=== PATIENT | female | born 1945 | race Caucasian/White ===

== ENCOUNTER 2016-09-21 21:23 | Inpatient (IN) | payer OTHER ==
[~2016-09-21] VITALS: Ht 160 cm; Wt 88.2 kg
[2016-09-21] MEDS ORDERED: METHYLPREDNISOLONE 125 MG VIAL IV STA (21:33)
--- NOTE | 2016-09-21 21:41 | EMERGENCY ROOM VISIT NOTE ---
History Report prepared by Bianka: Jeanine Martinez Under the Supervision of: Dr. Larry Moore D.O. First contact with patient: 21:28 Chief Complaint: SHORTNESS OF BREATH Stated Complaint: RESPIRATORY DISTRESS W/CPAP Nursing Triage Summary: sob started today History of Present Illness The patient is a 71 year old female who presents to the Emergency Room via ALS with complaints of worsening SOB starting earlier today ASSISTANT TO THE DIRECTOR. HPI is limited due to dyspnea. The patient stated that she was released from [facility] 5 days ago for respiratory problems. The patient states that she has some rib pain but denies any abdominal pain or new leg swelling recently. She states she has a history of COPD and CHF. Source of History: patient History Limited By: dyspnea Onset: earlier today ASSISTANT TO THE DIRECTOR Position: other (global ) Timing: worsening Associated Symptoms: No abdominal pain Note: Associated symptoms: rib pain Review of Systems See HPI for pertinent positives & negatives. A total of 10 systems reviewed and were otherwise negative. Past Medical & Surgical Medical Problems: (1) Acid reflux (2) CHF (congestive heart failure) (3) COPD (chronic obstructive pulmonary disease) (4) Meningitis (5) Ovarian cancer Family History No pertient family history secondary to age Social History Smoking Status: Former Smoker (quit 4 years ago) Smokeless Tobacco Use: No Alcohol Use: none Drug Use: none Housing Status: lives with family Current/Historical Medications Scheduled Calcium Carbonate-Cholecalcife (Oyster Shell Calcium + D), 1 TAB PO QAM Clonazepam (Clonazepam), 0.5 MG PO NOON Fluticasone Propionate (Nasal) (Flonase Allergy Relief), 1 SPRAY NA DAILY Furosemide (Lasix), 20 MG PO QAM Gabapentin (Neurontin), 300 MG PO BID Ipratropium-Albuterol (Duoneb), 1 TREATMENT INH QID Levothyroxine Sodium (Synthroid), 25 MCG PO QAM Meloxicam (Meloxicam), 7.5 MG PO BID Metformin Hcl (Glucophage), 500 MG PO BID Mirtazapine (Remeron), 45 MG PO HS Mometasone Furoate-Formoterol (Dulera 200/5 Mcg), 1 PUFF INH BID Montelukast Sodium (Singulair), 10 MG PO HS Multiple Vitamins W/ Iron (Multi Vitamin with Iron), 1 TAB PO QAM Pantoprazole (Protonix), 40 MG PO QAM Potassium Chloride (Klor-Con M20), 20 MEQ PO BID Quetiapine Fumarate (Seroquel), 400 MG PO HS Ranitidine (Zantac), 150 MG PO QPM Tiotropium [place] (Spiriva Handihaler), 1 CAP INH DAILY Warfarin Sod (Coumadin), 2.5 MG PO DAILY@1800 Warfarin Sodium (Coumadin), 4 MG PO DAILY@1800 Allergies Coded Allergies: Rabies Vaccine (Unverified Allergy, Severe, HIVES, 09/21/16) Ragweed (Unverified Allergy, Unknown, UNKNOWN, 09/21/16) Tomato (Unverified Allergy, Unknown, HIVES, 09/21/16) Physical Exam Vital Signs Date Time Temp Pulse Resp B/P Pulse Ox O2 Delivery O2 Flow Rate FiO2 09/21/16 23:01 91 09/21/16 22:32 137/51 100 Nebulizer 09/21/16 22:28 90 17 100 09/21/16 22:23 98 24 09/21/16 21:58 96 Nasal Cannula 3.0 09/21/16 21:53 74 19 100 09/21/16 21:51 73 22 95 Room Air 09/21/16 21:32 78 09/21/16 21:28 36.9 78 18 146/91 95 Room Air 09/21/16 21:28 Room Air 09/21/16 21:28 96 Room Air 09/21/16 21:26 146/91 Physical Exam GENERAL: Patient is awake, alert, very anxious appearing. EYES: The conjunctivae are clear. The pupils are round and reactive. EARS, NOSE, MOUTH AND THROAT: The nose is without any evidence of any deformity. Mucous membranes are moist tongue is midline NECK: The neck is nontender and supple. RESPIRATORY: Lung sounds diminished throughout, expiratory wheezing throughout. Significant purse lip breathing with severe conversation dyspnea. CARDIOVASCULAR: Tachycardic but regular rhythm noted with no definite murmurs noted. GASTROINTESTINAL: The abdomen is soft. Bowel sounds are present in all quadrants. Abdomen is nontender MUSCULOSKELETAL/EXTREMITIES: There is no evidence of gross deformity full range of motion is noted in the hips and shoulders SKIN: There is no obvious evidence of any rash. There are no petechiae, pallor or cyanosis noted. Pedal edema bilaterally. NEUROLOGIC: Patient is awake alert and oriented x3 RECTAL: reveals brown stool that was heme negative. Medical Decision & Procedures ER Provider Diagnostic Interpretation: X-ray results as stated below per interpretation by me and the radiologist. CHEST ONE VIEW PORTABLE CLINICAL HISTORY: Respiratory distress. Dyspnea. COMPARISON STUDY: No previous studies for comparison. FINDINGS: Lung volumes are normal. There is no pneumothorax or pleural effusion. Apparent hazy bibasilar opacities are likely artifactual. Cardiac size is normal. Mediastinal contours are normal. There is no evidence of pulmonary edema. IMPRESSION: 1. No acute cardiopulmonary findings. 2. Apparent hazy bibasilar opacities which likely reflect artifact or atelectasis. Electronically signed by: Rick Canchola M.D. 09/21/2016 9:57 PM Dictated Date/Time: 09/21/2016 9:56 PM Laboratory Results 09/21/16 21:34 Red Blood Count 3.38, Mean Corpuscular Volume 82.2, Mean Corpuscular Hemoglobin 24.9, Mean Corpuscular Hemoglobin Concent 30.2, Mean Platelet Volume 8.6, Neutrophils (%) (Auto) 52.1, Lymphocytes (%) (Auto) 29.3, Monocytes (%) (Auto) 8.8, Eosinophils (%) (Auto) 9.1, Basophils (%) (Auto) 0.5, Neutrophils # (Auto) 4.56, Lymphocytes # (Auto) 2.57, Monocytes # (Auto) 0.77, Eosinophils # (Auto) 0.80, Basophils # (Auto) 0.04 09/21/16 21:34 Test 09/21/16 21:34 09/21/16 21:59 White Blood Count 8.76 K/uL (4.8-10.8) Red Blood Count 3.38 M/uL (4.2-5.4) Hemoglobin 8.4 g/dL (12.0-16.0) Hematocrit 27.8 % (37-47) Mean Corpuscular Volume 82.2 fL (80-100) Mean Corpuscular Hemoglobin 24.9 pg (25-34) Mean Corpuscular Hemoglobin Concent 30.2 g/dl (32-36) Platelet Count 327 K/uL (130-400) Mean Platelet Volume 8.6 fL (7.4-10.4) Neutrophils (%) (Auto) 52.1 % Lymphocytes (%) (Auto) 29.3 % Monocytes (%) (Auto) 8.8 % Eosinophils (%) (Auto) 9.1 % Basophils (%) (Auto) 0.5 % Neutrophils # (Auto) 4.56 K/uL (1.4-6.5) Lymphocytes # (Auto) 2.57 K/uL (1.2-3.4) Monocytes # (Auto) 0.77 K/uL (0.11-0.59) Eosinophils # (Auto) 0.80 K/uL (0-0.5) Basophils # (Auto) 0.04 K/uL (0-0.2) RDW Standard Deviation 50.7 fL (36.4-46.3) RDW Coefficient of Variation 16.9 % (11.5-14.5) Immature Granulocyte % (Auto) 0.2 % Immature Granulocyte # (Auto) 0.02 K/uL (0.00-0.02) Red Blood Cell Morphology Unremarkable Prothrombin Time 22.6 SECONDS (9.0-12.0) Prothromb Time International Ratio 2.0 (0.9-1.1) Activated Partial Thromboplast Time 31.9 SECONDS (21.0-31.0) Partial Thromboplastin Ratio 1.2 Anion Gap 9.0 mmol/L (3-11) Est Creatinine Clear Calc Drug Dose 56.1 ml/min Estimated GFR () 67.6 Estimated GFR (Non- 58.3 BUN/Creatinine Ratio 24.0 (10-20) Calcium Level 8.9 mg/dl (8.5-10.1) Total Bilirubin 0.2 mg/dl (0.2-1) Aspartate Amino Transf (AST/SGOT) 18 U/L (15-37) Alanine Aminotransferase (ALT/SGPT) 25 U/L (12-78) Alkaline Phosphatase 86 U/L (45-117) Troponin I < 0.015 ng/ml (0-0.045) Pro-B-Type Natriuretic Peptide 80 pg/ml (0-900) Total Protein 6.4 gm/dl (6.4-8.2) Albumin 3.2 gm/dl (3.4-5.0) Globulin 3.2 gm/dl (2.5-4.0) Albumin/Globulin Ratio 1.0 (0.9-2) Venous Blood pH 7.41 (7.36-7.41) Venous Blood Partial Pressure CO2 52 mmHg (38.0-50.0) Venous Blood Partial Pressure O2 91 mmHg Venous Blood HCO3 32 mmol/L Venous Blood Oxygen Saturation 96.0 % Venous Blood Base Excess 6.9 mmol/L Laboratory results per my review. Medications Administered Medications (Trade) Dose Ordered Sig/Lulú Route Start Time Stop Time Status Last Admin Dose Admin Albuterol/ Ipratropium (Duoneb) 12 ml ONE ONCE INH 09/21/16 21:45 09/21/16 21:46 DC 09/21/16 21:45 12 ML Methylprednisolone Sodium Succinate (Solu-Medrol IV) 125 mg NOW STAT IV 09/21/16 21:33 09/21/16 21:34 DC 09/21/16 21:49 125 MG ECG Indication: SOB/dyspnea Rate (beats per minute): 78 Rhythm: sinus rhythm Findings: no acute ischemic change, no ectopy Comparison ECG Date: no prior available ED Course 2123: The patient was evaluated in room B1. A complete history and physical examination were performed. 2132: Ordered Solu-Medrol IV 125 mg IV. 2144:Ordered Duoneb 12 ml INH. 2222: I discussed the case with Dr. Jaymie SPEAR Hospitalist. He agreed to evaluate the patient for further management and care. Medical Decision Differential diagnosis: Etiologies such as infections, reactive airway disease, pneumonia, pneumothorax , COPD, CHF, cardiac ischemia, pulmonary embolism, musculoskeletal, gastrointestinal, as well as others were entertained. Nursing notes reviewed. Additional history is obtained from the prehospital personnel. The patient is a 71-year-old female who presented to the emergency department for an evaluation of shortness of breath. The patient has a history of COPD and was having severe shortness of breath. She was found have hypoxia by the prehospital personnel prior to arrival. She was placed on BiPAP and given a nebulizer treatment. Upon arrival her oxygen saturation had improved but she still had significant respiratory distress. The patient was further treated with bronchodilator therapy as well as IV Solu-Medrol. On reevaluation she had significantly improved. I discussed the patient's laboratory and radiographic studies with her. She had no signs of pneumonia. She had no fever or elevated white blood cell count. She was found have anemia which could be adding to her shortness of breath but her rectal exam revealed heme negative stool. The patient was resting much more comfortably. I discussed her case with the on- call [facility] hospitalist group. They have agreed to evaluate the patient in the emergency apartment for further management and disposition. Consults Time Called: 2224 Consulting Physician: Dr. Jaymie SPEAR Hospitalist Returned Call: [phone] I discussed the case with Dr. Jaymie SPEAR Hospitalist. He agreed to evaluate the patient for further management and care. Impression Primary Impression: COPD exacerbation Additional Impressions: Hypoxia, Anemia Scribe Attestation The scribe's documentation has been prepared under my direction and personally reviewed by me in its entirety. I confirm that the note above accurately reflects all work, treatment, procedures, and medical decision making performed by me. Departure Information Dispostion Being Evaluated By Hospitalist Referrals No Doctor, Assigned (PCP)
[2016-09-21] MEDS ORDERED: ALBUT/IPRATROP 3MG/0.5MG NEB 3 ML VIAL INH ONE (21:45)
[2016-09-21 21:51] VITALS: PULSE 73; O2SAT 95
[2016-09-21 21:51] LABS: BASO % 0.5 %; BASO ABS # 0.04 K/uL (0-0.2); EOS % 9.1 %; HEMATOCRIT 27.8 % (37-47); IG% 0.2 %; LYMPH % 29.3 %; LYMPH ABS # 2.57 K/uL (1.2-3.4); MEAN CELL VOLUME 82.2 fL (80-100); MEAN CORPUSCULAR HEMOGLOBIN 24.9 pg (25-34); MEAN CORPUSCULAR HGB CONC 30.2 g/dl (32-36); MEAN PLATELET VOLUME 8.6 fL (7.4-10.4); MONO % 8.8 %; NEUT % 52.1 %; PLATELET COUNT 327 K/uL (130-400); RED BLOOD COUNT 3.38 M/uL (4.2-5.4); WHITE BLOOD COUNT 8.76 K/uL (4.8-10.8)
--- NOTE | 2016-09-21 21:59 | DIAGNOSTIC IMAGING REPORT ---
CHEST ONE VIEW PORTABLE CLINICAL HISTORY: Respiratory distress. Dyspnea. COMPARISON STUDY: No previous studies for comparison. FINDINGS: Lung volumes are normal. There is no pneumothorax or pleural effusion. Apparent hazy bibasilar opacities are likely artifactual. Cardiac size is normal. Mediastinal contours are normal. There is no evidence of pulmonary edema. IMPRESSION: 1. No acute cardiopulmonary findings. 2. Apparent hazy bibasilar opacities which likely reflect artifact or atelectasis. Electronically signed by: Rick Canchola M.D. 09/21/2016 9:57 PM Dictated Date/Time: 09/21/2016 9:56 PM
[2016-09-21 22:08] LABS: ALT/SGPT 25 U/L (12-78); BLOOD UREA NITROGEN 23 mg/dl (7-18); CALCIUM 8.9 mg/dl (8.5-10.1); CARBON DIOXIDE 32 mmol/L (21-32); CHLORIDE 104 mmol/L (98-107); CREATININE 0.97 mg/dl (0.60-1.20); GLUCOSE 159 mg/dl (70-99); POTASSIUM 3.7 mmol/L (3.5-5.1); SODIUM 145 mmol/L (136-145)
[2016-09-21 22:10] LABS: PARTIAL THROMBOPLASTIN RATIO 1.2; PROTHROMBIN TIME (PATIENT) 22.6 SECONDS (9.0-12.0)
[2016-09-21 22:11] LABS: VEN BLOOD GAS BASE EXCESS 6.9 mmol/L
[2016-09-21 22:13] LABS: ALKALINE PHOSPHATASE 86 U/L (45-117); AST/SGOT 18 U/L (15-37)
[2016-09-21 22:28] LABS: COMPLETE YES
[2016-09-21] MEDS ORDERED: MBC75 PO (23:05)
[2016-09-21] MEDS ORDERED: IPRASOL4 INH (23:05)
[2016-09-21] MEDS ORDERED: PANT40TA PO (23:05)
[2016-09-21] MEDS ORDERED: WARF4TAB PO (23:05)
[2016-09-21] MEDS ORDERED: GABA-113 PO (23:05)
[2016-09-21] MEDS ORDERED: QUET400T PO (23:05)
[2016-09-21] MEDS ORDERED: GLC/500 PO (23:05)
[2016-09-21] MEDS ORDERED: ZNTT/150 PO (23:05)
[2016-09-21] MEDS ORDERED: MCRK20 PO (23:05)
[2016-09-21] MEDS ORDERED: LEVO25TA PO (23:05)
[2016-09-21] MEDS ORDERED: MOME200A INH (23:05)
[2016-09-21] MEDS ORDERED: FLUT0.15 NAE (23:05)
[2016-09-21] MEDS ORDERED: MULT-1028 PO (23:05)
[2016-09-21] MEDS ORDERED: KLN5 PO (23:05)
[2016-09-21] MEDS ORDERED: MONT1TAB3 PO (23:05)
[2016-09-21] MEDS ORDERED: MIRT45TA PO (23:05)
[2016-09-21] MEDS ORDERED: CALC-211 PO (23:05)
[2016-09-21] MEDS ORDERED: FURO-85 PO (23:05)
[2016-09-21] MEDS ORDERED: CMD/25 PO (23:05)
[2016-09-21] MEDS ORDERED: SPRIN/30 INH (23:05)
[2016-09-21] MEDS ORDERED: QUET1TAB13 PO (23:06)
[2016-09-21] MEDS ORDERED: MoRPHine SULFATE 2 MG/ML CARP IV PRN (23:15)
[2016-09-21] MEDS ORDERED: POLYETHYLENE (MIRALAX) 17 GM PACK PO PRN (23:15)
[2016-09-21] MEDS ORDERED: NITROGLYCERIN 0.4 MG SL PER TAB CHARGE SL PRN (23:15)
[2016-09-21] MEDS ORDERED: ACETAMINOPHEN 325 MG TAB PO PRN (23:15)
[2016-09-21] MEDS ORDERED: ONDANSETRON INJ 2 MG/ML 2 ML VIAL IV PRN (23:15)
[2016-09-21] MEDS ORDERED: ALUMINUM/MAGNESIUM/SIMETH (MAALOX MAX) 30 ML UDC PO PRN (23:15)
[2016-09-21] MEDS ORDERED: MAGNESIUM HYDROXIDE SUSP 30 ML UDC PO PRN (23:15)
--- NOTE | 2016-09-21 23:49 | History and Physical ---
History & Physical Date & Time of Service: Sep 21, 2016 at 23:19 Chief Complaint: Respiratory Distress W/Cpap Primary Care Physician: No Doctor, Assigned History of Present Illness Source: patient 71 y/o F Hx, CHF, CAD, PEs, 02-dependent COPD. Pt states she has been to [facility] several times recently for COPD exacerbations. She has returned home only to worsen within a few days. Tonight she again became progressively SOB and called EMS. She appeared distressed with an 02 in the high 80s and was placed on Bipap and transported to [facility] - the family having requested not to return to [place]. She denies CP, denies a fever. She has a chronic productive cough. Following an hour-long neb, she is not requiring Bipap at the time of admission. Past Medical/Surgical History Medical Problems: (1) Acid reflux Status: Chronic (2) CHF (congestive heart failure) Status: Chronic - diagnosed 04/29 - no echo report available (3) COPD (chronic obstructive pulmonary disease) Status: Chronic Dependent on 2L 02 continuous (4) Meningitis Status: Resolved (5) Ovarian cancer Status: Resolved 6) PEs 06/29 - on coumadin 7) Hypothyroid 8) NIDDM Family History No pertient family history secondary to age Both parents owing to MIs Social History Pt quit smoking 2011 - 30+ pack year Hx - denies ETOH - maintains independence - daughters participate in care Smoking Status: Former Smoker (quit 4 years ago) Smokeless Tobacco Use: No Drug Use: none Allergies Coded Allergies: Rabies Vaccine (Unverified Allergy, Severe, HIVES, 09/21/16) Ragweed (Unverified Allergy, Unknown, UNKNOWN, 09/21/16) Tomato (Unverified Allergy, Unknown, HIVES, 09/21/16) Home Medications Scheduled Calcium Carbonate-Cholecalcife (Oyster Shell Calcium + D), 1 TAB PO QAM Clonazepam (Clonazepam), 0.5 MG PO NOON Fluticasone Propionate (Nasal) (Flonase Allergy Relief), 1 SPRAY NA DAILY Furosemide (Lasix), 20 MG PO QAM Gabapentin (Neurontin), 300 MG PO BID Ipratropium-Albuterol (Duoneb), 1 TREATMENT INH QID Levothyroxine Sodium (Synthroid), 25 MCG PO QAM Meloxicam (Meloxicam), 7.5 MG PO BID Metformin Hcl (Glucophage), 500 MG PO BID Mirtazapine (Remeron), 45 MG PO HS Mometasone Furoate-Formoterol (Dulera 200/5 Mcg), 1 PUFF INH BID Montelukast Sodium (Singulair), 10 MG PO HS Multiple Vitamins W/ Iron (Multi Vitamin with Iron), 1 TAB PO QAM Pantoprazole (Protonix), 40 MG PO QAM Potassium Chloride (Klor-Con M20), 20 MEQ PO BID Quetiapine Fumarate (Seroquel), 400 MG PO HS Ranitidine (Zantac), 150 MG PO QPM Tiotropium [place] (Spiriva Handihaler), 1 CAP INH DAILY Warfarin Sod (Coumadin), 2.5 MG PO DAILY@1800 Warfarin Sodium (Coumadin), 4 MG PO DAILY@1800 Review of Systems Constitutional: No chills, No fever Eyes: No worsening of vision ENT: No hearing loss, No nasal symptoms, No unusual epistaxis Respiratory: + cough, + dyspnea at rest, + dyspnea on exertion, + shortness of breath, + sputum, + wheezing Cardiovascular: No PND, No chest pain, No orthopnea Abdomen: No nausea, No pain, No vomiting Musculoskeletal: No joint pain Genitourinary - Female: No dysuria, No urinary frequency, No urinary urgency Neurologic: No memory loss Psychiatric: No depression symptoms Endocrine: No fatigue Hematologic / Lymphatic: No abnormal bleeding/bruising Integumentary: No rash Allergic / Immunologic: No environmental allergies Physical Exam Vital Signs Date Time Temp Pulse Resp B/P Pulse Ox O2 Delivery O2 Flow Rate FiO2 09/21/16 23:01 91 09/21/16 22:32 137/51 100 Nebulizer 09/21/16 22:28 90 17 100 09/21/16 22:23 98 24 09/21/16 21:58 96 Nasal Cannula 3.0 09/21/16 21:53 74 19 100 09/21/16 21:51 73 22 95 Room Air 09/21/16 21:32 78 09/21/16 21:28 36.9 78 18 146/91 95 Room Air 09/21/16 21:28 Room Air 09/21/16 21:28 96 Room Air 09/21/16 21:26 146/91 General Appearance: WD/WN, + pertinent finding (Overweight elderly female - comlpleteing sentences - no overt distress) Head: normocephalic, atraumatic Eyes: normal inspection ENT: normal ENT inspection, pharynx normal Neck: supple, no JVD Respiratory/Chest: chest non-tender, + decreased breath sounds, + wheezing Cardiovascular: regular rate, rhythm, no JVD, no murmur Abdomen/GI: normal bowel sounds, non tender, soft Back: normal inspection, no CVA tenderness, no muscle spasm, normal range of motion Extremities/Musculoskelatal: normal inspection, normal range of motion Neurologic/Psych: driver guard II-XII nml as tested, no motor/sensory deficits, alert, normal mood/affect, normal reflexes, oriented x 3 Skin: normal color, warm/dry, no rash Diagnostics Laboratory Results Results Past 24 Hours Test 09/21/16 21:34 09/21/16 21:59 Range/Units White Blood Count 8.76 4.8-10.8 K/uL Red Blood Count 3.38 4.2-5.4 M/uL Hemoglobin 8.4 12.0-16.0 g/dL Hematocrit 27.8 37-47 % Mean Corpuscular Volume 82.2 80-100 fL Mean Corpuscular Hemoglobin 24.9 25-34 pg Mean Corpuscular Hemoglobin Concent 30.2 32-36 g/dl Platelet Count 327 130-400 K/uL Mean Platelet Volume 8.6 7.4-10.4 fL Neutrophils (%) (Auto) 52.1 % Lymphocytes (%) (Auto) 29.3 % Monocytes (%) (Auto) 8.8 % Eosinophils (%) (Auto) 9.1 % Basophils (%) (Auto) 0.5 % Neutrophils # (Auto) 4.56 1.4-6.5 K/uL Lymphocytes # (Auto) 2.57 1.2-3.4 K/uL Monocytes # (Auto) 0.77 0.11-0.59 K/uL Eosinophils # (Auto) 0.80 0-0.5 K/uL Basophils # (Auto) 0.04 0-0.2 K/uL RDW Standard Deviation 50.7 36.4-46.3 fL RDW Coefficient of Variation 16.9 11.5-14.5 % Immature Granulocyte % (Auto) 0.2 % Immature Granulocyte # (Auto) 0.02 0.00-0.02 K/uL Red Blood Cell Morphology Unremarkable Prothrombin Time 22.6 9.0-12.0 SECONDS Prothromb Time International Ratio 2.0 0.9-1.1 Activated Partial Thromboplast Time 31.9 21.0-31.0 SECONDS Partial Thromboplastin Ratio 1.2 Sodium Level 145 136-145 mmol/L Potassium Level 3.7 3.5-5.1 mmol/L Chloride Level 104 98-107 mmol/L Carbon Dioxide Level 32 21-32 mmol/L Anion Gap 9.0 3-11 mmol/L Blood Urea Nitrogen 23 7-18 mg/dl Creatinine 0.97 0.60-1.20 mg/dl Est Creatinine Clear Calc Drug Dose 56.1 ml/min Estimated GFR () 67.6 Estimated GFR (Non- 58.3 BUN/Creatinine Ratio 24.0 10-20 Random Glucose 159 70-99 mg/dl Calcium Level 8.9 8.5-10.1 mg/dl Total Bilirubin 0.2 0.2-1 mg/dl Aspartate Amino Transf (AST/SGOT) 18 15-37 U/L Alanine Aminotransferase (ALT/SGPT) 25 12-78 U/L Alkaline Phosphatase 86 45-117 U/L Troponin I < 0.015 0-0.045 ng/ml Pro-B-Type Natriuretic Peptide 80 0-900 pg/ml Total Protein 6.4 6.4-8.2 gm/dl Albumin 3.2 3.4-5.0 gm/dl Globulin 3.2 2.5-4.0 gm/dl Albumin/Globulin Ratio 1.0 0.9-2 Venous Blood pH 7.41 7.36-7.41 Venous Blood Partial Pressure CO2 52 38.0-50.0 mmHg Venous Blood Partial Pressure O2 91 mmHg Venous Blood HCO3 32 mmol/L Venous Blood Oxygen Saturation 96.0 % Venous Blood Base Excess 6.9 mmol/L Microbiology Results 09/21/16 Blood Culture, Received Pending 09/21/16 Blood Culture, Received Pending Impression Assessment and Plan 71 y/o F Hx, CHF, CAD, PEs, 02-dependent COPD. Pt states she has been to [facility] several times recently for COPD exacerbations. She has returned home only to worsen within a few days. Tonight she again became progressively SOB and called EMS. She appeared distressed with an 02 in the high 80s and was placed on Bipap and transported to [facility] - the family having requested not to return to [place]. She denies CP, denies a fever. She has a chronic productive cough. Following an hour-long neb, she is not requiring Bipap at the time of admission. 1) COPD exacerbation - Maintaining sat after hour-long neb, steroids and Bipap - ABG shows C02 retention with normal PH so that this is likely chronic. Considering her habitus she may also suffer from occult VIJAY. We will admit the pt to telemetry - treat with Solumedrol, Duonebs/PRN Albuterol , Abx - would make an effort to contact her lidar scientist AM as she reports several recent hospital visit and further workup such as a CT chest might be avoided if recently obtained. 2) CHF - cont Lasix - no evidence of volume overload at present - does not know type or extent - can be obtained from PCP likely as [place] was apparently unhelpful with records this evening. 3) Recent PEs - pt on Coumadin - INR is therapeutic 4) NIDDM - placed on SS due to steroid use in hospital 5) Hypothyroid - cont synthroid 6) Gerd - takes protonix and Ranitidine - continued Full code -- Coumadin prophylaxis/PE treatment Total time for this admit including review of records, meds, labs, imaging - discussion with pt and family - pt exam - 43 min Level of Care Telemetry Resuscitation Status FULL RESUSCITATION VTE Prophylaxis VTE Risk Assessment Done? Y/N: Yes Risk Level: Moderate Given or contraindicated: Warfarin (Coumadin)
[2016-09-22] VITALS (16 sets, daily range): BP systolic 115–157; BP diastolic 53–82; PULSE 70–111; TEMP 36.6–37.1; O2SAT 91–99; BMI 35.5
[2016-09-22] MEDS: ALBUTEROL 0.083% NEBU SOLN 3 ML VIAL INH PRN ×3 (01:01→23:52)
[2016-09-22] MEDS ORDERED: GLUCOSE 10 TABS/TUBE PO PRN (02:15)
[2016-09-22] MEDS ORDERED: GLUCAGON FOR INJ 1 MG VIAL SQ PRN (02:15)
[2016-09-22] MEDS ORDERED: DEXTROSE 50% 50 ML SYR IV PRN (02:15)
[2016-09-22] MEDS ORDERED: GLUCOSE 40% GEL 15 GM TUBE PO PRN (02:15)
[2016-09-22] MEDS ORDERED: LEVOFLOXACIN / D5W 500 MG in PREMIXED IN D5W 100 ML IV SCH (03:00)
[2016-09-22] MEDS: METHYLPREDNISOLONE IV 60 MG in SYRINGE 0 ML IV SCH ×4 (03:12→21:32)
[2016-09-22] MEDS: LEVOTHYROXINE 25 MCG TAB PO SCH (06:19)
[2016-09-22 06:35] LABS: HEMATOCRIT 29.5 % (37-47); MEAN CELL VOLUME 81.7 fL (80-100); MEAN CORPUSCULAR HEMOGLOBIN 25.5 pg (25-34); MEAN CORPUSCULAR HGB CONC 31.2 g/dl (32-36); MEAN PLATELET VOLUME 8.9 fL (7.4-10.4); PLATELET COUNT 367 K/uL (130-400); RED BLOOD COUNT 3.61 M/uL (4.2-5.4); WHITE BLOOD COUNT 8.34 K/uL (4.8-10.8)
[2016-09-22 06:43] LABS: PROTHROMBIN TIME (PATIENT) 22.2 SECONDS (9.0-12.0)
[2016-09-22 07:05] LABS: BUN/CREATININE RATIO 19.5 (10-20); CALCIUM 8.9 mg/dl (8.5-10.1); CREATININE 0.99 mg/dl (0.60-1.20); MAGNESIUM 1.7 mg/dl (1.8-2.4)
[2016-09-22] MEDS: ALBUT/IPRATROP 3MG/0.5MG NEB 3 ML VIAL INH SCH ×4 (07:20→19:06)
[2016-09-22] MEDS: MELOXICAM 7.5 MG TAB PO SCH ×2 (08:54→21:36)
[2016-09-22] MEDS: PANTOprazole SOD 40 MG TAB PO SCH (08:54)
[2016-09-22] MEDS: POTASSIUM CHLORIDE 20 MEQ TABCR PO SCH ×2 (08:55→21:35)
[2016-09-22] MEDS: GABAPENTIN 300 MG CAP PO SCH ×2 (08:55→21:37)
[2016-09-22] MEDS: FLUTICASONE PROPIONATE NA SPR 16 GM BTL SCH (08:56)
[2016-09-22] MEDS ORDERED: FUROSEMIDE 20 MG TAB PO SCH (09:00)
[2016-09-22] MEDS: CLONAZEPAM 0.5 MG TAB PO SCH (09:05)
[2016-09-22] MEDS: INSULIN ASPART 100 UNITS/ML 3 ML PEN SC SCH ×4 (09:10→21:43)
[2016-09-22 09:41] LABS: URINE APPEARANCE CLOUDY (CLEAR); URINE BILIRUBIN NEG (NEG); URINE COLOR YELLOW; URINE EPITHELIAL CELL AUTO 20-30 /lpf (0-5); URINE NITRITE NEG (NEG); URINE SPECIFIC GRAVITY 1.026 (1.000-1.030); UROBILINOGEN NEG (NEG)
[2016-09-22 09:42] LABS: MANUAL MICROSCOPIC REQUIRED? NO; REVIEW REQ? NO
--- NOTE | 2016-09-22 10:54 | Clinical Documentation Query ---
CLINICAL DOCUMENTATION QUERY 71-y/o female who presents acute hypoxic respiratory failure from COPD exacerbation and CHF.. Medical record has documented hx of CHF w/o specificity. The medical record documentation is now expected to include definitive and explicit description of the patient's heart failure; vague terms such as "heart failure," ventricular dysfunction," and "CHF" may not fully capture the physician's intended level of severity. In your clinical opinion is this patient being managed for: ( x ) Early Acute on chronic diastolic heart failure treated with increase in PO Lasix dosing ( ) Early Acute on chronic systolic CHF treated with increase in PO Lasix dosing ( ) Other explanation of clinical findings (Please Explain) ( ) Unable to determine (Please Define) ( ) Need to Discuss ( ) Not Agree The medical record reflects the following clinical findings, treatment, and risk factors. Clinical Indicators: Per H&P CHF. 08/22 Progress note states, "seems to have sl pulmonary edema (CXR w fluid on fissure, having some orthopnea)." Then summarizes acute hypoxic respiratory failure from COPD and CHF. Treatment: PO Lasix with increase in dose and NOW order, telemetry, I/O's, daily weights, Echo Risk Factors: Age, Afib, CAD, Please clarify and document your clinical opinion in the progress notes and discharge summary. Terms such as "probable", "suspected", "likely", "questionable", "possible", or "still to be ruled out" are acceptable. IF IN AGREEMENT, YOU MUST DOCUMENT ABOVE DIAGNOSTIC STATEMENT IN DAILY PROGRESS NOTES AND DISCHARGE SUMMARY. This document is not part of the patient's record. Thank You, Dale Magana, KAM [phone]
--- NOTE | 2016-09-22 11:44 | Medical Student: [facility] ---
Med Student Progress Note Date of Service Sep 22, 2016. Subjective Pt evaluation today including: conversation w/ patient, physical exam, chart review, lab review, review of studies Pain: no pain reported Patient reports being in and out of [facility] since April of 2016. She rarely has been able to spend more than a week at home before returning to the hospital for shortness of breath. She was admitted her last night for shortness of breath. Since admission and receiving some treatments, she reports feeling less SOB today. She still has dyspnea on exertion, even just moving around in bed or going to the bathroom. Reports that her dyspnea is worse at night. Sleeps upright in a chair due to CHF. She is also complaining of some fullness of the sinuses and chest tightness. She thinks this might be some kind of illness. She also complains of intermittent spells of "getting sick" for the past few months, with her last episode on night. She reports she will feel nausea and may vomit, as well as experiencing some episodes of diarrhea. At [facility] they told her it was a 24 hour stomach bug, but she wonders why she keeps getting the same symptoms. Complains of some swelling in the legs. Patient tearfully expressed her wish to be at home and get this sorted out so she does not have to return to the hospital so much. Review of Systems Constitutional: No fever, No weight loss Respiratory: + dyspnea at rest, + dyspnea on exertion, + shortness of breath, + wheezing Cardiac: + edema, + orthopnea Abdomen: + diarrhea, + nausea, + vomiting, No pain Objective Vital Signs Date Time Temp Pulse Resp B/P Pulse Ox O2 Delivery O2 Flow Rate FiO2 09/22/16 09:43 Nasal Cannula 3.0 09/22/16 09:41 36.8 82 22 132/80 94 Nasal Cannula 3.0 09/22/16 07:20 92 24 96 Nasal Cannula 2.0 09/22/16 04:51 36.8 91 20 144/82 94 2.0 09/22/16 04:00 Nasal Cannula 3.0 09/22/16 02:45 90 24 96 Nasal Cannula 2.0 09/22/16 01:01 105 24 96 Nasal Cannula 2.0 09/22/16 01:00 Nasal Cannula 3.0 09/22/16 00:52 36.7 111 20 157/76 93 3.0 09/22/16 00:06 105 20 171/87 95 09/21/16 23:01 91 09/21/16 22:32 137/51 100 Nebulizer 09/21/16 22:28 90 17 100 09/21/16 22:23 98 24 09/21/16 21:58 96 Nasal Cannula 3.0 09/21/16 21:53 74 19 100 09/21/16 21:51 73 22 95 Room Air 09/21/16 21:32 78 09/21/16 21:28 36.9 78 18 146/91 95 Room Air 09/21/16 21:28 Room Air 09/21/16 21:28 96 Room Air 09/21/16 21:26 146/91 Physical Exam General Appearance: + mild distress, + obese Eyes: bilateral eyes normal inspection Respiratory/Chest: chest non-tender, + respiratory distress (shortness of breath noted), + decreased breath sounds, + accessory muscle use, + wheezing ( diffuse, particularly accentuated in right lower lobe), + pertinent finding Cardiovascular: regular rate, rhythm, no JVD, no murmur Abdomen: normal bowel sounds, non tender, soft Extremities: + swelling (trace pitting edema right lower extremity, 1+ on left lower extremity) Neurologic/Psychiatric: alert, oriented x 3 Skin: normal color, warm/dry, no rash Laboratory Results Last 24 Hours Test 09/21/16 21:34 09/21/16 21:59 09/22/16 05:57 09/22/16 09:01 White Blood Count 8.76 K/uL 8.34 K/uL Red Blood Count 3.38 M/uL 3.61 M/uL Hemoglobin 8.4 g/dL 9.2 g/dL Hematocrit 27.8 % 29.5 % Mean Corpuscular Volume 82.2 fL 81.7 fL Mean Corpuscular Hemoglobin 24.9 pg 25.5 pg Mean Corpuscular Hemoglobin Concent 30.2 g/dl 31.2 g/dl Platelet Count 327 K/uL 367 K/uL Mean Platelet Volume 8.6 fL 8.9 fL Neutrophils (%) (Auto) 52.1 % Lymphocytes (%) (Auto) 29.3 % Monocytes (%) (Auto) 8.8 % Eosinophils (%) (Auto) 9.1 % Basophils (%) (Auto) 0.5 % Neutrophils # (Auto) 4.56 K/uL Lymphocytes # (Auto) 2.57 K/uL Monocytes # (Auto) 0.77 K/uL Eosinophils # (Auto) 0.80 K/uL Basophils # (Auto) 0.04 K/uL RDW Standard Deviation 50.7 fL 50.4 fL RDW Coefficient of Variation 16.9 % 16.8 % Immature Granulocyte % (Auto) 0.2 % Immature Granulocyte # (Auto) 0.02 K/uL Red Blood Cell Morphology Unremarkable Prothrombin Time 22.6 SECONDS 22.2 SECONDS Prothromb Time International Ratio 2.0 2.0 Activated Partial Thromboplast Time 31.9 SECONDS Partial Thromboplastin Ratio 1.2 Sodium Level 145 mmol/L 143 mmol/L Potassium Level 3.7 mmol/L 4.0 mmol/L Chloride Level 104 mmol/L 106 mmol/L Carbon Dioxide Level 32 mmol/L 26 mmol/L Anion Gap 9.0 mmol/L 11.0 mmol/L Blood Urea Nitrogen 23 mg/dl 19 mg/dl Creatinine 0.97 mg/dl 0.99 mg/dl Est Creatinine Clear Calc Drug Dose 56.1 ml/min 55.0 ml/min Estimated GFR () 67.6 66.0 Estimated GFR (Non- 58.3 56.9 BUN/Creatinine Ratio 24.0 19.5 Random Glucose 159 mg/dl 285 mg/dl Calcium Level 8.9 mg/dl 8.9 mg/dl Total Bilirubin 0.2 mg/dl Aspartate Amino Transf (AST/SGOT) 18 U/L Alanine Aminotransferase (ALT/SGPT) 25 U/L Alkaline Phosphatase 86 U/L Troponin I < 0.015 ng/ml Pro-B-Type Natriuretic Peptide 80 pg/ml Total Protein 6.4 gm/dl Albumin 3.2 gm/dl Globulin 3.2 gm/dl Albumin/Globulin Ratio 1.0 Venous Blood pH 7.41 Venous Blood Partial Pressure CO2 52 mmHg Venous Blood Partial Pressure O2 91 mmHg Venous Blood HCO3 32 mmol/L Venous Blood Oxygen Saturation 96.0 % Venous Blood Base Excess 6.9 mmol/L Magnesium Level 1.7 mg/dl Bedside Glucose 315 mg/dl Test 09/22/16 09:15 Urine Color YELLOW Urine Appearance CLOUDY Urine pH 5.0 Urine Specific [place] 1.026 Urine Protein NEG Urine Glucose (UA) 3+ Urine Ketones NEG Urine Occult Blood NEG Urine Nitrite NEG Urine Bilirubin NEG Urine Urobilinogen NEG Urine Leukocyte Esterase NEG Urine WBC (Auto) 1-5 /hpf Urine RBC (Auto) 0-4 /hpf Urine Hyaline Casts (Auto) 0 /lpf Urine Epithelial Cells (Auto) 20-30 /lpf Urine Bacteria (Auto) NEG Medications Current Inpatient Medications Medications (Trade) Dose Ordered Sig/Lulú Route Start Time Stop Time Status Last Admin Dose Admin Clonazepam (Klonopin Tab) 0.5 mg DAILY PO 09/22/16 09:00 10/22/16 08:59 09/22/16 09:05 0.5 MG Fluticasone Propionate (Flonase Nasal [place]) 2 sprays DAILY NA 09/22/16 09:00 10/22/16 08:59 09/22/16 08:56 2 SPRAYS Furosemide (Lasix tab) 20 mg QAM PO 09/22/16 09:00 10/22/16 08:59 09/22/16 08:55 20 MG Gabapentin (Neurontin Cap) 300 mg BID PO 09/22/16 09:00 10/22/16 08:59 09/22/16 08:55 300 MG Albuterol/ Ipratropium (Duoneb) 3 ml QIDR INH 09/22/16 08:00 10/22/16 07:59 09/22/16 07:20 3 ML Levothyroxine Sodium (Synthroid Tab) 25 mcg DAILYBB PO 09/22/16 06:30 10/22/16 06:29 09/22/16 06:19 25 MCG Meloxicam (Mobic Tab) 7.5 mg BID PO 09/22/16 09:00 10/22/16 08:59 09/22/16 08:54 7.5 MG Montelukast Sodium (Singulair Tab) 10 mg HS PO 09/22/16 21:00 10/22/16 20:59 Pantoprazole Sodium (Protonix Tab) 40 mg QAM PO 09/22/16 09:00 10/22/16 08:59 09/22/16 08:54 40 MG Potassium Chloride (Klor-Con Tab) 20 meq BID PO 09/22/16 09:00 10/22/16 08:59 09/22/16 08:55 20 MEQ Quetiapine Fumarate (seroQUEL XR TAB) 400 mg HS PO 09/22/16 21:00 10/22/16 20:59 Ranitidine HCl (zANTac TAB) 150 mg QPM PO 09/22/16 21:00 10/22/16 20:59 Warfarin Sodium (Coumadin Tab) 4 mg DAILY@1800 PO 09/22/16 18:00 10/22/16 17:59 Mirtazapine (Remeron Tab) 45 mg HS PO 09/22/16 21:00 10/22/16 20:59 Miscellaneous Information (Order Awaiting Action) 1 ea QS N/A 09/22/16 08:00 10/22/16 07:59 Albuterol Sulfate (Ventolin 0.083% 2.5MG/3ML Neb) 2.5 mg Q4H PRN INH 09/21/16 23:15 10/21/16 23:14 09/22/16 02:45 2.5 MG Acetaminophen (Tylenol Tab) 650 mg Q4H PRN PO 09/21/16 23:15 10/21/16 23:14 Al Hydrox/Mg Hydrox/Simethicone (Maalox Max Susp) 15 ml Q4H PRN PO 09/21/16 23:15 10/21/16 23:14 Magnesium Hydroxide (Milk Of Magnesia Susp) 30 ml Q12H PRN PO 09/21/16 23:15 10/21/16 23:14 Ondansetron HCl (Zofran Inj) 4 mg Q6H PRN IV 09/21/16 23:15 10/21/16 23:14 Nitroglycerin (Nitrostat Tab) 0.4 mg UD PRN SL 09/21/16 23:15 10/21/16 23:14 Morphine Sulfate (MoRPHine SULFATE INJ) 2 mg Q30M PRN IV 09/21/16 23:15 10/05/16 23:14 09/22/16 02:27 2 MG Polyethylene (Miralax Powder Packet) 17 gm DAILY PRN PO 09/21/16 23:15 10/21/16 23:14 Insulin Aspart SLIDING SCALE G... ACHS SC 09/22/16 06:30 10/22/16 06:59 09/22/16 09:10 4 UNITS Methylprednisolone Sodium Succinate 60 mg/Syringe 0.96 ml @ 1.5 mls/min Q6H IV 09/22/16 04:00 10/22/16 03:59 09/22/16 09:11 1.5 MLS/MIN Levofloxacin/Prmx (Levaquin / D5W/ Premixed D5W) 100 ml @ 100 mls/hr Q24H IV 09/22/16 03:00 09/29/16 02:59 09/22/16 03:12 100 MLS/HR Glucose (Glucose 40% Gel) 15-30 GRAMS 15 GRAMS... UD PRN PO 09/22/16 02:15 10/22/16 02:14 Glucose (Glucose Chew Tab) 4-8 Tablets 4 Tabl... UD PRN PO 09/22/16 02:15 10/22/16 02:14 Dextrose (Dextrose 50% 50ML Syringe) 25-50ML OF 50% DW IV FOR... UD PRN IV 09/22/16 02:15 10/22/16 02:14 Glucagon (Glucagon Inj) 1 mg UD PRN SQ 09/22/16 02:15 10/22/16 02:14 Assessment and Plan Assessment and Plan: 71 yo female with a hx of CHF, CAD, pulmonary emboli, and O2-dependent COPD who is here for an acute exacerbation of her COPD. 1. COPD exacerbation - still significantly impaired breathing, but improving following nebulizer treatments and IV steroids - Continue qid duoneb and IV methylprednisolone at 60 mg q6hrs until significant improvement, then begin taper - Continue albuterol q4hrs prn for SOB - Continue montelukast po - Continue levofloxacin for possible bronchitis in setting of COPD. - Continue supplemental O2. As breathing improves, wean as tolerated. 2. CHF - some evidence of fluid overload in lower extremities - Continue Lasix at current dose - compression for relief of edema and DVT prophylaxis 3. Pulmonary emboli - Continue coumadin for anticoagulation given current therapeutic INR 4. DM type 2- glucose fluctuating, most likely due to IV steroids - Sliding scale insulin protocol 5. GERD- well-controlled on protonix and ranitidine - Continue home doses Continued [facility] stay due to: multiple IV medications needed Discharge planning: uncertain
[2016-09-22] MEDS ORDERED: FUROSEMIDE 40 MG TAB PO ONE (15:30)
--- NOTE | 2016-09-22 17:32 | Progress Note ---
Subjective Date of Service: Sep 22, 2016. Subjective Pt evaluation today including: conversation w/ patient, physical exam, chart review, lab review, review of studies, review of inpatient medication list feeling better than this morning, and definitely better than yesterday notes short of breath all fall and winter- since april - but has been multiple things - COPD exac, CHF exac, PE. but is getting sick of being sick breathing still labored, but notes is improving. cough and wheeze. no f/c/s. doesn't recall the last time she had an echo - thinks probably 2-3 years ago when she had a pneumonia. relates PFT's sometime this fall. Problem List Medical Problems: (1) Anemia Status: Acute (2) COPD exacerbation Status: Acute (3) Hypoxia Status: Acute Review of Systems Constitutional: No chills, No fever, No sweats Respiratory: + cough, + shortness of breath, + wheezing ros otherwise negative except for as above Objective Vital Signs Date Time Temp Pulse Resp B/P Pulse Ox O2 Delivery O2 Flow Rate FiO2 09/22/16 15:55 70 20 97 Nasal Cannula 2.0 09/22/16 15:21 37.1 89 20 120/53 99 Nasal Cannula 2.0 09/22/16 11:44 83 24 95 Nasal Cannula 2.0 09/22/16 11:37 36.6 92 20 137/76 91 Nasal Cannula 2.0 09/22/16 09:43 Nasal Cannula 3.0 09/22/16 09:41 36.8 82 22 132/80 94 Nasal Cannula 3.0 09/22/16 07:20 92 24 96 Nasal Cannula 2.0 09/22/16 04:51 36.8 91 20 144/82 94 2.0 09/22/16 04:00 Nasal Cannula 3.0 09/22/16 02:45 90 24 96 Nasal Cannula 2.0 09/22/16 01:01 105 24 96 Nasal Cannula 2.0 09/22/16 01:00 Nasal Cannula 3.0 09/22/16 00:52 36.7 111 20 157/76 93 3.0 09/22/16 00:06 105 20 171/87 95 09/21/16 23:01 91 09/21/16 22:32 137/51 100 Nebulizer 09/21/16 22:28 90 17 100 09/21/16 22:23 98 24 09/21/16 21:58 96 Nasal Cannula 3.0 09/21/16 21:53 74 19 100 09/21/16 21:51 73 22 95 Room Air 09/21/16 21:32 78 09/21/16 21:28 36.9 78 18 146/91 95 Room Air 09/21/16 21:28 Room Air 09/21/16 21:28 96 Room Air 09/21/16 21:26 146/91 Physical Exam General Appearance: no apparent distress Eyes: EOMI ENT: hearing grossly normal Neck: trachea midline Respiratory/Chest: + decreased breath sounds, + wheezing Cardiovascular: regular rate, rhythm Extremities: normal range of motion Neurologic/Psychiatric: clin application specialist II-XII nml as tested, alert, normal mood/affect Comments: ost/MSK - L>R Tspine paraspinals and intercostals high tone/tender/decreased ROM - balanced ligamentous tension - improved. pt tolerated well Laboratory Results Last 24 Hours Test 09/21/16 21:34 09/21/16 21:59 09/22/16 05:57 09/22/16 09:01 White Blood Count 8.76 K/uL 8.34 K/uL Red Blood Count 3.38 M/uL 3.61 M/uL Hemoglobin 8.4 g/dL 9.2 g/dL Hematocrit 27.8 % 29.5 % Mean Corpuscular Volume 82.2 fL 81.7 fL Mean Corpuscular Hemoglobin 24.9 pg 25.5 pg Mean Corpuscular Hemoglobin Concent 30.2 g/dl 31.2 g/dl Platelet Count 327 K/uL 367 K/uL Mean Platelet Volume 8.6 fL 8.9 fL Neutrophils (%) (Auto) 52.1 % Lymphocytes (%) (Auto) 29.3 % Monocytes (%) (Auto) 8.8 % Eosinophils (%) (Auto) 9.1 % Basophils (%) (Auto) 0.5 % Neutrophils # (Auto) 4.56 K/uL Lymphocytes # (Auto) 2.57 K/uL Monocytes # (Auto) 0.77 K/uL Eosinophils # (Auto) 0.80 K/uL Basophils # (Auto) 0.04 K/uL RDW Standard Deviation 50.7 fL 50.4 fL RDW Coefficient of Variation 16.9 % 16.8 % Immature Granulocyte % (Auto) 0.2 % Immature Granulocyte # (Auto) 0.02 K/uL Red Blood Cell Morphology Unremarkable Prothrombin Time 22.6 SECONDS 22.2 SECONDS Prothromb Time International Ratio 2.0 2.0 Activated Partial Thromboplast Time 31.9 SECONDS Partial Thromboplastin Ratio 1.2 Sodium Level 145 mmol/L 143 mmol/L Potassium Level 3.7 mmol/L 4.0 mmol/L Chloride Level 104 mmol/L 106 mmol/L Carbon Dioxide Level 32 mmol/L 26 mmol/L Anion Gap 9.0 mmol/L 11.0 mmol/L Blood Urea Nitrogen 23 mg/dl 19 mg/dl Creatinine 0.97 mg/dl 0.99 mg/dl Est Creatinine Clear Calc Drug Dose 56.1 ml/min 55.0 ml/min Estimated GFR () 67.6 66.0 Estimated GFR (Non- 58.3 56.9 BUN/Creatinine Ratio 24.0 19.5 Random Glucose 159 mg/dl 285 mg/dl Calcium Level 8.9 mg/dl 8.9 mg/dl Total Bilirubin 0.2 mg/dl Aspartate Amino Transf (AST/SGOT) 18 U/L Alanine Aminotransferase (ALT/SGPT) 25 U/L Alkaline Phosphatase 86 U/L Troponin I < 0.015 ng/ml Pro-B-Type Natriuretic Peptide 80 pg/ml Total Protein 6.4 gm/dl Albumin 3.2 gm/dl Globulin 3.2 gm/dl Albumin/Globulin Ratio 1.0 Venous Blood pH 7.41 Venous Blood Partial Pressure CO2 52 mmHg Venous Blood Partial Pressure O2 91 mmHg Venous Blood HCO3 32 mmol/L Venous Blood Oxygen Saturation 96.0 % Venous Blood Base Excess 6.9 mmol/L Magnesium Level 1.7 mg/dl Bedside Glucose 315 mg/dl Test 09/22/16 09:15 Urine Color YELLOW Urine Appearance CLOUDY Urine pH 5.0 Urine Specific [place] 1.026 Urine Protein NEG Urine Glucose (UA) 3+ Urine Ketones NEG Urine Occult Blood NEG Urine Nitrite NEG Urine Bilirubin NEG Urine Urobilinogen NEG Urine Leukocyte Esterase NEG Urine WBC (Auto) 1-5 /hpf Urine RBC (Auto) 0-4 /hpf Urine Hyaline Casts (Auto) 0 /lpf Urine Epithelial Cells (Auto) 20-30 /lpf Urine Bacteria (Auto) NEG Assessment and Plan acute hypoxic respiratory failure -from COPD and CHF -improving COPD exacerbation - -slowly improving -continue scheduled and prn nebs -too soon to wean steroids -no infiltrate or leukocytosis - change levaquin to doxy -get record of PFTs CHF - seems to have sl pulmonary edema (CXR w fluid on fissure, having some orthopnea) -lasix 40mg PO now, increase daily dose to 40mg, follow status, follow BMP -echo Recent PEs - pt on Coumadin - INR is therapeutic, follow daily NIDDM - check A1c, transition to basal bolus. follow sugars Hypothyroid - cont synthroid Gerd - takes protonix and Ranitidine - continued hypomagnesemia - replete PO Continued [facility] stay due to: multiple IV medications needed Discharge planning: uncertain
[2016-09-22] MEDS: WARFARIN SOD 4 MG TAB PO SCH (17:56)
[2016-09-22] MEDS ORDERED: INSULIN GLARGINE SOLOSTAR 100 UNITS/ML 3 ML PEN SC SCH (21:00)
[2016-09-22] MEDS: MAGNESIUM OXIDE 400 MG TAB PO SCH (21:35)
[2016-09-22] MEDS: MIRTAZAPINE TAB 15 MG TAB PO SCH (21:37)
[2016-09-22] MEDS: QUETIAPINE FUMARATE 200 MG TABCR PO SCH (21:38)
[2016-09-22] MEDS: MONTELUKAST SOD 10 MG TAB PO SCH (21:39)
[2016-09-22] MEDS: DOXYCYCLINE HYCLATE 100 MG CAP PO SCH (21:39)
[2016-09-22] MEDS: RANITIDINE HCL 150 MG TAB PO SCH (21:39)
[2016-09-23] VITALS (13 sets, daily range): BP systolic 99–152; BP diastolic 56–87; PULSE 75–101; TEMP 36.3–36.8; O2SAT 90–98; Ht 160 cm; Wt 88.2 kg
[2016-09-23] MEDS: METHYLPREDNISOLONE IV 60 MG in SYRINGE 0 ML IV SCH ×4 (03:06→21:31)
[2016-09-23] MEDS: ALBUTEROL 0.083% NEBU SOLN 3 ML VIAL INH PRN (03:36)
[2016-09-23 05:58] LABS: INR 1.9 (0.9-1.1); PROTHROMBIN TIME (PATIENT) 20.6 SECONDS (9.0-12.0)
[2016-09-23 06:17] LABS: ESTIMATED AVERAGE GLUCOSE 183 mg/dl; HA1C FLAG Normal (Normal)
[2016-09-23 06:18] LABS: BUN/CREATININE RATIO 27.4 (10-20); CALCIUM 8.6 mg/dl (8.5-10.1); CREATININE 0.81 mg/dl (0.60-1.20); POTASSIUM 3.8 mmol/L (3.5-5.1)
[2016-09-23] MEDS: LEVOTHYROXINE 25 MCG TAB PO SCH (06:32)
[2016-09-23] MEDS: ALBUT/IPRATROP 3MG/0.5MG NEB 3 ML VIAL INH SCH ×4 (07:57→20:10)
[2016-09-23] MEDS: MAGNESIUM OXIDE 400 MG TAB PO SCH ×2 (08:13→20:28)
[2016-09-23] MEDS: CLONAZEPAM 0.5 MG TAB PO SCH (08:13)
[2016-09-23] MEDS: GABAPENTIN 300 MG CAP PO SCH ×2 (08:13→20:29)
[2016-09-23] MEDS: PANTOprazole SOD 40 MG TAB PO SCH (08:13)
[2016-09-23] MEDS: FLUTICASONE PROPIONATE NA SPR 16 GM BTL SCH (08:13)
[2016-09-23] MEDS: DOXYCYCLINE HYCLATE 100 MG CAP PO SCH ×2 (08:13→20:30)
[2016-09-23] MEDS: FUROSEMIDE 20 MG TAB PO SCH (08:13)
[2016-09-23] MEDS: POTASSIUM CHLORIDE 20 MEQ TABCR PO SCH ×2 (08:13→21:31)
[2016-09-23] MEDS: MELOXICAM 7.5 MG TAB PO SCH ×2 (08:14→20:29)
[2016-09-23] MEDS: INSULIN ASPART 100 UNITS/ML 3 ML PEN SC SCH ×4 (08:21→20:38)
[2016-09-23] MEDS ORDERED: INSULIN GLARGINE SOLOSTAR 100 UNITS/ML 3 ML PEN SC SCH (09:00)
[2016-09-23] MEDS ORDERED: PERFLUTREN LIPID MICROSPHERE (DEFINITY) IV ONE (10:55)
--- NOTE | 2016-09-23 12:38 | Medical Student: [facility] ---
Med Student Progress Note Date of Service Sep 23, 2016. Subjective Pt evaluation today including: conversation w/ patient, physical exam, chart review, lab review, review of studies Pain: none reported PO Intake: tolerating po diet Voiding: no voiding problems patient reports feeling better today. she says her breathing has been better, but she had some shortness of breath last night around 10 o'clock and continues to have SOB with exertion (going to bathroom, moving around in bed) she says the treatments have helped and she notices she is breathing much better since receiving her diuretics. She denies any nausea, vomiting, or diarrhea since coming to the hospital. no fevers, or heart palpitations reported. no other symptoms to complain of today. Review of Systems Constitutional: No fever Respiratory: + cough, + dyspnea on exertion, + shortness of breath, + wheezing Cardiac: + edema, + orthopnea Abdomen: + diarrhea, + nausea, + vomiting Objective Vital Signs Date Time Temp Pulse Resp B/P Pulse Ox O2 Delivery O2 Flow Rate FiO2 09/23/16 12:00 Nasal Cannula 2.0 09/23/16 11:28 89 20 91 Nasal Cannula 2.0 09/23/16 11:08 36.6 90 22 139/74 90 Nasal Cannula 2.0 09/23/16 07:57 85 20 92 Nasal Cannula 2.0 09/23/16 07:45 Nasal Cannula 2.0 09/23/16 07:31 36.6 85 20 132/73 92 Nasal Cannula 2.0 09/23/16 04:22 36.4 86 18 119/65 92 Nasal Cannula 2.0 09/23/16 04:00 95 Nasal Cannula 2.0 09/23/16 03:37 76 20 95 Nasal Cannula 2.0 09/23/16 00:00 95 Nasal Cannula 2.0 09/22/16 23:53 75 22 95 Nasal Cannula 2.0 09/22/16 23:13 37.0 74 17 117/64 95 Nasal Cannula 2.0 09/22/16 20:00 97 Nasal Cannula 2.0 09/22/16 19:28 36.8 86 17 115/71 94 Nasal Cannula 2.0 09/22/16 19:09 72 20 94 Nasal Cannula 2.0 09/22/16 16:00 97 Nasal Cannula 2.0 09/22/16 15:55 70 20 97 Nasal Cannula 2.0 09/22/16 15:21 37.1 89 20 120/53 99 Nasal Cannula 2.0 Physical Exam General Appearance: no apparent distress, + obese Eyes: bilateral eyes normal inspection ENT: normal ENT inspection, pharynx normal Neck: supple, no JVD Respiratory/Chest: chest non-tender, + decreased breath sounds, + wheezing, + pertinent finding (coughing attacks following deep breathing for exam) Cardiovascular: regular rate, rhythm, no edema, no gallop, no JVD, no murmur Abdomen: normal bowel sounds, non tender, soft Extremities: non-tender Neurologic/Psychiatric: alert, normal mood/affect, oriented x 3 Skin: normal color, warm/dry, no rash Laboratory Results Last 24 Hours Test 09/22/16 16:34 09/22/16 20:14 09/23/16 05:23 09/23/16 07:29 Bedside Glucose 227 mg/dl 332 mg/dl 274 mg/dl Prothrombin Time 20.6 SECONDS Prothromb Time International Ratio 1.9 Sodium Level 144 mmol/L Potassium Level 3.8 mmol/L Chloride Level 106 mmol/L Carbon Dioxide Level 30 mmol/L Anion Gap 8.0 mmol/L Blood Urea Nitrogen 22 mg/dl Creatinine 0.81 mg/dl Est Creatinine Clear Calc Drug Dose 66.4 ml/min Estimated GFR () 84.1 Estimated GFR (Non- 72.6 BUN/Creatinine Ratio 27.4 Random Glucose 277 mg/dl Calcium Level 8.6 mg/dl Medications Current Inpatient Medications Medications (Trade) Dose Ordered Sig/Lulú Route Start Time Stop Time Status Last Admin Dose Admin Clonazepam (Klonopin Tab) 0.5 mg DAILY PO 09/22/16 09:00 10/22/16 08:59 09/23/16 08:13 0.5 MG Fluticasone Propionate (Flonase Nasal [place]) 2 sprays DAILY NA 09/22/16 09:00 10/22/16 08:59 09/23/16 08:13 2 SPRAYS Gabapentin (Neurontin Cap) 300 mg BID PO 09/22/16 09:00 10/22/16 08:59 09/23/16 08:13 300 MG Albuterol/ Ipratropium (Duoneb) 3 ml QIDR INH 09/22/16 08:00 10/22/16 07:59 09/23/16 11:28 3 ML Levothyroxine Sodium (Synthroid Tab) 25 mcg DAILYBB PO 09/22/16 06:30 10/22/16 06:29 09/23/16 06:32 25 MCG Meloxicam (Mobic Tab) 7.5 mg BID PO 09/22/16 09:00 10/22/16 08:59 09/23/16 08:14 7.5 MG Montelukast Sodium (Singulair Tab) 10 mg HS PO 09/22/16 21:00 10/22/16 20:59 09/22/16 21:39 10 MG Pantoprazole Sodium (Protonix Tab) 40 mg QAM PO 09/22/16 09:00 10/22/16 08:59 09/23/16 08:13 40 MG Potassium Chloride (Klor-Con Tab) 20 meq BID PO 09/22/16 09:00 10/22/16 08:59 09/23/16 08:13 20 MEQ Quetiapine Fumarate (seroQUEL XR TAB) 400 mg HS PO 09/22/16 21:00 10/22/16 20:59 09/22/16 21:38 400 MG Ranitidine HCl (zANTac TAB) 150 mg QPM PO 09/22/16 21:00 10/22/16 20:59 09/22/16 21:39 150 MG Warfarin Sodium (Coumadin Tab) 4 mg DAILY@1800 PO 09/22/16 18:00 10/22/16 17:59 09/22/16 17:56 4 MG Mirtazapine (Remeron Tab) 45 mg HS PO 09/22/16 21:00 10/22/16 20:59 09/22/16 21:37 45 MG Miscellaneous Information (Order Awaiting Action) 1 ea QS N/A 09/22/16 08:00 10/22/16 07:59 Albuterol Sulfate (Ventolin 0.083% 2.5MG/3ML Neb) 2.5 mg Q4H PRN INH 09/21/16 23:15 10/21/16 23:14 09/23/16 03:36 2.5 MG Acetaminophen (Tylenol Tab) 650 mg Q4H PRN PO 09/21/16 23:15 10/21/16 23:14 Al Hydrox/Mg Hydrox/Simethicone (Maalox Max Susp) 15 ml Q4H PRN PO 09/21/16 23:15 10/21/16 23:14 Magnesium Hydroxide (Milk Of Magnesia Susp) 30 ml Q12H PRN PO 09/21/16 23:15 10/21/16 23:14 Ondansetron HCl (Zofran Inj) 4 mg Q6H PRN IV 09/21/16 23:15 10/21/16 23:14 Nitroglycerin (Nitrostat Tab) 0.4 mg UD PRN SL 09/21/16 23:15 10/21/16 23:14 Morphine Sulfate (MoRPHine SULFATE INJ) 2 mg Q30M PRN IV 09/21/16 23:15 10/05/16 23:14 09/22/16 02:27 2 MG Polyethylene (Miralax Powder Packet) 17 gm DAILY PRN PO 09/21/16 23:15 10/21/16 23:14 Insulin Aspart SLIDING SCALE G... ACHS SC 09/22/16 06:30 10/22/16 06:29 09/23/16 08:21 4 UNITS Methylprednisolone Sodium Succinate/ Syringe (Solu-Medrol IV/ Syringe) 0.96 ml @ 1.5 mls/min Q6H IV 09/22/16 04:00 10/22/16 03:59 09/23/16 09:31 1.5 MLS/MIN Glucose (Glucose 40% Gel) 15-30 GRAMS 15 GRAMS... UD PRN PO 09/22/16 02:15 10/22/16 02:14 Glucose (Glucose Chew Tab) 4-8 Tablets 4 Tabl... UD PRN PO 09/22/16 02:15 10/22/16 02:14 Dextrose (Dextrose 50% 50ML Syringe) 25-50ML OF 50% DW IV FOR... UD PRN IV 09/22/16 02:15 10/22/16 02:14 Glucagon (Glucagon Inj) 1 mg UD PRN SQ 09/22/16 02:15 10/22/16 02:14 Furosemide (Lasix tab) 40 mg QAM PO 09/23/16 09:00 10/23/16 08:59 09/23/16 08:13 40 MG Doxycycline Hyclate (Vibramycin Cap) 100 mg BID PO 09/22/16 21:00 09/29/16 20:59 09/23/16 08:13 100 MG Magnesium Oxide (Mag-Ox Tab) 400 mg BID PO 09/22/16 21:00 10/22/16 20:59 09/23/16 08:13 400 MG Insulin Glargine (Lantus Solostar Pen) 8 unit BID SC 09/23/16 09:00 10/23/16 08:59 09/23/16 09:33 8 UNIT Assessment and Plan Assessment and Plan: 1. COPD exacerbation - breathing continues to improve following nebulizer treatments and IV steroids - Continue qid duoneb and IV methylprednisolone at 60 mg q6hrs until significant improvement, then begin taper - Continue albuterol q4hrs prn for SOB - Continue montelukast po - Levofloxacin d/c yesterday in favor of more narrow spectrum doxycycline. continue 100 mg po bid for possible bronchitis in setting of COPD. - Continue supplemental O2. As breathing improves, wean as tolerated. 2. CHF - seems less volume overloaded today - Continue lasix at 40 mg qam - monitor bmps for any changes in creatinine - compression for relief of edema and DVT prophylaxis 3. Pulmonary emboli - Continue coumadin for anticoagulation given current therapeutic INR 4. DM type 2- glucose fluctuating, most likely due to IV steroids - Sliding scale insulin protocol 5. GERD- well-controlled on protonix and ranitidine - Continue home doses Continued [facility] stay due to: multiple IV medications needed Discharge planning: uncertain
[2016-09-23] MEDS ORDERED: NURSING DECISION MEDICATION ORDER SCH (14:45)
[2016-09-23] MEDS ORDERED: MICONAZOLE NITRATE POWDER 43 GM EXT PRN (15:00)
--- NOTE | 2016-09-23 15:20 | ECHOCARDIOGRAM REPORT ---
*NOTICE TO RECEIVING [employer] This information is strictly Confidential and protected under [place] law. [place] law prohibits you from making any further disclosure of this information unless further disclosure is expressly permitted by the written consent of the person to whom it pertains or is authorized by law. A general authorization for the release of medical or other information is not sufficient for this purpose. Hospital accepts no responsibility if the information is made available to any other person, INCLUDING THE PATIENT. Interpretation Summary * Name: ROSA HASSAN Study Date: 09/23/2016 09:54 AM BP: 132/73 mmHg * Patient Location: .[facility]\S\N284\S\2 HR: 85 * : 1945 (M/d/yyyy) Gender: Female Height: 63 in * Age: 71 yrs Ethnicity: CA Weight: 196 lb * Ordering Physician: Jose Osorio * Referring Physician: Self, Referred * Performed By: Danielle Reyes RCS * * Reason For Study: CHF * BSA: 1.9 m2 * -- Conclusions -- * 1. Normal LV size and wall thickness. * 2. Normal LV function. LVEF 65-70%. No regional wall motion abnormalities. * 3. Normal RV size and function. * 4. No significant valvular pathology. * 5. Normal estimated RA and PA pressures. * 6. No prior studies for comparison. Procedure Details * A complete two-dimensional transthoracic echocardiogram was performed (2D, M-mode, Doppler and color flow Doppler). * A contrast injection of Definity was performed to improve assessment of LV function. * Contrast was injected into an intravenous site in the right arm. * One vial of Definity ultrasound contrast was diluted in normal saline to a total volume of 10 ml. A total of '2' ml of solution was administered during imaging. * Lot # [id number] of Definity utilized for procedure. * Expiration date . * The attending nurse who injected the contrast agent was Daniela Weiss RN. Left Ventricle * The left ventricle is grossly normal size. * There is normal left ventricular wall thickness. * Ejection Fraction = 65-70%. Right Ventricle * The right ventricle is grossly normal size. * The right ventricular systolic function is normal. Atria * The left atrial size is normal. * Right atrial size is normal. * No ASD detected; PFO is not assessed. Mitral Valve * The mitral valve is not well visualized. * There is no mitral valve stenosis. * There is trace mitral regurgitation. Tricuspid Valve * The tricuspid valve is not well visualized. * There is no tricuspid stenosis. * There is trace tricuspid regurgitation. Aortic Valve * The aortic valve is not well visualized. * No hemodynamically significant valvular aortic stenosis. * There is no significant aortic regurgitation. Pulmonic Valve * The pulmonary valve is inadequately visualized, but the Doppler data is adequate for interpretation. * Pulmonic stenosis is absent. * There is no significant pulmonary regurgitation. Great Vessels * The aortic root and proximal ascending aorta are normal sized. * Normal inferior vena cava size and collapsability with sniff indicates a normal right atrial pressure of 3 mmHg MMode 2D Measurements and Calculations IVSd 1.0 cm IVSs 1.2 cm LVIDd 4.8 cm LVIDs 2.8 cm LVPWd 1.0 cm LVPWs 1.2 cm IVS/LVPW 1.0 FS 42.2 % EDV(Teich) 109.5 ml ESV(Teich) 29.5 ml EF(Teich) 73.1 % EDV(cubed) 113.3 ml ESV(cubed) 21.9 ml EF(cubed) 80.7 % % IVS thick 15.9 % % LVPW thick 17.4 % LV mass(C)d 179.4 grams LV mass(C)dI 93.6 grams/m\S\2 LV mass(C)s 99.3 grams LV mass(C)sI 51.8 grams/m\S\2 CO(Teich) 6.5 l/min CI(Teich) 3.4 l/min/m\S\2 SV(Teich) 80.1 ml SI(Teich) 41.8 ml/m\S\2 CO(cubed) 7.4 l/min CI(cubed) 3.9 l/min/m\S\2 SV(cubed) 91.4 ml SI(cubed) 47.7 ml/m\S\2 Ao root diam 3.5 cm Ao root area 9.4 cm\S\2 ACS 1.8 cm LA dimension 3.6 cm LA/Ao 1.1 LVAd ap4 28.2 cm\S\2 LVLd ap4 8.6 cm EDV(MOD-sp4) 78.0 ml LVAs ap4 14.2 cm\S\2 LVLs ap4 6.9 cm ESV(MOD-sp4) 25.0 ml EF(MOD-sp4) 67.9 % LVAd ap2 38.8 cm\S\2 LVLd ap2 9.0 cm EDV(MOD-sp2) 136.0 ml LVAs ap2 19.4 cm\S\2 LVLs ap2 7.2 cm ESV(MOD-sp2) 44.0 ml EF(MOD-sp2) 67.6 % CO(MOD-sp4) 4.3 l/min CI(MOD-sp4) 2.2 l/min/m\S\2 SV(MOD-sp4) 53.0 ml SI(MOD-sp4) 27.6 ml/m\S\2 CO(MOD-sp2) 7.5 l/min CI(MOD-sp2) 3.9 l/min/m\S\2 SV(MOD-sp2) 92.0 ml SI(MOD-sp2) 48.0 ml/m\S\2 Doppler Measurements and Calculations MV E max melony 105.8 cm/sec MV A max melony 125.6 cm/sec MV E/A 0.84 MV P1/2t max melony 120.1 cm/sec MV P1/2t 66.9 msec MVA(P1/2t) 3.3 cm\S\2 MV dec slope 526.2 cm/sec\S\2 MV dec time 0.32 sec Ao V2 max 175.3 cm/sec Ao max PG 12.3 mmHg Ao max PG (full) 3.8 mmHg LV V1 max PG 8.5 mmHg LV V1 max 146.0 cm/sec PA V2 max 109.9 cm/sec PA max PG 4.8 mmHg TR max melony 271.1 cm/sec
[2016-09-23] MEDS ORDERED: WARFARIN SOD 4 MG TAB PO ONE (16:45)
--- NOTE | 2016-09-23 17:37 | Progress Note ---
Subjective Date of Service: Sep 23, 2016. Subjective Pt evaluation today including: conversation w/ patient, physical exam, chart review, lab review, review of inpatient medication list slowly feeling better - still with exertional dyspnea but less sob at rest. still wheezing. nebs help. was somewhat anxious earlier as well no f/c/s Problem List Medical Problems: (1) Anemia Status: Acute (2) COPD exacerbation Status: Acute (3) Hypoxia Status: Acute Review of Systems Constitutional: No chills, No fever, No sweats Respiratory: + dyspnea on exertion, + see HPI, + shortness of breath, + wheezing ros otherwise negative except for as above Objective Vital Signs Date Time Temp Pulse Resp B/P Pulse Ox O2 Delivery O2 Flow Rate FiO2 09/23/16 16:00 Nasal Cannula 2.0 09/23/16 12:00 Nasal Cannula 2.0 09/23/16 11:28 89 20 91 Nasal Cannula 2.0 09/23/16 11:08 36.6 90 22 139/74 90 Nasal Cannula 2.0 09/23/16 07:57 85 20 92 Nasal Cannula 2.0 09/23/16 07:45 Nasal Cannula 2.0 09/23/16 07:31 36.6 85 20 132/73 92 Nasal Cannula 2.0 09/23/16 04:22 36.4 86 18 119/65 92 Nasal Cannula 2.0 09/23/16 04:00 95 Nasal Cannula 2.0 09/23/16 03:37 76 20 95 Nasal Cannula 2.0 09/23/16 00:00 95 Nasal Cannula 2.0 09/22/16 23:53 75 22 95 Nasal Cannula 2.0 09/22/16 23:13 37.0 74 17 117/64 95 Nasal Cannula 2.0 09/22/16 20:00 97 Nasal Cannula 2.0 09/22/16 19:28 36.8 86 17 115/71 94 Nasal Cannula 2.0 09/22/16 19:09 72 20 94 Nasal Cannula 2.0 Physical Exam General Appearance: no apparent distress Eyes: EOMI ENT: hearing grossly normal Neck: trachea midline Respiratory/Chest: no respiratory distress, no accessory muscle use, + decreased breath sounds (improved air entry ---> louder wheezing than yesterday , diffuse/symmetric and with better air entry) Cardiovascular: regular rate, rhythm Neurologic/Psychiatric: pocket closer II-XII nml as tested, alert, normal mood/affect ( pleasantly anxious) Skin: normal color, warm/dry Laboratory Results Last 24 Hours Test 09/22/16 20:14 09/23/16 05:23 09/23/16 07:29 09/23/16 12:05 Bedside Glucose 332 mg/dl 274 mg/dl 365 mg/dl Prothrombin Time 20.6 SECONDS Prothromb Time International Ratio 1.9 Sodium Level 144 mmol/L Potassium Level 3.8 mmol/L Chloride Level 106 mmol/L Carbon Dioxide Level 30 mmol/L Anion Gap 8.0 mmol/L Blood Urea Nitrogen 22 mg/dl Creatinine 0.81 mg/dl Est Creatinine Clear Calc Drug Dose 66.4 ml/min Estimated GFR () 84.1 Estimated GFR (Non- 72.6 BUN/Creatinine Ratio 27.4 Random Glucose 277 mg/dl Calcium Level 8.6 mg/dl Test 09/23/16 16:52 Bedside Glucose 147 mg/dl Assessment and Plan acute hypoxic respiratory failure -from COPD and CHF -improving COPD exacerbation - -slowly improving -continue scheduled and prn nebs -slowly wean steroids -continue doxy -get record of PFTs (waiting) CHF - acute on chronic diastolic - -improved w increase of PO lasix, increase daily dose to 40mg, follow status, follow BMP -echo noted Recent PEs - pt on Coumadin - INR is therapeutic, follow daily (INR trending down, she notes she doesn't normally eat this many vegetables, additional coumadin today) NIDDM - A1c 8, continue to titrate basal/bolus. follow sugars Hypothyroid - cont synthroid Gerd - takes protonix and Ranitidine - continued hypomagnesemia - replete PO anxiety - on a lot of meds, does have a significant anxiety component, but concern on raising benzos causing more respiratory suppression; other meds would be too slow in acting to affect much benefit now Continued [facility] stay due to: multiple IV medications needed Discharge planning: uncertain
[2016-09-23] MEDS: WARFARIN SOD 4 MG TAB PO SCH (17:57)
[2016-09-23] MEDS: QUETIAPINE FUMARATE 200 MG TABCR PO SCH (20:28)
[2016-09-23] MEDS: MIRTAZAPINE TAB 15 MG TAB PO SCH (20:30)
[2016-09-23] MEDS: MONTELUKAST SOD 10 MG TAB PO SCH (20:30)
[2016-09-23] MEDS: RANITIDINE HCL 150 MG TAB PO SCH (20:30)
[2016-09-23] MEDS: INSULIN GLARGINE SOLOSTAR 100 UNITS/ML 3 ML PEN SC SCH (20:38)
[2016-09-24] VITALS (14 sets, daily range): BP systolic 114–158; BP diastolic 62–85; PULSE 65–103; TEMP 36.4–37.1; O2SAT 91–98
[2016-09-24] MEDS: ALBUTEROL 0.083% NEBU SOLN 3 ML VIAL INH PRN (02:21)
[2016-09-24] MEDS: METHYLPREDNISOLONE IV 60 MG in SYRINGE 0 ML IV SCH ×3 (06:07→21:35)
[2016-09-24] MEDS: LEVOTHYROXINE 25 MCG TAB PO SCH (06:10)
[2016-09-24] MEDS: ALBUT/IPRATROP 3MG/0.5MG NEB 3 ML VIAL INH SCH ×4 (07:33→20:26)
[2016-09-24 07:43] LABS: INR 1.9 (0.9-1.1); PROTHROMBIN TIME (PATIENT) 20.5 SECONDS (9.0-12.0)
[2016-09-24 08:12] LABS: BUN/CREATININE RATIO 33.9 (10-20); CALCIUM 8.6 mg/dl (8.5-10.1); CREATININE 0.71 mg/dl (0.60-1.20); POTASSIUM 4.2 mmol/L (3.5-5.1)
[2016-09-24] MEDS: MELOXICAM 7.5 MG TAB PO SCH ×2 (08:19→21:34)
[2016-09-24] MEDS: GABAPENTIN 300 MG CAP PO SCH ×2 (08:19→21:34)
[2016-09-24] MEDS: FLUTICASONE PROPIONATE NA SPR 16 GM BTL SCH (08:19)
[2016-09-24] MEDS: POTASSIUM CHLORIDE 20 MEQ TABCR PO SCH ×2 (08:19→21:33)
[2016-09-24] MEDS: FUROSEMIDE 20 MG TAB PO SCH (08:19)
[2016-09-24] MEDS: DOXYCYCLINE HYCLATE 100 MG CAP PO SCH ×2 (08:19→21:35)
[2016-09-24] MEDS: CLONAZEPAM 0.5 MG TAB PO SCH (08:19)
[2016-09-24] MEDS: PANTOprazole SOD 40 MG TAB PO SCH (08:19)
[2016-09-24] MEDS: MAGNESIUM OXIDE 400 MG TAB PO SCH ×2 (08:19→21:34)
[2016-09-24] MEDS: INSULIN ASPART 100 UNITS/ML 3 ML PEN SC SCH ×4 (08:21→21:38)
[2016-09-24] MEDS: INSULIN GLARGINE SOLOSTAR 100 UNITS/ML 3 ML PEN SC SCH ×2 (08:22→21:39)
--- NOTE | 2016-09-24 12:22 | Medical Student: [facility] ---
Med Student Progress Note Date of Service Sep 24, 2016. Subjective Pt evaluation today including: conversation w/ patient, physical exam, chart review, lab review, review of studies Pain: no pain PO Intake: tolerating po diet Voiding: no voiding problems patient was distressed when I saw her this morning, after having gotten up to go to the bathroom. she stated that she was having difficulty breathing and had requested a breathing treatment. However, she says that overall her breathing is better. she also says she feels very anxious right now. she denies any chest pain, nausea, vomiting, or diarrhea. She does not report any other symptoms. Review of Systems Constitutional: No fever Respiratory: + cough, + dyspnea on exertion, + shortness of breath, + wheezing Cardiac: + orthopnea, No chest pain Objective Vital Signs Date Time Temp Pulse Resp B/P Pulse Ox O2 Delivery O2 Flow Rate FiO2 09/24/16 11:45 92 20 95 Nasal Cannula 2.0 09/24/16 11:25 36.8 85 22 125/68 94 Nasal Cannula 2.0 09/24/16 07:33 65 20 92 Nasal Cannula 2.0 09/24/16 07:30 Nasal Cannula 2.0 09/24/16 06:58 36.5 72 18 158/82 98 Nasal Cannula 2.0 09/24/16 04:00 Nasal Cannula 2.0 09/24/16 03:57 36.4 76 20 116/62 95 Room Air 09/24/16 02:22 73 20 98 Nasal Cannula 2.0 09/24/16 00:00 Nasal Cannula 2.0 09/23/16 23:33 36.3 75 20 152/87 98 Room Air 09/23/16 20:10 84 18 94 Nasal Cannula 2.0 09/23/16 20:00 Nasal Cannula 2.0 09/23/16 19:37 36.8 78 20 126/73 97 Nasal Cannula 2.0 09/23/16 16:00 36.8 79 18 99/56 94 Nasal Cannula 2.0 09/23/16 16:00 Nasal Cannula 2.0 09/23/16 15:58 101 20 94 Nasal Cannula 2.0 09/23/16 12:00 Nasal Cannula 2.0 Physical Exam General Appearance: + mild distress (short of breath), + obese Eyes: bilateral eyes normal inspection ENT: hearing grossly normal Neck: supple, no JVD Respiratory/Chest: chest non-tender, + decreased breath sounds, + wheezing ( mild end-expiratory wheezing) Cardiovascular: regular rate, rhythm, no edema, no gallop, no murmur Abdomen: normal bowel sounds, non tender, soft Neurologic/Psychiatric: alert, oriented x 3, + pertinent finding (anxious- appearing) Skin: normal color, warm/dry, no rash Laboratory Results Last 24 Hours Test 09/23/16 12:05 09/23/16 16:52 09/23/16 20:20 09/24/16 07:25 Bedside Glucose 365 mg/dl 147 mg/dl 252 mg/dl 199 mg/dl Prothrombin Time 20.5 SECONDS Prothromb Time International Ratio 1.9 Sodium Level 145 mmol/L Potassium Level 4.2 mmol/L Chloride Level 108 mmol/L Carbon Dioxide Level 29 mmol/L Anion Gap 8.0 mmol/L Blood Urea Nitrogen 24 mg/dl Creatinine 0.71 mg/dl Est Creatinine Clear Calc Drug Dose 75.9 ml/min Estimated GFR () 98.6 Estimated GFR (Non- 85.1 BUN/Creatinine Ratio 33.9 Random Glucose 193 mg/dl Calcium Level 8.6 mg/dl Test 09/24/16 11:43 Bedside Glucose 325 mg/dl Medications Current Inpatient Medications Medications (Trade) Dose Ordered Sig/Lulú Route Start Time Stop Time Status Last Admin Dose Admin Clonazepam (Klonopin Tab) 0.5 mg DAILY PO 09/22/16 09:00 10/22/16 08:59 09/24/16 08:19 0.5 MG Fluticasone Propionate (Flonase Nasal [place]) 2 sprays DAILY NA 09/22/16 09:00 10/22/16 08:59 09/24/16 08:19 2 SPRAYS Gabapentin (Neurontin Cap) 300 mg BID PO 09/22/16 09:00 10/22/16 08:59 09/24/16 08:19 300 MG Albuterol/ Ipratropium (Duoneb) 3 ml QIDR INH 09/22/16 08:00 10/22/16 07:59 09/24/16 11:44 3 ML Levothyroxine Sodium (Synthroid Tab) 25 mcg DAILYBB PO 09/22/16 06:30 10/22/16 06:29 09/24/16 06:10 25 MCG Meloxicam (Mobic Tab) 7.5 mg BID PO 09/22/16 09:00 10/22/16 08:59 09/24/16 08:19 7.5 MG Montelukast Sodium (Singulair Tab) 10 mg HS PO 09/22/16 21:00 10/22/16 20:59 09/23/16 20:30 10 MG Pantoprazole Sodium (Protonix Tab) 40 mg QAM PO 09/22/16 09:00 10/22/16 08:59 09/24/16 08:19 40 MG Potassium Chloride (Klor-Con Tab) 20 meq BID PO 09/22/16 09:00 10/22/16 08:59 09/24/16 08:19 20 MEQ Quetiapine Fumarate (seroQUEL XR TAB) 400 mg HS PO 09/22/16 21:00 10/22/16 20:59 09/23/16 20:28 400 MG Ranitidine HCl (zANTac TAB) 150 mg QPM PO 09/22/16 21:00 10/22/16 20:59 09/23/16 20:30 150 MG Warfarin Sodium (Coumadin Tab) 4 mg DAILY@1800 PO 09/22/16 18:00 10/22/16 17:59 09/23/16 17:57 4 MG Mirtazapine (Remeron Tab) 45 mg HS PO 09/22/16 21:00 10/22/16 20:59 09/23/16 20:30 45 MG Miscellaneous Information (Order Awaiting Action) 1 ea QS N/A 09/22/16 08:00 10/22/16 07:59 Albuterol Sulfate (Ventolin 0.083% 2.5MG/3ML Neb) 2.5 mg Q4H PRN INH 09/21/16 23:15 10/21/16 23:14 09/24/16 02:21 2.5 MG Acetaminophen (Tylenol Tab) 650 mg Q4H PRN PO 09/21/16 23:15 10/21/16 23:14 Al Hydrox/Mg Hydrox/Simethicone (Maalox Max Susp) 15 ml Q4H PRN PO 09/21/16 23:15 10/21/16 23:14 Magnesium Hydroxide (Milk Of Magnesia Susp) 30 ml Q12H PRN PO 09/21/16 23:15 10/21/16 23:14 Ondansetron HCl (Zofran Inj) 4 mg Q6H PRN IV 09/21/16 23:15 10/21/16 23:14 Nitroglycerin (Nitrostat Tab) 0.4 mg UD PRN SL 09/21/16 23:15 10/21/16 23:14 Morphine Sulfate (MoRPHine SULFATE INJ) 2 mg Q30M PRN IV 09/21/16 23:15 10/05/16 23:14 09/22/16 02:27 2 MG Polyethylene (Miralax Powder Packet) 17 gm DAILY PRN PO 09/21/16 23:15 10/21/16 23:14 Insulin Aspart (novoLOG ASPART) SLIDING SCALE G... ACHS SC 09/22/16 06:30 10/22/16 06:29 09/24/16 08:21 9 UNITS Glucose (Glucose 40% Gel) 15-30 GRAMS 15 GRAMS... UD PRN PO 09/22/16 02:15 10/22/16 02:14 Glucose (Glucose Chew Tab) 4-8 Tablets 4 Tabl... UD PRN PO 09/22/16 02:15 10/22/16 02:14 Dextrose (Dextrose 50% 50ML Syringe) 25-50ML OF 50% DW IV FOR... UD PRN IV 09/22/16 02:15 10/22/16 02:14 Glucagon (Glucagon Inj) 1 mg UD PRN SQ 09/22/16 02:15 10/22/16 02:14 Furosemide (Lasix tab) 40 mg QAM PO 09/23/16 09:00 10/23/16 08:59 09/24/16 08:19 40 MG Doxycycline Hyclate (Vibramycin Cap) 100 mg BID PO 09/22/16 21:00 09/29/16 20:59 09/24/16 08:19 100 MG Magnesium Oxide (Mag-Ox Tab) 400 mg BID PO 09/22/16 21:00 10/22/16 20:59 09/24/16 08:19 400 MG Miconazole Nitrate 1 appln 1 appln PRN PRN EXT 09/23/16 15:00 10/23/16 14:59 Methylprednisolone Sodium Succinate/ Syringe (Solu-Medrol IV/ Syringe) 0.96 ml @ 1.5 mls/min Q8 IV 09/23/16 22:00 10/23/16 21:59 09/24/16 06:07 1.5 MLS/MIN Insulin Glargine (Lantus Solostar Pen) 12 unit BID SC 09/23/16 21:00 10/23/16 20:59 09/24/16 08:22 12 UNIT Assessment and Plan Assessment and Plan: This is a 71 yo woman here for a COPD exacerbation following recurrent hospitalizations throughout the fall and winter. 1. COPD exacerbation - breathing continues to improve following nebulizer treatments and IV steroids - Continue qid duoneb and IV methylprednisolone at 60 mg q8hrs today - Continue albuterol q4hrs prn for SOB - Continue montelukast po - Continue doxycycline (day 3) 100 mg po bid for possible bronchitis in setting of COPD. - Continue supplemental O2. As breathing improves, wean as tolerated. 2. CHF - seems less volume overloaded today - Continue lasix at 40 mg qam - monitor bmps for any changes in creatinine - compression for relief of edema and DVT prophylaxis 3. Pulmonary emboli - Continue coumadin for anticoagulation given current therapeutic INR 4. DM type 2- glucose control improved today following increase in basal insulin yesterday - blood sugars around 200 right now - Sliding scale insulin protocol 5. GERD- well-controlled on protonix and ranitidine - Continue home doses Continued [facility] stay due to: multiple IV medications needed Discharge planning: home
[2016-09-24] MEDS ORDERED: WARFARIN SOD 4 MG TAB PO ONE ×2 (16:30→17:00)
--- NOTE | 2016-09-24 17:40 | Progress Note ---
Subjective Date of Service: Sep 24, 2016. Subjective Pt evaluation today including: conversation w/ patient, physical exam, chart review, lab review, review of inpatient medication list had some ALVAREZ earlier when getting up to the bathroom, but then notes that she felt pretty good when walking wt PT (did 50ft x2, did desat to 85% on 2L but then quickly back up to 90%) no f/c/s feels like she's getting better lives [place], lives alone but feels she does OK taking care of herself. already has O2 Problem List Medical Problems: (1) Anemia Status: Acute (2) COPD exacerbation Status: Acute (3) Hypoxia Status: Acute Review of Systems Constitutional: No chills, No fever, No sweats Respiratory: + dyspnea on exertion, + see HPI, + shortness of breath, + wheezing (all improving) ros otherwise negative except for as above Objective Vital Signs Date Time Temp Pulse Resp B/P Pulse Ox O2 Delivery O2 Flow Rate FiO2 09/24/16 15:39 66 20 93 Nasal Cannula 2.0 09/24/16 15:29 37.1 93 18 114/68 95 Nasal Cannula 2.0 09/24/16 13:00 103 91 09/24/16 12:00 Nasal Cannula 2.0 09/24/16 11:45 92 20 95 Nasal Cannula 2.0 09/24/16 11:25 36.8 85 22 125/68 94 Nasal Cannula 2.0 09/24/16 07:33 65 20 92 Nasal Cannula 2.0 09/24/16 07:30 Nasal Cannula 2.0 09/24/16 06:58 36.5 72 18 158/82 98 Nasal Cannula 2.0 09/24/16 04:00 Nasal Cannula 2.0 09/24/16 03:57 36.4 76 20 116/62 95 Room Air 09/24/16 02:22 73 20 98 Nasal Cannula 2.0 09/24/16 00:00 Nasal Cannula 2.0 09/23/16 23:33 36.3 75 20 152/87 98 Room Air 09/23/16 20:10 84 18 94 Nasal Cannula 2.0 09/23/16 20:00 Nasal Cannula 2.0 09/23/16 19:37 36.8 78 20 126/73 97 Nasal Cannula 2.0 Physical Exam General Appearance: no apparent distress Eyes: EOMI ENT: hearing grossly normal Neck: trachea midline Respiratory/Chest: no respiratory distress, no accessory muscle use, + decreased breath sounds, + wheezing (improving air entry, less wheezing, but still persists, globally no asymetric findings) Extremities: normal range of motion 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, alert, normal mood/affect Skin: normal color, warm/dry Laboratory Results Last 24 Hours Test 09/23/16 20:20 09/24/16 07:25 09/24/16 11:43 09/24/16 16:15 Bedside Glucose 252 mg/dl 199 mg/dl 325 mg/dl 162 mg/dl Prothrombin Time 20.5 SECONDS Prothromb Time International Ratio 1.9 Sodium Level 145 mmol/L Potassium Level 4.2 mmol/L Chloride Level 108 mmol/L Carbon Dioxide Level 29 mmol/L Anion Gap 8.0 mmol/L Blood Urea Nitrogen 24 mg/dl Creatinine 0.71 mg/dl Est Creatinine Clear Calc Drug Dose 75.9 ml/min Estimated GFR () 98.6 Estimated GFR (Non- 85.1 BUN/Creatinine Ratio 33.9 Random Glucose 193 mg/dl Calcium Level 8.6 mg/dl Assessment and Plan acute hypoxic respiratory failure -from COPD and CHF -improving COPD exacerbation - -slowly improving -continue scheduled and prn nebs -continue current dosing of steroids for today -continue doxy -get record of PFTs (still waiting -?were they ever done. might need to be done as outpt) CHF - acute on chronic diastolic - -improved w increase of PO lasix, increase daily dose to 40mg, follow status, follow BMP -echo noted Recent PEs - pt on Coumadin - continue daily INR, additional coumadin again today since 1.9 (again she's eating more vegetables now than she normally does) NIDDM - A1c 8, continue to titrate basal/bolus. follow sugars Hypothyroid - cont synthroid Gerd - takes protonix and Ranitidine - continued hypomagnesemia - replete PO anxiety - on a lot of meds, does have a significant anxiety component, but concern on raising benzos causing more respiratory suppression; other meds would be too slow in acting to affect much benefit now dispo - definitely improving, home once feeling more confident and ALVAREZ improved a bit more Discharge planning: home
[2016-09-24] MEDS: WARFARIN SOD 4 MG TAB PO SCH (17:49)
[2016-09-24] MEDS: RANITIDINE HCL 150 MG TAB PO SCH (21:35)
[2016-09-24] MEDS: MIRTAZAPINE TAB 15 MG TAB PO SCH (21:35)
[2016-09-24] MEDS: QUETIAPINE FUMARATE 200 MG TABCR PO SCH (21:35)
[2016-09-24] MEDS: MONTELUKAST SOD 10 MG TAB PO SCH (21:35)
[2016-09-25] VITALS (9 sets, daily range): BP systolic 127–156; BP diastolic 73–85; PULSE 68–98; TEMP 36.4–36.6; O2SAT 92–97
[2016-09-25] MEDS: ALBUTEROL 0.083% NEBU SOLN 3 ML VIAL INH PRN (00:58)
[2016-09-25] MEDS: METHYLPREDNISOLONE IV 60 MG in SYRINGE 0 ML IV SCH (06:05)
[2016-09-25] MEDS: LEVOTHYROXINE 25 MCG TAB PO SCH (06:07)
[2016-09-25 06:26] LABS: INR 2.1 (0.9-1.1); PROTHROMBIN TIME (PATIENT) 23.2 SECONDS (9.0-12.0)
[2016-09-25] MEDS: ALBUT/IPRATROP 3MG/0.5MG NEB 3 ML VIAL INH SCH ×3 (07:35→15:27)
[2016-09-25] MEDS: DOXYCYCLINE HYCLATE 100 MG CAP PO SCH (08:11)
[2016-09-25] MEDS: FLUTICASONE PROPIONATE NA SPR 16 GM BTL SCH (08:11)
[2016-09-25] MEDS: POTASSIUM CHLORIDE 20 MEQ TABCR PO SCH (08:11)
[2016-09-25] MEDS: CLONAZEPAM 0.5 MG TAB PO SCH (08:11)
[2016-09-25] MEDS: MAGNESIUM OXIDE 400 MG TAB PO SCH (08:11)
[2016-09-25] MEDS: FUROSEMIDE 20 MG TAB PO SCH (08:11)
[2016-09-25] MEDS: GABAPENTIN 300 MG CAP PO SCH (08:11)
[2016-09-25] MEDS: PANTOprazole SOD 40 MG TAB PO SCH (08:11)
[2016-09-25] MEDS: MELOXICAM 7.5 MG TAB PO SCH (08:11)
[2016-09-25] MEDS: INSULIN GLARGINE SOLOSTAR 100 UNITS/ML 3 ML PEN SC SCH (08:14)
[2016-09-25] MEDS: INSULIN ASPART 100 UNITS/ML 3 ML PEN SC SCH ×3 (08:14→16:35)
[2016-09-25] MEDS ORDERED: INSULIN GLARGINE SOLOSTAR 100 UNITS/ML 3 ML PEN SC ONE (11:30)
[2016-09-25] MEDS ORDERED: DXY100 PO (11:36)
[2016-09-25] MEDS ORDERED: LSX20 PO (11:36)
[2016-09-25] MEDS ORDERED: PRED10TA PO (11:36)
[2016-09-25] MEDS ORDERED: METF1000 PO (11:36)
[2016-09-25] MEDS ORDERED: IPRASOL4 INH (11:36)
[2016-09-25] MEDS ORDERED: ALBINS INH (11:36)
--- NOTE | 2016-09-25 12:02 | Discharge Instructions ---
Discharge Instructions Admission Reason for Admission: Copd Exacerbation Discharge Discharge Diagnosis / Problem: COPD exacerbation Discharge Goals Goal(s): Diagnostic testing, Therapeutic intervention Activity Recommendations Activity Limitations: resume your previous activity (with oxygen as outlined above) . Instructions / Follow-Up Instructions / Follow-Up COPD exacerbation - COPD exacerbations can take several weeks to months to fully resolve. You have been steadily improving on the current treatments. - As far as keeping your breathing controlled at home, we recommend that you stay on 2-3 L of oxygen when resting and 4-5 L when you're moving or exerting yourself. This should help you feel less short of breath - We also recommend getting a pulse oximeter at the pharmacy (we'll write you a prescription) so you can check your oxygen levels and know when you should up your oxygen. Ideally, your O2 should be at 92% or higher. - You'll be following up with your primary doctor soon and they should be able to answer any questions we don't answer. If you feel that your breathing gets worse and it isn't improving with your treatments, call your doctor and they can see you or directly admit you to the hospital again. CHF (fluid in the lungs) - Your heart failure may have been causing some of your shortness of breath. Based on what you told us here in the hospital you may have been having a little bit too much fluid in your lungs for a long time. Since increasing your lasix dose you've been breathing much better. We're recommending that you keep taking this increased dose of lasix to help keep you from taking on too much fluid and having difficulty breathing. - Lasix can cause some changes in your levels of electrolyte levels so we'd like you to get some labs done in about a week to check that they are doing ok. - Follow up with your primary doctor about future strategies for controlling your heart failure. Diabetes - Based on your labs, we suspect that your sugars have been somewhat high even out of the hospital when you weren't on steroids. While you have been on insulin here in the hospital, we know that it can be difficult to manage insulin on your own and we would like to return you to oral medications for your diabetes. - We recommended increasing your metformin dose to help control your sugars better when you get out of the hospital. This medication shouldn't put you at risk for low blood sugars and is very safe. blood clots/follow up INR - Although you don't have any blood clots in your lungs right now, it's important to continue taking your coumadin to prevent future blood clots from forming. - It's important to follow this medication closely to make sure that your levels don't get too high or too low. You should get a lab called an INR done every week to check and make sure that your blood thinners are working probably. - Follow up with your primary care doctor for any other questions or concerns about your blood clots. Call your Primary Care doctor if any of the following symptoms or problems start or get worse: * Shortness of breath or difficulty breathing * Wake up at night short of breath * Chest pain * Cough * Swelling of your hands, feet, or legs * More fatigued or tired with your normal activity * Palpitations - sudden fast heart beats WEIGHT * Weigh yourself every morning after using the bathroom. * Use the same scale. * Wear the same amount of clothing. * Write your weight down on a chart. * Call your Primary Care doctor if you gain more than 2-3 pounds in 1-2 days. MEDICATIONS * Use this discharge instruction sheet for medication instructions. * Take your medications at the time your doctor ordered. * Do not skip a dose of your medicines. * If you miss a dose of medicine, take it as soon as possible, but DO NOT DOUBLE A DOSE. * Read your medicine information when you get home. * Know all of the side effects of your medicine. If in doubt, ask your pharmacist * Call your Primary Care doctor's office if you have any side effects. * Be sure all of your doctors know what medicine and herbs you take (including cold, flu, and herbal medicine). Take the following with you to your follow-up doctor appointments: * Weight Chart * Medication List * List of questions Do not drink excessive alcohol, beer or wine. Current Hospital Diet Patient's current hospital diet: AHA Diet (Heart Healthy), Diabetes Type 2 Diet Discharge Diet Recommended Diet: Low Sodium Diet (2gm Na), Diabetes Type 2 Diet Pending Studies Studies pending at discharge: no Laboratory Results Hemoglobin A1c Test 09/22/16 05:57 Range/Units Estimated Average Glucose 183 mg/dl Hemoglobin A1c 8.0 H 4.5-5.6 % Medical Emergencies . Who to Call and When: Call 911 or go to the Emergency Room if: * If at any time you feel your situation is an emergency * You have tightness or pain in your chest that does not go away with rest or Nitroglycerin * You are very short of breath even with rest . Non-Emergent Contact Non-Emergency issues call your: Primary Care Provider . . "Provider Documentation" section prepared by Jose Osorio. VTE Core Measure Inpt VTE Proph given/why not?: Warfarin (Coumadin)
--- NOTE | 2016-09-25 17:17 | Discharge Summary ---
Discharge Summary Admission Date: Sep 21, 2016 at 23:12 Discharge Date: Sep 25, 2016 Discharge Disposition: Home with services Principal Diagnosis: COPD exacerbation Problems/Secondary Diagnoses: acute on chronic diastolic CHF exacerbation Procedures: ECHO: Interpretation Summary Name: ROSA HASSAN Study Date: 09/23/2016 09:54 AM BP: 132/73 mmHg Patient Location: [facility]\S\N284\S\2 HR: 85 : 1945 (M/d/yyyy) Gender: Female Height: 63 in Age: 71 yrs Ethnicity: [place] Weight: 196 lb Ordering Physician: Jose Osorio Referring Physician: Self, Referred Performed By: Danielle Reyes [facility] Reason For Study: CHF BSA: 1.9 m2 -- Conclusions -- 1. Normal LV size and wall thickness. 2. Normal LV function. LVEF 65-70%. No regional wall motion abnormalities. 3. Normal RV size and function. 4. No significant valvular pathology. 5. Normal estimated RA and PA pressures. 6. No prior studies for comparison. Procedure Details A complete two-dimensional transthoracic echocardiogram was performed (2D, M- mode, Doppler and color flow Doppler). A contrast injection of Definity was performed to improve assessment of LV function. Contrast was injected into an intravenous site in the right arm. One vial of Definity ultrasound contrast was diluted in normal saline to a total volume of 10 ml. A total of '2' ml of solution was administered during imaging. Lot # [id number] of Definity utilized for procedure. Expiration date . The attending nurse who injected the contrast agent was Daniela Weiss RN. Left Ventricle The left ventricle is grossly normal size. There is normal left ventricular wall thickness. Ejection Fraction = 65-70%. Right Ventricle The right ventricle is grossly normal size. The right ventricular systolic function is normal. Atria The left atrial size is normal. Right atrial size is normal. No ASD detected; PFO is not assessed. Mitral Valve The mitral valve is not well visualized. There is no mitral valve stenosis. There is trace mitral regurgitation. Tricuspid Valve The tricuspid valve is not well visualized. There is no tricuspid stenosis. There is trace tricuspid regurgitation. Aortic Valve The aortic valve is not well visualized. No hemodynamically significant valvular aortic stenosis. There is no significant aortic regurgitation. Pulmonic Valve The pulmonary valve is inadequately visualized, but the Doppler data is adequate for interpretation. Pulmonic stenosis is absent. There is no significant pulmonary regurgitation. Great Vessels The aortic root and proximal ascending aorta are normal sized. Normal inferior vena cava size and collapsability with sniff indicates a normal right atrial pressure of 3 mmHg Hemoglobin A1c Test 09/22/16 05:57 Range/Units Estimated Average Glucose 183 mg/dl Hemoglobin A1c 8.0 H 4.5-5.6 % Last Resulted CBC 09/22/16 05:57 Last Resulted BMP 09/24/16 07:25 Medication Reconciliation New Medications: Metformin Hcl (Glucophage) 1,000 Mg Tab 1 TAB PO BID for 30 Days, #60 TAB 5 Refills Prednisone Tab (Prednisone) 10 Mg Tab 10 MG PO UD, #42 TAB [id number] then [id number] then [id number] then [id number] then [id number] then [id number] then stop Albuterol Sulf (Albuterol Sulfate) 2.5 Mg/3 Ml Nebu 2.5 MG INH Q4H PRN for sob/wheezing, #60 UNITS Doxycycline Hyclate (Doxycycline Hyclate) 100 Mg Cap 100 MG PO BID, #14 CAP Furosemide (Furosemide) 20 Mg Tab 40 MG PO QAM, #30 TAB Continued Medications: Calcium Carbonate-Cholecalcife (Oyster Shell Calcium + D) 1 Tab Tab 1 TAB PO QAM Clonazepam (Clonazepam) 0.5 Mg Tab 0.5 MG PO NOON Fluticasone Propionate (Nasal) (Flonase Allergy Relief) 50 Mcg/Act Spr 1 SPRAY NA DAILY Gabapentin (Neurontin) 300 Mg Cap 300 MG PO BID, CAP Ipratropium-Albuterol (Duoneb) 3 Ml Nebu 1 TREATMENT INH QID, #120 INHA (This prescription has been renewed) Levothyroxine Sodium (Synthroid) 25 Mcg Tab 25 MCG PO QAM, TAB Meloxicam (Meloxicam) 7.5 Mg Tab 7.5 MG PO BID Mirtazapine (Remeron) 45 Mg Tab 45 MG PO HS, #30 TAB Mometasone Furoate-Formoterol (Dulera 200/5 Mcg) 1 Aer Aer 1 PUFF INH BID, INHALER Montelukast Sodium (Singulair) 10 Mg Tab 10 MG PO HS, TAB Multiple Vitamins W/ Iron (Multi Vitamin with Iron) 1 Tab Tab 1 TAB PO QAM Pantoprazole (Protonix) 40 Mg Tab 40 MG PO QAM, #30 TAB Potassium Chloride (Klor-Con M20) 20 Meq Tabcr 20 MEQ PO BID Quetiapine Fumarate (Seroquel) 400 Mg Tab 400 MG PO HS, TAB Ranitidine (Zantac) 150 Mg Tab 150 MG PO QPM, TAB Tiotropium [place] (Spiriva Handihaler) 30 Puff/540 Mcg Aerp 1 CAP INH DAILY, INHALER Warfarin Sod (Coumadin) 2.5 Mg Tab 2.5 MG PO DAILY@1800, TAB TAKE WITH 4MG TOTAL 6.5 MG DAILY Warfarin Sodium (Coumadin) 4 Mg Tab 4 MG PO DAILY@1800, TAB Discontinued Medications: Furosemide (Lasix) 20 Mg Tab 20 MG PO QAM, TAB Metformin Hcl (Glucophage) 500 Mg Tab 500 MG PO BID, TAB Discharge Exam Physical Exam: General Appearance: no apparent distress Eyes: EOMI ENT: hearing grossly normal Respiratory/Chest: normal breath sounds, no respiratory distress, no accessory muscle use, + wheezing (faint wheezing globally, much improved from original exams) Extremities: normal inspection Neurologic/Psychiatric: tool adjuster II-XII nml as tested, alert, normal mood/affect (pleasantly anxious) Skin: normal color, warm/dry Hospital Course acute hypoxic respiratory failure -from COPD and CHF -improving COPD exacerbation - -slowly improving -appearing stable for discharge and now she also feels ready for discharge ( also discussed SNF/rehab options - but she feels she will do well at home) -continue duonebs QID, albuterol prn sob/wheeze -taper prednisone over next 8 days -finish 10 days total of doxy -asked for records of prior PFTs - not sent ??ever done - would have done in near future as outpt if not done recently CHF - acute on chronic diastolic - -improved w increase of PO lasix, increase daily dose to 40mg, follow status, follow BMP periodically as outpt (would check next week) -echo noted Recent PEs - pt on Coumadin - continue close f/u of INR - next check should be next week NIDDM - A1c 8, while acutely sugars will improve w reduction in steroids, did appear with A1c being up to benefit from additional metformin - increased to 1000mg bid, f/u PCP Hypothyroid - cont synthroid Gerd - takes protonix and Ranitidine - continued hypomagnesemia - repleted PO - would repeat mag level at outpt f/u labs next week anxiety - reasonable. continue home meds. dispo - definitely improving, safe/stable for home and feels up to going home Total Time Spent: Greater than 30 minutes This includes examination of the patient, discharge planning, medication reconciliation, and communication with other providers. Discharge Instructions Please refer to the electronic Patient Visit Report (Discharge Instructions) for additional information. Additional Copies To Owen Lucas MD
[2016-09-25] MEDS ORDERED: INSULIN GLARGINE SOLOSTAR 100 UNITS/ML 3 ML PEN SC SCH (21:00)
[2016-11-09] MEDS ORDERED: XRL20 PO (10:53)
[2016-11-09] MEDS ORDERED: MGNO400 PO (10:53)
[2016-11-09] MEDS ORDERED: ZNT150 PO (10:53)
[2016-11-09] MEDS ORDERED: PRED10TA PO (10:53)
[2016-11-09] MEDS ORDERED: DLR500 PO (10:53)
[2017-04-18] MEDS ORDERED: LVQ500 PO (12:33)
[2017-04-18] MEDS ORDERED: PRED20TA PO (12:33)
[2017-05-12] MEDS ORDERED: ARFO15NE INH ×2 (11:58→16:39)
[2017-05-12] MEDS ORDERED: PLMINS INH ×2 (11:58→16:39)
== END 2016-09-25 16:53 | disposition home health service (06) | DRG 190 ==
LOC: ENRESERVDT → ENRESERVTM → C.EDB 21:32 → C.MED 23:12
PROVIDERS: ADMIT Internal Medicine; ATTEND Family Medicine
DX: J44.1 Chronic obstructive pulmonary disease with (acute) exacerbation (principal); I50.33 Acute on chronic diastolic (congestive) heart failure; J96.01 Acute respiratory failure with hypoxia; I25.10 Atherosclerotic heart disease of native coronary artery without angina pectoris; Z99.81 Dependence on supplemental oxygen; Z86.711 Personal history of pulmonary embolism; K21.9 Gastro-esophageal reflux disease without esophagitis; Z86.61 Personal history of infections of the central nervous system; Z79.01 Long term (current) use of anticoagulants; E03.9 Hypothyroidism, unspecified; E11.9 Type 2 diabetes mellitus without complications; Z82.49 Family history of ischemic heart disease and other diseases of the circulatory system; Z87.891 Personal history of nicotine dependence; Z88.7 Allergy status to serum and vaccine; Z91.018 Allergy to other foods; Z91.048 Other nonmedicinal substance allergy status; Z79.899 Other long term (current) drug therapy; E83.42 Hypomagnesemia; F41.9 Anxiety disorder, unspecified; Z85.43 Personal history of malignant neoplasm of ovary

== ENCOUNTER 2016-11-03 23:00 | Inpatient (IN) | payer OTHER ==
[~2016-11-03] VITALS: Ht 160 cm; Wt 87.2 kg
[~2016-11-03 23:00] MED LIST: ALBINS INH; CALC-211 PO; CMD/25 PO; DXY100 PO; FLUT0.15 NAE; GABA-113 PO; IPRASOL4 INH; KLN5 PO; LEVO25TA PO; LSX20 PO; MBC75 PO; MCRK20 PO; METF1000 PO; MIRT45TA PO; MOME200A INH; MONT1TAB3 PO; MULT-1028 PO; PANT40TA PO; PRED10TA PO; QUET1TAB13 PO; SPRIN/30 INH; WARF4TAB PO; ZNTT/150 PO
[2016-11-03] MEDS ORDERED: ALBUT/IPRATROP 3MG/0.5MG NEB 3 ML VIAL INH STA (23:17)
[2016-11-03 23:46] LABS: BASO % 0.5 %; BASO ABS # 0.05 K/uL (0-0.2); COMPLETE YES; EOS % 4.7 %; HEMATOCRIT 31.1 % (37-47); IG% 0.2 %; LYMPH % 32.5 %; LYMPH ABS # 3.29 K/uL (1.2-3.4); MEAN CELL VOLUME 77.6 fL (80-100); MEAN CORPUSCULAR HEMOGLOBIN 23.9 pg (25-34); MEAN CORPUSCULAR HGB CONC 30.9 g/dl (32-36); MONO % 10.4 %; NEUT % 51.7 %; PLATELET COUNT 433 K/uL (130-400); RED BLOOD COUNT 4.01 M/uL (4.2-5.4); WHITE BLOOD COUNT 10.11 K/uL (4.8-10.8)
--- NOTE | 2016-11-03 23:50 | EMERGENCY ROOM VISIT NOTE ---
History Report prepared by Bianka: Amber Love Under the Supervision of: Dr. Juan aRo M.D. First contact with patient: 23:12 Chief Complaint: RESPIRATORY PROBLEMS Stated Complaint: BREATHING DIFFICULTY Nursing Triage Summary: Pt started having increased shortness of breath about 2 days ago, stated she wasn't kaity to talk. had been taking home duonebs with no relief. Increased today and patient said she wasn't getting better. Pt on chronic 2L Nasal cannula. History of Present Illness The patient is a 71 year old female who presents to the Emergency Room with complaints of worsening respiratory problems for the past couple of days. She states that she has been feeling increasingly short of breath. This is worse with exertion. She has difficulty talking due to her shortness of breath. She has a non-productive cough. The patient is experiencing right sided chest pain and rib pain, which she believes to be secondary to her coughing. She also notes swelling in her legs, dizziness, and lightheadedness. She has felt feverish but has not checked her temperature. The patient has a history of COPD and states that this feels similar to has she has felt with her previous COPD exacerbations. She is always on 2L of O2. She has been using increased DuoNebs at home without any relief. She denies any recent steroid use. The patient was brought to the ED by ambulance. She was given 2 DuoNebs and Solu-Medrol en route. Source of History: patient Onset: a couple of days ago Position: chest (respiratory) Quality: other (SOB) Timing: worsening Modifying Factors (Worsening): exertion, other (talking) Associated Symptoms: + chest pain, + cough Review of Systems See HPI for pertinent positives & negatives. A total of 10 systems reviewed and were otherwise negative. Past Medical & Surgical Medical Problems: (1) Acid reflux (2) CHF (congestive heart failure) (3) COPD (chronic obstructive pulmonary disease) (4) Hypoxia (5) Meningitis (6) Ovarian cancer Family History No pertient family history secondary to age Social History Smoking Status: Former Smoker Alcohol Use: none Drug Use: none Housing Status: lives with family Current/Historical Medications Scheduled Calcium Carbonate-Cholecalcife (Oyster Shell Calcium + D), 1 TAB PO QAM Clonazepam (Clonazepam), 0.5 MG PO NOON Fluticasone Propionate (Nasal) (Flonase Allergy Relief), 1 SPRAY NA DAILY Furosemide (Furosemide), 40 MG PO QAM Gabapentin (Neurontin), 300 MG PO BID Ipratropium-Albuterol (Duoneb), 1 TREATMENT INH QID Levothyroxine Sodium (Synthroid), 25 MCG PO QAM Meloxicam (Meloxicam), 7.5 MG PO BID Metformin Hcl (Glucophage), 1 TAB PO BID Mirtazapine (Remeron), 45 MG PO HS Mometasone Furoate-Formoterol (Dulera 200/5 Mcg), 1 PUFF INH BID Montelukast Sodium (Singulair), 10 MG PO HS Multiple Vitamins W/ Iron (Multi Vitamin with Iron), 1 TAB PO QAM Pantoprazole (Protonix), 40 MG PO QAM Potassium Chloride (Klor-Con M20), 20 MEQ PO BID Quetiapine Fumarate (Seroquel), 400 MG PO HS Ranitidine (Zantac), 150 MG PO QPM Tiotropium [place] (Spiriva Handihaler), 1 CAP INH DAILY Warfarin Sod (Coumadin), 2.5 MG PO DAILY@1800 Warfarin Sodium (Coumadin), 4 MG PO DAILY@1800 Scheduled PRN Albuterol Sulf (Albuterol Sulfate), 2.5 MG INH Q4H PRN for sob/wheezing Allergies Coded Allergies: Rabies Vaccine (Unverified Allergy, Severe, HIVES, 11/04/16) Ragweed (Unverified Allergy, Unknown, UNKNOWN, 11/04/16) Tomato (Unverified Allergy, Unknown, HIVES, 11/04/16) Physical Exam Vital Signs Date Time Temp Pulse Resp B/P Pulse Ox O2 Delivery O2 Flow Rate FiO2 11/03/16 23:09 104 11/03/16 23:02 97 Nasal Cannula 2.0 11/03/16 23:02 37.2 99 21 120/103 97 Nasal Cannula 2.0 Physical Exam GENERAL: Patient is in moderate distress and uncomfortable appearing. She is chronically unwell appearing. HEENT: No acute trauma, normocephalic atraumatic, mucous membranes moist, no nasal congestion, no scleral icterus. NECK: No stridor, no adenopathy, no meningismus, trachea is midline. LUNGS: Dyspneic and tachypneic with tight lung sounds and diffuse wheezing. HEART: Regular rate and rhythm. No murmurs, rubs, gallops appreciated. ABDOMEN: Soft, nontender, bowel sounds positive, no masses appreciated, no peritonitis. BACK: No midline tenderness, no CVA tenderness EXTREMITIES: Normal motion all extremities, no cyanosis, no edema. NEUROLOGIC: Alert and oriented, no acute motor or sensory deficits, no focal weakness, cranial nerves grossly intact. SKIN: No rash, no jaundice, no diaphoresis. Medical Decision & Procedures ER Provider Diagnostic Interpretation: X ray results are stated below per my interpretation: Chest: 1 view: No infiltrate, no effusion, normal cardiac border. Similar to previous. Laboratory Results 11/03/16 23:20 Red Blood Count 4.01, Mean Corpuscular Volume 77.6, Mean Corpuscular Hemoglobin 23.9, Mean Corpuscular Hemoglobin Concent 30.9, Mean Platelet Volume 9.0, Neutrophils (%) (Auto) 51.7, Lymphocytes (%) (Auto) 32.5, Monocytes (%) (Auto) 10.4, Eosinophils (%) (Auto) 4.7, Basophils (%) (Auto) 0.5, Neutrophils # (Auto ) 5.22, Lymphocytes # (Auto) 3.29, Monocytes # (Auto) 1.05, Eosinophils # (Auto ) 0.48, Basophils # (Auto) 0.05 11/03/16 23:20 Test 11/03/16 23:20 11/03/16 23:30 White Blood Count 10.11 K/uL (4.8-10.8) Red Blood Count 4.01 M/uL (4.2-5.4) Hemoglobin 9.6 g/dL (12.0-16.0) Hematocrit 31.1 % (37-47) Mean Corpuscular Volume 77.6 fL (80-100) Mean Corpuscular Hemoglobin 23.9 pg (25-34) Mean Corpuscular Hemoglobin Concent 30.9 g/dl (32-36) Platelet Count 433 K/uL (130-400) Mean Platelet Volume 9.0 fL (7.4-10.4) Neutrophils (%) (Auto) 51.7 % Lymphocytes (%) (Auto) 32.5 % Monocytes (%) (Auto) 10.4 % Eosinophils (%) (Auto) 4.7 % Basophils (%) (Auto) 0.5 % Neutrophils # (Auto) 5.22 K/uL (1.4-6.5) Lymphocytes # (Auto) 3.29 K/uL (1.2-3.4) Monocytes # (Auto) 1.05 K/uL (0.11-0.59) Eosinophils # (Auto) 0.48 K/uL (0-0.5) Basophils # (Auto) 0.05 K/uL (0-0.2) RDW Standard Deviation 50.0 fL (36.4-46.3) RDW Coefficient of Variation 17.5 % (11.5-14.5) Immature Granulocyte % (Auto) 0.2 % Immature Granulocyte # (Auto) 0.02 K/uL (0.00-0.02) Prothrombin Time 19.9 SECONDS (9.0-12.0) Prothromb Time International Ratio 1.8 (0.9-1.1) Activated Partial Thromboplast Time 34.3 SECONDS (21.0-31.0) Partial Thromboplastin Ratio 1.3 Anion Gap 14.0 mmol/L (3-11) Est Creatinine Clear Calc Drug Dose 49.6 ml/min Estimated GFR () 58.1 Estimated GFR (Non- 50.1 BUN/Creatinine Ratio 16.6 (10-20) Calcium Level 9.1 mg/dl (8.5-10.1) Magnesium Level 1.4 mg/dl (1.8-2.4) Total Creatine Kinase 96 U/L (26-192) Creatine Kinase MB 2.1 ng/ml (0.5-3.6) Creatine Kinase MB Ratio 2.2 (0-3.0) Troponin I < 0.015 ng/ml (0-0.045) Bedside Lactic Acid Venous 3.92 mmol/L (0.90-1.70) Laboratory results as reviewed by me. Medications Administered Medications (Trade) Dose Ordered Sig/Lulú Route Start Time Stop Time Status Last Admin Dose Admin Albuterol/ Ipratropium (Duoneb) 6 ml NOW STAT INH 11/03/16 23:17 11/03/16 23:19 DC 11/03/16 23:59 6 ML ECG Indication: SOB/dyspnea Rate (beats per minute): 103 Rhythm: sinus tachycardia Findings: no acute ischemic change, no ectopy ED Course 2312: The patient was evaluated in room B7. A complete history and physical exam was performed. 2317: DuoNeb 6 ml INH 0007: NSS 1000 ml @ 999 mls/hr IV 0011: I reassessed the patient at this time. She is feeling better and resting comfortably. I discussed the results and treatment plan with the patient. I answered all pertaining questions that she had. She expressed understanding and verbalized agreement. 0013: Vancomycin HCl/Sodium Chloride 500 ml @ 200 mls/hr IV, Zosyn 4.5 gm IV 0014: Magnesium Sulfate 2gm IV 0033: I spoke with Dr. Norris. We discussed the patients results and treatment plan. The patient will be evaluated by the [facility] for further management. Medical Decision Differential: Infectious, Reactive Airway Disease, Pneumonia, Pneumothorax, COPD , CHF, ACS, Pulmonary Embolism, MSK, GI, Dissection, amongst other etiologies entertained. 71 yr old female brought in by EMS for worsening SHOB. 2 Nebs and Solumedrol [employer] with quite poor lung exam on arrival. Given another 2 nebs with mild improvement though still poor lung sounds. CXR clear though with lactic acidosis and symptoms suspect lung source of sepsis though may have just been hypoxic throughout day leading to lactic acidosis. Mild tachy likely neb related and with INR 1.[address] PE studies as this much less likely. Trop OK and EKG without acute ischemia. No evidence dissection. Consults Time Called: 002 Consulting Physician: Dr. Norris Returned Call: [address] Norris. We discussed the patients results and treatment plan. The patient will be evaluated by the [facility] for further management. Impression Primary Impression: COPD exacerbation Additional Impressions: Sepsis Lactic acidosis Hypomagnesemia Scribe Attestation The scribe's documentation has been prepared under my direction and personally reviewed by me in its entirety. I confirm that the note above accurately reflects all work, treatment, procedures, and medical decision making performed by me. Departure Information Dispostion Being Evaluated By Hospitalist Referrals No Doctor, Assigned (PCP) Patient Instructions [facility] Problem Qualifiers Additional Impressions: Sepsis Sepsis type: sepsis due to unspecified organism Qualified Codes: A41.9 - Sepsis, unspecified organism
[2016-11-03 23:56] LABS: INR 1.8 (0.9-1.1); PARTIAL THROMBOPLASTIN RATIO 1.3; PROTHROMBIN TIME (PATIENT) 19.9 SECONDS (9.0-12.0)
[2016-11-04] VITALS (10 sets, daily range): BP systolic 112–131; BP diastolic 68–82; PULSE 81–92; TEMP 36.2–37.1; O2SAT 91–98; Ht 160 cm; Wt 87.2 kg
[2016-11-04 00:04] LABS: BLOOD UREA NITROGEN 18 mg/dl (7-18); BUN/CREATININE RATIO 16.6 (10-20); CALCIUM 9.1 mg/dl (8.5-10.1); CARBON DIOXIDE 28 mmol/L (21-32); CHLORIDE 98 mmol/L (98-107); GLUCOSE 144 mg/dl (70-99); MAGNESIUM 1.4 mg/dl (1.8-2.4); POTASSIUM 3.6 mmol/L (3.5-5.1); SODIUM 140 mmol/L (136-145)
[2016-11-04] MEDS ORDERED: SODIUM CHLORIDE 0.9% 1000ML 1,000 ML IV STA (00:07)
[2016-11-04 00:08] LABS: CKMB/CK RATIO 2.2 (0-3.0)
[2016-11-04] MEDS ORDERED: PIPERACILLIN/TAZOBACTAM 4.5 GM/100ML D5W IV STA (00:13)
[2016-11-04] MEDS ORDERED: MAGNESIUM SULFATE 1GM / D5W 1 GM BAG IV STA (00:14)
[2016-11-04] MEDS ORDERED: VANCOMYCIN INJ 1,000 MG in SODIUM CHLORIDE 0.9% 250ML 250 ML IV STA (00:38)
[2016-11-04] MEDS ORDERED: ZOLPIDEM TARTRATE 5 MG TAB PO PRN (00:45)
[2016-11-04] MEDS ORDERED: ONDANSETRON INJ 2 MG/ML 2 ML VIAL IV PRN (00:45)
[2016-11-04] MEDS ORDERED: ACETAMINOPHEN 325 MG TAB PO PRN (00:45)
[2016-11-04] MEDS ORDERED: NITROGLYCERIN 0.4 MG SL PER TAB CHARGE SL PRN (00:45)
[2016-11-04] MEDS ORDERED: GLUCAGON FOR INJ 1 MG VIAL SQ PRN (01:00)
[2016-11-04] MEDS ORDERED: GLUCOSE 40% GEL 15 GM TUBE PO PRN (01:00)
[2016-11-04] MEDS ORDERED: GLUCOSE 10 TABS/TUBE PO PRN (01:00)
[2016-11-04] MEDS ORDERED: DEXTROSE 50% 50 ML SYR IV PRN (01:00)
[2016-11-04] MEDS ORDERED: VANCOMYCIN INJ 2,200 MG in SODIUM CHLORIDE 0.9% 500ML 500 ML IV STA (01:13)
[2016-11-04] MEDS ORDERED: PIPERACILL/TAZOBAC CONSULT ACTIVE PRN (01:45)
[2016-11-04] MEDS ORDERED: VANCOMYCIN CONSULT ACTIVE PRN (01:45)
[2016-11-04] MEDS: MIRTAZAPINE TAB 15 MG TAB PO SCH ×2 (02:37→21:20)
[2016-11-04] MEDS: METHYLPREDNISOLONE IV 20 MG in SYRINGE 0 ML IV SCH ×3 (02:38→17:22)
[2016-11-04] MEDS: QUETIAPINE FUMARATE 200 MG TAB PO SCH ×2 (02:38→21:21)
--- NOTE | 2016-11-04 02:41 | History and Physical ---
History & Physical Date & Time of Service: Nov 04, 2016 at 02:30 Chief Complaint: Copd Exacerbation, Hypoxia Primary Care Physician: Owen Lucas M.D. History of Present Illness Source: patient The patient is a 71-year-old female who presents to the emergency department with complaint of worsening cough and shortness of breath over the past couple days. She had been in hospital from September 21 through the for respiratory issues at that time, and reports that when she was discharged to home then her breathing had completely normalized. It wasn't until the past few days, when a number of sick people came to visit her, that she became progressively more sick again. She reports that she has felt feverish, with swelling in her legs, dizziness and lightheadedness. She has continued on her usual 2 L of oxygen at home, and has increased the frequency of her duonebs without any significant relief. Past Medical/Surgical History Medical Problems: (1) Acid reflux Status: Chronic (2) CHF (congestive heart failure) Status: Chronic (3) COPD (chronic obstructive pulmonary disease) Status: Chronic (4) Meningitis Status: Resolved (5) Ovarian cancer Status: Resolved Family History No pertient family history secondary to age Social History Smoking Status: Former Smoker Smokeless Tobacco Use: No Alcohol Use: none Drug Use: none Housing status: lives with family Occupational Status: retired Multi-Drug Resistant Organisms History of MDRO: No Allergies Coded Allergies: Rabies Vaccine (Unverified Allergy, Severe, HIVES, 11/04/16) Ragweed (Unverified Allergy, Unknown, UNKNOWN, 11/04/16) Tomato (Unverified Allergy, Unknown, HIVES, 11/04/16) Home Medications Scheduled Calcium Carbonate-Cholecalcife (Oyster Shell Calcium + D), 1 TAB PO QAM Clonazepam (Clonazepam), 0.5 MG PO NOON Fluticasone Propionate (Nasal) (Flonase Allergy Relief), 1 SPRAY NA DAILY Furosemide (Furosemide), 40 MG PO QAM Gabapentin (Neurontin), 300 MG PO BID Ipratropium-Albuterol (Duoneb), 1 TREATMENT INH QID Levothyroxine Sodium (Synthroid), 25 MCG PO QAM Meloxicam (Meloxicam), 7.5 MG PO BID Metformin Hcl (Glucophage), 1 TAB PO BID Mirtazapine (Remeron), 45 MG PO HS Mometasone Furoate-Formoterol (Dulera 200/5 Mcg), 1 PUFF INH BID Montelukast Sodium (Singulair), 10 MG PO HS Multiple Vitamins W/ Iron (Multi Vitamin with Iron), 1 TAB PO QAM Pantoprazole (Protonix), 40 MG PO QAM Potassium Chloride (Klor-Con M20), 20 MEQ PO BID Quetiapine Fumarate (Seroquel), 400 MG PO HS Ranitidine (Zantac), 150 MG PO QPM Tiotropium [place] (Spiriva Handihaler), 1 CAP INH DAILY Warfarin Sod (Coumadin), 2.5 MG PO DAILY@1800 Warfarin Sodium (Coumadin), 4 MG PO DAILY@1800 Scheduled PRN Albuterol Sulf (Albuterol Sulfate), 2.5 MG INH Q4H PRN for sob/wheezing Review of Systems The patient denies vision change, hearing change, sore throat, fevers, chills, sweats, weight change, nausea, vomiting, abdominal pain, pelvic pain, blood in urine or stool, dysuria, urinary frequency or urgency, memory loss, rash, abnormal bruising or bleeding, imbalance, focal or generalized weakness, numbness or tingling in arms or legs, arthralgias or myalgias, back or neck pain , night sweats, or allergy symptoms. The review of systems is otherwise negative other than for that already noted above, and at least 10 systems have been reviewed. Physical Exam Vital Signs Date Time Temp Pulse Resp B/P Pulse Ox O2 Delivery O2 Flow Rate FiO2 11/04/16 01:55 97 20 152/105 95 Room Air 11/04/16 01:00 103 19 95 Nasal Cannula 2.0 11/04/16 00:30 103 17 97 Nasal Cannula 2.0 11/04/16 00:00 101 15 100 Nasal Cannula 2.0 11/03/16 23:58 133/75 11/03/16 23:09 104 11/03/16 23:06 120/103 11/03/16 23:02 97 Nasal Cannula 2.0 11/03/16 23:02 37.2 99 21 120/103 97 Nasal Cannula 2.0 The patient is awake, well-developed and adequately nourished, alert and oriented 3, normocephalic and atraumatic, lying in bed and in no acute distress. HEENT--PERRL, EOMI, mucous membranes and oropharynx dry. Neck--supple, no JVD or bruits, thyroid normal, trachea midline, no adenopathy. Heart--normal S1 and S2, no extra beats, no murmurs, rubs or gallops. Lungs--few scattered wheezes bilaterally, no respiratory distress, no accessory muscle use. Transmitted upper airway sounds are noted. Abdomen--normal bowel sounds and soft, nontender and nondistended, no hernias or masses, no organomegaly. Extremities--no cyanosis, clubbing. There is bilaterally trace pitting Edema. There are good distal pulses b/l. Dermatologic--normal skin turgor, normal color, warm and dry, no abnormal lymph nodes, no rash. Neurologic--cranial nerves II through XII grossly intact, motor and sensory examination normal. Rheumatologic--normal range of motion, nontender, muscles and joints. Psychiatric--normal affect. Diagnostics Laboratory Results Results Past 24 Hours Test 11/03/16 23:20 11/03/16 23:30 Range/Units White Blood Count 10.11 4.8-10.8 K/uL Red Blood Count 4.01 4.2-5.4 M/uL Hemoglobin 9.6 12.0-16.0 g/dL Hematocrit 31.1 37-47 % Mean Corpuscular Volume 77.6 80-100 fL Mean Corpuscular Hemoglobin 23.9 25-34 pg Mean Corpuscular Hemoglobin Concent 30.9 32-36 g/dl Platelet Count 433 130-400 K/uL Mean Platelet Volume 9.0 7.4-10.4 fL Neutrophils (%) (Auto) 51.7 % Lymphocytes (%) (Auto) 32.5 % Monocytes (%) (Auto) 10.4 % Eosinophils (%) (Auto) 4.7 % Basophils (%) (Auto) 0.5 % Neutrophils # (Auto) 5.22 1.4-6.5 K/uL Lymphocytes # (Auto) 3.29 1.2-3.4 K/uL Monocytes # (Auto) 1.05 0.11-0.59 K/uL Eosinophils # (Auto) 0.48 0-0.5 K/uL Basophils # (Auto) 0.05 0-0.2 K/uL RDW Standard Deviation 50.0 36.4-46.3 fL RDW Coefficient of Variation 17.5 11.5-14.5 % Immature Granulocyte % (Auto) 0.2 % Immature Granulocyte # (Auto) 0.02 0.00-0.02 K/uL Prothrombin Time 19.9 9.0-12.0 SECONDS Prothromb Time International Ratio 1.8 0.9-1.1 Activated Partial Thromboplast Time 34.3 21.0-31.0 SECONDS Partial Thromboplastin Ratio 1.3 Sodium Level 140 136-145 mmol/L Potassium Level 3.6 3.5-5.1 mmol/L Chloride Level 98 98-107 mmol/L Carbon Dioxide Level 28 21-32 mmol/L Anion Gap 14.0 3-11 mmol/L Blood Urea Nitrogen 18 7-18 mg/dl Creatinine 1.10 0.60-1.20 mg/dl Est Creatinine Clear Calc Drug Dose 49.6 ml/min Estimated GFR () 58.1 Estimated GFR (Non- 50.1 BUN/Creatinine Ratio 16.6 10-20 Random Glucose 144 70-99 mg/dl Calcium Level 9.1 8.5-10.1 mg/dl Magnesium Level 1.4 1.8-2.4 mg/dl Total Creatine Kinase 96 26-192 U/L Creatine Kinase MB 2.1 0.5-3.6 ng/ml Creatine Kinase MB Ratio 2.2 0-3.0 Troponin I < 0.015 0-0.045 ng/ml Bedside Lactic Acid Venous 3.92 0.90-1.70 mmol/L Microbiology Results 11/03/16 Blood Culture, Received Pending 11/03/16 Blood Culture, Received Pending EKG EKG shows sinus tachycardia at 104 bpm, with no acute ST-T changes. Impression Assessment and Plan COPD exacerbation with hypoxia--the patient be admitted to telemetry unit for close oxygen monitoring. She'll be placed on Vancomycin IV per renal dosing, Zosyn 3.375 mg IV every 8 hours, Solu-Medrol 20 mg IV every 8 hours, guaifenesin extended release 600 mg by mouth twice a day, nasal cannula 2 L of oxygen titrating to keep pulse ox greater than or equal to 92%. Continue Singulair 10 mg by mouth at bedtime. Pulmonary emboli--the patient continues on warfarin with INR mildly subtherapeutic at 1.8. We'll change her dosing from 6.5 mg to 7 mg daily and follow serial INR testing. CHF--continue furosemide 40 mg by mouth every morning, and potassium chloride 20 mEq by mouth twice a day. GERD--stop pantoprazole 40 mg by mouth every morning for now a vented is contributing to low magnesium, and increase ranitidine from 150 mg by mouth every afternoon to twice a day. Hypomagnesemia--1.4 on admission labs. And has received 2 g IV in the emergency department, with repeat pending for the a.m. Diabetes mellitus-- hold metformin, and place on Accu-Cheks before meals and at bedtime with NovoLog coverage. We'll need to be watched closely while on IV steroids. Hypothyroidism--continue levothyroxine sodium 25 g by mouth every morning. Anxiety/depression/insomnia--continue clonazepam 0.5 mg by mouth at noon, gabapentin 3 mg by mouth twice a day, mirtazapine 45 mg by mouth at bedtime, and Seroquel 40 mg by mouth at bedtime. Arthritis--continue meloxicam 7.5 mg by mouth twice a day. Allergic rhinitis--continue Flonase allergy relief 1 spray each nostril daily. Level of Care Telemetry Advanced Directives Existing Advance Directive: No Existing Living Will: No Existing Power of Client Professional: No Resuscitation Status FULL RESUSCITATION VTE Prophylaxis VTE Risk Assessment Done? Y/N: Yes Risk Level: Moderate Given or contraindicated: SCD's Social Service Consult None Apply
[2016-11-04] MEDS ORDERED: LEVALBUTEROL/IPRATROPIUM NEB INH SCH (03:00)
[2016-11-04] MEDS: LEVALBUTEROL 1.25MG/0.5ML NEB INH SCH ×4 (03:45→20:34)
[2016-11-04] MEDS: IPRATROPIUM BROMIDE NEB SOLN 0.02% 2.5 ML VIAL INH SCH ×4 (03:45→20:34)
[2016-11-04] MEDS ORDERED: PIPERACILL/TAZOBAC IV 3.375 GM in DEXTROSE 5% 100ML 100 ML IV SCH (06:00)
[2016-11-04] MEDS ORDERED: PIPERACILLIN/TAZOBACTAM 4.5 GM/100ML D5W ONE (06:12)
[2016-11-04] MEDS: PIPERACILL/TAZOBAC IV 4.5 GM in DEXTROSE 5% 100ML IV SCH ×3 (06:18→21:26)
--- NOTE | 2016-11-04 06:40 | DIAGNOSTIC IMAGING REPORT ---
CHEST ONE VIEW PORTABLE CLINICAL HISTORY: Shortness of breath. COMPARISON STUDY: Chest radiograph September 21, 2016. FINDINGS: Lung volumes are mildly diminished. There is no pneumothorax or pleural effusion. Bibasilar opacities, left greater than right, favor atelectasis. There is no evidence of pulmonary edema. Cardiac size is normal. Mediastinal contours are unremarkable. IMPRESSION: 1. Mild bibasilar opacities which favor atelectasis. 2. No evidence of pulmonary edema. Electronically signed by: Rick Canchola M.D. 11/04/2016 6:38 AM Dictated Date/Time: 11/04/2016 6:36 AM
[2016-11-04] MEDS: FLUTICASONE PROPIONATE NA SPR 16 GM BTL SCH (08:51)
[2016-11-04] MEDS: GUAIFENESIN 200 MG TAB PO SCH ×2 (08:53→21:19)
[2016-11-04] MEDS: CALCIUM 600MG + VIT D 400 IU TAB PO SCH (08:53)
[2016-11-04] MEDS: MELOXICAM 7.5 MG TAB PO SCH ×2 (08:53→21:19)
[2016-11-04] MEDS: CEROVITE ADV FORMULA TAB PO SCH (08:54)
[2016-11-04] MEDS: GABAPENTIN 300 MG CAP PO SCH ×2 (08:54→21:19)
[2016-11-04] MEDS: POTASSIUM CHLORIDE 20 MEQ TABCR PO SCH ×2 (08:54→21:18)
[2016-11-04] MEDS: FUROSEMIDE 20 MG TAB PO SCH (08:55)
[2016-11-04] MEDS: LEVOTHYROXINE 25 MCG TAB PO SCH (08:55)
[2016-11-04] MEDS: RANITIDINE HCL 150 MG TAB PO SCH ×2 (08:55→21:21)
[2016-11-04] MEDS ORDERED: PANTOprazole SOD 40 MG TAB PO SCH (09:00)
[2016-11-04] MEDS ORDERED: WARFARIN SOD 4 MG TAB PO SCH (09:00)
[2016-11-04] MEDS: INSULIN ASPART 100 UNITS/ML 3 ML PEN SC SCH ×4 (09:05→21:25)
[2016-11-04] MEDS: CLONAZEPAM 0.5 MG TAB PO SCH (13:16)
--- NOTE | 2016-11-04 15:07 | Progress Note ---
Subjective Date of Service: Nov 04, 2016. Subjective Pt evaluation today including: conversation w/ patient, conversation w/ family , physical exam, chart review, lab review, review of studies, review of inpatient medication list Feeling better in difficult breathing, still on NC O2 4-5 L/m. Some wheezing when up to the rest known and dyspnea on exertion, denied chest pain fever and chills, denied sputum Problem List Medical Problems: (1) Anemia Status: Acute (2) COPD exacerbation Status: Acute (3) COPD exacerbation Status: Acute (4) Hypomagnesemia Status: Acute (5) Hypoxia Status: Acute (6) Lactic acidosis Status: Acute (7) Sepsis Status: Acute Review of Systems Constitutional: + fatigue, No chills, No fever, No problem reported, No sweats , No weakness, No weight loss Eyes: No diplopia, No discharge, No eye pain, No redness, No worsening of vision ENT: No dental problems, No hearing loss, No nasal symptoms, No sore throat, No tinnitus, No trouble swallowing, No unusual epistaxis Respiratory: + cough, + shortness of breath, + wheezing, No dyspnea at rest, No dyspnea on exertion, No hemoptysis, No sputum Cardiac: No PND, No chest pain, No claudication, No edema, No orthopnea, No palpitations Abdomen: No constipation, No diarrhea, No nausea, No pain, No vomiting Musculoskeletal: No calf pain, No joint pain, No muscle pain, No swelling Female : No abnormal vaginal bleeding, No dysuria, No hematuria, No incontinence, No urinary frequency, No vaginal discharge Neurologic: No balance problems, No memory loss, No numbness/tingling, No paralysis, No vertigo, No weakness Psychiatric: No anhedonism, No anxiety, No depression symptoms, No insomnia, No substance abuse Heme: No abnormal bleeding/bruising, No clotting problems, No night sweats, No swollen lymph nodes Endo: No excessive thirst, No excessive urination, No fatigue Skin: No bleeding, No color change, No itch, No new/changing skin lesions, No rash Objective Vital Signs Date Time Temp Pulse Resp B/P Pulse Ox O2 Delivery O2 Flow Rate FiO2 11/04/16 12:00 36.8 81 18 128/78 96 Nasal Cannula 3.0 11/04/16 08:00 36.8 86 18 112/70 95 Nasal Cannula 3.0 11/04/16 07:28 95 11/04/16 07:27 91 16 95 Nasal Cannula 2.0 11/04/16 06:15 95 21 122/64 91 Nasal Cannula 11/04/16 05:59 11/04/16 05:45 97 21 92 11/04/16 05:28 114/62 11/04/16 05:15 102 21 92 11/04/16 05:10 103 21 115/61 92 Nasal Cannula 3.0 11/04/16 04:58 11/04/16 04:40 106 16 91 Nasal Cannula 2.0 11/04/16 04:28 115/59 11/04/16 04:10 105 18 92 11/04/16 03:58 135/60 11/04/16 03:45 81 16 96 Nasal Cannula 2.0 11/04/16 03:40 99 19 94 11/04/16 03:28 114/56 11/04/16 03:11 98 11/04/16 03:10 97 19 94 11/04/16 02:58 140/69 11/04/16 02:40 98 23 97 11/04/16 02:35 100 23 139/71 97 Nasal Cannula 2.0 11/04/16 02:33 11/04/16 02:05 96 20 95 11/04/16 01:58 11/04/16 01:55 97 20 152/105 95 Room Air 11/04/16 01:35 101 24 96 11/04/16 01:28 152/78 11/04/16 01:20 133/77 11/04/16 01:05 101 14 95 11/04/16 01:00 103 19 95 Nasal Cannula 2.0 11/04/16 00:30 103 17 97 Nasal Cannula 2.0 11/04/16 00:00 101 15 100 Nasal Cannula 2.0 11/03/16 23:58 133/75 11/03/16 23:09 104 11/03/16 23:06 120/103 11/03/16 23:02 97 Nasal Cannula 2.0 11/03/16 23:02 37.2 99 21 120/103 97 Nasal Cannula 2.0 Physical Exam General Appearance: WD/WN, no apparent distress, + obese Eyes: normal inspection, PERRL, EOMI, sclerae normal ENT: normal ENT inspection, hearing grossly normal, pharynx normal Neck: supple, no adenopathy, thyroid normal, no JVD, no carotid bruits, trachea midline Respiratory/Chest: chest non-tender, normal breath sounds, no respiratory distress, no accessory muscle use, + decreased breath sounds (significant), + wheezing (occasional) Cardiovascular: regular rate, rhythm, no edema, no gallop, no JVD, no murmur Abdomen: normal bowel sounds, non tender, soft, no organomegaly, no pulsatile mass Extremities: normal range of motion, non-tender, normal inspection, no pedal edema, no calf tenderness, normal capillary refill, pelvis stable 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, no motor/sensory deficits, alert, normal mood/affect, oriented x 3 Skin: normal color, warm/dry, no rash Lymphatic: no adenopathy Laboratory Results Last 24 Hours Test 11/03/16 23:20 11/03/16 23:30 11/04/16 04:01 11/04/16 08:18 White Blood Count 10.11 K/uL Red Blood Count 4.01 M/uL Hemoglobin 9.6 g/dL Hematocrit 31.1 % Mean Corpuscular Volume 77.6 fL Mean Corpuscular Hemoglobin 23.9 pg Mean Corpuscular Hemoglobin Concent 30.9 g/dl Platelet Count 433 K/uL Mean Platelet Volume 9.0 fL Neutrophils (%) (Auto) 51.7 % Lymphocytes (%) (Auto) 32.5 % Monocytes (%) (Auto) 10.4 % Eosinophils (%) (Auto) 4.7 % Basophils (%) (Auto) 0.5 % Neutrophils # (Auto) 5.22 K/uL Lymphocytes # (Auto) 3.29 K/uL Monocytes # (Auto) 1.05 K/uL Eosinophils # (Auto) 0.48 K/uL Basophils # (Auto) 0.05 K/uL RDW Standard Deviation 50.0 fL RDW Coefficient of Variation 17.5 % Immature Granulocyte % (Auto) 0.2 % Immature Granulocyte # (Auto) 0.02 K/uL Prothrombin Time 19.9 SECONDS Prothromb Time International Ratio 1.8 Activated Partial Thromboplast Time 34.3 SECONDS Partial Thromboplastin Ratio 1.3 Sodium Level 140 mmol/L Potassium Level 3.6 mmol/L Chloride Level 98 mmol/L Carbon Dioxide Level 28 mmol/L Anion Gap 14.0 mmol/L Blood Urea Nitrogen 18 mg/dl Creatinine 1.10 mg/dl Est Creatinine Clear Calc Drug Dose 49.6 ml/min Estimated GFR () 58.1 Estimated GFR (Non- 50.1 BUN/Creatinine Ratio 16.6 Random Glucose 144 mg/dl Calcium Level 9.1 mg/dl Magnesium Level 1.4 mg/dl Total Creatine Kinase 96 U/L Creatine Kinase MB 2.1 ng/ml Creatine Kinase MB Ratio 2.2 Troponin I < 0.015 ng/ml Bedside Lactic Acid Venous 3.92 mmol/L Lactic Acid Level 1.7 mmol/L Bedside Glucose 302 mg/dl Test 11/04/16 11:42 11/04/16 12:31 Bedside Glucose 277 mg/dl Assessment and Plan 71-year-old white female admitted on 11/03/2016 because of COPD exacerbation COPD exacerbation with hypoxia, possible pneumonia Chronic home O2 dependent resp failure History of Pulmonary emboli Possible pneumonia in the chest x-ray in the emergency room which was on portable view, associated with elevated lactase level will check two-view to clarify if has pneumonia or not Continue antibiotic, oxygen, nebulizer treatment is a chair Has been on Coumadin at home however INR mildly subtherapeutic at 1.8. Is changed change her dosing from 6.5 mg to 7 mg daily and follow serial INR testing. CHF--continue furosemide 40 mg by mouth every morning, stable Hypomagnesemia we'll replace potassium chloride 20 mEq by mouth twice a day. GERD--stop pantoprazole 40 mg by mouth every morning for now a vented is contributing to low magnesium, and increase ranitidine from 150 mg by mouth every afternoon to twice a day. Hypomagnesemia we'll follow-up Diabetes mellitus-- hold metformin, and place on Accu-Cheks before meals and at bedtime with NovoLog coverage. Check HbA1c Hypothyroidism--continue levothyroxine sodium 25 g by mouth every morning. Anxiety/depression/insomnia--continue clonazepam 0.5 mg by mouth at noon, gabapentin 3 mg by mouth twice a day, mirtazapine 45 mg by mouth at bedtime, and Seroquel 40 mg by mouth at bedtime. Arthritis--continue meloxicam 7.5 mg by mouth twice a day. Allergic rhinitis--continue Flonase allergy relief 1 spray each nostril daily. GI and DVT prophylaxis Continued [facility] stay due to: multiple IV medications needed Discharge planning: home
[2016-11-04 15:51] LABS: HEMATOCRIT 27.6 % (37-47); IG% 0.4 %; LYMPH % 8.2 %; MEAN CELL VOLUME 76.9 fL (80-100); MEAN CORPUSCULAR HEMOGLOBIN 23.7 pg (25-34); MEAN CORPUSCULAR HGB CONC 30.8 g/dl (32-36); MEAN PLATELET VOLUME 8.6 fL (7.4-10.4); MONO % 7.8 %; NEUT % 83.6 %; PLATELET COUNT 392 K/uL (130-400); RED BLOOD COUNT 3.59 M/uL (4.2-5.4); WHITE BLOOD COUNT 11.02 K/uL (4.8-10.8)
[2016-11-04 16:11] LABS: BUN/CREATININE RATIO 15.5 (10-20); CALCIUM 8.4 mg/dl (8.5-10.1); CREATININE 1.1 mg/dl (0.60-1.20); MAGNESIUM 2.2 mg/dl (1.8-2.4)
--- NOTE | 2016-11-04 16:26 | Pharmacy Progress Note ---
Pharmacy Antibiotic Consult Date of Service: Nov 04, 2016. Pharmacy Dosing Scope Pharmacy is consulted to initiate vancomycin and Zosyn IV dosing therapy, order appropriate labs and adjust drug dose/frequency. Subjective The patient is a 71 year old female admitted on Nov 04, 2016 at 00:50. Objective Height (Feet): 5 Height (Inches): 3.00 Weight (Kilograms): 91.500 Lab Results (24hrs): Laboratory Tests Test 11/03/16 23:20 11/04/16 15:35 BUN/Creatinine Ratio 16.6 15.5 Blood Urea Nitrogen 18 mg/dl 17 mg/dl Creatinine 1.10 mg/dl 1.10 mg/dl White Blood Count 10.11 K/uL 11.02 K/uL Red Blood Count 4.01 M/uL 3.59 M/uL Hemoglobin 9.6 g/dL 8.5 g/dL Hematocrit 31.1 % 27.6 % Mean Corpuscular Volume 77.6 fL 76.9 fL Mean Corpuscular Hemoglobin 23.9 pg 23.7 pg Mean Corpuscular Hemoglobin Concent 30.9 g/dl 30.8 g/dl Platelet Count 433 K/uL 392 K/uL Mean Platelet Volume 9.0 fL 8.6 fL Neutrophils (%) (Auto) 51.7 % 83.6 % Lymphocytes (%) (Auto) 32.5 % 8.2 % Monocytes (%) (Auto) 10.4 % 7.8 % Eosinophils (%) (Auto) 4.7 % 0.0 % Basophils (%) (Auto) 0.5 % 0.0 % Neutrophils # (Auto) 5.22 K/uL 9.22 K/uL Lymphocytes # (Auto) 3.29 K/uL 0.90 K/uL Monocytes # (Auto) 1.05 K/uL 0.86 K/uL Eosinophils # (Auto) 0.48 K/uL 0.00 K/uL Basophils # (Auto) 0.05 K/uL 0.00 K/uL Assessment & Plan Vancomycin: * Loading dose: 2200 mg IV X 1 dose * Maintenance dose: 1350mg IV every 18 hours * Trough level on 11/06 prior to 04:00 dose * Goal trough ~15-20mcg/mL * If MRSA swab negative, may consider de-escalating vancomycin Zosyn: * Loading dose: 4.5 grams IV x1 (infused over 30 minutes) * Maintenance dose: 4.5 grams IV every 8 hours (infused over 4hours) * no dose adjustment for CrCl above 20mL/min * higher dose chose for BMI >35kg/m2 and sepsis Pharmacy will continue to follow and will adjust dose/frequency as necessary. Thank you
[2016-11-04 16:28] LABS: COMPLETE YES; HYPOCHROMIA PRESENT; MICROCYTOSIS PRESENT; SCHISTOCYTES OCCASIONAL
[2016-11-04] MEDS: VANCOMYCIN INJ 1,350 MG in SODIUM CHLORIDE 0.9% 250ML 250 ML IV SCH (17:15)
[2016-11-04] MEDS: WARFARIN PO SCH ×2 (17:16)
[2016-11-04 19:45] LABS: INR 1.7 (0.9-1.1); PROTHROMBIN TIME (PATIENT) 19.1 SECONDS (9.0-12.0)
[2016-11-04] MEDS ORDERED: RANITIDINE HCL 150 MG TAB PO SCH (21:00)
--- NOTE | 2016-11-04 21:09 | DIAGNOSTIC IMAGING REPORT ---
CHEST 2 VIEWS ROUTINE CLINICAL HISTORY: Follow-up pneumonia. COMPARISON STUDY: Chest radiograph November 03, 2016. FINDINGS: There is no pneumothorax or pleural effusion. Mild cardiomegaly is noted. There is no evidence of pulmonary edema. There is mild left basilar opacity. IMPRESSION: Mild left basilar opacity. Atelectasis is favored although a small area of pneumonia could appear similar. Electronically signed by: Rick Canchola M.D. 11/04/2016 9:08 PM Dictated Date/Time: 11/04/2016 9:06 PM
[2016-11-04] MEDS: MAGNESIUM OXIDE 400 MG TAB PO SCH (21:18)
[2016-11-04] MEDS: MONTELUKAST SOD 10 MG TAB PO SCH (21:21)
[2016-11-05] VITALS (15 sets, daily range): BP systolic 117–132; BP diastolic 66–80; PULSE 78–107; TEMP 36.3–36.9; O2SAT 92–96
[2016-11-05] MEDS: LEVALBUTEROL 1.25MG/0.5ML NEB INH PRN (00:25)
[2016-11-05] MEDS: IPRATROPIUM BROMIDE NEB SOLN 0.02% 2.5 ML VIAL INH PRN (00:26)
[2016-11-05] MEDS: METHYLPREDNISOLONE IV 20 MG in SYRINGE 0 ML IV SCH ×2 (01:27→10:42)
[2016-11-05] MEDS: LEVALBUTEROL 1.25MG/0.5ML NEB INH SCH ×4 (03:00→19:10)
[2016-11-05] MEDS: IPRATROPIUM BROMIDE NEB SOLN 0.02% 2.5 ML VIAL INH SCH ×4 (03:00→19:10)
[2016-11-05] MEDS: PIPERACILL/TAZOBAC IV 4.5 GM in DEXTROSE 5% 100ML IV SCH (05:46)
[2016-11-05] MEDS: LEVOTHYROXINE 25 MCG TAB PO SCH (05:46)
--- NOTE | 2016-11-05 06:02 | Clinical Documentation Query ---
CLINICAL DOCUMENTATION QUERY 71 year old female with history of chronic respiratory failure who presents to the Emergency Room is moderate distress, dyspneic and tachypneic. Query #1/2 In your clinical opinion is this patient being managed for: ( x) Acute and chronic respiratory failure in setting of COPD exacerbation with pneumonia ( ) Other explanation of clinical findings (Please Explain) ( ) Unable to determine (Please Define) ( ) Need to Discuss ( ) Not Agree The medical record reflects the following clinical findings, treatment, and risk factors. Clinical Indicators: ED assessment stated patient is in moderate distress and uncomfortable appearing. Dyspneic and tachypneic with tight lung sounds and diffuse wheezing. CXR showed left basilar opacity and pneumonia is being hypothesized Treatment: telemetry monitoring, O2, Duonebs, IV Zosyn, IV Vancomycin, IV Solumedrol, Risk Factors: Age, COPD, chronic respiratory failure, and hypoxia per H&P. Query #2/2 H&P state chronic CHF w/o specificity. In your clinical opinion is this patient being managed for: ( x ) Chronic diastolic (Preserved EF) CHF ( ) Other explanation of clinical findings (Please Explain) ( ) Unable to determine (Please Define) ( ) Need to Discuss ( ) Not Agree The medical record reflects the following clinical findings, treatment, and risk factors. Clinical Indicators: On PO Lasix. An echo from 09/23/16 showed a normal EF (65-70%) Treatment: Telemetry, I/O's, daily weights, continued on PO Lasix Risk Factors: Age and CHF hx. Please clarify and document your clinical opinion in the progress notes and discharge summary. Terms such as "probable", "suspected", "likely", "questionable", "possible", or "still to be ruled out" are acceptable. IF IN AGREEMENT, YOU MUST DOCUMENT ABOVE DIAGNOSTIC STATEMENT IN DAILY PROGRESS NOTES AND DISCHARGE SUMMARY. This document is not part of the patient's record. Thank You, Dale Magana, RN [phone]
[2016-11-05 07:03] LABS: BASO % 0.1 %; BASO ABS # 0.01 K/uL (0-0.2); EOS % 0.2 %; HEMATOCRIT 28.8 % (37-47); IG% 0.4 %; LYMPH % 9.9 %; MEAN CELL VOLUME 76.4 fL (80-100); MEAN CORPUSCULAR HEMOGLOBIN 23.3 pg (25-34); MEAN CORPUSCULAR HGB CONC 30.6 g/dl (32-36); MEAN PLATELET VOLUME 8.7 fL (7.4-10.4); MONO % 5.4 %; PLATELET COUNT 400 K/uL (130-400); RED BLOOD COUNT 3.77 M/uL (4.2-5.4); WHITE BLOOD COUNT 13.13 K/uL (4.8-10.8)
[2016-11-05 07:12] LABS: INR 1.9 (0.9-1.1); PARTIAL THROMBOPLASTIN RATIO 1.2; PROTHROMBIN TIME (PATIENT) 20.5 SECONDS (9.0-12.0)
[2016-11-05 07:31] LABS: COMPLETE YES; MICROCYTOSIS PRESENT; OVALOCYTES 1+; TEAR DROP CELLS 1+
[2016-11-05 07:35] LABS: BUN/CREATININE RATIO 22.6 (10-20); CALCIUM 8.8 mg/dl (8.5-10.1); CREATININE 0.89 mg/dl (0.60-1.20); MAGNESIUM 2.5 mg/dl (1.8-2.4)
[2016-11-05] MEDS: CALCIUM 600MG + VIT D 400 IU TAB PO SCH (08:33)
[2016-11-05] MEDS: CEROVITE ADV FORMULA TAB PO SCH (08:33)
[2016-11-05] MEDS: MELOXICAM 7.5 MG TAB PO SCH ×2 (08:33→22:11)
[2016-11-05] MEDS: FLUTICASONE PROPIONATE NA SPR 16 GM BTL SCH (08:33)
[2016-11-05] MEDS: INSULIN ASPART 100 UNITS/ML 3 ML PEN SC SCH ×4 (08:33→21:00)
[2016-11-05] MEDS: FUROSEMIDE 20 MG TAB PO SCH (08:34)
[2016-11-05] MEDS: RANITIDINE HCL 150 MG TAB PO SCH ×2 (08:34→22:09)
[2016-11-05] MEDS: GABAPENTIN 300 MG CAP PO SCH ×2 (08:34→22:10)
[2016-11-05] MEDS: GUAIFENESIN 200 MG TAB PO SCH ×2 (08:34→22:10)
[2016-11-05] MEDS: POTASSIUM CHLORIDE 20 MEQ TABCR PO SCH ×2 (08:35→22:07)
[2016-11-05] MEDS: MAGNESIUM OXIDE 400 MG TAB PO SCH ×2 (08:36→22:10)
[2016-11-05] MEDS: VANCOMYCIN INJ 1,350 MG in SODIUM CHLORIDE 0.9% 250ML 250 ML IV SCH (09:59)
--- NOTE | 2016-11-05 11:40 | Progress Note ---
Subjective Date of Service: Nov 05, 2016. Subjective Pt evaluation today including: conversation w/ patient, physical exam, chart review, lab review, review of studies, conversation w/ wardrobe image consultant, review of inpatient medication list Sitting up in bed, feeling that it'll be better, still on oxygen , 93% in 3 L,, suppose at home is 2 L No other complaining, eating voiding okay Problem List Medical Problems: (1) Anemia Status: Acute (2) COPD exacerbation Status: Acute (3) COPD exacerbation Status: Acute (4) Hypomagnesemia Status: Acute (5) Hypoxia Status: Acute (6) Lactic acidosis Status: Acute (7) Sepsis Status: Acute Review of Systems Constitutional: + fatigue, + weakness, No chills, No fever, No problem reported , No sweats, No weight loss Eyes: No diplopia, No discharge, No eye pain, No redness, No worsening of vision ENT: No dental problems, No hearing loss, No nasal symptoms, No sore throat, No tinnitus, No trouble swallowing, No unusual epistaxis Respiratory: + cough, + shortness of breath, No dyspnea at rest, No dyspnea on exertion, No hemoptysis, No sputum, No wheezing Cardiac: No PND, No chest pain, No claudication, No edema, No orthopnea, No palpitations Abdomen: No constipation, No diarrhea, No nausea, No pain, No vomiting Musculoskeletal: No calf pain, No joint pain, No muscle pain, No swelling Female : No abnormal vaginal bleeding, No dysuria, No hematuria, No incontinence, No urinary frequency, No vaginal discharge Neurologic: No balance problems, No memory loss, No numbness/tingling, No paralysis, No vertigo, No weakness Psychiatric: No anhedonism, No anxiety, No depression symptoms, No insomnia, No substance abuse Heme: No abnormal bleeding/bruising, No clotting problems, No night sweats, No swollen lymph nodes Endo: No excessive thirst, No excessive urination, No fatigue Skin: No bleeding, No color change, No itch, No new/changing skin lesions, No rash Objective Vital Signs Date Time Temp Pulse Resp B/P Pulse Ox O2 Delivery O2 Flow Rate FiO2 11/05/16 08:09 93 Nasal Cannula 3.0 11/05/16 07:55 36.4 78 18 125/77 94 Nasal Cannula 2.0 11/05/16 07:25 87 16 95 Nasal Cannula 2.0 11/05/16 04:26 36.6 80 18 117/67 93 Nasal Cannula 2.0 11/05/16 04:00 93 Nasal Cannula 3.0 11/05/16 03:45 87 16 93 Nasal Cannula 2.0 11/05/16 00:26 84 16 94 Nasal Cannula 2.0 11/05/16 00:00 93 Nasal Cannula 3.0 11/04/16 23:49 37.1 92 18 122/68 91 2.0 11/04/16 20:33 88 16 93 Nasal Cannula 2.0 11/04/16 20:00 95 Nasal Cannula 3.0 11/04/16 19:59 95 Nasal Cannula 3.0 11/04/16 19:43 36.2 86 18 115/70 95 Nasal Cannula 2.0 11/04/16 16:00 96 Nasal Cannula 3.0 11/04/16 16:00 36.9 86 20 131/82 98 Nasal Cannula 3.0 11/04/16 12:00 36.8 81 18 128/78 96 Nasal Cannula 3.0 11/04/16 12:00 95 Nasal Cannula 3.0 Physical Exam General Appearance: WD/WN, no apparent distress, + obese, + pertinent finding ( tired, mild pale) Eyes: normal inspection, PERRL, EOMI, sclerae normal ENT: normal ENT inspection, hearing grossly normal, pharynx normal, + muffled/ hoarse voice Neck: supple, no adenopathy, thyroid normal, no JVD, no carotid bruits, trachea midline Respiratory/Chest: chest non-tender, no respiratory distress, no accessory muscle use, + decreased breath sounds Cardiovascular: regular rate, rhythm, no edema, no gallop, no JVD, no murmur Abdomen: normal bowel sounds, non tender, soft, no organomegaly, no pulsatile mass Extremities: normal range of motion, non-tender, normal inspection, no pedal edema, no calf tenderness, normal capillary refill, pelvis stable Neurologic/Psychiatric: generator switchboard operator II-XII nml as tested, no motor/sensory deficits, alert, normal mood/affect, oriented x 3 Skin: normal color, warm/dry, no rash Lymphatic: no adenopathy Laboratory Results Last 24 Hours Test 11/04/16 11:42 11/04/16 15:35 11/04/16 16:34 11/04/16 20:02 Bedside Glucose 277 mg/dl 172 mg/dl 208 mg/dl White Blood Count 11.02 K/uL Red Blood Count 3.59 M/uL Hemoglobin 8.5 g/dL Hematocrit 27.6 % Mean Corpuscular Volume 76.9 fL Mean Corpuscular Hemoglobin 23.7 pg Mean Corpuscular Hemoglobin Concent 30.8 g/dl Platelet Count 392 K/uL Mean Platelet Volume 8.6 fL Neutrophils (%) (Auto) 83.6 % Lymphocytes (%) (Auto) 8.2 % Monocytes (%) (Auto) 7.8 % Eosinophils (%) (Auto) 0.0 % Basophils (%) (Auto) 0.0 % Neutrophils # (Auto) 9.22 K/uL Lymphocytes # (Auto) 0.90 K/uL Monocytes # (Auto) 0.86 K/uL Eosinophils # (Auto) 0.00 K/uL Basophils # (Auto) 0.00 K/uL RDW Standard Deviation 49.8 fL RDW Coefficient of Variation 17.6 % Immature Granulocyte % (Auto) 0.4 % Immature Granulocyte # (Auto) 0.04 K/uL Hypochromasia PRESENT Microcytosis PRESENT Schistocytes OCCASIONAL Prothrombin Time 19.1 SECONDS Prothromb Time International Ratio 1.7 Sodium Level 142 mmol/L Potassium Level 4.0 mmol/L Chloride Level 103 mmol/L Carbon Dioxide Level 31 mmol/L Anion Gap 8.0 mmol/L Blood Urea Nitrogen 17 mg/dl Creatinine 1.10 mg/dl Est Creatinine Clear Calc Drug Dose 49.6 ml/min Estimated GFR () 58.1 Estimated GFR (Non- 50.1 BUN/Creatinine Ratio 15.5 Random Glucose 86 mg/dl Calcium Level 8.4 mg/dl Magnesium Level 2.2 mg/dl Test 11/05/16 06:08 11/05/16 07:32 White Blood Count 13.13 K/uL Red Blood Count 3.77 M/uL Hemoglobin 8.8 g/dL Hematocrit 28.8 % Mean Corpuscular Volume 76.4 fL Mean Corpuscular Hemoglobin 23.3 pg Mean Corpuscular Hemoglobin Concent 30.6 g/dl Platelet Count 400 K/uL Mean Platelet Volume 8.7 fL Neutrophils (%) (Auto) 84.0 % Lymphocytes (%) (Auto) 9.9 % Monocytes (%) (Auto) 5.4 % Eosinophils (%) (Auto) 0.2 % Basophils (%) (Auto) 0.1 % Neutrophils # (Auto) 11.04 K/uL Lymphocytes # (Auto) 1.30 K/uL Monocytes # (Auto) 0.71 K/uL Eosinophils # (Auto) 0.02 K/uL Basophils # (Auto) 0.01 K/uL RDW Standard Deviation 49.8 fL RDW Coefficient of Variation 17.7 % Immature Granulocyte % (Auto) 0.4 % Immature Granulocyte # (Auto) 0.05 K/uL Microcytosis PRESENT Tear Drop Cells 1+ Ovalocytes 1+ Prothrombin Time 20.5 SECONDS Prothromb Time International Ratio 1.9 Activated Partial Thromboplast Time 30.6 SECONDS Partial Thromboplastin Ratio 1.2 Sodium Level 141 mmol/L Potassium Level 4.0 mmol/L Chloride Level 104 mmol/L Carbon Dioxide Level 29 mmol/L Anion Gap 8.0 mmol/L Blood Urea Nitrogen 20 mg/dl Creatinine 0.89 mg/dl Est Creatinine Clear Calc Drug Dose 59.5 ml/min Estimated GFR () 75.0 Estimated GFR (Non- 64.7 BUN/Creatinine Ratio 22.6 Random Glucose 207 mg/dl Calcium Level 8.8 mg/dl Magnesium Level 2.5 mg/dl Bedside Glucose 234 mg/dl Assessment and Plan 71-year-old white female admitted on 11/03/2016 because of COPD exacerbation COPD exacerbation with hypoxia, possible pneumonia: very slowly improving Chronic home O2 dependent resp failure History of Pulmonary emboli Possible pneumonia in the chest x-ray in the emergency room which was on portable view, associated with elevated lactase level Chest x-ray two-view results reviewed, Continue antibiotic, oxygen, Solu-Medrol nebulizer treatment Switch Vanco and Zosyn to Levaquin, because chest x-ray no severe pneumonia, and blood culture has been negative Patient has severe lung disease combined COPD, PE, pneumonia, we'll request a pulmonology consult Has been on Coumadin at home however INR mildly subtherapeutic at 1.9 today after increasing the dose to 7 mg by mouth daily Continue current dose of 7 mg daily and follow serial INR testing. CHF--continue furosemide 40 mg by mouth every morning, stable potassium chloride 20 mEq by mouth twice a day. GERD--stop pantoprazole 40 mg by mouth every morning for now a vented is contributing to low magnesium, and increase ranitidine from 150 mg by mouth every afternoon to twice a day. Diabetes mellitus-- hold metformin, and place on Accu-Cheks before meals and at bedtime with NovoLog coverage. Check HbA1c Hypothyroidism--continue levothyroxine sodium 25 g by mouth every morning. Anxiety/depression/insomnia--continue clonazepam 0.5 mg by mouth at noon, gabapentin 3 mg by mouth twice a day, mirtazapine 45 mg by mouth at bedtime, and Seroquel 40 mg by mouth at bedtime. Arthritis--continue meloxicam 7.5 mg by mouth twice a day. Allergic rhinitis--continue Flonase allergy relief 1 spray each nostril daily. GI and DVT prophylaxis Continued [facility] stay due to: multiple IV medications needed Discharge planning: home
[2016-11-05] MEDS ORDERED: LANTUS PER UNIT CHARGE SQ ONE (12:30)
[2016-11-05] MEDS: CLONAZEPAM 0.5 MG TAB PO SCH (13:06)
[2016-11-05] MEDS: LEVOFLOXACIN 750 MG TAB PO SCH (13:06)
[2016-11-05] MEDS ORDERED: NURSING VERBAL MED ORDER ONE (15:15)
[2016-11-05] MEDS ORDERED: COUGH DROP (SUGAR FREE) LOZ 24 LOZ/1 BOX ONE (15:17)
[2016-11-05] MEDS ORDERED: COUGH DROP (SUGAR FREE) LOZ 24 LOZ/1 BOX PO PRN (15:30)
[2016-11-05] MEDS: WARFARIN PO SCH ×2 (16:27)
--- NOTE | 2016-11-05 16:27 | Pulmonary Consultation ---
History General Date of Service: Nov 05, 2016. Stated Complaint: Copd Exacerbation, Hypoxia HPI The patient is a 71 year old female who presents to [facility] with complaints of Copd Exacerbation, Hypoxia. The patient's primary care provider is Owen Lucas M.D.. Very pleasant 71-year-old female with up to 10 admissions between May 09 and her current admission starting November 04, 2016. She's been admitted to [facility] 8 of those times in the [facility] for the last 2. She's been admitted for diastolic heart failure, pulmonary embolisms and COPD exacerbations. On the she was admitted for acute on chronic respiratory insufficiency and has been treated for both diastolic heart failure as well as COPD exacerbation. She does not progressive dyspnea on exertion over the last 10 months but at this time denies: Fever, chills, hemoptysis, chest pain, pleurisy or progressive weight loss. Current workup EKG: Sinus tachycardia rate 103 no specific findings EKG: Sinus rhythm with PACs noted WBC: 13K (elevated absolute neutrophil count) H/H: 06/12 INR: 1.9 Microbiology: No growth to date blood cultures time 2 MRSA screen negative Chest x-ray 10/26/2016: Within normal limits Treatment #1 Solu-Medrol 40 mg IV every 8 hours #2 levofloxacin 750 mg IV daily #3 singular 10 mg orally daily #4 warfarin--INR: #5 Flonase one puff each nostril daily #6 guaifenesin 600 mg twice a day #7 Synthroid 25 g daily #8 Atrovent/Xopenex nebulizer every 6 hours--every 2 hours when necessary Historian: patient, EMS Review of Systems Constitutional: reports: weakness Eyes: reports: no symptoms ENT: reports: no symptoms Cardiovascular: reports: no symptoms Respiratory: reports: ALVAREZ, as stated in HPI Gastrointestinal: reports: no symptoms Genitourinary - Female: reports: no symptoms Musculoskeletal: reports: no symptoms Integumentary: reports: no symptoms Neurologic: reports: no symptoms Psychiatric: reports: no symptoms Endocrine: no symptoms Hematologic / Lymphatic: no symptoms Allergic / Immunologic: no symptoms Past Medical History Past Medical History: #1 GERD #2 CHF #3 COPD--oxygen dependent #4 meningitis #5 ovarian cancer #6 pulmonary embolism June 2016--- treated with Coumadin #7 hypothyroidism #8 [id number] diabetes mellitus Family History No pertient family history secondary to age Mother: Ovarian cancer Social History Tobacco: 30+ pack year quit 2011 EtOH: Denies history of abuse Status: Maintains independence-close to her daughter Hx Tobacco Use In Past Year?: No Smoking Status: Former Smoker Housing status: lives with family Occupational Status: retired History of MDRO History of MDRO: No Allergies Coded Allergies: Rabies Vaccine (Unverified Allergy, Severe, HIVES, 11/04/16) Ragweed (Unverified Allergy, Unknown, UNKNOWN, 11/04/16) Tomato (Unverified Allergy, Unknown, HIVES, 11/04/16) Current Medications Reported Home Medications Medications Dose Route/Sig Max Daily Dose Days Date Category Dose Instructions Glucophage (Metformin Hcl) 1,000 Mg Tab 1 Tab PO BID 30 09/25/16 Rx Furosemide 20 Mg Tab 40 Mg PO QAM 09/25/16 Rx Albuterol Sulfate (Albuterol Sulf) 2.5 Mg/3 Ml Nebu 2.5 Mg INH Q4H PRN 09/25/16 Rx Duoneb (Ipratropium-Albuterol) 3 Ml Nebu 1 Treatment INH QID 09/25/16 Rx Seroquel (Quetiapine Fumarate) 400 Mg Tab 400 Mg PO HS 09/21/16 Reported Synthroid (Levothyroxine Sodium) 25 Mcg Tab 25 Mcg PO QAM 09/21/16 Reported Spiriva [place]er (Tiotropium [place]) 30 Puff/540 Mcg Aerp 1 Cap INH DAILY 09/21/16 Reported Singulair (Montelukast Sodium) 10 Mg Tab 10 Mg PO HS 09/21/16 Reported Remeron (Mirtazapine) 45 Mg Tab 45 Mg PO HS 09/21/16 Reported Zantac (Ranitidine HCl) 150 Mg Tab 150 Mg PO QPM 09/21/16 Reported Protonix (Pantoprazole Sodium) 40 Mg Tab 40 Mg PO QAM 09/21/16 Reported Oyster Shell Calcium + D (Calcium Carbonate-Cholecalcife) 1 Tab Tab 1 Tab PO QAM 09/21/16 Reported Neurontin (Gabapentin) 300 Mg Cap 300 Mg PO BID 09/21/16 Reported Meloxicam 7.5 Mg Tab 7.5 Mg PO BID 09/21/16 Reported Klor-Con M20 (Potassium Chloride) 20 Meq Tabcr 20 Meq PO BID 09/21/16 Reported Flonase Allergy Relief (Fluticasone Propionate (Nasal)) 50 Mcg/Act Spr 1 Coldiron NA DAILY 09/21/16 Reported Dulera 200/5 Mcg (Mometasone Furoate-Formoterol) 1 Aer Aer 1 Puff INH BID 09/21/16 Reported Multi Vitamin with Iron (Multiple Vitamins W/ Iron) 1 Tab Tab 1 Tab PO QAM 09/21/16 Reported Coumadin (Warfarin Sodium) 4 Mg Tab 4 Mg PO DAILY@1800 09/21/16 Reported Coumadin (Warfarin Sod) 2.5 Mg Tab 2.5 Mg PO DAILY@1800 09/21/16 Reported TAKE WITH 4MG TOTAL 6.5 MG DAILY Clonazepam 0.5 Mg Tab 0.5 Mg PO NOON 09/21/16 Reported Physical Physical Exam Vital Signs: Date Time Temp Pulse Resp B/P Pulse Ox O2 Delivery O2 Flow Rate FiO2 11/05/16 15:08 36.5 107 20 126/68 92 Nasal Cannula 2.0 11/05/16 14:28 78 16 95 Nasal Cannula 2.0 11/05/16 12:00 93 Nasal Cannula 3.0 11/05/16 11:58 78 20 122/80 95 Nasal Cannula 2.0 11/05/16 08:09 93 Nasal Cannula 3.0 11/05/16 07:55 36.4 78 18 125/77 94 Nasal Cannula 2.0 11/05/16 07:25 87 16 95 Nasal Cannula 2.0 11/05/16 04:26 36.6 80 18 117/67 93 Nasal Cannula 2.0 11/05/16 04:00 93 Nasal Cannula 3.0 11/05/16 03:45 87 16 93 Nasal Cannula 2.0 11/05/16 00:26 84 16 94 Nasal Cannula 2.0 11/05/16 00:00 93 Nasal Cannula 3.0 11/04/16 23:49 37.1 92 18 122/68 91 2.0 11/04/16 20:33 88 16 93 Nasal Cannula 2.0 11/04/16 20:00 95 Nasal Cannula 3.0 11/04/16 19:59 95 Nasal Cannula 3.0 11/04/16 19:43 36.2 86 18 115/70 95 Nasal Cannula 2.0 General Appearance: NO APPARENT DISTRESS Head: NORMOCEPHALIC, ATRAUMATIC Eyes: PERRLA, NO DISCHARGE, EOMI, SCLERAE NORMAL ENT: NORMAL EAR EXAM, NORMAL NASAL EXAM, NORMAL MOUTH EXAM, NORMAL THROAT EXAM , NORMAL DENTAL EXAM, NORMAL SINUS EXAM Neck: NORMAL RANGE OF MOTION, NO TENDERNESS, TRACHEA MIDLINE, NO STRIDOR Respiratory: other (decreased breath sounds globally) Cardiovasular: REGULAR RATE/RHYTHM, NORMAL S1S2, NO M/G/R, NO MURMUR, NO GALLOP , NO RUB Abdomen: NON TENDER, NORMAL BOWEL SOUNDS, NO REBOUND, NO MASSES, NO GUARDING, NO ORGANOMEGALY, NORMAL RECTAL EXAM, NO HEMORRHOIDS Genitourinary - Female: EXTERNAL GENITALIA NORMAL Back: NORMAL INSPECTION, NO MIDLINE TENDERNESS, NO CVA TENDERNESS, NO PARAVERTEBRAL TTP Upper Extremities: NO EDEMA, NO DEFORMITY, NORMAL ROM Lower Extremities: NO EDEMA Pulses: carotid (R) (2+), carotid (L) (2+), posterior tibial (R), posterior tibial (L) (2+) Neuro: ALERT, ORIENTED x 3, NORMAL MOTOR EXAM, NORMAL SENSATION Reflexes: biceps (R) (2+), bicpes (L) (2+), achilles (R) (2+), achilles (L) (2+ ) Babinski Testing: right (downgoing), left (downgoing) Psychiatric: NORMAL AFFECT Diagnostics Labs Results Past 24 Hours Test 11/04/16 16:34 11/04/16 20:02 11/05/16 06:08 11/05/16 07:32 Range/Units Bedside Glucose 172 208 234 70-90 mg/dl White Blood Count 13.13 4.8-10.8 K/uL Red Blood Count 3.77 4.2-5.4 M/uL Hemoglobin 8.8 12.0-16.0 g/dL Hematocrit 28.8 37-47 % Mean Corpuscular Volume 76.4 80-100 fL Mean Corpuscular Hemoglobin 23.3 25-34 pg Mean Corpuscular Hemoglobin Concent 30.6 32-36 g/dl Platelet Count 400 130-400 K/uL Mean Platelet Volume 8.7 7.4-10.4 fL Neutrophils (%) (Auto) 84.0 % Lymphocytes (%) (Auto) 9.9 % Monocytes (%) (Auto) 5.4 % Eosinophils (%) (Auto) 0.2 % Basophils (%) (Auto) 0.1 % Neutrophils # (Auto) 11.04 1.4-6.5 K/uL Lymphocytes # (Auto) 1.30 1.2-3.4 K/uL Monocytes # (Auto) 0.71 0.11-0.59 K/uL Eosinophils # (Auto) 0.02 0-0.5 K/uL Basophils # (Auto) 0.01 0-0.2 K/uL RDW Standard Deviation 49.8 36.4-46.3 fL RDW Coefficient of Variation 17.7 11.5-14.5 % Immature Granulocyte % (Auto) 0.4 % Immature Granulocyte # (Auto) 0.05 0.00-0.02 K/uL Microcytosis PRESENT Tear Drop Cells 1+ Ovalocytes 1+ Prothrombin Time 20.5 9.0-12.0 SECONDS Prothromb Time International Ratio 1.9 0.9-1.1 Activated Partial Thromboplast Time 30.6 21.0-31.0 SECONDS Partial Thromboplastin Ratio 1.2 Sodium Level 141 136-145 mmol/L Potassium Level 4.0 3.5-5.1 mmol/L Chloride Level 104 98-107 mmol/L Carbon Dioxide Level 29 21-32 mmol/L Anion Gap 8.0 3-11 mmol/L Blood Urea Nitrogen 20 7-18 mg/dl Creatinine 0.89 0.60-1.20 mg/dl Est Creatinine Clear Calc Drug Dose 59.5 ml/min Estimated GFR () 75.0 Estimated GFR (Non- 64.7 BUN/Creatinine Ratio 22.6 10-20 Random Glucose 207 70-99 mg/dl Calcium Level 8.8 8.5-10.1 mg/dl Magnesium Level 2.5 1.8-2.4 mg/dl Test 11/05/16 11:36 Range/Units Bedside Glucose 145 70-90 mg/dl Diagnostic Radiology Chest x-ray 10/26/2016: Within normal limits EKG EKG: Sinus tachycardia rate 103 no specific findings EKG: Sinus rhythm with PACs noted Impression Assessment and Plan 71-year-old female admitted for acute on chronic respiratory insufficiency: #1 Respiratory Insufficiency: This time patient is saturating well on 2-3 L nasal cannula. She does have a past medical history significant for diastolic heart failure, pulmonary embolism and unknown severity COPD. During our interview she was only to able to achieve a peak flow of 170. COPD: The exact extent of patient's COPD is unknown, patient has never undergone primary function evaluation. At this time I suggest we treat her as if she has very severe COPD continuing current Solu-Medrol dosing, Singulair, Flonase, Symbicort 160/4.5 (has a hospital does not have Dulera) and initiate Spiriva. She has had multiple exacerbations we'll also initiate Roflumilast at this time but will have to be followed up by outpatient comfort station supervisor as this can cause weight loss and other GI effects. We'll hold off on initiating azithromycin therapy for evaluating for possible BiPAP as patient is cautioned phobic and refuses BiPAP mask. #2 Cancer Screening: He would be appropriate to place this patient in the cancer screening program but she refuses thoracic CTs as once again she is claustrophobic. Performing yearly chest x-ray examinations has never shown to be beneficial she would not initiate this as secondary monitoring.
[2016-11-05] MEDS: METHYLPREDNISOLONE IV 40 MG in SYRINGE 0 ML IV SCH (18:16)
[2016-11-05] MEDS: MIRTAZAPINE TAB 15 MG TAB PO SCH (22:08)
[2016-11-05] MEDS: QUETIAPINE FUMARATE 200 MG TAB PO SCH (22:11)
[2016-11-05] MEDS: MONTELUKAST SOD 10 MG TAB PO SCH (22:12)
[2016-11-05] MEDS: DOCUSATE SODIUM 100 MG CAP PO SCH (22:13)
--- NOTE | 2016-11-05 22:15 | DIAGNOSTIC IMAGING REPORT ---
BILATERAL LOWER EXTREMITY VENOUS DOPPLER HISTORY: Hypoxia. rule out DVT COMPARISON STUDY: None. FINDINGS: There is normal compressibility, flow, and augmentation within the bilateral lower extremity deep venous systems. Small bilateral popliteal cysts. IMPRESSION: No DVT within the right or left lower extremity. Electronically signed by: Charly Cabrera M.D. 11/05/2016 10:14 PM Dictated Date/Time: 11/05/2016 10:13 PM
[2016-11-06] VITALS (11 sets, daily range): BP systolic 110–138; BP diastolic 66–86; PULSE 72–90; TEMP 36.4–37; O2SAT 86–98
[2016-11-06] MEDS: METHYLPREDNISOLONE IV 40 MG in SYRINGE 0 ML IV SCH ×3 (02:37→18:22)
[2016-11-06] MEDS: IPRATROPIUM BROMIDE NEB SOLN 0.02% 2.5 ML VIAL INH SCH ×4 (02:39→19:24)
[2016-11-06] MEDS: LEVALBUTEROL 1.25MG/0.5ML NEB INH SCH ×4 (02:39→19:24)
[2016-11-06] MEDS ORDERED: VANCOMYCIN TROUGH SCH (03:30)
[2016-11-06] MEDS: LEVOTHYROXINE 25 MCG TAB PO SCH (06:22)
[2016-11-06 07:41] LABS: BASO % 0.1 %; BASO ABS # 0.01 K/uL (0-0.2); COMPLETE YES; EOS % 0.1 %; HEMATOCRIT 29.7 % (37-47); IG% 0.6 %; LYMPH % 12.2 %; LYMPH ABS # 1.13 K/uL (1.2-3.4); MEAN CELL VOLUME 77.1 fL (80-100); MEAN CORPUSCULAR HEMOGLOBIN 23.4 pg (25-34); MEAN CORPUSCULAR HGB CONC 30.3 g/dl (32-36); MEAN PLATELET VOLUME 8.5 fL (7.4-10.4); PLATELET COUNT 374 K/uL (130-400); RED BLOOD COUNT 3.85 M/uL (4.2-5.4); WHITE BLOOD COUNT 9.25 K/uL (4.8-10.8)
[2016-11-06 07:49] LABS: PARTIAL THROMBOPLASTIN RATIO 1.2; PROTHROMBIN TIME (PATIENT) 22.1 SECONDS (9.0-12.0)
[2016-11-06 08:15] LABS: BUN/CREATININE RATIO 19.6 (10-20); CALCIUM 8.9 mg/dl (8.5-10.1); CREATININE 0.9 mg/dl (0.60-1.20); MAGNESIUM 2.4 mg/dl (1.8-2.4); POTASSIUM 4.7 mmol/L (3.5-5.1)
[2016-11-06] MEDS: GABAPENTIN 300 MG CAP PO SCH ×2 (08:27→22:19)
[2016-11-06] MEDS: DOCUSATE SODIUM 100 MG CAP PO SCH ×2 (08:27→21:00)
[2016-11-06] MEDS: FLUTICASONE PROPIONATE NA SPR 16 GM BTL SCH (08:27)
[2016-11-06] MEDS: CEROVITE ADV FORMULA TAB PO SCH (08:27)
[2016-11-06] MEDS: RANITIDINE HCL 150 MG TAB PO SCH ×2 (08:27→22:20)
[2016-11-06] MEDS: FUROSEMIDE 20 MG TAB PO SCH (08:28)
[2016-11-06] MEDS: GUAIFENESIN 200 MG TAB PO SCH ×2 (08:28→22:20)
[2016-11-06] MEDS: MAGNESIUM OXIDE 400 MG TAB PO SCH ×2 (08:28→22:19)
[2016-11-06 08:29] LABS: ESTIMATED AVERAGE GLUCOSE 192 mg/dl; HA1C FLAG Normal (Normal)
[2016-11-06] MEDS: MELOXICAM 7.5 MG TAB PO SCH ×2 (08:29→22:19)
[2016-11-06] MEDS: CALCIUM 600MG + VIT D 400 IU TAB PO SCH (08:29)
[2016-11-06] MEDS ORDERED: AZIT250T PO (08:32)
[2016-11-06] MEDS: INSULIN ASPART 100 UNITS/ML 3 ML PEN SC SCH ×4 (08:42→22:22)
--- NOTE | 2016-11-06 08:44 | Pulmonology Progress Note ---
Pulmonary Progress Note Date of Service Nov 06, 2016. Attending Clem Meyers Subjective Patient is dramatic improvement in her baseline dyspnea and dyspnea at rest. Objective Patient is sleeping comfortably showing no signs of excessive work of breathing and easily arousable. On a conversation she did not use accessory muscles, or show other signs of increased work of breathing. Vital signs: Reviewed stable on 2 L Respiratory: Decreased breath sounds minimal wheezing but has improved over the previous 24 hours Cardiac: S1-S2 regular rate and rhythm Abdomen: Positive bowel sounds soft nontender Extremities: No clubbing cyanosis or edema EK11/06/2016 at 0739 the morning: Within normal limits Assessment & Plan 71-year-old female with unknown severity of COPD and multiple admissions over the last 6 months to multiple hospitals for COPD, pulmonary emboli, diastolic heart failure: #1 COPD: This time I suggest we keep her Solu-Medrol its current dosing, continue Singulair, Flonase, Symbicort 160/4.5 and Spiriva. Initiation: We'll initiate Roflumilast and azithromycin 3 times per week. New GOLD recommendation suggest we treat exacerbations aggressively and not based off FEV1 standards. This is why increasing or initiating Roflumilast azithromycin and Spiriva would be most appropriate help possibly decrease her readmission rate. #2 lung cancer screening: As discussed before this patient is unwilling to perform thoracic CAT scan imaging. Due to this lung cancer screening cannot be performed. Data Medications: Current Inpatient Medications Medications (Trade) Dose Ordered Sig/Lulú Route Start Time Stop Time Status Last Admin Dose Admin Acetaminophen (Tylenol Tab) 650 mg Q4H PRN PO 11/04/16 00:45 12/04/16 00:44 Zolpidem Tartrate (Ambien Tab) 5 mg HSZ PRN PO 11/04/16 00:45 12/04/16 00:44 Nitroglycerin (Nitrostat Tab) 0.4 mg UD PRN SL 11/04/16 00:45 12/04/16 00:44 Clonazepam (Klonopin Tab) 0.5 mg DAILY@1200 PO 11/04/16 12:00 12/04/16 11:59 11/05/16 13:06 0.5 MG Fluticasone Propionate (Flonase Nasal [place]) 1 sprays DAILY NA 11/04/16 09:00 3/23/17 08:59 11/05/16 08:33 1 SPRAYS Furosemide (Lasix Tab) 40 mg QAM PO 11/04/16 09:00 12/04/16 08:59 11/05/16 08:34 40 MG Gabapentin (Neurontin Cap) 300 mg BID PO 11/04/16 09:00 12/04/16 08:59 11/05/16 22:10 300 MG Levothyroxine Sodium (Synthroid Tab) 25 mcg DAILYBB PO 11/04/16 07:00 12/04/16 06:59 11/06/16 06:22 25 MCG Meloxicam (Mobic Tab) 7.5 mg BID PO 11/04/16 09:00 12/04/16 08:59 11/05/16 22:11 7.5 MG Montelukast Sodium (Singulair Tab) 10 mg HS PO 11/04/16 21:00 12/04/16 20:59 11/05/16 22:12 10 MG Potassium Chloride (Klor-Con Tab) 20 meq BID PO 11/04/16 09:00 12/04/16 08:59 11/05/16 22:07 20 MEQ Quetiapine Fumarate (seroQUEL TAB) 400 mg HS PO 11/04/16 21:00 12/04/16 20:59 11/05/16 22:11 400 MG Calcium/Vitamin D (Caltrate Plus Tab) 1 tab QAM PO 11/04/16 09:00 12/04/16 08:59 11/05/16 08:33 1 TAB Mirtazapine (Remeron Tab) 45 mg HS PO 11/04/16 21:00 12/04/16 20:59 11/05/16 22:08 45 MG Multivitamins/ Minerals (Multivitamin W/ Minerals Tab) 1 tab QAM PO 11/04/16 09:00 12/04/16 08:59 11/05/16 08:33 1 TAB Ondansetron HCl (Zofran Inj) 4 mg Q6H PRN IV 11/04/16 00:45 12/04/16 00:44 Guaifenesin (Organidin Nr Tab) 600 mg BID PO 11/04/16 09:00 12/04/16 08:59 11/05/16 22:10 600 MG Insulin Aspart (novoLOG ASPART) SLIDING SCALE If C... ACHS SC 11/04/16 07:00 12/04/16 06:59 11/05/16 17:25 8 UNITS Glucose (Glucose 40% Gel) UD PRN PO 11/04/16 01:00 12/04/16 00:59 Glucose (Glucose Chew Tab) 1 tabs UD PRN PO 11/04/16 01:00 12/04/16 00:59 Dextrose (Dextrose 50% 50ML Syringe) 50 ml UD PRN IV 11/04/16 01:00 12/04/16 00:59 Glucagon (Glucagon Inj) 1 mg UD PRN SQ 11/04/16 01:00 12/04/16 00:59 Ranitidine HCl (zANTac TAB) 150 mg BID PO 11/04/16 09:00 12/04/16 08:59 11/05/16 22:09 150 MG Ipratropium [place] (Atrovent 0.02% 0.5MG/2.5ML Neb) 0.5 mg Q6R INH 11/04/16 03:00 12/04/16 02:59 11/06/16 07:04 0.5 MG Levalbuterol (Xopenex 1.25MG/ 0.5ML Neb) 1.25 mg Q6R INH 11/04/16 03:00 12/04/16 02:59 11/06/16 07:04 1.25 MG Ipratropium [place] (Atrovent 0.02% 0.5MG/2.5ML Neb) 0.5 mg Q2H PRN INH 11/04/16 01:45 12/04/16 01:44 11/05/16 00:26 0.5 MG Levalbuterol (Xopenex 1.25MG/ 0.5ML Neb) 1.25 mg Q2H PRN INH 11/04/16 01:45 12/04/16 01:44 11/05/16 00:25 1.25 MG Warfarin Sodium/ Warfarin Sodium (Coumadin Tab/ Coumadin Tab) 7 mg DAILY@16 PO 11/04/16 16:00 12/04/16 15:59 11/05/16 16:27 7 MG Magnesium Oxide (Mag-Ox Tab) 400 mg BID PO 11/04/16 21:00 12/04/16 20:59 11/05/16 22:10 400 MG Docusate Sodium 100 mg 100 mg BID PO 11/05/16 21:00 12/05/16 20:59 11/05/16 22:13 100 MG Methylprednisolone Sodium Succinate/ Syringe (Solu-Medrol IV/ Syringe) 0.64 ml @ 1.5 mls/min Q8H IV 11/05/16 18:00 12/05/16 17:59 11/06/16 02:37 1.5 MLS/MIN Levofloxacin (Levaquin Tab) 750 mg DAILY@11 PO 11/05/16 12:00 11/12/16 11:59 11/05/16 13:06 750 MG Menthol (Nice Kena) 1 kena PRN PRN PO 11/05/16 15:30 12/05/16 15:29 Roflumilast (Daliresp Tab) 500 mcg DAILY PO 11/06/16 09:00 12/06/16 08:59 Roflumilast (Daliresp Tab) 500 mcg DAILY PO 11/06/16 09:00 12/06/16 08:59 Azithromycin (Zithromax Tab) 250 mg QAM PO 11/06/16 09:00 11/13/16 08:59 I & O: 24-Hour Column 11/06/16 08:00 Intake Total 1425 ml Balance 1425 ml Vital Signs: Date Time Temp Pulse Resp B/P Pulse Ox O2 Delivery O2 Flow Rate FiO2 11/06/16 08:04 36.5 76 18 135/74 94 Nasal Cannula 2.0 11/06/16 07:05 88 16 97 Nasal Cannula 2.0 11/06/16 04:00 Nasal Cannula 2.0 11/06/16 04:00 36.4 89 20 110/66 96 2.0 11/06/16 02:39 78 16 98 Nasal Cannula 2.0 11/06/16 00:00 Nasal Cannula 2.0 11/05/16 23:05 36.3 87 18 132/66 94 Nasal Cannula 2.0 11/05/16 20:00 Nasal Cannula 2.0 11/05/16 19:24 36.9 81 20 120/75 96 Nasal Cannula 2.0 11/05/16 19:11 94 16 96 Nasal Cannula 2.0 11/05/16 16:00 Nasal Cannula 2.0 11/05/16 15:08 36.5 107 20 126/68 92 Nasal Cannula 2.0 11/05/16 14:28 78 16 95 Nasal Cannula 2.0 11/05/16 12:00 93 Nasal Cannula 3.0 11/05/16 11:58 78 20 122/80 95 Nasal Cannula 2.0 Laboratory Results: Last 24 Hours Test 11/05/16 11:36 11/05/16 16:10 11/05/16 20:01 11/06/16 07:29 Bedside Glucose 145 mg/dl 171 mg/dl 135 mg/dl White Blood Count 9.25 K/uL Red Blood Count 3.85 M/uL Hemoglobin 9.0 g/dL Hematocrit 29.7 % Mean Corpuscular Volume 77.1 fL Mean Corpuscular Hemoglobin 23.4 pg Mean Corpuscular Hemoglobin Concent 30.3 g/dl Platelet Count 374 K/uL Mean Platelet Volume 8.5 fL Neutrophils (%) (Auto) 84.0 % Lymphocytes (%) (Auto) 12.2 % Monocytes (%) (Auto) 3.0 % Eosinophils (%) (Auto) 0.1 % Basophils (%) (Auto) 0.1 % Neutrophils # (Auto) 7.76 K/uL Lymphocytes # (Auto) 1.13 K/uL Monocytes # (Auto) 0.28 K/uL Eosinophils # (Auto) 0.01 K/uL Basophils # (Auto) 0.01 K/uL RDW Standard Deviation 50.5 fL RDW Coefficient of Variation 17.7 % Immature Granulocyte % (Auto) 0.6 % Immature Granulocyte # (Auto) 0.06 K/uL Prothrombin Time 22.1 SECONDS Prothromb Time International Ratio 2.0 Activated Partial Thromboplast Time 30.6 SECONDS Partial Thromboplastin Ratio 1.2 Sodium Level 142 mmol/L Potassium Level 4.7 mmol/L Chloride Level 107 mmol/L Carbon Dioxide Level 29 mmol/L Anion Gap 6.0 mmol/L Blood Urea Nitrogen 18 mg/dl Creatinine 0.90 mg/dl Est Creatinine Clear Calc Drug Dose 58.8 ml/min Estimated GFR () 74.0 Estimated GFR (Non- 63.9 BUN/Creatinine Ratio 19.6 Random Glucose 273 mg/dl Estimated Average Glucose 192 mg/dl Hemoglobin A1c 8.3 % Calcium Level 8.9 mg/dl Magnesium Level 2.4 mg/dl Test 11/06/16 07:49 Bedside Glucose 294 mg/dl
[2016-11-06] MEDS ORDERED: ROFLUMILAST 500 MCG TAB PO SCH (09:00)
[2016-11-06] MEDS: POTASSIUM CHLORIDE 20 MEQ TABCR PO SCH ×2 (09:19→22:19)
[2016-11-06] MEDS: AZITHROMYCIN 250 MG TAB PO SCH (09:19)
[2016-11-06] MEDS: ROFLUMILAST 500 MCG TAB PO SCH (09:20)
--- NOTE | 2016-11-06 11:45 | Progress Note ---
Subjective Date of Service: Nov 06, 2016. Subjective Pt evaluation today including: conversation w/ patient, conversation w/ family , physical exam, chart review, lab review, review of studies, conversation w/ national sales consultant, review of inpatient medication list Sitting up in bedside, wearing nasal cannula oxygen, mild difficulty breathing when speaking, Problem List Medical Problems: (1) Anemia Status: Acute (2) COPD exacerbation Status: Acute (3) COPD exacerbation Status: Acute (4) Hypomagnesemia Status: Acute (5) Hypoxia Status: Acute (6) Lactic acidosis Status: Acute (7) Sepsis Status: Acute Review of Systems Constitutional: No chills, No fatigue, No fever, No problem reported, No sweats , No weakness, No weight loss Eyes: No diplopia, No discharge, No eye pain, No redness, No worsening of vision ENT: No dental problems, No hearing loss, No nasal symptoms, No sore throat, No tinnitus, No trouble swallowing, No unusual epistaxis Respiratory: + shortness of breath (possible little better), No cough, No dyspnea at rest, No dyspnea on exertion, No hemoptysis, No sputum Cardiac: No PND, No chest pain, No claudication, No edema, No orthopnea, No palpitations Abdomen: No constipation, No diarrhea, No nausea, No pain, No vomiting Musculoskeletal: No calf pain, No joint pain, No muscle pain, No swelling Female : No abnormal vaginal bleeding, No dysuria, No hematuria, No incontinence, No urinary frequency, No vaginal discharge Neurologic: No balance problems, No memory loss, No numbness/tingling, No paralysis, No vertigo, No weakness Psychiatric: No anhedonism, No anxiety, No depression symptoms, No insomnia, No substance abuse Heme: No abnormal bleeding/bruising, No clotting problems, No night sweats, No swollen lymph nodes Endo: No excessive thirst, No excessive urination, No fatigue Skin: No bleeding, No color change, No itch, No new/changing skin lesions, No rash Objective Vital Signs Date Time Temp Pulse Resp B/P Pulse Ox O2 Delivery O2 Flow Rate FiO2 11/06/16 11:33 36.4 82 18 137/86 94 Nasal Cannula 2.0 11/06/16 08:04 36.5 76 18 135/74 94 Nasal Cannula 2.0 11/06/16 08:00 Nasal Cannula 2.0 11/06/16 07:05 88 16 97 Nasal Cannula 2.0 11/06/16 04:00 Nasal Cannula 2.0 11/06/16 04:00 36.4 89 20 110/66 96 2.0 11/06/16 02:39 78 16 98 Nasal Cannula 2.0 11/06/16 00:00 Nasal Cannula 2.0 11/05/16 23:05 36.3 87 18 132/66 94 Nasal Cannula 2.0 11/05/16 20:00 Nasal Cannula 2.0 11/05/16 19:24 36.9 81 20 120/75 96 Nasal Cannula 2.0 11/05/16 19:11 94 16 96 Nasal Cannula 2.0 11/05/16 16:00 Nasal Cannula 2.0 11/05/16 15:08 36.5 107 20 126/68 92 Nasal Cannula 2.0 11/05/16 14:28 78 16 95 Nasal Cannula 2.0 11/05/16 12:00 93 Nasal Cannula 3.0 11/05/16 11:58 78 20 122/80 95 Nasal Cannula 2.0 Physical Exam General Appearance: WD/WN, no apparent distress Eyes: normal inspection, PERRL, EOMI, sclerae normal ENT: normal ENT inspection, hearing grossly normal, pharynx normal Neck: supple, no adenopathy, thyroid normal, no JVD, no carotid bruits, trachea midline Respiratory/Chest: chest non-tender, lungs clear, normal breath sounds, no respiratory distress, no accessory muscle use, + decreased breath sounds ( significantly, however possible thata little better than yesterday) Cardiovascular: regular rate, rhythm, no edema, no gallop, no JVD, no murmur Abdomen: normal bowel sounds, non tender, soft, no organomegaly, no pulsatile mass Extremities: normal range of motion, non-tender, normal inspection, no pedal edema, no calf tenderness, normal capillary refill, pelvis stable Neurologic/Psychiatric: 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-XII nml as tested, no motor/sensory deficits, alert, normal mood/affect, oriented x 3 Skin: normal color, warm/dry, no rash Lymphatic: no adenopathy Laboratory Results Last 24 Hours Test 11/05/16 16:10 11/05/16 20:01 11/06/16 07:29 11/06/16 07:49 Bedside Glucose 171 mg/dl 135 mg/dl 294 mg/dl White Blood Count 9.25 K/uL Red Blood Count 3.85 M/uL Hemoglobin 9.0 g/dL Hematocrit 29.7 % Mean Corpuscular Volume 77.1 fL Mean Corpuscular Hemoglobin 23.4 pg Mean Corpuscular Hemoglobin Concent 30.3 g/dl Platelet Count 374 K/uL Mean Platelet Volume 8.5 fL Neutrophils (%) (Auto) 84.0 % Lymphocytes (%) (Auto) 12.2 % Monocytes (%) (Auto) 3.0 % Eosinophils (%) (Auto) 0.1 % Basophils (%) (Auto) 0.1 % Neutrophils # (Auto) 7.76 K/uL Lymphocytes # (Auto) 1.13 K/uL Monocytes # (Auto) 0.28 K/uL Eosinophils # (Auto) 0.01 K/uL Basophils # (Auto) 0.01 K/uL RDW Standard Deviation 50.5 fL RDW Coefficient of Variation 17.7 % Immature Granulocyte % (Auto) 0.6 % Immature Granulocyte # (Auto) 0.06 K/uL Prothrombin Time 22.1 SECONDS Prothromb Time International Ratio 2.0 Activated Partial Thromboplast Time 30.6 SECONDS Partial Thromboplastin Ratio 1.2 Sodium Level 142 mmol/L Potassium Level 4.7 mmol/L Chloride Level 107 mmol/L Carbon Dioxide Level 29 mmol/L Anion Gap 6.0 mmol/L Blood Urea Nitrogen 18 mg/dl Creatinine 0.90 mg/dl Est Creatinine Clear Calc Drug Dose 58.8 ml/min Estimated GFR () 74.0 Estimated GFR (Non- 63.9 BUN/Creatinine Ratio 19.6 Random Glucose 273 mg/dl Estimated Average Glucose 192 mg/dl Hemoglobin A1c 8.3 % Calcium Level 8.9 mg/dl Magnesium Level 2.4 mg/dl Assessment and Plan 71-year-old white female admitted on 11/03/2016 because of COPD exacerbation COPD exacerbation with hypoxia, possible pneumonia: very slowly improving Chronic home O2 dependent resp failure History of Pulmonary emboli Possible pneumonia in the chest x-ray in the emergency room which was on portable view, associated with elevated lactase level Chest x-ray two-view results reviewed, Continue antibiotic, oxygen, Solu-Medrol nebulizer treatment Switch Vanco and Zosyn to Levaquin, because chest x-ray no severe pneumonia, and blood culture has been negative signal manager input appreciated: keep her Solu-Medrol its current dosing, continue Singulair, Flonase, Symbicort 160/4.5 and Spiriva. 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 Initiating Roflumilast azithromycin and Spiriva would be most appropriate help possibly decrease her readmission rate. Has been on Coumadin at home however INR mildly subtherapeutic today 2 after increasing the dose to 7 mg by mouth daily We'll continue current dose, signal manager recommend to switch to Xarelto oral anticoagulant, acute prescription to watch caser to check for the co-pay to see if able to offer it CHF--continue furosemide 40 mg by mouth every morning, stable potassium chloride 20 mEq by mouth twice a day. GERD--stop pantoprazole 40 mg by mouth every morning for now a vented is contributing to low magnesium, and increase ranitidine from 150 mg by mouth every afternoon to twice a day. Diabetes mellitus-- hold metformin, and place on Accu-Cheks before meals and at bedtime with NovoLog coverage. Check HbA1c Hypothyroidism--continue levothyroxine sodium 25 g by mouth every morning. Anxiety/depression/insomnia--continue clonazepam 0.5 mg by mouth at noon, gabapentin 3 mg by mouth twice a day, mirtazapine 45 mg by mouth at bedtime, and Seroquel 40 mg by mouth at bedtime. Arthritis--continue meloxicam 7.5 mg by mouth twice a day. Allergic rhinitis--continue Flonase allergy relief 1 spray each nostril daily. Because patient history of significant readmission, probable significant medicine noncompliance, I recommend that ECF or rehabilitation, patient totally declined, she wanted to go home GI and DVT prophylaxis Continued [facility] stay due to: multiple IV medications needed Discharge planning: home
[2016-11-06] MEDS: CLONAZEPAM 0.5 MG TAB PO SCH (12:58)
[2016-11-06] MEDS: LEVOFLOXACIN 750 MG TAB PO SCH (12:59)
[2016-11-06] MEDS: WARFARIN PO SCH ×2 (16:22)
[2016-11-06] MEDS: MONTELUKAST SOD 10 MG TAB PO SCH (22:20)
[2016-11-06] MEDS: MIRTAZAPINE TAB 15 MG TAB PO SCH (22:20)
[2016-11-06] MEDS: QUETIAPINE FUMARATE 200 MG TAB PO SCH (22:20)
[2016-11-07] VITALS (13 sets, daily range): BP systolic 99–133; BP diastolic 57–84; PULSE 52–99; TEMP 36.3–37.3; O2SAT 94–97
[2016-11-07] MEDS: METHYLPREDNISOLONE IV 40 MG in SYRINGE 0 ML IV SCH ×3 (01:56→21:44)
[2016-11-07] MEDS: LEVALBUTEROL 1.25MG/0.5ML NEB INH SCH ×4 (01:59→20:04)
[2016-11-07] MEDS: IPRATROPIUM BROMIDE NEB SOLN 0.02% 2.5 ML VIAL INH SCH ×4 (01:59→20:04)
[2016-11-07] MEDS: LEVOTHYROXINE 25 MCG TAB PO SCH (06:25)
[2016-11-07] MEDS: RIVAROXABAN 20 MG TAB PO SCH (07:52)
[2016-11-07] MEDS: MAGNESIUM OXIDE 400 MG TAB PO SCH ×2 (07:52→21:38)
[2016-11-07] MEDS: GABAPENTIN 300 MG CAP PO SCH ×2 (07:53→21:40)
[2016-11-07] MEDS: GUAIFENESIN 200 MG TAB PO SCH ×2 (07:53→21:42)
[2016-11-07] MEDS: MELOXICAM 7.5 MG TAB PO SCH ×2 (07:53→21:38)
[2016-11-07] MEDS: FLUTICASONE PROPIONATE NA SPR 16 GM BTL SCH (07:53)
[2016-11-07] MEDS: RANITIDINE HCL 150 MG TAB PO SCH ×2 (07:53→21:41)
[2016-11-07] MEDS: CEROVITE ADV FORMULA TAB PO SCH (07:53)
[2016-11-07] MEDS: POTASSIUM CHLORIDE 20 MEQ TABCR PO SCH ×2 (07:54→21:43)
[2016-11-07] MEDS: ROFLUMILAST 500 MCG TAB PO SCH (07:54)
[2016-11-07] MEDS: CALCIUM 600MG + VIT D 400 IU TAB PO SCH (07:54)
[2016-11-07] MEDS: DOCUSATE SODIUM 100 MG CAP PO SCH ×2 (07:54→21:40)
[2016-11-07] MEDS: FUROSEMIDE 20 MG TAB PO SCH (07:54)
[2016-11-07] MEDS: AZITHROMYCIN 250 MG TAB PO SCH (07:55)
[2016-11-07] MEDS: INSULIN ASPART 100 UNITS/ML 3 ML PEN SC SCH ×4 (08:26→21:49)
[2016-11-07] MEDS: LEVOFLOXACIN 750 MG TAB PO SCH (10:47)
[2016-11-07] MEDS: CLONAZEPAM 0.5 MG TAB PO SCH (11:22)
--- NOTE | 2016-11-07 12:55 | PROGRESS NOTE ---
DATE: 11/07/2016 PROBLEM LIST: Includes: 1. Chronic obstructive pulmonary disease exacerbation. 2. History of pulmonary emboli. 3. Diastolic heart failure. SUBJECTIVE: The patient reports that she is noticing improvement of her breathing. She states that her breathing is better. She states that she is almost back to her baseline. She states she still does have a little bit of cough that was nonproductive and is much better than previous. She states that she has not noticed any wheezing. No chest heaviness or tightness. No chest pain or painful respirations. She denies any other concerns or problems. No abdominal pain. No nausea or vomiting. No indigestion, heartburn or difficulty with her bowels. No difficulty voiding. OBJECTIVE: GENERAL: The patient is a 71-year-old female, lying in bed, was asleep when I entered, but awakened easily. She is alert and oriented x3. Mood is good. Affect is good. VITAL SIGNS: Temp 36.3, pulse 80, respirations 16, blood pressure is 122/76 and pulse ox 96% on 2 liters. HEENT: Normocephalic and atraumatic. Pupils equal, round and reactive to light and accommodation. Extraocular movements are intact. [place] moist gingival and buccal mucosa. NECK: Supple. There is no mass, no adenopathy, and no bruit. CHEST: She has some decreased breath sounds bilaterally. I did not appreciate any wheeze at this time. No rale or rhonchi noted. CARDIOVASCULAR: Regular rate and rhythm. No murmurs, gallops or rubs. ABDOMEN: Bowel sounds present. Abdomen is soft and nontender. No guarding, rigidity or organomegaly. EXTREMITIES: No erythema or edema. LABORATORY DATA: No new lab data. No new imaging data. IMPRESSION: This is a 71-year-old female with chronic obstructive pulmonary disease exacerbation, who is on oxygen at 2 liters per minute via nasal cannula at home. At this time, she is showing improvement. I would recommend that she continue her Singulair, Flonase, Symbicort and Spiriva. Also continue the roflumilast and azithromycin. At this point, I think we can definitely cut down her steroids. We will change it to 30 mg q. 12 hours. Would recommend to continue treatment including pulmonary toilet. I did discuss with the patient about outpatient pulmonary followup. She states that she is going to see outpatient windows system admin in the [place] area. At this time, we will continue to follow the hospitalization, but anticipate at least from pulmonary standing she be discharged within the next 24-48 hours. JULISSA
[2016-11-07] MEDS ORDERED: METOPROLOL TARTRATE 1 MG/ML VIAL IV PRN (14:30)
--- NOTE | 2016-11-07 16:08 | Hospitalist Progress Note ---
Hospitalist Progress Note Date of Service Nov 07, 2016. Subjective Pt evaluation today including: conversation w/ patient, physical exam, chart review, lab review, review of studies, review of inpatient medication list The patient reports feeling better each day. She tells me that she lives alone , but has good support from neighbors and friends. She uses supplemental oxygen at home at 2 L. She is currently using 2 L . She declines having CP, N/V/D, Fever/chills. Her cough has lessened and she feels less short of breath than yesterday. Additional Comments: A 10 system review was performed and all were negative. Positives were placed in the subjective section. Objective Vital Signs Date Time Temp Pulse Resp B/P Pulse Ox O2 Delivery O2 Flow Rate FiO2 11/07/16 15:14 37.3 52 16 122/68 97 Nasal Cannula 2.0 11/07/16 14:21 92 16 95 Nasal Cannula 2.0 11/07/16 11:36 36.3 80 16 122/76 96 11/07/16 11:26 Nasal Cannula 2.0 11/07/16 08:00 Nasal Cannula 2.0 11/07/16 07:37 36.7 75 18 118/64 95 Nasal Cannula 2.0 11/07/16 07:33 92 16 96 Nasal Cannula 2.0 11/07/16 04:00 36.6 86 20 133/77 97 2.0 11/07/16 04:00 94 Nasal Cannula 3.0 11/07/16 01:59 99 16 96 Nasal Cannula 2.0 11/07/16 00:00 36.4 84 20 133/76 94 11/07/16 00:00 94 Nasal Cannula 3.0 11/06/16 20:00 94 Nasal Cannula 3.0 11/06/16 19:24 86 16 98 Nasal Cannula 3.0 11/06/16 19:22 37.0 72 18 132/75 98 11/06/16 16:00 94 Nasal Cannula 3.0 Physical Exam Notes: GEN: Awake, alert, and oriented x 3. Not in acute distress HEENT: Tm's intact, no inflammation, EOMI, PERRLA, MMM Neck: Soft, supple Lungs: + Exp wheezes b/l. trace rhonchi in the mid lung max. Heart: REG, nrl S1S2 without murmurs, rubs or gallops Abdomen: Soft, NT, ND, + BS EXT: No C/C/E NEURO: CN's II-XII grossly intact, non-focal Skin: warm, dry, no rashes PSYCH: pleasant, cooperative, no signs of significant anxiety or depression. Laboratory Results Last 24 Hours Test 11/06/16 16:44 11/06/16 20:25 11/07/16 07:29 11/07/16 11:18 Bedside Glucose 152 mg/dl 235 mg/dl 275 mg/dl 206 mg/dl Assessment and Plan 1) COPD exacerbation - Continues on oral Levaquin and Azithromycin. Solu- medrol decreased to 40mg Q 12hr. Oxygen at baseline. NEBs. Roflumilast per pulm. 2) CHF - compensated as she is using chronic daily Lasix at 40mg and Potassium 20meq BID. 3) GERD - ranitidine has been increased to 150mg BID as pantoprazole was stopped for concerns of lowering magnesium. 4) History of PE - had been taking warfarin and has now been switched to Xarelto. She is tolerating this well. 5) Type II DM - Novolog coverage. 6) Hypothyroidism - continue levothyroxine. 7) DVT prophylaxis covered as she is taking Xarelto. 8) Insomnia/anxiety - patient uses clonazepam, gabapentin, Seroquel, and mirtazapine chronically. 9) Osteoarthritis (diffuse) - Meloxicam 7.5mg BID 10) allergic rhinitis - Flonase allergy Anticipate discharge to home in 24-48 hours. Discharge planning: home
[2016-11-07] MEDS: MONTELUKAST SOD 10 MG TAB PO SCH (21:41)
[2016-11-07] MEDS: QUETIAPINE FUMARATE 200 MG TAB PO SCH (21:43)
[2016-11-07] MEDS: MIRTAZAPINE TAB 15 MG TAB PO SCH (21:43)
[2016-11-07] MEDS: LEVALBUTEROL 1.25MG/0.5ML NEB INH PRN (22:45)
[2016-11-07] MEDS: IPRATROPIUM BROMIDE NEB SOLN 0.02% 2.5 ML VIAL INH PRN (22:45)
[2016-11-08] VITALS (12 sets, daily range): BP systolic 103–145; BP diastolic 58–85; PULSE 74–102; TEMP 36.6–37.3; O2SAT 93–99
[2016-11-08] MEDS: IPRATROPIUM BROMIDE NEB SOLN 0.02% 2.5 ML VIAL INH SCH ×5 (03:00→19:53)
[2016-11-08] MEDS: LEVALBUTEROL 1.25MG/0.5ML NEB INH SCH ×5 (03:00→19:53)
[2016-11-08] MEDS: LEVOTHYROXINE 25 MCG TAB PO SCH (05:51)
[2016-11-08] MEDS: MAGNESIUM OXIDE 400 MG TAB PO SCH ×2 (08:18→20:44)
[2016-11-08] MEDS: FLUTICASONE PROPIONATE NA SPR 16 GM BTL SCH (08:18)
[2016-11-08] MEDS: FUROSEMIDE 20 MG TAB PO SCH (08:18)
[2016-11-08] MEDS: CALCIUM 600MG + VIT D 400 IU TAB PO SCH (08:18)
[2016-11-08] MEDS: ROFLUMILAST 500 MCG TAB PO SCH (08:18)
[2016-11-08] MEDS: POTASSIUM CHLORIDE 20 MEQ TABCR PO SCH ×2 (08:18→20:40)
[2016-11-08] MEDS: GABAPENTIN 300 MG CAP PO SCH ×2 (08:18→20:45)
[2016-11-08] MEDS: RANITIDINE HCL 150 MG TAB PO SCH ×2 (08:18→20:46)
[2016-11-08] MEDS: MELOXICAM 7.5 MG TAB PO SCH ×2 (08:18→20:45)
[2016-11-08] MEDS: CEROVITE ADV FORMULA TAB PO SCH (08:18)
[2016-11-08] MEDS: DOCUSATE SODIUM 100 MG CAP PO SCH ×2 (08:18→20:39)
[2016-11-08] MEDS: GUAIFENESIN 200 MG TAB PO SCH ×2 (08:18→20:42)
[2016-11-08] MEDS: RIVAROXABAN 20 MG TAB PO SCH (08:18)
[2016-11-08] MEDS: AZITHROMYCIN 250 MG TAB PO SCH (08:19)
[2016-11-08] MEDS: METHYLPREDNISOLONE IV 40 MG in SYRINGE 0 ML IV SCH (08:19)
[2016-11-08] MEDS: INSULIN ASPART 100 UNITS/ML 3 ML PEN SC SCH ×5 (08:21→20:58)
[2016-11-08 08:49] LABS: BASO % 0.1 %; BASO ABS # 0.01 K/uL (0-0.2); COMPLETE YES; EOS % 0.1 %; HEMATOCRIT 29.6 % (37-47); IG% 0.6 %; LYMPH ABS # 2.35 K/uL (1.2-3.4); MEAN CELL VOLUME 77.3 fL (80-100); MEAN CORPUSCULAR HEMOGLOBIN 23.8 pg (25-34); MEAN CORPUSCULAR HGB CONC 30.7 g/dl (32-36); MEAN PLATELET VOLUME 8.9 fL (7.4-10.4); MONO % 7.2 %; PLATELET COUNT 376 K/uL (130-400); RED BLOOD COUNT 3.83 M/uL (4.2-5.4); WHITE BLOOD COUNT 11.21 K/uL (4.8-10.8)
[2016-11-08 09:12] LABS: BUN/CREATININE RATIO 29.4 (10-20); CALCIUM 8.8 mg/dl (8.5-10.1); CREATININE 0.78 mg/dl (0.60-1.20); POTASSIUM 4.2 mmol/L (3.5-5.1)
[2016-11-08] MEDS: IPRATROPIUM BROMIDE NEB SOLN 0.02% 2.5 ML VIAL INH PRN (10:43)
[2016-11-08] MEDS: LEVALBUTEROL 1.25MG/0.5ML NEB INH PRN (10:43)
--- NOTE | 2016-11-08 11:01 | PULMONARY PROGRESS NOTE ---
DATE: 11/08/2016 DATE: 11/08/2016. TIME: 10:30 a.m. SUBJECTIVE: The patient is generally feeling better. She is breathing much better than when she first came in. She feels that her breathing is almost back to normal. Her cough is much improved. She denies chest pains. The patient tells me that she has had 10 hospital admissions in the past year. She acknowledges that she gets scared at night and has shortness of breath at nighttime. She lives alone in an apartment. The patient states she does snore. She has caregivers who come in with her at times. One of them told her once that they thought she was stopping breathing when she was sleeping. This occurred when she was taking a nap during the day. She states she has never had a sleep study. The patient does have difficulty initiating sleep and part of this is because she is nervous. She does not go to bed until between 11:00 p.m. and 1:00 a.m. She then has an average of 2 nocturnal awakenings. During the day she is somewhat tired. She indicates that she naps 3-4 times per week. PHYSICAL EXAMINATION: GENERAL: The patient appeared comfortable. She was cooperative, alert and oriented. VITAL SIGNS: Temperature is 36.6. HEAD, EYES, EARS, NOSE, AND THROAT: Eye exam showed pupils were reactive. It appeared she previously had cataract surgeries. Nares were clear. Mouth exam showed a Mallampati grade 3 pharynx. NECK: Palpation of the neck reveals no lymph nodes. CHEST: Showed a dorsal kyphosis. HEART: Heart rate was 78 per minute. The rhythm was regular. LUNGS: Lama revealed faint wheezes and very faint rales. Respiratory rate was 18 breaths per minute. Saturation was 95% on 2 liters. ABDOMEN: Somewhat obese. Bowel sounds were present. The abdomen was nontender. EXTREMITIES: Showed no cyanosis, clubbing or edema. LABORATORY DATA: White count today was 11.21. Hemoglobin is 9.1. Platelets are 376,000. Electrolytes today show sodium 138, potassium 4.2, chloride 102, bicarbonate 31. BUN was 23 with a creatinine of 0.78. Blood sugar 224. The patient did have a Doppler done on the that was negative. Chest x-ray from 11/04/2016 was read as mild atelectasis at the left base with an inability to exclude pneumonia. I reviewed the x-ray and would tend to agree with probable small amount of atelectasis. IMPRESSIONS: 1. Chronic obstructive pulmonary disease with exacerbation. 2. History of pulmonary emboli. 3. Anxiety. 4. Rule out obstructive sleep apnea. RECOMMENDATIONS: The patient is feeling much better. I would change the steroids to oral. This should be done to allow to see how she does once she is off the IV steroids in preparation for discharge. She is still on Levaquin. She is on levalbuterol and ipratropium every 6 hours. She is on rivaroxaban, which apparently was just started this hospital stay. I spoke with the patient about sleep apnea. Apparently once in the Emergency Room they did try CPAP or BiPAP and she absolutely hated it. I explained to her that it still might be useful to have a sleep study done. Many times as an outpatient they could get masks that are much less claustrophobic producing. I believe that is her major issue and fear. Apparently she does go to a outside cutter hand in [place]. If she wanted a sleep study it could be done here or through her outside cutter hand she usually sees. I would expect she may be ready for discontinue in a day or so.
[2016-11-08] MEDS: LEVOFLOXACIN 750 MG TAB PO SCH (12:15)
[2016-11-08] MEDS: CLONAZEPAM 0.5 MG TAB PO SCH (12:15)
[2016-11-08] MEDS ORDERED: NURSING VERBAL MED ORDER ONE (13:45)
--- NOTE | 2016-11-08 18:36 | Hospitalist Progress Note ---
Hospitalist Progress Note Date of Service Nov 08, 2016. Subjective Pt evaluation today including: conversation w/ patient, physical exam, chart review, lab review, review of studies, review of inpatient medication list Patient feels not quite to baseline yet. She is concerned too that we are to have a significant change in the outside temperature from today into tomorrow. Additional Comments: A 10 system review was performed and all were negative. Positives were placed in the subjective section. Objective Vital Signs Date Time Temp Pulse Resp B/P Pulse Ox O2 Delivery O2 Flow Rate FiO2 11/08/16 16:00 96 Nasal Cannula 2.0 11/08/16 15:48 37.2 89 18 122/77 96 Nasal Cannula 2.0 11/08/16 14:50 102 20 97 Nasal Cannula 2.0 11/08/16 12:19 37.3 84 20 129/82 93 2.0 11/08/16 12:00 Nasal Cannula 2.0 11/08/16 10:42 86 20 95 Nasal Cannula 2.0 11/08/16 07:59 36.6 78 18 103/58 95 2.0 11/08/16 07:45 Nasal Cannula 2.0 11/08/16 06:09 74 20 97 Nasal Cannula 2.0 11/08/16 04:20 36.7 75 18 128/80 99 2.0 11/08/16 04:00 Nasal Cannula 2.0 11/08/16 00:00 Nasal Cannula 2.0 11/08/16 00:00 Nasal Cannula 2.0 11/07/16 23:48 36.8 89 18 132/82 95 Nasal Cannula 3.0 11/07/16 22:45 57 26 97 Nasal Cannula 2.0 11/07/16 20:22 36.9 91 12 99/57 97 3.0 102/84 11/07/16 20:04 90 26 97 Nasal Cannula 2.0 Physical Exam Notes: GEN: Awake, alert, and oriented x 3. Not in acute distress HEENT: Tm's intact, no inflammation, EOMI, PERRLA, MMM Neck: Soft, supple Lungs: CTA b/l, no r/r + exp wheezes. Heart: REG, nrl S1S2 without murmurs, rubs or gallops Abdomen: Soft, NT, ND, + BS EXT: No C/C/E NEURO: CN's II-XII grossly intact, non-focal Skin: warm, dry, no rashes PSYCH: pleasant, cooperative, no signs of significant anxiety or depression. Laboratory Results Last 24 Hours Test 11/07/16 20:16 11/08/16 07:44 11/08/16 07:49 11/08/16 11:45 Bedside Glucose 227 mg/dl 231 mg/dl 232 mg/dl White Blood Count 11.21 K/uL Red Blood Count 3.83 M/uL Hemoglobin 9.1 g/dL Hematocrit 29.6 % Mean Corpuscular Volume 77.3 fL Mean Corpuscular Hemoglobin 23.8 pg Mean Corpuscular Hemoglobin Concent 30.7 g/dl Platelet Count 376 K/uL Mean Platelet Volume 8.9 fL Neutrophils (%) (Auto) 71.0 % Lymphocytes (%) (Auto) 21.0 % Monocytes (%) (Auto) 7.2 % Eosinophils (%) (Auto) 0.1 % Basophils (%) (Auto) 0.1 % Neutrophils # (Auto) 7.96 K/uL Lymphocytes # (Auto) 2.35 K/uL Monocytes # (Auto) 0.81 K/uL Eosinophils # (Auto) 0.01 K/uL Basophils # (Auto) 0.01 K/uL RDW Standard Deviation 50.2 fL RDW Coefficient of Variation 17.5 % Immature Granulocyte % (Auto) 0.6 % Immature Granulocyte # (Auto) 0.07 K/uL Sodium Level 138 mmol/L Potassium Level 4.2 mmol/L Chloride Level 102 mmol/L Carbon Dioxide Level 31 mmol/L Anion Gap 5.0 mmol/L Blood Urea Nitrogen 23 mg/dl Creatinine 0.78 mg/dl Est Creatinine Clear Calc Drug Dose 67.5 ml/min Estimated GFR () 88.0 Estimated GFR (Non- 76.0 BUN/Creatinine Ratio 29.4 Random Glucose 224 mg/dl Calcium Level 8.8 mg/dl Test 11/08/16 16:04 Bedside Glucose 214 mg/dl Assessment and Plan 1) COPD exacerbation - Continues on oral Levaquin and Azithromycin. cont Solu- medrol 40mg Q 12hr. Oxygen at baseline. NEBs. Roflumilast per pulm. 2) CHF - compensated 3) GERD - stable (ranitidine had been increased to 150mg BID as pantoprazole was stopped for concerns of lowering magnesium) 4) History of PE - had been taking warfarin and has now been switched to Xarelto. She is tolerating this well. 5) Type II DM - Novolog coverage. 6) Hypothyroidism - continue levothyroxine. 7) DVT prophylaxis covered as she is taking Xarelto. 8) Insomnia/anxiety - patient uses clonazepam, gabapentin, Seroquel, and mirtazapine chronically. 9) Osteoarthritis (diffuse) - Meloxicam 7.5mg BID 10) allergic rhinitis - Flonase allergy Anticipate discharge to home tomorrow.
[2016-11-08] MEDS: MIRTAZAPINE TAB 15 MG TAB PO SCH (20:43)
[2016-11-08] MEDS: QUETIAPINE FUMARATE 200 MG TAB PO SCH (20:44)
[2016-11-08] MEDS: MONTELUKAST SOD 10 MG TAB PO SCH (20:46)
[2016-11-09] VITALS (9 sets, daily range): BP systolic 137–172; BP diastolic 82–91; PULSE 67–109; TEMP 36.5–36.6; O2SAT 95–97
[2016-11-09] MEDS: IPRATROPIUM BROMIDE NEB SOLN 0.02% 2.5 ML VIAL INH SCH ×2 (02:20→07:27)
[2016-11-09] MEDS: LEVALBUTEROL 1.25MG/0.5ML NEB INH SCH ×2 (02:20→07:27)
[2016-11-09] MEDS: LEVOTHYROXINE 25 MCG TAB PO SCH (05:28)
[2016-11-09] MEDS: CALCIUM 600MG + VIT D 400 IU TAB PO SCH (08:30)
[2016-11-09] MEDS: ROFLUMILAST 500 MCG TAB PO SCH (08:30)
[2016-11-09] MEDS: DOCUSATE SODIUM 100 MG CAP PO SCH (08:30)
[2016-11-09] MEDS: FLUTICASONE PROPIONATE NA SPR 16 GM BTL SCH (08:30)
[2016-11-09] MEDS: AZITHROMYCIN 250 MG TAB PO SCH (08:31)
[2016-11-09] MEDS: MELOXICAM 7.5 MG TAB PO SCH (08:31)
[2016-11-09] MEDS: FUROSEMIDE 20 MG TAB PO SCH (08:31)
[2016-11-09] MEDS: POTASSIUM CHLORIDE 20 MEQ TABCR PO SCH (08:31)
[2016-11-09] MEDS: GABAPENTIN 300 MG CAP PO SCH (08:31)
[2016-11-09] MEDS: CEROVITE ADV FORMULA TAB PO SCH (08:31)
[2016-11-09] MEDS: RANITIDINE HCL 150 MG TAB PO SCH (08:31)
[2016-11-09] MEDS: RIVAROXABAN 20 MG TAB PO SCH (08:31)
[2016-11-09] MEDS: GUAIFENESIN 200 MG TAB PO SCH (08:31)
[2016-11-09] MEDS: MAGNESIUM OXIDE 400 MG TAB PO SCH (08:31)
[2016-11-09] MEDS: INSULIN ASPART 100 UNITS/ML 3 ML PEN SC SCH ×2 (08:35→11:58)
--- NOTE | 2016-11-09 08:48 | PULMONARY PROGRESS NOTE ---
DATE: 11/09/2016 TIME: 08:20 a.m. SUBJECTIVE: The patient is feeling good. She had a good day yesterday. She denies any significant shortness of breath. She has been walking to the bathroom without difficulty. Her cough is minimal. OBJECTIVE: GENERAL: The patient is cooperative, alert and oriented. She was in no distress. Temperature was 36.5. EARS, NOSE, AND THROAT: Exam is unremarkable. HEART: Heart rate was 67 per minute. The rhythm was regular. Blood pressure 154/88. LUNGS: Lung max were clear. Breath sounds were mildly diminished. Respiratory rate 16 breaths per minute. Saturations 96% on 2 liters. EXTREMITIES: Showed no cyanosis, clubbing or edema. Blood sugar this morning was 242. IMPRESSIONS: 1. Chronic obstructive pulmonary disease with exacerbation. 2. History of pulmonary emboli. 3. Anxiety. 4. Rule out obstructive sleep apnea. COMMENTS AND RECOMMENDATIONS: The patient seems to be stable. I have no objection to discharge whenever desired. She indicated that the person who was to take her home today could not pick her up, so there may be a transportation issue. I spoke with her again about a sleep study. I suggested that she speak with Dr. Lucas, her family doctor about this. She apparently had seen a insurance law specialist once in [place]. I told her she could either get the sleep study through him or we would be happy to do it up here. I told her to have Dr. Lucas refill her to us if that was desired. She is currently on prednisone 40 mg. Would gradually taper that. She likewise can go back on her usual medications at home. We will see again only if requested.
[2016-11-09] MEDS ORDERED: PRED10TA PO (10:53)
[2016-11-09] MEDS ORDERED: ZNT150 PO (10:53)
[2016-11-09] MEDS ORDERED: MGNO400 PO (10:53)
[2016-11-09] MEDS ORDERED: XRL20 PO (10:53)
[2016-11-09] MEDS ORDERED: DLR500 PO (10:53)
[2016-11-09] MEDS: IPRATROPIUM BROMIDE NEB SOLN 0.02% 2.5 ML VIAL INH PRN (11:13)
[2016-11-09] MEDS: LEVALBUTEROL 1.25MG/0.5ML NEB INH PRN (11:13)
--- NOTE | 2016-11-09 11:13 | Discharge Instructions ---
Discharge Instructions Admission Reason for Admission: Copd Exacerbation, Hypoxia Discharge Discharge Diagnosis / Problem: COPD exacerbation/low magensium level Discharge Goals Goal(s): Improve function, Improve disease control Activity Recommendations Activity Limitations: resume your previous activity . Instructions / Follow-Up Instructions / Follow-Up You were treated for an exacerbation of COPD in the hospital. Your meals on wheels driver, Dr. Meyers, added a new medication called Daliresp ( roflumilast). You have a prescription for this. He also recommended that you take azithromycin (which is an antibiotic) 3 times per week (on Thursday, Thursday, and Thursday). Take prednisone (tapering down) as follows: Prednisone 10mg tablets take 3 pills a day (all at one time and with food) on days 1,2,& 3. take 2 pills a day on days 4,5,6, & 7. take 1 pill a day on days 8,9, & 10. We found that your magnesium level was low at 1.4 when you were admitted. This returned to normal before you were discharged. Because of the low magnesium, we are giving you magnesium supplement twice a day. You have a prescription for that. Also because medications like Protonix (pantoprazole) have been associated with low magnesium, we stopped this medication. In place of the pantoprazole, (which you use for acid reflux/GERD) we are giving you Zantac twice a day instead of your previous dose of once a day. You have a history of pulmonary embolus or a blood clot in your lung. You were taking Coumadin (warfarin) to keep your blood thin to prevent further blood clots. We felt that changing this medication to Xarelto (rivaroxaban) would be easier for you to manage. This new medication does not require you to have blood tests to monitor. Please make sure that you STOP taking Coumadin (warfarin). Follow up with your PCP in 5-7 days. Follow up with Pulmonology, Dr. Meyers in roughly 2 weeks - call his office for an appointment. I will ask home health to visit you to assist with these new changes. Current Hospital Diet Patient's current hospital diet: AHA Diet (Heart Healthy), Diabetes Type 2 Diet Discharge Diet Recommended Diet: AHA Diet (Heart Healthy), Diabetes Type 2 Diet Procedures Procedures Performed: NONE. Pending Studies Studies pending at discharge: no Laboratory Results Hemoglobin A1c Test 11/06/16 07:29 Range/Units Estimated Average Glucose 192 mg/dl Hemoglobin A1c 8.3 H 4.5-5.6 % Medical Emergencies . Who to Call and When: Medical Emergencies: If at any time you feel your situation is an emergency, please call 911 immediately. . Non-Emergent Contact Non-Emergency issues call your: Primary Care Provider . . "Provider Documentation" section prepared by Arturo Patel. VTE Core Measure Inpt VTE Proph given/why not?: Other Anticoagulation (Xarelto), SCD's
[2016-11-09] MEDS: CLONAZEPAM 0.5 MG TAB PO SCH (11:55)
[2016-11-09] MEDS: LEVOFLOXACIN 750 MG TAB PO SCH (11:55)
--- NOTE | 2016-11-09 12:08 | Discharge Summary ---
Discharge Summary Date of Service Nov 09, 2016. Discharge Summary Admission Date: Nov 04, 2016 at 00:50 Discharge Date: Nov 09, 2016 Discharge Disposition: Home with services Principal Diagnosis: COPD exacerbation Problems/Secondary Diagnoses: History of PE, hypomagnesemia, GERD. Procedures: NONE. Consultations: Pulmonology, Dr. Clem Meyers M.D. Medication Reconciliation New Medications: Prednisone Tab (Prednisone) 10 Mg Tab 10 MG PO DIRECTED for 10 Days, #20 TAB NS Magnesium Oxide (Magnesium-Oxide) 400 Mg Tab 400 MG PO BID for 30 Days, #60 TAB 0 Refills Ranitidine HCl (Ranitidine HCl) 150 Mg Tab 150 MG PO BID for 30 Days, #60 TAB 0 Refills Rivaroxaban (Xarelto) 20 Mg Tab 20 MG PO DAILY for 30 Days, #30 TAB 0 Refills Roflumilast (Daliresp) 500 Mcg Tab 500 MCG PO DAILY for 30 Days, #30 TAB 0 Refills Continued Medications: Albuterol Sulf (Albuterol Sulfate) 2.5 Mg/3 Ml Nebu 2.5 MG INH Q4H PRN for sob/wheezing, #60 UNITS Azithromycin (Zithromax) 250 Mg Tab 250 MG PO 3XWK, #4 TAB 3 X WEEKLY ON THURSDAY, THURSDAY, THURSDAY UPON DISCHARGE Calcium Carbonate-Cholecalcife (Oyster Shell Calcium + D) 1 Tab Tab 1 TAB PO QAM Clonazepam (Clonazepam) 0.5 Mg Tab 0.5 MG PO NOON Fluticasone Propionate (Nasal) (Flonase Allergy Relief) 50 Mcg/Act Spr 1 SPRAY NA DAILY Furosemide (Furosemide) 20 Mg Tab 40 MG PO QAM, #30 TAB Gabapentin (Neurontin) 300 Mg Cap 300 MG PO BID, CAP Ipratropium-Albuterol (Duoneb) 3 Ml Nebu 1 TREATMENT INH QID, #120 INHA Levothyroxine Sodium (Synthroid) 25 Mcg Tab 25 MCG PO QAM, TAB Meloxicam (Meloxicam) 7.5 Mg Tab 7.5 MG PO BID Metformin Hcl (Glucophage) 1,000 Mg Tab 1 TAB PO BID for 30 Days, #60 TAB 5 Refills Mirtazapine (Remeron) 45 Mg Tab 45 MG PO HS, #30 TAB Mometasone Furoate-Formoterol (Dulera 200/5 Mcg) 1 Aer Aer 1 PUFF INH BID, INHALER Montelukast Sodium (Singulair) 10 Mg Tab 10 MG PO HS, TAB Multiple Vitamins W/ Iron (Multi Vitamin with Iron) 1 Tab Tab 1 TAB PO QAM Potassium Chloride (Klor-Con M20) 20 Meq Tabcr 20 MEQ PO BID Quetiapine Fumarate (Seroquel) 400 Mg Tab 400 MG PO HS, TAB Tiotropium [place] (Spiriva Handihaler) 30 Puff/540 Mcg Aerp 1 CAP INH DAILY, INHALER Discontinued Medications: Pantoprazole (Protonix) 40 Mg Tab 40 MG PO QAM, #30 TAB Ranitidine (Zantac) 150 Mg Tab 150 MG PO QPM, TAB Warfarin Sod (Coumadin) 2.5 Mg Tab 2.5 MG PO DAILY@1800, TAB TAKE WITH 4MG TOTAL 6.5 MG DAILY Warfarin Sodium (Coumadin) 4 Mg Tab 4 MG PO DAILY@1800, TAB Discharge Exam A 10 system review was performed and all were negative. GEN: Awake, alert, and oriented x 3. Not in acute distress HEENT: Tm's intact, no inflammation, EOMI, PERRLA, MMM Neck: Soft, supple Lungs: CTA b/l, no r/r Mild exp wheezes b/l. Heart: REG, nrl S1S2 without murmurs, rubs or gallops Abdomen: Soft, NT, ND, + BS EXT: No C/C/E NEURO: CN's II-XII grossly intact, non-focal Skin: warm, dry, no rashes PSYCH: pleasant, cooperative, has flat affect. Hospital Course Patient was admitted with a COPD exacerbation and given Levaquin and Azithromycin, Solu-medrol, supplemental oxygen (she normally uses 2L nc at home) , and NEBs. Dr. Meyers evaluated the patient and added Roflumilast to her regiment. Also it was recommended to have the patient take azithromycin 3 times weekly on mon-wed-fri. As she improved clinically, her steroid was tapered which will continue as a prednisone taper at discharge. The patient exhibited a low magnesium level on admission which was 1.4. She was given supplemental Mag and pantoprazole was stopped. To cover her GERD then Zantac was increased to BID dosing. As patient was a bit subtherapeutic on warfarin on admission, it was felt that she would be better able to manage with Xarelto for anticoagulation. She tolerated this product in the hospital and was discharged on the same. At discharge, she was at her baseline oxygen requirements. She was able to ambulate in her room without SOB. She wanted to go home. Because she has multiple new medications and with the importance for her to stop warfarin and replace with Xarelto, I asked home health to make visits to assist the patient. Total Time Spent: Greater than 30 minutes This includes examination of the patient, discharge planning, medication reconciliation, and communication with other providers. Discharge Instructions Please refer to the electronic Patient Visit Report (Discharge Instructions) for additional information. Follow-Up PCP in 5-[address] Meyers, in 2 weeks.
[2017-04-18] MEDS ORDERED: LVQ500 PO (12:33)
[2017-04-18] MEDS ORDERED: PRED20TA PO (12:33)
[2017-05-12] MEDS ORDERED: PLMINS INH ×2 (11:58→16:39)
[2017-05-12] MEDS ORDERED: ARFO15NE INH ×2 (11:58→16:39)
== END 2016-11-09 12:54 | disposition home health service (06) | DRG 190 ==
LOC: ENRESERVTM → ENRESERVDT → EDBD 23:00 → C.EDB 23:02 → C.EDINP 11-04 00:50 → C.MED 11-04 16:56
PROVIDERS: ADMIT Hospitalist; ATTEND Hospitalist
DX: J44.1 Chronic obstructive pulmonary disease with (acute) exacerbation (principal); J96.21 Acute and chronic respiratory failure with hypoxia; J18.9 Pneumonia, unspecified organism; I50.32 Chronic diastolic (congestive) heart failure; J44.0 Chronic obstructive pulmonary disease with (acute) lower respiratory infection; E83.42 Hypomagnesemia; K21.9 Gastro-esophageal reflux disease without esophagitis; F32.9 Major depressive disorder, single episode, unspecified; G47.00 Insomnia, unspecified; R79.1 Abnormal coagulation profile; G47.33 Obstructive sleep apnea (adult) (pediatric); M19.90 Unspecified osteoarthritis, unspecified site; E03.9 Hypothyroidism, unspecified; J30.9 Allergic rhinitis, unspecified; F41.9 Anxiety disorder, unspecified; E11.9 Type 2 diabetes mellitus without complications; Z85.43 Personal history of malignant neoplasm of ovary; Z86.711 Personal history of pulmonary embolism; Z87.891 Personal history of nicotine dependence; Z99.81 Dependence on supplemental oxygen; Z80.41 Family history of malignant neoplasm of ovary; Z79.01 Long term (current) use of anticoagulants; Z79.84 Long term (current) use of oral hypoglycemic drugs; Z79.899 Other long term (current) drug therapy

== ENCOUNTER 2017-01-08 12:18 | Emergency (ER) | payer OTHER ==
[~2017-01-08] VITALS: Ht 157.5 cm; Wt 84.6 kg
[~2017-01-08 12:18] MED LIST changes: +AZIT250T PO; -CMD/25 PO; +DLR500 PO; -DXY100 PO; +MGNO400 PO; -PANT40TA PO; -PRED10TA PO; -WARF4TAB PO; +XRL20 PO; +ZNT150 PO; -ZNTT/150 PO
[2017-01-08 12:24] VITALS: TEMP 36.8; Ht 157.5 cm; Wt 84.6 kg
[2017-01-08] MEDS ORDERED: ALBUT/IPRATROP 3MG/0.5MG NEB 3 ML VIAL INH STA (13:01)
[2017-01-08 13:12] VITALS: O2SAT 100
[2017-01-08] MEDS ORDERED: WARF4TAB44 PO (13:27)
[2017-01-08 13:38] LABS: BASO % 0.5 %; BASO ABS # 0.04 K/uL (0-0.2); COMPLETE YES; EOS % 8.4 %; HEMATOCRIT 34.8 % (37-47); IG% 0.1 %; LYMPH % 22.8 %; LYMPH ABS # 1.71 K/uL (1.2-3.4); MEAN CELL VOLUME 81.1 fL (80-100); MEAN CORPUSCULAR HEMOGLOBIN 24.7 pg (25-34); MEAN CORPUSCULAR HGB CONC 30.5 g/dl (32-36); MEAN PLATELET VOLUME 9.1 fL (7.4-10.4); MONO % 8.9 %; NEUT % 59.3 %; PLATELET COUNT 371 K/uL (130-400); RED BLOOD COUNT 4.29 M/uL (4.2-5.4)
[2017-01-08] MEDS ORDERED: PHEL PO (13:41)
[2017-01-08 13:45] LABS: ALT/SGPT 27 U/L (12-78); AST/SGOT 18 U/L (15-37); BLOOD UREA NITROGEN 14 mg/dl (7-18); BUN/CREATININE RATIO 15.4 (10-20); CALCIUM 9.3 mg/dl (8.5-10.1); CARBON DIOXIDE 32 mmol/L (21-32); CHLORIDE 105 mmol/L (98-107); CREATININE 0.91 mg/dl (0.60-1.20); GLUCOSE 180 mg/dl (70-99); POTASSIUM 3.8 mmol/L (3.5-5.1); SODIUM 141 mmol/L (136-145)
--- NOTE | 2017-01-08 13:45 | DIAGNOSTIC IMAGING REPORT ---
SINGLE VIEW CHEST CLINICAL HISTORY: Dyspnea. FINDINGS: An AP, portable, upright chest radiograph is compared to study dated 11/04/2016. The examination is degraded by portable technique and apical lordotic positioning. The heart is enlarged and there is atherosclerotic calcification of the thoracic aorta. The pulmonary vasculature is noncongested. Chronic interstitial thickening is unchanged. No airspace consolidation, large pleural effusion, or pneumothorax is seen. The skeletal structures are osteopenic. Degenerative change is noted in the shoulders and thoracic spine. IMPRESSION: Cardiomegaly with no acute cardiopulmonary abnormality. Electronically signed by: Tee Terry M.D. 01/08/2017 1:44 PM Dictated Date/Time: 01/08/2017 1:43 PM
[2017-01-08 13:49] LABS: ALB/GLOB RATIO 1.1 (0.9-2); ALKALINE PHOSPHATASE 106 U/L (45-117); CKMB/CK RATIO 1.7 (0-3.0)
--- NOTE | 2017-01-08 15:28 | EMERGENCY ROOM VISIT NOTE ---
History Report prepared by Bianka: Jennifer Koenig Under the Supervision of: Dr. Lane Carvajal D.O. First contact with patient: 12:55 Chief Complaint: SHORTNESS OF BREATH Stated Complaint: DIFFICULTY BREATHING Nursing Triage Summary: PT PRESENTS FROM HOME VIA ALS C/O DIFFICULTY BREATHING AND PAIN WHEN COUGHING INTO THE LEFT SIDE OF HER CHEST RADIATING TO HER BACK. PT HAS A HX OF COPD, WEARS 2L 02 NC CHRONIC. History of Present Illness The patient is a 71 year old female who presents to the Emergency Room with complaints of a persistent, dry, nonproductive cough that began two weeks ago. The patient states that she has had this persistent cough, and states that she notices chest pain when coughing. She states that the pain radiates into her back. The patient states that her home health nurses listened to her lungs and couldn't hear air movement in her lower lobes. She states that she quit smoking five years ago. The patient states that she chronically wears 2 liters of supplemental nasal cannula oxygen. Source of History: patient Onset: two weeks ago Position: other (global) Quality: other (cough, dry nonproductive) Timing: other (persistent) Associated Symptoms: + back pain, + chest pain Review of Systems See HPI for pertinent positives & negatives. A total of 10 systems reviewed and were otherwise negative. Past Medical & Surgical Medical Problems: (1) Acid reflux (2) CHF (congestive heart failure) (3) COPD (chronic obstructive pulmonary disease) (4) Hypoxia (5) Meningitis (6) Ovarian cancer Family History No pertient family history secondary to age Social History Smoking Status: Former Smoker Alcohol Use: none Drug Use: none Housing Status: lives with family Occupation Status: retired Current/Historical Medications Scheduled Calcium Carbonate-Cholecalcife (Oyster Shell Calcium + D), 1 TAB PO QAM Clonazepam (Clonazepam), 0.5 MG PO NOON Fluticasone Propionate (Nasal) (Flonase Allergy Relief), 1 SPRAY NANCY DAILY Furosemide (Furosemide), 40 MG PO QAM Gabapentin (Neurontin), 300 MG PO BID Levothyroxine Sodium (Synthroid), 25 MCG PO QAM Magnesium Oxide (Magnesium-Oxide), 400 MG PO BID Meloxicam (Meloxicam), 7.5 MG PO BID Metformin Hcl (Glucophage), 1 TAB PO BID Mirtazapine (Remeron), 45 MG PO HS Mometasone Furoate-Formoterol (Dulera 200/5 Mcg), 1 PUFF INH BID Montelukast Sodium (Singulair), 10 MG PO HS Multiple Vitamins W/ Iron (Multi Vitamin with Iron), 1 TAB PO QAM Potassium Chloride (Klor-Con M20), 20 MEQ PO BID Quetiapine Fumarate (Seroquel), 400 MG PO HS Ranitidine HCl (Ranitidine HCl), 150 MG PO BID Rivaroxaban (Xarelto), 20 MG PO DAILY Roflumilast (Daliresp), 500 MCG PO DAILY Tiotropium [place] (Spiriva Handihaler), 1 CAP INH DAILY Warfarin Sodium (Warfarin Sodium), 1.5 TAB PO QAM [Phel 24 Er], 400 MG PO QAM Scheduled PRN Albuterol Sulf (Albuterol Sulfate), 2.5 MG INH Q4H PRN for sob/wheezing Allergies Coded Allergies: Rabies Vaccine (Unverified Allergy, Severe, HIVES, 01/08/17) Ragweed (Unverified Allergy, Unknown, UNKNOWN, 01/08/17) Tomato (Unverified Allergy, Unknown, HIVES, 01/08/17) Physical Exam Vital Signs Date Time Temp Pulse Resp B/P Pulse Ox O2 Delivery O2 Flow Rate FiO2 01/08/17 14:43 86 20 133/100 97 Nasal Cannula 2.0 01/08/17 13:12 100 Nasal Cannula 2.0 01/08/17 12:24 90 Room Air 01/08/17 12:24 90 Room Air 01/08/17 12:24 36.8 84 18 132/74 90 Room Air 01/08/17 12:23 83 Physical Exam CONSTITUTIONAL/VITAL SIGNS: Reviewed / noted above. GENERAL: Non-toxic in appearance. INTEGUMENTARY: Warm, dry, and [place]. HEAD: Normocephalic. EYES: without scleral icterus or trauma. ENT/OROPHARYNX: clear and moist. LYMPHADENOPATHY/NECK: Is supple without lymphadenopathy or meningismus. RESPIRATORY: Scattered expiratory wheezes, diminished breath sounds. CARDIOVASCULAR: Regular rate and rhythm. GI/ABDOMEN: Soft and nontender. No organomegaly or pulsatile mass. No rebound or guarding. Normal bowel sounds. EXTREMITIES: Warm and well perfused. BACK: No CVA tenderness. NEUROLOGICAL: Intact without focal deficits. PSYCHIATRIC: normal affect. MUSCULOSKELETAL: Normally developed with good muscle tone. Medical Decision & Procedures ER Provider Diagnostic Interpretation: X ray results and stated below per my interpretation and radiology interpretation. SINGLE VIEW CHEST CLINICAL HISTORY: Dyspnea. FINDINGS: An AP, portable, upright chest radiograph is compared to study dated 11/04/2016. The examination is degraded by portable technique and apical lordotic positioning. The heart is enlarged and there is atherosclerotic calcification of the thoracic aorta. The pulmonary vasculature is noncongested. Chronic interstitial thickening is unchanged. No airspace consolidation, large pleural effusion, or pneumothorax is seen. The skeletal structures are osteopenic. Degenerative change is noted in the shoulders and thoracic spine. IMPRESSION: Cardiomegaly with no acute cardiopulmonary abnormality. Electronically signed by: Tee Terry M.D. 01/08/2017 1:44 PM Dictated Date/Time: 01/08/2017 1:43 PM Laboratory Results 01/08/17 12:10 Red Blood Count 4.29, Mean Corpuscular Volume 81.1, Mean Corpuscular Hemoglobin 24.7, Mean Corpuscular Hemoglobin Concent 30.5, Mean Platelet Volume 9.1, Neutrophils (%) (Auto) 59.3, Lymphocytes (%) (Auto) 22.8, Monocytes (%) (Auto) 8.9, Eosinophils (%) (Auto) 8.4, Basophils (%) (Auto) 0.5, Neutrophils # (Auto) 4.44, Lymphocytes # (Auto) 1.71, Monocytes # (Auto) 0.67, Eosinophils # (Auto) 0.63, Basophils # (Auto) 0.04 01/08/17 12:10 Test 01/08/17 12:10 White Blood Count 7.50 K/uL (4.8-10.8) Red Blood Count 4.29 M/uL (4.2-5.4) Hemoglobin 10.6 g/dL (12.0-16.0) Hematocrit 34.8 % (37-47) Mean Corpuscular Volume 81.1 fL (80-100) Mean Corpuscular Hemoglobin 24.7 pg (25-34) Mean Corpuscular Hemoglobin Concent 30.5 g/dl (32-36) Platelet Count 371 K/uL (130-400) Mean Platelet Volume 9.1 fL (7.4-10.4) Neutrophils (%) (Auto) 59.3 % Lymphocytes (%) (Auto) 22.8 % Monocytes (%) (Auto) 8.9 % Eosinophils (%) (Auto) 8.4 % Basophils (%) (Auto) 0.5 % Neutrophils # (Auto) 4.44 K/uL (1.4-6.5) Lymphocytes # (Auto) 1.71 K/uL (1.2-3.4) Monocytes # (Auto) 0.67 K/uL (0.11-0.59) Eosinophils # (Auto) 0.63 K/uL (0-0.5) Basophils # (Auto) 0.04 K/uL (0-0.2) RDW Standard Deviation 58.7 fL (36.4-46.3) RDW Coefficient of Variation 19.6 % (11.5-14.5) Immature Granulocyte % (Auto) 0.1 % Immature Granulocyte # (Auto) 0.01 K/uL (0.00-0.02) Anion Gap 4.0 mmol/L (3-11) Est Creatinine Clear Calc Drug Dose 56.4 ml/min Estimated GFR () 73.1 Estimated GFR (Non- 63.0 BUN/Creatinine Ratio 15.4 (10-20) Calcium Level 9.3 mg/dl (8.5-10.1) Total Bilirubin 0.2 mg/dl (0.2-1) Aspartate Amino Transf (AST/SGOT) 18 U/L (15-37) Alanine Aminotransferase (ALT/SGPT) 27 U/L (12-78) Alkaline Phosphatase 106 U/L (45-117) Total Creatine Kinase 145 U/L (26-192) Creatine Kinase MB 2.4 ng/ml (0.5-3.6) Creatine Kinase MB Ratio 1.7 (0-3.0) Troponin I < 0.015 ng/ml (0-0.045) Total Protein 7.0 gm/dl (6.4-8.2) Albumin 3.6 gm/dl (3.4-5.0) Globulin 3.4 gm/dl (2.5-4.0) Albumin/Globulin Ratio 1.1 (0.9-2) Laboratory results as stated above per my review. Medications Administered Medications (Trade) Dose Ordered Sig/Lulú Route Start Time Stop Time Status Last Admin Dose Admin Albuterol/ Ipratropium (Duoneb) 3 ml NOW STAT INH 01/08/17 13:01 01/08/17 13:06 DC 01/08/17 13:01 3 ML ECG Indication: chest pain Rate (beats per minute): 83 Rhythm: normal sinus Findings: no acute ischemic change, no ectopy ED Course 1256: Previous medical records were reviewed. The patient was evaluated in room B12B. A complete history and physical examination was performed. 1301: Ordered DuoNeb 3 ml INH. 1528: I reevaluated the patient and she is resting comfortably. I discussed the exam findings with her and I discussed the treatment plan. She verbalized complete understanding and agreement. She is ready to go home. Medical Decision The differential was considered includes acute myocardial infarction, acute coronary syndrome, myocarditis, pericarditis, pericardial effusions /tamponad, esophageal perforation, pulmonary embolism, pneumonia, pneumothorax, cardiomyopathy, congestive heart, anemia , COPD/asthma exacerbation. This is a 71-year-old female who presents to the ED with a chief complaint of shortness of breath. The patient has had a cough for the past couple of weeks. Her cough is dry. She denies any other significant symptoms. Her physical exam was noted above. Lungs revealed some scattered wheezes. EKG shows a normal sinus rhythm. CBC and complete metabolic panel are unremarkable. Troponin is negative. Chest x-ray was negative for acute disease. The patient was treated with DuoNeb treatment. Her symptoms are likely related to bronchitis and her chronic COPD. She is felt to be stable for discharge. Recommended continue with inhalers. She was not started on steroids as her symptoms appear to be relatively minor and she is diabetic. Impression Primary Impression: COPD exacerbation Scribe Attestation The scribe's documentation has been prepared under my direction and personally reviewed by me in its entirety. I confirm that the note above accurately reflects all work, treatment, procedures, and medical decision making performed by me. Departure Information Dispostion Home / Self-Care Forms HOME CARE DOCUMENTATION FORM, IMPORTANT VISIT INFORMATION Patient Instructions My [facility] Additional Instructions Follow-up with your doctor for further care and evaluation in 1-2 days. Return to the emergency department for worsening or new symptoms or any concerns. You have been examined and treated today on an emergency basis only. This is not a substitute for, or an effort to provide, complete comprehensive medical care. It is impossible to recognize and treat all injuries or illnesses in a single emergency department visit. It is therefore important that you follow up closely with your doctor. Call as soon as possible for an appointment.
[2017-01-08 15:43] VITALS: BP 133/100; PULSE 102; O2SAT 93
[2017-04-18] MEDS ORDERED: PRED20TA PO (12:33)
[2017-04-18] MEDS ORDERED: LVQ500 PO (12:33)
[2017-05-12] MEDS ORDERED: PLMINS INH ×2 (11:58→16:39)
[2017-05-12] MEDS ORDERED: ARFO15NE INH ×2 (11:58→16:39)
[2017-06-20] MEDS ORDERED: PRD20 PO (13:07)
[2017-07-29] MEDS ORDERED: PRED10TA PO (16:10)
[2017-07-29] MEDS ORDERED: DXY100 PO (16:10)
== END 2017-01-08 16:01 | disposition home or self-care (01) ==
LOC: EDBD 12:18 → C.EDB 12:20
DX: J44.1 Chronic obstructive pulmonary disease with (acute) exacerbation (principal); Z87.891 Personal history of nicotine dependence; Z99.81 Dependence on supplemental oxygen; K21.9 Gastro-esophageal reflux disease without esophagitis; I50.9 Heart failure, unspecified; Z79.01 Long term (current) use of anticoagulants; Z79.899 Other long term (current) drug therapy

== ENCOUNTER 2017-04-15 12:47 | Inpatient (IN) | payer OTHER ==
[~2017-04-15] VITALS: Ht 160 cm; Wt 84.6 kg
[~2017-04-15 12:47] MED LIST changes: -AZIT250T PO; -IPRASOL4 INH; +PHEL PO; +WARF4TAB44 PO
--- NOTE | 2017-04-15 12:49 | EMERGENCY ROOM VISIT NOTE ---
History Report prepared by Bianka: Dawood White Under the Supervision of: Dr. Haja Vilchis M.D. First contact with patient: 12:48 Chief Complaint: SHORTNESS OF BREATH Stated Complaint: SHORTNESS OF BREATH History of Present Illness The patient is a 71 year old female with a history of CHF, COPD, and PE who presents to the Emergency Room via EMS with complaints of worsening shortness of breath that started a week ago. She says that she was trying to hold off coming to the ED, but the shortness of breath has persisted, no matter what she is doing. The patient notes that she "cannot breathe". She says that she normally uses 2 liters of oxygen at home, and occasionally increases it to 3 liters. The patient is currently on 5 liters. She adds that her legs and ankles are more swollen, and she has been having a productive cough with brown sputum. The patient has been having fevers, chills, and sweating as well. She denies any chest pain or abdominal pain. She notes that she normally does not get short of breath with walking at her baseline. 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 The patient says that she has been taking her inhalers more frequently over the past week. She has not had any recent long car trips or plane travel. She has not had any recent surgeries. The patient is an ex-smoker. Source of History: patient Onset: A week ago Position: other (global - sob) Symptom Intensity: "cannot breathe" Timing: worsening Associated Symptoms: + fevers, + chills, + diaphoresis, + cough, No chest pain, No abdominal pain Note: Associated symptoms: Legs and ankles more swollen than usual. Review of Systems See HPI for pertinent positives and negatives. A total of ten systems were reviewed and were otherwise negative. Past Medical & Surgical Medical Problems: (1) Acid reflux (2) Acute respiratory failure with hypoxia (3) CHF (congestive heart failure) (4) COPD (chronic obstructive pulmonary disease) (5) Hypoxia (6) Meningitis (7) Ovarian cancer Family History No pertient family history secondary to age Social History Smoking Status: Former Smoker Alcohol Use: none Drug Use: none Housing Status: lives with family Occupation Status: retired Current/Historical Medications Scheduled Calcium Carbonate-Cholecalcife (Oyster Shell Calcium + D), 1 TAB PO QAM Cholecalciferol (Vitamin D 400 Iu), 400 INTER.UNIT PO QAM Fluticasone Propionate (Nasal) (Flonase Allergy Relief), 1 SPRAY NANCY DAILY Furosemide (Lasix), 40 MG PO QAM Levothyroxine Sodium (Synthroid), 25 MCG PO QAM Meloxicam (Meloxicam), 7.5 MG PO BID Metformin Hcl (Glucophage), 1,000 MG PO BID Mirtazapine (Remeron), 45 MG PO HS Mometasone Furoate-Formoterol (Dulera 200/5 Mcg), 1 PUFF INH BID Montelukast Sodium (Singulair), 10 MG PO HS Multiple Vitamins W/ Iron (Multi Vitamin with Iron), 1 TAB PO QAM Nortriptyline (Pamelor), 10 MG PO HS Potassium Chloride (Klor-Con M20), 20 MEQ PO BID Quetiapine Fumarate (Seroquel), 400 MG PO HS Ranitidine Hcl (Zantac), 150 MG PO BID Rivaroxaban (Xarelto), 20 MG PO QAM Theophylline (Rohit-24), 1 CAP PO QAM Tiotropium [place] (Spiriva Handihaler), 1 CAP INH DAILY Scheduled PRN Albuterol Sulf (Albuterol Sulfate), 2.5 MG INH Q4H PRN for sob/wheezing Clonazepam (Clonazepam), 0.5 MG PO Q12H PRN for Anxiety/Agitation Allergies Coded Allergies: Rabies Vaccine (Unverified Allergy, Severe, HIVES, 04/15/17) Ragweed (Unverified Allergy, Unknown, UNKNOWN, 04/15/17) Tomato (Unverified Allergy, Unknown, HIVES, 04/15/17) Physical Exam Vital Signs Date Time Temp Pulse Resp B/P (MAP) Pulse Ox O2 Delivery O2 Flow Rate FiO2 04/15/17 13:47 80 20 100 04/15/17 13:31 75 16 99 Nasal Cannula 3.0 04/15/17 13:17 74 19 98 04/15/17 13:16 99 Nasal Cannula 3.0 04/15/17 13:16 73 04/15/17 13:03 99 Nasal Cannula 3.0 04/15/17 13:02 36.8 90 24 95/74 99 Nasal Cannula 3.0 04/15/17 12:51 95/74 Physical Exam GENERAL: Awake, alert, mildly anxious. HENT: Edentulous. Normocephalic, atraumatic. Oropharynx unremarkable. EYES: Normal conjunctiva. Sclera non-icteric. NECK: Supple. No nuchal rigidity. FROM. No JVD. RESPIRATORY: Diffuse wheezing throughout, mild crackles, no rhonchi. CARDIAC: Regular rate, normal rhythm. Extremities warm and well perfused. Pulses equal. ABDOMEN: Soft, non-distended. No tenderness to palpation. No rebound or guarding. No masses. RECTAL: Deferred. MUSCULOSKELETAL: Chest examination reveals no tenderness. The back is symmetrical on inspection without obvious abnormality. There is no CVA tenderness to palpation. No joint edema. LOWER EXTREMITIES: Trace lower extremity edema. Calves are equal size bilaterally and non-tender. No discoloration. NEURO: Normal sensorium. No sensory or motor deficits noted. SKIN: No rash or jaundice noted. Medical Decision & Procedures ER Provider Diagnostic Interpretation: X-ray: Per my interpretation, radiologist review. CHEST ONE VIEW PORTABLE CLINICAL HISTORY: COPD EXACERBATION SHORTNESS OF BREATH COMPARISON STUDY: 01/08/2017 FINDINGS: The cardiac and mediastinal contours are normal. There is no evidence of focal pulmonary consolidation. There is no evidence of failure. No pleural effusions are visualized.[ The patient is mildly hyperinflated. IMPRESSION: No active disease in the chest. Electronically signed by: Hang Moses M.D. 04/15/2017 1:54 PM Dictated Date/Time: 04/15/2017 1:50 PM Laboratory Results 04/15/17 13:29 Red Blood Count 4.06, Mean Corpuscular Volume 83.3, Mean Corpuscular Hemoglobin 24.9, Mean Corpuscular Hemoglobin Concent 29.9, Mean Platelet Volume 8.6, Neutrophils (%) (Auto) 56.0, Lymphocytes (%) (Auto) 27.4, Monocytes (%) (Auto) 9.2, Eosinophils (%) (Auto) 6.6, Basophils (%) (Auto) 0.6, Neutrophils # (Auto) 3.63, Lymphocytes # (Auto) 1.78, Monocytes # (Auto) 0.60, Eosinophils # (Auto) 0.43, Basophils # (Auto) 0.04 04/15/17 13:29 Test 04/15/17 13:29 8/2/17 14:32 White Blood Count 6.49 K/uL (4.8-10.8) Red Blood Count 4.06 M/uL (4.2-5.4) Hemoglobin 10.1 g/dL (12.0-16.0) Hematocrit 33.8 % (37-47) Mean Corpuscular Volume 83.3 fL (80-100) Mean Corpuscular Hemoglobin 24.9 pg (25-34) Mean Corpuscular Hemoglobin Concent 29.9 g/dl (32-36) Platelet Count 368 K/uL (130-400) Mean Platelet Volume 8.6 fL (7.4-10.4) Neutrophils (%) (Auto) 56.0 % Lymphocytes (%) (Auto) 27.4 % Monocytes (%) (Auto) 9.2 % Eosinophils (%) (Auto) 6.6 % Basophils (%) (Auto) 0.6 % Neutrophils # (Auto) 3.63 K/uL (1.4-6.5) Lymphocytes # (Auto) 1.78 K/uL (1.2-3.4) Monocytes # (Auto) 0.60 K/uL (0.11-0.59) Eosinophils # (Auto) 0.43 K/uL (0-0.5) Basophils # (Auto) 0.04 K/uL (0-0.2) RDW Standard Deviation 49.2 fL (36.4-46.3) RDW Coefficient of Variation 16.2 % (11.5-14.5) Immature Granulocyte % (Auto) 0.2 % Immature Granulocyte # (Auto) 0.01 K/uL (0.00-0.02) Venous Blood pH 7.40 (7.36-7.41) Anion Gap 6.0 mmol/L (3-11) Est Creatinine Clear Calc Drug Dose 56.8 ml/min Estimated GFR () 71.2 Estimated GFR (Non- 61.4 BUN/Creatinine Ratio 14.5 (10-20) Lactic Acid Level 2.5 mmol/L (0.4-2.0) Calcium Level 9.2 mg/dl (8.5-10.1) Magnesium Level 1.9 mg/dl (1.8-2.4) Arterial Blood pH 7.39 (7.35-7.45) Arterial Blood Partial Pressure CO2 45 mmHg (35-46) Arterial Blood Partial Pressure O2 97 mm/Hg (80-95) Arterial Blood HCO3 27 mmol/L (19-24) Arterial Blood Oxygen Saturation 97.2 % (90-95) Arterial Blood Base Excess 1.5 mEq/L (-9-1.8) Arterial Blood Gas Delivery 3 L Rickie Test POS (POS) Laboratory results reviewed by me Medications Administered Medications (Trade) Dose Ordered Sig/Lulú Route Start Time Stop Time Status Last Admin Dose Admin Albuterol/ Ipratropium (Duoneb) 12 ml ONE ONCE INH 04/15/17 13:15 04/15/17 13:16 DC 04/15/17 13:31 12 ML Methylprednisolone Sodium Succinate (Solu-Medrol IV) 125 mg NOW STAT IV 04/15/17 13:04 04/15/17 13:10 DC 04/15/17 13:24 125 MG Azithromycin 500 mg/Dextrose 255 ml @ 125 mls/hr ONE ONCE IV 04/15/17 13:15 04/15/17 15:17 DC 04/15/17 13:30 125 MLS/HR Magnesium Sulfate (Magnesium Sulfate) 1 gm NOW STAT IV 04/15/17 13:04 04/15/17 13:10 DC 04/15/17 13:24 1 GM Sodium Chloride 500 ml @ 500 mls/hr Q1H IV 04/15/17 14:15 05/15/17 14:14 04/15/17 14:15 500 MLS/HR ECG Indication: SOB/dyspnea Rate (beats per minute): 74 Rhythm: normal sinus Findings: other (normal [place] and QRS intervals, normal axis, difficult interpretation of lead 3, potential Q wave, no other ST or T wave abnormalities) ED Course 1254: The patient was evaluated in room B12B. A complete history and physical exam was performed. 1304: Ordered Magnesium Sulfate 1 gm IV, Solu-Medrol IV 125 mg IV. 1314: I reviewed the patient's echo from September 2016. She had a normal LVEF of 65. 1315: Ordered Azithromycin 500 mg/Dextrose 255 ml @ 125 mls/hr IV, Duoneb 12 ml INH. 1415: Ordered NSS 500 ml @ 500 mls/hr IV. 1425: I reevaluated the patient and she walked to the bathroom without any problems. 1457: I reevaluated the patient and she is resting. The patient verbally expressed understanding and agreement of the treatment plan. The patient will be evaluated for further treatment. 1500: [facility] He will evaluate the patient for further treatment. Medical Decision Differential diagnosis includes but is not limited to: COPD exacerbation, ACS, CHF, pneumonia, anemia, allergic reaction, PE. 71-year-old white female with past medical history of COPD and question of CHF presents with a chief complaint of shortness of breath. Shortness of breath ongoing 1 week with a mild productive cough. Short of breath is indiscriminate as it is present even at rest. It is worsened when she lays flat or if she exerts herself. Patient denies any chest pain. Patient's exam is consistent with a COPD exacerbation. Upon further review of the EMR patient had a normal echocardiogram in September of this past year. Patient does not appear volume overloaded on exam. Patient was given duo nebs, mag, steroids, and azithromycin. After her treatments patient was further reassessed but still had significant wheezing and was unable to participate in basic ADLs becoming tachypneic and mildly tachycardic. EKG NSR when obtained. CXR clear per rads. Given the aforementioned and in addition to her living on her own, I spoke with the hospitalist service who agreed that it was in the patient's best interest to remain in-house for at least an observation period for COPD exacerbation. Medication Reconcilliation Current Medication List: was personally reviewed by me Blood Pressure Screening Patient's blood pressure: Normal blood pressure Consults Time Called: 1499 Consulting Physician[facility] Returned Call: -- [facility] was [facility]. He will evaluate the patient for further treatment. Impression Primary Impression: Acute exacerbation of chronic obstructive pulmonary disease Additional Impression: Hypoxia Scribe Attestation The scribe's documentation has been prepared under my direction and personally reviewed by me in its entirety. I confirm that the note above accurately reflects all work, treatment, procedures, and medical decision making performed by me. Departure Information Dispostion Being Evaluated By Hospitalist Referrals Owen Lucas MD (PCP) Patient Instructions My [facility] Problem Qualifiers
[2017-04-15] MEDS ORDERED: MAGNESIUM SULFATE 1GM / D5W 1 GM BAG IV STA (13:04)
[2017-04-15] MEDS ORDERED: METHYLPREDNISOLONE 125 MG VIAL IV STA (13:04)
[2017-04-15] MEDS ORDERED: THEO1CAP4 PO (13:12)
[2017-04-15] MEDS ORDERED: AZITHROMYCIN IV 500 MG in DEXTROSE 5% 250ML 250 ML IV ONE (13:15)
[2017-04-15] MEDS ORDERED: ALBUT/IPRATROP 3MG/0.5MG NEB 3 ML VIAL INH ONE (13:15)
[2017-04-15] MEDS ORDERED: NORT10CA2 PO (13:20)
[2017-04-15] MEDS ORDERED: CHOL400C7 PO (13:21)
[2017-04-15 13:31] VITALS: PULSE 75; O2SAT 99
[2017-04-15 13:53] LABS: BASO % 0.6 %; BASO ABS # 0.04 K/uL (0-0.2); COMPLETE YES; EOS % 6.6 %; HEMATOCRIT 33.8 % (37-47); IG% 0.2 %; LYMPH % 27.4 %; LYMPH ABS # 1.78 K/uL (1.2-3.4); MEAN CELL VOLUME 83.3 fL (80-100); MEAN CORPUSCULAR HEMOGLOBIN 24.9 pg (25-34); MEAN CORPUSCULAR HGB CONC 29.9 g/dl (32-36); MEAN PLATELET VOLUME 8.6 fL (7.4-10.4); MONO % 9.2 %; PLATELET COUNT 368 K/uL (130-400); RED BLOOD COUNT 4.06 M/uL (4.2-5.4); WHITE BLOOD COUNT 6.49 K/uL (4.8-10.8)
--- NOTE | 2017-04-15 13:55 | DIAGNOSTIC IMAGING REPORT ---
CHEST ONE VIEW PORTABLE CLINICAL HISTORY: COPD EXACERBATION SHORTNESS OF BREATH COMPARISON STUDY: 01/08/2017 FINDINGS: The cardiac and mediastinal contours are normal. There is no evidence of focal pulmonary consolidation. There is no evidence of failure. No pleural effusions are visualized.[ The patient is mildly hyperinflated. IMPRESSION: No active disease in the chest. Electronically signed by: Hang Moses M.D. 04/15/2017 1:54 PM Dictated Date/Time: 04/15/2017 1:50 PM
[2017-04-15 14:13] LABS: BUN/CREATININE RATIO 14.5 (10-20); CALCIUM 9.2 mg/dl (8.5-10.1); CREATININE 0.93 mg/dl (0.60-1.20)
[2017-04-15] MEDS: SODIUM CHLORIDE 0.9% 500ML 500 ML IV SCH ×2 (14:15→18:02)
[2017-04-15] MEDS ORDERED: FURO40TA3 PO (14:25)
[2017-04-15] MEDS ORDERED: RANI150T3 PO (14:25)
[2017-04-15] MEDS ORDERED: RIVA1TAB4 PO (14:25)
[2017-04-15] MEDS ORDERED: METF-384 PO (14:25)
[2017-04-15 14:55] LABS: ARTERIAL BLD GAS O2 SATURATION 97.2 % (90-95); ARTERIAL BLOOD GAS BASE EXCESS 1.5 mEq/L (-9-1.8); ARTERIAL BLOOD GAS HCO3 27 mmol/L (19-24); ARTERIAL BLOOD GAS PO2 97 mm/Hg (80-95); ARTERIAL BLOOD GAS pH 7.39 (7.35-7.45)
[2017-04-15 14:59] LABS: ALLEN TEST POS (POS); O2 ADMINISTRATION 3 L
[2017-04-15 15:42] LABS: ALKALINE PHOSPHATASE 84 U/L (45-117); ALT/SGPT 26 U/L (12-78); AST/SGOT 17 U/L (15-37)
[2017-04-15] MEDS ORDERED: CLONAZEPAM 0.5 MG TAB PO PRN (15:45)
[2017-04-15] MEDS ORDERED: ACETAMINOPHEN 325 MG TAB PO PRN (15:45)
[2017-04-15] MEDS ORDERED: DEXTROSE 50% 50 ML SYR IV PRN (15:45)
[2017-04-15] MEDS ORDERED: GLUCAGON FOR INJ 1 MG VIAL SQ PRN (15:45)
[2017-04-15] MEDS ORDERED: ONDANSETRON INJ 2 MG/ML 2 ML VIAL IV PRN (15:45)
[2017-04-15] MEDS ORDERED: GLUCOSE 40% GEL 15 GM TUBE PO PRN (15:45)
[2017-04-15] MEDS ORDERED: NITROGLYCERIN 0.4 MG SL PER TAB CHARGE SL PRN (15:45)
[2017-04-15] MEDS ORDERED: GLUCOSE 10 TABS/TUBE PO PRN (15:45)
--- NOTE | 2017-04-15 15:59 | History and Physical ---
History & Physical Date & Time of Service: Apr 15, 2017 at 15:47 Chief Complaint: Shortness Of Breath Primary Care Physician: Owen Lucas MD History of Present Illness Source: patient, hospital records The patient is a 71-year-old female with a past history of CHF, pulmonary embolism, 2 L oxygen dependent COPD, who presents emergency department with worsening shortness of breath over the past week. She has been using her inhalers more frequently interval time, and feels that there is congestion in her lungs as cough anything up. She continues to have a cough but remains dry. She also reports fevers, chills, sweats, and has increased her oxygen at home from 2 L at baseline to 5 years now. 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 She has not had any recent travels. She does have a history of sick exposures to people in the [facility] where she lives. Past Medical/Surgical History Medical Problems: (1) Acid reflux Status: Chronic (2) CHF (congestive heart failure) Status: Chronic (3) COPD (chronic obstructive pulmonary disease) Status: Chronic (4) Meningitis Status: Resolved (5) Ovarian cancer Status: Resolved Family History No pertient family history secondary to age Social History Smoking Status: Former Smoker Smokeless Tobacco Use: No Alcohol Use: none Drug Use: none Housing status: lives with family Occupational Status: retired Immunizations History of Influenza Vaccine: Yes History of Tetanus Vaccine?: Yes History of Pneumococcal: Yes History of Hepatitis B Vaccine: Unknown Multi-Drug Resistant Organisms History of MDRO: No Allergies Coded Allergies: Rabies Vaccine (Unverified Allergy, Severe, HIVES, 04/15/17) Ragweed (Unverified Allergy, Unknown, UNKNOWN, 04/15/17) Tomato (Unverified Allergy, Unknown, HIVES, 04/15/17) Home Medications Scheduled Calcium Carbonate-Cholecalcife (Oyster Shell Calcium + D), 1 TAB PO QAM Cholecalciferol (Vitamin D 400 Iu), 400 INTER.UNIT PO QAM Fluticasone Propionate (Nasal) (Flonase Allergy Relief), 1 SPRAY NANCY DAILY Furosemide (Lasix), 40 MG PO QAM Levothyroxine Sodium (Synthroid), 25 MCG PO QAM Meloxicam (Meloxicam), 7.5 MG PO BID Metformin Hcl (Glucophage), 1,000 MG PO BID Mirtazapine (Remeron), 45 MG PO HS Mometasone Furoate-Formoterol (Dulera 200/5 Mcg), 1 PUFF INH BID Montelukast Sodium (Singulair), 10 MG PO HS Multiple Vitamins W/ Iron (Multi Vitamin with Iron), 1 TAB PO QAM Nortriptyline (Pamelor), 10 MG PO HS Potassium Chloride (Klor-Con M20), 20 MEQ PO BID Quetiapine Fumarate (Seroquel), 400 MG PO HS Ranitidine Hcl (Zantac), 150 MG PO BID Rivaroxaban (Xarelto), 20 MG PO QAM Theophylline (Rohit-24), 1 CAP PO QAM Tiotropium [place] (Spiriva Handihaler), 1 CAP INH DAILY Scheduled PRN Albuterol Sulf (Albuterol Sulfate), 2.5 MG INH Q4H PRN for sob/wheezing Clonazepam (Clonazepam), 0.5 MG PO Q12H PRN for Anxiety/Agitation Review of Systems The patient denies sore throat, fatigue, nausea, vomiting, abdominal pain, pelvic pain, blood in urine or stool, dysuria, urinary frequency or urgency, lightheadedness, dizziness, headache, memory loss, rash, abnormal bruising or bleeding, imbalance, focal or generalized weakness, numbness or tingling in arms or legs, arthralgias or myalgias, back or neck pain. The review of systems is otherwise negative other than for that already noted above, and at least 10 systems have been reviewed. Physical Exam Vital Signs Date Time Temp Pulse Resp B/P (MAP) Pulse Ox O2 Delivery O2 Flow Rate FiO2 04/15/17 15:37 94 23 119/59 100 04/15/17 15:22 93 15 99 04/15/17 15:07 95 18 99 04/15/17 14:37 92 19 04/15/17 14:29 125/62 04/15/17 14:22 91 18 100 04/15/17 14:07 81 17 99 04/15/17 13:52 81 17 100 04/15/17 13:47 80 20 100 04/15/17 13:31 75 16 99 Nasal Cannula 3.0 04/15/17 13:17 74 19 98 8/2/17 13:16 99 Nasal Cannula 3.0 04/15/17 13:16 73 04/15/17 13:03 99 Nasal Cannula 3.0 04/15/17 13:02 36.8 90 24 99 Nasal Cannula 3.0 04/15/17 12:51 The patient is awake, well-developed and adequately nourished, alert and oriented 3, normocephalic and atraumatic, lying in bed and in no acute distress. HEENT--PERRL, EOMI, mucous membranes and oropharynx dry. Neck--supple, no JVD or bruits, thyroid normal, trachea midline, no adenopathy. Heart--normal S1 and S2, no extra beats, no murmurs, rubs or gallops. Lungs--decreased breath sounds throughout, no respiratory distress, no accessory muscle use. Abdomen--normal bowel sounds and soft, nontender and nondistended, no hernias or masses, no organomegaly. Extremities--no cyanosis, clubbing or edema. There are good distal pulses b/l. Dermatologic--normal skin turgor, normal color, warm and dry, no abnormal lymph nodes, no rash. Neurologic--cranial nerves II through XII grossly intact. Rheumatologic--normal range of motion. Psychiatric--normal affect. Diagnostics Laboratory Results Results Past 24 Hours Test 04/15/17 13:29 04/15/17 14:32 Range/Units White Blood Count 6.49 4.8-10.8 K/uL Red Blood Count 4.06 4.2-5.4 M/uL Hemoglobin 10.1 12.0-16.0 g/dL Hematocrit 33.8 37-47 % Mean Corpuscular Volume 83.3 80-100 fL Mean Corpuscular Hemoglobin 24.9 25-34 pg Mean Corpuscular Hemoglobin Concent 29.9 32-36 g/dl Platelet Count 368 130-400 K/uL Mean Platelet Volume 8.6 7.4-10.4 fL Neutrophils (%) (Auto) 56.0 % Lymphocytes (%) (Auto) 27.4 % Monocytes (%) (Auto) 9.2 % Eosinophils (%) (Auto) 6.6 % Basophils (%) (Auto) 0.6 % Neutrophils # (Auto) 3.63 1.4-6.5 K/uL Lymphocytes # (Auto) 1.78 1.2-3.4 K/uL Monocytes # (Auto) 0.60 0.11-0.59 K/uL Eosinophils # (Auto) 0.43 0-0.5 K/uL Basophils # (Auto) 0.04 0-0.2 K/uL RDW Standard Deviation 49.2 36.4-46.3 fL RDW Coefficient of Variation 16.2 11.5-14.5 % Immature Granulocyte % (Auto) 0.2 % Immature Granulocyte # (Auto) 0.01 0.00-0.02 K/uL Venous Blood pH 7.40 7.36-7.41 Sodium Level 140 136-145 mmol/L Potassium Level 4.0 3.5-5.1 mmol/L Chloride Level 105 98-107 mmol/L Carbon Dioxide Level 29 21-32 mmol/L Anion Gap 6.0 3-11 mmol/L Blood Urea Nitrogen 14 7-18 mg/dl Creatinine 0.93 0.60-1.20 mg/dl Est Creatinine Clear Calc Drug Dose 56.8 ml/min Estimated GFR () 71.2 Estimated GFR (Non- 61.4 BUN/Creatinine Ratio 14.5 10-20 Random Glucose 166 70-99 mg/dl Lactic Acid Level 2.5 0.4-2.0 mmol/L Calcium Level 9.2 8.5-10.1 mg/dl Magnesium Level 1.9 1.8-2.4 mg/dl Total Bilirubin 0.3 0.2-1 mg/dl Direct Bilirubin < 0.1 0-0.2 mg/dl Aspartate Amino Transf (AST/SGOT) 17 15-37 U/L Alanine Aminotransferase (ALT/SGPT) 26 12-78 U/L Alkaline Phosphatase 84 45-117 U/L Total Protein 6.8 6.4-8.2 gm/dl Albumin 3.4 3.4-5.0 gm/dl Arterial Blood pH 7.39 7.35-7.45 Arterial Blood Partial Pressure CO2 45 35-46 mmHg Arterial Blood Partial Pressure O2 97 80-95 mm/Hg Arterial Blood HCO3 27 19-24 mmol/L Arterial Blood Oxygen Saturation 97.2 90-95 % Arterial Blood Base Excess 1.5 -9-1.8 mEq/L Arterial Blood Gas Delivery 3 L Rickie Test POS POS Diagnostic Radiology Patient Name: ROSA HASSAN Unit Number: [id number] Dictated: 04/15/[id number] Transcribed: 04/15/171349 ARG Printed Date/Time: [~ rep prt dt]/[~ rep prt tm] [~ rep ct labl] - [~ rep ct ivnm] [facility] Radiology Department [place] [id number] Dictated: 04/15/[id number] Transcribed: 04/15/17 135 ARG Printed Date/Time: [~ rep prt dt]/[~ rep prt tm] [~ rep ct labl] - [~ rep ct ivnm] CHEST ONE VIEW PORTABLE CLINICAL HISTORY: COPD EXACERBATION SHORTNESS OF BREATH COMPARISON STUDY: 01/08/2017 FINDINGS: The cardiac and mediastinal contours are normal. There is no evidence of focal pulmonary consolidation. There is no evidence of failure. No pleural effusions are visualized.[ The patient is mildly hyperinflated. IMPRESSION: No active disease in the chest. Electronically signed by: Hang Moses M.D. 04/15/2017 1:54 PM Dictated Date/Time: 04/15/2017 1:50 PM The status of this report is Signed. Draft = Not yet reviewed or approved by Radiologist. Signed = Reviewed and approved by Radiologist. <AttendingPhy></AttendingPhy> <FamilyPhy>Owen Lucas MD</FamilyPhy> < PrimaryPhy>Owen Lucas MD</PrimaryPhy> <UnitNumber>[id number]</UnitNumber> <VisitNumber>[id number]</VisitNumber> <PatientName>ROSA HASSAN</ PatientName> <DateOfBirth>1945</DateOfBirth> <Location>C.EDB</Location> < ServiceDate>04/15/17</ServiceDate> <MNE>ESINDI</MNE> <OrderingPhy>Haja Vilchis M.D.</OrderingPhy> <OrderingPhyMNE>f rep ord dr stern</OrderingPhyMNE> < DictatingPhyMNE>f rep dict dr stern</DictatingPhyMNE> <CCListMNE>f rep ct mne</ CCListMNE> <AdmittingPhyMNE>f pt admit dr stern</AdmittingPhyMNE> <AttendingPhyMNE >f pt attend dr stern</AttendingPhyMNE> <ConsultingPhyMNE>f pt consult dr stern</ConsultingPhyMNE> <FamilyPhyMNE>f pt fam dr stern</FamilyPhyMNE> <OtherPhyMNE>f pt other dr stern</OtherPhyMNE> < PrimaryPhyMNE>f pt prim care dr stern</PrimaryPhyMNE> <ReferringPhyMNE>f pt referring dr stern</ReferringPhyMNE> EKG EKG shows normal sinus rhythm at 74 bpm, no acute ST-T changes, and no change compared to 01/08/2017. Impression Assessment and Plan Acute respiratory failure with hypoxia secondary to acute on chronic exacerbation of COPD-- The patient will be admitted to telemetry for serial cardiac enzymes, cardiac rhythm monitoring and a 2-D echocardiogram with Dopplers. Place on Pulmicort Respules 0.5 mg inhaled twice a day. Xopenex/Atrovent nebulizer every 6 hours while awake and every 2 hours when necessary. Ceftriaxone 1 g IV daily and azithromycin 500 mg IV every 24 hours. Nasal cannula presently at 5 L of oxygen. Continue theophylline extended release 40 mg by mouth every morning, Singulair 10 mg by mouth at bedtime and Flonase nasal spray 1 spray each nostril daily. Hold Spiriva and Dulera. CHF--continue furosemide 40 mg by mouth every morning and Klor-Con 20 mEq by mouth twice a day. Pulmonary embolism history--continue Xarelto 20 mg by mouth every morning. Diabetes mellitus--hold metformin 1000 mg by mouth twice a day. Place on Accu- Cheks before meals and at bedtime with NovoLog coverage per scale. GERD--continue ranitidine 150 mg by mouth twice a day. Hypothyroidism--continue levothyroxine sodium at 25 g by mouth every morning. Anxiety/insomnia--continue mirtazapine 45 mg by mouth at bedtime, nortriptyline 10 mg by mouth at bedtime, and Seroquel 40 mg by mouth at bedtime. Level of Care Telemetry Advanced Directives Existing Advance Directive: No Existing Living Will: No Existing Power of Vending Machine Collector: No Resuscitation Status FULL RESUSCITATION VTE Prophylaxis VTE Risk Assessment Done? Y/N: Yes Risk Level: Moderate Given or contraindicated: Other Anticoagulation (Xarelto)
[2017-04-15] MEDS: POTASSIUM CHLORIDE 20 MEQ TABCR PO SCH (16:58)
[2017-04-15 17:02] VITALS: BP 124/73; PULSE 94; TEMP 36.6; Ht 160 cm; Wt 84.6 kg
[2017-04-15] MEDS ORDERED: CEFTRIAXONE SOD INJ 1 GM in DEXTROSE 5% ADD-VANTAGE 50ML 50 ML IV SCH (18:00)
[2017-04-15] MEDS: INSULIN ASPART 100 UNITS/ML 3 ML PEN SC SCH ×2 (18:06→20:44)
[2017-04-15] MEDS ORDERED: COUGH DROP (SUGAR FREE) LOZ 24 LOZ/1 BOX ONE (18:14)
[2017-04-15 19:18] VITALS: BP 143/82; PULSE 92; TEMP 36.6; O2SAT 96
[2017-04-15] MEDS: BUDESONIDE 0.5 MG/2 ML VIAL (PULMICORT) INH SCH (20:00)
[2017-04-15] MEDS: CALCIUM 600MG + VIT D 400 IU TAB PO SCH (20:36)
[2017-04-15] MEDS: NORTRIPTYLINE HCL 10 MG CAP PO SCH (20:37)
[2017-04-15] MEDS: MIRTAZAPINE TAB 15 MG TAB PO SCH (20:38)
[2017-04-15] MEDS: MONTELUKAST SOD 10 MG TAB PO SCH (20:38)
[2017-04-15] MEDS: QUETIAPINE FUMARATE 200 MG TAB PO SCH (20:38)
[2017-04-15] MEDS: RANITIDINE HCL 150 MG TAB PO SCH (20:39)
[2017-04-15 20:42] VITALS: PULSE 78; O2SAT 95
[2017-04-15] MEDS: IPRATROPIUM BROMIDE NEB SOLN 0.02% 2.5 ML VIAL INH SCH (20:42)
[2017-04-15] MEDS: LEVALBUTEROL 1.25MG/0.5ML NEB INH SCH (20:42)
[2017-04-15] MEDS ORDERED: LEVALBUTEROL/IPRATROPIUM NEB INH SCH (21:00)
[2017-04-15 23:10] VITALS: BP 120/74; PULSE 89; TEMP 37.1; O2SAT 95
[2017-04-16] VITALS (13 sets, daily range): BP systolic 104–122; BP diastolic 63–83; PULSE 73–102; TEMP 36.1–37.5; O2SAT 93–100
[2017-04-16] MEDS: LEVALBUTEROL 1.25MG/0.5ML NEB INH PRN ×2 (00:03→12:31)
[2017-04-16] MEDS: IPRATROPIUM BROMIDE NEB SOLN 0.02% 2.5 ML VIAL INH PRN ×2 (00:03→12:31)
[2017-04-16] MEDS: IPRATROPIUM BROMIDE NEB SOLN 0.02% 2.5 ML VIAL INH SCH ×5 (02:08→19:50)
[2017-04-16] MEDS: LEVALBUTEROL 1.25MG/0.5ML NEB INH SCH ×5 (02:08→19:50)
[2017-04-16] MEDS: LEVOTHYROXINE 25 MCG TAB PO SCH (06:00)
[2017-04-16 06:32] LABS: MEAN CELL VOLUME 83.3 fL (80-100); MEAN CORPUSCULAR HEMOGLOBIN 25.8 pg (25-34); MEAN PLATELET VOLUME 8.8 fL (7.4-10.4); PLATELET COUNT 358 K/uL (130-400); RED BLOOD COUNT 3.72 M/uL (4.2-5.4); WHITE BLOOD COUNT 9.64 K/uL (4.8-10.8)
[2017-04-16] MEDS: INSULIN ASPART 100 UNITS/ML 3 ML PEN SC SCH ×4 (07:00→20:23)
[2017-04-16 07:09] LABS: BASO % 0.2 %; BASO ABS # 0.02 K/uL (0-0.2); COMPLETE YES; EOS % 0.4 %; IG% 0.2 %; LYMPH % 19.4 %; LYMPH ABS # 1.87 K/uL (1.2-3.4); MONO % 11.4 %; NEUT % 68.4 %
[2017-04-16 07:13] LABS: BUN/CREATININE RATIO 17.6 (10-20); CREATININE 0.81 mg/dl (0.60-1.20); MAGNESIUM 2.3 mg/dl (1.8-2.4); POTASSIUM 4.1 mmol/L (3.5-5.1)
[2017-04-16] MEDS: RIVAROXABAN 20 MG TAB PO SCH (07:37)
[2017-04-16] MEDS: RANITIDINE HCL 150 MG TAB PO SCH ×2 (07:37→20:37)
[2017-04-16] MEDS: CEROVITE ADV FORMULA TAB PO SCH (07:37)
[2017-04-16] MEDS: THEOPHYLLINE 400MG CONTROLLED REL TAB PO SCH (07:37)
[2017-04-16] MEDS: CALCIUM 600MG + VIT D 400 IU TAB PO SCH ×2 (07:37→20:36)
[2017-04-16] MEDS: CHOLECALCIFEROL 400 INTER.UNIT TAB PO SCH (07:37)
[2017-04-16] MEDS: FUROSEMIDE 40 MG TAB PO SCH (07:38)
[2017-04-16] MEDS: FLUTICASONE PROPIONATE NA SPR 16 GM BTL NAE SCH (07:38)
[2017-04-16] MEDS: POTASSIUM CHLORIDE 20 MEQ TABCR PO SCH ×2 (07:38→17:25)
[2017-04-16] MEDS: BUDESONIDE 0.5 MG/2 ML VIAL (PULMICORT) INH SCH ×2 (07:45→19:50)
[2017-04-16] MEDS ORDERED: AZITHROMYCIN IV 500 MG in DEXTROSE 5% 250ML 250 ML IV SCH (08:00)
--- NOTE | 2017-04-16 08:13 | Clinical Documentation Query ---
HINA Cruz : CLINICAL DOCUMENTATION QUERY QUERY 1 OF 2 Patient is a 71 year old female admitted for treatment of acute hypoxemic respiratory failure. It is also noted that patient has a history of CHF, not otherwise specified. Please clarify as clinically appropriate. Thank you. In your clinical opinion is this patient being managed for: ( ) Chronic diastolic CHF ( ) Other explanation of clinical findings (Please Explain) ( ) Unable to determine (Please Define) ( ) Need to Discuss ( ) Not Agree The medical record reflects the following clinical findings, treatment, and risk factors. Clinical Indicators: As above Treatment: Telemetry, Lasix, I/O, daily weights, DAHA diet Risk Factors: Age, COPD QUERY 2 OF 2 Noted history of COPD and associated oxygen dependence. As appropriate, consider documentation as suggested below to capture this important clinical diagnosis and associated severity of illness In your clinical opinion is this patient being managed for: ( ) Chronic respiratory failure with hypoxia ( ) Other explanation of clinical findings (Please Explain) ( ) Unable to determine (Please Define) ( ) Need to Discuss ( ) Not Agree The medical record reflects the following clinical findings, treatment, and risk factors. Clinical Indicators: Continuous home O2 use Treatment: Ongoing provision of supplemental O2 Risk Factors: COPD Please clarify and document your clinical opinion in the progress notes and discharge summary. Terms such as "probable", "suspected", "likely", "questionable", "possible", or "still to be ruled out" are acceptable. IF IN AGREEMENT, YOU MUST DOCUMENT ABOVE DIAGNOSTIC STATEMENT IN DAILY PROGRESS NOTES AND DISCHARGE SUMMARY. This document is not part of the patient's record. Thank You, Kojo Horowitz RN [phone]
--- NOTE | 2017-04-16 13:59 | Hospitalist Progress Note ---
Hospitalist Progress Note Date of Service Apr 16, 2017. Subjective Pt evaluation today including: conversation w/ patient, physical exam, chart review, lab review, review of inpatient medication list Pain: None PO Intake: Tolerating PO diet Voiding: no voiding problems Patient reports feeling much better. She states that she still has some shortness of breath but that it is much better than yesterday. She also complains of a dry, non-productive cough and intermittent wheezing. She states she had nausea this morning but this has resolved. The patient denies fevers, chills, sweats, chest pain, palpitations, claudication, vomiting, abdominal pain , dysuria, hematuria, urinary retention, paralysis, weakness, numbness and tingling. Additional Comments: See HPI for pertinent positives and negatives. All other systems reviewed and negative. Objective Vital Signs Date Time Temp Pulse Resp B/P (MAP) Pulse Ox O2 Delivery O2 Flow Rate FiO2 04/16/17 12:31 98 20 94 Nasal Cannula 3.0 04/16/17 12:00 Nasal Cannula 3.0 04/16/17 11:09 36.8 75 18 104/68 (80) 100 3.0 04/16/17 08:00 Nasal Cannula 3.0 04/16/17 07:45 94 20 95 Nasal Cannula 3.0 04/16/17 07:42 36.1 89 18 117/69 (85) 95 4.0 04/16/17 06:22 102 24 93 Nasal Cannula 3.0 04/16/17 04:00 Nasal Cannula 2.0 04/16/17 03:10 36.7 73 20 109/63 (78) 96 3.0 04/16/17 02:08 92 18 96 Nasal Cannula 3.0 04/16/17 00:04 80 22 95 Nasal Cannula 3.0 04/16/17 00:01 Nasal Cannula 2.0 04/15/17 23:10 37.1 89 20 120/74 (89) 95 Nasal Cannula 4.0 04/15/17 20:42 78 18 95 Nasal Cannula 3.0 04/15/17 20:00 Nasal Cannula 2.0 04/15/17 19:18 36.6 92 24 143/82 (102) 96 Nasal Cannula 3.0 04/15/17 17:02 36.6 94 20 124/73 Nasal Cannula 04/15/17 17:02 90 23 139/62 96 Nasal Cannula 3.0 04/15/17 15:37 94 23 119/59 100 04/15/17 15:22 93 15 99 04/15/17 15:07 95 18 99 04/15/17 14:37 92 19 04/15/17 14:29 125/62 04/15/17 14:22 91 18 100 04/15/17 14:07 81 17 99 04/15/17 13:52 81 17 100 04/15/17 13:47 80 20 100 04/15/17 13:31 75 16 99 Nasal Cannula 3.0 04/15/17 13:17 74 19 98 04/15/17 13:16 99 Nasal Cannula 3.0 04/15/17 13:16 73 Physical Exam Notes: General appearance: +Obese. Well-developed, well-nourished, no apparent distress Head: Normocephalic, atraumatic Eyes: Normal inspection, PERRL, EOMI ENT: Normal ENT inspection, hearing grossly normal, pharynx normal Neck: Supple, no JVD, trachea midline Respiratory/Chest: +Diffuse wheezing. Normal breath sounds, no respiratory distress Cardiovascular: Regular rate & rhythm, no gallop, no murmur Abdomen/GI: Normal bowel sounds, non-tender, soft Extremities/Musculoskeletal: Normal inspection, no calf tenderness, no pedal edema Neurological/Psych: Alert, normal mood/affect, oriented x 3 Skin: Normal color, warm/dry, no rash Laboratory Results Last 24 Hours Test 04/15/17 13:29 04/15/17 14:32 04/15/17 16:56 04/15/17 20:21 White Blood Count 6.49 K/uL Red Blood Count 4.06 M/uL Hemoglobin 10.1 g/dL Hematocrit 33.8 % Mean Corpuscular Volume 83.3 fL Mean Corpuscular Hemoglobin 24.9 pg Mean Corpuscular Hemoglobin Concent 29.9 g/dl Platelet Count 368 K/uL Mean Platelet Volume 8.6 fL Neutrophils (%) (Auto) 56.0 % Lymphocytes (%) (Auto) 27.4 % Monocytes (%) (Auto) 9.2 % Eosinophils (%) (Auto) 6.6 % Basophils (%) (Auto) 0.6 % Neutrophils # (Auto) 3.63 K/uL Lymphocytes # (Auto) 1.78 K/uL Monocytes # (Auto) 0.60 K/uL Eosinophils # (Auto) 0.43 K/uL Basophils # (Auto) 0.04 K/uL RDW Standard Deviation 49.2 fL RDW Coefficient of Variation 16.2 % Immature Granulocyte % (Auto) 0.2 % Immature Granulocyte # (Auto) 0.01 K/uL Venous Blood pH 7.40 Sodium Level 140 mmol/L Potassium Level 4.0 mmol/L Chloride Level 105 mmol/L Carbon Dioxide Level 29 mmol/L Anion Gap 6.0 mmol/L Blood Urea Nitrogen 14 mg/dl Creatinine 0.93 mg/dl Est Creatinine Clear Calc Drug Dose 56.8 ml/min Estimated GFR () 71.2 Estimated GFR (Non- 61.4 BUN/Creatinine Ratio 14.5 Random Glucose 166 mg/dl Lactic Acid Level 2.5 mmol/L Calcium Level 9.2 mg/dl Magnesium Level 1.9 mg/dl Total Bilirubin 0.3 mg/dl Direct Bilirubin < 0.1 mg/dl Aspartate Amino Transf (AST/SGOT) 17 U/L Alanine Aminotransferase (ALT/SGPT) 26 U/L Alkaline Phosphatase 84 U/L Total Protein 6.8 gm/dl Albumin 3.4 gm/dl Arterial Blood pH 7.39 Arterial Blood Partial Pressure CO2 45 mmHg Arterial Blood Partial Pressure O2 97 mm/Hg Arterial Blood HCO3 27 mmol/L Arterial Blood Oxygen Saturation 97.2 % Arterial Blood Base Excess 1.5 mEq/L Arterial Blood Gas Delivery 3 L Rickie Test POS Bedside Glucose 169 mg/dl 232 mg/dl Test 04/16/17 06:09 04/16/17 06:36 04/16/17 11:24 White Blood Count 9.64 K/uL Red Blood Count 3.72 M/uL Hemoglobin 9.6 g/dL Hematocrit 31.0 % Mean Corpuscular Volume 83.3 fL Mean Corpuscular Hemoglobin 25.8 pg Mean Corpuscular Hemoglobin Concent 31.0 g/dl Platelet Count 358 K/uL Mean Platelet Volume 8.8 fL Neutrophils (%) (Auto) 68.4 % Lymphocytes (%) (Auto) 19.4 % Monocytes (%) (Auto) 11.4 % Eosinophils (%) (Auto) 0.4 % Basophils (%) (Auto) 0.2 % Neutrophils # (Auto) 6.59 K/uL Lymphocytes # (Auto) 1.87 K/uL Monocytes # (Auto) 1.10 K/uL Eosinophils # (Auto) 0.04 K/uL Basophils # (Auto) 0.02 K/uL RDW Standard Deviation 49.8 fL RDW Coefficient of Variation 16.3 % Immature Granulocyte % (Auto) 0.2 % Immature Granulocyte # (Auto) 0.02 K/uL Prothrombin Time 11.0 SECONDS Prothromb Time International Ratio 1.0 Activated Partial Thromboplast Time 26.6 SECONDS Partial Thromboplastin Ratio 1.0 Sodium Level 143 mmol/L Potassium Level 4.1 mmol/L Chloride Level 108 mmol/L Carbon Dioxide Level 33 mmol/L Anion Gap 2.0 mmol/L Blood Urea Nitrogen 14 mg/dl Creatinine 0.81 mg/dl Est Creatinine Clear Calc Drug Dose 65.0 ml/min Estimated GFR () 84.1 Estimated GFR (Non- 72.6 BUN/Creatinine Ratio 17.6 Random Glucose 142 mg/dl Calcium Level 9.0 mg/dl Magnesium Level 2.3 mg/dl Bedside Glucose 126 mg/dl 113 mg/dl Assessment and Plan 71 y/o female with a history of COPD on 2L O2 continuously, diastolic CHF, h/o PE, DM II, hypothyroidism, anxiety and depression, insomnia, and GERD who presented with worsening shortness of breath, fevers, chills and cough. Acute respiratory failure with hypoxia secondary to acute exacerbation of COPD-- improving -Admit to telemetry. No acute events overnight. Patient remained in sinus rhythm/sinus tachycardia with HR in 90s to low 100s -O2 by protocol. Pt had increased her oxygen up to 5L prior to arrival. Now 95 % on 3L. Baseline is 2L -D/C Rocephin and azithromycin -Switch to Levaquin 500 mg PO qd -Pt received loading dose Solu-Medrol on admission. Pt doing much better -Prednisone 40 mg PO BID taper over 8 days: 40 mg BID x 2 days, 40 mg qd x 2 days, 20 mg qd x 2 days, 10 mg qd x 2 days then stop -Continue Xopenex/Atrovent nebs QIDR and q2h prn SOB/wheezing -Continue Pulmicort 0.5 mg inhaled BID -Continue theophylline 400 mg PO qd, Singulair 10 mg PO qd and Flonase -Spiriva and Dulera held Chronic diastolic CHF--stable -Continue Lasix 40 mg PO qd and potassium supplement H/o PE -Continue Xarelto 20 mg PO qd DM II--last HgbA1c was 8.3 on 11/03/16 -Hold metformin -Insulin sliding scale -Check BSGs q ac and qhs -Recheck hgbA1c Hypothyroidism -Continue Synthroid 25 mcg PO qd Anxiety, depression, insomnia -Continue Remeron 45 mg PO qhs, nortriptyline 10 mg PO qhs and Seroquel 40 mg PO qhs GERD -Continue Zantac 150 mg PO BID DVT prophylaxis -Xarelto Code Status -Level I, FULL RESUSCITATION STATUS
[2017-04-16 17:39] LABS: ESTIMATED AVERAGE GLUCOSE 169 mg/dl; HA1C FLAG Normal (Normal)
[2017-04-16] MEDS: MIRTAZAPINE TAB 15 MG TAB PO SCH (20:36)
[2017-04-16] MEDS: NORTRIPTYLINE HCL 10 MG CAP PO SCH (20:36)
[2017-04-16] MEDS: MONTELUKAST SOD 10 MG TAB PO SCH (20:37)
[2017-04-16] MEDS: QUETIAPINE FUMARATE 200 MG TAB PO SCH (20:37)
[2017-04-17] VITALS (11 sets, daily range): BP systolic 110–131; BP diastolic 71–80; PULSE 91–115; TEMP 36.3–37; O2SAT 91–98
[2017-04-17] MEDS: IPRATROPIUM BROMIDE NEB SOLN 0.02% 2.5 ML VIAL INH SCH ×4 (03:01→20:02)
[2017-04-17] MEDS: LEVALBUTEROL 1.25MG/0.5ML NEB INH SCH ×4 (03:02→20:02)
[2017-04-17] MEDS: LEVOTHYROXINE 25 MCG TAB PO SCH (06:00)
[2017-04-17 07:23] LABS: BASO % 0.1 %; BASO ABS # 0.01 K/uL (0-0.2); COMPLETE YES; EOS % 0.1 %; HEMATOCRIT 33.2 % (37-47); IG% 0.2 %; LYMPH % 12.7 %; LYMPH ABS # 1.03 K/uL (1.2-3.4); MEAN CELL VOLUME 83.8 fL (80-100); MEAN CORPUSCULAR HEMOGLOBIN 26.3 pg (25-34); MEAN CORPUSCULAR HGB CONC 31.3 g/dl (32-36); MEAN PLATELET VOLUME 8.5 fL (7.4-10.4); MONO % 3.6 %; NEUT % 83.3 %; PLATELET COUNT 336 K/uL (130-400); RED BLOOD COUNT 3.96 M/uL (4.2-5.4)
[2017-04-17] MEDS: BUDESONIDE 0.5 MG/2 ML VIAL (PULMICORT) INH SCH ×2 (07:26→20:02)
[2017-04-17 07:33] LABS: PROTHROMBIN TIME (PATIENT) 10.7 SECONDS (9.0-12.0)
[2017-04-17 07:52] LABS: BUN/CREATININE RATIO 18.2 (10-20); CALCIUM 9.6 mg/dl (8.5-10.1); MAGNESIUM 2.1 mg/dl (1.8-2.4); POTASSIUM 4.6 mmol/L (3.5-5.1)
[2017-04-17] MEDS: INSULIN ASPART 100 UNITS/ML 3 ML PEN SC SCH ×4 (08:07→21:14)
[2017-04-17] MEDS: CHOLECALCIFEROL 400 INTER.UNIT TAB PO SCH (08:08)
[2017-04-17] MEDS: CEROVITE ADV FORMULA TAB PO SCH (08:08)
[2017-04-17] MEDS: RANITIDINE HCL 150 MG TAB PO SCH ×2 (08:08→21:07)
[2017-04-17] MEDS: LEVOFLOXACIN 500 MG TAB PO SCH (08:09)
[2017-04-17] MEDS: RIVAROXABAN 20 MG TAB PO SCH (08:09)
[2017-04-17] MEDS: FUROSEMIDE 40 MG TAB PO SCH (08:10)
[2017-04-17] MEDS: CALCIUM 600MG + VIT D 400 IU TAB PO SCH ×2 (08:10→21:16)
[2017-04-17] MEDS: THEOPHYLLINE 400MG CONTROLLED REL TAB PO SCH (08:10)
[2017-04-17] MEDS: POTASSIUM CHLORIDE 20 MEQ TABCR PO SCH ×2 (08:11→18:08)
[2017-04-17] MEDS: FLUTICASONE PROPIONATE NA SPR 16 GM BTL NAE SCH (08:12)
[2017-04-17] MEDS: IPRATROPIUM BROMIDE NEB SOLN 0.02% 2.5 ML VIAL INH PRN (10:48)
[2017-04-17] MEDS: LEVALBUTEROL 1.25MG/0.5ML NEB INH PRN (10:48)
--- NOTE | 2017-04-17 11:34 | Hospitalist Progress Note ---
Hospitalist Progress Note Date of Service Apr 17, 2017. Subjective Pt evaluation today including: conversation w/ patient, physical exam, chart review, lab review, review of inpatient medication list Pain: None PO Intake: Tolerating PO diet Voiding: no voiding problems Patient reports feeling slightly better today. She had just received a breathing treatment prior to my exam. She states that her shortness of breath is slightly improved today. She still complains of a cough that is sometimes productive and intermittent wheezing. She complains of dyspnea on exertion and states that while she was cleaning herself up in the bathroom she had to stop and sit down. She complains of fatigue. The patient denies fevers, chills, sweats, chest pain, palpitations, claudication, nausea, vomiting, abdominal pain , dysuria, hematuria, urinary retention, paralysis, weakness, numbness and tingling. Additional Comments: See HPI for pertinent positives and negatives. All other systems reviewed and negative. Objective Vital Signs Date Time Temp Pulse Resp B/P (MAP) Pulse Ox O2 Delivery O2 Flow Rate FiO2 04/17/17 11:10 37.0 115 22 131/80 (97) 96 2.0 04/17/17 10:50 111 20 94 Nasal Cannula 3.0 04/17/17 08:00 Nasal Cannula 2.0 04/17/17 07:51 36.8 96 20 111/74 (86) 91 3.0 04/17/17 07:35 101 16 93 Nasal Cannula 3.0 04/17/17 04:23 36.3 96 18 112/71 (85) 98 Nasal Cannula 3.5 04/17/17 04:00 Nasal Cannula 2.0 04/17/17 02:15 111 20 93 Nasal Cannula 3.0 04/17/17 00:01 Nasal Cannula 2.0 04/16/17 23:34 36.7 91 16 110/67 (81) 97 Nasal Cannula 3.5 04/16/17 20:00 Nasal Cannula 2.0 04/16/17 19:50 94 20 96 Nasal Cannula 3.0 04/16/17 19:21 37.5 84 20 108/69 (82) 96 Nasal Cannula 3.0 04/16/17 16:00 Nasal Cannula 3.0 04/16/17 15:29 36.7 78 20 122/83 (96) 98 Nasal Cannula 3.0 04/16/17 14:33 89 20 97 Nasal Cannula 3.0 04/16/17 12:31 98 20 94 Nasal Cannula 3.0 04/16/17 12:00 Nasal Cannula 3.0 Physical Exam Notes: General appearance: +Obese. Well-developed, well-nourished, no apparent distress Head: Normocephalic, atraumatic Eyes: Normal inspection, PERRL, EOMI ENT: Normal ENT inspection, hearing grossly normal, pharynx normal Neck: Supple, no JVD, trachea midline Respiratory/Chest: +Diffuse wheezing. Breath sounds more decreased compared to yesterday. Normal breath sounds, no respiratory distress Cardiovascular: Regular rate & rhythm, no gallop, no murmur Abdomen/GI: Normal bowel sounds, non-tender, soft Extremities/Musculoskeletal: Normal inspection, no calf tenderness, no pedal edema Neurological/Psych: Alert, normal mood/affect, oriented x 3 Skin: Normal color, warm/dry, no rash Laboratory Results Last 24 Hours Test 04/16/17 16:03 04/16/17 20:18 04/17/17 06:51 04/17/17 07:10 Bedside Glucose 86 mg/dl 150 mg/dl 215 mg/dl White Blood Count 8.10 K/uL Red Blood Count 3.96 M/uL Hemoglobin 10.4 g/dL Hematocrit 33.2 % Mean Corpuscular Volume 83.8 fL Mean Corpuscular Hemoglobin 26.3 pg Mean Corpuscular Hemoglobin Concent 31.3 g/dl Platelet Count 336 K/uL Mean Platelet Volume 8.5 fL Neutrophils (%) (Auto) 83.3 % Lymphocytes (%) (Auto) 12.7 % Monocytes (%) (Auto) 3.6 % Eosinophils (%) (Auto) 0.1 % Basophils (%) (Auto) 0.1 % Neutrophils # (Auto) 6.74 K/uL Lymphocytes # (Auto) 1.03 K/uL Monocytes # (Auto) 0.29 K/uL Eosinophils # (Auto) 0.01 K/uL Basophils # (Auto) 0.01 K/uL RDW Standard Deviation 50.2 fL RDW Coefficient of Variation 16.4 % Immature Granulocyte % (Auto) 0.2 % Immature Granulocyte # (Auto) 0.02 K/uL Prothrombin Time 10.7 SECONDS Prothromb Time International Ratio 1.0 Activated Partial Thromboplast Time 26.8 SECONDS Partial Thromboplastin Ratio 1.0 Sodium Level 139 mmol/L Potassium Level 4.6 mmol/L Chloride Level 106 mmol/L Carbon Dioxide Level 29 mmol/L Anion Gap 4.0 mmol/L Blood Urea Nitrogen 18 mg/dl Creatinine 1.00 mg/dl Est Creatinine Clear Calc Drug Dose 52.3 ml/min Estimated GFR () 65.2 Estimated GFR (Non- 56.2 BUN/Creatinine Ratio 18.2 Random Glucose 238 mg/dl Calcium Level 9.6 mg/dl Magnesium Level 2.1 mg/dl Assessment and Plan 71 y/o female with a history of COPD on 2L O2 continuously, diastolic CHF, h/o PE, DM II, hypothyroidism, anxiety and depression, insomnia, and GERD who presented with worsening shortness of breath, fevers, chills and cough. Acute respiratory failure with hypoxia secondary to acute exacerbation of COPD-- stable -Admit to telemetry. No acute events overnight. Patient remained in sinus tachycardia with HR in 90s-100s -EKG 04/17 shows 103 bpm, sinus tachycardia -O2 by protocol. Pt had increased her oxygen up to 5L prior to arrival. Now 94 % on 3L. Baseline is 2L -D/C Rocephin and azithromycin -Switch to Levaquin 500 mg PO qd. Day #3 of abx -Pt received loading dose Solu-Medrol on admission. Pt doing much better -Prednisone 40 mg PO BID taper over 8 days started 04/16: 40 mg BID x 1 more day , 40 mg qd x 2 days, 20 mg qd x 2 days, 10 mg qd x 2 days then stop -Continue Xopenex/Atrovent nebs QIDR and q2h prn SOB/wheezing -Continue Pulmicort 0.5 mg inhaled BID -Continue theophylline 400 mg PO qd, Singulair 10 mg PO qd and Flonase -Spiriva and Dulera held Chronic diastolic CHF--stable -Continue Lasix 40 mg PO qd and potassium supplement H/o PE -Continue Xarelto 20 mg PO qd DM II--last HgbA1c was 8.3 on 11/03/16 -Hold metformin -Insulin sliding scale -Check BSGs q ac and qhs -HgbA1c was 7.5 on 04/16 Hypothyroidism -Continue Synthroid 25 mcg PO qd Anxiety, depression, insomnia -Continue Remeron 45 mg PO qhs, nortriptyline 10 mg PO qhs and Seroquel 40 mg PO qhs GERD -Continue Zantac 150 mg PO BID DVT prophylaxis -Xarelto Code Status -Level I, FULL RESUSCITATION STATUS
[2017-04-17] MEDS ORDERED: COUGH DROP (SUGAR FREE) LOZ 24 LOZ/1 BOX ONE (12:55)
[2017-04-17] MEDS: MIRTAZAPINE TAB 15 MG TAB PO SCH (21:06)
[2017-04-17] MEDS: QUETIAPINE FUMARATE 200 MG TAB PO SCH (21:06)
[2017-04-17] MEDS: MONTELUKAST SOD 10 MG TAB PO SCH (21:07)
[2017-04-17] MEDS: NORTRIPTYLINE HCL 10 MG CAP PO SCH (21:07)
[2017-04-18] VITALS (9 sets, daily range): BP systolic 101–138; BP diastolic 63–84; PULSE 86–107; TEMP 36.6–36.7; O2SAT 94–100
[2017-04-18] MEDS ORDERED: LEVOFLOXACIN 500 MG TAB PO SCH
[2017-04-18] MEDS: IPRATROPIUM BROMIDE NEB SOLN 0.02% 2.5 ML VIAL INH PRN ×2 (01:08→05:10)
[2017-04-18] MEDS: LEVALBUTEROL 1.25MG/0.5ML NEB INH PRN ×2 (01:08→05:10)
[2017-04-18] MEDS: IPRATROPIUM BROMIDE NEB SOLN 0.02% 2.5 ML VIAL INH SCH ×3 (01:58→13:57)
[2017-04-18] MEDS: LEVALBUTEROL 1.25MG/0.5ML NEB INH SCH ×3 (01:59→13:56)
[2017-04-18] MEDS: LEVOTHYROXINE 25 MCG TAB PO SCH (06:21)
[2017-04-18 06:42] LABS: BASO % 0.1 %; BASO ABS # 0.01 K/uL (0-0.2); COMPLETE YES; HEMATOCRIT 35.6 % (37-47); IG% 0.2 %; LYMPH % 9.3 %; LYMPH ABS # 0.98 K/uL (1.2-3.4); MEAN CELL VOLUME 83.4 fL (80-100); MEAN CORPUSCULAR HEMOGLOBIN 24.8 pg (25-34); MEAN CORPUSCULAR HGB CONC 29.8 g/dl (32-36); MEAN PLATELET VOLUME 8.7 fL (7.4-10.4); MONO % 5.1 %; NEUT % 85.3 %; PLATELET COUNT 372 K/uL (130-400); RED BLOOD COUNT 4.27 M/uL (4.2-5.4)
[2017-04-18 06:50] LABS: PROTHROMBIN TIME (PATIENT) 10.7 SECONDS (9.0-12.0)
[2017-04-18 07:17] LABS: BUN/CREATININE RATIO 22.6 (10-20); CALCIUM 9.7 mg/dl (8.5-10.1); CREATININE 0.99 mg/dl (0.60-1.20); MAGNESIUM 2.3 mg/dl (1.8-2.4); POTASSIUM 4.5 mmol/L (3.5-5.1)
[2017-04-18] MEDS: BUDESONIDE 0.5 MG/2 ML VIAL (PULMICORT) INH SCH (07:21)
[2017-04-18] MEDS: CALCIUM 600MG + VIT D 400 IU TAB PO SCH (07:55)
[2017-04-18] MEDS: FLUTICASONE PROPIONATE NA SPR 16 GM BTL NAE SCH (07:55)
[2017-04-18] MEDS: THEOPHYLLINE 400MG CONTROLLED REL TAB PO SCH (07:56)
[2017-04-18] MEDS: POTASSIUM CHLORIDE 20 MEQ TABCR PO SCH (07:56)
[2017-04-18] MEDS: FUROSEMIDE 40 MG TAB PO SCH (07:56)
[2017-04-18] MEDS: CHOLECALCIFEROL 400 INTER.UNIT TAB PO SCH (07:56)
[2017-04-18] MEDS: RIVAROXABAN 20 MG TAB PO SCH (07:57)
[2017-04-18] MEDS: CEROVITE ADV FORMULA TAB PO SCH (07:57)
[2017-04-18] MEDS: RANITIDINE HCL 150 MG TAB PO SCH (07:57)
[2017-04-18] MEDS: LEVOFLOXACIN 500 MG TAB PO SCH (07:58)
[2017-04-18] MEDS: INSULIN ASPART 100 UNITS/ML 3 ML PEN SC SCH ×2 (08:00→11:47)
[2017-04-18] MEDS ORDERED: COUGH DROP (SUGAR FREE) LOZ 24 LOZ/1 BOX ONE (09:46)
[2017-04-18] MEDS ORDERED: NURSING DECISION MEDICATION ORDER SCH (10:00)
[2017-04-18] MEDS ORDERED: COUGH DROP (SUGAR FREE) LOZ 24 LOZ/1 BOX PO PRN (10:30)
[2017-04-18] MEDS ORDERED: LVQ500 PO (12:33)
[2017-04-18] MEDS ORDERED: PRED20TA PO (12:33)
--- NOTE | 2017-04-18 12:33 | Discharge Instructions ---
Discharge Instructions Date of Service Apr 18, 2017. Admission Reason for Admission: Acute Exacerbation Of Copd, Acute Resp Failure W/ Discharge Discharge Diagnosis / Problem: Acute respiratory failure with hypoxia secondary to copd exac Discharge Goals Goal(s): Decrease discomfort, Improve function, Increase independence, Improve disease control Activity Recommendations Activity Limitations: resume your previous activity (fall precaution) . Instructions / Follow-Up Instructions / Follow-Up you have Acute respiratory failure with hypoxia secondary to acute exacerbation of COPD You need to continue oxygen at home You have been on Levaquin 500 mg PO qd. we'll continue 4 days more I'm giving you tapering dose of oral prednisone - you need to follow up with your primary care physician in 1 week, - take medication as instructed, never overdose or any misuse, or take with alcohol, because misuse of medicine may cause organ damage or , call your primary care physician if have questions of medicaitons. - call your primary care physician OR go to local emergency room if has any fever/chill, chest pain, shortness of breathing, nausea/vomiting/abdominal pain , facial droop/slurry speech/local weakness, or if has any questions. - fall precaution - diet as instructed - you need to follow up with your subspecialist - you should understand that it is important to follow up the above instruction , and "not following the above instruction" may cause delayed or missed care of your medical conditions which may cause permanent organ damage and even . Current Hospital Diet Patient's current hospital diet: Diabetes Type 2 Diet, AHA Diet (Heart Healthy) Discharge Diet Recommended Diet: Diabetes Type 2 Diet Pending Studies Studies pending at discharge: no Laboratory Results Meds Administered (Past 24Hrs) Medications (Trade) Dose Ordered Sig/Lulú Route Start Time Stop Time Status Last Admin Dose Admin Prednisone (PredniSONE TAB) 40 mg BID PO 04/16/17 21:00 04/18/17 20:59 04/18/17 07:57 40 MG Levofloxacin (Levaquin Tab) 500 mg DAILY@11 PO 04/17/17 11:00 04/24/17 10:59 04/18/17 07:58 500 MG Menthol (Nice Kena) 24 kena STK-MED ONCE .ROUTE 04/17/17 12:55 04/17/17 12:56 DC 04/17/17 12:55 24 KENA Menthol (Nice Kena) 24 kena STK-MED ONCE .ROUTE 04/18/17 09:46 04/18/17 09:47 DC 04/18/17 09:49 24 KENA Hemoglobin A1c Test 04/16/17 06:09 Range/Units Estimated Average Glucose 169 mg/dl Hemoglobin A1c 7.5 H 4.5-5.6 % Medical Emergencies . Who to Call and When: Medical Emergencies: If at any time you feel your situation is an emergency, please call 911 immediately. . Non-Emergent Contact Non-Emergency issues call your: Primary Care Provider . . "Provider Documentation" section prepared by Juan Gupta. . VTE Core Measure Inpt VTE Proph given/why not?: Other Anticoagulation (Xarelto)
--- NOTE | 2017-04-18 12:45 | Discharge Summary ---
Discharge Summary Date of Service Apr 18, 2017. Discharge Summary Admission Date: Apr 15, 2017 at 15:22 Discharge Date: Apr 18, 2017 Discharge Disposition: Home with services Principal Diagnosis: Acute respiratory failure with hypoxia secondary to acute exacerbation of C Problems/Secondary Diagnoses: Hyperglycemia secondary to steroid use diastolic CHF--stable History of pulmonary embolization Uncontrolled diabetic A1c 7.5 Immunizations: Have You Had Influenza Vaccine: Yes History of Tetanus Vaccine?: Yes History of Pneumococcal: Yes History of Hepatitis B Vaccine: Unknown Consultations: No Medication Reconciliation New Medications: Prednisone (Prednisone) 20 Mg Tab 0 PO DAILY, #14 3 TABS DAILY FOR 2 DAYS, THEN 2 TABS DAILY FOR 2 DAYS, THEN 1 TAB DAILY FOR 2 DAYS, THEN 1/2 TAB DAILY FOR 2 DAYS. Levofloxacin (Levofloxacin) 500 Mg Tab 500 MG PO DAILY@11 for 4 Days, TAB Continued Medications: Albuterol Sulf (Albuterol Sulfate) 2.5 Mg/3 Ml Nebu 2.5 MG INH Q4H PRN for sob/wheezing, #60 UNITS Calcium Carbonate-Cholecalcife (Oyster Shell Calcium + D) 1 Tab Tab 1 TAB PO QAM Cholecalciferol (Vitamin D 400 Iu) 400 Unit Cap 400 INTER.UNIT PO QAM Clonazepam (Clonazepam) 0.5 Mg Tab 0.5 MG PO Q12H PRN for Anxiety/Agitation Fluticasone Propionate (Nasal) (Flonase Allergy Relief) 50 Mcg/Act Spr 1 SPRAY NANCY DAILY Furosemide (Lasix) 40 Mg Tab 40 MG PO QAM, TAB Levothyroxine Sodium (Synthroid) 25 Mcg Tab 25 MCG PO QAM Meloxicam (Meloxicam) 7.5 Mg Tab 7.5 MG PO BID Metformin Hcl (Glucophage) 1,000 Mg Tab 1000 MG PO BID, TAB Mirtazapine (Remeron) 45 Mg Tab 45 MG PO HS Mometasone Furoate-Formoterol (Dulera 200/5 Mcg) 1 Aer Aer 1 PUFF INH BID Montelukast Sodium (Singulair) 10 Mg Tab 10 MG PO HS Multiple Vitamins W/ Iron (Multi Vitamin with Iron) 1 Tab Tab 1 TAB PO QAM Nortriptyline (Pamelor) 10 Mg Cap 10 MG PO HS Potassium Chloride (Klor-Con M20) 20 Meq Tabcr 20 MEQ PO BID Quetiapine Fumarate (Seroquel) 400 Mg Tab 400 MG PO HS Ranitidine Hcl (Zantac) 150 Mg Tab 150 MG PO BID, TAB Rivaroxaban (Xarelto) 20 Mg Tab 20 MG PO QAM, TAB Theophylline (Rohit-24) 400 Mg Capcr 1 CAP PO QAM Tiotropium [place] (Spiriva Handihaler) 30 Puff/540 Mcg Aerp 1 CAP INH DAILY Discharge Exam Sitting up in chair, reported feeling better, reported difficulty breathing is in her baseline, no chest pain, Blood glucose is high around 200 Review of Systems: Constitutional: No fever, No chills, No sweats, No weight loss, No weakness , No fatigue, No problem reported Eyes: No worsening of vision, No eye pain, No redness, No discharge, No diplopia, No problem reported ENT: No hearing loss, No unusual epistaxis, No nasal symptoms, No sore throat, No tinnitus, No dental problems, No trouble swallowing, No problem reported Respiratory: + cough Cardiovascular: No chest pain, No orthopnea, No PND, No edema, No claudication, No palpitations, No problem reported Abdomen: No pain, No nausea, No vomiting, No diarrhea, No constipation, No GI bleeding, No problem reported Musculoskeletal: No joint pain, No muscle pain, No swelling, No calf pain, No problem reported Genitourinary - Female: No dysuria, No urinary frequency, No urinary urgency , No urinary incontinence, No urinary retention, No hematuria, No dysmenorrhea, No menorrhagia, No metrorrhagia, No rash, No vaginal bleeding, No vaginal discharge, No vaginal itching, No vulvodynia, No , No problem reported Neurologic: No memory loss, No paralysis, No weakness, No numbness/tingling , No vertigo, No balance problems, No problem reported Psychiatric: No depression symptoms, No anhedonism, No anxiety, No insomnia , No substance abuse, No problem reported Endocrine: No fatigue, No excessive thirst, No excessive urination, No problem reported Hematologic / Lymphatic: No abnormal bleeding/bruising, No clotting problems , No swollen lymph nodes, No night sweats, No problem reported Physical Exam: General Appearance: WD/WN, + obese Eyes: normal inspection, PERRL ENT: normal ENT inspection, hearing grossly normal Neck: supple, no adenopathy Respiratory/Chest: chest non-tender, normal breath sounds, + decreased breath sounds Cardiovascular: regular rate, rhythm, no edema, no gallop, no JVD Abdomen / GI: normal bowel sounds, no organomegaly, no pulsatile mass Extremities: normal inspection, no calf tenderness, normal capillary refill , no pedal edema, normal range of motion Neurologic/Psychiatric: cloth opener hand II-XII nml as tested, no motor/sensory deficits , alert, normal mood/affect, normal reflexes, oriented x 3 Skin: normal color, warm/dry Lymphatic: no adenopathy Hospital Course 71 y/o female with a history of COPD on 2L O2 continuously, diastolic CHF, h/o PE, DM II, hypothyroidism, anxiety and depression, insomnia, and GERD who presented with worsening shortness of breath, fevers, chills and cough. Acute respiratory failure with hypoxia secondary to acute exacerbation of COPD stable/improving -was admited to telemetry. No acute events overnight. Patient remained in sinus tachycardia with HR in 90s-100s -EKG 04/17 shows 103 bpm, sinus tachycardia -O2 by protocol. Pt had increased her oxygen up to 5L prior to arrival. Is approaching to baseline, Baseline is 2L -D/C Rocephin and azithromycin -Switch to Levaquin 500 mg PO qd. Day #3 of abx, will continue 4 days -Pt received loading dose Solu-Medrol on admission. Will continue tapering upon discharge -Continue Xopenex/Atrovent nebs QIDR and q2h prn SOB/wheezing -Continue Pulmicort 0.5 mg inhaled BID -Continue theophylline 400 mg PO qd, Singulair 10 mg PO qd and Flonase -Spiriva and Dulera held, will restarted upon discharge Chronic diastolic CHF--stable -Continue Lasix 40 mg PO qd and potassium supplement H/o PE, stable -Continue Xarelto 20 mg PO qd DM II--last HgbA1c was 8.3 on 11/03/16 -Hold metformin -Insulin sliding scale -Check BSGs q ac and qhs -HgbA1c was 7.5 on 04/16 - Breaux patient blood glucose may be elevated when is on steroid Hypothyroidism -Continue Synthroid 25 mcg PO qd Anxiety, depression, insomnia -Continue Remeron 45 mg PO qhs, nortriptyline 10 mg PO qhs and Seroquel 40 mg PO qhs GERD -Continue Zantac 150 mg PO BID DVT prophylaxis -Xarelto Code Status -Level I, FULL RESUSCITATION STATUS Patient discharged home in a stable condition Discharge instruction you have Acute respiratory failure with hypoxia secondary to acute exacerbation of COPD You need to continue oxygen at home You have been on Levaquin 500 mg PO qd. we'll continue 4 days more I'm giving you tapering dose of oral prednisone - you need to follow up with your primary care physician in 1 week, - take medication as instructed, never overdose or any misuse, or take with alcohol, because misuse of medicine may cause organ damage or , call your primary care physician if have questions of medicaitons. - call your primary care physician OR go to local emergency room if has any fever/chill, chest pain, shortness of breathing, nausea/vomiting/abdominal pain , facial droop/slurry speech/local weakness, or if has any questions. - fall precaution - diet as instructed - you need to follow up with your subspecialist - you should understand that it is important to follow up the above instruction , and "not following the above instruction" may cause delayed or missed care of your medical conditions which may cause permanent organ damage and even . Total Time Spent: Greater than 30 minutes This includes examination of the patient, discharge planning, medication reconciliation, and communication with other providers. Discharge Instructions Please refer to the electronic Patient Visit Report (Discharge Instructions) for additional information. Additional Copies To Owen Lucas MD
[2017-04-18] MEDS ORDERED: NURSING VERBAL MED ORDER ONE ×2 (13:00→13:30)
[2017-06-20] MEDS ORDERED: PRD20 PO (13:07)
== END 2017-04-18 14:11 | disposition home health service (06) | DRG 189 ==
LOC: EDBD 12:47 → C.EDB 12:48 → C.2T 15:22 → ENRESERV 15:40
PROVIDERS: ADMIT Hospitalist; ATTEND Hospitalist
DX: J96.01 Acute respiratory failure with hypoxia (principal); J44.1 Chronic obstructive pulmonary disease with (acute) exacerbation; I50.32 Chronic diastolic (congestive) heart failure; K21.9 Gastro-esophageal reflux disease without esophagitis; E11.65 Type 2 diabetes mellitus with hyperglycemia; E03.9 Hypothyroidism, unspecified; F41.9 Anxiety disorder, unspecified; G47.00 Insomnia, unspecified; F32.9 Major depressive disorder, single episode, unspecified; T38.0X5A Adverse effect of glucocorticoids and synthetic analogues, initial encounter; Z79.01 Long term (current) use of anticoagulants; Z79.84 Long term (current) use of oral hypoglycemic drugs; Z79.899 Other long term (current) drug therapy; Z86.711 Personal history of pulmonary embolism; Z87.891 Personal history of nicotine dependence

== ENCOUNTER 2017-05-05 08:28 | Inpatient (IN) | payer OTHER ==
[~2017-05-05] VITALS: Ht 160 cm; Wt 89.0 kg
[~2017-05-05 08:28] MED LIST changes: +CHOL400C7 PO; -DLR500 PO; +FURO40TA3 PO; -GABA-113 PO; -LSX20 PO; +LVQ500 PO; +METF-384 PO; -METF1000 PO; -MGNO400 PO; +NORT10CA2 PO; -PHEL PO; +PRED20TA PO; +RANI150T3 PO; +RIVA1TAB4 PO; +THEO1CAP4 PO; -WARF4TAB44 PO; -XRL20 PO; -ZNT150 PO
[2017-05-05] MEDS ORDERED: ALBUT/IPRATROP 3MG/0.5MG NEB 3 ML VIAL INH STA (09:32)
[2017-05-05] MEDS ORDERED: METHYLPREDNISOLONE 125 MG VIAL IV STA (09:32)
[2017-05-05 09:45] LABS: BASO % 0.2 %; BASO ABS # 0.02 K/uL (0-0.2); COMPLETE YES; EOS % 3.3 %; HEMATOCRIT 31.6 % (37-47); IG% 0.3 %; LYMPH % 20.7 %; LYMPH ABS # 2.01 K/uL (1.2-3.4); MEAN CELL VOLUME 82.3 fL (80-100); MEAN CORPUSCULAR HEMOGLOBIN 26.3 pg (25-34); MEAN PLATELET VOLUME 8.8 fL (7.4-10.4); MONO % 7.9 %; NEUT % 67.6 %; PLATELET COUNT 317 K/uL (130-400); RED BLOOD COUNT 3.84 M/uL (4.2-5.4); WHITE BLOOD COUNT 9.72 K/uL (4.8-10.8)
[2017-05-05] MEDS ORDERED: LEVAQUIN 500MG / 100ML D5W IV ONE (09:45)
[2017-05-05 09:49] LABS: PARTIAL THROMBOPLASTIN RATIO 1.1; PROTHROMBIN TIME (PATIENT) 10.3 SECONDS (9.0-12.0)
[2017-05-05 09:52] LABS: ALT/SGPT 28 U/L (12-78); BLOOD UREA NITROGEN 13 mg/dl (7-18); BUN/CREATININE RATIO 15.4 (10-20); CALCIUM 8.7 mg/dl (8.5-10.1); CARBON DIOXIDE 29 mmol/L (21-32); CHLORIDE 104 mmol/L (98-107); CREATININE 0.85 mg/dl (0.60-1.20); GLUCOSE 195 mg/dl (70-99); POTASSIUM 4.2 mmol/L (3.5-5.1); SODIUM 140 mmol/L (136-145)
[2017-05-05 09:57] LABS: ALKALINE PHOSPHATASE 104 U/L (45-117); AST/SGOT 19 U/L (15-37)
--- NOTE | 2017-05-05 10:50 | DIAGNOSTIC IMAGING REPORT ---
CHEST 2 VIEWS ROUTINE CLINICAL HISTORY: 71 years-old Female presenting with EVALUATE RESPIRATORY DISTRESS.DYSPNEA. TECHNIQUE: Portable upright AP view of the chest was obtained. COMPARISON: 04/15/2017. FINDINGS: Cardiomediastinal silhouette normal. Lungs and pleural spaces clear. Osseous structures normal. Upper abdomen normal. IMPRESSION: 1. No acute cardiopulmonary disease. Electronically signed by: Callum Avila M.D. 05/05/2017 10:48 AM Dictated Date/Time: 05/05/2017 10:48 AM
[2017-05-05] MEDS ORDERED: ALBUTEROL 0.083% NEBU SOLN 3 ML VIAL INH STA (11:09)
[2017-05-05] MEDS ORDERED: ALBUT/IPRATROP 3MG/0.5MG NEB 3 ML VIAL INH SCH (12:15)
[2017-05-05 12:41] LABS: URINE APPEARANCE CLEAR (CLEAR); URINE BILIRUBIN NEG (NEG); URINE COLOR YELLOW; URINE NITRITE NEG (NEG); URINE SPECIFIC GRAVITY 1.012 (1.000-1.030); UROBILINOGEN NEG (NEG)
[2017-05-05 12:43] VITALS: BMI 34.8
[2017-05-05] MEDS ORDERED: MAGNESIUM HYDROXIDE SUSP 30 ML UDC PO PRN (12:45)
[2017-05-05] MEDS ORDERED: ONDANSETRON INJ 2 MG/ML 2 ML VIAL IV PRN (12:45)
[2017-05-05] MEDS ORDERED: ALUMINUM/MAGNESIUM/SIMETH (MAALOX MAX) 30 ML UDC PO PRN (12:45)
[2017-05-05] MEDS ORDERED: ACETAMINOPHEN 325 MG TAB PO PRN (12:45)
[2017-05-05] MEDS ORDERED: POLYETHYLENE (MIRALAX) 17 GM PACK PO PRN (12:45)
[2017-05-05 12:53] LABS: MANUAL MICROSCOPIC REQUIRED? NO; REVIEW REQ? NO
[2017-05-05] MEDS ORDERED: FUROSEMIDE 40 MG/4 ML VIAL IV STA (13:06)
--- NOTE | 2017-05-05 13:21 | History and Physical ---
History & Physical Date of Service May 05, 2017. History & Physical obs #[id number]
[2017-05-05] MEDS ORDERED: AZITHROMYCIN 250 MG TAB PO STA ×2 (13:39→15:49)
[2017-05-05] MEDS ORDERED: IV FLUIDS COMPLETED PRN (13:45)
[2017-05-05] MEDS ORDERED: METHYLPREDNISOLONE IV 80 MG in SYRINGE 0 ML IV SCH (14:00)
--- NOTE | 2017-05-05 14:11 | EMERGENCY ROOM VISIT NOTE ---
History Report prepared by Bianka: Raymond Zamudio Under the Supervision of: Cata BoltonO. First contact with patient: 09:22 Chief Complaint: SHORTNESS OF BREATH Stated Complaint: DIFFICULTY BREATHING Nursing Triage Summary: Patient reports she became SOB yesterday morning and again in the evening while shopping at [employer]. This morning her SOB increased. Duoneb given by EMS. Pt sates hx Emphysema, wears oxygen 2L NC at home. Pt reports cough, but no different than her usual cough. History of Present Illness The patient is a 71 year old female who presents to the Emergency Room with complaints of intermittent shortness of breath beginning a few weeks ago. She has a history of COPD, CHF, PE and emphysema. Her symptoms are usually worsened with movement. The patient has been using breathing treatments which typically improve her symptoms. She states that she has felt short of breath with any movement for the past several days. She has been seen by her PCP for her symptoms, and is scheduled to see her chief of staff doctor soon. The patient denies any new cough, abnormal leg swelling, chest pain, nausea, vomiting, or diarrhea. She also complains of "tightness" in her abdomen along with her shortness of breath. Her most recent steroid use was a few weeks ago. The patient is on Xarelto and hasn't missed any doses. Source of History: patient Onset: a few weeks ago Quality: other (shortness of breath) Timing: intermittent Modifying Factors (Worsening): movement Modifying Factors (Relieving): other (breathing treatment) Associated Symptoms: + abdominal pain ("tightness"), No cough, No chest pain , No nausea, No vomiting Note: The patient denies any abnormal leg swelling. Review of Systems See HPI for pertinent positives & negatives. A total of 10 systems reviewed and were otherwise negative. Past Medical & Surgical Medical Problems: (1) Acid reflux (2) Acute respiratory failure with hypoxia (3) CHF (congestive heart failure) (4) COPD (chronic obstructive pulmonary disease) (5) Hypoxia (6) Meningitis (7) Ovarian cancer Family History No pertient family history secondary to age Social History Smoking Status: Former Smoker Alcohol Use: none Drug Use: none Housing Status: lives with family Occupation Status: retired Current/Historical Medications Scheduled Calcium Carbonate-Cholecalcife (Oyster Shell Calcium + D), 1 TAB PO QAM Cholecalciferol (Vitamin D 400 Iu), 400 INTER.UNIT PO QAM Fluticasone Propionate (Nasal) (Flonase Allergy Relief), 1 SPRAY NANCY DAILY Furosemide (Lasix), 40 MG PO QAM Levofloxacin (Levofloxacin), 500 MG PO DAILY@11 Levothyroxine Sodium (Synthroid), 25 MCG PO QAM Meloxicam (Meloxicam), 7.5 MG PO BID Metformin Hcl (Glucophage), 1,000 MG PO BID Mirtazapine (Remeron), 45 MG PO HS Mometasone Furoate-Formoterol (Dulera 200/5 Mcg), 1 PUFF INH BID Montelukast Sodium (Singulair), 10 MG PO HS Multiple Vitamins W/ Iron (Multi Vitamin with Iron), 1 TAB PO QAM Nortriptyline (Pamelor), 10 MG PO HS Potassium Chloride (Klor-Con M20), 20 MEQ PO BID Prednisone (Prednisone), 0 PO DAILY Quetiapine Fumarate (Seroquel), 400 MG PO HS Ranitidine Hcl (Zantac), 150 MG PO BID Rivaroxaban (Xarelto), 20 MG PO QAM Theophylline (Rohit-24), 1 CAP PO QAM Tiotropium Gerald (Spiriva Handihaler), 1 CAP INH DAILY Scheduled PRN Albuterol Sulf (Albuterol Sulfate), 2.5 MG INH Q4H PRN for sob/wheezing Clonazepam (Clonazepam), 0.5 MG PO Q12H PRN for Anxiety/Agitation Allergies Coded Allergies: Rabies Vaccine (Verified Allergy, Severe, HIVES, 05/05/17) Ragweed (Verified Allergy, Unknown, UNKNOWN, 05/05/17) Tomato (Verified Allergy, Unknown, HIVES, 05/05/17) Physical Exam Vital Signs Date Time Temp Pulse Resp B/P (MAP) Pulse Ox O2 Delivery O2 Flow Rate FiO2 05/05/17 15:06 37.3 100 22 17783 98 05/05/17 14:40 100 22 177 98 Nasal Cannula 2.0 05/05/17 13:38 105 05/05/17 13:35 105 18 142/76 94 Nasal Cannula 2.0 05/05/17 12:43 Nasal Cannula 1.0 05/05/17 12:39 101 23 144/91 99 Nebulizer 5.0 05/05/17 12:16 86 Room Air 05/05/17 12:00 101 19 131/84 91 Nasal Cannula 05/05/17 11:30 102 24 154/103 95 Nasal Cannula 2.0 05/05/17 10:04 95 15 155/83 99 Nasal Cannula 2.0 05/05/17 09:42 37.3 92 20 155/89 98 Nasal Cannula 2.0 05/05/17 09:40 98 Nasal Cannula 2.0 05/05/17 08:48 99 05/05/17 08:30 94 Room Air 05/05/17 08:30 104 22 125/74 99 Nasal Cannula 2.0 05/05/17 08:30 99 Nasal Cannula 2.0 Physical Exam GENERAL: sitting up in bed, disheveled, chronically ill appearing. EYE EXAM: normal conjunctiva. OROPHARYNX: no exudate, no erythema, lips, buccal mucosa, and tongue normal and mucous membranes are moist NECK: supple, no nuchal rigidity, no adenopathy, non-tender, no JVD. LUNGS: Poor air movement with wheezing b/l. HEART: no murmurs, S1 normal and S2 normal ABDOMEN: abdomen soft, non-tender, normo-active bowel sounds, no masses, no rebound or guarding. BACK: Back is symmetrical on inspection and there is no deformity, no midline tenderness, no CVA tenderness. SKIN: no rashes and no bruising UPPER EXTREMITIES: upper extremities are grossly normal. LOWER EXTREMITIES: Calves are equal bilaterally. NEURO EXAM: Normal sensorium, cranial nerves II-XII grossly intact, normal speech, no gross weakness of arms, no gross weakness of legs. Medical Decision & Procedures ER Provider Diagnostic Interpretation: Radiology results as stated below per my review and the radiologist's interpretation: CHEST 2 VIEWS ROUTINE FINDINGS: Cardiomediastinal silhouette normal. Lungs and pleural spaces clear. Osseous structures normal. Upper abdomen normal. IMPRESSION: 1. No acute cardiopulmonary disease. Electronically signed by: Callum Avila M.D. Laboratory Results 05/05/17 08:10 Red Blood Count 3.84, Mean Corpuscular Volume 82.3, Mean Corpuscular Hemoglobin 26.3, Mean Corpuscular Hemoglobin Concent 32.0, Mean Platelet Volume 8.8, Neutrophils (%) (Auto) 67.6, Lymphocytes (%) (Auto) 20.7, Monocytes (%) (Auto) 7.9, Eosinophils (%) (Auto) 3.3, Basophils (%) (Auto) 0.2, Neutrophils # (Auto) 6.57, Lymphocytes # (Auto) 2.01, Monocytes # (Auto) 0.77, Eosinophils # (Auto) 0.32, Basophils # (Auto) 0.02 05/05/17 08:10 Test 05/05/17 08:10 05/05/17 11:22 05/05/17 11:33 White Blood Count 9.72 K/uL (4.8-10.8) Red Blood Count 3.84 M/uL (4.2-5.4) Hemoglobin 10.1 g/dL (12.0-16.0) Hematocrit 31.6 % (37-47) Mean Corpuscular Volume 82.3 fL (80-100) Mean Corpuscular Hemoglobin 26.3 pg (25-34) Mean Corpuscular Hemoglobin Concent 32.0 g/dl (32-36) Platelet Count 317 K/uL (130-400) Mean Platelet Volume 8.8 fL (7.4-10.4) Neutrophils (%) (Auto) 67.6 % Lymphocytes (%) (Auto) 20.7 % Monocytes (%) (Auto) 7.9 % Eosinophils (%) (Auto) 3.3 % Basophils (%) (Auto) 0.2 % Neutrophils # (Auto) 6.57 K/uL (1.4-6.5) Lymphocytes # (Auto) 2.01 K/uL (1.2-3.4) Monocytes # (Auto) 0.77 K/uL (0.11-0.59) Eosinophils # (Auto) 0.32 K/uL (0-0.5) Basophils # (Auto) 0.02 K/uL (0-0.2) RDW Standard Deviation 49.8 fL (36.4-46.3) RDW Coefficient of Variation 16.6 % (11.5-14.5) Immature Granulocyte % (Auto) 0.3 % Immature Granulocyte # (Auto) 0.03 K/uL (0.00-0.02) Prothrombin Time 10.3 SECONDS (9.0-12.0) Prothromb Time International Ratio 1.0 (0.9-1.1) Activated Partial Thromboplast Time 28.7 SECONDS (21.0-31.0) Partial Thromboplastin Ratio 1.1 Anion Gap 7.0 mmol/L (3-11) Est Creatinine Clear Calc Drug Dose 63.3 ml/min Estimated GFR () 79.3 Estimated GFR (Non- 68.5 BUN/Creatinine Ratio 15.4 (10-20) Calcium Level 8.7 mg/dl (8.5-10.1) Total Bilirubin 0.4 mg/dl (0.2-1) Aspartate Amino Transf (AST/SGOT) 19 U/L (15-37) Alanine Aminotransferase (ALT/SGPT) 28 U/L (12-78) Alkaline Phosphatase 104 U/L (45-117) Pro-B-Type Natriuretic Peptide 44 pg/ml (0-900) Total Protein 6.4 gm/dl (6.4-8.2) Albumin 3.2 gm/dl (3.4-5.0) Globulin 3.2 gm/dl (2.5-4.0) Albumin/Globulin Ratio 1.0 (0.9-2) Troponin I < 0.015 ng/ml (0-0.045) Urine Color YELLOW Urine Appearance CLEAR (CLEAR) Urine pH 7.0 (4.5-7.5) Urine Specific [place] 1.012 (1.000-1.030) Urine Protein NEG (NEG) Urine Glucose (UA) 1+ (NEG) Urine Ketones NEG (NEG) Urine Occult Blood NEG (NEG) Urine Nitrite NEG (NEG) Urine Bilirubin NEG (NEG) Urine Urobilinogen NEG (NEG) Urine Leukocyte Esterase NEG (NEG) Laboratory results per my review. Medications Administered Medications (Trade) Dose Ordered Sig/Lulú Route Start Time Stop Time Status Last Admin Dose Admin Albuterol/ Ipratropium (Duoneb) 3 ml NOW STAT INH 05/05/17 09:32 05/05/17 09:34 DC 05/05/17 09:32 3 ML Methylprednisolone Sodium Succinate (Solu-Medrol IV) 125 mg NOW STAT IV 05/05/17 09:32 05/05/17 09:34 DC 05/05/17 10:08 125 MG Levofloxacin (Levaquin / D5W) 500 mg NOW ONCE IV 05/05/17 09:45 05/05/17 09:46 DC 05/05/17 10:08 500 MG Albuterol Sulfate (Ventolin 0.083% 2.5MG/3ML Neb) 2.5 mg NOW STAT INH 05/05/17 11:09 05/05/17 11:10 DC 05/05/17 11:29 2.5 MG Albuterol/ Ipratropium (Duoneb) 3 ml NOW INH 05/05/17 12:15 06/04/17 12:14 05/05/17 12:34 3 ML ECG Indication: SOB/dyspnea Rate (beats per minute): 102 Rhythm: sinus tachycardia Findings: other (Normal axis. Normal intervals. ) ED Course ED COURSE: Vital signs were reviewed and showed tachycardia The patients medical record was reviewed The above diagnostic studies were performed and reviewed. ED treatments and interventions as stated above. 0925: The patient was evaluated in room B3B. A complete history and physical examination was performed. 0932: Ordered Solu-Medrol 125 mg IV, DuoNeb 3 mL INH. 0945: Ordered Levaquin / D5w 500 mg IV. 1107: I reassessed the patient. She is feeling better. 1109: Ordered Ventolin 0.083% 2.5 mg/3 mL Neb 2.5 mg INH. 1215: I spoke with the patient. She was able to ambulate to the bathroom. She still have wheezing in her bilateral lung max. Ordered DuoNeb 3 mL INH. 1235: Upon reevaluation, the patient is resting comfortably. I discussed my findings with the patient and she understands and agrees with the treatment plan. Based on the patients age, coexisting illnesses, exam and lab findings the decision to treat as an inpatient was made. The patient remained stable while under my care. The patient will be evaluated for further management. Medical Decision Differential diagnoses includes but is not limited to pneumonia, bronchitis, COPD/Asthma exacerbation, pneumothorax, pulmonary embolism, congestive heart failure, acute coronary syndrome Patient is a 71-year-old female who presents the ER for shortness breath which has been worsening over the past week. She notes she has a history of COPD. She also has a history of CHF and PEs on xlerto and has not missed any doses. Patient admits to a cough but that has not changed. She was recently here for same complaint previously. Symptoms are generally improved with the neb treatment. She was given 3 nebs in the ER along with 1 per EMS. She was placed on steroids and given Levaquin. Labs including CBC, BMP, LFTs, troponin 2 were unremarkable. UA was negative. Patient was ambulated and was unable to walk 5 sepsis bathroom without becoming tachycardic and dyspneic. She consequently was feeling worse and patient was admitted to internal medicine as she is not able to perform basic functions. Medication Reconcilliation Current Medication List: was personally reviewed by me Blood Pressure Screening Patient's blood pressure: Elevated blood pressure Blood pressure disposition: Elevated BP felt to be situational Consults Time Called: 1233 Consulting Physician: [place] [place]ed Call: 1234 I reviewed the patient's case with Dr. Osorio. [facility] for further management. Impression Primary Impression: COPD exacerbation Scribe Attestation The scribe's documentation has been prepared under my direction and personally reviewed by me in its entirety. I confirm that the note above accurately reflects all work, treatment, procedures, and medical decision making performed by me. Departure Information Dispostion Being Evaluated By Hospitalist Referrals Owen Lucas MD (PCP) Patient Instructions My [facility]
--- NOTE | 2017-05-05 14:39 | HISTORY & PHYSICAL EXAMINATION ---
DATE OF ADMISSION: 05/05/2017 CHIEF COMPLAINT: Shortness of breath. HISTORY OF PRESENT ILLNESS: The patient is a very pleasant 71-year-old female who was unfortunately just here up until about 2-3 weeks ago with what appeared to be a COPD exacerbation. She was discharged home. Notes that she was actually feeling better for several days and then about 2 weeks ago started to feel worse again with more shortness of breath. She initially just described it as feeling more short of breath but on directed questioning, she notes that it is predominantly when she goes to sleep at night, is predominantly an orthopnea kind of a pattern. She has paroxysmal nocturnal dyspnea and she has noted about 12 pounds of weight gain which she notes feels predominantly like fluid in her belly and in her legs. On further directed questioning, she has been trying to eat fairly healthy but unfortunately this has also entailed a decent amount of vegetable soup made with a commercial broth, to which she has also added a small amount of extra salt and she seemed unfortunately unaware of the connection between sodium intake and fluid retention. She does note feeling feverish, although she has not actually ever taken her temperature and she seems to describe this more as feeling flushed and hot. She relates that this along with some hot sweats happens right around the time that she is due for a nebulizer treatment. She notes that her nebulizer treatments do not necessarily really help with her shortness of breath but after about 15 minutes and predominantly what seems to be sitting up, her shortness of breath then improves. REVIEW OF SYSTEMS: Otherwise negative, except for as above. PAST MEDICAL HISTORY: Notable for chronic respiratory failure with 2 liters of oxygen all the time, related to both COPD and CHF, GERD, PEs June 2016, hypothyroid and type 2 diabetes. Her COPD is of uncertain severity. Her CHF appears to be diastolic, given that she has a preserved EF and no significant valvular abnormalities on echo. She has a prior history of ovarian cancer. PAST SURGICAL HISTORY: None of significance. FAMILY HISTORY: Her mother had ovarian cancer. SOCIAL HISTORY: She is a 30+ pack year smoker but she quit about 5 years ago and has not started again. She lives alone but has family support. ALLERGIES: INCLUDE RABIES VACCINE, RAGWEED AND TOMATO. MEDICATIONS: On review, appear to include albuterol q. 4 hours p.r.n. shortness of breath or wheeze, calcium plus D daily, vitamin D additional 400 international units daily, Klonopin 0.5 mg q. 12 p.r.n. anxiety, Flonase 1 spray nasally daily, Lasix 40 mg daily, Synthroid 25 mcg daily, Mobic 7.5 p.o. b.i.d., Glucophage 1000 mg b.i.d., Remeron 45 mg at bedtime, Dulera 200/5 mcg 1 puff b.i.d., Singulair 10 mg at bedtime, multivitamin daily, nortriptyline 10 mg at bedtime, potassium 20 mEq p.o. b.i.d., prednisone recently tapered, Seroquel 400 mg at bedtime, Zantac 150 mg b.i.d., rivaroxaban 20 mg daily, theophylline daily, Spiriva 18 mcg 1 puff daily. PHYSICAL EXAMINATION: Shows: VITAL SIGNS: Temperature of 37.3, pulse hovering right around 100, respiratory rate in the high teens to low 20s, blood pressure 155/89. She is 98% on 2 liters, is 86% on room air but again she lives on 2 liters. GENERAL: She is awake, alert, oriented x3, very fatigued appearing, pleasant but does appear to be in a mild degree of respiratory distress. HEENT: Normocephalic, atraumatic. Mucous membranes are moist. CARDIOVASCULAR: Distant, slightly tachycardic. No rubs, murmurs, or gallops. LUNGS: Clear to auscultation bilaterally. No rales, rhonchi, or wheezes with good effort. Diminished air entry bibasilar, faint lower third lung field rales and then clearing more towards the apex with faint degree of mid to upper lobe expiratory wheezing and overall diminished air entry. She has mild accessory muscle use, predominantly neck muscles. ABDOMEN: Soft. Mildly distended appearing to be mildly uncomfortable without any focal tenderness. No guarding, rebound or rigidity. EXTREMITIES: Without cyanosis or clubbing. Trace edema. She notes it is actually markedly improved from what it was this morning. No calf tenderness. No erythema. No cords. SKIN: Shows no rashes, no pallor or icterus. NEUROLOGIC: Shows cranial nerves II-XII to be grossly intact. Gross motor and sensory are intact. MENTAL STATE: Shows good recent and remote recall. Normal mood and affect. Good judgment and insight. MUSCULOSKELETAL: Yields no gross lesions. LABS AND DIAGNOSTICS: Her CBC shows a white count of 9.72, hemoglobin 10.1, platelets 317. Complete metabolic panel with sodium 140, potassium 4.2, chloride 104, CO2 29, BUN 13, creatinine 0.85, calcium 8.7, glucose 195, total bilirubin 0.4 with an AST of 19, ALT 28, alk phos 104. Troponins are actually negative twice at less than 0.015 3 hours apart. BNP of 44, total protein 6.4, albumin 3.2. PT of 10.3, PTT 28.7. Urinalysis is yellow, clear, specific gravity 1.012, 1+ glucose. Her chest x-ray read by radiology shows normal cardiomediastinal silhouette. Lungs and pleural spaces clear. Osseous structures normal. Upper abdomen normal. On my review, there is a degree of lower lung haziness that is hard to interpret and makes the film a little bit hard to interpret from the lower third of the lung perspective. EKG shows no acute ischemic changes. ASSESSMENT AND PLAN: 1. Acute on chronic hypoxic respiratory failure. This appears by her history to be more congestive heart failure and fluid related but it seems fairly impossible to rule out an element of chronic obstructive pulmonary disease as well. See below. 2. Acute on chronic diastolic congestive heart failure despite her normal BNP. The fact that she has got 12 pounds of weight gain and worsening edema, her symptoms are predominantly orthopnea and paroxysmal nocturnal dyspnea and probable cause, coming from both sodium and steroid mediated fluid retention, it seems that an acute on chronic diastolic congestive heart failure exacerbation is much more likely the culprit, probably because of steroid and sodium mediated fluid retention. Her echo just done about 7 months ago showed EF of 65-70% without any significant valvulopathy and given no ischemic changes on EKG and no elevation of troponins, despite symptoms going on for weeks, I doubt a repeat echo would be of clinical benefit. Certainly can order it if her situation changes, but we will diurese her with Lasix 40 mg now and 40 mg again in a few hours and then resume her regular dose of 40 mg daily thereafter. Try to educate her on sodium restriction and the fact that sodium will lead to fluid retention and we will ask the dietitian to reiterate this teaching and going to more depth and also because it seems this is more congestive heart failure than chronic obstructive pulmonary disease, while I do believe a degree of chronic obstructive pulmonary disease treatment needs to be undertaken. I will refrain from further corticosteroids unless it appears to be clinically truly necessary. 3. Acute on chronic chronic obstructive pulmonary disease exacerbation. This is probably fairly mild. It appears with her weight gain, orthopnea, paroxysmal nocturnal dyspnea, etc., that the greater portion of her respiratory distress is due to congestive heart failure but her feeling feverish, her sweats and simply what appears to probably be the severity of her chronic obstructive pulmonary disease, I find it hard to not treat for a degree of chronic obstructive pulmonary disease. She does not have an infiltrate. We will cover for atypicals with Zithromax. We will utilize nebulizers, DuoNeb q. 4 hours while awake as well as her regular home meds and we will hold off on further steroids unless she is failing to improve with management as above. 4. Pulmonary embolism. Continue her Xarelto. 5. Deep venous thrombosis prophylaxis, Xarelto as above. 6. Anemia. This appears to be chronic and stable. Ongoing outpatient followup. As an outpatient, would want to ensure that she has been up to date on colonoscopy. 7. Type 2 diabetes. Her A1c is 7.5, down from 8.3 earlier this year. Continue her home meds as she is at low risk for any volume depletion of a massive type that would make the metformin too risky. We will also utilize fingersticks and supplemental NovoLog since she will be on steroids. 8. Mildly low albumin. Outpatient followup on p.o. intake. 9. Disposition: She will be observed under the [facility] service. At this point in time, on the regular medical floor.
[2017-05-05 15:20] VITALS: BP 152/76; PULSE 111; TEMP 36.9; O2SAT 96
[2017-05-05 16:00] VITALS: O2SAT 96
[2017-05-05] MEDS ORDERED: DEXTROSE 50% 50 ML SYR IV PRN (16:00)
[2017-05-05] MEDS ORDERED: GLUCOSE 40% GEL 15 GM TUBE PO PRN (16:00)
[2017-05-05] MEDS ORDERED: GLUCAGON FOR INJ 1 MG VIAL SQ PRN (16:00)
[2017-05-05] MEDS ORDERED: GLUCOSE 10 TABS/TUBE PO PRN (16:00)
[2017-05-05] MEDS: DULERA: ORDER AWAITING ACTION SCH ×2 (16:00→23:33)
[2017-05-05] MEDS: RIVAROXABAN 10 MG TAB PO SCH (16:18)
[2017-05-05] MEDS: ALBUT/IPRATROP 3MG/0.5MG NEB 3 ML VIAL INH SCH ×3 (16:20→22:57)
[2017-05-05] MEDS ORDERED: FUROSEMIDE INJ 40 MG in SYRINGE 0 ML IV ONE (17:00)
[2017-05-05] MEDS ORDERED: NURSING DECISION MEDICATION ORDER SCH (17:00)
[2017-05-05 17:11] VITALS: PULSE 91; O2SAT 93
[2017-05-05] MEDS: METFORMIN HCL 500 MG TAB PO SCH (17:18)
[2017-05-05] MEDS: INSULIN ASPART 100 UNITS/ML 3 ML PEN SC SCH ×2 (17:24→21:22)
[2017-05-05 19:42] VITALS: PULSE 110; O2SAT 92
[2017-05-05] MEDS: MONTELUKAST SOD 10 MG TAB PO SCH (21:15)
[2017-05-05] MEDS: RANITIDINE HCL 150 MG TAB PO SCH (21:15)
[2017-05-05] MEDS: POTASSIUM CHLORIDE 20 MEQ TABCR PO SCH (21:15)
[2017-05-05] MEDS: MELOXICAM 7.5 MG TAB PO SCH (21:16)
[2017-05-05] MEDS: NORTRIPTYLINE HCL 10 MG CAP PO SCH (21:16)
[2017-05-05] MEDS: MIRTAZAPINE TAB 15 MG TAB PO SCH (21:16)
[2017-05-05] MEDS: QUETIAPINE FUMARATE 200 MG TAB PO SCH (21:17)
[2017-05-05] MEDS: INSULIN GLARGINE SOLOSTAR 100 UNITS/ML 3 ML PEN SC SCH (21:22)
[2017-05-05 22:58] VITALS: PULSE 107; O2SAT 97
[2017-05-05 23:22] VITALS: BP 102/54; PULSE 70; TEMP 36.8; O2SAT 97
[2017-05-06] VITALS (10 sets, daily range): BP systolic 123–134; BP diastolic 77–82; PULSE 80–113; TEMP 36.4–36.7; O2SAT 93–98; Ht 160 cm; Wt 89.0 kg
[2017-05-06] MEDS: ALBUT/IPRATROP 3MG/0.5MG NEB 3 ML VIAL INH SCH ×7 (02:38→23:33)
[2017-05-06] MEDS: LEVOTHYROXINE 25 MCG TAB PO SCH (05:41)
[2017-05-06] MEDS: DULERA: ORDER AWAITING ACTION SCH ×2 (07:41→15:03)
--- NOTE | 2017-05-06 08:42 | Hospitalist Progress Note ---
Hospitalist Progress Note Date of Service May 06, 2017. Subjective Pt evaluation today including: conversation w/ patient, physical exam, chart review, lab review, review of studies Pain: None PO Intake: Good Voiding: no voiding problems The patient was seen and examined this morning. Pt reports doing better today. Breathing ability has improved, and she is currently on 2L O2 via NC. She had been wearing 2-3 at home. She still feels a little short of breath with ambulation to the bathroom. Pt notes that this however has also improved. She admits to orthopnea and that she sleeps in a hospital bed at home. Pt has been eating tv dinners (hungryman) often because she doesn't cook for herself too often. She admits to constipation, and that her last BM was on Thursday. The patient is requesting referrals for assisted living, as she is home alone, feels she would be better cared for at a facility. Constitutional: No fever, No chills, No sweats Eyes: No redness, No diplopia ENT: No nasal symptoms, No trouble swallowing Respiratory: + wheezing, + shortness of breath, + dyspnea on exertion, No cough, No sputum Cardiovascular: + edema, No chest pain, No palpitations Abdomen: + constipation, No pain, No nausea, No vomiting, No diarrhea Female : No dysuria, No hematuria Neurologic: No memory loss, No weakness, No numbness/tingling Endo: No fatigue Skin: No rash, No itch Objective Vital Signs Date Time Temp Pulse Resp B/P (MAP) Pulse Ox O2 Delivery O2 Flow Rate FiO2 05/06/17 07:40 Nasal Cannula 2.0 05/06/17 07:04 36.7 94 22 134/82 (99) 96 Nasal Cannula 2.0 05/06/17 02:38 90 18 93 Nasal Cannula 2.0 05/06/17 00:00 97 Nasal Cannula 2.0 05/05/17 23:22 36.8 70 16 102/54 (70) 97 Room Air 05/05/17 22:58 107 18 97 Nasal Cannula 2.0 05/05/17 19:42 110 20 92 Nasal Cannula 2.0 05/05/17 17:11 91 20 93 Nasal Cannula 2.0 05/05/17 16:00 96 Nasal Cannula 2.0 05/05/17 15:20 36.9 111 20 152/76 (101) 96 Nasal Cannula 2.0 05/05/17 15:06 37.3 100 22 177/83 98 05/05/17 14:40 100 22 177/83 98 Nasal Cannula 2.0 05/05/17 13:38 105 05/05/17 13:35 105 18 142/76 94 Nasal Cannula 2.0 05/05/17 12:43 Nasal Cannula 1.0 05/05/17 12:39 101 23 144/91 99 Nebulizer 5.0 05/05/17 12:16 86 Room Air 05/05/17 12:00 101 19 131/84 91 Nasal Cannula 05/05/17 11:30 102 24 154/103 95 Nasal Cannula 2.0 05/05/17 10:04 95 15 155/83 99 Nasal Cannula 2.0 05/05/17 09:42 37.3 92 20 155/89 98 Nasal Cannula 2.0 05/05/17 09:40 98 Nasal Cannula 2.0 05/05/17 08:48 99 05/05/17 08:30 94 Room Air 05/05/17 08:30 104 22 125/74 99 Nasal Cannula 2.0 05/05/17 08:30 99 Nasal Cannula 2.0 Physical Exam General Appearance: WD/WN, no apparent distress Eyes: PERRL, EOMI ENT: hearing grossly normal, pharynx normal, + pertinent finding (mucous membranes are dry) Neck: supple, no JVD Respiratory/Chest: no respiratory distress, no accessory muscle use, + pertinent finding (On 2 L via NC, +expiratory wheezing throughout, no crackles or rhales.) Cardiovascular: regular rate, rhythm, no murmur Abdomen: normal bowel sounds, non tender, soft Extremities: non-tender, normal inspection, + pedal edema (1+ pitting edema in the LLE, slight pitting in the RLE.) Neurologic/Psychiatric: alert, normal mood/affect, oriented x 3 Skin: normal color, warm/dry Laboratory Results Last 24 Hours Test 05/05/17 11:22 05/05/17 11:33 05/05/17 16:25 05/05/17 20:01 Troponin I < 0.015 ng/ml Urine Color YELLOW Urine Appearance CLEAR Urine pH 7.0 Urine Specific [place] 1.012 Urine Protein NEG Urine Glucose (UA) 1+ Urine Ketones NEG Urine Occult Blood NEG Urine Nitrite NEG Urine Bilirubin NEG Urine Urobilinogen NEG Urine Leukocyte Esterase NEG Bedside Glucose 379 mg/dl 324 mg/dl Test 05/06/17 07:31 Bedside Glucose 184 mg/dl Assessment and Plan This is a 71 yo F with COPD, diastolic CHF, hx of ovarian cancer, PE's in June, Acute on chronic hypoxic respiratory failure. - likely congestive heart failure and fluid related but it seems possibly also underlying COPD exacerbation- See below. Acute on chronic diastolic congestive heart failure - normal BNP - Pt presented initially with 12 pounds of weight gain and worsening edema, orthopnea and paroxysmal nocturnal dyspnea: likely from both sodium and steroid mediated fluid retention, - Last echo ~7 months ago showed EF of 65-70% without any significant valvulopathy - no ischemic changes on EKG and cardiac biomarkers negative. - Continue diuresis with Lasix 40 mg now switched to home dosage of 40 mg PO. Likely will just need fluid restriction and improved diet and lasix dosage can remain the same. - Strict I/Os, daily weights - Waters[employer] T[employer] consulted for teaching with sodium/fluid intake. Acute on chronic chronic obstructive pulmonary disease exacerbation. - Probably fairly mild - more likely appears that this is consistent with CHF exacerbation. She does have expiratory wheezing which is faint but throughout all max. Continue O2 at 2-3L. - Continue coverage for atypicals with Zithromax. - Supportive care with nebulizers, DuoNeb Q4H while awake, no further steroids at this time Pulmonary embolism. - Continue her Xarelto. Anemia. - chronic and stable - make sure she is up to date on colonoscopy at time of discharge DM II - Her A1c is 7.5, down from 8.3 earlier this year. - Continue her home meds as she is at low risk for any volume depletion of a massive type that would make the metformin too risky. - ISS with accuchecks Mildly low albumin. - Outpatient followup on p.o. intake. DVT ppx: Xarelto Disposition: Possible discharge within 1-2 days, will ask CM to assist with referrals to assisted living in [place].
[2017-05-06] MEDS: METFORMIN HCL 500 MG TAB PO SCH ×2 (08:56→16:51)
[2017-05-06] MEDS: POTASSIUM CHLORIDE 20 MEQ TABCR PO SCH ×2 (08:57→21:09)
[2017-05-06] MEDS: FUROSEMIDE 40 MG TAB PO SCH (08:57)
[2017-05-06] MEDS: RANITIDINE HCL 150 MG TAB PO SCH ×2 (08:58→21:08)
[2017-05-06] MEDS: MELOXICAM 7.5 MG TAB PO SCH ×2 (08:58→21:10)
[2017-05-06] MEDS: CALCIUM 600MG + VIT D 400 IU TAB PO SCH (08:58)
[2017-05-06] MEDS: THEOPHYLLINE 400MG CONTROLLED REL TAB PO SCH (08:59)
[2017-05-06] MEDS: AZITHROMYCIN 250 MG TAB PO SCH (08:59)
[2017-05-06] MEDS: MULTIVITAMIN TAB PO SCH (09:00)
[2017-05-06] MEDS: CHOLECALCIFEROL 400 INTER.UNIT TAB PO SCH (09:00)
[2017-05-06] MEDS: FLUTICASONE PROPIONATE NA SPR 16 GM BTL NAE SCH (09:01)
[2017-05-06] MEDS: TIOTROPIUM BROMIDE 5 PUFF/90 MCG INH INH SCH (09:02)
[2017-05-06] MEDS: INSULIN ASPART 100 UNITS/ML 3 ML PEN SC SCH ×4 (09:05→21:14)
[2017-05-06] MEDS: CLONAZEPAM 0.5 MG TAB PO PRN (12:46)
[2017-05-06] MEDS: COUGH DROP (SUGAR FREE) LOZ 24 LOZ/1 BOX PO PRN (15:23)
[2017-05-06] MEDS: RIVAROXABAN 10 MG TAB PO SCH (16:50)
[2017-05-06] MEDS: MONTELUKAST SOD 10 MG TAB PO SCH (21:08)
[2017-05-06] MEDS: MIRTAZAPINE TAB 15 MG TAB PO SCH (21:08)
[2017-05-06] MEDS: NORTRIPTYLINE HCL 10 MG CAP PO SCH (21:08)
[2017-05-06] MEDS: QUETIAPINE FUMARATE 200 MG TAB PO SCH (21:10)
[2017-05-06] MEDS: INSULIN GLARGINE SOLOSTAR 100 UNITS/ML 3 ML PEN SC SCH (21:14)
[2017-05-07] VITALS (12 sets, daily range): BP systolic 113–131; BP diastolic 70–83; PULSE 97–124; TEMP 36.5–36.8; O2SAT 95–99
[2017-05-07] MEDS: ALBUT/IPRATROP 3MG/0.5MG NEB 3 ML VIAL INH SCH ×5 (05:53→19:30)
[2017-05-07] MEDS: LEVOTHYROXINE 25 MCG TAB PO SCH (05:56)
[2017-05-07 07:24] LABS: HEMATOCRIT 33.3 % (37-47); MEAN CELL VOLUME 83.9 fL (80-100); MEAN CORPUSCULAR HEMOGLOBIN 26.2 pg (25-34); MEAN CORPUSCULAR HGB CONC 31.2 g/dl (32-36); MEAN PLATELET VOLUME 8.6 fL (7.4-10.4); PLATELET COUNT 320 K/uL (130-400); RED BLOOD COUNT 3.97 M/uL (4.2-5.4); WHITE BLOOD COUNT 10.67 K/uL (4.8-10.8)
[2017-05-07 07:56] LABS: BUN/CREATININE RATIO 18.9 (10-20); CALCIUM 8.9 mg/dl (8.5-10.1); CREATININE 0.99 mg/dl (0.60-1.20); POTASSIUM 4.1 mmol/L (3.5-5.1)
[2017-05-07] MEDS: DULERA: ORDER AWAITING ACTION SCH ×4 (08:00→23:48)
[2017-05-07] MEDS: METFORMIN HCL 500 MG TAB PO SCH ×2 (08:49→16:27)
[2017-05-07] MEDS: RANITIDINE HCL 150 MG TAB PO SCH ×2 (08:49→21:20)
[2017-05-07] MEDS: MULTIVITAMIN TAB PO SCH (08:49)
[2017-05-07] MEDS: CALCIUM 600MG + VIT D 400 IU TAB PO SCH (08:50)
[2017-05-07] MEDS: AZITHROMYCIN 250 MG TAB PO SCH (08:50)
[2017-05-07] MEDS: CHOLECALCIFEROL 400 INTER.UNIT TAB PO SCH (08:51)
[2017-05-07] MEDS: POTASSIUM CHLORIDE 20 MEQ TABCR PO SCH ×2 (08:51→21:20)
[2017-05-07] MEDS: THEOPHYLLINE 400MG CONTROLLED REL TAB PO SCH (08:51)
[2017-05-07] MEDS: FUROSEMIDE 40 MG TAB PO SCH (08:52)
[2017-05-07] MEDS: FLUTICASONE PROPIONATE NA SPR 16 GM BTL NAE SCH (08:53)
[2017-05-07] MEDS: INSULIN ASPART 100 UNITS/ML 3 ML PEN SC SCH ×4 (08:53→21:00)
[2017-05-07] MEDS: TIOTROPIUM BROMIDE 5 PUFF/90 MCG INH INH SCH (08:54)
[2017-05-07] MEDS: CLONAZEPAM 0.5 MG TAB PO PRN ×2 (08:58→21:17)
[2017-05-07] MEDS: MELOXICAM 7.5 MG TAB PO SCH ×2 (09:00→21:18)
--- NOTE | 2017-05-07 12:18 | Hospitalist Progress Note ---
Hospitalist Progress Note Date of Service May 07, 2017. (Subha Olson PA-C) Subjective Pt evaluation today including: conversation w/ patient, physical exam, chart review, lab review, review of studies Pain: None PO Intake: Good, fluid restricted to 1500mL Voiding: no voiding problems The patient was seen and examined this morning. Pt reports waking up and feeling acutely short of breath when she woke up this morning. This commonly happens to her at home in the morning. Her nebulizer at home is beside the bed, so she is able to grab this and put it on, however this morning she needed to wait for nursing to call respiratory and so forth, so it took about 30 minutes longer. The patient normally follows up with Pulmonology, Dr. Butt in [facility] and has an appointment there on May 19. She is agreeable to seeing our pulmonology team here in the hospital for possible medication changes. Constitutional: No fever, No chills, No sweats Eyes: No redness, No diplopia ENT: No nasal symptoms, No trouble swallowing Respiratory: + cough, + sputum, + wheezing, + shortness of breath, + problem reported (orthopnea) Cardiovascular: No chest pain, No edema, No palpitations Abdomen: + constipation, No pain, No nausea, No vomiting, No diarrhea Musculoskeletal: + swelling (LLE always slightly more swollen than the RLE) , No joint pain, No muscle pain Neurologic: No weakness, No numbness/tingling, No balance problems Endo: No fatigue Skin: No rash, No itch (Subha Olson PA-C) Objective Vital Signs Date Time Temp Pulse Resp B/P (MAP) Pulse Ox O2 Delivery O2 Flow Rate FiO2 05/07/17 11:23 99 18 98 Nasal Cannula 2.0 05/07/17 08:00 98 Nasal Cannula 2.0 05/07/17 07:22 103 18 98 Nasal Cannula 2.0 05/07/17 06:50 36.5 97 18 118/80 (93) 95 Nasal Cannula 2.0 05/07/17 05:53 120 18 97 Nasal Cannula 2.0 05/07/17 00:15 36.8 110 20 113/70 (84) 97 Nasal Cannula 2.0 05/07/17 00:00 Nasal Cannula 2.0 05/06/17 23:33 104 18 98 Nasal Cannula 2.0 05/06/17 19:24 113 18 95 Nasal Cannula 2.0 05/06/17 16:21 95 16 98 Nasal Cannula 2.0 05/06/17 16:00 98 Nasal Cannula 2.0 05/06/17 15:15 36.4 88 20 123/77 (92) 98 05/06/17 13:20 80 18 97 Nasal Cannula 2.0 (Subha Olson PA-C) Physical Exam Notes: General Appearance: WD/WN, no apparent distress Eyes: PERRL, EOMI ENT: hearing grossly normal, pharynx normal, + pertinent finding (mucous membranes are slightly dry) Neck: supple, no JVD Respiratory/Chest: no respiratory distress, no accessory muscle use, + pertinent finding (On 2 L via NC, no expiratory wheezing, + diminished breath sounds at R base, no crackles or rales.) Cardiovascular: +slightly tachycardic, no extra beats, no murmur Abdomen: normal bowel sounds, non tender, soft Extremities: non-tender, normal inspection, + pedal edema (1+ pitting edema in the LLE, slight pitting in the RLE.) Neurologic/Psychiatric: alert, normal mood/affect, oriented x 3 Skin: normal color, warm/dry (Subha Olson PA-C) Laboratory Results Last 24 Hours Test 05/06/17 16:26 05/06/17 20:36 05/07/17 06:46 05/07/17 07:36 Bedside Glucose 152 mg/dl 176 mg/dl 113 mg/dl White Blood Count 10.67 K/uL Red Blood Count 3.97 M/uL Hemoglobin 10.4 g/dL Hematocrit 33.3 % Mean Corpuscular Volume 83.9 fL Mean Corpuscular Hemoglobin 26.2 pg Mean Corpuscular Hemoglobin Concent 31.2 g/dl RDW Standard Deviation 50.8 fL RDW Coefficient of Variation 16.7 % Platelet Count 320 K/uL Mean Platelet Volume 8.6 fL Sodium Level 141 mmol/L Potassium Level 4.1 mmol/L Chloride Level 106 mmol/L Carbon Dioxide Level 31 mmol/L Anion Gap 4.0 mmol/L Blood Urea Nitrogen 19 mg/dl Creatinine 0.99 mg/dl Est Creatinine Clear Calc Drug Dose 54.4 ml/min Estimated GFR () 66.0 Estimated GFR (Non- 56.9 BUN/Creatinine Ratio 18.9 Random Glucose 117 mg/dl Calcium Level 8.9 mg/dl Test 05/07/17 11:14 Bedside Glucose 116 mg/dl (Subha Olson, CYNDI) Assessment and Plan This is a 71 yo F with COPD, diastolic CHF, hx of ovarian cancer, PE's in June Acute on chronic hypoxic respiratory failure. - likely congestive heart failure and fluid related but it seems possibly also underlying COPD exacerbation- See below. Acute on chronic diastolic congestive heart failure - normal BNP - Pt presented initially with 12 pounds of weight gain and worsening edema, orthopnea and paroxysmal nocturnal dyspnea: likely from both sodium and steroid mediated fluid retention, - Continue fluid restriction of 1500mL/day - Last echo ~7 months ago showed EF of 65-70% without any significant valvulopathy - no ischemic changes on EKG and cardiac biomarkers negative. - Now back on [employer] [place] [employer] Lasix 40 mg PO. - Strict I/Os, daily weights - Territory Sales Manager [employer] consulted for teaching with sodium/fluid intake. Acute on chronic chronic obstructive pulmonary disease exacerbation. - Will ask pulmonology to see the pt and make medication recommendations - Follows with Dr. Butt in [facility] as an outpatient, has follow up on 05/19/17 - Probably fairly mild - more likely appears that this is consistent with CHF exacerbation. expiratory wheezing is improved today, but seems to have diminished breath sounds in the RLL. Continue O2 at 2-3L. - Continue coverage for atypicals with Zithromax. - Supportive care with nebulizers, DuoNeb Q4H while awake, no further steroids at this time - Continue spiriva 1 puff QAM and singulair QAM, and theophylline 400 mg QAM Pulmonary embolism. - Continue her Xarelto. Anemia. - chronic and stable - make sure she is up to date on colonoscopy at time of discharge DM II - Her A1c is 7.5, down from 8.3 earlier this year. - Continue her home meds as she is at low risk for any volume depletion of a massive type that would make the metformin too risky. - ISS with accuchecks - glucose seems to be relatively well controlled. Mildly low albumin. - Outpatient followup on p.o. intake. Constipation: - Chronically has BM every 3-5 days, last BM was 4 days ago. Will start her on dulcolax 5 mg PO daily, mirilax scheduled daily, and have dulcolax supp and milk of mag PRN. DVT ppx: Xarelto Disposition: Possible discharge within 1-2 days, CM to assist with d/c planning. (Subha Olson, PA-C) I agree with PA assessment and plan and have seen and examined pt myself Resting comfortably in bed VSS Labs reviewed Still reports sob on exertion ?COPD component as well Pulm consulted Cont IV lasix (Kwame Meredtih, D.O.)
[2017-05-07] MEDS ORDERED: BISACODYL 10 MG SUPP PR PRN (14:45)
[2017-05-07] MEDS: COUGH DROP (SUGAR FREE) LOZ 24 LOZ/1 BOX PO PRN (14:46)
[2017-05-07] MEDS: BISACODYL 5 MG TABEC PO SCH (15:16)
[2017-05-07] MEDS: RIVAROXABAN 10 MG TAB PO SCH (16:28)
[2017-05-07] MEDS: ALBUTEROL 0.083% NEBU SOLN 3 ML VIAL INH PRN ×2 (20:34→23:23)
[2017-05-07] MEDS: NORTRIPTYLINE HCL 10 MG CAP PO SCH (21:18)
[2017-05-07] MEDS: MONTELUKAST SOD 10 MG TAB PO SCH (21:18)
[2017-05-07] MEDS: MIRTAZAPINE TAB 15 MG TAB PO SCH (21:19)
[2017-05-07] MEDS: QUETIAPINE FUMARATE 200 MG TAB PO SCH (21:19)
[2017-05-07] MEDS: INSULIN GLARGINE SOLOSTAR 100 UNITS/ML 3 ML PEN SC SCH (21:26)
[2017-05-08] VITALS (10 sets, daily range): BP systolic 111–144; BP diastolic 70–81; PULSE 92–110; TEMP 36.3–36.6; O2SAT 94–98
[2017-05-08] MEDS: ALBUTEROL 0.083% NEBU SOLN 3 ML VIAL INH PRN (03:13)
[2017-05-08] MEDS: ALBUT/IPRATROP 3MG/0.5MG NEB 3 ML VIAL INH SCH ×5 (06:12→23:00)
[2017-05-08] MEDS: LEVOTHYROXINE 25 MCG TAB PO SCH (06:24)
[2017-05-08] MEDS: DULERA: ORDER AWAITING ACTION SCH ×3 (08:00→23:48)
[2017-05-08] MEDS: CLONAZEPAM 0.5 MG TAB PO PRN (08:24)
[2017-05-08] MEDS: TIOTROPIUM BROMIDE 5 PUFF/90 MCG INH INH SCH (08:26)
[2017-05-08] MEDS: FLUTICASONE PROPIONATE NA SPR 16 GM BTL NAE SCH (08:26)
[2017-05-08] MEDS: CHOLECALCIFEROL 400 INTER.UNIT TAB PO SCH (08:26)
[2017-05-08] MEDS: POLYETHYLENE (MIRALAX) 17 GM PACK PO SCH (08:27)
[2017-05-08] MEDS: MULTIVITAMIN TAB PO SCH (08:28)
[2017-05-08] MEDS: METFORMIN HCL 500 MG TAB PO SCH ×2 (08:28→16:37)
[2017-05-08] MEDS: POTASSIUM CHLORIDE 20 MEQ TABCR PO SCH ×2 (08:28→20:24)
[2017-05-08] MEDS: RANITIDINE HCL 150 MG TAB PO SCH ×2 (08:29→20:23)
[2017-05-08] MEDS: CALCIUM 600MG + VIT D 400 IU TAB PO SCH (08:29)
[2017-05-08] MEDS: AZITHROMYCIN 250 MG TAB PO SCH (08:29)
[2017-05-08] MEDS: FUROSEMIDE 40 MG TAB PO SCH (08:30)
[2017-05-08] MEDS: THEOPHYLLINE 400MG CONTROLLED REL TAB PO SCH (08:30)
[2017-05-08] MEDS: MELOXICAM 7.5 MG TAB PO SCH ×2 (08:31→20:22)
[2017-05-08] MEDS: BISACODYL 5 MG TABEC PO SCH (08:31)
[2017-05-08] MEDS: INSULIN ASPART 100 UNITS/ML 3 ML PEN SC SCH ×4 (08:35→20:24)
--- NOTE | 2017-05-08 14:53 | Progress Note ---
Subjective Date of Service: May 08, 2017. Subjective Pt evaluation today including: conversation w/ patient, physical exam, chart review, lab review, review of studies, conversation w/ insurance consultant, review of inpatient medication list Reports worsening shortness of breath with ambulation still No productive cough or chest pain States lower extremity swelling improved Problem List Medical Problems: (1) Acute exacerbation of chronic obstructive pulmonary disease Status: Acute (2) Anemia Status: Acute (3) COPD exacerbation Status: Acute (4) COPD exacerbation Status: Acute (5) COPD exacerbation Status: Acute (6) COPD exacerbation Status: Acute (7) Hypomagnesemia Status: Acute (8) Hypoxia Status: Acute (9) Lactic acidosis Status: Acute (10) Sepsis Status: Acute Review of Systems Constitutional: No fever, No chills, No sweats, No weight loss, No weakness Respiratory: + shortness of breath, + dyspnea on exertion, + dyspnea at rest, No cough, No sputum, No wheezing Cardiac: + edema, No chest pain, No orthopnea, No PND Abdomen: No pain, No nausea, No vomiting, No diarrhea, No constipation Musculoskeletal: No joint pain, No muscle pain, No swelling, No calf pain Female : No dysuria, No urinary frequency, No hematuria, No incontinence Neurologic: No memory loss, No paralysis, No weakness, No numbness/tingling Psychiatric: No depression symptoms, No anhedonism, No anxiety, No insomnia Endo: No fatigue, No excessive thirst Skin: No rash, No itch Objective Vital Signs Date Time Temp Pulse Resp B/P (MAP) Pulse Ox O2 Delivery O2 Flow Rate FiO2 05/08/17 11:42 105 20 97 Nasal Cannula 2.0 05/08/17 10:19 Room Air 05/08/17 07:06 36.3 93 16 111/70 (84) 94 Nasal Cannula 2.0 05/08/17 06:12 99 22 98 Nasal Cannula 3.0 05/08/17 06:00 98 Nasal Cannula 3.0 05/08/17 03:13 101 16 98 Nasal Cannula 3.0 05/07/17 23:23 99 16 98 Nasal Cannula 3.0 05/07/17 23:17 36.8 102 18 123/74 (90) 96 Nasal Cannula 3.0 05/07/17 20:35 124 35 95 Nasal Cannula 2.0 05/07/17 20:30 97 Nasal Cannula 2.0 05/07/17 15:48 36.5 103 18 131/83 (99) 99 Nasal Cannula 2.0 05/07/17 15:35 105 18 99 Nasal Cannula 2.0 Physical Exam General Appearance: WD/WN, no apparent distress Eyes: normal inspection, PERRL, EOMI, sclerae normal Neck: supple, no adenopathy, thyroid normal, no JVD Respiratory/Chest: chest non-tender, no accessory muscle use, + decreased breath sounds, + wheezing Cardiovascular: regular rate, rhythm, no gallop, no JVD Abdomen: normal bowel sounds, non tender, soft, no organomegaly Extremities: normal range of motion, non-tender, normal inspection, + pedal edema Neurologic/Psychiatric: no motor/sensory deficits, alert, normal mood/affect, oriented x 3 Laboratory Results Last 24 Hours Test 05/07/17 16:05 05/07/17 19:41 05/08/17 07:36 05/08/17 11:36 Bedside Glucose 127 mg/dl 166 mg/dl 121 mg/dl 113 mg/dl Assessment and Plan This is a 71 yo F with COPD, diastolic CHF, hx of ovarian cancer, PE's in June Acute on chronic hypoxic respiratory failure. - likely congestive heart failure and fluid related but it seems possibly also underlying COPD exacerbation Acute on chronic diastolic congestive heart failure - normal BNP - Pt presented initially with 12 pounds of weight gain and worsening edema, orthopnea and paroxysmal nocturnal dyspnea: likely from both sodium and steroid mediated fluid retention, - Continue fluid restriction of 1500mL/day - Last echo ~7 months ago showed EF of 65-70% without any significant valvulopathy - no ischemic changes on EKG and cardiac biomarkers negative. - Now back on TEST ARCHITECT Lasix 40 mg PO. - Strict I/Os, daily weights - Special Education Coordinator consulted for teaching with sodium/fluid intake. Acute on chronic chronic obstructive pulmonary disease exacerbation. - Will ask pulmonology to see the pt and make medication recommendations - Follows with Dr. Butt in [place] [facility] as an outpatient, has follow up on 05/19/17 - Probably fairly mild - more likely appears that this is consistent with CHF exacerbation. - Continue coverage for atypicals with Zithromax. pulmicort added - Supportive care with nebulizers, DuoNeb Q4H while awake, no further steroids at this time - Continue spiriva 1 puff QAM and singulair QAM, and theophylline 400 mg QAM Pulmonary embolism. - Continue her Xarelto. Anemia. - chronic and stable - make sure she is up to date on colonoscopy at time of discharge DM II - Her A1c is 7.5, down from 8.3 earlier this year. - Continue her home meds as she is at low risk for any volume depletion of a massive type that would make the metformin too risky. - ISS with accuchecks - glucose seems to be relatively well controlled. Mildly low albumin. - Outpatient followup on p.o. intake. Constipation: - Chronically has BM every 3-5 days, last BM was 4 days ago. Will start her on dulcolax 5 mg PO daily, mirilax scheduled daily, and have dulcolax supp and milk of mag PRN. DVT ppx: Xarelto
--- NOTE | 2017-05-08 15:19 | CONSULTATION REPORT ---
DATE OF CONSULTATION: 05/08/2017 REASON FOR CONSULTATION: Persistent dyspnea. HISTORY OF PRESENT ILLNESS: The patient is a 71-year-old female who has known COPD, who was last evaluated by our service when she was hospitalized in October of this year. She has been hospitalized since then from April 15 through April 18. She was admitted at that time for acute on chronic respiratory failure with hypoxia and COPD exacerbation. She does have oxygen dependent COPD. The patient reports that when she went home, she was feeling a little bit better; however, a few days after getting home, she started to feel worse again. She states that she started to feel more short of breath and her shortness of breath has continued to progress. The shortness of breath is worse at nighttime when she lays down. She does describe some orthopnea. She has also noted a 12-pound weight gain since she was discharged from the hospital. She states that she does have a little bit of cough at times. No congestion, no mucus production. She does have some wheezing off and on. She has no chest pain or painful respiration. She has no palpitations. She does state that she had felt feverish at times with this. She had some sweats with this. Fever was not documented, no chills. Appetite has been normal. No nausea or vomiting, no indigestion or heartburn. She has not had any difficulty swallowing. No coughing or choking when she eats or drinks. No difficulty with voiding. No swelling in her extremities. When discussing her COPD, the patient is followed by pulmonology from the [place] area. She states that she is on Dulera, but she is only taking 2 puffs once a day. She is using her nebulizer every 3-4 hours throughout the day. She is on her Spiriva as well. She does get very panicky when she cannot breathe and she notes that her anxiety plays a role in her breathing as well. The patient was admitted on May 05. She did have chest x-ray done, which is not showing any evidence of acute cardiopulmonary disease. PFTs are unknown. On admission, it was felt that because of the 12-pound weight gain and the orthopneic symptoms, that patient did have a decompensation of her known congestive heart failure. The patient was diuresed and has had a negative fluid balance of about 1400 mL since admission. Her weight has remained about the same. However, her breathing according to the patient, has not really significantly improved. Last echocardiogram, though we have in the chart, is from September 2016, showing normal LV size and thickness, ejection fraction of 65-70%, normal right ventricular size and function, no significant abnormalities. PAST MEDICAL HISTORY: Includes chronic respiratory failure, chronic oxygen dependence on 2 liters, COPD which is oxygen dependent, congestive heart failure felt to be diastolic, gastroesophageal reflux disease, history of pulmonary embolism June 2016, hypothyroidism, diabetes type 2, ovarian cancer. PAST SURGICAL HISTORY: Unremarkable. FAMILY HISTORY: Includes ovarian cancer. SOCIAL HISTORY: The patient has a 30+ pack year smoking history, having quit in 2011. Denies any alcohol use. She is retired. ALLERGIES: INCLUDE RABIES, RAGWEED AND TOMATOES. HOSPITAL MEDICATIONS: Include MiraLax powder 17 g daily, Dulcolax 5 mg daily, vitamin D, Flonase, Lasix, Spiriva, Citracal with D, multivitamin, theophylline controlled release, azithromycin, levothyroxine, meloxicam, Singulair, nortriptyline, potassium chloride, Seroquel, Zantac, Remeron, Lantus, Glucophage, Xarelto, Tylenol as needed, albuterol neb every 4 hours as needed, DuoNeb every 4 hours while awake. REVIEW OF SYSTEMS: As above, otherwise unremarkable. PHYSICAL EXAMINATION: GENERAL: The patient is a 71-year-old female, just got back from walking around on the floor, did appear to be slightly short of breath, was having some slight dyspnea with completing sentences. She is alert and oriented x3. Mood and affect is good. VITAL SIGNS: Temp 36.3, pulse 105, respirations 20, blood pressure 111/70, pulse ox 97% on 2 liters. HEENT: Normocephalic, atraumatic. Pupils equal, round and reactive to light and accommodation. Extraocular movements are intact. [place] moist gingival and buccal mucosa. NECK: Supple. No mass. No adenopathy. No bruit. CHEST: Overall clear, does have diminished breath sounds. There is no significant wheeze, rale or rhonchi. CARDIOVASCULAR: Regular rate and rhythm. No murmurs, gallops or rubs. ABDOMEN: Bowel sounds are present. Abdomen soft, nontender. No guarding, rigidity or organomegaly. EXTREMITIES: No erythema or edema. NEUROLOGIC: Cranial nerves II-XII are intact. No focal deficit noted. LABORATORY DATA: Shows the most recent white count of 10,000, H&H 10.4 and 33.3, platelet count 320,000. No new imaging data. IMPRESSION: This is a 71-year-old female with known oxygen dependence and fairly severe chronic obstructive pulmonary disease, who presents with exacerbation to her breathing, which is multifactorial. I do believe that the patient does have some decompensation of her diastolic heart failure and she has been diuresed, but this is only making slight improvement. I think that she is also having some difficulty with her chronic obstructive pulmonary disease. My question if she has the inspiratory effort to appropriately and adequately use her Dulera at home. Therefore, I would like to switch her over to Brovana via nebulizer to see if this is more helpful for her, she is agreeable to this. We will also start her on budesonide via nebulizer and see if this makes any improvement. We can monitor her for efficacy as well as for adverse event. She apparently does have a followup with her agricultural extension educator on May 19. I think we can continue her on short acting nebulizer in the form of DuoNeb. I would like for her to continue the rest of her medications as they are. I am not sure how much benefit Solu-Medrol would be at this time if the patient does not really have any significant wheezing, however, she may notice little bit of improvement. We may go ahead and give her a 1-time dose today to see if there is any significant change, if not, then can hold off on a steroid at this time. If she does notice significant improvement, then we can do some steroid while she is here and do a slow taper. We will continue to monitor through hospitalization. Patient case reviewed and plan was agreed upon. JULISSA
[2017-05-08] MEDS: RIVAROXABAN 10 MG TAB PO SCH (16:37)
[2017-05-08] MEDS: COUGH DROP (SUGAR FREE) LOZ 24 LOZ/1 BOX PO PRN (16:48)
[2017-05-08] MEDS: ARFORMOTEROL TART 15MCG/2ML VIAL INH SCH (19:28)
[2017-05-08] MEDS: BUDESONIDE 0.5 MG/2 ML VIAL (PULMICORT) INH SCH (19:28)
[2017-05-08] MEDS: NORTRIPTYLINE HCL 10 MG CAP PO SCH (20:22)
[2017-05-08] MEDS: MONTELUKAST SOD 10 MG TAB PO SCH (20:22)
[2017-05-08] MEDS: QUETIAPINE FUMARATE 200 MG TAB PO SCH (20:23)
[2017-05-08] MEDS: MIRTAZAPINE TAB 15 MG TAB PO SCH (20:23)
[2017-05-08] MEDS: INSULIN GLARGINE SOLOSTAR 100 UNITS/ML 3 ML PEN SC SCH (20:26)
[2017-05-09] VITALS (10 sets, daily range): BP systolic 103–124; BP diastolic 67–77; PULSE 79–108; TEMP 36.6–36.7; O2SAT 92–99
[2017-05-09] MEDS: ALBUT/IPRATROP 3MG/0.5MG NEB 3 ML VIAL INH SCH ×5 (03:14→23:32)
[2017-05-09] MEDS: LEVOTHYROXINE 25 MCG TAB PO SCH (06:07)
[2017-05-09] MEDS: BUDESONIDE 0.5 MG/2 ML VIAL (PULMICORT) INH SCH ×2 (07:03→19:18)
[2017-05-09] MEDS: ARFORMOTEROL TART 15MCG/2ML VIAL INH SCH ×2 (07:04→19:18)
[2017-05-09] MEDS: DULERA: ORDER AWAITING ACTION SCH ×3 (08:00→23:35)
[2017-05-09] MEDS: CHOLECALCIFEROL 400 INTER.UNIT TAB PO SCH (08:13)
[2017-05-09] MEDS: CLONAZEPAM 0.5 MG TAB PO PRN ×2 (08:13→18:52)
[2017-05-09] MEDS: MULTIVITAMIN TAB PO SCH (08:14)
[2017-05-09] MEDS: METFORMIN HCL 500 MG TAB PO SCH ×2 (08:14→17:47)
[2017-05-09] MEDS: THEOPHYLLINE 400MG CONTROLLED REL TAB PO SCH (08:14)
[2017-05-09] MEDS: MELOXICAM 7.5 MG TAB PO SCH ×2 (08:15→21:04)
[2017-05-09] MEDS: RANITIDINE HCL 150 MG TAB PO SCH ×2 (08:15→21:06)
[2017-05-09] MEDS: POTASSIUM CHLORIDE 20 MEQ TABCR PO SCH ×2 (08:16→21:04)
[2017-05-09] MEDS: CALCIUM 600MG + VIT D 400 IU TAB PO SCH (08:16)
[2017-05-09] MEDS: POLYETHYLENE (MIRALAX) 17 GM PACK PO SCH (08:17)
[2017-05-09] MEDS: FUROSEMIDE 40 MG TAB PO SCH (08:17)
[2017-05-09] MEDS: FLUTICASONE PROPIONATE NA SPR 16 GM BTL NAE SCH (08:20)
[2017-05-09] MEDS: BISACODYL 5 MG TABEC PO SCH (08:26)
[2017-05-09] MEDS: INSULIN ASPART 100 UNITS/ML 3 ML PEN SC SCH ×4 (08:26→21:00)
[2017-05-09] MEDS: TIOTROPIUM BROMIDE 5 PUFF/90 MCG INH INH SCH (08:27)
[2017-05-09] MEDS: AZITHROMYCIN 250 MG TAB PO SCH (08:28)
--- NOTE | 2017-05-09 10:49 | Progress Note ---
Subjective Date of Service: May 09, 2017. Subjective Pt evaluation today including: conversation w/ patient, physical exam, chart review, lab review, review of studies, review of inpatient medication list Pt states breathing improved Resting comfortably in bed Reports still feeling weak and shortness of breath at rest and minimal activity Problem List Medical Problems: (1) Acute exacerbation of chronic obstructive pulmonary disease Status: Acute (2) Anemia Status: Acute (3) COPD exacerbation Status: Acute (4) COPD exacerbation Status: Acute (5) COPD exacerbation Status: Acute (6) COPD exacerbation Status: Acute (7) Hypomagnesemia Status: Acute (8) Hypoxia Status: Acute (9) Lactic acidosis Status: Acute (10) Sepsis Status: Acute Review of Systems Constitutional: No fever, No chills, No sweats, No weight loss, No weakness ENT: No hearing loss, No unusual epistaxis, No nasal symptoms, No sore throat Respiratory: + shortness of breath, + dyspnea on exertion, + dyspnea at rest, + hemoptysis, No cough, No sputum, No wheezing Cardiac: No chest pain, No orthopnea, No PND, No edema Abdomen: No pain, No nausea, No vomiting, No diarrhea, No constipation Musculoskeletal: No joint pain, No muscle pain, No swelling, No calf pain Female : No dysuria, No urinary frequency, No hematuria, No incontinence Neurologic: No memory loss, No paralysis, No weakness, No numbness/tingling Psychiatric: No depression symptoms, No anhedonism, No anxiety Endo: No fatigue, No excessive thirst Skin: No rash, No itch Objective Vital Signs Date Time Temp Pulse Resp B/P (MAP) Pulse Ox O2 Delivery O2 Flow Rate FiO2 05/09/17 08:00 Nasal Cannula 05/09/17 07:34 36.7 91 16 124/77 (93) 98 2.0 05/09/17 07:06 91 20 98 Nasal Cannula 2.0 05/09/17 03:14 98 20 96 Nasal Cannula 2.0 05/09/17 00:00 98 Nasal Cannula 2.0 05/08/17 23:33 36.5 104 16 144/81 (102) 97 Nasal Cannula 3.0 05/08/17 23:01 103 20 98 Nasal Cannula 3.0 05/08/17 19:28 103 20 98 Nasal Cannula 3.0 05/08/17 16:17 36.6 92 18 115/72 (86) 98 Nasal Cannula 2.0 05/08/17 16:00 Nasal Cannula 2.0 05/08/17 15:25 110 22 97 Nasal Cannula 3.0 05/08/17 11:42 105 20 97 Nasal Cannula 2.0 Physical Exam General Appearance: WD/WN, no apparent distress Eyes: normal inspection, PERRL, EOMI, sclerae normal Neck: supple, no adenopathy, thyroid normal, no JVD Respiratory/Chest: chest non-tender, no respiratory distress, no accessory muscle use, + decreased breath sounds Cardiovascular: regular rate, rhythm, no edema, no gallop, no JVD Abdomen: normal bowel sounds, non tender, soft, no organomegaly Extremities: normal range of motion, non-tender, normal inspection, no pedal edema Neurologic/Psychiatric: no motor/sensory deficits, alert, normal mood/affect, oriented x 3 Laboratory Results Last 24 Hours Test 05/08/17 11:36 05/08/17 16:23 05/08/17 19:54 05/09/17 07:12 Bedside Glucose 113 mg/dl 172 mg/dl 131 mg/dl 134 mg/dl Assessment and Plan This is a 71 yo F with COPD, diastolic CHF, hx of ovarian cancer, PE's in June Acute on chronic hypoxic respiratory failure. - likely congestive heart failure and fluid related but it seems possibly also underlying COPD exacerbation Acute on chronic diastolic congestive heart failure - normal BNP - Pt presented initially with 12 pounds of weight gain and worsening edema, orthopnea and paroxysmal nocturnal dyspnea: likely from both sodium and steroid mediated fluid retention, - Continue fluid restriction of 1500mL/day - Last echo ~7 months ago showed EF of 65-70% without any significant valvulopathy - no ischemic changes on EKG and cardiac biomarkers negative. - Now back on NOZZLEMAN Lasix 40 mg PO. - Strict I/Os, daily weights - Screen Machine Operator consulted for teaching with sodium/fluid intake. Acute on chronic chronic obstructive pulmonary disease exacerbation. - Consult Pulm, rec starting on brovana and perhaps titrating down steroids - Follows with Dr. Butt in [facility] as an outpatient, has follow up on 05/19/17 - Probably fairly mild - more likely appears that this is consistent with CHF exacerbation. - Continue coverage for atypicals with Zithromax. - Supportive care with nebulizers, DuoNeb Q4H while awake, no further steroids at this time - Continue spiriva 1 puff QAM and singulair QAM, and theophylline 400 mg QAM Pulmonary embolism. - Continue her Xarelto. Anemia. - chronic and stable - make sure she is up to date on colonoscopy at time of discharge DM II - Her A1c is 7.5, down from 8.3 earlier this year. - Continue her home meds as she is at low risk for any volume depletion of a massive type that would make the metformin too risky. - ISS with accuchecks - glucose seems to be relatively well controlled. Mildly low albumin. - Outpatient followup on p.o. intake. Constipation: - Chronically has BM every 3-5 days, last BM was 4 days ago. Will start her on dulcolax 5 mg PO daily, mirilax scheduled daily, and have dulcolax supp and milk of mag PRN. DVT ppx: Xarelto
[2017-05-09] MEDS: RIVAROXABAN 10 MG TAB PO SCH (17:48)
[2017-05-09] MEDS: NORTRIPTYLINE HCL 10 MG CAP PO SCH (21:05)
[2017-05-09] MEDS: QUETIAPINE FUMARATE 200 MG TAB PO SCH (21:05)
[2017-05-09] MEDS: MIRTAZAPINE TAB 15 MG TAB PO SCH (21:05)
[2017-05-09] MEDS: MONTELUKAST SOD 10 MG TAB PO SCH (21:06)
[2017-05-09] MEDS: INSULIN GLARGINE SOLOSTAR 100 UNITS/ML 3 ML PEN SC SCH (21:09)
[2017-05-10] VITALS (11 sets, daily range): BP systolic 110–127; BP diastolic 68–79; PULSE 83–100; TEMP 36.3–36.6; O2SAT 92–98
[2017-05-10] MEDS: LEVOTHYROXINE 25 MCG TAB PO SCH (06:32)
[2017-05-10] MEDS: BUDESONIDE 0.5 MG/2 ML VIAL (PULMICORT) INH SCH ×2 (06:56→19:25)
[2017-05-10] MEDS: ARFORMOTEROL TART 15MCG/2ML VIAL INH SCH ×2 (06:56→19:25)
[2017-05-10] MEDS: ALBUT/IPRATROP 3MG/0.5MG NEB 3 ML VIAL INH SCH ×5 (06:58→23:10)
[2017-05-10] MEDS: DULERA: ORDER AWAITING ACTION SCH ×3 (07:42→23:50)
[2017-05-10] MEDS: TIOTROPIUM BROMIDE 5 PUFF/90 MCG INH INH SCH (07:43)
[2017-05-10] MEDS: METFORMIN HCL 500 MG TAB PO SCH ×2 (07:43→16:29)
[2017-05-10] MEDS: MELOXICAM 7.5 MG TAB PO SCH ×2 (07:44→20:42)
[2017-05-10] MEDS: AZITHROMYCIN 250 MG TAB PO SCH (07:44)
[2017-05-10] MEDS: FLUTICASONE PROPIONATE NA SPR 16 GM BTL NAE SCH (07:44)
[2017-05-10] MEDS: MULTIVITAMIN TAB PO SCH (07:44)
[2017-05-10] MEDS: CHOLECALCIFEROL 400 INTER.UNIT TAB PO SCH (07:44)
[2017-05-10] MEDS: CALCIUM 600MG + VIT D 400 IU TAB PO SCH (07:44)
[2017-05-10] MEDS: POTASSIUM CHLORIDE 20 MEQ TABCR PO SCH ×2 (07:44→20:43)
[2017-05-10] MEDS: FUROSEMIDE 40 MG TAB PO SCH (07:44)
[2017-05-10] MEDS: RANITIDINE HCL 150 MG TAB PO SCH ×2 (07:44→20:43)
[2017-05-10] MEDS: POLYETHYLENE (MIRALAX) 17 GM PACK PO SCH (07:45)
[2017-05-10] MEDS: THEOPHYLLINE 400MG CONTROLLED REL TAB PO SCH (07:45)
[2017-05-10] MEDS: INSULIN ASPART 100 UNITS/ML 3 ML PEN SC SCH ×4 (08:35→20:48)
[2017-05-10] MEDS: BISACODYL 5 MG TABEC PO SCH (10:07)
--- NOTE | 2017-05-10 14:38 | Pulmonology Progress Note ---
Pulmonary Progress Note Date of Service May 10, 2017. Attending Dr. Meyers Subjective When I looked in the room patient was sleeping with no signs of respiratory distress. She was easily awoken during our conversation noted she was still short of breath and not back to her baseline. Furthermore conversation she did note that she is scared to go home as her current apartment setting was recently rated by the police for drugs. Objective Patient was asleep with no signs of respiratory insufficiency/increased work of breathing. During our conversation she was able to sit up in bed was not using accessory muscles nor did she become tachypnea. I/O: +240cc FiO2: SaO2: 92-97% RR: 16-18 HR: 83-100 RESP: Minimal rhonchi on expiration CARD: S1-S2 regular rate and rhythm no murmurs rubs or gallops ABD: Soft nontender positive bowel sounds no rebound EXT: No clubbing cyanosis or edema noted LABS: Pro-BNP: 44 RADs: CXR: no acute intra-thoracic disease noted MICRO: Medications #1 Brovana nebulizer twice a day #2 Pulmicort twice a day #3 Flonase one spray each nostril daily #4 Lasix 40 by mouth #5 Spiriva one puff daily #6 Theophylline 400 mg daily #7 Azithromycin #8 singular 10 mg daily #9 ranitidine 150 mg twice a day #10 Xeralto also 20 mg daily #11 DuoNeb every 4 hours Past medical history #1 Chronic respiratory failure on supplemental oxygen 2 L #2 hypothyroidism #3 of ovarian cancer #4 GERD #5 CHF #6 COPD--oxygen dependent #7 meningitis #8 ovarian cancer #9 pulmonary embolism June 2016--- treated with Coumadin #10 [id number] diabetes mellitus Assessment & Plan 71-year-old female admitted for acute on chronic respiratory insufficiency: #1 Respiratory Insufficiency: The patient does have a history of COPD and sees a call person as an outpatient but we do not have pulmonary function tests to define the level degree of her obstructive ventilatory disease. At this time I think she is responded to therapy well and appears to be no acute respiratory insufficiency most likely back to her baseline. I agree with titrating down on the steroids and continuing on her current medical regimen. At this time I believe the patient can perform a proper inhalation technique with Pulmicort and will discontinue prevotii. #2 Social Work: Patient notes that a lot of her shortness of breath associated with her severe anxiety which is tied to her current living conditions which are notably becoming more dangerous. Suggest we were per the social work team to see if we can find a different place for the patient to reside. Sign off: At this time the patient is back to her baseline with titrating down on steroids and I don't believe the primary team can be of any further benefit thank you very much. Data Medications: Current Inpatient Medications Medications (Trade) Dose Ordered Sig/Lulú Route Start Time Stop Time Status Last Admin Dose Admin Acetaminophen (Tylenol Tab) 650 mg Q4H PRN PO 05/05/17 12:45 06/04/17 12:44 Al Hydrox/Mg Hydrox/Simethicone (Maalox Max Susp) 15 ml Q4H PRN PO 05/05/17 12:45 06/04/17 12:44 Magnesium Hydroxide (Milk Of Magnesia Susp) 30 ml Q6H PRN PO 05/05/17 12:45 06/04/17 12:44 05/06/17 21:10 30 ML Ondansetron HCl (Zofran Inj) 4 mg Q6H PRN IV 05/05/17 12:45 06/04/17 12:44 Albuterol Sulfate (Ventolin 0.083% 2.5MG/3ML Neb) 2.5 mg Q4H PRN INH 05/05/17 12:45 06/04/17 12:44 05/08/17 03:13 2.5 MG Cholecalciferol (Vitamin D Tab) 400 inter.unit QAM PO 05/06/17 09:00 06/05/17 08:59 05/10/17 07:44 400 INTER.UNIT Clonazepam (Klonopin Tab) 0.5 mg Q12H PRN PO 05/05/17 12:45 06/04/17 12:44 05/09/17 18:52 0.5 MG Fluticasone Propionate (Flonase Nasal [place]) 1 sprays DAILY NANCY 05/06/17 09:00 06/05/17 08:59 05/10/17 07:44 1 SPRAYS Furosemide (Lasix Tab) 40 mg QAM PO 05/06/17 09:00 06/05/17 08:59 05/10/17 07:44 40 MG Levothyroxine Sodium (Synthroid Tab) 25 mcg DAILYBB PO 05/06/17 06:30 06/05/17 06:59 05/10/17 06:32 25 MCG Meloxicam (Mobic Tab) 7.5 mg BID PO 05/05/17 21:00 06/04/17 20:59 05/10/17 07:44 7.5 MG Metformin HCl (Glucophage Tab) 1,000 mg BIDM PO 05/05/17 17:00 06/04/17 17:59 05/10/17 07:43 1,000 MG Montelukast Sodium (Singulair Tab) 10 mg HS PO 05/05/17 21:00 06/04/17 20:59 05/09/17 21:06 10 MG Nortriptyline HCl (Pamelor Cap) 10 mg HS PO 05/05/17 21:00 06/04/17 20:59 05/09/17 21:05 10 MG Potassium Chloride (Klor-Con Tab) 20 meq BID PO 05/05/17 21:00 06/04/17 20:59 05/10/17 07:44 20 MEQ Quetiapine Fumarate (seroQUEL TAB) 400 mg HS PO 05/05/17 21:00 06/04/17 20:59 05/09/17 21:05 400 MG Ranitidine HCl (zANTac TAB) 150 mg BID PO 05/05/17 21:00 06/04/17 20:59 05/10/17 07:44 150 MG Rivaroxaban (Xarelto Tab) 20 mg QDD PO 05/05/17 17:00 06/04/17 16:59 05/09/17 17:48 20 MG Tiotropium [place] (Spiriva Handihaler Inhaler) 1 puff DAILY INH 05/06/17 09:00 06/05/17 08:59 05/10/17 07:43 1 PUFF Calcium/Vitamin D (Caltrate Plus Tab) 1 tab QAM PO 05/06/17 09:00 06/05/17 08:59 05/10/17 07:44 1 TAB Mirtazapine (Remeron Tab) 45 mg HS PO 05/05/17 21:00 06/04/17 20:59 05/09/17 21:05 45 MG Miscellaneous Information (Order Awaiting Action) 1 ea QS N/A 05/05/17 16:00 06/04/17 15:59 Multivitamins (Multivitamin Tab) 1 tab QAM PO 05/06/17 09:00 06/05/17 08:59 05/10/17 07:44 1 TAB Theophylline (Uniphyl Controlled Rel 24hr Tab) 400 mg QAM PO 05/06/17 09:00 06/05/17 08:59 05/10/17 07:45 400 MG Albuterol/ Ipratropium (Duoneb) 3 ml Q4HWA INH 05/05/17 16:00 06/04/17 15:59 05/10/17 11:21 3 ML Azithromycin (Zithromax Tab) 250 mg QAM PO 05/06/17 09:00 05/13/17 08:59 05/10/17 07:44 250 MG Insulin Aspart (novoLOG ASPART) SLIDING SCALE G... ACHS SC 05/05/17 16:00 06/04/17 15:59 05/10/17 12:08 3 UNITS Miscellaneous (Iv Fluids Completed) 1 ea PRN PRN N/A 05/05/17 13:45 05/05/18 13:44 Glucose (Glucose 40% Gel) For hypoglycemia in trina... UD PRN PO 05/05/17 16:00 06/04/17 15:59 Glucose (Glucose Chew Tab) 4-8 Tablets 4 Tabl... UD PRN PO 05/05/17 16:00 06/04/17 15:59 Dextrose (Dextrose 50% 50ML Syringe) 25-50ML OF 50% DW IV FOR... UD PRN IV 05/05/17 16:00 06/04/17 15:59 Glucagon (Glucagon Inj) 1 mg UD PRN SQ 05/05/17 16:00 06/04/17 15:59 Menthol (Nice Kena) 1 kena PRN PRN PO 05/05/17 17:45 06/04/17 17:44 05/08/17 16:48 24 KENA Insulin Glargine (Lantus Solostar Pen) 10 units HS SC 05/05/17 21:00 06/04/17 20:59 05/09/17 21:09 10 UNITS Bisacodyl (Dulcolax Tab) 5 mg DAILY PO 05/07/17 14:45 06/06/17 14:44 05/10/17 10:07 5 MG Bisacodyl (Dulcolax Supp) 10 mg DAILY PRN SD 05/07/17 14:45 06/06/17 14:44 05/08/17 18:39 10 MG Polyethylene (Miralax Powder Packet) 17 gm DAILY PO 05/08/17 09:00 06/04/17 12:44 05/10/17 07:45 17 GM Arformoterol Tartrate (Brovana 15MCG/ 2ML Neb Soln) 15 mcg BIDR INH 05/08/17 20:00 06/07/17 19:59 05/10/17 06:56 15 MCG Budesonide (Pulmicort Respules 0.5MG/ 2ML Neb Soln) 0.5 mg BIDR INH 05/08/17 20:00 06/07/17 19:59 05/10/17 06:56 0.5 MG I & O: 24-Hour Column 05/11/17 08:00 Intake Total 515 ml Balance 515 ml Vital Signs: Date Time Temp Pulse Resp B/P (MAP) Pulse Ox O2 Delivery O2 Flow Rate FiO2 05/10/17 11:23 83 18 97 Nasal Cannula 3.0 05/10/17 08:00 Nasal Cannula 3.0 05/10/17 07:41 36.5 93 16 121/75 (90) 98 3.0 05/10/17 06:58 100 18 95 Nasal Cannula 3.0 05/10/17 03:50 97 18 94 Nasal Cannula 3.0 05/10/17 00:00 92 Nasal Cannula 3.0 05/09/17 23:32 108 18 92 Nasal Cannula 3.0 05/09/17 23:13 36.6 90 18 104/67 (79) 97 05/09/17 19:20 99 20 96 Nasal Cannula 3.0 05/09/17 15:55 Nasal Cannula 2.0 05/09/17 14:50 36.7 102 18 103/67 (79) 99 2.0 05/09/17 14:39 101 20 98 Nasal Cannula 2.0 Laboratory Results: Last 24 Hours Test 05/09/17 16:21 05/09/17 20:05 05/10/17 07:27 05/10/17 11:16 Bedside Glucose 188 mg/dl 174 mg/dl 139 mg/dl 173 mg/dl
[2017-05-10] MEDS: RIVAROXABAN 10 MG TAB PO SCH (16:30)
--- NOTE | 2017-05-10 16:39 | Progress Note ---
Subjective Date of Service: May 10, 2017. Subjective Pt evaluation today including: conversation w/ patient, physical exam, chart review, lab review, review of studies, conversation w/ franchise field consultant, review of inpatient medication list Reports improvement in shortness of breath Resting comfortably in bed Problem List Medical Problems: (1) Acute exacerbation of chronic obstructive pulmonary disease Status: Acute (2) Anemia Status: Acute (3) COPD exacerbation Status: Acute (4) COPD exacerbation Status: Acute (5) COPD exacerbation Status: Acute (6) COPD exacerbation Status: Acute (7) Hypomagnesemia Status: Acute (8) Hypoxia Status: Acute (9) Lactic acidosis Status: Acute (10) Sepsis Status: Acute Review of Systems Constitutional: No fever, No chills, No sweats, No weight loss ENT: No hearing loss, No unusual epistaxis, No nasal symptoms, No sore throat Respiratory: + dyspnea on exertion, No cough, No sputum, No wheezing, No shortness of breath Cardiac: No chest pain, No orthopnea, No PND, No edema Abdomen: No pain, No nausea, No vomiting, No diarrhea, No constipation Musculoskeletal: No joint pain, No muscle pain, No swelling, No calf pain Female : No dysuria, No urinary frequency, No hematuria, No incontinence Neurologic: No memory loss, No paralysis, No weakness, No numbness/tingling Psychiatric: No depression symptoms, No anhedonism, No anxiety, No insomnia Endo: No fatigue, No excessive thirst Skin: No rash, No itch Objective Vital Signs Date Time Temp Pulse Resp B/P (MAP) Pulse Ox O2 Delivery O2 Flow Rate FiO2 05/10/17 15:10 36.3 95 18 127/79 (95) 96 Nasal Cannula 3.0 05/10/17 14:56 88 14 96 Nasal Cannula 3.0 05/10/17 11:23 83 18 97 Nasal Cannula 3.0 05/10/17 08:00 Nasal Cannula 3.0 05/10/17 07:41 36.5 93 16 121/75 (90) 98 3.0 05/10/17 06:58 100 18 95 Nasal Cannula 3.0 05/10/17 03:50 97 18 94 Nasal Cannula 3.0 05/10/17 00:00 92 Nasal Cannula 3.0 05/09/17 23:32 108 18 92 Nasal Cannula 3.0 05/09/17 23:13 36.6 90 18 104/67 (79) 97 05/09/17 19:20 99 20 96 Nasal Cannula 3.0 Physical Exam General Appearance: WD/WN, no apparent distress Neck: supple, no adenopathy, thyroid normal, no JVD Respiratory/Chest: chest non-tender, lungs clear, normal breath sounds, no respiratory distress Cardiovascular: regular rate, rhythm, no edema, no gallop, no JVD Abdomen: normal bowel sounds, non tender, soft, no organomegaly Neurologic/Psychiatric: no motor/sensory deficits, alert, normal mood/affect, oriented x 3 Laboratory Results Last 24 Hours Test 05/09/17 20:05 05/10/17 07:27 05/10/17 11:16 05/10/17 16:18 Bedside Glucose 174 mg/dl 139 mg/dl 173 mg/dl 159 mg/dl Assessment and Plan This is a 71 yo F with COPD, diastolic CHF, hx of ovarian cancer, PE's in June Acute on chronic diastolic congestive heart failure - Normal BNP - Pt presented initially with 12 pounds of weight gain and worsening edema, orthopnea and paroxysmal nocturnal dyspnea: likely from both sodium and steroid mediated fluid retention, - Continue fluid restriction of 1500mL/day - Last echo ~7 months ago showed EF of 65-70% without any significant valvulopathy - No ischemic changes on EKG and cardiac biomarkers negative. - Now back on CONVERTIBLE POWER SHOVEL OPERATOR Lasix 40 mg PO. - Strict I/Os, daily weights - Windows Systems Admin consulted for teaching with sodium/fluid intake. Acute on chronic chronic obstructive pulmonary disease exacerbation. - Consult Pulm, rec starting on brovana and perhaps titrating down steroids - Follows with Dr. Butt in [facility] as an outpatient, has follow up on 05/19/17 - Probably fairly mild - more likely appears that this is consistent with CHF exacerbation. - Continue coverage for atypicals with Zithromax. - Supportive care with nebulizers, DuoNeb Q4H while awake, no further steroids at this time - Continue spiriva 1 puff QAM and singulair QAM, and theophylline 400 mg QAM Pulmonary embolism. - Continue her Xarelto. Anemia. - chronic and stable - make sure she is up to date on colonoscopy at time of discharge DM II - Her A1c is 7.5, down from 8.3 earlier this year. - Continue her home meds as she is at low risk for any volume depletion of a massive type that would make the metformin too risky. - ISS with accuchecks - glucose seems to be relatively well controlled. Mildly low albumin. - Outpatient followup on p.o. intake. Constipation: - Chronically has BM every 3-5 days, last BM was 4 days ago. Will start her on dulcolax 5 mg PO daily, mirilax scheduled daily, and have dulcolax supp and milk of mag PRN. DVT ppx: Xarelto Likely DC home in next 24 hrs
[2017-05-10] MEDS: MONTELUKAST SOD 10 MG TAB PO SCH (20:42)
[2017-05-10] MEDS: MIRTAZAPINE TAB 15 MG TAB PO SCH (20:42)
[2017-05-10] MEDS: QUETIAPINE FUMARATE 200 MG TAB PO SCH (20:42)
[2017-05-10] MEDS: NORTRIPTYLINE HCL 10 MG CAP PO SCH (20:42)
[2017-05-10] MEDS: INSULIN GLARGINE SOLOSTAR 100 UNITS/ML 3 ML PEN SC SCH (20:49)
[2017-05-11] VITALS (10 sets, daily range): BP systolic 108–123; BP diastolic 67–78; PULSE 73–102; TEMP 36.7–36.9; O2SAT 92–99
[2017-05-11] MEDS: ALBUTEROL 0.083% NEBU SOLN 3 ML VIAL INH PRN (02:03)
[2017-05-11] MEDS: LEVOTHYROXINE 25 MCG TAB PO SCH (06:10)
[2017-05-11] MEDS: ARFORMOTEROL TART 15MCG/2ML VIAL INH SCH ×2 (07:15→19:17)
[2017-05-11] MEDS: BUDESONIDE 0.5 MG/2 ML VIAL (PULMICORT) INH SCH ×2 (07:16→19:17)
[2017-05-11] MEDS: ALBUT/IPRATROP 3MG/0.5MG NEB 3 ML VIAL INH SCH ×5 (07:16→22:55)
[2017-05-11] MEDS: DULERA: ORDER AWAITING ACTION SCH ×3 (08:00→23:52)
[2017-05-11] MEDS: METFORMIN HCL 500 MG TAB PO SCH ×2 (08:10→17:40)
[2017-05-11] MEDS: FUROSEMIDE 40 MG TAB PO SCH (08:10)
[2017-05-11] MEDS: THEOPHYLLINE 400MG CONTROLLED REL TAB PO SCH (08:11)
[2017-05-11] MEDS: RANITIDINE HCL 150 MG TAB PO SCH ×2 (08:11→21:03)
[2017-05-11] MEDS: MELOXICAM 7.5 MG TAB PO SCH ×2 (08:12→21:04)
[2017-05-11] MEDS: INSULIN ASPART 100 UNITS/ML 3 ML PEN SC SCH ×4 (08:13→21:00)
[2017-05-11] MEDS: POLYETHYLENE (MIRALAX) 17 GM PACK PO SCH (08:16)
[2017-05-11] MEDS: MULTIVITAMIN TAB PO SCH (08:16)
[2017-05-11] MEDS: POTASSIUM CHLORIDE 20 MEQ TABCR PO SCH ×2 (08:17→21:03)
[2017-05-11] MEDS: AZITHROMYCIN 250 MG TAB PO SCH (08:18)
[2017-05-11] MEDS: CHOLECALCIFEROL 400 INTER.UNIT TAB PO SCH (08:18)
[2017-05-11] MEDS: CALCIUM 600MG + VIT D 400 IU TAB PO SCH (08:18)
[2017-05-11] MEDS: FLUTICASONE PROPIONATE NA SPR 16 GM BTL NAE SCH (08:20)
[2017-05-11] MEDS: BISACODYL 5 MG TABEC PO SCH (08:22)
[2017-05-11] MEDS: TIOTROPIUM BROMIDE 5 PUFF/90 MCG INH INH SCH (09:15)
[2017-05-11 10:22] LABS: MEAN CELL VOLUME 84.6 fL (80-100); MEAN CORPUSCULAR HEMOGLOBIN 25.4 pg (25-34); MEAN PLATELET VOLUME 8.5 fL (7.4-10.4); PLATELET COUNT 327 K/uL (130-400); RED BLOOD COUNT 4.02 M/uL (4.2-5.4)
[2017-05-11 10:40] LABS: CREATININE 0.88 mg/dl (0.60-1.20); POTASSIUM 4.1 mmol/L (3.5-5.1)
[2017-05-11] MEDS: COUGH DROP (SUGAR FREE) LOZ 24 LOZ/1 BOX PO PRN (13:40)
--- NOTE | 2017-05-11 15:18 | Hospitalist Progress Note ---
Hospitalist Progress Note Date of Service May 11, 2017. Subjective Pt evaluation today including: conversation w/ patient, physical exam, chart review, lab review, review of inpatient medication list Pain: None PO Intake: Tolerating PO diet Voiding: no voiding problems Patient reports feeling better. She states she still has shortness of breath and dyspnea on exertion but that it is improved. She does have intermittent wheezing. The patient admits to orthopnea. She states that she developed some nausea earlier this afternoon but denies vomiting. The patient denies fevers, chills, sweats, chest pain, palpitations, claudication, cough, vomiting, abdominal pain, dysuria, hematuria, urinary retention, paralysis, weakness, acute numbness and tingling. Additional Comments: See HPI for pertinent positives and negatives. All other systems reviewed and negative. Objective Vital Signs Date Time Temp Pulse Resp B/P (MAP) Pulse Ox O2 Delivery O2 Flow Rate FiO2 05/11/17 14:53 36.7 87 18 108/67 (81) 96 2.0 05/11/17 11:05 97 16 97 Nasal Cannula 2.0 05/11/17 09:56 97 16 92 Nasal Cannula 2.0 05/11/17 08:20 Nasal Cannula 3.0 05/11/17 07:43 36.7 73 18 123/78 (93) 99 3.0 05/11/17 07:19 87 16 99 Nasal Cannula 3.0 05/11/17 02:03 98 16 94 Room Air 05/11/17 00:00 Nasal Cannula 3.0 05/10/17 23:36 36.6 98 16 110/68 (82) 98 Room Air 05/10/17 23:11 85 16 95 Nasal Cannula 3.0 05/10/17 19:25 88 14 96 Nasal Cannula 3.0 05/10/17 16:15 96 Nasal Cannula 3.0 05/10/17 15:10 36.3 95 18 127/79 (95) 96 Nasal Cannula 3.0 Physical Exam Notes: General appearance: +Obese. Well-developed, well-nourished, no apparent distress Head: Normocephalic, atraumatic Eyes: Normal inspection, PERRL, EOMI ENT: Normal ENT inspection, hearing grossly normal, pharynx normal Neck: Supple, no JVD, trachea midline Respiratory/Chest: +Diminished breath sounds throughout. Poor air movement/ tight. Lungs clear to auscultation, no respiratory distress Cardiovascular: Regular rate & rhythm, no gallop, no murmur Abdomen/GI: +RLQ TTP. Normal bowel sounds, soft Extremities/Musculoskeletal: +Trace pitting edema. Normal inspection, no calf tenderness Neurological/Psych: Alert, normal mood/affect, oriented x 3 Skin: Normal color, warm/dry, no rash Laboratory Results Last 24 Hours Test 05/10/17 16:18 05/10/17 19:46 05/11/17 07:26 05/11/17 09:45 Bedside Glucose 159 mg/dl 163 mg/dl 127 mg/dl White Blood Count 7.00 K/uL Red Blood Count 4.02 M/uL Hemoglobin 10.2 g/dL Hematocrit 34.0 % Mean Corpuscular Volume 84.6 fL Mean Corpuscular Hemoglobin 25.4 pg Mean Corpuscular Hemoglobin Concent 30.0 g/dl RDW Standard Deviation 50.2 fL RDW Coefficient of Variation 16.1 % Platelet Count 327 K/uL Mean Platelet Volume 8.5 fL Sodium Level 140 mmol/L Potassium Level 4.1 mmol/L Chloride Level 101 mmol/L Carbon Dioxide Level 37 mmol/L Anion Gap 2.0 mmol/L Blood Urea Nitrogen 19 mg/dl Creatinine 0.88 mg/dl Est Creatinine Clear Calc Drug Dose 61.1 ml/min Estimated GFR () 76.1 Estimated GFR (Non- 65.6 BUN/Creatinine Ratio 22.0 Random Glucose 199 mg/dl Calcium Level 9.0 mg/dl Test 05/11/17 11:14 Bedside Glucose 164 mg/dl Assessment and Plan 71 y/o female with history of COPD, chronic diastolic CHF, h/o ovarian cancer and h/o PE who presents with shortness of breath. Acute on chronic hypoxic respiratory failure--likely secondary to acute CHF vs acute COPD. Improving - O2 by protocol. Acute on chronic diastolic congestive heart failure--stable - Normal BNP - Pt presented initially with 12 pounds of weight gain and worsening edema, orthopnea and paroxysmal nocturnal dyspnea: likely from both sodium and steroid mediated fluid retention, - Continue fluid restriction of 1500 mL/day - Continue home Lasix 40 mg PO qd - Last echo ~7 months ago showed EF of 65-70% without any significant valvulopathy - No ischemic changes on EKG and cardiac biomarkers negative - Strict I/Os, daily weights - UO has not been recorded last few days. UO 450 so far today. - Silk Top Hat Body Maker consulted for teaching with sodium/fluid intake. Acute COPD exacerbation--stable - Pulmonology consulted, appreciate recs: Switch Dulera to Brovana. Add Pulmicort neb. - Follows with Dr. Butt in [facility] as an outpatient, has follow up on - D/C azithromycin. 7 days completed inpatient - Brovana neb BID - Pulmicort neb BID - Supportive care with nebulizers, DuoNeb Q4H while awake - Continue Spiriva 1 puff inh QAM and Singulair 10 mg PO QAM, and theophylline 400 mg PO QAM Pulmonary embolism--stable - Continue Xarelto 20 mg PO qd Chronic anemia, normocytic unknown etiology--stable - Hgb remains stable, at baseline - Make sure she is up to date on colonoscopy at time of discharge DM II--last hgbA1c 7.5 on 04/16/17 - Continue metformin 1000 mg PO BID - Lantus 10 units SC qpm - Insulin sliding scale - Check BSGs q ac and qhs Mildly low albumin - Outpatient followup on PO intake. Constipation--stable - Chronically has BM every 3-5 days, last BM was 4 days ago. Will start her on dulcolax 5 mg PO daily, miralax scheduled daily, and have dulcolax supp and milk of mag PRN. DVT prophylaxis -Xarelto Code Status -Level I, FULL RESUSCITATION STATUS
[2017-05-11] MEDS: RIVAROXABAN 10 MG TAB PO SCH (17:39)
[2017-05-11] MEDS: MIRTAZAPINE TAB 15 MG TAB PO SCH (21:03)
[2017-05-11] MEDS: MONTELUKAST SOD 10 MG TAB PO SCH (21:04)
[2017-05-11] MEDS: NORTRIPTYLINE HCL 10 MG CAP PO SCH (21:04)
[2017-05-11] MEDS: QUETIAPINE FUMARATE 200 MG TAB PO SCH (21:04)
[2017-05-11] MEDS: INSULIN GLARGINE SOLOSTAR 100 UNITS/ML 3 ML PEN SC SCH (21:10)
[2017-05-12] VITALS (7 sets, daily range): BP systolic 90–129; BP diastolic 56–76; PULSE 72–101; TEMP 36.9; O2SAT 96–97
[2017-05-12] MEDS: ALBUT/IPRATROP 3MG/0.5MG NEB 3 ML VIAL INH SCH ×4 (00:54→11:48)
[2017-05-12] MEDS: CLONAZEPAM 0.5 MG TAB PO PRN (01:25)
[2017-05-12] MEDS: LEVOTHYROXINE 25 MCG TAB PO SCH (06:19)
[2017-05-12] MEDS: ARFORMOTEROL TART 15MCG/2ML VIAL INH SCH (07:29)
[2017-05-12] MEDS: BUDESONIDE 0.5 MG/2 ML VIAL (PULMICORT) INH SCH (07:29)
[2017-05-12] MEDS: DULERA: ORDER AWAITING ACTION SCH (08:00)
[2017-05-12] MEDS: BISACODYL 5 MG TABEC PO SCH (08:27)
[2017-05-12] MEDS: CHOLECALCIFEROL 400 INTER.UNIT TAB PO SCH (08:27)
[2017-05-12] MEDS: POLYETHYLENE (MIRALAX) 17 GM PACK PO SCH (08:28)
[2017-05-12] MEDS: RANITIDINE HCL 150 MG TAB PO SCH (08:28)
[2017-05-12] MEDS: FLUTICASONE PROPIONATE NA SPR 16 GM BTL NAE SCH (08:30)
[2017-05-12] MEDS: FUROSEMIDE 40 MG TAB PO SCH (08:30)
[2017-05-12] MEDS: TIOTROPIUM BROMIDE 5 PUFF/90 MCG INH INH SCH (08:30)
[2017-05-12] MEDS: MULTIVITAMIN TAB PO SCH (08:31)
[2017-05-12] MEDS: THEOPHYLLINE 400MG CONTROLLED REL TAB PO SCH (08:31)
[2017-05-12] MEDS: POTASSIUM CHLORIDE 20 MEQ TABCR PO SCH (08:32)
[2017-05-12] MEDS: METFORMIN HCL 500 MG TAB PO SCH (08:32)
[2017-05-12] MEDS: CALCIUM 600MG + VIT D 400 IU TAB PO SCH (08:32)
[2017-05-12] MEDS: MELOXICAM 7.5 MG TAB PO SCH (08:33)
[2017-05-12] MEDS: INSULIN ASPART 100 UNITS/ML 3 ML PEN SC SCH ×2 (08:37→12:29)
[2017-05-12] MEDS ORDERED: ARFO15NE INH ×2 (11:58→16:39)
[2017-05-12] MEDS ORDERED: PLMINS INH ×2 (11:58→16:39)
--- NOTE | 2017-05-12 12:04 | Discharge Instructions ---
Discharge Instructions Date of Service May 12, 2017. Admission Reason for Admission: Acute Respiratory Failure With Hypoxia Discharge Discharge Diagnosis / Problem: copd exac Discharge Goals Goal(s): Decrease discomfort, Improve function, Increase independence, Improve disease control, Improve nutritional status, Learn about illness, Diagnostic testing, Therapeutic intervention, Prevent Disease Progression, Specific goals Activity Recommendations Activity Limitations: resume your previous activity . Instructions / Follow-Up Instructions / Follow-Up you have Acute on chronic hypoxic respiratory failure--likely secondary to acute diastolic heart failure and acute COPD exac you need to continue fluid restriction of 1500 mL/day, Continue home Lasix 40 mg PO qd you have Acute COPD exacerbation-, has switch Dulera to Brovana. Add Pulmicort neb. you need to Dr. Butt in [facility] as an outpatient, has follow up on you need to follow up pulmonary in 10 days - take medication as instructed, never overdose or any misuse, or take with alcohol, because misuse of medicine may cause organ damage or , call your primary care physician if have questions of medicaitons. - call your primary care physician OR go to local emergency room if has any fever/chill, chest pain, shortness of breathing, nausea/vomiting/abdominal pain , facial droop/slurry speech/local weakness, or if has any questions. - fall precaution - diet as instructed - you need to follow up with your subspecialist - you should understand that it is important to follow up the above instruction , and "not following the above instruction" may cause delayed or missed care of your medical conditions which may cause permanent organ damage and even . Current Hospital Diet Patient's current hospital diet: Diabetes Type 1 Diet Discharge Diet Recommended Diet: Low Sodium Diet (2gm Na) Fluid Restriction: 1500 ml (6 cups) Pending Studies Studies pending at discharge: no Laboratory Results Hemoglobin A1c Test 04/16/17 06:09 Range/Units Estimated Average Glucose 169 mg/dl Hemoglobin A1c 7.5 H 4.5-5.6 % Medical Emergencies . Who to Call and When: Medical Emergencies: If at any time you feel your situation is an emergency, please call 911 immediately. . Non-Emergent Contact Non-Emergency issues call your: Primary Care Provider, Regional Truck Driver . . "Provider Documentation" section prepared by Juan Gupta. . VTE Core Measure Inpt VTE Proph given/why not?: Other Anticoagulation
--- NOTE | 2017-05-12 16:46 | Discharge Summary ---
Discharge Summary Date of Service May 12, 2017. Discharge Summary Admission Date: May 06, 2017 at 11:01 Discharge Date: May 12, 2017 Discharge Disposition: Home Principal Diagnosis: Acute on chronic hypoxic respiratory failure Problems/Secondary Diagnoses: Acute on chronic diastolic congestive heart failure--stable Acute COPD exacerbation--stable Pulmonary embolism--stable Chronic anemia Immunizations: Have You Had Influenza Vaccine: Yes History of Tetanus Vaccine?: Yes History of Pneumococcal: Yes History of Hepatitis B Vaccine: Unknown Procedures: No Consultations: Advocacy Director Medication Reconciliation New Medications: Arformoterol Tartrate (Brovana) 15 Mcg/2 Ml Neb 15 MCG INH BIDR for 30 Days Budesonide (Inhalation) (Pulmicort Respules 0.5MG/2ML) 0.5 Mg/2 Ml Malika 0.5 MG INH BIDR for 30 Days Continued Medications: Albuterol Sulf (Albuterol Sulfate) 2.5 Mg/3 Ml Nebu 2.5 MG INH Q4H PRN for sob/wheezing, #60 UNITS Calcium Carbonate-Cholecalcife (Oyster Shell Calcium + D) 1 Tab Tab 1 TAB PO QAM Cholecalciferol (Vitamin D 400 Iu) 400 Unit Cap 400 INTER.UNIT PO QAM Clonazepam (Clonazepam) 0.5 Mg Tab 0.5 MG PO Q12H PRN for Anxiety/Agitation Fluticasone Propionate (Nasal) (Flonase Allergy Relief) 50 Mcg/Act Spr 1 SPRAY NANCY DAILY Furosemide (Lasix) 40 Mg Tab 40 MG PO QAM, TAB Levothyroxine Sodium (Synthroid) 25 Mcg Tab 25 MCG PO QAM Meloxicam (Meloxicam) 7.5 Mg Tab 7.5 MG PO BID Metformin Hcl (Glucophage) 1,000 Mg Tab 1000 MG PO BID, TAB Mirtazapine (Remeron) 45 Mg Tab 45 MG PO HS Mometasone Furoate-Formoterol (Dulera 200/5 Mcg) 1 Aer Aer 1 PUFF INH BID Montelukast Sodium (Singulair) 10 Mg Tab 10 MG PO HS Multiple Vitamins W/ Iron (Multi Vitamin with Iron) 1 Tab Tab 1 TAB PO QAM Nortriptyline (Pamelor) 10 Mg Cap 10 MG PO HS Potassium Chloride (Klor-Con M20) 20 Meq Tabcr 20 MEQ PO BID Quetiapine Fumarate (Seroquel) 400 Mg Tab 400 MG PO HS Ranitidine Hcl (Zantac) 150 Mg Tab 150 MG PO BID, TAB Rivaroxaban (Xarelto) 20 Mg Tab 20 MG PO QAM, TAB Theophylline (Rohit-24) 400 Mg Capcr 1 CAP PO QAM Tiotropium Anchor (Spiriva Handihaler) 30 Puff/540 Mcg Aerp 1 CAP INH DAILY Discontinued Medications: Levofloxacin (Levofloxacin) 500 Mg Tab 500 MG PO DAILY@11 for 4 Days, TAB Prednisone (Prednisone) 20 Mg Tab 0 PO DAILY, #14 3 TABS DAILY FOR 2 DAYS, THEN 2 TABS DAILY FOR 2 DAYS, THEN 1 TAB DAILY FOR 2 DAYS, THEN 1/2 TAB DAILY FOR 2 DAYS. Discharge Exam Feeling okay, difficult breathing in the baseline, was up and walk, less cough, no chest pain Review of Systems: Eyes: No worsening of vision, No eye pain, No redness, No discharge, No diplopia, No problem reported ENT: No hearing loss, No unusual epistaxis, No nasal symptoms, No sore throat, No tinnitus, No dental problems, No trouble swallowing, No problem reported Respiratory: + shortness of breath (in baseline), No cough, No sputum, No wheezing, No dyspnea on exertion, No dyspnea at rest, No hemoptysis, No problem reported Cardiovascular: No chest pain, No orthopnea, No PND, No edema, No claudication, No palpitations, No problem reported Abdomen: No pain, No nausea, No vomiting, No diarrhea, No constipation, No GI bleeding, No problem reported Musculoskeletal: No joint pain, No muscle pain, No swelling, No calf pain, No problem reported Genitourinary - Female: No dysuria, No urinary frequency, No urinary urgency , No urinary incontinence, No urinary retention, No hematuria, No dysmenorrhea, No menorrhagia, No metrorrhagia, No rash, No vaginal bleeding, No vaginal discharge, No vaginal itching, No vulvodynia, No , No problem reported Neurologic: No memory loss, No paralysis, No weakness, No numbness/tingling , No vertigo, No balance problems, No problem reported Psychiatric: No depression symptoms, No anhedonism, No anxiety, No insomnia , No substance abuse, No problem reported Endocrine: No fatigue, No excessive thirst, No excessive urination, No problem reported Hematologic / Lymphatic: No abnormal bleeding/bruising, No clotting problems , No swollen lymph nodes, No night sweats, No problem reported Integumentary: No rash, No itch, No new/changing skin lesions, No color change, No bleeding, No problem reported Physical Exam: General Appearance: WD/WN, no apparent distress Eyes: normal inspection, PERRL Neck: supple, no adenopathy Respiratory/Chest: + decreased breath sounds (significant decreased) Cardiovascular: regular rate, rhythm, no edema, no gallop Abdomen / GI: normal bowel sounds, non tender, soft, no organomegaly, no pulsatile mass Extremities: normal inspection, no calf tenderness, normal capillary refill Neurologic/Psychiatric: motion study technician II-XII nml as tested, no motor/sensory deficits , alert, normal mood/affect, normal reflexes Skin: normal color, warm/dry, no rash Hospital Course 71 y/o female with history of COPD, chronic diastolic CHF, h/o ovarian cancer and h/o PE admitted on May 05 because of shortness of breath., Improving and better Acute on chronic hypoxic respiratory failure--likely secondary to acute CHF vs acute COPD. Improving - O2 by protocol. Acute on chronic diastolic congestive heart failure--stable Normal BNP Recent weight gain and worsening edema, orthopnea and paroxysmal nocturnal dyspnea: Prior to admission - Continue fluid restriction of 1500 mL/day, Strict I/Os, daily weights - Continue home Lasix 40 mg PO qd - Last echo ~7 months ago showed EF of 65-70% without any significant valvulopathy - No ischemic changes on EKG and cardiac biomarkers negative - Follow up input and output and urine output - Automotive Parts Interpreter consulted for teaching with sodium/fluid intake. Acute COPD exacerbation--stable - Pulmonology consulted, appreciate recs: Switch Dulera to Brovana. Add Pulmicort neb. - Follows with Dr. Butt in [facility] as an outpatient, has follow up on - D/C azithromycin. 7 days completed inpatient - Brovana neb BID - Pulmicort neb BID Pulmonary embolism--stable Chronic anemia, normocytic unknown etiology--stable DM II--last hgbA1c 7.5 on 04/16/17, stable Mildly low albumin, Outpatient followup on PO intake. Constipation--stable - Chronically has BM every 3-5 days, last BM was 4 days ago. Will start her on dulcolax 5 mg PO daily, miralax scheduled daily, and have dulcolax supp and milk of mag PRN. DVT prophylaxis -Xarelto Code Status -Level I, FULL RESUSCITATION STATUS -Risk of readmission because of significant possible end-stage respiratory failure disease Instructions / Follow-Up you have Acute on chronic hypoxic respiratory failure--likely secondary to acute diastolic heart failure and acute COPD exac you need to continue fluid restriction of 1500 mL/day, Continue home Lasix 40 mg PO qd you have Acute COPD exacerbation-, has switch Dulera to Brovana. Add Pulmicort neb. you need to Dr. Butt in [facility] as an outpatient, has follow up on you need to follow up pulmonary in 10 days - take medication as instructed, never overdose or any misuse, or take with alcohol, because misuse of medicine may cause organ damage or , call your primary care physician if have questions of medicaitons. - call your primary care physician OR go to local emergency room if has any fever/chill, chest pain, shortness of breathing, nausea/vomiting/abdominal pain , facial droop/slurry speech/local weakness, or if has any questions. - fall precaution - diet as instructed - you need to follow up with your subspecialist - you should understand that it is important to follow up the above instruction , and "not following the above instruction" may cause delayed or missed care of your medical conditions which may cause permanent organ damage and even . Total Time Spent: Less than 30 minutes This includes examination of the patient, discharge planning, medication reconciliation, and communication with other providers. Discharge Instructions Please refer to the electronic Patient Visit Report (Discharge Instructions) for additional information. Additional Copies To Owen Lucas MD; Clem Meyers MD
[2017-06-20] MEDS ORDERED: PRD20 PO (13:07)
== END 2017-05-12 13:08 | disposition home health service (06) | DRG 291 ==
LOC: EDBD 08:28 → C.EDB 08:30 → C.MS2W 12:49 → ENRESERV 13:38 → OBSVTOIN 05-06 11:01 → C.MS2W 05-07 20:49
PROVIDERS: ADMIT Family Medicine; ATTEND Hospitalist
DX: I50.33 Acute on chronic diastolic (congestive) heart failure (principal); J96.21 Acute and chronic respiratory failure with hypoxia; I26.99 Other pulmonary embolism without acute cor pulmonale; J44.1 Chronic obstructive pulmonary disease with (acute) exacerbation; K21.9 Gastro-esophageal reflux disease without esophagitis; E11.9 Type 2 diabetes mellitus without complications; E03.9 Hypothyroidism, unspecified; D64.9 Anemia, unspecified; K59.00 Constipation, unspecified; E66.9 Obesity, unspecified; Z87.891 Personal history of nicotine dependence; Z79.899 Other long term (current) drug therapy; Z79.84 Long term (current) use of oral hypoglycemic drugs; Z79.52 Long term (current) use of systemic steroids; Z79.01 Long term (current) use of anticoagulants; Z99.81 Dependence on supplemental oxygen; Z68.34 Body mass index [BMI] 34.0-34.9, adult

== ENCOUNTER 2017-06-18 23:14 | Observation (INO) | payer OTHER ==
[~2017-06-18] VITALS: Ht 160 cm; Wt 95.5 kg
[~2017-06-18 23:14] MED LIST changes: +ARFO15NE INH; -LVQ500 PO; +PLMINS INH; -PRED20TA PO
[2017-06-18] MEDS ORDERED: METHYLPREDNISOLONE 125 MG VIAL IV STA (23:38)
[2017-06-18] MEDS ORDERED: ALBUT/IPRATROP 3MG/0.5MG NEB 3 ML VIAL INH ONE (23:45)
[2017-06-18] MEDS ORDERED: SODIUM CHLORIDE 0.9% 1000ML 1,000 ML IV ONE (23:45)
[2017-06-18 23:53] VITALS: PULSE 86; O2SAT 100
[2017-06-19] VITALS (10 sets, daily range): BP systolic 118–147; BP diastolic 68–76; PULSE 76–102; TEMP 36.6–37.3; O2SAT 94–98; Ht 160 cm; Wt 95.5 kg
[2017-06-19 00:16] LABS: BASO % 0.5 %; BASO ABS # 0.04 K/uL (0-0.2); COMPLETE YES; EOS % 4.6 %; HEMATOCRIT 31.8 % (37-47); IG% 0.1 %; LYMPH % 30.3 %; LYMPH ABS # 2.58 K/uL (1.2-3.4); MEAN CELL VOLUME 80.5 fL (80-100); MEAN CORPUSCULAR HEMOGLOBIN 25.8 pg (25-34); MEAN CORPUSCULAR HGB CONC 32.1 g/dl (32-36); MEAN PLATELET VOLUME 8.7 fL (7.4-10.4); MONO % 10.8 %; NEUT % 53.7 %; PLATELET COUNT 333 K/uL (130-400); RED BLOOD COUNT 3.95 M/uL (4.2-5.4); WHITE BLOOD COUNT 8.52 K/uL (4.8-10.8)
[2017-06-19] MEDS ORDERED: ALBINS INH (00:36)
[2017-06-19] MEDS ORDERED: ARFO15NE INH (00:38)
[2017-06-19] MEDS ORDERED: PLMINSR5 INH (00:39)
[2017-06-19 00:48] LABS: VEN BLOOD GAS BASE EXCESS 5.9 mEq/L; VENOUS BLOOD GAS PCO2 44 mmHg (38.0-50.0); VENOUS BLOOD GAS PO2 29 mmHg
[2017-06-19 00:51] LABS: VEN BLD GAS O2 SATURATION < 60.0 %
[2017-06-19 01:13] LABS: ALB/GLOB RATIO 1.2 (0.9-2); ALKALINE PHOSPHATASE 86 U/L (45-117); ALT/SGPT 27 U/L (12-78); BLOOD UREA NITROGEN 16 mg/dl (7-18); BUN/CREATININE RATIO 19.4 (10-20); CALCIUM 9.6 mg/dl (8.5-10.1); CARBON DIOXIDE 28 mmol/L (21-32); CHLORIDE 103 mmol/L (98-107); CREATININE 0.82 mg/dl (0.60-1.20); GLUCOSE 138 mg/dl (70-99); SODIUM 141 mmol/L (136-145)
[2017-06-19 01:24] LABS: URINE APPEARANCE CLEAR (CLEAR); URINE BILIRUBIN NEG (NEG); URINE COLOR YELLOW; URINE NITRITE NEG (NEG); URINE PH 6.5 (4.5-7.5); URINE SPECIFIC GRAVITY 1.014 (1.000-1.030); UROBILINOGEN NEG (NEG); ZZUR CULT IF INDIC CLEAN CATCH NO
[2017-06-19 01:27] LABS: MANUAL MICROSCOPIC REQUIRED? NO; REVIEW REQ? NO
[2017-06-19 02:05] LABS: INR 1.1 (0.9-1.1); PARTIAL THROMBOPLASTIN RATIO 1.2
[2017-06-19 02:27] LABS: POTASSIUM 3.3 mmol/L (3.5-5.1)
[2017-06-19 02:32] LABS: MAGNESIUM 1.6 mg/dl (1.8-2.4)
[2017-06-19] MEDS ORDERED: ALUMINUM/MAGNESIUM/SIMETH (MAALOX MAX) 30 ML UDC PO PRN (04:00)
[2017-06-19] MEDS ORDERED: ALBUTEROL 0.083% NEBU SOLN 3 ML VIAL INH PRN (04:00)
[2017-06-19] MEDS ORDERED: POLYETHYLENE (MIRALAX) 17 GM PACK PO PRN (04:00)
[2017-06-19] MEDS ORDERED: ACETAMINOPHEN 325 MG TAB PO PRN (04:00)
[2017-06-19] MEDS ORDERED: ONDANSETRON INJ 2 MG/ML 2 ML VIAL IV PRN (04:00)
[2017-06-19] MEDS ORDERED: ENOXAPARIN 40 MG/0.4 ML SYR SQ SCH (04:00)
[2017-06-19] MEDS ORDERED: CLONAZEPAM 0.5 MG TAB PO PRN (04:00)
[2017-06-19] MEDS ORDERED: LEVALBUTEROL/IPRATROPIUM NEB INH SCH (04:00)
[2017-06-19] MEDS ORDERED: MAGNESIUM HYDROXIDE SUSP 30 ML UDC PO PRN (04:00)
[2017-06-19] MEDS ORDERED: IV FLUIDS COMPLETED PRN (04:15)
--- NOTE | 2017-06-19 04:19 | History and Physical ---
History & Physical Date & Time of Service: Jun 19, 2017 at 03:57 Chief Complaint: Shortness Of Breath Primary Care Physician: Owen Lucas MD History of Present Illness Source: patient 71 year old female with a history of COPD, who presents for shortness of breath. The patient states she has been short of breath with exertion for 5 days. She has had a dry cough and wheezing. She denies chest pain, palpitations, orthopnea, or worsening leg swelling. Continues to wear her baseline 2 L O2 She states she has felt feverish with chills but no sweats. Her appetite has been poor. She denies nausea, vomiting. She has had 1 day of diarrhea. She denies urinary symptoms. In the ED she was treated with Duoneb and given a dose of Solu-Medrol. She did not want to go home so decision was made to admit the patient. Past Medical/Surgical History Medical Problems: (1) Acid reflux Status: Chronic (3) COPD (chronic obstructive pulmonary disease) Status: Chronic (4) Meningitis Status: Resolved (5) Ovarian cancer Status: Resolved ?CHF (congestive heart failure)? Status: Negative per echocardiogram Family History No pertient family history secondary to age Social History Smoking Status: Former Smoker (quit 5 years ago) Smokeless Tobacco Use: No Alcohol Use: none Drug Use: none Housing status: lives with family Occupational Status: retired Immunizations History of Influenza Vaccine: Yes History of Tetanus Vaccine?: Yes History of Pneumococcal: Yes History of Hepatitis B Vaccine: Unknown Multi-Drug Resistant Organisms History of MDRO: No Allergies Coded Allergies: Rabies Vaccine (Verified Allergy, Severe, HIVES, 06/19/17) Ragweed (Verified Allergy, Unknown, UNKNOWN, 06/19/17) Tomato (Verified Allergy, Unknown, HIVES, 06/19/17) Home Medications Scheduled Arformoterol Tartrate (Brovana), 15 MCG INH BID Budesonide (Pulmicort Respules 0.5MG/2ML), 0.5 MG INH BID Calcium Carbonate-Cholecalcife (Oyster Shell Calcium + D), 1 TAB PO QAM Cholecalciferol (Vitamin D 400 Iu), 400 INTER.UNIT PO QAM Fluticasone Propionate (Nasal) (Flonase Allergy Relief), 1 SPRAY NANCY DAILY Furosemide (Lasix), 40 MG PO QAM Levothyroxine Sodium (Synthroid), 25 MCG PO QAM Meloxicam (Meloxicam), 7.5 MG PO BID Metformin Hcl (Glucophage), 1,000 MG PO BID Mirtazapine (Remeron), 45 MG PO HS Mometasone Furoate-Formoterol (Dulera 200/5 Mcg), 1 PUFF INH BID Montelukast Sodium (Singulair), 10 MG PO HS Multiple Vitamins W/ Iron (Multi Vitamin with Iron), 1 TAB PO QAM Nortriptyline (Pamelor), 10 MG PO HS Potassium Chloride (Klor-Con M20), 20 MEQ PO BID Prednisone (Prednisone), 20 MG PO DAILY Quetiapine Fumarate (Seroquel), 400 MG PO HS Ranitidine Hcl (Zantac), 150 MG PO BID Rivaroxaban (Xarelto), 20 MG PO QAM Theophylline (Rohit-24), 1 CAP PO QAM Tiotropium [place] (Spiriva Handihaler), 1 CAP INH DAILY Scheduled PRN Albuterol Sulf (Albuterol Sulfate), 2.5 MG INH Q4 PRN for Shortness of Breath Clonazepam (Clonazepam), 0.5 MG PO Q12H PRN for Anxiety/Agitation Review of Systems A 10 point review of systems was negative unless stated above. Physical Exam Vital Signs Date Time Temp Pulse Resp B/P (MAP) Pulse Ox O2 Delivery O2 Flow Rate FiO2 06/19/17 03:31 138/86 06/19/17 03:27 99 06/19/17 03:07 102 20 95 Nasal Cannula 2.0 06/19/17 03:01 121/74 06/19/17 02:37 103 19 95 Nasal Cannula 2.0 06/19/17 02:31 141/77 06/19/17 02:07 104 21 96 Nasal Cannula 2.0 06/19/17 02:01 141/77 06/19/17 01:37 103 20 97 Nasal Cannula 2.0 06/19/17 01:31 149/99 06/19/17 01:07 105 18 99 Nasal Cannula 2.0 06/19/17 01:02 168/88 06/19/17 00:31 189/89 06/19/17 00:14 84 14 100 Nasal Cannula 2.0 06/19/17 00:01 133/73 06/18/17 23:53 86 20 100 Nasal Cannula 2.0 06/18/17 23:44 82 18 100 Nasal Cannula 2.0 06/18/17 23:31 132/102 06/18/17 23:25 88 06/18/17 23:15 147/73 06/18/17 23:14 100 Nasal Cannula 2.0 06/18/17 23:14 36.7 90 24 147/73 100 Nasal Cannula 2.0 06/18/17 23:14 100 Nasal Cannula 2.0 General Appearance: WD/WN, no apparent distress, + obese Head: normocephalic, atraumatic Eyes: normal inspection, EOMI ENT: hearing grossly normal, pharynx normal Neck: supple, no adenopathy, no JVD Respiratory/Chest: + pertinent finding (trace end-expiratory wheezing) Cardiovascular: regular rate, rhythm, no gallop, no murmur Abdomen/GI: normal bowel sounds, non tender, soft Back: no CVA tenderness, no muscle spasm Extremities/Musculoskelatal: no calf tenderness, no pedal edema Neurologic/Psych: alert, normal mood/affect, oriented x 3 Skin: normal color, warm/dry, no rash Lymphatic: no adenopathy Diagnostics Laboratory Results Results Past 24 Hours Test 06/19/17 00:04 06/19/17 00:10 06/19/17 00:12 06/19/17 01:00 Range/Units White Blood Count 8.52 4.8-10.8 K/uL Red Blood Count 3.95 4.2-5.4 M/uL Hemoglobin 10.2 12.0-16.0 g/dL Hematocrit 31.8 37-47 % Mean Corpuscular Volume 80.5 80-100 fL Mean Corpuscular Hemoglobin 25.8 25-34 pg Mean Corpuscular Hemoglobin Concent 32.1 32-36 g/dl Platelet Count 333 130-400 K/uL Mean Platelet Volume 8.7 7.4-10.4 fL Neutrophils (%) (Auto) 53.7 % Lymphocytes (%) (Auto) 30.3 % Monocytes (%) (Auto) 10.8 % Eosinophils (%) (Auto) 4.6 % Basophils (%) (Auto) 0.5 % Neutrophils # (Auto) 4.58 1.4-6.5 K/uL Lymphocytes # (Auto) 2.58 1.2-3.4 K/uL Monocytes # (Auto) 0.92 0.11-0.59 K/uL Eosinophils # (Auto) 0.39 0-0.5 K/uL Basophils # (Auto) 0.04 0-0.2 K/uL RDW Standard Deviation 47.9 36.4-46.3 fL RDW Coefficient of Variation 16.3 11.5-14.5 % Immature Granulocyte % (Auto) 0.1 % Immature Granulocyte # (Auto) 0.01 0.00-0.02 K/uL Venous Blood pH 7.46 7.36-7.41 Venous Blood Partial Pressure CO2 44 38.0-50.0 mmHg Venous Blood Partial Pressure O2 29 mmHg Venous Blood HCO3 30 mmol/L Venous Blood Oxygen Saturation < 60.0 % Venous Blood Base Excess 5.9 mEq/L Sodium Level 141 136-145 mmol/L Potassium Level 3.5-5.1 mmol/L Chloride Level 103 98-107 mmol/L Carbon Dioxide Level 28 21-32 mmol/L Anion Gap 10.0 3-11 mmol/L Blood Urea Nitrogen 16 7-18 mg/dl Creatinine 0.82 0.60-1.20 mg/dl Est Creatinine Clear Calc Drug Dose 68.2 ml/min Estimated GFR () 82.9 Estimated GFR (Non- 71.5 BUN/Creatinine Ratio 19.4 10-20 Random Glucose 138 70-99 mg/dl Calcium Level 9.6 8.5-10.1 mg/dl Magnesium Level 1.8-2.4 mg/dl Total Bilirubin 0.3 0.2-1 mg/dl Aspartate Amino Transf (AST/SGOT) 15-37 U/L Alanine Aminotransferase (ALT/SGPT) 27 12-78 U/L Alkaline Phosphatase 86 45-117 U/L Total Protein 6.2 6.4-8.2 gm/dl Albumin 3.4 3.4-5.0 gm/dl Globulin 2.8 2.5-4.0 gm/dl Albumin/Globulin Ratio 1.2 0.9-2 Lipase 283 73-393 U/L Thyroid Stimulating Hormone (TSH) 2.260 0.300-4.500 uIu/ml Influenza Type A Antigen Neg for Influ A NEG Influenza Type B Antigen Neg for Influ B NEG Bedside Troponin I < 0.030 0-0.045 ng/ml Urine Color YELLOW Urine Appearance CLEAR CLEAR Urine pH 6.5 4.5-7.5 Urine Specific [place] 1.014 1.000-1.030 Urine Protein NEG NEG Urine Glucose (UA) NEG NEG Urine Ketones NEG NEG Urine Occult Blood NEG NEG Urine Nitrite NEG NEG Urine Bilirubin NEG NEG Urine Urobilinogen NEG NEG Urine Leukocyte Esterase NEG NEG Test 06/19/17 01:42 Range/Units Prothrombin Time 12.0 9.0-12.0 SECONDS Prothromb Time International Ratio 1.1 0.9-1.1 Activated Partial Thromboplast Time 30.9 21.0-31.0 SECONDS Partial Thromboplastin Ratio 1.2 Potassium Level 3.3 3.5-5.1 mmol/L Magnesium Level 1.6 1.8-2.4 mg/dl Aspartate Amino Transf (AST/SGOT) 14 15-37 U/L CXR normal Impression Assessment and Plan 71 year old female with mild COPD exacerbation. She arrives on her baseline O2 needs. Our plan for her is as follows: Mild COPD exacerbation - Xopenex/Atrovent nebulizers - Continue Pulmicort Nebulizers - Continue Brovana - Continue Spiriva - Continue Dulera - Continue Montelukast - 125 mg Solu-Medrol given in the ED; at this point, her exacerbation is so mild I would avoid additional steroids - 1 mg MgSulfate Hypomagnesemia - 1 mg MagSulfate Hypokalemia - Continue Daily Potassium supplementation - Monitor K daily - In the setting of Atrial Fibrillation; will give 40 mEq KCl to try and bring K up to 4.0 Type 2 DM - Hold Metformin - Sliding Scale Depression/Anxiety - Continue Nortriptyline - Continue Klonazepam Hypothyroidism - Continue Levothyroxine GERD - Continue Ranitidine Insomnia - Remeron - Continue Seroquel History of Afib - Continue Xarelto - Rate controlled at this time Lower Extremity Edema - Chronic; currently stable - Continue Lasix - Echo from September 14/2017; she had a normal EF and no mention of diastolic dysfunction DVT Prophylaxis - SCD Knee, GABI Hose - Xarelto Code Status - Level I Full Code Disposition - Med/Surg - OT and PT evaluations Attending Addendum: I have physically seen and examined this patient, have directed the resident's medical activities, and agree with the H&P as noted above with the following exceptions as noted. The patient is awake, alert and oriented 3, well-developed and well-nourished , normocephalic and atraumatic, lying in bed and in mild distress. HEENT--PERRL, EOMI, mucous membranes and oropharynx dry. Neck--supple, no JVD or bruits, thyroid normal, trachea midline, no adenopathy. Heart--normal S1 and S2, no extra beats, no murmurs, rubs or gallops. Lungs--few coarse breath sounds bilaterally, with scattered wheezes, no respiratory distress, no accessory muscle use. Abdomen--normal bowel sounds and soft, nontender and nondistended, no hernias or masses, no organomegaly. Extremities--no cyanosis, clubbing or edema. There are good distal pulses b/l. Dermatologic--normal skin turgor, normal color, warm and dry, no abnormal lymph nodes, no rash. Neurologic--cranial nerves II through XII grossly intact. Rheumatologic--normal range of motion, nontender, muscles and joints. Psychiatric--normal affect. Assessment and Plan: COPD exacerbation-- Continue usual meds: Montelukast, Dulera, Spiriva, Brovana. Add Pulmicort Respules 0.5 mg inhaled twice a day. Add Xopenex/Atrovent nebulizer every 6 hours while awake and every 2 hours when necessary. Patient was given Solu-Medrol 125 mg IV in the ED, but will avoid further IV steroids to prevent significant diabetes exacerbation. Atrial fibrillation/Electrolyte disturbances/hypokalemia/hypomagnesemia-- Optimize electrolytes to minimize potential for RVR Give magnesium sulfate 1 g IV. Substitute potassium orally. Continue Xarelto. Diabetes mellitus-- hold metformin. Place on Accu-Cheks before meals and at bedtime with NovoLog coverage per scale. Anxiety with depression/insomnia-- Continue nortriptyline, clonazepam, Remeron and Seroquel. Hypothyroidism--continue current dose of levothyroxine. Level of Care Med/Surg Advanced Directives Existing Advance Directive: No Existing Living Will: No Existing Power of Slip Injector And Applicator: No Resuscitation Status FULL RESUSCITATION VTE Prophylaxis VTE Risk Assessment Done? Y/N: Yes Risk Level: Moderate Given or contraindicated: Other Anticoagulation (xarelto)
[2017-06-19] MEDS ORDERED: MAGNESIUM SULFATE 1GM / D5W 1 GM in PREMIXED IN D5W 100 ML IV STA (04:21)
[2017-06-19] MEDS ORDERED: MAGNESIUM SULFATE 1GM / D5W 1 GM BAG ONE (04:44)
[2017-06-19] MEDS ORDERED: POTASSIUM CHLORIDE 10 MEQ / 100ML WTR IV ONE (04:44)
[2017-06-19] MEDS: LEVOTHYROXINE 25 MCG TAB PO SCH (06:28)
[2017-06-19] MEDS: PREMIXED WATER IV SCH ×3 (06:28→09:05)
[2017-06-19] MEDS: POTASSIUM CHLORIDE IV SCH ×3 (06:28→09:05)
[2017-06-19] MEDS ORDERED: INFLUENZA ADMINISTRATION CHARGE ONE (06:30)
[2017-06-19] MEDS ORDERED: INFLUENZA VACCINE HIGH DOSE 65+ 0.5 ML SYR IM. ONE (06:30)
[2017-06-19 06:36] LABS: HEMATOCRIT 31.5 % (37-47); MEAN CELL VOLUME 80.8 fL (80-100); MEAN CORPUSCULAR HEMOGLOBIN 25.6 pg (25-34); MEAN CORPUSCULAR HGB CONC 31.7 g/dl (32-36); MEAN PLATELET VOLUME 8.7 fL (7.4-10.4); PLATELET COUNT 315 K/uL (130-400); WHITE BLOOD COUNT 6.94 K/uL (4.8-10.8)
[2017-06-19] MEDS: BUDESONIDE 0.5 MG/2 ML VIAL (PULMICORT) INH SCH ×2 (07:09→19:02)
[2017-06-19] MEDS: ARFORMOTEROL TART 15MCG/2ML VIAL INH SCH ×2 (07:09→19:02)
[2017-06-19] MEDS: IPRATROPIUM BROMIDE NEB SOLN 0.02% 2.5 ML VIAL INH SCH ×5 (07:10→23:01)
[2017-06-19] MEDS: LEVALBUTEROL 1.25MG/0.5ML NEB INH SCH ×5 (07:10→23:02)
[2017-06-19 07:17] LABS: BUN/CREATININE RATIO 11.1 (10-20); CALCIUM 8.5 mg/dl (8.5-10.1); CREATININE 1.1 mg/dl (0.60-1.20)
[2017-06-19 07:34] LABS: BETA-HYDROXYBUTYRATE 1.04 mg/dL (0.2-2.81)
--- NOTE | 2017-06-19 07:36 | DIAGNOSTIC IMAGING REPORT ---
TWO VIEW CHEST CLINICAL HISTORY: Cough. COPD exacerbation. FINDINGS: PA and lateral chest radiographs are compared to study dated 05/05/2017. The heart is mildly enlarged and there is atherosclerotic calcification of the thoracic aorta. The pulmonary vasculature is noncongested. The main pulmonary arteries appear dilated suggesting pulmonary artery hypertension. There is minimal bibasilar atelectasis. The lungs appear hyperinflated and hyperlucent with flattening the diaphragm suggesting obstructive physiology. Chronic additional thickening is similar to previous. No airspace consolidation or pleural effusion is identified. There is no pneumothorax. The skeletal structures are osteopenic. The bony thorax appears intact. IMPRESSION: Cardiac enlargement and suspect emphysema. There is no acute cardiopulmonary abnormality. Electronically signed by: Tee Terry M.D. 06/19/2017 7:35 AM Dictated Date/Time: 06/19/2017 7:33 AM
[2017-06-19] MEDS: DULERA~ORDER AWAITING ACTION SCH ×3 (08:00→23:20)
[2017-06-19] MEDS ORDERED: ALBUT/IPRATROP 3MG/0.5MG NEB 3 ML VIAL INH SCH (08:00)
[2017-06-19] MEDS: CHOLECALCIFEROL 400 INTER.UNIT TAB PO SCH (08:00)
[2017-06-19] MEDS: CALCIUM 600MG + VIT D 400 IU TAB PO SCH (08:00)
[2017-06-19] MEDS: THEOPHYLLINE 400MG CONTROLLED REL TAB PO SCH (09:06)
[2017-06-19] MEDS: FUROSEMIDE 40 MG TAB PO SCH (09:06)
[2017-06-19] MEDS: MELOXICAM 7.5 MG TAB PO SCH ×2 (09:06→20:35)
[2017-06-19] MEDS: RANITIDINE HCL 150 MG TAB PO SCH ×2 (09:07→20:34)
[2017-06-19] MEDS: RIVAROXABAN 10 MG TAB PO SCH (09:07)
[2017-06-19] MEDS: POTASSIUM CHLORIDE 20 MEQ TABCR PO SCH ×2 (09:07→20:41)
[2017-06-19] MEDS: FLUTICASONE PROPIONATE NA SPR 16 GM BTL NAE SCH (09:09)
[2017-06-19] MEDS: TIOTROPIUM BROMIDE 5 PUFF/90 MCG INH INH SCH (09:09)
[2017-06-19] MEDS: INSULIN ASPART 100 UNITS/ML 3 ML PEN SC SCH ×4 (09:15→20:54)
[2017-06-19] MEDS ORDERED: INSULIN GLARGINE SOLOSTAR 100 UNITS/ML 3 ML PEN SC ONE (12:00)
[2017-06-19] MEDS ORDERED: NURSING VERBAL MED ORDER ONE (13:00)
[2017-06-19] MEDS: COUGH DROP (SUGAR FREE) LOZ 24 LOZ/1 BOX PO PRN (13:12)
--- NOTE | 2017-06-19 14:35 | Progress Note ---
Subjective Date of Service: Jun 19, 2017. Subjective Pt evaluation today including: conversation w/ patient, physical exam, lab review, review of inpatient medication list Pain: no pain PO Intake: adequate Voiding: no voiding problems patient feeling well, less dyspnea but still not at baseline, dyspnea on exertion cough is dry eating and drinking normally no fever or chills discussed going home tomorrow, she agrees reviewed labs, glucose was elevated in 300's earlier, gave Lantus, sugars below 200 now Problem List Medical Problems: (1) Acute exacerbation of chronic obstructive pulmonary disease Status: Acute (2) Anemia Status: Acute (3) COPD exacerbation Status: Acute (4) COPD exacerbation Status: Acute (5) COPD exacerbation Status: Acute (6) COPD exacerbation Status: Acute (7) Hypomagnesemia Status: Acute (8) Hypoxia Status: Acute (9) Lactic acidosis Status: Acute (10) Sepsis Status: Acute Review of Systems Constitutional: + weakness, + fatigue Respiratory: + cough, + shortness of breath, + dyspnea on exertion All Other Systems: Reviewed and Negative Medications Current Inpatient Medications Medications (Trade) Dose Ordered Sig/Lulú Route Start Time Stop Time Status Last Admin Dose Admin Acetaminophen (Tylenol Tab) 650 mg Q4H PRN PO 06/19/17 04:00 07/19/17 03:59 Al Hydrox/Mg Hydrox/Simethicone (Maalox Max Susp) 15 ml Q4H PRN PO 06/19/17 04:00 07/19/17 03:59 Magnesium Hydroxide (Milk Of Magnesia Susp) 30 ml Q6H PRN PO 06/19/17 04:00 07/19/17 03:59 Polyethylene (Miralax Powder Packet) 17 gm DAILY PRN PO 06/19/17 04:00 07/19/17 03:59 Ondansetron HCl (Zofran Inj) 4 mg Q6H PRN IV 06/19/17 04:00 07/19/17 03:59 Albuterol Sulfate (Ventolin 0.083% 2.5MG/3ML Neb) 2.5 mg Q4 PRN INH 06/19/17 04:00 07/19/17 03:59 Arformoterol Tartrate (Brovana 15MCG/ 2ML Neb Soln) 15 mcg BIDR INH 06/19/17 08:00 07/19/17 07:59 06/19/17 07:09 15 MCG Cholecalciferol (Vitamin D Tab) 400 inter.unit QAM PO 06/19/17 08:00 07/19/17 08:59 Clonazepam (Klonopin Tab) 0.5 mg Q12H PRN PO 06/19/17 04:00 07/19/17 03:59 Fluticasone Propionate (Flonase Nasal [place]) 1 sprays DAILY NANCY 06/19/17 08:00 07/19/17 08:59 06/19/17 09:09 1 SPRAYS Furosemide (Lasix Tab) 40 mg QAM PO 06/19/17 08:00 07/19/17 08:59 06/19/17 09:06 40 MG Levothyroxine Sodium (Synthroid Tab) 25 mcg DAILYBB PO 06/19/17 06:30 07/19/17 06:29 06/19/17 06:28 25 MCG Meloxicam (Mobic Tab) 7.5 mg BID PO 06/19/17 08:00 07/19/17 08:59 06/19/17 09:06 7.5 MG Montelukast Sodium (Singulair Tab) 10 mg HS PO 06/19/17 21:00 07/19/17 20:59 Nortriptyline HCl (Pamelor Cap) 10 mg HS PO 06/19/17 21:00 07/19/17 20:59 Potassium Chloride (Klor-Con Tab) 20 meq BID PO 06/19/17 08:00 07/19/17 08:59 06/19/17 09:07 20 MEQ Quetiapine Fumarate (seroQUEL TAB) 400 mg HS PO 06/19/17 21:00 07/19/17 20:59 Ranitidine HCl (zANTac TAB) 150 mg BID PO 06/19/17 08:00 07/19/17 08:59 06/19/17 09:07 150 MG Rivaroxaban (Xarelto Tab) 20 mg QAM PO 06/19/17 08:00 07/19/17 08:59 06/19/17 09:07 20 MG Tiotropium [place] (Spiriva Handihaler Inhaler) 1 puff DAILY INH 06/19/17 08:00 07/19/17 08:59 06/19/17 09:09 1 PUFF Calcium/Vitamin D (Caltrate Plus Tab) 1 tab QAM PO 06/19/17 08:00 07/19/17 08:59 Mirtazapine (Remeron Tab) 45 mg HS PO 06/19/17 21:00 07/19/17 20:59 Miscellaneous Information (Order Awaiting Action) 1 ea QS N/A 06/19/17 08:00 07/19/17 07:59 Insulin Aspart (novoLOG ASPART) SLIDING SCALE G... ACHS SC 06/19/17 06:30 07/19/17 06:59 06/19/17 13:07 4 UNITS Budesonide (Pulmicort Respules 0.5MG/ 2ML Neb Soln) 0.5 mg BIDR INH 06/19/17 08:00 07/19/17 07:59 06/19/17 07:09 0.5 MG Miscellaneous (Iv Fluids Completed) 1 ea PRN PRN N/A 06/19/17 04:15 06/19/18 04:14 Ipratropium [place] (Atrovent 0.02% 0.5MG/2.5ML Neb) 0.5 mg Q4R INH 06/19/17 08:00 07/19/17 07:59 06/19/17 11:23 0.5 MG Levalbuterol (Xopenex 1.25MG/ 0.5ML Neb) 1.25 mg Q4R INH 06/19/17 08:00 07/19/17 07:59 06/19/17 11:23 1.25 MG Theophylline (Uniphyl Controlled Rel 24hr Tab) 400 mg DAILY PO 06/19/17 08:00 07/19/17 07:59 06/19/17 09:06 400 MG Prednisone (PredniSONE TAB) 20 mg DAILY PO 06/20/17 08:00 07/20/17 07:59 Menthol (Nice Kena) 1 kena PRN PRN PO 06/19/17 13:15 07/19/17 13:14 06/19/17 13:12 1 KENA Objective Vital Signs Date Time Temp Pulse Resp B/P (MAP) Pulse Ox O2 Delivery O2 Flow Rate FiO2 06/19/17 11:24 76 18 97 Nasal Cannula 2.0 06/19/17 08:00 Nasal Cannula 2.0 06/19/17 07:50 36.6 97 18 147/68 (94) 94 06/19/17 07:09 92 18 96 Nasal Cannula 2.0 06/19/17 05:00 36.8 102 18 118/73 96 Nasal Cannula 2.0 06/19/17 04:41 95 19 96 Nasal Cannula 2.0 06/19/17 04:31 142/87 06/19/17 04:11 93 15 96 Nasal Cannula 2.0 06/19/17 04:06 96 23 95 Nasal Cannula 2.0 06/19/17 04:01 136/85 06/19/17 03:36 97 18 94 Nasal Cannula 2.0 06/19/17 03:31 138/86 06/19/17 03:27 99 06/19/17 03:07 102 20 95 Nasal Cannula 2.0 06/19/17 03:01 121/74 06/19/17 02:37 103 19 95 Nasal Cannula 2.0 06/19/17 02:31 141/77 06/19/17 02:07 104 21 96 Nasal Cannula 2.0 06/19/17 02:01 141/77 06/19/17 01:37 103 20 97 Nasal Cannula 2.0 06/19/17 01:31 149/99 06/19/17 01:07 105 18 99 Nasal Cannula 2.0 06/19/17 01:02 168/88 06/19/17 00:31 189/89 06/19/17 00:14 84 14 100 Nasal Cannula 2.0 06/19/17 00:01 133/73 06/18/17 23:53 86 20 100 Nasal Cannula 2.0 06/18/17 23:44 82 18 100 Nasal Cannula 2.0 06/18/17 23:31 132/102 06/18/17 23:25 88 06/18/17 23:15 147/73 06/18/17 23:14 100 Nasal Cannula 2.0 06/18/17 23:14 36.7 90 24 147/73 100 Nasal Cannula 2.0 06/18/17 23:14 100 Nasal Cannula 2.0 Physical Exam General Appearance: no apparent distress, + obese Eyes: normal inspection, EOMI, sclerae normal ENT: normal ENT inspection, hearing grossly normal, pharynx normal Neck: supple, no adenopathy, no JVD, trachea midline Respiratory/Chest: chest non-tender, no respiratory distress, no accessory muscle use, + decreased breath sounds, + pertinent finding (end expiratory auditory wheeze, no wheezing heard on auscultation) Cardiovascular: regular rate, rhythm, no edema, no gallop, no JVD, no murmur Abdomen: normal bowel sounds, non tender, soft, no organomegaly Extremities: normal range of motion, non-tender, normal inspection, no pedal edema, no calf tenderness, pelvis stable Neurologic/Psychiatric: 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, alert, normal mood/affect, oriented x 3, + motor weakness (generalized) Skin: normal color, warm/dry, no rash Laboratory Results Last 24 Hours Test 06/19/17 00:04 06/19/17 00:10 06/19/17 00:12 06/19/17 01:00 White Blood Count 8.52 K/uL Red Blood Count 3.95 M/uL Hemoglobin 10.2 g/dL Hematocrit 31.8 % Mean Corpuscular Volume 80.5 fL Mean Corpuscular Hemoglobin 25.8 pg Mean Corpuscular Hemoglobin Concent 32.1 g/dl Platelet Count 333 K/uL Mean Platelet Volume 8.7 fL Neutrophils (%) (Auto) 53.7 % Lymphocytes (%) (Auto) 30.3 % Monocytes (%) (Auto) 10.8 % Eosinophils (%) (Auto) 4.6 % Basophils (%) (Auto) 0.5 % Neutrophils # (Auto) 4.58 K/uL Lymphocytes # (Auto) 2.58 K/uL Monocytes # (Auto) 0.92 K/uL Eosinophils # (Auto) 0.39 K/uL Basophils # (Auto) 0.04 K/uL RDW Standard Deviation 47.9 fL RDW Coefficient of Variation 16.3 % Immature Granulocyte % (Auto) 0.1 % Immature Granulocyte # (Auto) 0.01 K/uL Venous Blood pH 7.46 Venous Blood Partial Pressure CO2 44 mmHg Venous Blood Partial Pressure O2 29 mmHg Venous Blood HCO3 30 mmol/L Venous Blood Oxygen Saturation < 60.0 % Venous Blood Base Excess 5.9 mEq/L Sodium Level 141 mmol/L Potassium Level mmol/L Chloride Level 103 mmol/L Carbon Dioxide Level 28 mmol/L Anion Gap 10.0 mmol/L Blood Urea Nitrogen 16 mg/dl Creatinine 0.82 mg/dl Est Creatinine Clear Calc Drug Dose 68.2 ml/min Estimated GFR () 82.9 Estimated GFR (Non- 71.5 BUN/Creatinine Ratio 19.4 Random Glucose 138 mg/dl Calcium Level 9.6 mg/dl Magnesium Level mg/dl Total Bilirubin 0.3 mg/dl Aspartate Amino Transf (AST/SGOT) U/L Alanine Aminotransferase (ALT/SGPT) 27 U/L Alkaline Phosphatase 86 U/L Total Protein 6.2 gm/dl Albumin 3.4 gm/dl Globulin 2.8 gm/dl Albumin/Globulin Ratio 1.2 Lipase 283 U/L Thyroid Stimulating Hormone (TSH) 2.260 uIu/ml Influenza Type A Antigen Neg for Influ A Influenza Type B Antigen Neg for Influ B Bedside Troponin I < 0.030 ng/ml Urine Color YELLOW Urine Appearance CLEAR Urine pH 6.5 Urine Specific [place] 1.014 Urine Protein NEG Urine Glucose (UA) NEG Urine Ketones NEG Urine Occult Blood NEG Urine Nitrite NEG Urine Bilirubin NEG Urine Urobilinogen NEG Urine Leukocyte Esterase NEG Test 06/19/17 01:42 06/19/17 05:20 06/19/17 05:54 06/19/17 06:16 Prothrombin Time 12.0 SECONDS Prothromb Time International Ratio 1.1 Activated Partial Thromboplast Time 30.9 SECONDS Partial Thromboplastin Ratio 1.2 Potassium Level 3.3 mmol/L 4.0 mmol/L Magnesium Level 1.6 mg/dl Aspartate Amino Transf (AST/SGOT) 14 U/L Bedside Glucose 276 mg/dl Theophylline Level 4 mcg/ml White Blood Count 6.94 K/uL Red Blood Count 3.90 M/uL Hemoglobin 10.0 g/dL Hematocrit 31.5 % Mean Corpuscular Volume 80.8 fL Mean Corpuscular Hemoglobin 25.6 pg Mean Corpuscular Hemoglobin Concent 31.7 g/dl RDW Standard Deviation 48.0 fL RDW Coefficient of Variation 16.3 % Platelet Count 315 K/uL Mean Platelet Volume 8.7 fL Sodium Level 139 mmol/L Chloride Level 103 mmol/L Carbon Dioxide Level 25 mmol/L Anion Gap 11.0 mmol/L Blood Urea Nitrogen 12 mg/dl Creatinine 1.10 mg/dl Est Creatinine Clear Calc Drug Dose 50.8 ml/min Estimated GFR () 58.1 Estimated GFR (Non- 50.1 BUN/Creatinine Ratio 11.1 Random Glucose 325 mg/dl Calcium Level 8.5 mg/dl Beta-Hydroxybutyric Acid 1.04 mg/dL Test 06/19/17 07:41 Bedside Glucose 303 mg/dl Assessment and Plan 71 year old female with COPD exacerbation. She arrives on her baseline O2 needs so no hypoxia, just increased dyspnea and dry cough, no signs of purulence COPD exacerbation: no wheezing on exam, but still weak and dyspneic, no acute hypoxia continue nebulizers Prednisone 20mg PO daily no need for antibiotics as there is no purulence continue Brovana, Spiriva, Dulera, Montelukast Hypomagnesemia - 1gm IV given in ED, will repeat tomorrow Hypokalemia - resolved, K is 4.0 today, will recheck tomorrow Type 2 DM - hyperglycemia due to steroids - will give Lantus 10 units qAM with Prednisone, Novolog coverage, hold oral agents, diabetic diet Depression/Anxiety - Continue Nortriptyline - Continue Klonazepam Hypothyroidism - Continue Levothyroxine GERD - Continue Ranitidine Insomnia - Remeron - Continue Seroquel History of Afib - Continue Xarelto - Rate controlled at this time Lower Extremity Edema - Chronic; currently stable - Continue Lasix - Echo from September 14/2017; she had a normal EF and no mention of diastolic dysfunction DVT Prophylaxis - SCD GABI Qiu - Xarelto Code Status - Level I Full Code Disposition - likely home tomorrow
[2017-06-19] MEDS ORDERED: QUETIAPINE FUMARATE 200 MG TAB PO SCH (21:00)
[2017-06-19] MEDS ORDERED: MONTELUKAST SOD 10 MG TAB PO SCH (21:00)
[2017-06-19] MEDS ORDERED: MIRTAZAPINE TAB 15 MG TAB PO SCH (21:00)
[2017-06-19] MEDS ORDERED: NORTRIPTYLINE HCL 10 MG CAP PO SCH (21:00)
[2017-06-20] VITALS (8 sets, daily range): BP systolic 127–146; BP diastolic 76–82; PULSE 71–109; TEMP 36.4–37.1; O2SAT 90–100
[2017-06-20] MEDS: LEVALBUTEROL 1.25MG/0.5ML NEB INH SCH ×5 (01:55→18:53)
[2017-06-20] MEDS: IPRATROPIUM BROMIDE NEB SOLN 0.02% 2.5 ML VIAL INH SCH ×5 (01:55→18:53)
--- NOTE | 2017-06-20 05:51 | EMERGENCY ROOM VISIT NOTE ---
History First contact with patient: 23:34 Chief Complaint: SHORTNESS OF BREATH Stated Complaint: COPD EXACERBATION Nursing Triage Summary: Pt arrived via [facility] from home. Per pt, she has been having SOB since 0700 today. Saw PCP this afternoon for symptoms and told to continue to use home medications. Pt states she "just can't catch her breath" and her "ribs are sore". Denies chest pain. Hx of COPD. Wears 2L oxygen all the time at home. Lungs diminished throughout. History of Present Illness The patient is a 71 year old female who presents to the Emergency Room with complaints of shortness of breath and difficulty breathing for roughly the past 15 hours. The patient has a long-standing history of COPD. She does wear oxygen 2 L chronically and went to her primary care physician this morning for evaluation. The patient was instructed to continue her inhalers and was not started on new medication. She states that her shortness of breath worsens with walking, but she does not have distinct chest pain. She does have some rib pain with her cough. She does not report fever at home. No nausea or vomiting. She rates her overall discomfort a 7/10. Review of Systems More than 10 systems were reviewed and otherwise negative with the exception of history of present illness. Past Medical/Surgical History Medical Problems: (1) Acid reflux (2) Acut on chronic CHF exacerbation (3) Acute respiratory failure with hypoxia (4) CHF (congestive heart failure) (5) COPD (chronic obstructive pulmonary disease) (6) COPD exacerbation (7) Hypoxia (8) icd 10 code J44.9 (9) icd 10 code J44.9 (10) Meningitis (11) Ovarian cancer Family History No pertient family history secondary to age Social History Smoking Status: Former Smoker Smokeless Tobacco Use: No Alcohol Use: none Drug Use: none Housing Status: lives with family Occupation Status: retired Current/Historical Medications Scheduled Arformoterol Tartrate (Brovana), 15 MCG INH BID Budesonide (Pulmicort Respules 0.5MG/2ML), 0.5 MG INH BID Calcium Carbonate-Cholecalcife (Oyster Shell Calcium + D), 1 TAB PO QAM Cholecalciferol (Vitamin D 400 Iu), 400 INTER.UNIT PO QAM Fluticasone Propionate (Nasal) (Flonase Allergy Relief), 1 SPRAY NANCY DAILY Furosemide (Lasix), 40 MG PO QAM Levothyroxine Sodium (Synthroid), 25 MCG PO QAM Meloxicam (Meloxicam), 7.5 MG PO BID Metformin Hcl (Glucophage), 1,000 MG PO BID Mirtazapine (Remeron), 45 MG PO HS Mometasone Furoate-Formoterol (Dulera 200/5 Mcg), 1 PUFF INH BID Montelukast Sodium (Singulair), 10 MG PO HS Multiple Vitamins W/ Iron (Multi Vitamin with Iron), 1 TAB PO QAM Nortriptyline (Pamelor), 10 MG PO HS Potassium Chloride (Klor-Con M20), 20 MEQ PO BID Quetiapine Fumarate (Seroquel), 400 MG PO HS Ranitidine Hcl (Zantac), 150 MG PO BID Rivaroxaban (Xarelto), 20 MG PO QAM Theophylline (Rohit-24), 1 CAP PO QAM Tiotropium [place] (Spiriva Handihaler), 1 CAP INH DAILY Scheduled PRN Albuterol Sulf (Albuterol Sulfate), 2.5 MG INH Q4 PRN for Shortness of Breath Clonazepam (Clonazepam), 0.5 MG PO Q12H PRN for Anxiety/Agitation Physical Exam Vital Signs Date Time Temp Pulse Resp B/P (MAP) Pulse Ox O2 Delivery O2 Flow Rate FiO2 06/19/17 03:36 97 18 94 Nasal Cannula 2.0 06/19/17 03:31 138/86 06/19/17 03:27 99 06/19/17 03:07 102 20 95 Nasal Cannula 2.0 06/19/17 03:01 121/74 06/19/17 02:37 103 19 95 Nasal Cannula 2.0 06/19/17 02:31 141/77 06/19/17 02:07 104 21 96 Nasal Cannula 2.0 06/19/17 02:01 141/77 06/19/17 01:37 103 20 97 Nasal Cannula 2.0 06/19/17 01:31 149/99 06/19/17 01:07 105 18 99 Nasal Cannula 2.0 06/19/17 01:02 168/88 06/19/17 00:31 189/89 06/19/17 00:14 84 14 100 Nasal Cannula 2.0 06/19/17 00:01 133/73 06/18/17 23:53 86 20 100 Nasal Cannula 2.0 06/18/17 23:44 82 18 100 Nasal Cannula 2.0 06/18/17 23:31 132/102 06/18/17 23:25 88 06/18/17 23:15 147/73 06/18/17 23:14 100 Nasal Cannula 2.0 06/18/17 23:14 36.7 90 24 147/73 100 Nasal Cannula 2.0 06/18/17 23:14 100 Nasal Cannula 2.0 Pain Rating (0-10): 0.0 Physical Exam VITALS: Vitals are noted on the nurse's note and reviewed by myself. Vital signs stable. GENERAL: Ill appearing white female who is speaking in short sentences secondary to her shortness of breath. She is cooperative with the examination. HEART: Regular rate and rhythm without murmurs gallops or rubs. LUNGS: Very distant breath sounds bilateral with scattered end expiratory wheezing ABDOMEN: Positive normal bowel sounds x 4. Soft, nontender, without masses or organomegaly. No guarding or rebound tenderness. MUSCULOSKELETAL: No muscle atrophy, erythema, or edema noted. Full range of motion without joint tenderness in all extremities. NEURO: Patient was alert and oriented to person place and time. CN II through XII grossly intact. Medical Decision & Procedures ER Provider Diagnostic Interpretation: TWO VIEW CHEST CLINICAL HISTORY: Cough. COPD exacerbation. FINDINGS: PA and lateral chest radiographs are compared to study dated 05/05/2017. The heart is mildly enlarged and there is atherosclerotic calcification of the thoracic aorta. The pulmonary vasculature is noncongested. The main pulmonary arteries appear dilated suggesting pulmonary artery hypertension. There is minimal bibasilar atelectasis. The lungs appear hyperinflated and hyperlucent with flattening the diaphragm suggesting obstructive physiology. Chronic additional thickening is similar to previous. No airspace consolidation or pleural effusion is identified. There is no pneumothorax. The skeletal structures are osteopenic. The bony thorax appears intact. IMPRESSION: Cardiac enlargement and suspect emphysema. There is no acute cardiopulmonary abnormality. Laboratory Results Test 06/19/17 00:04 06/19/17 00:10 06/19/17 00:12 06/19/17 01:00 Immature Granulocyte % (Auto) 0.1 % White Blood Count 8.52 K/uL (4.8-10.8) Red Blood Count 3.95 M/uL (4.2-5.4) Hemoglobin 10.2 g/dL (12.0-16.0) Hematocrit 31.8 % (37-47) Mean Corpuscular Volume 80.5 fL (80-100) Mean Corpuscular Hemoglobin 25.8 pg (25-34) Mean Corpuscular Hemoglobin Concent 32.1 g/dl (32-36) Platelet Count 333 K/uL (130-400) Mean Platelet Volume 8.7 fL (7.4-10.4) Neutrophils (%) (Auto) 53.7 % Lymphocytes (%) (Auto) 30.3 % Monocytes (%) (Auto) 10.8 % Eosinophils (%) (Auto) 4.6 % Basophils (%) (Auto) 0.5 % Neutrophils # (Auto) 4.58 K/uL (1.4-6.5) Lymphocytes # (Auto) 2.58 K/uL (1.2-3.4) Monocytes # (Auto) 0.92 K/uL (0.11-0.59) Eosinophils # (Auto) 0.39 K/uL (0-0.5) Basophils # (Auto) 0.04 K/uL (0-0.2) Immature Granulocyte # (Auto) 0.01 K/uL (0.00-0.02) Venous Blood pH 7.46 (7.36-7.41) Venous Blood Partial Pressure CO2 44 mmHg (38.0-50.0) Venous Blood Partial Pressure O2 29 mmHg Venous Blood HCO3 30 mmol/L Venous Blood Oxygen Saturation < 60.0 % Venous Blood Base Excess 5.9 mEq/L Total Bilirubin 0.3 mg/dl (0.2-1) Alanine Aminotransferase (ALT/SGPT) 27 U/L (12-78) Alkaline Phosphatase 86 U/L (45-117) Total Protein 6.2 gm/dl (6.4-8.2) Albumin 3.4 gm/dl (3.4-5.0) Globulin 2.8 gm/dl (2.5-4.0) Albumin/Globulin Ratio 1.2 (0.9-2) Lipase 283 U/L (73-393) Thyroid Stimulating Hormone (TSH) 2.260 uIu/ml (0.300-4.500) Influenza Type A Antigen Neg for Influ A (NEG) Influenza Type B Antigen Neg for Influ B (NEG) Bedside Troponin I < 0.030 ng/ml (0-0.045) Urine Color YELLOW Urine Appearance CLEAR (CLEAR) Urine pH 6.5 (4.5-7.5) Urine Specific [place] 1.014 (1.000-1.030) Urine Protein NEG (NEG) Urine Glucose (UA) NEG (NEG) Urine Ketones NEG (NEG) Urine Occult Blood NEG (NEG) Urine Nitrite NEG (NEG) Urine Bilirubin NEG (NEG) Urine Urobilinogen NEG (NEG) Urine Leukocyte Esterase NEG (NEG) Test 06/19/17 01:42 Prothrombin Time 12.0 SECONDS (9.0-12.0) Prothromb Time International Ratio 1.1 (0.9-1.1) Activated Partial Thromboplast Time 30.9 SECONDS (21.0-31.0) Partial Thromboplastin Ratio 1.2 Magnesium Level 1.6 mg/dl (1.8-2.4) Aspartate Amino Transf (AST/SGOT) 14 U/L (15-37) Medications Administered Medications (Trade) Dose Ordered Sig/Lulú Route Start Time Stop Time Status Last Admin Dose Admin Sodium Chloride 1,000 ml @ 999 mls/hr Q1H1M ONCE IV 06/18/17 23:45 06/19/17 00:45 DC 06/19/17 00:07 999 MLS/HR Methylprednisolone Sodium Succinate (Solu-Medrol IV) 125 mg NOW STAT IV 06/18/17 23:38 06/18/17 23:41 DC 06/19/17 00:07 125 MG Albuterol/ Ipratropium (Duoneb) 12 ml NOW ONCE INH 06/18/17 23:45 06/18/17 23:46 DC 06/18/17 23:51 12 ML ED Course Physical exam and history were performed. Nursing notes, EMR, and Medication List were personally reviewed. Patient appears to have difficulty breathing over the past one day. She has a history of COPD exacerbation and did go to her primary care physician this morning. On exam she does have distant breath sounds with scant wheezing. Her symptoms evidently are worse with exertion. IV access was established and labs were obtained. Patient was hydrated with normal saline and given IV Solu- Medrol and a one-hour DuoNeb treatment. EKG was performed and did not show evidence of ischemia. The patient's blood work is as above and was reviewed. She does not have significantly elevated white blood cell count or gross anemia, bandemia, or significant electrolyte imbalance. Blood gas was fairly normal. Chest x-ray does not show acute findings. Her troponin 1 is negative. Overall the patient did have some improvement of her symptoms after the above interventions. She appears to have a COPD exacerbation as the likely cause of her symptoms. I do not appreciate a distinct bacterial etiology at this point, however the patient does have a significant history of respiratory failure and hypoxia. The patient has not felt well to be discharged home, and the case was discussed with the on-call hospitalist who agreed to evaluate the patient here in the department. Please see their dictation for further patient course, plan , and disposition. The chart was completed utilizing [employer] Speech Voice Recognition Software. Grammatical errors, random word insertions, pronoun errors, and incomplete sentences are an occasional consequence of this system due to software limitations, ambient noise, and hardware issues. Any formal questions or concerns about the content, text, or information contained within the body of this dictation should be directly addressed to the provider for clarification. . Medical Decision Differential diagnosis: Etiologies such as infections, reactive airway disease, pneumonia, pneumothorax , COPD, CHF, cardiac ischemia, pulmonary embolism, musculoskeletal, gastrointestinal, as well as others were entertained. Impression Primary Impression: COPD exacerbation Departure Information Dispostion Still a Patient Condition FAIR Referrals Owen Lucas MD (PCP) Forms HOME CARE DOCUMENTATION FORM, IMPORTANT VISIT INFORMATION Patient Instructions [facility]
[2017-06-20] MEDS: LEVOTHYROXINE 25 MCG TAB PO SCH ×2 (05:52→06:38)
[2017-06-20] MEDS: ARFORMOTEROL TART 15MCG/2ML VIAL INH SCH ×2 (07:38→18:54)
[2017-06-20] MEDS: BUDESONIDE 0.5 MG/2 ML VIAL (PULMICORT) INH SCH ×2 (07:38→18:54)
[2017-06-20] MEDS: DULERA~ORDER AWAITING ACTION SCH ×2 (08:00→16:00)
[2017-06-20] MEDS ORDERED: INSULIN GLARGINE SOLOSTAR 100 UNITS/ML 3 ML PEN SC SCH (08:00)
[2017-06-20] MEDS: POTASSIUM CHLORIDE 20 MEQ TABCR PO SCH (09:00)
[2017-06-20] MEDS: CALCIUM 600MG + VIT D 400 IU TAB PO SCH (09:01)
[2017-06-20] MEDS: THEOPHYLLINE 400MG CONTROLLED REL TAB PO SCH (09:02)
[2017-06-20] MEDS: RIVAROXABAN 10 MG TAB PO SCH (09:02)
[2017-06-20] MEDS: FUROSEMIDE 40 MG TAB PO SCH (09:02)
[2017-06-20] MEDS: MELOXICAM 7.5 MG TAB PO SCH (09:03)
[2017-06-20] MEDS: CHOLECALCIFEROL 400 INTER.UNIT TAB PO SCH (09:03)
[2017-06-20] MEDS: RANITIDINE HCL 150 MG TAB PO SCH (09:03)
[2017-06-20] MEDS: FLUTICASONE PROPIONATE NA SPR 16 GM BTL NAE SCH (09:04)
[2017-06-20] MEDS: TIOTROPIUM BROMIDE 5 PUFF/90 MCG INH INH SCH (09:08)
[2017-06-20] MEDS: INSULIN ASPART 100 UNITS/ML 3 ML PEN SC SCH ×3 (09:11→18:48)
[2017-06-20] MEDS: COUGH DROP (SUGAR FREE) LOZ 24 LOZ/1 BOX PO PRN (12:54)
[2017-06-20] MEDS ORDERED: PRD20 PO (13:07)
--- NOTE | 2017-06-20 13:11 | Discharge Instructions ---
Discharge Instructions Date of Service Jun 20, 2017. Admission Reason for Admission: Copd Exacerbation Discharge Discharge Diagnosis / Problem: COPD exacerbation Discharge Goals Goal(s): Decrease discomfort, Improve function Activity Recommendations Activity Limitations: resume your previous activity Exercise/Sports Limitations: gradually increase as tolerated Shower/Bathe: no limitations . Instructions / Follow-Up Instructions / Follow-Up Medications: continue all prior home medications PREDNISONE: 20mg every morning for 3 more days COPD exacerbation: mild case, improved with nebulizers and Prednisone, resolving quickly Follow up with primary care physician in one week, call for appointment Current Hospital Diet Patient's current hospital diet: Diabetes Type 2 Diet, AHA Diet (Heart Healthy) Discharge Diet Recommended Diet: AHA Diet (Heart Healthy), Diabetes Type 2 Diet Pending Studies Studies pending at discharge: no Laboratory Results Hemoglobin A1c Test 04/16/17 06:09 Range/Units Estimated Average Glucose 169 mg/dl Hemoglobin A1c 7.5 H 4.5-5.6 % Medical Emergencies . Who to Call and When: Medical Emergencies: If at any time you feel your situation is an emergency, please call 911 immediately. . Non-Emergent Contact Non-Emergency issues call your: Primary Care Provider Call Non-Emergent contact if: you have any medication questions . . "Provider Documentation" section prepared by Jonatan Nj. . VTE Core Measure Inpt VTE Proph given/why not?: Other Anticoagulation (xarelto) [place] Drug Monitoring Program Search Results: no issues identified
--- NOTE | 2017-06-21 21:38 | Discharge Summary ---
Discharge Summary Date of Service Jun 20, 2017. Discharge Summary Admission Date: Jun 19, 2017 at 03:56 Discharge Date: Jun 20, 2017 Discharge Disposition: Home Principal Diagnosis: COPD exacerbation Problems/Secondary Diagnoses: Chronic hypoxic respiratory failure DM type II Hypokalemia Hypomagnesemia Immunizations: Have You Had Influenza Vaccine: Yes History of Tetanus Vaccine?: Yes History of Pneumococcal: Yes History of Hepatitis B Vaccine: Unknown Procedures: none Consultations: none Medication Reconciliation New Medications: Prednisone (Prednisone) 20 Mg Tab 20 MG PO DAILY, #3 TAB 0 Refills Continued Medications: Albuterol Sulf (Albuterol Sulfate) 2.5 Mg/3 Ml Nebu 2.5 MG INH Q4 PRN for Shortness of Breath Arformoterol Tartrate (Brovana) 15 Mcg/2 Ml Neb 15 MCG INH BID, INHALER Budesonide (Pulmicort Respules 0.5MG/2ML) 0.5 Mg/2 Ml Nebu 0.5 MG INH BID, EA Calcium Carbonate-Cholecalcife (Oyster Shell Calcium + D) 1 Tab Tab 1 TAB PO QAM Cholecalciferol (Vitamin D 400 Iu) 400 Unit Cap 400 INTER.UNIT PO QAM Clonazepam (Clonazepam) 0.5 Mg Tab 0.5 MG PO Q12H PRN for Anxiety/Agitation Fluticasone Propionate (Nasal) (Flonase Allergy Relief) 50 Mcg/Act Spr 1 SPRAY NANCY DAILY Furosemide (Lasix) 40 Mg Tab 40 MG PO QAM, TAB Levothyroxine Sodium (Synthroid) 25 Mcg Tab 25 MCG PO QAM Meloxicam (Meloxicam) 7.5 Mg Tab 7.5 MG PO BID Metformin Hcl (Glucophage) 1,000 Mg Tab 1000 MG PO BID, TAB Mirtazapine (Remeron) 45 Mg Tab 45 MG PO HS Mometasone Furoate-Formoterol (Dulera 200/5 Mcg) 1 Aer Aer 1 PUFF INH BID Montelukast Sodium (Singulair) 10 Mg Tab 10 MG PO HS Multiple Vitamins W/ Iron (Multi Vitamin with Iron) 1 Tab Tab 1 TAB PO QAM Nortriptyline (Pamelor) 10 Mg Cap 10 MG PO HS Potassium Chloride (Klor-Con M20) 20 Meq Tabcr 20 MEQ PO BID Quetiapine Fumarate (Seroquel) 400 Mg Tab 400 MG PO HS Ranitidine Hcl (Zantac) 150 Mg Tab 150 MG PO BID, TAB Rivaroxaban (Xarelto) 20 Mg Tab 20 MG PO QAM, TAB Theophylline (Rohit-24) 400 Mg Capcr 1 CAP PO QAM Tiotropium [place] (Spiriva Handihaler) 30 Puff/540 Mcg Aerp 1 CAP INH DAILY Discharge Exam patient feeling well on day of discharge, like breathing back to her baseline breathing comfortably on her home dose of oxygen no wheezing on exam, good air flow discussed plans for discharge on Prednisone, all questions answered Review of Systems: Constitutional: No fever, No chills, No sweats, No weight loss, No weakness , No fatigue, No problem reported Eyes: No worsening of vision, No eye pain, No redness, No discharge, No diplopia, No problem reported ENT: No hearing loss, No unusual epistaxis, No nasal symptoms, No sore throat, No tinnitus, No dental problems, No trouble swallowing, No problem reported Respiratory: + cough, + dyspnea on exertion, No sputum, No wheezing, No shortness of breath, No dyspnea at rest, No hemoptysis Cardiovascular: No chest pain, No orthopnea, No PND, No edema, No claudication, No palpitations, No problem reported Abdomen: No pain, No nausea, No vomiting, No diarrhea, No constipation, No GI bleeding, No problem reported Musculoskeletal: No joint pain, No muscle pain, No swelling, No calf pain, No problem reported Genitourinary - Female: No dysuria, No urinary frequency, No urinary urgency , No urinary incontinence, No urinary retention, No hematuria Neurologic: No memory loss, No paralysis, No weakness, No numbness/tingling , No vertigo, No balance problems, No problem reported Psychiatric: No depression symptoms, No anhedonism, No anxiety, No insomnia , No substance abuse, No problem reported Endocrine: No fatigue, No excessive thirst, No excessive urination, No problem reported Hematologic / Lymphatic: No abnormal bleeding/bruising, No clotting problems , No swollen lymph nodes, No night sweats, No problem reported Integumentary: No rash, No itch, No new/changing skin lesions, No color change, No bleeding, No problem reported Physical Exam: General Appearance: no apparent distress, + obese Eyes: normal inspection, EOMI, sclerae normal ENT: normal ENT inspection, hearing grossly normal, pharynx normal Neck: supple, no adenopathy, no JVD, trachea midline Respiratory/Chest: chest non-tender, lungs clear, no respiratory distress, no accessory muscle use, + decreased breath sounds Cardiovascular: regular rate, rhythm, no edema, no gallop, no JVD, no murmur , normal peripheral pulses Abdomen / GI: normal bowel sounds, non tender, soft, no organomegaly Extremities: normal inspection, no calf tenderness, normal capillary refill , no pedal edema, normal range of motion 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 She arrives on her baseline O2 needs so no hypoxia, just increased dyspnea and dry cough, no signs of purulence COPD exacerbation: no wheezing on exam, but still weak and dyspneic, no acute hypoxia continue nebulizers Prednisone 20mg PO daily for 5 days total, complete three more days on discharge no need for antibiotics as there is no purulence continue Brovana, Spiriva, Dulera, Montelukast Hypomagnesemia - 1gm IV given in ED, repeat level normal Hypokalemia - resolved, K is 4.0 on 06/19 Type 2 DM - hyperglycemia due to steroids - gave Lantus 10 units qAM with Prednisone, Novolog coverage, hold oral agents, diabetic diet Depression/Anxiety - Continue Nortriptyline - Continue Klonazepam Hypothyroidism - Continue Levothyroxine GERD - Continue Ranitidine Insomnia - Remeron - Continue Seroquel History of Afib - Continue Xarelto - Rate controlled at this time Lower Extremity Edema - Chronic; currently stable - Continue Lasix - Echo from September 14/2017; she had a normal EF and no mention of diastolic dysfunction DVT Prophylaxis - SCD Knee, GABI [place] - Xarelto Code Status - Level I Full Code Total Time Spent: Less than 30 minutes This includes examination of the patient, discharge planning, medication reconciliation, and communication with other providers. Discharge Instructions Please refer to the electronic Patient Visit Report (Discharge Instructions) for additional information. Follow-Up PCP in one week
== END 2017-06-20 21:45 | disposition home or self-care (01) ==
LOC: EDBD 23:14 → C.EDB 23:15 → C.MS4W 06-19 03:56 → ENRESERV 06-19 04:18
PROVIDERS: ADMIT Student in an Organized Health Care Education/Training Program; ATTEND Internal Medicine
DX: J44.1 Chronic obstructive pulmonary disease with (acute) exacerbation (principal); Z99.81 Dependence on supplemental oxygen; I51.7 Cardiomegaly; K21.9 Gastro-esophageal reflux disease without esophagitis; Z85.43 Personal history of malignant neoplasm of ovary; Z87.891 Personal history of nicotine dependence; E83.42 Hypomagnesemia; E87.6 Hypokalemia; E11.9 Type 2 diabetes mellitus without complications; Z79.84 Long term (current) use of oral hypoglycemic drugs; F41.9 Anxiety disorder, unspecified; E03.9 Hypothyroidism, unspecified; G47.00 Insomnia, unspecified; I48.91 Unspecified atrial fibrillation; Z79.01 Long term (current) use of anticoagulants; R60.0 Localized edema

== ENCOUNTER 2017-07-27 14:50 | Inpatient (IN) | payer OTHER ==
[~2017-07-27] VITALS: Ht 157.5 cm; Wt 84.8 kg
[~2017-07-27 14:50] MED LIST changes: -PLMINS INH; +PLMINSR5 INH; +PRD20 PO
[2017-07-27] MEDS ORDERED: METHYLPREDNISOLONE 125 MG VIAL IV STA (15:05)
--- NOTE | 2017-07-27 15:11 | EMERGENCY ROOM VISIT NOTE ---
History Report prepared by Rosemarieibpelon: Catie Corbin Under the Supervision of: Dr. Larry Moore D.O. First contact with patient: 14:57 Chief Complaint: RESPIRATORY PROBLEMS Stated Complaint: COUGH/RESPIRATORY History of Present Illness The patient is a 72 year old female who presents to the Emergency Room with complaints of worsening shortness of breath for the past 2 days. She was brought to the ED via EMS. She admits to a history of COPD, for which she wears 2LNC chronically. DuoNeb treatments given prior to EMS arrival and again in the field have provided minor relief. The patient states she has been feeling "crappy" for the past 2 days. She also complains of a productive cough, vomiting and diarrhea. She has not had any diarrhea yet today. The patient is a former smoker, and nursing states she quit approximately 5 years ago. 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 A total of 10 systems reviewed and were otherwise negative. Past Medical & Surgical Medical Problems: (1) Acid reflux (2) Acut on chronic CHF exacerbation (3) Acute respiratory failure with hypoxia (4) CHF (congestive heart failure) (5) COPD (chronic obstructive pulmonary disease) (6) COPD exacerbation (7) Hypoxia (8) icd 10 code J44.9 (9) icd 10 code J44.9 (10) Meningitis (11) Ovarian cancer Family History No pertient family history secondary to age Social History Smoking Status: Former Smoker Alcohol Use: none Drug Use: none Marital Status: Housing Status: lives with family Occupation Status: retired Current/Historical Medications Scheduled Arformoterol Tartrate (Brovana), 15 MCG INH BID Budesonide (Pulmicort Respules 0.5MG/2ML), 0.5 MG INH BID Calcium Carbonate-Cholecalcife (Oyster Shell Calcium + D), 1 TAB PO QAM Cholecalciferol (Vitamin D 400 Iu), 400 INTER.UNIT PO QAM Fluticasone Propionate (Nasal) (Flonase Allergy Relief), 1 SPRAY NANCY DAILY Furosemide (Lasix), 40 MG PO QAM Levothyroxine Sodium (Synthroid), 25 MCG PO QAM Meloxicam (Meloxicam), 7.5 MG PO BID Metformin Hcl (Glucophage), 1,000 MG PO BID Mirtazapine (Remeron), 45 MG PO HS Mometasone Furoate-Formoterol (Dulera 200/5 Mcg), 1 PUFF INH BID Montelukast Sodium (Singulair), 10 MG PO HS Multiple Vitamins W/ Iron (Multi Vitamin with Iron), 1 TAB PO QAM Nortriptyline (Pamelor), 10 MG PO HS Potassium Chloride (Klor-Con M20), 20 MEQ PO BID Prednisone (Prednisone), 20 MG PO DAILY Quetiapine Fumarate (Seroquel), 400 MG PO HS Ranitidine Hcl (Zantac), 150 MG PO BID Rivaroxaban (Xarelto), 20 MG PO QAM Theophylline (Rohit-24), 1 CAP PO QAM Tiotropium [place] (Spiriva Handihaler), 1 CAP INH DAILY Scheduled PRN Albuterol Sulf (Albuterol Sulfate), 2.5 MG INH Q4 PRN for Shortness of Breath Clonazepam (Clonazepam), 0.5 MG PO Q12H PRN for Anxiety/Agitation Allergies Coded Allergies: Rabies Vaccine (Verified Allergy, Severe, HIVES, 06/19/17) Ragweed (Verified Allergy, Unknown, UNKNOWN, 06/19/17) Tomato (Verified Allergy, Unknown, HIVES, 06/19/17) Physical Exam Vital Signs Date Time Temp Pulse Resp B/P (MAP) Pulse Ox O2 Delivery O2 Flow Rate FiO2 07/27/17 16:34 122 42 178/98 91 Room Air 07/27/17 16:05 115 19 99 07/27/17 15:50 102 30 99 07/27/17 15:35 95 16 98 07/27/17 15:20 89 17 99 07/27/17 15:09 94 07/27/17 15:00 96 Nasal Cannula 2.0 07/27/17 15:00 96 Nasal Cannula 2.0 07/27/17 14:59 91 Room Air 07/27/17 14:55 36.8 92 22 125/79 91 Room Air 07/27/17 14:55 125/79 Physical Exam GENERAL: Patient is awake, alert, somewhat anxious appearing, appears to have significant dyspnea EYES: The conjunctivae are clear. The pupils are round and reactive. EARS, NOSE, MOUTH AND THROAT: The nose is without any evidence of any deformity. Mucous membranes are moist tongue is midline NECK: The neck is nontender and supple. RESPIRATORY: Lung sounds are diminished throughout with significant tachypnea and conversational dyspnea, expiratory wheezing in both upper lung max CARDIOVASCULAR: Heart sounds are tachycardic but regular, no definite murmur noted GASTROINTESTINAL: The abdomen is soft. Bowel sounds are present in all quadrants. Abdomen is nontender PELVIS: The Pelvis is stable. No tenderness to palpation is noted. BACK: No midline tenderness or or step-off noted range of motion in flexion extension as well as rotation no signs of muscle spasm noted MUSCULOSKELETAL/EXTREMITIES: There is no evidence of gross deformity full range of motion is noted in the hips and shoulders SKIN: There is no obvious evidence of any rash. There are no petechiae, pallor or cyanosis noted. NEUROLOGIC: Patient is awake alert and oriented x3 Medical Decision & Procedures ER Provider Diagnostic Interpretation: Radiology results as stated below per my review and radiologist interpretation: CHEST ONE VIEW PORTABLE HISTORY: 72 years-old Female EVALUATE RESPIRATORY DISTRESS.DYSPNEA acute respiratory distress with cough COMPARISON: Chest radiograph 06/19/2017 TECHNIQUE: Portable upright AP view of the chest FINDINGS: Cardiomediastinal and hilar silhouettes are within normal limits. Atherosclerosis of the aorta. There is no pneumothorax or pleural effusion. Linear subsegmental left basilar opacity is noted with mild left hemidiaphragmatic elevation. Lungs are otherwise clear. Bones appear grossly intact. IMPRESSION: Linear subsegmental left basilar opacity with mild left hemidiaphragm elevation suggest atelectasis. The above report was generated using voice recognition software. It may contain grammatical, syntax or spelling errors. Electronically signed by: Dm Zepeda M.D. 07/27/2017 3:31 PM Laboratory Results 07/27/17 14:48 Red Blood Count 4.32, Mean Corpuscular Volume 81.5, Mean Corpuscular Hemoglobin 25.5, Mean Corpuscular Hemoglobin Concent 31.3, Mean Platelet Volume 8.9, Neutrophils (%) (Auto) 42.5, Lymphocytes (%) (Auto) 39.8, Monocytes (%) (Auto) 11.8, Eosinophils (%) (Auto) 5.0, Basophils (%) (Auto) 0.6, Neutrophils # (Auto ) 2.80, Lymphocytes # (Auto) 2.62, Monocytes # (Auto) 0.78, Eosinophils # (Auto ) 0.33, Basophils # (Auto) 0.04 07/27/17 14:48 Test 07/27/17 14:48 07/27/17 16:01 07/27/17 16:37 White Blood Count 6.59 K/uL (4.8-10.8) Red Blood Count 4.32 M/uL (4.2-5.4) Hemoglobin 11.0 g/dL (12.0-16.0) Hematocrit 35.2 % (37-47) Mean Corpuscular Volume 81.5 fL (80-100) Mean Corpuscular Hemoglobin 25.5 pg (25-34) Mean Corpuscular Hemoglobin Concent 31.3 g/dl (32-36) Platelet Count 277 K/uL (130-400) Mean Platelet Volume 8.9 fL (7.4-10.4) Neutrophils (%) (Auto) 42.5 % Lymphocytes (%) (Auto) 39.8 % Monocytes (%) (Auto) 11.8 % Eosinophils (%) (Auto) 5.0 % Basophils (%) (Auto) 0.6 % Neutrophils # (Auto) 2.80 K/uL (1.4-6.5) Lymphocytes # (Auto) 2.62 K/uL (1.2-3.4) Monocytes # (Auto) 0.78 K/uL (0.11-0.59) Eosinophils # (Auto) 0.33 K/uL (0-0.5) Basophils # (Auto) 0.04 K/uL (0-0.2) RDW Standard Deviation 50.0 fL (36.4-46.3) RDW Coefficient of Variation 16.7 % (11.5-14.5) Immature Granulocyte % (Auto) 0.3 % Immature Granulocyte # (Auto) 0.02 K/uL (0.00-0.02) Prothrombin Time 13.1 SECONDS (9.0-12.0) Prothromb Time International Ratio 1.2 (0.9-1.1) Activated Partial Thromboplast Time 32.8 SECONDS (21.0-31.0) Partial Thromboplastin Ratio 1.3 Anion Gap 12.0 mmol/L (3-11) Est Creatinine Clear Calc Drug Dose 52.8 ml/min Estimated GFR () 66.3 Estimated GFR (Non- 57.2 BUN/Creatinine Ratio 23.0 (10-20) Calcium Level 9.0 mg/dl (8.5-10.1) Total Bilirubin 0.2 mg/dl (0.2-1) Aspartate Amino Transf (AST/SGOT) 17 U/L (15-37) Alanine Aminotransferase (ALT/SGPT) 22 U/L (12-78) Alkaline Phosphatase 95 U/L (45-117) Troponin I < 0.015 ng/ml (0-0.045) Pro-B-Type Natriuretic Peptide 21 pg/ml (0-900) Total Protein 6.9 gm/dl (6.4-8.2) Albumin 3.4 gm/dl (3.4-5.0) Globulin 3.5 gm/dl (2.5-4.0) Albumin/Globulin Ratio 1.0 (0.9-2) Theophylline Level 6 mcg/ml (10-20) Venous Blood pH 7.41 (7.36-7.41) Venous Blood Partial Pressure CO2 51 mmHg (38.0-50.0) Venous Blood Partial Pressure O2 73 mmHg Venous Blood HCO3 32 mmol/L Venous Blood Oxygen Saturation 93.3 % Venous Blood Base Excess 5.8 mEq/L Urine Color YELLOW Urine Appearance CLEAR (CLEAR) Urine pH 5.0 (4.5-7.5) Urine Specific [place] 1.028 (1.000-1.030) Urine Protein NEG (NEG) Urine Glucose (UA) 3+ (NEG) Urine Ketones NEG (NEG) Urine Occult Blood NEG (NEG) Urine Nitrite NEG (NEG) Urine Bilirubin NEG (NEG) Urine Urobilinogen NEG (NEG) Urine Leukocyte Esterase NEG (NEG) Laboratory results per my review. Medications Administered Medications (Trade) Dose Ordered Sig/Lulú Route Start Time Stop Time Status Last Admin Dose Admin Methylprednisolone Sodium Succinate (Solu-Medrol IV) 125 mg NOW STAT IV 07/27/17 15:05 07/27/17 15:07 DC 07/27/17 15:15 125 MG Albuterol/ Ipratropium (Duoneb) 12 ml ONE ONCE INH 07/27/17 15:15 07/27/17 15:16 DC 07/27/17 15:14 12 ML ECG Indication: SOB/dyspnea Rate (beats per minute): 91 Rhythm: sinus rhythm Findings: PAC, other (No acute ST segment abnormalities) Change: no significant change (No change from 06/18/17) ED Course 1501: The patient was evaluated in room A3. A complete history and physical examination were performed. 1505: Solu-Medrol 125 mg IV. 1515: DuoNeb 12 ml INH. 1605: I reevaluated the patient. She still has significant wheezing. 1630: I reevaluated the patient. She is resting comfortably. I discussed my recommendation she remain in the hospital for further evaluation and management and she and her family verbalized complete understanding and agreement. 1636: I discussed the patients case with Dr. Jeffries [facility] Hospitalist. The patient will be further evaluated. Medical Decision Prior records/ancillary studies reviewed. Triage Nursing notes reviewed. Additional history obtained from the family. The patient's history was concerning for respiratory difficulties. Differential diagnosis: Etiologies such as infections, reactive airway disease, pneumonia, pneumothorax , COPD, CHF, cardiac ischemia, pulmonary embolism, musculoskeletal, gastrointestinal, as well as others were entertained. The patient is a 72-year-old female who presented to the emergency department by ambulance for shortness of breath. The patient has been having shortness of breath for the last few days. She has a history of COPD and feels that this is consistent with her previous exacerbation of COPD. The patient has been seen in our facility previously for similar complaints. She received 3 DuoNeb treatments. She also received IV steroids. On subsequent reevaluation she was significantly improved at rest however with any exertion she became very dyspneic and tachycardic. I discussed the patient's laboratory radiographic studies with her. I discussed her case with the on-call [facility] hospitalist group. They've agreed to evaluate the patient in the emergency department for further management and disposition. Medication Reconcilliation Current Medication List: was personally reviewed by me Blood Pressure Screening Patient's blood pressure: Elevated blood pressure Blood pressure disposition: Referred to PCP Consults Time Called: 163 Consulting Physician: Dr. Landrum [facility] Hospitalist Returned Call: [phone] I discussed the patients case with Dr. Jeffries [facility] Hospitalist. The patient will be further evaluated. Impression Primary Impression: COPD exacerbation Additional Impressions: Tachypnea Shortness of breath Scribe Attestation The scribe's documentation has been prepared under my direction and personally reviewed by me in its entirety. I confirm that the note above accurately reflects all work, treatment, procedures, and medical decision making performed by me. Departure Information Dispostion Being Evaluated By Hospitalist Referrals Owen Lucas MD (PCP) Patient Instructions My [facility] Problem Qualifiers
[2017-07-27] MEDS ORDERED: ALBUT/IPRATROP 3MG/0.5MG NEB 3 ML VIAL INH ONE (15:15)
--- NOTE | 2017-07-27 15:32 | DIAGNOSTIC IMAGING REPORT ---
CHEST ONE VIEW PORTABLE HISTORY: 72 years-old Female EVALUATE RESPIRATORY DISTRESS.DYSPNEA acute respiratory distress with cough COMPARISON: Chest radiograph 06/19/2017 TECHNIQUE: Portable upright AP view of the chest FINDINGS: Cardiomediastinal and hilar silhouettes are within normal limits. Atherosclerosis of the aorta. There is no pneumothorax or pleural effusion. Linear subsegmental left basilar opacity is noted with mild left hemidiaphragmatic elevation. Lungs are otherwise clear. Bones appear grossly intact. IMPRESSION: Linear subsegmental left basilar opacity with mild left hemidiaphragm elevation suggest atelectasis. The above report was generated using voice recognition software. It may contain grammatical, syntax or spelling errors. Electronically signed by: Dm Zepeda M.D. 07/27/2017 3:31 PM Dictated Date/Time: 07/27/2017 3:30 PM
[2017-07-27 15:41] LABS: INR 1.2 (0.9-1.1); PARTIAL THROMBOPLASTIN RATIO 1.3; PROTHROMBIN TIME (PATIENT) 13.1 SECONDS (9.0-12.0)
[2017-07-27 15:45] LABS: BASO % 0.6 %; BASO ABS # 0.04 K/uL (0-0.2); COMPLETE YES; HEMATOCRIT 35.2 % (37-47); IG% 0.3 %; LYMPH % 39.8 %; LYMPH ABS # 2.62 K/uL (1.2-3.4); MEAN CELL VOLUME 81.5 fL (80-100); MEAN CORPUSCULAR HEMOGLOBIN 25.5 pg (25-34); MEAN CORPUSCULAR HGB CONC 31.3 g/dl (32-36); MEAN PLATELET VOLUME 8.9 fL (7.4-10.4); MONO % 11.8 %; NEUT % 42.5 %; PLATELET COUNT 277 K/uL (130-400); RED BLOOD COUNT 4.32 M/uL (4.2-5.4); WHITE BLOOD COUNT 6.59 K/uL (4.8-10.8)
[2017-07-27 15:55] LABS: ALT/SGPT 22 U/L (12-78); BLOOD UREA NITROGEN 23 mg/dl (7-18); CARBON DIOXIDE 28 mmol/L (21-32); CHLORIDE 99 mmol/L (98-107); CREATININE 0.98 mg/dl (0.60-1.20); GLUCOSE 200 mg/dl (70-99); POTASSIUM 3.7 mmol/L (3.5-5.1); SODIUM 139 mmol/L (136-145)
[2017-07-27 16:00] LABS: ALKALINE PHOSPHATASE 95 U/L (45-117); AST/SGOT 17 U/L (15-37)
[2017-07-27 16:14] LABS: VEN BLD GAS O2 SATURATION 93.3 %; VEN BLOOD GAS BASE EXCESS 5.8 mEq/L
[2017-07-27 16:54] LABS: URINE APPEARANCE CLEAR (CLEAR); URINE BILIRUBIN NEG (NEG); URINE COLOR YELLOW; URINE NITRITE NEG (NEG); URINE SPECIFIC GRAVITY 1.028 (1.000-1.030); UROBILINOGEN NEG (NEG)
[2017-07-27 17:03] LABS: MANUAL MICROSCOPIC REQUIRED? NO; REVIEW REQ? NO
[2017-07-27] MEDS ORDERED: NERVE PILL PO (17:28)
--- NOTE | 2017-07-27 18:17 | History and Physical ---
History & Physical Date & Time of Service: Jul 27, 2017 at 18:02 Chief Complaint: Cough/Respiratory Primary Care Physician: Anil Rodriguez D.O. History of Present Illness Source: patient 72yo female with COPD and chronic resp failure - on 2 L NC o2 during the day and 3 L at night - who presents with 2 days of worsening cough (mainly dry), shortness of breath, and increasing O2 requirements. She was very weak yesterday and layed in bed all day. No fever. Some chills. She reports nasal congestion with nasal drainage. Some sore throat as well. She has baseline ALVAREZ with walking across the street to a neighbor. Now, she is getting dyspneic with walking to the bathroom in her home. No recent antibiotic usage. She does take prednisone 20mg every day. In the ambulance en route to [facility] she was given neb treatments; here, she was given an hour-long duoneb. She was also given solumedrol 125mg IV x 1. She reports feeling "a little better" after these measures. Past Medical/Surgical History PMH: 1. COPD, dx early 2. chronic hypoxic respiratory failure on home O2 - 2 liters continuously 3. GERD 4. chronic diastolic CHF 5. meningitis - 1973 6. ovarian cancer - s/p LEOLA/BSO - age 25 7. T2DM 8. h/o PEs - 2015 PSH: 1. LEOLA/BSO 2. lumpectomy, right (benign) 3. knee surgery x 2 on left 4. cataract extraction b/l Family History father/mother - CHF; both from such father - multiple strokes father - MD which ultimately caused his Social History Smoking Status: Former Smoker (quit 5 years ago - smoked nearly 50 years; 2ppd ) Smokeless Tobacco Use: No Alcohol Use: none Drug Use: none Marital Status: Housing status: lives alone (in [place]) Occupational Status: retired (worked at [employer] in [place]) Immunizations History of Influenza Vaccine: Yes History of Tetanus Vaccine?: Yes History of Pneumococcal: Yes History of Hepatitis B Vaccine: Unknown Multi-Drug Resistant Organisms History of MDRO: No Allergies Coded Allergies: Rabies Vaccine (Verified Allergy, Severe, HIVES, 07/27/17) Ragweed (Verified Allergy, Unknown, UNKNOWN, 07/27/17) Tomato (Verified Allergy, Unknown, HIVES, 07/27/17) Home Medications Scheduled Arformoterol Tartrate (Brovana), 15 MCG INH BID Budesonide (Pulmicort Respules 0.5MG/2ML), 0.5 MG INH BID Calcium Carbonate-Cholecalcife (Oyster Shell Calcium + D), 1 TAB PO QAM Cholecalciferol (Vitamin D 400 Iu), 400 INTER.UNIT PO QAM Fluticasone Propionate (Nasal) (Flonase Allergy Relief), 1 SPRAY NANCY DAILY Furosemide (Lasix), 40 MG PO QAM Levothyroxine Sodium (Synthroid), 25 MCG PO QAM Meloxicam (Meloxicam), 7.5 MG PO BID Metformin Hcl (Glucophage), 1,000 MG PO BID Mirtazapine (Remeron), 45 MG PO HS Mometasone Furoate-Formoterol (Dulera 200/5 Mcg), 1 PUFF INH BID Montelukast Sodium (Singulair), 10 MG PO HS Multiple Vitamins W/ Iron (Multi Vitamin with Iron), 1 TAB PO QAM Nortriptyline (Pamelor), 10 MG PO HS Potassium Chloride (Klor-Con M20), 20 MEQ PO BID Prednisone (Prednisone), 20 MG PO DAILY Quetiapine Fumarate (Seroquel), 400 MG PO HS Ranitidine Hcl (Zantac), 150 MG PO BID Rivaroxaban (Xarelto), 20 MG PO QAM Theophylline (Rohit-24), 1 CAP PO QAM Tiotropium [place] (Spiriva Handihaler), 1 CAP INH DAILY [Nerve Pill], 1 TAB PO QAM Scheduled PRN Albuterol Sulf (Albuterol Sulfate), 2.5 MG INH Q4 PRN for Shortness of Breath Clonazepam (Clonazepam), 0.5 MG PO Q12H PRN for Anxiety/Agitation Review of Systems Constitutional: + chills, + weight loss (lost 4 pounds due to poor appetite ), + fatigue, No fever Eyes: No worsening of vision ENT: + hearing loss, + nasal symptoms, + sore throat, No trouble swallowing Respiratory: + cough, + wheezing, + shortness of breath, + dyspnea on exertion , + dyspnea at rest, No sputum, No hemoptysis Cardiovascular: No chest pain, No orthopnea, No edema Abdomen: + pain, + nausea, + diarrhea (chronic - with eating ), No vomiting Genitourinary - Female: No dysuria Neurologic: No numbness/tingling Psychiatric: + anxiety, No depression symptoms Endocrine: + fatigue Hematologic / Lymphatic: + abnormal bleeding/bruising Integumentary: + rash (1 week ago - but resolved now) Physical Exam Vital Signs Date Time Temp Pulse Resp B/P (MAP) Pulse Ox O2 Delivery O2 Flow Rate FiO2 07/27/17 17:55 102 20 96 07/27/17 17:40 103 34 96 07/27/17 17:31 137/92 07/27/17 17:25 104 16 95 07/27/17 17:10 105 16 96 07/27/17 17:01 105/76 07/27/17 16:55 105 17 100 07/27/17 16:40 114 12 97 07/27/17 16:34 122 42 178/98 91 Room Air 07/27/17 16:34 178/98 07/27/17 16:25 112 17 94 07/27/17 16:15 136/76 07/27/17 16:10 116 17 94 07/27/17 16:05 115 19 99 07/27/17 15:50 102 30 99 07/27/17 15:35 95 16 98 07/27/17 15:20 89 17 99 07/27/17 15:09 94 07/27/17 15:00 96 Nasal Cannula 2.0 07/27/17 15:00 96 Nasal Cannula 2.0 07/27/17 14:59 91 Room Air 07/27/17 14:55 36.8 92 22 125/79 91 Room Air 07/27/17 14:55 125/79 General Appearance: + mild distress (tachypneic, but no use of accessory muscles and can speak in full sentences comfortably; coughing) Head: normocephalic, atraumatic Eyes: PERRL, + pertinent finding (lens implants b/l) ENT: hearing grossly normal, TMs normal, pharynx normal Neck: supple, no adenopathy, no JVD Respiratory/Chest: no accessory muscle use, + respiratory distress, + decreased breath sounds, + rhonchi, + wheezing (extensive ) Cardiovascular: no gallop, no murmur, normal peripheral pulses, + tachycardia, + pertinent finding (heart tones distant) Abdomen/GI: normal bowel sounds, non tender, soft, no organomegaly Back: normal inspection Extremities/Musculoskelatal: no pedal edema Neurologic/Psych: no motor/sensory deficits, alert, normal reflexes, oriented x 3 Skin: no rash Lymphatic: no adenopathy (cervical ) Diagnostics Laboratory Results Results Past 24 Hours Test 07/27/17 14:48 07/27/17 16:01 07/27/17 16:37 Range/Units White Blood Count 6.59 4.8-10.8 K/uL Red Blood Count 4.32 4.2-5.4 M/uL Hemoglobin 11.0 12.0-16.0 g/dL Hematocrit 35.2 37-47 % Mean Corpuscular Volume 81.5 80-100 fL Mean Corpuscular Hemoglobin 25.5 25-34 pg Mean Corpuscular Hemoglobin Concent 31.3 32-36 g/dl Platelet Count 277 130-400 K/uL Mean Platelet Volume 8.9 7.4-10.4 fL Neutrophils (%) (Auto) 42.5 % Lymphocytes (%) (Auto) 39.8 % Monocytes (%) (Auto) 11.8 % Eosinophils (%) (Auto) 5.0 % Basophils (%) (Auto) 0.6 % Neutrophils # (Auto) 2.80 1.4-6.5 K/uL Lymphocytes # (Auto) 2.62 1.2-3.4 K/uL Monocytes # (Auto) 0.78 0.11-0.59 K/uL Eosinophils # (Auto) 0.33 0-0.5 K/uL Basophils # (Auto) 0.04 0-0.2 K/uL RDW Standard Deviation 50.0 36.4-46.3 fL RDW Coefficient of Variation 16.7 11.5-14.5 % Immature Granulocyte % (Auto) 0.3 % Immature Granulocyte # (Auto) 0.02 0.00-0.02 K/uL Prothrombin Time 13.1 9.0-12.0 SECONDS Prothromb Time International Ratio 1.2 0.9-1.1 Activated Partial Thromboplast Time 32.8 21.0-31.0 SECONDS Partial Thromboplastin Ratio 1.3 Sodium Level 139 136-145 mmol/L Potassium Level 3.7 3.5-5.1 mmol/L Chloride Level 99 98-107 mmol/L Carbon Dioxide Level 28 21-32 mmol/L Anion Gap 12.0 3-11 mmol/L Blood Urea Nitrogen 23 7-18 mg/dl Creatinine 0.98 0.60-1.20 mg/dl Est Creatinine Clear Calc Drug Dose 52.8 ml/min Estimated GFR () 66.3 Estimated GFR (Non- 57.2 BUN/Creatinine Ratio 23.0 10-20 Random Glucose 200 70-99 mg/dl Calcium Level 9.0 8.5-10.1 mg/dl Total Bilirubin 0.2 0.2-1 mg/dl Aspartate Amino Transf (AST/SGOT) 17 15-37 U/L Alanine Aminotransferase (ALT/SGPT) 22 12-78 U/L Alkaline Phosphatase 95 45-117 U/L Troponin I < 0.015 0-0.045 ng/ml Pro-B-Type Natriuretic Peptide 21 0-900 pg/ml Total Protein 6.9 6.4-8.2 gm/dl Albumin 3.4 3.4-5.0 gm/dl Globulin 3.5 2.5-4.0 gm/dl Albumin/Globulin Ratio 1.0 0.9-2 Theophylline Level 6 10-20 mcg/ml Venous Blood pH 7.41 7.36-7.41 Venous Blood Partial Pressure CO2 51 38.0-50.0 mmHg Venous Blood Partial Pressure O2 73 mmHg Venous Blood HCO3 32 mmol/L Venous Blood Oxygen Saturation 93.3 % Venous Blood Base Excess 5.8 mEq/L Urine Color YELLOW Urine Appearance CLEAR CLEAR Urine pH 5.0 4.5-7.5 Urine Specific [place] 1.028 1.000-1.030 Urine Protein NEG NEG Urine Glucose (UA) 3+ NEG Urine Ketones NEG NEG Urine Occult Blood NEG NEG Urine Nitrite NEG NEG Urine Bilirubin NEG NEG Urine Urobilinogen NEG NEG Urine Leukocyte Esterase NEG NEG Diagnostic Radiology cxr - IMPRESSION: Linear subsegmental left basilar opacity with mild left hemidiaphragm elevation suggest atelectasis. EKG NSR, left atrial enlargement, no ST changes; PAC Impression Assessment and Plan 72yo female with chronic hypoxic respiratory failure on home O2 2nd to COPD presenting with severe COPD exacerbation with resulting acute on chronic hypoxic /hypercarbic respiratory failure. 1. acute/chronic hypoxic/hypercarbic respiratory failure - 2nd to COPD with exacerbation - antibiotics, steroids, nebs, supportive care. 2. COPD with exacerbation - as above in #1. Titrate O2 to maintain sats 90-92% . Since there is no evidence of pneumonia will use narrow spectrum antibiotics for now (doxy 100mg BID). Solumedrol 40mg q6h. Nebs, incentive sukhdev, etc. Fortunately her VBG was nicely compensated at this time. Hold PO prednisone. Cont theophylline; level acceptable. 3. T2DM - anticipate poor control with steroid use. Start lantus 10 units BID. Start novolog with correction/carb coverage. AC/HS FSBS's. Hold metformin. 4. hypothyroidism - TSH in 06/30 was wnl. Cont synthroid. 5. DVT proph - xarelto. 6. h/o PEs - xarelto. 7. GERD - zantac. 8. depression / mood disorder - continue all outpatient medications. 9. arthritis - hold NSAID while on high-dose steroids to avoid gastritis. 10. PT, OT when able as she is very deconditioned 11. chronic diarrhea - outpatient work-up. 12. chronic diastolic CHF - appears compensated. Cont lasix, daily weights, etc. Not on beta pauly - presumably due to severe COPD. Level of Care Telemetry Resuscitation Status FULL RESUSCITATION VTE Prophylaxis Given or contraindicated: Other Anticoagulation Note total time 70 minutes Additional Copies To Anil Rodriguez D.O.
[2017-07-27] MEDS ORDERED: ALUMINUM/MAGNESIUM/SIMETH (MAALOX MAX) 30 ML UDC PO PRN (18:45)
[2017-07-27] MEDS ORDERED: ACETAMINOPHEN 325 MG TAB PO PRN (18:45)
[2017-07-27] MEDS ORDERED: MAGNESIUM HYDROXIDE SUSP 30 ML UDC PO PRN (18:45)
[2017-07-27] MEDS ORDERED: ONDANSETRON INJ 2 MG/ML 2 ML VIAL IV PRN (18:45)
[2017-07-27] MEDS ORDERED: CLONAZEPAM 0.5 MG TAB PO PRN (18:45)
[2017-07-27] MEDS ORDERED: DEXTROSE 50% 50 ML SYR IV PRN (19:30)
[2017-07-27] MEDS ORDERED: GLUCOSE 10 TABS/TUBE PO PRN (19:30)
[2017-07-27] MEDS ORDERED: GLUCAGON FOR INJ 1 MG VIAL SQ PRN (19:30)
[2017-07-27] MEDS ORDERED: GLUCOSE 40% GEL 15 GM TUBE PO PRN (19:30)
[2017-07-27 19:50] VITALS: BP 135/86; PULSE 121; TEMP 36.3; O2SAT 93; BMI 34.0
[2017-07-27] MEDS: ALBUT/IPRATROP 3MG/0.5MG NEB 3 ML VIAL INH SCH ×2 (20:11→23:31)
[2017-07-27 20:12] VITALS: PULSE 105; O2SAT 95
[2017-07-27] MEDS: BUDESONIDE 0.5 MG/2 ML VIAL (PULMICORT) INH SCH (20:12)
[2017-07-27] MEDS ORDERED: FLUTICASONE/SALMETEROL 250/50 (ADVAIR) 14 PUFF/1 INHALER INH SCH (21:00)
[2017-07-27] MEDS: POTASSIUM CHLORIDE 20 MEQ TABCR PO SCH (21:22)
[2017-07-27] MEDS: QUETIAPINE FUMARATE 200 MG TAB PO SCH (21:22)
[2017-07-27] MEDS: DOXYCYCLINE HYCLATE 100 MG CAP PO SCH (21:23)
[2017-07-27] MEDS: MIRTAZAPINE TAB 15 MG TAB PO SCH (21:23)
[2017-07-27] MEDS: GUAIFENESIN 600 MG TABCR PO SCH (21:24)
[2017-07-27] MEDS: MONTELUKAST SOD 10 MG TAB PO SCH (21:24)
[2017-07-27] MEDS: RANITIDINE HCL 150 MG TAB PO SCH (21:24)
[2017-07-27] MEDS: NORTRIPTYLINE HCL 10 MG CAP PO SCH (21:26)
[2017-07-27] MEDS: INSULIN ASPART 100 UNITS/ML 3 ML PEN SC SCH (21:32)
[2017-07-27] MEDS: INSULIN GLARGINE SOLOSTAR 100 UNITS/ML 3 ML PEN SC SCH (21:32)
[2017-07-27] MEDS: METHYLPREDNISOLONE IV 40 MG in SYRINGE 0 ML IV SCH (21:48)
[2017-07-27 23:22] VITALS: BP 144/75; PULSE 112; TEMP 36.9; O2SAT 93
[2017-07-27 23:32] VITALS: PULSE 113; O2SAT 95
[2017-07-28] VITALS (13 sets, daily range): BP systolic 116–171; BP diastolic 55–80; PULSE 84–119; TEMP 36.6–37.2; O2SAT 89–96; Ht 157.5 cm; Wt 84.8 kg
[2017-07-28] MEDS: METHYLPREDNISOLONE IV 40 MG in SYRINGE 0 ML IV SCH ×4 (03:29→20:43)
[2017-07-28] MEDS: LEVOTHYROXINE 25 MCG TAB PO SCH (05:22)
[2017-07-28] MEDS: BUDESONIDE 0.5 MG/2 ML VIAL (PULMICORT) INH SCH ×2 (06:07→19:30)
[2017-07-28] MEDS: ALBUT/IPRATROP 3MG/0.5MG NEB 3 ML VIAL INH SCH ×5 (06:07→23:53)
[2017-07-28 07:14] LABS: CALCIUM 8.3 mg/dl (8.5-10.1); CREATININE 1.16 mg/dl (0.60-1.20); MAGNESIUM 1.8 mg/dl (1.8-2.4)
[2017-07-28] MEDS: THEOPHYLLINE 400MG CONTROLLED REL TAB PO SCH (08:14)
[2017-07-28] MEDS: RANITIDINE HCL 150 MG TAB PO SCH ×2 (08:14→20:45)
[2017-07-28] MEDS: GUAIFENESIN 600 MG TABCR PO SCH ×2 (08:14→20:45)
[2017-07-28] MEDS: CEROVITE ADV FORMULA TAB PO SCH (08:15)
[2017-07-28] MEDS: FUROSEMIDE 40 MG TAB PO SCH (08:15)
[2017-07-28] MEDS: DOXYCYCLINE HYCLATE 100 MG CAP PO SCH ×2 (08:15→20:44)
[2017-07-28] MEDS: CHOLECALCIFEROL 400 INTER.UNIT TAB PO SCH (08:15)
[2017-07-28] MEDS: RIVAROXABAN 20 MG TAB PO SCH (08:15)
[2017-07-28] MEDS: FLUTICASONE PROPIONATE NA SPR 16 GM BTL NAE SCH (08:16)
[2017-07-28] MEDS: POTASSIUM CHLORIDE 20 MEQ TABCR PO SCH ×2 (08:17→20:44)
[2017-07-28] MEDS: INSULIN GLARGINE SOLOSTAR 100 UNITS/ML 3 ML PEN SC SCH (08:18)
[2017-07-28] MEDS: INSULIN ASPART 100 UNITS/ML 3 ML PEN SC SCH ×4 (08:21→20:49)
[2017-07-28] MEDS ORDERED: TIOTROPIUM BROMIDE 5 PUFF/90 MCG INH INH SCH (09:00)
--- NOTE | 2017-07-28 12:26 | Medical Student: [facility] ---
Med Student History & Physical Date & Time of Service: Jul 28, 2017 at 12:06 Chief Complaint: Copd Exacerbation Primary Care Physician: Anil Rordiguez D.O. History of Present Illness Source: patient Mini is a 72-year-old female with a history of severe COPD and CHF who presented to the ED yesterday (07/27) with a cough and shortness of breath. She states that she was around a home health aide who had a cold about five days ago , and Mini became congestion shortly after, which is what she thinks caused this acute exacerbation of her COPD. She states this has happened before in a similar manner. Still feels congested with a headache, productive cough ( whitish with brown specks), nausea, and diarrhea (although she also said this was a chronic problem). Is on 2 L of oxygen at home during the day and 3 L at night and also uses nebulizing treatments daily - these were not enough to mitigate her symptoms. Also had fever, chills, and was lightheaded. PMH is also significant for PE in 2016, DMII, GERD, and tobacco use (quit five years ago after smoking 1-2 PPD). Today, she is feeling much better. She is still on 2 L of oxygen and has had multiple DuoNeb treatments but states she is breathing much more easily and doesn't feel like she is wheezing as much. She is still very congested, and she says this is why she isn't back to baseline yet. She is still coughing but it is no longer productive. She denies fever, chills, nausea, vomiting, chest pain , palpitations, claudication, dizziness. CXR showed left basilar opacity and slight left hemidiaphragm most consistent with atelectasis, though pneumonia should be ruled out. Past Medical/Surgical History Medical Problems: (1) Acute exacerbation of chronic obstructive pulmonary disease Status: Acute (2) Anemia Status: Acute (3) COPD exacerbation Status: Acute (4) COPD exacerbation Status: Acute (5) COPD exacerbation Status: Acute (6) COPD exacerbation Status: Acute (7) Hypomagnesemia Status: Acute (8) Hypoxia Status: Acute (9) Lactic acidosis Status: Acute (10) Meningitis Status: Resolved (11) Ovarian cancer Status: Resolved (12) Sepsis Status: Acute (13) Shortness of breath Status: Acute (14) Tachypnea Status: Acute Family History Father: congestive heart failure, heart disease, stroke Mother: congestive heart failure Social History Smoking Status: Former Smoker (2 PPD; quit 5 years ago) Smokeless Tobacco Use: No Alcohol Use: none Drug Use: none Marital Status: Housing status: lives alone (in [place]) Occupational Status: retired (worked at [employer] in [place]) Immunizations History of Influenza Vaccine: Yes History of Tetanus Vaccine?: Yes History of Pneumococcal: Yes History of Hepatitis B Vaccine: Unknown Allergies Coded Allergies: Rabies Vaccine (Verified Allergy, Severe, HIVES, 07/27/17) Ragweed (Verified Allergy, Unknown, UNKNOWN, 07/27/17) Tomato (Verified Allergy, Unknown, HIVES, 07/27/17) Medications Albuterol Sulf (Albuterol Sulfate), 2.5 MG INH Q4 PRN for Shortness of Breath Arformoterol Tartrate (Brovana), 15 MCG INH BID Budesonide (Pulmicort Respules 0.5MG/2ML), 0.5 MG INH BID Calcium Carbonate-Cholecalcife (Oyster Shell Calcium + D), 1 TAB PO QAM Cholecalciferol (Vitamin D 400 Iu), 400 INTER.UNIT PO QAM Clonazepam (Clonazepam), 0.5 MG PO Q12H PRN for Anxiety/Agitation Fluticasone Propionate (Nasal) (Flonase Allergy Relief), 1 SPRAY NANCY DAILY Furosemide (Lasix), 40 MG PO QAM Levothyroxine Sodium (Synthroid), 25 MCG PO QAM Meloxicam (Meloxicam), 7.5 MG PO BID Metformin Hcl (Glucophage), 1,000 MG PO BID Mirtazapine (Remeron), 45 MG PO HS Mometasone Furoate-Formoterol (Dulera 200/5 Mcg), 1 PUFF INH BID Montelukast Sodium (Singulair), 10 MG PO HS Multiple Vitamins W/ Iron (Multi Vitamin with Iron), 1 TAB PO QAM Nortriptyline (Pamelor), 10 MG PO HS Potassium Chloride (Klor-Con M20), 20 MEQ PO BID Prednisone (Prednisone), 20 MG PO DAILY Quetiapine Fumarate (Seroquel), 400 MG PO HS Ranitidine Hcl (Zantac), 150 MG PO BID Rivaroxaban (Xarelto), 20 MG PO QAM Theophylline (Rohit-24), 1 CAP PO QAM Tiotropium [place] (Spiriva Handihaler), 1 CAP INH DAILY [Nerve Pill], 1 TAB PO QAM Review of Systems Constitutional: No fever, No chills, No sweats Respiratory: + cough, + wheezing, + shortness of breath, + dyspnea on exertion , No sputum Cardiovascular: No chest pain, No orthopnea Abdomen: No pain, No nausea, No vomiting Musculoskeletal: No swelling, No calf pain Genitourinary - Female: No dysuria Psychiatric: + anxiety Integumentary: + rash (Had this one week ago; pruritic/erythematous on legs and arms; has resolved) Physical Exam Vital Signs (24 Hours) Date Time Temp Pulse Resp B/P (MAP) Pulse Ox O2 Delivery O2 Flow Rate FiO2 07/28/17 11:37 37.0 107 20 171/80 (110) 95 2.0 07/28/17 11:27 119 20 91 Nasal Cannula 2.0 07/28/17 08:00 Nasal Cannula 2.0 07/28/17 07:58 37.2 107 18 116/55 (75) 93 2.0 07/28/17 06:08 105 20 95 Nasal Cannula 2.0 07/28/17 04:11 36.6 91 21 130/76 (94) 93 Room Air 07/28/17 04:00 Nasal Cannula 2.0 07/27/17 23:59 Nasal Cannula 2.0 07/27/17 23:32 113 18 95 Nasal Cannula 2.0 07/27/17 23:22 36.9 112 22 144/75 (98) 93 Nasal Cannula 2.0 07/27/17 20:12 105 20 95 Nasal Cannula 2.0 07/27/17 19:50 36.3 121 28 135/86 93 Nasal Cannula 2.0 07/27/17 19:23 109 22 105/91 96 07/27/17 19:09 108 07/27/17 17:55 102 20 96 07/27/17 17:40 103 34 96 07/27/17 17:31 137/92 07/27/17 17:25 104 16 95 07/27/17 17:10 105 16 96 07/27/17 17:01 105/76 07/27/17 16:55 105 17 100 07/27/17 16:40 114 12 97 07/27/17 16:34 122 42 178/98 91 Room Air 07/27/17 16:34 178/98 07/27/17 16:25 112 17 94 07/27/17 16:15 136/76 07/27/17 16:10 116 17 94 07/27/17 16:05 115 19 99 07/27/17 15:50 102 30 99 07/27/17 15:35 95 16 98 07/27/17 15:20 89 17 99 07/27/17 15:09 94 07/27/17 15:00 96 Nasal Cannula 2.0 07/27/17 15:00 96 Nasal Cannula 2.0 07/27/17 14:59 91 Room Air 07/27/17 14:55 36.8 92 22 125/79 91 Room Air 07/27/17 14:55 125/79 General Appearance: WD/WN, + mild distress Head: normocephalic, atraumatic Eyes: EOMI Neck: supple, no adenopathy Respiratory/Chest: + respiratory distress, + decreased breath sounds, + wheezing Cardiovascular: no edema, no murmur, + tachycardia Abdomen/GI: normal bowel sounds, non tender, soft Extremities/Musculoskelatal: normal inspection, no calf tenderness Neurologic/Psych: alert, oriented x 3 Skin: normal color, warm/dry Diagnostics Laboratory Results Results Past 24 Hours Test 07/27/17 14:48 07/27/17 16:01 07/27/17 16:37 07/27/17 20:13 Range/Units White Blood Count 6.59 4.8-10.8 K/uL Red Blood Count 4.32 4.2-5.4 M/uL Hemoglobin 11.0 12.0-16.0 g/dL Hematocrit 35.2 37-47 % Mean Corpuscular Volume 81.5 80-100 fL Mean Corpuscular Hemoglobin 25.5 25-34 pg Mean Corpuscular Hemoglobin Concent 31.3 32-36 g/dl Platelet Count 277 130-400 K/uL Mean Platelet Volume 8.9 7.4-10.4 fL Neutrophils (%) (Auto) 42.5 % Lymphocytes (%) (Auto) 39.8 % Monocytes (%) (Auto) 11.8 % Eosinophils (%) (Auto) 5.0 % Basophils (%) (Auto) 0.6 % Neutrophils # (Auto) 2.80 1.4-6.5 K/uL Lymphocytes # (Auto) 2.62 1.2-3.4 K/uL Monocytes # (Auto) 0.78 0.11-0.59 K/uL Eosinophils # (Auto) 0.33 0-0.5 K/uL Basophils # (Auto) 0.04 0-0.2 K/uL RDW Standard Deviation 50.0 36.4-46.3 fL RDW Coefficient of Variation 16.7 11.5-14.5 % Immature Granulocyte % (Auto) 0.3 % Immature Granulocyte # (Auto) 0.02 0.00-0.02 K/uL Prothrombin Time 13.1 9.0-12.0 SECONDS Prothromb Time International Ratio 1.2 0.9-1.1 Activated Partial Thromboplast Time 32.8 21.0-31.0 SECONDS Partial Thromboplastin Ratio 1.3 Sodium Level 139 136-145 mmol/L Potassium Level 3.7 3.5-5.1 mmol/L Chloride Level 99 98-107 mmol/L Carbon Dioxide Level 28 21-32 mmol/L Anion Gap 12.0 3-11 mmol/L Blood Urea Nitrogen 23 7-18 mg/dl Creatinine 0.98 0.60-1.20 mg/dl Est Creatinine Clear Calc Drug Dose 52.8 ml/min Estimated GFR () 66.3 Estimated GFR (Non- 57.2 BUN/Creatinine Ratio 23.0 10-20 Random Glucose 200 70-99 mg/dl Calcium Level 9.0 8.5-10.1 mg/dl Total Bilirubin 0.2 0.2-1 mg/dl Aspartate Amino Transf (AST/SGOT) 17 15-37 U/L Alanine Aminotransferase (ALT/SGPT) 22 12-78 U/L Alkaline Phosphatase 95 45-117 U/L Troponin I < 0.015 0-0.045 ng/ml Pro-B-Type Natriuretic Peptide 21 0-900 pg/ml Total Protein 6.9 6.4-8.2 gm/dl Albumin 3.4 3.4-5.0 gm/dl Globulin 3.5 2.5-4.0 gm/dl Albumin/Globulin Ratio 1.0 0.9-2 Theophylline Level 6 10-20 mcg/ml Venous Blood pH 7.41 7.36-7.41 Venous Blood Partial Pressure CO2 51 38.0-50.0 mmHg Venous Blood Partial Pressure O2 73 mmHg Venous Blood HCO3 32 mmol/L Venous Blood Oxygen Saturation 93.3 % Venous Blood Base Excess 5.8 mEq/L Urine Color YELLOW Urine Appearance CLEAR CLEAR Urine pH 5.0 4.5-7.5 Urine Specific [place]yman 1.028 1.000-1.030 Urine Protein NEG NEG Urine Glucose (UA) 3+ NEG Urine Ketones NEG NEG Urine Occult Blood NEG NEG Urine Nitrite NEG NEG Urine Bilirubin NEG NEG Urine Urobilinogen NEG NEG Urine Leukocyte Esterase NEG NEG Bedside Glucose 293 70-90 mg/dl Test 07/28/17 06:29 07/28/17 11:14 Range/Units Sodium Level 138 136-145 mmol/L Potassium Level 4.0 3.5-5.1 mmol/L Chloride Level 103 98-107 mmol/L Carbon Dioxide Level 23 21-32 mmol/L Anion Gap 12.0 3-11 mmol/L Blood Urea Nitrogen 23 7-18 mg/dl Creatinine 1.16 0.60-1.20 mg/dl Est Creatinine Clear Calc Drug Dose 43.6 ml/min Estimated GFR () 54.1 Estimated GFR (Non- 46.7 BUN/Creatinine Ratio 20.0 10-20 Random Glucose 285 70-99 mg/dl Calcium Level 8.3 8.5-10.1 mg/dl Magnesium Level 1.8 1.8-2.4 mg/dl Bedside Glucose 258 70-90 mg/dl Impression Assessment and Plan Assessment/Plan: This is a 72-year-old woman with a history of COPD and CHF who presented to the ED 07/27 with shortness of breath and productive cough. DDx includes COPD exacerbation, CHF exacerbation, pneumonia, PE, bronchitis, atelectasis, reactive airway disease. COPD exacerbation/shortness of breath: -2 L O2 during the day, increase to 3 L overnight; monitor O2 sats -Continue IV Solumedrol; hold PO steroids for now -Continue IV doxy to cover for pneumonia -Continue DuoNeb q4 -Repeat CXR -Consult pulmonology is no improvement CHF: -Monitor for fluid overload/pulmonary edema -Continue Lasix DMII -Monitor blood glucose before meals -May be more difficult to control given steroid use -Hold metformin; increase lantus to 15 u BID Mood/depression/anxiety: -Continue home meds Hx of PE and DVT prophylaxis: -Continue home Xarelto Hypothyroid -Continue Synthroid Advanced Directives Existing Living Will: No Existing Power of [place]: No
[2017-07-28] MEDS ORDERED: INSULIN GLARGINE SOLOSTAR 100 UNITS/ML 3 ML PEN SC ONE (15:50)
[2017-07-28] MEDS ORDERED: COUGH DROP (SUGAR FREE) LOZ 24 LOZ/1 BOX PO PRN (16:00)
--- NOTE | 2017-07-28 17:35 | Progress Note ---
Subjective Date of Service: Jul 28, 2017. Subjective Pt evaluation today including: conversation w/ patient, physical exam, chart review, lab review, review of studies, review of inpatient medication list feeling better breathing not yet at baseline no f/c/s was a little chilled earlier but better no other new complaints Problem List Medical Problems: (1) Acute exacerbation of chronic obstructive pulmonary disease Status: Acute (2) Anemia Status: Acute (3) COPD exacerbation Status: Acute (4) COPD exacerbation Status: Acute (5) COPD exacerbation Status: Acute (6) COPD exacerbation Status: Acute (7) Hypomagnesemia Status: Acute (8) Hypoxia Status: Acute (9) Lactic acidosis Status: Acute (10) Sepsis Status: Acute (11) Shortness of breath Status: Acute (12) Tachypnea Status: Acute Review of Systems all other ROS otherwise negative except for as above Objective Vital Signs Date Time Temp Pulse Resp B/P (MAP) Pulse Ox O2 Delivery O2 Flow Rate FiO2 07/28/17 15:42 37.2 98 16 154/69 (97) 95 Nasal Cannula 07/28/17 15:17 100 20 93 Nasal Cannula 2.0 07/28/17 15:00 Nasal Cannula 2.0 07/28/17 13:13 Nasal Cannula 07/28/17 11:37 37.0 107 20 171/80 (110) 95 2.0 07/28/17 11:30 Nasal Cannula 2.0 07/28/17 11:27 119 20 91 Nasal Cannula 2.0 07/28/17 08:00 Nasal Cannula 2.0 07/28/17 07:58 37.2 107 18 116/55 (75) 93 2.0 07/28/17 06:08 105 20 95 Nasal Cannula 2.0 07/28/17 04:11 36.6 91 21 130/76 (94) 93 Room Air 07/28/17 04:00 Nasal Cannula 2.0 07/27/17 23:59 Nasal Cannula 2.0 07/27/17 23:32 113 18 95 Nasal Cannula 2.0 07/27/17 23:22 36.9 112 22 144/75 (98) 93 Nasal Cannula 2.0 07/27/17 20:12 105 20 95 Nasal Cannula 2.0 07/27/17 19:50 36.3 121 28 135/86 93 Nasal Cannula 2.0 07/27/17 19:23 109 22 105/91 96 07/27/17 19:09 108 07/27/17 17:55 102 20 96 07/27/17 17:40 103 34 96 07/27/17 17:31 137/92 Physical Exam General Appearance: no apparent distress Eyes: EOMI ENT: hearing grossly normal Neck: trachea midline Respiratory/Chest: no respiratory distress, no accessory muscle use, + decreased breath sounds, + wheezing (faint wheeze no r/r/w ) Extremities: normal range of motion 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 acute/chronic hypoxic/hypercarbic respiratory failure - 2nd to COPD with exacerbation - antibiotics, steroids, nebs, supportive care. improving 2. COPD with exacerbation -appears related to bronchitis type pathology - doubt questionable infiltrate L base is real - clinical picture more diffuse. doxy to cover atypicals, steroids/nebs. imrpvoing. safe for med surg Cont theophylline; level acceptable. 3. T2DM - anticipate poor control with steroid use. increase lantus to 15 units BID. continue novolog with correction/carb coverage. AC/HS FSBS's. Hold metformin. 4. hypothyroidism - TSH in 06/30 was wnl. Cont synthroid. 5. DVT proph - xarelto. no evidnce acute VTE event 6. h/o PEs - xarelto. as above 7. GERD - zantac. 8. depression / mood disorder - continue all outpatient medications. 9. arthritis - hold NSAID while on high-dose steroids to avoid gastritis. 10. PT, OT when able as she is very deconditioned 11. chronic diarrhea - outpatient work-up. 12. chronic diastolic CHF - appears compensated. Cont lasix, daily weights, etc. Not on beta pauly - presumably due to severe COPD.
[2017-07-28] MEDS: MIRTAZAPINE TAB 15 MG TAB PO SCH (20:44)
[2017-07-28] MEDS: QUETIAPINE FUMARATE 200 MG TAB PO SCH (20:45)
[2017-07-28] MEDS: NORTRIPTYLINE HCL 10 MG CAP PO SCH (20:46)
[2017-07-28] MEDS: MONTELUKAST SOD 10 MG TAB PO SCH (20:46)
[2017-07-28] MEDS ORDERED: INSULIN GLARGINE SOLOSTAR 100 UNITS/ML 3 ML PEN SC SCH (21:00)
[2017-07-29] VITALS (8 sets, daily range): BP systolic 132–147; BP diastolic 69–75; PULSE 75–110; TEMP 36.7–36.8; O2SAT 89–97
[2017-07-29] MEDS: METHYLPREDNISOLONE IV 40 MG in SYRINGE 0 ML IV SCH (02:34)
[2017-07-29] MEDS: LEVOTHYROXINE 25 MCG TAB PO SCH (05:34)
[2017-07-29] MEDS: ALBUT/IPRATROP 3MG/0.5MG NEB 3 ML VIAL INH SCH ×3 (05:47→14:27)
[2017-07-29] MEDS: BUDESONIDE 0.5 MG/2 ML VIAL (PULMICORT) INH SCH (06:54)
--- NOTE | 2017-07-29 08:04 | Medical Student: [facility] ---
Med Student Progress Note Date of Service Jul 29, 2017. Subjective Pt evaluation today including: conversation w/ patient Mini is a 72-year-old female with a history of severe COPD and CHF who presented to the ED yesterday (07/27) with a cough and shortness of breath. She states that she was around a home health aide who had a cold about five days ago , and Mini became congestion shortly after, which is what she thinks caused this acute exacerbation of her COPD. She states this has happened before in a similar manner. Still feels congested with a headache, productive cough ( whitish with brown specks), nausea, and diarrhea (although she also said this was a chronic problem). Is on 2 L of oxygen at home during the day and 3 L at night and also uses nebulizing treatments daily - these were not enough to mitigate her symptoms. Also had fever, chills, and was lightheaded. PMH is also significant for PE in 2016, DMII, GERD, and tobacco use (quit five years ago after smoking 1-2 PPD). Today, she feels and appears much better. She is still on 2 L of oxygen and has had multiple DuoNeb treatments but states she is breathing much more easily and doesn't feel like she is wheezing as much. States that she did wake up this morning with severe shortness of breath and needed a neb treatment to restore her air. She is still congested, but this has improved, and she would like to go home this afternoon if possible. She is still coughing but it is no longer productive. She denies fever, chills, nausea, vomiting, chest pain, palpitations , claudication, dizziness. . Review of Systems Constitutional: No fever, No chills Respiratory: + cough, + wheezing, + shortness of breath, No sputum Cardiac: No chest pain, No orthopnea, No edema Abdomen: No pain, No nausea, No vomiting Musculoskeletal: No joint pain, No swelling Female : No dysuria, No urinary frequency Neurologic: No weakness, No numbness/tingling Skin: + itch (Arms and legs; similar to before when she had the rash, but has no rash today), No rash All Other Systems: Reviewed and Negative Objective Vital Signs Date Time Temp Pulse Resp B/P (MAP) Pulse Ox O2 Delivery O2 Flow Rate FiO2 07/29/17 08:01 36.8 77 18 132/69 (90) 94 2.0 07/29/17 06:55 78 20 97 Nasal Cannula 2.0 07/29/17 05:47 110 28 89 Nasal Cannula 2.0 07/29/17 01:07 Nasal Cannula 2.0 07/28/17 23:53 84 20 96 Nasal Cannula 2.0 07/28/17 23:47 36.7 95 20 126/67 (86) 91 Nasal Cannula 3.0 07/28/17 20:00 94 Nasal Cannula 2.0 07/28/17 19:33 93 20 89 Room Air 07/28/17 19:24 Nasal Cannula 2.0 07/28/17 19:00 36.7 102 20 157/69 (98) 91 Nasal Cannula 2.0 07/28/17 18:36 37.2 98 16 95 2.0 07/28/17 15:42 37.2 98 16 154/69 (97) 95 Nasal Cannula 07/28/17 15:17 100 20 93 Nasal Cannula 2.0 07/28/17 15:00 Nasal Cannula 2.0 07/28/17 13:13 Nasal Cannula 07/28/17 11:37 37.0 107 20 171/80 (110) 95 2.0 07/28/17 11:30 Nasal Cannula 2.0 07/28/17 11:27 119 20 91 Nasal Cannula 2.0 Physical Exam General Appearance: WD/WN, no apparent distress Respiratory/Chest: no respiratory distress, + decreased breath sounds, + wheezing (Much improved from yesterday) Cardiovascular: regular rate, rhythm, no edema Abdomen: non tender, soft Extremities: no pedal edema, no calf tenderness Skin: normal color, warm/dry Laboratory Results Last 24 Hours Test 07/28/17 11:14 07/28/17 16:21 07/28/17 20:23 07/29/17 07:35 Bedside Glucose 258 mg/dl 170 mg/dl 232 mg/dl 300 mg/dl Assessment and Plan Assessment and Plan: Assessment/Plan: This is a 72-year-old woman with a history of COPD and CHF who presented to the ED 07/27 with shortness of breath and productive cough. DDx includes COPD exacerbation, CHF exacerbation, pneumonia, PE, bronchitis, atelectasis, reactive airway disease. COPD exacerbation/shortness of breath: -2 L O2 during the day, increase to 3 L overnight; monitor O2 sats - patient is doing well and would like to go home this afternoon -Continue IV Solumedrol; hold PO steroids for now -Continue IV doxy to cover for pneumonia -Continue DuoNeb q4 -Consult pulmonology if no improvement -Repeat CXR if no improvement CHF: -Monitor for fluid overload/pulmonary edema -Continue Lasix DMII -Monitor blood glucose before meals -May be more difficult to control given steroid use -Hold metformin; increase lantus to 15 u BID Mood/depression/anxiety: -Continue home meds Hx of PE and DVT prophylaxis: -Continue home Xarelto Hypothyroid -Continue Synthroid
[2017-07-29] MEDS ORDERED: INSULIN GLARGINE SOLOSTAR 100 UNITS/ML 3 ML PEN SC SCH (09:00)
[2017-07-29] MEDS: FLUTICASONE PROPIONATE NA SPR 16 GM BTL NAE SCH (09:20)
[2017-07-29] MEDS: POTASSIUM CHLORIDE 20 MEQ TABCR PO SCH (09:21)
[2017-07-29] MEDS: FUROSEMIDE 40 MG TAB PO SCH (09:21)
[2017-07-29] MEDS: CEROVITE ADV FORMULA TAB PO SCH (09:22)
[2017-07-29] MEDS: CHOLECALCIFEROL 400 INTER.UNIT TAB PO SCH (09:23)
[2017-07-29] MEDS: RIVAROXABAN 20 MG TAB PO SCH (09:23)
[2017-07-29] MEDS: DOXYCYCLINE HYCLATE 100 MG CAP PO SCH (09:23)
[2017-07-29] MEDS: THEOPHYLLINE 400MG CONTROLLED REL TAB PO SCH (09:23)
[2017-07-29] MEDS: RANITIDINE HCL 150 MG TAB PO SCH (09:24)
[2017-07-29] MEDS: INSULIN ASPART 100 UNITS/ML 3 ML PEN SC SCH ×3 (09:27→17:12)
[2017-07-29] MEDS: GUAIFENESIN 600 MG TABCR PO SCH (09:38)
[2017-07-29] MEDS ORDERED: PRED10TA PO (16:10)
[2017-07-29] MEDS ORDERED: DXY100 PO (16:10)
--- NOTE | 2017-07-29 16:35 | Discharge Instructions ---
Discharge Instructions Date of Service Jul 29, 2017. Admission Reason for Admission: Copd Exacerbation Discharge Discharge Diagnosis / Problem: COPD exacerbation (bronchitis that flared your chronic lung disease) Discharge Goals Goal(s): Diagnostic testing, Therapeutic intervention Activity Recommendations Activity Limitations: resume your previous activity . Instructions / Follow-Up Instructions / Follow-Up COPD exacerbation -It appears that your chronic lung disease has been made worse by a form of bronchitis/congestion. This was either caused by a virus or by a bacterial infection. Because people in your situation tend to get better faster with antibiotics, we are going to continue your prescription for doxycycline (the antibiotic you were given in the hospital) for five more days (a total of 9 more doses, once you are discharged). You will get your second dose of the day tonight before you leave the hospital; that leaves you with a total of 9 more pills that will be sent to your pharmacy. -You seem very good at managing your home oxygen needs as well as your medications and inhalers. Keep up the good work! Prednisone -In the hospital, you were given the IV version of steroids. In order to keep you breathing well as you continue to fight this bronchitis/congestion, we need to continue these steroids in the pills form, called prednisone. This will be a tapering dose! So, here is how that works: Day 1 & 2 ( and Thursday) - 60 mg Day 3 & 4 (Thursday and Thursday) - 50 mg Day 5 & 6 (Thursday and Thursday) - 40 mg Day 7 & 8 (Thursday and ) - 30 mg Day 9 &10 - (Thursday and Thursday) - 20 mg From there, we need some more information about what dose of prednisone you are already on at home. If the dose is 20 mg per day, you can just stay on that as prescribed by your lung doctor. If it is a lower dose, we will have to taper one more day. We will call you tomorrow () or Thursday and get this information form you, and update your plan based on that. Inhaler questions for your lung doctor -We noticed that you are on a lot of inhalers. Some of these inhalers work the exact same way, so we want to make sure that this is, in fact, what your lung doctor is using to manage your chronic lung disease. If he or she says that yes , this is exactly what they want you to be on, then great! Nothing needs changed. But we wanted to make your doctor aware of this overlap. Until you see him again, definitely continue on your inhalers the way you've been taking them. -This is something we want you to specifically ask your lung doctor at your next appointment. If he or she has any questions or concerns, call [phone] Osorio. The following are the specific inhalers we want you to confirm: -You are on Spiriva twice a day - this is normally a once a day inhaler. Please confirm that this is the correct dose for you. -You are on Dulera as an inhaler, and Pulmicort/Brovana as nebulizer treatments. In theory, this could be redundant. Please confirm. Diabetes -Your blood sugar may be a little [id number] for a few days while you are on the steroid taper - that's ok! This is a temporary problem that will fix itself once you are done with the taper. Continue to use your insulin as prescribed by Dr. Rodriguez. Thank you for allowing us to be a part of your care while at [facility]! We hope you get well soon! -Maira and Dr. Osorio Current Hospital Diet Patient's current hospital diet: AHA Diet (Heart Healthy), Diabetes Type 2 Diet Discharge Diet Recommended Diet: AHA Diet (Heart Healthy), Diabetes Type 2 Diet Pending Studies Studies pending at discharge: no Medical Emergencies . Who to Call and When: Medical Emergencies: If at any time you feel your situation is an emergency, please call 911 immediately. . Non-Emergent Contact Non-Emergency issues call your: Primary Care Provider, Community Health Nurse . . "Provider Documentation" section prepared by Jose Osorio. . VTE Core Measure Inpt VTE Proph given/why not?: Other Anticoagulation
[2017-07-29] MEDS ORDERED: DOXYCYCLINE HYCLATE 100 MG CAP PO STA (16:40)
--- NOTE | 2017-07-29 19:01 | Discharge Summary ---
Discharge Summary Date of Service Jul 29, 2017. Discharge Summary Admission Date: Jul 27, 2017 at 18:55 Discharge Date: Jul 29, 2017 Discharge Disposition: Home Principal Diagnosis: COPD exacerbation Immunizations: Have You Had Influenza Vaccine: Yes History of Tetanus Vaccine?: Yes History of Pneumococcal: Yes History of Hepatitis B Vaccine: Unknown Procedures: [~ rep ct add3]] CHEST ONE VIEW PORTABLE HISTORY: 72 years-old Female EVALUATE RESPIRATORY DISTRESS.DYSPNEA acute respiratory distress with cough COMPARISON: Chest radiograph 06/19/2017 TECHNIQUE: Portable upright AP view of the chest FINDINGS: Cardiomediastinal and hilar silhouettes are within normal limits. Atherosclerosis of the aorta. There is no pneumothorax or pleural effusion. Linear subsegmental left basilar opacity is noted with mild left hemidiaphragmatic elevation. Lungs are otherwise clear. Bones appear grossly intact. IMPRESSION: Linear subsegmental left basilar opacity with mild left hemidiaphragm elevation suggest atelectasis. The above report was generated using voice recognition software. It may contain grammatical, syntax or spelling errors. Electronically signed by: Dm Zepeda M.D. 07/27/2017 3:31 PM Last Resulted CBC 07/27/17 14:48 Red Blood Count 4.32, Mean Corpuscular Volume 81.5, Mean Corpuscular Hemoglobin 25.5, Mean Corpuscular Hemoglobin Concent 31.3, Mean Platelet Volume 8.9, Neutrophils (%) (Auto) 42.5, Lymphocytes (%) (Auto) 39.8, Monocytes (%) (Auto) 11.8, Eosinophils (%) (Auto) 5.0, Basophils (%) (Auto) 0.6, Neutrophils # (Auto ) 2.80, Lymphocytes # (Auto) 2.62, Monocytes # (Auto) 0.78, Eosinophils # (Auto ) 0.33, Basophils # (Auto) 0.04 Last Resulted BMP 07/28/17 06:29 Medication Reconciliation New Medications: Prednisone (Prednisone) 10 Mg Tab 10 MG PO UD, #60 TAB see medical discharge instructions from hospital for tapering course Doxycycline Hyclate (Doxycycline Hyclate) 100 Mg Cap 100 MG PO BID, #9 CAP Continued Medications: Albuterol Sulf (Albuterol Sulfate) 2.5 Mg/3 Ml Nebu 2.5 MG INH Q4 PRN for Shortness of Breath Arformoterol Tartrate (Brovana) 15 Mcg/2 Ml Neb 15 MCG INH BID, INHALER Budesonide (Pulmicort Respules 0.5MG/2ML) 0.5 Mg/2 Ml Nebu 0.5 MG INH BID, EA Calcium Carbonate-Cholecalcife (Oyster Shell Calcium + D) 1 Tab Tab 1 TAB PO QAM Cholecalciferol (Vitamin D 400 Iu) 400 Unit Cap 400 INTER.UNIT PO QAM Clonazepam (Clonazepam) 0.5 Mg Tab 0.5 MG PO Q12H PRN for Anxiety/Agitation Fluticasone Propionate (Nasal) (Flonase Allergy Relief) 50 Mcg/Act Spr 1 SPRAY NANCY DAILY Furosemide (Lasix) 40 Mg Tab 40 MG PO QAM, TAB Levothyroxine Sodium (Synthroid) 25 Mcg Tab 25 MCG PO QAM Meloxicam (Meloxicam) 7.5 Mg Tab 7.5 MG PO BID Metformin Hcl (Glucophage) 1,000 Mg Tab 1000 MG PO BID, TAB Mirtazapine (Remeron) 45 Mg Tab 45 MG PO HS Mometasone Furoate-Formoterol (Dulera 200/5 Mcg) 1 Aer Aer 1 PUFF INH BID Montelukast Sodium (Singulair) 10 Mg Tab 10 MG PO HS Multiple Vitamins W/ Iron (Multi Vitamin with Iron) 1 Tab Tab 1 TAB PO QAM Nortriptyline (Pamelor) 10 Mg Cap 10 MG PO HS Potassium Chloride (Klor-Con M20) 20 Meq Tabcr 20 MEQ PO BID Quetiapine Fumarate (Seroquel) 400 Mg Tab 400 MG PO HS Ranitidine Hcl (Zantac) 150 Mg Tab 150 MG PO BID, TAB Rivaroxaban (Xarelto) 20 Mg Tab 20 MG PO QAM, TAB Theophylline (Rohit-24) 400 Mg Capcr 1 CAP PO QAM Tiotropium [place] (Spiriva Handihaler) 30 Puff/540 Mcg Aerp 1 CAP INH DAILY [Nerve Pill] () 1 TAB PO QAM Discontinued Medications: Prednisone (Prednisone) 20 Mg Tab 20 MG PO DAILY, #3 TAB 0 Refills Discharge Exam Physical Exam: General Appearance: no apparent distress Respiratory/Chest: no respiratory distress, no accessory muscle use, + decreased breath sounds (faint wheeze much more clear ) Extremities: normal inspection 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 acute/chronic hypoxic/hypercarbic respiratory failure - 2nd to COPD with exacerbation - antibiotics, steroids, nebs, supportive care. improving - stable for home 2. COPD with exacerbation -appears related to bronchitis type pathology - doubt questionable infiltrate L base is real - clinical picture more diffuse. -stable for home - finish 7 days doxycycline -taper prednisone - d/w pt ??home dose - she's not sure. will call her tomorrow to discuss - for now taper will be 60mg - taper down from there w 10mg reduction every other day, but base dose will depend, of course, on her home dosing -home med list also shows duplication on inhalers (dulera & brovana/budesonide) and she notes is on spiriva BID -- d/w her that this might be what her stained glass artist wants her on - but wrote down these specifics to discuss w pulm - she sees in near future 3. T2DM - A1c 7.5%, continue home meds, anticipate improvement to base control as steroids get weaned 4. hypothyroidism - TSH in 06/30 was wnl. Cont synthroid. 5. DVT proph - xarelto. no evidnce acute VTE event 6. h/o PEs - xarelto. as above 7. GERD - zantac. 8. chronic diastolic CHF - compensated stable for home Total Time Spent: Greater than 30 minutes This includes examination of the patient, discharge planning, medication reconciliation, and communication with other providers. Discharge Instructions Please refer to the electronic Patient Visit Report (Discharge Instructions) for additional information. Additional Copies To Anil Rodriguez D.O.
== END 2017-07-29 18:01 | disposition home health service (06) | DRG 190 ==
LOC: EDBD 14:50 → C.EDA 14:51 → C.2T 18:55 → ENRESERV 19:12 → C.MS2W 07-28 18:55
PROVIDERS: ADMIT Internal Medicine; ATTEND Family Medicine
DX: J44.1 Chronic obstructive pulmonary disease with (acute) exacerbation (principal); J96.21 Acute and chronic respiratory failure with hypoxia; I50.32 Chronic diastolic (congestive) heart failure; K21.9 Gastro-esophageal reflux disease without esophagitis; E11.9 Type 2 diabetes mellitus without complications; E03.9 Hypothyroidism, unspecified; M19.90 Unspecified osteoarthritis, unspecified site; R19.7 Diarrhea, unspecified; Z87.891 Personal history of nicotine dependence; Z86.711 Personal history of pulmonary embolism

== ENCOUNTER 2017-08-01 19:13 | Inpatient (IN) | payer OTHER ==
[~2017-08-01] VITALS: Ht 157.5 cm; Wt 84.7 kg
[~2017-08-01 19:13] MED LIST changes: +DXY100 PO; +NERVE PILL PO; -PRD20 PO; +PRED10TA PO
[2017-08-01] MEDS ORDERED: METHYLPREDNISOLONE 125 MG VIAL IV STA (19:22)
[2017-08-01] MEDS ORDERED: ALBUT/IPRATROP 3MG/0.5MG NEB 3 ML VIAL INH ONE (19:30)
[2017-08-01 19:31] LABS: BASO % 0.2 %; BASO ABS # 0.02 K/uL (0-0.2); COMPLETE YES; EOS % 0.1 %; HEMATOCRIT 34.2 % (37-47); IG% 1.4 %; LYMPH % 13.1 %; LYMPH ABS # 1.36 K/uL (1.2-3.4); MEAN CORPUSCULAR HEMOGLOBIN 26.1 pg (25-34); MEAN CORPUSCULAR HGB CONC 32.2 g/dl (32-36); MEAN PLATELET VOLUME 9.1 fL (7.4-10.4); MONO % 4.2 %; PLATELET COUNT 333 K/uL (130-400); RED BLOOD COUNT 4.22 M/uL (4.2-5.4); WHITE BLOOD COUNT 10.35 K/uL (4.8-10.8)
[2017-08-01 19:36] VITALS: PULSE 80; O2SAT 94
[2017-08-01 19:43] LABS: INR 1.1 (0.9-1.1); PARTIAL THROMBOPLASTIN RATIO 1.1; PROTHROMBIN TIME (PATIENT) 12.3 SECONDS (9.0-12.0)
--- NOTE | 2017-08-01 19:48 | DIAGNOSTIC IMAGING REPORT ---
CHEST ONE VIEW PORTABLE CLINICAL HISTORY: Respiratory difficulty. Possible pneumonia. COMPARISON STUDY: 07/27/2017 FINDINGS: The cardiac and mediastinal contours are normal. There is no evidence of focal pulmonary consolidation. There is no evidence of failure. No pleural effusions are visualized.[ IMPRESSION: No active disease in the chest. Electronically signed by: Hang Moses M.D. 08/01/2017 7:47 PM Dictated Date/Time: 08/01/2017 7:46 PM
[2017-08-01 19:58] LABS: BUN/CREATININE RATIO 31.5 (10-20); CALCIUM 10.5 mg/dl (8.5-10.1); CREATININE 1.06 mg/dl (0.60-1.20); POTASSIUM 4.8 mmol/L (3.5-5.1)
[2017-08-01] MEDS ORDERED: ATR10 PO (20:25)
[2017-08-01] MEDS ORDERED: MONTELUKAST SOD 10 MG TAB PO SCH (21:00)
[2017-08-01] MEDS ORDERED: CLONAZEPAM 0.5 MG TAB PO PRN (21:00)
[2017-08-01] MEDS ORDERED: MAGNESIUM HYDROXIDE SUSP 30 ML UDC PO PRN ×2 (21:00→23:15)
[2017-08-01] MEDS ORDERED: hydrOXYzine HCL 10 MG TAB PO PRN (21:00)
[2017-08-01] MEDS ORDERED: RANITIDINE HCL 150 MG TAB PO SCH (21:00)
[2017-08-01] MEDS ORDERED: POTASSIUM CHLORIDE 20 MEQ TABCR PO SCH (21:00)
[2017-08-01] MEDS ORDERED: ACETAMINOPHEN 325 MG TAB PO PRN ×2 (21:00→23:15)
[2017-08-01] MEDS ORDERED: ONDANSETRON INJ 2 MG/ML 2 ML VIAL IV PRN (21:00)
[2017-08-01] MEDS ORDERED: METFORMIN HCL 500 MG TAB PO SCH (21:00)
[2017-08-01] MEDS ORDERED: ALBUTEROL 0.083% NEBU SOLN 3 ML VIAL INH PRN (21:00)
[2017-08-01] MEDS ORDERED: MELOXICAM 7.5 MG TAB PO SCH (21:00)
[2017-08-01] MEDS ORDERED: MOMETASONE FUROATE FORMOTEROL INH SCH (21:00)
[2017-08-01] MEDS ORDERED: POLYETHYLENE (MIRALAX) 17 GM PACK PO PRN (21:00)
[2017-08-01] MEDS ORDERED: QUETIAPINE FUMARATE 200 MG TAB PO SCH (21:00)
[2017-08-01] MEDS ORDERED: DOXYCYCLINE HYCLATE 100 MG CAP PO SCH (21:00)
[2017-08-01] MEDS ORDERED: MIRTAZAPINE 45 MG PO SCH (21:00)
[2017-08-01] MEDS ORDERED: ALUMINUM/MAGNESIUM/SIMETH (MAALOX MAX) 30 ML UDC PO PRN ×2 (21:00→23:15)
[2017-08-01] MEDS ORDERED: NORTRIPTYLINE HCL 10 MG CAP PO SCH (21:00)
[2017-08-01] MEDS ORDERED: BUDESONIDE 0.5 MG/2 ML VIAL (PULMICORT) INH SCH (21:00)
[2017-08-01] MEDS ORDERED: ARFORMOTEROL TART 15MCG/2ML VIAL INH SCH (21:00)
--- NOTE | 2017-08-01 21:14 | History and Physical ---
History & Physical Date & Time of Service: Aug 01, 2017 at 21:13 Chief Complaint: Shortness Of Breath Primary Care Physician: Anli Rdoriguez D.O. History of Present Illness Source: patient Mini is a 72 yo F with COPD, on 2L oxygen constantly,chronic diastolic CHF, and hypothyroidism who presents with worsening shortness of breath. She was discharged from [facility] 2 days ago after being treated for a COPD exacerbation with prednisone and also doxycycline. She reports she was taking her medications and her inhaler, but was not sure what dose of prednisone she was on. She was feeling very short of breath even walking a few steps. She tried increasing her oxygen to 3L but this did not have an effect. She denied any chest pain. She reports she still had a cough which made her ribs hurt. She denied any abdominal pain or leg swelling. She reports at her house there is a lot of mold and the landlord has not cleared it up. She is looking to move to [facility]. She currently has caregivers in for 4 nights per week and 3 days per week. Of note, this is her 6th admission and 7th visit to the hospital for COPD exacerbations since September. Past Medical/Surgical History (1) Acid reflux Status: Chronic (2) CHF (congestive heart failure) Status: Chronic (3) COPD (chronic obstructive pulmonary disease) Status: Chronic (4) Meningitis Status: Resolved (5) Ovarian cancer Status: Resolved (6) Hypothyroidism (7) Chronic respiratory failure, on 2L oxygen at home Family History No pertient family history secondary to age Social History Lives at home alone. Feels safe at home sometimes, but looking to move to [facility]. Has caregivers come in (as per HPI). Stopped smoking 5 years ago. Smoking Status: Former Smoker Drug Use: none Marital Status: Housing status: lives alone Occupational Status: retired Immunizations History of Influenza Vaccine: Yes History of Tetanus Vaccine?: Yes History of Pneumococcal: Yes History of Hepatitis B Vaccine: Unknown Multi-Drug Resistant Organisms History of MDRO: No Allergies Coded Allergies: Rabies Vaccine (Verified Allergy, Severe, HIVES, 08/01/17) Ragweed (Verified Allergy, Unknown, UNKNOWN, 08/01/17) Tomato (Verified Allergy, Unknown, HIVES, 08/01/17) Home Medications Scheduled Arformoterol Tartrate (Brovana), 15 MCG INH BID Budesonide (Pulmicort Respules 0.5MG/2ML), 0.5 MG INH BID Calcium Carbonate-Cholecalcife (Oyster Shell Calcium + D), 1 TAB PO QAM Cholecalciferol (Vitamin D 400 Iu), 400 INTER.UNIT PO QAM Doxycycline Hyclate (Doxycycline Hyclate), 100 MG PO BID Fluticasone Propionate (Nasal) (Flonase Allergy Relief), 1 SPRAY NANCY DAILY Furosemide (Lasix), 40 MG PO QAM Levothyroxine Sodium (Synthroid), 25 MCG PO QAM Meloxicam (Meloxicam), 7.5 MG PO BID Metformin Hcl (Glucophage), 1,000 MG PO BID Mirtazapine (Remeron), 45 MG PO HS Mometasone Furoate-Formoterol (Dulera 200/5 Mcg), 1 PUFF INH BID Montelukast Sodium (Singulair), 10 MG PO HS Multiple Vitamins W/ Iron (Multi Vitamin with Iron), 1 TAB PO QAM Nortriptyline (Pamelor), 10 MG PO HS Potassium Chloride (Klor-Con M20), 20 MEQ PO BID Prednisone (Prednisone), 10 MG PO UD Quetiapine Fumarate (Seroquel), 400 MG PO HS Ranitidine Hcl (Zantac), 150 MG PO BID Rivaroxaban (Xarelto), 20 MG PO QAM Theophylline (Rohit-24), 1 CAP PO QAM Tiotropium [place] (Spiriva Handihaler), 1 CAP INH DAILY Scheduled PRN Albuterol Sulf (Albuterol Sulfate), 2.5 MG INH Q4 PRN for Shortness of Breath Clonazepam (Clonazepam), 0.5 MG PO Q12H PRN for Anxiety/Agitation Hydroxyzine HCl (Hydroxyzine HCl), 10 MG PO TID PRN for Anxiety Review of Systems See HPI for pertinent positives & negatives. A total of 10 systems reviewed and were otherwise negative. Physical Exam Vital Signs Date Time Temp Pulse Resp B/P (MAP) Pulse Ox O2 Delivery O2 Flow Rate FiO2 08/01/17 20:13 108 17 95 08/01/17 20:01 134/72 08/01/17 19:43 89 12 98 08/01/17 19:36 80 26 94 Nasal Cannula 2.0 08/01/17 19:32 91 08/01/17 19:31 139/65 08/01/17 19:23 94 Nasal Cannula 2.0 08/01/17 19:22 94 Nasal Cannula 2.0 08/01/17 19:18 116/80 08/01/17 19:18 94 Nasal Cannula 2.0 08/01/17 19:18 37.1 99 24 116/80 94 Nasal Cannula 2.0 General Appearance: WD/WN, + mild distress, + thin Head: normocephalic, atraumatic Eyes: normal inspection, PERRL ENT: hearing grossly normal Neck: supple, no JVD Respiratory/Chest: + wheezing (diffuse wheeze throughout chest) Cardiovascular: regular rate, rhythm, no murmur, normal peripheral pulses Abdomen/GI: normal bowel sounds, non tender, soft Back: no CVA tenderness, no muscle spasm Extremities/Musculoskelatal: no calf tenderness, no pedal edema Neurologic/Psych: alert, normal mood/affect, oriented x 3 Skin: no rash Diagnostics Laboratory Results Results Past 24 Hours Test 08/01/17 19:15 08/01/17 19:29 Range/Units White Blood Count 10.35 4.8-10.8 K/uL Red Blood Count 4.22 4.2-5.4 M/uL Hemoglobin 11.0 12.0-16.0 g/dL Hematocrit 34.2 37-47 % Mean Corpuscular Volume 81.0 80-100 fL Mean Corpuscular Hemoglobin 26.1 25-34 pg Mean Corpuscular Hemoglobin Concent 32.2 32-36 g/dl Platelet Count 333 130-400 K/uL Mean Platelet Volume 9.1 7.4-10.4 fL Neutrophils (%) (Auto) 81.0 % Lymphocytes (%) (Auto) 13.1 % Monocytes (%) (Auto) 4.2 % Eosinophils (%) (Auto) 0.1 % Basophils (%) (Auto) 0.2 % Neutrophils # (Auto) 8.39 1.4-6.5 K/uL Lymphocytes # (Auto) 1.36 1.2-3.4 K/uL Monocytes # (Auto) 0.43 0.11-0.59 K/uL Eosinophils # (Auto) 0.01 0-0.5 K/uL Basophils # (Auto) 0.02 0-0.2 K/uL RDW Standard Deviation 50.6 36.4-46.3 fL RDW Coefficient of Variation 17.0 11.5-14.5 % Immature Granulocyte % (Auto) 1.4 % Immature Granulocyte # (Auto) 0.14 0.00-0.02 K/uL Prothrombin Time 12.3 9.0-12.0 SECONDS Prothromb Time International Ratio 1.1 0.9-1.1 Activated Partial Thromboplast Time 27.4 21.0-31.0 SECONDS Partial Thromboplastin Ratio 1.1 Sodium Level 140 136-145 mmol/L Potassium Level 4.8 3.5-5.1 mmol/L Chloride Level 99 98-107 mmol/L Carbon Dioxide Level 30 21-32 mmol/L Anion Gap 11.0 3-11 mmol/L Blood Urea Nitrogen 33 7-18 mg/dl Creatinine 1.06 0.60-1.20 mg/dl Est Creatinine Clear Calc Drug Dose 50.0 ml/min Estimated GFR () 60.3 Estimated GFR (Non- 52.0 BUN/Creatinine Ratio 31.5 10-20 Random Glucose 253 70-99 mg/dl Calcium Level 10.5 8.5-10.1 mg/dl Chemistry Specimen Hemolysis Bedside Troponin I < 0.030 0-0.045 ng/ml Diagnostic Radiology CHEST ONE VIEW PORTABLE CLINICAL HISTORY: Respiratory difficulty. Possible pneumonia. COMPARISON STUDY: 07/27/2017 FINDINGS: The cardiac and mediastinal contours are normal. There is no evidence of focal pulmonary consolidation. There is no evidence of failure. No pleural effusions are visualized.[ IMPRESSION: No active disease in the chest. EKG Normal sinus rhythm Biatrial enlargement Abnormal ECG When compared with ECG of 27-JUL-2017 15:11, Premature atrial complexes are no longer Present Impression Assessment and Plan 72 yo F with COPD and chronic respiratory failure, recent DC from exacerbation - likely was not taking appropriate amount of prednisone so symptoms returned. COPD exacerbation - Received 125mg Solu-Medrol in ED, will provide another dose in AM then likely switch back to PO dose as long as improving - Continue doxycycline PO - Aim for O2 sats around 90% (her baseline) Acute on chronic respiratory failure - Continue 3L as tolerated, wean to 2L as able - Continue current inhaler regime with duonebs PRN Chronic diastolic CHF - I&O monitoring - Daily weights Type 2 DM - Continue home metformin Depression - Continue Remeron and Seroquel GERD - Continue Zantac Hx of PE - Continue Xarelto VTE: Xarelto Dispo: Obs on Tele Code status: FULL (Pt confirmed this today) Attending addendum: I have physically seen this patient, have supervised the medical residents activities, and agree with the H&P unless as otherwise noted. Assessment and Plan: COPD exacerbation-- This will be the patient's fifth admission since April. She reports that she does have leaky pipes at the complex where she lives, and there has been obvious mold in the building. Suspect her frequent admissions have been triggered by some type of allergic or immunologic response to her environment. Steroids as noted above. 3 L nasal cannula oxygen humidified for now, with titration to her baseline 2 L Duonebs every 6 hours while awake and every 2 hours when necessary. Continue Xarelto for pulmonary embolism history. Level of Care Telemetry Advanced Directives Existing Advance Directive: No Existing Living Will: No Existing Power of Linoleum Printer: No Resuscitation Status FULL RESUSCITATION VTE Prophylaxis VTE Risk Assessment Done? Y/N: Yes Risk Level: Moderate Given or contraindicated: Other Anticoagulation Resident Tracking Resident Involvement: Resident Care Provided Care Provided: Adult Hospital Medicine
[2017-08-01] MEDS ORDERED: IV FLUIDS COMPLETED PRN (21:30)
[2017-08-01 21:35] VITALS: BP 143/72; PULSE 97; TEMP 36.5; O2SAT 92; BMI 35.9
--- NOTE | 2017-08-01 21:52 | EMERGENCY ROOM VISIT NOTE ---
History Report prepared by Bianka: Erin Oshea Under the Supervision of: Dr. Clem Crump M.D. First contact with patient: 19:18 Chief Complaint: SHORTNESS OF BREATH Stated Complaint: SHORTNESS OF BREATH History of Present Illness The patient is a 72 year old female who presents to the Emergency Room with complaints of worsening shortness of breath starting three days ago. The patient states that she has a history of COPD. She states that she is normally on 2 L of O2 at home, but has been using 3 L. The patient complains of a cough that sometimes produces a white substance with brown in it. She denies fever. The patient denies chest pain and abdominal pain. The patient complains of fatigue. She notes that she was given a nebulizer in the ambulance and is on steroids daily. Prednisone 10 mg daily. Source of History: patient Onset: 3 days ago Position: other (global) Quality: other (global) Timing: worsening Associated Symptoms: + cough, + fatigue, No fevers, No chest pain, No abdominal pain Note: The patient complains of producing a white substance with brown in it when she coughs. Review of Systems See HPI for pertinent positives & negatives. A total of 10 systems reviewed and were otherwise negative. Past Medical & Surgical Medical Problems: (1) Acid reflux (2) Acut on chronic CHF exacerbation (3) Acute respiratory failure with hypoxia (4) CHF (congestive heart failure) (5) COPD (chronic obstructive pulmonary disease) (6) COPD exacerbation (7) Hypoxia (8) icd 10 code J44.9 (9) icd 10 code J44.9 (10) Meningitis (11) Ovarian cancer Family History No pertient family history secondary to age Social History Smoking Status: Former Smoker Alcohol Use: none Drug Use: none Marital Status: Housing Status: lives with family Occupation Status: retired Current/Historical Medications Scheduled Arformoterol Tartrate (Brovana), 15 MCG INH BID Budesonide (Pulmicort Respules 0.5MG/2ML), 0.5 MG INH BID Calcium Carbonate-Cholecalcife (Oyster Shell Calcium + D), 1 TAB PO QAM Cholecalciferol (Vitamin D 400 Iu), 400 INTER.UNIT PO QAM Doxycycline Hyclate (Doxycycline Hyclate), 100 MG PO BID Fluticasone Propionate (Nasal) (Flonase Allergy Relief), 1 SPRAY NANCY DAILY Furosemide (Lasix), 40 MG PO QAM Levothyroxine Sodium (Synthroid), 25 MCG PO QAM Meloxicam (Meloxicam), 7.5 MG PO BID Metformin Hcl (Glucophage), 1,000 MG PO BID Mirtazapine (Remeron), 45 MG PO HS Mometasone Furoate-Formoterol (Dulera 200/5 Mcg), 1 PUFF INH BID Montelukast Sodium (Singulair), 10 MG PO HS Multiple Vitamins W/ Iron (Multi Vitamin with Iron), 1 TAB PO QAM Nortriptyline (Pamelor), 10 MG PO HS Potassium Chloride (Klor-Con M20), 20 MEQ PO BID Prednisone (Prednisone), 10 MG PO UD Quetiapine Fumarate (Seroquel), 400 MG PO HS Ranitidine Hcl (Zantac), 150 MG PO BID Rivaroxaban (Xarelto), 20 MG PO QAM Theophylline (Rohit-24), 1 CAP PO QAM Tiotropium [place] (Spiriva Handihaler), 1 CAP INH DAILY Scheduled PRN Albuterol Sulf (Albuterol Sulfate), 2.5 MG INH Q4 PRN for Shortness of Breath Clonazepam (Clonazepam), 0.5 MG PO Q12H PRN for Anxiety/Agitation Hydroxyzine HCl (Hydroxyzine HCl), 10 MG PO TID PRN for Anxiety Allergies Coded Allergies: Rabies Vaccine (Verified Allergy, Severe, HIVES, 08/01/17) Ragweed (Verified Allergy, Unknown, UNKNOWN, 08/01/17) Tomato (Verified Allergy, Unknown, HIVES, 08/01/17) Physical Exam Vital Signs Date Time Temp Pulse Resp B/P (MAP) Pulse Ox O2 Delivery O2 Flow Rate FiO2 08/01/17 21:00 142/87 08/01/17 20:48 100 15 95 08/01/17 20:31 144/72 08/01/17 20:18 109 23 95 08/01/17 20:13 108 17 95 08/01/17 20:01 134/72 08/01/17 19:43 89 12 98 08/01/17 19:36 80 26 94 Nasal Cannula 2.0 08/01/17 19:32 91 08/01/17 19:31 139/65 08/01/17 19:23 94 Nasal Cannula 2.0 08/01/17 19:22 94 Nasal Cannula 2.0 08/01/17 19:18 116/80 08/01/17 19:18 94 Nasal Cannula 2.0 08/01/17 19:18 37.1 99 24 116/80 94 Nasal Cannula 2.0 Physical Exam Constitutional: Vital signs reviewed. Eyes: Pupils are equal round reactive to light. Conjunctiva are noninjected. ENT: Pharynx is clear without erythema or exudate. Mucous membranes are dry. Neck supple without meningeal signs. Respiratory: Wheezing to auscultation bilaterally. Breath sounds are equal bilaterally. Cardiovascular: Regular rate and rhythm. No rubs or gallops. GI: Soft, nondistended and nontender. Bowel sounds are present. Musculoskeletal: No peripheral edema. No lower extremity tenderness. Integumentary: No cyanosis. Neurological: The patient is awake and alert. No focal deficits. Psychiatric: Normal affect. Medical Decision & Procedures ER Provider Diagnostic Interpretation: Radiology results as stated below per my review and the radiologist's interpretation: CHEST ONE VIEW PORTABLE CLINICAL HISTORY: Respiratory difficulty. Possible pneumonia. COMPARISON STUDY: 07/27/2017 FINDINGS: The cardiac and mediastinal contours are normal. There is no evidence of focal pulmonary consolidation. There is no evidence of failure. No pleural effusions are visualized.[ IMPRESSION: No active disease in the chest. Electronically signed by: Hang Moses M.D. 08/01/2017 7:47 PM Dictated Date/Time: 08/01/2017 7:46 PM Laboratory Results 08/01/17 19:15 Red Blood Count 4.22, Mean Corpuscular Volume 81.0, Mean Corpuscular Hemoglobin 26.1, Mean Corpuscular Hemoglobin Concent 32.2, Mean Platelet Volume 9.1, Neutrophils (%) (Auto) 81.0, Lymphocytes (%) (Auto) 13.1, Monocytes (%) (Auto) 4.2, Eosinophils (%) (Auto) 0.1, Basophils (%) (Auto) 0.2, Neutrophils # (Auto) 8.39, Lymphocytes # (Auto) 1.36, Monocytes # (Auto) 0.43, Eosinophils # (Auto) 0.01, Basophils # (Auto) 0.02 08/01/17 19:15 Test 08/01/17 19:15 08/01/17 19:29 White Blood Count 10.35 K/uL (4.8-10.8) Red Blood Count 4.22 M/uL (4.2-5.4) Hemoglobin 11.0 g/dL (12.0-16.0) Hematocrit 34.2 % (37-47) Mean Corpuscular Volume 81.0 fL (80-100) Mean Corpuscular Hemoglobin 26.1 pg (25-34) Mean Corpuscular Hemoglobin Concent 32.2 g/dl (32-36) Platelet Count 333 K/uL (130-400) Mean Platelet Volume 9.1 fL (7.4-10.4) Neutrophils (%) (Auto) 81.0 % Lymphocytes (%) (Auto) 13.1 % Monocytes (%) (Auto) 4.2 % Eosinophils (%) (Auto) 0.1 % Basophils (%) (Auto) 0.2 % Neutrophils # (Auto) 8.39 K/uL (1.4-6.5) Lymphocytes # (Auto) 1.36 K/uL (1.2-3.4) Monocytes # (Auto) 0.43 K/uL (0.11-0.59) Eosinophils # (Auto) 0.01 K/uL (0-0.5) Basophils # (Auto) 0.02 K/uL (0-0.2) RDW Standard Deviation 50.6 fL (36.4-46.3) RDW Coefficient of Variation 17.0 % (11.5-14.5) Immature Granulocyte % (Auto) 1.4 % Immature Granulocyte # (Auto) 0.14 K/uL (0.00-0.02) Prothrombin Time 12.3 SECONDS (9.0-12.0) Prothromb Time International Ratio 1.1 (0.9-1.1) Activated Partial Thromboplast Time 27.4 SECONDS (21.0-31.0) Partial Thromboplastin Ratio 1.1 Anion Gap 11.0 mmol/L (3-11) Est Creatinine Clear Calc Drug Dose 50.0 ml/min Estimated GFR () 60.3 Estimated GFR (Non- 52.0 BUN/Creatinine Ratio 31.5 (10-20) Calcium Level 10.5 mg/dl (8.5-10.1) Chemistry Specimen Hemolysis Bedside Troponin I < 0.030 ng/ml (0-0.045) Laboratory results as reviewed by me. Medications Administered Medications (Trade) Dose Ordered Sig/Lulú Route Start Time Stop Time Status Last Admin Dose Admin Methylprednisolone Sodium Succinate (Solu-Medrol IV) 125 mg NOW STAT IV 08/01/17 19:22 08/01/17 19:24 DC 08/01/17 19:35 125 MG Albuterol/ Ipratropium (Duoneb) 12 ml ONE ONCE INH 08/01/17 19:30 08/01/17 19:31 DC 08/01/17 19:34 12 ML ECG Indication: SOB/dyspnea Rate (beats per minute): 91 Rhythm: normal sinus Findings: no acute ischemic change, other (atrial enlargement ) ED Course 1918: The patient was evaluated in room C5. A complete history and physical exam was performed. 1921: Ordered Solu-Medrol IV 125 mg IV. 1929: Ordered Duoneb 12 ml INH. 2028: I reevaluated the patient and she is still significantly wheezing. The patient still feels short of breath, but feels better. Her O2 stats are 92%. 2106: [place] [facility] [place] discussed the patient and her results. The patient will be further evaluated by Dr. Norris. Medical Decision This is a 72-year-old female who presents with shortness of breath. Differential diagnosis includes COPD exacerbation, pneumonia, bronchitis, URI, CHF. I did perform a limited focused review of portions of the patient's old chart on the electronic medical record. The patient was admitted for COPD exacerbation on July 27. I did evaluate the patient as noted above. The patient is presenting with shortness breath and cough. She does have COPD and has significant wheezing bilaterally. IV access was established. The patient was placed on a continuous cardiac catheterization technician. I did treat her with an hour-long continuous DuoNeb. She was also given Solu-Medrol 125 mg IV. I did order and personally review the patient's 12-lead EKG and chest x-ray as described above. There is no evidence of pneumonia. I did order and review the patient's blood work as noted in the electronic medical record. Troponin is negative. She has chronic anemia. She has hyperglycemia but is diabetic. I did reassess the patient. She still has persistent wheezing on exam. She does feel slightly better but still says she feels very short of breath. She will be hospitalized for further care and evaluation. I did discuss case with the hospitalist and director case management. Medication Reconcilliation Current Medication List: was personally reviewed by me Blood Pressure Screening Patient's blood pressure: Normal blood pressure Blood pressure disposition: Did not require urgent referral Consults Time Called: 2032 Consulting Physician: [place] [facility] [place]ed Call: [address] [place] [facility] [place] We discussed the patient and her results. The patient will be further evaluated by Dr. Norris. Impression Primary Impression: COPD exacerbation Additional Impressions: Acute bronchitis Anemia Hyperglycemia due to type 2 diabetes mellitus Scribe Attestation The scribe's documentation has been prepared under my direct and personally reviewed by me in its entirety. I confirm that the note above accurately reflects all work, treatment, procedures, and medical decision making performed by me. Departure Information Dispostion Being Evaluated By Hospitalist Referrals Anil Rodriguez D.O. (PCP) Patient Instructions My [facility] Problem Qualifiers Additional Impressions: Acute bronchitis Bronchitis organism: unspecified organism Qualified Codes: J20.9 - Acute bronchitis, unspecified Anemia Anemia type: unspecified type Qualified Codes: D64.9 - Anemia, unspecified Hyperglycemia due to type 2 diabetes mellitus Diabetes mellitus adjunct faculty for medical terminology insulin use: unspecified shelter insulin use status Qualified Codes: E11.65 - Type 2 diabetes mellitus with hyperglycemia
[2017-08-01 22:15] VITALS: PULSE 104; O2SAT 94
[2017-08-01] MEDS: DOXYCYCLINE HYCLATE 100 MG CAP PO SCH (23:20)
[2017-08-01] MEDS: RANITIDINE HCL 150 MG TAB PO SCH (23:20)
[2017-08-01] MEDS: POTASSIUM CHLORIDE 20 MEQ TABCR PO SCH (23:20)
[2017-08-01] MEDS: METFORMIN HCL 500 MG TAB PO SCH (23:20)
[2017-08-01] MEDS: QUETIAPINE FUMARATE 200 MG TAB PO SCH (23:21)
[2017-08-01] MEDS: MIRTAZAPINE TAB 15 MG TAB PO SCH (23:21)
[2017-08-01] MEDS: MONTELUKAST SOD 10 MG TAB PO SCH (23:21)
[2017-08-02] VITALS (17 sets, daily range): BP systolic 115–151; BP diastolic 63–76; PULSE 74–101; TEMP 36.3–37.2; O2SAT 90–97
[2017-08-02] MEDS: ALBUTEROL 0.083% NEBU SOLN 3 ML VIAL INH PRN ×3 (03:25→15:19)
[2017-08-02] MEDS ORDERED: NURSING DECISION MEDICATION ORDER SCH (03:45)
[2017-08-02] MEDS ORDERED: ONDANSETRON INJ 2 MG/ML 2 ML VIAL IV PRN (03:45)
[2017-08-02] MEDS ORDERED: COUGH DROP (SUGAR FREE) LOZ 24 LOZ/1 BOX PO PRN (03:45)
[2017-08-02] MEDS ORDERED: POLYETHYLENE (MIRALAX) 17 GM PACK PO PRN (04:00)
[2017-08-02] MEDS: LEVOTHYROXINE 25 MCG TAB PO SCH (06:08)
[2017-08-02] MEDS: ARFORMOTEROL TART 15MCG/2ML VIAL INH SCH ×2 (07:04→19:32)
[2017-08-02] MEDS: BUDESONIDE 0.5 MG/2 ML VIAL (PULMICORT) INH SCH ×2 (07:05→19:32)
[2017-08-02] MEDS: DULERA~ORDER AWAITING ACTION SCH ×2 (08:00→16:00)
[2017-08-02] MEDS: MELOXICAM 7.5 MG TAB PO SCH ×2 (08:34→21:18)
[2017-08-02] MEDS: METFORMIN HCL 500 MG TAB PO SCH ×2 (08:35→17:18)
[2017-08-02] MEDS: POTASSIUM CHLORIDE 20 MEQ TABCR PO SCH ×2 (08:35→21:19)
[2017-08-02] MEDS: RANITIDINE HCL 150 MG TAB PO SCH ×2 (08:35→21:20)
[2017-08-02] MEDS: CHOLECALCIFEROL 400 INTER.UNIT TAB PO SCH (08:35)
[2017-08-02] MEDS: RIVAROXABAN 10 MG TAB PO SCH (08:35)
[2017-08-02] MEDS: TIOTROPIUM BROMIDE 5 PUFF/90 MCG INH INH SCH (08:37)
[2017-08-02] MEDS: FUROSEMIDE 40 MG TAB PO SCH (08:37)
[2017-08-02] MEDS: CEROVITE ADV FORMULA TAB PO SCH (08:37)
[2017-08-02] MEDS: FLUTICASONE PROPIONATE NA SPR 16 GM BTL NAE SCH (08:37)
[2017-08-02] MEDS: THEOPHYLLINE 400MG CONTROLLED REL TAB PO SCH (08:38)
[2017-08-02] MEDS: DOXYCYCLINE HYCLATE 100 MG CAP PO SCH ×2 (08:38→21:20)
[2017-08-02] MEDS ORDERED: LEVOTHYROXINE 25 MCG TAB PO SCH (09:00)
[2017-08-02] MEDS ORDERED: MULTIPLE VITAMINS PO SCH (09:00)
[2017-08-02] MEDS ORDERED: FUROSEMIDE 40 MG TAB PO SCH (09:00)
[2017-08-02] MEDS ORDERED: ARFORMOTEROL TART 15MCG/2ML VIAL INH SCH (09:00)
[2017-08-02] MEDS ORDERED: RIVAROXABAN 10 MG TAB PO SCH (09:00)
[2017-08-02] MEDS ORDERED: THEOPHYLLINE PO SCH (09:00)
[2017-08-02] MEDS ORDERED: TIOTROPIUM BROMIDE 5 PUFF/90 MCG INH INH SCH (09:00)
[2017-08-02] MEDS ORDERED: FLUTICASONE PROPIONATE NA SPR 16 GM BTL NAE SCH (09:00)
[2017-08-02] MEDS ORDERED: CHOLECALCIFEROL 400 INTER.UNIT TAB PO SCH (09:00)
[2017-08-02] MEDS ORDERED: IRON PO SCH (09:00)
[2017-08-02] MEDS ORDERED: ALBUT/IPRATROP 3MG/0.5MG NEB 3 ML VIAL INH ONE (17:15)
[2017-08-02] MEDS ORDERED: NURSING VERBAL MED ORDER STA (17:51)
[2017-08-02] MEDS: CLONAZEPAM 0.5 MG TAB PO PRN (18:03)
--- NOTE | 2017-08-02 19:12 | Progress Note ---
Subjective Date of Service: Aug 02, 2017. Subjective Pt evaluation today including: conversation w/ patient, physical exam, chart review, lab review, review of inpatient medication list feeling better again - went home doing well then got sicker again. dr ulloa at admission astutely identified that her building sounds to be rather significantly troubled with mold noweight gain no edema Problem List Medical Problems: (1) Acute bronchitis Status: Acute (2) Acute exacerbation of chronic obstructive pulmonary disease Status: Acute (3) Anemia Status: Acute (4) Anemia Status: Acute (5) COPD exacerbation Status: Acute (6) COPD exacerbation Status: Acute (7) COPD exacerbation Status: Acute (8) COPD exacerbation Status: Acute (9) Hyperglycemia due to type 2 diabetes mellitus Status: Acute (10) Hypomagnesemia Status: Acute (11) Hypoxia Status: Acute (12) Lactic acidosis Status: Acute (13) Sepsis Status: Acute (14) Shortness of breath Status: Acute (15) Tachypnea Status: Acute Review of Systems all other ROS otherwise negative except for as above Objective Vital Signs Date Time Temp Pulse Resp B/P (MAP) Pulse Ox O2 Delivery O2 Flow Rate FiO2 08/02/17 18:09 88 20 96 Nasal Cannula 2.0 08/02/17 16:00 97 Nasal Cannula 2.0 08/02/17 15:21 36.4 86 18 151/73 (99) 93 2.0 08/02/17 15:19 88 16 96 Nasal Cannula 2.0 08/02/17 12:01 94 Nasal Cannula 2.0 08/02/17 11:20 74 16 96 Nasal Cannula 2.0 08/02/17 11:11 36.8 78 18 115/63 (80) 94 08/02/17 08:01 94 Nasal Cannula 2.0 08/02/17 07:39 36.3 80 18 138/76 (96) 94 2.0 08/02/17 07:05 92 16 94 Nasal Cannula 2.0 08/02/17 04:57 94 Nasal Cannula 2.0 08/02/17 04:09 36.6 94 22 144/74 (97) 90 Nasal Cannula 2.0 08/02/17 03:25 101 20 96 Nasal Cannula 2.0 08/02/17 00:00 94 Nasal Cannula 2.0 08/02/17 00:00 94 Nasal Cannula 2.0 08/01/17 22:15 104 20 94 Nasal Cannula 2.0 08/01/17 21:35 36.5 97 16 143/72 92 Nasal Cannula 2.0 08/01/17 21:18 100 17 93 08/01/17 21:00 142/87 08/01/17 20:48 100 15 95 08/01/17 20:31 144/72 08/01/17 20:18 109 23 95 08/01/17 20:13 108 17 95 08/01/17 20:01 134/72 08/01/17 19:43 89 12 98 08/01/17 19:36 80 26 94 Nasal Cannula 2.0 08/01/17 19:32 91 08/01/17 19:31 139/65 08/01/17 19:23 94 Nasal Cannula 2.0 08/01/17 19:22 94 Nasal Cannula 2.0 08/01/17 19:18 116/80 08/01/17 19:18 94 Nasal Cannula 2.0 08/01/17 19:18 37.1 99 24 116/80 94 Nasal Cannula 2.0 Physical Exam General Appearance: no apparent distress Eyes: EOMI ENT: hearing grossly normal Neck: trachea midline Respiratory/Chest: lungs clear (diminished but clear no wheeze), no respiratory distress, no accessory muscle use Extremities: normal range of motion Neurologic/Psychiatric: black off worker II-XII nml as tested Skin: normal color Laboratory Results Last 24 Hours Test 08/01/17 19:15 08/01/17 19:29 08/01/17 21:58 08/02/17 07:19 White Blood Count 10.35 K/uL Red Blood Count 4.22 M/uL Hemoglobin 11.0 g/dL Hematocrit 34.2 % Mean Corpuscular Volume 81.0 fL Mean Corpuscular Hemoglobin 26.1 pg Mean Corpuscular Hemoglobin Concent 32.2 g/dl Platelet Count 333 K/uL Mean Platelet Volume 9.1 fL Neutrophils (%) (Auto) 81.0 % Lymphocytes (%) (Auto) 13.1 % Monocytes (%) (Auto) 4.2 % Eosinophils (%) (Auto) 0.1 % Basophils (%) (Auto) 0.2 % Neutrophils # (Auto) 8.39 K/uL Lymphocytes # (Auto) 1.36 K/uL Monocytes # (Auto) 0.43 K/uL Eosinophils # (Auto) 0.01 K/uL Basophils # (Auto) 0.02 K/uL RDW Standard Deviation 50.6 fL RDW Coefficient of Variation 17.0 % Immature Granulocyte % (Auto) 1.4 % Immature Granulocyte # (Auto) 0.14 K/uL Prothrombin Time 12.3 SECONDS Prothromb Time International Ratio 1.1 Activated Partial Thromboplast Time 27.4 SECONDS Partial Thromboplastin Ratio 1.1 Sodium Level 140 mmol/L Potassium Level 4.8 mmol/L Chloride Level 99 mmol/L Carbon Dioxide Level 30 mmol/L Anion Gap 11.0 mmol/L Blood Urea Nitrogen 33 mg/dl Creatinine 1.06 mg/dl Est Creatinine Clear Calc Drug Dose 50.0 ml/min Estimated GFR () 60.3 Estimated GFR (Non- 52.0 BUN/Creatinine Ratio 31.5 Random Glucose 253 mg/dl Calcium Level 10.5 mg/dl Chemistry Specimen Hemolysis Bedside Troponin I < 0.030 ng/ml Bedside Glucose 217 mg/dl 238 mg/dl Test 08/02/17 11:27 08/02/17 16:32 Bedside Glucose 219 mg/dl 130 mg/dl Assessment and Plan COPD exacerbation --appears related to house mold --work on placement --steroids, abx, supportive care, nebs DM - insulins DVT proph - lovenox
[2017-08-02] MEDS: MONTELUKAST SOD 10 MG TAB PO SCH (21:17)
[2017-08-02] MEDS: NORTRIPTYLINE HCL 10 MG CAP PO SCH (21:18)
[2017-08-02] MEDS: MIRTAZAPINE TAB 15 MG TAB PO SCH (21:18)
[2017-08-02] MEDS: QUETIAPINE FUMARATE 200 MG TAB PO SCH (21:19)
[2017-08-03] VITALS (11 sets, daily range): BP systolic 111–128; BP diastolic 68–77; PULSE 70–101; TEMP 36.4–37; O2SAT 92–97
[2017-08-03] MEDS: ALBUTEROL 0.083% NEBU SOLN 3 ML VIAL INH PRN ×4 (01:38→17:48)
[2017-08-03] MEDS: LEVOTHYROXINE 25 MCG TAB PO SCH (05:48)
[2017-08-03] MEDS: BUDESONIDE 0.5 MG/2 ML VIAL (PULMICORT) INH SCH ×2 (07:21→19:42)
[2017-08-03] MEDS: ARFORMOTEROL TART 15MCG/2ML VIAL INH SCH ×2 (07:21→19:42)
[2017-08-03] MEDS: DULERA~ORDER AWAITING ACTION SCH ×3 (08:00→15:14)
[2017-08-03] MEDS: FLUTICASONE PROPIONATE NA SPR 16 GM BTL NAE SCH (08:02)
[2017-08-03] MEDS: TIOTROPIUM BROMIDE 5 PUFF/90 MCG INH INH SCH (08:03)
[2017-08-03] MEDS: METFORMIN HCL 500 MG TAB PO SCH ×2 (08:03→16:31)
[2017-08-03] MEDS: CEROVITE ADV FORMULA TAB PO SCH (08:03)
[2017-08-03] MEDS: RANITIDINE HCL 150 MG TAB PO SCH ×2 (08:03→20:10)
[2017-08-03] MEDS: FUROSEMIDE 40 MG TAB PO SCH (08:04)
[2017-08-03] MEDS: POTASSIUM CHLORIDE 20 MEQ TABCR PO SCH ×2 (08:04→20:11)
[2017-08-03] MEDS: THEOPHYLLINE 400MG CONTROLLED REL TAB PO SCH (08:04)
[2017-08-03] MEDS: MELOXICAM 7.5 MG TAB PO SCH ×2 (08:04→20:11)
[2017-08-03] MEDS: RIVAROXABAN 10 MG TAB PO SCH (08:04)
[2017-08-03] MEDS: DOXYCYCLINE HYCLATE 100 MG CAP PO SCH ×2 (08:05→20:10)
[2017-08-03] MEDS: CHOLECALCIFEROL 400 INTER.UNIT TAB PO SCH (08:05)
[2017-08-03] MEDS ORDERED: ENOXAPARIN 40 MG/0.4 ML SYR SQ SCH (09:00)
--- NOTE | 2017-08-03 09:42 | Clinical Documentation Query ---
BENITEZ Moran : CLINICAL DOCUMENTATION QUERY Clinical documentation includes a diagnosis of: Acute Respiratory Failure. Due to stringent requirements by our coding department, multiple clinical indicators associated with this diagnosis must be present in order for this to be coded/captured within the medical record. If appropriate, please document 2 or more of the following clinical indicators in daily progress notes and the discharge summary. If you feel the diagnosis of acute respiratory failure was made in error, or do not agree with it, simply discontinue documentation thereof. Acute Respiratory Failure indicators include: * Respirations >28 * Air hunger * Use of accessory muscles of respiration * Inability to speak in full sentences * Cyanosis * Pulse ox <90% RA or <95% on O2 *pH <7.35 or >7.45 * pO2 < 60 mm Hg (or 10mm below COPD patient's baseline) * pCO2 >50mm Hg (or 10mm above COPD patient's baseline) * mechanical ventilation * Increased work of breathing * Tachypnea Please clarify and document your clinical opinion in the progress notes and discharge summary. Terms such as "probable", "suspected", "likely", "questionable", "possible", or "still to be ruled out" are acceptable. IF IN AGREEMENT, YOU MUST DOCUMENT ABOVE DIAGNOSTIC STATEMENT IN DAILY PROGRESS NOTES AND DISCHARGE SUMMARY. This document is not part of the patient's record. Ok will document. THANK YOU! Thank You, Kojo Horowitz, KAM [phone]
[2017-08-03] MEDS ORDERED: BISACODYL 10 MG SUPP PR PRN (11:30)
--- NOTE | 2017-08-03 11:36 | Hospitalist Progress Note ---
Hospitalist Progress Note Date of Service Aug 03, 2017. (Subha Olson PA-C) Subjective Pt evaluation today including: conversation w/ patient, physical exam, chart review, lab review, review of studies Pain: none PO Intake: Good Voiding: no voiding problems The patient was seen and examined this morning. Pt reports doing better since just having a nebulizer treatment. She was feeling slightly more short of breath this morning after being up and walking with PT/OT out in the hallways. She denies any chest pain, or dyspnea at rest. She reports her last BM was 3 days ago and that she feels slightly distended. Her bowel normally move every 3 -4 days and she does not take any supplements at home. Pt denies any other acute complaints. ROS: 6 point ROS was reviewed and otherwise negative. (Subha Olson PA-C) Objective Vital Signs Date Time Temp Pulse Resp B/P (MAP) Pulse Ox O2 Delivery O2 Flow Rate FiO2 08/03/17 10:31 95 22 92 Nasal Cannula 2.0 08/03/17 08:00 97 Nasal Cannula 2.0 08/03/17 07:35 36.4 70 16 115/71 (86) 97 2.0 08/03/17 07:21 73 18 97 Nasal Cannula 2.0 08/03/17 01:38 80 20 97 Nasal Cannula 2.0 08/03/17 00:00 Nasal Cannula 2.0 08/02/17 23:36 36.9 74 18 124/70 (88) 94 Nasal Cannula 2.0 08/02/17 19:32 77 20 97 Nasal Cannula 2.0 08/02/17 19:11 37.2 80 16 131/70 (90) 93 Nasal Cannula 2.0 08/02/17 18:09 88 20 96 Nasal Cannula 2.0 08/02/17 16:00 97 Nasal Cannula 2.0 08/02/17 15:21 36.4 86 18 151/73 (99) 93 2.0 08/02/17 15:19 88 16 96 Nasal Cannula 2.0 08/02/17 12:01 94 Nasal Cannula 2.0 08/02/17 11:20 74 16 96 Nasal Cannula 2.0 (Subha Olson PA-C) Physical Exam General Appearance: WD/WN, no apparent distress Eyes: normal inspection, PERRL ENT: hearing grossly normal, pharynx normal Neck: supple, thyroid normal Respiratory/Chest: + pertinent finding (on 2 L vian NC, + expiratory wheeze throughout, worst in the RML. + prolonged expiratory phase. No rhonchi or rales.) Cardiovascular: regular rate, rhythm, no murmur Abdomen: normal bowel sounds, non tender, soft Extremities: non-tender, no pedal edema, no calf tenderness Neurologic/Psychiatric: alert, normal mood/affect, oriented x 3 Skin: normal color, warm/dry (Subha Olson, CYNDI) Laboratory Results Last 24 Hours Test 08/02/17 11:27 08/02/17 16:32 08/02/17 20:14 08/03/17 07:18 Bedside Glucose 219 mg/dl 130 mg/dl 208 mg/dl 110 mg/dl (Subha Olson PA-C) Assessment and Plan 72 yo F with COPD and chronic respiratory failure, recent DC from exacerbation - likely was not taking appropriate amount of prednisone so symptoms returned. COPD exacerbation - Received 125mg Solu-Medrol in ED, pt has not gotten further steroids, so will place on Prednisone 60 mg now and titrate this as tolerated - Continue doxycycline PO 100 mg BID - Aim for O2 sats around 90% (her baseline) - she is on 2L baseline and 3L at night. Acute on chronic respiratory failure secondary to COPD - at time of admission was tachypneic and had increased work of breathing, currently O2 sats at 95% on 2L - Continue 3L as tolerated, wean to 2L as able - Continue current inhaler regimem including Brovana BID, Spiriva daily, Continue singulair 10 mg Po daily, theophylline 400 mg PO daily with duonebs PRN Chronic diastolic CHF - I&O monitoring - Daily weights Type 2 DM - Continue home metformin Depression - Continue Remeron and Seroquel GERD - Continue Zantac Hx of PE - Continue Xarelto VTE: Xarelto Dispo: Admitted for possible placement to [facility], pt will require PT/OT for short term Code status: FULL Disposition: Lives in the [facility] [place], d/c to rehab, likely d/c within ~1 day. (Subha Olson PA-C) I examined patient and agree with above note. I discussed analysis and plan with APC. I answered all of the patients questions. My exam is below: General Appearance: WD/WN, no apparent distress Neck: supple, thyroid normal Respiratory/Chest: + pertinent finding (on 2 L vian NC, + expiratory wheeze throughout, worst in the RML. + prolonged expiratory phase. No rhonchi or rales.) Cardiovascular: regular rate, rhythm, no murmur Abdomen: normal bowel sounds, non tender, soft Extremities: non-tender, no pedal edema, no calf tenderness Neurologic/Psychiatric: alert, normal mood/affect, oriented x 3 Skin: normal color, warm/dry (William Devries M.D.)
[2017-08-03] MEDS: POLYETHYLENE (MIRALAX) 17 GM PACK PO SCH (11:50)
[2017-08-03] MEDS: BISACODYL 5 MG TABEC PO SCH (11:50)
[2017-08-03] MEDS ORDERED: NURSING VERBAL MED ORDER STA (17:41)
[2017-08-03] MEDS: ALBUTEROL 0.083% NEBU SOLN 3 ML VIAL INH ONE (18:15)
[2017-08-03] MEDS: CLONAZEPAM 0.5 MG TAB PO PRN (18:18)
[2017-08-03] MEDS: MONTELUKAST SOD 10 MG TAB PO SCH (20:10)
[2017-08-03] MEDS: MIRTAZAPINE TAB 15 MG TAB PO SCH (20:10)
[2017-08-03] MEDS: NORTRIPTYLINE HCL 10 MG CAP PO SCH (20:11)
[2017-08-03] MEDS: QUETIAPINE FUMARATE 200 MG TAB PO SCH (20:11)
[2017-08-03] MEDS ORDERED: GLUCOSE 40% GEL 15 GM TUBE PO PRN (20:15)
[2017-08-03] MEDS ORDERED: DEXTROSE 50% 50 ML SYR IV PRN (20:15)
[2017-08-03] MEDS ORDERED: GLUCAGON FOR INJ 1 MG VIAL SQ PRN (20:15)
[2017-08-03] MEDS ORDERED: GLUCOSE 10 TABS/TUBE PO PRN (20:15)
[2017-08-03] MEDS: AZITHROMYCIN 250 MG TAB PO SCH (21:33)
[2017-08-03] MEDS: INSULIN ASPART 100 UNITS/ML 3 ML PEN SC SCH (21:36)
[2017-08-04] VITALS (13 sets, daily range): BP systolic 108–147; BP diastolic 66–80; PULSE 70–110; TEMP 36.5–36.9; O2SAT 90–97; BMI 34.7
[2017-08-04] MEDS: LEVOTHYROXINE 25 MCG TAB PO SCH (06:08)
[2017-08-04 06:23] LABS: BASO % 0.1 %; BASO ABS # 0.02 K/uL (0-0.2); COMPLETE YES; EOS % 0.4 %; HEMATOCRIT 36.1 % (37-47); IG% 2.2 %; LYMPH % 15.5 %; LYMPH ABS # 2.52 K/uL (1.2-3.4); MEAN CELL VOLUME 80.8 fL (80-100); MEAN CORPUSCULAR HGB CONC 32.1 g/dl (32-36); MEAN PLATELET VOLUME 8.8 fL (7.4-10.4); MONO % 8.8 %; PLATELET COUNT 321 K/uL (130-400); RED BLOOD COUNT 4.47 M/uL (4.2-5.4); WHITE BLOOD COUNT 16.24 K/uL (4.8-10.8)
[2017-08-04 06:49] LABS: BUN/CREATININE RATIO 28.7 (10-20); CALCIUM 8.8 mg/dl (8.5-10.1); CREATININE 0.89 mg/dl (0.60-1.20); POTASSIUM 4.1 mmol/L (3.5-5.1)
[2017-08-04] MEDS: ARFORMOTEROL TART 15MCG/2ML VIAL INH SCH ×2 (07:27→19:21)
[2017-08-04] MEDS: BUDESONIDE 0.5 MG/2 ML VIAL (PULMICORT) INH SCH ×2 (07:27→19:21)
--- NOTE | 2017-08-04 07:41 | Hospitalist Progress Note ---
Hospitalist Progress Note Date of Service Aug 04, 2017. (Subha Olson PA-C) Subjective Pt evaluation today including: conversation w/ patient, physical exam, chart review, lab review, review of studies Pain: None PO Intake: Good Voiding: no voiding problems The patient was seen and examined this morning. Pt reports doing ok today, she feels like she needs a breathing treatment right now and nursing is aware. Pt reports she asked PT to come back later this afternoon. Pt notes a dry cough, and still feels SOB with exertion. She was up in bedside chair for breakfast but since then has been in bed, not ambulating much. I encouraged her to attempt working with PT and walking with nursing staff and she is agreeable to this. Discussion was held regarding getting a dehumidifier and thorough cleaning with clorox (with good ventilation) if mold is truely an issue in her apartment. She plans to look into this. Discussion held with [facility] and [facility] accepted her but are waiting on bed availability, likely . ROS: 6 point ROS reviewed and otherwise negative. (Subha Olson, CYNDI) Objective Vital Signs Date Time Temp Pulse Resp B/P (MAP) Pulse Ox O2 Delivery O2 Flow Rate FiO2 08/04/17 07:27 70 20 97 Nasal Cannula 2.0 08/04/17 05:00 36.6 76 18 119/78 (92) 93 Nasal Cannula 2.0 08/04/17 00:33 36.6 107 18 119/80 (93) 93 Nasal Cannula 2.0 08/04/17 00:00 Nasal Cannula 2.0 08/03/17 20:29 37.0 92 22 128/74 (92) 92 Nasal Cannula 2.0 08/03/17 19:42 97 20 95 Nasal Cannula 2.0 08/03/17 17:46 86 20 94 Nasal Cannula 2.0 08/03/17 16:00 Nasal Cannula 2.0 08/03/17 15:25 37.0 98 22 117/77 (90) 93 Nasal Cannula 2.0 08/03/17 14:50 90 22 96 Nasal Cannula 2.0 08/03/17 12:02 37.0 101 20 111/68 (82) 95 2.0 08/03/17 10:31 95 22 92 Nasal Cannula 2.0 08/03/17 08:00 97 Nasal Cannula 2.0 (Subha Olson PA-C) Physical Exam Notes: General Appearance: WD/WN, no apparent distress Eyes: normal inspection, PERRL ENT: hearing grossly normal, pharynx normal Neck: supple, thyroid normal Respiratory/Chest: + pertinent finding (on 2 L via NC, + expiratory wheeze throughout but improved compared to yesterday, + prolonged expiratory phase. + nonproductive cough, No rhonchi or rales.) Cardiovascular: regular rate, rhythm, no murmur Abdomen: normal bowel sounds, non tender, soft Extremities: non-tender, no pedal edema, no calf tenderness Neurologic/Psychiatric: alert, normal mood/affect, oriented x 3 Skin: normal color, warm/dry (Subha Olson PA-C) Laboratory Results Last 24 Hours Test 08/03/17 10:57 08/03/17 16:02 08/03/17 20:02 08/04/17 05:57 Bedside Glucose 170 mg/dl 215 mg/dl 338 mg/dl White Blood Count 16.24 K/uL Red Blood Count 4.47 M/uL Hemoglobin 11.6 g/dL Hematocrit 36.1 % Mean Corpuscular Volume 80.8 fL Mean Corpuscular Hemoglobin 26.0 pg Mean Corpuscular Hemoglobin Concent 32.1 g/dl Platelet Count 321 K/uL Mean Platelet Volume 8.8 fL Neutrophils (%) (Auto) 73.0 % Lymphocytes (%) (Auto) 15.5 % Monocytes (%) (Auto) 8.8 % Eosinophils (%) (Auto) 0.4 % Basophils (%) (Auto) 0.1 % Neutrophils # (Auto) 11.86 K/uL Lymphocytes # (Auto) 2.52 K/uL Monocytes # (Auto) 1.43 K/uL Eosinophils # (Auto) 0.06 K/uL Basophils # (Auto) 0.02 K/uL RDW Standard Deviation 50.6 fL RDW Coefficient of Variation 17.2 % Immature Granulocyte % (Auto) 2.2 % Immature Granulocyte # (Auto) 0.35 K/uL Sodium Level 139 mmol/L Potassium Level 4.1 mmol/L Chloride Level 100 mmol/L Carbon Dioxide Level 33 mmol/L Anion Gap 6.0 mmol/L Blood Urea Nitrogen 25 mg/dl Creatinine 0.89 mg/dl Est Creatinine Clear Calc Drug Dose 57.3 ml/min Estimated GFR () 74.5 Estimated GFR (Non- 64.3 BUN/Creatinine Ratio 28.7 Random Glucose 158 mg/dl Calcium Level 8.8 mg/dl (Subha Olson PA-C) Assessment and Plan 72 yo F with COPD and chronic respiratory failure, recent DC from exacerbation - likely was not taking appropriate amount of prednisone so symptoms returned. COPD exacerbation - Received 125mg Solu-Medrol in ED, placed on Prednisone 60 mg taper on 08/03 - gave a total of 60 mg again today, will plan to titrate to 50 mg x 3 days starting tomorrow. Can decrease by 10 mg Q3 days with pulm follow up in 1-2 weeks. - Continue doxycycline PO 100 mg BID - day #3 - started on azithromycin 250 mg MWF for antiinflammatory properties on 08/03 - Aim for O2 sats around 90% (her baseline) - she is on 2L baseline and 3L at night. Acute on chronic respiratory failure secondary to COPD - at time of admission was tachypneic and had increased work of breathing, currently O2 sats at 95% on 2L - Continue 3L as tolerated, wean to 2L as able - Continue current inhaler regimen including Brovana BID, Spiriva daily, Continue singulair 10 mg Po daily, theophylline 400 mg PO daily with duonebs PRN - PT/OT on board Chronic diastolic CHF - I&O monitoring - Daily weights - Appears euvolemic, no peripheral edema. Type 2 DM - Continue home metformin Depression - Continue Remeron and Seroquel GERD - Continue Zantac Hx of PE - Continue Xarelto VTE: Xarelto Dispo: Admitted for possible placement to [facility], pt will require PT/OT for short term - insurance accepted but waiting on bed placement Code status: FULL Disposition: Lives in the [facility] in [place], d/c to rehab, likely d/c within ~1-2 days. (Subha Olson PA-C) I examined patient and agree with above NOTE. I discussed A/P with APC and patient. I answered all of the patients questions. Below is my physical exam. General Appearance: WD/WN, no apparent distress ENT: hearing grossly normal, pharynx normal Neck: supple, thyroid normal Respiratory/Chest: + pertinent finding (on 2 L via NC, + expiratory wheeze throughout but improved compared to yesterday, + prolonged expiratory phase) Cardiovascular: regular rate, rhythm, no murmur Abdomen: normal bowel sounds, non tender, soft Extremities: non-tender, no pedal edema, no calf tenderness Neurologic/Psychiatric: alert, normal mood/affect, oriented x 3 (William Devries M.D.)
[2017-08-04] MEDS: DULERA~ORDER AWAITING ACTION SCH ×3 (08:00→16:00)
[2017-08-04] MEDS: METFORMIN HCL 500 MG TAB PO SCH ×2 (08:09→17:16)
[2017-08-04] MEDS: TIOTROPIUM BROMIDE 5 PUFF/90 MCG INH INH SCH (08:09)
[2017-08-04] MEDS: CHOLECALCIFEROL 400 INTER.UNIT TAB PO SCH (08:09)
[2017-08-04] MEDS: FLUTICASONE PROPIONATE NA SPR 16 GM BTL NAE SCH (08:09)
[2017-08-04] MEDS: MELOXICAM 7.5 MG TAB PO SCH ×2 (08:09→20:37)
[2017-08-04] MEDS: FUROSEMIDE 40 MG TAB PO SCH (08:10)
[2017-08-04] MEDS: POLYETHYLENE (MIRALAX) 17 GM PACK PO SCH (08:10)
[2017-08-04] MEDS: POTASSIUM CHLORIDE 20 MEQ TABCR PO SCH ×2 (08:10→20:35)
[2017-08-04] MEDS: CEROVITE ADV FORMULA TAB PO SCH (08:10)
[2017-08-04] MEDS: THEOPHYLLINE 400MG CONTROLLED REL TAB PO SCH (08:10)
[2017-08-04] MEDS: RIVAROXABAN 10 MG TAB PO SCH (08:11)
[2017-08-04] MEDS: DOXYCYCLINE HYCLATE 100 MG CAP PO SCH ×2 (08:11→20:36)
[2017-08-04] MEDS: RANITIDINE HCL 150 MG TAB PO SCH ×2 (08:11→20:36)
[2017-08-04] MEDS: BISACODYL 5 MG TABEC PO SCH (08:19)
[2017-08-04] MEDS: INSULIN ASPART 100 UNITS/ML 3 ML PEN SC SCH ×4 (08:20→21:00)
[2017-08-04] MEDS: ALBUTEROL 0.083% NEBU SOLN 3 ML VIAL INH PRN ×3 (11:29→23:07)
[2017-08-04] MEDS: QUETIAPINE FUMARATE 200 MG TAB PO SCH (20:34)
[2017-08-04] MEDS: MONTELUKAST SOD 10 MG TAB PO SCH (20:35)
[2017-08-04] MEDS: NORTRIPTYLINE HCL 10 MG CAP PO SCH (20:36)
[2017-08-04] MEDS: MIRTAZAPINE TAB 15 MG TAB PO SCH (20:37)
[2017-08-05] VITALS (15 sets, daily range): BP systolic 114–138; BP diastolic 69–81; PULSE 72–120; TEMP 36.4–37; O2SAT 94–98; Ht 157.5 cm; Wt 84.7 kg
[2017-08-05] MEDS: LEVOTHYROXINE 25 MCG TAB PO SCH (05:21)
[2017-08-05] MEDS: ALBUTEROL 0.083% NEBU SOLN 3 ML VIAL INH PRN ×4 (05:23→23:05)
[2017-08-05 06:50] LABS: HEMATOCRIT 35.9 % (37-47); MEAN CORPUSCULAR HEMOGLOBIN 25.3 pg (25-34); MEAN CORPUSCULAR HGB CONC 30.9 g/dl (32-36); MEAN PLATELET VOLUME 8.9 fL (7.4-10.4); PLATELET COUNT 320 K/uL (130-400); RED BLOOD COUNT 4.38 M/uL (4.2-5.4); WHITE BLOOD COUNT 17.25 K/uL (4.8-10.8)
[2017-08-05] MEDS: ARFORMOTEROL TART 15MCG/2ML VIAL INH SCH ×2 (07:11→19:12)
[2017-08-05] MEDS: BUDESONIDE 0.5 MG/2 ML VIAL (PULMICORT) INH SCH ×2 (07:12→19:13)
[2017-08-05 07:22] LABS: BASO ABS # 0.16 K/uL (0-0.2); BASOPHIL % 0.9 %; COMPLETE YES; LYMPH ABS # 4.54 K/uL (1.2-3.4); LYMPHOCYTE % 26.3 %; META ABS # 0.16 K/uL (0-0); METAMYELOCYTE % 0.9 %
[2017-08-05 07:24] LABS: BUN/CREATININE RATIO 27.1 (10-20); CREATININE 0.91 mg/dl (0.60-1.20); POTASSIUM 3.9 mmol/L (3.5-5.1)
[2017-08-05] MEDS: DULERA~ORDER AWAITING ACTION SCH ×4 (07:55→23:33)
[2017-08-05] MEDS: METFORMIN HCL 500 MG TAB PO SCH ×2 (07:56→17:24)
[2017-08-05] MEDS: TIOTROPIUM BROMIDE 5 PUFF/90 MCG INH INH SCH (07:57)
[2017-08-05] MEDS: FLUTICASONE PROPIONATE NA SPR 16 GM BTL NAE SCH (07:57)
[2017-08-05] MEDS: POTASSIUM CHLORIDE 20 MEQ TABCR PO SCH ×2 (07:58→21:04)
[2017-08-05] MEDS: FUROSEMIDE 40 MG TAB PO SCH (07:59)
[2017-08-05] MEDS: POLYETHYLENE (MIRALAX) 17 GM PACK PO SCH (07:59)
[2017-08-05] MEDS: MELOXICAM 7.5 MG TAB PO SCH ×2 (08:00→21:01)
[2017-08-05] MEDS: CEROVITE ADV FORMULA TAB PO SCH (08:00)
[2017-08-05] MEDS: THEOPHYLLINE 400MG CONTROLLED REL TAB PO SCH (08:01)
[2017-08-05] MEDS: DOXYCYCLINE HYCLATE 100 MG CAP PO SCH ×2 (08:02→21:01)
[2017-08-05] MEDS: CHOLECALCIFEROL 400 INTER.UNIT TAB PO SCH (08:02)
[2017-08-05] MEDS: RANITIDINE HCL 150 MG TAB PO SCH ×2 (08:03→21:05)
[2017-08-05] MEDS: RIVAROXABAN 10 MG TAB PO SCH (08:03)
[2017-08-05] MEDS: AZITHROMYCIN 250 MG TAB PO SCH (08:04)
[2017-08-05] MEDS: INSULIN ASPART 100 UNITS/ML 3 ML PEN SC SCH ×4 (08:06→21:14)
[2017-08-05] MEDS: BISACODYL 5 MG TABEC PO SCH (08:09)
[2017-08-05] MEDS: INSULIN HUMAN NPH SC SCH (10:10)
--- NOTE | 2017-08-05 10:12 | Hospitalist Progress Note ---
Hospitalist Progress Note Date of Service Aug 05, 2017. (Subha Olson PA-C) Subjective Pt evaluation today including: conversation w/ patient, physical exam, chart review, lab review, review of studies Pain: None PO Intake: Good Voiding: no voiding problems The patient was seen and examined this morning. Pt reports feeling congested in her chest this morning, she has a cough but reports it is nonproductive. She denies SOB at rest and reports it is improving with exertion. She has been up walking with PT/OT and reports she is not nearly as short of breath as she was 2 days ago. She denies any chest pain, flutter, palpitation. Pt denies fever, chills, sweats or any other acute complaints. ROS: 6 point ROS reviewed and otherwise negative. (Subha Olson PA-C) Objective Vital Signs Date Time Temp Pulse Resp B/P (MAP) Pulse Ox O2 Delivery O2 Flow Rate FiO2 08/05/17 07:17 37.0 72 18 128/72 (90) 98 Nasal Cannula 2.0 08/05/17 07:14 77 18 98 Nasal Cannula 2.0 08/05/17 05:24 75 22 96 Nasal Cannula 2.0 08/05/17 04:15 36.9 77 18 114/69 (84) 95 Nasal Cannula 2.0 08/05/17 00:00 Nasal Cannula 2.0 08/04/17 23:27 36.9 94 20 114/74 (87) 95 Nasal Cannula 2.0 08/04/17 23:08 105 20 95 Nasal Cannula 2.0 08/04/17 19:57 36.5 93 18 130/72 (91) 93 Nasal Cannula 2.0 08/04/17 19:21 91 24 96 Nasal Cannula 2.0 08/04/17 17:23 Nasal Cannula 2.0 08/04/17 15:38 36.9 110 22 147/75 (99) 90 Nasal Cannula 2.0 08/04/17 15:26 110 20 90 Nasal Cannula 2.0 08/04/17 11:29 96 20 95 Nasal Cannula 2.0 08/04/17 11:28 36.7 96 22 111/66 (81) 96 Nasal Cannula 2.0 (Filipowicz,Subha G., PA-C) Physical Exam Notes: General Appearance: WD/WN, no apparent distress Eyes: normal inspection, PERRL ENT: hearing grossly normal, pharynx normal Neck: supple, thyroid normal Respiratory/Chest: + pertinent finding (on 2 L via NC, + expiratory wheeze throughout worse in R base and middle lobes. + prolonged expiratory phase. + nonproductive cough, No rhonchi or rales.) Cardiovascular: regular rate, rhythm, no murmur Abdomen: normal bowel sounds, non tender, soft Extremities: non-tender, no pedal edema, no calf tenderness Neurologic/Psychiatric: alert, normal mood/affect, oriented x 3 Skin: normal color, warm/dry (Subha Olson PA-C) Laboratory Results Last 24 Hours Test 08/04/17 11:52 08/04/17 16:22 08/04/17 20:25 08/05/17 06:19 Bedside Glucose 132 mg/dl 317 mg/dl 375 mg/dl White Blood Count 17.25 K/uL Red Blood Count 4.38 M/uL Hemoglobin 11.1 g/dL Hematocrit 35.9 % Mean Corpuscular Volume 82.0 fL Mean Corpuscular Hemoglobin 25.3 pg Mean Corpuscular Hemoglobin Concent 30.9 g/dl Platelet Count 320 K/uL Mean Platelet Volume 8.9 fL RDW Standard Deviation 51.8 fL RDW Coefficient of Variation 17.3 % Neutrophils % (Manual) 64.0 % Lymphocytes % (Manual) 26.3 % Monocytes % (Manual) 7.9 % Basophils % (Manual) 0.9 % Metamyelocytes % 0.9 % Neutrophils # (Manual) 11.04 K/uL Total Absolute Neutrophils 11.04 K/uL Lymphocytes # (Manual) 4.54 K/uL Total Absolute Lymphocytes 4.54 K/uL Monocytes # (Manual) 1.36 K/uL Basophils # (Manual) 0.16 K/uL Metamyelocytes # 0.16 K/uL Red Blood Cell Morphology Unremarkable Sodium Level 140 mmol/L Potassium Level 3.9 mmol/L Chloride Level 102 mmol/L Carbon Dioxide Level 31 mmol/L Anion Gap 7.0 mmol/L Blood Urea Nitrogen 25 mg/dl Creatinine 0.91 mg/dl Est Creatinine Clear Calc Drug Dose 56.1 ml/min Estimated GFR () 72.5 Estimated GFR (Non- 62.6 BUN/Creatinine Ratio 27.1 Random Glucose 120 mg/dl Calcium Level 9.0 mg/dl Test 08/05/17 07:17 Bedside Glucose 100 mg/dl (Subha Olson, PAAdonisC) Assessment and Plan 72 yo F with COPD and chronic respiratory failure, recent DC from exacerbation - likely was not taking appropriate amount of prednisone so symptoms returned. COPD exacerbation - Received 125mg Solu-Medrol in ED, placed on Prednisone 60 mg taper on 08/03 - on prednisone taper - 50 mg x 3 days starting 08/05 -Can decrease by 10 mg Q3 days with pulm follow up in 1-2 weeks. - Continue flutter valve, pulmonary toilet with mucinex, - will order sputum culture for if her cough becomes productive with mucous. - Continue doxycycline PO 100 mg BID - day #4 - started on azithromycin 250 mg MWF for antiinflammatory properties on 08/03 - Aim for O2 sats around 90% (her baseline) - she is on 2L baseline and 3L at night. - Encourage PT/OT and ambulation Acute on chronic respiratory failure secondary to COPD - at time of admission was tachypneic and had increased work of breathing, currently O2 sats at 95% on 2L - Continue 3L as tolerated, wean to 2L as able - Continue current inhaler regimen including Brovana BID, Spiriva daily, Continue singulair 10 mg Po daily, theophylline 400 mg PO daily with duonebs PRN - PT/OT on board Chronic diastolic CHF - I&O monitoring - Daily weights - Appears euvolemic, no peripheral edema. Type 2 DM - Continue home metformin - ISS with accuchecks achs - Added NPH 30 mg SubQ Q am while on prednisone taper to control glucose. Depression - Continue Remeron and Seroquel - Psych consult placed as part of Target process evaluation - this will likely delay her discharge from the hospital to [facility] for short term PT/OT. GERD - Continue Zantac Hx of PE - Continue Xarelto VTE: Xarelto Dispo: Admitted for possible placement to [facility], pt will require PT/OT for short term - insurance accepted but waiting on bed placement Code status: FULL Disposition: Lives in the [facility] in [place], d/c to rehab, target process started with psych eval, will be here through the weekend. (Subha Olson PA-C) I examined patient and agree with above NOTE. I discussed A/P with APC and patient. I answered all of the patients questions. Below is my physical exam. General Appearance: WD/WN, no apparent distress ENT: hearing grossly normal, pharynx normal Neck: supple, thyroid normal Respiratory/Chest: + pertinent finding (on 2 L via NC, + expiratory wheeze throughout but improved compared to yesterday, + prolonged expiratory phase) Cardiovascular: regular rate, rhythm, no murmur Abdomen: normal bowel sounds, non tender, soft Extremities: non-tender, no pedal edema, no calf tenderness Neurologic/Psychiatric: alert, normal mood/affect, oriented x 3 (William Devries M.D.)
--- NOTE | 2017-08-05 14:26 | Psych Management Progress Note ---
Psychiatry Miscellaneous Date of Service: Aug 05, 2017. Attempted to see patient for a psychiatric consult for the office of aging/ target process for [facility] placement. She was apparently admitted to [facility] in 2015, and signed a release of that those records can be obtained. She was unable to participate in the interview, as she is working with physical therapy. We will have someone return to see her tomorrow.
[2017-08-05] MEDS: GUAIFENESIN 600 MG TABCR PO SCH (21:01)
[2017-08-05] MEDS: NORTRIPTYLINE HCL 10 MG CAP PO SCH (21:02)
[2017-08-05] MEDS: MIRTAZAPINE TAB 15 MG TAB PO SCH (21:02)
[2017-08-05] MEDS: QUETIAPINE FUMARATE 200 MG TAB PO SCH (21:03)
[2017-08-05] MEDS: MONTELUKAST SOD 10 MG TAB PO SCH (21:04)
[2017-08-06] VITALS (13 sets, daily range): BP systolic 112–149; BP diastolic 68–88; PULSE 65–106; TEMP 36.5–37.1; O2SAT 93–98
[2017-08-06] MEDS ORDERED: NURSING VERBAL MED ORDER ONE (01:45)
[2017-08-06] MEDS ORDERED: ALBUTEROL 0.083% NEBU SOLN 3 ML VIAL INH STA (02:00)
[2017-08-06 05:56] LABS: HEMATOCRIT 35.6 % (37-47); MEAN CELL VOLUME 81.8 fL (80-100); MEAN CORPUSCULAR HEMOGLOBIN 25.7 pg (25-34); MEAN CORPUSCULAR HGB CONC 31.5 g/dl (32-36); MEAN PLATELET VOLUME 8.8 fL (7.4-10.4); PLATELET COUNT 302 K/uL (130-400); RED BLOOD COUNT 4.35 M/uL (4.2-5.4)
[2017-08-06] MEDS: LEVOTHYROXINE 25 MCG TAB PO SCH (06:07)
[2017-08-06 06:34] LABS: BUN/CREATININE RATIO 28.7 (10-20); CALCIUM 8.9 mg/dl (8.5-10.1); CREATININE 0.92 mg/dl (0.60-1.20); POTASSIUM 4.1 mmol/L (3.5-5.1)
[2017-08-06] MEDS: ARFORMOTEROL TART 15MCG/2ML VIAL INH SCH ×2 (07:27→19:14)
[2017-08-06] MEDS: BUDESONIDE 0.5 MG/2 ML VIAL (PULMICORT) INH SCH ×2 (07:27→19:14)
[2017-08-06] MEDS: DULERA~ORDER AWAITING ACTION SCH ×2 (08:00→15:22)
[2017-08-06] MEDS: POLYETHYLENE (MIRALAX) 17 GM PACK PO SCH (08:45)
[2017-08-06] MEDS: TIOTROPIUM BROMIDE 5 PUFF/90 MCG INH INH SCH (08:46)
[2017-08-06] MEDS: FLUTICASONE PROPIONATE NA SPR 16 GM BTL NAE SCH (08:46)
[2017-08-06] MEDS: METFORMIN HCL 500 MG TAB PO SCH ×2 (08:46→17:47)
[2017-08-06] MEDS: BISACODYL 5 MG TABEC PO SCH (08:47)
[2017-08-06] MEDS: MELOXICAM 7.5 MG TAB PO SCH ×2 (08:47→21:48)
[2017-08-06] MEDS: POTASSIUM CHLORIDE 20 MEQ TABCR PO SCH ×2 (08:47→21:47)
[2017-08-06] MEDS: FUROSEMIDE 40 MG TAB PO SCH (08:47)
[2017-08-06] MEDS: CHOLECALCIFEROL 400 INTER.UNIT TAB PO SCH (08:48)
[2017-08-06] MEDS: RANITIDINE HCL 150 MG TAB PO SCH ×2 (08:48→21:50)
[2017-08-06] MEDS: RIVAROXABAN 10 MG TAB PO SCH (08:48)
[2017-08-06] MEDS: GUAIFENESIN 600 MG TABCR PO SCH ×2 (08:48→21:49)
[2017-08-06] MEDS: CEROVITE ADV FORMULA TAB PO SCH (08:48)
[2017-08-06] MEDS: DOXYCYCLINE HYCLATE 100 MG CAP PO SCH ×2 (08:48→21:46)
[2017-08-06] MEDS: THEOPHYLLINE 400MG CONTROLLED REL TAB PO SCH (08:49)
[2017-08-06] MEDS: INSULIN ASPART 100 UNITS/ML 3 ML PEN SC SCH ×4 (08:52→21:53)
[2017-08-06] MEDS: INSULIN HUMAN NPH SC SCH (08:52)
--- NOTE | 2017-08-06 09:36 | Progress Note ---
Subjective Date of Service: Aug 06, 2017. Subjective Pt evaluation today including: conversation w/ patient, physical exam, lab review, review of inpatient medication list Pain: no pain PO Intake: adequate Voiding: no voiding problems patient says she is breathing well, stable, at baseline minimal cough, no sputum no pain anywhere eating well BM two days ago labs stable explained the target process, she understands Problem List Medical Problems: (1) Acute bronchitis Status: Acute (2) Acute exacerbation of chronic obstructive pulmonary disease Status: Acute (3) Anemia Status: Acute (4) Anemia Status: Acute (5) COPD exacerbation Status: Acute (6) COPD exacerbation Status: Acute (7) COPD exacerbation Status: Acute (8) COPD exacerbation Status: Acute (9) Hyperglycemia due to type 2 diabetes mellitus Status: Acute (10) Hypomagnesemia Status: Acute (11) Hypoxia Status: Acute (12) Lactic acidosis Status: Acute (13) Sepsis Status: Acute (14) Shortness of breath Status: Acute (15) Tachypnea Status: Acute Review of Systems Respiratory: + dyspnea on exertion All Other Systems: Reviewed and Negative Medications Current Inpatient Medications Medications (Trade) Dose Ordered Sig/Lulú Route Start Time Stop Time Status Last Admin Dose Admin Miscellaneous (Iv Fluids Completed) 1 ea PRN PRN N/A 08/01/17 21:30 08/01/18 21:29 Clonazepam (Klonopin Tab) 0.5 mg Q12H PRN PO 08/01/17 23:15 08/31/17 23:14 08/03/17 18:18 0.5 MG Albuterol Sulfate (Ventolin 0.083% 2.5MG/3ML Neb) 2.5 mg Q4 PRN INH 08/01/17 23:15 08/31/17 23:14 08/05/17 23:05 2.5 MG Fluticasone Propionate (Flonase Nasal [place]) 2 sprays DAILY NANCY 08/02/17 09:00 09/01/17 08:59 08/06/17 08:46 2 SPRAYS Mirtazapine (Remeron Tab) 45 mg HS PO 08/02/17 21:00 09/01/17 20:59 08/05/17 21:02 45 MG Tiotropium Lolo (Spiriva Handihaler Inhaler) 1 puff DAILY INH 08/02/17 09:00 09/01/17 08:59 08/06/17 08:46 1 PUFF Multivitamins/ Minerals (Multivitamin W/ Minerals Tab) 1 tab QAM PO 08/02/17 09:00 09/01/17 08:59 08/06/17 08:48 1 TAB Acetaminophen (Tylenol Tab) 650 mg Q4H PRN PO 08/01/17 23:15 08/31/17 23:14 Al Hydrox/Mg Hydrox/Simethicone (Maalox Max Susp) 15 ml Q4H PRN PO 08/01/17 23:15 08/31/17 23:14 08/02/17 18:04 15 ML Arformoterol Tartrate (Brovana 15MCG/ 2ML Neb Soln) 15 mcg BIDR INH 08/02/17 08:00 09/01/17 07:59 08/06/17 07:27 15 MCG Magnesium Hydroxide (Milk Of Magnesia Susp) 30 ml Q12H PRN PO 08/01/17 23:15 08/31/17 23:14 Doxycycline Hyclate (Vibramycin Cap) 100 mg BID PO 08/02/17 09:00 08/09/17 08:59 08/06/17 08:48 100 MG Furosemide (Lasix Tab) 40 mg QAM PO 08/02/17 09:00 09/01/17 08:59 08/06/17 08:47 40 MG Hydroxyzine HCl (Vistaril Tab) 10 mg TID PRN PO 08/01/17 23:15 08/31/17 23:14 Levothyroxine Sodium (Synthroid Tab) 25 mcg DAILYBB PO 08/02/17 06:30 09/01/17 06:29 08/06/17 06:07 25 MCG Potassium Chloride (Klor-Con Tab) 20 meq BID PO 08/02/17 09:00 09/01/17 08:59 08/06/17 08:47 20 MEQ Quetiapine Fumarate (seroQUEL TAB) 400 mg HS PO 08/02/17 21:00 09/01/17 20:59 08/05/17 21:03 400 MG Ranitidine HCl (zANTac TAB) 150 mg BID PO 08/02/17 09:00 09/01/17 08:59 08/06/17 08:48 150 MG Rivaroxaban (Xarelto Tab) 20 mg QAM PO 08/02/17 09:00 09/01/17 08:59 08/06/17 08:48 20 MG Metformin HCl (Glucophage Tab) 1,000 mg BIDM PO 08/02/17 08:00 09/01/17 07:59 08/06/17 08:46 1,000 MG Montelukast Sodium (Singulair Tab) 10 mg HS PO 08/02/17 21:00 09/01/17 20:59 08/05/17 21:04 10 MG Menthol (Nice Kena) 1 kena PRN PRN PO 08/02/17 03:45 09/01/17 03:44 Miscellaneous Information (Order Awaiting Action) 1 ea QS N/A 08/02/17 08:00 09/01/17 07:59 Theophylline (Uniphyl Controlled Rel 24hr Tab) 400 mg DAILY PO 08/02/17 09:00 09/01/17 08:59 08/06/17 08:49 400 MG Budesonide (Pulmicort Respules 0.5MG/ 2ML Neb Soln) 0.5 mg BIDR INH 08/02/17 08:00 09/01/17 07:59 08/06/17 07:27 0.5 MG Cholecalciferol (Vitamin D Tab) 400 inter.unit QAM PO 08/02/17 09:00 09/01/17 08:59 08/06/17 08:48 400 INTER.UNIT Meloxicam (Mobic Tab) 7.5 mg BID PO 08/02/17 09:00 09/01/17 08:59 08/06/17 08:47 7.5 MG Ondansetron HCl (Zofran Inj) 4 mg Q6H PRN IV 08/02/17 03:45 09/01/17 03:44 Polyethylene (Miralax Powder Packet) 17 gm DAILY PRN PO 08/02/17 04:00 09/01/17 03:59 Nortriptyline HCl (Pamelor Cap) 10 mg HS PO 08/02/17 21:00 09/01/17 20:59 08/05/17 21:02 10 MG Bisacodyl (Dulcolax Tab) 10 mg DAILY PO 08/03/17 11:30 09/02/17 11:29 08/06/17 08:47 10 MG Polyethylene (Miralax Powder Packet) 17 gm DAILY PO 08/03/17 11:30 09/02/17 11:29 08/06/17 08:45 17 GM Bisacodyl (Dulcolax Supp) 10 mg DAILY PRN [place] 08/03/17 11:30 09/02/17 11:29 Azithromycin (Zithromax Tab) 250 mg MoWeFr@0900 PO 08/03/17 21:00 08/10/17 20:59 08/05/17 08:04 250 MG Insulin Aspart (novoLOG ASPART) SLIDING SCALE If C... ACHS SC 08/03/17 21:00 09/02/17 20:59 08/06/17 08:52 2 UNITS Glucose (Glucose 40% Gel) 15-30 GRAMS 15 GRAMS... UD PRN PO 08/03/17 20:15 09/02/17 20:14 Glucose (Glucose Chew Tab) 4-8 Tablets 4 Tabl... UD PRN PO 08/03/17 20:15 09/02/17 20:14 Dextrose (Dextrose 50% 50ML Syringe) 25-50ML OF 50% DW IV FOR... UD PRN IV 08/03/17 20:15 09/02/17 20:14 Glucagon (Glucagon Inj) 1 mg UD PRN SQ 08/03/17 20:15 09/02/17 20:14 Prednisone (PredniSONE TAB) 50 mg DAILY PO 08/05/17 09:00 09/03/17 08:59 08/06/17 08:48 50 MG Insulin Human NPH (novoLIN-N NPH) 30 units QDB SC 08/05/17 10:00 09/04/17 09:59 08/06/17 08:52 30 UNITS Guaifenesin (Mucinex Contr Rel Tab) 600 mg Q12 PO 08/05/17 21:00 09/04/17 20:59 08/06/17 08:48 600 MG Objective Vital Signs Date Time Temp Pulse Resp B/P (MAP) Pulse Ox O2 Delivery O2 Flow Rate FiO2 08/06/17 07:29 36.9 65 18 115/70 (85) 98 Nasal Cannula 2.0 08/06/17 07:27 66 18 98 Nasal Cannula 2.0 08/06/17 04:12 36.7 77 20 144/88 (106) 96 Nasal Cannula 2.0 08/06/17 00:00 Nasal Cannula 2.0 08/05/17 23:58 36.6 94 18 116/69 (85) 96 Nasal Cannula 2.0 08/05/17 23:05 92 20 95 Nasal Cannula 2.0 08/05/17 19:13 36.5 93 20 138/77 (97) 94 Nasal Cannula 2.0 08/05/17 19:13 97 20 94 Nasal Cannula 2.0 08/05/17 16:39 94 Nasal Cannula 2.0 08/05/17 15:48 36.4 103 18 116/81 (93) 94 Nasal Cannula 2.0 08/05/17 14:58 105 20 96 Nasal Cannula 2.0 08/05/17 14:15 120 94 08/05/17 12:16 37.0 72 18 128/72 (90) 98 Nasal Cannula 2.0 08/05/17 11:12 106 20 96 Nasal Cannula 2.0 Physical Exam General Appearance: WD/WN, no apparent distress Eyes: normal inspection, EOMI, sclerae normal ENT: normal ENT inspection, hearing grossly normal, pharynx normal Neck: supple, no adenopathy, no JVD, trachea midline Respiratory/Chest: chest non-tender, no respiratory distress, no accessory muscle use, + decreased breath sounds, + wheezing (bilaterally, end exhalation) Cardiovascular: regular rate, rhythm, no edema, no gallop, no JVD, no murmur Abdomen: normal bowel sounds, non tender, soft, no organomegaly Extremities: normal range of motion, non-tender, normal inspection, no pedal edema, no calf tenderness, pelvis stable Neurologic/Psychiatric: 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 nml as tested, no motor/sensory deficits, alert, normal mood/affect, oriented x 3 Laboratory Results Last 24 Hours Test 08/05/17 11:24 08/05/17 16:20 08/05/17 20:16 08/06/17 05:36 Bedside Glucose 175 mg/dl 322 mg/dl 230 mg/dl White Blood Count 17.70 K/uL Red Blood Count 4.35 M/uL Hemoglobin 11.2 g/dL Hematocrit 35.6 % Mean Corpuscular Volume 81.8 fL Mean Corpuscular Hemoglobin 25.7 pg Mean Corpuscular Hemoglobin Concent 31.5 g/dl RDW Standard Deviation 52.1 fL RDW Coefficient of Variation 17.4 % Platelet Count 302 K/uL Mean Platelet Volume 8.8 fL Sodium Level 137 mmol/L Potassium Level 4.1 mmol/L Chloride Level 100 mmol/L Carbon Dioxide Level 29 mmol/L Anion Gap 8.0 mmol/L Blood Urea Nitrogen 26 mg/dl Creatinine 0.92 mg/dl Est Creatinine Clear Calc Drug Dose 55.5 ml/min Estimated GFR () 71.6 Estimated GFR (Non- 61.8 BUN/Creatinine Ratio 28.7 Random Glucose 106 mg/dl Calcium Level 8.9 mg/dl Test 08/06/17 07:39 Bedside Glucose 85 mg/dl Assessment and Plan 72 yo F with COPD and chronic respiratory failure, recent DC from exacerbation - likely was not taking appropriate amount of prednisone so symptoms returned. COPD exacerbation: several admissions in past two months currently on Prednisone 50mg daily started 08/05, can taper 10mg daily every 3 days Continue flutter valve, pulmonary toilet with mucinex Continue doxycycline PO 100 mg BID - day #5 started on azithromycin 250 mg MWF for antiinflammatory properties on 08/03, continue on discharge 98% on 2L PT/OT, ambulate will need close pulmonary follow up Acute on chronic respiratory failure secondary to COPD - at time of admission was tachypneic and had increased work of breathing, currently O2 sats at 98% on 2L - Continue to wean as tolerated - Continue current inhaler regimen including Brovana BID, Spiriva daily, Continue singulair 10 mg Po daily, theophylline 400 mg PO daily with duonebs PRN - PT/OT on board Chronic diastolic CHF - patient is euvolemic today, no edema Type 2 DM - Continue home metformin - ISS with accuchecks achs - Added NPH 30 mg SubQ Q am while on prednisone taper to control glucose. - morning sugar 85, will need to taper back NPH as well Depression - Continue Remeron and Seroquel - Psych consult placed as part of Target process evaluation - this will likely delay her discharge from the hospital to [facility] for short term PT/OT. GERD - Continue Zantac Hx of PE - Continue Xarelto VTE: Xarelto Dispo: Admitted for possible placement to [facility], pt will require PT/OT for short term - insurance accepted but waiting on bed placement Code status: FULL Disposition: here until Target process completed, to [facility] once complete
[2017-08-06] MEDS: ALBUTEROL 0.083% NEBU SOLN 3 ML VIAL INH PRN ×2 (11:15→23:15)
[2017-08-06] MEDS: CLONAZEPAM 0.5 MG TAB PO PRN (14:40)
[2017-08-06] MEDS: NORTRIPTYLINE HCL 10 MG CAP PO SCH (21:48)
[2017-08-06] MEDS: MIRTAZAPINE TAB 15 MG TAB PO SCH (21:48)
[2017-08-06] MEDS: MONTELUKAST SOD 10 MG TAB PO SCH (21:49)
[2017-08-06] MEDS: QUETIAPINE FUMARATE 200 MG TAB PO SCH (21:50)
[2017-08-07] VITALS (10 sets, daily range): BP systolic 112–133; BP diastolic 66–82; PULSE 67–105; TEMP 36.7–37.3; O2SAT 94–98
[2017-08-07] MEDS: LEVOTHYROXINE 25 MCG TAB PO SCH (06:15)
[2017-08-07] MEDS: BUDESONIDE 0.5 MG/2 ML VIAL (PULMICORT) INH SCH ×2 (07:18→19:33)
[2017-08-07] MEDS: ARFORMOTEROL TART 15MCG/2ML VIAL INH SCH ×2 (07:18→19:33)
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
[2017-08-07] MEDS: POLYETHYLENE (MIRALAX) 17 GM PACK PO SCH (08:24)
[2017-08-07] MEDS: DOXYCYCLINE HYCLATE 100 MG CAP PO SCH ×2 (08:24→20:25)
[2017-08-07] MEDS: RIVAROXABAN 10 MG TAB PO SCH (08:24)
[2017-08-07] MEDS: FUROSEMIDE 40 MG TAB PO SCH (08:25)
[2017-08-07] MEDS: METFORMIN HCL 500 MG TAB PO SCH ×2 (08:25→17:37)
[2017-08-07] MEDS: CHOLECALCIFEROL 400 INTER.UNIT TAB PO SCH (08:26)
[2017-08-07] MEDS: GUAIFENESIN 600 MG TABCR PO SCH ×2 (08:26→20:27)
[2017-08-07] MEDS: RANITIDINE HCL 150 MG TAB PO SCH ×2 (08:26→20:26)
[2017-08-07] MEDS: MELOXICAM 7.5 MG TAB PO SCH ×2 (08:26→20:30)
[2017-08-07] MEDS: POTASSIUM CHLORIDE 20 MEQ TABCR PO SCH ×2 (08:26→20:28)
[2017-08-07] MEDS: THEOPHYLLINE 400MG CONTROLLED REL TAB PO SCH (08:26)
[2017-08-07] MEDS: AZITHROMYCIN 250 MG TAB PO SCH (08:27)
[2017-08-07] MEDS: CEROVITE ADV FORMULA TAB PO SCH (08:27)
[2017-08-07] MEDS: FLUTICASONE PROPIONATE NA SPR 16 GM BTL NAE SCH (08:28)
[2017-08-07] MEDS: INSULIN HUMAN NPH SC SCH (08:39)
[2017-08-07] MEDS: INSULIN ASPART 100 UNITS/ML 3 ML PEN SC SCH ×4 (08:39→21:20)
[2017-08-07] MEDS: BISACODYL 5 MG TABEC PO SCH (08:40)
[2017-08-07] MEDS: TIOTROPIUM BROMIDE 5 PUFF/90 MCG INH INH SCH (09:18)
--- NOTE | 2017-08-07 13:09 | Progress Note ---
Subjective Date of Service: Aug 07, 2017. Subjective Pt evaluation today including: conversation w/ patient, physical exam, lab review, review of inpatient medication list Pain: no pain PO Intake: adequate Voiding: no voiding problems patient sitting at edge of bed, breathing well, no distress says she feels better than yesterday eating well, resting d/w CM, still awaiting target process for SNF placement Problem List Medical Problems: (1) Acute bronchitis Status: Acute (2) Acute exacerbation of chronic obstructive pulmonary disease Status: Acute (3) Anemia Status: Acute (4) Anemia Status: Acute (5) COPD exacerbation Status: Acute (6) COPD exacerbation Status: Acute (7) COPD exacerbation Status: Acute (8) COPD exacerbation Status: Acute (9) Hyperglycemia due to type 2 diabetes mellitus Status: Acute (10) Hypomagnesemia Status: Acute (11) Hypoxia Status: Acute (12) Lactic acidosis Status: Acute (13) Sepsis Status: Acute (14) Shortness of breath Status: Acute (15) Tachypnea Status: Acute Review of Systems All Other Systems: Reviewed and Negative Medications Current Inpatient Medications Medications (Trade) Dose Ordered Sig/Lulú Route Start Time Stop Time Status Last Admin Dose Admin Miscellaneous (Iv Fluids Completed) 1 ea PRN PRN N/A 08/01/17 21:30 08/01/18 21:29 Clonazepam (Klonopin Tab) 0.5 mg Q12H PRN PO 08/01/17 23:15 08/31/17 23:14 08/06/17 14:40 0.5 MG Albuterol Sulfate (Ventolin 0.083% 2.5MG/3ML Neb) 2.5 mg Q4 PRN INH 08/01/17 23:15 08/31/17 23:14 08/06/17 23:15 2.5 MG Fluticasone Propionate (Flonase Nasal [place]) 2 sprays DAILY NANCY 08/02/17 09:00 09/01/17 08:59 08/07/17 08:28 2 SPRAYS Mirtazapine (Remeron Tab) 45 mg HS PO 08/02/17 21:00 09/01/17 20:59 08/06/17 21:48 45 MG Tiotropium [place] (Spiriva Handihaler Inhaler) 1 puff DAILY INH 08/02/17 09:00 09/01/17 08:59 08/07/17 09:18 1 PUFF Multivitamins/ Minerals (Multivitamin W/ Minerals Tab) 1 tab QAM PO 08/02/17 09:00 09/01/17 08:59 08/07/17 08:27 1 TAB Acetaminophen (Tylenol Tab) 650 mg Q4H PRN PO 08/01/17 23:15 08/31/17 23:14 Al Hydrox/Mg Hydrox/Simethicone (Maalox Max Susp) 15 ml Q4H PRN PO 08/01/17 23:15 08/31/17 23:14 08/02/17 18:04 15 ML Arformoterol Tartrate (Brovana 15MCG/ 2ML Neb Soln) 15 mcg BIDR INH 08/02/17 08:00 09/01/17 07:59 08/07/17 07:18 15 MCG Magnesium Hydroxide (Milk Of Magnesia Susp) 30 ml Q12H PRN PO 08/01/17 23:15 08/31/17 23:14 Doxycycline Hyclate (Vibramycin Cap) 100 mg BID PO 08/02/17 09:00 08/09/17 08:59 08/07/17 08:24 100 MG Furosemide (Lasix Tab) 40 mg QAM PO 08/02/17 09:00 09/01/17 08:59 08/07/17 08:25 40 MG Hydroxyzine HCl (Vistaril Tab) 10 mg TID PRN PO 08/01/17 23:15 08/31/17 23:14 Levothyroxine Sodium (Synthroid Tab) 25 mcg DAILYBB PO 08/02/17 06:30 09/01/17 06:29 08/07/17 06:15 25 MCG Potassium Chloride (Klor-Con Tab) 20 meq BID PO 08/02/17 09:00 09/01/17 08:59 08/07/17 08:26 20 MEQ Quetiapine Fumarate (seroQUEL TAB) 400 mg HS PO 08/02/17 21:00 09/01/17 20:59 08/06/17 21:50 400 MG Ranitidine HCl (zANTac TAB) 150 mg BID PO 08/02/17 09:00 09/01/17 08:59 08/07/17 08:26 150 MG Rivaroxaban (Xarelto Tab) 20 mg QAM PO 08/02/17 09:00 09/01/17 08:59 08/07/17 08:24 20 MG Metformin HCl (Glucophage Tab) 1,000 mg BIDM PO 08/02/17 08:00 09/01/17 07:59 08/07/17 08:25 1,000 MG Montelukast Sodium (Singulair Tab) 10 mg HS PO 08/02/17 21:00 09/01/17 20:59 08/06/17 21:49 10 MG Menthol (Nice Angélica) 1 angélica PRN PRN PO 08/02/17 03:45 09/01/17 03:44 Miscellaneous Information (Order Awaiting Action) 1 ea QS N/A 08/02/17 08:00 09/01/17 07:59 Theophylline (Uniphyl Controlled Rel 24hr Tab) 400 mg DAILY PO 08/02/17 09:00 09/01/17 08:59 08/07/17 08:26 400 MG Budesonide (Pulmicort Respules 0.5MG/ 2ML Neb Soln) 0.5 mg BIDR INH 08/02/17 08:00 09/01/17 07:59 08/07/17 07:18 0.5 MG Cholecalciferol (Vitamin D Tab) 400 inter.unit QAM PO 08/02/17 09:00 09/01/17 08:59 08/07/17 08:26 400 INTER.UNIT Meloxicam (Mobic Tab) 7.5 mg BID PO 08/02/17 09:00 09/01/17 08:59 08/07/17 08:26 7.5 MG Ondansetron HCl (Zofran Inj) 4 mg Q6H PRN IV 08/02/17 03:45 09/01/17 03:44 08/07/17 00:00 4 MG Polyethylene (Miralax Powder Packet) 17 gm DAILY PRN PO 08/02/17 04:00 09/01/17 03:59 Nortriptyline HCl (Pamelor Cap) 10 mg HS PO 08/02/17 21:00 09/01/17 20:59 08/06/17 21:48 10 MG Bisacodyl (Dulcolax Tab) 10 mg DAILY PO 08/03/17 11:30 09/02/17 11:29 08/07/17 08:40 10 MG Polyethylene (Miralax Powder Packet) 17 gm DAILY PO 08/03/17 11:30 09/02/17 11:29 08/07/17 08:24 17 GM Bisacodyl (Dulcolax Supp) 10 mg DAILY PRN OK 08/03/17 11:30 09/02/17 11:29 Azithromycin (Zithromax Tab) 250 mg MoWeFr@0900 PO 08/03/17 21:00 08/10/17 20:59 08/07/17 08:27 250 MG Insulin Aspart (novoLOG ASPART) SLIDING SCALE If C... ACHS SC 08/03/17 21:00 09/02/17 20:59 08/07/17 12:02 6 UNITS Glucose (Glucose 40% Gel) 15-30 GRAMS 15 GRAMS... UD PRN PO 08/03/17 20:15 09/02/17 20:14 Glucose (Glucose Chew Tab) 4-8 Tablets 4 Tabl... UD PRN PO 08/03/17 20:15 09/02/17 20:14 Dextrose (Dextrose 50% 50ML Syringe) 25-50ML OF 50% DW IV FOR... UD PRN IV 08/03/17 20:15 09/02/17 20:14 Glucagon (Glucagon Inj) 1 mg UD PRN SQ 08/03/17 20:15 09/02/17 20:14 Prednisone (PredniSONE TAB) 50 mg DAILY PO 08/05/17 09:00 09/03/17 08:59 08/07/17 08:25 50 MG Insulin Human NPH (novoLIN-N NPH) 30 units QDB SC 08/05/17 10:00 09/04/17 09:59 08/07/17 08:39 30 UNITS Guaifenesin (Mucinex Contr Rel Tab) 600 mg Q12 PO 08/05/17 21:00 09/04/17 20:59 08/07/17 08:26 600 MG Objective Vital Signs Date Time Temp Pulse Resp B/P (MAP) Pulse Ox O2 Delivery O2 Flow Rate FiO2 08/07/17 11: 36.8 86 20 131/77 (95) 95 08/07/17 08:00 Nasal Cannula 2.0 08/07/17 07:30 36.9 67 16 119/70 (86) 98 Nasal Cannula 2.0 08/07/17 07:20 67 20 98 Nasal Cannula 2.0 08/07/17 04:23 36.9 77 18 112/66 (81) 96 Nasal Cannula 2.0 08/07/17 00:00 95 Nasal Cannula 2.0 08/06/17 23:18 36.7 80 16 112/68 (83) 95 Nasal Cannula 2.0 08/06/17 23:17 82 18 98 Nasal Cannula 2.0 08/06/17 20:31 36.5 98 18 149/87 (107) 98 2.0 08/06/17 19:16 93 18 96 Nasal Cannula 2.0 08/06/17 16:10 36.6 106 18 120/75 (90) 93 08/06/17 16:00 95 Nasal Cannula 2.0 08/06/17 15:17 90 18 97 Nasal Cannula 2.0 Physical Exam General Appearance: WD/WN, no apparent distress Eyes: normal inspection, EOMI, sclerae normal ENT: normal ENT inspection, hearing grossly normal, pharynx normal Neck: supple, no adenopathy, no JVD, trachea midline Respiratory/Chest: chest non-tender, no respiratory distress, no accessory muscle use, + wheezing (end exhalation) Cardiovascular: regular rate, rhythm, no edema, no gallop, no JVD, no murmur Abdomen: normal bowel sounds, non tender, soft, no organomegaly Extremities: normal range of motion, non-tender, normal inspection, no pedal edema, no calf tenderness, pelvis stable 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 COPD exacerbation: several admissions in past two months currently on Prednisone 50mg daily, taper to 40mg daily tomorrow, decrease by 10mg every three days Continue flutter valve, pulmonary toilet with mucinex Continue doxycycline PO 100 mg BID - day #6, stop after evening dose tomorrow started on azithromycin 250 mg MWF for antiinflammatory properties on 08/03, continue on discharge 98% on 2L PT/OT, ambulate will need close pulmonary follow up Acute on chronic respiratory failure secondary to COPD - at time of admission was tachypneic and had increased work of breathing, currently O2 sats at 98% on 2L - Continue to wean as tolerated - Continue current inhaler regimen including Brovana BID, Spiriva daily, Continue singulair 10 mg Po daily, theophylline 400 mg PO daily with duonebs PRN - PT/OT on board Chronic diastolic CHF - patient is euvolemic today, no edema Type 2 DM - Continue home metformin - ISS with accuchecks achs - Added NPH 30 mg SubQ Q am while on prednisone taper to control glucose. - morning sugar 85 - taper back to 25 units tomorrow AM Depression - Continue Remeron and Seroquel - Psych consult placed as part of Target process evaluation - this will likely delay her discharge from the hospital to [facility] for short term PT/OT. GERD - Continue Zantac Hx of PE - Continue Xarelto VTE: Xarelto Dispo: Admitted for possible placement to [facility], pt will require PT/OT for short term - insurance accepted but waiting on bed placement Code status: FULL Disposition: here until Target process completed, to [facility] once complete
[2017-08-07] MEDS: DULERA~ORDER AWAITING ACTION SCH ×2 (16:00→22:56)
[2017-08-07] MEDS: ALBUTEROL 0.083% NEBU SOLN 3 ML VIAL INH PRN ×2 (16:51→23:56)
[2017-08-07] MEDS: MONTELUKAST SOD 10 MG TAB PO SCH (20:26)
[2017-08-07] MEDS: QUETIAPINE FUMARATE 200 MG TAB PO SCH (20:27)
[2017-08-07] MEDS: NORTRIPTYLINE HCL 10 MG CAP PO SCH (20:29)
[2017-08-07] MEDS: MIRTAZAPINE TAB 15 MG TAB PO SCH (20:29)
[2017-08-08] VITALS (8 sets, daily range): BP systolic 126–132; BP diastolic 69–84; PULSE 70–101; TEMP 36.4–37.4; O2SAT 92–98
[2017-08-08] MEDS: LEVOTHYROXINE 25 MCG TAB PO SCH (06:05)
[2017-08-08] MEDS: ALBUTEROL 0.083% NEBU SOLN 3 ML VIAL INH PRN ×2 (06:13→14:23)
[2017-08-08 06:34] LABS: HEMATOCRIT 36.8 % (37-47); MEAN CELL VOLUME 81.4 fL (80-100); MEAN CORPUSCULAR HEMOGLOBIN 25.7 pg (25-34); MEAN CORPUSCULAR HGB CONC 31.5 g/dl (32-36); MEAN PLATELET VOLUME 8.9 fL (7.4-10.4); PLATELET COUNT 348 K/uL (130-400); RED BLOOD COUNT 4.52 M/uL (4.2-5.4); WHITE BLOOD COUNT 18.11 K/uL (4.8-10.8)
[2017-08-08] MEDS: BUDESONIDE 0.5 MG/2 ML VIAL (PULMICORT) INH SCH ×2 (07:03→19:34)
[2017-08-08] MEDS: ARFORMOTEROL TART 15MCG/2ML VIAL INH SCH ×2 (07:03→19:34)
[2017-08-08 07:06] LABS: BUN/CREATININE RATIO 30.4 (10-20); CALCIUM 9.5 mg/dl (8.5-10.1); CREATININE 1.03 mg/dl (0.60-1.20)
[2017-08-08] MEDS: POLYETHYLENE (MIRALAX) 17 GM PACK PO SCH (07:51)
[2017-08-08] MEDS: DOXYCYCLINE HYCLATE 100 MG CAP PO SCH ×2 (07:52→20:33)
[2017-08-08] MEDS: MELOXICAM 7.5 MG TAB PO SCH ×2 (07:52→20:32)
[2017-08-08] MEDS: FUROSEMIDE 40 MG TAB PO SCH (07:52)
[2017-08-08] MEDS: THEOPHYLLINE 400MG CONTROLLED REL TAB PO SCH (07:52)
[2017-08-08] MEDS: TIOTROPIUM BROMIDE 5 PUFF/90 MCG INH INH SCH (07:53)
[2017-08-08] MEDS: METFORMIN HCL 500 MG TAB PO SCH ×2 (07:53→17:03)
[2017-08-08] MEDS: FLUTICASONE PROPIONATE NA SPR 16 GM BTL NAE SCH (07:54)
[2017-08-08] MEDS: DULERA~ORDER AWAITING ACTION SCH ×3 (07:54→23:59)
[2017-08-08] MEDS: RIVAROXABAN 10 MG TAB PO SCH (07:55)
[2017-08-08] MEDS: CEROVITE ADV FORMULA TAB PO SCH (07:55)
[2017-08-08] MEDS: CHOLECALCIFEROL 400 INTER.UNIT TAB PO SCH (07:55)
[2017-08-08] MEDS: POTASSIUM CHLORIDE 20 MEQ TABCR PO SCH ×2 (07:55→20:32)
[2017-08-08] MEDS: GUAIFENESIN 600 MG TABCR PO SCH ×2 (07:56→20:32)
[2017-08-08] MEDS: RANITIDINE HCL 150 MG TAB PO SCH ×2 (07:59→20:33)
[2017-08-08] MEDS: INSULIN ASPART 100 UNITS/ML 3 ML PEN SC SCH ×4 (08:04→20:38)
[2017-08-08] MEDS: INSULIN HUMAN NPH SC SCH (08:04)
[2017-08-08] MEDS: BISACODYL 5 MG TABEC PO SCH (08:06)
[2017-08-08] MEDS: NORTRIPTYLINE HCL 10 MG CAP PO SCH (20:32)
[2017-08-08] MEDS: QUETIAPINE FUMARATE 200 MG TAB PO SCH (20:33)
[2017-08-08] MEDS: MIRTAZAPINE TAB 15 MG TAB PO SCH (20:33)
[2017-08-08] MEDS: MONTELUKAST SOD 10 MG TAB PO SCH (20:33)
--- NOTE | 2017-08-08 23:34 | Progress Note ---
Subjective Date of Service: Aug 08, 2017. Subjective Pt evaluation today including: conversation w/ patient, physical exam 72 year old female reports feeling better than yesterday. Problem List Medical Problems: (1) Acute bronchitis Status: Acute (2) Acute exacerbation of chronic obstructive pulmonary disease Status: Acute (3) Anemia Status: Acute (4) Anemia Status: Acute (5) COPD exacerbation Status: Acute (6) COPD exacerbation Status: Acute (7) COPD exacerbation Status: Acute (8) COPD exacerbation Status: Acute (9) Hyperglycemia due to type 2 diabetes mellitus Status: Acute (10) Hypomagnesemia Status: Acute (11) Hypoxia Status: Acute (12) Lactic acidosis Status: Acute (13) Sepsis Status: Acute (14) Shortness of breath Status: Acute (15) Tachypnea Status: Acute Review of Systems Constitutional: No fever, No chills Respiratory: + cough, + sputum, + wheezing, + shortness of breath Cardiac: No chest pain, No orthopnea Abdomen: No pain, No nausea Female : No urinary frequency Psychiatric: No depression symptoms, No anhedonism Endo: No fatigue Skin: No itch All Other Systems: Reviewed and Negative Medications Current Inpatient Medications Medications (Trade) Dose Ordered Sig/Lulú Route Start Time Stop Time Status Last Admin Dose Admin Miscellaneous (Iv Fluids Completed) 1 ea PRN PRN N/A 08/01/17 21:30 08/01/18 21:29 Clonazepam (Klonopin Tab) 0.5 mg Q12H PRN PO 08/01/17 23:15 08/31/17 23:14 08/06/17 14:40 0.5 MG Albuterol Sulfate (Ventolin 0.083% 2.5MG/3ML Neb) 2.5 mg Q4 PRN INH 08/01/17 23:15 08/31/17 23:14 08/09/17 07:24 2.5 MG Fluticasone Propionate (Flonase Nasal [place]) 2 sprays DAILY NANCY 08/02/17 09:00 09/01/17 08:59 08/09/17 08:21 2 SPRAYS Mirtazapine (Remeron Tab) 45 mg HS PO 08/02/17 21:00 09/01/17 20:59 08/08/17 20:33 45 MG Tiotropium [place] (Spiriva Handihaler Inhaler) 1 puff DAILY INH 08/02/17 09:00 09/01/17 08:59 08/09/17 08:20 1 PUFF Multivitamins/ Minerals (Multivitamin W/ Minerals Tab) 1 tab QAM PO 08/02/17 09:00 09/01/17 08:59 08/09/17 08:21 1 TAB Acetaminophen (Tylenol Tab) 650 mg Q4H PRN PO 08/01/17 23:15 08/31/17 23:14 Al Hydrox/Mg Hydrox/Simethicone (Maalox Max Susp) 15 ml Q4H PRN PO 08/01/17 23:15 08/31/17 23:14 08/02/17 18:04 15 ML Arformoterol Tartrate (Brovana 15MCG/ 2ML Neb Soln) 15 mcg BIDR INH 08/02/17 08:00 09/01/17 07:59 08/09/17 07:24 15 MCG Magnesium Hydroxide (Milk Of Magnesia Susp) 30 ml Q12H PRN PO 08/01/17 23:15 08/31/17 23:14 Furosemide (Lasix Tab) 40 mg QAM PO 08/02/17 09:00 09/01/17 08:59 08/09/17 08:21 40 MG Hydroxyzine HCl (Vistaril Tab) 10 mg TID PRN PO 08/01/17 23:15 08/31/17 23:14 Levothyroxine Sodium (Synthroid Tab) 25 mcg DAILYBB PO 08/02/17 06:30 09/01/17 06:29 08/09/17 06:22 25 MCG Potassium Chloride (Klor-Con Tab) 20 meq BID PO 08/02/17 09:00 09/01/17 08:59 08/09/17 08:21 20 MEQ Quetiapine Fumarate (seroQUEL TAB) 400 mg HS PO 08/02/17 21:00 09/01/17 20:59 08/08/17 20:33 400 MG Ranitidine HCl (zANTac TAB) 150 mg BID PO 08/02/17 09:00 09/01/17 08:59 08/09/17 08:22 150 MG Rivaroxaban (Xarelto Tab) 20 mg QAM PO 08/02/17 09:00 09/01/17 08:59 11/26/17 08:22 20 MG Metformin HCl (Glucophage Tab) 1,000 mg BIDM PO 08/02/17 08:00 09/01/17 07:59 08/09/17 08:20 1,000 MG Montelukast Sodium (Singulair Tab) 10 mg HS PO 08/02/17 21:00 09/01/17 20:59 08/08/17 20:33 10 MG Menthol (Nice Angélica) 1 angélica PRN PRN PO 08/02/17 03:45 09/01/17 03:44 Miscellaneous Information (Order Awaiting Action) 1 ea QS N/A 08/02/17 08:00 09/01/17 07:59 Theophylline (Uniphyl Controlled Rel 24hr Tab) 400 mg DAILY PO 08/02/17 09:00 09/01/17 08:59 08/09/17 08:21 400 MG Budesonide (Pulmicort Respules 0.5MG/ 2ML Neb Soln) 0.5 mg BIDR INH 08/02/17 08:00 09/01/17 07:59 08/09/17 07:24 0.5 MG Cholecalciferol (Vitamin D Tab) 400 inter.unit QAM PO 08/02/17 09:00 09/01/17 08:59 08/09/17 08:22 400 INTER.UNIT Meloxicam (Mobic Tab) 7.5 mg BID PO 08/02/17 09:00 09/01/17 08:59 08/09/17 08:21 7.5 MG Ondansetron HCl (Zofran Inj) 4 mg Q6H PRN IV 08/02/17 03:45 09/01/17 03:44 08/07/17 00:00 4 MG Polyethylene (Miralax Powder Packet) 17 gm DAILY PRN PO 08/02/17 04:00 09/01/17 03:59 Nortriptyline HCl (Pamelor Cap) 10 mg HS PO 08/02/17 21:00 09/01/17 20:59 08/08/17 20:32 10 MG Bisacodyl (Dulcolax Tab) 10 mg DAILY PO 08/03/17 11:30 09/02/17 11:29 08/09/17 08:21 10 MG Polyethylene (Miralax Powder Packet) 17 gm DAILY PO 08/03/17 11:30 09/02/17 11:29 08/09/17 08:21 17 GM Bisacodyl (Dulcolax Supp) 10 mg DAILY PRN [place] 08/03/17 11:30 09/02/17 11:29 Azithromycin (Zithromax Tab) 250 mg MoWeFr@0900 PO 08/03/17 21:00 08/10/17 20:59 08/07/17 08:27 250 MG Insulin Aspart (novoLOG ASPART) SLIDING SCALE If C... ACHS SC 08/03/17 21:00 09/02/17 20:59 08/09/17 08:29 1 UNITS Glucose (Glucose 40% Gel) 15-30 GRAMS 15 GRAMS... UD PRN PO 08/03/17 20:15 09/02/17 20:14 Glucose (Glucose Chew Tab) 4-8 Tablets 4 Tabl... UD PRN PO 08/03/17 20:15 09/02/17 20:14 Dextrose (Dextrose 50% 50ML Syringe) 25-50ML OF 50% DW IV FOR... UD PRN IV 08/03/17 20:15 09/02/17 20:14 Glucagon (Glucagon Inj) 1 mg UD PRN SQ 08/03/17 20:15 09/02/17 20:14 Guaifenesin (Mucinex Contr Rel Tab) 600 mg Q12 PO 08/05/17 21:00 09/04/17 20:59 08/09/17 08:21 600 MG Prednisone (PredniSONE TAB) 40 mg DAILY PO 08/08/17 09:00 09/03/17 08:59 08/09/17 08:21 40 MG Insulin Human NPH (novoLIN-N NPH) 25 units QDB SC 08/08/17 08:00 09/04/17 09:59 08/09/17 08:29 25 UNITS Objective Vital Signs Date Time Temp Pulse Resp B/P (MAP) Pulse Ox O2 Delivery O2 Flow Rate FiO2 08/08/17 19:34 80 18 96 Nasal Cannula 2.0 08/08/17 16:00 92 Nasal Cannula 2.0 08/08/17 15:43 37.4 101 18 130/71 (90) 92 Nasal Cannula 2.0 08/08/17 14:23 82 18 96 Nasal Cannula 2.0 08/08/17 07:48 Nasal Cannula 2.0 08/08/17 07:31 36.4 70 18 126/69 (88) 97 Oxymask 2.0 08/08/17 07:03 85 18 96 Nasal Cannula 2.0 08/08/17 06:13 79 18 98 Nasal Cannula 2.0 08/08/17 00:16 36.6 88 20 132/84 (100) 96 Nasal Cannula 2.0 08/08/17 00:00 Nasal Cannula 2.0 08/07/17 23:56 72 18 95 Nasal Cannula 2.0 Physical Exam Comments: General Appearance: WD/WN, no apparent distress Eyes: normal inspection, EOMI, sclerae normal ENT: normal ENT inspection, hearing grossly normal, pharynx normal Neck: supple, no adenopathy, no JVD, trachea midline Respiratory/Chest: chest non-tender, no respiratory distress, no accessory muscle use, + wheezing (end exhalation) Cardiovascular: regular rate, rhythm, no edema, no gallop, no JVD, no murmur Abdomen: normal bowel sounds, non tender, soft, no organomegaly Extremities: normal range of motion, non-tender, normal inspection, no pedal edema, no calf tenderness, pelvis stable 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, no motor/sensory deficits, alert, normal mood/affect, oriented x 3 Skin: normal color, warm/dry, no rash Laboratory Results Last 24 Hours Test 08/08/17 06:05 08/08/17 07:13 08/08/17 11:34 08/08/17 16:54 White Blood Count 18.11 K/uL Red Blood Count 4.52 M/uL Hemoglobin 11.6 g/dL Hematocrit 36.8 % Mean Corpuscular Volume 81.4 fL Mean Corpuscular Hemoglobin 25.7 pg Mean Corpuscular Hemoglobin Concent 31.5 g/dl RDW Standard Deviation 51.8 fL RDW Coefficient of Variation 17.5 % Platelet Count 348 K/uL Mean Platelet Volume 8.9 fL Sodium Level 138 mmol/L Potassium Level 4.0 mmol/L Chloride Level 101 mmol/L Carbon Dioxide Level 32 mmol/L Anion Gap 5.0 mmol/L Blood Urea Nitrogen 31 mg/dl Creatinine 1.03 mg/dl Est Creatinine Clear Calc Drug Dose 49.5 ml/min Estimated GFR () 62.5 Estimated GFR (Non- 53.9 BUN/Creatinine Ratio 30.4 Random Glucose 85 mg/dl Calcium Level 9.5 mg/dl Bedside Glucose 84 mg/dl 256 mg/dl 194 mg/dl Test 08/08/17 20:16 Bedside Glucose 202 mg/dl Assessment and Plan 72 yo F with COPD and chronic respiratory failure, recent DC from exacerbation - likely was not taking appropriate amount of prednisone so symptoms returned. COPD exacerbation: several admissions in past two months Still wheezing today, but slightly better as patient feels improvement currently on Prednisone 40mg daily tomorrow, decrease by 10mg every three days Continue flutter valve, pulmonary toilet with mucinex Continue doxycycline PO 100 mg BID - day #6, stop after evening dose tomorrow started on azithromycin 250 mg MWF for antiinflammatory properties on 08/03, continue on discharge 98% on 2L PT/OT, ambulate will need close pulmonary follow up Acute on chronic respiratory failure secondary to COPD - at time of admission was tachypneic and had increased work of breathing, currently O2 sats at 98% on 2L - Continue to wean as tolerated - Continue current inhaler regimen including Brovana BID, Spiriva daily, Continue singulair 10 mg Po daily, theophylline 400 mg PO daily with duonebs PRN - PT/OT on board Chronic diastolic CHF - patient is euvolemic today, no edema Type 2 DM - Continue home metformin - ISS with accuchecks achs - Added NPH 30 mg SubQ Q am while on prednisone taper to control glucose. - morning sugar 85 - taper back to 25 units tomorrow AM Depression - Continue Remeron and Seroquel - Psych consult placed as part of [facility] process evaluation - this will likely delay her discharge from the hospital to [facility] for short term PT/OT. GERD - Continue Zantac Hx of PE - Continue Xarelto VTE: Xarelto Dispo: Admitted for possible placement to [facility], pt will require PT/OT for short term - insurance accepted but waiting on bed placement Code status: FULL Disposition: here until [facility] process completed, to [facility] once complete
[2017-08-09] VITALS (10 sets, daily range): BP systolic 107–116; BP diastolic 66–74; PULSE 67–106; TEMP 36.4–36.8; O2SAT 95–98
[2017-08-09] MEDS: ALBUTEROL 0.083% NEBU SOLN 3 ML VIAL INH PRN ×4 (01:40→23:19)
[2017-08-09] MEDS: LEVOTHYROXINE 25 MCG TAB PO SCH (06:22)
[2017-08-09] MEDS: ARFORMOTEROL TART 15MCG/2ML VIAL INH SCH ×2 (07:24→18:29)
[2017-08-09] MEDS: BUDESONIDE 0.5 MG/2 ML VIAL (PULMICORT) INH SCH ×2 (07:24→18:29)
[2017-08-09] MEDS: DULERA~ORDER AWAITING ACTION SCH ×3 (08:00→23:19)
[2017-08-09] MEDS: METFORMIN HCL 500 MG TAB PO SCH ×2 (08:20→17:56)
[2017-08-09] MEDS: TIOTROPIUM BROMIDE 5 PUFF/90 MCG INH INH SCH (08:20)
[2017-08-09] MEDS: FUROSEMIDE 40 MG TAB PO SCH (08:21)
[2017-08-09] MEDS: FLUTICASONE PROPIONATE NA SPR 16 GM BTL NAE SCH (08:21)
[2017-08-09] MEDS: THEOPHYLLINE 400MG CONTROLLED REL TAB PO SCH (08:21)
[2017-08-09] MEDS: POLYETHYLENE (MIRALAX) 17 GM PACK PO SCH (08:21)
[2017-08-09] MEDS: MELOXICAM 7.5 MG TAB PO SCH ×2 (08:21→21:18)
[2017-08-09] MEDS: GUAIFENESIN 600 MG TABCR PO SCH ×2 (08:21→21:19)
[2017-08-09] MEDS: CEROVITE ADV FORMULA TAB PO SCH (08:21)
[2017-08-09] MEDS: POTASSIUM CHLORIDE 20 MEQ TABCR PO SCH ×2 (08:21→21:18)
[2017-08-09] MEDS: BISACODYL 5 MG TABEC PO SCH (08:21)
[2017-08-09] MEDS: RANITIDINE HCL 150 MG TAB PO SCH ×2 (08:22→21:20)
[2017-08-09] MEDS: RIVAROXABAN 10 MG TAB PO SCH (08:22)
[2017-08-09] MEDS: CHOLECALCIFEROL 400 INTER.UNIT TAB PO SCH (08:22)
[2017-08-09] MEDS: INSULIN HUMAN NPH SC SCH (08:29)
[2017-08-09] MEDS: INSULIN ASPART 100 UNITS/ML 3 ML PEN SC SCH ×4 (08:29→21:40)
--- NOTE | 2017-08-09 10:35 | Progress Note ---
Subjective Date of Service: Aug 09, 2017. Subjective Pt evaluation today including: conversation w/ patient, physical exam 72 yo female who present to the hospital for COPD exacerbation. Patient states that she does not have any improvement from yesterday. She states that she has a non productive cough and is continuing to wheeze. Problem List Medical Problems: (1) Acute bronchitis Status: Acute (2) Acute exacerbation of chronic obstructive pulmonary disease Status: Acute (3) Anemia Status: Acute (4) Anemia Status: Acute (5) COPD exacerbation Status: Acute (6) COPD exacerbation Status: Acute (7) COPD exacerbation Status: Acute (8) COPD exacerbation Status: Acute (9) Hyperglycemia due to type 2 diabetes mellitus Status: Acute (10) Hypomagnesemia Status: Acute (11) Hypoxia Status: Acute (12) Lactic acidosis Status: Acute (13) Sepsis Status: Acute (14) Shortness of breath Status: Acute (15) Tachypnea Status: Acute Review of Systems Constitutional: No fever, No chills Respiratory: + cough, + wheezing, + shortness of breath, No sputum, No dyspnea on exertion Cardiac: No chest pain, No orthopnea Abdomen: No pain, No nausea Female : No dysuria Endo: No fatigue Skin: No rash, No itch All Other Systems: Reviewed and Negative Medications Current Inpatient Medications Medications (Trade) Dose Ordered Sig/Lulú Route Start Time Stop Time Status Last Admin Dose Admin Miscellaneous (Iv Fluids Completed) 1 ea PRN PRN N/A 08/01/17 21:30 08/01/18 21:29 Clonazepam (Klonopin Tab) 0.5 mg Q12H PRN PO 08/01/17 23:15 08/31/17 23:14 08/06/17 14:40 0.5 MG Albuterol Sulfate (Ventolin 0.083% 2.5MG/3ML Neb) 2.5 mg Q4 PRN INH 08/01/17 23:15 08/31/17 23:14 08/09/17 07:24 2.5 MG Fluticasone Propionate (Flonase Nasal [place]) 2 sprays DAILY NANCY 08/02/17 09:00 09/01/17 08:59 08/09/17 08:21 2 SPRAYS Mirtazapine (Remeron Tab) 45 mg HS PO 08/02/17 21:00 09/01/17 20:59 08/08/17 20:33 45 MG Tiotropium [place] (Spiriva Handihaler Inhaler) 1 puff DAILY INH 08/02/17 09:00 09/01/17 08:59 08/09/17 08:20 1 PUFF Multivitamins/ Minerals (Multivitamin W/ Minerals Tab) 1 tab QAM PO 08/02/17 09:00 09/01/17 08:59 08/09/17 08:21 1 TAB Acetaminophen (Tylenol Tab) 650 mg Q4H PRN PO 08/01/17 23:15 08/31/17 23:14 Al Hydrox/Mg Hydrox/Simethicone (Maalox Max Susp) 15 ml Q4H PRN PO 08/01/17 23:15 08/31/17 23:14 08/02/17 18:04 15 ML Arformoterol Tartrate (Brovana 15MCG/ 2ML Neb Soln) 15 mcg BIDR INH 08/02/17 08:00 09/01/17 07:59 08/09/17 07:24 15 MCG Magnesium Hydroxide (Milk Of Magnesia Susp) 30 ml Q12H PRN PO 08/01/17 23:15 08/31/17 23:14 Furosemide (Lasix Tab) 40 mg QAM PO 08/02/17 09:00 09/01/17 08:59 08/09/17 08:21 40 MG Hydroxyzine HCl (Vistaril Tab) 10 mg TID PRN PO 08/01/17 23:15 08/31/17 23:14 Levothyroxine Sodium (Synthroid Tab) 25 mcg DAILYBB PO 08/02/17 06:30 09/01/17 06:29 08/09/17 06:22 25 MCG Potassium Chloride (Klor-Con Tab) 20 meq BID PO 08/02/17 09:00 09/01/17 08:59 08/09/17 08:21 20 MEQ Quetiapine Fumarate (seroQUEL TAB) 400 mg HS PO 08/02/17 21:00 09/01/17 20:59 08/08/17 20:33 400 MG Ranitidine HCl (zANTac TAB) 150 mg BID PO 08/02/17 09:00 09/01/17 08:59 08/09/17 08:22 150 MG Rivaroxaban (Xarelto Tab) 20 mg QAM PO 08/02/17 09:00 09/01/17 08:59 08/09/17 08:22 20 MG Metformin HCl (Glucophage Tab) 1,000 mg BIDM PO 08/02/17 08:00 09/01/17 07:59 08/09/17 08:20 1,000 MG Montelukast Sodium (Singulair Tab) 10 mg HS PO 08/02/17 21:00 09/01/17 20:59 08/08/17 20:33 10 MG Menthol (Nice Angélica) 1 angélica PRN PRN PO 08/02/17 03:45 09/01/17 03:44 Miscellaneous Information (Order Awaiting Action) 1 ea QS N/A 08/02/17 08:00 09/01/17 07:59 Theophylline (Uniphyl Controlled Rel 24hr Tab) 400 mg DAILY PO 08/02/17 09:00 09/01/17 08:59 08/09/17 08:21 400 MG Budesonide (Pulmicort Respules 0.5MG/ 2ML Neb Soln) 0.5 mg BIDR INH 08/02/17 08:00 09/01/17 07:59 08/09/17 07:24 0.5 MG Cholecalciferol (Vitamin D Tab) 400 inter.unit QAM PO 08/02/17 09:00 09/01/17 08:59 08/09/17 08:22 400 INTER.UNIT Meloxicam (Mobic Tab) 7.5 mg BID PO 08/02/17 09:00 09/01/17 08:59 08/09/17 08:21 7.5 MG Ondansetron HCl (Zofran Inj) 4 mg Q6H PRN IV 08/02/17 03:45 09/01/17 03:44 08/07/17 00:00 4 MG Polyethylene (Miralax Powder Packet) 17 gm DAILY PRN PO 08/02/17 04:00 09/01/17 03:59 Nortriptyline HCl (Pamelor Cap) 10 mg HS PO 08/02/17 21:00 09/01/17 20:59 08/08/17 20:32 10 MG Bisacodyl (Dulcolax Tab) 10 mg DAILY PO 08/03/17 11:30 09/02/17 11:29 08/09/17 08:21 10 MG Polyethylene (Miralax Powder Packet) 17 gm DAILY PO 08/03/17 11:30 09/02/17 11:29 08/09/17 08:21 17 GM Bisacodyl (Dulcolax Supp) 10 mg DAILY PRN [place] 08/03/17 11:30 09/02/17 11:29 Azithromycin (Zithromax Tab) 250 mg MoWeFr@0900 PO 08/03/17 21:00 08/10/17 20:59 08/07/17 08:27 250 MG Insulin Aspart (novoLOG ASPART) SLIDING SCALE If C... ACHS SC 08/03/17 21:00 09/02/17 20:59 08/09/17 08:29 1 UNITS Glucose (Glucose 40% Gel) 15-30 GRAMS 15 GRAMS... UD PRN PO 08/03/17 20:15 09/02/17 20:14 Glucose (Glucose Chew Tab) 4-8 Tablets 4 Tabl... UD PRN PO 08/03/17 20:15 09/02/17 20:14 Dextrose (Dextrose 50% 50ML Syringe) 25-50ML OF 50% DW IV FOR... UD PRN IV 08/03/17 20:15 09/02/17 20:14 Glucagon (Glucagon Inj) 1 mg UD PRN SQ 08/03/17 20:15 09/02/17 20:14 Guaifenesin (Mucinex Contr Rel Tab) 600 mg Q12 PO 08/05/17 21:00 09/04/17 20:59 08/09/17 08:21 600 MG Prednisone (PredniSONE TAB) 40 mg DAILY PO 08/08/17 09:00 09/03/17 08:59 08/09/17 08:21 40 MG Insulin Human NPH (novoLIN-N NPH) 25 units QDB SC 08/08/17 08:00 09/04/17 09:59 08/09/17 08:29 25 UNITS Objective Vital Signs Date Time Temp Pulse Resp B/P (MAP) Pulse Ox O2 Delivery O2 Flow Rate FiO2 08/09/17 08:05 36.6 67 18 113/74 (87) 98 Nasal Cannula 2.0 08/09/17 07:25 91 18 98 Nasal Cannula 2.0 08/09/17 01:41 89 18 97 Nasal Cannula 2.0 08/09/17 00:21 36.8 87 18 110/70 (83) 96 2.0 08/09/17 00:00 Nasal Cannula 2.0 08/08/17 19:34 80 18 96 Nasal Cannula 2.0 08/08/17 16:00 92 Nasal Cannula 2.0 08/08/17 15:43 37.4 101 18 130/71 (90) 92 Nasal Cannula 2.0 08/08/17 14:23 82 18 96 Nasal Cannula 2.0 Physical Exam Comments: General Appearance: WD/WN, no apparent distress Eyes: normal inspection, EOMI, sclerae normal ENT: normal ENT inspection, hearing grossly normal, pharynx normal Neck: supple, no adenopathy, no JVD, trachea midline Respiratory/Chest: chest non-tender, no respiratory distress, no accessory muscle use, + wheezing (end exhalation) Cardiovascular: regular rate, rhythm, no edema, no gallop, no JVD, no murmur Abdomen: normal bowel sounds, non tender, soft, no organomegaly Extremities: normal range of motion, non-tender, normal inspection, no pedal edema, no calf tenderness, pelvis stable Neurologic/Psychiatric: plastic duplicator II-XII nml as tested, no motor/sensory deficits, alert, normal mood/affect, oriented x 3 Skin: normal color, warm/dry, no rash Laboratory Results Last 24 Hours Test 08/08/17 11:34 08/08/17 16:54 08/08/17 20:16 08/09/17 06:56 Bedside Glucose 256 mg/dl 194 mg/dl 202 mg/dl 72 mg/dl Assessment and Plan 72 yo F with COPD and chronic respiratory failure, recent DC from exacerbation - likely was not taking appropriate amount of prednisone so symptoms returned. COPD exacerbation: several admissions in past two months Deemed serve COPD during prior admissions given her multple re- admissions. In past, she was supposed to start azithromycin and roflumilast however, these were not continued. She follows up with Pulmonary provider in in [place], Dr. Thomas Still wheezing today, no improvement from yesterday On Singulair 10mg, Pulmicort .5mg BID , Brovana, Spiriva, Theophylline, Azithromycin 250mg MWF currently on Prednisone 40mg daily tomorrow, decrease by 10mg every three days (day2/3) Continue flutter valve, pulmonary toilet with mucinex Finished Doxycycline started on azithromycin 250 mg MWF for antiinflammatory properties on 08/03, continue on discharge 98% on 2L PT/OT, ambulate will repeat chest x-ray will need close pulmonary follow up as an outpatient. Consulted pulmonary as patient is not improving and continues to wheeze despite maximal treatment. Chronic diastolic CHF - patient is euvolemic today, no edema Type 2 DM - Continue home metformin - ISS with accuchecks achs - Added NPH 30 mg SubQ Q am while on prednisone taper to control glucose. - morning sugar 85 - taper back to 25 units tomorrow AM Depression - Continue Remeron and Seroquel - Psych consult placed as part of [facility] process evaluation - this will likely delay her discharge from the hospital to [facility] for short term PT/OT. GERD - Continue Zantac Hx of PE - Continue Xarelto VTE: Xarelto Dispo: Admitted for possible placement to [facility], pt will require PT/OT for short term - insurance accepted but waiting on bed placement Code status: FULL Disposition: here until [facility] process completed, to [facility] once complete Continued [facility] stay due to: home environment unsafe for pt Discharge planning: uncertain
--- NOTE | 2017-08-09 10:55 | DIAGNOSTIC IMAGING REPORT ---
CHEST 2 VIEWS ROUTINE HISTORY: wheezing COMPARISON: Chest 08/01/2017. FINDINGS: The lungs are hyperexpanded with mild apical predominant changes. The heart is normal in size. Increased interstitial markings at the lung bases remain unchanged and likely represent vascular crowding. No new focal lung consolidations to suggest pneumonia. No evidence for pulmonary edema. No pleural effusions. No pneumothorax. IMPRESSION: No significant change compared to the prior study. No acute process. Emphysema. Electronically signed by: Charly Cabrera M.D. 08/09/2017 10:54 AM Dictated Date/Time: 08/09/2017 10:53 AM
--- NOTE | 2017-08-09 12:00 | Pulmonary Consultation ---
History General Date of Service: Aug 09, 2017. Stated Complaint: Copd Exacerbation HPI The patient is a 72 year old female who presents to [facility] with complaints of Copd Exacerbation. The patient's primary care provider is Anil Rodriguez D.O.. Ms. Clemons is a 72-year-old female with COPD on 2 L/m long-term oxygen therapy , pulmonary embolism in June 2016 status post treatment with Coumadin, diastolic CHF who presented on 08/01/2017 with worsening shortness of breath, dyspnea on exertion, pleuritic chest pain associated with nonproductive cough. She was recently discharged from the hospital on July 30 for COPD exacerbation, VBG at that time was 7.41/51/73/32 saturating 93% on room air. She was discharged home treated with prednisone and doxycycline. She states that several days prior to that admission one of her caregivers had upper respiratory infection associated with pharyngitis for which she been precipitated her coughing. She denies any fever, chills, chest pain, palpitations. Her exercise tolerance is limited to a few steps around the house. She increases her oxygen to 3 L/m for exertion. She denies any recent travel or lower extremity swelling. She denies any orthopnea, paroxysmal nocturnal dyspnea. She does have history of GERD as well as rhinitis for which takes PPI and Flonase. She also has history of mold in her house which he thinks is also contributing to her symptoms. She states over the last she is she has been admitted for COPD her respiratory problems 16 times since April of last year. She states that she sees a weighmaster lead but cannot recall if she 's ever had a pulmonary function tests. She has had a sleep study which was negative for obstructive sleep apnea. In the ER, her initial vital signs were pulse of 80, respiratory rate of 26, pulse oximetry 94% on 2 L nasal cannula. Laboratory data show white blood cell count of, 10, hemoglobin 11, platelet count 333. Chemistry significant for CO2 of 30, BUN of 33 and creatinine of 1.06. Chest x-ray on admission showed no acute pulmonary disease. She was admitted for COPD exacerbation. Today, I was asked to see patient because she still has intermittent wheezing and for optimization of her pulmonary medications. At the time of my evaluation , patient states that she's feeling much better since admission. She is less short of breath, still has intermittent cough and wheezing. She denies any chest pain. She still has some dyspnea on exertion, but this is chronic. Chest x-ray repeated today again shows no acute cardiopulmonary disease. Chronic emphysema to changes noted. From a respiratory standpoint she is on prednisone 40 mg daily, guaifenesin 600 mg every 12 hours by mouth, azithromycin 250 Thursday/Thursday/Thursday, theophylline 400 mg by mouth daily, Brovana nebulizer 15 g twice a day, Pulmicort 0.5 mg twice a day, albuterol 2.5 mg every 4 hours when necessary. Historian: patient Onset: last week Severity: moderate Complaint Status: improved Review of Systems Constitutional: reports: as stated in HPI Eyes: reports: as stated in HPI ENT: reports: as stated in HPI Cardiovascular: reports: as stated in HPI Respiratory: reports: as stated in HPI Gastrointestinal: reports: as stated in HPI Genitourinary - Female: reports: as stated in HPI Musculoskeletal: reports: as stated in HPI Integumentary: reports: as stated in HPI Neurologic: reports: as stated in HPI Psychiatric: reports: as stated in HPI Endocrine: as stated in HPI Hematologic / Lymphatic: as stated in HPI Allergic / Immunologic: as stated in HPI All Other Symptoms All Other Systems: Reviewed and Negative Past Medical History Past Medical History: Past Medical History: #1 GERD #2 CHF #3 COPD--oxygen dependent #4 meningitis #5 ovarian cancer #6 pulmonary embolism June 2016--- treated with Coumadin #7 hypothyroidism #8 rjy-lkehiqr-bildisplk diabetes mellitus Family History No pertient family history secondary to age Mother: Ovarian cancer Social History Tobacco: 100pack year quit 2011 She denies any alcohol abuse or illicit drug use. Maintains independence-close to her daughter. She has home health aide who assists with activities of daily living. Hx Tobacco Use In Past Year?: No (QUIT 5 YEARS AGO) Smoking Status: Former Smoker (quit in ~2011) Marital status: Housing status: lives alone Occupational Status: retired Immunizations History of Influenza Vaccine: Yes History of Tetanus Vaccine?: Yes History of Pneumococcal: Yes History of Hepatitis B Vaccine: Unknown History of MDRO History of MDRO: No Allergies Coded Allergies: Rabies Vaccine (Verified Allergy, Severe, HIVES, 08/01/17) Ragweed (Verified Allergy, Unknown, UNKNOWN, 08/01/17) Tomato (Verified Allergy, Unknown, HIVES, 08/01/17) Current Medications Reported Home Medications Medications Dose Route/Sig Max Daily Dose Days Date Category Dose Instructions Hydroxyzine HCl 10 Mg Tab 10 Mg PO TID PRN 08/01/17 Reported Prednisone 10 Mg Tab 10 Mg PO UD 07/29/17 Rx see medical discharge instructions from hospital for tapering course Doxycycline Hyclate 100 Mg Cap 100 Mg PO BID 07/29/17 Rx Pulmicort Respules 0.5MG/2ML (Budesonide) 0.5 Mg/2 Ml Nebu 0.5 Mg INH BID 06/19/17 Reported Brovana (Arformoterol Tartrate) 15 Mcg/2 Ml Neb 15 Mcg INH BID 06/19/17 Reported Albuterol Sulfate (Albuterol Sulf) 2.5 Mg/3 Ml Nebu 2.5 Mg INH Q4 PRN 06/19/17 Reported Xarelto (Rivaroxaban) 20 Mg Tab 20 Mg PO QAM 04/15/17 Reported Zantac (Ranitidine HCl) 150 Mg Tab 150 Mg PO BID 04/15/17 Reported Glucophage (Metformin Hcl) 1,000 Mg Tab 1,000 Mg PO BID 04/15/17 Reported Lasix (Furosemide) 40 Mg Tab 40 Mg PO QAM 04/15/17 Reported Vitamin D 400 Iu (Cholecalciferol) 400 Unit Cap 400 Inter.unit PO QAM 04/15/17 Reported Pamelor (Nortriptyline HCl) 10 Mg Cap 10 Mg PO HS 04/15/17 Reported Rohit-24 (Theophylline) 400 Mg Capcr 1 Cap PO QAM 04/15/17 Reported Seroquel (Quetiapine Fumarate) 400 Mg Tab 400 Mg PO HS 09/21/16 Reported Synthroid (Levothyroxine Sodium) 25 Mcg Tab 25 Mcg PO QAM 09/21/16 Reported Spiriva Handihaler (Tiotropium Revloc) 30 Puff/540 Mcg Aerp 1 Cap INH DAILY 09/21/16 Reported Singulair (Montelukast Sodium) 10 Mg Tab 10 Mg PO HS 09/21/16 Reported Remeron (Mirtazapine) 45 Mg Tab 45 Mg PO HS 09/21/16 Reported Oyster Shell Calcium + D (Calcium Carbonate-Cholecalcife) 1 Tab Tab 1 Tab PO QAM 09/21/16 Reported Meloxicam 7.5 Mg Tab 7.5 Mg PO BID 09/21/16 Reported Klor-Con M20 (Potassium Chloride) 20 Meq Tabcr 20 Meq PO BID 09/21/16 Reported Flonase Allergy Relief (Fluticasone Propionate (Nasal)) 50 Mcg/Act Spr 1 [place] NANCY DAILY 09/21/16 Reported Dulera 200/5 Mcg (Mometasone Furoate-Formoterol) 1 Aer Aer 1 Puff INH BID 09/21/16 Reported Multi Vitamin with Iron (Multiple Vitamins W/ Iron) 1 Tab Tab 1 Tab PO QAM 09/21/16 Reported Clonazepam 0.5 Mg Tab 0.5 Mg PO Q12H PRN 09/21/16 Reported Physical Physical Exam Vital Signs: Date Time Temp Pulse Resp B/P (MAP) Pulse Ox O2 Delivery O2 Flow Rate FiO2 08/09/17 08:05 36.6 67 18 113/74 (87) 98 Nasal Cannula 2.0 08/09/17 08:01 98 Nasal Cannula 2.0 08/09/17 07:25 91 18 98 Nasal Cannula 2.0 08/09/17 01:41 89 18 97 Nasal Cannula 2.0 08/09/17 00:21 36.8 87 18 110/70 (83) 96 2.0 08/09/17 00:00 Nasal Cannula 2.0 08/08/17 19:34 80 18 96 Nasal Cannula 2.0 08/08/17 16:00 92 Nasal Cannula 2.0 08/08/17 15:43 37.4 101 18 130/71 (90) 92 Nasal Cannula 2.0 08/08/17 14:23 82 18 96 Nasal Cannula 2.0 General Appearance: WD/WN, NO APPARENT DISTRESS Head: NORMOCEPHALIC, ATRAUMATIC Eyes: PERRLA, NO DISCHARGE, EOMI, SCLERAE NORMAL ENT: NORMAL THROAT EXAM Neck: NORMAL RANGE OF MOTION, NO TENDERNESS, TRACHEA MIDLINE, NO STRIDOR, SUPPLE Respiratory: NO RESPIRATORY DISTRESS, NO TENDERNESS, wheezing (clears with cough) Cardiovasular: REGULAR RATE/RHYTHM, NORMAL S1S2, NO M/G/R Abdomen: NON TENDER, NORMAL BOWEL SOUNDS Back: NORMAL INSPECTION Upper Extremities: NO EDEMA, NO DEFORMITY, NORMAL ROM, other (no cyanosis, no clubbing) Lower Extremities: NO EDEMA, NO DEFORMITY, NORMAL ROM Neuro: ALERT, ORIENTED x 3, NORMAL MOTOR EXAM, NORMAL SENSATION, NORMAL MEMORY Psychiatric: NORMAL AFFECT, NO SUICIDAL IDEATION, CONTRACTS FOR SAFETY Diagnostics Labs Results Past 24 Hours Test 08/08/17 11:34 08/08/17 16:54 08/08/17 20:16 08/09/17 06:56 Range/Units Bedside Glucose 256 194 202 72 70-90 mg/dl Diagnostic Radiology CHEST ONE VIEW PORTABLE CLINICAL HISTORY: Respiratory difficulty. Possible pneumonia. COMPARISON STUDY: 07/27/2017 FINDINGS: The cardiac and mediastinal contours are normal. There is no evidence of focal pulmonary consolidation. There is no evidence of failure. No pleural effusions are visualized.[ IMPRESSION: No active disease in the chest. CHEST 2 VIEWS ROUTINE HISTORY: wheezing COMPARISON: Chest 08/01/2017. FINDINGS: The lungs are hyperexpanded with mild apical predominant changes. The heart is normal in size. Increased interstitial markings at the lung bases remain unchanged and likely represent vascular crowding. No new focal lung consolidations to suggest pneumonia. No evidence for pulmonary edema. No pleural effusions. No pneumothorax. IMPRESSION: No significant change compared to the prior study. No acute process. Emphysema. TTE 09/21/2016 * -- Conclusions -- * 1. Normal LV size and wall thickness. * 2. Normal LV function. LVEF 65-70%. No regional wall motion abnormalities. * 3. Normal RV size and function. * 4. No significant valvular pathology. * 5. Normal estimated RA and PA pressures. * 6. No prior studies for comparison. EKG EKG 08/01/2017 Normal sinus rhythm, ventricular rate 91 bpm. Biatrial enlargement Abnormal EKG. Impression Assessment and Plan COPD exacerbation (FEV1 unknown) Chronic hypoxic respiratory failure on long-term oxygen therapy History of pulmonary embolism Mrs. Clemons is a 72-year-old female with acute on chronic respiratory insufficiency. Ms. Clemons has had multiple admissions over the last year for COPD exacerbation. She is currently clinically improved from admission last week however still does have some intermittent wheezing that clears with cough. She is saturating well on 2 L nasal cannula. Recommendations Continue with nasal cannula to maintain SaO2 between 88-92%. Continue with slow prednisone taper by 10 mg every 3 days. Continue with Brovana nebulizer and Pulmicort nebulizer. Patient advised to rinse mouth after use of Pulmicort. Continue with Spiriva Respimat 2 puffs once a day. Discontinue Dulera as patient needs dual long acting beta agonist and inhaled corticosteroids. Continue with theophylline 400 mg, check theophylline level. Continue with azithromycin weekly triple therapy. Check QT interval. Continue with PPI as well as Flonase nasal spray. I will add Mucomyst 600 mg by mouth twice a day as well as Daliresp, both of which have been shown to decrease rate of hospital readmission. I explained that Daliresp may cause her GI upset as well as weight loss. This may be a trial but can be discontinued if she has any adverse effects. Upon hospital discharge, patient will follow with the [facility] pulmonary group or her weighmaster lead for full PFT. She may benefit from pulmonary rehabilitation. Inhaler technique reviewed. I appreciate the consult. Please contact me if you any further questions or concerns.
[2017-08-09] MEDS: MIRTAZAPINE TAB 15 MG TAB PO SCH (21:17)
[2017-08-09] MEDS: ACETYLCYSTEINE 600 MG CAP PO SCH (21:17)
[2017-08-09] MEDS: QUETIAPINE FUMARATE 200 MG TAB PO SCH (21:19)
[2017-08-09] MEDS: MONTELUKAST SOD 10 MG TAB PO SCH (21:20)
[2017-08-09] MEDS: NORTRIPTYLINE HCL 10 MG CAP PO SCH (21:20)
[2017-08-10] VITALS (9 sets, daily range): BP systolic 99–133; BP diastolic 55–83; PULSE 79–116; TEMP 36.8–37.2; O2SAT 95–98
[2017-08-10] MEDS: ALBUTEROL 0.083% NEBU SOLN 3 ML VIAL INH PRN ×2 (05:03→14:37)
[2017-08-10] MEDS: LEVOTHYROXINE 25 MCG TAB PO SCH (06:24)
[2017-08-10] MEDS: BUDESONIDE 0.5 MG/2 ML VIAL (PULMICORT) INH SCH ×2 (07:15→20:00)
[2017-08-10] MEDS: ARFORMOTEROL TART 15MCG/2ML VIAL INH SCH ×2 (07:15→20:00)
[2017-08-10] MEDS: DULERA~ORDER AWAITING ACTION SCH ×3 (07:25→23:54)
[2017-08-10] MEDS: POLYETHYLENE (MIRALAX) 17 GM PACK PO SCH (08:18)
[2017-08-10] MEDS: GUAIFENESIN 600 MG TABCR PO SCH ×2 (08:18→21:14)
[2017-08-10] MEDS: BISACODYL 5 MG TABEC PO SCH (08:18)
[2017-08-10] MEDS: POTASSIUM CHLORIDE 20 MEQ TABCR PO SCH ×2 (08:19→21:13)
[2017-08-10] MEDS: CEROVITE ADV FORMULA TAB PO SCH (08:19)
[2017-08-10] MEDS: RANITIDINE HCL 150 MG TAB PO SCH ×2 (08:19→21:12)
[2017-08-10] MEDS: ACETYLCYSTEINE 600 MG CAP PO SCH ×2 (08:20→21:13)
[2017-08-10] MEDS: hydrOXYzine HCL 10 MG TAB PO PRN (08:20)
[2017-08-10] MEDS: RIVAROXABAN 10 MG TAB PO SCH (08:21)
--- NOTE | 2017-08-10 08:21 | Hospitalist Progress Note ---
Hospitalist Progress Note Date of Service Aug 10, 2017. Subjective Pt evaluation today including: conversation w/ patient, physical exam, chart review, lab review Pain: None PO Intake: Good Voiding: no voiding problems The patient was seen and examined this morning. Pt reports doing well today, she has been ambulating without difficulty or shortness of breath. Her wheezing has improved since I saw her last week, but it is still present. She has not acute complaints at this time. Pt is questioning when she will be going to [facility]. ROS: 6 point ROS reviewed and otherwise negative. Objective Vital Signs Date Time Temp Pulse Resp B/P (MAP) Pulse Ox O2 Delivery O2 Flow Rate FiO2 08/10/17 07:56 36.8 79 20 121/83 (96) 97 08/10/17 07:17 88 18 97 Nasal Cannula 2.0 08/10/17 05:04 90 16 98 Nasal Cannula 2.0 08/10/17 00:05 36.9 90 18 104/67 (79) 96 Nasal Cannula 2.0 08/10/17 00:00 Nasal Cannula 2.0 08/09/17 23:21 86 16 97 Nasal Cannula 2.0 08/09/17 20:00 Nasal Cannula 2.0 08/09/17 19:44 36.4 93 20 107/66 (80) 95 Nasal Cannula 2.0 08/09/17 18:29 89 18 98 Nasal Cannula 3.0 08/09/17 16:02 36.8 106 16 116/67 (83) 95 08/09/17 14:20 88 18 96 Nasal Cannula 2.0 Physical Exam General Appearance: WD/WN, no apparent distress, + obese Eyes: PERRL, EOMI ENT: hearing grossly normal, pharynx normal Neck: supple, no JVD Respiratory/Chest: + pertinent finding (On 2 L via NC, Mild expiratory wheeze throughout, more prominent in the R field. No crackles or rales. Improved compared to yesterday. ) Cardiovascular: regular rate, rhythm, + systolic murmur (faint ) Abdomen: normal bowel sounds, non tender, soft Extremities: non-tender, no pedal edema, no calf tenderness Neurologic/Psychiatric: alert, oriented x 3 Skin: normal color, warm/dry Laboratory Results Last 24 Hours Test 08/09/17 11:10 08/09/17 11:26 08/09/17 16:35 08/09/17 20:47 Bedside Glucose 137 mg/dl 267 mg/dl 235 mg/dl Theophylline Level 4 mcg/ml Test 08/10/17 07:32 Bedside Glucose 121 mg/dl Assessment and Plan 72 yo F with COPD and chronic respiratory failure, recent DC from exacerbation - likely was not taking appropriate amount of prednisone so symptoms returned. COPD exacerbation: several admissions in past two months - Deemed serve COPD during prior admissions given her multple re-admissions. - In past, she was supposed to start azithromycin and roflumilast however, these were not continued. - She follows up with Pulmonary provider in in [place], Dr. Thomas - will need close pulmonary follow up as an outpatient. - Still wheezing today, no improvement from yesterday - On Singulair 10mg, Pulmicort .5mg BID IH, Brovana, Spiriva 2 puff daily, Theophylline 400 mg, Azithromycin 250mg MWF - currently on Prednisone 40mg daily tomorrow, decrease by 10mg every three days (day3/3) - Continue flutter valve, pulmonary toilet with mucinex - Finished Doxycycline - started on azithromycin 250 mg MWF for antiinflammatory properties on 08/03, continue on discharge - 98% on 2L - PT/OT, ambulate - CXR repeated on 08/09 and was negative - consulted pulmonary as patient is not improving and continues to wheeze despite maximal treatment. - added Mucomyst 600 mg by mouth twice a day as well as Daliresp Chronic diastolic CHF - patient is euvolemic today, no edema Type 2 DM - Continue home metformin - ISS with accuchecks achs - Added NPH 30 mg SubQ Q am while on prednisone taper to control glucose. - morning sugar 85 - taper back to 25 units tomorrow AM Depression - Continue Remeron and Seroquel - Psych consult placed as part of [facility] process evaluation - this will likely delay her discharge from the hospital to [facility] for short term PT/OT. GERD - Continue Zantac Hx of PE - Continue Xarelto VTE: Xarelto Code status: FULL Dispo: Admitted for possible placement to [facility], [facility] process ongoing, Janelle cavanaugh today from office of aging.
[2017-08-10] MEDS: FLUTICASONE PROPIONATE NA SPR 16 GM BTL NAE SCH (08:29)
[2017-08-10] MEDS: FUROSEMIDE 40 MG TAB PO SCH (08:29)
[2017-08-10] MEDS: MELOXICAM 7.5 MG TAB PO SCH ×2 (08:30→21:14)
[2017-08-10] MEDS: TIOTROPIUM BROMIDE 5 PUFF/90 MCG INH INH SCH (08:30)
[2017-08-10] MEDS: METFORMIN HCL 500 MG TAB PO SCH ×2 (08:31→17:47)
[2017-08-10] MEDS: CHOLECALCIFEROL 400 INTER.UNIT TAB PO SCH (08:31)
[2017-08-10] MEDS: ROFLUMILAST 500 MCG TAB PO SCH (08:31)
[2017-08-10] MEDS: THEOPHYLLINE 400MG CONTROLLED REL TAB PO SCH (08:32)
[2017-08-10] MEDS: AZITHROMYCIN 250 MG TAB PO SCH (08:32)
[2017-08-10] MEDS: INSULIN HUMAN NPH SC SCH (08:35)
[2017-08-10] MEDS: INSULIN ASPART 100 UNITS/ML 3 ML PEN SC SCH ×4 (08:36→21:00)
[2017-08-10] MEDS: MONTELUKAST SOD 10 MG TAB PO SCH (21:11)
[2017-08-10] MEDS: NORTRIPTYLINE HCL 10 MG CAP PO SCH (21:12)
[2017-08-10] MEDS: MIRTAZAPINE TAB 15 MG TAB PO SCH (21:12)
[2017-08-10] MEDS: QUETIAPINE FUMARATE 200 MG TAB PO SCH (21:14)
[2017-08-11] VITALS (12 sets, daily range): BP systolic 112–152; BP diastolic 68–91; PULSE 51–112; TEMP 36.4–37.2; O2SAT 93–99
[2017-08-11] MEDS: ALBUTEROL 0.083% NEBU SOLN 3 ML VIAL INH PRN ×3 (05:49→23:12)
[2017-08-11] MEDS: LEVOTHYROXINE 25 MCG TAB PO SCH (05:57)
[2017-08-11 06:54] LABS: HEMATOCRIT 35.5 % (37-47); MEAN CELL VOLUME 82.4 fL (80-100); MEAN CORPUSCULAR HEMOGLOBIN 25.8 pg (25-34); MEAN CORPUSCULAR HGB CONC 31.3 g/dl (32-36); MEAN PLATELET VOLUME 8.5 fL (7.4-10.4); PLATELET COUNT 276 K/uL (130-400); RED BLOOD COUNT 4.31 M/uL (4.2-5.4); WHITE BLOOD COUNT 17.31 K/uL (4.8-10.8)
[2017-08-11] MEDS: ARFORMOTEROL TART 15MCG/2ML VIAL INH SCH ×2 (07:05→19:06)
[2017-08-11] MEDS: BUDESONIDE 0.5 MG/2 ML VIAL (PULMICORT) INH SCH ×2 (07:05→19:06)
[2017-08-11] MEDS: DULERA~ORDER AWAITING ACTION SCH ×2 (07:40→23:39)
[2017-08-11] MEDS: CEROVITE ADV FORMULA TAB PO SCH (08:00)
[2017-08-11] MEDS: METFORMIN HCL 500 MG TAB PO SCH ×2 (08:00→17:36)
[2017-08-11] MEDS: CHOLECALCIFEROL 400 INTER.UNIT TAB PO SCH (08:00)
[2017-08-11] MEDS: RANITIDINE HCL 150 MG TAB PO SCH ×2 (08:00→20:52)
[2017-08-11] MEDS: MELOXICAM 7.5 MG TAB PO SCH ×2 (08:01→20:52)
[2017-08-11] MEDS: hydrOXYzine HCL 10 MG TAB PO PRN (08:01)
[2017-08-11] MEDS: RIVAROXABAN 10 MG TAB PO SCH (08:01)
[2017-08-11] MEDS: FUROSEMIDE 40 MG TAB PO SCH (08:02)
[2017-08-11] MEDS: ACETYLCYSTEINE 600 MG CAP PO SCH ×2 (08:02→20:52)
[2017-08-11] MEDS: GUAIFENESIN 600 MG TABCR PO SCH ×2 (08:03→20:52)
[2017-08-11] MEDS: POTASSIUM CHLORIDE 20 MEQ TABCR PO SCH ×2 (08:03→20:52)
[2017-08-11] MEDS: ROFLUMILAST 500 MCG TAB PO SCH (08:03)
[2017-08-11] MEDS: THEOPHYLLINE 400MG CONTROLLED REL TAB PO SCH (08:03)
[2017-08-11] MEDS: POLYETHYLENE (MIRALAX) 17 GM PACK PO SCH (08:03)
[2017-08-11] MEDS: FLUTICASONE PROPIONATE NA SPR 16 GM BTL NAE SCH (08:04)
[2017-08-11] MEDS: INSULIN HUMAN NPH SC SCH (08:13)
[2017-08-11] MEDS: INSULIN ASPART 100 UNITS/ML 3 ML PEN SC SCH ×4 (08:14→20:45)
[2017-08-11] MEDS: BISACODYL 5 MG TABEC PO SCH (08:14)
[2017-08-11] MEDS: TIOTROPIUM BROMIDE 5 PUFF/90 MCG INH INH SCH (08:51)
--- NOTE | 2017-08-11 12:45 | Hospitalist Progress Note ---
Hospitalist Progress Note Date of Service Aug 11, 2017. Subjective Pt evaluation today including: conversation w/ patient, physical exam, chart review, lab review, review of studies Pain: None PO Intake: Good Voiding: no voiding problems The patient was seen and examined this morning. Pt reports doing well, her breathing is improved. Minimal cough, no productive sputum. She denies any acute complaints. PT is ambulating without difficulty or shortness of breath ROS: 6 point ROS reviewed and negative. Objective Vital Signs Date Time Temp Pulse Resp B/P (MAP) Pulse Ox O2 Delivery O2 Flow Rate FiO2 08/11/17 11:38 51 16 96 Nasal Cannula 2.0 08/11/17 11:34 36.6 101 18 115/72 (86) 95 2.0 08/11/17 08:00 Nasal Cannula 2.0 08/11/17 07:32 36.4 81 18 113/70 (84) 99 2.0 08/11/17 07:05 82 16 97 Nasal Cannula 2.0 08/11/17 05:50 85 16 98 Nasal Cannula 2.0 08/11/17 03:54 36.6 90 20 112/68 (83) 93 2.0 08/11/17 00:11 36.8 96 16 136/82 (100) 96 Nasal Cannula 2.0 08/11/17 00:00 Nasal Cannula 2.0 08/10/17 20:21 36.9 100 20 99/55 (70) 97 Nasal Cannula 2.0 08/10/17 20:01 105 16 97 Nasal Cannula 2.0 08/10/17 20:00 Nasal Cannula 2.0 08/10/17 16:11 37.2 116 20 133/67 (89) 95 Nasal Cannula 2.0 08/10/17 16:00 Nasal Cannula 2.0 08/10/17 14:37 105 16 97 Nasal Cannula 2.0 Physical Exam General Appearance: WD/WN, no apparent distress Eyes: PERRL, EOMI ENT: hearing grossly normal, pharynx normal, + pertinent finding (MMM) Neck: supple, no JVD Respiratory/Chest: lungs clear, no respiratory distress, no accessory muscle use Cardiovascular: regular rate, rhythm, no murmur Abdomen: normal bowel sounds, non tender, soft Extremities: non-tender, no pedal edema Neurologic/Psychiatric: alert, normal mood/affect, oriented x 3 Skin: normal color, warm/dry Laboratory Results Last 24 Hours Test 08/10/17 16:35 08/10/17 20:38 08/11/17 06:35 08/11/17 07:16 Bedside Glucose 235 mg/dl 170 mg/dl 152 mg/dl White Blood Count 17.31 K/uL Red Blood Count 4.31 M/uL Hemoglobin 11.1 g/dL Hematocrit 35.5 % Mean Corpuscular Volume 82.4 fL Mean Corpuscular Hemoglobin 25.8 pg Mean Corpuscular Hemoglobin Concent 31.3 g/dl RDW Standard Deviation 53.4 fL RDW Coefficient of Variation 18.1 % Platelet Count 276 K/uL Mean Platelet Volume 8.5 fL Test 08/11/17 11:25 Bedside Glucose 191 mg/dl Assessment and Plan 72 yo F with COPD and chronic respiratory failure, recent DC from exacerbation - likely was not taking appropriate amount of prednisone so symptoms returned. COPD exacerbation: several admissions in past two months - Deemed serve COPD during prior admissions given her multple re-admissions. - In past, she was supposed to start azithromycin and roflumilast however, these were not continued. - She follows up with Pulmonary provider in in [place], Dr. Thomas - will need close pulmonary follow up as an outpatient. - Still wheezing today, no improvement from yesterday - On Singulair 10mg, Pulmicort .5mg BID IH, Brovana, Spiriva 2 puff daily, Theophylline 400 mg, Azithromycin 250mg MWF - currently on Prednisone 40mg daily tomorrow, decrease by 10mg every three days (day3/3) - Continue flutter valve, pulmonary toilet with mucinex - Finished Doxycycline - started on azithromycin 250 mg MWF for antiinflammatory properties on 08/03, continue on discharge - 98% on 2L - PT/OT, ambulate - CXR repeated on 08/09 and was negative - consulted pulmonary as patient is not improving and continues to wheeze despite maximal treatment. - added Mucomyst 600 mg by mouth twice a day as well as Daliresp Chronic diastolic CHF - patient is euvolemic today, no edema Type 2 DM - Continue home metformin - ISS with accuchecks achs - Continue NPH 25 mg SubQ Q am while on prednisone taper to control glucose. - morning sugar 85 Depression - Continue Remeron and Seroquel - Psych consult placed as part of [facility] process evaluation - this will likely delay her discharge from the hospital to [facility] for short term PT/OT. GERD - Continue Zantac Hx of PE - Continue Xarelto VTE: Xarelto Code status: FULL Dispo: Admitted for possible placement to [facility], [facility] process ongoing, Janelle from office of aging evaluated pt on 08/10, awaiting approval of [employer] Process
[2017-08-11] MEDS: NORTRIPTYLINE HCL 10 MG CAP PO SCH (20:52)
[2017-08-11] MEDS: MONTELUKAST SOD 10 MG TAB PO SCH (20:52)
[2017-08-11] MEDS: QUETIAPINE FUMARATE 200 MG TAB PO SCH (20:52)
[2017-08-11] MEDS: MIRTAZAPINE TAB 15 MG TAB PO SCH (20:52)
[2017-08-12] MEDS: LEVOTHYROXINE 25 MCG TAB PO SCH (06:06)
[2017-08-12 07:09] VITALS: BP 121/68; PULSE 73; TEMP 36.8; O2SAT 97
[2017-08-12 07:25] VITALS: PULSE 71; O2SAT 97
[2017-08-12] MEDS: BUDESONIDE 0.5 MG/2 ML VIAL (PULMICORT) INH SCH (07:25)
[2017-08-12] MEDS: ARFORMOTEROL TART 15MCG/2ML VIAL INH SCH (07:25)
[2017-08-12] MEDS: INSULIN ASPART 100 UNITS/ML 3 ML PEN SC SCH ×2 (07:57→12:08)
[2017-08-12] MEDS: CEROVITE ADV FORMULA TAB PO SCH (07:59)
[2017-08-12] MEDS: DULERA~ORDER AWAITING ACTION SCH (07:59)
[2017-08-12] MEDS: FUROSEMIDE 40 MG TAB PO SCH (08:01)
[2017-08-12] MEDS: ROFLUMILAST 500 MCG TAB PO SCH (08:02)
[2017-08-12] MEDS: CHOLECALCIFEROL 400 INTER.UNIT TAB PO SCH (08:02)
[2017-08-12] MEDS: GUAIFENESIN 600 MG TABCR PO SCH (08:02)
[2017-08-12] MEDS: METFORMIN HCL 500 MG TAB PO SCH (08:02)
[2017-08-12] MEDS: RIVAROXABAN 10 MG TAB PO SCH (08:02)
[2017-08-12] MEDS: RANITIDINE HCL 150 MG TAB PO SCH (08:03)
[2017-08-12] MEDS: POTASSIUM CHLORIDE 20 MEQ TABCR PO SCH (08:03)
[2017-08-12] MEDS: FLUTICASONE PROPIONATE NA SPR 16 GM BTL NAE SCH (08:03)
[2017-08-12] MEDS: ACETYLCYSTEINE 600 MG CAP PO SCH (08:04)
[2017-08-12] MEDS: THEOPHYLLINE 400MG CONTROLLED REL TAB PO SCH (08:04)
[2017-08-12] MEDS: MELOXICAM 7.5 MG TAB PO SCH (08:04)
[2017-08-12] MEDS: TIOTROPIUM BROMIDE 5 PUFF/90 MCG INH INH SCH (08:04)
[2017-08-12] MEDS: POLYETHYLENE (MIRALAX) 17 GM PACK PO SCH (08:05)
[2017-08-12] MEDS: INSULIN HUMAN NPH SC SCH (08:09)
[2017-08-12] MEDS: BISACODYL 5 MG TABEC PO SCH (08:11)
[2017-08-12] MEDS ORDERED: MRLP17 PO ×2 (08:44→09:27)
[2017-08-12] MEDS ORDERED: AZIT250T PO (08:44)
[2017-08-12] MEDS ORDERED: MCM600 PO (08:44)
[2017-08-12] MEDS ORDERED: DLR500 PO (08:44)
[2017-08-12] MEDS ORDERED: PRED10TA PO (08:44)
[2017-08-12] MEDS ORDERED: NVLNI SC (08:44)
[2017-08-12] MEDS ORDERED: DLC5 PO ×2 (08:44→09:27)
--- NOTE | 2017-08-12 08:46 | Discharge Instructions ---
Discharge Instructions Date of Service Aug 12, 2017. Admission Reason for Admission: Copd Exacerbation Discharge Discharge Diagnosis / Problem: COPD exacerbation Discharge Goals Goal(s): Decrease discomfort, Improve function, Increase independence, Improve disease control Activity Recommendations Activity Level: Ambulates in room Therapies: Physical Therapy, Occupational Therapy Lifting Limitations: no more than 25 pounds, gradually increase as tolerated Exercise/Sports Limitations: none, gradually increase as tolerated Shower/Bathe: no limitations . Additional Information Patient informed of condition: Yes Advance Directives: No DNR: No Level of Care: Acute Rehab Communicable Disease: No Prognosis: Stable Instructions / Follow-Up Instructions / Follow-Up You were admitted to [facility] with COPD exacerbation and diagnosed with the same. During your stay here you were treated with intravenous steriods at first, then transitioned to a slow prednisone taper. You recieved other supportive care with nebulizer treatments, supplemental oxygen, and worked with Physical and Occupational therapy. Medications: Continue taking prednisone taper as instructed below: Take 30 mg daily x 2 more days Then 20 mg x 3 days Then 10 mg x 3 days OR until seen by pulmonology as an outpatient Continue taking Azithromycin 250 mg on Thursday, Thursday and Thursday for antiinflammatory properties for COPD Continue taking Daliresp and Acetylcystine (ie. Mucomyst) as directed for COPD Take insulin NPH for 2 more days while you are on the 30 mg of prednisone. After this resume your normal regimen for diabetes with metformin only. STOP Dulera inhaler. Continue taking your other medications as directed. Appointments: Follow up with your Primary Care Provider within 1 week. Follow up with pulmonology within 1-2 weeks. You should see a provider ideally in 10 days, prior to the end of the prednisone taper. You will need to be set up for the pulmonology rehab program before [facility]. Current Hospital Diet Patient's current hospital diet: AHA Diet (Heart Healthy), Diabetes Type 2 Diet Discharge Diet Recommended Diet: AHA Diet (Heart Healthy), Diabetes Type 2 Diet Pending Studies Studies pending at discharge: no Medical Emergencies . Who to Call and When: Medical Emergencies: If at any time you feel your situation is an emergency, please call 911 immediately. . Non-Emergent Contact Non-Emergency issues call your: Plant Worker Call Non-Emergent contact if: you have a fever, temperature is above 100.5 other concerns with your health. Call 911 or go directly to the Emergency Department if you experience any of the following: Chest pain, chest tightness, shortness of breath, abdominal pain , lightheadedness, dizziness, gastrointestinal bleeding, or have any other concerns regarding your health. . Past History Medical & Surgical History: (1) COPD (chronic obstructive pulmonary disease) (2) Acute respiratory failure with hypoxia (3) CHF (congestive heart failure) (4) Acid reflux (5) Diabetes (6) GERD (gastroesophageal reflux disease) (7) KATHLEEN (generalized anxiety disorder) (8) Major depression, recurrent, full remission (9) Hyperglycemia due to type 2 diabetes mellitus . "Provider Documentation" section prepared by Fouzia Olson. . Core Measure Problem Core Measures: None
[2017-08-12 09:10] VITALS: BP 121/68; PULSE 71; TEMP 36.8; O2SAT 97
[2017-08-12] MEDS: hydrOXYzine HCL 10 MG TAB PO PRN (10:48)
[2017-08-12 11:24] VITALS: PULSE 88; O2SAT 98
[2017-08-12] MEDS: ALBUTEROL 0.083% NEBU SOLN 3 ML VIAL INH PRN (11:24)
--- NOTE | 2017-08-12 12:44 | Discharge Summary ---
Discharge Summary Date of Service Aug 12, 2017. Discharge Summary Admission Date: Aug 02, 2017 at 19:10 Discharge Date: Aug 12, 2017 Discharge Disposition: Rehab Principal Diagnosis: COPD exacerbation Problems/Secondary Diagnoses: COPD chronic respiratory failure Chronic diastolic CHF Type 2 DM Depression GERD Hx of PE Immunizations: Have You Had Influenza Vaccine: Yes History of Tetanus Vaccine?: Yes History of Pneumococcal: Yes History of Hepatitis B Vaccine: Unknown Procedures: CHEST ONE VIEW PORTABLE 08/01/17 FINDINGS: The cardiac and mediastinal contours are normal. There is no evidence of focal pulmonary consolidation. There is no evidence of failure. No pleural effusions are visualized. IMPRESSION: No active disease in the chest. CHEST 2 VIEWS ROUTINE 08/09/17 FINDINGS: The lungs are hyperexpanded with mild apical predominant changes. The heart is normal in size. Increased interstitial markings at the lung bases remain unchanged and likely represent vascular crowding. No new focal lung consolidations to suggest pneumonia. No evidence for pulmonary edema. No pleural effusions. No pneumothorax. IMPRESSION: No significant change compared to the prior study. No acute process. Emphysema. Electronically signed by: Charly Cabrera M.D. 08/09/2017 10:54 AM Dictated Date/Time: 08/09/2017 10:53 AM The status of this report is Signed. Consultations: Pulmonology Psychiatry Medication Reconciliation New Medications: Acetylcysteine (Acetylcysteine) 600 Mg Cap 600 MG PO BID for 30 Days, #60 DOSE Azithromycin (Zithromax) 250 Mg Tab 250 MG PO MWF, #1 TAB Bisacodyl (Bisacodyl EC) 5 Mg Tabec 10 MG PO DAILY PRN for Constipation for 30 Days, #60 TAB Insulin Human NPH (Novolin N) 100 Units/Ml Susp 20 UNITS SC QDB for 2 Days, #2 DOSE Use while pt is taking 30 mg Prednisone. Finish in 2 days. Polyethylene (Miralax) 17 Gm Pow 17 GM PO DAILY PRN for Constipation for 30 Days, #30 DOSE Roflumilast (Daliresp) 500 Mcg Tab 500 MCG PO DAILY for 30 Days, #30 TAB Continued Medications: Albuterol Sulf (Albuterol Sulfate) 2.5 Mg/3 Ml Nebu 2.5 MG INH Q4 PRN for Shortness of Breath Arformoterol Tartrate (Brovana) 15 Mcg/2 Ml Neb 15 MCG INH BID, INHALER Budesonide (Pulmicort Respules 0.5MG/2ML) 0.5 Mg/2 Ml Nebu 0.5 MG INH BID, EA Calcium Carbonate-Cholecalcife (Oyster Shell Calcium + D) 1 Tab Tab 1 TAB PO QAM Cholecalciferol (Vitamin D 400 Iu) 400 Unit Cap 400 INTER.UNIT PO QAM Clonazepam (Clonazepam) 0.5 Mg Tab 0.5 MG PO Q12H PRN for Anxiety/Agitation Fluticasone Propionate (Nasal) (Flonase Allergy Relief) 50 Mcg/Act Spr 1 SPRAY NANCY DAILY Furosemide (Lasix) 40 Mg Tab 40 MG PO QAM, TAB Hydroxyzine HCl (Hydroxyzine HCl) 10 Mg Tab 10 MG PO TID PRN for Anxiety Levothyroxine Sodium (Synthroid) 25 Mcg Tab 25 MCG PO QAM Meloxicam (Meloxicam) 7.5 Mg Tab 7.5 MG PO BID Metformin Hcl (Glucophage) 1,000 Mg Tab 1000 MG PO BID, TAB Mirtazapine (Remeron) 45 Mg Tab 45 MG PO HS Montelukast Sodium (Singulair) 10 Mg Tab 10 MG PO HS Multiple Vitamins W/ Iron (Multi Vitamin with Iron) 1 Tab Tab 1 TAB PO QAM Nortriptyline (Pamelor) 10 Mg Cap 10 MG PO HS Potassium Chloride (Klor-Con M20) 20 Meq Tabcr 20 MEQ PO BID Prednisone (Prednisone) 10 Mg Tab 10 MG PO UD for 10 Days, #18 TAB (This prescription has been renewed) see medical discharge instructions from hospital for tapering course Quetiapine Fumarate (Seroquel) 400 Mg Tab 400 MG PO HS Ranitidine Hcl (Zantac) 150 Mg Tab 150 MG PO BID, TAB Rivaroxaban (Xarelto) 20 Mg Tab 20 MG PO QAM, TAB Theophylline (Rohit-24) 400 Mg Capcr 1 CAP PO QAM Tiotropium Buchanan (Spiriva Handihaler) 30 Puff/540 Mcg Aerp 1 CAP INH DAILY Discontinued Medications: Doxycycline Hyclate (Doxycycline Hyclate) 100 Mg Cap 100 MG PO BID, #9 CAP Mometasone Furoate-Formoterol (Dulera 200/5 Mcg) 1 Aer Aer 1 PUFF INH BID Discharge Exam The patient was seen and examined this morning. Pt reports doing well, she has no acute complaints. Her breathing feels good and she denies wheezing at all. She has an occasional cough which is nonproductive but that this is overall greatly improved. She denies any ALVAREZ or at rest. Denies fever, chills, sweats , chest pain or chest tightness. Her bowels have been slightly loose since having daily ordered stool softeners so those have been changed to prn meds upon discharge. She denies any abdominal pain, n/v/d/c. ROS: 6 point ROS negative other than the above. Physical Exam General Appearance: WD/WN, no apparent distress Eyes: PERRL, EOMI ENT: hearing grossly normal, pharynx normal, + pertinent finding (MMM) Neck: supple, no JVD Respiratory/Chest: lungs clear, no respiratory distress, no accessory muscle use, on 2 L via NC. No wheeze, rales or rhonchi. Cardiovascular: regular rate, rhythm, no murmur Abdomen: normal bowel sounds, non tender, soft Extremities: non-tender, no pedal edema Neurologic/Psychiatric: alert, normal mood/affect, oriented x 3 Skin: normal color, warm/dry Hospital Course History of Present Illness Source: patient Mini is a 72 yo F with COPD, on 2L oxygen constantly,chronic diastolic CHF, and hypothyroidism who presents with worsening shortness of breath. She was discharged from [facility] 2 days ago after being treated for a COPD exacerbation with prednisone and also doxycycline. She reports she was taking her medications and her inhaler, but was not sure what dose of prednisone she was on. She was feeling very short of breath even walking a few steps. She tried increasing her oxygen to 3L but this did not have an effect. She denied any chest pain. She reports she still had a cough which made her ribs hurt. She denied any abdominal pain or leg swelling. She reports at her house there is a lot of mold and the landlord has not cleared it up. She is looking to move to [facility]. She currently has caregivers in for 4 nights per week and 3 days per week. Of note, this is her 6th admission and 7th visit to the hospital for COPD exacerbations since September. Physical Exam Vital Signs Date Time Temp Pulse Resp B/P (MAP) Pulse Ox O2 Delivery O2 Flow Rate FiO2 08/01/17 20:13 108 17 95 08/01/17 20:01 134/72 08/01/17 19:43 89 12 98 08/01/17 19:36 80 26 94 Nasal Cannula 2.0 08/01/17 19:32 91 08/01/17 19:31 139/65 08/01/17 19:23 94 Nasal Cannula 2.0 08/01/17 19:22 94 Nasal Cannula 2.0 08/01/17 19:18 116/80 08/01/17 19:18 94 Nasal Cannula 2.0 08/01/17 19:18 37.1 99 24 116/80 94 Nasal Cannula 2.0 General Appearance: WD/WN, + mild distress, + thin Head: normocephalic, atraumatic Eyes: normal inspection, PERRL ENT: hearing grossly normal Neck: supple, no JVD Respiratory/Chest: + wheezing (diffuse wheeze throughout chest) Cardiovascular: regular rate, rhythm, no murmur, normal peripheral pulses Abdomen/GI: normal bowel sounds, non tender, soft Back: no CVA tenderness, no muscle spasm Extremities/Musculoskelatal: no calf tenderness, no pedal edema Neurologic/Psych: alert, normal mood/affect, oriented x 3 Skin: no rash Hospital Course: 72 yo F with COPD and chronic respiratory failure, recent DC from exacerbation - likely was not taking appropriate amount of prednisone so symptoms returned. COPD exacerbation: several admissions in past two months - Deemed serve COPD during prior admissions given her multple re-admissions. - In past, she was supposed to start azithromycin and roflumilast however, these were not continued. - She follows up with Pulmonary provider in in [place], Dr. Thomas - will need close pulmonary follow up as an outpatient. - Wheezing significantly improved. - On Singulair 10mg, Pulmicort .5mg BID IH, Brovana, Spiriva 2 puff daily, Theophylline 400 mg, Azithromycin 250mg MWF - currently on Prednisone 30mg daily starting 08/02- decrease by 10mg every three days and should see pulmonology prior to end of the taper. - Pt will need pulmonology rehab scheduled upon her discharge to [facility]. - Used flutter valve, pulmonary toilet with mucinex while admitted. Can use mucinex over the counter as needed. - Finished Doxycycline during inpatient stay. - started on azithromycin 250 mg MWF for antiinflammatory properties on 08/03, continue on discharge - 98% on 2L - PT/OT, ambulate - CXR repeated on 08/09 and was negative - Pulmonology consulted - added Mucomyst 600 mg by mouth twice a day as well as Daliresp - HOLD dulera on discharge Chronic diastolic CHF - patient is euvolemic today, no edema Type 2 DM - Continue home metformin - ISS with accuchecks achs - Continue NPH 20 mg SubQ Q am x 2 more days upon discharge while on 30 mg prednisone, once prednisone dose decreases to 20 mg can stol. NPH was used in hospital and adjusted for prednisone taper to control glucose. Depression - Continue Remeron and Seroquel - Psych consult placed as part of [facility] process evaluation - this will likely delay her discharge from the hospital to [facility] for short term PT/OT. GERD - Continue Zantac Hx of PE - Continue Xarelto VTE: Xarelto Code status: FULL Dispo: [facility] process complete, accepted to [facility], discharge today. Total Time Spent: Greater than 30 minutes This includes examination of the patient, discharge planning, medication reconciliation, and communication with other providers. Discharge Instructions Please refer to the electronic Patient Visit Report (Discharge Instructions) for additional information. Follow-Up Follow up with your Primary Care Provider within 1 week. Follow up with pulmonology within 1-2 weeks. You should see a provider ideally in 10 days, prior to the end of the prednisone taper. You will need to be set up for the pulmonology rehab program before discharged from [facility]. Additional Copies To Anil Rodriguez D.O.
== END 2017-08-12 13:30 | DRG 190 ==
LOC: EDBD 19:13 → C.EDC 19:14 → C.MED 21:02 → ENRESERV 21:25 → OBSVTOIN 08-02 19:10
PROVIDERS: ADMIT Hospitalist; ATTEND Internal Medicine
DX: J44.1 Chronic obstructive pulmonary disease with (acute) exacerbation (principal); J96.20 Acute and chronic respiratory failure, unspecified whether with hypoxia or hypercapnia; I50.32 Chronic diastolic (congestive) heart failure; Z91.138 Patient's unintentional underdosing of medication regimen for other reason; F33.42 Major depressive disorder, recurrent, in full remission; E11.65 Type 2 diabetes mellitus with hyperglycemia; T38.0X5A Adverse effect of glucocorticoids and synthetic analogues, initial encounter; D64.9 Anemia, unspecified; E03.9 Hypothyroidism, unspecified; K21.9 Gastro-esophageal reflux disease without esophagitis; Z79.899 Other long term (current) drug therapy; Z79.01 Long term (current) use of anticoagulants; Z79.52 Long term (current) use of systemic steroids; Z79.84 Long term (current) use of oral hypoglycemic drugs; Z99.81 Dependence on supplemental oxygen; Z86.711 Personal history of pulmonary embolism; Z85.43 Personal history of malignant neoplasm of ovary; Z87.891 Personal history of nicotine dependence

== ENCOUNTER → 2017-09-25 | Outpatient (CLI) | payer OTHER ==
[~2017-09-25] MED LIST changes: +ATR10 PO; +DLC5 PO; +DLR500 PO; -DXY100 PO; +MCM600 PO; -MOME200A INH; +MRLP17 PO; -NERVE PILL PO; +NVLNI SC
[2017-09-25 13:15] LABS: BLOOD UREA NITROGEN 22 mg/dl (7-18); CALCIUM 9.3 mg/dl (8.5-10.1); CARBON DIOXIDE 33 mmol/L (21-32); GLUCOSE 131 mg/dl (70-99); SODIUM 140 mmol/L (136-145)
== END | disposition home or self-care (01) ==
LOC: C.LABSPEC 08:50
PROVIDERS: ATTEND Family Medicine
DX: E11.9 Type 2 diabetes mellitus without complications (principal)

== ENCOUNTER 2017-10-28 16:18 | Inpatient (IN) | payer OTHER ==
[~2017-10-28] VITALS: Ht 160 cm; Wt 88.1 kg
[2017-10-28] MEDS ORDERED: ALBUT/IPRATROP 3MG/0.5MG NEB 3 ML VIAL INH STA (16:54)
[2017-10-28] MEDS ORDERED: AZITHROMYCIN 250 MG TAB PO STA (16:54)
[2017-10-28] MEDS ORDERED: NITROGLYCERIN 0.4 MG SL PER TAB CHARGE SL STA (16:54)
[2017-10-28] MEDS ORDERED: METHYLPREDNISOLONE 125 MG VIAL IV STA (16:54)
[2017-10-28] MEDS ORDERED: SODIUM CHLORIDE 0.9% 500ML 500 ML IV STA ×2 (17:11→19:48)
[2017-10-28 17:31] LABS: HEMATOCRIT 31.3 % (37-47); HEMOGLOBIN 10.1 g/dL (12.0-16.0); MEAN CELL VOLUME 80.3 fL (80-100); MEAN CORPUSCULAR HEMOGLOBIN 25.9 pg (25-34); MEAN CORPUSCULAR HGB CONC 32.3 g/dl (32-36); MEAN PLATELET VOLUME 8.2 fL (7.4-10.4); PLATELET COUNT 356 K/uL (130-400); RED CELL DISTRIBUTION WIDTH CV 16.7 % (11.5-14.5); RED CELL DISTRIBUTION WIDTH SD 48.7 fL (36.4-46.3)
[2017-10-28 17:39] VITALS: PULSE 116; O2SAT 99
[2017-10-28 17:40] LABS: INR 1.3 (0.9-1.1); PTT PATIENT 36.5 SECONDS (21.0-31.0)
[2017-10-28] MEDS ORDERED: OPTIRAY 320 IV PRN (17:45)
[2017-10-28 17:47] LABS: ALBUMIN 2.8 gm/dl (3.4-5.0); CALCIUM 9.5 mg/dl (8.5-10.1); CREATININE 0.84 mg/dl (0.60-1.20); POTASSIUM 3.2 mmol/L (3.5-5.1)
[2017-10-28 17:47] LABS: ISTAT CREATININE 0.8 mg/dl (0.6-1.3); ISTAT IONIZED CALCIUM 1.13 mmol/l (1.12-1.32); ISTAT POTASSIUM 3.1 mEq/L (3.3-5.0)
[2017-10-28 17:52] LABS: TOTAL PROTEIN 7.1 gm/dl (6.4-8.2)
[2017-10-28 18:10] LABS: BASO % 0.5 %; BASO ABS # 0.05 K/uL (0-0.2); EOS % 1.4 %; EOS ABS # 0.15 K/uL (0-0.5); IG# 0.06 K/uL (0.00-0.02); LYMPH % 13.6 %; LYMPH ABS # 1.46 K/uL (1.2-3.4); MONO % 11.6 %; MONO ABS # 1.24 K/uL (0.11-0.59); NEUT % 72.3 %; NEUT ABS # 7.74 K/uL (1.4-6.5)
[2017-10-28] MEDS ORDERED: ESCI1TAB10 PO (18:19)
[2017-10-28] MEDS ORDERED: INSHNI SC (18:19)
[2017-10-28 18:22] LABS: INFLUENZA B ANTIGEN Neg for Influ B (NEG)
[2017-10-28] MEDS ORDERED: ONDANSETRON INJ 2 MG/ML 2 ML VIAL ONE (18:40)
--- NOTE | 2017-10-28 18:42 | DIAGNOSTIC IMAGING REPORT ---
ANGIO ABD/PELVIS WITH CONTRAST CLINICAL HISTORY: Abdominal pain. Nausea. TECHNIQUE: Transaxial acquisition with multi axial reformatted images COMPARISON STUDY: None FINDINGS: Considerable atherosclerotic change of the abdominal aorta as well as pelvic arterial vasculature. No evidence for focal aneurysm or dissection. Moderate multilevel atherosclerotic narrowing of the abdominal and pelvic arterial vasculature. No critical stenosis. Mild fatty infiltration of liver. Pancreas and kidneys are unremarkable. The bowel pattern is considered nonobstructive. Appendix is normal. Mild scattered sigmoid diverticulosis. No evidence for acute diverticulitis. Degenerative change of the lumbar spine. No evidence for compression deformity. IMPRESSION: 1. Considerable atherosclerotic change 2. No evidence for aneurysm or dissection. 3. Nonobstructive bowel pattern. 4. Mild fatty replacement of the liver. The above report was generated using voice recognition software. It may contain grammatical, syntax or spelling errors. Electronically signed by: Simon Cannon M.D. 10/28/2017 6:41 PM Dictated Date/Time: 10/28/2017 6:37 PM
--- NOTE | 2017-10-28 18:47 | DIAGNOSTIC IMAGING REPORT ---
CHEST COMBO ANGIO DISSECTION CLINICAL HISTORY: 72 years-old Female presenting with shortness of breath, severe abdominal pain. TECHNIQUE: Multidetector CT angiography of the chest was performed before and after the administration of intravenous contrast. 3-D volumetric and/or maximum intensity projection (MIP) images were subsequently reconstructed for review. IV contrast: 116 mL of Optiray 320. A dose lowering technique was used consistent with the principles of ALARA (as low as reasonably achievable). Stenosis measurements were based on NASCET-like criteria. COMPARISON: None. CT DOSE (mGy.cm): The estimated cumulative dose is 1670.84. FINDINGS: Sanitarian Aide topogram: Unremarkable. Vasculature: The study is adequate for assessment of the aorta. Precontrast imaging demonstrates no evidence of intramural hematoma. Atherosclerosis of the aorta. Postcontrast imaging demonstrates no evidence of dissection, penetrating ulcer, or aneurysm. Allowing for timing of the contrast bolus, no gross evidence of a filling defect within the pulmonary arteries to suggest embolus. Main pulmonary artery is not enlarged. No flattening of the interventricular septum. No intracardiac filling defect. No reflux of contrast into the hepatic veins. Remaining chest: On soft tissue windows, normal thyroid and thoracic inlet. Multiple subcentimeter prominent mediastinal and bilateral hilar lymph nodes. Normal heart size. Minimal coronary artery calcification. No pericardial or pleural effusion. Hepatic steatosis. On lung windows, moderate apical predominant emphysema. Prominent bulla at the paramediastinal right apex. Dependent bandlike and groundglass opacities likely atelectasis. Central airways patent. On bone windows, degenerative changes of the spine. Mild anterior compression deformity of T4. IMPRESSION: 1. No evidence of acute aortic injury. No acute intrathoracic pathology. 2. Emphysema. 3. Likely reactive subcentimeter mediastinal and bilateral hilar lymph nodes. 4. Compression deformity of T4, age-indeterminate fracture. 5. Hepatic steatosis. Electronically signed by: Callum Avila M.D. 10/28/2017 6:46 PM Dictated Date/Time: 10/28/2017 6:37 PM
--- NOTE | 2017-10-28 19:12 | DIAGNOSTIC IMAGING REPORT ---
KUB CLINICAL HISTORY: ab pain nausea COMPARISON STUDY: No previous studies for comparison. FINDINGS: The soft tissues, psoas shadows, renal outlines and intestinal gas pattern appear normal. There is no evidence for bowel obstruction. No abnormal abdominal calcifications are seen. IMPRESSION: Normal study. The above report was generated using voice recognition software. It may contain grammatical, syntax or spelling errors. Electronically signed by: Simon Cannon M.D. 10/28/2017 7:11 PM Dictated Date/Time: 10/28/2017 7:10 PM
--- NOTE | 2017-10-28 19:14 | DIAGNOSTIC IMAGING REPORT ---
CHEST ONE VIEW PORTABLE CLINICAL HISTORY: EVAL RESP DISTRESS/DYSPNEA COMPARISON STUDY: 08/09/2017 FINDINGS: Bibasilar interstitial infiltrates. Upper lungs are clear. Heart top normal in terms of size. Diaphragms are smooth. IMPRESSION: Mild bibasilar interstitial infiltrative changes. The above report was generated using voice recognition software. It may contain grammatical, syntax or spelling errors. Electronically signed by: Simon Cannon M.D. 10/28/2017 7:12 PM Dictated Date/Time: 10/28/2017 7:12 PM
--- NOTE | 2017-10-28 19:41 | EMERGENCY ROOM VISIT NOTE ---
History Report prepared by Bianka: Raymond Zamudio Under the Supervision of: Dr. Haja Vilchis M.D. First contact with patient: 16:41 Chief Complaint: SHORTNESS OF BREATH Stated Complaint: SOB, AB PAIN Nursing Triage Summary: pt states sob on excertion since thursday. states she does not get sob when sitting or lying down. pt also c/o abdominal pain and diarrahea since thursday. pt hx of copd and chf. 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 History of Present Illness The patient is a 72 year old white female with a past medical history of COPD, CHF, GERD, anxiety, depression, ovarian cancer, meningitis and diabetes who presents to the ED with a cc of worsening shortness of breath beginning two weeks ago. Positive nausea, abdominal pain, and dry cough. Symptoms are worsened with exertion. Also complains of weight gain with leg swelling. States that her ribs feel sore from coughing. Had diarrhea a few days ago. Negative vomiting. Patient on Xarelto. Source of History: patient Onset: Two weeks ago Quality: other (shortness of breath) Timing: worsening Modifying Factors (Worsening): exertion Associated Symptoms: + cough (dry), + nausea, + diarrhea (a few days ago), No vomiting Note: Patient also complains of weight gain with leg swelling, and pain in her ribs with coughing. Review of Systems See HPI for pertinent positives and negatives. A total of ten systems were reviewed and were otherwise negative. Past Medical & Surgical Medical Problems: (1) Acid reflux (2) CHF (congestive heart failure) (3) COPD (chronic obstructive pulmonary disease) (4) COPD exacerbation (5) Diabetes (6) KATHLEEN (generalized anxiety disorder) (7) GERD (gastroesophageal reflux disease) (8) Hypoxia (9) Major depression, recurrent, full remission (10) Meningitis (11) Ovarian ca (12) Ovarian cancer Family History No pertient family history secondary to age Social History Smoking Status: Never Smoker Alcohol Use: none Drug Use: none Marital Status: Housing Status: lives with family Occupation Status: retired Current/Historical Medications Scheduled Arformoterol Tartrate (Brovana), 15 MCG INH BID Budesonide (Pulmicort Respules 0.5MG/2ML), 0.5 MG INH BID Calcium Carbonate-Cholecalcife (Oyster Shell Calcium + D), 1 TAB PO QAM Cholecalciferol (Vitamin D 400 Iu), 400 INTER.UNIT PO QAM Escitalopram Oxalate (Lexapro), 20 MG PO DAILY Fluticasone Propionate (Nasal) (Flonase Allergy Relief), 1 SPRAY NANCY DAILY Insulin Human NPH (Humulin N), 20 UNITS SC QDB Levothyroxine Sodium (Synthroid), 25 MCG PO QAM Meloxicam (Meloxicam), 7.5 MG PO DAILY Metformin Hcl (Glucophage), 1,000 MG PO BID Mirtazapine (Remeron), 45 MG PO HS Montelukast Sodium (Singulair), 10 MG PO HS Multiple Vitamins W/ Iron (Multi Vitamin with Iron), 1 TAB PO QAM Nortriptyline (Pamelor), 10 MG PO HS Potassium Chloride (Klor-Con M20), 20 MEQ PO BID Prednisone (Prednisone), 10 MG PO UD Quetiapine Fumarate (Seroquel), 400 MG PO HS Rivaroxaban (Xarelto), 20 MG PO QAM Roflumilast (Daliresp), 500 MCG PO DAILY Theophylline (Rohit-24), 1 CAP PO QAM Tiotropium [place] (Spiriva Handihaler), 1 CAP INH DAILY Scheduled PRN Albuterol Sulf (Albuterol Sulfate), 2.5 MG INH Q4 PRN for Shortness of Breath Bisacodyl (Bisacodyl EC), 10 MG PO DAILY PRN for Constipation Clonazepam (Clonazepam), 0.5 MG PO Q12H PRN for Anxiety/Agitation Hydroxyzine HCl (Hydroxyzine HCl), 10 MG PO TID PRN for Anxiety Polyethylene (Miralax), 17 GM PO DAILY PRN for Constipation Allergies Coded Allergies: Rabies Vaccine (Verified Allergy, Severe, HIVES, 10/28/17) Ragweed (Verified Allergy, Unknown, UNKNOWN, 10/28/17) Tomato (Verified Allergy, Unknown, HIVES, 10/28/17) Physical Exam Vital Signs Date Time Temp Pulse Resp B/P (MAP) Pulse Ox O2 Delivery O2 Flow Rate FiO2 10/28/17 19:58 103 24 131/71 91 BiPAP 10/28/17 19:01 104 20 139/85 96 BiPAP 10/28/17 18:36 105 18 118/73 98 BiPAP 4.0 10/28/17 17:39 116 99 30 10/28/17 17:03 94 Nasal Cannula 2.0 10/28/17 17:03 94 Nasal Cannula 2.0 10/28/17 16:51 119 10/28/17 16:34 37.3 110 22 142/86 94 Nasal Cannula 2.0 10/28/17 16:34 94 Nasal Cannula 2.0 Physical Exam GENERAL: Awake, alert, well-appearing, NAD HENT: Normocephalic, atraumatic. Nasal canula in place. EYES: Normal conjunctiva. Sclera non-icteric. NECK: Supple. No nuchal rigidity. FROM. RESPIRATORY: Trace expiratory wheezing throughout. Shallow breath sounds. CARDIAC: Tachycardic rate with a regular rhythm, no MRG ABDOMEN: Soft, ND, BS+. Pain out of proportion on abdominal exam. MSK: No chest wall TTP, no LE edema NEURO: GCS 15, CN 2-12 intact, moves all 4s on command SKIN: No rash or jaundice noted. Medical Decision & Procedures ER Provider Diagnostic Interpretation: Radiology results as stated below per my review and radiologist interpretation: KUB FINDINGS: The soft tissues, psoas shadows, renal outlines and intestinal gas pattern appear normal. There is no evidence for bowel obstruction. No abnormal abdominal calcifications are seen. IMPRESSION: Normal study. The above report was generated using voice recognition software. It may contain grammatical, syntax or spelling errors. Electronically signed by: Simon Cannon M.D. 10/28/2017 7:11 PM CHEST ONE VIEW PORTABLE FINDINGS: Bibasilar interstitial infiltrates. Upper lungs are clear. Heart top normal in terms of size. Diaphragms are smooth. IMPRESSION: Mild bibasilar interstitial infiltrative changes. The above report was generated using voice recognition software. It may contain grammatical, syntax or spelling errors. Electronically signed by: Simon Cannon M.D. 10/28/2017 7:12 PM CHEST COMBO ANGIO DISSECTION FINDINGS: [employer] topogram: Unremarkable. Vasculature: The study is adequate for assessment of the aorta. Precontrast imaging demonstrates no evidence of intramural hematoma. Atherosclerosis of the aorta. Postcontrast imaging demonstrates no evidence of dissection, penetrating ulcer, or aneurysm. Allowing for timing of the contrast bolus, no gross evidence of a filling defect within the pulmonary arteries to suggest embolus. Main pulmonary artery is not enlarged. No flattening of the interventricular septum. No intracardiac filling defect. No reflux of contrast into the hepatic veins. Remaining chest: On soft tissue windows, normal thyroid and thoracic inlet. Multiple subcentimeter prominent mediastinal and bilateral hilar lymph nodes. Normal heart size. Minimal coronary artery calcification. No pericardial or pleural effusion. Hepatic steatosis. On lung windows, moderate apical predominant emphysema. Prominent bulla at the paramediastinal right apex. Dependent bandlike and groundglass opacities likely atelectasis. Central airways patent. On bone windows, degenerative changes of the spine. Mild anterior compression deformity of T4. IMPRESSION: 1. No evidence of acute aortic injury. No acute intrathoracic pathology. 2. Emphysema. 3. Likely reactive subcentimeter mediastinal and bilateral hilar lymph nodes. 4. Compression deformity of T4, age-indeterminate fracture. 5. Hepatic steatosis. Electronically signed by: Callum Avila M.D. 10/28/2017 6:46 PM ANGIO ABD/PELVIS WITH CONTRAST FINDINGS: Considerable atherosclerotic change of the abdominal aorta as well as pelvic arterial vasculature. No evidence for focal aneurysm or dissection. Moderate multilevel atherosclerotic narrowing of the abdominal and pelvic arterial vasculature. No critical stenosis. Mild fatty infiltration of liver. Pancreas and kidneys are unremarkable. The bowel pattern is considered nonobstructive. Appendix is normal. Mild scattered sigmoid diverticulosis. No evidence for acute diverticulitis. Degenerative change of the lumbar spine. No evidence for compression deformity. IMPRESSION: 1. Considerable atherosclerotic change 2. No evidence for aneurysm or dissection. 3. Nonobstructive bowel pattern. 4. Mild fatty replacement of the liver. The above report was generated using voice recognition software. It may contain grammatical, syntax or spelling errors. Electronically signed by: Simon Cannon M.D. 10/28/2017 6:41 PM Laboratory Results 10/28/17 17:23 Red Blood Count 3.90, Mean Corpuscular Volume 80.3, Mean Corpuscular Hemoglobin 25.9, Mean Corpuscular Hemoglobin Concent 32.3, Mean Platelet Volume 8.2, Neutrophils (%) (Auto) 72.3, Lymphocytes (%) (Auto) 13.6, Monocytes (%) (Auto) 11.6, Eosinophils (%) (Auto) 1.4, Basophils (%) (Auto) 0.5, Neutrophils # (Auto ) 7.74, Lymphocytes # (Auto) 1.46, Monocytes # (Auto) 1.24, Eosinophils # (Auto ) 0.15, Basophils # (Auto) 0.05 10/28/17 17:23 Test 10/28/17 17:23 10/28/17 17:30 10/28/17 17:35 10/28/17 17:50 White Blood Count 10.70 K/uL (4.8-10.8) Red Blood Count 3.90 M/uL (4.2-5.4) Hemoglobin 10.1 g/dL (12.0-16.0) Hematocrit 31.3 % (37-47) Mean Corpuscular Volume 80.3 fL (80-100) Mean Corpuscular Hemoglobin 25.9 pg (25-34) Mean Corpuscular Hemoglobin Concent 32.3 g/dl (32-36) Platelet Count 356 K/uL (130-400) Mean Platelet Volume 8.2 fL (7.4-10.4) Neutrophils (%) (Auto) 72.3 % Lymphocytes (%) (Auto) 13.6 % Monocytes (%) (Auto) 11.6 % Eosinophils (%) (Auto) 1.4 % Basophils (%) (Auto) 0.5 % Neutrophils # (Auto) 7.74 K/uL (1.4-6.5) Lymphocytes # (Auto) 1.46 K/uL (1.2-3.4) Monocytes # (Auto) 1.24 K/uL (0.11-0.59) Eosinophils # (Auto) 0.15 K/uL (0-0.5) Basophils # (Auto) 0.05 K/uL (0-0.2) RDW Standard Deviation 48.7 fL (36.4-46.3) RDW Coefficient of Variation 16.7 % (11.5-14.5) Immature Granulocyte % (Auto) 0.6 % Immature Granulocyte # (Auto) 0.06 K/uL (0.00-0.02) Red Blood Cell Morphology Unremarkable Prothrombin Time 13.4 SECONDS (9.0-12.0) Prothromb Time International Ratio 1.3 (0.9-1.1) Activated Partial Thromboplast Time 36.5 SECONDS (21.0-31.0) Partial Thromboplastin Ratio 1.4 Venous Blood pH 7.47 (7.36-7.41) Venous Blood Partial Pressure CO2 45 mmHg (38.0-50.0) Venous Blood Partial Pressure O2 48 mmHg Venous Blood HCO3 32 mmol/L Venous Blood Oxygen Saturation 82.7 % Venous Blood Base Excess 7.5 mEq/L Est Creatinine Clear Calc Drug Dose 63.1 ml/min Estimated GFR () 79.9 Estimated GFR (Non- 69.0 BUN/Creatinine Ratio 9.5 (10-20) Calcium Level 9.5 mg/dl (8.5-10.1) Total Bilirubin 0.4 mg/dl (0.2-1) Aspartate Amino Transf (AST/SGOT) 13 U/L (15-37) Alanine Aminotransferase (ALT/SGPT) 38 U/L (12-78) Alkaline Phosphatase 98 U/L (45-117) Pro-B-Type Natriuretic Peptide 150 pg/ml (0-900) Total Protein 7.1 gm/dl (6.4-8.2) Albumin 2.8 gm/dl (3.4-5.0) Globulin 4.3 gm/dl (2.5-4.0) Albumin/Globulin Ratio 0.6 (0.9-2) Bedside Lactic Acid Venous 2.08 mmol/L (0.90-1.70) Bedside Troponin I < 0.030 ng/ml (0-0.045) Influenza Type A Antigen Neg for Influ A (NEG) Influenza Type B Antigen Neg for Influ B (NEG) Bedside Hemoglobin 10.5 g/dl (12.0-16.0) Bedside Hematocrit 31 % (37-47) Bedside Sodium 135 mEq/L (135-144) Bedside Potassium 3.1 mEq/L (3.3-5.0) Bedside Chloride 91 mEq/L (101-112) Bedside Total CO2 31 mEq/l (24-31) Anion Gap 17.0 mmol/L (16-25) Bedside Blood Urea Nitrogen 7 mg/dl (7-18) Bedside Creatinine 0.8 mg/dl (0.6-1.3) Bedside Glucose (other) 177 mg/dl (70-99) Bedside Ionized Calcium (Ly) 1.13 mmol/l (1.12-1.32) Urine Color YELLOW Urine Appearance CLEAR (CLEAR) Urine pH 7.0 (4.5-7.5) Urine Specific [place] 1.008 (1.000-1.030) Urine Protein NEG (NEG) Urine Glucose (UA) NEG (NEG) Urine Ketones NEG (NEG) Urine Occult Blood NEG (NEG) Urine Nitrite NEG (NEG) Urine Bilirubin NEG (NEG) Urine Urobilinogen NEG (NEG) Urine Leukocyte Esterase NEG (NEG) Laboratory results reviewed by me Medications Administered Medications (Trade) Dose Ordered Sig/Lulú Route Start Time Stop Time Status Last Admin Dose Admin Albuterol/ Ipratropium (Duoneb) 3 ml NOW STAT INH 10/28/17 16:54 10/28/17 16:58 DC 10/28/17 17:20 3 ML Azithromycin (Zithromax Tab) 500 mg NOW STAT PO 10/28/17 16:54 10/28/17 16:58 DC 10/28/17 17:20 500 MG Methylprednisolone Sodium Succinate (Solu-Medrol IV) 125 mg NOW STAT IV 10/28/17 16:54 10/28/17 16:58 DC 10/28/17 17:20 125 MG Sodium Chloride 500 ml @ 500 mls/hr Q1H STAT IV 10/28/17 17:11 10/28/17 18:10 DC 10/28/17 17:11 500 MLS/HR Ondansetron HCl (Zofran Inj) 4 mg STK-MED ONCE .ROUTE 10/28/17 18:40 10/28/17 18:41 DC 10/28/17 18:47 4 MG Magnesium Oxide (Mag-Ox Tab) 800 mg BID PO 10/28/17 21:00 11/27/17 20:59 10/28/17 20:47 800 MG Sodium Chloride 500 ml @ 500 mls/hr Q1H STAT IV 10/28/17 19:48 10/28/17 20:47 DC 10/28/17 20:00 500 MLS/HR Potassium Chloride (Klor-Con M10) 40 meq STK-MED ONCE .ROUTE 10/28/17 20:11 10/28/17 20:12 DC 10/28/17 20:13 40 MEQ ECG Per My Interpretation Indication: SOB/dyspnea Rate (beats per minute): 112 Rhythm: sinus tachycardia Findings: PVC, Q waves (lead 3), ST depression (trace, lateral leads), other ( Normal axis. Normal intervals. ) Comparison ECG Date: 08/03/2017 Change: Patient's electrocardiogram interpreted by me. Slight ST depressions are new, though may be related to rate. Q-wave in lead 3 is also new. ED Course 1646: The patient was evaluated in room A12B. A complete history and physical exam was performed. 190: Upon reexamination, the patient was resting comfortably. I discussed the test results and treatment plan with her. The patient will be evaluated for further management. Medical Decision The patient is a 72 year old white female with a past medical history of COPD, CHF, GERD, anxiety, depression, ovarian cancer, meningitis, and diabetes who presents to the ED with a cc of worsening shortness of breath beginning two weeks ago. Differential diagnosis: Etiologies such as infections, reactive airway disease, pneumonia, pneumothorax , COPD, CHF, cardiac ischemia, pulmonary embolism, musculoskeletal, gastrointestinal, as well as others were entertained. Patient was seen and evaluated the bedside. Patient did complain complain of some progressive worsening dyspnea. Patient does feels some mild shortness of breath at rest. Patient does wear 2 L of oxygen at all times. Patient does wear 3 L in the evening. Patient's abdomen is fairly tender and out of proportion to exam. The patient did have blood work completed along with an EKG , troponin, BNP, VBG, lactate, CTA dissection and CTA of the belly. There was a mild concern of something like mesenteric ischemia given the pain out of proportion on exam and a prior history of blood clots. Patient's VBG and lactate were fairly unremarkable. Patient lactate of 2. A bedside ultrasound was performed. Difficult to ascertain the cardiac views except for questionable pericardial effusion. Patient's IVC was fairly collapsible with respiratory inspiration. Given this less likely CHF exacerbation especially as the patient does not have any crackles and does not appear volume overloaded on exam. Patient was treated as a COPD exacerbation. Patient was also placed on BiPAP. After fluids and BiPAP the patient's tachycardia improved. The patient' s CTA of the chest and abdomen were negative acute. Patient's EKG did show sinus tach with some mild depressions in lateral leads. Troponins negative. These were likely rate related. Patient's BNP is not elevated. Patient did have mild hyperkalemia. This was repleted with magnesium and potassium chloride. I did discuss the patient with the hospitalist who agreed to admit the patient for a COPD exacerbation. Medication Reconcilliation Current Medication List: was personally reviewed by me Blood Pressure Screening Patient's blood pressure: Normal blood pressure Blood pressure disposition: Did not require urgent referral Consults Time Called: 1934 Consulting Physician: Dr. Paul Lamb [facility] Hospitalist Returned Call: 1937 Discussed the patient's case. The patient will be evaluated for further treatment and disposition. Impression Primary Impression: COPD exacerbation Additional Impressions: Hypokalemia Anemia Critical Care I have personally spent greater than 45 minutes of critical care time in the direct management of this patient. This includes bedside care, interpretation of diagnostic studies, and testing, discussion with consultants, patient, and family members, and other required patient management activities. This 45 minutes is in excess of all separately billable procedures. Scribe Attestation The scribe's documentation has been prepared under my direction and personally reviewed by me in its entirety. I confirm that the note above accurately reflects all work, treatment, procedures, and medical decision making performed by me. Departure Information Dispostion Being Evaluated By Hospitalist Referrals Anil Rodriguez D.O. (PCP) Patient Instructions My [facility] Problem Qualifiers Additional Impressions: Anemia Anemia type: unspecified type Qualified Codes: D64.9 - Anemia, unspecified
[2017-10-28] MEDS ORDERED: POTASSIUM CHLORIDE 20 MEQ TABCR PO STA (19:48)
[2017-10-28] MEDS ORDERED: POTASSIUM CHLORIDE 10 MEQ TABCR ONE (20:11)
[2017-10-28] MEDS ORDERED: POLYETHYLENE (MIRALAX) 17 GM PACK PO PRN ×2 (21:00→21:15)
[2017-10-28] MEDS ORDERED: LEVALBUTEROL/IPRATROPIUM NEB INH SCH (21:00)
[2017-10-28] MEDS ORDERED: BISACODYL 5 MG TABEC PO PRN (21:00)
[2017-10-28] MEDS ORDERED: hydrOXYzine HCL 10 MG TAB PO PRN (21:00)
[2017-10-28] MEDS ORDERED: MAGNESIUM OXIDE 400 MG TAB PO SCH (21:00)
[2017-10-28] MEDS ORDERED: OSELTAMIVIR PHOSPHATE 75 MG CAP PO SCH (21:00)
[2017-10-28] MEDS ORDERED: GLUCAGON FOR INJ 1 MG VIAL SQ PRN (21:15)
[2017-10-28] MEDS ORDERED: DEXTROSE 50% 50 ML SYR IV PRN (21:15)
[2017-10-28] MEDS ORDERED: GLUCOSE 40% GEL 15 GM TUBE PO PRN (21:15)
[2017-10-28] MEDS ORDERED: ALUMINUM/MAGNESIUM/SIMETH (MAALOX MAX) 30 ML UDC PO PRN (21:15)
[2017-10-28] MEDS ORDERED: GLUCOSE 10 TABS/TUBE PO PRN (21:15)
[2017-10-28] MEDS ORDERED: ONDANSETRON INJ 2 MG/ML 2 ML VIAL IV PRN (21:15)
[2017-10-28] MEDS ORDERED: ACETAMINOPHEN 325 MG TAB PO PRN (21:15)
[2017-10-28] MEDS ORDERED: DC ALL PREVIOUSLY ORDERED DIABETES MEDS ONE (21:15)
[2017-10-28] MEDS ORDERED: ZOLPIDEM TARTRATE 5 MG TAB PO PRN ×2 (21:15)
[2017-10-28] MEDS ORDERED: MAGNESIUM HYDROXIDE SUSP 30 ML UDC PO PRN (21:15)
[2017-10-28] MEDS ORDERED: VANCOMYCIN 1GM/270ML NSS IV STA (21:19)
[2017-10-28] MEDS ORDERED: PHARMACY GLYCEMIC MGMT CONSULT PRN (21:30)
--- NOTE | 2017-10-28 21:32 | History and Physical ---
History & Physical Date & Time of Service: Oct 28, 2017 at 21:11 Chief Complaint: Sob, Ab Pain Primary Care Physician: Anil Rodriguez D.O. History of Present Illness Source: patient, hospital records 72 years old female with past medical history of chronic respiratory failure on 2 L oxygen at home secondary to COPD, also patient had pulmonary embolism on 2015 currently on Xarelto, diastolic CHF last echo was 09/2016 that showed normal EF. Patient stated that she lives in an apartment building and some of her neighbors did have the flu. For the past 3 days she was having fever, diarrhea, upper respiratory tract infection and cough. Her cough was nonproductive accompanied by musculoskeletal pain in her chest wall and her abdomen. Denies any blood in stool but the first 1-2 days of her sickness she had significant diarrhea currently she is not having any diarrhea. Also she had decreased oral intake and generalized weakness. Usually she is on 2 L during the day and 3 L at night of oxygen. She did not attempt to increase her oxygen. Past Medical/Surgical History Medical Problems: (1) Acid reflux Status: Chronic (2) CHF (congestive heart failure) Status: Chronic (3) COPD (chronic obstructive pulmonary disease) Status: Chronic (4) COPD exacerbation Status: Resolved (5) Diabetes Status: Chronic (6) KATHLEEN (generalized anxiety disorder) Status: Chronic (7) GERD (gastroesophageal reflux disease) Status: Chronic (8) Hypoxia Status: Resolved (9) Major depression, recurrent, full remission Status: Chronic (10) Meningitis Status: Resolved (11) Ovarian ca Status: Resolved (12) Ovarian cancer Status: Resolved Family History No pertient family history secondary to age Social History Smoking Status: Never Smoker Drug Use: none Marital Status: Housing status: lives alone Occupational Status: retired Immunizations History of Influenza Vaccine: Yes History of Tetanus Vaccine?: Yes History of Pneumococcal: Yes History of Hepatitis B Vaccine: Unknown Multi-Drug Resistant Organisms History of MDRO: No Allergies Coded Allergies: Rabies Vaccine (Verified Allergy, Severe, HIVES, 10/28/17) Ragweed (Verified Allergy, Unknown, UNKNOWN, 10/28/17) Tomato (Verified Allergy, Unknown, HIVES, 10/28/17) Home Medications Scheduled Arformoterol Tartrate (Brovana), 15 MCG INH BID Budesonide (Pulmicort Respules 0.5MG/2ML), 0.5 MG INH BID Calcium Carbonate-Cholecalcife (Oyster Shell Calcium + D), 1 TAB PO QAM Cholecalciferol (Vitamin D 400 Iu), 400 INTER.UNIT PO QAM Escitalopram Oxalate (Lexapro), 20 MG PO DAILY Fluticasone Propionate (Nasal) (Flonase Allergy Relief), 1 SPRAY NANCY DAILY Insulin Human NPH (Humulin N), 20 UNITS SC QDB Levothyroxine Sodium (Synthroid), 25 MCG PO QAM Meloxicam (Meloxicam), 7.5 MG PO DAILY Metformin Hcl (Glucophage), 1,000 MG PO BID Mirtazapine (Remeron), 45 MG PO HS Montelukast Sodium (Singulair), 10 MG PO HS Multiple Vitamins W/ Iron (Multi Vitamin with Iron), 1 TAB PO QAM Nortriptyline (Pamelor), 10 MG PO HS Potassium Chloride (Klor-Con M20), 20 MEQ PO BID Prednisone (Prednisone), 10 MG PO UD Quetiapine Fumarate (Seroquel), 400 MG PO HS Rivaroxaban (Xarelto), 20 MG PO QAM Roflumilast (Daliresp), 500 MCG PO DAILY Theophylline (Rohit-24), 1 CAP PO QAM Tiotropium [place] (Spiriva Handihaler), 1 CAP INH DAILY Scheduled PRN Albuterol Sulf (Albuterol Sulfate), 2.5 MG INH Q4 PRN for Shortness of Breath Bisacodyl (Bisacodyl EC), 10 MG PO DAILY PRN for Constipation Clonazepam (Clonazepam), 0.5 MG PO Q12H PRN for Anxiety/Agitation Hydroxyzine HCl (Hydroxyzine HCl), 10 MG PO TID PRN for Anxiety Polyethylene (Miralax), 17 GM PO DAILY PRN for Constipation Review of Systems Constitutional: + fever, + chills, + weakness, + fatigue Eyes: No worsening of vision, No eye pain, No redness, No discharge, No diplopia, No problem reported ENT: No hearing loss, No unusual epistaxis, No nasal symptoms, No sore throat, No tinnitus, No dental problems, No trouble swallowing, No problem reported Respiratory: + cough, + wheezing, + shortness of breath, + dyspnea on exertion , + dyspnea at rest, No sputum, No hemoptysis, No problem reported Cardiovascular: No chest pain, No orthopnea, No PND, No edema, No claudication , No palpitations, No problem reported Abdomen: + pain, + nausea, + diarrhea, No vomiting, No constipation, No GI bleeding, No problem reported Musculoskeletal: + joint pain, No muscle pain, No swelling, No calf pain, No problem reported Genitourinary - Female: No dysuria, No urinary frequency, No urinary urgency, No urinary incontinence, No urinary retention, No hematuria, No dysmenorrhea, No menorrhagia, No metrorrhagia, No rash, No vaginal bleeding, No vaginal discharge, No vaginal itching, No vulvodynia, No , No problem reported Neurologic: No memory loss, No paralysis, No weakness, No numbness/tingling, No vertigo, No balance problems, No problem reported Psychiatric: No depression symptoms, No anhedonism, No anxiety, No insomnia, No substance abuse, No problem reported Endocrine: + fatigue, No excessive thirst, No excessive urination, No problem reported Hematologic / Lymphatic: No abnormal bleeding/bruising, No clotting problems, No swollen lymph nodes, No night sweats, No problem reported Integumentary: No rash, No itch, No new/changing skin lesions, No color change , No bleeding, No problem reported Allergic / Immunologic: No environmental allergies, No seasonal allergies, No pet sensitivities, No food allergies, No hives, No frequent infections, No poor healing, No prolonged convalescence, No problem reported Physical Exam Vital Signs Date Time Temp Pulse Resp B/P (MAP) Pulse Ox O2 Delivery O2 Flow Rate FiO2 10/28/17 19:58 103 24 131/71 91 BiPAP 10/28/17 19:01 104 20 139/85 96 BiPAP 10/28/17 18:36 105 18 118/73 98 BiPAP 4.0 10/28/17 17:39 116 99 30 10/28/17 17:03 94 Nasal Cannula 2.0 10/28/17 17:03 94 Nasal Cannula 2.0 10/28/17 16:51 119 10/28/17 16:34 37.3 110 22 142/86 94 Nasal Cannula 2.0 10/28/17 16:34 94 Nasal Cannula 2.0 General Appearance: + mild distress, + obese Head: normocephalic, atraumatic Eyes: normal inspection, EOMI ENT: normal ENT inspection, hearing grossly normal Neck: supple Respiratory/Chest: + respiratory distress, + decreased breath sounds, + accessory muscle use, + crackles, + rales, + rhonchi, + wheezing Cardiovascular: regular rate, rhythm, no edema, no gallop, no JVD, no murmur, normal peripheral pulses Abdomen/GI: normal bowel sounds, soft, no organomegaly, no pulsatile mass, + tenderness Back: normal inspection, no CVA tenderness, no muscle spasm Extremities/Musculoskelatal: normal inspection, no calf tenderness, normal capillary refill, no pedal edema Neurologic/Psych: 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 II-XII nml as tested, no motor/sensory deficits, alert, normal mood/affect, normal reflexes, oriented x 3 Skin: normal color, warm/dry, no rash Diagnostics Laboratory Results Results Past 24 Hours Test 10/28/17 17:23 10/28/17 17:30 10/28/17 17:35 10/28/17 17:50 Range/Units White Blood Count 10.70 4.8-10.8 K/uL Red Blood Count 3.90 4.2-5.4 M/uL Hemoglobin 10.1 12.0-16.0 g/dL Hematocrit 31.3 37-47 % Mean Corpuscular Volume 80.3 80-100 fL Mean Corpuscular Hemoglobin 25.9 25-34 pg Mean Corpuscular Hemoglobin Concent 32.3 32-36 g/dl Platelet Count 356 130-400 K/uL Mean Platelet Volume 8.2 7.4-10.4 fL Neutrophils (%) (Auto) 72.3 % Lymphocytes (%) (Auto) 13.6 % Monocytes (%) (Auto) 11.6 % Eosinophils (%) (Auto) 1.4 % Basophils (%) (Auto) 0.5 % Neutrophils # (Auto) 7.74 1.4-6.5 K/uL Lymphocytes # (Auto) 1.46 1.2-3.4 K/uL Monocytes # (Auto) 1.24 0.11-0.59 K/uL Eosinophils # (Auto) 0.15 0-0.5 K/uL Basophils # (Auto) 0.05 0-0.2 K/uL RDW Standard Deviation 48.7 36.4-46.3 fL RDW Coefficient of Variation 16.7 11.5-14.5 % Immature Granulocyte % (Auto) 0.6 % Immature Granulocyte # (Auto) 0.06 0.00-0.02 K/uL Red Blood Cell Morphology Unremarkable Prothrombin Time 13.4 9.0-12.0 SECONDS Prothromb Time International Ratio 1.3 0.9-1.1 Activated Partial Thromboplast Time 36.5 21.0-31.0 SECONDS Partial Thromboplastin Ratio 1.4 Venous Blood pH 7.47 7.36-7.41 Venous Blood Partial Pressure CO2 45 38.0-50.0 mmHg Venous Blood Partial Pressure O2 48 mmHg Venous Blood HCO3 32 mmol/L Venous Blood Oxygen Saturation 82.7 % Venous Blood Base Excess 7.5 mEq/L Sodium Level 134 136-145 mmol/L Potassium Level 3.2 3.5-5.1 mmol/L Chloride Level 93 98-107 mmol/L Carbon Dioxide Level 31 21-32 mmol/L Anion Gap 10.0 17.0 16-25 mmol/L Blood Urea Nitrogen 8 7-18 mg/dl Creatinine 0.84 0.60-1.20 mg/dl Est Creatinine Clear Calc Drug Dose 63.1 ml/min Estimated GFR () 79.9 Estimated GFR (Non- 69.0 BUN/Creatinine Ratio 9.5 10-20 Random Glucose 172 70-99 mg/dl Calcium Level 9.5 8.5-10.1 mg/dl Total Bilirubin 0.4 0.2-1 mg/dl Aspartate Amino Transf (AST/SGOT) 13 15-37 U/L Alanine Aminotransferase (ALT/SGPT) 38 12-78 U/L Alkaline Phosphatase 98 45-117 U/L Pro-B-Type Natriuretic Peptide 150 0-900 pg/ml Total Protein 7.1 6.4-8.2 gm/dl Albumin 2.8 3.4-5.0 gm/dl Globulin 4.3 2.5-4.0 gm/dl Albumin/Globulin Ratio 0.6 0.9-2 Bedside Lactic Acid Venous 2.08 0.90-1.70 mmol/L Bedside Troponin I < 0.030 0-0.045 ng/ml Influenza Type A Antigen Neg for Influ A NEG Influenza Type B Antigen Neg for Influ B NEG Bedside Hemoglobin 10.5 12.0-16.0 g/dl Bedside Hematocrit 31 37-47 % Bedside Sodium 135 135-144 mEq/L Bedside Potassium 3.1 3.3-5.0 mEq/L Bedside Chloride 91 101-112 mEq/L Bedside Total CO2 31 24-31 mEq/l Bedside Blood Urea Nitrogen 7 7-18 mg/dl Bedside Creatinine 0.8 0.6-1.3 mg/dl Bedside Glucose (other) 177 70-99 mg/dl Bedside Ionized Calcium (Ly) 1.13 1.12-1.32 mmol/l Urine Color YELLOW Urine Appearance CLEAR CLEAR Urine pH 7.0 4.5-7.5 Urine Specific [place] 1.008 1.000-1.030 Urine Protein NEG NEG Urine Glucose (UA) NEG NEG Urine Ketones NEG NEG Urine Occult Blood NEG NEG Urine Nitrite NEG NEG Urine Bilirubin NEG NEG Urine Urobilinogen NEG NEG Urine Leukocyte Esterase NEG NEG Impression Assessment and Plan 72 years old female with past medical history of chronic respiratory failure on 2 L oxygen at home secondary to COPD, also patient had pulmonary embolism on 2015 currently on Xarelto, diastolic CHF last echo was 09/2016 that showed normal EF. Presented to the hospital with shortness of breath/wheezing/fever/chills/ diarrhea Assessment: Acute on chronic hypoxic respiratory failure COPD exacerbation Upper respiratory tract infection symptoms suggestive of influenza as smaller block was carried infection. Bilateral basal pneumonia Chronic respiratory failure multifactorial, COPD, obesity hypoventilation syndrome, likely obstructive sleep apnea COPD exacerbation diastolic congestive heart failure, magazines not in exacerbation from a first marriage earlier Diabetes mellitus type 2 insulin requiring History of pulmonary embolism on Xarelto Aruna Plan Admit patient to telemetry Oxygen supplement as per protocol /BiPAP Blood culture/sputum culture Influenza virus screen and PCR Urine legionella antigen Initiate broad-spectrum antibiotics covering typical and atypical microorganisms , Vanco/azithromycin/ceftriaxone Start patient on lactobacillus to prevent C. difficile Continue home medications Sliding scale insulin, pharmacy consult to adjust insulin as patient was on unusual regimen at home, NPH once a day IV fluid hydration as needed Monitor labs in a.m. Bronchodilators Monitor oxygen saturation DVT prophylaxis / Continue Xarelto VTE Prophylaxis VTE Risk Assessment Done? Y/N: Yes Risk Level: Moderate
[2017-10-28] MEDS ORDERED: VANCOMYCIN INJ 2,250 MG in SODIUM CHLORIDE 0.9% 500ML 500 ML IV STA (21:38)
[2017-10-28] MEDS ORDERED: VANCOMYCIN CONSULT ACTIVE PRN (21:45)
[2017-10-28] MEDS ORDERED: NITROGLYCERIN 0.4 MG SL PER TAB CHARGE ONE (21:52)
[2017-10-28 23:05] LABS: INFLUENZA A PCR Neg for Influ A (NEG); INFLUENZA B PCR Neg for Influ B (NEG)
[2017-10-28 23:40] VITALS: PULSE 98; O2SAT 97
[2017-10-29] VITALS (11 sets, daily range): BP systolic 99–142; BP diastolic 58–90; PULSE 67–119; TEMP 36.5–37.1; O2SAT 93–98; BMI 34.1
[2017-10-29] MEDS: QUETIAPINE FUMARATE 200 MG TAB PO SCH ×2 (00:38→21:28)
[2017-10-29] MEDS: MONTELUKAST SOD 10 MG TAB PO SCH ×2 (00:41→21:27)
[2017-10-29] MEDS: POTASSIUM CHLORIDE 20 MEQ TABCR PO SCH ×3 (00:41→21:28)
[2017-10-29] MEDS: NORTRIPTYLINE HCL 10 MG CAP PO SCH ×2 (00:42→21:28)
[2017-10-29] MEDS: SODIUM CHLORIDE 0.9% 1000ML 1,000 ML IV SCH (00:44)
[2017-10-29] MEDS: INSULIN ASPART 100 UNITS/ML 3 ML PEN SC SCH ×5 (00:51→21:36)
[2017-10-29] MEDS: METHYLPREDNISOLONE IV 60 MG in SYRINGE 0 ML IV SCH ×5 (00:51→23:41)
[2017-10-29] MEDS ORDERED: NITROGLYCERIN 0.4 MG SL PER TAB CHARGE ONE (00:55)
[2017-10-29] MEDS: CEFTRIAXONE SOD INJ 1 GM in DEXTROSE 5% ADD-VANTAGE 50ML 50 ML IV SCH ×2 (01:58→23:41)
[2017-10-29] MEDS: LEVALBUTEROL 1.25MG/0.5ML NEB INH SCH ×4 (02:02→19:06)
[2017-10-29] MEDS: IPRATROPIUM BROMIDE NEB SOLN 0.02% 2.5 ML VIAL INH SCH ×4 (02:02→19:06)
[2017-10-29] MEDS ORDERED: INSULIN ASPART 100 UNITS/ML 3 ML PEN SC SCH (04:00)
[2017-10-29] MEDS: LEVOTHYROXINE 25 MCG TAB PO SCH (06:16)
[2017-10-29] MEDS: BUDESONIDE 0.5 MG/2 ML VIAL (PULMICORT) INH SCH ×2 (07:39→19:06)
[2017-10-29] MEDS: ARFORMOTEROL TART 15MCG/2ML VIAL INH SCH ×2 (07:39→19:06)
[2017-10-29 07:43] LABS: CREATININE 0.86 mg/dl (0.60-1.20)
[2017-10-29 08:41] LABS: HEMOGLOBIN A1C 8.8 % (4.5-5.6)
[2017-10-29] MEDS: LACTOBACILLUS ACIDOPHILUS (FLORANEX) TAB PO SCH ×3 (08:57→17:30)
[2017-10-29] MEDS: ESCITALOPRAM OXALATE 20 MG TAB PO SCH (08:58)
[2017-10-29] MEDS: ROFLUMILAST 500 MCG TAB PO SCH (08:58)
--- NOTE | 2017-10-29 08:58 | Pharmacy Progress Note ---
Pharmacy Antibiotic Consult Date of Service: Oct 29, 2017. Pharmacy Dosing Scope Pharmacy is consulted to initiate vancomycin IV dosing therapy, order appropriate labs and adjust drug dose/frequency. Subjective The patient is a 72 year old female admitted on Oct 28, 2017 at 21:09. Objective Height (Feet): 5 Height (Inches): 3 Weight (Kilograms): 87.200 Lab Results (24hrs): Test 10/28/17 17:23 10/28/17 17:30 10/28/17 17:35 10/28/17 17:50 White Blood Count 10.70 K/uL (4.8-10.8) Red Blood Count 3.90 M/uL (4.2-5.4) Hemoglobin 10.1 g/dL (12.0-16.0) Hematocrit 31.3 % (37-47) Mean Corpuscular Volume 80.3 fL (80-100) Mean Corpuscular Hemoglobin 25.9 pg (25-34) Mean Corpuscular Hemoglobin Concent 32.3 g/dl (32-36) Platelet Count 356 K/uL (130-400) Mean Platelet Volume 8.2 fL (7.4-10.4) Neutrophils (%) (Auto) 72.3 % Lymphocytes (%) (Auto) 13.6 % Monocytes (%) (Auto) 11.6 % Eosinophils (%) (Auto) 1.4 % Basophils (%) (Auto) 0.5 % Neutrophils # (Auto) 7.74 K/uL (1.4-6.5) Lymphocytes # (Auto) 1.46 K/uL (1.2-3.4) Monocytes # (Auto) 1.24 K/uL (0.11-0.59) Eosinophils # (Auto) 0.15 K/uL (0-0.5) Basophils # (Auto) 0.05 K/uL (0-0.2) RDW Standard Deviation 48.7 fL (36.4-46.3) RDW Coefficient of Variation 16.7 % (11.5-14.5) Immature Granulocyte % (Auto) 0.6 % Immature Granulocyte # (Auto) 0.06 K/uL (0.00-0.02) Red Blood Cell Morphology Unremarkable Prothrombin Time 13.4 SECONDS (9.0-12.0) Prothromb Time International Ratio 1.3 (0.9-1.1) Activated Partial Thromboplast Time 36.5 SECONDS (21.0-31.0) Partial Thromboplastin Ratio 1.4 Venous Blood pH 7.47 (7.36-7.41) Venous Blood Partial Pressure CO2 45 mmHg (38.0-50.0) Venous Blood Partial Pressure O2 48 mmHg Venous Blood HCO3 32 mmol/L Venous Blood Oxygen Saturation 82.7 % Venous Blood Base Excess 7.5 mEq/L Sodium Level 134 mmol/L (136-145) Potassium Level 3.2 mmol/L (3.5-5.1) Chloride Level 93 mmol/L (98-107) Carbon Dioxide Level 31 mmol/L (21-32) Anion Gap 10.0 mmol/L (3-11) 17.0 mmol/L (16-25) Blood Urea Nitrogen 8 mg/dl (7-18) Creatinine 0.84 mg/dl (0.60-1.20) Est Creatinine Clear Calc Drug Dose 63.1 ml/min Estimated GFR () 79.9 Estimated GFR (Non- 69.0 BUN/Creatinine Ratio 9.5 (10-20) Random Glucose 172 mg/dl (70-99) Calcium Level 9.5 mg/dl (8.5-10.1) Total Bilirubin 0.4 mg/dl (0.2-1) Aspartate Amino Transf (AST/SGOT) 13 U/L (15-37) Alanine Aminotransferase (ALT/SGPT) 38 U/L (12-78) Alkaline Phosphatase 98 U/L (45-117) Pro-B-Type Natriuretic Peptide 150 pg/ml (0-900) Total Protein 7.1 gm/dl (6.4-8.2) Albumin 2.8 gm/dl (3.4-5.0) Globulin 4.3 gm/dl (2.5-4.0) Albumin/Globulin Ratio 0.6 (0.9-2) Bedside Lactic Acid Venous 2.08 mmol/L (0.90-1.70) Bedside Troponin I < 0.030 ng/ml (0-0.045) Influenza Type A (RT-PCR) Neg for Influ A (NEG) Influenza Type A Antigen Neg for Influ A (NEG) Influenza Type B Antigen Neg for Influ B (NEG) Influenza Type B (RT-PCR) Neg for Influ B (NEG) Bedside Hemoglobin 10.5 g/dl (12.0-16.0) Bedside Hematocrit 31 % (37-47) Bedside Sodium 135 mEq/L (135-144) Bedside Potassium 3.1 mEq/L (3.3-5.0) Bedside Chloride 91 mEq/L (101-112) Bedside Total CO2 31 mEq/l (24-31) Bedside Blood Urea Nitrogen 7 mg/dl (7-18) Bedside Creatinine 0.8 mg/dl (0.6-1.3) Bedside Glucose (other) 177 mg/dl (70-99) Bedside Ionized Calcium (Ly) 1.13 mmol/l (1.12-1.32) Urine Color YELLOW Urine Appearance CLEAR (CLEAR) Urine pH 7.0 (4.5-7.5) Urine Specific [place] 1.008 (1.000-1.030) Urine Protein NEG (NEG) Urine Glucose (UA) NEG (NEG) Urine Ketones NEG (NEG) Urine Occult Blood NEG (NEG) Urine Nitrite NEG (NEG) Urine Bilirubin NEG (NEG) Urine Urobilinogen NEG (NEG) Urine Leukocyte Esterase NEG (NEG) Test 10/29/17 04:00 10/29/17 07:04 10/29/17 07:37 Bedside Glucose 263 mg/dl (70-90) 268 mg/dl (70-90) Creatinine 0.86 mg/dl (0.60-1.20) Est Creatinine Clear Calc Drug Dose 61.0 ml/min Estimated GFR () 77.7 Estimated GFR (Non- 67.0 Estimated Average Glucose 206 mg/dl Hemoglobin A1c 8.8 % (4.5-5.6) Micro Results: Date/Time Source Procedure Growth Status 10/28/17 21:41 Blood Blood Culture Pending Received 10/28/17 21:35 Blood Blood Culture Pending Received Assessment & Plan Assessment: * 72 yo F w/ PMH chronic resp. failure on 2L oxygen at home secondary to COPD, pulmonary empbolism, diastolic CHF * 3 day hx of fever, diarrhea, URI and cough (nonproductive) * Starting empiric pneumonia coverage vancomycin/azithromycin/rocephin * Afebrile, normal white count, CXR: "Mild bibasilar interstitial infiltrative changes", increased oxygen use from baseline * Nasal MRSA Swab pending Plan: Patient received 2250 mg (25 mg/kg) loading dose on 10/28 Will begin maintenance dose of 1000 mg q14H Population based pk: SCr 0.86, CrCl 61 (age max 77), Vdf 0.6, ke 0.055, T1/2 ~13 hours Goal trough level estimate: between 15-20 mcg/mL. Trough has been ordered for 10/31 @ 8315 Pharmacy will continue to follow and will adjust dose/frequency as necessary. Thank you
[2017-10-29] MEDS: RIVAROXABAN 10 MG TAB PO SCH (08:59)
[2017-10-29] MEDS: CHOLECALCIFEROL 400 INTER.UNIT TAB PO SCH (08:59)
[2017-10-29] MEDS: TIOTROPIUM BROMIDE 5 PUFF/90 MCG INH INH SCH (09:00)
[2017-10-29] MEDS: FLUTICASONE PROPIONATE NA SPR 16 GM BTL NAE SCH (09:01)
--- NOTE | 2017-10-29 09:07 | Hospitalist Progress Note ---
Hospitalist Progress Note Date of Service Oct 29, 2017. (Subha Olson PA-C) Subjective Pt evaluation today including: conversation w/ patient, physical exam, chart review, lab review, review of studies Pain: None PO Intake: Good Voiding: no voiding problems The patient was seen and examined this morning. Pt reports doing well today. She notes her breathing feels slightly improved. She is coughing occasionally but denies sputum production. Pt notes being slightly nauseous but was able to tolerate breakfast. She has been ambulating to the bathroom but does feels slightly short of breath with ambulation. She has been wearing normal home O2 of 2 L during the day and 3L at night. She denies any chest pain, palpitations, flutter or chest tightness. ROS: 6 point ROS reviewed and negative otherwise. (Subha Olson PA-C) Objective Vital Signs Date Time Temp Pulse Resp B/P (MAP) Pulse Ox O2 Delivery O2 Flow Rate FiO2 10/29/17 08:40 Nasal Cannula 3.0 10/29/17 07:44 37.1 69 18 110/69 (83) 96 BiPAP 30 10/29/17 07:40 67 94 30 10/29/17 07:40 67 20 94 BiPAP/CPAP 30 10/29/17 04:00 BiPAP 30 10/29/17 02:02 102 20 93 BiPAP/CPAP 10/29/17 02:02 102 93 30 10/29/17 01:35 37.1 98 24 108/69 98 Non-Rebreather 15.0 10/29/17 00:00 BiPAP 10/28/17 23:40 98 97 30 10/28/17 23:33 37.3 94 22 125/74 93 10/28/17 22:35 94 22 125/74 93 BiPAP 10/28/17 21:49 10 22 120/83 95 BiPAP 10/28/17 21:12 101 10/28/17 21:00 37.3 103 24 130/73 96 BiPAP 4.0 30 10/28/17 19:58 103 24 131/71 91 BiPAP 10/28/17 19:01 104 20 139/85 96 BiPAP 10/28/17 18:36 105 18 118/73 98 BiPAP 4.0 10/28/17 17:39 116 99 30 10/28/17 17:03 94 Nasal Cannula 2.0 10/28/17 17:03 94 Nasal Cannula 2.0 10/28/17 16:51 119 10/28/17 16:34 37.3 110 22 142/86 94 Nasal Cannula 2.0 10/28/17 16:34 94 Nasal Cannula 2.0 (Subha Olson PA-C) Physical Exam General Appearance: WD/WN, no apparent distress, + obese Eyes: PERRL, EOMI ENT: hearing grossly normal, pharynx normal, + pertinent finding (MMM) Neck: supple, no JVD Respiratory/Chest: no respiratory distress, no accessory muscle use, + pertinent finding (on 2 L via NC, diminished breath sounds throughout but no wheezes, rales or rhonchi) Cardiovascular: regular rate, rhythm, no JVD Abdomen: normal bowel sounds, non tender, soft Extremities: non-tender, no pedal edema, no calf tenderness, + pertinent finding (faint ecchymotic region over the right ant tibia healing) Neurologic/Psychiatric: no motor/sensory deficits, alert, normal mood/affect, oriented x 3 Skin: normal color, warm/dry (Subha Olson PA-C) Laboratory Results Last 24 Hours Test 10/28/17 17:23 10/28/17 17:30 10/28/17 17:35 10/28/17 17:50 White Blood Count 10.70 K/uL Red Blood Count 3.90 M/uL Hemoglobin 10.1 g/dL Hematocrit 31.3 % Mean Corpuscular Volume 80.3 fL Mean Corpuscular Hemoglobin 25.9 pg Mean Corpuscular Hemoglobin Concent 32.3 g/dl Platelet Count 356 K/uL Mean Platelet Volume 8.2 fL Neutrophils (%) (Auto) 72.3 % Lymphocytes (%) (Auto) 13.6 % Monocytes (%) (Auto) 11.6 % Eosinophils (%) (Auto) 1.4 % Basophils (%) (Auto) 0.5 % Neutrophils # (Auto) 7.74 K/uL Lymphocytes # (Auto) 1.46 K/uL Monocytes # (Auto) 1.24 K/uL Eosinophils # (Auto) 0.15 K/uL Basophils # (Auto) 0.05 K/uL RDW Standard Deviation 48.7 fL RDW Coefficient of Variation 16.7 % Immature Granulocyte % (Auto) 0.6 % Immature Granulocyte # (Auto) 0.06 K/uL Red Blood Cell Morphology Unremarkable Prothrombin Time 13.4 SECONDS Prothromb Time International Ratio 1.3 Activated Partial Thromboplast Time 36.5 SECONDS Partial Thromboplastin Ratio 1.4 Venous Blood pH 7.47 Venous Blood Partial Pressure CO2 45 mmHg Venous Blood Partial Pressure O2 48 mmHg Venous Blood HCO3 32 mmol/L Venous Blood Oxygen Saturation 82.7 % Venous Blood Base Excess 7.5 mEq/L Sodium Level 134 mmol/L Potassium Level 3.2 mmol/L Chloride Level 93 mmol/L Carbon Dioxide Level 31 mmol/L Anion Gap 10.0 mmol/L 17.0 mmol/L Blood Urea Nitrogen 8 mg/dl Creatinine 0.84 mg/dl Est Creatinine Clear Calc Drug Dose 63.1 ml/min Estimated GFR () 79.9 Estimated GFR (Non- 69.0 BUN/Creatinine Ratio 9.5 Random Glucose 172 mg/dl Calcium Level 9.5 mg/dl Total Bilirubin 0.4 mg/dl Aspartate Amino Transf (AST/SGOT) 13 U/L Alanine Aminotransferase (ALT/SGPT) 38 U/L Alkaline Phosphatase 98 U/L Pro-B-Type Natriuretic Peptide 150 pg/ml Total Protein 7.1 gm/dl Albumin 2.8 gm/dl Globulin 4.3 gm/dl Albumin/Globulin Ratio 0.6 Bedside Lactic Acid Venous 2.08 mmol/L Bedside Troponin I < 0.030 ng/ml Influenza Type A (RT-PCR) Neg for Influ A Influenza Type A Antigen Neg for Influ A Influenza Type B Antigen Neg for Influ B Influenza Type B (RT-PCR) Neg for Influ B Bedside Hemoglobin 10.5 g/dl Bedside Hematocrit 31 % Bedside Sodium 135 mEq/L Bedside Potassium 3.1 mEq/L Bedside Chloride 91 mEq/L Bedside Total CO2 31 mEq/l Bedside Blood Urea Nitrogen 7 mg/dl Bedside Creatinine 0.8 mg/dl Bedside Glucose (other) 177 mg/dl Bedside Ionized Calcium (Ly) 1.13 mmol/l Urine Color YELLOW Urine Appearance CLEAR Urine pH 7.0 Urine Specific [place] 1.008 Urine Protein NEG Urine Glucose (UA) NEG Urine Ketones NEG Urine Occult Blood NEG Urine Nitrite NEG Urine Bilirubin NEG Urine Urobilinogen NEG Urine Leukocyte Esterase NEG Test 10/29/17 00:34 10/29/17 04:00 10/29/17 07:04 10/29/17 07:37 Bedside Glucose 297 mg/dl 263 mg/dl 268 mg/dl Creatinine 0.86 mg/dl Est Creatinine Clear Calc Drug Dose 61.0 ml/min Estimated GFR () 77.7 Estimated GFR (Non- 67.0 Estimated Average Glucose 206 mg/dl Hemoglobin A1c 8.8 % (Subha Olson, CYNDI) Assessment and Plan 72 years old female with past medical history of chronic respiratory failure on 2 L oxygen at home secondary to COPD, also patient had pulmonary embolism on 2015 currently on Xarelto, diastolic CHF last echo was 09/2016 that showed normal EF. Presented to the hospital with shortness of breath/wheezing/fever/chills/ diarrhea Acute on chronic hypoxic respiratory failure COPD exacerbation Upper respiratory tract infection symptoms suggestive of influenza as smaller block was carried infection. obesity hypoventilation syndrome VIJAY - Oxygen supplement as per protocol /BiPAP, Solumedrol 60 mg Q6H IV, ventolin nebs prn, spiriva inh, pulmicort, daliresp - Continue Vanco/azithromycin/ceftriaxone (initiated 10/28) - had previously been on azithromycin 250 MWF for antiinflammatory properties but reports not taking this after the 1 month supply was given from previous hospitalization in Jul 2017. - Follow BCx/sputum culture - Influenza negative - Follow Urine legionella antigen - Start patient on lactobacillus to prevent C. difficile Diastolic congestive heart failure - stable at this time Diabetes mellitus type 2 insulin requiring - A1C = 8.8 - Sliding scale insulin, pharmacy consult to adjust insulin as patient was on unusual regimen at home, NPH once a day History of pulmonary embolism - cont on Xarelto Hypothyroidism - Cont levothyroxine Vit D Deficiency - Cont supplementation DVT ppx: Continue Xarelto Disposition: From home, lives alone. PT/OT evals, discharge possible in ~2 days. (Subha Olson PA-C) LOLA Physician Supervision Note: I interviewed and examined the patient. Discussed with Subha Olson PAC and agree with findings and plan as documented in the note. Any exceptions or clarifications are listed here: None Patient is improved somewhat but still very dyspneic speaking in broken sentences due to her shortness of breath she says over last 2 days she's increasing cough rectum of sputum Vital signs are stable exception of some tachypnea Lungs show decreased breath sounds bilaterally focal X story wheezes in both lungs especially towards the apices COPD exacerbation requiring intravenous steroids frequent nebulized medications , continue vancomycin and ceftriaxone and azithromycin consider pulmonary evaluation Documented By: Clem Cam (Clem Cam M.D.)
[2017-10-29] MEDS ORDERED: INSULIN GLARGINE SOLOSTAR 100 UNITS/ML 3 ML PEN SC ONE (10:00)
[2017-10-29] MEDS ORDERED: COUGH DROP (SUGAR FREE) LOZ 24 LOZ/1 BOX LOZ ONE (11:27)
[2017-10-29] MEDS: VANCOMYCIN INJ 1,000 MG in SODIUM CHLORIDE 0.9% 250ML 250 ML IV SCH (12:02)
[2017-10-29] MEDS: ALBUTEROL 0.083% NEBU SOLN 3 ML VIAL INH PRN (12:16)
--- NOTE | 2017-10-29 12:54 | Pharmacy Progress Note ---
Glycemic Control Intl Consult Date of Service Oct 29, 2017. Scope Glycemic Pharmacist consulted by Dr Sparkle Shepherd on 10/29/17 for glycemic control and to write orders per [facility] inpatient glycemic control protocol Objective Weight (Kilograms): 87.200 Accuchecks BSG (last 24hrs): Test 10/28/17 17:23 10/29/17 00:34 10/29/17 04:00 10/29/17 07:37 Random Glucose 172 mg/dl (70-99) Bedside Glucose 297 mg/dl (70-90) 263 mg/dl (70-90) 268 mg/dl (70-90) Test 10/29/17 11:24 Bedside Glucose 256 mg/dl (70-90) Laboratory Data (last 24hrs) Test 10/28/17 17:23 10/28/17 17:35 10/29/17 07:04 Anion Gap 10.0 mmol/L 17.0 mmol/L BUN/Creatinine Ratio 9.5 Blood Urea Nitrogen 8 mg/dl Creatinine 0.84 mg/dl 0.86 mg/dl Potassium Level 3.2 mmol/L Sodium Level 134 mmol/L White Blood Count 10.70 K/uL Red Blood Count 3.90 M/uL Hemoglobin 10.1 g/dL Hematocrit 31.3 % Mean Corpuscular Volume 80.3 fL Mean Corpuscular Hemoglobin 25.9 pg Mean Corpuscular Hemoglobin Concent 32.3 g/dl Platelet Count 356 K/uL Mean Platelet Volume 8.2 fL Neutrophils (%) (Auto) 72.3 % Lymphocytes (%) (Auto) 13.6 % Monocytes (%) (Auto) 11.6 % Eosinophils (%) (Auto) 1.4 % Basophils (%) (Auto) 0.5 % Neutrophils # (Auto) 7.74 K/uL Lymphocytes # (Auto) 1.46 K/uL Monocytes # (Auto) 1.24 K/uL Eosinophils # (Auto) 0.15 K/uL Basophils # (Auto) 0.05 K/uL Hemoglobin A1c 8.8 % HbA1c Test 10/29/17 07:04 Hemoglobin A1c 8.8 % (4.5-5.6) H Recent Pertinent Medications Outpatient Anti-diabetic Regimen: * NPH 20 units qAM * Metformin 1 gm BID The patient is currently receiving: * Basal insulin: None ordered this AM * Correctional Insulin: Novolog Correction per scale ACHS Goal Range: Low 120 mg/dL - High 140 mg/dL Correction Factor: 15 mg/dL/unit * Prandial insulin: Per carb ratio of 1 unit per 5 grams CHO consumed * Oral Agents: None at this time Risk Factors for Insulin Resistance: * Steroids: Solu-medrol 125 mg IV x 1 last night, currently on 60 mg IV q6h * Diet: type 2 diabetes Assessment & Plan ASSESSMENT: * 72 y/o female admitted for acute respiratory failure, currently on high dose steroids * Her A1c indicates decent outpatient control on NPH and metformin, but could certainly be improved * BSGs since admission have been elevated secondary to the steroids * Will plan to utilize basal/bolus insulin in the form of Lantus and Novolog for now since her steroids are ATC * When/if switched to once daily prednisone, could go back to NPH dosing * Initial plan using patient's weight/stress level of 2/3 since this is higher than outpatient regimen. Current CF/CR already fairly aggressive but I think she'll need this until BSGs improve. PLAN FOR INPATIENT GLYCEMIC CONTROL: * Holding outpatient oral diabetes medications * Basal insulin with LANTUS 25 units x 1 this AM, then 15 units SQ BID (22 units BID if BSG > 180) * Correctional Insulin with NOVOLOG per scale ACHS or Q6hrs while NPO * Goal Range: Low 120 mg/dL - High 140 mg/dL * Correction Factor: TIGHTEN to 10 mg/dL/unit until basal insulin on board, then back to 15 mg/dL/unit at HS tonight * Nutritional / Prandial insulin per carb ratio of 1 unit per 5 grams CHO consumed * Please note that the plan above was derived based on current level of insulin resistance and hospital stress. These recommendations are appropriate for inpatient admission only. Plan of care upon discharge will need to be reassessed to avoid potential outpatient hypo/hyperglycemia. Thank you.
[2017-10-29] MEDS: AZITHROMYCIN IV 500 MG in DEXTROSE 5% 250ML 250 ML IV SCH (17:34)
[2017-10-29] MEDS: INSULIN GLARGINE SOLOSTAR 100 UNITS/ML 3 ML PEN SC SCH (21:37)
[2017-10-30] VITALS (11 sets, daily range): BP systolic 125–154; BP diastolic 68–77; PULSE 74–107; TEMP 36.6–37; O2SAT 92–98; Ht 160 cm; Wt 88.1 kg
[2017-10-30] MEDS: INSULIN ASPART 100 UNITS/ML 3 ML PEN SC SCH ×6 (00:03→21:15)
[2017-10-30] MEDS: VANCOMYCIN INJ 1,000 MG in SODIUM CHLORIDE 0.9% 250ML 250 ML IV SCH (01:59)
[2017-10-30] MEDS: IPRATROPIUM BROMIDE NEB SOLN 0.02% 2.5 ML VIAL INH SCH ×4 (02:08→19:00)
[2017-10-30] MEDS: LEVALBUTEROL 1.25MG/0.5ML NEB INH SCH ×4 (02:08→19:00)
[2017-10-30] MEDS: LEVOTHYROXINE 25 MCG TAB PO SCH (05:48)
[2017-10-30] MEDS: METHYLPREDNISOLONE IV 60 MG in SYRINGE 0 ML IV SCH ×4 (05:48→18:00)
[2017-10-30 06:23] LABS: CREATININE 0.86 mg/dl (0.60-1.20)
[2017-10-30] MEDS: ARFORMOTEROL TART 15MCG/2ML VIAL INH SCH ×2 (07:22→19:02)
[2017-10-30] MEDS: BUDESONIDE 0.5 MG/2 ML VIAL (PULMICORT) INH SCH ×2 (07:22→19:00)
[2017-10-30] MEDS: SODIUM CHLORIDE 0.9% 1000ML 1,000 ML IV SCH ×2 (08:02→16:43)
[2017-10-30] MEDS: TIOTROPIUM BROMIDE 5 PUFF/90 MCG INH INH SCH (08:04)
[2017-10-30] MEDS: LACTOBACILLUS ACIDOPHILUS (FLORANEX) TAB PO SCH ×3 (08:04→16:43)
[2017-10-30] MEDS: RIVAROXABAN 10 MG TAB PO SCH (08:05)
[2017-10-30] MEDS: CHOLECALCIFEROL 400 INTER.UNIT TAB PO SCH (08:05)
[2017-10-30] MEDS: POTASSIUM CHLORIDE 20 MEQ TABCR PO SCH ×2 (08:06→21:17)
[2017-10-30] MEDS: ROFLUMILAST 500 MCG TAB PO SCH (08:06)
[2017-10-30] MEDS: FLUTICASONE PROPIONATE NA SPR 16 GM BTL NAE SCH (08:06)
[2017-10-30] MEDS: ESCITALOPRAM OXALATE 20 MG TAB PO SCH (08:06)
[2017-10-30] MEDS: INSULIN GLARGINE SOLOSTAR 100 UNITS/ML 3 ML PEN SC SCH ×2 (08:21→21:16)
[2017-10-30] MEDS ORDERED: INSULIN GLARGINE SOLOSTAR 100 UNITS/ML 3 ML PEN SC ONE (09:00)
[2017-10-30] MEDS: ALBUTEROL 0.083% NEBU SOLN 3 ML VIAL INH PRN (10:24)
--- NOTE | 2017-10-30 12:22 | Hospitalist Progress Note ---
Hospitalist Progress Note Date of Service Oct 30, 2017. (Subha Olson PA-C) Subjective Pt evaluation today including: conversation w/ patient, physical exam, chart review, lab review, review of studies Pain: None PO Intake: Good Voiding: no voiding problems The patient was seen and examined this morning. Patient reports feeling better today compared to last evening. The patient reports that she had an episode of increased shortness of breath and chest tightness, where she received a nebulizer and this resolved last evening. She does have some anxiety at baseline which seems to worsen exacerbations. Patient feels her breathing is currently tight, and that she is wheezing and is requesting a respiratory treatment. She denies any fevers, sweats or chills although she is having some hot flashes at night. She has been ambulating to the restroom and feels slightly short of breath. ROS: Constitutional: No fever, sweats or chills Eyes: No diplopia, no worsening or blurred vision ENT: normal hearing, no trouble swallowing Respiratory: See HPI above. Cardiovascular: No chest pain, tightness or palpitations Abdomen: No pain, nausea, vomiting, diarrhea or constipation Musculoskeletal: No joint pain, calf pain, swelling Neurologic: No weakness, numbness/tingling, or balance problems Psychiatric: No anxiety or depression Skin: No rash or itch (Subha Olson PA-C) Objective Vital Signs Date Time Temp Pulse Resp B/P (MAP) Pulse Ox O2 Delivery O2 Flow Rate FiO2 10/30/17 11:49 37.0 107 20 154/77 (102) 93 2.0 10/30/17 10:24 76 18 98 Nasal Cannula 3.0 10/30/17 08:00 Nasal Cannula 4.5 10/30/17 07:23 74 18 98 Nasal Cannula 3.0 10/30/17 07:17 37.0 88 20 128/71 (90) 98 Nasal Cannula 4.0 10/30/17 04:55 36.6 84 18 125/73 (90) 92 Room Air 10/30/17 04:20 Nasal Cannula 4.5 10/30/17 02:08 84 20 98 Nasal Cannula 3.0 10/30/17 00:00 Nasal Cannula 4.5 10/29/17 23:16 36.5 82 18 99/60 (73) 94 Nasal Cannula 4.0 10/29/17 20:30 Nasal Cannula 4.5 10/29/17 19:54 36.9 112 24 142/90 (107) 96 Nasal Cannula 4.5 10/29/17 19:07 89 21 97 Nasal Cannula 3.0 10/29/17 16:21 37.0 89 20 114/58 (76) 95 Nasal Cannula 3.0 10/29/17 16:21 Nasal Cannula 3.0 10/29/17 16:00 Nasal Cannula 3.0 10/29/17 14:25 119 22 94 Nasal Cannula 3.0 10/29/17 12:20 68 20 95 Nasal Cannula 3.0 30 (Subha Olson PA-C) Physical Exam Notes: General Appearance: WD/WN, no apparent distress, + obese Eyes: PERRL, EOMI ENT: hearing grossly normal, pharynx normal, + pertinent finding (MMM) Neck: supple, no JVD Respiratory/Chest: no respiratory distress, no accessory muscle use, + pertinent finding (on 2 L via NC, diminished breath sounds throughout, + expiratory wheeze worse in the R max. No rales or rhonchi) Cardiovascular: regular rate, rhythm, no JVD Abdomen: normal bowel sounds, non tender, soft Extremities: non-tender, no pedal edema, no calf tenderness, + pertinent finding (faint ecchymotic region over the right ant tibia healing) Neurologic/Psychiatric: no motor/sensory deficits, alert, normal mood/affect, oriented x 3 Skin: normal color, warm/dry (Subha Olson, BRIANC) Laboratory Results Last 24 Hours Test 10/29/17 12:21 10/29/17 16:08 10/29/17 20:13 10/29/17 21:30 Bedside Glucose 233 mg/dl 331 mg/dl 346 mg/dl Test 10/29/17 23:43 10/30/17 03:49 10/30/17 05:13 10/30/17 08:01 Bedside Glucose 236 mg/dl 179 mg/dl 179 mg/dl Creatinine 0.86 mg/dl Est Creatinine Clear Calc Drug Dose 61.0 ml/min Estimated GFR () 77.7 Estimated GFR (Non- 67.0 (Subha Olson PA-C) Assessment and Plan 72 years old female with past medical history of chronic respiratory failure on 2 L oxygen at home secondary to COPD, also patient had pulmonary embolism on 2015 currently on Xarelto, diastolic CHF last echo was 09/2016 that showed normal EF. Presented to the hospital with shortness of breath/wheezing/fever/chills/ diarrhea Acute on chronic hypoxic respiratory failure COPD exacerbation Upper respiratory tract infection symptoms suggestive of influenza as smaller block was carried infection. obesity hypoventilation syndrome VIJAY - Oxygen supplement as per protocol /BiPAP, will decrease Solumedrol 60 mg IV q8H, Continue ventolin nebs prn, spiriva inh, pulmicort, daliresp - Continue Vanco/azithromycin/ceftriaxone (initiated 10/28) - had previously been on azithromycin 250 MWF for antiinflammatory properties but reports not taking this after the 1 month supply was given from previous hospitalization in Jul 2017. Would recommend she is given this upon discharge. Can follow up with pulmonology as an outpatient within 1 week after discharge - Follow BCx/sputum culture -patient has not been able to provide sample as she is not producing sputum. -We will add Mucinex to her regimen today. - Influenza negative - Follow Urine legionella antigen -in process - Start patient on lactobacillus to prevent C. difficile Diastolic congestive heart failure - stable at this time Diabetes mellitus type 2 insulin requiring - A1C = 8.8 - Sliding scale insulin, pharmacy consult to adjust insulin as patient was on unusual regimen at home, NPH once a day History of pulmonary embolism - cont on Xarelto Hypothyroidism - Cont levothyroxine Vit D Deficiency - Cont supplementation DVT ppx: Continue Xarelto Disposition: From home, lives alone. PT/OT evals, discharge possible in ~2 days. Patient should have pulmonology follow-up within 1 week after discharge. (Subha Olson PA-C) i personally examined pt and verified all pichardo points alonzo CHANG feeling bad still ongoing ALVAREZ and wheeze marge noted nad diffuse fiant wheeze good effort no accessory muscles COPD exacerbation -increase nebs to q4hwa -continue current treatment otherwise (Jose Osorio D.Ifeoma.)
[2017-10-30] MEDS: GUAIFENESIN 600 MG TABCR PO SCH ×2 (14:27→21:18)
[2017-10-30] MEDS ORDERED: COUGH DROP (SUGAR FREE) LOZ 24 LOZ/1 BOX LOZ ONE (14:29)
--- NOTE | 2017-10-30 15:13 | Pharmacy Progress Note ---
Pharmacy Glycemic Short Note 2 Date of Service Oct 30, 2017. OUTPATIENT ANTIDIABETIC REGIMEN: * NPH 20 units qAM * Metformin 1 gm BID * A1c 8.8% on 10/29/17 ASSESSMENT: * Ms. Clemons remains on ATC Solu-medrol for acute respiratory failure. This has been decreased to q8h but is still above the threshold for maximum effects on BSGs so do not expect much improvement in BSGs from this change. * She remains on basal/bolus insulin and received 129 units of insulin yesterday * BSGs ranging from 179-346 mg/dL * Will adjust regimen based on est TDD ~130-160 units, going heavier on the prandial coverage b/c of the steroids on board PLAN FOR INPATIENT GLYCEMIC CONTROL: * Continue to hold outpatient oral diabetes medications * Basal insulin * Additional 10 given this AM since only 15 units given for BSG, then increase Lantus to 30 units SQ BID * Bolus insulin * NovoLog per scale ACHS or Q6hrs while NPO + 0200 check for additional insulin if necessary * Goal Range: Low 120 mg/dL - High 140 mg/dL * Correction Factor: 15 mg/dL/unit * TIGHTEN Nutritional / Prandial insulin per carb ratio of 1 unit per 4 grams CHO consumed
[2017-10-30] MEDS: AZITHROMYCIN IV 500 MG in DEXTROSE 5% 250ML 250 ML IV SCH (16:43)
[2017-10-30] MEDS ORDERED: ALBUT/IPRATROP 3MG/0.5MG NEB 3 ML VIAL INH ONE (20:06)
[2017-10-30] MEDS: MONTELUKAST SOD 10 MG TAB PO SCH (21:17)
[2017-10-30] MEDS: NORTRIPTYLINE HCL 10 MG CAP PO SCH (21:17)
[2017-10-30] MEDS: QUETIAPINE FUMARATE 200 MG TAB PO SCH (21:18)
[2017-10-30] MEDS: CEFTRIAXONE SOD INJ 1 GM in DEXTROSE 5% ADD-VANTAGE 50ML 50 ML IV SCH (23:47)
[2017-10-31] VITALS (18 sets, daily range): BP systolic 113–160; BP diastolic 61–80; PULSE 72–103; TEMP 36.6–36.9; O2SAT 91–100
[2017-10-31] MEDS: INSULIN ASPART 100 UNITS/ML 3 ML PEN SC SCH ×6 (01:06→20:18)
[2017-10-31] MEDS ORDERED: INSULIN ASPART 100 UNITS/ML 3 ML PEN SC ONE (02:00)
[2017-10-31] MEDS: METHYLPREDNISOLONE IV 60 MG in SYRINGE 0 ML IV SCH ×3 (02:16→17:06)
[2017-10-31] MEDS: CLONAZEPAM 0.5 MG TAB PO PRN ×2 (03:53→17:34)
[2017-10-31] MEDS: ALBUTEROL 0.083% NEBU SOLN 3 ML VIAL INH PRN ×3 (03:55→23:11)
[2017-10-31] MEDS ORDERED: VANCOMYCIN TROUGH ONE (05:30)
[2017-10-31] MEDS: LEVOTHYROXINE 25 MCG TAB PO SCH (06:06)
[2017-10-31 06:24] LABS: CREATININE 0.84 mg/dl (0.60-1.20)
[2017-10-31] MEDS: ARFORMOTEROL TART 15MCG/2ML VIAL INH SCH ×2 (07:05→19:43)
[2017-10-31] MEDS: ALBUT/IPRATROP 3MG/0.5MG NEB 3 ML VIAL INH SCH ×4 (07:05→19:43)
[2017-10-31] MEDS: BUDESONIDE 0.5 MG/2 ML VIAL (PULMICORT) INH SCH ×2 (07:06→19:43)
[2017-10-31] MEDS: ESCITALOPRAM OXALATE 20 MG TAB PO SCH (08:23)
[2017-10-31] MEDS: CHOLECALCIFEROL 400 INTER.UNIT TAB PO SCH (08:23)
[2017-10-31] MEDS: ROFLUMILAST 500 MCG TAB PO SCH (08:24)
[2017-10-31] MEDS: RIVAROXABAN 10 MG TAB PO SCH (08:24)
[2017-10-31] MEDS: TIOTROPIUM BROMIDE 5 PUFF/90 MCG INH INH SCH (08:24)
[2017-10-31] MEDS: GUAIFENESIN 600 MG TABCR PO SCH ×2 (08:24→20:07)
[2017-10-31] MEDS: POTASSIUM CHLORIDE 20 MEQ TABCR PO SCH ×2 (08:24→20:07)
[2017-10-31] MEDS: LACTOBACILLUS ACIDOPHILUS (FLORANEX) TAB PO SCH ×3 (08:24→17:06)
[2017-10-31] MEDS: FLUTICASONE PROPIONATE NA SPR 16 GM BTL NAE SCH (08:25)
[2017-10-31] MEDS: INSULIN GLARGINE SOLOSTAR 100 UNITS/ML 3 ML PEN SC SCH ×2 (08:35→20:17)
--- NOTE | 2017-10-31 10:56 | Pharmacy Progress Note ---
Pharmacy Glycemic Short Note 2 Date of Service Oct 31, 2017. * OUTPATIENT ANTIDIABETIC REGIMEN: * NPH 20 units qAM * Metformin 1 gm BID * A1c 8.8% on 10/29/17 ASSESSMENT: 10/30/17 * Ms. Clemons remains on ATC Solu-medrol for acute respiratory failure. This has been decreased to q8h but is still above the threshold for maximum effects on BSGs so do not expect much improvement in BSGs from this change. * She remains on basal/bolus insulin and received 129 units of insulin yesterday * BSGs ranging from 179-346 mg/dL * Will adjust regimen based on est TDD ~130-160 units, going heavier on the prandial coverage b/c of the steroids on board 10/31/17 * Ms. Clemons received 128 units of insulin yesterday. She remains on Solu- medrol 60 mg IV q8h. * Fasting BS mg/dL * Postprandial BSGs yesterday: 214, 155, 271 * Will plan to tighten CR further since postprandials are elevated PLAN FOR INPATIENT GLYCEMIC CONTROL: * Continue to hold outpatient oral diabetes medications * Basal insulin * Continue Lantus 30 units SQ BID * Bolus insulin * NovoLog per scale ACHS or Q6hrs while NPO + 0200 check for additional insulin if necessary * Goal Range: Low 120 mg/dL - High 140 mg/dL * Correction Factor: 15 mg/dL/unit * TIGHTEN Nutritional / Prandial insulin per carb ratio of 1 unit per 3 grams CHO consumed
[2017-10-31] MEDS: AZITHROMYCIN IV 500 MG in DEXTROSE 5% 250ML 250 ML IV SCH (17:05)
--- NOTE | 2017-10-31 19:12 | Progress Note ---
Subjective Date of Service: Oct 31, 2017. Subjective Pt evaluation today including: conversation w/ patient, physical exam, chart review, lab review, review of inpatient medication list breathing about the same was bad at 4am now back to how she's been but definitely not better than the last few days notes some chills and sweats Problem List Medical Problems: (1) Acute bronchitis Status: Acute (2) Acute exacerbation of chronic obstructive pulmonary disease Status: Acute (3) Anemia Status: Acute (4) Anemia Status: Acute (5) COPD exacerbation Status: Acute (6) COPD exacerbation Status: Acute (7) COPD exacerbation Status: Acute (8) COPD exacerbation Status: Acute (9) COPD exacerbation Status: Acute (10) Hyperglycemia due to type 2 diabetes mellitus Status: Acute (11) Hypomagnesemia Status: Acute (12) Hypoxia Status: Acute (13) Lactic acidosis Status: Acute (14) Sepsis Status: Acute (15) Shortness of breath Status: Acute (16) Tachypnea Status: Acute Review of Systems all other ROS otherwise negative except for as above Objective Vital Signs Date Time Temp Pulse Resp B/P (MAP) Pulse Ox O2 Delivery O2 Flow Rate FiO2 10/31/17 17:50 88 22 97 Nasal Cannula 3.0 10/31/17 16:00 Nasal Cannula 4.5 10/31/17 15:23 36.9 81 20 120/69 (86) 97 CPAP 10/31/17 14:38 80 100 30 10/31/17 14:29 88 24 91 Nasal Cannula 3.0 10/31/17 12:13 36.6 81 18 155/80 (105) 96 BiPAP 10/31/17 12:00 BiPAP 10/31/17 11:20 99 98 30 10/31/17 11:19 99 18 98 BiPAP/CPAP 30 10/31/17 08:00 Nasal Cannula 4.5 10/31/17 07:50 36.8 72 22 147/72 (97) 97 Nasal Cannula 3.0 10/31/17 07:06 86 18 99 Nasal Cannula 3.0 10/31/17 04:00 Nasal Cannula 4.0 10/31/17 03:55 99 20 97 Mask 3.0 10/31/17 03:54 36.9 91 24 147/61 (89) 98 Nebulizer 3.0 10/31/17 00:23 36.8 79 20 113/63 (80) 95 4.0 10/31/17 00:06 79 98 30 10/31/17 00:00 Nasal Cannula 4.0 10/30/17 21:04 81 22 96 Nasal Cannula 3.0 10/30/17 20:00 Nasal Cannula 4.0 10/30/17 19:58 37.0 85 20 128/68 (88) 93 Nasal Cannula 3.0 Physical Exam General Appearance: no apparent distress Eyes: EOMI ENT: hearing grossly normal Neck: trachea midline Respiratory/Chest: + decreased breath sounds (wheeze mild accessory muscles about the same as yesterday) 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 obesity hypoventilation syndrome VIJAY - continue nebs, steroids, antibiotics, supportive care, bipap - not improving, still fiarly wheezy and dyspnic, will ask pulmonary for input Diastolic congestive heart failure - stable at this time no noted deterioration Diabetes mellitus type 2 insulin requiring - A1C = 8.8 - ongoign insulin management sugars have been reasonable History of pulmonary embolism - cont on Xarelto, no new complaints Hypothyroidism - Cont levothyroxine Vit D Deficiency - Cont supplementation DVT ppx: Continue Xarelto Disposition: From home, goal would be return home
--- NOTE | 2017-10-31 19:59 | Pulmonary Consultation ---
History General Date of Service: Oct 31, 2017. Stated Complaint: Acute Respiratory Failure With Hypoxia and severe abdominal pain HPI The patient is a 72 year old female who presents to [facility] with complaints of Acute Respiratory Failure With Hypoxia. The patient' s primary care provider is Anil Rodriguez D.O.. This patient is being admitted for acute on chronic respiratory insufficiency. At this time is the patient's 15 total admission for COPD/hypoxic respiratory insufficiency over the last 1 and half years. She initially was admitted at [facility] 8 times and has subsequently been admitted the [facility] 7 more episodes. The patient has been tried on multiple different medications over the past year with inhaled corticosteroids, LAMA, LABA, Daliresp and azithromycin. After discussions whether she notes that only the BiPAP, nebulizers, Daliresp and prednisone appear to change overall respiratory status. Prior to this admission the patient noted she did have some GI upset with an episode of diarrhea on Thursday which seem to initiate her respiratory insufficiency where she attempted to treat herself for 4 day window but was unsuccessful and was transferred to [facility] for further evaluation and admission. The patient does have a past medical history significant for diastolic heart failure, pulmonary embolism (Xarelto), and clinically diagnosed with very severe COPD. Historian: patient, EMS Review of Systems Constitutional: reports: malaise, weakness Eyes: reports: no symptoms ENT: reports: no symptoms Cardiovascular: reports: no symptoms Respiratory: reports: as stated in HPI Gastrointestinal: reports: as stated in HPI Genitourinary - Female: reports: no symptoms Musculoskeletal: reports: no symptoms Integumentary: reports: no symptoms Neurologic: reports: no symptoms Psychiatric: reports: anxiety, depression Endocrine: no symptoms Hematologic / Lymphatic: no symptoms Allergic / Immunologic: no symptoms Past Medical History Past Medical History: 1. GERD 2. CHF 3. COPD--oxygen-dependent 4. Meningitis 5. Ovarian cancer 6. Pulmonary embolism-June 2016 7. Hypothyroidism 8. Xbp-[id number] diabetes mellitus Family History No pertient family history secondary to age Son: With schizophrenia or possible schizoaffective disorder Social History Social history Tobacco: 30+ pack-year quit 2011 ETOH: Denies history of abuse Living situation: Previously maintain independence for live next door daughter Occupation: Retired Hx Tobacco Use In Past Year?: No (QUIT 5 YEARS AGO) Smoking Status: Former Smoker Marital status: Housing status: lives alone Occupational Status: retired Immunizations History of Influenza Vaccine: Yes History of Tetanus Vaccine?: Yes History of Pneumococcal: Yes History of Hepatitis B Vaccine: Unknown History of MDRO History of MDRO: No Allergies Coded Allergies: Rabies Vaccine (Verified Allergy, Severe, HIVES, 10/28/17) Ragweed (Verified Allergy, Unknown, UNKNOWN, 10/28/17) Tomato (Verified Allergy, Unknown, HIVES, 10/28/17) Current Medications Reported Home Medications Medications Dose Route/Sig Max Daily Dose Days Date Category Dose Instructions Humulin N (Insulin Human NPH) 100 Units/Ml Susp 20 Units SC QDB 10/28/17 Reported Lexapro (Escitalopram Oxalate) 20 Mg Tab 20 Mg PO DAILY 10/28/17 Reported Miralax (Polyethylene) 17 Gm Pow 17 Gm PO DAILY PRN 30 08/12/17 Rx Bisacodyl EC (Bisacodyl) 5 Mg Tabec 10 Mg PO DAILY PRN 30 08/12/17 Rx Daliresp (Roflumilast) 500 Mcg Tab 500 Mcg PO DAILY 30 08/12/17 Rx Prednisone 10 Mg Tab 10 Mg PO UD 10 08/12/17 Rx see medical discharge instructions from hospital for tapering course Hydroxyzine HCl 10 Mg Tab 10 Mg PO TID PRN 08/01/17 Reported Pulmicort Respules 0.5MG/2ML (Budesonide) 0.5 Mg/2 Ml Nebu 0.5 Mg INH BID 06/19/17 Reported Brovana (Arformoterol Tartrate) 15 Mcg/2 Ml Neb 15 Mcg INH BID 06/19/17 Reported Albuterol Sulfate (Albuterol Sulf) 2.5 Mg/3 Ml Nebu 2.5 Mg INH Q4 PRN 06/19/17 Reported Xarelto (Rivaroxaban) 20 Mg Tab 20 Mg PO QAM 04/15/17 Reported Glucophage (Metformin Hcl) 1,000 Mg Tab 1,000 Mg PO BID 04/15/17 Reported Vitamin D 400 Iu (Cholecalciferol) 400 Unit Cap 400 Inter.unit PO QAM 04/15/17 Reported Pamelor (Nortriptyline HCl) 10 Mg Cap 10 Mg PO HS 04/15/17 Reported Rohit-24 (Theophylline) 400 Mg Capcr 1 Cap PO QAM 04/15/17 Reported Seroquel (Quetiapine Fumarate) 400 Mg Tab 400 Mg PO HS 09/21/16 Reported Synthroid (Levothyroxine Sodium) 25 Mcg Tab 25 Mcg PO QAM 09/21/16 Reported Spiriva Handihaler (Tiotropium [place]) 30 Puff/540 Mcg Aerp 1 Cap INH DAILY 09/21/16 Reported Singulair (Montelukast Sodium) 10 Mg Tab 10 Mg PO HS 09/21/16 Reported Remeron (Mirtazapine) 45 Mg Tab 45 Mg PO HS 09/21/16 Reported Oyster Shell Calcium + D (Calcium Carbonate-Cholecalcife) 1 Tab Tab 1 Tab PO QAM 09/21/16 Reported Meloxicam 7.5 Mg Tab 7.5 Mg PO DAILY 09/21/16 Reported Klor-Con M20 (Potassium Chloride) 20 Meq Tabcr 20 Meq PO BID 09/21/16 Reported Flonase Allergy Relief (Fluticasone Propionate (Nasal)) 50 Mcg/Act Spr 1 [place] NANCY DAILY 09/21/16 Reported Multi Vitamin with Iron (Multiple Vitamins W/ Iron) 1 Tab Tab 1 Tab PO QAM 09/21/16 Reported Clonazepam 0.5 Mg Tab 0.5 Mg PO Q12H PRN 09/21/16 Reported Physical Physical Exam Vital Signs: Date Time Temp Pulse Resp B/P (MAP) Pulse Ox O2 Delivery O2 Flow Rate FiO2 10/31/17 19:13 36.7 97 22 160/66 (97) 97 Nasal Cannula 3.0 10/31/17 17:50 88 22 97 Nasal Cannula 3.0 10/31/17 16:00 Nasal Cannula 4.5 10/31/17 15:23 36.9 81 20 120/69 (86) 97 CPAP 10/31/17 14:38 80 100 30 10/31/17 14:29 88 24 91 Nasal Cannula 3.0 10/31/17 12:13 36.6 81 18 155/80 (105) 96 BiPAP 10/31/17 12:00 BiPAP 10/31/17 11:20 99 98 30 10/31/17 11:19 99 18 98 BiPAP/CPAP 30 10/31/17 08:00 Nasal Cannula 4.5 10/31/17 07:50 36.8 72 22 147/72 (97) 97 Nasal Cannula 3.0 10/31/17 07:06 86 18 99 Nasal Cannula 3.0 10/31/17 04:00 Nasal Cannula 4.0 10/31/17 03:55 99 20 97 Mask 3.0 10/31/17 03:54 36.9 91 24 147/61 (89) 98 Nebulizer 3.0 10/31/17 00:23 36.8 79 20 113/63 (80) 95 4.0 10/31/17 00:06 79 98 30 10/31/17 00:00 Nasal Cannula 4.0 10/30/17 21:04 81 22 96 Nasal Cannula 3.0 10/30/17 20:00 Nasal Cannula 4.0 10/30/17 19:58 37.0 85 20 128/68 (88) 93 Nasal Cannula 3.0 General Appearance: mild distress Head: NORMOCEPHALIC, ATRAUMATIC Eyes: PERRLA, NO DISCHARGE, EOMI, SCLERAE NORMAL ENT: NORMAL EAR EXAM, NORMAL NASAL EXAM, NORMAL MOUTH EXAM, NORMAL THROAT EXAM Neck: NORMAL RANGE OF MOTION, NO TENDERNESS, TRACHEA MIDLINE Respiratory: other (Decreased breath sounds bilaterally) Cardiovasular: other (S1-S2 regular rate and rhythm no murmurs rubs or gallops appreciated) Abdomen: other (Obese but positive bowel sounds soft nontender no rebound) Genitourinary - Female: EXTERNAL GENITALIA NORMAL Back: NORMAL INSPECTION, NO MIDLINE TENDERNESS, NO CVA TENDERNESS, NO PARAVERTEBRAL TTP Upper Extremities: NO EDEMA, NO DEFORMITY, NORMAL ROM Lower Extremities: other (Mild edema bilaterally at the dependent regions) Pulses: carotid (R) (1+), carotid (L) (1+), posterior tibial (R), posterior tibial (L) (2+) Neuro: ALERT, ORIENTED x 3, NORMAL MOTOR EXAM, NORMAL SENSATION Reflexes: biceps (R) (2+), bicpes (L) (2+), achilles (R) (2+), achilles (L) (2+ ) Babinski Testing: right (downgoing), left (downgoing) Psychiatric: depressed, anxious Diagnostics Labs Results Past 24 Hours Test 10/30/17 21:03 10/30/17 23:50 10/31/17 04:08 10/31/17 05:16 Range/Units Bedside Glucose 271 224 96 70-90 mg/dl Creatinine 0.84 0.60-1.20 mg/dl Est Creatinine Clear Calc Drug Dose 62.8 ml/min Estimated GFR () 79.9 Estimated GFR (Non- 69.0 Test 10/31/17 07:31 10/31/17 11:10 10/31/17 16:33 Range/Units Bedside Glucose 126 207 110 70-90 mg/dl Diagnostic Radiology CXR: Minimal basilar infiltrates CT thorax: Diffuse emphysema with bullous disease/changes along with minimal atelectasis versus scar tissues at the bases bilaterally EKG Sinus tachycardia with occasional PVCs rate 114 Impression Assessment and Plan 72-year-old female admitted for acute on chronic respiratory insufficiency/ failure: 1. Respiratory Insufficiency: The patient has been admitted approximately 15 times in the last year and a half for respiratory insufficiency. She most likely carries a diagnosis of very severe COPD but there is no PFT reports the back this finding. Her clinical as well as radiographic findings are consistent with the diagnosis. At this time she is treated with multiple medications at home with azithromycin, Daliresp, Spiriva, Brovana, montelukast, and possibly theophylline per the records. I did monitor the patient and she is unable to perform a proper inhalation technique. At this time I would like to simplify her regimen by only having her on duo nebs q.6 hours, albuterol nebulizer for breakthrough shortness of breath, prednisone which we will continue even as an outpatient as this appears to be is stabilizing agent, Daliresp and azithromycin 500 mg 3 times a week. I will remove her Brovana, Theophylline (as a combination of this and azithromycin could lead to a high risk of cardiac arrhythmias) as well as other inhalers S she is not able to properly perform the technique. I do believe this patient could benefit from BiPAP therapy at home but we will have to perform a nocturnal desaturation study on no more than 2 liters nasal cannula support as well as having awake ABG with a PA CO2 greater than 52 or 55. 2. Hospice: I did ask this patient if she would like hospice evaluation but she did note decent quality of life and she is not ready to move forward with that decision/evaluation at this time. 3. Echocardiogram: I will hold off on ordering echocardiogram at this time but will reconsider this idea to evaluate for possibly increasing right ventricular strain and signs consistent with onset of cor pulmonale.
[2017-10-31] MEDS: NORTRIPTYLINE HCL 10 MG CAP PO SCH (20:06)
[2017-10-31] MEDS: QUETIAPINE FUMARATE 200 MG TAB PO SCH (20:06)
[2017-10-31] MEDS: MONTELUKAST SOD 10 MG TAB PO SCH (20:08)
[2017-10-31] MEDS: CEFTRIAXONE SOD INJ 1 GM in DEXTROSE 5% ADD-VANTAGE 50ML 50 ML IV SCH (23:44)
[2017-11-01] VITALS (11 sets, daily range): BP systolic 117–151; BP diastolic 65–83; PULSE 65–88; TEMP 36.7–37.2; O2SAT 93–100
[2017-11-01] MEDS ORDERED: INSULIN ASPART 100 UNITS/ML 3 ML PEN SC ONE (02:00)
[2017-11-01] MEDS: METHYLPREDNISOLONE IV 60 MG in SYRINGE 0 ML IV SCH ×3 (02:16→17:37)
[2017-11-01] MEDS: LEVOTHYROXINE 25 MCG TAB PO SCH (05:55)
[2017-11-01 06:22] LABS: CREATININE 0.81 mg/dl (0.60-1.20)
[2017-11-01] MEDS: ALBUT/IPRATROP 3MG/0.5MG NEB 3 ML VIAL INH SCH ×4 (07:22→19:07)
[2017-11-01] MEDS: GUAIFENESIN 600 MG TABCR PO SCH ×2 (08:45→20:09)
[2017-11-01] MEDS: ESCITALOPRAM OXALATE 20 MG TAB PO SCH (08:45)
[2017-11-01] MEDS: RIVAROXABAN 10 MG TAB PO SCH (08:45)
[2017-11-01] MEDS: ROFLUMILAST 500 MCG TAB PO SCH (08:45)
[2017-11-01] MEDS: CHOLECALCIFEROL 400 INTER.UNIT TAB PO SCH (08:45)
[2017-11-01] MEDS: LACTOBACILLUS ACIDOPHILUS (FLORANEX) TAB PO SCH ×3 (08:45→17:38)
[2017-11-01] MEDS: POTASSIUM CHLORIDE 20 MEQ TABCR PO SCH ×2 (08:45→20:09)
[2017-11-01] MEDS: FLUTICASONE PROPIONATE NA SPR 16 GM BTL NAE SCH (08:46)
[2017-11-01] MEDS: INSULIN ASPART 100 UNITS/ML 3 ML PEN SC SCH ×4 (08:50→20:14)
[2017-11-01] MEDS ORDERED: INSULIN GLARGINE SOLOSTAR 100 UNITS/ML 3 ML PEN SC SCH (09:00)
--- NOTE | 2017-11-01 11:22 | Pulmonology Progress Note ---
Pulmonary Progress Note Date of Service Nov 01, 2017. Attending Dr. Meyers Subjective Patient was sleeping but easily arousable. She was notably concerned about are talk from yesterday as we did discuss possible even evaluation by hospice team. Objective Patient was awake alert able to complete full sentences not showing signs of respiratory insufficiency: Vital signs: Stable on 3 liters nasal cannula Respiratory: Decreased breath sounds globally Cardiac: S1-S2 distant heart sounds Abdomen: Positive bowel sounds soft nontender Extremities: Minimal edema at the dependent regions Assessment & Plan 72-year-old female who admitted for acute on chronic respiratory insufficiency/ failure: 1. Respiratory insufficiency: Once again this patient has been admitted approximately 15 times in the last year and a half for respiratory failure. Clinically will describe her as very severe COPD even though we do not have pulmonary function studies for verification. I am attempting to simplify her current COPD regimen by placing most of her medications to nebulizers as she is unable to perform proper inhaler technique. I also discontinued her theophylline but continued her azithromycin. After re-evaluating this patient her VBG corrected PA CO2 is only 38 which does not meet the Medicare requirements are indications for BiPAP. Even though clinically do believe this patient could benefit from BiPAP she does have to have an awake PA CO2 greater than 52. I also will discontinue her IV steroids starting tomorrow moaning and initiate her on oral prednisone. 2. Echocardiogram: I have considered obtaining an echocardiogram to evaluate for signs of right ventricular strain/cor pulmonale but as the patient is not ready for hospice conversation obtain this study would most likely not benefit her care. Data Medications: Current Inpatient Medications Medications (Trade) Dose Ordered Sig/Lulú Route Start Time Stop Time Status Last Admin Dose Admin Ioversol (Optiray 320) 100 ml UD PRN IV 10/28/17 17:45 11/01/17 17:44 Albuterol Sulfate (Ventolin 0.083% 2.5MG/3ML Neb) 2.5 mg Q4 PRN INH 10/28/17 21:00 11/27/17 20:59 10/31/17 23:11 2.5 MG Bisacodyl (Dulcolax Tab) 10 mg DAILY PRN PO 10/28/17 21:00 11/27/17 20:59 Cholecalciferol (Vitamin D Tab) 400 inter.unit QAM PO 10/29/17 09:00 11/28/17 08:59 11/01/17 08:45 400 INTER.UNIT Clonazepam (Klonopin Tab) 0.5 mg Q12H PRN PO 10/28/17 21:00 11/27/17 20:59 10/31/17 17:34 0.5 MG Escitalopram Oxalate (Lexapro Tab) 20 mg DAILY PO 10/29/17 09:00 11/28/17 08:59 11/01/17 08:45 20 MG Fluticasone Propionate (Flonase Nasal [place]) 1 sprays DAILY NANCY 10/29/17 09:00 11/28/17 08:59 11/01/17 08:46 1 SPRAYS Hydroxyzine HCl (Vistaril Tab) 10 mg TID PRN PO 10/28/17 21:00 11/27/17 20:59 Levothyroxine Sodium (Synthroid Tab) 25 mcg DAILYBB PO 10/29/17 06:30 11/28/17 06:29 11/01/17 05:55 25 MCG Montelukast Sodium (Singulair Tab) 10 mg HS PO 10/28/17 21:00 11/27/17 20:59 10/31/17 20:08 10 MG Nortriptyline HCl (Pamelor Cap) 10 mg HS PO 10/28/17 21:00 11/27/17 20:59 10/31/17 20:06 10 MG Potassium Chloride (Klor-Con Tab) 20 meq BID PO 10/28/17 21:00 11/27/17 20:59 11/01/17 08:45 20 MEQ Quetiapine Fumarate (seroQUEL TAB) 400 mg HS PO 10/28/17 21:00 11/27/17 20:59 10/31/17 20:06 400 MG Rivaroxaban (Xarelto Tab) 20 mg QAM PO 10/29/17 09:00 11/28/17 08:59 11/01/17 08:45 20 MG Roflumilast (Daliresp Tab) 500 mcg DAILY PO 10/29/17 09:00 11/28/17 08:59 11/01/17 08:45 500 MCG Acetaminophen (Tylenol Tab) 650 mg Q4H PRN PO 10/28/17 21:15 11/27/17 21:14 Al Hydrox/Mg Hydrox/Simethicone (Maalox Max Susp) 15 ml Q4H PRN PO 10/28/17 21:15 11/27/17 21:14 Magnesium Hydroxide (Milk Of Magnesia Susp) 30 ml Q12H PRN PO 10/28/17 21:15 11/27/17 21:14 Zolpidem Tartrate (Ambien Tab) 5 mg HSZ PRN PO 10/28/17 21:15 11/27/17 21:14 Ondansetron HCl (Zofran Inj) 4 mg Q6H PRN IV 10/28/17 21:15 11/27/17 21:14 Polyethylene (Miralax Powder Packet) 17 gm DAILY PRN PO 10/28/17 21:15 11/27/17 21:14 Glucose (Glucose 40% Gel) 15-30 GRAMS 15 GRAMS... UD PRN PO 10/28/17 21:15 11/27/17 21:14 Glucose (Glucose Chew Tab) 4-8 Tablets 4 Tabl... UD PRN PO 10/28/17 21:15 11/27/17 21:14 Dextrose (Dextrose 50% 50ML Syringe) 25-50ML OF 50% DW IV FOR... UD PRN IV 10/28/17 21:15 11/27/17 21:14 Glucagon (Glucagon Inj) 1 mg UD PRN SQ 10/28/17 21:15 11/27/17 21:14 Miscellaneous Information (Consult Glycemic Management Pharmacy) 1 ea UD PRN N/A 10/28/17 21:30 11/27/17 21:29 Azithromycin 500 mg/Dextrose 255 ml @ 125 mls/hr Q24H IV 10/29/17 17:00 11/05/17 16:59 10/31/17 17:05 125 MLS/HR Ceftriaxone Sodium 1 gm/ Dextrose 50 ml @ 100 mls/hr Q24H IV 10/29/17 00:00 11/05/17 00:00 10/31/17 23:44 100 MLS/HR Lactobacillus Acidophilus (Floranex Tab) 4 tab TIDM PO 10/29/17 08:00 11/28/17 07:59 11/01/17 08:45 4 TAB Insulin Aspart (novoLOG ASPART) SLIDING SCALE If C... ACHS SC 10/29/17 21:00 11/28/17 20:59 11/01/17 08:50 16 UNITS Guaifenesin (Mucinex Contr Rel Tab) 1,200 mg Q12 PO 10/30/17 13:30 11/29/17 13:29 11/01/17 08:45 1,200 MG Methylprednisolone Sodium Succinate 60 mg/Syringe 0.96 ml @ 1.5 mls/min Q8H IV 10/30/17 14:00 11/28/17 13:59 11/01/17 08:45 1.5 MLS/MIN Albuterol/ Ipratropium (Duoneb) 3 ml Q4RWA INH 10/31/17 08:00 11/30/17 07:59 11/01/17 11:12 3 ML Insulin Glargine (Lantus Solostar Pen) 35 units BID SC 11/01/17 09:00 12/01/17 08:59 11/01/17 08:51 35 UNITS Vital Signs: Date Time Temp Pulse Resp B/P (MAP) Pulse Ox O2 Delivery O2 Flow Rate FiO2 11/01/17 11:12 85 18 95 Nasal Cannula 3.0 11/01/17 08:00 Nasal Cannula 3.0 11/01/17 07:51 37.1 74 149/83 (105) 97 Nasal Cannula 3.0 11/01/17 07:23 88 18 98 Nasal Cannula 3.0 11/01/17 04:00 Nasal Cannula 3.0 BiPAP 11/01/17 03:44 36.7 71 20 127/74 (91) 98 BiPAP 30 11/01/17 00:00 Nasal Cannula 3.0 BiPAP 10/31/17 23:12 96 98 30 10/31/17 23:11 96 22 98 BiPAP/CPAP 30 10/31/17 22:57 36.7 103 20 124/68 (86) 93 Nasal Cannula 3.0 10/31/17 20:00 Nasal Cannula 3.0 10/31/17 19:44 89 22 97 Nasal Cannula 3.0 10/31/17 19:13 36.7 97 22 160/66 (97) 97 Nasal Cannula 3.0 10/31/17 17:50 88 22 97 Nasal Cannula 3.0 10/31/17 16:00 Nasal Cannula 4.5 10/31/17 15:23 36.9 81 20 120/69 (86) 97 CPAP 10/31/17 14:38 80 100 30 10/31/17 14:29 88 24 91 Nasal Cannula 3.0 10/31/17 12:13 36.6 81 18 155/80 (105) 96 BiPAP 10/31/17 12:00 BiPAP Laboratory Results: Last 24 Hours Test 10/31/17 16:33 10/31/17 19:56 11/01/17 02:15 11/01/17 05:08 Bedside Glucose 110 mg/dl 141 mg/dl 200 mg/dl Creatinine 0.81 mg/dl Est Creatinine Clear Calc Drug Dose 65.6 ml/min Estimated GFR () 83.5 Estimated GFR (Non- 72.1 Test 11/01/17 07:53 Bedside Glucose 130 mg/dl
--- NOTE | 2017-11-01 15:22 | Pharmacy Progress Note ---
Pharmacy Glycemic Short Note 2 Date of Service Nov 01, 2017. * OUTPATIENT ANTIDIABETIC REGIMEN: * NPH 20 units qAM * Metformin 1 gm BID * A1c 8.8% on 10/29/17 ASSESSMENT: 10/30/17 * Ms. Clemons remains on ATC Solu-medrol for acute respiratory failure. This has been decreased to q8h but is still above the threshold for maximum effects on BSGs so do not expect much improvement in BSGs from this change. * She remains on basal/bolus insulin and received 129 units of insulin yesterday * BSGs ranging from 179-346 mg/dL * Will adjust regimen based on est TDD ~130-160 units, going heavier on the prandial coverage b/c of the steroids on board 10/31/17 * Ms. Clemons received 128 units of insulin yesterday. She remains on Solu- medrol 60 mg IV q8h. * Fasting BS mg/dL * Postprandial BSGs yesterday: 214, 155, 271 * Will plan to tighten CR further since postprandials are elevated 11/01/17 * Patient received 128 units of insulin yesterday * BSGs ranging from 109-200 mg/dL * Will remain on Solu-medrol 60 mg q8h but will be decreased to prednisone 30 mg BID starting tomorrow AM * With change to steroids and BSGs running on the lower side, will decrease basal dose as per scale. Continue tighten CF/CR for today at least, may need to adjust tomorrow afternoon. PLAN FOR INPATIENT GLYCEMIC CONTROL: * Continue to hold outpatient oral diabetes medications * Basal insulin * Lantus per scale * 25 units BID (BSG < 120) * 30 units BID (BSG 120-140) * 35 units BID (BSG > 140) * Bolus insulin - no change * NovoLog per scale ACHS * Goal Range: Low 120 mg/dL - High 140 mg/dL * Correction Factor: 12 mg/dL/unit * Nutritional / Prandial insulin per carb ratio of 1 unit per 2.5 grams CHO consumed
--- NOTE | 2017-11-01 16:56 | Progress Note ---
Subjective Date of Service: Nov 01, 2017. Subjective Pt evaluation today including: conversation w/ patient, physical exam, chart review, lab review, conversation w/ design center consultant, review of inpatient medication list feeling a littel better was overhwhelmed w discussion of hsopice w pulmonary breathing less bad, no chills/sweats Problem List Medical Problems: (1) Acute bronchitis Status: Acute (2) Acute exacerbation of chronic obstructive pulmonary disease Status: Acute (3) Anemia Status: Acute (4) Anemia Status: Acute (5) COPD exacerbation Status: Acute (6) COPD exacerbation Status: Acute (7) COPD exacerbation Status: Acute (8) COPD exacerbation Status: Acute (9) COPD exacerbation Status: Acute (10) Hyperglycemia due to type 2 diabetes mellitus Status: Acute (11) Hypomagnesemia Status: Acute (12) Hypoxia Status: Acute (13) Lactic acidosis Status: Acute (14) Sepsis Status: Acute (15) Shortness of breath Status: Acute (16) Tachypnea Status: Acute Review of Systems all other ROS otherwise negative except for as above Objective Vital Signs Date Time Temp Pulse Resp B/P (MAP) Pulse Ox O2 Delivery O2 Flow Rate FiO2 11/01/17 16:00 Nasal Cannula 3.0 11/01/17 15:16 37.1 73 20 133/65 (87) 93 Nasal Cannula 2.0 11/01/17 15:01 82 18 96 Nasal Cannula 3.0 11/01/17 12:00 Nasal Cannula 3.0 11/01/17 11:12 85 18 95 Nasal Cannula 3.0 11/01/17 11:08 37.2 82 20 151/77 (101) 96 Nasal Cannula 3.0 11/01/17 08:00 Nasal Cannula 3.0 11/01/17 07:51 37.1 74 149/83 (105) 97 Nasal Cannula 3.0 11/01/17 07:23 88 18 98 Nasal Cannula 3.0 11/01/17 04:00 Nasal Cannula 3.0 BiPAP 11/01/17 03:44 36.7 71 20 127/74 (91) 98 BiPAP 30 11/01/17 00:00 Nasal Cannula 3.0 BiPAP 10/31/17 23:12 96 98 30 10/31/17 23:11 96 22 98 BiPAP/CPAP 30 10/31/17 22:57 36.7 103 20 124/68 (86) 93 Nasal Cannula 3.0 10/31/17 20:00 Nasal Cannula 3.0 10/31/17 19:44 89 22 97 Nasal Cannula 3.0 10/31/17 19:13 36.7 97 22 160/66 (97) 97 Nasal Cannula 3.0 10/31/17 17:50 88 22 97 Nasal Cannula 3.0 Physical Exam General Appearance: no apparent distress Eyes: EOMI ENT: hearing grossly normal Neck: trachea midline Respiratory/Chest: no respiratory distress, no accessory muscle use, + wheezing (still decreased BS wheeze but better than before no accessory muscles) Neurologic/Psychiatric: belt cleaner II-XII nml as tested, alert, normal mood/affect Skin: normal color Laboratory Results Last 24 Hours Test 10/31/17 19:56 11/01/17 02:15 11/01/17 05:08 11/01/17 07:53 Bedside Glucose 141 mg/dl 200 mg/dl 130 mg/dl Creatinine 0.81 mg/dl Est Creatinine Clear Calc Drug Dose 65.6 ml/min Estimated GFR () 83.5 Estimated GFR (Non- 72.1 Test 11/01/17 12:04 11/01/17 16:27 Bedside Glucose 109 mg/dl 147 mg/dl Assessment and Plan Acute on chronic hypoxic respiratory failure COPD exacerbation Upper respiratory tract infection symptoms suggestive of influenza obesity hypoventilation syndrome VIJAY - continue nebs, steroids, antibiotics, supportive care, bipap - appreciate pulmonary input - tried to help "ease" her into end of life type decision making discussing goals of care concepts Diastolic congestive heart failure - stable at this time no noted deterioration, stable Diabetes mellitus type 2 insulin requiring - A1C = 8.8 - ongoing insulin management sugars have been reasonable History of pulmonary embolism - cont on Xarelto, no new complaints or problems no bleeding Hypothyroidism - Cont levothyroxine Vit D Deficiency - Cont supplementation DVT ppx: Continue Xarelto Disposition: From home, goal would be return home
[2017-11-01] MEDS: AZITHROMYCIN IV 500 MG in DEXTROSE 5% 250ML 250 ML IV SCH (17:39)
[2017-11-01] MEDS: MONTELUKAST SOD 10 MG TAB PO SCH (20:10)
[2017-11-01] MEDS: QUETIAPINE FUMARATE 200 MG TAB PO SCH (20:10)
[2017-11-01] MEDS: NORTRIPTYLINE HCL 10 MG CAP PO SCH (20:11)
[2017-11-01] MEDS: INSULIN GLARGINE SOLOSTAR 100 UNITS/ML 3 ML PEN SC SCH (20:16)
[2017-11-01] MEDS: ALBUTEROL 0.083% NEBU SOLN 3 ML VIAL INH PRN (22:57)
[2017-11-01] MEDS: CEFTRIAXONE SOD INJ 1 GM in DEXTROSE 5% ADD-VANTAGE 50ML 50 ML IV SCH (23:33)
[2017-11-02] VITALS (11 sets, daily range): BP systolic 107–151; BP diastolic 61–80; PULSE 73–103; TEMP 36.9–37.2; O2SAT 94–99
[2017-11-02] MEDS: METHYLPREDNISOLONE IV 60 MG in SYRINGE 0 ML IV SCH (02:30)
[2017-11-02] MEDS: ALBUTEROL 0.083% NEBU SOLN 3 ML VIAL INH PRN (02:42)
[2017-11-02] MEDS: LEVOTHYROXINE 25 MCG TAB PO SCH (05:11)
[2017-11-02] MEDS: ALBUT/IPRATROP 3MG/0.5MG NEB 3 ML VIAL INH SCH ×5 (06:56→23:31)
[2017-11-02] MEDS: INSULIN ASPART 100 UNITS/ML 3 ML PEN SC SCH ×4 (08:15→21:00)
[2017-11-02] MEDS: INSULIN GLARGINE SOLOSTAR 100 UNITS/ML 3 ML PEN SC SCH ×2 (08:15→21:27)
[2017-11-02] MEDS: LACTOBACILLUS ACIDOPHILUS (FLORANEX) TAB PO SCH ×3 (09:13→17:12)
[2017-11-02] MEDS: POTASSIUM CHLORIDE 20 MEQ TABCR PO SCH ×2 (09:14→21:13)
[2017-11-02] MEDS: RIVAROXABAN 10 MG TAB PO SCH (09:14)
[2017-11-02] MEDS: CHOLECALCIFEROL 400 INTER.UNIT TAB PO SCH (09:14)
[2017-11-02] MEDS: ESCITALOPRAM OXALATE 20 MG TAB PO SCH (09:14)
[2017-11-02] MEDS: GUAIFENESIN 600 MG TABCR PO SCH ×2 (09:14→21:13)
[2017-11-02] MEDS: FLUTICASONE PROPIONATE NA SPR 16 GM BTL NAE SCH (09:15)
[2017-11-02] MEDS: ROFLUMILAST 500 MCG TAB PO SCH (09:44)
[2017-11-02] MEDS ORDERED: COUGH DROP (SUGAR FREE) LOZ 24 LOZ/1 BOX LOZ ONE (12:16)
--- NOTE | 2017-11-02 16:23 | Family Medicine Progress Note ---
Progress Note Date of Service Nov 02, 2017. Subjective Pt evaluation today including: conversation w/ patient, physical exam, chart review, lab review, review of inpatient medication list Pain: patient denies pain this AM PO Intake: Tolerating diet well Voiding: no voiding problems Patient reports her breathing is improved today compared to yesterday. She has been able to transfer herself out of bed to commode without assistance. Constitutional: + weakness, No fever, No chills, No sweats, No weight loss, No fatigue, No problem reported Respiratory: + cough, + wheezing, + shortness of breath, + dyspnea on exertion, + dyspnea at rest Cardiovascular: No chest pain, No edema, No claudication, No palpitations, No problem reported Abdomen: No pain, No nausea, No vomiting, No diarrhea, No constipation, No GI bleeding, No problem reported All Other Systems: Reviewed and Negative Medications Current Inpatient Medications Medications (Trade) Dose Ordered Sig/Lulú Route Start Time Stop Time Status Last Admin Dose Admin Albuterol Sulfate (Ventolin 0.083% 2.5MG/3ML Neb) 2.5 mg Q4 PRN INH 10/28/17 21:00 11/27/17 20:59 11/02/17 02:42 2.5 MG Bisacodyl (Dulcolax Tab) 10 mg DAILY PRN PO 10/28/17 21:00 11/27/17 20:59 Cholecalciferol (Vitamin D Tab) 400 inter.unit QAM PO 10/29/17 09:00 11/28/17 08:59 11/02/17 09:14 400 INTER.UNIT Clonazepam (Klonopin Tab) 0.5 mg Q12H PRN PO 10/28/17 21:00 11/27/17 20:59 10/31/17 17:34 0.5 MG Escitalopram Oxalate (Lexapro Tab) 20 mg DAILY PO 10/29/17 09:00 11/28/17 08:59 11/02/17 09:14 20 MG Fluticasone Propionate (Flonase Nasal [place]) 1 sprays DAILY NANCY 10/29/17 09:00 11/28/17 08:59 11/02/17 09:15 1 SPRAYS Hydroxyzine HCl (Vistaril Tab) 10 mg TID PRN PO 10/28/17 21:00 11/27/17 20:59 Levothyroxine Sodium (Synthroid Tab) 25 mcg DAILYBB PO 10/29/17 06:30 11/28/17 06:29 11/02/17 05:11 25 MCG Montelukast Sodium (Singulair Tab) 10 mg HS PO 10/28/17 21:00 11/27/17 20:59 11/01/17 20:10 10 MG Nortriptyline HCl (Pamelor Cap) 10 mg HS PO 10/28/17 21:00 11/27/17 20:59 11/01/17 20:11 10 MG Potassium Chloride (Klor-Con Tab) 20 meq BID PO 10/28/17 21:00 11/27/17 20:59 11/02/17 09:14 20 MEQ Quetiapine Fumarate (seroQUEL TAB) 400 mg HS PO 10/28/17 21:00 11/27/17 20:59 11/01/17 20:10 400 MG Rivaroxaban (Xarelto Tab) 20 mg QAM PO 10/29/17 09:00 11/28/17 08:59 11/02/17 09:14 20 MG Roflumilast (Daliresp Tab) 500 mcg DAILY PO 10/29/17 09:00 11/28/17 08:59 11/02/17 09:44 500 MCG Acetaminophen (Tylenol Tab) 650 mg Q4H PRN PO 10/28/17 21:15 11/27/17 21:14 Al Hydrox/Mg Hydrox/Simethicone (Maalox Max Susp) 15 ml Q4H PRN PO 10/28/17 21:15 11/27/17 21:14 Magnesium Hydroxide (Milk Of Magnesia Susp) 30 ml Q12H PRN PO 10/28/17 21:15 11/27/17 21:14 Zolpidem Tartrate (Ambien Tab) 5 mg HSZ PRN PO 10/28/17 21:15 11/27/17 21:14 Ondansetron HCl (Zofran Inj) 4 mg Q6H PRN IV 10/28/17 21:15 11/27/17 21:14 Polyethylene (Miralax Powder Packet) 17 gm DAILY PRN PO 10/28/17 21:15 11/27/17 21:14 Glucose (Glucose 40% Gel) 15-30 GRAMS 15 GRAMS... UD PRN PO 10/28/17 21:15 11/27/17 21:14 Glucose (Glucose Chew Tab) 4-8 Tablets 4 Tabl... UD PRN PO 10/28/17 21:15 11/27/17 21:14 Dextrose (Dextrose 50% 50ML Syringe) 25-50ML OF 50% DW IV FOR... UD PRN IV 10/28/17 21:15 11/27/17 21:14 Glucagon (Glucagon Inj) 1 mg UD PRN SQ 10/28/17 21:15 11/27/17 21:14 Miscellaneous Information (Consult Glycemic Management Pharmacy) 1 ea UD PRN N/A 10/28/17 21:30 11/27/17 21:29 Azithromycin 500 mg/Dextrose 255 ml @ 125 mls/hr Q24H IV 10/29/17 17:00 11/05/17 16:59 11/01/17 17:39 125 MLS/HR Ceftriaxone Sodium 1 gm/ Dextrose 50 ml @ 100 mls/hr Q24H IV 10/29/17 00:00 11/05/17 00:00 11/01/17 23:33 100 MLS/HR Lactobacillus Acidophilus (Floranex Tab) 4 tab TIDM PO 10/29/17 08:00 11/28/17 07:59 11/02/17 09:13 4 TAB Insulin Aspart (novoLOG ASPART) SLIDING SCALE If C... ACHS SC 10/29/17 21:00 11/28/17 20:59 11/02/17 08:15 8 UNITS Guaifenesin (Mucinex Contr Rel Tab) 1,200 mg Q12 PO 10/30/17 13:30 11/29/17 13:29 11/02/17 09:14 1,200 MG Albuterol/ Ipratropium (Duoneb) 3 ml Q4RWA INH 10/31/17 08:00 11/30/17 07:59 11/02/17 06:56 3 ML Prednisone (PredniSONE TAB) 30 mg BID PO 11/02/17 09:00 12/02/17 08:59 11/02/17 09:14 30 MG Insulin Glargine (Lantus Solostar Pen) SEE PROTOCOL TEXT BID SC 11/01/17 21:00 12/01/17 20:59 11/02/17 08:15 25 UNITS Objective Vital Signs Date Time Temp Pulse Resp B/P (MAP) Pulse Ox O2 Delivery O2 Flow Rate FiO2 11/02/17 07:53 37.1 77 18 151/72 (98) 95 Nasal Cannula 3.0 11/02/17 06:56 74 22 98 Nasal Cannula 3.0 11/02/17 04:00 Nasal Cannula 3.0 11/02/17 03:59 37.0 73 20 124/69 (87) 98 Nasal Cannula 3.0 11/02/17 02:42 85 20 97 Nasal Cannula 3.0 11/02/17 00:00 Nasal Cannula 3.0 11/01/17 23:35 36.7 65 18 117/71 (86) 100 2.0 11/01/17 22:57 86 18 98 Nasal Cannula 3.0 11/01/17 20:00 Nasal Cannula 3.0 BiPAP 11/01/17 19:45 37.1 82 20 151/78 (102) 96 Nasal Cannula 3.0 11/01/17 19:07 84 18 96 Nasal Cannula 3.0 11/01/17 16:00 Nasal Cannula 3.0 11/01/17 15:16 37.1 73 20 133/65 (87) 93 Nasal Cannula 2.0 11/01/17 15:01 82 18 96 Nasal Cannula 3.0 11/01/17 12:00 Nasal Cannula 3.0 11/01/17 11:12 85 18 95 Nasal Cannula 3.0 11/01/17 11:08 37.2 82 20 151/77 (101) 96 Nasal Cannula 3.0 Physical Exam General Appearance: WD/WN, no apparent distress Eyes: normal inspection, PERRL, EOMI, sclerae normal ENT: hearing grossly normal, pharynx normal Neck: supple, no adenopathy, no carotid bruits, trachea midline Respiratory/Chest: chest non-tender, no respiratory distress, no accessory muscle use, + decreased breath sounds, + wheezing (expiratory, diffuse) Cardiovascular: regular rate, rhythm, no edema, no JVD, no murmur Abdomen: normal bowel sounds, non tender, soft Extremities: non-tender, normal inspection, no pedal edema, no calf tenderness 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, no motor/sensory deficits, alert, normal mood/affect, oriented x 3 Skin: normal color, warm/dry, no rash Laboratory Results Last Resulted 10/28/17 17:23 Red Blood Count 3.90, Mean Corpuscular Volume 80.3, Mean Corpuscular Hemoglobin 25.9, Mean Corpuscular Hemoglobin Concent 32.3, Mean Platelet Volume 8.2, Neutrophils (%) (Auto) 72.3, Lymphocytes (%) (Auto) 13.6, Monocytes (%) (Auto) 11.6, Eosinophils (%) (Auto) 1.4, Basophils (%) (Auto) 0.5, Neutrophils # (Auto ) 7.74, Lymphocytes # (Auto) 1.46, Monocytes # (Auto) 1.24, Eosinophils # (Auto ) 0.15, Basophils # (Auto) 0.05 Last Resulted 10/28/17 17:23 11/01/17 05:08 Assessment and Plan Mini is a 72 yo female who presented to the ED with dyspnea, wheezing, fever, chills, and diarrhea. Her PMH is significant for chronic respiratory failure on 2 L oxygen at home secondary to COPD, also patient had pulmonary embolism on 2015 currently on Xarelto, diastolic CHF last echo was 09/2016 that showed normal EF. Acute on chronic hypoxic respiratory failure COPD exacerbation Upper respiratory tract infection symptoms suggestive of influenza Obesity hypoventilation syndrome VIJAY - continue nebs, - steroid taper on discharge (currently 30 mg PO BID), - antibiotics (azithro/ceftriaxone) can be DCd tomorrow, - supportive care, reportedly not candidate for home bipap with current CO2 level - appreciate pulmonary input - tried to help "ease" her into end of life type decision making discussing goals of care concepts Diastolic congestive heart failure - stable at this time no noted deterioration, stable Diabetes mellitus type 2, insulin requiring - A1C = 8.8 - ongoing insulin management, sugars have been reasonable History of pulmonary embolism - cont on Xarelto, no new complaints or problems no bleeding Hypothyroidism - Cont levothyroxine Vit D Deficiency - Cont supplementation DVT ppx: Continue Xarelto Disposition: transfer to med/surg from tele; From home, goal would be return home, possibly tomorrow Code: Full Resident Physician Supervision Note: I interviewed and examined the patient. Discussed with Dr. Garrett and agree with findings and plan as documented in the note. Any exceptions or clarifications are listed here: None Documented By: Jose Osorio feeling better sitting up feels like she is breathing easier vitals noted nad still w some accessory muscles but this appears closer to her baseline, wheezes still present but less than before severe COPD / acute on chronic hypoxic respiratory failure -current exacerbation slowly improving, continue current care hopefully home tomorrow w ongoing improvement - discussing goals of care as above noted slowly trying to help her get comfortable with this type of decision making Resident Tracking Resident Involvement: Resident Care Provided Care Provided: Adult Hospital Medicine
[2017-11-02] MEDS: AZITHROMYCIN 250 MG TAB PO SCH (17:12)
--- NOTE | 2017-11-02 19:25 | Pulmonology Progress Note ---
Pulmonary Progress Note Date of Service Nov 02, 2017. Attending Dr. Howard Subjective The patient feels better, she is using her home O2, at the same level, her O2 saturation has been maintained at 94%. She denies any events overnight. Objective Patient was awake alert able to complete full sentences not showing signs of respiratory insufficiency: Vital signs: Stable on 3 liters nasal cannula Respiratory: Decreased breath sounds globally Cardiac: S1-S2 distant heart sounds Abdomen: Positive bowel sounds soft nontender Extremities: Minimal edema at the dependent regions Vital signs are stable on 11/02/2017. The patient denies any chest pain at the moment, no shortness of breath, no JVP, distant breath sounds bilaterally without wheezing, S1-S2 regular rate and rhythm, no edema. Assessment & Plan 72-year-old female who admitted for acute on chronic respiratory insufficiency/ failure: 1. Respiratory insufficiency: Once again this patient has been admitted approximately 15 times in the last year and a half for respiratory failure. Clinically will describe her as very severe COPD even though we do not have pulmonary function studies for verification. I am attempting to simplify her current COPD regimen by placing most of her medications to nebulizers as she is unable to perform proper inhaler technique. I also discontinued her theophylline but continued her azithromycin. After re-evaluating this patient her VBG corrected PA CO2 is only 38 which does not meet the Medicare requirements are indications for BiPAP. Even though clinically do believe this patient could benefit from BiPAP she does have to have an awake PA CO2 greater than 52. I also will discontinue her IV steroids starting tomorrow moaning and initiate her on oral prednisone. 2. Echocardiogram: I have considered obtaining an echocardiogram to evaluate for signs of right ventricular strain/cor pulmonale but as the patient is not ready for hospice conversation obtain this study would most likely not benefit her care. Pulmonary assessment: #1 chronic respiratory failure secondary to COPD. #2 COPD, gold level III and moving towards goal #4 as she become very debilitated. #3 cor pulmonale based on the findings on the echo. #4 pulmonary hypertension, WHO class III. Plan: #1 agree with assessment and plan my colleague Dr. Meyers. #2 continue with current regimen including steroids, bronchodilator and oxygen. #3 pulmonary rehabilitation as an inpatient would be helpful. #4 patient was to be full code. Thank you, will follow as needed. Data Medications: Current Inpatient Medications Medications (Trade) Dose Ordered Sig/Lulú Route Start Time Stop Time Status Last Admin Dose Admin Albuterol Sulfate (Ventolin 0.083% 2.5MG/3ML Neb) 2.5 mg Q4 PRN INH 10/28/17 21:00 11/27/17 20:59 11/02/17 02:42 2.5 MG Bisacodyl (Dulcolax Tab) 10 mg DAILY PRN PO 10/28/17 21:00 11/27/17 20:59 Cholecalciferol (Vitamin D Tab) 400 inter.unit QAM PO 10/29/17 09:00 11/28/17 08:59 11/02/17 09:14 400 INTER.UNIT Clonazepam (Klonopin Tab) 0.5 mg Q12H PRN PO 10/28/17 21:00 11/27/17 20:59 10/31/17 17:34 0.5 MG Escitalopram Oxalate (Lexapro Tab) 20 mg DAILY PO 10/29/17 09:00 11/28/17 08:59 11/02/17 09:14 20 MG Fluticasone Propionate (Flonase Nasal [place]) 1 sprays DAILY NANCY 10/29/17 09:00 11/28/17 08:59 11/02/17 09:15 1 SPRAYS Hydroxyzine HCl (Vistaril Tab) 10 mg TID PRN PO 10/28/17 21:00 11/27/17 20:59 Levothyroxine Sodium (Synthroid Tab) 25 mcg DAILYBB PO 10/29/17 06:30 11/28/17 06:29 11/02/17 05:11 25 MCG Montelukast Sodium (Singulair Tab) 10 mg HS PO 10/28/17 21:00 11/27/17 20:59 11/01/17 20:10 10 MG Nortriptyline HCl (Pamelor Cap) 10 mg HS PO 10/28/17 21:00 11/27/17 20:59 11/01/17 20:11 10 MG Potassium Chloride (Klor-Con Tab) 20 meq BID PO 10/28/17 21:00 11/27/17 20:59 11/02/17 09:14 20 MEQ Quetiapine Fumarate (seroQUEL TAB) 400 mg HS PO 10/28/17 21:00 11/27/17 20:59 11/01/17 20:10 400 MG Rivaroxaban (Xarelto Tab) 20 mg QAM PO 10/29/17 09:00 11/28/17 08:59 11/02/17 09:14 20 MG Roflumilast (Daliresp Tab) 500 mcg DAILY PO 10/29/17 09:00 11/28/17 08:59 11/02/17 09:44 500 MCG Acetaminophen (Tylenol Tab) 650 mg Q4H PRN PO 10/28/17 21:15 11/27/17 21:14 Al Hydrox/Mg Hydrox/Simethicone (Maalox Max Susp) 15 ml Q4H PRN PO 10/28/17 21:15 11/27/17 21:14 Magnesium Hydroxide (Milk Of Magnesia Susp) 30 ml Q12H PRN PO 10/28/17 21:15 11/27/17 21:14 Zolpidem Tartrate (Ambien Tab) 5 mg HSZ PRN PO 10/28/17 21:15 11/27/17 21:14 Ondansetron HCl (Zofran Inj) 4 mg Q6H PRN IV 10/28/17 21:15 11/27/17 21:14 Polyethylene (Miralax Powder Packet) 17 gm DAILY PRN PO 10/28/17 21:15 11/27/17 21:14 Glucose (Glucose 40% Gel) 15-30 GRAMS 15 GRAMS... UD PRN PO 10/28/17 21:15 11/27/17 21:14 Glucose (Glucose Chew Tab) 4-8 Tablets 4 Tabl... UD PRN PO 10/28/17 21:15 11/27/17 21:14 Dextrose (Dextrose 50% 50ML Syringe) 25-50ML OF 50% DW IV FOR... UD PRN IV 10/28/17 21:15 11/27/17 21:14 Glucagon (Glucagon Inj) 1 mg UD PRN SQ 10/28/17 21:15 11/27/17 21:14 Miscellaneous Information (Consult Glycemic Management Pharmacy) 1 ea UD PRN N/A 10/28/17 21:30 11/27/17 21:29 Ceftriaxone Sodium 1 gm/ Dextrose 50 ml @ 100 mls/hr Q24H IV 10/29/17 00:00 11/05/17 00:00 11/01/17 23:33 100 MLS/HR Lactobacillus Acidophilus (Floranex Tab) 4 tab TIDM PO 10/29/17 08:00 11/28/17 07:59 11/02/17 17:12 4 TAB Insulin Aspart (novoLOG ASPART) SLIDING SCALE If C... ACHS SC 10/29/17 21:00 11/28/17 20:59 11/02/17 17:15 17 UNITS Guaifenesin (Mucinex Contr Rel Tab) 1,200 mg Q12 PO 10/30/17 13:30 11/29/17 13:29 11/02/17 09:14 1,200 MG Albuterol/ Ipratropium (Duoneb) 3 ml Q4RWA INH 10/31/17 08:00 11/30/17 07:59 11/02/17 19:05 3 ML Prednisone (PredniSONE TAB) 30 mg BID PO 11/02/17 09:00 12/02/17 08:59 11/02/17 09:14 30 MG Insulin Glargine (Lantus Solostar Pen) SEE PROTOCOL TEXT BID SC 11/01/17 21:00 12/01/17 20:59 11/02/17 08:15 25 UNITS Azithromycin (Zithromax Tab) 500 mg DAILY@1700 PO 11/02/17 17:00 11/04/17 17:01 11/02/17 17:12 500 MG I & O: 24-Hour Column 11/03/17 08:00 Intake Total 1050 ml Output Total 1250 ml Balance -200 ml Vital Signs: Date Time Temp Pulse Resp B/P (MAP) Pulse Ox O2 Delivery O2 Flow Rate FiO2 11/02/17 19:07 100 20 95 Nasal Cannula 3.0 11/02/17 16:09 37.2 100 18 144/80 (101) 94 Nasal Cannula 3.0 11/02/17 15:43 95 Nasal Cannula 3.0 11/02/17 15:19 100 22 94 Nasal Cannula 3.0 11/02/17 12:00 Nasal Cannula 3.0 11/02/17 11:04 103 18 95 Nasal Cannula 3.0 11/02/17 08:00 Nasal Cannula 3.0 11/02/17 07:53 37.1 77 18 151/72 (98) 95 Nasal Cannula 3.0 11/02/17 06:56 74 22 98 Nasal Cannula 3.0 11/02/17 04:00 Nasal Cannula 3.0 11/02/17 03:59 37.0 73 20 124/69 (87) 98 Nasal Cannula 3.0 11/02/17 02:42 85 20 97 Nasal Cannula 3.0 11/02/17 00:00 Nasal Cannula 3.0 11/01/17 23:35 36.7 65 18 117/71 (86) 100 2.0 11/01/17 22:57 86 18 98 Nasal Cannula 3.0 11/01/17 20:00 Nasal Cannula 3.0 BiPAP 11/01/17 19:45 37.1 82 20 151/78 (102) 96 Nasal Cannula 3.0 Laboratory Results: Last 24 Hours Test 11/01/17 20:05 11/02/17 07:46 11/02/17 11:30 11/02/17 16:55 Bedside Glucose 252 mg/dl 89 mg/dl 121 mg/dl 189 mg/dl
[2017-11-02] MEDS: MONTELUKAST SOD 10 MG TAB PO SCH (21:12)
[2017-11-02] MEDS: NORTRIPTYLINE HCL 10 MG CAP PO SCH (21:13)
[2017-11-02] MEDS: QUETIAPINE FUMARATE 200 MG TAB PO SCH (21:13)
[2017-11-02] MEDS: CEFTRIAXONE SOD INJ 1 GM in DEXTROSE 5% ADD-VANTAGE 50ML 50 ML IV SCH (23:19)
[2017-11-03] VITALS (11 sets, daily range): BP systolic 120–126; BP diastolic 64–75; PULSE 62–88; TEMP 36.4–37; O2SAT 94–99
[2017-11-03] MEDS: ALBUTEROL 0.083% NEBU SOLN 3 ML VIAL INH PRN ×3 (03:33→13:32)
[2017-11-03] MEDS: LEVOTHYROXINE 25 MCG TAB PO SCH (06:22)
[2017-11-03] MEDS: ALBUT/IPRATROP 3MG/0.5MG NEB 3 ML VIAL INH SCH ×5 (06:53→23:11)
[2017-11-03] MEDS: LACTOBACILLUS ACIDOPHILUS (FLORANEX) TAB PO SCH ×3 (08:20→17:17)
[2017-11-03] MEDS: RIVAROXABAN 10 MG TAB PO SCH (08:20)
[2017-11-03] MEDS: ROFLUMILAST 500 MCG TAB PO SCH (08:20)
[2017-11-03] MEDS: POTASSIUM CHLORIDE 20 MEQ TABCR PO SCH ×2 (08:20→21:42)
[2017-11-03] MEDS: FLUTICASONE PROPIONATE NA SPR 16 GM BTL NAE SCH (08:21)
[2017-11-03] MEDS: INSULIN ASPART 100 UNITS/ML 3 ML PEN SC SCH ×4 (08:22→21:50)
[2017-11-03] MEDS: INSULIN GLARGINE SOLOSTAR 100 UNITS/ML 3 ML PEN SC SCH ×2 (08:22→21:50)
[2017-11-03] MEDS: ESCITALOPRAM OXALATE 20 MG TAB PO SCH (09:25)
[2017-11-03] MEDS: CHOLECALCIFEROL 400 INTER.UNIT TAB PO SCH (09:25)
[2017-11-03] MEDS: GUAIFENESIN 600 MG TABCR PO SCH ×2 (09:25→21:41)
--- NOTE | 2017-11-03 11:25 | Pharmacy Progress Note ---
Pharmacy Glycemic Short Note 2 Date of Service Nov 03, 2017. OUTPATIENT ANTIDIABETIC REGIMEN: * NPH 20 units qAM * Metformin 1 gm BID * A1c 8.8% on 10/29/17 ASSESSMENT: * Patient received 86 units of insulin yesterday, with well-controlled BSGs. * Insulin needs have decreased significantly with the tapering of steroids. * Lantus has been reduced and Novolog parameters have been loosened. * Will continue to adjust regimen as steroids taper. Currently the patient is receiving Prednisone 30mg BID. PLAN FOR INPATIENT GLYCEMIC CONTROL: * Continue to hold outpatient oral diabetes medications * Basal insulin * Lantus per scale * 25 units BID (BSG < 120) * 30 units BID (BSG 120-140) * 35 units BID (BSG > 140) * Bolus insulin - no change * NovoLog per scale ACHS * Goal Range: Low 120 mg/dL - High 140 mg/dL * Correction Factor: 20 mg/dL/unit * Nutritional / Prandial insulin per carb ratio of 1 unit per 5 grams CHO consumed DISCHARGE PLANNING: * Current A1c (8.8%) indicates slightly sub-optimal glycemic control. A reasonable goal for a 72yo patient might be closer to ~7.5%. * Might consider adjusting patient's insulin regimen on discharge? * Recommend close f/u with PCP after discharge to titrate regimen to optimize A1c.
[2017-11-03] MEDS: CLONAZEPAM 0.5 MG TAB PO PRN (13:44)
[2017-11-03] MEDS: AZITHROMYCIN 250 MG TAB PO SCH (17:18)
[2017-11-03] MEDS ORDERED: NURSING DECISION MEDICATION ORDER SCH (17:30)
[2017-11-03] MEDS ORDERED: COUGH DROP (SUGAR FREE) LOZ 24 LOZ/1 BOX LOZ PRN (17:30)
[2017-11-03] MEDS ORDERED: NURSING VERBAL MED ORDER ONE (20:00)
[2017-11-03] MEDS ORDERED: MICONAZOLE NITRATE POWDER 43 GM EXT PRN (20:15)
[2017-11-03] MEDS: BusPIRone 15 MG TAB PO SCH (21:39)
[2017-11-03] MEDS: NORTRIPTYLINE HCL 10 MG CAP PO SCH (21:41)
[2017-11-03] MEDS: MONTELUKAST SOD 10 MG TAB PO SCH (21:42)
[2017-11-03] MEDS: QUETIAPINE FUMARATE 200 MG TAB PO SCH (21:42)
--- NOTE | 2017-11-03 21:49 | Family Medicine Progress Note ---
Progress Note Date of Service Nov 03, 2017. Subjective Pt evaluation today including: conversation w/ patient, physical exam, chart review, lab review Pain: no pain today PO Intake: tolerating well Voiding: no voiding problems Patient states she is more short of breath today Constitutional: No fever, No chills, No sweats, No weight loss, No weakness , No fatigue, No problem reported Respiratory: + wheezing, + shortness of breath, + dyspnea on exertion, + dyspnea at rest Cardiovascular: No chest pain, No orthopnea, No PND, No edema, No claudication, No palpitations, No problem reported Abdomen: No pain, No nausea, No vomiting, No diarrhea, No constipation, No GI bleeding, No problem reported Psychiatric: + anxiety All Other Systems: Reviewed and Negative Medications Current Inpatient Medications Medications (Trade) Dose Ordered Sig/Lulú Route Start Time Stop Time Status Last Admin Dose Admin Albuterol Sulfate (Ventolin 0.083% 2.5MG/3ML Neb) 2.5 mg Q4 PRN INH 10/28/17 21:00 11/27/17 20:59 11/03/17 13:32 2.5 MG Bisacodyl (Dulcolax Tab) 10 mg DAILY PRN PO 10/28/17 21:00 11/27/17 20:59 Cholecalciferol (Vitamin D Tab) 400 inter.unit QAM PO 10/29/17 09:00 11/28/17 08:59 11/03/17 09:25 400 INTER.UNIT Clonazepam (Klonopin Tab) 0.5 mg Q12H PRN PO 10/28/17 21:00 11/27/17 20:59 11/03/17 13:44 0.5 MG Escitalopram Oxalate (Lexapro Tab) 20 mg DAILY PO 10/29/17 09:00 11/28/17 08:59 11/03/17 09:25 20 MG Fluticasone Propionate (Flonase Nasal [place]) 1 sprays DAILY NANCY 10/29/17 09:00 11/28/17 08:59 11/03/17 08:21 1 SPRAYS Hydroxyzine HCl (Vistaril Tab) 10 mg TID PRN PO 10/28/17 21:00 11/27/17 20:59 Future Hold Levothyroxine Sodium (Synthroid Tab) 25 mcg DAILYBB PO 10/29/17 06:30 11/28/17 06:29 11/03/17 06:22 25 MCG Montelukast Sodium (Singulair Tab) 10 mg HS PO 10/28/17 21:00 11/27/17 20:59 11/02/17 21:12 10 MG Nortriptyline HCl (Pamelor Cap) 10 mg HS PO 10/28/17 21:00 11/27/17 20:59 11/02/17 21:13 10 MG Potassium Chloride (Klor-Con Tab) 20 meq BID PO 10/28/17 21:00 11/27/17 20:59 11/03/17 08:20 20 MEQ Quetiapine Fumarate (seroQUEL TAB) 400 mg HS PO 10/28/17 21:00 11/27/17 20:59 11/02/17 21:13 400 MG Rivaroxaban (Xarelto Tab) 20 mg QAM PO 10/29/17 09:00 11/28/17 08:59 11/03/17 08:20 20 MG Roflumilast (Daliresp Tab) 500 mcg DAILY PO 10/29/17 09:00 11/28/17 08:59 11/03/17 08:20 500 MCG Acetaminophen (Tylenol Tab) 650 mg Q4H PRN PO 10/28/17 21:15 11/27/17 21:14 Al Hydrox/Mg Hydrox/Simethicone (Maalox Max Susp) 15 ml Q4H PRN PO 10/28/17 21:15 11/27/17 21:14 Magnesium Hydroxide (Milk Of Magnesia Susp) 30 ml Q12H PRN PO 10/28/17 21:15 11/27/17 21:14 Zolpidem Tartrate (Ambien Tab) 5 mg HSZ PRN PO 10/28/17 21:15 11/27/17 21:14 Ondansetron HCl (Zofran Inj) 4 mg Q6H PRN IV 10/28/17 21:15 11/27/17 21:14 Polyethylene (Miralax Powder Packet) 17 gm DAILY PRN PO 10/28/17 21:15 11/27/17 21:14 Glucose (Glucose 40% Gel) 15-30 GRAMS 15 GRAMS... UD PRN PO 2/14/18 21:15 11/27/17 21:14 Glucose (Glucose Chew Tab) 4-8 Tablets 4 Tabl... UD PRN PO 10/28/17 21:15 11/27/17 21:14 Dextrose (Dextrose 50% 50ML Syringe) 25-50ML OF 50% DW IV FOR... UD PRN IV 10/28/17 21:15 11/27/17 21:14 Glucagon (Glucagon Inj) 1 mg UD PRN SQ 10/28/17 21:15 11/27/17 21:14 Miscellaneous Information (Consult Glycemic Management Pharmacy) 1 ea UD PRN N/A 10/28/17 21:30 11/27/17 21:29 Ceftriaxone Sodium 1 gm/ Dextrose 50 ml @ 100 mls/hr Q24H IV 10/29/17 00:00 11/05/17 00:00 11/02/17 23:19 100 MLS/HR Lactobacillus Acidophilus (Floranex Tab) 4 tab TIDM PO 10/29/17 08:00 11/28/17 07:59 11/03/17 17:17 4 TAB Insulin Aspart (novoLOG ASPART) SLIDING SCALE If C... ACHS SC 10/29/17 21:00 11/28/17 20:59 11/03/17 17:23 9 UNITS Guaifenesin (Mucinex Contr Rel Tab) 1,200 mg Q12 PO 10/30/17 13:30 11/29/17 13:29 11/03/17 09:25 1,200 MG Albuterol/ Ipratropium (Duoneb) 3 ml Q4RWA INH 10/31/17 08:00 11/30/17 07:59 11/03/17 19:29 3 ML Prednisone (PredniSONE TAB) 30 mg BID PO 11/02/17 09:00 12/02/17 08:59 11/03/17 08:20 30 MG Insulin Glargine (Lantus Solostar Pen) SEE PROTOCOL TEXT BID SC 11/01/17 21:00 12/01/17 20:59 11/03/17 08:22 35 UNITS Azithromycin (Zithromax Tab) 500 mg DAILY@1700 PO 11/02/17 17:00 11/04/17 17:01 11/03/17 17:18 500 MG Buspirone HCl (BusPAR TAB) 7.5 mg BID PO 11/03/17 21:00 12/03/17 20:59 Menthol (Nice Kena) 1 kena PRN PRN KENA 11/03/17 17:30 12/03/17 17:29 11/03/17 18:23 1 KENA Miconazole Nitrate (Desenex Powder) 1 appln PRN PRN EXT 11/03/17 20:15 12/03/17 20:14 Objective Vital Signs Date Time Temp Pulse Resp B/P (MAP) Pulse Ox O2 Delivery O2 Flow Rate FiO2 11/03/17 19:30 68 24 96 Nasal Cannula 5.0 11/03/17 15:52 36.4 69 20 120/64 (82) 98 11/03/17 15:51 68 20 96 BiPAP/CPAP 3.0 11/03/17 15:51 97 BiPAP 11/03/17 14:14 76 97 3.0 11/03/17 13:32 82 22 97 Nasal Cannula 4.0 11/03/17 09:51 86 20 98 Nasal Cannula 3.0 11/03/17 08:00 Nasal Cannula 3.0 11/03/17 07:39 36.8 73 20 121/75 (90) 99 Nasal Cannula 4.0 11/03/17 06:53 72 20 98 Nasal Cannula 4.0 11/03/17 03:34 88 20 94 Nasal Cannula 3.0 11/03/17 00:00 Nasal Cannula 3.0 11/02/17 23:54 36.9 76 18 107/61 (76) 99 Nasal Cannula 3.0 11/02/17 23:34 98 20 95 Nasal Cannula 3.0 Physical Exam General Appearance: WD/WN, no apparent distress Eyes: normal inspection, PERRL, EOMI, sclerae normal ENT: hearing grossly normal, pharynx normal Neck: supple, no adenopathy, no carotid bruits, trachea midline Respiratory/Chest: chest non-tender, no respiratory distress, no accessory muscle use, + decreased breath sounds Cardiovascular: regular rate, rhythm, no edema, no gallop, no JVD, no murmur Abdomen: normal bowel sounds, non tender, soft Extremities: normal range of motion, non-tender, normal inspection, no pedal edema, no calf tenderness 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, no motor/sensory deficits, alert, normal mood/affect, oriented x 3 Skin: normal color, warm/dry, no rash Laboratory Results Last Resulted 10/28/17 17:23 Red Blood Count 3.90, Mean Corpuscular Volume 80.3, Mean Corpuscular Hemoglobin 25.9, Mean Corpuscular Hemoglobin Concent 32.3, Mean Platelet Volume 8.2, Neutrophils (%) (Auto) 72.3, Lymphocytes (%) (Auto) 13.6, Monocytes (%) (Auto) 11.6, Eosinophils (%) (Auto) 1.4, Basophils (%) (Auto) 0.5, Neutrophils # (Auto ) 7.74, Lymphocytes # (Auto) 1.46, Monocytes # (Auto) 1.24, Eosinophils # (Auto ) 0.15, Basophils # (Auto) 0.05 Last Resulted 10/28/17 17:23 11/01/17 05:08 Assessment and Plan Mini is a 72 yo female who presented to the ED with dyspnea, wheezing, fever, chills, and diarrhea. Her PMH is significant for chronic respiratory failure on 2 L oxygen at home secondary to COPD, also patient had pulmonary embolism on 2015 currently on Xarelto, diastolic CHF last echo was 09/2016 that showed normal EF. Acute on chronic hypoxic respiratory failure COPD exacerbation Upper respiratory tract infection symptoms suggestive of influenza Obesity hypoventilation syndrome VIJAY - continue nebs, - steroid taper on discharge (currently 30 mg PO BID), - antibiotics (azithro/ceftriaxone) can be DCd tomorrow, - supportive care, reportedly not candidate for home bipap with current CO2 level - appreciate pulmonary input - tried to help "ease" her into end of life type decision making discussing goals of care concepts - pt required bipap this afternoon due to increased work of breathing; consider adding antii-anxiety med prn Diastolic congestive heart failure - stable at this time no noted deterioration, stable Diabetes mellitus type 2, insulin requiring - A1C = 8.8 - ongoing insulin management, sugars have been reasonable History of pulmonary embolism - cont on Xarelto, no new complaints or problems no bleeding Hypothyroidism - Cont levothyroxine Vit D Deficiency - Cont supplementation DVT ppx: Continue Xarelto Disposition: tmed/surg; From home, goal would be return home, possibly tomorrow Code: Full Resident Physician Supervision Note: I interviewed and examined the patient. Discussed with Dr. Garrett and agree with findings and plan as documented in the note. Any exceptions or clarifications are listed here: None Documented By: Jose Osorio feeling a little worse a little more sob - thinks it's the heat vitals noted fatigued, mildly dyspnic less wheeze but does have diminisehd air entry cOPD exacerbation / acute on chronic hypoxic respiratory failure- bipap for now to rest since heat seems to have affected her - otherwise continue current care Resident Tracking Resident Involvement: Resident Care Provided Care Provided: Adult Hospital Medicine
[2017-11-03] MEDS: CEFTRIAXONE SOD INJ 1 GM in DEXTROSE 5% ADD-VANTAGE 50ML 50 ML IV SCH (23:30)
[2017-11-04 03:08] VITALS: PULSE 88; O2SAT 94
[2017-11-04] MEDS: ALBUT/IPRATROP 3MG/0.5MG NEB 3 ML VIAL INH SCH ×4 (03:08→15:22)
[2017-11-04] MEDS: LEVOTHYROXINE 25 MCG TAB PO SCH (06:21)
[2017-11-04 06:47] VITALS: BP 104/57; PULSE 78; TEMP 36.9; O2SAT 97
[2017-11-04 07:09] VITALS: PULSE 92; O2SAT 95
[2017-11-04] MEDS: ROFLUMILAST 500 MCG TAB PO SCH (07:39)
[2017-11-04] MEDS: POTASSIUM CHLORIDE 20 MEQ TABCR PO SCH (07:39)
[2017-11-04] MEDS: GUAIFENESIN 600 MG TABCR PO SCH (07:39)
[2017-11-04] MEDS: ESCITALOPRAM OXALATE 20 MG TAB PO SCH (07:39)
[2017-11-04] MEDS: CHOLECALCIFEROL 400 INTER.UNIT TAB PO SCH (07:39)
[2017-11-04] MEDS: RIVAROXABAN 10 MG TAB PO SCH (07:39)
[2017-11-04] MEDS: FLUTICASONE PROPIONATE NA SPR 16 GM BTL NAE SCH (07:40)
[2017-11-04] MEDS: LACTOBACILLUS ACIDOPHILUS (FLORANEX) TAB PO SCH ×2 (07:40→12:05)
[2017-11-04] MEDS: BusPIRone 15 MG TAB PO SCH (07:40)
[2017-11-04] MEDS: INSULIN GLARGINE SOLOSTAR 100 UNITS/ML 3 ML PEN SC SCH (08:02)
[2017-11-04] MEDS: INSULIN ASPART 100 UNITS/ML 3 ML PEN SC SCH ×2 (08:02→12:12)
[2017-11-04 11:22] VITALS: PULSE 92; O2SAT 95
[2017-11-04] MEDS ORDERED: PRED10TA PO (13:11)
[2017-11-04] MEDS ORDERED: AZIT250T PO (13:11)
[2017-11-04] MEDS ORDERED: IPRASOL4 INH (13:11)
--- NOTE | 2017-11-04 13:15 | Discharge Instructions ---
Discharge Instructions Date of Service Nov 04, 2017. Admission Reason for Admission: Acute Respiratory Failure With Hypoxia Discharge Discharge Diagnosis / Problem: COPD exacerbation Discharge Goals Goal(s): Diagnostic testing, Therapeutic intervention Activity Recommendations Activity Limitations: resume your previous activity (with oxygen) . Instructions / Follow-Up Instructions / Follow-Up COPD exacerbation -improving -we'll do a prednisone taper 60mg down to 10mg --- because you've been having a rough run lately, we'll have you stay at 10mg prednisone daily until your PCP or pulmonary direct you otherwise -we'll treat with zithromax (azithromycin) as a preventative antibiotic 250mg three times a week to help cut down on troubles -we've kept your inhalers the same for now Current Hospital Diet Patient's current hospital diet: Diabetes Type 2 Diet Discharge Diet Recommended Diet: Diabetes Type 2 Diet Pending Studies Studies pending at discharge: no Laboratory Results Hemoglobin A1c Test 10/29/17 07:04 Range/Units Estimated Average Glucose 206 mg/dl Hemoglobin A1c 8.8 H 4.5-5.6 % Medical Emergencies . Who to Call and When: Medical Emergencies: If at any time you feel your situation is an emergency, please call 911 immediately. . Non-Emergent Contact Non-Emergency issues call your: Primary Care Provider, General Repairer . . "Provider Documentation" section prepared by Jose Osorio. . VTE Core Measure Inpt VTE Proph given/why not?: Other Anticoagulation
[2017-11-04 13:29] VITALS: BP 104/57; PULSE 92; TEMP 36.9; O2SAT 95
--- NOTE | 2017-11-04 13:38 | Pharmacy Progress Note ---
Pharmacy Glycemic Short Note 2 Date of Service Nov 04, 2017. OUTPATIENT ANTIDIABETIC REGIMEN: * NPH 20 units qAM * Metformin 1 gm BID * A1c 8.8% on 10/29/17 ASSESSMENT: 11/04/17: * Patient received 108 units of insulin yesterday, with fasting BSG 86 this morning. * Lantus dose decreased slightly today and Novolog parameters loosened in an attempt to avoid hypoglycemia. 11/03/17 * Patient received 86 units of insulin yesterday, with well-controlled BSGs. * Insulin needs have decreased significantly with the tapering of steroids. * Lantus has been reduced and Novolog parameters have been loosened. * Will continue to adjust regimen as steroids taper. Currently the patient is receiving Prednisone 30mg BID. PLAN FOR INPATIENT GLYCEMIC CONTROL: * Continue to hold outpatient oral diabetes medications * Basal insulin * Lantus 25 units SQ BID -- Give only 15 units if BSG less than 120 * Bolus insulin - no change * NovoLog per scale ACHS * Goal Range: Low 120 mg/dL - High 140 mg/dL * Correction Factor: 20 mg/dL/unit * Nutritional / Prandial insulin per carb ratio of 1 unit per 7 grams CHO consumed DISCHARGE PLANNING: * Current A1c (8.8%) indicates slightly sub-optimal glycemic control. A reasonable goal for a 72yo patient might be closer to ~7.5%. * Might consider adjusting patient's insulin regimen on discharge? * Recommend close f/u with PCP after discharge to titrate regimen to optimize A1c.
[2017-11-04 15:22] VITALS: PULSE 92; O2SAT 97
--- NOTE | 2017-11-04 17:36 | Discharge Summary ---
Discharge Summary Date of Service Nov 04, 2017. Discharge Summary Admission Date: Oct 28, 2017 at 21:09 Discharge Date: Nov 04, 2017 Discharge Disposition: Home with services Principal Diagnosis: acute on chronic hypoxic respiratory failure related to COPD Immunizations: Have You Had Influenza Vaccine: Yes History of Tetanus Vaccine?: Yes History of Pneumococcal: Yes History of Hepatitis B Vaccine: Unknown Consultations: pulmonary Medication Reconciliation New Medications: Azithromycin (Zithromax) 250 Mg Tab 250 MG PO UD, #20 TAB Prednisone (Prednisone) 10 Mg Tab 10 MG PO UD, #100 TAB 6 tabs x 2 days then 5 tabs x 2 days then 4 tabs x 2 days then 3 tabs x 2 days then 2 tabs x 2 days then 1 daily Ipratropium-Albuterol (Duoneb) 3 Ml Nebu 3 ML INH Q4RWA PRN for SOB/Wheezing, #120 UNIT Continued Medications: Albuterol Sulf (Albuterol Sulfate) 2.5 Mg/3 Ml Nebu 2.5 MG INH Q4 PRN for Shortness of Breath Arformoterol Tartrate (Brovana) 15 Mcg/2 Ml Neb 15 MCG INH BID, INHALER Bisacodyl (Bisacodyl EC) 5 Mg Tabec 10 MG PO DAILY PRN for Constipation for 30 Days, #60 TAB Budesonide (Pulmicort Respules 0.5MG/2ML) 0.5 Mg/2 Ml Nebu 0.5 MG INH BID, EA Calcium Carbonate-Cholecalcife (Oyster Shell Calcium + D) 1 Tab Tab 1 TAB PO QAM Cholecalciferol (Vitamin D 400 Iu) 400 Unit Cap 400 INTER.UNIT PO QAM Clonazepam (Clonazepam) 0.5 Mg Tab 0.5 MG PO Q12H PRN for Anxiety/Agitation Escitalopram Oxalate (Lexapro) 20 Mg Tab 20 MG PO DAILY, TAB Fluticasone Propionate (Nasal) (Flonase Allergy Relief) 50 Mcg/Act Spr 1 SPRAY NANCY DAILY Hydroxyzine HCl (Hydroxyzine HCl) 10 Mg Tab 10 MG PO TID PRN for Anxiety Insulin Human NPH (Humulin N) 100 Units/Ml Susp 20 UNITS SC QDB Levothyroxine Sodium (Synthroid) 25 Mcg Tab 25 MCG PO QAM Meloxicam (Meloxicam) 7.5 Mg Tab 7.5 MG PO DAILY Metformin Hcl (Glucophage) 1,000 Mg Tab 1000 MG PO BID, TAB Mirtazapine (Remeron) 45 Mg Tab 45 MG PO HS Montelukast Sodium (Singulair) 10 Mg Tab 10 MG PO HS Multiple Vitamins W/ Iron (Multi Vitamin with Iron) 1 Tab Tab 1 TAB PO QAM Nortriptyline (Pamelor) 10 Mg Cap 10 MG PO HS Polyethylene (Miralax) 17 Gm Pow 17 GM PO DAILY PRN for Constipation for 30 Days, #30 DOSE Potassium Chloride (Klor-Con M20) 20 Meq Tabcr 20 MEQ PO BID Quetiapine Fumarate (Seroquel) 400 Mg Tab 400 MG PO HS Rivaroxaban (Xarelto) 20 Mg Tab 20 MG PO QAM, TAB Roflumilast (Daliresp) 500 Mcg Tab 500 MCG PO DAILY for 30 Days, #30 TAB Theophylline (Rohit-24) 400 Mg Capcr 1 CAP PO QAM Tiotropium [place] (Spiriva Handihaler) 30 Puff/540 Mcg Aerp 1 CAP INH DAILY Discontinued Medications: Prednisone (Prednisone) 10 Mg Tab 10 MG PO UD for 10 Days, #18 TAB see medical discharge instructions from hospital for tapering course Discharge Exam Physical Exam: General Appearance: no apparent distress Eyes: EOMI Neck: trachea midline Respiratory/Chest: no respiratory distress, no accessory muscle use, + decreased breath sounds (better than yesterday, very very faint wheeze upper lung only) 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 may need chronic therapy - zithromax 250mg three times a week Diastolic congestive heart failure - stable at this time no noted deterioration, stable Diabetes mellitus type 2 insulin requiring - A1C = 8.8 - home on home meds for now, PCP f/u History of pulmonary embolism - cont on Xarelto, no new complaints or problems no bleeding Hypothyroidism - Cont levothyroxine Vit D Deficiency - Cont supplementation DVT ppx: Continue Xarelto Disposition: stable for home - trying to get more medical services in home for pt and home bipap Total Time Spent: Less than 30 minutes This includes examination of the patient, discharge planning, medication reconciliation, and communication with other providers. Discharge Instructions Please refer to the electronic Patient Visit Report (Discharge Instructions) for additional information.
[2017-11-04] MEDS ORDERED: INSULIN GLARGINE SOLOSTAR 100 UNITS/ML 3 ML PEN SC SCH ×2 (21:00)
== END 2017-11-04 15:50 | disposition home health service (06) | DRG 189 ==
LOC: EDBD 16:18 → C.EDA 16:19 → C.MED 21:09 → ENRESERV 22:51 → C.MED 11-03 07:52 → C.MS2W 11-03 10:36
PROVIDERS: ADMIT Internal Medicine; ATTEND Student in an Organized Health Care Education/Training Program
DX: J96.21 Acute and chronic respiratory failure with hypoxia (principal); J44.1 Chronic obstructive pulmonary disease with (acute) exacerbation; I50.30 Unspecified diastolic (congestive) heart failure; E66.2 Morbid (severe) obesity with alveolar hypoventilation; Z99.81 Dependence on supplemental oxygen; Z68.34 Body mass index [BMI] 34.0-34.9, adult; J11.1 Influenza due to unidentified influenza virus with other respiratory manifestations; I27.29 Other secondary pulmonary hypertension; E11.9 Type 2 diabetes mellitus without complications; E03.9 Hypothyroidism, unspecified; E55.9 Vitamin D deficiency, unspecified; F32.9 Major depressive disorder, single episode, unspecified; F41.9 Anxiety disorder, unspecified; Z87.891 Personal history of nicotine dependence; Z86.711 Personal history of pulmonary embolism; Z85.43 Personal history of malignant neoplasm of ovary; Z79.01 Long term (current) use of anticoagulants; Z79.1 Long term (current) use of non-steroidal anti-inflammatories (NSAID); Z79.4 Long term (current) use of insulin; Z79.51 Long term (current) use of inhaled steroids; Z79.52 Long term (current) use of systemic steroids; Z79.899 Other long term (current) drug therapy; Z88.7 Allergy status to serum and vaccine; Z91.018 Allergy to other foods

== ENCOUNTER 2017-11-11 18:28 | Inpatient (IN) | payer OTHER ==
[~2017-11-11] VITALS: Ht 160 cm; Wt 83.2 kg
[~2017-11-11 18:28] MED LIST changes: -ALBINS INH; +ALBINS NEB; -ARFO15NE INH; +ARFO15NE NEB; -ATR10 PO; +AZIT250T PO; -CALC-211 PO; +ESCI1TAB10 PO; -FLUT0.15 NAE; -FURO40TA3 PO; +INSHNI SC; +IPRASOL4 INH; -KLN5 PO; -LEVO25TA PO; -MBC75 PO; -MCM600 PO; -MCRK20 PO; -MIRT45TA PO; -MONT1TAB3 PO; -MULT-1028 PO; -NVLNI SC; -PLMINSR5 INH; +PLMINSR5 NEB; -QUET1TAB13 PO; -RANI150T3 PO; -SPRIN/30 INH
[2017-11-11] MEDS ORDERED: ONDANSETRON INJ 2 MG/ML 2 ML VIAL IV STA (18:43)
[2017-11-11] MEDS ORDERED: SODIUM CHLORIDE 0.9% 500ML 500 ML IV STA ×2 (18:43→19:29)
[2017-11-11] MEDS ORDERED: SODIUM CHLORIDE 0.9% 1000ML 1,000 ML IV STA (18:43)
[2017-11-11] MEDS ORDERED: OPTIRAY 320 IV PRN (19:00)
--- NOTE | 2017-11-11 19:03 | DIAGNOSTIC IMAGING REPORT ---
CHEST ONE VIEW PORTABLE CLINICAL HISTORY: Altered mental status COMPARISON STUDY: October 28, 2017 FINDINGS: The cardiac and mediastinal contours remain stable. The heart is mildly enlarged. There is no lobar consolidation. Prominent basilar markings are likely atelectatic. There are no pleural effusions[ IMPRESSION: 1. Prominent basilar markings, likely atelectatic 2. No evidence of lobar consolidation Electronically signed by: Hang Moses M.D. 11/11/2017 7:02 PM Dictated Date/Time: 11/11/2017 7:00 PM
[2017-11-11 19:30] LABS: BASO % 0.2 %; BASO ABS # 0.03 K/uL (0-0.2); EOS % 0.1 %; EOS ABS # 0.02 K/uL (0-0.5); HEMATOCRIT 34.3 % (37-47); HEMOGLOBIN 11.5 g/dL (12.0-16.0); IG# 0.23 K/uL (0.00-0.02); LYMPH % 5.4 %; LYMPH ABS # 1.05 K/uL (1.2-3.4); MEAN CELL VOLUME 76.9 fL (80-100); MEAN CORPUSCULAR HEMOGLOBIN 25.8 pg (25-34); MEAN CORPUSCULAR HGB CONC 33.5 g/dl (32-36); MEAN PLATELET VOLUME 8.4 fL (7.4-10.4); MONO % 2.6 %; NEUT % 90.5 %; NEUT ABS # 17.65 K/uL (1.4-6.5); PLATELET COUNT 447 K/uL (130-400); RED CELL DISTRIBUTION WIDTH CV 17.2 % (11.5-14.5); RED CELL DISTRIBUTION WIDTH SD 47.9 fL (36.4-46.3); WHITE BLOOD COUNT 19.48 K/uL (4.8-10.8)
[2017-11-11 19:50] LABS: ALBUMIN 3.4 gm/dl (3.4-5.0); ALT/SGPT 30 U/L (12-78); AST/SGOT 10 U/L (15-37); BLOOD UREA NITROGEN 26 mg/dl (7-18); CALCIUM 9.4 mg/dl (8.5-10.1); CARBON DIOXIDE 28 mmol/L (21-32); CREATININE 1.44 mg/dl (0.60-1.20); GLUCOSE 288 mg/dl (70-99); POTASSIUM 3.2 mmol/L (3.5-5.1); SODIUM 127 mmol/L (136-145)
[2017-11-11 19:50] LABS: INR 1.1 (0.9-1.1)
[2017-11-11 20:01] LABS: ALKALINE PHOSPHATASE 91 U/L (45-117); TOTAL PROTEIN 7.7 gm/dl (6.4-8.2)
[2017-11-11] MEDS ORDERED: ATR10 PO (20:25)
--- NOTE | 2017-11-11 20:25 | DIAGNOSTIC IMAGING REPORT ---
CT HEAD WITHOUT CONTRAST (CT) CLINICAL HISTORY: Acute change in mental status. Weakness. COMPARISON STUDY: No previous studies for comparison. TECHNIQUE: Axial CT of the brain is performed from the vertex to the skull base. IV contrast was not administered for this examination. A dose lowering technique was utilized adhering to the principles of ALARA. CT DOSE: 2796.73 mGy.cm FINDINGS: No intra or extra-axial mass lesions are visualized. There is no CT evidence of acute cortical infarction. There is no evidence of midline shift. There is no acute hemorrhage. No calvarial fractures are visualized. There are patchy white matter hypodensities likely on a small vessel basis. There is no evidence of pathologic ventricular dilatation. There is no evidence of acute sinusitis IMPRESSION: No acute intracranial findings Electronically signed by: Hang Moses M.D. 11/11/2017 8:24 PM Dictated Date/Time: 11/11/2017 8:24 PM
--- NOTE | 2017-11-11 20:28 | DIAGNOSTIC IMAGING REPORT ---
CT OF THE CERVICAL SPINE CLINICAL HISTORY: Neck pain, syncope. Weakness. COMPARISON STUDY: No previous studies for comparison. CT DOSE: TECHNIQUE: CT scan of the cervical spine was performed from the skull base to the thoracic inlet. Images are reviewed in the axial, sagittal, and coronal planes. IV contrast was not administered for this examination. A dose lowering technique was utilized adhering to the principles of ALARA. FINDINGS: The visualized portions lung apices reveal an azygos fissure. There is moderate apical emphysema. The prevertebral soft tissues are normal. No fractures or traumatic subluxations are visualized. There are moderate multilevel degenerative changes. 2 mm of anterior subluxation of C3 on C4 is felt to be degenerative. IMPRESSION: 1. No acute fractures or traumatic subluxations 2. Moderate multilevel degenerative change 3. Emphysema Electronically signed by: Hang Moses M.D. 11/11/2017 8:27 PM Dictated Date/Time: 11/11/2017 8:25 PM
--- NOTE | 2017-11-11 20:33 | DIAGNOSTIC IMAGING REPORT ---
CT ABD/PELVIS IV CONTRAST ONLY CLINICAL HISTORY: Generalized abdominal pain COMPARISON STUDY: October 28, 2017 TECHNIQUE: Following the IV administration of 115 mL of Optiray-320, CT scan of the abdomen and pelvis was performed from the lung bases to the proximal femurs. Images are reviewed in the axial, sagittal, and coronal planes. IV contrast was administered without complication. A dose lowering technique was utilized adhering to the principles of ALARA. CT DOSE: FINDINGS: Lower chest: There are minor basilar atelectatic changes Liver: There is hepatic steatosis. There is a 12 mm hypervascular lesion within the right lobe of the liver posteriorly. Gallbladder: Unremarkable. Spleen: Normal in size and attenuation. Pancreas: Unremarkable. Adrenal glands: Unremarkable. Kidneys: There is symmetric renal cortical enhancement. The kidneys are normal in size without hydronephrosis. Bowel: There are no transition zones indicate bowel obstruction. There is colonic diverticulosis. There is no acute diverticulitis. There is no evidence of acute appendicitis. Peritoneum: There is no intraperitoneal free air or abdominal ascites. Vasculature: The abdominal aorta is normal in course and caliber. Adenopathy: None. Pelvic viscera: The uterus is surgically absent. There are 2 right ovarian cysts measuring 14 mm and 18 mm. Skeletal structures: No destructive osseous lesions are seen. IMPRESSION: 1. No evidence of bowel obstruction. No evidence of free air 2. Diverticulosis. No evidence of acute diverticulitis 3. No evidence of acute appendicitis 4. Small ovarian cysts 5. 12 mm hypervascular lesion within the right lobe of the liver posteriorly Electronically signed by: Hang Moses M.D. 11/11/2017 8:32 PM Dictated Date/Time: 11/11/2017 8:28 PM
[2017-11-11] MEDS ORDERED: POLY335019 PO (21:24)
[2017-11-11] MEDS ORDERED: IPRASOL4 INH (21:24)
[2017-11-11] MEDS ORDERED: BISA1TAB15 PO (21:24)
[2017-11-11] MEDS ORDERED: OXGN (21:28)
--- NOTE | 2017-11-11 22:14 | History and Physical ---
History & Physical Date & Time of Service: Nov 11, 2017 at 21:38 Chief Complaint: Sob, Syncope Primary Care Physician: Anil Rodriguez D.O. History of Present Illness Source: patient Patient is a 72 year old female with a past medical history of COPD on home oxygen, PE 06/2016 currently on Xarelto, GERD, DM, KATHLEEN, and MDD that presents after a syncopal episode this evening. The patient state that she had been having nausea and vomiting Thursday and Thursday and has had no PO intake since. She also had an episode of Diarrhea on Thursday but no bowel movements since. The patient was recently discharged on 11/04 for a COPD exacerbation with a noninvasive home ventilator that was set up at her home yesterday but she has been unable to use it. She is currently on her baseline 2L of oxygen at home and 3L at night. She experienced a syncopal episode on Thursday where she suddenly fell to the ground. She denies any changes prior to the fall that was sudden and felt like her body just gave out. She denies any trauma or injuries after the initial fall. Today the patient again had a syncopal episode and states that she was having neck pain when she woke up. She denies any vision changes, headache, fever, chills. nausea or vomiting. She has been having intermittent cramping/turning sensation over the region of the lowest rib/ upper abdomen but denies any abdominal pain at this time. She states the abdominal discomfort lasts seconds to minutes and goes away. The patient denies any shortness of breath and that she is currently at her baseline respiratory status, and felt well after a breathing treatment this morning. She states that she has been having burning on urination for the last few days. She also states that she has been having some tingling over her right buttox region. Past Medical/Surgical History Normal echo 2017 Family History No pertient family history secondary to age Social History Smoking Status: Former Smoker Drug Use: none Marital Status: Housing status: lives alone Occupational Status: retired Immunizations History of Influenza Vaccine: Yes History of Tetanus Vaccine?: Yes History of Pneumococcal: Yes History of Hepatitis B Vaccine: Unknown Allergies Coded Allergies: Rabies Vaccine (Verified Allergy, Severe, HIVES, 10/28/17) Ragweed (Verified Allergy, Unknown, UNKNOWN, 10/28/17) Tomato (Verified Allergy, Unknown, HIVES, 10/28/17) Home Medications Scheduled Arformoterol Tartrate (Brovana), 15 MCG NEB BID Azithromycin (Zithromax), 250 MG PO UD Budesonide (Pulmicort Respules 0.5MG/2ML), 0.5 MG NEB BID Calcium Carbonate-Cholecalcife (Oyster Shell Calcium + D), 1 TAB PO QAM Cholecalciferol (Vitamin D 400 Iu), 400 INTER.UNIT PO QAM Escitalopram Oxalate (Lexapro), 20 MG PO DAILY Fluticasone Propionate (Nasal) (Flonase Allergy Relief), 1 SPRAY NANCY DAILY Home O2 Therapy (Oxygen), 2-3 LITERS NA CONTINOUS Insulin Human NPH (Humulin N), 20 UNITS SC QAM Levothyroxine Sodium (Synthroid), 25 MCG PO QAM Meloxicam (Meloxicam), 7.5 MG PO DAILY Metformin Hcl (Glucophage), 1,000 MG PO BID Mirtazapine (Remeron), 45 MG PO HS Montelukast Sodium (Singulair), 10 MG PO HS Multiple Vitamins W/ Iron (Multi Vitamin with Iron), 1 TAB PO QAM Nortriptyline (Pamelor), 10 MG PO HS Potassium Chloride (Klor-Con M20), 20 MEQ PO BID Prednisone (Prednisone), 10 MG PO UD Quetiapine Fumarate (Seroquel), 400 MG PO HS Rivaroxaban (Xarelto), 20 MG PO QAM Roflumilast (Daliresp), 500 MCG PO DAILY Theophylline (Rohit-24), 400 MG PO QAM Tiotropium [place] (Spiriva Handihaler), 1 CAP INH DAILY Scheduled PRN Albuterol Sulf (Albuterol Sulfate), 2.5 MG NEB Q4H PRN for SOB/Wheezing Bisacodyl (Bisacodyl), 10 MG PO DAILY PRN for Constipation Clonazepam (Clonazepam), 0.5 MG PO Q12H PRN for Anxiety/Agitation Hydroxyzine HCl (Hydroxyzine HCl), 10 MG PO TID PRN for Anxiety Ipratropium-Albuterol (Duoneb), 1 TREATMENT INH Q4WA PRN for SOB/Wheezing Polyethylene Glycol 3350 (Miralax), 17 GM PO DAILY PRN for Constipation Review of Systems Constitutional: No fever, No chills, No sweats Respiratory: No cough, No sputum, No wheezing, No shortness of breath Cardiovascular: No chest pain, No palpitations Abdomen: + pain, + nausea, + vomiting, + diarrhea, No constipation Genitourinary - Female: + dysuria Psychiatric: No depression symptoms Endocrine: + fatigue Integumentary: No rash, No itch Physical Exam Vital Signs Date Time Temp Pulse Resp B/P (MAP) Pulse Ox O2 Delivery O2 Flow Rate FiO2 11/11/17 20:28 97 139/71 96 Nasal Cannula 2.0 11/11/17 19:20 114 11/11/17 19:18 108 138/91 113 83/61 11/11/17 18:48 96 Nasal Cannula 2.0 11/11/17 18:39 37.2 110 123/85 94 Nasal Cannula 2.0 General Appearance: WD/WN, no apparent distress Head: normocephalic, atraumatic Eyes: normal inspection, sclerae normal Neck: supple, no carotid bruits, trachea midline Respiratory/Chest: no respiratory distress, no accessory muscle use, + decreased breath sounds, + wheezing Cardiovascular: regular rate, rhythm, no edema, no gallop, no murmur Abdomen/GI: normal bowel sounds, non tender, soft Extremities/Musculoskelatal: + pertinent finding (left sided neck tenderness to palpation, no visible hematomas or abrasions) Neurologic/Psych: alert, normal mood/affect, oriented x 3 Diagnostics Laboratory Results Results Past 24 Hours Test 11/11/17 19:13 11/11/17 19:15 11/11/17 19:16 Range/Units Bedside Glucose 280 70-90 mg/dl Prothrombin Time 11.9 9.0-12.0 SECONDS Prothromb Time International Ratio 1.1 0.9-1.1 Activated Partial Thromboplast Time 26.0 21.0-31.0 SECONDS Partial Thromboplastin Ratio 1.0 White Blood Count 19.48 4.8-10.8 K/uL Red Blood Count 4.46 4.2-5.4 M/uL Hemoglobin 11.5 12.0-16.0 g/dL Hematocrit 34.3 37-47 % Mean Corpuscular Volume 76.9 80-100 fL Mean Corpuscular Hemoglobin 25.8 25-34 pg Mean Corpuscular Hemoglobin Concent 33.5 32-36 g/dl Platelet Count 447 130-400 K/uL Mean Platelet Volume 8.4 7.4-10.4 fL Neutrophils (%) (Auto) 90.5 % Lymphocytes (%) (Auto) 5.4 % Monocytes (%) (Auto) 2.6 % Eosinophils (%) (Auto) 0.1 % Basophils (%) (Auto) 0.2 % Neutrophils # (Auto) 17.65 1.4-6.5 K/uL Lymphocytes # (Auto) 1.05 1.2-3.4 K/uL Monocytes # (Auto) 0.50 0.11-0.59 K/uL Eosinophils # (Auto) 0.02 0-0.5 K/uL Basophils # (Auto) 0.03 0-0.2 K/uL RDW Standard Deviation 47.9 36.4-46.3 fL RDW Coefficient of Variation 17.2 11.5-14.5 % Immature Granulocyte % (Auto) 1.2 % Immature Granulocyte # (Auto) 0.23 0.00-0.02 K/uL Venous Blood pH 7.50 7.36-7.41 Venous Blood Partial Pressure CO2 39 38.0-50.0 mmHg Venous Blood Partial Pressure O2 69 mmHg Venous Blood HCO3 29 mmol/L Venous Blood Oxygen Saturation 93.7 % Venous Blood Base Excess 5.8 mEq/L Sodium Level 127 136-145 mmol/L Potassium Level 3.2 3.5-5.1 mmol/L Chloride Level 83 98-107 mmol/L Carbon Dioxide Level 28 21-32 mmol/L Anion Gap 16.0 3-11 mmol/L Blood Urea Nitrogen 26 7-18 mg/dl Creatinine 1.44 0.60-1.20 mg/dl Est Creatinine Clear Calc Drug Dose 34.6 ml/min Estimated GFR () 41.7 Estimated GFR (Non- 35.9 BUN/Creatinine Ratio 18.4 10-20 Random Glucose 288 70-99 mg/dl Calcium Level 9.4 8.5-10.1 mg/dl Magnesium Level 1.4 1.8-2.4 mg/dl Total Bilirubin 0.7 0.2-1 mg/dl Direct Bilirubin 0.2 0-0.2 mg/dl Aspartate Amino Transf (AST/SGOT) 10 15-37 U/L Alanine Aminotransferase (ALT/SGPT) 30 12-78 U/L Alkaline Phosphatase 91 45-117 U/L Troponin I < 0.015 0-0.045 ng/ml Total Protein 7.7 6.4-8.2 gm/dl Albumin 3.4 3.4-5.0 gm/dl Thyroid Stimulating Hormone (TSH) 0.867 0.300-4.500 uIu/ml Impression Assessment and Plan Patient is a 72 year old female with a past medical history of COPD on home oxygen, PE 06/2016 currently on Xarelto, GERD, DM, KATHLEEN, and MDD that presents after a syncopal episode this evening. Syncopal Episode 2/2 Acute Dehydration and Prolonged QTc - EKG: Prolonged QTc 646 - Positive orthostatics - IV NS + 20 K+ @ 125 mls/hr - Advance diet as tolerated - Abdominal CT: No evidence of acute diverticulitis, acute appendicitis, or bowel obstructions - Head CT: No acute intracranial abnormalities - C-Spine CT: No acute fractures or subluxations - Admit to Telemetry QT Prolongation - EKG: QTc 646 - Recently discharged on Azithromycin in addition to a number of Psych medications that can prolong the QT - Currently holding home Clonazepam, Lexapro, Hydroxyzine, Nortriptyline, Seroquel, and Remeron - Monitor on Telemetry Hypokalemia - K+ of 3.2 - 40meq PO K+ - Additional K+ with IV fluids - Repeat BMP QAM Hypomagnesemia - Magnesium of 1.4 - Magnesium 2g IV now - Repeat Magnesium Tomorrow AM Hyponatremia/ Hypochloremia - Sodium of 127, Chloride of 82 - Normal Saline @ 125mls/hr - Repeat BMP tomorrow AM Diabetes Mellitus - Human Insulin 20 units QAM - ISS with BSG checks AC/HS DARI - Cr of 1.44 (Baseline 0.8) with elevated BUN - Secondary to dehydration - Rehydrate with IV fluids as above - Monitor with daily BMP - UA wnl COPD - Currently on home oxygen 2L at saturating well - Wheezing with decreased breath sounds bilaterally - Will restart steroid therapy with IV Solu-Medrol 40mg IV q8h - CXR: No acute process Leukocytosis - WBC 19.48 - Most likely secondary to recent steroid use, dehydration, and viral gastroenteritis - At this time do not suspect C diff due to limited bowel movements, although with recent hospitalization and antibiotic use may warrant consideration DVT - Continue Lovenox - Hgb stable from previous admission and no concern of acute bleeding at this time from fall Code Status - Full Resuscitation Resident Physician Supervision Note: I was present with Dr. Hernandez during the history and exam. I discussed the case with the resident and agree with the findings and plan as documented in the note. Any exceptions or clarifications are listed here: 72 y/o F advanced COPD - 2L home oxygen, PE 06/29 currently on Xarelto, GERD, DM - presents following a syncopal episode this evening. Describes nausea, vomiting for a few days and an additional syncopal episode this past Thursday. She was recently admitted for COPD and complated a course of Zithromax today. The pt was notably orthostatic at the time of admission and an EKG reveals QT prolongation of over 600. Initial labs are notable for mild hypoK and hypoMg OE AAO x 3 S1,2 R (+) BL wheezing in all lung max NT, ND No CCE P: Syncope x 2 possibly due to orthostasis but could be due to arrhythmia considering her prolonged QT - electrolytes replaced, IVF provided - assigned to telemetry - we will repeat serial EKGs - if correction does not occur, EPS should be consulted. Should avoid Zithromax in future and daily Mg is probably advisable. COPD exacerbation has not entirely resolved - she can continue her breathing treatmants out of necessity and is placed on IV Steroids DM - SS and Lantus provided Documented By: Alfonso Coon Resuscitation Status Full Resuscitation VTE Prophylaxis Will order VTE Prophylaxis: Yes Resident Tracking Resident Involvement: Resident Care Provided Care Provided: Adult Hospital Medicine
[2017-11-11] MEDS ORDERED: GLUCAGON FOR INJ 1 MG VIAL SQ PRN (22:30)
[2017-11-11] MEDS ORDERED: DEXTROSE 50% 50 ML SYR IV PRN (22:30)
[2017-11-11] MEDS ORDERED: GLUCOSE 10 TABS/TUBE PO PRN (22:30)
[2017-11-11] MEDS ORDERED: GLUCOSE 40% GEL 15 GM TUBE PO PRN (22:30)
[2017-11-11] MEDS ORDERED: POTASSIUM CHLORIDE 10 MEQ TABCR PO STA (22:36)
[2017-11-11] MEDS: MAGNESIUM SULFATE 1GM / D5W 1 GM IV SCH ×2 (23:01→23:53)
[2017-11-11] MEDS ORDERED: FLUT0.15 NAE (23:05)
[2017-11-11] MEDS ORDERED: CALC-211 PO (23:05)
[2017-11-11] MEDS ORDERED: SPRIN/30 INH (23:05)
[2017-11-11] MEDS ORDERED: LEVO25TA PO (23:05)
[2017-11-11] MEDS ORDERED: MCRK20 PO (23:05)
[2017-11-11] MEDS ORDERED: MBC75 PO (23:05)
[2017-11-11] MEDS ORDERED: MIRT45TA PO (23:05)
[2017-11-11] MEDS ORDERED: MONT1TAB3 PO (23:05)
[2017-11-11] MEDS ORDERED: MULT-1028 PO (23:05)
[2017-11-11] MEDS ORDERED: KLN5 PO (23:05)
[2017-11-11] MEDS ORDERED: QUET1TAB13 PO (23:06)
[2017-11-11] MEDS ORDERED: INSULIN ASPART 100 UNITS/ML 3 ML PEN SC ONE (23:45)
[2017-11-12] VITALS (13 sets, daily range): BP systolic 99–155; BP diastolic 69–75; PULSE 89–115; TEMP 36.6–37.3; O2SAT 94–99; Ht 160 cm; Wt 83.2 kg
--- NOTE | 2017-11-12 00:42 | EMERGENCY ROOM VISIT NOTE ---
History Report prepared by Bianka: Rukhsana Rivers Under the Supervision of: Dr. Jose Leung D.O. First contact with patient: 18:32 Chief Complaint: SYNCOPE Stated Complaint: SOB, SYNCOPE Nursing Triage Summary: Patient presents to ED via ALS for syncopal episode. Patient lives home alone and had syncopal episode with a fall. today around [id number] Patient called for help via life alert button. Patient has had 2 syncopal episodes since Thursday. Patient was recently d/c from [facility] last week. Patient has not been eating well since Thursday. Reports since Thursday has been having nausea, vomiting and diarrhea. Denies chest pain or shortness of breath. Patient on 2L 02 at all times at home. Pre-hospital BS. Given 4mg IV Zofran by EMS and 100ml NSS. C/O pain 9/10 in head and neck. Did hit her head when she fell today. History of Present Illness The patient is a 72 year old female who presents to the Emergency Room with complaints of an episode of syncope MANAGER STARS. The patient presents to the ED by EMS. The patient was walking to the kitchen when she started feeling SOB. She became dizzy and then passed out. She woke up face first on the ground. She hit her head in the fall. She reports headache and neck pain. She has been feeling SOB and dizzy with walking for the past 2-3 days. She had another syncopal episode 2 days ago. She reports nausea and vomiting recently. She is having abdominal pain. She has not been eating well. She denies any chest pain, cough, or rhinorrhea. She has had a hysterectomy. She is on Xarelto. She denies any missed doses. The patient is on 2L of oxygen during the day and 3L at night. She had a recent CTA dissection and CT abdomen which were unremarkable. Source of History: patient Onset: MANAGER STARS Position: other (global) Quality: other (syncope) Timing: other (episodic) Associated Symptoms: + headache, + neck pain, + SOB, + nausea, + vomiting, + abdominal pain, No cough, No chest pain Review of Systems See HPI for pertinent positives & negatives. A total of 10 systems reviewed and were otherwise negative. Past Medical & Surgical Medical Problems: (1) Acid reflux (2) CHF (congestive heart failure) (3) COPD (chronic obstructive pulmonary disease) (4) COPD exacerbation (5) Diabetes (6) KATHLEEN (generalized anxiety disorder) (7) GERD (gastroesophageal reflux disease) (8) Hypoxia (9) Major depression, recurrent, full remission (10) Meningitis (11) Ovarian ca (12) Ovarian cancer (13) QT prolongation (14) Syncope Family History No pertient family history secondary to age Social History Smoking Status: Former Smoker Alcohol Use: none Drug Use: none Marital Status: Housing Status: lives with family Occupation Status: retired Current/Historical Medications Scheduled Arformoterol Tartrate (Brovana), 15 MCG NEB BID Azithromycin (Zithromax), 250 MG PO UD Budesonide (Pulmicort Respules 0.5MG/2ML), 0.5 MG NEB BID Calcium Carbonate-Cholecalcife (Oyster Shell Calcium + D), 1 TAB PO QAM Cholecalciferol (Vitamin D 400 Iu), 400 INTER.UNIT PO QAM Escitalopram Oxalate (Lexapro), 20 MG PO DAILY Fluticasone Propionate (Nasal) (Flonase Allergy Relief), 1 SPRAY NANCY DAILY Home O2 Therapy (Oxygen), 2-3 LITERS NA CONTINOUS Insulin Human NPH (Humulin N), 20 UNITS SC QAM Levothyroxine Sodium (Synthroid), 25 MCG PO QAM Meloxicam (Meloxicam), 7.5 MG PO DAILY Metformin Hcl (Glucophage), 1,000 MG PO BID Mirtazapine (Remeron), 45 MG PO HS Montelukast Sodium (Singulair), 10 MG PO HS Multiple Vitamins W/ Iron (Multi Vitamin with Iron), 1 TAB PO QAM Nortriptyline (Pamelor), 10 MG PO HS Potassium Chloride (Klor-Con M20), 20 MEQ PO BID Prednisone (Prednisone), 10 MG PO UD Quetiapine Fumarate (Seroquel), 400 MG PO HS Rivaroxaban (Xarelto), 20 MG PO QAM Roflumilast (Daliresp), 500 MCG PO DAILY Theophylline (Rohit-24), 400 MG PO QAM Tiotropium Sanford (Spiriva Handihaler), 1 CAP INH DAILY Scheduled PRN Albuterol Sulf (Albuterol Sulfate), 2.5 MG NEB Q4H PRN for SOB/Wheezing Bisacodyl (Bisacodyl), 10 MG PO DAILY PRN for Constipation Clonazepam (Clonazepam), 0.5 MG PO Q12H PRN for Anxiety/Agitation Hydroxyzine HCl (Hydroxyzine HCl), 10 MG PO TID PRN for Anxiety Ipratropium-Albuterol (Duoneb), 1 TREATMENT INH Q4WA PRN for SOB/Wheezing Polyethylene Glycol 3350 (Miralax), 17 GM PO DAILY PRN for Constipation Allergies Coded Allergies: Rabies Vaccine (Verified Allergy, Severe, HIVES, 10/28/17) Ragweed (Verified Allergy, Unknown, UNKNOWN, 10/28/17) Tomato (Verified Allergy, Unknown, HIVES, 10/28/17) Physical Exam Vital Signs Date Time Temp Pulse Resp B/P (MAP) Pulse Ox O2 Delivery O2 Flow Rate FiO2 11/11/17 22:32 108 133/75 100 Room Air 11/11/17 20:28 97 139/71 96 Nasal Cannula 2.0 11/11/17 19:20 114 11/11/17 19:18 108 138/91 113 83/61 11/11/17 18:48 96 Nasal Cannula 2.0 11/11/17 18:39 37.2 110 123/85 94 Nasal Cannula 2.0 Physical Exam GENERAL: Sitting up in bed, disheveled, chronically ill appearing EYE EXAM: normal conjunctiva. OROPHARYNX: no exudate, no erythema, lips, buccal mucosa, and tongue normal and mucous membranes are moist NECK: supple, no nuchal rigidity, no adenopathy, non-tender, no JVD LUNGS: Coarse bilaterally. Normal chest wall mechanics HEART: no murmurs, S1 normal and S2 normal ABDOMEN: abdomen soft, non-tender, normo-active bowel sounds, no masses, no rebound or guarding. BACK: Back is symmetrical on inspection and there is no deformity, no midline tenderness, no CVA tenderness. SKIN: no rashes and no bruising UPPER EXTREMITIES: upper extremities are grossly normal. LOWER EXTREMITIES: No pitting edema. Calves equal bilaterally. NEURO EXAM: Normal sensorium, cranial nerves II-XII grossly intact, normal speech, no gross weakness of arms, no gross weakness of legs. Medical Decision & Procedures ER Provider Diagnostic Interpretation: Xray results as stated below per my and the radiologist's interpretation. Radiology results as stated below per my review and the radiologist's interpretation: CHEST ONE VIEW PORTABLE CLINICAL HISTORY: Altered mental status COMPARISON STUDY: October 28, 2017 FINDINGS: The cardiac and mediastinal contours remain stable. The heart is mildly enlarged. There is no lobar consolidation. Prominent basilar markings are likely atelectatic. There are no pleural effusions[ IMPRESSION: 1. Prominent basilar markings, likely atelectatic 2. No evidence of lobar consolidation Electronically signed by: Hang Moses M.D. 11/11/2017 7:02 PM Dictated Date/Time: 11/11/2017 7:[address] HEAD WITHOUT CONTRAST (CT) CLINICAL HISTORY: Acute change in mental status. Weakness. COMPARISON STUDY: No previous studies for comparison. TECHNIQUE: Axial CT of the brain is performed from the vertex to the skull base. IV contrast was not administered for this examination. A dose lowering technique was utilized adhering to the principles of ALARA. CT DOSE: 2796.73 mGy.cm FINDINGS: No intra or extra-axial mass lesions are visualized. There is no CT evidence of acute cortical infarction. There is no evidence of midline shift. There is no acute hemorrhage. No calvarial fractures are visualized. There are patchy white matter hypodensities likely on a small vessel basis. There is no evidence of pathologic ventricular dilatation. There is no evidence of acute sinusitis IMPRESSION: No acute intracranial findings Electronically signed by: Hang Moses M.D. 11/11/2017 8:24 PM Dictated Date/Time: 11/11/2017 8:[address] OF THE CERVICAL SPINE CLINICAL HISTORY: Neck pain, syncope. Weakness. COMPARISON STUDY: No previous studies for comparison. CT DOSE: TECHNIQUE: CT scan of the cervical spine was performed from the skull base to the thoracic inlet. Images are reviewed in the axial, sagittal, and coronal planes. IV contrast was not administered for this examination. A dose lowering technique was utilized adhering to the principles of ALARA. FINDINGS: The visualized portions lung apices reveal an azygos fissure. There is moderate apical emphysema. The prevertebral soft tissues are normal. No fractures or traumatic subluxations are visualized. There are moderate multilevel degenerative changes. 2 mm of anterior subluxation of C3 on C4 is felt to be degenerative. IMPRESSION: 1. No acute fractures or traumatic subluxations 2. Moderate multilevel degenerative change 3. Emphysema Electronically signed by: Hang Moses M.D. 11/11/2017 8:27 PM Dictated Date/Time: 11/11/2017 8:[address] ABD/PELVIS IV CONTRAST ONLY CLINICAL HISTORY: Generalized abdominal pain COMPARISON STUDY: October 28, 2017 TECHNIQUE: Following the IV administration of 115 mL of Optiray-320, CT scan of the abdomen and pelvis was performed from the lung bases to the proximal femurs. Images are reviewed in the axial, sagittal, and coronal planes. IV contrast was administered without complication. A dose lowering technique was utilized adhering to the principles of ALARA. CT DOSE: FINDINGS: Lower chest: There are minor basilar atelectatic changes Liver: There is hepatic steatosis. There is a 12 mm hypervascular lesion within the right lobe of the liver posteriorly. Gallbladder: Unremarkable. Spleen: Normal in size and attenuation. Pancreas: Unremarkable. Adrenal glands: Unremarkable. Kidneys: There is symmetric renal cortical enhancement. The kidneys are normal in size without hydronephrosis. Bowel: There are no transition zones indicate bowel obstruction. There is colonic diverticulosis. There is no acute diverticulitis. There is no evidence of acute appendicitis. Peritoneum: There is no intraperitoneal free air or abdominal ascites. Vasculature: The abdominal aorta is normal in course and caliber. Adenopathy: None. Pelvic viscera: The uterus is surgically absent. There are 2 right ovarian cysts measuring 14 mm and 18 mm. Skeletal structures: No destructive osseous lesions are seen. IMPRESSION: 1. No evidence of bowel obstruction. No evidence of free air 2. Diverticulosis. No evidence of acute diverticulitis 3. No evidence of acute appendicitis 4. Small ovarian cysts 5. 12 mm hypervascular lesion within the right lobe of the liver posteriorly Electronically signed by: Hang Moses M.D. 11/11/2017 8:32 PM Dictated Date/Time: 11/11/2017 8:28 PM Laboratory Results 11/11/17 19:16 Red Blood Count 4.46, Mean Corpuscular Volume 76.9, Mean Corpuscular Hemoglobin 25.8, Mean Corpuscular Hemoglobin Concent 33.5, Mean Platelet Volume 8.4, Neutrophils (%) (Auto) 90.5, Lymphocytes (%) (Auto) 5.4, Monocytes (%) (Auto) 2.6, Eosinophils (%) (Auto) 0.1, Basophils (%) (Auto) 0.2, Neutrophils # (Auto) 17.65, Lymphocytes # (Auto) 1.05, Monocytes # (Auto) 0.50, Eosinophils # (Auto) 0.02, Basophils # (Auto) 0.03 11/11/17 19:16 Test 11/11/17 19:13 11/11/17 19:15 11/11/17 19:16 Bedside Glucose 280 mg/dl (70-90) Prothrombin Time 11.9 SECONDS (9.0-12.0) Prothromb Time International Ratio 1.1 (0.9-1.1) Activated Partial Thromboplast Time 26.0 SECONDS (21.0-31.0) Partial Thromboplastin Ratio 1.0 White Blood Count 19.48 K/uL (4.8-10.8) Red Blood Count 4.46 M/uL (4.2-5.4) Hemoglobin 11.5 g/dL (12.0-16.0) Hematocrit 34.3 % (37-47) Mean Corpuscular Volume 76.9 fL (80-100) Mean Corpuscular Hemoglobin 25.8 pg (25-34) Mean Corpuscular Hemoglobin Concent 33.5 g/dl (32-36) Platelet Count 447 K/uL (130-400) Mean Platelet Volume 8.4 fL (7.4-10.4) Neutrophils (%) (Auto) 90.5 % Lymphocytes (%) (Auto) 5.4 % Monocytes (%) (Auto) 2.6 % Eosinophils (%) (Auto) 0.1 % Basophils (%) (Auto) 0.2 % Neutrophils # (Auto) 17.65 K/uL (1.4-6.5) Lymphocytes # (Auto) 1.05 K/uL (1.2-3.4) Monocytes # (Auto) 0.50 K/uL (0.11-0.59) Eosinophils # (Auto) 0.02 K/uL (0-0.5) Basophils # (Auto) 0.03 K/uL (0-0.2) RDW Standard Deviation 47.9 fL (36.4-46.3) RDW Coefficient of Variation 17.2 % (11.5-14.5) Immature Granulocyte % (Auto) 1.2 % Immature Granulocyte # (Auto) 0.23 K/uL (0.00-0.02) Venous Blood pH 7.50 (7.36-7.41) Venous Blood Partial Pressure CO2 39 mmHg (38.0-50.0) Venous Blood Partial Pressure O2 69 mmHg Venous Blood HCO3 29 mmol/L Venous Blood Oxygen Saturation 93.7 % Venous Blood Base Excess 5.8 mEq/L Anion Gap 16.0 mmol/L (3-11) Est Creatinine Clear Calc Drug Dose 34.6 ml/min Estimated GFR () 41.7 Estimated GFR (Non- 35.9 BUN/Creatinine Ratio 18.4 (10-20) Calcium Level 9.4 mg/dl (8.5-10.1) Magnesium Level 1.4 mg/dl (1.8-2.4) Total Bilirubin 0.7 mg/dl (0.2-1) Direct Bilirubin 0.2 mg/dl (0-0.2) Aspartate Amino Transf (AST/SGOT) 10 U/L (15-37) Alanine Aminotransferase (ALT/SGPT) 30 U/L (12-78) Alkaline Phosphatase 91 U/L (45-117) Troponin I < 0.015 ng/ml (0-0.045) Total Protein 7.7 gm/dl (6.4-8.2) Albumin 3.4 gm/dl (3.4-5.0) Thyroid Stimulating Hormone (TSH) 0.867 uIu/ml (0.300-4.500) Laboratory results per my review. Medications Administered Medications (Trade) Dose Ordered Sig/Lulú Route Start Time Stop Time Status Last Admin Dose Admin Sodium Chloride 1,000 ml @ 999 mls/hr Q1H1M STAT IV 11/11/17 18:43 11/11/17 19:43 DC 11/11/17 19:20 999 MLS/HR Ondansetron HCl (Zofran Inj) 4 mg NOW STAT IV 11/11/17 18:43 11/11/17 18:46 DC 11/11/17 19:21 4 MG Sodium Chloride 500 ml @ 999 mls/hr Q31M STAT IV 11/11/17 18:43 11/11/17 19:13 DC 11/11/17 19:21 999 MLS/HR Sodium Chloride 500 ml @ 999 mls/hr Q31M STAT IV 11/11/17 19:29 11/11/17 19:59 DC 2/28/18 19:29 999 MLS/HR ECG Per My Interpretation Indication: syncope Rate (beats per minute): 109 Rhythm: sinus tachycardia Findings: ST depression (diffuse, Anterior, Lateral, Inferior), other (normal axis) Comparison ECG Date: 28-Oct-2017 Change: ST changes worse. ED Course ED COURSE: Vital signs were reviewed and showed normal vitals. The patients medical record was reviewed The above diagnostic studies were performed and reviewed. ED treatments and interventions as stated above. 183: The patient was evaluated in room B10. A complete history and physical examination was performed. 1843: NSS 500 ml @ 999 mls/hr IV, Zofran Inj 4 mg IV, NSS 1000 ml @ 999 mls/hr IV. 1928: NSS 500 ml @ 999 mls/hr IV. 2035: Upon reevaluation, the patient is stable. I discussed my findings with the patient and she understands and agrees with the treatment plan. Based on the patients age, coexisting illnesses, exam and lab findings the decision to treat as an inpatient was made. The patient remained stable while under my care. The patient will be evaluated for further management. 2037: Dr. Coon, [facility] hospitalist was made aware of the patient. Medical Decision Differential diagnosis includes etiologies such as vasovagal event, infection, hypoglycemia, electrolyte abnormalities, cardiac sources, intracerebral event, toxicologic, neurologic, as well as others were entertained. Patient is a 72-year-old female who presents to ER for shortness of breath brought in by EMS associated with syncopal episodes. She was recently admitted for COPD exacerbation. She is taking Xarelto. White count of 19,000 below recently started on steroid taper. BMP shows a sodium of 127 and potassium 3.2. Creatinine was 1.4. LFTs along with bilirubin and troponin was unremarkable. TSH was normal. Patient has not been able to eat or drink anything. She was given fluids. With this to be CT head and cervical spine was performed was unremarkable. CT of the abdomen was benign as well. Chest x- ray without any overt infection. Patient was given fluids and Zofran. She was still extremely orthostatic. Based on this I did discuss case with internal medicine patient was admitted for cigarette associate with exertional dyspnea. PE was not pursued as she is taking Xarelto has not missed any doses. Head Trauma GCS Score: 15 Medication Reconcilliation Current Medication List: was personally reviewed by me Blood Pressure Screening Patient's blood pressure: Normal blood pressure Blood pressure disposition: Did not require urgent referral Consults Time Called: 2037 Consulting Physician: Dr. Coon [facility] hospitalist He was made aware of the patient. Impression Primary Impression: Syncope Additional Impressions: Orthostatic hypotension ALVAREZ (dyspnea on exertion) Scribe Attestation The scribe's documentation has been prepared under my direction and personally reviewed by me in its entirety. I confirm that the note above accurately reflects all work, treatment, procedures, and medical decision making performed by me. Departure Information Dispostion Being Evaluated By Hospitalist Referrals Anil Rodriguez D.O. (PCP) Patient Instructions My [facility] Problem Qualifiers Primary Impression: Syncope Syncope type: unspecified Qualified Codes: R55 - Syncope and collapse
[2017-11-12] MEDS: METHYLPREDNISOLONE IV 40 MG in SYRINGE 0 ML IV SCH ×4 (02:14→23:36)
[2017-11-12] MEDS: ACETAMINOPHEN 325 MG TAB PO PRN ×3 (02:44→22:24)
[2017-11-12] MEDS: ARFORMOTEROL TART 15MCG/2ML VIAL INH SCH ×2 (07:12→19:09)
[2017-11-12] MEDS: BUDESONIDE 0.5 MG/2 ML VIAL (PULMICORT) INH SCH ×2 (07:12→19:09)
--- NOTE | 2017-11-12 08:43 | Clinical Documentation Query ---
NATALY Henson : CLINICAL DOCUMENTATION QUERY Patient is a 72 year old female admitted s/p syncope x 2 possibly due to orthostasis and/or prolonged QT. H&P notes patient is on a baseline of 2L of oxygen during the day and 3L at night. As appropriate, consider capture of this clinical information as suggested below. Thank you. In your clinical opinion is this patient being managed for: ( x ) Chronic respiratory failure with hypoxia ( ) Not Agree ( ) Other explanation of clinical findings (Please Explain) ( ) Unable to determine (Please Define) ( ) Need to Discuss The medical record reflects the following clinical findings, treatment, and risk factors. Clinical Indicators: As above Treatment: Ongoing provision of supplemental O2. Risk Factors: COPD, former smoker Please clarify and document your clinical opinion in the progress notes and discharge summary. Terms such as "probable", "suspected", "likely", "questionable", "possible", or "still to be ruled out" are acceptable. IF IN AGREEMENT, YOU MUST DOCUMENT ABOVE DIAGNOSTIC STATEMENT IN DAILY PROGRESS NOTES AND DISCHARGE SUMMARY. This document is not part of the patient's record. Thank You, Kojo Horowitz, RN [phone]
[2017-11-12] MEDS: POTASSIUM CHLORIDE 20 MEQ TABCR PO SCH ×2 (09:00→20:57)
[2017-11-12] MEDS ORDERED: THEOPHYLLINE 400MG CONTROLLED REL TAB PO SCH (09:00)
[2017-11-12 09:05] LABS: BASO % 0.1 %; BASO ABS # 0.01 K/uL (0-0.2); EOS % 0.1 %; EOS ABS # 0.01 K/uL (0-0.5); HEMATOCRIT 31.7 % (37-47); HEMOGLOBIN 10.2 g/dL (12.0-16.0); IG# 0.16 K/uL (0.00-0.02); LYMPH % 6.9 %; LYMPH ABS # 1.08 K/uL (1.2-3.4); MEAN CELL VOLUME 78.7 fL (80-100); MEAN CORPUSCULAR HEMOGLOBIN 25.3 pg (25-34); MEAN CORPUSCULAR HGB CONC 32.2 g/dl (32-36); MEAN PLATELET VOLUME 8.1 fL (7.4-10.4); MONO % 2.6 %; NEUT % 89.3 %; NEUT ABS # 13.95 K/uL (1.4-6.5); PLATELET COUNT 365 K/uL (130-400); RED CELL DISTRIBUTION WIDTH CV 17.3 % (11.5-14.5); RED CELL DISTRIBUTION WIDTH SD 49.4 fL (36.4-46.3); WHITE BLOOD COUNT 15.61 K/uL (4.8-10.8)
[2017-11-12] MEDS: CHOLECALCIFEROL 400 INTER.UNIT TAB PO SCH (09:23)
[2017-11-12] MEDS: LEVOTHYROXINE 25 MCG TAB PO SCH (09:23)
[2017-11-12] MEDS: FLUTICASONE PROPIONATE NA SPR 16 GM BTL NAE SCH (09:23)
[2017-11-12] MEDS: ROFLUMILAST 500 MCG TAB PO SCH (09:23)
[2017-11-12] MEDS: TIOTROPIUM BROMIDE 5 PUFF/90 MCG INH INH SCH (09:24)
[2017-11-12] MEDS: INSULIN HUMAN NPH SC SCH (09:27)
[2017-11-12] MEDS: INSULIN ASPART 100 UNITS/ML 3 ML PEN SC SCH ×4 (09:27→21:01)
[2017-11-12 09:29] LABS: CALCIUM 8.4 mg/dl (8.5-10.1); CREATININE 0.8 mg/dl (0.60-1.20); POTASSIUM 3.6 mmol/L (3.5-5.1)
--- NOTE | 2017-11-12 14:07 | Family Medicine Progress Note ---
Progress Note Date of Service Nov 12, 2017. Subjective Pt reports several day history of generally feeling unwell, bouts of diarrhea and decreased appetite prior to admission. Says she had a syncopal episode 4 days ago when she got up from sitting and regained consciousness soon after, woke up on the floor of her home. The second episode happened after her consulting sales executive had left for the day, again she was getting up from sitting and then passed out, and this time hit her head. She denies any bleeding from the event, but does have some pain at her neck and head when she touches it. Otherwise, pt reports she has not been using her home noninvasive ventilator machine yet because "she just got it" and hasn't gotten a chance to use it yet. We reviewed her entire home medication list and she confirms what we have on file here as all her home meds that she takes regularly. Pt states she takes the Azithromax daily however. And has not taken her Remeron in a while because there have been no refills available at the pharmacy. Denies any new medications since last Fall. Says she follows with Dr. Thomas pulmonology in [place]. Denies chest pain, shortness of breath, pre-syncope, abdominal pain or leg pain at this time. ROS See HPI for pertinent positives and negatives. Medications Current Inpatient Medications Medications (Trade) Dose Ordered Sig/Lulú Route Start Time Stop Time Status Last Admin Dose Admin Ioversol (Optiray 320) 100 ml UD PRN IV 11/11/17 19:00 11/15/17 18:59 Acetaminophen (Tylenol Tab) 650 mg Q4H PRN PO 11/11/17 22:30 12/11/17 22:29 11/12/17 09:31 650 MG Insulin Aspart (novoLOG ASPART) SLIDING SCALE If C... ACHS SC 11/12/17 07:00 12/12/17 06:59 11/12/17 12:55 5 UNITS Glucose (Glucose 40% Gel) 15-30 GRAMS 15 GRAMS... UD PRN PO 11/11/17 22:30 12/11/17 22:29 Glucose (Glucose Chew Tab) 4-8 Tablets 4 Tabl... UD PRN PO 11/11/17 22:30 12/11/17 22:29 Dextrose (Dextrose 50% 50ML Syringe) 25-50ML OF 50% DW IV FOR... UD PRN IV 11/11/17 22:30 12/11/17 22:29 Glucagon (Glucagon Inj) 1 mg UD PRN SQ 11/11/17 22:30 12/11/17 22:29 Albuterol Sulfate (Ventolin 0.083% 2.5MG/3ML Neb) 2.5 mg Q4H PRN INH 11/11/17 22:30 12/11/17 22:29 Arformoterol Tartrate (Brovana 15MCG/ 2ML Neb Soln) 15 mcg BIDR INH 11/12/17 08:00 12/12/17 07:59 11/12/17 07:12 15 MCG Budesonide (Pulmicort Respules 0.5MG/ 2ML Neb Soln) 0.5 mg BIDR INH 11/12/17 08:00 12/12/17 07:59 11/12/17 07:12 0.5 MG Cholecalciferol (Vitamin D Tab) 400 inter.unit QAM PO 11/12/17 09:00 12/12/17 08:59 11/12/17 09:23 400 INTER.UNIT Fluticasone Propionate (Flonase Nasal [place]) 2 sprays DAILY NANCY 11/12/17 09:00 12/12/17 08:59 11/12/17 09:23 2 SPRAYS Insulin Human NPH (novoLIN-N NPH) 20 units QAM SC 11/12/17 09:00 12/12/17 08:59 11/12/17 09:27 20 UNITS Levothyroxine Sodium (Synthroid Tab) 25 mcg DAILYBB PO 11/12/17 07:00 12/12/17 06:59 11/12/17 09:23 25 MCG Montelukast Sodium (Singulair Tab) 10 mg HS PO 11/12/17 21:00 12/12/17 20:59 Potassium Chloride (Klor-Con Tab) 20 meq BID PO 11/12/17 09:00 12/12/17 08:59 Rivaroxaban (Xarelto Tab) 20 mg QDD PO 11/12/17 16:45 12/12/17 17:59 Roflumilast (Daliresp Tab) 500 mcg DAILY PO 11/12/17 09:00 12/12/17 08:59 3/1/18 09:23 500 MCG Tiotropium [place] (Spiriva Handihaler Inhaler) 1 puff DAILY INH 11/12/17 09:00 12/12/17 08:59 11/12/17 09:24 1 PUFF Methylprednisolone Sodium Succinate 40 mg/Syringe 0.64 ml @ 1.5 mls/min Q8H IV 11/12/17 00:00 12/12/17 00:00 11/12/17 09:22 1.5 MLS/MIN Objective Vital Signs Date Time Temp Pulse Resp B/P (MAP) Pulse Ox O2 Delivery O2 Flow Rate FiO2 11/12/17 07:13 90 16 97 Nasal Cannula 2.0 11/12/17 06:36 90 11/12/17 05:33 89 118/70 (86) 11/12/17 03:10 93 11/12/17 02:15 37.3 95 18 99/69 99 Nasal Cannula 2.0 11/11/17 23:51 97 20 139/102 97 Nasal Cannula 2.0 11/11/17 23:07 108 11/11/17 22:32 108 133/75 100 Room Air 11/11/17 20:28 97 139/71 96 Nasal Cannula 2.0 11/11/17 19:20 114 11/11/17 19:18 108 138/91 113 83/61 11/11/17 18:48 96 Nasal Cannula 2.0 11/11/17 18:39 37.2 110 123/85 94 Nasal Cannula 2.0 Physical Exam Notes: GENERAL: Awake, alert, in no distress. NC in place. HENT: Normocephalic, atraumatic. Tenderness to palpation at posterior neck muscles and occiput. EYES: Normal conjunctiva. Sclera non-icteric. RESPIRATORY: Decreased breath sounds bilaterally. CARDIAC: Regular rate, normal rhythm. Extremities warm and well perfused. Pulses equal. Left sided carotid bruit. ABDOMEN: Soft, non-distended. No tenderness to palpation. No rebound or guarding. No masses. LOWER EXTREMITIES: Calves are equal size bilaterally and non-tender. 2+ edema. No discoloration. NEURO: No motor deficits noted. SKIN: No rash or jaundice noted. Laboratory Results 11/12/17 08:00 Red Blood Count 4.03, Mean Corpuscular Volume 78.7, Mean Corpuscular Hemoglobin 25.3, Mean Corpuscular Hemoglobin Concent 32.2, Mean Platelet Volume 8.1, Neutrophils (%) (Auto) 89.3, Lymphocytes (%) (Auto) 6.9, Monocytes (%) (Auto) 2.6, Eosinophils (%) (Auto) 0.1, Basophils (%) (Auto) 0.1, Neutrophils # (Auto) 13.95, Lymphocytes # (Auto) 1.08, Monocytes # (Auto) 0.40, Eosinophils # (Auto) 0.01, Basophils # (Auto) 0.01 11/12/17 08:00 Test 11/11/17 19:15 11/11/17 19:16 11/12/17 08:00 11/12/17 12:43 Prothrombin Time 11.9 SECONDS (9.0-12.0) Prothromb Time International Ratio 1.1 (0.9-1.1) Activated Partial Thromboplast Time 26.0 SECONDS (21.0-31.0) Partial Thromboplastin Ratio 1.0 Venous Blood pH 7.50 (7.36-7.41) Venous Blood Partial Pressure CO2 39 mmHg (38.0-50.0) Venous Blood Partial Pressure O2 69 mmHg Venous Blood HCO3 29 mmol/L Venous Blood Oxygen Saturation 93.7 % Venous Blood Base Excess 5.8 mEq/L Total Bilirubin 0.7 mg/dl (0.2-1) Direct Bilirubin 0.2 mg/dl (0-0.2) Aspartate Amino Transf (AST/SGOT) 10 U/L (15-37) Alanine Aminotransferase (ALT/SGPT) 30 U/L (12-78) Alkaline Phosphatase 91 U/L (45-117) Troponin I < 0.015 ng/ml (0-0.045) Total Protein 7.7 gm/dl (6.4-8.2) Albumin 3.4 gm/dl (3.4-5.0) Thyroid Stimulating Hormone (TSH) 0.867 uIu/ml (0.300-4.500) White Blood Count 15.61 K/uL (4.8-10.8) Red Blood Count 4.03 M/uL (4.2-5.4) Hemoglobin 10.2 g/dL (12.0-16.0) Hematocrit 31.7 % (37-47) Mean Corpuscular Volume 78.7 fL (80-100) Mean Corpuscular Hemoglobin 25.3 pg (25-34) Mean Corpuscular Hemoglobin Concent 32.2 g/dl (32-36) Platelet Count 365 K/uL (130-400) Mean Platelet Volume 8.1 fL (7.4-10.4) Neutrophils (%) (Auto) 89.3 % Lymphocytes (%) (Auto) 6.9 % Monocytes (%) (Auto) 2.6 % Eosinophils (%) (Auto) 0.1 % Basophils (%) (Auto) 0.1 % Neutrophils # (Auto) 13.95 K/uL (1.4-6.5) Lymphocytes # (Auto) 1.08 K/uL (1.2-3.4) Monocytes # (Auto) 0.40 K/uL (0.11-0.59) Eosinophils # (Auto) 0.01 K/uL (0-0.5) Basophils # (Auto) 0.01 K/uL (0-0.2) RDW Standard Deviation 49.4 fL (36.4-46.3) RDW Coefficient of Variation 17.3 % (11.5-14.5) Immature Granulocyte % (Auto) 1.0 % Immature Granulocyte # (Auto) 0.16 K/uL (0.00-0.02) Anion Gap 9.0 mmol/L (3-11) Est Creatinine Clear Calc Drug Dose 63.9 ml/min Estimated GFR () 84.8 Estimated GFR (Non- 73.1 BUN/Creatinine Ratio 22.4 (10-20) Calcium Level 8.4 mg/dl (8.5-10.1) Magnesium Level 2.1 mg/dl (1.8-2.4) Theophylline Level 12 mcg/ml (10-20) Bedside Glucose 147 mg/dl (70-90) Assessment and Plan Patient is a 72 year old female with a past medical history of COPD on home oxygen, PE 06/2016 currently on Xarelto, GERD, DM, KATHLEEN, and MDD that presents after a syncopal episode this evening. Syncopal Episode 2/2 Acute Dehydration and Prolonged QTc - EKG: Prolonged QTc 646 --> has since gone down to 510 --> 480. Improving. - Positive orthostatics --> IV NS + 20 K+ @ 125 mls/hr running. - Abdominal CT: No evidence of acute diverticulitis, acute appendicitis, or bowel obstructions - Head CT: No acute intracranial abnormalities - C-Spine CT: No acute fractures or subluxations - Admit to Telemetry - reviewing home medications reveals multiple possibilities for offending drugs , for instance -- Theophylline (Rohit-24), 400 MG PO QAM --> level is nl here (12). Caution in heart dz due to decreased clearance, and increased oxygen demand. Azithromycin (Zithromax), 250 MG PO UD --> apparently taken for prophylaxis have held for now, will likely DC on discharge and switch to doxycycline --Currently holding home Clonazepam, Lexapro, Hydroxyzine, Nortriptyline, Seroquel, and Remeron -- psych consult ordered, awaiting recommendations for med review - Per pulmonology's note during previous admission in mid Oct, they discussed DCing Brovana and Theophylline (as a combination of this and azithromycin could lead to a high risk of cardiac arrhythmias) as well as other inhalers as she is not able to properly perform the technique. Anxiety/Depression medical management - Psych consult ordered, appreciate recs: in summary, safe to hold meds until QTc resolved. "- Continue to hold medications until normalization of QTc. - Would consider cardiology consult to determine safety/risk of restarting medications, especially as it seems many offense medications in play, both general and psychiatric. Other possible etiologies for QTc prolongation in question as well. - Will gather collateral information from outpatient prescriber in regard to risk for decompensation and recommendations for medication changes as she has been a longstanding patient, reporting to be well-controlled. - Will continue to follow and provide recommendations" Electrolyte abnormalities Hypokalemia - repleted, resolved Hypomagnesemia - repleted, resolved Hyponatremia/ Hypochloremia - repleting, improving. Recheck BMP am Diabetes Mellitus - Human Insulin 20 units QAM - ISS with BSG checks AC/HS DARI - likely 2/2 dehydration - rehydrating as above, Cnc Maintenance Technician resolved. Chronic respiratory failure with hypoxia - recently admitted for COPD exacerbation in Mid October ( in the last year ) - has not entirely resolved. - Currently on home oxygen 2L at saturating well - Wheezing with decreased breath sounds bilaterally - Steroid therapy restarted with IV Solu-Medrol 40mg IV q8h - CXR: No acute process Leukocytosis - WBC 19.48. Afebrile. - Most likely secondary to recent steroid use, dehydration, and viral gastroenteritis - At this time do not suspect C diff due to limited bowel movements, although with recent hospitalization and antibiotic use may warrant consideration DVTppx - Continue Lovenox - Hgb stable from previous admission and no concern of acute bleeding at this time from fall Code Status - Full Resuscitation Resident Physician Supervision Note: I was present with Dr. Patricio during the history and exam. I discussed the case with the resident and agree with the findings and plan as documented in the note. Repeat EKG shows decreasing QTc. She is on several medications that can prolong the QT interval, but the most recent addition of Zithromax may be the culprit. If QTc is normal in a.m., could selectively start some of her psychiatric medications. If she indeed needs prophylactic antibiotics for her pulmonary disease, would need to consider a different antibiotic. Documented By: Joe Ren Continued [facility] stay due to: abnormal vital signs, multiple IV medications needed Resident Tracking Resident Involvement: Resident Care Provided Care Provided: Adult Hospital Medicine
[2017-11-12] MEDS: ALBUTEROL 0.083% NEBU SOLN 3 ML VIAL INH PRN ×2 (14:25→23:13)
--- NOTE | 2017-11-12 15:01 | Psychiatric Consultation ---
Psychiatric Consultation Date of Service: Nov 12, 2017. ID: Patient information reviewed. 72-year-old female admitted following multiple syncopal episodes over the last 2 days. Pt had recent admission for exacerbation of COPD, and reports being discharged about 1 week ago. Psychiatric consult requested as patient's QTc was found to be prolonged on admission at 646. Review of medications and recommendations were requested. CC: "I've been having bad breathing problems. I've been passing out and hitting my head." HPI: Mini Clemons is a 72-year-old female admitted to the medical floor following several episodes of syncope over the last few days. Etiology is unknown and current concerns that QTc prolongation may be contributing. Pt is seen on psychiatric consult service for medication review and recommendations in light of QTc prolongation (646 on admission; reduced to 510 on 11/12). Previous admission on 10/28 showed QTc of 483. Current psychiatric medications being held include: clonazepam, escitalopram, hydroxyzine, nortriptyline, quetiapine, and mirtazapine. Other contributing etiologies in questions include electrolyte abnormalities (hypokalemia, hypomagnesemia, hyponatremia/ hypochloremia), history of diabetes, and other medications. Pt does not report any recent changes to her psychiatric medications, but her outpatient provider has been contacted to offer insight into current condition and any medication recommendations. Pt reports she has been treated for depression and anxiety, but feels she has been stable recently. Pt states, "I get upset, I'm used to doing things, but I'm nowhere near the point of giving up." Pt reports prior inpatient hospitalization in 1989 at [place] for 2 weeks; 1994 at [facility], and another hospitalization at [facility] in the last few years. She states these were all due to "mental breakdowns". Pt denies previous suicide attempts and denies that she is currently suicidal. Pt feels very stable with regard to her mental health and feels that her current medications have been beneficial to her. ROS: Psych: denies symptoms other than stated above Constitutional: denied Cardiovascular: denied GI: reports frequent indigestion, recent dry heaving Neurologic/Musculoskeletal: reports occasional muscle spasms Remainder of 10 body systems also reviewed and denied other than noted above. MSE: The patient presented as alert and cooperative. The patient was dressed in hospital gown. Eye contact was good. No psychomotor restlessness or agitation was noted. Speech was normal in rate, rhythm, and volume. Affect was mood congruent. The patients mood appeared euthymic. Thought processes were clear, coherent and goal directed without evidence of loose associations or flight of ideas. Thought content/perception was reality based without delusions. The patient denied suicidal and homicidal ideation. The patient denied hallucinations and did not appear to be responding to internal stimuli. Cognition was grossly intact with orientation to person, place and time. Fund of Knowledge/Intelligence were consistent with level of education. Insight and Judgement were fair. Imp: Pt reports stability with regard to mood on current psychiatric medications. Hoping to gain collateral from patient's current outpatient prescriber in regard to diagnosis, risk for decompensation, and potential medication adjustments. Although many of her medications can cause QTc prolongation, would be beneficial to determine if medication changes have been made lately as QTc has been ~450 with previous admissions. Pt unable to provide adequate history of medication changes. Very reasonable to hold medications until normalization of QTc, agree with regular EKGs to determine resolution. Would recommend cardiology consult to determine safety/risk of restarting medications. Will provide recommendations from patient's outpatient prescriber when available. Plan: - Continue to hold medications until normalization of QTc. - Would consider cardiology consult to determine safety/risk of restarting medications, especially as it seems many offense medications in play, both general and psychiatric. Other possible etiologies for QTc prolongation in question as well. - Will gather collateral information from outpatient prescriber in regard to risk for decompensation and recommendations for medication changes as she has been a longstanding patient, reporting to be well-controlled. - Will continue to follow and provide recommendations Dr. Macias has personally been involved in the review of the above case and development of recommendations.
[2017-11-12] MEDS ORDERED: COUGH DROP (SUGAR FREE) LOZ 24 LOZ/1 BOX LOZ ONE (15:43)
[2017-11-12] MEDS ORDERED: COUGH DROP (SUGAR FREE) LOZ 24 LOZ/1 BOX LOZ PRN (16:00)
[2017-11-12] MEDS: RIVAROXABAN 10 MG TAB PO SCH (16:52)
[2017-11-12] MEDS: MONTELUKAST SOD 10 MG TAB PO SCH (20:57)
[2017-11-13] VITALS (10 sets, daily range): BP systolic 88–146; BP diastolic 63–94; PULSE 78–112; TEMP 36.5–36.9; O2SAT 90–97
[2017-11-13] MEDS ORDERED: PROMETHAZINE HCL INJ 12.5 MG in SODIUM CHLORIDE 0.9% 50ML 50 ML IV STA (00:51)
[2017-11-13] MEDS: ALBUTEROL 0.083% NEBU SOLN 3 ML VIAL INH PRN (04:30)
[2017-11-13] MEDS: LEVOTHYROXINE 25 MCG TAB PO SCH (06:02)
[2017-11-13] MEDS: ARFORMOTEROL TART 15MCG/2ML VIAL INH SCH ×2 (07:18→19:07)
[2017-11-13] MEDS: BUDESONIDE 0.5 MG/2 ML VIAL (PULMICORT) INH SCH ×2 (07:18→19:07)
[2017-11-13] MEDS: CHOLECALCIFEROL 400 INTER.UNIT TAB PO SCH (07:32)
[2017-11-13] MEDS: ROFLUMILAST 500 MCG TAB PO SCH (07:32)
[2017-11-13] MEDS: TIOTROPIUM BROMIDE 5 PUFF/90 MCG INH INH SCH (07:32)
[2017-11-13] MEDS: METHYLPREDNISOLONE IV 40 MG in SYRINGE 0 ML IV SCH ×2 (07:33→17:18)
[2017-11-13] MEDS: FLUTICASONE PROPIONATE NA SPR 16 GM BTL NAE SCH (07:33)
[2017-11-13] MEDS: POTASSIUM CHLORIDE 20 MEQ TABCR PO SCH ×2 (07:33→21:44)
[2017-11-13] MEDS: INSULIN HUMAN NPH SC SCH (07:37)
[2017-11-13] MEDS: INSULIN ASPART 100 UNITS/ML 3 ML PEN SC SCH ×4 (07:37→21:44)
[2017-11-13 08:36] LABS: BASO ABS # 0.01 K/uL (0-0.2); HEMOGLOBIN 10.2 g/dL (12.0-16.0); IG# 0.25 K/uL (0.00-0.02); LYMPH % 6.8 %; LYMPH ABS # 1.43 K/uL (1.2-3.4); MEAN CELL VOLUME 79.6 fL (80-100); MEAN CORPUSCULAR HEMOGLOBIN 25.4 pg (25-34); MEAN CORPUSCULAR HGB CONC 31.9 g/dl (32-36); MEAN PLATELET VOLUME 8.4 fL (7.4-10.4); MONO % 5.3 %; MONO ABS # 1.11 K/uL (0.11-0.59); NEUT % 86.7 %; PLATELET COUNT 408 K/uL (130-400); RED CELL DISTRIBUTION WIDTH CV 17.1 % (11.5-14.5); RED CELL DISTRIBUTION WIDTH SD 49.2 fL (36.4-46.3)
[2017-11-13 08:58] LABS: CALCIUM 8.4 mg/dl (8.5-10.1); CREATININE 0.9 mg/dl (0.60-1.20); POTASSIUM 3.2 mmol/L (3.5-5.1)
--- NOTE | 2017-11-13 10:59 | Psychiatric Progress Notes ---
Psychiatric Progress Note Date of Service Nov 13, 2017. Notes patient seen as follow-up to initial psychiatric consultation. Remains on tele but QTc improved to 450. MS assessed. Continues to report stable mood, oriented, no SI/Medrano. Agree no indication for inpatient psychiatric admission. Reviewed med list, liaison Jackson to attempt to move up appt with Dr. Donovan via [facility]. Patient's TCA nortriptyline should not be restarted. Remeron less likely to impact QTc than probably SSRI. Patient agreeable to Remeron 30 mg po qhs (lower dose) and resume Seroquel 200 mg po qhs with repeat EKG. As patient unlikely to be hospitalized much longer, I would continue on these meds alone until she contacts/has f/u with outpatient prescriber. Ideally would be seen within 1-2 weeks of hospital discharge.
[2017-11-13] MEDS ORDERED: SODIUM CHLORIDE 0.9% 500ML 500 ML IV SCH (12:30)
--- NOTE | 2017-11-13 14:26 | Psychiatric Progress Notes ---
Psychiatric Progress Note Date of Service Nov 13, 2017. Notes 11/13/2017 Pt's case discussed with outpatient psychiatric provider Dr. Centeno. Pt is reported to have been on similar combination of medications since admission to [facility] in 09/2016 with normal QTc of 403. He reports medications at that time were Seroquel XR 400mg qHS, Remeron 45mg, nortriptyline and Zoloft. Given consistency of QTc previously, would question psychiatric medications being cause of prolongation. Would question hydroxyzine and Lexapro of all psychiatric medications as these have been the most recent additions and previous EKGs have remained with QTc ~450 rather consistently. Outpatient provider states the patient has "a lot of anxiety" and "persistent delusional state" with concerns that condition would worsen if Seroquel continues to be held. Per Dr. Beltre previous recommendations, would restart Seroquel at 200mg now that QTc is 459. States next recommended restart would be Lexapro 10mg with ongoing monitoring of QTc. If continues to tolerate medications, recommendations to increase Seroquel for fear of decompensation.
--- NOTE | 2017-11-13 16:29 | Family Medicine Progress Note ---
Progress Note Date of Service Nov 13, 2017. Subjective Pt resting comfortably in bed, however she states that her shingles have flared up again, located in her right buttocks. Is in mild pain. Otherwise, breathing well, eating well, voiding well. Denies chest pain or palpitations or difficulty breathing. ROS See HPI for pertinent positives and negatives. Medications Current Inpatient Medications Medications (Trade) Dose Ordered Sig/Lulú Route Start Time Stop Time Status Last Admin Dose Admin Ioversol (Optiray 320) 100 ml UD PRN IV 11/11/17 19:00 11/15/17 18:59 Acetaminophen (Tylenol Tab) 650 mg Q4H PRN PO 11/11/17 22:30 12/11/17 22:29 11/12/17 22:24 650 MG Insulin Aspart (novoLOG ASPART) SLIDING SCALE If C... ACHS SC 11/12/17 07:00 12/12/17 06:59 11/13/17 12:34 7 UNITS Glucose (Glucose 40% Gel) 15-30 GRAMS 15 GRAMS... UD PRN PO 11/11/17 22:30 12/11/17 22:29 Glucose (Glucose Chew Tab) 4-8 Tablets 4 Tabl... UD PRN PO 11/11/17 22:30 12/11/17 22:29 Dextrose (Dextrose 50% 50ML Syringe) 25-50ML OF 50% DW IV FOR... UD PRN IV 11/11/17 22:30 12/11/17 22:29 Glucagon (Glucagon Inj) 1 mg UD PRN SQ 11/11/17 22:30 12/11/17 22:29 Albuterol Sulfate (Ventolin 0.083% 2.5MG/3ML Neb) 2.5 mg Q4H PRN INH 11/11/17 22:30 12/11/17 22:29 11/13/17 04:30 2.5 MG Arformoterol Tartrate (Brovana 15MCG/ 2ML Neb Soln) 15 mcg BIDR INH 11/12/17 08:00 12/12/17 07:59 11/13/17 07:18 15 MCG Budesonide (Pulmicort Respules 0.5MG/ 2ML Neb Soln) 0.5 mg BIDR INH 3/1/18 08:00 12/12/17 07:59 11/13/17 07:18 0.5 MG Cholecalciferol (Vitamin D Tab) 400 inter.unit QAM PO 11/12/17 09:00 12/12/17 08:59 11/13/17 07:32 400 INTER.UNIT Fluticasone Propionate (Flonase Nasal [place]) 2 sprays DAILY NANCY 11/12/17 09:00 12/12/17 08:59 11/13/17 07:33 2 SPRAYS Insulin Human NPH (novoLIN-N NPH) 20 units QAM SC 11/12/17 09:00 12/12/17 08:59 11/13/17 07:37 20 UNITS Levothyroxine Sodium (Synthroid Tab) 25 mcg DAILYBB PO 11/12/17 07:00 12/12/17 06:59 11/13/17 06:02 25 MCG Montelukast Sodium (Singulair Tab) 10 mg HS PO 11/12/17 21:00 12/12/17 20:59 11/12/17 20:57 10 MG Potassium Chloride (Klor-Con Tab) 20 meq BID PO 11/12/17 09:00 12/12/17 08:59 11/13/17 07:33 20 MEQ Rivaroxaban (Xarelto Tab) 20 mg QDD PO 11/12/17 16:45 12/12/17 17:59 11/12/17 16:52 20 MG Roflumilast (Daliresp Tab) 500 mcg DAILY PO 11/12/17 09:00 12/12/17 08:59 11/13/17 07:32 500 MCG Tiotropium [place] (Spiriva Handihaler Inhaler) 1 puff DAILY INH 11/12/17 09:00 12/12/17 08:59 11/13/17 07:32 1 PUFF Methylprednisolone Sodium Succinate 40 mg/Syringe 0.64 ml @ 1.5 mls/min Q8H IV 11/12/17 00:00 12/12/17 00:00 11/13/17 07:33 1.5 MLS/MIN Menthol (Nice Kena) 1 kena PRN PRN KENA 11/12/17 16:00 12/12/17 15:59 Sodium Chloride 500 ml @ 100 mls/hr Q5H IV 11/13/17 12:30 11/13/17 17:29 11/13/17 12:35 100 MLS/HR Mirtazapine (Remeron Tab) 30 mg HS PO 11/13/17 21:00 12/13/17 20:59 Quetiapine Fumarate (seroQUEL TAB) 200 mg HS PO 11/13/17 21:00 12/13/17 20:59 Objective Vital Signs Date Time Temp Pulse Resp B/P (MAP) Pulse Ox O2 Delivery O2 Flow Rate FiO2 11/13/17 12:00 Nasal Cannula 2.0 11/13/17 11:53 36.6 87 18 131/77 (95) 90 11/13/17 08:03 36.9 106 22 146/94 (111) 90 121/81 (94) 105/63 (77) 11/13/17 08:00 Nasal Cannula 2.0 11/13/17 07:20 89 15 96 Nasal Cannula 3.0 11/13/17 04:30 88 18 97 Nasal Cannula 2.0 11/13/17 04:00 Nasal Cannula 2.0 11/13/17 03:35 36.8 86 17 127/71 (89) 97 Nasal Cannula 2.0 89 116/77 (90) 112 88/73 (78) 11/13/17 00:00 Nasal Cannula 2.0 11/12/17 23:38 37.3 102 16 130/71 (90) 94 Room Air 11/12/17 23:13 104 18 96 Nasal Cannula 2.0 11/12/17 20:17 36.6 105 18 155/73 (100) 96 Nasal Cannula 2.0 11/12/17 20:00 96 Nasal Cannula 2.0 11/12/17 19:10 103 18 96 Nasal Cannula 2.0 11/12/17 16:00 97 Nasal Cannula 2.0 11/12/17 15:55 115 24 114/70 (85) 11/12/17 15:52 106 20 120/75 (90) 11/12/17 15:50 36.6 102 20 117/70 (86) 97 2.0 11/12/17 14:25 96 16 98 Nasal Cannula 2.0 Physical Exam Notes: GENERAL: Awake, alert, in no distress. NC in place. HENT: Normocephalic. Tenderness to palpation at posterior neck muscles and occiput. EYES: Normal conjunctiva. Sclera non-icteric. RESPIRATORY: Decreased breath sounds bilaterally. CARDIAC: Regular rate, normal rhythm. Extremities warm and well perfused. Pulses equal. Left sided carotid bruit. ABDOMEN: Soft, non-distended. No tenderness to palpation. No rebound or guarding. No masses. LOWER EXTREMITIES: Calves are equal size bilaterally and non-tender. 2+ edema. No discoloration. NEURO: No motor deficits noted. SKIN: Small unilateral rash noted on right buttock. Laboratory Results Test 11/13/17 08:08 11/13/17 20:32 11/14/17 04:44 RDW Standard Deviation 49.2 fL (36.4-46.3) RDW Coefficient of Variation 17.1 % (11.5-14.5) White Blood Count 21.00 K/uL (4.8-10.8) Red Blood Count 4.02 M/uL (4.2-5.4) Hemoglobin 10.2 g/dL (12.0-16.0) Hematocrit 32.0 % (37-47) Mean Corpuscular Volume 79.6 fL (80-100) Mean Corpuscular Hemoglobin 25.4 pg (25-34) Mean Corpuscular Hemoglobin Concent 31.9 g/dl (32-36) Platelet Count 408 K/uL (130-400) Mean Platelet Volume 8.4 fL (7.4-10.4) Neutrophils (%) (Auto) 86.7 % Lymphocytes (%) (Auto) 6.8 % Monocytes (%) (Auto) 5.3 % Eosinophils (%) (Auto) 0.0 % Basophils (%) (Auto) 0.0 % Neutrophils # (Auto) 18.20 K/uL (1.4-6.5) Lymphocytes # (Auto) 1.43 K/uL (1.2-3.4) Monocytes # (Auto) 1.11 K/uL (0.11-0.59) Eosinophils # (Auto) 0.00 K/uL (0-0.5) Basophils # (Auto) 0.01 K/uL (0-0.2) Immature Granulocyte % (Auto) 1.2 % Immature Granulocyte # (Auto) 0.25 K/uL (0.00-0.02) Est Creatinine Clear Calc Drug Dose 56.7 ml/min Bedside Glucose 203 mg/dl (70-90) Assessment and Plan Patient is a 72 year old female with a past medical history of COPD on home oxygen, PE 06/2016 currently on Xarelto, GERD, DM, KATHLEEN, and MDD that presents after 2 syncopal episodes this past week. Syncopal Episode likely 2/2 Acute Dehydration and Prolonged QTc - EKG: Prolonged QTc 646 --> has since gone down to 510 --> 450. Improving. - Positive orthostatics --> IV NSS 500cc bolus given. RECHECK. - Abdominal CT: No evidence of acute diverticulitis, acute appendicitis, or bowel obstructions - Head CT: No acute intracranial abnormalities - C-Spine CT: No acute fractures or subluxations - Admit to Telemetry - reviewing home medications reveals multiple possibilities for offending drugs , for instance -- Theophylline (Rohit-24), 400 MG PO QAM --> level is nl here (12). Caution in heart dz due to decreased clearance, and increased oxygen demand. Azithromycin (Zithromax), 250 MG PO UD --> Begun on prior discharge -- likely culprit as previous EKGs had normal QTc. Can consider switch to doxycycline if necessary. --Restarting Clonazepam, Lexapro, Hydroxyzine, Nortriptyline, Seroquel, and Remeron -- psych consult ordered, per recommendations for med review - Per pulmonology's note during previous admission in mid Oct, they discussed DCing Brovana and Theophylline (as a combination of this and azithromycin could lead to a high risk of cardiac arrhythmias) as well as other inhalers as she is not able to properly perform the technique. Anxiety/Depression medical management - Psych consult ordered, appreciate recs: in summary, safe to hold meds until QTc resolved. See note. Electrolyte abnormalities Hypokalemia - repleting. Follow. Hypomagnesemia - repleted. Follow. Hyponatremia/ Hypochloremia - repleting, improving. Recheck BMP am Diabetes Mellitus - Human Insulin 20 units QAM - ISS with BSG checks AC/HS DARI - likely 2/2 dehydration - rehydrating as above, Operations Manager/Coordinator resolved. Chronic respiratory failure with hypoxia - recently admitted for COPD exacerbation in Mid October ( in the last year ) - has not entirely resolved. - Currently on home oxygen 2L at saturating well - Wheezing with decreased breath sounds bilaterally - Steroid therapy restarted with IV Solu-Medrol 40mg IV q8h - CXR: No acute process Leukocytosis - Afebrile. - Most likely secondary to recent steroid use, dehydration, and viral gastroenteritis - At this time do not suspect C diff due to limited bowel movements, although with recent hospitalization and antibiotic use may warrant consideration DVTppx - Continue Lovenox - Hgb stable from previous admission and no concern of acute bleeding at this time from fall Code Status - Full Resuscitation Resident Tracking Resident Involvement: Resident Care Provided Care Provided: Adult Hospital Medicine History Resident Physician Supervision Note: I was present with Dr. Patricio during the history and exam. I discussed the case with the resident and agree with the findings and plan as documented in the note. Any exceptions or clarifications are listed here. Pt reports gradual improvement in malaise and shortness of breath while at rest. Denies any worsening anxiety or fatigue. During the sabianist of her illness w/ cough and SOB, the patient's recurrent shingles infection located on her right buttock appears to have flared. General Appearance: no apparent distress, obese Neurologic/Psychiatric: alert, normal mood/affect, oriented x 3 Skin Characteristics: normal color, rash (healing vesciular rash of the right proximal thigh/buttock c/w shingles) Assessment/Plan 72 y/o female h/o COPD on home O2, DMII prseents w/ syncopal episode and prolonged QT Syncopal episode 2/2 prolonged QT - psychiatric consultation - restart medications (excepting azithromycin), repeat EKG in AM Orthostasis - 500 cc bolus this AM, repeat orthostatics in afternoon and then repeat bolus if persistent, monitor BMP Depression/anxiety - as above COPD w/ CRF on home 2LNC - transition to PO steroid taper, neb therapy PRN Electrolytes DMII - continue lantus and ISS DARI resolved FULL CODE VTE PPX - lovenox
[2017-11-13] MEDS ORDERED: NURSING DECISION MEDICATION ORDER SCH (17:00)
[2017-11-13] MEDS ORDERED: COUGH DROP (SUGAR FREE) LOZ 24 LOZ/1 BOX LOZ PRN (17:15)
[2017-11-13] MEDS: RIVAROXABAN 10 MG TAB PO SCH (17:19)
[2017-11-13] MEDS: MIRTAZAPINE TAB 15 MG TAB PO SCH (21:44)
[2017-11-13] MEDS: MONTELUKAST SOD 10 MG TAB PO SCH (21:45)
[2017-11-13] MEDS: QUETIAPINE FUMARATE 200 MG TAB PO SCH (21:45)
[2017-11-14] VITALS (10 sets, daily range): BP systolic 113–146; BP diastolic 59–89; PULSE 64–102; TEMP 36.5–36.9; O2SAT 92–100
[2017-11-14] MEDS: METHYLPREDNISOLONE IV 40 MG in SYRINGE 0 ML IV SCH ×3 (00:11→17:19)
[2017-11-14] MEDS: LEVOTHYROXINE 25 MCG TAB PO SCH (06:07)
[2017-11-14] MEDS: ARFORMOTEROL TART 15MCG/2ML VIAL INH SCH ×2 (06:15→19:19)
[2017-11-14] MEDS: BUDESONIDE 0.5 MG/2 ML VIAL (PULMICORT) INH SCH ×2 (06:15→19:19)
[2017-11-14 06:24] LABS: BASO % 0.1 %; BASO ABS # 0.01 K/uL (0-0.2); HEMATOCRIT 31.1 % (37-47); HEMOGLOBIN 9.9 g/dL (12.0-16.0); IG# 0.15 K/uL (0.00-0.02); LYMPH % 6.3 %; LYMPH ABS # 0.84 K/uL (1.2-3.4); MEAN CELL VOLUME 79.9 fL (80-100); MEAN CORPUSCULAR HEMOGLOBIN 25.4 pg (25-34); MEAN CORPUSCULAR HGB CONC 31.8 g/dl (32-36); MONO % 3.6 %; MONO ABS # 0.48 K/uL (0.11-0.59); NEUT % 88.9 %; NEUT ABS # 11.86 K/uL (1.4-6.5); PLATELET COUNT 296 K/uL (130-400); RED CELL DISTRIBUTION WIDTH CV 17.2 % (11.5-14.5); RED CELL DISTRIBUTION WIDTH SD 49.5 fL (36.4-46.3); WHITE BLOOD COUNT 13.34 K/uL (4.8-10.8)
[2017-11-14 06:49] LABS: CALCIUM 8.7 mg/dl (8.5-10.1); CREATININE 0.68 mg/dl (0.60-1.20)
[2017-11-14] MEDS: ROFLUMILAST 500 MCG TAB PO SCH (10:00)
[2017-11-14] MEDS: TIOTROPIUM BROMIDE 5 PUFF/90 MCG INH INH SCH (10:00)
[2017-11-14] MEDS: CHOLECALCIFEROL 400 INTER.UNIT TAB PO SCH (10:00)
[2017-11-14] MEDS: FLUTICASONE PROPIONATE NA SPR 16 GM BTL NAE SCH (10:01)
[2017-11-14] MEDS: INSULIN ASPART 100 UNITS/ML 3 ML PEN SC SCH ×4 (10:04→21:04)
[2017-11-14] MEDS: INSULIN HUMAN NPH SC SCH (10:04)
[2017-11-14] MEDS: POTASSIUM CHLORIDE 20 MEQ TABCR PO SCH ×2 (10:05→21:00)
[2017-11-14] MEDS: ALBUTEROL 0.083% NEBU SOLN 3 ML VIAL INH PRN (15:03)
[2017-11-14] MEDS ORDERED: SRQ200 PO (16:45)
[2017-11-14] MEDS ORDERED: RMR15 PO (16:45)
--- NOTE | 2017-11-14 16:47 | Discharge Summary ---
Discharge Summary Date of Service Nov 14, 2017. Discharge Summary Admission Date: Nov 11, 2017 at 22:35 Discharge Date: Nov 15, 2017 Discharge Disposition: Home with services Principal Diagnosis: Prolonged QTc Immunizations: Have You Had Influenza Vaccine: Yes History of Tetanus Vaccine?: Yes History of Pneumococcal: Yes History of Hepatitis B Vaccine: Unknown Medication Reconciliation New Medications: Doxycycline Monohydrate (Monodox) 100 Mg Cap 100 MG PO DAILY, #30 CAP Prednisone (Prednisone) 20 Mg Tab 10 MG PO DAILY, #10 TAB 40mg (4 tab), then 30mg (3 tab), then 20mg (2 tab), then 10mg (1 tab) daily, then stop. Mirtazapine (Mirtazapine) 15 Mg Tab 30 MG PO HS, #16 TAB Quetiapine Fumarate (Seroquel) 200 Mg Tab 200 MG PO HS, #16 TAB Continued Medications: Albuterol Sulf (Albuterol Sulfate) 2.5 Mg/3 Ml Nebu 2.5 MG NEB Q4H PRN for SOB/Wheezing Arformoterol Tartrate (Brovana) 15 Mcg/2 Ml Neb 15 MCG NEB BID, INHALER Bisacodyl (Bisacodyl) 5 Mg Tab 10 MG PO DAILY PRN for Constipation, TAB Budesonide (Pulmicort Respules 0.5MG/2ML) 0.5 Mg/2 Ml Nebu 0.5 MG NEB BID, EA Calcium Carbonate-Cholecalcife (Oyster Shell Calcium + D) 1 Tab Tab 1 TAB PO QAM Cholecalciferol (Vitamin D 400 Iu) 400 Unit Cap 400 INTER.UNIT PO QAM Clonazepam (Clonazepam) 0.5 Mg Tab 0.5 MG PO Q12H PRN for Anxiety/Agitation Escitalopram Oxalate (Lexapro) 20 Mg Tab 20 MG PO DAILY, TAB Fluticasone Propionate (Nasal) (Flonase Allergy Relief) 50 Mcg/Act Spr 1 SPRAY NANCY DAILY Home O2 Therapy (Oxygen) Gas 2-3 LITERS NA CONTINOUS, BTL Hydroxyzine HCl (Hydroxyzine HCl) 10 Mg Tab 10 MG PO TID PRN for Anxiety Insulin Human NPH (Humulin N) 100 Units/Ml Susp 20 UNITS SC QAM Ipratropium-Albuterol (Duoneb) 3 Ml Nebu 1 TREATMENT INH Q4WA PRN for SOB/Wheezing, INHA Levothyroxine Sodium (Synthroid) 25 Mcg Tab 25 MCG PO QAM Meloxicam (Meloxicam) 7.5 Mg Tab 7.5 MG PO DAILY Metformin Hcl (Glucophage) 1,000 Mg Tab 1000 MG PO BID, TAB Montelukast Sodium (Singulair) 10 Mg Tab 10 MG PO HS Multiple Vitamins W/ Iron (Multi Vitamin with Iron) 1 Tab Tab 1 TAB PO QAM Polyethylene Glycol 3350 (Miralax) 1 Pow Pow 17 GM PO DAILY PRN for Constipation, GM Potassium Chloride (Klor-Con M20) 20 Meq Tabcr 20 MEQ PO BID Prednisone (Prednisone) 10 Mg Tab 10 MG PO UD, #100 TAB 6 tabs x 2 days then 5 tabs x 2 days then 4 tabs x 2 days then 3 tabs x 2 days then 2 tabs x 2 days then 1 daily Rivaroxaban (Xarelto) 20 Mg Tab 20 MG PO QAM, TAB Roflumilast (Daliresp) 500 Mcg Tab 500 MCG PO DAILY for 30 Days, #30 TAB Theophylline (Rohit-24) 400 Mg Capcr 400 MG PO QAM Tiotropium [place] (Spiriva Handihaler) 30 Puff/540 Mcg Aerp 1 CAP INH DAILY Discontinued Medications: Azithromycin (Zithromax) 250 Mg Tab 250 MG PO UD, #20 TAB Mirtazapine (Remeron) 45 Mg Tab 45 MG PO HS Nortriptyline (Pamelor) 10 Mg Cap 10 MG PO HS Quetiapine Fumarate (Seroquel) 400 Mg Tab 400 MG PO HS Discharge Exam Patient denies acute overnight issues. She is breathing comfortably with supplemental oxygen. She's describing some back pain from prolonged bed rest. Keen to work with physical therapy to increased movement. She otherwise denies fevers/chills, headaches, CP, palpitations, dyspnea, abdominal pain, lower extremity swelling or rashes. She is tolerating diet without nausea or vomiting , ambulating without exacerbating symptoms, and voiding and stooling appropriately. ROS is unremarkable except as noted above. Physical Exam: General Appearance: WD/WN, no apparent distress, + pertinent finding Eyes: normal inspection ENT: hearing grossly normal Neck: supple, no adenopathy Respiratory/Chest: no respiratory distress, no accessory muscle use, + decreased breath sounds Cardiovascular: regular rate, rhythm, normal peripheral pulses Abdomen / GI: normal bowel sounds, non tender, soft Extremities: normal inspection, no calf tenderness Neurologic/Psychiatric: alert, normal mood/affect Skin: normal color, warm/dry, no rash Hospital Course Patient is a 72 year old female with a past medical history of COPD on home oxygen, PE 06/2016 currently on Xarelto, GERD, DM, KATHLEEN, and MDD that presents post syncopal episode and found to have QTc prolongation Syncopal episode likely 2/2 acute dehydration and prolonged QTc - Head CT: No acute intracranial abnormalities - C-Spine CT: No acute fractures or subluxations - Abdominal CT: No evidence of acute diverticulitis, acute appendicitis, or bowel obstructions - EKG: Prolonged QTc 646 on admission has since normalized- -> has since normalized - Positive orthostatics but improved with IVF. Encouraged PO intake of fluids - Review of home medications reveals multiple possibilities for offending drugs : d/c azithromycin, and switch to doxycycline instead. - Psych consult ordered, recommendations re: med modifications appreciated: d/c amitriptyline, decrease doses of quetiapine to 200mg HS and mirtazapine to 30mg HS - FOLLOW UP WITH PCP IN 1 WEEK FOR REPEAT EKG Anxiety/Depression medical management - Psych consult ordered, appreciate recs: meds resumed at lowered doses once QTc resolved, with exception of amitriptyline - FOLLOW UP WITH PSYCHIATRIST IN 1-2 WEEKS FOR FURTHER ASSESSMENT OF SYMPTOMS AND MED ADJUSTMENT, WARRANTED Electrolyte abnormalities - Hypokalemia, hypomagnesemia, hyponatremia - resolved Diabetes Mellitus - Human Insulin 20 units QAM + ISS with BSG checks AC/HS - May resume home regimen on discharge DARI - likely 2/2 dehydration - Rehydrated as above, Creatinine normalized. Chronic respiratory failure with hypoxia - CXR: No acute process - Recently admitted for COPD exacerbation in Mid October ( in the last year ) - has not entirely resolved. - Currently on home oxygen 2L and saturating well - Wheezing with decreased breath sounds bilaterally - Steroid therapy IV Solu-Medrol 40mg IV q8h, Upon discharge, a prednisone taper has been prescribed for 5 days, then may resume baseline dose of prednisone Leukocytosis - WBC improving. Afebrile. - Most likely secondary to recent steroid use, dehydration, and viral gastroenteritis DVTppx - Continue Xarelto - Hgb stable from previous admission and no concern of acute bleeding at this time from fall Code Status - Full Resuscitation Total Time Spent: Less than 30 minutes This includes examination of the patient, discharge planning, medication reconciliation, and communication with other providers. Discharge Instructions Please refer to the electronic Patient Visit Report (Discharge Instructions) for additional information. Additional Copies To Anil Rodriguez D.O. Resident Tracking Resident Involvement: Resident Care Provided Care Provided: Adult [facility] Assessment/Plan Resident Physician Supervision Note: I was present with Dr. Soliz during the history and exam. I discussed the case with the resident and agree with the findings and plan as documented in the note. Any exceptions or clarifications are listed here 72 y/o female h/o COPD on home O2, DMII presents w/ syncopal episode and prolonged QT. Tolerated restart of medications at reduced dosing without return of QTc prolongation and will need gradual increase and avoidance of concomittant QT prolonging medications like azithromycin in the future. Tapering steroid therapy for COPD w/ nebs PRN.
--- NOTE | 2017-11-14 17:07 | Discharge Instructions ---
Discharge Instructions Date of Service Nov 15, 2017. Admission Reason for Admission: Qt Prolongation, Syncope Discharge Discharge Diagnosis / Problem: QTc prolongation Discharge Goals Goal(s): Diagnostic testing, Prevent Disease Progression Activity Recommendations Activity Limitations: resume your previous activity . Instructions / Follow-Up Instructions / Follow-Up You were seen in hospital after fainting and upon arrival a cardiac conduction abnormality, called a prolonged QTc was found on EKG. Some medications were held and this improved this value. At time of discharge you are feeling better. Once home, you may continue all the medications, except please note the following changes: STOP azithromycin. Use doxycycline 100mg daily for prophylaxis management against infections instead STOP amitriptyline. Reduced dose of quetiapine (Seroquel) to 200mg nightly Reduced dose of mirtazapine (Remeron) to 30mg nightly Prednisone taper, 4 tabs (40mg) on first day, 3 tabs (30mg) on next day, 2 tabs (20mg) on next day, 1 tab (10mg) on next day, then stop. PLEASE FOLLOW UP WITH YOUR PRIMARY CARE PROVIDER THIS UPCOMING WEEK FOR A REPEAT EKG TO REASSESS THE QTc. They may also need to refill your medications including doxycycline. Please follow up with your psychiatrist in 1-2 weeks, and they will discuss any further medication changes with you. Physical therapy recommends home health services, we will arrange this for you. If you do not have heard about these services by late Thursday afternoon, please call back to inquire about this If you have any more fainting/almost fainting spells or falls, please seek medical care urgently. Thank you for allowing us to participate in your care. Current Hospital Diet Patient's current hospital diet: Diabetes Type 2 Diet Discharge Diet Recommended Diet: Diabetes Type 2 Diet Pending Studies Studies pending at discharge: no Laboratory Results Hemoglobin A1c Test 10/29/17 07:04 Range/Units Estimated Average Glucose 206 mg/dl Hemoglobin A1c 8.8 H 4.5-5.6 % Medical Emergencies . Who to Call and When: Medical Emergencies: If at any time you feel your situation is an emergency, please call 911 immediately. . Non-Emergent Contact Non-Emergency issues call your: Primary Care Provider, Specialist (Psychiatrist ) . . "Provider Documentation" section prepared by Mary Soliz. . Resident Tracking Resident Involvement: Resident Care Provided Care Provided: Adult [facility] Medicine
[2017-11-14] MEDS: RIVAROXABAN 10 MG TAB PO SCH (17:19)
[2017-11-14] MEDS ORDERED: PRED20TA PO (18:02)
[2017-11-14] MEDS ORDERED: DOXY100C76 PO (20:48)
[2017-11-14] MEDS: QUETIAPINE FUMARATE 200 MG TAB PO SCH (21:00)
[2017-11-14] MEDS: MIRTAZAPINE TAB 15 MG TAB PO SCH (21:01)
[2017-11-14] MEDS: MONTELUKAST SOD 10 MG TAB PO SCH (21:01)
[2017-11-15] MEDS: METHYLPREDNISOLONE IV 40 MG in SYRINGE 0 ML IV SCH ×2 (00:25→09:05)
[2017-11-15 02:34] VITALS: PULSE 94; O2SAT 98
[2017-11-15] MEDS: ALBUTEROL 0.083% NEBU SOLN 3 ML VIAL INH PRN ×2 (02:34→11:32)
[2017-11-15] MEDS: LEVOTHYROXINE 25 MCG TAB PO SCH (06:36)
[2017-11-15 07:39] VITALS: BP 105/69; PULSE 87; TEMP 36.9; O2SAT 100
[2017-11-15 07:42] VITALS: PULSE 90; O2SAT 99
[2017-11-15] MEDS: BUDESONIDE 0.5 MG/2 ML VIAL (PULMICORT) INH SCH (07:42)
[2017-11-15] MEDS: ARFORMOTEROL TART 15MCG/2ML VIAL INH SCH (07:42)
[2017-11-15 08:00] VITALS: O2SAT 99
[2017-11-15] MEDS ORDERED: ESCITALOPRAM OXALATE 20 MG TAB PO SCH (09:00)
[2017-11-15] MEDS: ROFLUMILAST 500 MCG TAB PO SCH (09:04)
[2017-11-15] MEDS: TIOTROPIUM BROMIDE 5 PUFF/90 MCG INH INH SCH (09:05)
[2017-11-15] MEDS: FLUTICASONE PROPIONATE NA SPR 16 GM BTL NAE SCH (09:05)
[2017-11-15] MEDS: CHOLECALCIFEROL 400 INTER.UNIT TAB PO SCH (09:05)
[2017-11-15] MEDS: POTASSIUM CHLORIDE 20 MEQ TABCR PO SCH (09:06)
[2017-11-15] MEDS: INSULIN ASPART 100 UNITS/ML 3 ML PEN SC SCH ×2 (09:18→12:22)
[2017-11-15] MEDS: INSULIN HUMAN NPH SC SCH (09:19)
[2017-11-15] MEDS ORDERED: COUGH DROP (SUGAR FREE) LOZ 24 LOZ/1 BOX LOZ PRN (09:30)
[2017-11-15 11:32] VITALS: PULSE 92; O2SAT 99
[2017-11-15 11:53] VITALS: BP 105/69; PULSE 92; TEMP 36.9; O2SAT 99
--- NOTE | 2017-11-15 12:16 | Progress Note ---
Progress Note Date of Service Nov 15, 2017. (Alka. Soliz MD) Progress Note Patient was well today. Denies acute over night events. She is breathing comfortably with supplemental oxygen. She is tolerating diet, ambulating and voiding and stooling appropriately. She otherwise denies fevers/chills, headaches, CP, palpitations, dyspnea, abdominal pain, lower extremity swelling or rashes. Exam: Gen: WD/WN, no apparent distress Resp: no respiratory distress, no accessory muscle use, decreased breath sounds Cardio: regular rate, rhythm, normal peripheral pulses Abdo: normal bowel sounds, non tender, soft LE: normal inspection, no calf tenderness Plan: Plan unchanged from yesterday, see discharge summary (Alka. Soliz MD) Resident Tracking Resident Involvement: Resident Care Provided Care Provided: Adult [facility] (Alka. Soliz MD) Assessment/Plan Resident Physician Supervision Note: I was present with Dr. Soliz during the history and exam. I discussed the case with the resident and agree with the findings and plan as documented in the note. Any exceptions or clarifications are listed here. Examination generally unchanged from previous documentation, plan remains for transition out of hospital. 72 y/o female h/o COPD on home O2, DMII presents w/ syncopal episode and prolonged QT. Tolerated restart of medications at reduced dosing without return of QTc prolongation and will need gradual increase and avoidance of concomittant QT prolonging medications like azithromycin in the future. Tapering steroid therapy for COPD w/ nebs PRN. (Loyd Vela MD)
--- NOTE | 2017-11-18 11:46 | EDITING REQUIRED CODING QUERY ---
CODING QUERY To promote full compliance with coding requirements relating to patient care, provider participation is requested in all cases of edge inker uppers uncertainty. Please assist us with the question(s) below: Coding Question(s): Please specify below, regarding the meaning of DARI as it is not a valid abbreviation. ( x) DARI means Acute Kidney Injury ( ) DARI means Acute Kidney Insufficiency ( ) DARI means other: Specify Physician's Response(s): Thank you Christiane Lua Principal Diagnosis: "_that condition established after study, to be chiefly responsible for occasioning the admission of the patient to the hospital for care." Co-Existing Principal Diagnosis: "_when two or more diagnoses equally meet the criteria for principal diagnosis as determined by the circumstances of admission, diagnostic work up, and/or therapy provided, and the Alphabetic Index, Tabular List, or another coding guideline does not provide sequencing direction, any one of the diagnoses may be sequenced first." "When the physician has documented what appears to be a current diagnosis in the body of the record, but has not included the diagnosis in the final diagnostic statement, the physician should be asked whether the diagnosis should be added." ([facility] 2 QTR90. p3-4)
== END 2017-11-15 12:35 | disposition home health service (06) | DRG 309 ==
LOC: EDBD 18:28 → C.EDB 18:30 → C.EDINP 22:35 → ENRESERV 11-12 11:17 → C.2E 11-12 11:54 → ENRESERV 11-14 18:30 → CANRESERV 11-14 18:30 → ENRESERV 11-14 19:14 → C.MS2W 11-14 20:05
PROVIDERS: ADMIT Student in an Organized Health Care Education/Training Program; ATTEND Family Medicine
DX: I45.81 Long QT syndrome (principal); E87.1 Hypo-osmolality and hyponatremia; N17.9 Acute kidney failure, unspecified; J96.11 Chronic respiratory failure with hypoxia; J44.1 Chronic obstructive pulmonary disease with (acute) exacerbation; E86.0 Dehydration; E87.6 Hypokalemia; E83.42 Hypomagnesemia; E87.8 Other disorders of electrolyte and fluid balance, not elsewhere classified; T36.3X5A Adverse effect of macrolides, initial encounter; D72.829 Elevated white blood cell count, unspecified; T38.0X5A Adverse effect of glucocorticoids and synthetic analogues, initial encounter; M54.2 Cervicalgia; B02.9 Zoster without complications; E11.9 Type 2 diabetes mellitus without complications; F41.1 Generalized anxiety disorder; F32.9 Major depressive disorder, single episode, unspecified; Z79.899 Other long term (current) drug therapy; Z79.01 Long term (current) use of anticoagulants; Z79.4 Long term (current) use of insulin; Z79.52 Long term (current) use of systemic steroids; Z99.81 Dependence on supplemental oxygen; Z85.43 Personal history of malignant neoplasm of ovary; Z87.891 Personal history of nicotine dependence; Z88.7 Allergy status to serum and vaccine; Z91.018 Allergy to other foods; Z91.048 Other nonmedicinal substance allergy status

== ENCOUNTER 2017-12-10 01:36 | Inpatient (IN) | payer OTHER ==
[2017-12-10] VITALS (11 sets, daily range): BP systolic 106–171; BP diastolic 64–81; PULSE 68–120; TEMP 36–37; O2SAT 94–99; Ht 160 cm; Wt 84.3 kg
[~2017-12-10] VITALS: Ht 160 cm; Wt 84.3 kg
[~2017-12-10 01:36] MED LIST changes: +ATR10 PO; -AZIT250T PO; +BISA1TAB15 PO; +CALC-211 PO; -DLC5 PO; +DOXY100C76 PO; +FLUT0.15 NAE; +KLN5 PO; +LEVO25TA PO; +MBC75 PO; +MCRK20 PO; +MONT1TAB3 PO; -MRLP17 PO; +MULT-1028 PO; -NORT10CA2 PO; +OXGN; +POLY335019 PO; +PRED20TA PO; +RMR15 PO; +SPRIN/30 INH; +SRQ200 PO
--- NOTE | 2017-12-10 02:01 | EMERGENCY ROOM VISIT NOTE ---
History Report prepared by Bianka: Richelle Long Under the Supervision of: Dr. Heather Gallardo M.D. First contact with patient: 01:38 Chief Complaint: NAUSEA Stated Complaint: NAUSEA History of Present Illness The patient is a 72 year old female who presents to the Emergency Room with complaints of nausea beginning 4 days ago. The patient reports vomiting 4 days ago, but states that she has been dry heaving since. The patient states that she has been unable to eat or drink anything over the last several days due to the nausea. She reports that it feels like her stomach is bloated. She states that her last bowel movement was yesterday, and denies having diarrhea, chest pain, shortness of breath, and urinary symptoms. The patient reports that her blood sugar has been okay recently and states that she wears oxygen at home. She denies any recent falls. She reports a history of a hysterectomy, but denies having a history of bowel obstructions. She also denies having kidney problems. Source of History: patient Onset: 4 days ago Position: other (global) Quality: other (nausea ) Associated Symptoms: + vomiting, No chest pain, No SOB, No diarrhea, No urinary symptoms Review of Systems See HPI for pertinent positives & negatives. A total of 10 systems reviewed and were otherwise negative. Past Medical & Surgical Medical Problems: (1) Acid reflux (2) CHF (congestive heart failure) (3) COPD (chronic obstructive pulmonary disease) (4) COPD exacerbation (5) Diabetes (6) Elevated troponin (7) KATHLEEN (generalized anxiety disorder) (8) GERD (gastroesophageal reflux disease) (9) Hypoxia (10) Major depression, recurrent, full remission (11) Meningitis (12) Nausea & vomiting (13) Ovarian ca (14) Ovarian cancer (15) QT prolongation (16) Syncope Family History No pertient family history secondary to age Social History Smoking Status: Former Smoker Alcohol Use: none Drug Use: none Marital Status: Housing Status: lives with family Occupation Status: retired Current/Historical Medications Scheduled Arformoterol Tartrate (Brovana), 15 MCG NEB BID Budesonide (Pulmicort Respules 0.5MG/2ML), 0.5 MG NEB BID Calcium Carbonate-Cholecalcife (Oyster Shell Calcium + D), 1 TAB PO QAM Cholecalciferol (Vitamin D 400 Iu), 400 INTER.UNIT PO QAM Doxycycline Monohydrate (Monodox), 100 MG PO DAILY Escitalopram Oxalate (Lexapro), 20 MG PO DAILY Fluticasone Propionate (Nasal) (Flonase Allergy Relief), 1 SPRAY NANCY DAILY Home O2 Therapy (Oxygen), 2-3 LITERS NA CONTINOUS Insulin Human NPH (Humulin N), 20 UNITS SC QAM Levothyroxine Sodium (Synthroid), 25 MCG PO QAM Meloxicam (Meloxicam), 7.5 MG PO DAILY Metformin Hcl (Glucophage), 1,000 MG PO BID Mirtazapine (Mirtazapine), 30 MG PO HS Montelukast Sodium (Singulair), 10 MG PO HS Multiple Vitamins W/ Iron (Multi Vitamin with Iron), 1 TAB PO QAM Potassium Chloride (Klor-Con M20), 20 MEQ PO BID Quetiapine Fumarate (Seroquel), 200 MG PO HS Ranitidine (Zantac), 150 MG PO DAILY Rivaroxaban (Xarelto), 20 MG PO QAM Roflumilast (Daliresp), 500 MCG PO DAILY Theophylline (Rohit-24), 400 MG PO QAM Tiotropium [place] (Spiriva Handihaler), 1 CAP INH DAILY Scheduled PRN Albuterol Sulf (Albuterol Sulfate), 2.5 MG NEB Q4H PRN for SOB/Wheezing Clonazepam (Clonazepam), 0.5 MG PO Q12H PRN for Anxiety/Agitation Hydroxyzine HCl (Hydroxyzine HCl), 10 MG PO TID PRN for Anxiety Ipratropium-Albuterol (Duoneb), 1 TREATMENT INH Q4WA PRN for SOB/Wheezing Polyethylene Glycol 3350 (Miralax), 17 GM PO DAILY PRN for Constipation Allergies Coded Allergies: Rabies Vaccine (Verified Allergy, Severe, HIVES, 10/28/17) Ragweed (Verified Allergy, Unknown, UNKNOWN, 10/28/17) Tomato (Verified Allergy, Unknown, HIVES, 10/28/17) Physical Exam Vital Signs Date Time Temp Pulse Resp B/P (MAP) Pulse Ox O2 Delivery O2 Flow Rate FiO2 12/10/17 03:10 130 25 123/86 99 Room Air 12/10/17 02:11 37.1 135 16 123/86 96 Room Air 12/10/17 01:58 119 Physical Exam Vital signs reviewed. General: Chronically-ill appearing female, in no significant distress. On nasal cannula Oxygen. HEENT: No scleral icterus, PERRLA, neck supple. Atraumatic. Cardiovascular: Tachycardic with occasional irregularity. Pulmonary: Diminished breath sounds bilaterally with scattered wheezes. Abdomen: Distended abdomen. Tympany to the bilateral upper quadrants. Mild diffuse tenderness. No rebound. No guarding. Musculoskeletal: Atraumatic, no peripheral edema. Neurologic: Patient awake alert and oriented x 3, full strength in all 4 extremities. Cranial nerves 2 through 12 grossly intact. Skin: Warm, dry, no rash Medical Decision & Procedures ER Provider Diagnostic Interpretation: Radiology results as stated below per my review. Chest/Abdomen X-Ray: No evidence of obstruction. No free air. No focal lung consolidation. No failure. Evidence of COPD. Laboratory Results 12/10/17 01:47 Red Blood Count 4.52, Mean Corpuscular Volume 76.8, Mean Corpuscular Hemoglobin 25.4, Mean Corpuscular Hemoglobin Concent 33.1, Mean Platelet Volume 8.4, Neutrophils (%) (Auto) 75.1, Lymphocytes (%) (Auto) 15.1, Monocytes (%) (Auto) 9.0, Eosinophils (%) (Auto) 0.2, Basophils (%) (Auto) 0.1, Neutrophils # (Auto) 11.21, Lymphocytes # (Auto) 2.26, Monocytes # (Auto) 1.35, Eosinophils # (Auto) 0.03, Basophils # (Auto) 0.01 Test 12/10/17 01:47 12/10/17 02:45 12/10/17 03:05 12/10/17 03:28 White Blood Count 14.94 K/uL (4.8-10.8) Red Blood Count 4.52 M/uL (4.2-5.4) Hemoglobin 11.5 g/dL (12.0-16.0) Hematocrit 34.7 % (37-47) Mean Corpuscular Volume 76.8 fL (80-100) Mean Corpuscular Hemoglobin 25.4 pg (25-34) Mean Corpuscular Hemoglobin Concent 33.1 g/dl (32-36) Platelet Count 502 K/uL (130-400) Mean Platelet Volume 8.4 fL (7.4-10.4) Neutrophils (%) (Auto) 75.1 % Lymphocytes (%) (Auto) 15.1 % Monocytes (%) (Auto) 9.0 % Eosinophils (%) (Auto) 0.2 % Basophils (%) (Auto) 0.1 % Neutrophils # (Auto) 11.21 K/uL (1.4-6.5) Lymphocytes # (Auto) 2.26 K/uL (1.2-3.4) Monocytes # (Auto) 1.35 K/uL (0.11-0.59) Eosinophils # (Auto) 0.03 K/uL (0-0.5) Basophils # (Auto) 0.01 K/uL (0-0.2) RDW Standard Deviation 49.6 fL (36.4-46.3) RDW Coefficient of Variation 17.7 % (11.5-14.5) Immature Granulocyte % (Auto) 0.5 % Immature Granulocyte # (Auto) 0.08 K/uL (0.00-0.02) Total Bilirubin 0.6 mg/dl (0.2-1) Alanine Aminotransferase (ALT/SGPT) 33 U/L (12-78) Alkaline Phosphatase 97 U/L (45-117) Creatine Kinase MB 4.0 ng/ml (0.5-3.6) Creatine Kinase MB Ratio (0-3.0) Total Protein 6.8 gm/dl (6.4-8.2) Albumin 3.2 gm/dl (3.4-5.0) Urine Color YELLOW Urine Appearance CLEAR (CLEAR) Urine pH 5.0 (4.5-7.5) Urine Specific [place] 1.020 (1.000-1.030) Urine Protein NEG (NEG) Urine Glucose (UA) 2+ (NEG) Urine Ketones 1+ (NEG) Urine Occult Blood NEG (NEG) Urine Nitrite NEG (NEG) Urine Bilirubin NEG (NEG) Urine Urobilinogen NEG (NEG) Urine Leukocyte Esterase NEG (NEG) Direct Bilirubin 0.2 mg/dl (0-0.2) Aspartate Amino Transf (AST/SGOT) 28 U/L (15-37) Total Creatine Kinase 152 U/L (26-192) Prothrombin Time 12.5 SECONDS (9.0-12.0) Prothromb Time International Ratio 1.2 (0.9-1.1) Activated Partial Thromboplast Time 27.0 SECONDS (21.0-31.0) Partial Thromboplastin Ratio 1.0 Laboratory results per my review. Medications Administered Medications (Trade) Dose Ordered Sig/Lulú Route Start Time Stop Time Status Last Admin Dose Admin Sodium Chloride 250 ml @ 999 mls/hr Q16M STAT IV 12/10/17 02:04 12/10/17 02:19 DC 12/10/17 02:25 999 MLS/HR Sodium Chloride 1,000 ml @ 125 mls/hr Q8H STAT IV 12/10/17 02:04 12/10/17 04:41 DC 12/10/17 02:25 125 MLS/HR Promethazine HCl 12.5 mg/Sodium Chloride 50.5 ml @ 204 mls/hr NOW STAT IV 12/10/17 02:04 12/10/17 02:18 DC 12/10/17 02:39 204 MLS/HR Potassium Chloride (Kcl 10 Meq / Wtr) 40 meq NOW STAT IV 12/10/17 03:36 12/10/17 03:37 DC 12/10/17 03:50 40 MEQ Magnesium Sulfate (Magnesium Sulfate) 2 gm NOW STAT IV 12/10/17 03:36 12/10/17 03:37 DC 12/10/17 03:50 2 GM Acetaminophen (Tylenol Tab) 650 mg Q4H PRN PO 12/10/17 03:30 01/09/18 03:29 12/10/17 23:50 650 MG Ondansetron HCl (Zofran Inj) 4 mg Q6H PRN IV 12/10/17 03:30 01/09/18 03:29 12/11/17 05:52 4 MG Morphine Sulfate (MoRPHine SULFATE INJ) 2 mg Q30M PRN IV 12/10/17 03:30 12/24/17 03:29 12/10/17 05:06 2 MG ECG Per My Interpretation Indication: nausea Rate (beats per minute): 129 Rhythm: sinus tachycardia Findings: PAC (frequent ), ST depression (Anterolateral) Comparison ECG Date: ST depressions are more pronounced compared to previous, frequent PAC's are new ED Course 0156: Past medical records reviewed. The patient was evaluated in room B8. A complete history and physical examination was performed. 0204: Ordered Promethazine HCl 12.5 mg/Sodium Chloride 50.5 ml @ 204 mls/hr IV, Sodium Chloride 1,000 ml @ 125 mls/hr IV, Sodium Chloride 250 ml @ 999 mls/hr IV. 0340: I reevaluated the patient. She is still nauseous, so I asked the nurse to start a second IV on her. 0400: Upon reevaluation, the patient is resting comfortably. I discussed laboratory and radiographic results with her. She verbalized agreement of the treatment plan. The patient will be evaluated for further management and care by Dr. Coon. Medical Decision The patient is a 72 year old female who presents to the ED with complaints of nausea. Differentials include bowel obstruction, electrolyte abnormality, pneumonia, ACS, UTI, and pulmonary embolism. This patient was evaluated and appeared to be in no significant distress. IV access was obtained and laboratory work was drawn. Patient was placed on a cardiac technician. She was hydrated with normal saline solution. Patient is found to have an elevated troponin at 0.[address] changes. She has ST depressions in the lateral leads. Patient's heart rate did improve however she is found to be hyponatremic, hypomagnesemic and hypokalemic. Electrolyte repletion was started in the emergency department. Given the severity of the electrolyte derangements and the non-STEMI, the patient will be evaluated by the hospitalist service for further management. Medication Reconcilliation Current Medication List: was personally reviewed by me Blood Pressure Screening Patient's blood pressure: Normal blood pressure Consults Time Called: 0300 Consulting Physician: Dr. [facility] Returned Call: 0400 I reviewed the patient's case with Dr. Coon. He will evaluate the patient for further management. Impression Primary Impression: Non-ST elevated myocardial infarction Additional Impressions: Hyponatremia Hypomagnesemia Hypokalemia Scribe Attestation The scribe's documentation has been prepared under my direction and personally reviewed by me in its entirety. I confirm that the note above accurately reflects all work, treatment, procedures, and medical decision making performed by me. Departure Information Dispostion Being Evaluated By Hospitalist Referrals Anil Rodriguez D.O. (PCP) Patient Instructions My [facility] Problem Qualifiers
[2017-12-10] MEDS ORDERED: PROMETHAZINE HCL INJ 12.5 MG in SODIUM CHLORIDE 0.9% 50ML 50 ML IV STA (02:04)
[2017-12-10] MEDS ORDERED: SODIUM CHLORIDE 0.9% 250ML 250 ML IV STA (02:04)
[2017-12-10] MEDS ORDERED: SODIUM CHLORIDE 0.9% 1000ML 1,000 ML IV STA (02:04)
[2017-12-10 02:25] LABS: BASO % 0.1 %; BASO ABS # 0.01 K/uL (0-0.2); EOS % 0.2 %; EOS ABS # 0.03 K/uL (0-0.5); HEMATOCRIT 34.7 % (37-47); HEMOGLOBIN 11.5 g/dL (12.0-16.0); IG# 0.08 K/uL (0.00-0.02); LYMPH % 15.1 %; LYMPH ABS # 2.26 K/uL (1.2-3.4); MEAN CELL VOLUME 76.8 fL (80-100); MEAN CORPUSCULAR HEMOGLOBIN 25.4 pg (25-34); MEAN CORPUSCULAR HGB CONC 33.1 g/dl (32-36); MEAN PLATELET VOLUME 8.4 fL (7.4-10.4); MONO ABS # 1.35 K/uL (0.11-0.59); NEUT % 75.1 %; NEUT ABS # 11.21 K/uL (1.4-6.5); PLATELET COUNT 502 K/uL (130-400); RED CELL DISTRIBUTION WIDTH CV 17.7 % (11.5-14.5); RED CELL DISTRIBUTION WIDTH SD 49.6 fL (36.4-46.3); WHITE BLOOD COUNT 14.94 K/uL (4.8-10.8)
[2017-12-10 02:43] LABS: ALBUMIN 3.2 gm/dl (3.4-5.0); ALKALINE PHOSPHATASE 97 U/L (45-117); ALT/SGPT 33 U/L (12-78); BLOOD UREA NITROGEN 20 mg/dl (7-18); CALCIUM 7.4 mg/dl (8.5-10.1); CARBON DIOXIDE 33 mmol/L (21-32); CREATININE 1.16 mg/dl (0.60-1.20); GLUCOSE 148 mg/dl (70-99); SODIUM 126 mmol/L (136-145); TOTAL PROTEIN 6.8 gm/dl (6.4-8.2)
--- NOTE | 2017-12-10 03:17 | History and Physical ---
History & Physical Date & Time of Service: Dec 10, 2017 at 02:56 Chief Complaint: Nausea Primary Care Physician: Anil Rodriguez D.O. History of Present Illness Source: patient 71F with history of COPD, chronic diastolic CHF, h/o ovarian cancer and h/o PE presents with a complaint of nausea for the past 4 days. She noticed it after she woke up. She has been unable to eat or drink anything over the last several days due to nausea. Today she was dry heaving. There has been no diarrhea. Last BM was yesterday and was normal in texture. Pt reports a chest tingling in the middle of her chest. No movement makes the tingling worse or go away. The tingling has been there for about a week. Patient states that her breathing is actually not bothering her. Pt is on 2L O2 at home. Pt ambulates with the assistance of a walker but hasn't been ambulating too much. Pt states that she lives with an aid. ROS: ankles and wrists have been getting thinner and her stomach has been getting fatter over past year or so, pt states she has also been taking daily prednisone over this time period. PMHx: Per chart review, admission in October for Syncope 2/2 prolonged QT and approx 5 admissions in the past 12 months for COPD exacerbations. Past Medical/Surgical History Medical Problems: (1) Acid reflux (2) Acute bronchitis (3) Acute exacerbation of chronic obstructive pulmonary disease (4) Acute respiratory failure with hypoxia (5) Anemia (6) Anemia (7) CHF (congestive heart failure) (8) COPD (chronic obstructive pulmonary disease) (9) COPD exacerbation (10) COPD exacerbation (11) COPD exacerbation (12) COPD exacerbation (13) COPD exacerbation (14) COPD exacerbation (15) Diabetes (16) ALVAREZ (dyspnea on exertion) (17) KATHLEEN (generalized anxiety disorder) (18) GERD (gastroesophageal reflux disease) (19) Hyperglycemia due to type 2 diabetes mellitus (20) Hypomagnesemia (21) Hypoxia (22) Hypoxia (23) Lactic acidosis (24) Major depression, recurrent, full remission (25) Meningitis (26) Orthostatic hypotension (27) Ovarian ca (28) Ovarian cancer (29) QT prolongation (30) Sepsis (31) Shortness of breath (32) Syncope (33) Tachypnea Family History No pertient family history secondary to age Social History Smoking Status: Former Smoker Drug Use: none Marital Status: Housing status: lives alone Occupational Status: retired Immunizations History of Influenza Vaccine: Yes History of Tetanus Vaccine?: Yes History of Pneumococcal: Yes History of Hepatitis B Vaccine: Unknown Allergies Coded Allergies: Rabies Vaccine (Verified Allergy, Severe, HIVES, 10/28/17) Ragweed (Verified Allergy, Unknown, UNKNOWN, 10/28/17) Tomato (Verified Allergy, Unknown, HIVES, 10/28/17) Home Medications Scheduled Arformoterol Tartrate (Brovana), 15 MCG NEB BID Budesonide (Pulmicort Respules 0.5MG/2ML), 0.5 MG NEB BID Calcium Carbonate-Cholecalcife (Oyster Shell Calcium + D), 1 TAB PO QAM Cholecalciferol (Vitamin D 400 Iu), 400 INTER.UNIT PO QAM Doxycycline Monohydrate (Monodox), 100 MG PO DAILY Escitalopram Oxalate (Lexapro), 20 MG PO DAILY Fluticasone Propionate (Nasal) (Flonase Allergy Relief), 1 SPRAY NANCY DAILY Home O2 Therapy (Oxygen), 2-3 LITERS NA CONTINOUS Insulin Human NPH (Humulin N), 20 UNITS SC QAM Levothyroxine Sodium (Synthroid), 25 MCG PO QAM Meloxicam (Meloxicam), 7.5 MG PO DAILY Metformin Hcl (Glucophage), 1,000 MG PO BID Mirtazapine (Mirtazapine), 30 MG PO HS Montelukast Sodium (Singulair), 10 MG PO HS Multiple Vitamins W/ Iron (Multi Vitamin with Iron), 1 TAB PO QAM Potassium Chloride (Klor-Con M20), 20 MEQ PO BID Quetiapine Fumarate (Seroquel), 200 MG PO HS Ranitidine (Zantac), 150 MG PO DAILY Rivaroxaban (Xarelto), 20 MG PO QAM Roflumilast (Daliresp), 500 MCG PO DAILY Theophylline (Rohit-24), 400 MG PO QAM Tiotropium [place] (Spiriva Handihaler), 1 CAP INH DAILY Scheduled PRN Albuterol Sulf (Albuterol Sulfate), 2.5 MG NEB Q4H PRN for SOB/Wheezing Clonazepam (Clonazepam), 0.5 MG PO Q12H PRN for Anxiety/Agitation Hydroxyzine HCl (Hydroxyzine HCl), 10 MG PO TID PRN for Anxiety Ipratropium-Albuterol (Duoneb), 1 TREATMENT INH Q4WA PRN for SOB/Wheezing Polyethylene Glycol 3350 (Miralax), 17 GM PO DAILY PRN for Constipation Review of Systems Constitutional: + weight loss, No fever, No chills Eyes: No worsening of vision Respiratory: + shortness of breath, + dyspnea on exertion, No cough, No sputum , No wheezing Cardiovascular: + problem reported (chest tingling - midline), No chest pain Abdomen: + nausea, + vomiting, No pain, No diarrhea, No constipation Genitourinary - Female: No dysuria, No hematuria Neurologic: No memory loss Integumentary: No rash Physical Exam Vital Signs Date Time Temp Pulse Resp B/P (MAP) Pulse Ox O2 Delivery O2 Flow Rate FiO2 12/10/17 02:11 37.1 135 16 123/86 96 Room Air 12/10/17 01:58 119 General Appearance: WD/WN, + pertinent finding (truncal obesity, thin extremties) Head: normocephalic Eyes: PERRL, EOMI ENT: normal ENT inspection Neck: supple Respiratory/Chest: + pertinent finding (decreased breath sounds in all max posteriorly, no crackling or rales or wheezing bilaterally. ) Cardiovascular: no JVD, no murmur, normal peripheral pulses, + tachycardia ( occasional skipped beats) Abdomen/GI: soft, no organomegaly, no pulsatile mass, + tenderness (mild tenderness in LLQ to deep palpation, no rebound noted. 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 tested, no motor/sensory deficits, alert, normal mood/affect, oriented x 3 Skin: normal color, warm/dry Diagnostics Laboratory Results Results Past 24 Hours Test 12/10/17 01:47 12/10/17 02:04 12/10/17 02:45 12/10/17 02:49 Range/Units White Blood Count 14.94 4.8-10.8 K/uL Red Blood Count 4.52 4.2-5.4 M/uL Hemoglobin 11.5 12.0-16.0 g/dL Hematocrit 34.7 37-47 % Mean Corpuscular Volume 76.8 80-100 fL Mean Corpuscular Hemoglobin 25.4 25-34 pg Mean Corpuscular Hemoglobin Concent 33.1 32-36 g/dl Platelet Count 502 130-400 K/uL Mean Platelet Volume 8.4 7.4-10.4 fL Neutrophils (%) (Auto) 75.1 % Lymphocytes (%) (Auto) 15.1 % Monocytes (%) (Auto) 9.0 % Eosinophils (%) (Auto) 0.2 % Basophils (%) (Auto) 0.1 % Neutrophils # (Auto) 11.21 1.4-6.5 K/uL Lymphocytes # (Auto) 2.26 1.2-3.4 K/uL Monocytes # (Auto) 1.35 0.11-0.59 K/uL Eosinophils # (Auto) 0.03 0-0.5 K/uL Basophils # (Auto) 0.01 0-0.2 K/uL RDW Standard Deviation 49.6 36.4-46.3 fL RDW Coefficient of Variation 17.7 11.5-14.5 % Immature Granulocyte % (Auto) 0.5 % Immature Granulocyte # (Auto) 0.08 0.00-0.02 K/uL Sodium Level 126 136-145 mmol/L Potassium Level 3.5-5.1 mmol/L Chloride Level 78 98-107 mmol/L Carbon Dioxide Level 33 21-32 mmol/L Anion Gap 15.0 3-11 mmol/L Blood Urea Nitrogen 20 7-18 mg/dl Creatinine 1.16 0.60-1.20 mg/dl Est Creatinine Clear Calc Drug Dose 43.8 ml/min Estimated GFR () 54.1 Estimated GFR (Non- 46.7 BUN/Creatinine Ratio 17.1 10-20 Random Glucose 148 70-99 mg/dl Calcium Level 7.4 8.5-10.1 mg/dl Magnesium Level 1.8-2.4 mg/dl Total Bilirubin 0.6 0.2-1 mg/dl Direct Bilirubin 0-0.2 mg/dl Aspartate Amino Transf (AST/SGOT) 15-37 U/L Alanine Aminotransferase (ALT/SGPT) 33 12-78 U/L Alkaline Phosphatase 97 45-117 U/L Total Creatine Kinase 26-192 U/L Creatine Kinase MB 4.0 0.5-3.6 ng/ml Creatine Kinase MB Ratio 0-3.0 Troponin I 0.296 0-0.045 ng/ml Total Protein 6.8 6.4-8.2 gm/dl Albumin 3.2 3.4-5.0 gm/dl Bedside Glucose 175 70-90 mg/dl Diagnostic Radiology * -- Conclusions -- * 1. Normal LV size and wall thickness. * 2. Normal LV function. LVEF 65-70%. No regional wall motion abnormalities. * 3. Normal RV size and function. * 4. No significant valvular pathology. * 5. Normal estimated RA and PA pressures. * 6. No prior studies for comparison. EKG Indication: nausea Rate (beats per minute): 129 Rhythm: sinus tachycardia Findings: PAC (frequent ), ST depression (Anterolateral) Comparison ECG Date: ST depressions are more pronounced compared to previous, frequent PAC's are new Impression Assessment and Plan 71F with history of COPD, chronic diastolic CHF, h/o ovarian cancer and h/o PE presents with a complaint of nausea for the past [address] depressions and Troponins were elevated. Pt admitted to tele for chest pain rule out. Echo ordered. Symptoms may also be related to COPD. NSTEMI 2/2 Demand Ischemia vs ACS EKG showed ST depression. Echo in Sep was grossly normal. Trop was 0.296, will trend Q6. Appreciate Cardiology input. Ordering limited echo to assess for wall motion abnormalities. ASA in the AM. Daily EKGs. Admit to telemetry. NPO except meds and ice chips and sips. Nausea / Vomiting Unknown etiology, may be part of ACS constellation or abdominal pathology. X-ray reviewed with Dr. Velazquez and there are no signs of bowel obstruction. Consider CT for PE or CT Abdo and pelvis if symptoms don't resolve with chest pain rule out or electrolyte correction. Promethazine 12.5mg IV PRN for n/v. Zofran contraindicated due to prolonged QT. Hypokalemia / Hypomagnesemia / Hyponatremia Getting 40meq K IV +20meq KCL PO BID. Giving Mag Oxide, continue to monitor. NSS at 125mls/hr. COPD At baseline (2LNC), continue extensive home regimen. Xray reviewed with Dr. Flickenger, no signs of consolidation. Follow up official Xray read. 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 Recommend reaching out to PCP or Pre Sales Systems Engineer to verify. Depression / Anxiety Continue home regime of ... Lexapro 20 MG PO DAILY Mirtazapine 30 MG PO HS Quetiapine Fumarate (Seroquel), 200 MG PO HS clonazepam 0.5 MG PO Q12H PRN for Anxiety/Agitation Hydroxyzine HCl 10 MG PO TID PRN for Anxiety DM2 HBA1C in Oct was 8.8 c/w Metformin 1,000 MG PO BID c/w Insulin Human NPH (Humulin N), 20 UNITS SC QAM History of PE & Ovarian CA c/w Xarelto 20 MG PO QAM Hypothyroid c/w Synthroid 25 MCG PO QAM OA c/w Meloxicam 7.5 MG PO DAILY Iron Deficiency MCG is 76 and Platelets are 502. Supplement with iron 325mg BID DVT Proph: Xarelto as above. DIET: NPO and IV NSS as above. FULL CODE Resident Physician Supervision Note: Pt evaluated independently. I discussed the case with the resident and agree with the findings and plan as documented in the note. Any exceptions or clarifications are listed here: 72 y/o F advanced COPD - 2L home oxygen, PE 06/29 currently on Xarelto, GERD, DM - the pt presents with 4 days nausea and heaving. She has not been able to tolerate PO solids or liquids. She describes abdominal pain which is persistent and moderate. Initial labs reveal an elevated troponin. EKG may be consistent with a strain pattern and is not OE AAO x 3 S1,2 irr Poor air movement - no clear wheezing - breathing is labored - pt states this is chronic NT, ND No CCE P: A CT abdomen pelvis is pending as an XR appears to show a dilated bowel. IVF, antiemetics and analgesics provided. Reg her trop and an abnormal EKG - differential includes a PE and NSTEMI. She is anticoagulated with Xarelto. She denies any SOB but does exhibit some tachycardia and tachypnea. It would be reasonable to obtain an echo. If WMAs are present, this should likely be treated as an MT. If strain is present, this may be due to COPD, however, a CTA would be advisable at that point to evaluate for recurrent PE and Xarelto failure. COPD - will remain on prescribed inhalers, 02, Prednisone DM - SS and Lantus provided Documented By: Alfonso Coon Documented By: Alfonso Coon Resuscitation Status VTE Prophylaxis Will order VTE Prophylaxis: Yes Resident Involvement: Resident Care Provided Care Provided: Adult Hospital Medicine
[2017-12-10] MEDS ORDERED: ZOLPIDEM TARTRATE 5 MG TAB PO PRN ×2 (03:30)
[2017-12-10] MEDS ORDERED: ACETAMINOPHEN 325 MG TAB PO PRN (03:30)
[2017-12-10] MEDS ORDERED: ONDANSETRON INJ 2 MG/ML 2 ML VIAL IV PRN (03:30)
[2017-12-10] MEDS ORDERED: NITROGLYCERIN 0.4 MG SL PER TAB CHARGE SL PRN (03:30)
[2017-12-10] MEDS ORDERED: MAGNESIUM HYDROXIDE SUSP 30 ML UDC PO PRN (03:30)
[2017-12-10] MEDS ORDERED: ALUMINUM/MAGNESIUM/SIMETH (MAALOX MAX) 30 ML UDC PO PRN (03:30)
[2017-12-10] MEDS ORDERED: POLYETHYLENE (MIRALAX) 17 GM PACK PO PRN (03:30)
[2017-12-10] MEDS ORDERED: MoRPHine SULFATE 2 MG/ML CARP IV PRN (03:30)
[2017-12-10 03:35] LABS: POTASSIUM 2.3 mmol/L (3.5-5.1)
[2017-12-10] MEDS ORDERED: MAGNESIUM SULFATE 1GM / D5W 1 GM BAG IV STA (03:36)
[2017-12-10] MEDS ORDERED: POTASSIUM CHLORIDE 10 MEQ / 100ML WTR IV STA (03:36)
[2017-12-10 03:54] LABS: INR 1.2 (0.9-1.1)
[2017-12-10] MEDS ORDERED: RANI150T85 PO (03:54)
[2017-12-10] MEDS: SODIUM CHLORIDE 0.9% 1000ML 1,000 ML IV SCH ×2 (04:15→12:15)
[2017-12-10] MEDS ORDERED: NON-FORMULARY MEDICATION (Polyethylene Glycol 3350 (Miralax) 17 GM) PO PRN (04:15)
[2017-12-10] MEDS ORDERED: hydrOXYzine HCL 10 MG TAB PO PRN (04:15)
[2017-12-10] MEDS: LEVOTHYROXINE 25 MCG TAB PO SCH (04:56)
[2017-12-10] MEDS: ALBUTEROL 0.083% NEBU SOLN 3 ML VIAL INH PRN ×4 (05:10→23:18)
[2017-12-10] MEDS: NITROGLYCERIN 2% OINTMENT 30GM TUBE EXT SCH ×4 (06:11→23:00)
[2017-12-10] MEDS: NSS + 20MEQ KCL 1000ML 1,000 ML IV SCH ×2 (06:12→18:58)
[2017-12-10] MEDS ORDERED: GLUCAGON FOR INJ 1 MG VIAL SQ PRN (06:15)
[2017-12-10] MEDS ORDERED: GLUCOSE 10 TABS/TUBE PO PRN (06:15)
[2017-12-10] MEDS ORDERED: GLUCOSE 40% GEL 15 GM TUBE PO PRN (06:15)
[2017-12-10] MEDS ORDERED: DEXTROSE 50% 50 ML SYR IV PRN (06:15)
--- NOTE | 2017-12-10 06:18 | DIAGNOSTIC IMAGING REPORT ---
ABDOMEN 2VIEW W/PA CHEST RTN CLINICAL HISTORY: nausea, distended pain. COMPARISON STUDY: 11/11/2017 FINDINGS: Chronic bibasilar interstitial prominence. Mid and upper lungs are clear. Bowel pattern is nonobstructive throughout. There is mild generalized nonobstructive ileus. IMPRESSION: Mild generalized nonobstructive ileus. Chronic basilar interstitial prominence. The above report was generated using voice recognition software. It may contain grammatical, syntax or spelling errors. Electronically signed by: Simon Cannon M.D. 12/10/2017 6:17 AM Dictated Date/Time: 12/10/2017 6:16 AM
--- NOTE | 2017-12-10 06:48 | DIAGNOSTIC IMAGING REPORT ---
CT SCAN OF THE ABDOMEN AND PELVIS WITHOUT CONTRAST CLINICAL HISTORY: Nausea. Suspected bowel obstruction. COMPARISON STUDY: Conventional radiographic study dated 12/10/2017, CT scan dated November 11, 2017 TECHNIQUE: CT scan of the abdomen and pelvis was performed from the lung bases to the proximal femurs. Images are reviewed in the axial, sagittal, and coronal planes. IV contrast was not administered for this examination. A dose lowering technique was utilized adhering to the principles of ALARA. CT DOSE: 876.15 mGycm FINDINGS: Lower chest: The heart is borderline enlarged. There is no pericardial effusion. Liver: The unenhanced liver is normal in size, contour, and attenuation. There is no intrahepatic biliary ductal dilatation. Gallbladder: Unremarkable. Spleen: Normal in size and attenuation. Pancreas: Unremarkable. Adrenal glands: Unremarkable. Kidneys: No renal, ureteral, or bladder calculi are visualized. Bowel: There are no transition zones indicate bowel obstruction. There is colonic diverticulosis. There are no acute peridiverticular inflammatory changes. There are no findings to indicate acute appendicitis. Peritoneum: There is no intraperitoneal free air or abdominal ascites. Vasculature: The abdominal aorta is normal in course and caliber. Adenopathy: None. Pelvic viscera: The uterus is surgically absent. There is a 15 mm right ovarian cyst. Skeletal structures: No destructive osseous lesions are seen. IMPRESSION: 1. No evidence of bowel obstruction. No evidence of free air 2. Diverticulosis. No evidence of acute diverticulitis 3. No evidence of acute appendicitis Electronically signed by: Hang Moses M.D. 12/10/2017 6:46 AM Dictated Date/Time: 12/10/2017 6:43 AM
[2017-12-10] MEDS: ARFORMOTEROL TART 15MCG/2ML VIAL INH SCH ×2 (07:05→19:19)
[2017-12-10] MEDS: BUDESONIDE 0.5 MG/2 ML VIAL (PULMICORT) INH SCH ×2 (07:05→19:19)
[2017-12-10] MEDS: FERROUS SULFATE 325 MG TAB PO SCH ×2 (07:30→17:17)
[2017-12-10 08:25] LABS: CALCIUM 7.1 mg/dl (8.5-10.1); CREATININE 0.87 mg/dl (0.60-1.20); POTASSIUM 2.3 mmol/L (3.5-5.1)
[2017-12-10] MEDS: FLUTICASONE PROPIONATE NA SPR 16 GM BTL NAE SCH (09:00)
[2017-12-10] MEDS ORDERED: ESCITALOPRAM OXALATE 20 MG TAB PO SCH (09:00)
[2017-12-10] MEDS: ROFLUMILAST 500 MCG TAB PO SCH (09:00)
[2017-12-10] MEDS ORDERED: METFORMIN HCL 500 MG TAB PO SCH (09:00)
[2017-12-10] MEDS ORDERED: RIVAROXABAN 10 MG TAB PO SCH (09:00)
[2017-12-10] MEDS ORDERED: INSULIN HUMAN NPH SC SCH (09:00)
[2017-12-10] MEDS: POTASSIUM CHLORIDE 20 MEQ TABCR PO SCH ×2 (09:00→20:27)
--- NOTE | 2017-12-10 09:32 | Cardiology Consultation ---
Cardiology Consultation Date of Consultation: Dec 10, 2017. Attending Physician: Dr. Loyd Hutchison Pt evaluation today including: conversation w/ patient, physical exam, chart review, lab review History of Present Illness 72 yo female with a h/o COPD, T2DM (A1c 8.8), PE on Xeralto and depression/ anxiety presents with one week of abdominal tenderness, nausea and vomiting. In addition, the patient reports upper respiratory symptoms and myalgias. She says she began feeling abdominal pain over the weekend and had multiple episodes of vomiting on Thursday. In the days since, she says that she has continued to have nausea, dry heaving and significantly decreased PO intake. Patient does report chest wall tenderness that she relates to retching. In addition, she reports a productive cough, but denies hemoptysis or calf tenderness. She denies SOB or peripheral edema, but does report feeling unsteady upon standing and walking. Patient lives at [facility] and reports multiple residents having viral gastroenteritis. Patient is a 48 pack year smoker. She denies h/o HTN, CKD or CAD. Past Medical/Surgical History COPD T2DM Pulmonary Embolism Depression Anxiety Family History No pertient family history secondary to age Social History Smoking Status: Former Smoker History of Alcohol Use: No Review of Systems Constitutional: No fever, No chills, No sweats Respiratory: + cough, + sputum, + wheezing, No shortness of breath, No dyspnea on exertion, No dyspnea at rest Cardiac: + problem reported (chest wall tenderness with retching ), No orthopnea, No PND, No edema, No claudication, No palpitations Abdomen: + pain, + nausea, + vomiting Allergies Coded Allergies: Rabies Vaccine (Verified Allergy, Severe, HIVES, 10/28/17) Ragweed (Verified Allergy, Unknown, UNKNOWN, 10/28/17) Tomato (Verified Allergy, Unknown, HIVES, 10/28/17) Medications Current Inpatient Medications Medications (Trade) Dose Ordered Sig/Lulú Route Start Time Stop Time Status Last Admin Dose Admin Acetaminophen (Tylenol Tab) 650 mg Q4H PRN PO 12/10/17 03:30 01/09/18 03:29 Al Hydrox/Mg Hydrox/Simethicone (Maalox Max Susp) 15 ml Q4H PRN PO 12/10/17 03:30 01/09/18 03:29 Magnesium Hydroxide (Milk Of Magnesia Susp) 30 ml Q12H PRN PO 12/10/17 03:30 01/09/18 03:29 Zolpidem Tartrate (Ambien Tab) 5 mg HSZ PRN PO 12/10/17 03:30 01/09/18 03:29 Ondansetron HCl (Zofran Inj) 4 mg Q6H PRN IV 12/10/17 03:30 01/09/18 03:29 Nitroglycerin (Nitrostat Tab) 0.4 mg UD PRN SL 12/10/17 03:30 01/09/18 03:29 Nitroglycerin (Nitroglycerin 2% Oint) 1 inch Q6H EXT 12/10/17 05:00 01/09/18 04:59 12/10/17 06:11 1 INCH Morphine Sulfate (MoRPHine SULFATE INJ) 2 mg Q30M PRN IV 12/10/17 03:30 12/24/17 03:29 12/10/17 05:06 2 MG Aspirin (Ecotrin Tab) 81 mg QAM PO 12/10/17 09:00 01/09/18 08:59 Polyethylene (Miralax Powder Packet) 17 gm DAILY PRN PO 12/10/17 03:30 01/09/18 03:29 Sodium Chloride 1,000 ml @ 125 mls/hr Q8H IV 12/10/17 04:15 12/10/17 20:14 Albuterol Sulfate (Ventolin 0.083% 2.5MG/3ML Neb) 2.5 mg Q4H PRN INH 12/10/17 04:15 01/09/18 04:14 12/10/17 05:10 2.5 MG Arformoterol Tartrate (Brovana 15MCG/ 2ML Neb Soln) 15 mcg BIDR INH 12/10/17 08:00 01/09/18 07:59 12/10/17 07:05 15 MCG Budesonide (Pulmicort Respules 0.5MG/ 2ML Neb Soln) 0.5 mg BIDR INH 12/10/17 08:00 01/09/18 07:59 12/10/17 07:05 0.5 MG Clonazepam (Klonopin Tab) 0.5 mg Q12H PRN PO 12/10/17 04:15 01/09/18 04:14 Escitalopram Oxalate (Lexapro Tab) 20 mg DAILY PO 12/10/17 09:00 01/09/18 08:59 Fluticasone Propionate (Flonase Nasal [place]) 2 sprays DAILY NANCY 12/10/17 09:00 01/09/18 08:59 Hydroxyzine HCl (Vistaril Tab) 10 mg TID PRN PO 12/10/17 04:15 01/09/18 04:14 Insulin Human NPH (novoLIN-N NPH) 15 units QAM SC 12/10/17 09:00 01/09/18 08:59 Levothyroxine Sodium (Synthroid Tab) 25 mcg DAILYBB PO 12/10/17 06:00 01/09/18 05:59 Meloxicam (Mobic Tab) 7.5 mg DAILY PO 12/10/17 09:00 01/09/18 08:59 Metformin HCl (Glucophage Tab) 1,000 mg BID PO 12/10/17 09:00 01/09/18 08:59 Future Hold Mirtazapine (Remeron Tab) 30 mg HS PO 12/10/17 21:00 01/09/18 20:59 Montelukast Sodium (Singulair Tab) 10 mg HS PO 12/10/17 21:00 01/09/18 20:59 Potassium Chloride (Klor-Con Tab) 20 meq BID PO 12/10/17 09:00 01/09/18 08:59 Quetiapine Fumarate (seroQUEL TAB) 200 mg HS PO 12/10/17 21:00 01/09/18 20:59 Ranitidine HCl (zANTac TAB) 150 mg DAILY PO 12/10/17 09:00 01/09/18 08:59 Rivaroxaban (Xarelto Tab) 20 mg QAM PO 12/10/17 09:00 01/09/18 08:59 Roflumilast (Daliresp Tab) 500 mcg DAILY PO 12/10/17 09:00 01/09/18 08:59 Tiotropium [place] (Spiriva Handihaler Inhaler) 1 puff DAILY INH 12/10/17 09:00 01/09/18 08:59 Theophylline (Uniphyl Controlled Rel 24hr Tab) 400 mg QAM PO 12/10/17 09:00 01/09/18 08:59 Promethazine HCl 12.5 mg/Sodium Chloride 50.5 ml @ 204 mls/hr Q6H PRN IV 12/10/17 04:15 01/09/18 04:14 Ferrous Sulfate (Feosol Tab) 325 mg BIDM PO 12/10/17 07:30 01/09/18 07:59 Prednisone (PredniSONE TAB) 20 mg DAILY PO 12/10/17 09:00 01/09/18 08:59 Potassium Chloride/Sodium Chloride 1,000 ml @ 80 mls/hr [id number] IV 12/10/17 06:00 12/11/17 00:44 12/10/17 06:12 80 MLS/HR Glucose (Glucose 40% Gel) 15-30 GRAMS 15 GRAMS... UD PRN PO 12/10/17 06:15 01/09/18 06:14 Glucose (Glucose Chew Tab) 4-8 Tablets 4 Tabl... UD PRN PO 12/10/17 06:15 01/09/18 06:14 Dextrose (Dextrose 50% 50ML Syringe) 25-50ML OF 50% DW IV FOR... UD PRN IV 12/10/17 06:15 01/09/18 06:14 Glucagon (Glucagon Inj) 1 mg UD PRN SQ 12/10/17 06:15 01/09/18 06:14 Physical Exam Vital Signs Past 12 Hours Date Time Temp Pulse Resp B/P (MAP) Pulse Ox O2 Delivery O2 Flow Rate FiO2 12/10/17 07:26 36.9 89 18 169/74 (105) 96 12/10/17 07:20 68 20 99 Nasal Cannula 2.0 12/10/17 05:11 97 20 98 Nasal Cannula 2.0 12/10/17 04:30 37.0 120 20 171/81 94 Nasal Cannula 2.0 12/10/17 04:07 130 24 135/93 98 Nasal Cannula 2.0 12/10/17 03:10 130 25 123/86 99 Room Air 12/10/17 02:11 37.1 135 16 123/86 96 Room Air 12/10/17 01:58 119 Head: normocephalic, atraumatic Neck: supple, trachea midline, no masses Lungs: Respiratory effort: no dyspnea, good air movement Auscultation: breath sounds normal, CTA except as noted, no wheezing, no rales/crackles, no rhonchi Extremities: no cyanosis, no edema, no clubbing, no ulcers Data Laboratory Results: Last 24 Hours Test 12/10/17 01:47 12/10/17 02:04 12/10/17 02:45 12/10/17 03:05 White Blood Count 14.94 K/uL Red Blood Count 4.52 M/uL Hemoglobin 11.5 g/dL Hematocrit 34.7 % Mean Corpuscular Volume 76.8 fL Mean Corpuscular Hemoglobin 25.4 pg Mean Corpuscular Hemoglobin Concent 33.1 g/dl Platelet Count 502 K/uL Mean Platelet Volume 8.4 fL Neutrophils (%) (Auto) 75.1 % Lymphocytes (%) (Auto) 15.1 % Monocytes (%) (Auto) 9.0 % Eosinophils (%) (Auto) 0.2 % Basophils (%) (Auto) 0.1 % Neutrophils # (Auto) 11.21 K/uL Lymphocytes # (Auto) 2.26 K/uL Monocytes # (Auto) 1.35 K/uL Eosinophils # (Auto) 0.03 K/uL Basophils # (Auto) 0.01 K/uL RDW Standard Deviation 49.6 fL RDW Coefficient of Variation 17.7 % Immature Granulocyte % (Auto) 0.5 % Immature Granulocyte # (Auto) 0.08 K/uL Sodium Level 126 mmol/L Potassium Level mmol/L 2.3 mmol/L Chloride Level 78 mmol/L Carbon Dioxide Level 33 mmol/L Anion Gap 15.0 mmol/L Blood Urea Nitrogen 20 mg/dl Creatinine 1.16 mg/dl Est Creatinine Clear Calc Drug Dose 43.8 ml/min Estimated GFR () 54.1 Estimated GFR (Non- 46.7 BUN/Creatinine Ratio 17.1 Random Glucose 148 mg/dl Calcium Level 7.4 mg/dl Magnesium Level mg/dl 0.9 mg/dl Total Bilirubin 0.6 mg/dl Direct Bilirubin mg/dl 0.2 mg/dl Aspartate Amino Transf (AST/SGOT) U/L 28 U/L Alanine Aminotransferase (ALT/SGPT) 33 U/L Alkaline Phosphatase 97 U/L Total Creatine Kinase U/L 152 U/L Creatine Kinase MB 4.0 ng/ml Creatine Kinase MB Ratio Troponin I 0.296 ng/ml Total Protein 6.8 gm/dl Albumin 3.2 gm/dl Bedside Glucose 175 mg/dl Urine Color YELLOW Urine Appearance CLEAR Urine pH 5.0 Urine Specific [place] 1.020 Urine Protein NEG Urine Glucose (UA) 2+ Urine Ketones 1+ Urine Occult Blood NEG Urine Nitrite NEG Urine Bilirubin NEG Urine Urobilinogen NEG Urine Leukocyte Esterase NEG Test 12/10/17 03:28 12/10/17 06:22 12/10/17 07:18 Prothrombin Time 12.5 SECONDS Prothromb Time International Ratio 1.2 Activated Partial Thromboplast Time 27.0 SECONDS Partial Thromboplastin Ratio 1.0 Bedside Glucose 180 mg/dl Sodium Level 126 mmol/L Potassium Level 2.3 mmol/L Chloride Level 82 mmol/L Carbon Dioxide Level 32 mmol/L Anion Gap 11.0 mmol/L Blood Urea Nitrogen 19 mg/dl Creatinine 0.87 mg/dl Est Creatinine Clear Calc Drug Dose 57.4 ml/min Estimated GFR () 76.6 Estimated GFR (Non- 66.1 BUN/Creatinine Ratio 21.3 Random Glucose 161 mg/dl Calcium Level 7.1 mg/dl Magnesium Level 1.8 mg/dl Troponin I 0.230 ng/ml Imaging: EKG: Telemetry reviewed: Assessment & Plan 72 year female presents with nausea, vomiting and decreased PO intake for 4 days. The patient has a h/o T2DM and past history of tobacco use (48 pack years) . Patient was found to have significant electrolyte abnormalities; hyponatremia , hypokalemia, hypomagnesium. EKG showed ST depression in anterior leads, with elevated troponin and CKMB. On exam the patient was found to have a tender, distended abdomen and some anterior chest wall tenderness. The patients presentation and history of recent ill contacts are consistent with viral gastroenteritis and dehydration, but the presentation of EKG changes and elevated cardiac enzymes in conjunction with her smoking history and diabetes makes her story more compelling for an atypical presentation of ACS. The patient had a morgan score of 132, representing a 12% increase in mortality in 6 months and PALLAVI of 3. With this in mind, the patient would benefit from the following medical management; ASA, beta pauly and statin. Upon normalizing of electrolytes, volume status and Qtc, Dr. Hutchison will consider catheterization. 1. NSTEMI -EKG q am and with chest pain -ECHO -Trend troponin q 6--trending down, 0.296--->0.230 -Continue IVF and electrolyte repletion -Starting ASA, BB and statin therapies -Possible cath pending improvement in electrolytes and Qtc 2. Prolonged Qtc -Adjust offending medications, replete electrolytes DR. HUTCHISON ADDENDUM: Patient was seen and examined by me and agree with history and plan as outlined by Dr. Patricio with following additions. Ms. Clemons is a 72-year-old woman with a history of severe COPD on chronic oxygen, type 2 diabetes, depression/anxiety, prior history of pulmonary embolism on anticoagulation, diastolic heart failure, recent admission for syncope in the setting of hypovolemia and noted prolonged QTC who was admitted with vomiting and decreased p.o. intake over the last 4 days. On presentation EKG showed sinus tachycardia with ST depressions in V3 through V6 and initially elevated troponin to 0.29 which has subsequently trended down. Patient largely chest pain-free aside for discomfort with movement, retching. Also found to have significant electrolyte abnormalities including profound hypokalemia, hypomagnesemia and hypocalcemia. Initially treated with morphine, nitrates, electrolyte replacement and antiemetics. Hypokalemia persists. Subsequent EKG this morning shows improved ST changes but prolonged QTC greater than 550. Telemetry remarkable for brief bouts of atrial ectopy but no sustained arrhythmias. Echo reviewed and shows small pericardial effusion with new mild LV dysfunction and LAD distribution regional wall motion abnormality. In the setting of cardiac risk factors, EKG changes, elevated troponin and new regional wall motion abnormality suspicion for coronary artery disease and ACS event is elevated. Recommend further risk stratification/ischemic workup with cardiac catheterization at some point. At present patient chest pain free, hemodynamically and electrically stable with no signs of heart failure on exam. No urgent need for cardiac catheterization and would defer until hypokalemia, QTC prolongation improved. Recommendations: -- Cardiac cath at some point during hospitalization. -- Agree with aspirin, beta-pauly, statin -- Received Xarelto this morning--would hold tomorrow's dose in case ready for procedure, keep NPO in AM. --continued supplementation of electrolytes as doing, hold QTC prolonging medications including Seroquel, Lexapro, mirtazapine, hydroxyzine, clonazepam, Zofran Will continue to follow.
[2017-12-10] MEDS: ASPIRIN 81 MG ECTAB PO SCH (09:35)
[2017-12-10] MEDS: TIOTROPIUM BROMIDE 5 PUFF/90 MCG INH INH SCH (09:36)
[2017-12-10] MEDS: RANITIDINE HCL 150 MG TAB PO SCH (09:36)
[2017-12-10 09:58] LABS: CREATININE 0.84 mg/dl (0.60-1.20); POTASSIUM 2.3 mmol/L (3.5-5.1)
[2017-12-10] MEDS: PROMETHAZINE HCL INJ 12.5 MG in SODIUM CHLORIDE 0.9% 50ML 50 ML IV PRN ×2 (10:05→19:12)
[2017-12-10] MEDS: MELOXICAM 7.5 MG TAB PO SCH (10:37)
[2017-12-10] MEDS: POTASSIUM CHLR 10 MEQ / WTR 10 MEQ in PREMIXED WATER 100 ML IV SCH ×4 (10:45→14:10)
[2017-12-10] MEDS ORDERED: ATORVASTATIN 40 MG TAB PO ONE (12:00)
[2017-12-10] MEDS ORDERED: METOPROLOL TARTRATE 50 MG TAB PO ONE (12:00)
[2017-12-10] MEDS: THEOPHYLLINE 400MG CONTROLLED REL TAB PO SCH (12:36)
--- NOTE | 2017-12-10 15:46 | ECHOCARDIOGRAM REPORT ---
*NOTICE TO RECEIVING CONSTITUTION [employer]Y AGENCY This information is strictly Confidential and protected under [place] law. [place] law prohibits you from making any further disclosure of this information unless further disclosure is expressly permitted by the written consent of the person to whom it pertains or is authorized by law. A general authorization for the release of medical or other information is not sufficient for this purpose. Hospital accepts no responsibility if the information is made available to any other person, INCLUDING THE PATIENT. Interpretation Summary * Name: ROSA HASSAN Study Date: 12/10/2017 12:41 PM BP: 171/81 mmHg * Patient Location: [facility] HR: 97 * : 1945 (M/d/yyyy) Gender: Female Height: 63 in * Age: 72 yrs Ethnicity: [place] Weight: 180 lb * Ordering Physician: Simon Guido * Referring Physician: Self, Referred * Performed By: Danielle Reyes RCS * * Reason For Study: CAD, Eval for Wall Motion Abnormalities * BSA: 1.8 m2 * -- Conclusions -- * 1. Normal LV size. Normal LV wall thickness. * 2. LVEF 40-45%. Mid septal, anteroseptal akinesis. Akinetic apex. * 3. Normal RV size and function. * 4. No significant valvular pathology. * 5. Normal estimated PA and RA pressures. * 6. Small pericardial effusion. * 7. Compared with prior study on 09/23/2016: LAD distribution wall motion abnormality is new. Procedure Details * A complete two-dimensional transthoracic echocardiogram was performed (2D, M-mode, Doppler and color flow Doppler). Left Ventricle * The left ventricle is grossly normal size. * There is normal left ventricular wall thickness. * Ejection Fraction = 40-45%. * There is apical akinesis. * Mid anteroseptal, septal akinesis Right Ventricle * The right ventricle is grossly normal size. * The right ventricular systolic function is qualitatively normal. Atria * The left atrial size is normal. * Right atrial size is normal. * No ASD detected; PFO is not assessed. Mitral Valve * The mitral valve is grossly normal. * There is no mitral valve stenosis. * There is trace mitral regurgitation. Tricuspid Valve * There is trace tricuspid regurgitation. Aortic Valve * The aortic valve opens well. * No hemodynamically significant valvular aortic stenosis. * No aortic regurgitation is present. Pulmonic Valve * The pulmonic valve is not well visualized. Great Vessels * The aortic root and proximal ascending aorta are normal sized. Pericardium/Pleural * Small pericardial effusion. * There are no echocardiographic indications of cardiac tamponade. Great Vessels * Normal inferior vena cava size and collapsability with sniff indicates a normal right atrial pressure of 3 mmHg * There is no evidence of pulmonary hypertension. The PA systolic pressure is less than 36 mmHg. MMode 2D Measurements and Calculations IVSd 0.93 cm IVSs 1.1 cm LVIDd 4.7 cm LVIDs 3.7 cm LVPWd 10 cm LVPWs 1.2 cm IVS/LVPW 0.93 FS 20.6 % EDV(Teich) 100.5 ml ESV(Teich) 58.1 ml EF(Teich) 42.1 % EDV(cubed) 101.3 ml ESV(cubed) 50.7 ml EF(cubed) 50.0 % % IVS thick 14.2 % % LVPW thick 17.2 % LV mass(C)d 154.8 grams LV mass(C)dI 83.7 grams/m\S\2 LV mass(C)s 132.5 grams LV mass(C)sI 71.6 grams/m\S\2 SV(Teich) 42.3 ml SI(Teich) 22.9 ml/m\S\2 SV(cubed) 50.7 ml SI(cubed) 27.4 ml/m\S\2 Ao root diam 3.1 cm Ao root area 7.4 cm\S\2 ACS 1.7 cm LA dimension 3.8 cm asc Aorta Diam 2.9 cm LA/Ao 1.2 EDV(MOD-sp4) 136.0 ml ESV(MOD-sp4) 82.0 ml EF(MOD-sp4) 39.7 % EDV(MOD-sp2) 128.0 ml ESV(MOD-sp2) 72.0 ml EF(MOD-sp2) 43.8 % SV(MOD-sp4) 54.0 ml SI(MOD-sp4) 29.2 ml/m\S\2 SV(MOD-sp2) 56.0 ml SI(MOD-sp2) 30.3 ml/m\S\2 Doppler Measurements and Calculations MV E max melony 82.0 cm/sec MV A max melony 99.2 cm/sec MV E/A 0.83 MV P1/2t max melony 87.6 cm/sec MV P1/2t 74.4 msec MVA(P1/2t) 3.0 cm\S\2 MV dec slope 344.6 cm/sec\S\2 MV dec time 0.33 sec Ao V2 max 113.2 cm/sec Ao max PG 5.1 mmHg Ao max PG (full) 1.4 mmHg LV V1 max PG 3.7 mmHg LV V1 max 96.5 cm/sec PA V2 max 88.8 cm/sec PA max PG 3.2 mmHg TR max melony 231.6 cm/sec
--- NOTE | 2017-12-10 17:55 | Family Medicine Progress Note ---
Progress Note Date of Service Dec 10, 2017. Subjective Pt evaluation today including: conversation w/ patient, physical exam, chart review, lab review, review of studies, review of inpatient medication list Pain: mild abdominal discomfort PO Intake: adequate Voiding: no voiding problems No acute events. Patient reports "upset stomach" She currently denies further N /V. She denies Chest pain, palpitation, SOB, calf tenderness Constitutional: No fever, No chills, No weakness Respiratory: No cough, No sputum, No shortness of breath Cardiovascular: No chest pain, No edema, No palpitations Abdomen: + problem reported, No nausea, No vomiting, No diarrhea Female : No dysuria, No urinary frequency Skin: No rash, No itch Medications Current Inpatient Medications Medications (Trade) Dose Ordered Sig/Lulú Route Start Time Stop Time Status Last Admin Dose Admin Acetaminophen (Tylenol Tab) 650 mg Q4H PRN PO 12/10/17 03:30 01/09/18 03:29 12/10/17 23:50 650 MG Al Hydrox/Mg Hydrox/Simethicone (Maalox Max Susp) 15 ml Q4H PRN PO 12/10/17 03:30 01/09/18 03:29 Magnesium Hydroxide (Milk Of Magnesia Susp) 30 ml Q12H PRN PO 12/10/17 03:30 01/09/18 03:29 Ondansetron HCl (Zofran Inj) 4 mg Q6H PRN IV 12/10/17 03:30 01/09/18 03:29 12/11/17 05:52 4 MG Nitroglycerin (Nitrostat Tab) 0.4 mg UD PRN SL 12/10/17 03:30 01/09/18 03:29 Nitroglycerin (Nitroglycerin 2% Oint) 1 inch Q6H EXT 12/10/17 05:00 01/09/18 04:59 12/10/17 17:21 1 INCH Morphine Sulfate (MoRPHine SULFATE INJ) 2 mg Q30M PRN IV 12/10/17 03:30 12/24/17 03:29 12/10/17 05:06 2 MG Aspirin (Ecotrin Tab) 81 mg QAM PO 12/10/17 09:00 01/09/18 08:59 12/10/17 09:35 81 MG Polyethylene (Miralax Powder Packet) 17 gm DAILY PRN PO 12/10/17 03:30 01/09/18 03:29 Albuterol Sulfate (Ventolin 0.083% 2.5MG/3ML Neb) 2.5 mg Q4H PRN INH 12/10/17 04:15 01/09/18 04:14 12/10/17 23:18 2.5 MG Arformoterol Tartrate (Brovana 15MCG/ 2ML Neb Soln) 15 mcg BIDR INH 12/10/17 08:00 01/09/18 07:59 12/11/17 07:16 15 MCG Budesonide (Pulmicort Respules 0.5MG/ 2ML Neb Soln) 0.5 mg BIDR INH 12/10/17 08:00 01/09/18 07:59 12/11/17 07:16 0.5 MG Clonazepam (Klonopin Tab) 0.5 mg Q12H PRN PO 12/10/17 04:15 01/09/18 04:14 12/10/17 23:56 0.5 MG Escitalopram Oxalate (Lexapro Tab) 20 mg DAILY PO 12/10/17 09:00 01/09/18 08:59 Future Hold 12/10/17 10:37 20 MG Fluticasone Propionate (Flonase Nasal [place]) 2 sprays DAILY NANCY 12/10/17 09:00 01/09/18 08:59 Hydroxyzine HCl (Vistaril Tab) 10 mg TID PRN PO 12/10/17 04:15 01/09/18 04:14 Future Hold Levothyroxine Sodium (Synthroid Tab) 25 mcg DAILYBB PO 12/10/17 06:00 01/09/18 05:59 12/11/17 05:53 25 MCG Meloxicam (Mobic Tab) 7.5 mg DAILY PO 12/10/17 09:00 01/09/18 08:59 12/10/17 10:37 7.5 MG Metformin HCl (Glucophage Tab) 1,000 mg BID PO 12/10/17 09:00 01/09/18 08:59 Future Hold Montelukast Sodium (Singulair Tab) 10 mg HS PO 12/10/17 21:00 01/09/18 20:59 12/10/17 20:28 10 MG Potassium Chloride (Klor-Con Tab) 20 meq BID PO 12/10/17 09:00 01/09/18 08:59 12/10/17 20:27 20 MEQ Ranitidine HCl (zANTac TAB) 150 mg DAILY PO 12/10/17 09:00 01/09/18 08:59 12/10/17 09:36 150 MG Rivaroxaban (Xarelto Tab) 20 mg QAM PO 12/10/17 09:00 01/09/18 08:59 12/10/17 10:37 20 MG Roflumilast (Daliresp Tab) 500 mcg DAILY PO 12/10/17 09:00 01/09/18 08:59 Tiotropium [place] (Spiriva Handihaler Inhaler) 1 puff DAILY INH 12/10/17 09:00 01/09/18 08:59 12/10/17 09:36 1 PUFF Theophylline (Uniphyl Controlled Rel 24hr Tab) 400 mg QAM PO 12/10/17 09:00 01/09/18 08:59 12/10/17 12:36 400 MG Promethazine HCl 12.5 mg/Sodium Chloride 50.5 ml @ 204 mls/hr Q6H PRN IV 12/10/17 04:15 01/09/18 04:14 12/10/17 19:12 204 MLS/HR Ferrous Sulfate (Feosol Tab) 325 mg BIDM PO 12/10/17 07:30 01/09/18 07:59 12/10/17 17:17 325 MG Prednisone (PredniSONE TAB) 20 mg DAILY PO 12/10/17 09:00 01/09/18 08:59 12/10/17 09:35 20 MG Glucose (Glucose 40% Gel) 15-30 GRAMS 15 GRAMS... UD PRN PO 12/10/17 06:15 01/09/18 06:14 Glucose (Glucose Chew Tab) 4-8 Tablets 4 Tabl... UD PRN PO 12/10/17 06:15 01/09/18 06:14 Dextrose (Dextrose 50% 50ML Syringe) 25-50ML OF 50% DW IV FOR... UD PRN IV 12/10/17 06:15 01/09/18 06:14 Glucagon (Glucagon Inj) 1 mg UD PRN SQ 12/10/17 06:15 01/09/18 06:14 Atorvastatin Calcium (Lipitor Tab) 80 mg QAM PO 12/11/17 09:00 01/10/18 08:59 Metoprolol Tartrate (Lopressor Tab) 50 mg BID PO 12/10/17 21:00 01/09/18 20:59 12/10/17 20:27 50 MG Potassium Chloride 40 meq/ Sodium Chloride 1,020 ml @ 80 mls/hr [id number] IV 12/10/17 21:00 01/09/18 20:59 12/10/17 21:50 80 MLS/HR Calcium Carbonate (oS-[place] 500 TAB) 1,250 mg TID PO 12/10/17 21:00 01/09/18 20:59 12/10/17 21:51 1,250 MG Miscellaneous Information (Consult Glycemic Management Pharmacy) 1 ea UD PRN N/A 12/10/17 21:48 01/09/18 21:47 Insulin Aspart (novoLOG ASPART) SLIDING SCALE Q4H SC 12/10/17 22:00 01/09/18 21:59 12/10/17 22:07 4 UNITS Objective Vital Signs Date Time Temp Pulse Resp B/P (MAP) Pulse Ox O2 Delivery O2 Flow Rate FiO2 12/11/17 08:12 36.6 66 16 104/63 (77) 98 12/11/17 07:18 68 18 99 Nasal Cannula 2.0 12/11/17 04:00 99 Nasal Cannula 2.0 12/11/17 03:58 37.2 58 18 117/71 (86) 99 Nasal Cannula 2.0 12/11/17 02:02 37.1 70 98/63 (75) 94 Nasal Cannula 2.0 12/11/17 01:00 66 88/62 (71) 98 12/11/17 00:17 37.9 89 20 140/82 (101) 95 Nasal Cannula 2.0 12/11/17 00:00 98 Nasal Cannula 2.0 12/11/17 00:00 88 96/50 (65) 98 Nasal Cannula 2.0 12/10/17 23:18 84 24 95 Nasal Cannula 2.0 12/10/17 20:00 Nasal Cannula 2.0 12/10/17 19:35 36.0 83 22 106/64 (78) 97 Nebulizer 2.0 12/10/17 19:21 91 20 97 Nasal Cannula 2.0 12/10/17 16:52 97 22 97 Nasal Cannula 2.0 12/10/17 16:00 Nasal Cannula 2.0 12/10/17 15:35 36.3 74 20 125/80 (95) 97 Nasal Cannula 2.0 12/10/17 12:13 85 20 98 Nasal Cannula 2.0 12/10/17 12:00 Nasal Cannula 2.0 12/10/17 11:43 36.8 80 16 158/72 (100) 95 Physical Exam General Appearance: WD/WN, no apparent distress Eyes: PERRL, EOMI Neck: supple, no adenopathy Respiratory/Chest: lungs clear, normal breath sounds, no respiratory distress, no accessory muscle use Cardiovascular: regular rate, rhythm, no murmur Abdomen: normal bowel sounds, non tender, soft Extremities: normal range of motion, no pedal edema, no calf tenderness Neurologic/Psychiatric: alert, normal mood/affect Skin: warm/dry, no rash Laboratory Results Results Past 24 Hours Test 12/10/17 09:26 12/10/17 11:13 12/10/17 12:16 12/10/17 15:58 Range/Units Sodium Level 124 136-145 mmol/L Potassium Level 2.3 3.1 3.5-5.1 mmol/L Chloride Level 82 98-107 mmol/L Carbon Dioxide Level 31 21-32 mmol/L Anion Gap 10.0 3-11 mmol/L Blood Urea Nitrogen 18 7-18 mg/dl Creatinine 0.84 0.60-1.20 mg/dl Est Creatinine Clear Calc Drug Dose 59.5 ml/min Estimated GFR () 79.9 Estimated GFR (Non- 69.0 BUN/Creatinine Ratio 21.6 10-20 Random Glucose 160 70-99 mg/dl Calcium Level 7.0 8.5-10.1 mg/dl Bedside Glucose 144 70-90 mg/dl Troponin I 0.152 0-0.045 ng/ml Test 12/10/17 16:40 12/10/17 18:21 12/10/17 20:11 12/11/17 00:26 Range/Units Bedside Glucose 128 242 70-90 mg/dl Troponin I 0.089 0-0.045 ng/ml Sodium Level 129 136-145 mmol/L Potassium Level 2.9 3.5-5.1 mmol/L Chloride Level 90 98-107 mmol/L Carbon Dioxide Level 29 21-32 mmol/L Anion Gap 10.0 3-11 mmol/L Blood Urea Nitrogen 15 7-18 mg/dl Creatinine 0.80 0.60-1.20 mg/dl Est Creatinine Clear Calc Drug Dose 62.5 ml/min Estimated GFR () 84.8 Estimated GFR (Non- 73.1 BUN/Creatinine Ratio 18.8 10-20 Random Glucose 54 70-99 mg/dl Calcium Level 7.3 8.5-10.1 mg/dl Magnesium Level 1.7 1.8-2.4 mg/dl Test 12/11/17 01:55 12/11/17 05:46 12/11/17 06:58 Range/Units Bedside Glucose 89 92 70-90 mg/dl Sodium Level 133 136-145 mmol/L Potassium Level 3.7 3.5-5.1 mmol/L Chloride Level 98 98-107 mmol/L Carbon Dioxide Level 26 21-32 mmol/L Anion Gap 9.0 3-11 mmol/L Blood Urea Nitrogen 13 7-18 mg/dl Creatinine 0.67 0.60-1.20 mg/dl Est Creatinine Clear Calc Drug Dose 76.4 ml/min Estimated GFR () 101.1 Estimated GFR (Non- 87.2 BUN/Creatinine Ratio 18.8 10-20 Random Glucose 78 70-99 mg/dl Calcium Level 7.5 8.5-10.1 mg/dl Assessment and Plan 71 yo F with COPD , diastolic CHF presenting with N/V admitted with NSTEMI with ST depression NSTEMI 2/2 Demand Ischemia vs ACS EKG showed ST depression. Echo in Sep was grossly normal. Trop was 0.296 on arrival trending down Per Cardiology, Catheterization possible tomorrow c/w asa Nausea / Vomiting ACS vs gastroenteritis X-ray Abdomen, CT abdomen negative for obstruction c/w Promethazine 12.5mg IV PRN for n/v. Hypokalemia / Hypomagnesemia / Hyponatremia K 2.3 Given additional 40meq K IV c/w 20 PO meq PO BID Mg normalized Repeat potassium this evening COPD stable cxr without acute findings c/w Arformoterol Tartrate (Brovana), 15 MCG NEB BID c/w Budesonide 0.5 MG NEB BID c/w Montelukast Sodium (Singulair), 10 MG PO HS c/w Roflumilast (Daliresp), 500 MCG PO DAILY c/w Theophylline (Rohit-24), 400 MG PO QAM c/w Tiotropium [place] (Spiriva Handihaler), 1 CAP INH DAILY c/w Pred 20mg daily Depression / Anxiety Continue home regime of ... Held Lexapro 20 MG PO DAILY for possible QT prolongation prior tp CAth Held Mirtazapine 30 MG PO HS for possible QT prolongation prior to Cath Held Quetiapine Fumarate (Seroquel), 200 MG PO HS for possible QT prolongation prior to Cath clonazepam 0.5 MG PO Q12H PRN for Anxiety/Agitation Held Hydroxyzine HCl 10 MG PO TID PRN for Anxiety for possible QT prolongation prior to Cath DM2 held Metformin 1,000 MG PO BID c/w Insulin SS History of PE & Ovarian CA c/w Xarelto 20 MG PO QAM Hypothyroid c/w Synthroid 25 MCG PO QAM OA c/w Meloxicam 7.5 MG PO DAILY Iron Deficiency MCG is 76 and Platelets are 502. Supplement with iron 325mg BID DVT Proph: Xarelto as above. DIET: NPO and IV NSS as above. Continued [facility] stay due to: multiple IV medications needed Discharge planning: home Resident Tracking Resident Involvement: Resident Care Provided Care Provided: Adult Hospital Medicine Assessment/Plan Resident Physician Supervision Note: I was present with Dr. Cherry during the history and exam. I discussed the case with the resident and agree with the findings and plan as documented in the note. Any exceptions or clarifications are listed here: Pt reports gradual improvement in nausea and resolved retching from previously. Denies chest pain/SOB, palpitations, PRATT, lightheadedness or paresthesias. Hypokalemia is gradually improving with considerable repletion, likely 2/2 poor POI and significant vomiting prior to admission. Will d/c QT prolonging medications per cardiology recommendation, may wish to restart SSRI earlier and continue holding seroquel.
[2017-12-10] MEDS: METOPROLOL TARTRATE 50 MG TAB PO SCH (20:27)
[2017-12-10] MEDS: MONTELUKAST SOD 10 MG TAB PO SCH (20:28)
[2017-12-10] MEDS ORDERED: MIRTAZAPINE TAB 15 MG TAB PO SCH (21:00)
[2017-12-10] MEDS ORDERED: QUETIAPINE FUMARATE 200 MG TAB PO SCH (21:00)
[2017-12-10] MEDS ORDERED: NURSING VERBAL MED ORDER ONE (21:45)
[2017-12-10] MEDS ORDERED: PHARMACY GLYCEMIC MGMT CONSULT PRN (21:48)
[2017-12-10] MEDS: POTASSIUM CHLORIDE INJ 40 MEQ in SODIUM CHLORIDE 0.9% 1000ML 1,000 ML IV SCH (21:50)
[2017-12-10] MEDS: CALCIUM CARBONATE 1250MG TAB PO SCH (21:51)
[2017-12-10] MEDS: INSULIN ASPART 100 UNITS/ML 3 ML PEN SC SCH (22:07)
[2017-12-10] MEDS: CLONAZEPAM 0.5 MG TAB PO PRN (23:56)
[2017-12-11] VITALS (22 sets, daily range): BP systolic 88–140; BP diastolic 50–82; PULSE 58–89; TEMP 36.4–37.9; O2SAT 94–99
[2017-12-11 01:05] LABS: CALCIUM 7.3 mg/dl (8.5-10.1); CREATININE 0.8 mg/dl (0.60-1.20); POTASSIUM 2.9 mmol/L (3.5-5.1)
[2017-12-11] MEDS: INSULIN ASPART 100 UNITS/ML 3 ML PEN SC SCH ×4 (02:00→18:00)
[2017-12-11] MEDS ORDERED: POTASSIUM CHLORIDE 20 MEQ/15 ML UDC PO STA (02:23)
[2017-12-11] MEDS ORDERED: MAGNESIUM CHLORIDE 64MG DELAYED REL TAB PO ONE ×2 (02:30→10:30)
--- NOTE | 2017-12-11 04:59 | Progress Note ---
Progress Note Date of Service Dec 11, 2017. Progress Note Received a call from the nurse that the patient had experienced a fall. Went to examine the patient, she was a little shaken about her fall but denies any acute complaints such as joint, muscle, back, neck or head pain. Patient denies striking her head. The fall was unwitnessed. Pt states that she got weak and fell to her knees at which point the nursing aid came to her assistance and sat her on the ground. Pt reports that she has had numerous episodes like this over the past year. Pt denies losing consciousness or chest pain. Story was corroborated with the nursing staff. PE exam is unchanged from prior in the day. Pelvis was stable, no obvious fractures or deformities, UE and LE have 5/5 power. No signs of trauma to the head. Lungs: Clear to auscultation bilaterally with no wheezes, rales, or rhonchi. Abdomen: Soft, completely nontender, nondistended, with good bowel sounds. There are no palpable pulsatile masses or hepatosplenomegaly. There is no guarding, rigidity, or rebound noted. Extremities: No evidence of cyanosis, clubbing, or edema. There are easily palpable peripheral pulses. Neuro: The patient is awake and alert, oriented to day, time, and place. EKG was obtained and reviewed by myself to show no acute changes from previous. BMP was ordered, K+ and Mg were found to be low. Potassium elixer and Mag sulfate was given. Telemetry monitoring showed no ectopy, pauses or runs of any arrhythmia that could cause this episode. Pt continues to be NPO with IVF running. Advised to keep the patient on bedrest until evaluated by day team. PT & OT were ordered.
[2017-12-11] MEDS: NITROGLYCERIN 2% OINTMENT 30GM TUBE EXT SCH ×4 (05:00→23:00)
[2017-12-11] MEDS: LEVOTHYROXINE 25 MCG TAB PO SCH (05:53)
[2017-12-11] MEDS: ARFORMOTEROL TART 15MCG/2ML VIAL INH SCH ×2 (07:16→19:57)
[2017-12-11] MEDS: BUDESONIDE 0.5 MG/2 ML VIAL (PULMICORT) INH SCH ×2 (07:16→19:57)
[2017-12-11 07:49] LABS: CALCIUM 7.5 mg/dl (8.5-10.1); CREATININE 0.67 mg/dl (0.60-1.20); POTASSIUM 3.7 mmol/L (3.5-5.1)
--- NOTE | 2017-12-11 08:18 | Clinical Documentation Query ---
CLINICAL DOCUMENTATION QUERY 71 yo female with history of COPD, chronic diastolic CHF and on 2L continuous O2 at home. In your clinical opinion is this patient being managed for: ( ) Chronic respiratory failure with hypoxia ( ) Not Agree ( ) Other explanation of clinical findings (Please Explain) ( ) Unable to determine (Please Define) ( ) Need to Discuss The medical record reflects the following clinical findings, treatment, and risk factors. Clinical Indicators: As above Treatment: O2, CXR, Theophylline, Prednisone, Brovana, Pulmicort, Albuterol Risk Factors: Age, COPD, CHF, NSTEMI Please clarify and document your clinical opinion in the progress notes and discharge summary. Terms such as "probable", "suspected", "likely", "questionable", "possible", or "still to be ruled out" are acceptable. IF IN AGREEMENT, YOU MUST DOCUMENT ABOVE DIAGNOSTIC STATEMENT IN DAILY PROGRESS NOTES AND DISCHARGE SUMMARY. This document is not part of the patient's record. Thank You, Rosaura Patel RN [phone]
[2017-12-11] MEDS: ATORVASTATIN 40 MG TAB PO SCH (09:39)
[2017-12-11] MEDS: METOPROLOL TARTRATE 50 MG TAB PO SCH (09:39)
[2017-12-11] MEDS: MELOXICAM 7.5 MG TAB PO SCH (09:39)
[2017-12-11] MEDS: ROFLUMILAST 500 MCG TAB PO SCH (09:39)
[2017-12-11] MEDS: THEOPHYLLINE 400MG CONTROLLED REL TAB PO SCH (09:40)
[2017-12-11] MEDS: CALCIUM CARBONATE 1250MG TAB PO SCH ×3 (09:40→20:13)
[2017-12-11] MEDS: TIOTROPIUM BROMIDE 5 PUFF/90 MCG INH INH SCH (09:40)
[2017-12-11] MEDS: FERROUS SULFATE 325 MG TAB PO SCH ×2 (09:40→18:29)
[2017-12-11] MEDS: ASPIRIN 81 MG ECTAB PO SCH (09:40)
[2017-12-11] MEDS: FLUTICASONE PROPIONATE NA SPR 16 GM BTL NAE SCH (09:41)
[2017-12-11] MEDS: POTASSIUM CHLORIDE 20 MEQ TABCR PO SCH ×2 (09:41→20:15)
[2017-12-11] MEDS: RANITIDINE HCL 150 MG TAB PO SCH (09:42)
[2017-12-11] MEDS ORDERED: NURSING VERBAL MED ORDER ONE ×2 (10:00→16:30)
--- NOTE | 2017-12-11 10:15 | Cardiology Follow-Up ---
Subjective Date of Service: Dec 11, 2017. Pt evaluation today including: conversation w/ patient, physical exam, chart review, lab review History of Present Illness 72 yo female with a h/o COPD, T2DM (A1c 8.8), PE on Xeralto and depression/ anxiety presented with one week of abdominal tenderness, nausea and vomiting. Patient reports a fall last night. She said that it occurred around midnight when getting up to use the bathroom. She was able to get to the bathroom on her own okay but she said that she felt unsteady on her feet while washing her hands. She suddenly fell to her knees which resulted in a abrasion of her right knee. She denies LOC prior to and following the fall. In addition, she denies hitting her head. Patient reports feeling weak and dizzy at home. Patient denies CP, SOB, lower extremity edema or syncope. Social History Smoking Status: Former Smoker History of Alcohol Use: No Review of Systems Respiratory: No cough, No sputum, No wheezing, No shortness of breath Cardiac: No chest pain, No edema, No palpitations Medications Current Inpatient Medications Medications (Trade) Dose Ordered Sig/Lulú Route Start Time Stop Time Status Last Admin Dose Admin Acetaminophen (Tylenol Tab) 650 mg Q4H PRN PO 12/10/17 03:30 01/09/18 03:29 12/10/17 23:50 650 MG Al Hydrox/Mg Hydrox/Simethicone (Maalox Max Susp) 15 ml Q4H PRN PO 12/10/17 03:30 01/09/18 03:29 Magnesium Hydroxide (Milk Of Magnesia Susp) 30 ml Q12H PRN PO 12/10/17 03:30 01/09/18 03:29 Ondansetron HCl (Zofran Inj) 4 mg Q6H PRN IV 12/10/17 03:30 01/09/18 03:29 12/11/17 05:52 4 MG Nitroglycerin (Nitrostat Tab) 0.4 mg UD PRN SL 12/10/17 03:30 01/09/18 03:29 Nitroglycerin (Nitroglycerin 2% Oint) 1 inch Q6H EXT 12/10/17 05:00 01/09/18 04:59 12/10/17 17:21 1 INCH Morphine Sulfate (MoRPHine SULFATE INJ) 2 mg Q30M PRN IV 12/10/17 03:30 12/24/17 03:29 12/10/17 05:06 2 MG Aspirin (Ecotrin Tab) 81 mg QAM PO 12/10/17 09:00 01/09/18 08:59 12/10/17 09:35 81 MG Polyethylene (Miralax Powder Packet) 17 gm DAILY PRN PO 12/10/17 03:30 01/09/18 03:29 Albuterol Sulfate (Ventolin 0.083% 2.5MG/3ML Neb) 2.5 mg Q4H PRN INH 12/10/17 04:15 01/09/18 04:14 12/10/17 23:18 2.5 MG Arformoterol Tartrate (Brovana 15MCG/ 2ML Neb Soln) 15 mcg BIDR INH 12/10/17 08:00 01/09/18 07:59 12/11/17 07:16 15 MCG Budesonide (Pulmicort Respules 0.5MG/ 2ML Neb Soln) 0.5 mg BIDR INH 12/10/17 08:00 01/09/18 07:59 12/11/17 07:16 0.5 MG Clonazepam (Klonopin Tab) 0.5 mg Q12H PRN PO 12/10/17 04:15 01/09/18 04:14 12/10/17 23:56 0.5 MG Escitalopram Oxalate (Lexapro Tab) 20 mg DAILY PO 12/10/17 09:00 01/09/18 08:59 Future Hold 12/10/17 10:37 20 MG Fluticasone Propionate (Flonase Nasal [place]) 2 sprays DAILY NANCY 12/10/17 09:00 01/09/18 08:59 Hydroxyzine HCl (Vistaril Tab) 10 mg TID PRN PO 12/10/17 04:15 01/09/18 04:14 Future Hold Levothyroxine Sodium (Synthroid Tab) 25 mcg DAILYBB PO 12/10/17 06:00 01/09/18 05:59 12/11/17 05:53 25 MCG Meloxicam (Mobic Tab) 7.5 mg DAILY PO 12/10/17 09:00 01/09/18 08:59 12/10/17 10:37 7.5 MG Metformin HCl (Glucophage Tab) 1,000 mg BID PO 12/10/17 09:00 01/09/18 08:59 Future Hold Montelukast Sodium (Singulair Tab) 10 mg HS PO 12/10/17 21:00 01/09/18 20:59 12/10/17 20:28 10 MG Potassium Chloride (Klor-Con Tab) 20 meq BID PO 12/10/17 09:00 01/09/18 08:59 12/10/17 20:27 20 MEQ Ranitidine HCl (zANTac TAB) 150 mg DAILY PO 12/10/17 09:00 01/09/18 08:59 12/10/17 09:36 150 MG Rivaroxaban (Xarelto Tab) 20 mg QAM PO 12/10/17 09:00 01/09/18 08:59 Future Hold 12/10/17 10:37 20 MG Roflumilast (Daliresp Tab) 500 mcg DAILY PO 12/10/17 09:00 01/09/18 08:59 Tiotropium [place] (Spiriva Handihaler Inhaler) 1 puff DAILY INH 12/10/17 09:00 01/09/18 08:59 12/10/17 09:36 1 PUFF Theophylline (Uniphyl Controlled Rel 24hr Tab) 400 mg QAM PO 12/10/17 09:00 01/09/18 08:59 12/10/17 12:36 400 MG Promethazine HCl 12.5 mg/Sodium Chloride 50.5 ml @ 204 mls/hr Q6H PRN IV 12/10/17 04:15 01/09/18 04:14 12/10/17 19:12 204 MLS/HR Ferrous Sulfate (Feosol Tab) 325 mg BIDM PO 12/10/17 07:30 01/09/18 07:59 12/10/17 17:17 325 MG Prednisone (PredniSONE TAB) 20 mg DAILY PO 12/10/17 09:00 01/09/18 08:59 12/10/17 09:35 20 MG Glucose (Glucose 40% Gel) 15-30 GRAMS 15 GRAMS... UD PRN PO 12/10/17 06:15 01/09/18 06:14 Glucose (Glucose Chew Tab) 4-8 Tablets 4 Tabl... UD PRN PO 12/10/17 06:15 01/09/18 06:14 Dextrose (Dextrose 50% 50ML Syringe) 25-50ML OF 50% DW IV FOR... UD PRN IV 12/10/17 06:15 01/09/18 06:14 Glucagon (Glucagon Inj) 1 mg UD PRN SQ 12/10/17 06:15 01/09/18 06:14 Atorvastatin Calcium (Lipitor Tab) 80 mg QAM PO 12/11/17 09:00 01/10/18 08:59 Metoprolol Tartrate (Lopressor Tab) 50 mg BID PO 12/10/17 21:00 01/09/18 20:59 12/10/17 20:27 50 MG Potassium Chloride 40 meq/ Sodium Chloride 1,020 ml @ 80 mls/hr [id number] IV 12/10/17 21:00 01/09/18 20:59 12/10/17 21:50 80 MLS/HR Calcium Carbonate (oS-[place] 500 TAB) 1,250 mg TID PO 12/10/17 21:00 01/09/18 20:59 12/10/17 21:51 1,250 MG Miscellaneous Information (Consult Glycemic Management Pharmacy) 1 ea UD PRN N/A 12/10/17 21:48 01/09/18 21:47 Insulin Aspart (novoLOG ASPART) SLIDING SCALE Q4H SC 12/10/17 22:00 01/09/18 21:59 12/10/17 22:07 4 UNITS Objective Vital Signs Past 12 Hours Date Time Temp Pulse Resp B/P (MAP) Pulse Ox O2 Delivery O2 Flow Rate FiO2 12/11/17 08:12 36.6 66 16 104/63 (77) 98 12/11/17 07:18 68 18 99 Nasal Cannula 2.0 12/11/17 04:00 99 Nasal Cannula 2.0 12/11/17 03:58 37.2 58 18 117/71 (86) 99 Nasal Cannula 2.0 12/11/17 02:02 37.1 70 98/63 (75) 94 Nasal Cannula 2.0 12/11/17 01:00 66 88/62 (71) 98 12/11/17 00:17 37.9 89 20 140/82 (101) 95 Nasal Cannula 2.0 12/11/17 00:00 98 Nasal Cannula 2.0 12/11/17 00:00 88 96/50 (65) 98 Nasal Cannula 2.0 12/10/17 23:18 84 24 95 Nasal Cannula 2.0 Last Recorded Weight-Kilograms: 83.200 Physical Exam Constitutional: General Apperance: obese Level of Distress: NAD Ambulation: limited ambulation Lungs: Respiratory effort: no dyspnea, good air movement Auscultation: breath sounds normal, CTA except as noted, no wheezing, no rales/crackles, no rhonchi Cardiovascular: Heart Auscultation: RRR, normal S1, normal S2, no murmurs Peripheral Pulses: Bruits: none appreciated Radial Pulse: normal on the left, normal on the right Extremities: no cyanosis, no edema, no clubbing, no ulcers Data Laboratory Results: Last 24 Hours Test 12/10/17 11:13 12/10/17 12:16 12/10/17 15:58 12/10/17 16:40 Bedside Glucose 144 mg/dl 128 mg/dl Troponin I 0.152 ng/ml Potassium Level 3.1 mmol/L Test 12/10/17 18:21 12/10/17 20:11 12/11/17 00:26 12/11/17 01:55 Troponin I 0.089 ng/ml Bedside Glucose 242 mg/dl 89 mg/dl Sodium Level 129 mmol/L Potassium Level 2.9 mmol/L Chloride Level 90 mmol/L Carbon Dioxide Level 29 mmol/L Anion Gap 10.0 mmol/L Blood Urea Nitrogen 15 mg/dl Creatinine 0.80 mg/dl Est Creatinine Clear Calc Drug Dose 62.5 ml/min Estimated GFR () 84.8 Estimated GFR (Non- 73.1 BUN/Creatinine Ratio 18.8 Random Glucose 54 mg/dl Calcium Level 7.3 mg/dl Magnesium Level 1.7 mg/dl Test 12/11/17 05:46 12/11/17 06:58 Bedside Glucose 92 mg/dl Sodium Level 133 mmol/L Potassium Level 3.7 mmol/L Chloride Level 98 mmol/L Carbon Dioxide Level 26 mmol/L Anion Gap 9.0 mmol/L Blood Urea Nitrogen 13 mg/dl Creatinine 0.67 mg/dl Est Creatinine Clear Calc Drug Dose 76.4 ml/min Estimated GFR () 101.1 Estimated GFR (Non- 87.2 BUN/Creatinine Ratio 18.8 Random Glucose 78 mg/dl Calcium Level 7.5 mg/dl Imaging: ECHO 12/10/17 * -- Conclusions -- * 1. Normal LV size. Normal LV wall thickness. * 2. LVEF 40-45%. Mid septal, anteroseptal akinesis. Akinetic apex. * 3. Normal RV size and function. * 4. No significant valvular pathology. * 5. Normal estimated PA and RA pressures. * 6. Small pericardial effusion. * 7. Compared with prior study on 09/23/2016: LAD distribution wall motion abnormality is new. Telemetry reviewed: NSR 60's overnight Assessment and Plan 72 year female presents with nausea, vomiting and decreased PO intake for 4 days. The patient has a h/o T2DM and past history of tobacco use (48 pack years) . Patient was found to have significant electrolyte abnormalities; hyponatremia , hypokalemia, hypomagnesium. EKG showed ST depression in anterior leads, with elevated troponin and CKMB. On exam the patient was found to have a tender, distended abdomen and some anterior chest wall tenderness. The patients presentation and history of recent ill contacts are consistent with viral gastroenteritis and dehydration, but the presentation of EKG changes and elevated cardiac enzymes in conjunction with her smoking history and diabetes makes her story more compelling for an atypical presentation of ACS. The patient had a morgan score of 132, representing a 12% increase in mortality in 6 months and PALLAVI of 3. With this in mind, the patient would benefit from the following medical management; ASA, beta pauly and statin. 12/10 Patient electrolytes are normalizing Na 133, K 3.7. Patient had a fall last night. Likely 2/2 deconditioning and orthostasis. Echo showed EF 40-45% and a new wall motion abnormality in the distribution of LAD. The patient is scheduled to have a cardiac cath today. Dc'ed Xeralto. Continue to hold Qt prolonging medications. Reducing the patients Lopressor from 50 mg BID to 25 mg BID. 1. NSTEMI -EKG q am and with chest pain -Continue IVF and electrolyte repletion -Starting ASA, BB and statin therapies -Cardiac cath scheduled today, hold am Xeralto 2. Prolonged Qtc -Adjust offending medications, replete electrolytes Dr. Hutchison addendum: Patient seen and examined, diagnostic tests personally reviewed. Agree with assessment as outlined by Dr. Patricio. Patient had fall overnight in the setting lower extremity weakness. Has had no recurrent chest pain or associated cardiac symptoms. GI symptoms largely resolved. Telemetry unremarkable. Electrolytes improved. QTC approaching normal. Cardiac catheterization revealed essentially normal coronary arteries and normal intracardiac filling pressures. Etiology of patient's regional wall motion abnormality, elevated troponin unclear possibly some vasospasm versus stress-induced cardiomyopathy. Recommend continuation of low-dose beta-pauly. Reasonable to continue statin in the setting of diabetes Would limit QTC prolonging medications in the future Can resume prior Xarelto. From a cardiac standpoint okay for discharge when medical issues resolved. Recommend follow-up echocardiogram in 3 months.
[2017-12-11] MEDS: POTASSIUM CHLORIDE INJ 40 MEQ in SODIUM CHLORIDE 0.9% 1000ML 1,000 ML IV SCH (11:13)
[2017-12-11] MEDS: ALBUTEROL 0.083% NEBU SOLN 3 ML VIAL INH PRN ×3 (11:39→23:45)
--- NOTE | 2017-12-11 13:11 | Pharmacy Progress Note ---
Glycemic Control Intl Consult Date of Service Dec 11, 2017. Scope Glycemic Pharmacist consulted by Dr Guido on 12/10/17 for glycemic control and to write orders per [facility] inpatient glycemic control protocol Objective Weight (Kilograms): 83.200 Accuchecks BSG (last 24hrs): Test 12/10/17 16:40 12/10/17 20:11 12/11/17 00:26 12/11/17 01:55 Bedside Glucose 128 mg/dl (70-90) 242 mg/dl (70-90) 89 mg/dl (70-90) Random Glucose 54 mg/dl (70-99) Test 12/11/17 05:46 12/11/17 06:58 12/11/17 10:35 Bedside Glucose 92 mg/dl (70-90) 84 mg/dl (70-90) Random Glucose 78 mg/dl (70-99) Laboratory Data (last 24hrs) Test 12/10/17 15:58 12/11/17 00:26 12/11/17 06:58 Potassium Level 3.1 mmol/L 2.9 mmol/L 3.7 mmol/L Anion Gap 10.0 mmol/L 9.0 mmol/L BUN/Creatinine Ratio 18.8 18.8 Blood Urea Nitrogen 15 mg/dl 13 mg/dl Creatinine 0.80 mg/dl 0.67 mg/dl Sodium Level 129 mmol/L 133 mmol/L Recent Pertinent Medications Outpatient Anti-diabetic Regimen: * NPH 20 units QAM plus metformin 1 gm PO BID * A1c = 8.8 % 10/29/17 The patient is currently receiving: * Basal insulin: NPH 15 units every 24 hours in the morning * Correctional Insulin: Novolog Correction per scale ACHS Goal Range: Low 110 mg/dL - High 150 mg/dL Correction Factor: 30 mg/dL/unit * Prandial insulin: Per carb ratio of 1 unit per 10 grams CHO consumed Risk Factors for Insulin Resistance: * Steroids: prednisone 20 mg PO daily * Diet: NPO for cardiac cath Assessment & Plan ASSESSMENT: * Ms Mini Clemons is a 72 y/o F with a PMH of COPD, CHF, ovarian CA, and poorly controlled type 2 diabetes (per the Elements of Diabetes Care Scoring Scale, the patient's goal HbA1C is 7.6-8.0%) who is admitted with elevated troponin and gastric distress. The patient received 15 units of NPH yesterday and blood sugars were [phone] ... she received Novolog 4 units at bedtime. Midnight PRP showed a blood sugar of 54 mg/dL. Blood sugars remained low throughout the night and morning with 89-92-84 mg/dL. * Held NPH for today even though patient did received prednisone. Monitor closely. * Will schedule reduced dose of NPH for tomorrow if diet is ordered. Continue current Novolog parameters (weight-based stress of 2). Monitor closely- will increase goal range to 140-180 mg/dL with decreased oral intake. * Pt is maintained on oral antidiabetic agents as an outpatient * Oral agents are not recommended for inpatient use d/t drug interactions, changing PO intake, and difficulty titrating for acute hyper/hypoglycemia. ADA recommends re-initiating outpatient oral agents 1-2 days prior to discharge if/ when appropriate if they were held on admission. * Will hold oral agents for admission and utilize SQ basal bolus insulin regimen which is the recommended regimen for inpatient glycemic control. * Will initiate weight based insulin dosing for insulin elza patient and titrate based on BSG trends. PLAN FOR INPATIENT GLYCEMIC CONTROL: * Holding outpatient oral diabetes medications * Basal insulin with NPH 10 units SQ if patient is ordered diet * Correctional Insulin with NOVOLOG per scale ACHS or Q4hrs while NPO * Goal Range: Low 140 mg/dL - High 180 mg/dL * Correction Factor: 30 mg/dL/unit * Nutritional / Prandial insulin per carb ratio of 1 unit per 10 grams CHO consumed * Please note that the plan above was derived based on current level of insulin resistance and hospital stress. These recommendations are appropriate for inpatient admission only. Plan of care upon discharge will need to be reassessed to avoid potential outpatient hypo/hyperglycemia. Thank you.
[2017-12-11] MEDS ORDERED: FENTANYL CITRATE INJ 50 MCG/1 ML 2 ML VIAL ONE (13:59)
[2017-12-11] MEDS ORDERED: MIDAZOLAM HCL 1 MG/ML 2ML VIAL ONE (13:59)
[2017-12-11] MEDS ORDERED: HEPARIN SOD (PORCINE) 1000 UNIT/ML 10 ML VIAL ONE (13:59)
[2017-12-11] MEDS ORDERED: NiCARDipine HCL INJ 2.5 MG/ML 10 ML AMP ONE (13:59)
[2017-12-11] MEDS ORDERED: LIDOCAINE HCL 1% 20 ML VIAL ONE (14:33)
--- NOTE | 2017-12-11 15:32 | Pre Sedation Assessment ---
Pre Sedation Assessment General Date of Sedation: Dec 11, 2017. Vital Signs Past 12 Hours Date Time Temp Pulse Resp B/P (MAP) Pulse Ox O2 Delivery O2 Flow Rate FiO2 12/11/17 15:20 66 16 128/80 (96) 95 Nasal Cannula 2 12/11/17 15:05 69 16 120/87 (98) 99 Mask 4 12/11/17 13:55 72 123/72 (89) 97 2.0 12/11/17 12:00 36.5 60 20 105/67 (80) 98 Nasal Cannula 12/11/17 12:00 Nasal Cannula 2.0 12/11/17 11:42 68 18 98 Nasal Cannula 2.0 12/11/17 08:12 36.6 66 16 104/63 (77) 98 12/11/17 08:00 Nasal Cannula 2.0 12/11/17 07:18 68 18 99 Nasal Cannula 2.0 12/11/17 04:00 99 Nasal Cannula 2.0 12/11/17 03:58 37.2 58 18 117/71 (86) 99 Nasal Cannula 2.0 Review Cardiovascular: regular rate, rhythm, no edema Lungs: chest non-tender, lungs clear Pre-Sedation Airway Assessment Smoking Status: Former Smoker Hx of Sleep Apnea: No Hx of difficult intubation: No Short Thick Neck: Yes Thyro-mental Distance: > 3 Finger Breadths Oral Cavity: Dentures Mallampati Classification: Class II ASA Classification: Class III NPO Status Date of Last Intake of Fluids: Dec 10, 2017 Time of Last Intake of Fluids: 2199 Date of Last Intake of Solids: Dec 10, 2017 Time of Last Intake of Solids: 2199 Procedure Planning Contraindications for Sedation: None Current Medications Reviewed: Yes Notes The planned sedation has been discussed with the patient. Informed Consent was obtained. I have identified the patient, determined the appropriateness of sedation and have assessed the patient immediately prior to the procedure. All medicine(s) and interventions are by my order.
--- NOTE | 2017-12-11 15:32 | Post Sedation Assessment ---
Post Sedation Assessment General Date of Sedation Dec 11, 2017. Vital Signs: Vital Signs Past 12 Hours Date Time Temp Pulse Resp B/P (MAP) Pulse Ox O2 Delivery O2 Flow Rate FiO2 12/11/17 15:20 66 16 128/80 (96) 95 Nasal Cannula 2 12/11/17 15:05 69 16 120/87 (98) 99 Mask 4 12/11/17 13:55 72 123/72 (89) 97 2.0 12/11/17 12:00 36.5 60 20 105/67 (80) 98 Nasal Cannula 12/11/17 12:00 Nasal Cannula 2.0 12/11/17 11:42 68 18 98 Nasal Cannula 2.0 12/11/17 08:12 36.6 66 16 104/63 (77) 98 12/11/17 08:00 Nasal Cannula 2.0 12/11/17 07:18 68 18 99 Nasal Cannula 2.0 12/11/17 04:00 99 Nasal Cannula 2.0 12/11/17 03:58 37.2 58 18 117/71 (86) 99 Nasal Cannula 2.0 Post Procedure Recovery Score Activity: (2) Moves 4 extremities * Respiration: (2) Deep breath/cough Circulation: (2) +/-20% PreAnes Value Consciousness: (2) Fully Awake Oxygen Saturation: (1) O2 needed for >90% Post Anesthesia Score: 9 Discharge Sedation Level of Care: Fast Track Phase II Post Sedation Plan On clinical assessment, the patient appears to have tolerated the sedation without complications. Patient is recovering as anticipated. Patient will continue to be monitored by nursing and may be discharged when sedation discharge criteria are met per below protocol. Upon Completions of procedure and additional 15 minutes continue every 5 minute vital signs and the P.A.R. score; then discharge to a Phase I or Fast Track to Phase II per the following guidelines: * Discharge Patient to appropriate Phase II area if PAR is 8 or greater or return to pre- procedure baseline. The post - procedure orders will be as directed. * If PAR score is less than 8 or not return to pre-procedure baseline then patient will follow Phase I monitoring till PAR is reached for Phase II. The Phase I may be done in procedure room or may call to secure a Phase I area. * If naloxone or flumazenil are used for reversal, hold in Phase I for an additional 60 -120 minutes before discharge to Phase II. Please call the Sedation Physician to re-evaluate and complete post-note for discharge to Phase II area. Do NOT discharge from procedure sedation or Phase 1 until post- sedation evaluation note is complete by procedure /sedation MD Sedation Discharge Instructions to be given to the patient at discharge to home.
[2017-12-11] MEDS ORDERED: SODIUM CHLORIDE 0.9% 1000ML 1,000 ML IV SCH (15:38)
--- NOTE | 2017-12-11 15:38 | Cardiac Catheterization ---
Procedure Note Procedure Date Dec 11, 2017. Pre-Procedure Diagnosis Non STEMI, Cardiomyopathy AUC Score 8 Post-Procedure Diagnosis Normal Coronary Arteries, Normal Intracardiac Pressures Procedure(s) Performed Coronary Angiography, Left Heart Cath Sas Analyst Foster Drag Out Man(s) Mary Estimated Blood Loss 10 Medication(s) Fentanyl, Heparin, Nicardipine, Versed, Lidocaine 1% Summary of Findings Indication: NSTEMI, cardiomyopathy Access: 6 [place] right radial artery Catheters: [place] Findings: LM - angiographically normal LAD - angiographically normal Circumflex - dominant, angiographically normal RCA - small non dominant, angiographically normal LVEDP - 10 Arterial Closure: TR band Summary: 1. Essentially normal coronary arteries 2. Normal intracardiac filling pressure Recommendations: Continue guideline directed medical therapy for cardiomyopathy Continued ASCVD primary prevention medications Hemodynamics Rest Ao: 106/51/73 Final Ao: 98/51/71 LV: 94/2/10 Recommendations Medical therapy and/or Counseling Specimens None Radiation Exposure (mGy) 568 Contrast (mls) 35 Fluids (cc crystalloids) 50 Drains None Anesthesia Moderate Procedural Complication(s) None Disposition PCU ACC Data Cardiac Status Clinical evaluation leading to the procedure CAD Presntation: Non STEMI Anginal Classification: CCS II Heart Failure: No, NYHA Class: CCS I Cardiogenic Shock w/in 24Hrs: No Cardiac Arrest w/in 24Hrs: No Imaging studies past 6 months: Yes Stress studies past 6 months: No Closure Device Percutaneous Entry Location: Radial Closure Device: Radial Band Recommendations: Medical therapy and/or Counseling Intraprocedure Events Significant Dissection: No Perforation: No
[2017-12-11] MEDS ORDERED: LPT40 PO (15:55)
[2017-12-11] MEDS ORDERED: ESCI1TAB10 PO (15:55)
[2017-12-11] MEDS ORDERED: LPR25 PO (15:55)
[2017-12-11] MEDS ORDERED: ASPEC81 PO (15:55)
[2017-12-11] MEDS ORDERED: PRD20 PO (15:55)
--- NOTE | 2017-12-11 16:02 | Discharge Instructions ---
Discharge Instructions Date of Service Dec 11, 2017. Admission Reason for Admission: Elevated Troponin, Nausea And Vomiting Discharge Discharge Diagnosis / Problem: gastroenteritis, NSTEMI Discharge Goals Goal(s): Decrease discomfort, Improve function, Diagnostic testing, Screening, Prevent Disease Progression Activity Recommendations Activity Limitations: as noted below Lifting Limitations: gradually increase as tolerated Exercise/Sports Limitations: as tolerated May Resume Sexual Activity: when tolerated Shower/Bathe: no limitations Driving or Machine Use: no limitations . Instructions / Follow-Up Instructions / Follow-Up Dear Mrs. Clemons You were admitted due to nausea, vomiting which we think is due to a GI bug. However, your cardiac enzymes were elevated. You underwent a cath that was essentially normal. You have been started on meds to protect your heart. You were also found to have worsening QT prolongation. It is likely that since your electrolytes were unbalanced, this contributed to this change. We have decreased your Lexapro to 10 mg. You will continue Seroquel at 200 mg. Continue Mirtazapine. Continue Clonazepam. Stop hydroxyzine. and Stop Zofran. You will need to follow up with your PCP within 3-5 days and get a repeat EKG to measure your QT again. If you have any chest pain, shortness of breath, dizziness or other concerns, please call your pcp or come back to the ER. Thank you Current Hospital Diet Patient's current hospital diet: Clear Liquid Diet Discharge Diet Recommended Diet: Diabetes Type 2 Diet Pending Studies Studies pending at discharge: no Laboratory Results Hemoglobin A1c Test 10/29/17 07:04 Range/Units Estimated Average Glucose 206 mg/dl Hemoglobin A1c 8.8 H 4.5-5.6 % Medical Emergencies . Who to Call and When: Medical Emergencies: If at any time you feel your situation is an emergency, please call 911 immediately. . Non-Emergent Contact Non-Emergency issues call your: Primary Care Provider, Bar Attendant . . "Provider Documentation" section prepared by Mena Byrd. .
--- NOTE | 2017-12-11 16:03 | Discharge Summary ---
Discharge Summary Date of Service Dec 11, 2017. Discharge Summary Admission Date: Dec 10, 2017 at 03:37 Discharge Date: Dec 11, 2017 Immunizations: Have You Had Influenza Vaccine: Yes History of Tetanus Vaccine?: Yes History of Pneumococcal: Yes History of Hepatitis B Vaccine: Unknown Hospital Course This includes examination of the patient, discharge planning, medication reconciliation, and communication with other providers. Discharge Instructions Please refer to the electronic Patient Visit Report (Discharge Instructions) for additional information.
[2017-12-11] MEDS ORDERED: COUGH DROP (SUGAR FREE) LOZ 24 LOZ/1 BOX LOZ PRN (16:45)
--- NOTE | 2017-12-11 17:54 | Family Medicine Progress Note ---
Progress Note Date of Service Dec 11, 2017. Subjective Pt evaluation today including: conversation w/ patient awaiting cath this afternoon Constitutional: No fever, No chills Eyes: No worsening of vision Respiratory: No cough, No sputum, No wheezing, No shortness of breath, No dyspnea on exertion Cardiovascular: No chest pain Abdomen: No pain, No nausea, No vomiting, No diarrhea, No constipation Medications Medications (Trade) Dose Ordered Sig/Lulú Route Start Time Stop Time Status Last Admin Dose Admin Montelukast Sodium (Singulair Tab) 10 mg HS PO 12/10/17 21:00 01/09/18 20:59 12/10/17 20:28 10 MG Atorvastatin Calcium (Lipitor Tab) 80 mg QAM PO 12/11/17 09:00 01/10/18 08:59 12/11/17 09:39 80 MG Metoprolol Tartrate (Lopressor Tab) 50 mg BID PO 12/10/17 21:00 12/11/17 10:29 DC 12/11/17 09:39 50 MG Potassium Chloride 40 meq/ Sodium Chloride 1,020 ml @ 80 mls/hr [id number] IV 12/10/17 21:00 01/09/18 20:59 12/11/17 11:13 80 MLS/HR Calcium Carbonate (oS-Jean [place] 500 TAB) 1,250 mg TID PO 12/10/17 21:00 01/09/18 20:59 12/11/17 09:40 1,250 MG Insulin Aspart (novoLOG ASPART) SLIDING SCALE Q4H SC 12/10/17 22:00 12/11/17 14:34 DC 12/10/17 22:07 4 UNITS Potassium Chloride (Sandi Ciel Elix) 40 meq NOW STAT PO 12/11/17 02:23 12/11/17 02:56 DC 12/11/17 03:19 40 MEQ Magnesium Chloride (Slow-Mag Tab) 64 mg ONE ONCE PO 12/11/17 02:30 12/11/17 02:56 DC 12/11/17 03:19 64 MG Magnesium Chloride (Slow-Mag Tab) 64 mg NOW ONCE PO 12/11/17 10:30 12/11/17 10:35 DC 12/11/17 11:12 64 MG Midazolam HCl (Versed Inj) 2 mg STK-MED ONCE .ROUTE 12/11/17 13:59 12/11/17 14:00 DC 12/11/17 13:59 1 MG Fentanyl Citrate (Fentanyl Inj) 100 mcg STK-MED ONCE .ROUTE 12/11/17 13:59 12/11/17 14:00 DC 12/11/17 13:59 25 MCG Heparin Sodium (Porcine) (Heparin Iv Bolus) 10,000 unit STK-MED ONCE .ROUTE 12/11/17 13:59 12/11/17 14:00 DC 12/11/17 13:59 5,000 UNIT Menthol (Nice Kena) 1 kena PRN PRN KENA 12/11/17 16:45 01/10/18 16:44 12/11/17 17:11 1 KENA Objective Vital Signs Date Time Temp Pulse Resp B/P (MAP) Pulse Ox O2 Delivery O2 Flow Rate FiO2 12/11/17 16:35 36.7 65 20 127/74 (91) 96 Nasal Cannula 2.0 12/11/17 16:15 36.9 62 20 127/74 (91) 96 Nasal Cannula 2.0 12/11/17 16:00 36.8 76 18 134/77 (96) 96 Nasal Cannula 2.0 98 12/11/17 15:45 37.1 64 18 131/66 (87) 94 Nasal Cannula 2.0 98 12/11/17 15:30 37.3 65 18 119/70 (86) 96 Nasal Cannula 2.0 12/11/17 15:20 66 16 128/80 (96) 95 Nasal Cannula 2 12/11/17 15:05 69 16 120/87 (98) 99 Mask 4 12/11/17 13:55 72 123/72 (89) 97 2.0 12/11/17 12:00 36.5 60 20 105/67 (80) 98 Nasal Cannula 12/11/17 12:00 Nasal Cannula 2.0 12/11/17 11:42 68 18 98 Nasal Cannula 2.0 12/11/17 08:12 36.6 66 16 104/63 (77) 98 12/11/17 08:00 Nasal Cannula 2.0 12/11/17 07:18 68 18 99 Nasal Cannula 2.0 12/11/17 04:00 99 Nasal Cannula 2.0 12/11/17 03:58 37.2 58 18 117/71 (86) 99 Nasal Cannula 2.0 12/11/17 02:02 37.1 70 98/63 (75) 94 Nasal Cannula 2.0 12/11/17 01:00 66 88/62 (71) 98 12/11/17 00:17 37.9 89 20 140/82 (101) 95 Nasal Cannula 2.0 12/11/17 00:00 98 Nasal Cannula 2.0 12/11/17 00:00 88 96/50 (65) 98 Nasal Cannula 2.0 12/10/17 23:18 84 24 95 Nasal Cannula 2.0 12/10/17 20:00 Nasal Cannula 2.0 12/10/17 19:35 36.0 83 22 106/64 (78) 97 Nebulizer 2.0 12/10/17 19:21 91 20 97 Nasal Cannula 2.0 Physical Exam General Appearance: no apparent distress Eyes: PERRL, EOMI Neck: supple, no JVD Respiratory/Chest: lungs clear, normal breath sounds, no respiratory distress, no accessory muscle use Cardiovascular: regular rate, rhythm Abdomen: normal bowel sounds, non tender, soft Extremities: non-tender, no pedal edema Neurologic/Psychiatric: no motor/sensory deficits, normal mood/affect, oriented x 3 Laboratory Results Test 12/10/17 01:47 12/10/17 02:45 12/10/17 03:05 12/10/17 03:28 White Blood Count 14.94 Red Blood Count 4.52 Hemoglobin 11.5 Hematocrit 34.7 Mean Corpuscular Volume 76.8 Mean Corpuscular Hemoglobin 25.4 Mean Corpuscular Hemoglobin Concent 33.1 Platelet Count 502 Mean Platelet Volume 8.4 Neutrophils (%) (Auto) 75.1 Lymphocytes (%) (Auto) 15.1 Monocytes (%) (Auto) 9.0 Eosinophils (%) (Auto) 0.2 Basophils (%) (Auto) 0.1 Neutrophils # (Auto) 11.21 Lymphocytes # (Auto) 2.26 Monocytes # (Auto) 1.35 Eosinophils # (Auto) 0.03 Basophils # (Auto) 0.01 RDW Standard Deviation 49.6 RDW Coefficient of Variation 17.7 Immature Granulocyte % (Auto) 0.5 Immature Granulocyte # (Auto) 0.08 Total Bilirubin 0.6 Direct Bilirubin 0.2 Aspartate Amino Transferase (AST) 28 Alanine Aminotransferase (ALT) 33 Alkaline Phosphatase 97 Total Creatine Kinase 152 Creatine Kinase MB 4.0 Creatine Kinase MB Ratio Total Protein 6.8 Albumin 3.2 Urine Color YELLOW Urine Appearance CLEAR Urine pH 5.0 Urine Specific [place] 1.020 Urine Protein NEG Urine Glucose (UA) 2+ Urine Ketones 1+ Urine Occult Blood NEG Urine Nitrite NEG Urine Bilirubin NEG Urine Urobilinogen NEG Urine Leukocyte Esterase NEG Prothrombin Time 12.5 Prothrombin Time INR 1.2 PTT 27.0 Partial Thromboplastin Ratio 1.0 Test 12/10/17 07:18 12/10/17 12:16 12/10/17 18:21 12/11/17 00:26 Magnesium Level 1.8 1.7 Troponin I 0.152 0.089 Sodium Level 129 Potassium Level 2.9 Chloride Level 90 Carbon Dioxide Level 29 Anion Gap 10.0 Blood Urea Nitrogen 15 Creatinine 0.80 Est Creatinine Clear Calc Drug Dose 62.5 Estimated GFR () 84.8 Estimated GFR (Non- 73.1 BUN/Creatinine Ratio 18.8 Random Glucose 54 Calcium Level 7.3 Test 12/11/17 06:58 12/11/17 10:35 12/11/17 13:50 Sodium Level 133 Potassium Level 3.7 Chloride Level 98 Carbon Dioxide Level 26 Anion Gap 9.0 Blood Urea Nitrogen 13 Creatinine 0.67 Est Creatinine Clear Calc Drug Dose 76.4 Estimated GFR () 101.1 Estimated GFR (Non- 87.2 BUN/Creatinine Ratio 18.8 Random Glucose 78 Calcium Level 7.5 POC Glucose 84 95 Assessment and Plan 71 yo F with COPD , diastolic CHF presenting with N/V admitted with NSTEMI with ST depression NSTEMI 2/2 Demand Ischemia vs ACS EKG showed ST depression. Echo in Sep was grossly normal. Trop was 0.296 on arrival trending down S/P cath- essentially normal c/w asa, statin, BB h/o Long QT slightly worse at 558 during admission but has improved to 460 this morning Seems that a combination of electrolyte abnormalities and zofran may have caused this worsening Based on previous psych evals, she has been stable at 450-460 while on all her psych meds Would maintain dosing of psych meds due to significant h/o of "delusions" F/U outpatient in 3-5 days from discharge and repeat EKG Nausea / Vomiting ACS vs gastroenteritis - symptoms resolved X-ray Abdomen, CT abdomen negative for obstruction c/w Promethazine 12.5mg IV PRN for n/v. Avoid Zofran due to QT prolongation Hypokalemia / Hypomagnesemia / Hyponatremia resolving c/w 20 PO meq PO BID Mg normalized COPD stable cxr without acute findings c/w Arformoterol Tartrate (Brovana), 15 MCG NEB BID c/w Budesonide 0.5 MG NEB BID c/w Montelukast Sodium (Singulair), 10 MG PO HS c/w Roflumilast (Daliresp), 500 MCG PO DAILY c/w Theophylline (Rohit-24), 400 MG PO QAM c/w Tiotropium Cadet (Spiriva Handihaler), 1 CAP INH DAILY c/w Pred 20mg daily Depression / Anxiety Change lexapro to 10 mg Continue mirtazapine Continue Seroquel- need to maintain dosing at 200 due to significant h/o delusions continue Clonazepam D/C Hydroxyzine DM2 held Metformin 1,000 MG PO BID c/w Insulin SS History of PE & Ovarian CA c/w Xarelto 20 MG PO QAM Hypothyroid c/w Synthroid 25 MCG PO QAM OA c/w Meloxicam 7.5 MG PO DAILY Iron Deficiency MCG is 76 and Platelets are 502. Supplement with iron 325mg BID DVT Proph: Xarelto as above. Resident Physician Supervision Note: I was present with Dr. Lawrence during the history and exam. I discussed the case with the resident and agree with the findings and plan as documented in the note. Documented By: Joe Ren
[2017-12-11] MEDS: PROMETHAZINE HCL INJ 12.5 MG in SODIUM CHLORIDE 0.9% 50ML 50 ML IV PRN (20:03)
[2017-12-11] MEDS: METOPROLOL TARTRATE 25 MG TAB PO SCH (20:14)
[2017-12-11] MEDS: MONTELUKAST SOD 10 MG TAB PO SCH (20:16)
[2017-12-12] VITALS (15 sets, daily range): BP systolic 91–142; BP diastolic 60–87; PULSE 66–117; TEMP 36.3–36.9; O2SAT 95–99
[2017-12-12] MEDS ORDERED: NURSING VERBAL MED ORDER ONE
[2017-12-12] MEDS: ALBUTEROL 0.083% NEBU SOLN 3 ML VIAL INH PRN ×4 (03:26→22:45)
[2017-12-12] MEDS: POTASSIUM CHLORIDE INJ 40 MEQ in SODIUM CHLORIDE 0.9% 1000ML 1,000 ML IV SCH ×2 (04:00→16:37)
[2017-12-12] MEDS: NITROGLYCERIN 2% OINTMENT 30GM TUBE EXT SCH ×3 (05:23→16:38)
[2017-12-12] MEDS: LEVOTHYROXINE 25 MCG TAB PO SCH (05:25)
[2017-12-12] MEDS: ARFORMOTEROL TART 15MCG/2ML VIAL INH SCH ×2 (07:14→18:50)
[2017-12-12] MEDS: BUDESONIDE 0.5 MG/2 ML VIAL (PULMICORT) INH SCH ×2 (07:14→18:50)
[2017-12-12 07:38] LABS: CALCIUM 8.9 mg/dl (8.5-10.1); CREATININE 0.66 mg/dl (0.60-1.20); POTASSIUM 4.1 mmol/L (3.5-5.1)
--- NOTE | 2017-12-12 07:39 | Family Medicine Progress Note ---
Progress Note Date of Service Dec 12, 2017.
[2017-12-12 07:50] LABS: HEMATOCRIT 27.7 % (37-47); HEMOGLOBIN 8.8 g/dL (12.0-16.0); MEAN CELL VOLUME 80.1 fL (80-100); MEAN CORPUSCULAR HEMOGLOBIN 25.4 pg (25-34); MEAN CORPUSCULAR HGB CONC 31.8 g/dl (32-36); MEAN PLATELET VOLUME 8.3 fL (7.4-10.4); PLATELET COUNT 347 K/uL (130-400); RED CELL DISTRIBUTION WIDTH CV 18.2 % (11.5-14.5); RED CELL DISTRIBUTION WIDTH SD 52.8 fL (36.4-46.3)
[2017-12-12] MEDS: INSULIN ASPART 100 UNITS/ML 3 ML PEN SC SCH ×5 (08:05→21:04)
[2017-12-12] MEDS: FERROUS SULFATE 325 MG TAB PO SCH ×2 (08:09→16:06)
[2017-12-12] MEDS: TIOTROPIUM BROMIDE 5 PUFF/90 MCG INH INH SCH (08:10)
[2017-12-12] MEDS: FLUTICASONE PROPIONATE NA SPR 16 GM BTL NAE SCH (08:10)
[2017-12-12] MEDS: ROFLUMILAST 500 MCG TAB PO SCH (08:11)
[2017-12-12] MEDS: ASPIRIN 81 MG ECTAB PO SCH (08:11)
[2017-12-12] MEDS: ESCITALOPRAM OXALATE 10 MG TAB PO SCH (08:12)
[2017-12-12] MEDS: POTASSIUM CHLORIDE 20 MEQ TABCR PO SCH ×2 (08:12→20:58)
[2017-12-12] MEDS: ATORVASTATIN 40 MG TAB PO SCH (08:12)
[2017-12-12] MEDS: MELOXICAM 7.5 MG TAB PO SCH (08:13)
[2017-12-12] MEDS: CALCIUM CARBONATE 1250MG TAB PO SCH ×3 (08:13→20:58)
[2017-12-12] MEDS: METOPROLOL TARTRATE 25 MG TAB PO SCH ×2 (08:13→20:58)
[2017-12-12] MEDS: QUETIAPINE FUMARATE 200 MG TAB PO SCH (08:13)
[2017-12-12] MEDS: THEOPHYLLINE 400MG CONTROLLED REL TAB PO SCH (08:14)
[2017-12-12] MEDS: RANITIDINE HCL 150 MG TAB PO SCH (08:14)
[2017-12-12] MEDS ORDERED: INSULIN HUMAN NPH SC SCH ×2 (09:00→16:00)
[2017-12-12] MEDS ORDERED: MAGNESIUM SULFATE 1GM / D5W 1 GM in PREMIXED IN D5W 100 ML IV ONE (09:15)
--- NOTE | 2017-12-12 14:13 | Pharmacy Progress Note ---
Pharmacy Glycemic Short Note 2 Date of Service Dec 12, 2017. OUTPATIENT ANTIDIABETIC REGIMEN: * NPH 20 units SQ AM * Metformin 1,000mg PO BIDM * A1c = 8.8% 11/26/17 ASSESSMENT: * 72yo T2DM female with near adequate outpatient control. Goal A1c likely closer to 7.5-8.5% based on age/co-morbidities. * Pt with adequate glycemic control 12/11 but BSGs rising today secondary to prednisone + advanced diet. Will titrate basal insulin back towards outpatient dosing and adjust NovoLog parameters as needed to cover hyperglycemia while metformin on hold for admission. PLAN FOR INPATIENT GLYCEMIC CONTROL: * Hold outpatient oral diabetes medications * Basal insulin: increase dosing * NPH 15 units SQ daily * Bolus insulin: tighten goal range & CHO coverage. * NovoLog per scale ACHS or Q6hrs while NPO * Goal Range: Low 120 mg/dL - High 150 mg/dL * Correction Factor: 30 mg/dL/unit * Nutritional / Prandial insulin per carb ratio of 1 unit per 9 grams CHO consumed
--- NOTE | 2017-12-12 14:17 | Family Medicine Progress Note ---
Progress Note Date of Service Dec 12, 2017. Subjective Pt evaluation today including: conversation w/ patient, physical exam, chart review, lab review Pain: None Voiding: no voiding problems, no incontinence States feeling slightly SOB today, improves with lying forward She denies chest pain, palpitations, lightheadedness, dizziness or leg swelling No changes in SpO2 sats No nursing concerns from overnight Appetite down but improving Patient states she lives alone, refuses to go to any rehab facility Additional Comments: A 10 point review of systems was negative unless stated above. Medications Current Inpatient Medications Medications (Trade) Dose Ordered Sig/Lulú Route Start Time Stop Time Status Last Admin Dose Admin Acetaminophen (Tylenol Tab) 650 mg Q4H PRN PO 12/10/17 03:30 01/09/18 03:29 12/10/17 23:50 650 MG Al Hydrox/Mg Hydrox/Simethicone (Maalox Max Susp) 15 ml Q4H PRN PO 12/10/17 03:30 01/09/18 03:29 Magnesium Hydroxide (Milk Of Magnesia Susp) 30 ml Q12H PRN PO 12/10/17 03:30 01/09/18 03:29 Ondansetron HCl (Zofran Inj) 4 mg Q6H PRN IV 12/10/17 03:30 01/09/18 03:29 Future Hold 12/11/17 05:52 4 MG Nitroglycerin (Nitrostat Tab) 0.4 mg UD PRN SL 12/10/17 03:30 01/09/18 03:29 Nitroglycerin (Nitroglycerin 2% Oint) 1 inch Q6H EXT 12/10/17 05:00 01/09/18 04:59 12/12/17 11:53 1 INCH Morphine Sulfate (MoRPHine SULFATE INJ) 2 mg Q30M PRN IV 12/10/17 03:30 12/24/17 03:29 12/10/17 05:06 2 MG Aspirin (Ecotrin Tab) 81 mg QAM PO 12/10/17 09:00 01/09/18 08:59 Future Hold 12/12/17 08:11 81 MG Polyethylene (Miralax Powder Packet) 17 gm DAILY PRN PO 12/10/17 03:30 01/09/18 03:29 Albuterol Sulfate (Ventolin 0.083% 2.5MG/3ML Neb) 2.5 mg Q4H PRN INH 12/10/17 04:15 01/09/18 04:14 12/12/17 11:07 2.5 MG Arformoterol Tartrate (Brovana 15MCG/ 2ML Neb Soln) 15 mcg BIDR INH 12/10/17 08:00 01/09/18 07:59 12/12/17 07:14 15 MCG Budesonide (Pulmicort Respules 0.5MG/ 2ML Neb Soln) 0.5 mg BIDR INH 12/10/17 08:00 01/09/18 07:59 12/12/17 07:14 0.5 MG Clonazepam (Klonopin Tab) 0.5 mg Q12H PRN PO 12/10/17 04:15 01/09/18 04:14 12/10/17 23:56 0.5 MG Fluticasone Propionate (Flonase Nasal [place]) 2 sprays DAILY NANCY 12/10/17 09:00 01/09/18 08:59 12/12/17 08:10 2 SPRAYS Levothyroxine Sodium (Synthroid Tab) 25 mcg DAILYBB PO 12/10/17 06:00 01/09/18 05:59 12/12/17 05:25 25 MCG Meloxicam (Mobic Tab) 7.5 mg DAILY PO 12/10/17 09:00 01/09/18 08:59 12/12/17 08:13 7.5 MG Metformin HCl (Glucophage Tab) 1,000 mg BID PO 12/10/17 09:00 01/09/18 08:59 Future Hold Montelukast Sodium (Singulair Tab) 10 mg HS PO 12/10/17 21:00 01/09/18 20:59 12/11/17 20:16 10 MG Potassium Chloride (Klor-Con Tab) 20 meq BID PO 12/10/17 09:00 01/09/18 08:59 12/12/17 08:12 20 MEQ Ranitidine HCl (zANTac TAB) 150 mg DAILY PO 12/10/17 09:00 01/09/18 08:59 12/12/17 08:14 150 MG Rivaroxaban (Xarelto Tab) 20 mg QAM PO 12/10/17 09:00 4/28/18 08:59 Future Hold 12/10/17 10:37 20 MG Roflumilast (Daliresp Tab) 500 mcg DAILY PO 12/10/17 09:00 01/09/18 08:59 12/12/17 08:11 500 MCG Tiotropium [place] (Spiriva Handihaler Inhaler) 1 puff DAILY INH 12/10/17 09:00 01/09/18 08:59 12/12/17 08:10 1 PUFF Theophylline (Uniphyl Controlled Rel 24hr Tab) 400 mg QAM PO 12/10/17 09:00 01/09/18 08:59 12/12/17 08:14 400 MG Promethazine HCl 12.5 mg/Sodium Chloride 50.5 ml @ 204 mls/hr Q6H PRN IV 12/10/17 04:15 01/09/18 04:14 12/11/17 20:03 204 MLS/HR Ferrous Sulfate (Feosol Tab) 325 mg BIDM PO 12/10/17 07:30 01/09/18 07:59 12/12/17 08:09 325 MG Prednisone (PredniSONE TAB) 20 mg DAILY PO 12/10/17 09:00 01/09/18 08:59 12/12/17 08:13 20 MG Glucose (Glucose 40% Gel) 15-30 GRAMS 15 GRAMS... UD PRN PO 12/10/17 06:15 01/09/18 06:14 Glucose (Glucose Chew Tab) 4-8 Tablets 4 Tabl... UD PRN PO 12/10/17 06:15 01/09/18 06:14 Dextrose (Dextrose 50% 50ML Syringe) 25-50ML OF 50% DW IV FOR... UD PRN IV 12/10/17 06:15 01/09/18 06:14 Glucagon (Glucagon Inj) 1 mg UD PRN SQ 12/10/17 06:15 01/09/18 06:14 Atorvastatin Calcium (Lipitor Tab) 80 mg QAM PO 12/11/17 09:00 01/10/18 08:59 12/12/17 08:12 80 MG Potassium Chloride 40 meq/ Sodium Chloride 1,020 ml @ 80 mls/hr [id number] IV 12/10/17 21:00 01/09/18 20:59 12/12/17 04:00 80 MLS/HR Calcium Carbonate (oS-Jean [place] 500 TAB) 1,250 mg TID PO 12/10/17 21:00 01/09/18 20:59 12/12/17 08:13 1,250 MG Miscellaneous Information (Consult Glycemic Management Pharmacy) 1 ea UD PRN N/A 12/10/17 21:48 01/09/18 21:47 Metoprolol Tartrate (Lopressor Tab) 25 mg BID PO 12/11/17 21:00 01/09/18 20:59 12/12/17 08:13 25 MG Insulin Human NPH (novoLIN-N NPH) SEE PROTOCOL TEXT QAM SC 12/12/17 09:00 01/11/18 08:59 12/12/17 08:06 10 UNITS Menthol (Nice Kena) 1 kena PRN PRN KENA 12/11/17 16:45 01/10/18 16:44 12/11/17 17:11 1 KENA Quetiapine Fumarate (seroQUEL TAB) 200 mg DAILY PO 12/12/17 09:00 01/11/18 08:59 12/12/17 08:13 200 MG Escitalopram Oxalate (Lexapro Tab) 10 mg DAILY PO 12/12/17 09:00 01/09/18 08:59 12/12/17 08:12 10 MG Insulin Aspart (novoLOG ASPART) SLIDING SCALE ACHS SC 12/12/17 07:00 01/11/18 06:59 12/12/17 12:18 9 UNITS Objective Vital Signs Date Time Temp Pulse Resp B/P (MAP) Pulse Ox O2 Delivery O2 Flow Rate FiO2 12/12/17 12:00 Nasal Cannula 2.0 12/12/17 11:51 36.7 69 20 91/65 (74) 98 12/12/17 11:07 72 18 97 Nasal Cannula 2.0 12/12/17 08:00 Nasal Cannula 2.0 12/12/17 07:50 36.7 66 20 100/60 (73) 95 12/12/17 07:26 74 18 98 Nasal Cannula 2.0 12/12/17 05:16 68 100/61 (74) 12/12/17 04:00 97 Nasal Cannula 2.0 12/12/17 03:29 36.9 72 18 115/67 (83) 97 2.0 12/12/17 03:27 72 18 97 Nasal Cannula 2.0 12/12/17 00:00 99 Nasal Cannula 2.0 12/11/17 23:49 37.2 77 16 100/63 (75) 99 12/11/17 23:45 78 18 98 Nasal Cannula 2.0 12/11/17 20:00 Nasal Cannula 2.0 12/11/17 19:58 69 18 94 Nasal Cannula 2.0 12/11/17 18:45 36.6 84 18 124/73 (90) 96 Room Air 12/11/17 18:00 36.4 80 20 107/67 (80) 98 Nasal Cannula 2.0 12/11/17 17:50 74 18 98 Nasal Cannula 2.0 12/11/17 16:35 36.7 65 20 127/74 (91) 96 Nasal Cannula 2.0 12/11/17 16:15 36.9 62 20 127/74 (91) 96 Nasal Cannula 2.0 12/11/17 16:00 36.8 76 18 134/77 (96) 96 Nasal Cannula 2.0 98 12/11/17 16:00 Nasal Cannula 2.0 12/11/17 15:45 37.1 64 18 131/66 (87) 94 Nasal Cannula 2.0 98 12/11/17 15:30 37.3 65 18 119/70 (86) 96 Nasal Cannula 2.0 12/11/17 15:20 66 16 128/80 (96) 95 Nasal Cannula 2 12/11/17 15:05 69 16 120/87 (98) 99 Mask 4 Physical Exam General Appearance: WD/WN, no apparent distress, + obese Eyes: normal inspection, EOMI ENT: hearing grossly normal, pharynx normal Neck: supple, no adenopathy, no JVD Respiratory/Chest: + pertinent finding (diminished breath sounds bilaterally; no wheezing or crackles) Assessment and Plan 71 yo F with COPD , diastolic CHF presenting with N/V admitted with NSTEMI with ST depression. NSTEMI - Clean cath; likely supply demand from Nausea and vomiting - No recurrence of chest pain today - Troponin trended down; will D/C checks unless patient has chest pain - Continue home meds: ASA, Statin and Metoprolol Long QT - Was as high as 558; multiple QT prolonging medications but QTc has essentially been normal - Repeat QTc today is 412 - Med review done yesterday: Lexapro dose decreased; anti-psychotics maintained to prevent delusion - EKG can be repeat at outpatient follow up when patient ready to be discharged Anemia - Hb 8.6; trending down over 48 hours - Hemoccult negative - Continue Iron supplementation - Will order reticulocyte count, peripheral smear and check bilirubin for evidence of hemolysis - Threshold to transfuse if < 8; repeat in the AM as long as clinically stable Nausea / Vomiting - Resolved, likely self-limited gastro-enteritis - Promethazine PRN - Avoid Zofran due to QT prolongation Hypomagnesemia - 1.6 today; 1 g IV Mg Sulfate given today COPD cxr without acute findings c/w Arformoterol Tartrate (Brovana), 15 MCG NEB BID c/w Budesonide 0.5 MG NEB BID c/w Montelukast Sodium (Singulair), 10 MG PO HS c/w Roflumilast (Daliresp), 500 MCG PO DAILY c/w Theophylline (Rohit-24), 400 MG PO QAM c/w Tiotropium [place] (Spiriva Handihaler), 1 CAP INH DAILY c/w Pred 20mg daily Depression / Anxiety - Change Lexapro: dose decreased to 10 mg daily - Continue mirtazapine - Continue Seroquel- need to maintain dosing at 200 due to significant h/o delusions - continue Clonazepam - D/C Hydroxyzine DM2 - Insulin SSI History of PE & Ovarian CA - Xarelto daily Hypothyroid - Synthroid OA - Meloxicam DVT Prophylaxis - SCD Knee, GABI Hose - Xarelto Code Status - Level I Full Code Disposition - Telemetry - OT and PT evaluations Resident Physician Supervision Note: I was present with Dr. Ibanez during the history and exam. I discussed the case with the resident and agree with the findings and plan as documented in the note. Any exceptions or clarifications are listed here: She does not feel as well today as she did yesterday. Slight drop in HgB although I am not sure if this represents dilutional component versus true blood loss. She feels more dyspnea today, although upon exam she does not have wheezing. Agree with plan as noted above. Since she leaves alone, may need to consider home health versus inpatient rehabilitation. Documented By: Joe Ren
[2017-12-12 14:47] LABS: RETIC COUNT % 2.6 % (0.5-2.0)
[2017-12-12 14:58] LABS: ALBUMIN 2.5 gm/dl (3.4-5.0); TOTAL PROTEIN 5.5 gm/dl (6.4-8.2)
[2017-12-12] MEDS: MONTELUKAST SOD 10 MG TAB PO SCH (20:58)
[2017-12-13] VITALS (13 sets, daily range): BP systolic 96–133; BP diastolic 53–86; PULSE 68–116; TEMP 36.5–36.8; O2SAT 90–100
[2017-12-13] MEDS: NITROGLYCERIN 2% OINTMENT 30GM TUBE EXT SCH ×5 (00:09→23:24)
[2017-12-13] MEDS: ALBUTEROL 0.083% NEBU SOLN 3 ML VIAL INH PRN ×5 (01:51→19:27)
[2017-12-13] MEDS: POTASSIUM CHLORIDE INJ 40 MEQ in SODIUM CHLORIDE 0.9% 1000ML 1,000 ML IV SCH (05:19)
[2017-12-13] MEDS: LEVOTHYROXINE 25 MCG TAB PO SCH (05:20)
--- NOTE | 2017-12-13 06:46 | Family Medicine Progress Note ---
Progress Note Date of Service Dec 13, 2017. Subjective Pt evaluation today including: conversation w/ patient, physical exam, chart review, lab review Pain: None Voiding: no voiding problems, no incontinence No overnight issues There are concerns from nursing of limited ambulatory status by patient and that she lives alone Eating and drinking well States that her breathing is at baseline currently Wants to go home if she is ready to be discharged. Additional Comments: A 10 point review of systems was negative unless stated above. Medications Current Inpatient Medications Medications (Trade) Dose Ordered Sig/Lulú Route Start Time Stop Time Status Last Admin Dose Admin Acetaminophen (Tylenol Tab) 650 mg Q4H PRN PO 12/10/17 03:30 01/09/18 03:29 12/10/17 23:50 650 MG Al Hydrox/Mg Hydrox/Simethicone (Maalox Max Susp) 15 ml Q4H PRN PO 12/10/17 03:30 01/09/18 03:29 Magnesium Hydroxide (Milk Of Magnesia Susp) 30 ml Q12H PRN PO 12/10/17 03:30 01/09/18 03:29 Ondansetron HCl (Zofran Inj) 4 mg Q6H PRN IV 12/10/17 03:30 01/09/18 03:29 Future Hold 12/11/17 05:52 4 MG Nitroglycerin (Nitrostat Tab) 0.4 mg UD PRN SL 12/10/17 03:30 01/09/18 03:29 Nitroglycerin (Nitroglycerin 2% Oint) 1 inch Q6H EXT 12/10/17 05:00 01/09/18 04:59 12/13/17 05:22 1 INCH Morphine Sulfate (MoRPHine SULFATE INJ) 2 mg Q30M PRN IV 12/10/17 03:30 12/24/17 03:29 12/10/17 05:06 2 MG Aspirin (Ecotrin Tab) 81 mg QAM PO 12/10/17 09:00 01/09/18 08:59 Future Hold 12/12/17 08:11 81 MG Polyethylene (Miralax Powder Packet) 17 gm DAILY PRN PO 12/10/17 03:30 01/09/18 03:29 Albuterol Sulfate (Ventolin 0.083% 2.5MG/3ML Neb) 2.5 mg Q4H PRN INH 12/10/17 04:15 4/28/18 04:14 12/13/17 11:22 2.5 MG Arformoterol Tartrate (Brovana 15MCG/ 2ML Neb Soln) 15 mcg BIDR INH 12/10/17 08:00 01/09/18 07:59 12/13/17 06:50 15 MCG Budesonide (Pulmicort Respules 0.5MG/ 2ML Neb Soln) 0.5 mg BIDR INH 12/10/17 08:00 01/09/18 07:59 12/13/17 06:50 0.5 MG Clonazepam (Klonopin Tab) 0.5 mg Q12H PRN PO 12/10/17 04:15 01/09/18 04:14 12/10/17 23:56 0.5 MG Fluticasone Propionate (Flonase Nasal [place]) 2 sprays DAILY NANCY 12/10/17 09:00 01/09/18 08:59 12/13/17 07:56 2 SPRAYS Levothyroxine Sodium (Synthroid Tab) 25 mcg DAILYBB PO 12/10/17 06:00 01/09/18 05:59 12/13/17 05:20 25 MCG Meloxicam (Mobic Tab) 7.5 mg DAILY PO 12/10/17 09:00 01/09/18 08:59 12/13/17 07:56 7.5 MG Metformin HCl (Glucophage Tab) 1,000 mg BID PO 12/10/17 09:00 01/09/18 08:59 Future Hold Montelukast Sodium (Singulair Tab) 10 mg HS PO 12/10/17 21:00 01/09/18 20:59 12/12/17 20:58 10 MG Potassium Chloride (Klor-Con Tab) 20 meq BID PO 12/10/17 09:00 01/09/18 08:59 12/12/17 20:58 20 MEQ Ranitidine HCl (zANTac TAB) 150 mg DAILY PO 12/10/17 09:00 01/09/18 08:59 12/13/17 07:57 150 MG Rivaroxaban (Xarelto Tab) 20 mg QAM PO 12/10/17 09:00 01/09/18 08:59 Future Hold 12/10/17 10:37 20 MG Roflumilast (Daliresp Tab) 500 mcg DAILY PO 12/10/17 09:00 01/09/18 08:59 12/13/17 07:56 500 MCG Tiotropium [place] (Spiriva Handihaler Inhaler) 1 puff DAILY INH 12/10/17 09:00 01/09/18 08:59 12/13/17 07:57 1 PUFF Theophylline (Uniphyl Controlled Rel 24hr Tab) 400 mg QAM PO 12/10/17 09:00 01/09/18 08:59 12/13/17 07:55 400 MG Promethazine HCl 12.5 mg/Sodium Chloride 50.5 ml @ 204 mls/hr Q6H PRN IV 12/10/17 04:15 01/09/18 04:14 12/11/17 20:03 204 MLS/HR Ferrous Sulfate (Feosol Tab) 325 mg BIDM PO 12/10/17 07:30 01/09/18 07:59 12/13/17 07:58 325 MG Prednisone (PredniSONE TAB) 20 mg DAILY PO 12/10/17 09:00 01/09/18 08:59 12/13/17 07:58 20 MG Glucose (Glucose 40% Gel) 15-30 GRAMS 15 GRAMS... UD PRN PO 12/10/17 06:15 01/09/18 06:14 Glucose (Glucose Chew Tab) 4-8 Tablets 4 Tabl... UD PRN PO 12/10/17 06:15 01/09/18 06:14 Dextrose (Dextrose 50% 50ML Syringe) 25-50ML OF 50% DW IV FOR... UD PRN IV 12/10/17 06:15 01/09/18 06:14 Glucagon (Glucagon Inj) 1 mg UD PRN SQ 12/10/17 06:15 01/09/18 06:14 Atorvastatin Calcium (Lipitor Tab) 80 mg QAM PO 12/11/17 09:00 01/10/18 08:59 12/13/17 07:56 80 MG Calcium Carbonate (oS-[place] 500 TAB) 1,250 mg TID PO 12/10/17 21:00 01/09/18 20:59 12/13/17 07:55 1,250 MG Miscellaneous Information (Consult Glycemic Management Pharmacy) 1 ea UD PRN N/A 12/10/17 21:48 01/09/18 21:47 Metoprolol Tartrate (Lopressor Tab) 25 mg BID PO 12/11/17 21:00 01/09/18 20:59 12/13/17 07:58 25 MG Menthol (Nice Kena) 1 kena PRN PRN KENA 12/11/17 16:45 01/10/18 16:44 12/11/17 17:11 1 KENA Quetiapine Fumarate (seroQUEL TAB) 200 mg DAILY PO 12/12/17 09:00 01/11/18 08:59 12/13/17 07:56 200 MG Escitalopram Oxalate (Lexapro Tab) 10 mg DAILY PO 12/12/17 09:00 01/09/18 08:59 12/13/17 07:56 10 MG Insulin Aspart (novoLOG ASPART) SLIDING SCALE ACHS CT 12/12/17 07:00 01/11/18 06:59 12/13/17 11:48 4 UNITS Insulin Human NPH (novoLIN-N NPH) 15 units QDB SC 12/13/17 07:30 01/12/18 07:29 12/13/17 07:55 15 UNITS Objective Vital Signs Date Time Temp Pulse Resp B/P (MAP) Pulse Ox O2 Delivery O2 Flow Rate FiO2 12/13/17 12:00 Nasal Cannula 3.0 12/13/17 11:41 36.6 68 20 96/56 (69) 93 Nasal Cannula 12/13/17 09:09 99 12/13/17 08:00 Nasal Cannula 3.0 12/13/17 07:46 36.7 101 20 133/86 (102) 97 Nasal Cannula 3.0 12/13/17 07:17 94 20 100 Nasal Cannula 2.0 12/13/17 05:36 75 20 99 Nasal Cannula 2.0 12/13/17 04:00 Nasal Cannula 3.0 12/13/17 03:55 36.8 73 19 119/53 (75) 98 Nasal Cannula 2.0 12/13/17 01:51 76 20 96 Nasal Cannula 2.0 12/12/17 23:59 Nasal Cannula 3.0 12/12/17 23:30 36.8 92 24 102/67 (79) 97 Nasal Cannula 2.5 12/12/17 22:46 103 24 98 Nasal Cannula 2.0 12/12/17 20:24 36.3 117 20 142/87 (105) 96 Nasal Cannula 3.0 12/12/17 20:00 Nasal Cannula 3.0 12/12/17 18:49 105 18 98 Nasal Cannula 2.0 12/12/17 16:00 Nasal Cannula 2.0 12/12/17 15:29 36.6 80 18 116/69 (85) 99 Nasal Cannula 2.0 12/12/17 14:48 77 18 98 Nasal Cannula 2.0 Physical Exam General Appearance: WD/WN, no apparent distress Eyes: normal inspection, EOMI ENT: hearing grossly normal, pharynx normal Neck: supple, no adenopathy, no JVD Respiratory/Chest: lungs clear, no respiratory distress Cardiovascular: regular rate, rhythm, no gallop, no murmur Abdomen: normal bowel sounds, non tender, soft Extremities: non-tender, no pedal edema Neurologic/Psychiatric: alert, normal mood/affect, oriented x 3 Skin: normal color, warm/dry, no rash Lymphatic: no adenopathy Laboratory Results Last 24 Hours Test 12/12/17 14:21 12/12/17 15:17 12/12/17 16:04 12/12/17 20:22 Absolute Reticulocyte Count 0.09 10^6/uL Percent Reticulocyte Count 2.6 % Total Bilirubin 0.3 mg/dl Direct Bilirubin mg/dl 0.1 mg/dl Aspartate Amino Transf (AST/SGOT) U/L 30 U/L Alanine Aminotransferase (ALT/SGPT) 50 U/L Alkaline Phosphatase 114 U/L Total Protein 5.5 gm/dl Albumin 2.5 gm/dl Bedside Glucose 161 mg/dl 186 mg/dl Test 12/13/17 05:31 12/13/17 05:42 12/13/17 06:40 12/13/17 11:08 Sodium Level 137 mmol/L Potassium Level 4.8 mmol/L Chloride Level 106 mmol/L Carbon Dioxide Level 26 mmol/L Anion Gap 5.0 mmol/L Blood Urea Nitrogen 12 mg/dl Creatinine 0.63 mg/dl Est Creatinine Clear Calc Drug Dose 81.8 ml/min Estimated GFR () 103.1 Estimated GFR (Non- 89.0 BUN/Creatinine Ratio 19.7 Random Glucose 84 mg/dl Calcium Level 9.2 mg/dl White Blood Count 11.66 K/uL Red Blood Count 3.46 M/uL Hemoglobin 8.7 g/dL Hematocrit 27.7 % Mean Corpuscular Volume 80.1 fL Mean Corpuscular Hemoglobin 25.1 pg Mean Corpuscular Hemoglobin Concent 31.4 g/dl RDW Standard Deviation 53.7 fL RDW Coefficient of Variation 18.6 % Platelet Count 328 K/uL Mean Platelet Volume 8.3 fL Bedside Glucose 87 mg/dl 136 mg/dl Assessment and Plan 71 yo F with COPD , diastolic CHF presenting with nausea and vomiting and sustaining supply/demand NSTEMI. Our plan is as follows: NSTEMI - Clean cath; likely supply demand from Nausea and vomiting - Remains chest pain free; have discontinued troponin monitoring - Medical management only: ASA, Statin and Metoprolol Long QT - > 500 on admission; last QTc 412 yesterday - Lexapro dose decreased; anti-psychotics maintained to prevent delusion - EKG can be repeat at outpatient follow up when patient ready to be discharged Anemia - Hb 8.6; trending down over 48 hours; remains stable today at 8.7 - Hemoccult negative no evidence of bleeding - Has reactive reticulocytes suggesting appropriate response - Would hold off on transfusing at this time - Threshold to transfuse if < 8 Nausea / Vomiting - Resolved, likely self-limited gastro-enteritis - Promethazine PRN Hypomagnesemia - Re-check in AM COPD cxr without acute findings c/w Arformoterol Tartrate (Brovana), 15 MCG NEB BID c/w Budesonide 0.5 MG NEB BID c/w Montelukast Sodium (Singulair), 10 MG PO HS c/w Roflumilast (Daliresp), 500 MCG PO DAILY c/w Theophylline (Rohit-24), 400 MG PO QAM c/w Tiotropium [place] (Spiriva Handihaler), 1 CAP INH DAILY c/w Pred 20mg daily Depression / Anxiety - Change Lexapro: dose decreased to 10 mg daily - Continue mirtazapine - Continue Seroquel- need to maintain dosing at 200 due to significant h/o delusions - continue Clonazepam - D/C Hydroxyzine Type 2 Diabetes Mellitus - Insulin SSI History of PE & Ovarian CA - Continue Xarelto Hypothyroid - Synthroid OA - Meloxicam DVT Prophylaxis - SCD Knee, GABI Hose - Rubyto Code Status - Level I Full Code Disposition - Transfer to med/surg - Had extensive conversation; has very limited activity during PT; would strongly recommend she go to rehab or nursing home to help with her strength and ambulation. She lives alone, has people coming to the house, but nursing reports she can ambulate no more than 5 ft without being dyspneic. Patient amenable to acute rehab with goal of going home eventually - OT and PT evaluations Resident Physician Supervision Note: I was present with Dr. Ibanez during the history and exam. I discussed the case with the resident and agree with the findings and plan as documented in the note. Any exceptions or clarifications are listed here: After a discussion with the patient today, she is agreeable to inpatient rehabilitation, with ultimate disposition being to return to her apartment in [place]. PRIMARY IMPRESSIONS 1) Nausea and vomiting, resolved. 2) S/P cardiac cath, without obstructive CAD. 3) Steroid dependent obstructive lung disease 4) Anemia, likely contributing to weakness and increased dyspnea 5) Deconditioning/debility, multifactorial PLAN 1) Discuss with SS regarding inpatient rehabilitation placement 2) Monitor HgB 3) Monitor QT length in light of medications and history of prolonged QT 4) Continue current respiratory regimen. Documented By: Joe Ren Continued [facility] stay due to: home environment unsafe for pt Discharge planning: uncertain
[2017-12-13] MEDS: BUDESONIDE 0.5 MG/2 ML VIAL (PULMICORT) INH SCH ×2 (06:50→18:22)
[2017-12-13] MEDS: ARFORMOTEROL TART 15MCG/2ML VIAL INH SCH ×2 (06:50→18:22)
[2017-12-13 06:53] LABS: CALCIUM 9.2 mg/dl (8.5-10.1); CREATININE 0.63 mg/dl (0.60-1.20); POTASSIUM 4.8 mmol/L (3.5-5.1)
[2017-12-13 07:00] LABS: HEMATOCRIT 27.7 % (37-47); HEMOGLOBIN 8.7 g/dL (12.0-16.0); MEAN CELL VOLUME 80.1 fL (80-100); MEAN CORPUSCULAR HEMOGLOBIN 25.1 pg (25-34); MEAN CORPUSCULAR HGB CONC 31.4 g/dl (32-36); MEAN PLATELET VOLUME 8.3 fL (7.4-10.4); PLATELET COUNT 328 K/uL (130-400); RED CELL DISTRIBUTION WIDTH CV 18.6 % (11.5-14.5); RED CELL DISTRIBUTION WIDTH SD 53.7 fL (36.4-46.3); WHITE BLOOD COUNT 11.66 K/uL (4.8-10.8)
[2017-12-13] MEDS ORDERED: INSULIN HUMAN NPH SC SCH (07:30)
[2017-12-13] MEDS: INSULIN ASPART 100 UNITS/ML 3 ML PEN SC SCH ×4 (07:54→20:13)
[2017-12-13] MEDS: CALCIUM CARBONATE 1250MG TAB PO SCH ×3 (07:55→20:16)
[2017-12-13] MEDS: THEOPHYLLINE 400MG CONTROLLED REL TAB PO SCH (07:55)
[2017-12-13] MEDS: ESCITALOPRAM OXALATE 10 MG TAB PO SCH (07:56)
[2017-12-13] MEDS: ROFLUMILAST 500 MCG TAB PO SCH (07:56)
[2017-12-13] MEDS: QUETIAPINE FUMARATE 200 MG TAB PO SCH (07:56)
[2017-12-13] MEDS: FLUTICASONE PROPIONATE NA SPR 16 GM BTL NAE SCH (07:56)
[2017-12-13] MEDS: MELOXICAM 7.5 MG TAB PO SCH (07:56)
[2017-12-13] MEDS: ATORVASTATIN 40 MG TAB PO SCH (07:56)
[2017-12-13] MEDS: TIOTROPIUM BROMIDE 5 PUFF/90 MCG INH INH SCH (07:57)
[2017-12-13] MEDS: RANITIDINE HCL 150 MG TAB PO SCH (07:57)
[2017-12-13] MEDS: METOPROLOL TARTRATE 25 MG TAB PO SCH ×2 (07:58→20:16)
[2017-12-13] MEDS: FERROUS SULFATE 325 MG TAB PO SCH ×2 (07:58→17:19)
[2017-12-13] MEDS: POTASSIUM CHLORIDE 20 MEQ TABCR PO SCH ×2 (08:39→20:16)
--- NOTE | 2017-12-13 11:20 | Pharmacy Progress Note ---
Glycemic: Assessment & Plan Date of Service Dec 13, 2017. Assessment & Plan The patient is currently receiving 32 units of insulin per day. BSGs ranging 87 - 317 mg/dl over the past 24hrs. * Basal insulin: NPH 15 units every 24 hours given with breakfast * Correctional Insulin: Novolog Correction per scale ACHS Goal Range: Low 120 mg/dL - High 150 mg/dL Correction Factor: 30 mg/dL/unit * Prandial insulin: Per carb ratio of 1 unit per 9 grams CHO consumed BSGs continue to improve, no changes needed to inpatient regimen at this time. Pharmacy will continue to monitor patient daily and write orders per [facility] inpatient glycemic control protocol. Thanks. * Please note that the plan above was derived based on current level of insulin resistance and hospital stress. These recommendations are appropriate for inpatient admission only. Plan of care upon discharge will need to be reassessed to avoid potential outpatient hypo/hyperglycemia.
[2017-12-13] MEDS ORDERED: NURSING VERBAL MED ORDER ONE (13:45)
[2017-12-13] MEDS: MONTELUKAST SOD 10 MG TAB PO SCH (20:16)
[2017-12-13] MEDS: CLONAZEPAM 0.5 MG TAB PO PRN (22:05)
[2017-12-13] MEDS: ALBUT/IPRATROP 3MG/0.5MG NEB 3 ML VIAL INH PRN (22:56)
[2017-12-14] VITALS (8 sets, daily range): BP systolic 109–145; BP diastolic 69–77; PULSE 64–80; TEMP 36.5–36.8; O2SAT 97–99
[2017-12-14] MEDS: ALBUT/IPRATROP 3MG/0.5MG NEB 3 ML VIAL INH PRN (03:09)
[2017-12-14] MEDS: NITROGLYCERIN 2% OINTMENT 30GM TUBE EXT SCH ×2 (05:07→12:01)
[2017-12-14] MEDS: LEVOTHYROXINE 25 MCG TAB PO SCH (05:51)
[2017-12-14] MEDS: ARFORMOTEROL TART 15MCG/2ML VIAL INH SCH (07:09)
[2017-12-14] MEDS: BUDESONIDE 0.5 MG/2 ML VIAL (PULMICORT) INH SCH (07:09)
[2017-12-14 07:33] LABS: HEMATOCRIT 30.1 % (37-47); HEMOGLOBIN 9.4 g/dL (12.0-16.0); MEAN CELL VOLUME 80.5 fL (80-100); MEAN CORPUSCULAR HEMOGLOBIN 25.1 pg (25-34); MEAN CORPUSCULAR HGB CONC 31.2 g/dl (32-36); MEAN PLATELET VOLUME 8.5 fL (7.4-10.4); NUCLEATED RED BLOOD CELL ABS 0.04 K/uL (0-0); PLATELET COUNT 298 K/uL (130-400); RED CELL DISTRIBUTION WIDTH CV 19.2 % (11.5-14.5); RED CELL DISTRIBUTION WIDTH SD 55.8 fL (36.4-46.3); WHITE BLOOD COUNT 10.32 K/uL (4.8-10.8)
[2017-12-14 07:48] LABS: ALBUMIN 2.5 gm/dl (3.4-5.0); CALCIUM 8.9 mg/dl (8.5-10.1); CREATININE 0.65 mg/dl (0.60-1.20); POTASSIUM 3.9 mmol/L (3.5-5.1)
[2017-12-14 07:50] LABS: TOTAL PROTEIN 5.4 gm/dl (6.4-8.2)
[2017-12-14] MEDS: FERROUS SULFATE 325 MG TAB PO SCH (08:19)
[2017-12-14] MEDS: TIOTROPIUM BROMIDE 5 PUFF/90 MCG INH INH SCH (08:20)
[2017-12-14] MEDS: FLUTICASONE PROPIONATE NA SPR 16 GM BTL NAE SCH (08:20)
[2017-12-14] MEDS: CALCIUM CARBONATE 1250MG TAB PO SCH ×2 (08:20→13:54)
[2017-12-14] MEDS: MELOXICAM 7.5 MG TAB PO SCH (08:20)
[2017-12-14] MEDS: ATORVASTATIN 40 MG TAB PO SCH (08:20)
[2017-12-14] MEDS: THEOPHYLLINE 400MG CONTROLLED REL TAB PO SCH (08:20)
[2017-12-14] MEDS: QUETIAPINE FUMARATE 200 MG TAB PO SCH (08:20)
[2017-12-14] MEDS: ESCITALOPRAM OXALATE 10 MG TAB PO SCH (08:20)
[2017-12-14] MEDS: METOPROLOL TARTRATE 25 MG TAB PO SCH (08:20)
[2017-12-14] MEDS: ROFLUMILAST 500 MCG TAB PO SCH (08:20)
[2017-12-14] MEDS: POTASSIUM CHLORIDE 20 MEQ TABCR PO SCH (08:20)
--- NOTE | 2017-12-14 08:20 | Family Medicine Progress Note ---
Progress Note Date of Service Dec 14, 2017. Medications Current Inpatient Medications Medications (Trade) Dose Ordered Sig/Lulú Route Start Time Stop Time Status Last Admin Dose Admin Acetaminophen (Tylenol Tab) 650 mg Q4H PRN PO 12/10/17 03:30 01/09/18 03:29 12/10/17 23:50 650 MG Al Hydrox/Mg Hydrox/Simethicone (Maalox Max Susp) 15 ml Q4H PRN PO 12/10/17 03:30 01/09/18 03:29 Magnesium Hydroxide (Milk Of Magnesia Susp) 30 ml Q12H PRN PO 12/10/17 03:30 01/09/18 03:29 Ondansetron HCl (Zofran Inj) 4 mg Q6H PRN IV 12/10/17 03:30 01/09/18 03:29 Future Hold 12/11/17 05:52 4 MG Nitroglycerin (Nitrostat Tab) 0.4 mg UD PRN SL 12/10/17 03:30 01/09/18 03:29 Nitroglycerin (Nitroglycerin 2% Oint) 1 inch Q6H EXT 12/10/17 05:00 01/09/18 04:59 12/14/17 05:07 1 INCH Morphine Sulfate (MoRPHine SULFATE INJ) 2 mg Q30M PRN IV 12/10/17 03:30 12/24/17 03:29 12/10/17 05:06 2 MG Aspirin (Ecotrin Tab) 81 mg QAM PO 12/10/17 09:00 01/09/18 08:59 Future Hold 12/12/17 08:11 81 MG Polyethylene (Miralax Powder Packet) 17 gm DAILY PRN PO 12/10/17 03:30 01/09/18 03:29 Albuterol Sulfate (Ventolin 0.083% 2.5MG/3ML Neb) 2.5 mg Q4H PRN INH 12/10/17 04:15 01/09/18 04:14 12/13/17 19:27 2.5 MG Arformoterol Tartrate (Brovana 15MCG/ 2ML Neb Soln) 15 mcg BIDR INH 12/10/17 08:00 01/09/18 07:59 12/14/17 07:09 15 MCG Budesonide (Pulmicort Respules 0.5MG/ 2ML Neb Soln) 0.5 mg BIDR INH 12/10/17 08:00 01/09/18 07:59 12/14/17 07:09 0.5 MG Clonazepam (Klonopin Tab) 0.5 mg Q12H PRN PO 12/10/17 04:15 01/09/18 04:14 12/13/17 22:05 0.5 MG Fluticasone Propionate (Flonase Nasal Bivalve) 2 sprays DAILY NANCY 12/10/17 09:00 01/09/18 08:59 12/13/17 07:56 2 SPRAYS Levothyroxine Sodium (Synthroid Tab) 25 mcg DAILYBB PO 12/10/17 06:00 01/09/18 05:59 12/14/17 05:51 25 MCG Meloxicam (Mobic Tab) 7.5 mg DAILY PO 12/10/17 09:00 01/09/18 08:59 12/13/17 07:56 7.5 MG Metformin HCl (Glucophage Tab) 1,000 mg BID PO 12/10/17 09:00 01/09/18 08:59 Future Hold Montelukast Sodium (Singulair Tab) 10 mg HS PO 12/10/17 21:00 01/09/18 20:59 12/13/17 20:16 10 MG Potassium Chloride (Klor-Con Tab) 20 meq BID PO 12/10/17 09:00 01/09/18 08:59 12/13/17 20:16 20 MEQ Ranitidine HCl (zANTac TAB) 150 mg DAILY PO 12/10/17 09:00 01/09/18 08:59 12/13/17 07:57 150 MG Rivaroxaban (Xarelto Tab) 20 mg QAM PO 12/10/17 09:00 01/09/18 08:59 Future Hold 12/10/17 10:37 20 MG Roflumilast (Daliresp Tab) 500 mcg DAILY PO 12/10/17 09:00 01/09/18 08:59 12/13/17 07:56 500 MCG Tiotropium [place] (Spiriva Handihaler Inhaler) 1 puff DAILY INH 12/10/17 09:00 01/09/18 08:59 12/13/17 07:57 1 PUFF Theophylline (Uniphyl Controlled Rel 24hr Tab) 400 mg QAM PO 12/10/17 09:00 01/09/18 08:59 12/13/17 07:55 400 MG Promethazine HCl 12.5 mg/Sodium Chloride 50.5 ml @ 204 mls/hr Q6H PRN IV 12/10/17 04:15 01/09/18 04:14 12/11/17 20:03 204 MLS/HR Ferrous Sulfate (Feosol Tab) 325 mg BIDM PO 12/10/17 07:30 01/09/18 07:59 12/13/17 17:19 325 MG Prednisone (PredniSONE TAB) 20 mg DAILY PO 12/10/17 09:00 01/09/18 08:59 12/13/17 07:58 20 MG Glucose (Glucose 40% Gel) 15-30 GRAMS 15 GRAMS... UD PRN PO 12/10/17 06:15 01/09/18 06:14 Glucose (Glucose Chew Tab) 4-8 Tablets 4 Tabl... UD PRN PO 12/10/17 06:15 01/09/18 06:14 Dextrose (Dextrose 50% 50ML Syringe) 25-50ML OF 50% DW IV FOR... UD PRN IV 12/10/17 06:15 01/09/18 06:14 Glucagon (Glucagon Inj) 1 mg UD PRN SQ 12/10/17 06:15 01/09/18 06:14 Atorvastatin Calcium (Lipitor Tab) 80 mg QAM PO 12/11/17 09:00 01/10/18 08:59 12/13/17 07:56 80 MG Calcium Carbonate (oS-[place] 500 TAB) 1,250 mg TID PO 12/10/17 21:00 01/09/18 20:59 12/13/17 20:16 1,250 MG Miscellaneous Information (Consult Glycemic Management Pharmacy) 1 ea UD PRN N/A 12/10/17 21:48 01/09/18 21:47 Metoprolol Tartrate (Lopressor Tab) 25 mg BID PO 12/11/17 21:00 01/09/18 20:59 12/13/17 20:16 25 MG Menthol (Nice Kena) 1 kena PRN PRN KENA 12/11/17 16:45 01/10/18 16:44 12/11/17 17:11 1 KENA Quetiapine Fumarate (seroQUEL TAB) 200 mg DAILY PO 12/12/17 09:00 01/11/18 08:59 12/13/17 07:56 200 MG Escitalopram Oxalate (Lexapro Tab) 10 mg DAILY PO 12/12/17 09:00 01/09/18 08:59 12/13/17 07:56 10 MG Insulin Aspart (novoLOG ASPART) SLIDING SCALE ACHS SC 12/12/17 07:00 01/11/18 06:59 12/13/17 20:13 8 UNITS Albuterol/ Ipratropium (Duoneb) 3 ml Q4H PRN INH 12/13/17 18:15 01/12/18 18:14 12/14/17 03:09 3 ML Insulin Human NPH (novoLIN-N NPH) 15 units QDL SC 12/14/17 12:00 01/13/18 11:59 Objective Vital Signs Date Time Temp Pulse Resp B/P (MAP) Pulse Ox O2 Delivery O2 Flow Rate FiO2 12/14/17 07:40 Nasal Cannula 2.0 12/14/17 07:14 36.5 71 18 137/74 (95) 98 3.0 12/14/17 07:13 67 18 97 Nasal Cannula 2.0 12/14/17 03:11 74 18 98 Nasal Cannula 2.0 12/14/17 00:16 36.8 79 20 145/77 (99) 99 2.0 12/14/17 00:00 Nasal Cannula 2.0 12/13/17 22:56 77 22 99 Nasal Cannula 2.0 12/13/17 20:00 Room Air 3.0 12/13/17 19:28 98 20 96 Nasal Cannula 2.0 12/13/17 18:22 104 20 96 Nasal Cannula 2.0 12/13/17 18:09 116 24 96 Nasal Cannula 3.0 12/13/17 16:01 36.5 96 20 122/63 (82) 98 Nasal Cannula 3.0 12/13/17 15:30 Room Air 3.0 12/13/17 14:22 94 20 90 Room Air 12/13/17 12:00 Nasal Cannula 3.0 12/13/17 11:41 36.6 68 20 96/56 (69) 93 Nasal Cannula 12/13/17 09:09 99 Laboratory Results Results Past 24 Hours Test 12/13/17 11:08 12/13/17 16:52 12/13/17 19:58 12/14/17 06:55 Range/Units Bedside Glucose 136 206 244 70-90 mg/dl White Blood Count 10.32 4.8-10.8 K/uL Red Blood Count 3.74 4.2-5.4 M/uL Hemoglobin 9.4 12.0-16.0 g/dL Hematocrit 30.1 37-47 % Mean Corpuscular Volume 80.5 80-100 fL Mean Corpuscular Hemoglobin 25.1 25-34 pg Mean Corpuscular Hemoglobin Concent 31.2 32-36 g/dl RDW Standard Deviation 55.8 36.4-46.3 fL RDW Coefficient of Variation 19.2 11.5-14.5 % Platelet Count 298 130-400 K/uL Mean Platelet Volume 8.5 7.4-10.4 fL Nucleated RBC Absolute Count (auto) 0.04 0-0 K/uL Nucleated Red Blood Cells % 0.3 % Sodium Level 141 136-145 mmol/L Potassium Level 3.9 3.5-5.1 mmol/L Chloride Level 104 98-107 mmol/L Carbon Dioxide Level 31 21-32 mmol/L Anion Gap 6.0 3-11 mmol/L Blood Urea Nitrogen 12 7-18 mg/dl Creatinine 0.65 0.60-1.20 mg/dl Est Creatinine Clear Calc Drug Dose 79.3 ml/min Estimated GFR () 102.1 Estimated GFR (Non- 88.1 BUN/Creatinine Ratio 18.3 10-20 Random Glucose 69 70-99 mg/dl Calcium Level 8.9 8.5-10.1 mg/dl Magnesium Level 1.5 1.8-2.4 mg/dl Total Bilirubin 0.4 0.2-1 mg/dl Aspartate Amino Transf (AST/SGOT) 32 15-37 U/L Alanine Aminotransferase (ALT/SGPT) 56 12-78 U/L Alkaline Phosphatase 117 45-117 U/L Total Protein 5.4 6.4-8.2 gm/dl Albumin 2.5 3.4-5.0 gm/dl Globulin 2.9 2.5-4.0 gm/dl Albumin/Globulin Ratio 0.9 0.9-2 Test 12/14/17 07:35 Range/Units Bedside Glucose 83 70-90 mg/dl Resident Tracking Resident Involvement: Resident Care Provided Care Provided: Adult Hospital Medicine
[2017-12-14] MEDS: RANITIDINE HCL 150 MG TAB PO SCH (08:21)
[2017-12-14] MEDS: INSULIN ASPART 100 UNITS/ML 3 ML PEN SC SCH ×2 (08:27→11:54)
[2017-12-14] MEDS: ALBUTEROL 0.083% NEBU SOLN 3 ML VIAL INH PRN ×2 (11:13→15:18)
--- NOTE | 2017-12-14 11:28 | Pharmacy Progress Note ---
Pharmacy Glycemic Short Note 2 Date of Service Dec 14, 2017. OUTPATIENT ANTIDIABETIC REGIMEN: * NPH 20 units SQ AM * Metformin 1,000mg PO BIDM * A1c = 8.8% 11/26/17 ASSESSMENT: * 72yo T2DM female with near adequate outpatient control. Goal A1c likely closer to 7.5-8.5% based on age/co-morbidities. * Patient is experiencing BSG elevation throughout the day due to steroids. She remains on Prednisone 20 mg PO daily. * Fasting BSG below goal. Will move NPH administration from breakfast to lunch to better coincide with steroid peak effect. * Post-prandial BSG elevation with dinner and at HS, therefore I will tighten Novolog CF/CR. PLAN FOR INPATIENT GLYCEMIC CONTROL: * Hold outpatient oral diabetes medications * Basal insulin: - move to lunchtime administration * NPH 15 units SQ daily * Bolus insulin: tighten * NovoLog per scale ACHS or Q6hrs while NPO * Goal Range: Low 120 mg/dL - High 150 mg/dL * Correction Factor: 25 mg/dL/unit * Nutritional / Prandial insulin per carb ratio of 1 unit per 7 grams CHO consumed DISCHARGE RECOMMENDATIONS: * A1c slightly elevated based on age/co-morbidities * Recommend resuming outpatient regimen on discharge and titrate NPH dose to goal per PCP. * Consider increase in NPH if steroids are continued on discharge: * For prednisone 20 mg: additional 16 units of NPH needed Thank you
[2017-12-14] MEDS ORDERED: INSULIN HUMAN NPH SC SCH (12:00)
--- NOTE | 2017-12-14 14:05 | Discharge Summary ---
Discharge Summary Date of Service Dec 14, 2017. Discharge Summary Admission Date: Dec 10, 2017 at 03:37 Discharge Date: Dec 11, 2017 Discharge Disposition: Acute care facility Principal Diagnosis: Elevated Troponin Problems/Secondary Diagnoses: LONG QT Immunizations: Have You Had Influenza Vaccine: Yes History of Tetanus Vaccine?: Yes History of Pneumococcal: Yes History of Hepatitis B Vaccine: Unknown Procedures: Cardiac Catheterization Indication: NSTEMI, cardiomyopathy Access: 6 [place] right radial artery Catheters: [place] Findings: LM - angiographically normal LAD - angiographically normal Circumflex - dominant, angiographically normal RCA - small non dominant, angiographically normal LVEDP - 10 Arterial Closure: TR band Summary: 1. Essentially normal coronary arteries 2. Normal intracardiac filling pressure ABDOMEN 2VIEW W/PA CHEST RTN CLINICAL HISTORY: nausea, distended pain. COMPARISON STUDY: 11/11/2017 FINDINGS: Chronic bibasilar interstitial prominence. Mid and upper lungs are clear. Bowel pattern is nonobstructive throughout. There is mild generalized nonobstructive ileus. IMPRESSION: Mild generalized nonobstructive ileus. Chronic basilar interstitial prominence. CT SCAN OF THE ABDOMEN AND PELVIS WITHOUT CONTRAST CLINICAL HISTORY: Nausea. Suspected bowel obstruction. COMPARISON STUDY: Conventional radiographic study dated 12/10/2017, CT scan dated November 11, 2017 TECHNIQUE: CT scan of the abdomen and pelvis was performed from the lung bases to the proximal femurs. Images are reviewed in the axial, sagittal, and coronal planes. IV contrast was not administered for this examination. A dose lowering technique was utilized adhering to the principles of ALARA. CT DOSE: 876.15 mGycm FINDINGS: Lower chest: The heart is borderline enlarged. There is no pericardial effusion. Liver: The unenhanced liver is normal in size, contour, and attenuation. There is no intrahepatic biliary ductal dilatation. Gallbladder: Unremarkable. Spleen: Normal in size and attenuation. Pancreas: Unremarkable. Adrenal glands: Unremarkable. Kidneys: No renal, ureteral, or bladder calculi are visualized. Bowel: There are no transition zones indicate bowel obstruction. There is colonic diverticulosis. There are no acute peridiverticular inflammatory changes. There are no findings to indicate acute appendicitis. Peritoneum: There is no intraperitoneal free air or abdominal ascites. Vasculature: The abdominal aorta is normal in course and caliber. Adenopathy: None. Pelvic viscera: The uterus is surgically absent. There is a 15 mm right ovarian cyst. Skeletal structures: No destructive osseous lesions are seen. IMPRESSION: 1. No evidence of bowel obstruction. No evidence of free air 2. Diverticulosis. No evidence of acute diverticulitis 3. No evidence of acute appendicitis Consultations: Cardiology Medication Reconciliation New Medications: Aspirin (Aspirin EC Low Dose) 81 Mg Ectab 81 MG PO QAM for 30 Days, #30 Atorvastatin (Lipitor) 40 Mg Tab 80 MG PO QAM for 30 Days, #60 TAB Metoprolol Tartrate (Lopressor) 25 Mg Tab 25 MG PO BID for 30 Days, #60 TAB Prednisone (Prednisone) 20 Mg Tab 20 MG PO DAILY for 30 Days, #30 TAB Changed Medications: Escitalopram Oxalate (Lexapro) 20 Mg Tab 10 MG PO DAILY for 30 Days, #15 TAB (Changed from: 20 MG) Continued Medications: Albuterol Sulf (Albuterol Sulfate) 2.5 Mg/3 Ml Nebu 2.5 MG NEB Q4H PRN for SOB/Wheezing Arformoterol Tartrate (Brovana) 15 Mcg/2 Ml Neb 15 MCG NEB BID, INHALER Budesonide (Pulmicort Respules 0.5MG/2ML) 0.5 Mg/2 Ml Nebu 0.5 MG NEB BID, EA Calcium Carbonate-Cholecalcife (Oyster Shell Calcium + D) 1 Tab Tab 1 TAB PO QAM Cholecalciferol (Vitamin D 400 Iu) 400 Unit Cap 400 INTER.UNIT PO QAM Clonazepam (Clonazepam) 0.5 Mg Tab 0.5 MG PO Q12H PRN for Anxiety/Agitation Doxycycline Monohydrate (Monodox) 100 Mg Cap 100 MG PO DAILY, #30 CAP Fluticasone Propionate (Nasal) (Flonase Allergy Relief) 50 Mcg/Act Spr 1 SPRAY NANCY DAILY Home O2 Therapy (Oxygen) Gas 2-3 LITERS NA CONTINOUS, BTL Insulin Human NPH (Humulin N) 100 Units/Ml Susp 20 UNITS SC QAM Ipratropium-Albuterol (Duoneb) 3 Ml Nebu 1 TREATMENT INH Q4WA PRN for SOB/Wheezing, INHA Levothyroxine Sodium (Synthroid) 25 Mcg Tab 25 MCG PO QAM Meloxicam (Meloxicam) 7.5 Mg Tab 7.5 MG PO DAILY Metformin Hcl (Glucophage) 1,000 Mg Tab 1000 MG PO BID, TAB Mirtazapine (Mirtazapine) 15 Mg Tab 30 MG PO HS, #16 TAB Montelukast Sodium (Singulair) 10 Mg Tab 10 MG PO HS Multiple Vitamins W/ Iron (Multi Vitamin with Iron) 1 Tab Tab 1 TAB PO QAM Polyethylene Glycol 3350 (Miralax) 1 Pow Pow 17 GM PO DAILY PRN for Constipation, GM Potassium Chloride (Klor-Con M20) 20 Meq Tabcr 20 MEQ PO BID Quetiapine Fumarate (Seroquel) 200 Mg Tab 200 MG PO HS, #16 TAB Ranitidine (Zantac) 150 Mg Tab 150 MG PO DAILY, TAB Rivaroxaban (Xarelto) 20 Mg Tab 20 MG PO QAM, TAB Roflumilast (Daliresp) 500 Mcg Tab 500 MCG PO DAILY for 30 Days, #30 TAB Theophylline (Rohit-24) 400 Mg Capcr 400 MG PO QAM Tiotropium [place] (Spiriva Handihaler) 30 Puff/540 Mcg Aerp 1 CAP INH DAILY Discontinued Medications: Hydroxyzine HCl (Hydroxyzine HCl) 10 Mg Tab 10 MG PO TID PRN for Anxiety Discharge Exam General Appearance: WD/WN, no apparent distress Eyes: normal inspection, EOMI ENT: hearing grossly normal, pharynx normal Neck: supple, no adenopathy, no JVD Respiratory/Chest: lungs clear, no respiratory distress Cardiovascular: regular rate, rhythm, no gallop, no murmur Abdomen: normal bowel sounds, non tender, soft Extremities: non-tender, no pedal edema Neurologic/Psychiatric: alert, normal mood/affect, oriented x 3 Skin: normal color, warm/dry, no rash Lymphatic: no adenopathy Hospital Course H&P 71F with history of COPD, chronic diastolic CHF, h/o ovarian cancer and h/o PE presents with a complaint of nausea for the past 4 days. She noticed it after she woke up. She has been unable to eat or drink anything over the last several days due to nausea. Today she was dry heaving. There has been no diarrhea. Last BM was yesterday and was normal in texture. Pt reports a chest tingling in the middle of her chest. No movement makes the tingling worse or go away. The tingling has been there for about a week. Patient states that her breathing is actually not bothering her. Pt is on 2L O2 at home. Pt ambulates with the assistance of a walker but hasn't been ambulating too much. Pt states that she lives with an aid. ROS: ankles and wrists have been getting thinner and her stomach has been getting fatter over past year or so, pt states she has also been taking daily prednisone over this time period. PMHx: Per chart review, admission in October for Syncope 2/2 prolonged QT and approx 5 admissions in the past 12 months for COPD exacerbations. Course 71 yo F with COPD , diastolic CHF presenting with nausea and vomiting and sustaining supply/demand NSTEMI NSTEMI - EKG showed ST depression - Trop was 0.296 - Cardiology consulted - Started on ASA - Cath (12/11) showed essentially normal coronary arteries and normal intracardiac filling pressures. - Elevated troponin attributed in setting of cardiomyopathy or vasospasm - Patient chest pain free durign hospital stay - ASA, Statin and Metoprolol started and continued on discharge Long QT - > 500 on admission - Lexapro dose decreased; anti-psychotics maintained to prevent delusion trended down during admission - EKG can be repeat at outpatient follow up when patient ready to be discharged Anemia - Hb 07/19 on arriva to as low as 8.7. Stablized by discharge - Has reactive reticulocytes suggesting appropriate response - no transfusion needed Nausea / Vomiting - likely self-limited gastro-enteritis - resolved during Hospital stay - Promethazine PRN Hypomagnesemia, Hypokalemia - repleted - Resolved during hospital stay COPD cxr without acute findings c/w Arformoterol Tartrate (Brovana), 15 MCG NEB BID c/w Budesonide 0.5 MG NEB BID c/w Montelukast Sodium (Singulair), 10 MG PO HS c/w Roflumilast (Daliresp), 500 MCG PO DAILY c/w Theophylline (Rohit-24), 400 MG PO QAM c/w Tiotropium [place] (Spiriva Handihaler), 1 CAP INH DAILY c/w Pred 20mg daily Depression / Anxiety - Changed Lexapro: dose decreased to 10 mg daily - Continued mirtazapine - Continued Seroquel- need to maintain dosing at 200 due to significant h/o delusions - continued Clonazepam - D/C'd Hydroxyzine Type 2 Diabetes Mellitus - Insulin SSI History of PE & Ovarian CA - Continued Xarelto Hypothyroid - Synthroid OA - Meloxicam DVT Prophylaxis - SCD Knee, GABI Hose - Xarelto Discharged to [place] Resident Physician Supervision Note: I interviewed and examined the patient. Discussed with Dr. Cherry and agree with findings and plan as documented in the note. Any exceptions or clarifications are listed here: None Documented By: Jose Devon feeling better wants to go to rehab vitals noted nad breathing unlabored no pallor or icterus demand ischemia - now resolved stable for rehab otherwise as above Total Time Spent: Less than 30 minutes This includes examination of the patient, discharge planning, medication reconciliation, and communication with other providers. Discharge Instructions Please refer to the electronic Patient Visit Report (Discharge Instructions) for additional information. Additional Copies To Lisa Schroeder
--- NOTE | 2017-12-14 14:30 | Discharge Instructions ---
Discharge Instructions Date of Service Dec 14, 2017. Admission Reason for Admission: Elevated Troponin, Nausea And Vomiting Discharge Discharge Diagnosis / Problem: Elevated Troponin, N/V Discharge Goals Goal(s): Decrease discomfort, Improve function, Increase independence, Improve disease control, Improve nutritional status, Learn about illness, Diagnostic testing, Therapeutic intervention, Screening, Prevent Disease Progression, Specific goals Activity Recommendations Activity Level: Up Ad Porsha . Additional Information Patient informed of condition: Yes Advance Directives: No DNR: No Level of Care: Acute Rehab Communicable Disease: No Prognosis: Stable Oxygen at (LPM): 2 LPM Instructions / Follow-Up Instructions / Follow-Up 71 yo F with COPD , diastolic CHF presenting with nausea and vomiting and sustaining supply/demand NSTEMI. NSTEMI - Clean cath; likely supply demand from Nausea and vomiting - Remains chest pain free; have discontinued troponin monitoring - Medical management only: ASA, Statin and Metoprolol Long QT - > 500 on admission; last QTc 412 yesterday - Lexapro dose decreased; anti-psychotics maintained to prevent delusion - EKG can be repeat at outpatient follow up when patient ready to be discharged Anemia - Hb improved, stable today at 9.4 - Hemoccult negative no evidence of bleeding - Has reactive reticulocytes suggesting appropriate response - Repeat Hb following discharge Nausea / Vomiting - Resolved, likely self-limited gastro-enteritis - Promethazine PRN Hypomagnesemia - 1.5 today - Re-check Mg level following discharge COPD cxr without acute findings c/w Arformoterol Tartrate (Brovana), 15 MCG NEB BID c/w Budesonide 0.5 MG NEB BID c/w Montelukast Sodium (Singulair), 10 MG PO HS c/w Roflumilast (Daliresp), 500 MCG PO DAILY c/w Theophylline (Rohit-24), 400 MG PO QAM c/w Tiotropium [place] (Spiriva Handihaler), 1 CAP INH DAILY c/w Pred 20mg daily Depression / Anxiety - Change Lexapro: dose decreased to 10 mg daily - Continue mirtazapine - Continue Seroquel- need to maintain dosing at 200 due to significant h/o delusions - continue Clonazepam - D/C Hydroxyzine Type 2 Diabetes Mellitus - Insulin SSI History of PE & Ovarian CA - Continue Xarelto Hypothyroid - Synthroid OA - Meloxicam DVT Prophylaxis - SCD Knee, GABI [place] - Xarelto Code Status - Level I Full Code Current Hospital Diet Patient's current hospital diet: Diabetes Type 2 Diet Discharge Diet Recommended Diet: Diabetes Type 2 Diet Procedures Procedures Performed: ] ABDOMEN 2VIEW W/PA CHEST RTN CLINICAL HISTORY: nausea, distended pain. COMPARISON STUDY: 11/11/2017 FINDINGS: Chronic bibasilar interstitial prominence. Mid and upper lungs are clear. Bowel pattern is nonobstructive throughout. There is mild generalized nonobstructive ileus. IMPRESSION: Mild generalized nonobstructive ileus. Chronic basilar interstitial prominence. CT SCAN OF THE ABDOMEN AND PELVIS WITHOUT CONTRAST CLINICAL HISTORY: Nausea. Suspected bowel obstruction. COMPARISON STUDY: Conventional radiographic study dated 12/10/2017, CT scan dated November 11, 2017 TECHNIQUE: CT scan of the abdomen and pelvis was performed from the lung bases to the proximal femurs. Images are reviewed in the axial, sagittal, and coronal planes. IV contrast was not administered for this examination. A dose lowering technique was utilized adhering to the principles of ALARA. CT DOSE: 876.15 mGycm FINDINGS: Lower chest: The heart is borderline enlarged. There is no pericardial effusion. Liver: The unenhanced liver is normal in size, contour, and attenuation. There is no intrahepatic biliary ductal dilatation. Gallbladder: Unremarkable. Spleen: Normal in size and attenuation. Pancreas: Unremarkable. Adrenal glands: Unremarkable. Kidneys: No renal, ureteral, or bladder calculi are visualized. Bowel: There are no transition zones indicate bowel obstruction. There is colonic diverticulosis. There are no acute peridiverticular inflammatory changes. There are no findings to indicate acute appendicitis. Peritoneum: There is no intraperitoneal free air or abdominal ascites. Vasculature: The abdominal aorta is normal in course and caliber. Adenopathy: None. Pelvic viscera: The uterus is surgically absent. There is a 15 mm right ovarian cyst. Skeletal structures: No destructive osseous lesions are seen. IMPRESSION: 1. No evidence of bowel obstruction. No evidence of free air 2. Diverticulosis. No evidence of acute diverticulitis 3. No evidence of acute appendicitis Procedure(s) Performed Coronary Angiography, Left Heart Cath Building Official [employer](s) Mary Estimated Blood Loss 10 Medication(s) Fentanyl, Heparin, Nicardipine, Versed, Lidocaine 1% Summary of Findings Indication: NSTEMI, cardiomyopathy Access: 6 [place] right radial artery Catheters: [place] Findings: LM - angiographically normal LAD - angiographically normal Circumflex - dominant, angiographically normal RCA - small non dominant, angiographically normal LVEDP - 10 Arterial Closure: TR band Summary: 1. Essentially normal coronary arteries 2. Normal intracardiac filling pressure Recommendations: Continue guideline directed medical therapy for cardiomyopathy Continued ASCVD primary prevention medications Pending Studies Studies pending at discharge: no Physician Orders On Transfer Additional Orders: Repeat BMP, Repeat H/H O2 NC 2L Laboratory Results Hemoglobin A1c Test 10/29/17 07:04 Range/Units Estimated Average Glucose 206 mg/dl Hemoglobin A1c 8.8 H 4.5-5.6 % Medical Emergencies . Who to Call and When: Medical Emergencies: If at any time you feel your situation is an emergency, please call 911 immediately. . Non-Emergent Contact Non-Emergency issues call your: Primary Care Provider, Building Official Call Non-Emergent contact if: you have a fever, your pain is not controlled, your pain is worsening, your pain is unusual for you, your pain is concerning you, you have any medication questions . . "Provider Documentation" section prepared by Tyrel Cherry. . Core Measure Problem Core Measures: AMI AMI Core Measures Reason no ASA as I/P: Treatment provided - N/A Reason no ASA at D/C: Treatment provided - N/A Reason no statin as I/P: Treatment provided - N/A Reason no statin at D/C: Treatment provided - N/A
== END 2017-12-14 16:20 | DRG 281 ==
LOC: EDBD 01:36 → C.EDB 01:37 → C.2T 03:37 → ENRESERV 03:45 → C.2E 12-12 17:44 → ENRESERV 12-13 14:21 → C.MS2W 12-13 15:23
PROVIDERS: ADMIT Family Medicine; ATTEND Family Medicine
PROC: B211YZZ Fluoroscopy of Multiple Coronary Arteries using Other Contrast (ICD-10-PCS; principal; 2017-12-11 14:23)
PROC: 4A023N7 Measurement of Cardiac Sampling and Pressure, Left Heart, Percutaneous Approach (ICD-10-PCS; principal; 2017-12-11 14:23)
DX: I21.A1 Myocardial infarction type 2 (principal); I50.32 Chronic diastolic (congestive) heart failure; E87.1 Hypo-osmolality and hyponatremia; I45.81 Long QT syndrome; K52.9 Noninfective gastroenteritis and colitis, unspecified; D64.9 Anemia, unspecified; E87.6 Hypokalemia; E83.42 Hypomagnesemia; E61.1 Iron deficiency; J44.9 Chronic obstructive pulmonary disease, unspecified; E11.9 Type 2 diabetes mellitus without complications; E03.9 Hypothyroidism, unspecified; F41.1 Generalized anxiety disorder; F32.9 Major depressive disorder, single episode, unspecified; M19.90 Unspecified osteoarthritis, unspecified site; K21.9 Gastro-esophageal reflux disease without esophagitis; E66.8 Other obesity; Z51.81 Encounter for therapeutic drug level monitoring; Z79.899 Other long term (current) drug therapy; Z79.4 Long term (current) use of insulin; Z79.01 Long term (current) use of anticoagulants; Z79.51 Long term (current) use of inhaled steroids; Z79.1 Long term (current) use of non-steroidal anti-inflammatories (NSAID); Z99.81 Dependence on supplemental oxygen; Z86.711 Personal history of pulmonary embolism; Z85.43 Personal history of malignant neoplasm of ovary; Z68.32 Body mass index [BMI] 32.0-32.9, adult; Z87.891 Personal history of nicotine dependence; Z88.7 Allergy status to serum and vaccine; Z91.018 Allergy to other foods; Z91.048 Other nonmedicinal substance allergy status

== ENCOUNTER 2018-01-05 21:15 | Inpatient (IN) | payer OTHER ==
[~2018-01-05] VITALS: Ht 160 cm; Wt 87.1 kg
[~2018-01-05 21:15] MED LIST changes: +ASPI-320 PO; -ATR10 PO; -BISA1TAB15 PO; -CALC-211 PO; -FLUT0.15 NAE; -IPRASOL4 INH; -KLN5 PO; -LEVO25TA PO; +LPR25 PO; +LPT40 PO; -MBC75 PO; -MCRK20 PO; -MONT1TAB3 PO; -MULT-1028 PO; -OXGN; -POLY335019 PO; +PRD20 PO; -PRED10TA PO; -PRED20TA PO; +RANI150T85 PO; -SPRIN/30 INH
[2018-01-05] MEDS ORDERED: IPRASOL4 INH (21:24)
[2018-01-05] MEDS ORDERED: POLY335019 PO (21:24)
[2018-01-05] MEDS ORDERED: OXGN (21:28)
[2018-01-05] MEDS ORDERED: ONDANSETRON INJ 2 MG/ML 2 ML VIAL IV STA (21:34)
[2018-01-05] MEDS ORDERED: SODIUM CHLORIDE 0.9% 250ML 250 ML IV STA (21:34)
[2018-01-05] MEDS ORDERED: SODIUM CHLORIDE 0.9% 1000ML 1,000 ML IV STA ×2 (21:34→22:07)
[2018-01-05] MEDS ORDERED: METOCLOPRAMIDE HCL INJ 5 MG/ML 2 ML VIAL IV STA (21:39)
[2018-01-05] MEDS ORDERED: PANTOprazole INJ 40 MG in SYRINGE 0 ML IV ONE (21:45)
[2018-01-05 21:51] LABS: BASO % 0.1 %; BASO ABS # 0.02 K/uL (0-0.2); EOS % 0.1 %; EOS ABS # 0.03 K/uL (0-0.5); HEMATOCRIT 30.1 % (37-47); HEMOGLOBIN 9.7 g/dL (12.0-16.0); IG# 0.09 K/uL (0.00-0.02); LYMPH % 7.2 %; LYMPH ABS # 1.54 K/uL (1.2-3.4); MEAN CELL VOLUME 76.2 fL (80-100); MEAN CORPUSCULAR HEMOGLOBIN 24.6 pg (25-34); MEAN CORPUSCULAR HGB CONC 32.2 g/dl (32-36); MEAN PLATELET VOLUME 8.1 fL (7.4-10.4); MONO % 6.7 %; MONO ABS # 1.42 K/uL (0.11-0.59); NEUT % 85.5 %; PLATELET COUNT 638 K/uL (130-400); RED CELL DISTRIBUTION WIDTH CV 17.9 % (11.5-14.5); RED CELL DISTRIBUTION WIDTH SD 50.7 fL (36.4-46.3)
[2018-01-05] MEDS ORDERED: VANCOMYCIN IV STA (21:55)
[2018-01-05] MEDS ORDERED: SODIUM CHLORIDE 0.9% IV STA (21:55)
[2018-01-05] MEDS ORDERED: CEFEPIME IV 1,000 MG in DEXTROSE 5% 100ML 100 ML IV STA (21:55)
--- NOTE | 2018-01-05 21:59 | DIAGNOSTIC IMAGING REPORT ---
CHEST ONE VIEW PORTABLE CLINICAL HISTORY: Sepsis COMPARISON STUDY: 12/10/2017 FINDINGS: The heart is borderline enlarged. There is no failure. There is no focal pulmonary consolidation. There are no pleural effusions.[ IMPRESSION: No active disease in the chest. Electronically signed by: Hang Moses M.D. 01/05/2018 9:58 PM Dictated Date/Time: 01/05/2018 9:57 PM
[2018-01-05] MEDS ORDERED: VANCOMYCIN CONSULT ACTIVE PRN (22:00)
[2018-01-05 22:13] LABS: ALBUMIN 2.8 gm/dl (3.4-5.0); ALT/SGPT 24 U/L (12-78); AST/SGOT 24 U/L (15-37); BLOOD UREA NITROGEN 26 mg/dl (7-18); CALCIUM 9.8 mg/dl (8.5-10.1); CARBON DIOXIDE 35 mmol/L (21-32); CREATININE 1.39 mg/dl (0.60-1.20); GLUCOSE 183 mg/dl (70-99); POTASSIUM 2.3 mmol/L (3.5-5.1); SODIUM 128 mmol/L (136-145)
[2018-01-05] MEDS ORDERED: MAGNESIUM SULFATE 1GM / D5W 1 GM BAG IV STA (22:13)
[2018-01-05] MEDS ORDERED: POTASSIUM CHLR 20 MEQ / WTR 20 MEQ IV STA (22:13)
[2018-01-05] MEDS ORDERED: ATOR-24 PO (22:24)
[2018-01-05] MEDS ORDERED: ASPI81TA28 PO (22:24)
[2018-01-05] MEDS ORDERED: PRED10TA PO (22:24)
[2018-01-05 22:27] LABS: ALKALINE PHOSPHATASE 156 U/L (45-117); TOTAL PROTEIN 7.9 gm/dl (6.4-8.2)
[2018-01-05] MEDS ORDERED: PANTOprazole INJ 80 MG in DEXTROSE 5% 100ML IV SCH (22:30)
[2018-01-05] MEDS ORDERED: PANTOprazole INJ 40 MG in DEXTROSE 5% 100ML IV SCH (22:45)
[2018-01-05 22:49] LABS: INR 1.2 (0.9-1.1); PTT PATIENT 28.8 SECONDS (21.0-31.0)
[2018-01-05] MEDS ORDERED: CALC-211 PO (23:05)
[2018-01-05] MEDS ORDERED: MCRK20 PO (23:05)
[2018-01-05] MEDS ORDERED: MULT-1028 PO (23:05)
[2018-01-05] MEDS ORDERED: FLUT0.15 NAE (23:05)
[2018-01-05] MEDS ORDERED: LEVO25TA PO (23:05)
[2018-01-05] MEDS ORDERED: MBC75 PO (23:05)
[2018-01-05] MEDS ORDERED: SPRIN/30 INH (23:05)
[2018-01-05] MEDS ORDERED: KLN5 PO (23:05)
[2018-01-05] MEDS ORDERED: MONT1TAB3 PO (23:05)
--- NOTE | 2018-01-05 23:12 | EMERGENCY ROOM VISIT NOTE ---
ED Visit Note First contact with patient: 21:26 I have seen and examined this patient with Stephanie Horowitz and generally agree with the treatment plan as discussed. Problem List Medical Problems: (1) Acid reflux Status: Chronic (2) CHF (congestive heart failure) Status: Chronic (3) COPD (chronic obstructive pulmonary disease) Status: Chronic (4) COPD exacerbation Status: Resolved (5) Diabetes Status: Chronic (6) KATHLEEN (generalized anxiety disorder) Status: Chronic (7) GERD (gastroesophageal reflux disease) Status: Chronic (8) Hypoxia Status: Resolved (9) Major depression, recurrent, full remission Status: Chronic (10) Meningitis Status: Resolved (11) Ovarian ca Status: Resolved (12) Ovarian cancer Status: Resolved Current/Historical Medications Scheduled Arformoterol Tartrate (Brovana), 15 MCG NEB BID Aspirin (Aspirin Ec), 81 MG PO DAILY Atorvastatin (Lipitor), 80 MG PO DAILY Budesonide (Pulmicort Respules 0.5MG/2ML), 0.5 MG NEB BID Calcium Carbonate-Cholecalcife (Oyster Shell Calcium + D), 1 TAB PO QAM Cholecalciferol (Vitamin D 400 Iu), 400 INTER.UNIT PO QAM Escitalopram Oxalate (Lexapro), 10 MG PO DAILY Home O2 Therapy (Oxygen), 2-3 LITERS NA CONTINOUS Insulin Human NPH (Humulin N), 20 UNITS SC QAM Levothyroxine Sodium (Synthroid), 25 MCG PO QAM Meloxicam (Meloxicam), 7.5 MG PO DAILY Metformin Hcl (Glucophage), 1,000 MG PO BID Metoprolol Tartrate (Lopressor), 25 MG PO BID Mirtazapine (Mirtazapine), 30 MG PO HS Montelukast Sodium (Singulair), 10 MG PO HS Multiple Vitamins W/ Iron (Multi Vitamin with Iron), 1 TAB PO QAM Potassium Chloride (Klor-Con M20), 20 MEQ PO BID Prednisone (Prednisone), 1 TAB PO DAILY Quetiapine Fumarate (Seroquel), 200 MG PO HS Ranitidine (Zantac), 150 MG PO DAILY Rivaroxaban (Xarelto), 20 MG PO QAM Roflumilast (Daliresp), 500 MCG PO DAILY Theophylline (Rohit-24), 400 MG PO QAM Tiotropium [place] (Spiriva Handihaler), 1 CAP INH DAILY Scheduled PRN Albuterol Sulf (Albuterol Sulfate), 2.5 MG NEB Q4H PRN for SOB/Wheezing Clonazepam (Clonazepam), 0.5 MG PO Q12H PRN for Anxiety/Agitation Fluticasone Propionate (Nasal) (Flonase Allergy Relief), 1 SPRAY NANCY DAILY PRN for Nausea Ipratropium-Albuterol (Duoneb), 1 TREATMENT INH Q4WA PRN for SOB/Wheezing Polyethylene Glycol 3350 (Miralax), 17 GM PO DAILY PRN for Constipation Allergies Coded Allergies: Rabies Vaccine (Verified Allergy, Severe, HIVES, 10/28/17) Ragweed (Verified Allergy, Unknown, UNKNOWN, 10/28/17) Tomato (Verified Allergy, Unknown, HIVES, 10/28/17) Vital Signs Date Time Temp Pulse Resp B/P (MAP) Pulse Ox O2 Delivery O2 Flow Rate FiO2 01/05/18 22:40 110 18 168/85 99 Nasal Cannula 3.0 01/05/18 21:48 98 Nasal Cannula 3.0 01/05/18 21:31 120 01/05/18 21:21 37.5 129 28 127/93 98 Nasal Cannula 3.0 Laboratory Results 01/05/18 21:35 Red Blood Count 3.95, Mean Corpuscular Volume 76.2, Mean Corpuscular Hemoglobin 24.6, Mean Corpuscular Hemoglobin Concent 32.2, Mean Platelet Volume 8.1, Neutrophils (%) (Auto) 85.5, Lymphocytes (%) (Auto) 7.2, Monocytes (%) (Auto) 6.7, Eosinophils (%) (Auto) 0.1, Basophils (%) (Auto) 0.1, Neutrophils # (Auto) 18.20, Lymphocytes # (Auto) 1.54, Monocytes # (Auto) 1.42, Eosinophils # (Auto) 0.03, Basophils # (Auto) 0.02 01/05/18 21:35 Test 01/05/18 21:35 01/05/18 21:45 01/05/18 22:25 01/05/18 22:28 White Blood Count 21.30 K/uL (4.8-10.8) Red Blood Count 3.95 M/uL (4.2-5.4) Hemoglobin 9.7 g/dL (12.0-16.0) Hematocrit 30.1 % (37-47) Mean Corpuscular Volume 76.2 fL (80-100) Mean Corpuscular Hemoglobin 24.6 pg (25-34) Mean Corpuscular Hemoglobin Concent 32.2 g/dl (32-36) Platelet Count 638 K/uL (130-400) Mean Platelet Volume 8.1 fL (7.4-10.4) Neutrophils (%) (Auto) 85.5 % Lymphocytes (%) (Auto) 7.2 % Monocytes (%) (Auto) 6.7 % Eosinophils (%) (Auto) 0.1 % Basophils (%) (Auto) 0.1 % Neutrophils # (Auto) 18.20 K/uL (1.4-6.5) Lymphocytes # (Auto) 1.54 K/uL (1.2-3.4) Monocytes # (Auto) 1.42 K/uL (0.11-0.59) Eosinophils # (Auto) 0.03 K/uL (0-0.5) Basophils # (Auto) 0.02 K/uL (0-0.2) RDW Standard Deviation 50.7 fL (36.4-46.3) RDW Coefficient of Variation 17.9 % (11.5-14.5) Immature Granulocyte % (Auto) 0.4 % Immature Granulocyte # (Auto) 0.09 K/uL (0.00-0.02) Anion Gap 13.0 mmol/L (3-11) Est Creatinine Clear Calc Drug Dose 36.7 ml/min Estimated GFR () 43.5 Estimated GFR (Non- 37.5 BUN/Creatinine Ratio 18.3 (10-20) Calcium Level 9.8 mg/dl (8.5-10.1) Magnesium Level 1.1 mg/dl (1.8-2.4) Total Bilirubin 0.8 mg/dl (0.2-1) Aspartate Amino Transf (AST/SGOT) 24 U/L (15-37) Alanine Aminotransferase (ALT/SGPT) 24 U/L (12-78) Alkaline Phosphatase 156 U/L (45-117) Troponin I < 0.015 ng/ml (0-0.045) Total Protein 7.9 gm/dl (6.4-8.2) Albumin 2.8 gm/dl (3.4-5.0) Globulin 5.1 gm/dl (2.5-4.0) Albumin/Globulin Ratio 0.6 (0.9-2) Procalcitonin 0.62 ng/ml (0-0.5) Gastric Fluid pH 2 Gastric Fluid Occult Blood POS (NEG) Prothrombin Time 12.1 SECONDS (9.0-12.0) Prothromb Time International Ratio 1.2 (0.9-1.1) Activated Partial Thromboplast Time 28.8 SECONDS (21.0-31.0) Partial Thromboplastin Ratio 1.1 Bedside Lactic Acid Venous 3.26 mmol/L (0.90-1.70) Medications Administered Medications (Trade) Dose Ordered Sig/Lulú Route Start Time Stop Time Status Last Admin Dose Admin Metoclopramide HCl (Reglan Inj) 10 mg NOW STAT IV 01/05/18 21:39 01/05/18 21:40 DC 01/05/18 22:12 10 MG Sodium Chloride 1,000 ml @ 999 mls/hr Q1H1M STAT IV 01/05/18 22:07 01/05/18 23:07 DC 01/05/18 22:11 999 MLS/HR Pantoprazole Sodium 80 mg/ Dextrose 120 ml @ 480 mls/hr 2230 IV 01/05/18 22:30 01/05/18 22:44 DC 01/05/18 22:50 480 MLS/HR Departure Information Referrals Anil Rodriguez D.O. (PCP) Patient Instructions [facility]
[2018-01-05] MEDS ORDERED: POLYETHYLENE (MIRALAX) 17 GM PACK PO PRN (23:15)
[2018-01-05] MEDS ORDERED: CLONAZEPAM 0.5 MG TAB PO PRN (23:15)
[2018-01-05] MEDS ORDERED: ALUMINUM/MAGNESIUM/SIMETH (MAALOX MAX) 30 ML UDC PO PRN (23:15)
[2018-01-05] MEDS ORDERED: MAGNESIUM HYDROXIDE SUSP 30 ML UDC PO PRN (23:15)
[2018-01-05] MEDS ORDERED: POTASSIUM CHLORIDE 10 MEQ / 100ML WTR IV ONE (23:23)
[2018-01-06] VITALS (20 sets, daily range): BP systolic 104–160; BP diastolic 61–86; PULSE 61–109; TEMP 36.3–37.7; O2SAT 91–99; BMI 31.5
--- NOTE | 2018-01-06 00:24 | History and Physical ---
Physical Exam Vital Signs Date Time Temp Pulse Resp B/P (MAP) Pulse Ox O2 Delivery O2 Flow Rate FiO2 01/05/18 22:40 110 18 168/85 99 Nasal Cannula 3.0 01/05/18 21:48 98 Nasal Cannula 3.0 01/05/18 21:31 120 01/05/18 21:21 37.5 129 28 127/93 98 Nasal Cannula 3.0 Diagnostics Laboratory Results Results Past 24 Hours Test 01/05/18 21:35 01/05/18 21:45 01/05/18 22:25 01/05/18 22:28 Range/Units White Blood Count 21.30 4.8-10.8 K/uL Red Blood Count 3.95 4.2-5.4 M/uL Hemoglobin 9.7 12.0-16.0 g/dL Hematocrit 30.1 37-47 % Mean Corpuscular Volume 76.2 80-100 fL Mean Corpuscular Hemoglobin 24.6 25-34 pg Mean Corpuscular Hemoglobin Concent 32.2 32-36 g/dl Platelet Count 638 130-400 K/uL Mean Platelet Volume 8.1 7.4-10.4 fL Neutrophils (%) (Auto) 85.5 % Lymphocytes (%) (Auto) 7.2 % Monocytes (%) (Auto) 6.7 % Eosinophils (%) (Auto) 0.1 % Basophils (%) (Auto) 0.1 % Neutrophils # (Auto) 18.20 1.4-6.5 K/uL Lymphocytes # (Auto) 1.54 1.2-3.4 K/uL Monocytes # (Auto) 1.42 0.11-0.59 K/uL Eosinophils # (Auto) 0.03 0-0.5 K/uL Basophils # (Auto) 0.02 0-0.2 K/uL RDW Standard Deviation 50.7 36.4-46.3 fL RDW Coefficient of Variation 17.9 11.5-14.5 % Immature Granulocyte % (Auto) 0.4 % Immature Granulocyte # (Auto) 0.09 0.00-0.02 K/uL Sodium Level 128 136-145 mmol/L Potassium Level 2.3 3.5-5.1 mmol/L Chloride Level 80 98-107 mmol/L Carbon Dioxide Level 35 21-32 mmol/L Anion Gap 13.0 3-11 mmol/L Blood Urea Nitrogen 26 7-18 mg/dl Creatinine 1.39 0.60-1.20 mg/dl Est Creatinine Clear Calc Drug Dose 36.7 ml/min Estimated GFR () 43.5 Estimated GFR (Non- 37.5 BUN/Creatinine Ratio 18.3 10-20 Random Glucose 183 70-99 mg/dl Calcium Level 9.8 8.5-10.1 mg/dl Magnesium Level 1.1 1.8-2.4 mg/dl Total Bilirubin 0.8 0.2-1 mg/dl Aspartate Amino Transf (AST/SGOT) 24 15-37 U/L Alanine Aminotransferase (ALT/SGPT) 24 12-78 U/L Alkaline Phosphatase 156 45-117 U/L Troponin I < 0.015 0-0.045 ng/ml Total Protein 7.9 6.4-8.2 gm/dl Albumin 2.8 3.4-5.0 gm/dl Globulin 5.1 2.5-4.0 gm/dl Albumin/Globulin Ratio 0.6 0.9-2 Procalcitonin 0.62 0-0.5 ng/ml Gastric Fluid pH 2 Gastric Fluid Occult Blood POS NEG Prothrombin Time 12.1 9.0-12.0 SECONDS Prothromb Time International Ratio 1.2 0.9-1.1 Activated Partial Thromboplast Time 28.8 21.0-31.0 SECONDS Partial Thromboplastin Ratio 1.1 Bedside Lactic Acid Venous 3.26 0.90-1.70 mmol/L Microbiology Results 01/05/18 Blood Culture, Received Pending 01/05/18 Blood Culture, Received Pending Diagnostic Radiology CHEST ONE VIEW PORTABLE CLINICAL HISTORY: Sepsis COMPARISON STUDY: 12/10/2017 FINDINGS: The heart is borderline enlarged. There is no failure. There is no focal pulmonary consolidation. There are no pleural effusions.[ IMPRESSION: No active disease in the chest. CXR normal Impression Resuscitation Status Resident Tracking Resident Involvement: Resident Care Provided Care Provided: Adult Hospital Medicine History & Physical Date & Time of Service: Jan 06, 2018 at 00:28 Chief Complaint: Sob, Illness Primary Care Physician: Anil Rodriguez D.O. History of Present Illness Source: patient Past Medical/Surgical History Medical Problems: (1) Acid reflux (2) Acute bronchitis (3) Acute exacerbation of chronic obstructive pulmonary disease (4) Acute respiratory failure with hypoxia (5) Anemia (6) Anemia (7) CHF (congestive heart failure) (8) COPD (chronic obstructive pulmonary disease) (9) COPD exacerbation (10) COPD exacerbation (11) COPD exacerbation (12) COPD exacerbation (13) COPD exacerbation (14) COPD exacerbation (15) Diabetes (16) ALVAREZ (dyspnea on exertion) (17) Elevated troponin (18) KATHLEEN (generalized anxiety disorder) (19) GERD (gastroesophageal reflux disease) (20) GI bleed (21) Hyperglycemia due to type 2 diabetes mellitus (22) Hypokalemia (23) Hypomagnesemia (24) Hypomagnesemia (25) Hyponatremia (26) Hypoxia (27) Hypoxia (28) Lactic acidosis (29) Major depression, recurrent, full remission (30) Meningitis (31) Nausea & vomiting (32) Non-ST elevated myocardial infarction (33) Orthostatic hypotension (34) Ovarian ca (35) Ovarian cancer (36) QT prolongation (37) Sepsis (38) Shortness of breath (39) Syncope (40) Tachypnea Family History No pertient family history secondary to age Social History Smoking Status: Never Smoker Drug Use: none Marital Status: Housing status: lives alone Occupational Status: retired Immunizations History of Influenza Vaccine: Yes History of Tetanus Vaccine?: Yes History of Pneumococcal: Yes History of Hepatitis B Vaccine: Unknown Multi-Drug Resistant Organisms History of MDRO: No Allergies Coded Allergies: Rabies Vaccine (Verified Allergy, Severe, HIVES, 10/28/17) Ragweed (Verified Allergy, Unknown, UNKNOWN, 10/28/17) Tomato (Verified Allergy, Unknown, HIVES, 10/28/17) Home Medications Scheduled Arformoterol Tartrate (Brovana), 15 MCG NEB BID Aspirin (Aspirin Ec), 81 MG PO DAILY Atorvastatin (Lipitor), 80 MG PO DAILY Budesonide (Pulmicort Respules 0.5MG/2ML), 0.5 MG NEB BID Calcium Carbonate-Cholecalcife (Oyster Shell Calcium + D), 1 TAB PO QAM Cholecalciferol (Vitamin D 400 Iu), 400 INTER.UNIT PO QAM Escitalopram Oxalate (Lexapro), 10 MG PO DAILY Home O2 Therapy (Oxygen), 2-3 LITERS NA CONTINOUS Insulin Human NPH (Humulin N), 20 UNITS SC QAM Levothyroxine Sodium (Synthroid), 25 MCG PO QAM Meloxicam (Meloxicam), 7.5 MG PO DAILY Metformin Hcl (Glucophage), 1,000 MG PO BID Metoprolol Tartrate (Lopressor), 25 MG PO BID Mirtazapine (Mirtazapine), 30 MG PO HS Montelukast Sodium (Singulair), 10 MG PO HS Multiple Vitamins W/ Iron (Multi Vitamin with Iron), 1 TAB PO QAM Potassium Chloride (Klor-Con M20), 20 MEQ PO BID Prednisone (Prednisone), 1 TAB PO DAILY Quetiapine Fumarate (Seroquel), 200 MG PO HS Ranitidine (Zantac), 150 MG PO DAILY Rivaroxaban (Xarelto), 20 MG PO QAM Roflumilast (Daliresp), 500 MCG PO DAILY Theophylline (Rohit-24), 400 MG PO QAM Tiotropium [place] (Spiriva Handihaler), 1 CAP INH DAILY Scheduled PRN Albuterol Sulf (Albuterol Sulfate), 2.5 MG NEB Q4H PRN for SOB/Wheezing Clonazepam (Clonazepam), 0.5 MG PO Q12H PRN for Anxiety/Agitation Fluticasone Propionate (Nasal) (Flonase Allergy Relief), 1 SPRAY NANCY DAILY PRN for Nausea Ipratropium-Albuterol (Duoneb), 1 TREATMENT INH Q4WA PRN for SOB/Wheezing Polyethylene Glycol 3350 (Miralax), 17 GM PO DAILY PRN for Constipation
--- NOTE | 2018-01-06 00:29 | History and Physical ---
History & Physical Date & Time of Service: Jan 06, 2018 at 00:29 Chief Complaint: Sob, Illness Primary Care Physician: Anil Rodriguez D.O. History of Present Illness Source: patient 72 yo F with COPD,Chronic hypoxic resp failure on home O2, GERD, Chronic Diastolic CHF, T2DM, recent admission 12/10-12/11 for supscted NSTEMI, cath was normal, History of PE's on Xarelto presenting with a 4 day h/o progressive n/v, subjective fever . She reports right sided abdominal pain that would last for hours. She tried Tylenol without relief. She also report cough, lightheadedness, palpitation. NO Chest pain, SOB. She also reports recurrent epistaxis as recently as yesterday. PCP is Dr. Rodriguez. She denies urinary symptoms. Abdominal pain is now resolved She is a resident of the [facility] in [place]. In the ED, afebrile, leukocytosis, tachycardic, episodes of vomiting with hematemesis x2. CXR negative, CT abdomen pending. Given Protonix KCL, Mg supplementation, 1L bolus NS , empiric Vanc, Cefepime, Zofran Past Medical/Surgical History PMH * COPD * GERD * Chronic Diastolic CHF * Menigitis 1974 * Ovarian Cacner s/pTAH BSO * T2DM PSurgHx * LEOLA/BSO * Lumpectomy * Knee Surgery x2 * Cataract Extraction dominik Family History No pertient family history secondary to age CHF CVA CAD Social History Smoking Status: Never Smoker Drug Use: none Marital Status: Housing status: lives alone Occupational Status: retired Immunizations History of Influenza Vaccine: Yes History of Tetanus Vaccine?: Yes History of Pneumococcal: Yes History of Hepatitis B Vaccine: Unknown Allergies Coded Allergies: Rabies Vaccine (Verified Allergy, Severe, HIVES, 10/28/17) Ragweed (Verified Allergy, Unknown, UNKNOWN, 10/28/17) Tomato (Verified Allergy, Unknown, HIVES, 10/28/17) Home Medications Scheduled Arformoterol Tartrate (Brovana), 15 MCG NEB BID Aspirin (Aspirin Ec), 81 MG PO DAILY Atorvastatin (Lipitor), 80 MG PO DAILY Budesonide (Pulmicort Respules 0.5MG/2ML), 0.5 MG NEB BID Calcium Carbonate-Cholecalcife (Oyster Shell Calcium + D), 1 TAB PO QAM Cholecalciferol (Vitamin D 400 Iu), 400 INTER.UNIT PO QAM Escitalopram Oxalate (Lexapro), 10 MG PO DAILY Home O2 Therapy (Oxygen), 2-3 LITERS NA CONTINOUS Insulin Human NPH (Humulin N), 20 UNITS SC QAM Levothyroxine Sodium (Synthroid), 25 MCG PO QAM Meloxicam (Meloxicam), 7.5 MG PO DAILY Metformin Hcl (Glucophage), 1,000 MG PO BID Metoprolol Tartrate (Lopressor), 25 MG PO BID Mirtazapine (Mirtazapine), 30 MG PO HS Montelukast Sodium (Singulair), 10 MG PO HS Multiple Vitamins W/ Iron (Multi Vitamin with Iron), 1 TAB PO QAM Potassium Chloride (Klor-Con M20), 20 MEQ PO BID Prednisone (Prednisone), 1 TAB PO DAILY Quetiapine Fumarate (Seroquel), 200 MG PO HS Ranitidine (Zantac), 150 MG PO DAILY Rivaroxaban (Xarelto), 20 MG PO QAM Roflumilast (Daliresp), 500 MCG PO DAILY Theophylline (Rohit-24), 400 MG PO QAM Tiotropium [place] (Spiriva Handihaler), 1 CAP INH DAILY Scheduled PRN Albuterol Sulf (Albuterol Sulfate), 2.5 MG NEB Q4H PRN for SOB/Wheezing Clonazepam (Clonazepam), 0.5 MG PO Q12H PRN for Anxiety/Agitation Fluticasone Propionate (Nasal) (Flonase Allergy Relief), 1 SPRAY NANCY DAILY PRN for Nausea Ipratropium-Albuterol (Duoneb), 1 TREATMENT INH Q4WA PRN for SOB/Wheezing Polyethylene Glycol 3350 (Miralax), 17 GM PO DAILY PRN for Constipation Review of Systems Constitutional: + fever (subjective), + chills, + fatigue, No sweats Respiratory: + cough, + sputum, + wheezing, + shortness of breath Cardiovascular: No chest pain, No edema, No palpitations Abdomen: + pain (rigth sided), + nausea, + vomiting, + GI bleeding, No diarrhea , No constipation Genitourinary - Female: No dysuria, No urinary frequency, No urinary urgency, No hematuria Psychiatric: No substance abuse Hematologic / Lymphatic: + abnormal bleeding/bruising (recurrent epistaxis) Integumentary: No rash, No itch Physical Exam Vital Signs Date Time Temp Pulse Resp B/P (MAP) Pulse Ox O2 Delivery O2 Flow Rate FiO2 01/05/18 22:40 110 18 168/85 99 Nasal Cannula 3.0 01/05/18 21:48 98 Nasal Cannula 3.0 01/05/18 21:31 120 01/05/18 21:21 37.5 129 28 127/93 98 Nasal Cannula 3.0 GENERAL: alert, no distress EYE EXAM: conjunctival pallor, PERRL and EOM's grossly intact OROPHARYNX: no exudate, no erythema, lips, buccal mucosa, and tongue normal and mucous membranes are dry NECK: supple, no nuchal rigidity, no adenopathy, non-tender LUNGS: Clear to auscultation. Normal chest wall mechanics HEART: no murmurs, S1 normal and S2 normal ABDOMEN: Right sided non-specific abdominal tenderness to palpation, no guarding or rebound tenderness, no rigidity normo-active bowel sounds, UPPER EXTREMITIES: upper extremities are grossly normal. LOWER EXTREMITIES: No pitting edema. NEURO EXAM: Normal sensorium, cranial nerves II-XII grossly intact, normal speech Diagnostics Laboratory Results Results Past 24 Hours Test 01/05/18 21:35 01/05/18 21:45 01/05/18 22:25 01/05/18 22:28 Range/Units White Blood Count 21.30 4.8-10.8 K/uL Red Blood Count 3.95 4.2-5.4 M/uL Hemoglobin 9.7 12.0-16.0 g/dL Hematocrit 30.1 37-47 % Mean Corpuscular Volume 76.2 80-100 fL Mean Corpuscular Hemoglobin 24.6 25-34 pg Mean Corpuscular Hemoglobin Concent 32.2 32-36 g/dl Platelet Count 638 130-400 K/uL Mean Platelet Volume 8.1 7.4-10.4 fL Neutrophils (%) (Auto) 85.5 % Lymphocytes (%) (Auto) 7.2 % Monocytes (%) (Auto) 6.7 % Eosinophils (%) (Auto) 0.1 % Basophils (%) (Auto) 0.1 % Neutrophils # (Auto) 18.20 1.4-6.5 K/uL Lymphocytes # (Auto) 1.54 1.2-3.4 K/uL Monocytes # (Auto) 1.42 0.11-0.59 K/uL Eosinophils # (Auto) 0.03 0-0.5 K/uL Basophils # (Auto) 0.02 0-0.2 K/uL RDW Standard Deviation 50.7 36.4-46.3 fL RDW Coefficient of Variation 17.9 11.5-14.5 % Immature Granulocyte % (Auto) 0.4 % Immature Granulocyte # (Auto) 0.09 0.00-0.02 K/uL Sodium Level 128 136-145 mmol/L Potassium Level 2.3 3.5-5.1 mmol/L Chloride Level 80 98-107 mmol/L Carbon Dioxide Level 35 21-32 mmol/L Anion Gap 13.0 3-11 mmol/L Blood Urea Nitrogen 26 7-18 mg/dl Creatinine 1.39 0.60-1.20 mg/dl Est Creatinine Clear Calc Drug Dose 36.7 ml/min Estimated GFR () 43.5 Estimated GFR (Non- 37.5 BUN/Creatinine Ratio 18.3 10-20 Random Glucose 183 70-99 mg/dl Calcium Level 9.8 8.5-10.1 mg/dl Magnesium Level 1.1 1.8-2.4 mg/dl Total Bilirubin 0.8 0.2-1 mg/dl Aspartate Amino Transf (AST/SGOT) 24 15-37 U/L Alanine Aminotransferase (ALT/SGPT) 24 12-78 U/L Alkaline Phosphatase 156 45-117 U/L Troponin I < 0.015 0-0.045 ng/ml Total Protein 7.9 6.4-8.2 gm/dl Albumin 2.8 3.4-5.0 gm/dl Globulin 5.1 2.5-4.0 gm/dl Albumin/Globulin Ratio 0.6 0.9-2 Procalcitonin 0.62 0-0.5 ng/ml Gastric Fluid pH 2 Gastric Fluid Occult Blood POS NEG Prothrombin Time 12.1 9.0-12.0 SECONDS Prothromb Time International Ratio 1.2 0.9-1.1 Activated Partial Thromboplast Time 28.8 21.0-31.0 SECONDS Partial Thromboplastin Ratio 1.1 Bedside Lactic Acid Venous 3.26 0.90-1.70 mmol/L Test 01/06/18 00:01 Range/Units Microbiology Results 01/05/18 Blood Culture, Received Pending 01/05/18 Blood Culture, Received Pending Diagnostic Radiology CHEST ONE VIEW PORTABLE CLINICAL HISTORY: Sepsis COMPARISON STUDY: 12/10/2017 FINDINGS: The heart is borderline enlarged. There is no failure. There is no focal pulmonary consolidation. There are no pleural effusions.[ IMPRESSION: No active disease in the chest. Impression Assessment and Plan 72 yo F with COPD,Chronic hypoxic resp failure on home O2, GERD, Chronic Diastolic CHF, T2DM, recurrent epistaxis, history of PE's on Xarelto presenting with n/v, hematemsis, Right sided abdominal tenderness Vomiting/Hematemesis GI Bleed in setting of Xarelto use, abdominal tenderness - Admit to Telemetry - likely Upper GI bleed given hematemesis, Xarelto use likely contributor also evidenced by epistaxis - Central line placed for difficult venous access - Blood Type and screen - GI consult - Hb of 9.7 on arrival - Check H/H q6H - CBC in am - N/V: Zofran PRN - F/u CT Abdomen Electrolyte abnormalities - Hypokalemia 2.3 on arrival - Hypomagnesemia 1.1 on arrival - Check M, K q6 - D5 NS with 20meq K - 10 meq KCl x6 - NPO - Start Protonix drip - GI consult - CT abdomen pending Leukocytosis - given Vanc/ Cefepime empirically for possible infection - no clinical evidence of infection on exam, leukocytosis may be secondary to stress demargination in setting of GI bleed - D/C abx pending culture results Tachycardia - likely secondary to anemia in setting of suspected GI bleed - IV fluids as above - Central line access as above COPD, Chronic Resp Failure cxr negative, stable c/w Arformoterol Tartrate (Brovana), 15 MCG NEB BID c/w Budesonide 0.5 MG NEB BID c/w Montelukast Sodium (Singulair), 10 MG PO HS c/w Roflumilast (Daliresp), 500 MCG PO DAILY c/w Theophylline (Rohit-24), 400 MG PO QAM c/w Tiotropium [place] (Spiriva Handihaler), 1 CAP INH DAILY c/w Pred 20mg daily Depression / Anxiety - c/w Lexapro: 10 mg daily - C/w mirtazapine - c/w Seroquel - c/w Clonazepam Type 2 Diabetes Mellitus - Insulin SSI History of PE & Ovarian CA - HOLD Xarelto for GI bleed Hypothyroid - Synthroid OA - Meloxicam DVT Prophylaxis - SCD - Xarelto Code status: FULL Resident Physician Supervision Note: I was present with Dr. Cherry during the history and exam. I discussed the case with the resident and agree with the findings and plan as documented in the note. Any exceptions or clarifications are listed here: 72 y/o F Hx COPD - home O2, GERD, Chronic Diastolic CHF, DM II, recent admission with elevated trop due to demand ischemia, History of PE's on Xarelto. Presenting with nausea and vomiting x 2 days. Had also described a cough and fever although this may have resolved. While in the ER she had witnessed hematemesis. Sever lab abnormalities are present on initial labs including hypokalemia and hypomagnesemia - concomitant EKG changes are present. OE AAO x 3 S1,2 R CTAB - poor air movement NT, ND No CCE P: As a priority, the pt will be aggressively hydrated and her electrolytes will be corrected Xarelto held and Hb will be trended - GI consulted Reg possible fevers - we have no clear infection source. A CT abdomen showed a dilated gall but did not describe cholecystitis - we will assess regardless with US to r/o a stone in the neck Placed on SS for DM Documented By: Alfonso Coon Resuscitation Status VTE Prophylaxis Will order VTE Prophylaxis: Yes Resident Tracking Resident Involvement: Resident Care Provided Care Provided: Adult Hospital Medicine
[2018-01-06 00:52] LABS: HEMATOCRIT 25.6 % (37-47); HEMOGLOBIN 8.2 g/dL (12.0-16.0)
--- NOTE | 2018-01-06 02:14 | EMERGENCY ROOM VISIT NOTE ---
History First contact with patient: 21:26 Chief Complaint: ILLNESS Stated Complaint: SOB, ILLNESS History of Present Illness The patient is a 72 year old female who presents to the Emergency Room with complaints of fever, chills, cough, runny nose with occasional mild epistaxis, mildly worsening shortness of breath for the past 4 days for the past 2 days has had nausea and vomiting and epigastric discomfort. Patient called her family doctor and was advised to the ER. She has COPD is on chronically 3 L of oxygen. She is on Xarelto for history of PEs. She states she has not missed a dose and her last dose for today at 2 PM. She states she did not vomit this up. Patient denies chest pain, diarrhea, sore throat, neck stiffness, urinary symptoms. patient states she feels quite weak and is thirsty. She has not checked her sugars today. Patient states her home health nurse checked her temperature and was high but does not know the exact temperature. She last had Tylenol earlier this morning. Nothing within the past 6-10 hours. No NSAIDs. Review of Systems An 10 system review of systems was completed with positives and pertinent negatives listed in the HPI. Past Medical/Surgical History Medical Problems: (1) Acid reflux (2) CHF (congestive heart failure) (3) COPD (chronic obstructive pulmonary disease) (4) COPD exacerbation (5) Diabetes (6) Elevated troponin (7) KATHLEEN (generalized anxiety disorder) (8) GERD (gastroesophageal reflux disease) (9) GI bleed (10) Hypoxia (11) Major depression, recurrent, full remission (12) Meningitis (13) Nausea & vomiting (14) Ovarian ca (15) Ovarian cancer (16) QT prolongation (17) Syncope Family History No pertient family history secondary to age Social History Smoking Status: Never Smoker Alcohol Use: none Drug Use: none Marital Status: Housing Status: lives with family Occupation Status: retired Current/Historical Medications Scheduled Arformoterol Tartrate (Brovana), 15 MCG NEB BID Aspirin (Aspirin Ec), 81 MG PO DAILY Atorvastatin (Lipitor), 80 MG PO DAILY Budesonide (Pulmicort Respules 0.5MG/2ML), 0.5 MG NEB BID Calcium Carbonate-Cholecalcife (Oyster Shell Calcium + D), 1 TAB PO QAM Cholecalciferol (Vitamin D 400 Iu), 400 INTER.UNIT PO QAM Escitalopram Oxalate (Lexapro), 10 MG PO DAILY Home O2 Therapy (Oxygen), 2-3 LITERS NA CONTINOUS Insulin Human NPH (Humulin N), 20 UNITS SC QAM Levothyroxine Sodium (Synthroid), 25 MCG PO QAM Meloxicam (Meloxicam), 7.5 MG PO DAILY Metformin Hcl (Glucophage), 1,000 MG PO BID Metoprolol Tartrate (Lopressor), 25 MG PO BID Mirtazapine (Mirtazapine), 30 MG PO HS Montelukast Sodium (Singulair), 10 MG PO HS Multiple Vitamins W/ Iron (Multi Vitamin with Iron), 1 TAB PO QAM Potassium Chloride (Klor-Con M20), 20 MEQ PO BID Prednisone (Prednisone), 1 TAB PO DAILY Quetiapine Fumarate (Seroquel), 200 MG PO HS Ranitidine (Zantac), 150 MG PO DAILY Rivaroxaban (Xarelto), 20 MG PO QAM Roflumilast (Daliresp), 500 MCG PO DAILY Theophylline (Rohit-24), 400 MG PO QAM Tiotropium [place] (Spiriva Handihaler), 1 CAP INH DAILY Scheduled PRN Albuterol Sulf (Albuterol Sulfate), 2.5 MG NEB Q4H PRN for SOB/Wheezing Clonazepam (Clonazepam), 0.5 MG PO Q12H PRN for Anxiety/Agitation Fluticasone Propionate (Nasal) (Flonase Allergy Relief), 1 SPRAY NANCY DAILY PRN for Nausea Ipratropium-Albuterol (Duoneb), 1 TREATMENT INH Q4WA PRN for SOB/Wheezing Polyethylene Glycol 3350 (Miralax), 17 GM PO DAILY PRN for Constipation Physical Exam Vital Signs Date Time Temp Pulse Resp B/P (MAP) Pulse Ox O2 Delivery O2 Flow Rate FiO2 01/06/18 00:00 100 18 149/73 99 Nasal Cannula 3.0 01/05/18 23:18 97 18 148/90 99 Nasal Cannula 3.0 01/05/18 22:40 110 18 168/85 99 Nasal Cannula 3.0 01/05/18 21:48 98 Nasal Cannula 3.0 01/05/18 21:31 120 01/05/18 21:21 37.5 129 28 127/93 98 Nasal Cannula 3.0 Physical Exam VITALS: Vitals are noted on the nurse's note and reviewed by myself. Vital signs tachycardic. GENERAL: Elderly female dehydrated appearing actively vomiting dark red clear material with specks of blood in it SKIN: The skin was without rashes, edema, or bruising. Capillary reflex less than 2 seconds. HEAD: Normocephalic atraumatic. EARS: External auditory canals clear, tympanic membranes pearly hackett without erythema or effusion bilaterally. EYES: Pupils equal round and reactive to light and accommodation. Conjunctivae without injection, sclerae without icterus. Extraocular movements intact. NOSE: Patent, turbinates without inflammation or discharge. No sinus tenderness. MOUTH: Mucous membranes dry pharynx without erythema or exudate. Uvula midline. Airway patent. Tongue does not deviate. NECK: Supple without nuchal rigidity. No lymphadenopathy. No thyromegaly. Cervical spine is nontender. No JVD. HEART: Tachycardic rate and LUNGS: Mild diffuse and expiratory wheezes, with bibasilar rales. No retractions or accessory muscle use. ABDOMEN: Positive bowel sounds x 4. Normal tympanic percussion. Soft, tender to palpation epigastric right upper quadrant region, no CVA tenderness, without masses or organomegaly. No guarding or rebound tenderness. No CVA tenderness MUSCULOSKELETAL: No muscle atrophy, erythema, or edema noted. NEURO: Patient was alert and oriented to person place and time. Normal sensation to light and sharp touch. No focal neurological deficits. Medical Decision & Procedures Laboratory Results 01/05/18 21:35 Red Blood Count 3.95, Mean Corpuscular Volume 76.2, Mean Corpuscular Hemoglobin 24.6, Mean Corpuscular Hemoglobin Concent 32.2, Mean Platelet Volume 8.1, Neutrophils (%) (Auto) 85.5, Lymphocytes (%) (Auto) 7.2, Monocytes (%) (Auto) 6.7, Eosinophils (%) (Auto) 0.1, Basophils (%) (Auto) 0.1, Neutrophils # (Auto) 18.20, Lymphocytes # (Auto) 1.54, Monocytes # (Auto) 1.42, Eosinophils # (Auto) 0.03, Basophils # (Auto) 0.02 01/05/18 21:35 Test 01/05/18 21:35 4/24/18 21:45 01/05/18 22:25 01/05/18 22:28 White Blood Count 21.30 K/uL (4.8-10.8) Red Blood Count 3.95 M/uL (4.2-5.4) Hemoglobin 9.7 g/dL (12.0-16.0) Hematocrit 30.1 % (37-47) Mean Corpuscular Volume 76.2 fL (80-100) Mean Corpuscular Hemoglobin 24.6 pg (25-34) Mean Corpuscular Hemoglobin Concent 32.2 g/dl (32-36) Platelet Count 638 K/uL (130-400) Mean Platelet Volume 8.1 fL (7.4-10.4) Neutrophils (%) (Auto) 85.5 % Lymphocytes (%) (Auto) 7.2 % Monocytes (%) (Auto) 6.7 % Eosinophils (%) (Auto) 0.1 % Basophils (%) (Auto) 0.1 % Neutrophils # (Auto) 18.20 K/uL (1.4-6.5) Lymphocytes # (Auto) 1.54 K/uL (1.2-3.4) Monocytes # (Auto) 1.42 K/uL (0.11-0.59) Eosinophils # (Auto) 0.03 K/uL (0-0.5) Basophils # (Auto) 0.02 K/uL (0-0.2) RDW Standard Deviation 50.7 fL (36.4-46.3) RDW Coefficient of Variation 17.9 % (11.5-14.5) Immature Granulocyte % (Auto) 0.4 % Immature Granulocyte # (Auto) 0.09 K/uL (0.00-0.02) Anion Gap 13.0 mmol/L (3-11) Est Creatinine Clear Calc Drug Dose 36.7 ml/min Estimated GFR () 43.5 Estimated GFR (Non- 37.5 BUN/Creatinine Ratio 18.3 (10-20) Calcium Level 9.8 mg/dl (8.5-10.1) Magnesium Level 1.1 mg/dl (1.8-2.4) Total Bilirubin 0.8 mg/dl (0.2-1) Aspartate Amino Transf (AST/SGOT) 24 U/L (15-37) Alanine Aminotransferase (ALT/SGPT) 24 U/L (12-78) Alkaline Phosphatase 156 U/L (45-117) Troponin I < 0.015 ng/ml (0-0.045) Total Protein 7.9 gm/dl (6.4-8.2) Albumin 2.8 gm/dl (3.4-5.0) Globulin 5.1 gm/dl (2.5-4.0) Albumin/Globulin Ratio 0.6 (0.9-2) Procalcitonin 0.62 ng/ml (0-0.5) Gastric Fluid pH 2 Gastric Fluid Occult Blood POS (NEG) Prothrombin Time 12.1 SECONDS (9.0-12.0) Prothromb Time International Ratio 1.2 (0.9-1.1) Activated Partial Thromboplast Time 28.8 SECONDS (21.0-31.0) Partial Thromboplastin Ratio 1.1 Bedside Lactic Acid Venous 3.26 mmol/L (0.90-1.70) Medications Administered Medications (Trade) Dose Ordered Sig/Lulú Route Start Time Stop Time Status Last Admin Dose Admin Sodium Chloride 1,000 ml @ 125 mls/hr Q8H STAT IV 01/05/18 21:34 01/06/18 01:53 DC 01/05/18 23:49 125 MLS/HR Metoclopramide HCl (Reglan Inj) 10 mg NOW STAT IV 01/05/18 21:39 01/05/18 21:40 DC 01/05/18 22:12 10 MG Cefepime HCl 1000 mg/Dextrose 111 ml @ 200 mls/hr NOW STAT IV 01/05/18 21:55 01/05/18 22:28 DC 01/05/18 23:15 200 MLS/HR Vancomycin HCl 1700 mg/Sodium Chloride 534 ml @ 200 mls/hr ONE STAT IV 01/05/18 21:55 01/06/18 00:35 DC 01/06/18 00:49 200 MLS/HR Sodium Chloride 1,000 ml @ 999 mls/hr Q1H1M STAT IV 01/05/18 22:07 01/05/18 23:07 DC 01/05/18 22:11 999 MLS/HR Magnesium Sulfate (Magnesium Sulfate 1gm / D5W) 2 gm NOW STAT IV 01/05/18 22:13 01/05/18 22:15 DC 01/05/18 23:35 2 GM Pantoprazole Sodium 80 mg/ Dextrose 120 ml @ 480 mls/hr 2230 IV 01/05/18 22:30 01/05/18 22:44 DC 01/05/18 22:50 480 MLS/HR Pantoprazole Sodium 40 mg/ Dextrose 100 ml @ 20 mls/hr Q5H IV 01/05/18 22:45 02/04/18 22:44 01/05/18 23:27 20 MLS/HR Potassium Chloride (KCL 10 mEq / WTR) 20 meq STK-MED ONCE IV 01/05/18 23:23 01/05/18 23:24 DC 01/06/18 00:18 20 MEQ Procedure Central Venous Catheter Indication: GI bleed, severe dehydration, no peripheral access Catheter type: Right femoral central line Location: Right femoral central line Verbal consent was obtained after the risks and benefits were explained, including but not limited to vessel injury, bleeding, scarring, infection, pain , and bone/joint/nerve damage. At this time, the risks of the procedure are less than the risks of NOT performing the procedure. A time out was taken and the correct patient and site identified. The patient was placed in the supine position and the skin was prepped in the standard fashion with chlorhexidine and full sterile drapes applied. The proper landmarks were identified with ultrasound, anesthetized with 1% lidocaine without epinephrine, and the needle was inserted through the skin in the standard fashion. The needle was carefully advanced into blood vessel lumen under ultrasound guidance. The guidewire was placed but was unable to advance 2 with my attending present who also attempted to advance the wire without success. My Attending then successfully placed the line. Please see his note for further information regarding his procedure. The patient tolerated the procedure well and there were no complications. ED Course Prior records/ancillary studies reviewed. Triage Nursing notes reviewed. Additional history obtained from the EMS. The patient's history was concerning for possible gastrointestinal bleeding with nausea and vomiting and possible fever. Differential diagnosis: Etiologies such as sepsis, pneumonia, COPD exacerbation, influenza, diverticulosis, AVM, coagulopathy, colitis, inflammatory bowel disease, malignancy, Ally-Duran tear, esophagitis, peptic ulcer disease, variceal bleed, gastritis, epistaxis, fissure, hemorrhoids, as well as others were entertained. Physical exam: As above. The patients vital signs were tachycardic. ER treatment provided: Reglan, IV fluids, vancomycin, cefepime, magnesium, potassium On reassessment the patient felt better. Diagnostics interpreted by me: ECG: Normal sinus with changing P waves, irregular intervals, prolonged QT, possible U wave, no acute ST-T wave changes, rate of 119 with occasional PAC and PVC. Impression sinus tachycardia with occasional PAC and PVCs with prolonged QT and U waves that is slightly irregular interpreted by myself The labs revealed leukocytosis, chronic anemia, blood bank sent, elevated lactic and pro calcitonin. Blood cultures pending. Imaging studies: CT ABDOMEN & PELVIS Without Contrast: Comparison 12/10/[address] Colonic diverticulosis. No definitive CT evidence to suggest acute diverticulitis. No evidence for small bowel obstruction or focal inflammation. No evidence for appendicitis. Dilated gallbladder lumen to a caliber of 5.5 cm. No definitive calcified gallstone identified characterization limited on CT. Ultrasound correlate can be considered if there is clinical indication. No evidence for obstructive uropathy. Atherosclerosis. Degenerative disc disease. Radiologist: Charly Ohara MD CHEST ONE VIEW PORTABLE CLINICAL HISTORY: Sepsis COMPARISON STUDY: 12/10/2017 FINDINGS: The heart is borderline enlarged. There is no failure. There is no focal pulmonary consolidation. There are no pleural effusions.[ IMPRESSION: No active disease in the chest. Electronically signed by: Hang Moses M.D. Consultation: A consultation was placed with Dr. Sanders and Dr. Coon, hospitalist. The case was discussed and diagnostics were reviewed. Dr. Sanders recommends holding K Centra or any other agents to reverse the Xarelto as the patient was not actively hemorrhaging at this time. Patient did have 2 episodes of vomiting that had dark blood in it but was not grossly bloody. Dr. Coon then was consulted and accepts admission of this patient. The patient was evaluated in the ER for further treatment. This appears to be consistent with GI bleed, possible sepsis, electrolyte other maladies, dehydration. Patient had a high white count and reported fevers at home. No obvious source for her infection. Patient had poor peripheral access so a central line was placed with my attending and myself. Patient was hydrated as above and started on broad-spectrum antibiotics. Patient had a chronic anemia. Repeat H&H was slightly lower. Patient was given magnesium and potassium for low watch lites. She was given Reglan for vomiting. Patient agrees to treatment plan of admission. She was reevaluated multiple times. My attending was made immediately where this patient after I initially saw this patient. Patient's tachycardia did improve. Patient remained normal or hypertensive. By the evaluation outlined above emergent etiologies such as esophageal perforation, malignancy, inflammatory bowel disease, as well as others were deemed relatively unlikely. The pt informed about the findings as listed above. All questions were answered and pleased with the treatment. Case reviewed with my attending. The chart was completed utilizing [employer] Speech voice recognition software. Grammatical errors, random word insertions, pronoun errors, and incomplete sentences are an occassional consequence of this system due to software limitations, ambient noise, and hardware issues. Any formal questions or concerns about the content, text, or information contained within the body of this dictation should be directly addressed to the physician nursing assistants teacher for clarification. Medical Decision as above Medication Reconcilliation Current Medication List: was personally reviewed by me Blood Pressure Screening Patient's blood pressure: Elevated blood pressure Blood pressure disposition: Elevated BP felt to be situational Impression Primary Impression: GI bleed Additional Impressions: Hypokalemia Anemia Nausea & vomiting Dehydration Sepsis Hypomagnesemia Critical Care I have personally spent greater than 30 minutes of critical care time in the direct management of this patient. This includes bedside care, interpretation of diagnostic studies, and testing, discussion with consultants, patient, and family members, and other required patient management activities. This 30 minutes is in excess of all separately billable procedures. Departure Information Dispostion Being Evaluated By Hospitalist Condition FAIR Referrals Anil Rodriguez D.O. (PCP) Patient Instructions My [facility] Problem Qualifiers Primary Impression: GI bleed GI bleed type/associated pathology: unspecified gastrointestinal hemorrhage type Qualified Codes: K92.2 - Gastrointestinal hemorrhage, unspecified
[2018-01-06] MEDS: D5NSS + 20MEQ KCL 1,000 ML IV SCH ×2 (02:17→12:49)
[2018-01-06] MEDS: POTASSIUM CHLR 10 MEQ / WTR 100 ML IV SCH ×4 (02:20→05:57)
[2018-01-06] MEDS: PANTOprazole INJ 40 MG in DEXTROSE 5% 100ML 100 ML IV SCH ×4 (03:54→21:30)
--- NOTE | 2018-01-06 04:19 | EMERGENCY ROOM VISIT NOTE ---
ED Visit Note First contact with patient: 00:00 Procedure Note: Central Line Placement History: 72 yr old female with dehydration and GI bleed on blood thinners requiring multiple IV medications and limited IV access. Requested by Dr Andrade and Stephanie Horowitz PA-C to assist in Central Line Placement Indication: IV access, Multiple Medications Catheter Type: Triple Lumen Location: Right Femoral Vein Time out: Yes Verbal and written consent was obtained after the risks and benefits were explained, including but not limited to nerve injury, vessel injury, bleeding, pain, , scarring, infection, amongst others. At this time, the risks of the procedure are less than the risks of NOT performing the procedure. A time out was taken and the correct patient and site identified. The patient was placed in the supine position and the skin was prepped in the standard fashion with chlorhexidine and full sterile drapes applied. Initial attempt under my monitoring by Stephanie Horowitz PA-C were unsuccessful in threading guidewire thus I attempted placement. The proper landmarks were identified with ultrasound, anesthetized with 1% lidocaine without epinephrine, and the needle was inserted through the skin in the standard fashion. The needle was carefully advanced into blood vessel lumen with ultrasound guidance. Vein accessed on my first stick without difficulty. Venous return noted. The guidewire was placed uneventfully and placement confirmed again with ultrasound. No ectopy noted on monitor. The vessel was dilated and the catheter was placed to hub. It was sutured into position. There was good blood return from all ports. The patient tolerated the procedure well and there were no complications. Juan Rao MD
[2018-01-06 04:30] LABS: HEMATOCRIT 23.9 % (37-47); HEMOGLOBIN 7.6 g/dL (12.0-16.0)
[2018-01-06] MEDS ORDERED: DEXTROSE 50% 50 ML SYR IV PRN (04:30)
[2018-01-06] MEDS ORDERED: GLUCAGON FOR INJ 1 MG VIAL SQ PRN (04:30)
[2018-01-06] MEDS ORDERED: GLUCOSE 10 TABS/TUBE PO PRN (04:30)
[2018-01-06] MEDS ORDERED: GLUCOSE 40% GEL 15 GM TUBE PO PRN (04:30)
[2018-01-06 04:48] LABS: POTASSIUM 2.9 mmol/L (3.5-5.1)
[2018-01-06] MEDS: LEVOTHYROXINE 25 MCG TAB PO SCH (05:56)
[2018-01-06] MEDS: INSULIN ASPART 100 UNITS/ML 3 ML PEN SC SCH ×4 (06:12→21:51)
--- NOTE | 2018-01-06 06:47 | DIAGNOSTIC IMAGING REPORT ---
ABD/PELVIS NO IV OR ORAL CONT CT DOSE: 871.91 mGycm HISTORY: Pain MID ABD PAIN, GI BLEED TECHNIQUE: Multiaxial CT images of the abdomen and pelvis were performed without contrast. A dose lowering technique was utilized adhering to the principles of ALARA. COMPARISON STUDY: 12/10/2017 FINDINGS: Lung bases are clear. Moderate gallbladder distention. Liver spleen and pancreas are uniform. Small hiatal hernia. Kidneys negative for calcification or hydronephrosis. Bowel pattern is considered nonobstructive. Bladder is midline. Chronic sigmoid diverticulosis with no evidence for acute diverticulitis. IMPRESSION: Mild gallbladder distention. Otherwise no acute processes the abdomen or pelvis. The above report was generated using voice recognition software. It may contain grammatical, syntax or spelling errors. Electronically signed by: Simon Cannon M.D. 01/06/2018 6:45 AM Dictated Date/Time: 01/06/2018 6:43 AM
[2018-01-06] MEDS: ARFORMOTEROL TART 15MCG/2ML VIAL INH SCH ×2 (07:08→19:03)
[2018-01-06] MEDS: ALBUT/IPRATROP 3MG/0.5MG NEB 3 ML VIAL INH SCH ×3 (07:09→15:14)
[2018-01-06] MEDS: BUDESONIDE 0.5 MG/2 ML VIAL (PULMICORT) INH SCH ×2 (07:09→19:03)
[2018-01-06] MEDS: TIOTROPIUM BROMIDE 5 PUFF/90 MCG INH INH SCH (08:52)
[2018-01-06] MEDS: ROFLUMILAST 500 MCG TAB PO SCH (08:52)
[2018-01-06] MEDS: ATORVASTATIN 40 MG TAB PO SCH (08:53)
[2018-01-06] MEDS: ESCITALOPRAM OXALATE 10 MG TAB PO SCH (08:53)
[2018-01-06] MEDS: METOPROLOL TARTRATE 25 MG TAB PO SCH ×2 (08:54→21:42)
[2018-01-06] MEDS: CHOLECALCIFEROL 400 INTER.UNIT TAB PO SCH (08:58)
--- NOTE | 2018-01-06 09:46 | Gastrointestinal Consultation ---
Gastrointestinal Consultation Date of Consultation: Jan 06, 2018 Attending Physician: Dr. Devries Consulting Physician: Janey Kaur PA-C Reason for Consultation: anemia, GI bleed History of Present Illness Patient is a 72 year old female with a past medical history of COPD, chronic hypoxic respiratory failure on home O2, GERD, chronic diastolic CHF, DM2, recent NSTEMI in November 2017, and history of PE for which she is anticoagulated on Xarelto. She presented to the ER after experiencing nausea and vomiting for 4 days. She reports that she had right sided abdominal pain as well, though she reports that has improved today. She states that she had vomited a dark substance and decided that she needed to go to the ER. She reports recurrent epistaxis as well. She was noted to be tachycardic upon admission to the ER. Gastric occult was positive. She was and remains hypokalemic. WBC count is 21,300. Her H/H on admission was 9.7/30.1 and decreased to 7.6/23.9 this AM. BUN/Cr was 26 and 1.39. Alk phos is 156. CXR indicated an enlarged heart. She is afebrile at present. She has had a CT scan of the abdomen/pelvis that was unremarkable with the exception of possible mild distention of the gallbladder. She reports a history of gastric ulcers in the 1970s. She denies NSAID use, but Meloxicam was noted in other places of the chart. She denies family history of GI abnormalities. She reports to me that she has never had a colonoscopy and never wants one. She reports she would consider an EGD if it was deemed medically necessary. Past Medical/Surgical History Medical Problems: (1) Acute bronchitis Status: Acute (2) Acute exacerbation of chronic obstructive pulmonary disease Status: Acute (3) Anemia Status: Acute (4) Anemia Status: Acute (5) Anemia Status: Acute (6) COPD exacerbation Status: Acute (7) COPD exacerbation Status: Acute (8) COPD exacerbation Status: Acute (9) COPD exacerbation Status: Acute (10) COPD exacerbation Status: Acute (11) Dehydration Status: Acute (12) ALVAREZ (dyspnea on exertion) Status: Acute (13) Hyperglycemia due to type 2 diabetes mellitus Status: Acute (14) Hypokalemia Status: Acute (15) Hypokalemia Status: Acute (16) Hypomagnesemia Status: Acute (17) Hypomagnesemia Status: Acute (18) Hypomagnesemia Status: Acute (19) Hyponatremia Status: Acute (20) Hypoxia Status: Acute (21) Lactic acidosis Status: Acute (22) Non-ST elevated myocardial infarction Status: Acute (23) Orthostatic hypotension Status: Acute (24) Sepsis Status: Acute (25) Sepsis Status: Acute (26) Shortness of breath Status: Acute (27) Tachypnea Status: Acute Past Medical History: COPD, chronic hypoxic respiratory failure on home O2, GERD, chronic diastolic CHF, DM2, recent NSTEMI in November 2017, and history of PE for which she is anticoagulated on Xarelto Past Surgical History: LEOLA/BSO, Lumpectomy, knee surgery x 2, cataract extraction Family History No pertient family history secondary to age Social History Smoking Status: Never Smoker Alcohol Use: none Drug Use: none Marital Status: Housing Status: lives with family Occupation Status: retired Allergies Coded Allergies: Rabies Vaccine (Verified Allergy, Severe, HIVES, 10/28/17) Ragweed (Verified Allergy, Unknown, UNKNOWN, 10/28/17) Tomato (Verified Allergy, Unknown, HIVES, 10/28/17) Current Medications Home Meds and Scripts Medications Dose Route/Sig Max Daily Dose Days Date Category Prednisone Unknown Strength Tab 1 Tab PO DAILY 01/05/18 Reported Lipitor (Atorvastatin Calcium) 40 Mg Tab 80 Mg PO DAILY 01/05/18 Reported Aspirin Ec (Aspirin) 81 Mg Tab 81 Mg PO DAILY 01/05/18 Reported Lopressor (Metoprolol Tartrate) 25 Mg Tab 25 Mg PO BID 30 12/11/17 Rx Lexapro (Escitalopram Oxalate) 20 Mg Tab 10 Mg PO DAILY 30 12/11/17 Rx Zantac (Ranitidine HCl) 150 Mg Tab 150 Mg PO DAILY 12/10/17 Reported Mirtazapine 15 Mg Tab 30 Mg PO HS 11/14/17 Rx Seroquel (Quetiapine Fumarate) 200 Mg Tab 200 Mg PO HS 11/14/17 Rx Oxygen Gas 2-3 Liters NA CONTINOUS 11/11/17 Reported Miralax (Polyethylene Glycol 3350) 1 Pow Pow 17 Gm PO DAILY PRN 11/11/17 Reported Duoneb (Ipratropium-Albuterol) 3 Ml Nebu 1 Treatment INH Q4WA PRN 11/11/17 Reported Humulin N (Insulin Human NPH) 100 Units/Ml Susp 20 Units SC QAM 10/28/17 Reported Daliresp (Roflumilast) 500 Mcg Tab 500 Mcg PO DAILY 30 08/12/17 Rx Pulmicort Respules 0.5MG/2ML (Budesonide) 0.5 Mg/2 Ml Nebu 0.5 Mg NEB BID 06/19/17 Reported Brovana (Arformoterol Tartrate) 15 Mcg/2 Ml Neb 15 Mcg NEB BID 06/19/17 Reported Albuterol Sulfate (Albuterol Sulf) 2.5 Mg/3 Ml Nebu 2.5 Mg NEB Q4H PRN 06/19/17 Reported Xarelto (Rivaroxaban) 20 Mg Tab 20 Mg PO QAM 04/15/17 Reported Glucophage (Metformin Hcl) 1,000 Mg Tab 1,000 Mg PO BID 04/15/17 Reported Vitamin D 400 Iu (Cholecalciferol) 400 Unit Cap 400 Inter.unit PO QAM 04/15/17 Reported Rohit-24 (Theophylline) 400 Mg Capcr 400 Mg PO QAM 04/15/17 Reported Synthroid (Levothyroxine Sodium) 25 Mcg Tab 25 Mcg PO QAM 09/21/16 Reported Spiriva Handihaler (Tiotropium [place]) 30 Puff/540 Mcg Aerp 1 Cap INH DAILY 09/21/16 Reported Singulair (Montelukast Sodium) 10 Mg Tab 10 Mg PO HS 09/21/16 Reported Oyster Shell Calcium + D (Calcium Carbonate-Cholecalcife) 1 Tab Tab 1 Tab PO QAM 09/21/16 Reported Meloxicam 7.5 Mg Tab 7.5 Mg PO DAILY 09/21/16 Reported Klor-Con M20 (Potassium Chloride) 20 Meq Tabcr 20 Meq PO BID 09/21/16 Reported Flonase Allergy Relief (Fluticasone Propionate (Nasal)) 50 Mcg/Act Spr 1 Wells NANCY DAILY PRN 09/21/16 Reported Multi Vitamin with Iron (Multiple Vitamins W/ Iron) 1 Tab Tab 1 Tab PO QAM 09/21/16 Reported Clonazepam 0.5 Mg Tab 0.5 Mg PO Q12H PRN 09/21/16 Reported Review of Systems Constitutional: + fever, + chills, + fatigue Eyes: No problem reported Respiratory: + dyspnea on exertion Cardiac: No chest pain Abdomen: No pain, No nausea, No vomiting, No diarrhea, No constipation, No GI bleeding (all GI abnormalities have reportedly resolved ) Musculoskeletal: No joint pain Neuro: No problem reported Psych: No problem reported Skin: No problem reported Physical Exam Date Time Temp Pulse Resp B/P (MAP) Pulse Ox O2 Delivery O2 Flow Rate FiO2 01/06/18 08:15 Nasal Cannula 3.0 01/06/18 07:53 37.6 85 16 125/66 (85) 98 Nasal Cannula 2.0 01/06/18 07:09 91 20 99 Nasal Cannula 3.0 01/06/18 04:00 95 Nasal Cannula 3.0 01/06/18 03:46 37.1 109 20 130/72 (91) 93 Nasal Cannula 3.0 01/06/18 02:03 93 20 98 Nasal Cannula 3.0 01/06/18 01:50 37.7 95 21 160/71 99 Nasal Cannula 3.0 01/06/18 01:25 01/06/18 01:00 99 18 144/62 97 Nasal Cannula 3.0 01/06/18 00:36 99 18 148/71 99 Nasal Cannula 3.0 01/06/18 00:00 100 18 149/73 99 Nasal Cannula 3.0 01/05/18 23:18 97 18 148/90 99 Nasal Cannula 3.0 01/05/18 22:40 110 18 168/85 99 Nasal Cannula 3.0 01/05/18 21:48 98 Nasal Cannula 3.0 01/05/18 21:31 120 01/05/18 21:21 37.5 129 28 127/93 98 Nasal Cannula 3.0 General Appearance: WD/WN, no apparent distress Eyes: normal inspection, PERRL ENT: hearing grossly normal Respiratory/Chest: lungs clear, normal breath sounds Cardiovascular: regular rate, rhythm, + systolic murmur Abdomen: normal bowel sounds, non tender, soft Extremities: non-tender Neurologic/Psych: alert, oriented x 3 Skin: normal color Laboratory Results Last 24 Hours Test 01/05/18 21:35 01/05/18 21:45 01/05/18 22:25 01/05/18 22:28 White Blood Count 21.30 K/uL Red Blood Count 3.95 M/uL Hemoglobin 9.7 g/dL Hematocrit 30.1 % Mean Corpuscular Volume 76.2 fL Mean Corpuscular Hemoglobin 24.6 pg Mean Corpuscular Hemoglobin Concent 32.2 g/dl Platelet Count 638 K/uL Mean Platelet Volume 8.1 fL Neutrophils (%) (Auto) 85.5 % Lymphocytes (%) (Auto) 7.2 % Monocytes (%) (Auto) 6.7 % Eosinophils (%) (Auto) 0.1 % Basophils (%) (Auto) 0.1 % Neutrophils # (Auto) 18.20 K/uL Lymphocytes # (Auto) 1.54 K/uL Monocytes # (Auto) 1.42 K/uL Eosinophils # (Auto) 0.03 K/uL Basophils # (Auto) 0.02 K/uL RDW Standard Deviation 50.7 fL RDW Coefficient of Variation 17.9 % Immature Granulocyte % (Auto) 0.4 % Immature Granulocyte # (Auto) 0.09 K/uL Sodium Level 128 mmol/L Potassium Level 2.3 mmol/L Chloride Level 80 mmol/L Carbon Dioxide Level 35 mmol/L Anion Gap 13.0 mmol/L Blood Urea Nitrogen 26 mg/dl Creatinine 1.39 mg/dl Est Creatinine Clear Calc Drug Dose 36.7 ml/min Estimated GFR () 43.5 Estimated GFR (Non- 37.5 BUN/Creatinine Ratio 18.3 Random Glucose 183 mg/dl Calcium Level 9.8 mg/dl Magnesium Level 1.1 mg/dl Total Bilirubin 0.8 mg/dl Aspartate Amino Transf (AST/SGOT) 24 U/L Alanine Aminotransferase (ALT/SGPT) 24 U/L Alkaline Phosphatase 156 U/L Troponin I < 0.015 ng/ml Total Protein 7.9 gm/dl Albumin 2.8 gm/dl Globulin 5.1 gm/dl Albumin/Globulin Ratio 0.6 Procalcitonin 0.62 ng/ml Gastric Fluid pH 2 Gastric Fluid Occult Blood POS Prothrombin Time 12.1 SECONDS Prothromb Time International Ratio 1.2 Activated Partial Thromboplast Time 28.8 SECONDS Partial Thromboplastin Ratio 1.1 Bedside Lactic Acid Venous 3.26 mmol/L Test 01/06/18 00:47 01/06/18 01:06 01/06/18 04:17 01/06/18 06:09 Hemoglobin 8.2 g/dL 7.6 g/dL Hematocrit 25.6 % 23.9 % Urine Color YELLOW Urine Appearance CLEAR Urine pH 5.0 Urine Specific [place] 1.018 Urine Protein NEG Urine Glucose (UA) NEG Urine Ketones 1+ Urine Occult Blood NEG Urine Nitrite NEG Urine Bilirubin NEG Urine Urobilinogen NEG Urine Leukocyte Esterase SMALL Urine WBC (Auto) 5-10 /hpf Urine RBC (Auto) 0-4 /hpf Urine Hyaline Casts (Auto) >30 /lpf Urine Epithelial Cells (Auto) 10-20 /lpf Urine Bacteria (Auto) NEG Urine Pathogenic Casts 0-3 GRANULAR CASTS /lpf Potassium Level 2.9 mmol/L Magnesium Level 1.8 mg/dl Bedside Glucose 174 mg/dl Test 01/06/18 09:19 Impression Patient is a 72 year old female who presents with fevers, abdominal discomfort, nausea & vomiting. She has significant leukocytosis, electrolyte deficiencies, and anemia with an H/H of 7.6/23.9. Plan 1) Continue Protonix infusion at present. 2) Continue to monitor GI symptoms and monitor for further GI bleeding. 3) Agree with obtaining abdominal US to reassess possible gallbladder abnormalities noted on CT scan. 4) Sepsis work-up, electrolyte replacement, and supportive care per primary team. 5) Would refrain from proceeding with endoscopic evaluation at the present time , but will continue to monitor & reassess her clinical course. Thank you for allowing us to participate in the care of this patient. If you should have any further questions or concerns, do not hesitate to contact us. Agree with CHARLENE Jackson as above Abd: Soft, NT, ND, +BS Advance to clear liquid diet as tolerated RUQ US Continue current therapy including Protonix gtt.
[2018-01-06 09:48] LABS: HEMATOCRIT 22.6 % (37-47); HEMOGLOBIN 7.3 g/dL (12.0-16.0)
[2018-01-06 10:11] LABS: CREATININE 0.95 mg/dl (0.60-1.20); POTASSIUM 2.7 mmol/L (3.5-5.1)
[2018-01-06] MEDS ORDERED: MAGNESIUM SULFATE 1GM / D5W 100 ML IV ONE (11:00)
[2018-01-06 12:35] LABS: HEMOGLOBIN 7.4 g/dL (12.0-16.0); MEAN CELL VOLUME 76.4 fL (80-100); MEAN CORPUSCULAR HEMOGLOBIN 24.6 pg (25-34); MEAN CORPUSCULAR HGB CONC 32.2 g/dl (32-36); MEAN PLATELET VOLUME 7.8 fL (7.4-10.4); PLATELET COUNT 425 K/uL (130-400); RED CELL DISTRIBUTION WIDTH CV 18.3 % (11.5-14.5); RED CELL DISTRIBUTION WIDTH SD 51.5 fL (36.4-46.3); WHITE BLOOD COUNT 14.48 K/uL (4.8-10.8)
--- NOTE | 2018-01-06 15:28 | DIAGNOSTIC IMAGING REPORT ---
L HAND MIN 3 VIEWS ROUTINE CLINICAL HISTORY: L Thumb Erythema/Pain/Swelling COMPARISON: None. DISCUSSION: No acute fractures or dislocations are visualized. A venous catheter is visualized distal radial level. There are mild osteoarthritic changes present at the level the first carpometacarpal joint and first metacarpal phalangeal joint. There are no erosive or destructive changes. IMPRESSION: 1. Mild degenerative change 2. No acute fractures 3. No evidence of erosive disease Electronically signed by: Hang Moses M.D. 01/06/2018 3:27 PM Dictated Date/Time: 01/06/2018 3:26 PM
[2018-01-06] MEDS: ACETAMINOPHEN 325 MG TAB PO PRN (16:39)
--- NOTE | 2018-01-06 19:10 | Hospitalist Progress Note ---
Hospitalist Progress Note Date of Service Jan 06, 2018. (Marivel Magana PA-C) Subjective Pt evaluation today including: conversation w/ patient, physical exam, chart review, lab review, review of studies, review of inpatient medication list Patient seen and evaluated. Reports feeling better since admission. Hemoglobin has slowly trended down and is being transfused 2 units and will watch for volume overload. Continues with intermittent RUQ pain. Reports epistaxis which may be cause of hematemesis? Complaining of L thumb erythema, edema, and pain but states this is improving over the past could days. Reports the R thumb was painful a couple weeks ago. Denies H/O gout. Reports she is on steroids at home but didn't know the dose. Discussed with her pharmacy with her permission and she was prescribed Prednisone 20 mg x 14 days on 12/28. These steroids could explain her significant leukocytosis. However is having a low-grade temp during hospitalization. Denies feeling fevered at since admission. WBC is trending down though and will continue to monitor. U/S GB will be obtained but could hold of Abx at this time. Constitutional: No fever, No chills ENT: + unusual epistaxis Respiratory: + shortness of breath (chronic - reports this feels baseline) Cardiovascular: No chest pain Abdomen: + pain, No nausea, No vomiting, No diarrhea, No constipation, No GI bleeding Musculoskeletal: No calf pain Female : No dysuria Heme: No abnormal bleeding/bruising (Marivel Magana, PA-C) Medications Current Inpatient Medications Medications (Trade) Dose Ordered Sig/Lulú Route Start Time Stop Time Status Last Admin Dose Admin Acetaminophen (Tylenol Tab) 650 mg Q4H PRN PO 01/05/18 23:15 02/04/18 23:14 01/06/18 16:39 650 MG Al Hydrox/Mg Hydrox/Simethicone (Maalox Max Susp) 15 ml Q4H PRN PO 01/05/18 23:15 02/04/18 23:14 Magnesium Hydroxide (Milk Of Magnesia Susp) 30 ml Q12H PRN PO 01/05/18 23:15 02/04/18 23:14 Ondansetron HCl (Zofran Inj) 4 mg Q6H PRN IV 01/05/18 23:15 02/04/18 23:14 Polyethylene (Miralax Powder Packet) 17 gm DAILY PRN PO 01/05/18 23:15 02/04/18 23:14 Potassium Chloride/Dextrose/ Sod Cl 1,000 ml @ 100 mls/hr Q10H IV 01/06/18 02:15 02/05/18 02:14 01/06/18 12:49 100 MLS/HR Pantoprazole Sodium 40 mg/ Dextrose 110 ml @ 20 mls/hr Q5H IV 01/06/18 04:00 02/05/18 03:59 01/06/18 16:32 20 MLS/HR Atorvastatin Calcium (Lipitor Tab) 80 mg DAILY PO 01/06/18 09:00 02/05/18 08:59 01/06/18 08:53 80 MG Cholecalciferol (Vitamin D Tab) 400 inter.unit QAM PO 01/06/18 09:00 02/05/18 08:59 01/06/18 08:58 400 INTER.UNIT Clonazepam (Klonopin Tab) 0.5 mg Q12H PRN PO 01/05/18 23:15 02/04/18 23:14 Escitalopram Oxalate (Lexapro Tab) 10 mg DAILY PO 01/06/18 09:00 02/05/18 08:59 01/06/18 08:53 10 MG Levothyroxine Sodium (Synthroid Tab) 25 mcg DAILYBB PO 01/06/18 06:00 02/05/18 05:59 01/06/18 05:56 25 MCG Metoprolol Tartrate (Lopressor Tab) 25 mg BID PO 01/06/18 09:00 02/05/18 08:59 01/06/18 08:54 25 MG Albuterol/ Ipratropium (Duoneb) 3 ml QIDR INH 01/06/18 08:00 02/05/18 07:59 01/06/18 15:14 3 ML Insulin Aspart (novoLOG ASPART) SLIDING SCALE G... Q6 SC 01/06/18 06:00 02/05/18 05:59 01/06/18 12:49 2 UNITS Arformoterol Tartrate (Brovana 15MCG/ 2ML Neb Soln) 15 mcg BIDR INH 01/06/18 08:00 02/05/18 07:59 01/06/18 07:08 15 MCG Budesonide (Pulmicort Respules 0.5MG/ 2ML Neb Soln) 0.5 mg BIDR INH 01/06/18 08:00 02/05/18 07:59 01/06/18 07:09 0.5 MG Quetiapine Fumarate (seroQUEL TAB) 200 mg HS PO 01/06/18 21:00 02/05/18 20:59 Roflumilast (Daliresp Tab) 500 mcg DAILY PO 01/06/18 09:00 02/05/18 08:59 01/06/18 08:52 500 MCG Tiotropium [place] (Spiriva Handihaler Inhaler) 1 puff DAILY INH 01/06/18 09:00 02/05/18 08:59 01/06/18 08:52 1 PUFF Mirtazapine (Remeron Tab) 30 mg HS PO 01/06/18 21:00 02/05/18 20:59 Glucose (Glucose 40% Gel) 15-30 GRAMS 15 GRAMS... UD PRN PO 01/06/18 04:30 02/05/18 04:29 Glucose (Glucose Chew Tab) 4-8 Tablets 4 Tabl... UD PRN PO 01/06/18 04:30 02/05/18 04:29 Dextrose (Dextrose 50% 50ML Syringe) 25-50ML OF 50% DW IV FOR... UD PRN IV 01/06/18 04:30 02/05/18 04:29 Glucagon (Glucagon Inj) 1 mg UD PRN SQ 01/06/18 04:30 02/05/18 04:29 (Marivel Magana, BRIANC) Objective Vital Signs Date Time Temp Pulse Resp B/P (MAP) Pulse Ox O2 Delivery O2 Flow Rate FiO2 01/06/18 17:30 36.6 92 20 124/67 91 2.0 01/06/18 16:30 36.3 96 20 146/67 96 2.0 01/06/18 16:00 Nasal Cannula 2.0 01/06/18 15:30 37.5 83 16 121/72 99 2.0 01/06/18 15:14 80 20 95 Nasal Cannula 3.0 01/06/18 14:55 37.6 80 22 104/61 (75) 98 Nasal Cannula 3.0 01/06/18 14:35 37.7 82 18 114/67 99 2.0 01/06/18 12:30 Nasal Cannula 3.0 01/06/18 11:30 63 20 98 Nasal Cannula 3.0 01/06/18 11:27 37.5 75 20 124/74 (91) 98 Room Air 01/06/18 08:15 Nasal Cannula 3.0 01/06/18 08:00 Nasal Cannula 2.0 01/06/18 07:53 37.6 85 16 125/66 (85) 98 Nasal Cannula 2.0 01/06/18 07:09 91 20 99 Nasal Cannula 3.0 01/06/18 04:00 95 Nasal Cannula 3.0 01/06/18 03:46 37.1 109 20 130/72 (91) 93 Nasal Cannula 3.0 01/06/18 02:03 93 20 98 Nasal Cannula 3.0 01/06/18 01:50 37.7 95 21 160/71 99 Nasal Cannula 3.0 01/06/18 01:25 01/06/18 01:00 99 18 144/62 97 Nasal Cannula 3.0 01/06/18 00:36 99 18 148/71 99 Nasal Cannula 3.0 01/06/18 00:00 100 18 149/73 99 Nasal Cannula 3.0 01/05/18 23:18 97 18 148/90 99 Nasal Cannula 3.0 01/05/18 22:40 110 18 168/85 99 Nasal Cannula 3.0 01/05/18 21:48 98 Nasal Cannula 3.0 01/05/18 21:31 120 01/05/18 21:21 37.5 129 28 127/93 98 Nasal Cannula 3.0 (Marivel Magana, PA-C) Physical Exam General Appearance: no apparent distress Eyes: sclerae normal ENT: hearing grossly normal Neck: supple, no JVD, trachea midline Respiratory/Chest: no respiratory distress, no accessory muscle use, + decreased breath sounds Cardiovascular: regular rate, rhythm Abdomen: normal bowel sounds, soft, + tenderness (RUQ) Neurologic/Psychiatric: alert, oriented x 3 Skin: normal color, warm/dry (Marivel Magana, PA-C) Laboratory Results Last 24 Hours Test 01/05/18 21:35 01/05/18 21:45 01/05/18 22:25 01/05/18 22:28 White Blood Count 21.30 K/uL Red Blood Count 3.95 M/uL Hemoglobin 9.7 g/dL Hematocrit 30.1 % Mean Corpuscular Volume 76.2 fL Mean Corpuscular Hemoglobin 24.6 pg Mean Corpuscular Hemoglobin Concent 32.2 g/dl Platelet Count 638 K/uL Mean Platelet Volume 8.1 fL Neutrophils (%) (Auto) 85.5 % Lymphocytes (%) (Auto) 7.2 % Monocytes (%) (Auto) 6.7 % Eosinophils (%) (Auto) 0.1 % Basophils (%) (Auto) 0.1 % Neutrophils # (Auto) 18.20 K/uL Lymphocytes # (Auto) 1.54 K/uL Monocytes # (Auto) 1.42 K/uL Eosinophils # (Auto) 0.03 K/uL Basophils # (Auto) 0.02 K/uL RDW Standard Deviation 50.7 fL RDW Coefficient of Variation 17.9 % Immature Granulocyte % (Auto) 0.4 % Immature Granulocyte # (Auto) 0.09 K/uL Sodium Level 128 mmol/L Potassium Level 2.3 mmol/L Chloride Level 80 mmol/L Carbon Dioxide Level 35 mmol/L Anion Gap 13.0 mmol/L Blood Urea Nitrogen 26 mg/dl Creatinine 1.39 mg/dl Est Creatinine Clear Calc Drug Dose 36.7 ml/min Estimated GFR () 43.5 Estimated GFR (Non- 37.5 BUN/Creatinine Ratio 18.3 Random Glucose 183 mg/dl Calcium Level 9.8 mg/dl Magnesium Level 1.1 mg/dl Total Bilirubin 0.8 mg/dl Aspartate Amino Transf (AST/SGOT) 24 U/L Alanine Aminotransferase (ALT/SGPT) 24 U/L Alkaline Phosphatase 156 U/L Troponin I < 0.015 ng/ml Total Protein 7.9 gm/dl Albumin 2.8 gm/dl Globulin 5.1 gm/dl Albumin/Globulin Ratio 0.6 Procalcitonin 0.62 ng/ml Gastric Fluid pH 2 Gastric Fluid Occult Blood POS Prothrombin Time 12.1 SECONDS Prothromb Time International Ratio 1.2 Activated Partial Thromboplast Time 28.8 SECONDS Partial Thromboplastin Ratio 1.1 Bedside Lactic Acid Venous 3.26 mmol/L Test 01/06/18 00:47 01/06/18 01:06 01/06/18 04:17 01/06/18 06:09 Hemoglobin 8.2 g/dL 7.6 g/dL Hematocrit 25.6 % 23.9 % Urine Color YELLOW Urine Appearance CLEAR Urine pH 5.0 Urine Specific [place] 1.018 Urine Protein NEG Urine Glucose (UA) NEG Urine Ketones 1+ Urine Occult Blood NEG Urine Nitrite NEG Urine Bilirubin NEG Urine Urobilinogen NEG Urine Leukocyte Esterase SMALL Urine WBC (Auto) 5-10 /hpf Urine RBC (Auto) 0-4 /hpf Urine Hyaline Casts (Auto) >30 /lpf Urine Epithelial Cells (Auto) 10-20 /lpf Urine Bacteria (Auto) NEG Urine Pathogenic Casts 0-3 GRANULAR CASTS /lpf Potassium Level 2.9 mmol/L Magnesium Level 1.8 mg/dl Bedside Glucose 174 mg/dl Test 01/06/18 09:29 01/06/18 12:28 01/06/18 12:47 01/06/18 16:00 Hemoglobin 7.3 g/dL 7.4 g/dL Hematocrit 22.6 % 23.0 % Sodium Level 131 mmol/L Potassium Level 2.7 mmol/L Chloride Level 93 mmol/L Carbon Dioxide Level 30 mmol/L Anion Gap 8.0 mmol/L Blood Urea Nitrogen 19 mg/dl Creatinine 0.95 mg/dl Est Creatinine Clear Calc Drug Dose 53.2 ml/min Estimated GFR () 68.9 Estimated GFR (Non- 59.4 BUN/Creatinine Ratio 19.9 Random Glucose 153 mg/dl Calcium Level 8.0 mg/dl Magnesium Level 1.7 mg/dl White Blood Count 14.48 K/uL Red Blood Count 3.01 M/uL Mean Corpuscular Volume 76.4 fL Mean Corpuscular Hemoglobin 24.6 pg Mean Corpuscular Hemoglobin Concent 32.2 g/dl RDW Standard Deviation 51.5 fL RDW Coefficient of Variation 18.3 % Platelet Count 425 K/uL Mean Platelet Volume 7.8 fL Bedside Glucose 214 mg/dl Test 01/06/18 16:57 01/06/18 18:00 Bedside Glucose 340 mg/dl (Marivel Magana, PA-C) Assessment and Plan 72 yo F with COPD,Chronic hypoxic resp failure on home O2, GERD, Chronic Diastolic CHF, T2DM, recurrent epistaxis, history of PE's on Xarelto presenting with n/v, hematemsis, Right sided abdominal tenderness Hematemesis with Acute Blood Loss Anemia: Upper GI Bleed vs Posterior Nose Bleed with Emesis on Xarelto: - Emesis has stopped at this time but Hgb did trend down - transfused 2 units on 01/06 and will have recheck after transfusion; will obtain F/U CXR to assess volume overload as fluids necessary for electrolyte adjustments but at risk for volume overload due to CHF - Xarelto currently on hold - Protonix gtt - GI following - appreciate recommendations - plan as above with no EGD at current time Abdominal Pain: - CT with findings of distended GB and will obtain U/S to further assess - Given GI complaints will check a Theophylline level to assess for toxicity even though normally mild GI symptoms would occur Fevers and Leukocytosis: - No direct indication for an infectious process - patient is on Prednisone 20 mg daily since 12/28 which could easily explain the leukocytosis; Having low- grade fevers (only 99 F) during hospital stay and will need to further assess but will hold Abx at this time Fluid and Electrolytes: - Continue to monitor electrolytes - slowly improving - K improving to 2.7 and mag up to 1.7 - will replete as necessary - Changed from D5 given hyperglycemia to NSS + 20 mEq KCl at 100 mL/hr L Thumb Erythema and Edema: - Tenderness to palpation and warm to touch - possible gout vs pseudogout but could not technically R/O septic joint - XR of hand without significant findings - Does report this has been improving which home steroids may be the reasoning for this Chronic Hypoxic Respiratory Failure 2/2 COPD without Exacerbation: Baseline 2-3 L NC - Reporting feeling about baseline from a respiratory standpoint - May hold steroids at least today while assessing GI complaints but may need to continue - currently no signs of adrenal insufficiency from such but if hypotension occurs should stress dose - Confirmed with her pharmacy she is currently on Prednisone 20 mg x 14 days - does not appear that she is on chronic steroids however has required multiple tapers because of her advanced COPD - Duonebs LULÚ; Brovana BID; Pulmicort BID; Singulair 10 mg HS; Daliresp 500 mcg daily; Theophylline 400 mg daily; Spiriva 1 puff daily CAD with NSTEMI: - ASA on hold given bleed - Atorvastatin 80 mg daily; Lopressor 25 mg BID Depression/Anxiety: STABLE - Lexapro 10 mg daily; Klonopin 0m5 mg BID PRN; Remeron 30 mg HS; Seroquel 200 mg HS T2DM: - Having some hyperglycemia and will adjust fluids now that she is on clear diet - Continue SSI and monitor BSGs H/O PE and Ovarian CA: - Holding Xarelto at this time OA: - Hold Meloxicam currently and use Tylenol DVT Prophylaxis: SCDs Code Status: FULL RESUSCITATION Disposition: PT/OT evaluations Continued [facility] stay due to: multiple IV medications needed Discharge planning: uncertain (Marivel Magana, PA-C) Attending Attestation - Pt seen/examined, chart reviewed, care plan d/w LOLA Magana. I agree w/ the pichardo components of her documentation. Pt c/o left thumb pain/swelling/redness, hematemesis at home for a few days ( blood was bright red, not coffee-ground), 2 weeks of intermittent nosebleeds with bleeding going posteriorly into the throat, and stomach pain. Has been on prednisone for about 2 months for her COPD. Tele stable overnight. low grade fever, VSS otherwise gen - nad, laying flat comfortably neck - no JVD heart - RRR lungs - CTA b/l abd - soft, ND, tender epigastric region ext - no peripheral edema musculo - left thumb - synovitis PIP joint with swelling/tenderness/redness; MCP joint also mildly inflamed A/P: 1. acute blood loss anemia - either 2nd to posterior nosebleeds vs upper GI in origin 2. severe hypokalemia 3. severe hypomagnesemia 4. abdominal pain 5. fever with +blood culture for GPC 6. acute synovitis of left thumb replace K, replace mag Tx 2 units PRBCs; may need lasix afterward given her chronic diastolic CHF RUQ u/s, r/o cholecystitis GI consult due to #1 PPI drip vanco IV while awaiting further information on #5 x-rays left hand, sed rate, uric acid level patient technically not on chronic prednisone (has had prednisone courses for her COPD) and will hold off on stress steroids at this time hold xarelto due to #1 complicated clinical picture Gualberto Landrum MD (Gualberto Landrum MD)
[2018-01-06] MEDS ORDERED: NURSING VERBAL MED ORDER ONE (19:15)
--- NOTE | 2018-01-06 20:49 | DIAGNOSTIC IMAGING REPORT ---
CHEST ONE VIEW PORTABLE CLINICAL HISTORY: SOB; Assess Volume Overload COMPARISON STUDY: Chest radiograph January 05, 2018. FINDINGS: No pneumothorax or pleural effusion is noted. There is no consolidation. There is mild enlargement of the cardiac silhouette. No consolidation is identified. There has been interval development of pulmonary vascular congestion without overt pulmonary edema. IMPRESSION: Interval development of pulmonary vascular congestion without overt pulmonary edema. Electronically signed by: Rick Canchola M.D. 01/06/2018 8:48 PM Dictated Date/Time: 01/06/2018 8:47 PM
[2018-01-06] MEDS: NSS + 20MEQ KCL 1000ML 1,000 ML IV SCH (21:30)
[2018-01-06] MEDS: QUETIAPINE FUMARATE 200 MG TAB PO SCH (21:42)
[2018-01-06] MEDS: MIRTAZAPINE TAB 15 MG TAB PO SCH (21:42)
[2018-01-06] MEDS: MONTELUKAST SOD 10 MG TAB PO SCH (21:56)
[2018-01-06 22:59] LABS: HEMATOCRIT 28.9 % (37-47); HEMOGLOBIN 9.4 g/dL (12.0-16.0)
[2018-01-06 23:11] LABS: POTASSIUM 2.8 mmol/L (3.5-5.1)
[2018-01-06 23:21] LABS: URIC ACID 7.9 mg/dl (2.6-7.2)
[2018-01-06] MEDS ORDERED: POTASSIUM CHLORIDE 20 MEQ TABCR PO STA (23:58)
[2018-01-07] VITALS (12 sets, daily range): BP systolic 97–156; BP diastolic 58–83; PULSE 68–112; TEMP 36.4–37.4; O2SAT 88–98; Ht 160 cm; Wt 87.1 kg
[2018-01-07] MEDS ORDERED: POTASSIUM CHLORIDE 20 MEQ TABCR PO STA (00:13)
[2018-01-07] MEDS ORDERED: VANCOMYCIN CONSULT ACTIVE PRN (00:15)
[2018-01-07] MEDS: POTASSIUM CHLR 20 MEQ / WTR 20 MEQ IV SCH ×2 (00:50→02:15)
[2018-01-07] MEDS ORDERED: VANCOMYCIN IV 1,250 MG in SODIUM CHLORIDE 0.9% 250ML 250 ML IV ONE (01:00)
[2018-01-07] MEDS: ALBUT/IPRATROP 3MG/0.5MG NEB 3 ML VIAL INH SCH ×7 (01:11→22:11)
[2018-01-07] MEDS ORDERED: POTASSIUM CHLORIDE 20 MEQ TABCR PO ONE ×2 (04:00→18:15)
[2018-01-07] MEDS: PANTOprazole INJ 40 MG in DEXTROSE 5% 100ML 100 ML IV SCH ×5 (05:07→20:00)
[2018-01-07] MEDS: LEVOTHYROXINE 25 MCG TAB PO SCH (06:32)
[2018-01-07 06:51] LABS: BASO % 0.1 %; BASO ABS # 0.02 K/uL (0-0.2); EOS % 1.2 %; EOS ABS # 0.16 K/uL (0-0.5); HEMATOCRIT 29.3 % (37-47); HEMOGLOBIN 9.3 g/dL (12.0-16.0); IG# 0.03 K/uL (0.00-0.02); LYMPH % 7.7 %; LYMPH ABS # 1.06 K/uL (1.2-3.4); MEAN CELL VOLUME 79.2 fL (80-100); MEAN CORPUSCULAR HEMOGLOBIN 25.1 pg (25-34); MEAN CORPUSCULAR HGB CONC 31.7 g/dl (32-36); MEAN PLATELET VOLUME 7.9 fL (7.4-10.4); MONO % 6.2 %; MONO ABS # 0.85 K/uL (0.11-0.59); NEUT % 84.6 %; NEUT ABS # 11.59 K/uL (1.4-6.5); PLATELET COUNT 389 K/uL (130-400); RED CELL DISTRIBUTION WIDTH CV 17.6 % (11.5-14.5); RED CELL DISTRIBUTION WIDTH SD 50.5 fL (36.4-46.3); WHITE BLOOD COUNT 13.71 K/uL (4.8-10.8)
--- NOTE | 2018-01-07 07:23 | Clinical Documentation Query ---
CLINICAL DOCUMENTATION QUERY QUERY 1 OF 4 72 yo female admitted with WBC = 21, HR = 129, Resp = 28 and Temp = 37.7. SIRS may be indicated by 2 or more of the following; however, consider the entire clinical scenario... Temp < 96.8*F/36*C or > 100.4*F/38*C Resps > 20 breaths/min Pulse > 90 bpm PaCO2 <32 mmHg WBC > 12K or < 4K or Bands > 10% In your clinical opinion is this patient being managed for: ( ) Systemic inflammatory response syndrome (SIRS) ( ) Not Agree ( x ) Other explanation of clinical findings (Please Explain; if no explanation given this is considered a no response.) - Sepsis 2/2 S. Aureus Bacteremia ( ) Unable to determine ( ) Need to Discuss (Please call CDS via extension or [employer]. If no interaction occurs this is considered a no response.) The medical record reflects the following clinical findings, treatment, and risk factors. Clinical Indicators: As above Treatment: IV Vancomycin, IV hydration, telemetry Risk Factors: Age, COPD, GI bleed QUERY 2 OF 4 AMI and the "4 weeks" Reference Medicare defines an acute FL as one which has occurred within four (4) weeks of admission. The physician may render an opinion regarding a "possible" or "probable" FL based on the patient's history of symptoms, EKG changes and/or other diagnostic evidence. "Within four weeks" must be explicitly documented-- terminology such as "recent" and "remote" is not sufficient. Despite the intentions of many physicians, the documentation of "Acute Coronary Syndrome" will not capture the diagnosis of an Acute Myocardial Infarction. In coding language, "ACS" is considered an acute but unspecified form of ischemic heart disease and likely does not capture the SOI or ROM intended by the physician. *If the clinical evidence suggests a diagnosis of acute myocardial infarction, document acute myocardial infarction. *And remember, an FL is considered "acute" even if the event occurred 4 weeks prior to the encounter Patient was diagnosed with NSTEMI December 10, 2017. In your clinical opinion is this patient being managed for: ( x ) NSTEMI December 10, 2017 ( ) Not Agree ( ) Other explanation of clinical findings (Please Explain; if no explanation given this is considered a no response.) ( ) Unable to determine ( ) Need to Discuss (Please call CDS via extension or [employer]. If no interaction occurs, this is considered a no response.) QUERY 3 OF 4 Patient's initial Na = 128. In your clinical opinion is this patient being managed for: ( x ) Hyponatremia ( ) Not Agree ( ) Other explanation of clinical findings (Please Explain; if no explanation given, this is considered a no response.) ( ) Unable to determine ( ) Need to Discuss (Please call CDS via extension or [employer]. If no interaction Occurs, this is considered a no response.) The medical record reflects the following clinical findings, treatment, and risk factors. Clinical Indicators: As above Treatment: IV hydration, electrolyte monitor, telemetry Risk Factors: Age, NSTEMI QUERY 4 OF 4 Patient's initial creatinine was 1.39 and trended down to 0.95. Baseline creatinine on 12/13/17 was 0.63. In your clinical opinion is this patient being managed for: ( x ) Acute kidney failure, resolved ( ) Not Agree ( ) Other explanation of clinical findings (Please Explain; if no explanation given, this would be considered a no response.) ( ) Unable to determine ( ) Need to Discuss (Please call CDS via extension or [employer]. If no interaction occurs this is considered a no response.) The medical record reflects the following clinical findings, treatment, and risk factors. Clinical Indicators: As above Treatment: IV hydration, serial PRPs Risk Factors: Electrolyte imbalance, SIRS Please clarify and document your clinical opinion in the progress notes and discharge summary. Terms such as "probable", "suspected", "likely", "questionable", "possible", or "still to be ruled out" are acceptable. IF IN AGREEMENT, YOU MUST DOCUMENT ABOVE DIAGNOSTIC STATEMENT IN DAILY PROGRESS NOTES AND DISCHARGE SUMMARY. This document is not part of the patient's record. Thank You, Rosaura Patel RN [phone]
[2018-01-07] MEDS: ARFORMOTEROL TART 15MCG/2ML VIAL INH SCH ×2 (07:26→19:02)
[2018-01-07] MEDS: BUDESONIDE 0.5 MG/2 ML VIAL (PULMICORT) INH SCH ×2 (07:26→19:02)
[2018-01-07 07:33] LABS: ALBUMIN 2.1 gm/dl (3.4-5.0); CALCIUM 7.7 mg/dl (8.5-10.1); CREATININE 0.71 mg/dl (0.60-1.20); POTASSIUM 3.4 mmol/L (3.5-5.1); TOTAL PROTEIN 5.7 gm/dl (6.4-8.2)
--- NOTE | 2018-01-07 08:53 | Pharmacy Progress Note ---
Pharmacy Antibiotic Consult Date of Service: Jan 07, 2018. Pharmacy Dosing Scope Pharmacy is consulted to initiate Vancomycin IV dosing therapy, order appropriate labs and adjust drug dose/frequency. Subjective The patient is a 72 year old female admitted on Jan 06, 2018 at 00:01. Objective Height (Feet): 5 Height (Inches): 3.00 Weight (Kilograms): 84.400 Lab Results (24hrs): Test 01/06/18 09:29 01/06/18 12:28 01/06/18 20:30 01/06/18 22:36 Sodium Level 131 mmol/L (136-145) Chloride Level 93 mmol/L (98-107) Carbon Dioxide Level 30 mmol/L (21-32) Anion Gap 8.0 mmol/L (3-11) Blood Urea Nitrogen 19 mg/dl (7-18) Creatinine 0.95 mg/dl (0.60-1.20) Est Creatinine Clear Calc Drug Dose 53.2 ml/min Estimated GFR () 68.9 Estimated GFR (Non- 59.4 BUN/Creatinine Ratio 19.9 (10-20) Random Glucose 153 mg/dl (70-99) Calcium Level 8.0 mg/dl (8.5-10.1) Magnesium Level 1.7 mg/dl (1.8-2.4) White Blood Count 14.48 K/uL (4.8-10.8) Red Blood Count 3.01 M/uL (4.2-5.4) Mean Corpuscular Volume 76.4 fL (80-100) Mean Corpuscular Hemoglobin 24.6 pg (25-34) Mean Corpuscular Hemoglobin Concent 32.2 g/dl (32-36) RDW Standard Deviation 51.5 fL (36.4-46.3) RDW Coefficient of Variation 18.3 % (11.5-14.5) Platelet Count 425 K/uL (130-400) Mean Platelet Volume 7.8 fL (7.4-10.4) Bedside Glucose 197 mg/dl (70-90) Erythrocyte Sedimentation Rate 11 mm/hr (0-21) Test 01/06/18 22:48 01/07/18 06:31 01/07/18 06:45 Hemoglobin 9.4 g/dL (12.0-16.0) 9.3 g/dL (12.0-16.0) Hematocrit 28.9 % (37-47) 29.3 % (37-47) Potassium Level 2.8 mmol/L (3.5-5.1) 3.4 mmol/L (3.5-5.1) Uric Acid 7.9 mg/dl (2.6-7.2) Magnesium Level 2.0 mg/dl (1.8-2.4) White Blood Count 13.71 K/uL (4.8-10.8) Red Blood Count 3.70 M/uL (4.2-5.4) Mean Corpuscular Volume 79.2 fL (80-100) Mean Corpuscular Hemoglobin 25.1 pg (25-34) Mean Corpuscular Hemoglobin Concent 31.7 g/dl (32-36) Platelet Count 389 K/uL (130-400) Mean Platelet Volume 7.9 fL (7.4-10.4) Neutrophils (%) (Auto) 84.6 % Lymphocytes (%) (Auto) 7.7 % Monocytes (%) (Auto) 6.2 % Eosinophils (%) (Auto) 1.2 % Basophils (%) (Auto) 0.1 % Neutrophils # (Auto) 11.59 K/uL (1.4-6.5) Lymphocytes # (Auto) 1.06 K/uL (1.2-3.4) Monocytes # (Auto) 0.85 K/uL (0.11-0.59) Eosinophils # (Auto) 0.16 K/uL (0-0.5) Basophils # (Auto) 0.02 K/uL (0-0.2) RDW Standard Deviation 50.5 fL (36.4-46.3) RDW Coefficient of Variation 17.6 % (11.5-14.5) Immature Granulocyte % (Auto) 0.2 % Immature Granulocyte # (Auto) 0.03 K/uL (0.00-0.02) Sodium Level 137 mmol/L (136-145) Chloride Level 103 mmol/L (98-107) Carbon Dioxide Level 28 mmol/L (21-32) Anion Gap 6.0 mmol/L (3-11) Blood Urea Nitrogen 10 mg/dl (7-18) Creatinine 0.71 mg/dl (0.60-1.20) Est Creatinine Clear Calc Drug Dose 72.6 ml/min Estimated GFR () 97.9 Estimated GFR (Non- 84.5 BUN/Creatinine Ratio 14.1 (10-20) Random Glucose 141 mg/dl (70-99) Calcium Level 7.7 mg/dl (8.5-10.1) Total Bilirubin 0.8 mg/dl (0.2-1) Aspartate Amino Transf (AST/SGOT) 18 U/L (15-37) Alanine Aminotransferase (ALT/SGPT) 19 U/L (12-78) Alkaline Phosphatase 118 U/L (45-117) Total Protein 5.7 gm/dl (6.4-8.2) Albumin 2.1 gm/dl (3.4-5.0) Globulin 3.6 gm/dl (2.5-4.0) Albumin/Globulin Ratio 0.6 (0.9-2) Theophylline Level 5 mcg/ml (10-20) Bedside Glucose 147 mg/dl (70-90) Assessment & Plan Assessment Pharmacy consulted to dose vancomycin for confirmed bacteremia. * 2/2 blood cultures growing gram + cocci * Renal function at baseline * PMH of COPD, recurrent epistaxis, recent hematemesis, hx of PE * Estimated pk parameters: Ke~0.064 T1/2~10.8 hours Plan Vancomycin * Pt received 1700mg IV in the ER on 01/06 * Vancomycin 1250mg (15.4mg/kg) x 1 was ordered on 01/07 @0100. * Ordered a maintenance dose of 1250 mg IV q 14 hours * Vanco trough ordered for 01/09 @0330 at fourth maintenance dose. Pharmacy will continue to follow and will adjust dose/frequency as necessary. Thank you
--- NOTE | 2018-01-07 08:53 | DIAGNOSTIC IMAGING REPORT ---
ABDOMINAL ULTRASOUND, RIGHT UPPER QUADRANT HISTORY: RUQ Abdominal Pain; F/U to CT Abd/Pelvis. COMPARISON: Abdomen and pelvis CT 01/06/2018. FINDINGS: Pancreas: The pancreatic tail is obscured by overlying bowel gas. The remaining portions of the pancreas are within normal limits. Liver: The liver is echogenic consistent with fatty change. Gallbladder: Mildly distended. The gallbladder is partially filled with sludge. No gallbladder wall thickening. No gallstones identified. CBD: 3 mm. Right kidney: No hydronephrosis. IMPRESSION: 1. The gallbladder is mildly distended and partially filled with sludge. No gallbladder wall thickening. 2. Hepatic steatosis. Electronically signed by: Charly Cabrera M.D. 01/07/2018 7:21 AM Dictated Date/Time: 01/07/2018 7:19 AM
[2018-01-07] MEDS: METOPROLOL TARTRATE 25 MG TAB PO SCH ×2 (08:59→20:35)
[2018-01-07] MEDS: ATORVASTATIN 40 MG TAB PO SCH (08:59)
[2018-01-07] MEDS: CHOLECALCIFEROL 400 INTER.UNIT TAB PO SCH (08:59)
[2018-01-07] MEDS: ROFLUMILAST 500 MCG TAB PO SCH (09:00)
[2018-01-07] MEDS: INSULIN ASPART 100 UNITS/ML 3 ML PEN SC SCH ×4 (09:00→20:42)
[2018-01-07] MEDS ORDERED: NURSING VERBAL MED ORDER ONE (09:00)
[2018-01-07] MEDS: TIOTROPIUM BROMIDE 5 PUFF/90 MCG INH INH SCH (09:01)
[2018-01-07] MEDS: ESCITALOPRAM OXALATE 10 MG TAB PO SCH (09:02)
[2018-01-07] MEDS: NSS + 20MEQ KCL 1000ML 1,000 ML IV SCH (09:02)
[2018-01-07] MEDS: THEOPHYLLINE 400MG CONTROLLED REL TAB PO SCH (09:02)
[2018-01-07] MEDS ORDERED: POTASSIUM CHLORIDE 10 MEQ TABCR PO ONE (09:15)
--- NOTE | 2018-01-07 09:48 | Gastroenterology Progress Note ---
Progress Note Date of Service: Jan 07, 2018 Subjective Pt evaluation today including: conversation w/ patient, physical exam, lab review, review of studies Patient is a 72 yo female who is hospitalized with anemia and hematemesis on Xarelto therapy for PE. She reports she is feeling better today. It appears that her home medications have been clarified and she was indeed taking Meloxicam. Of note, she was also on Prednisone which can explain her degree of leukocytosis. Her H/H is now stable at 9.3/29.3 s/p 2 units PRBCs. She denies vomiting. She denies further bleeding. She denies abdominal pain. She reports similar symptoms when she had gastric ulcers in the 1970s. She is now agreeable to having an EGD. She recalls having this procedure many years ago. Review of Systems Constitutional: No problem reported Eyes: No problem reported Respiratory: + dyspnea on exertion, No cough Cardiac: No chest pain Abdomen: No pain, No nausea, No vomiting, No diarrhea Musculoskeletal: No joint pain Medications Current Inpatient Medications Medications (Trade) Dose Ordered Sig/Lulú Route Start Time Stop Time Status Last Admin Dose Admin Acetaminophen (Tylenol Tab) 650 mg Q4H PRN PO 01/05/18 23:15 02/04/18 23:14 01/06/18 16:39 650 MG Al Hydrox/Mg Hydrox/Simethicone (Maalox Max Susp) 15 ml Q4H PRN PO 01/05/18 23:15 02/04/18 23:14 Magnesium Hydroxide (Milk Of Magnesia Susp) 30 ml Q12H PRN PO 01/05/18 23:15 02/04/18 23:14 Ondansetron HCl (Zofran Inj) 4 mg Q6H PRN IV 01/05/18 23:15 02/04/18 23:14 Polyethylene (Miralax Powder Packet) 17 gm DAILY PRN PO 01/05/18 23:15 02/04/18 23:14 Pantoprazole Sodium 40 mg/ Dextrose 110 ml @ 20 mls/hr Q5H IV 01/06/18 04:00 02/05/18 03:59 01/07/18 09:02 20 MLS/HR Atorvastatin Calcium (Lipitor Tab) 80 mg DAILY PO 01/06/18 09:00 02/05/18 08:59 01/07/18 08:59 80 MG Cholecalciferol (Vitamin D Tab) 400 inter.unit QAM PO 01/06/18 09:00 02/05/18 08:59 01/07/18 08:59 400 INTER.UNIT Clonazepam (Klonopin Tab) 0.5 mg Q12H PRN PO 01/05/18 23:15 02/04/18 23:14 Escitalopram Oxalate (Lexapro Tab) 10 mg DAILY PO 01/06/18 09:00 02/05/18 08:59 01/07/18 09:02 10 MG Levothyroxine Sodium (Synthroid Tab) 25 mcg DAILYBB PO 01/06/18 06:00 02/05/18 05:59 01/07/18 06:32 25 MCG Metoprolol Tartrate (Lopressor Tab) 25 mg BID PO 01/06/18 09:00 02/05/18 08:59 01/07/18 08:59 25 MG Albuterol/ Ipratropium (Duoneb) 3 ml QIDR INH 01/06/18 08:00 02/05/18 07:59 01/07/18 03:22 3 ML Arformoterol Tartrate (Brovana 15MCG/ 2ML Neb Soln) 15 mcg BIDR INH 01/06/18 08:00 02/05/18 07:59 01/07/18 07:26 15 MCG Budesonide (Pulmicort Respules 0.5MG/ 2ML Neb Soln) 0.5 mg BIDR INH 01/06/18 08:00 02/05/18 07:59 01/07/18 07:26 0.5 MG Quetiapine Fumarate (seroQUEL TAB) 200 mg HS PO 01/06/18 21:00 02/05/18 20:59 01/06/18 21:42 200 MG Roflumilast (Daliresp Tab) 500 mcg DAILY PO 01/06/18 09:00 02/05/18 08:59 01/07/18 09:00 500 MCG Tiotropium [place] (Spiriva Handihaler Inhaler) 1 puff DAILY INH 01/06/18 09:00 02/05/18 08:59 01/07/18 09:01 1 PUFF Mirtazapine (Remeron Tab) 30 mg HS PO 01/06/18 21:00 02/05/18 20:59 01/06/18 21:42 30 MG Glucose (Glucose 40% Gel) 15-30 GRAMS 15 GRAMS... UD PRN PO 01/06/18 04:30 02/05/18 04:29 Glucose (Glucose Chew Tab) 4-8 Tablets 4 Tabl... UD PRN PO 01/06/18 04:30 02/05/18 04:29 Dextrose (Dextrose 50% 50ML Syringe) 25-50ML OF 50% DW IV FOR... UD PRN IV 01/06/18 04:30 02/05/18 04:29 Glucagon (Glucagon Inj) 1 mg UD PRN SQ 01/06/18 04:30 02/05/18 04:29 Montelukast Sodium (Singulair Tab) 10 mg HS PO 01/06/18 21:00 02/05/18 20:59 01/06/18 21:56 10 MG Theophylline (Uniphyl Controlled Rel 24hr Tab) 400 mg QAM PO 01/07/18 09:00 02/06/18 08:59 01/07/18 09:02 400 MG Potassium Chloride/Sodium Chloride 1,000 ml @ 100 mls/hr Q10H IV 01/06/18 19:30 02/05/18 19:29 01/07/18 09:02 100 MLS/HR Insulin Aspart (novoLOG ASPART) SLIDING SCALE G... ACHS SC 01/06/18 21:00 02/05/18 20:59 01/07/18 09:00 5 UNITS Miscellaneous Information (Consult) 1 ea UD PRN N/A 01/07/18 00:15 02/06/18 00:14 Vancomycin HCl 1250 mg/Sodium Chloride 275 ml @ 125 mls/hr Q14H IV 01/07/18 10:00 01/20/18 23:59 Objective Vital Signs Date Time Temp Pulse Resp B/P (MAP) Pulse Ox O2 Delivery O2 Flow Rate FiO2 01/07/18 07:56 36.4 98 22 140/68 (92) 95 Nasal Cannula 2.0 01/07/18 07:26 100 20 95 Nasal Cannula 2.0 01/07/18 04:00 Nasal Cannula 2.0 01/07/18 03:45 37.4 89 20 149/81 (103) 96 Nasal Cannula 2.0 01/07/18 03:22 92 18 96 Nasal Cannula 2.0 01/07/18 01:11 77 18 88 Room Air 01/07/18 00:00 Nasal Cannula 2.0 01/06/18 23:40 36.7 61 18 106/61 (76) 98 Nasal Cannula 2.0 01/06/18 20:05 36.7 82 20 120/86 94 2.0 01/06/18 20:00 Nasal Cannula 2.0 01/06/18 19:05 37.7 83 20 118/72 98 2.0 01/06/18 19:04 79 18 97 Nasal Cannula 2.0 01/06/18 18:35 37.4 87 20 121/68 95 2.0 01/06/18 18:19 37.5 82 20 117/67 95 2.0 01/06/18 17:30 36.6 92 20 124/67 91 2.0 01/06/18 16:30 36.3 96 20 146/67 96 2.0 01/06/18 16:00 Nasal Cannula 2.0 01/06/18 15:30 37.5 83 16 121/72 99 2.0 01/06/18 15:14 80 20 95 Nasal Cannula 3.0 01/06/18 14:55 37.6 80 22 104/61 (75) 98 Nasal Cannula 3.0 01/06/18 14:35 37.7 82 18 114/67 99 2.0 01/06/18 12:30 Nasal Cannula 3.0 01/06/18 11:30 63 20 98 Nasal Cannula 3.0 01/06/18 11:27 37.5 75 20 124/74 (91) 98 Room Air Physical Exam General Appearance: WD/WN, no apparent distress Eyes: normal inspection, PERRL ENT: hearing grossly normal Respiratory/Chest: chest non-tender, normal breath sounds Cardiovascular: regular rate, rhythm Abdomen: normal bowel sounds, non tender, soft Extremities: non-tender Neurologic/Psych: alert, oriented x 3 Skin: normal color Laboratory Results Last 24 Hours Test 01/06/18 09:29 01/06/18 12:28 01/06/18 12:47 01/06/18 16:57 Hemoglobin 7.3 g/dL 7.4 g/dL Hematocrit 22.6 % 23.0 % Sodium Level 131 mmol/L Potassium Level 2.7 mmol/L Chloride Level 93 mmol/L Carbon Dioxide Level 30 mmol/L Anion Gap 8.0 mmol/L Blood Urea Nitrogen 19 mg/dl Creatinine 0.95 mg/dl Est Creatinine Clear Calc Drug Dose 53.2 ml/min Estimated GFR () 68.9 Estimated GFR (Non- 59.4 BUN/Creatinine Ratio 19.9 Random Glucose 153 mg/dl Calcium Level 8.0 mg/dl Magnesium Level 1.7 mg/dl White Blood Count 14.48 K/uL Red Blood Count 3.01 M/uL Mean Corpuscular Volume 76.4 fL Mean Corpuscular Hemoglobin 24.6 pg Mean Corpuscular Hemoglobin Concent 32.2 g/dl RDW Standard Deviation 51.5 fL RDW Coefficient of Variation 18.3 % Platelet Count 425 K/uL Mean Platelet Volume 7.8 fL Bedside Glucose 214 mg/dl 340 mg/dl Test 01/06/18 20:30 01/06/18 22:36 01/06/18 22:48 01/07/18 06:31 Bedside Glucose 197 mg/dl Erythrocyte Sedimentation Rate 11 mm/hr Hemoglobin 9.4 g/dL 9.3 g/dL Hematocrit 28.9 % 29.3 % Potassium Level 2.8 mmol/L 3.4 mmol/L Uric Acid 7.9 mg/dl Magnesium Level 2.0 mg/dl White Blood Count 13.71 K/uL Red Blood Count 3.70 M/uL Mean Corpuscular Volume 79.2 fL Mean Corpuscular Hemoglobin 25.1 pg Mean Corpuscular Hemoglobin Concent 31.7 g/dl Platelet Count 389 K/uL Mean Platelet Volume 7.9 fL Neutrophils (%) (Auto) 84.6 % Lymphocytes (%) (Auto) 7.7 % Monocytes (%) (Auto) 6.2 % Eosinophils (%) (Auto) 1.2 % Basophils (%) (Auto) 0.1 % Neutrophils # (Auto) 11.59 K/uL Lymphocytes # (Auto) 1.06 K/uL Monocytes # (Auto) 0.85 K/uL Eosinophils # (Auto) 0.16 K/uL Basophils # (Auto) 0.02 K/uL RDW Standard Deviation 50.5 fL RDW Coefficient of Variation 17.6 % Immature Granulocyte % (Auto) 0.2 % Immature Granulocyte # (Auto) 0.03 K/uL Sodium Level 137 mmol/L Chloride Level 103 mmol/L Carbon Dioxide Level 28 mmol/L Anion Gap 6.0 mmol/L Blood Urea Nitrogen 10 mg/dl Creatinine 0.71 mg/dl Est Creatinine Clear Calc Drug Dose 72.6 ml/min Estimated GFR () 97.9 Estimated GFR (Non- 84.5 BUN/Creatinine Ratio 14.1 Random Glucose 141 mg/dl Calcium Level 7.7 mg/dl Total Bilirubin 0.8 mg/dl Aspartate Amino Transf (AST/SGOT) 18 U/L Alanine Aminotransferase (ALT/SGPT) 19 U/L Alkaline Phosphatase 118 U/L Total Protein 5.7 gm/dl Albumin 2.1 gm/dl Globulin 3.6 gm/dl Albumin/Globulin Ratio 0.6 Theophylline Level 5 mcg/ml Test 01/07/18 06:45 Bedside Glucose 147 mg/dl Assessment and Plan Patient is a 72 yo female with hematemesis & anemia. 1) Continue Protonix infusion. 2) NPO now for EGD late afternoon 01/07. 3) Continue to monitor H/H and for further signs of bleeding. 4) US results noted a mildly distended gallbladder partially full of sludge. Could consider eventual surgical opinion. Thank you for allowing us to participate in the care of this patient. If you should have further questions or concerns, do not hesitate to contact us. Agree with CHARLENE Jackson as above Abd: Soft, NT, ND, +BS Continue current therapy EGD today
[2018-01-07] MEDS: VANCOMYCIN IV 1,250 MG in SODIUM CHLORIDE 0.9% 250ML 250 ML IV SCH (10:27)
[2018-01-07] MEDS: ONDANSETRON INJ 2 MG/ML 2 ML VIAL IV PRN (11:42)
[2018-01-07 13:07] LABS: HEMATOCRIT 30.4 % (37-47); HEMOGLOBIN 9.8 g/dL (12.0-16.0)
[2018-01-07 13:30] LABS: CALCIUM 8.1 mg/dl (8.5-10.1); CREATININE 0.69 mg/dl (0.60-1.20)
[2018-01-07] MEDS ORDERED: PROPOFOL IV EMULSION 10 MG/ML 20 ML VIAL IV ONE (16:31)
[2018-01-07] MEDS ORDERED: LIDOCAINE HCL 2% 2 ML VIAL (20MG/ML) ONE (16:31)
--- NOTE | 2018-01-07 16:39 | GI REPORT ---
Patient Name: Mini Clemons Procedure Date: 01/07/2018 4:09 PM Date of : 1945 Admit Type: Inpatient Age: 72 Gender: Female Attending MD: Iglesia Villagomez DO Procedure: Upper GI endoscopy Providers: Iglesia Villagomez DO Referring MD: Gualberto Landrum Indications: Acute post hemorrhagic anemia, Melena Medicines: Monitored Anesthesia Care Complications: No immediate complications. Estimated Blood Loss: Estimated blood loss: none. Procedure: Pre-Anesthesia Assessment: - Prior to the procedure, a History and Physical was performed, and patient medications and allergies were reviewed. The patient's tolerance of previous anesthesia was also reviewed. The risks and benefits of the procedure and the sedation options and risks were discussed with the patient. All questions were answered, and informed consent was obtained. Prior Anticoagulants: The patient last took aspirin 3 days and Xarelto (rivaroxaban) 3 days prior to the procedure. ASA Grade Assessment: III - A patient with severe systemic disease. After reviewing the risks and benefits, the patient was deemed in satisfactory condition to undergo the procedure. After obtaining informed consent, the endoscope was passed under direct vision. Throughout the procedure, the patient's blood pressure, pulse, and oxygen saturations were monitored continuously. The Scope was introduced through the mouth, and advanced to the third part of duodenum. The upper GI endoscopy was accomplished without difficulty. The patient tolerated the procedure well. Findings: LA Grade B (one or more mucosal breaks greater than 5 mm, not extending between the tops of two mucosal folds) esophagitis with no bleeding was found. The stomach was normal. The examined duodenum was normal. Impression: - LA Grade B reflux esophagitis. - Normal stomach. - Normal examined duodenum. - No specimens collected. Recommendation: - Return patient to [facility] for ongoing care. - Advance diet as tolerated. - Continue present medications. Iglesia Villagomez DO 01/07/2018 4:38:52 PM This report has been signed electronically. Note Initiated On: 01/07/2018 4:09 PM Number of Addenda: 0 I attest to the content of the Intraoperative Record and orders documented therein, exceptions below {[id number]}
--- NOTE | 2018-01-07 16:42 | Anesthesiology Progress Note ---
Anesthesia Post Op Note Date & Time Jan 07, 2018 at 16:41 Vital Signs Pain Intensity: 3.0 Vital Signs Past 12 Hours Date Time Temp Pulse Resp B/P (MAP) Pulse Ox O2 Delivery O2 Flow Rate FiO2 01/07/18 16:36 92 16 140/57 (84) 100 Oxymask 5 01/07/18 16:06 38 94 20 125/67 (86) 98 Nasal Cannula 3 01/07/18 16:00 Nasal Cannula 2.0 01/07/18 14:58 97 22 94 Nasal Cannula 2.0 01/07/18 12:00 Nasal Cannula 2.0 01/07/18 11:20 75 18 97 Nasal Cannula 2.0 01/07/18 11:11 37.3 68 22 97/58 (71) 96 Nasal Cannula 2.0 01/07/18 08:00 Nasal Cannula 2.0 01/07/18 07:56 36.4 98 22 140/68 (92) 95 Nasal Cannula 2.0 01/07/18 07:26 100 20 95 Nasal Cannula 2.0 Notes Mental Status: alert / awake / arousable, participated in evaluation Pt Amnestic to Procedure: Yes Nausea / Vomiting: adequately controlled Pain: adequately controlled Airway Patency, RR, SpO2: stable & adequate BP & HR: stable & adequate Hydration State: stable & adequate Anesthetic Complications: no major complications apparent
--- NOTE | 2018-01-07 17:36 | Hospitalist Progress Note ---
Hospitalist Progress Note Date of Service Jan 07, 2018. (Marivel Magana PA-C) Subjective Pt evaluation today including: conversation w/ patient, physical exam, chart review, lab review, review of studies, review of inpatient medication list Patient seen and evaluated. Hemoglobin now stable with transfusion yesterday. Patient's breathing a little worse today but states she feels like she needs a breathing treatment. Some congestion on imaging but does not appear overtly volume overloaded.. EGD this afternoon with reflux esophagitis with no signs of bleeding Only complaint is of back pain she reports from laying in bed. Denies abdominal pain or N/V BCx positive for S. Aureus x 2. Repeats this afternoon. On Vanc currently. No direct source identified L thumb remains edematous and painful. Not getting worse though. Constitutional: No fever, No chills Respiratory: + shortness of breath, No cough Cardiovascular: No chest pain Abdomen: No pain, No nausea, No vomiting, No diarrhea, No constipation Musculoskeletal: + muscle pain (back pain), No swelling Female : No dysuria Heme: No abnormal bleeding/bruising (Marivel Magana, LOLA-C) Medications Current Inpatient Medications Medications (Trade) Dose Ordered Sig/Lulú Route Start Time Stop Time Status Last Admin Dose Admin Acetaminophen (Tylenol Tab) 650 mg Q4H PRN PO 01/05/18 23:15 02/04/18 23:14 01/06/18 16:39 650 MG Al Hydrox/Mg Hydrox/Simethicone (Maalox Max Susp) 15 ml Q4H PRN PO 01/05/18 23:15 02/04/18 23:14 Magnesium Hydroxide (Milk Of Magnesia Susp) 30 ml Q12H PRN PO 01/05/18 23:15 02/04/18 23:14 Ondansetron HCl (Zofran Inj) 4 mg Q6H PRN IV 01/05/18 23:15 02/04/18 23:14 01/07/18 11:42 4 MG Polyethylene (Miralax Powder Packet) 17 gm DAILY PRN PO 01/05/18 23:15 02/04/18 23:14 Pantoprazole Sodium 40 mg/ Dextrose 110 ml @ 20 mls/hr Q5H IV 01/06/18 04:00 02/05/18 03:59 01/07/18 14:05 20 MLS/HR Atorvastatin Calcium (Lipitor Tab) 80 mg DAILY PO 01/06/18 09:00 02/05/18 08:59 01/07/18 08:59 80 MG Cholecalciferol (Vitamin D Tab) 400 inter.unit QAM PO 01/06/18 09:00 02/05/18 08:59 01/07/18 08:59 400 INTER.UNIT Clonazepam (Klonopin Tab) 0.5 mg Q12H PRN PO 01/05/18 23:15 02/04/18 23:14 Escitalopram Oxalate (Lexapro Tab) 10 mg DAILY PO 01/06/18 09:00 02/05/18 08:59 01/07/18 09:02 10 MG Levothyroxine Sodium (Synthroid Tab) 25 mcg DAILYBB PO 01/06/18 06:00 02/05/18 05:59 01/07/18 06:32 25 MCG Metoprolol Tartrate (Lopressor Tab) 25 mg BID PO 01/06/18 09:00 02/05/18 08:59 01/07/18 08:59 25 MG Albuterol/ Ipratropium (Duoneb) 3 ml QIDR INH 01/06/18 08:00 02/05/18 07:59 01/07/18 14:58 3 ML Arformoterol Tartrate (Brovana 15MCG/ 2ML Neb Soln) 15 mcg BIDR INH 01/06/18 08:00 02/05/18 07:59 01/07/18 07:26 15 MCG Budesonide (Pulmicort Respules 0.5MG/ 2ML Neb Soln) 0.5 mg BIDR INH 01/06/18 08:00 02/05/18 07:59 01/07/18 07:26 0.5 MG Quetiapine Fumarate (seroQUEL TAB) 200 mg HS PO 01/06/18 21:00 02/05/18 20:59 01/06/18 21:42 200 MG Roflumilast (Daliresp Tab) 500 mcg DAILY PO 01/06/18 09:00 02/05/18 08:59 01/07/18 09:00 500 MCG Tiotropium [place] (Spiriva Handihaler Inhaler) 1 puff DAILY INH 01/06/18 09:00 02/05/18 08:59 01/07/18 09:01 1 PUFF Mirtazapine (Remeron Tab) 30 mg HS PO 01/06/18 21:00 02/05/18 20:59 01/06/18 21:42 30 MG Glucose (Glucose 40% Gel) 15-30 GRAMS 15 GRAMS... UD PRN PO 01/06/18 04:30 02/05/18 04:29 Glucose (Glucose Chew Tab) 4-8 Tablets 4 Tabl... UD PRN PO 01/06/18 04:30 02/05/18 04:29 Dextrose (Dextrose 50% 50ML Syringe) 25-50ML OF 50% DW IV FOR... UD PRN IV 01/06/18 04:30 02/05/18 04:29 Glucagon (Glucagon Inj) 1 mg UD PRN SQ 01/06/18 04:30 02/05/18 04:29 Montelukast Sodium (Singulair Tab) 10 mg HS PO 01/06/18 21:00 02/05/18 20:59 01/06/18 21:56 10 MG Theophylline (Uniphyl Controlled Rel 24hr Tab) 400 mg QAM PO 01/07/18 09:00 02/06/18 08:59 01/07/18 09:02 400 MG Insulin Aspart (novoLOG ASPART) SLIDING SCALE G... ACHS SC 01/06/18 21:00 02/05/18 20:59 01/07/18 09:00 5 UNITS Miscellaneous Information (Consult) 1 ea UD PRN N/A 01/07/18 00:15 02/06/18 00:14 Vancomycin HCl 1250 mg/Sodium Chloride 275 ml @ 125 mls/hr Q14H IV 01/07/18 10:00 01/20/18 23:59 01/07/18 10:27 125 MLS/HR (Marivel Magana PA-C) Objective Vital Signs Date Time Temp Pulse Resp B/P (MAP) Pulse Ox O2 Delivery O2 Flow Rate FiO2 01/07/18 17:15 37.1 100 22 156/82 (106) 93 Nasal Cannula 2.0 01/07/18 16:50 93 18 140/57 (84) 96 Nasal Cannula 2 01/07/18 16:36 92 16 140/57 (84) 100 Oxymask 5 01/07/18 16:06 38 94 20 125/67 (86) 98 Nasal Cannula 3 01/07/18 16:00 Nasal Cannula 2.0 01/07/18 14:58 97 22 94 Nasal Cannula 2.0 01/07/18 12:00 Nasal Cannula 2.0 01/07/18 11:20 75 18 97 Nasal Cannula 2.0 01/07/18 11:11 37.3 68 22 97/58 (71) 96 Nasal Cannula 2.0 01/07/18 08:00 Nasal Cannula 2.0 01/07/18 07:56 36.4 98 22 140/68 (92) 95 Nasal Cannula 2.0 01/07/18 07:26 100 20 95 Nasal Cannula 2.0 01/07/18 04:00 Nasal Cannula 2.0 01/07/18 03:45 37.4 89 20 149/81 (103) 96 Nasal Cannula 2.0 01/07/18 03:22 92 18 96 Nasal Cannula 2.0 01/07/18 01:11 77 18 88 Room Air 01/07/18 00:00 Nasal Cannula 2.0 01/06/18 23:40 36.7 61 18 106/61 (76) 98 Nasal Cannula 2.0 01/06/18 20:05 36.7 82 20 120/86 94 2.0 01/06/18 20:00 Nasal Cannula 2.0 01/06/18 19:05 37.7 83 20 118/72 98 2.0 01/06/18 19:04 79 18 97 Nasal Cannula 2.0 01/06/18 18:35 37.4 87 20 121/68 95 2.0 01/06/18 18:19 37.5 82 20 117/67 95 2.0 01/06/18 17:30 36.6 92 20 124/67 91 2.0 (Marivel Magana, PA-C) Physical Exam General Appearance: no apparent distress Eyes: sclerae normal ENT: hearing grossly normal, + pertinent finding (mildly dry oral mucosa) Neck: supple, no JVD, trachea midline Respiratory/Chest: no respiratory distress, no accessory muscle use, + decreased breath sounds, + wheezing (scattered exp. wheeze) Cardiovascular: regular rate, rhythm Abdomen: normal bowel sounds, non tender, soft Extremities: no pedal edema Neurologic/Psychiatric: alert, oriented x 3 Skin: normal color, warm/dry (Marivel Magana, CYNDI) Laboratory Results Last 24 Hours Test 01/06/18 20:30 01/06/18 22:36 01/06/18 22:48 01/07/18 06:31 Bedside Glucose 197 mg/dl Erythrocyte Sedimentation Rate 11 mm/hr Hemoglobin 9.4 g/dL 9.3 g/dL Hematocrit 28.9 % 29.3 % Potassium Level 2.8 mmol/L 3.4 mmol/L Uric Acid 7.9 mg/dl Magnesium Level 2.0 mg/dl White Blood Count 13.71 K/uL Red Blood Count 3.70 M/uL Mean Corpuscular Volume 79.2 fL Mean Corpuscular Hemoglobin 25.1 pg Mean Corpuscular Hemoglobin Concent 31.7 g/dl Platelet Count 389 K/uL Mean Platelet Volume 7.9 fL Neutrophils (%) (Auto) 84.6 % Lymphocytes (%) (Auto) 7.7 % Monocytes (%) (Auto) 6.2 % Eosinophils (%) (Auto) 1.2 % Basophils (%) (Auto) 0.1 % Neutrophils # (Auto) 11.59 K/uL Lymphocytes # (Auto) 1.06 K/uL Monocytes # (Auto) 0.85 K/uL Eosinophils # (Auto) 0.16 K/uL Basophils # (Auto) 0.02 K/uL RDW Standard Deviation 50.5 fL RDW Coefficient of Variation 17.6 % Immature Granulocyte % (Auto) 0.2 % Immature Granulocyte # (Auto) 0.03 K/uL Sodium Level 137 mmol/L Chloride Level 103 mmol/L Carbon Dioxide Level 28 mmol/L Anion Gap 6.0 mmol/L Blood Urea Nitrogen 10 mg/dl Creatinine 0.71 mg/dl Est Creatinine Clear Calc Drug Dose 72.6 ml/min Estimated GFR () 97.9 Estimated GFR (Non- 84.5 BUN/Creatinine Ratio 14.1 Random Glucose 141 mg/dl Calcium Level 7.7 mg/dl Total Bilirubin 0.8 mg/dl Aspartate Amino Transf (AST/SGOT) 18 U/L Alanine Aminotransferase (ALT/SGPT) 19 U/L Alkaline Phosphatase 118 U/L Total Protein 5.7 gm/dl Albumin 2.1 gm/dl Globulin 3.6 gm/dl Albumin/Globulin Ratio 0.6 Theophylline Level 5 mcg/ml Test 01/07/18 06:45 01/07/18 11:05 01/07/18 12:41 01/07/18 17:13 Bedside Glucose 147 mg/dl 108 mg/dl 126 mg/dl Hemoglobin 9.8 g/dL Hematocrit 30.4 % Sodium Level 136 mmol/L Potassium Level 4.0 mmol/L Chloride Level 105 mmol/L Carbon Dioxide Level 27 mmol/L Anion Gap 4.0 mmol/L Blood Urea Nitrogen 8 mg/dl Creatinine 0.69 mg/dl Est Creatinine Clear Calc Drug Dose 74.7 ml/min Estimated GFR () 100.1 Estimated GFR (Non- 86.4 BUN/Creatinine Ratio 12.2 Random Glucose 97 mg/dl Calcium Level 8.1 mg/dl Magnesium Level 1.8 mg/dl (Marivel Magana, PA-C) Assessment and Plan 72 yo F with COPD,Chronic hypoxic resp failure on home O2, GERD, Chronic Diastolic CHF, T2DM, recurrent epistaxis, history of PE's on Xarelto presenting with n/v, hematemsis, Right sided abdominal tenderness Hematemesis with Acute Blood Loss Anemia: Upper GI Bleed vs Posterior Nose Bleed with Emesis on Xarelto: STABLE - Transfused 2 units on 01/07 with stabilization of Hgb - EGD on 01/07 - evidence of reflux esophagitis without bleeding - Xarelto remains on hold - Protonix gtt - GI following - appreciate recommendations Abdominal Pain: RESOLVED - CT with findings of distended GB and U/S confirming mild distention with sludge but no wall thickening Sepsis 2/2 S. Aureus Bacteremia: - Initial source is unclear - will repeat BCx to assess sterility and obtain echo to assess valves but endocarditis unlikely - Cx central line tip - Continue Vancomycin and await sensitivities Fluid and Electrolytes - Hypokalemia, Hypomagnesemia, and Hyponatremia - Likely from Dehydration: RESOLVING - Continue to monitor electrolytes and replete as necessary L Thumb Erythema and Edema: - Tenderness to palpation and warm to touch - possible gout vs pseudogout but could not technically R/O septic joint - XR of hand without significant findings - Does report this has been improving which home steroids may be the reasoning for this - Will resume Prednisone 10 mg daily for this and monitor given GI complaints DARI: RESOLVED - Continue to monitor renal function - this was likely in the setting of pre- renal changes/dehydration Chronic Hypoxic Respiratory Failure 2/2 COPD without Exacerbation: Baseline 2-3 L NC - Duonebs LULÚ; Brovana BID; Pulmicort BID; Singulair 10 mg HS; Daliresp 500 mcg daily; Theophylline 400 mg daily; Spiriva 1 puff daily CAD with NSTEMI (December 10, 2017): - ASA on hold given bleed - Atorvastatin 80 mg daily; Lopressor 25 mg BID Depression/Anxiety: STABLE - Lexapro 10 mg daily; Klonopin 0.5 mg BID PRN; Remeron 30 mg HS; Seroquel 200 mg HS T2DM: - Sugars more controlled today and appropriate - Continue SSI and monitor BSGs H/O PE and Ovarian CA: - Holding Xarelto at this time OA: - Hold Meloxicam currently and use Tylenol DVT Prophylaxis: SCDs Code Status: FULL RESUSCITATION Disposition: PT/OT evaluations Continued [facility] stay due to: multiple IV medications needed Discharge planning: uncertain (Marivel Magana, PA-C) Attending Attestation - Pt seen/examined, chart reviewed, care plan d/w LOLA Magana. I agree w/ the pichardo components of her documentation except there is no evidence of NSTEMI during this admission (has past h/o ME). Pt reports "sweats" and subjective fevers for "months." Never took temps at home. Also with severe lumbar back pain for about 1 month, maybe more. Pain radiates into right buttock and down right leg towards the ankle/foot. Had back pain about 1 year ago that was similar but this is much worse. Left thumb pain/swelling is improved. She is very short of breath today. No nosebleeding. Tm 38 today; VSS gen - visibly dyspneic, orthopneic neck - probable JVD heart - RRR lungs - diffuse wheezing b/l, crackles bases, tachypnea when she moves in the bed abd - soft, ND, NT back - VERY tender to palpation over l-spine and paraspinal region on right ext - no peripheral edema musculo - left thumb - synovitis PIP joint with swelling/tenderness/redness but all improved today neuro - DTRs 2+ knee b/l; hip flexion 5/5 b/l; ankle flexion/extension 5/5 b/l blood cx's 2/2 + for staph aureus echo with ?nodule on tip of MV and AV A/P: 1. acute blood loss anemia - either 2nd to posterior nosebleed vs esophagitis - d/c PPI drip, change to po protonix BID. No further epistaxis. s/p 2 units PRBCs with stable H/H; cbc am. 2. severe hypokalemia - resolved 3. severe hypomagnesemia - resolved 4. abdominal pain - improved - RUQ u/s without signs of acute cholecystitis; due to esophagitis? 5. severe lumbar back pain with radicular symptoms of right leg - MRI l-spine w / contrast urgent - in light of #6 r/o diskitis, r/o abscess 6. staph aureus septicemia - repeat blood cx's x 2 sets today to ensure sterility; cont vanco. Source? urine and lungs appear clear. Uncertain if the left thumb could be source. Lumbar spine could be source. Endocarditis also possible. In light of echo findings today needs AARON; make NPO after MN tonight and consider consulting cardiology AM for such. Await MRI of back. Consider ortho consult to check the left thumb (x-rays of left thumb w/o gross abnormalities). Uric acid is high - could be contributing to thumb issue. 7. acute synovitis of left thumb - septic vs gouty - looks & feels better today with vancomycin. Consider ortho consult pending her MRI back - does this need aspiration?? 8. acute/chronic systolic/diastolic CHF - volume overload from blood and fluid last 48 hours; lasix 40mg IV x 1 now. cont holding xarelto due to #1 and probable need for procedure(s) complicated clinical picture Gualberto Landrum MD (Gualberto Landrum MD)
[2018-01-07] MEDS ORDERED: MAGNESIUM OXIDE 400 MG TAB PO ONE (18:15)
[2018-01-07] MEDS ORDERED: FUROSEMIDE INJ 40 MG in SYRINGE 0 ML IV ONE (18:15)
--- NOTE | 2018-01-07 18:36 | ECHOCARDIOGRAM REPORT ---
*NOTICE TO RECEIVING [employer]PUBL[employer] AGENCY This information is strictly Confidential and protected under [place] law. [place] law prohibits you from making any further disclosure of this information unless further disclosure is expressly permitted by the written consent of the person to whom it pertains or is authorized by law. A general authorization for the release of medical or other information is not sufficient for this purpose. Hospital accepts no responsibility if the information is made available to any other person, INCLUDING THE PATIENT. Interpretation Summary * Name: ROSA HASSAN Study Date: 01/07/2018 03:16 PM BP: 140/68 mmHg * Patient Location: .2T\S\E219\S\1 HR: 98 * : 1945 (M/d/yyyy) Gender: Female Height: 63 in * Age: 72 yrs Ethnicity: CA Weight: 186 lb * Ordering Physician: Marivel Magana * Referring Physician: Self, Referred * Performed By: Margaux Shafer RDCS * * Reason For Study: Endocarditis * BSA: 1.9 m2 * -- Conclusions -- * Limited 2D study to evaluate for endocarditis. * 1. Normal LV size and wall thickness * 2. Normal LV function. EF 55-60%. Abnormal septal motion. * 3. Normal RV size and function. * 4. Nodular thickening of tip of anterior leaflet of mitral valve--cannot exclude vegetation. * 5. Nodules thickening involving non coronary cusp of aortic valve--cannot exclude vegetation. * 6. Trivial pericardial effusion. Procedure Details * A two-dimensional transthoracic echocardiogram was performed. * A two-dimensional transthoracic echocardiogram, with color flow Doppler was performed. Left Ventricle * The left ventricle is grossly normal size. * There is normal left ventricular wall thickness. * Ejection Fraction = 55-60%. * Abnormal septal motion Right Ventricle * The right ventricle is grossly normal size. * The right ventricular systolic function is normal as assessed by tricuspid annular plane systolic excursion (TAPSE) (normal >1.5 cm). Atria * The left atrial size is normal. * Right atrial size is normal. Mitral Valve * A vegetation on the mitral valve cannot be excluded. * Nodular thickening of tip of anterior leaflet in cannot exclude vegetation * There is no mitral valve stenosis. * Significant mitral regurgitation is absent. Tricuspid Valve * The tricuspid valve is not well visualized. * There is no tricuspid valve vegetation. * Significant tricuspid regurgitation is absent. Aortic Valve * Cannot exclude aortic valvular vegetation. * Nodules thickening involving non coronary cusp, cannot rule out vegetation. * No hemodynamically significant valvular aortic stenosis. * There is no significant aortic regurgitation. Pulmonic Valve * The pulmonic valve is not well visualized. Pericardium/Pleural * Trivial pericardial effusion
[2018-01-07] MEDS: MIRTAZAPINE TAB 15 MG TAB PO SCH (20:35)
[2018-01-07] MEDS: QUETIAPINE FUMARATE 200 MG TAB PO SCH (20:35)
[2018-01-07] MEDS: MONTELUKAST SOD 10 MG TAB PO SCH (20:35)
[2018-01-07] MEDS: ACETAMINOPHEN 325 MG TAB PO PRN (20:36)
[2018-01-07] MEDS ORDERED: GADAVIST IV PRN (23:50)
[2018-01-08] VITALS (20 sets, daily range): BP systolic 72–166; BP diastolic 67–83; PULSE 72–91; TEMP 36.3–37.4; O2SAT 93–100
[2018-01-08] MEDS: PANTOprazole INJ 40 MG in DEXTROSE 5% 100ML 100 ML IV SCH (01:00)
[2018-01-08] MEDS: VANCOMYCIN IV 1,250 MG in SODIUM CHLORIDE 0.9% 250ML 250 ML IV SCH ×2 (01:02→14:35)
[2018-01-08] MEDS: ALBUT/IPRATROP 3MG/0.5MG NEB 3 ML VIAL INH SCH ×6 (03:21→19:34)
[2018-01-08] MEDS: LEVOTHYROXINE 25 MCG TAB PO SCH (06:09)
[2018-01-08 06:40] LABS: HEMATOCRIT 30.8 % (37-47); HEMOGLOBIN 9.7 g/dL (12.0-16.0); MEAN CELL VOLUME 80.4 fL (80-100); MEAN CORPUSCULAR HEMOGLOBIN 25.3 pg (25-34); MEAN CORPUSCULAR HGB CONC 31.5 g/dl (32-36); PLATELET COUNT 398 K/uL (130-400); RED CELL DISTRIBUTION WIDTH CV 18.1 % (11.5-14.5); RED CELL DISTRIBUTION WIDTH SD 53.5 fL (36.4-46.3); WHITE BLOOD COUNT 9.67 K/uL (4.8-10.8)
[2018-01-08] MEDS: INSULIN ASPART 100 UNITS/ML 3 ML PEN SC SCH ×4 (07:00→20:49)
[2018-01-08 07:10] LABS: CALCIUM 7.5 mg/dl (8.5-10.1); CREATININE 0.83 mg/dl (0.60-1.20); POTASSIUM 3.7 mmol/L (3.5-5.1)
[2018-01-08] MEDS: BUDESONIDE 0.5 MG/2 ML VIAL (PULMICORT) INH SCH ×2 (07:12→18:49)
[2018-01-08] MEDS: ARFORMOTEROL TART 15MCG/2ML VIAL INH SCH ×2 (07:12→18:49)
--- NOTE | 2018-01-08 08:03 | DIAGNOSTIC IMAGING REPORT ---
LUMBAR SPINE MRI WITH AND WITHOUT CONTRAST HISTORY: Low back Tenderness with Radiculopathy; Bacteremia - Abscess? TECHNIQUE: Multiplanar multisequence MRI of the lumbar spine was performed both before and after the intravenous administration of contrast. COMPARISON: None. FINDINGS: For the purpose of the report the L5-S1 disc space will be located on axial image 27 of 30. No fracture or subluxation within the lumbar spine. Mild disc space narrowing at L1-L2, L2-L3, L3-L4. Moderate to severe disc space narrowing L4-L5 and L5-S1. Small endplate osteophytes throughout the lumbar spine. The conus terminates at the L1 level. The distal thoracic spinal cord is intact. Mild presacral edema and enhancement. There is also mild edema and enhancement within the right erector spinae muscles throughout the lumbar spine. Best seen on image 7 of 17 on the sagittal views there appears to be a small peripheral enhancing fluid collection inferior to the right L5-S1 facet. This is best seen on sagittal image 7. This measures 1.7 x 1.0 cm and is suspicious for a soft tissue abscess. There is edema and enhancement within the subcutaneous soft tissues of the lower back. No abnormal enhancement within the disc spaces or vertebral bodies to suggest a discitis/osteomyelitis at this time. There is diffuse epidural enhancement from the L2 level through the proximal sacrum. The seen on image 9 of the sagittal sequences and 22 of 35 of the axial T1 postcontrast sequences there is a 2.4 x 1.2 x 0.8 cm peripherally enhancing fluid collection within the right posterior epidural space spanning the S1 and S2 levels. This is consistent with a epidural abscess. This results in mass effect along the right side of the sacral canal with severe sacral canal narrowing. There is also mass effect along the right S1-S2 nerve root at the neural foramen best seen on axial image 25 of 35. This is likely due to compression by the suspected epidural abscess. There is abnormal enhancement within the presacral space which extends into the right piriformis muscle. There is abnormal enhancement within the right common iliac and internal iliac veins consistent with enhancing thrombus. Abnormal appearance of the cauda equina which demonstrates small amount of mass effect posteriorly at the from the L2-L3 disc space level and extending inferiorly to the L4 level. However, there is no definite evidence for epidural abscess identified at this location. Therefore, this could represent clumping of nerve roots in the setting of an arachnoiditis. There are broad-based posterior disc bulges and ligamentum and facet hypertrophy at the L2-L3, L3-L4, and L4-L5 levels. These areas demonstrate mild central canal narrowing. There is also mild bilateral neural foraminal narrowing at these levels. IMPRESSION: 1. There is a 2.4 x 1.2 x 0.8 cm peripherally enhancing fluid collection within the right posterior epidural space spanning the S1 and S2 levels. This is consistent with a epidural abscess. This results in mass effect along the right side of the sacral canal with severe sacral canal narrowing. There is also mass effect along the right S1-S2 nerve root at the neural foramen resulting in severe compression, likely by the suspected epidural abscess. 2. There is abnormal enhancement within the presacral space which extends into the right piriformis muscle. There is abnormal enhancement within the right common iliac and internal iliac veins consistent with enhancing thrombus in the setting of a septic thrombophlebitis. 3. Abnormal appearance of the cauda equina which demonstrates small amount of mass effect posteriorly at the from the L2-L3 disc space level and extending inferiorly to the L4 level. However, there is no definite evidence for epidural abscess identified at this location. Therefore, this could represent clumping of nerve roots in the setting of an arachnoiditis. However, given the epidural abscess within the sacral canal, a developing abscess cannot be excluded. 4. Abnormal epidural enhancement extending from the L2 through the sacrum consistent with a meningitis. 5. Abnormal enhancement along the right erector spinae muscles also from the L2 level through the sacrum. There is a small peripheral enhancing fluid collection inferior to the right L5-S1 facet which measures 1.7 x 1.0 cm. This is consistent with a small soft tissue abscess. 6. These findings were discussed with Dr. Armstrong at 8:25 AM on 01/08/2018. Electronically signed by: Charly Cabrera M.D. 01/08/2018 8:25 AM Dictated Date/Time: 01/08/2018 7:18 AM
[2018-01-08] MEDS: TIOTROPIUM BROMIDE 5 PUFF/90 MCG INH INH SCH (08:05)
[2018-01-08] MEDS: ROFLUMILAST 500 MCG TAB PO SCH (08:06)
[2018-01-08] MEDS: ATORVASTATIN 40 MG TAB PO SCH (08:06)
[2018-01-08] MEDS: ESCITALOPRAM OXALATE 10 MG TAB PO SCH (08:06)
[2018-01-08] MEDS: PANTOprazole SOD 40 MG TAB PO SCH ×2 (08:07→21:00)
[2018-01-08] MEDS: METOPROLOL TARTRATE 25 MG TAB PO SCH ×2 (08:07→21:00)
[2018-01-08] MEDS: CHOLECALCIFEROL 400 INTER.UNIT TAB PO SCH (08:08)
[2018-01-08] MEDS: THEOPHYLLINE 400MG CONTROLLED REL TAB PO SCH (08:08)
[2018-01-08] MEDS ORDERED: MAGNESIUM SULFATE 1GM / D5W 100 ML IV STA (08:42)
[2018-01-08 09:13] LABS: PTT PATIENT 27.7 SECONDS (21.0-31.0)
--- NOTE | 2018-01-08 09:41 | Surgery Consultation ---
Consultation Date of Service Jan 08, 2018. (Jennifer Hopkins, CYNDI) Chief Complaint DVT, lumbar spine abscess (Jennifer Hopkins PA-C) History of Present Illness The patient is a 72 year old female with multiple medical problems, including HTN, COPD on oxygen, hx of DVT/PE, DMII, hypothyroidism, ovarian ca years ago, admitted with bacteremia and low back pain and found to have lumbar spine abscess, seen in consultation today for IVC filter insertion preoperatively. Pt with hx of DVT/PE in past, on chronic xarelto. Lumbar spine MRI performed yesterday demonstrates large abscess as well as iliac v thrombus which appears acute. Pt denies any c/o other than back pain, currently on pain medication. (Jennifer Hopkins, CYNDI) Vitals Vital Signs Past 12 Hours Date Time Temp Pulse Resp B/P (MAP) Pulse Ox O2 Delivery O2 Flow Rate FiO2 01/08/18 07:21 75 20 98 Nasal Cannula 2.0 01/08/18 07:20 36.9 78 24 119/75 (90) 98 Nasal Cannula 3.0 01/08/18 04:00 36.9 78 20 129/69 (89) 97 Nasal Cannula 2.0 01/08/18 04:00 Nasal Cannula 2.0 01/08/18 03:22 72 20 98 Nasal Cannula 2.0 01/08/18 00:20 36.8 80 20 115/67 (83) 97 Nasal Cannula 2.0 01/08/18 00:00 Nasal Cannula 2.0 01/07/18 22:11 78 20 98 Nasal Cannula 2.0 (Jennifer Hopkins, CYNDI) Allergies Coded Allergies: Rabies Vaccine (Verified Allergy, Severe, HIVES, 10/28/17) Ragweed (Verified Allergy, Unknown, UNKNOWN, 10/28/17) Tomato (Verified Allergy, Unknown, HIVES, 10/28/17) Home Medications Scheduled Arformoterol Tartrate (Brovana), 15 MCG NEB BID Aspirin (Aspirin Ec), 81 MG PO DAILY Atorvastatin (Lipitor), 80 MG PO DAILY Budesonide (Pulmicort Respules 0.5MG/2ML), 0.5 MG NEB BID Calcium Carbonate-Cholecalcife (Oyster Shell Calcium + D), 1 TAB PO QAM Cholecalciferol (Vitamin D 400 Iu), 400 INTER.UNIT PO QAM Escitalopram Oxalate (Lexapro), 10 MG PO DAILY Home O2 Therapy (Oxygen), 2-3 LITERS NA CONTINOUS Insulin Human NPH (Humulin N), 20 UNITS SC QAM Levothyroxine Sodium (Synthroid), 25 MCG PO QAM Meloxicam (Meloxicam), 7.5 MG PO DAILY Metformin Hcl (Glucophage), 1,000 MG PO BID Metoprolol Tartrate (Lopressor), 25 MG PO BID Mirtazapine (Mirtazapine), 30 MG PO HS Montelukast Sodium (Singulair), 10 MG PO HS Multiple Vitamins W/ Iron (Multi Vitamin with Iron), 1 TAB PO QAM Potassium Chloride (Klor-Con M20), 20 MEQ PO BID Prednisone (Prednisone), 1 TAB PO DAILY Quetiapine Fumarate (Seroquel), 200 MG PO HS Ranitidine (Zantac), 150 MG PO DAILY Rivaroxaban (Xarelto), 20 MG PO QAM Roflumilast (Daliresp), 500 MCG PO DAILY Theophylline (Rohit-24), 400 MG PO QAM Tiotropium [place] (Spiriva Handihaler), 1 CAP INH DAILY Scheduled PRN Albuterol Sulf (Albuterol Sulfate), 2.5 MG NEB Q4H PRN for SOB/Wheezing Clonazepam (Clonazepam), 0.5 MG PO Q12H PRN for Anxiety/Agitation Fluticasone Propionate (Nasal) (Flonase Allergy Relief), 1 SPRAY NANCY DAILY PRN for Nausea Ipratropium-Albuterol (Duoneb), 1 TREATMENT INH Q4WA PRN for SOB/Wheezing Polyethylene Glycol 3350 (Miralax), 17 GM PO DAILY PRN for Constipation Problem List Medical Problems: (1) Acid reflux (2) CHF (congestive heart failure) (3) COPD (chronic obstructive pulmonary disease) (4) COPD exacerbation (5) Diabetes (6) Elevated troponin (7) KATHLEEN (generalized anxiety disorder) (8) GERD (gastroesophageal reflux disease) (9) GI bleed (10) Hypoxia (11) Major depression, recurrent, full remission (12) Meningitis (13) Nausea & vomiting (14) Ovarian ca (15) Ovarian cancer (16) QT prolongation (17) Syncope (Jennifer Hopkins PA-C) Surgical / Medical History Hx Cardiac Surgery: No Hx Abdominal Surgery: Yes (HYSTERECTOMY AND BILATERAL OOPHRECTOMY.) Hx Cancer Surgery: Yes Hx Thoracic Surgery: No Hx Orthopedic: Yes (L KNEE ARTHROPLASTY AND REPLACEMENT PER PATIENT.) Hx Urinary Tract Surgery: No Past Medical/Surgical History: Cancer, COPD, Diabetes, High Cholesterol, Hypertension, Pulmonary Emboli (Jennifer Hopkins PA-C) Family History No pertient family history secondary to age + HTN (Jennifer Hopkins PA-C) No pertient family history secondary to age (Kavin Matamoros M.D.) Social History Smoking Status: Never Smoker Hx Tobacco Use In Past Year?: No (QUIT 5 YEARS AGO) Hx Alcohol Use - Type & Amnt: No Hx Substance Use -Type & Amnt: No (Jennifer Hopkins, CYNDI) Review of Systems Constitutional: + malaise, No fever ENMT: No sore throat Respiratory: + cough, + ALVAREZ (chronic), No short of breath Cardiovascular: No chest pain, No palpitations Gastrointestinal: No abdominal pain, No nausea, No vomiting Musculoskeletal: + back pain Neurologic: No dizziness, No headache (Jennifer Hopkins, BRIANC) Physical Exam Constitutional: General Apperance: well-nourished, well-developed Level of Distress: NAD, chronically ill Psychiatric: Mental Status: active & alert, normal mood, normal affect Orientation: oriented except where noted, to time, to place, to person Memory: recent memory normal, remote memory normal Head: normocephalic, atraumatic Eyes: EOM: EOMI ENMT: normal ENT inspection, hearing grossly normal Neck: supple, trachea midline Lungs: Auscultation: decreased breath sounds Cardiovascular: Apical Impulse: not displaced Heart Auscultation: RRR, no gallops Peripheral Pulses: Pulses: full and equal, in all extremities except if noted Bruits: none appreciated Carotid Pulse: normal on the left, normal on the right Radial Pulse: normal on the left, normal on the right Posterior Tibialis Pulse: decreased on the left, decreased on the right Dorsalis Pedis Pulse: decreased on the left, decreased on the right Abdomen: Bowel Sounds: normal Inspection & Palpation: soft, non-distended, no tenderness, guarding & rebound Musculoskeletal: normal strength (5/5 throughout), normal tone Extremities: Upper Right: no cyanosis, no edema, no varicosities Upper Left: no cyanosis, no edema, no varicosities Lower Right: no cyanosis, no edema, no varicosities Lower Left: no cyanosis, no edema, no varicosities Neurologic: Cranial Nerves: grossly intact (Jennifer Hopkins, PA-C) Assessment and Plan ASSESSMENT and PLAN: iliac v thrombus spinal abscess Pt discussed with Dr Matamoros, recommends IVC filter insertion in OR today. Recommendations and procedure discussed with pt, she is agreeable. Advised we would reassess in 3 months to determine whether pt candidate for IVC filter removal. (Jennifer Hopkins, PA-C) Patient was seen, examined, and chart reviewed. Agree with exam and treatment plan of the Vascular PA. Patient with contraindication for anticoagulation due to pending surgery. Appears to have an acute/subacute clot in her right iliac vein Filter is recommended. I have discussed the risks options and benefits of the procedure with the patient. The patient understands the risks options and benefits and agrees to the procedure. (Kavin Matamoros M.D.)
--- NOTE | 2018-01-08 10:15 | Hospitalist Progress Note ---
Hospitalist Progress Note Date of Service Jan 08, 2018. (Marivel Magana PA-C) Subjective Pt evaluation today including: conversation w/ patient, physical exam, chart review, lab review, review of studies, conversation w/ review consultant (Jennifer Cleary PA-C and Dr. De Jesus), review of inpatient medication list Patient seen and evaluated. Complaining of back pain and L thumb pain. Extensive developments overnight. MRI confirming abscess in R posterior epidural space around S1-S2. Reports she has had back pain "a long time" but couldn't quantify but states just recently it has been more bothersome. MRI shows mass effect and severe compression. Evidence of R common iliac and internal iliac veins consistent with septic thrombophlebitis. Possible developing abscess vs nerve clumping in L2-L3. Evidence of meningitis extending from L2 through sacrum. Small soft tissue abscess R erector spinae. Second set of blood cultures positive for gram + cocci. Discussed with Jennifer Hopkins with plans for IVC filter this afternoon. Talked to Dr. De Jesus and Dr. Coombs with plans to add Nafcillin [address] Armstrong discussed with Dr. Valverde, Dr. Lawton, and Dr. Collins Had a long conversation with the patient about options. Given her advanced COPD , respiratory compromise and difficulty weaning from the vent is high probability. Surgical option vs conservative approach unfortunately can yield unfortunate outcomes including . This was discussed with patient but she doesn't know what way should would like to go. She understands and can repeat back the condition that is going on but hasn't fully decided on approach. She wanted me to call her sister. Left a message for her to call me back. She remains bacteremic, with possible multiple abscesses, possible endocarditis , and septic thrombophlebitis. Re-Assessment: - Patient ultimately consented to surgery. Got a hold of her sister and gave thorough update. Discussed the possibility of need for prolonged intubation and possible difficulty or inability to wean from the ventilator. Sister states that she has a [facility] Durable Power of Auto [employer] paper that would have listed her as primary POA but states she never signed this and told her sister she needs to "pick someone younger". Sister states she chose a friend Gladis Delarosa at [phone] to be POA. Patient currently is a FULL RESUSCITATION. Constitutional: No fever, No chills Respiratory: + cough, + shortness of breath (chronic - reporting baseline) Cardiovascular: No chest pain Abdomen: No pain, No nausea, No vomiting, No diarrhea Musculoskeletal: + problem reported (low back pain and L thumb pain) Female : No dysuria Heme: No abnormal bleeding/bruising Skin: No rash (Marivel Magana PA-C) Medications Test 01/05/18 21:35 01/05/18 21:45 01/05/18 22:25 01/05/18 22:28 Immature Granulocyte % (Auto) 0.4 White Blood Count 21.30 Red Blood Count 3.95 Hemoglobin 9.7 Hematocrit 30.1 Mean Corpuscular Volume 76.2 Mean Corpuscular Hemoglobin 24.6 Mean Corpuscular Hemoglobin Concent 32.2 Platelet Count 638 Mean Platelet Volume 8.1 Neutrophils (%) (Auto) 85.5 Lymphocytes (%) (Auto) 7.2 Monocytes (%) (Auto) 6.7 Eosinophils (%) (Auto) 0.1 Basophils (%) (Auto) 0.1 Neutrophils # (Auto) 18.20 Lymphocytes # (Auto) 1.54 Monocytes # (Auto) 1.42 Eosinophils # (Auto) 0.03 Basophils # (Auto) 0.02 Immature Granulocyte # (Auto) 0.09 Total Bilirubin 0.8 Aspartate Amino Transferase (AST) 24 Alanine Aminotransferase (ALT) 24 Alkaline Phosphatase 156 Troponin I < 0.015 Total Protein 7.9 Albumin 2.8 Globulin 5.1 Albumin/Globulin Ratio 0.6 Procalcitonin 0.62 Gastric Fluid pH 2 Gastric Fluid Occult Blood POS Prothrombin Time 12.1 Prothrombin Time INR 1.2 PTT 28.8 Partial Thromboplastin Ratio 1.1 POC Lactic Acid Venous 3.26 Test 01/06/18 01:06 01/06/18 22:36 01/06/18 22:48 01/07/18 06:31 Urine Color YELLOW Urine Appearance CLEAR Urine pH 5.0 Urine Specific [place] 1.018 Urine Protein NEG Urine Glucose (UA) NEG Urine Ketones 1+ Urine Occult Blood NEG Urine Nitrite NEG Urine Bilirubin NEG Urine Urobilinogen NEG Urine Leukocyte Esterase SMALL Urine WBC (Auto) 5-10 Urine RBC (Auto) 0-4 Urine Hyaline Casts (Auto) >30 Urine Epithelial Cells (Auto) 10-20 Urine Bacteria (Auto) NEG Urine Pathogenic Casts 0-3 GRANULAR CASTS Erythrocyte Sedimentation Rate 11 Uric Acid 7.9 White Blood Count 13.71 Red Blood Count 3.70 Hemoglobin 9.3 Hematocrit 29.3 Mean Corpuscular Volume 79.2 Mean Corpuscular Hemoglobin 25.1 Mean Corpuscular Hemoglobin Concent 31.7 Platelet Count 389 Mean Platelet Volume 7.9 Neutrophils (%) (Auto) 84.6 Lymphocytes (%) (Auto) 7.7 Monocytes (%) (Auto) 6.2 Eosinophils (%) (Auto) 1.2 Basophils (%) (Auto) 0.1 Neutrophils # (Auto) 11.59 Lymphocytes # (Auto) 1.06 Monocytes # (Auto) 0.85 Eosinophils # (Auto) 0.16 Basophils # (Auto) 0.02 RDW Standard Deviation 50.5 RDW Coefficient of Variation 17.6 Immature Granulocyte % (Auto) 0.2 Immature Granulocyte # (Auto) 0.03 Total Bilirubin 0.8 Aspartate Amino Transferase (AST) 18 Alanine Aminotransferase (ALT) 19 Alkaline Phosphatase 118 Total Protein 5.7 Albumin 2.1 Globulin 3.6 Albumin/Globulin Ratio 0.6 Theophylline Level 5 Test 01/07/18 12:41 01/07/18 22:07 01/08/18 06:22 01/08/18 06:49 Hemoglobin 9.8 9.7 Hematocrit 30.4 30.8 Sodium Level 136 142 Potassium Level 4.0 3.7 Chloride Level 105 108 Carbon Dioxide Level 27 31 Anion Gap 4.0 4.0 Blood Urea Nitrogen 8 11 Creatinine 0.69 0.83 Est Creatinine Clear Calc Drug Dose 74.7 61.3 Estimated GFR () 100.1 81.1 Estimated GFR (Non- 86.4 70.0 BUN/Creatinine Ratio 12.2 13.2 Random Glucose 97 125 Calcium Level 8.1 7.5 Magnesium Level 1.8 1.7 POC Glucose 148 126 White Blood Count 9.67 Red Blood Count 3.83 Mean Corpuscular Volume 80.4 Mean Corpuscular Hemoglobin 25.3 Mean Corpuscular Hemoglobin Concent 31.5 RDW Standard Deviation 53.5 RDW Coefficient of Variation 18.1 Platelet Count 398 Mean Platelet Volume 8.0 Test 01/08/18 08:43 Prothrombin Time 10.9 Prothrombin Time INR 1.0 PTT 27.7 Partial Thromboplastin Ratio 1.1 (Marivel Magana PA-C) Objective Vital Signs Date Time Temp Pulse Resp B/P (MAP) Pulse Ox O2 Delivery O2 Flow Rate FiO2 01/08/18 07:21 75 20 98 Nasal Cannula 2.0 01/08/18 07:20 36.9 78 24 119/75 (90) 98 Nasal Cannula 3.0 01/08/18 04:00 36.9 78 20 129/69 (89) 97 Nasal Cannula 2.0 01/08/18 04:00 Nasal Cannula 2.0 01/08/18 03:22 72 20 98 Nasal Cannula 2.0 01/08/18 00:20 36.8 80 20 115/67 (83) 97 Nasal Cannula 2.0 01/08/18 00:00 Nasal Cannula 2.0 01/07/18 22:11 78 20 98 Nasal Cannula 2.0 01/07/18 20:00 Nasal Cannula 2.0 01/07/18 19:30 36.6 104 20 151/83 (105) 96 Nasal Cannula 2.0 01/07/18 19:04 112 22 97 Nasal Cannula 2.0 01/07/18 17:15 37.1 100 22 156/82 (106) 93 Nasal Cannula 2.0 01/07/18 16:50 93 18 140/57 (84) 96 Nasal Cannula 2 01/07/18 16:36 92 16 140/57 (84) 100 Oxymask 5 01/07/18 16:06 38 94 20 125/67 (86) 98 Nasal Cannula 3 01/07/18 16:00 Nasal Cannula 2.0 01/07/18 14:58 97 22 94 Nasal Cannula 2.0 01/07/18 12:00 Nasal Cannula 2.0 01/07/18 11:20 75 18 97 Nasal Cannula 2.0 01/07/18 11:11 37.3 68 22 97/58 (71) 96 Nasal Cannula 2.0 (Marivel Magana PA-C) Physical Exam General Appearance: no apparent distress Eyes: sclerae normal ENT: hearing grossly normal Neck: supple, no JVD, trachea midline Respiratory/Chest: no respiratory distress, no accessory muscle use, + decreased breath sounds (diffusely), + pertinent finding (laying flat in bed without dyspnea) Cardiovascular: regular rate, rhythm, + systolic murmur Abdomen: normal bowel sounds, non tender, soft Extremities: no pedal edema Neurologic/Psychiatric: alert, oriented x 3 Skin: normal color, warm/dry (Marivel Magana, BRIANC) Laboratory Results Last 24 Hours Test 01/07/18 11:05 01/07/18 12:41 01/07/18 17:13 01/07/18 20:35 Bedside Glucose 108 mg/dl 126 mg/dl 173 mg/dl Hemoglobin 9.8 g/dL Hematocrit 30.4 % Sodium Level 136 mmol/L Potassium Level 4.0 mmol/L Chloride Level 105 mmol/L Carbon Dioxide Level 27 mmol/L Anion Gap 4.0 mmol/L Blood Urea Nitrogen 8 mg/dl Creatinine 0.69 mg/dl Est Creatinine Clear Calc Drug Dose 74.7 ml/min Estimated GFR () 100.1 Estimated GFR (Non- 86.4 BUN/Creatinine Ratio 12.2 Random Glucose 97 mg/dl Calcium Level 8.1 mg/dl Magnesium Level 1.8 mg/dl Test 01/07/18 22:07 01/08/18 06:22 01/08/18 06:49 01/08/18 08:43 Bedside Glucose 148 mg/dl 126 mg/dl White Blood Count 9.67 K/uL Red Blood Count 3.83 M/uL Hemoglobin 9.7 g/dL Hematocrit 30.8 % Mean Corpuscular Volume 80.4 fL Mean Corpuscular Hemoglobin 25.3 pg Mean Corpuscular Hemoglobin Concent 31.5 g/dl RDW Standard Deviation 53.5 fL RDW Coefficient of Variation 18.1 % Platelet Count 398 K/uL Mean Platelet Volume 8.0 fL Sodium Level 142 mmol/L Potassium Level 3.7 mmol/L Chloride Level 108 mmol/L Carbon Dioxide Level 31 mmol/L Anion Gap 4.0 mmol/L Blood Urea Nitrogen 11 mg/dl Creatinine 0.83 mg/dl Est Creatinine Clear Calc Drug Dose 61.3 ml/min Estimated GFR () 81.1 Estimated GFR (Non- 70.0 BUN/Creatinine Ratio 13.2 Random Glucose 125 mg/dl Calcium Level 7.5 mg/dl Magnesium Level 1.7 mg/dl Prothrombin Time 10.9 SECONDS Prothromb Time International Ratio 1.0 Activated Partial Thromboplast Time 27.7 SECONDS Partial Thromboplastin Ratio 1.1 (Marivel Magana PA-C) Assessment and Plan 72 yo F with COPD,Chronic hypoxic resp failure on home O2, GERD, Chronic Diastolic CHF, T2DM, recurrent epistaxis, history of PE's on Xarelto presenting with n/v, hematemsis, Right sided abdominal tenderness Sepsis 2/2 MSSA Bacteremia with Epideral Abscess and Septic Emboli and Suspected Menigitis and Suspected Endocarditis: - MRI image and report reviewed - Abscess at S1/S2 possible other developing abscess; suspected meningitis; acute septic thrombophlebitis - Cx central line tip - NGTD; Repeat BCx with Gram + Cocci; Another repeat set obtained - Continue Vancomycin and add Nafcillin 2 g IV Q4H; Evidence based approach supports Nafcillin as the ultimate choice but suggests continuation of Vancomycin and also consideration for a cephalosporin and this could be further considered and adjusted - ID Following - discussed with Dr. De Jesus and Dr. Coombs - plan to implement Nafcillin 2 g IV Q4H Acute R Common Iliac and Internal Iliac Vein Septic Thrombophlebitis: - Had IVF filter placed by Dr. Matamoros on 01/08 - discussed plan with Jennifer Hopkins PA-C this AM Hematemesis with Acute Blood Loss Anemia: Esophagitis vs Posterior Nose Bleed with Emesis on Xarelto: STABLE - Transfused 2 units on 01/07 with stabilization of Hgb - EGD on 01/07 - evidence of reflux esophagitis without bleeding - Xarelto remains on hold - Protonix 40 mg BID - GI following - appreciate recommendations Abdominal Pain: RESOLVED - CT with findings of distended GB and U/S confirming mild distention with sludge but no wall thickening - could be evaluated in future as currently asymptomatic and acutely ill due to septic emboli/bacteremia Fluid and Electrolytes - Hypokalemia, Hypomagnesemia, and Hyponatremia - Likely from Dehydration: RESOLVING - Continue to monitor electrolytes and replete as necessary L Thumb Erythema and Edema: - Possible septic emboli as source of pain/redness/swelling; Reports her R thumb was similar a few weeks back DARI: RESOLVED - Continue to monitor renal function - this was likely in the setting of pre- renal changes/dehydration Chronic Hypoxic Respiratory Failure 2/2 COPD without Exacerbation: Baseline 2-3 L NC - Duonebs CHU; Brovana BID; Pulmicort BID; Singulair 10 mg HS; Daliresp 500 mcg daily; Theophylline 400 mg daily; Spiriva 1 puff daily CAD with NSTEMI (December 10, 2017): - ASA on hold given bleed - Atorvastatin 80 mg daily; Lopressor 25 mg BID Depression/Anxiety: STABLE - Lexapro 10 mg daily; Klonopin 0.5 mg BID PRN; Remeron 30 mg HS; Seroquel 200 mg HS T2DM: - Continue SSI and monitor BSGs H/O PE and Ovarian CA: - Holding Xarelto at this time - Ovarian CA was diagnosed in mid-twenties; hasn't required any further evaluation OA: - Hold Meloxicam currently and use Tylenol DVT Prophylaxis: SCDs Code Status: FULL RESUSCITATION Disposition: PT/OT evaluations - Updated sister Carmen over the phone extensively. Explained the concern of difficulty weaning from ventilator after surgery and discussed who the POA would be in this situation. Carmen states that her sister wanted her to be the POA but she states she did not sign for that and thought she should "pick someone younger". Carmen states she has a POA paper from [facility] that names Gladis Delarosa or possibly Ana as POA with phone number [phone]. Prolonged time of 90 minutes. This includes chart review, discussion and assessment of patient, thorough discussion of risk and options, coordination with specialty staff, discussion with sister Carmen, and intervention. Continued [facility] stay due to: multiple IV medications needed Discharge planning: uncertain (Marivel Magana PA-C) Reviewed: Pt Seen/Exam by Me (Mary Armstrong MD) History [employer] physician Supervision Note: I interviewed and examined the patient. Discussed with LOLA Magana and agree with findings and plan as documented in the note. Any exceptions or clarifications are listed here: Patient still complains of back pain today in the lower back. Continues to grow gram-positive cocci in all her blood cultures. Found to have significant epidural abscess with evidence of meningitis on MRI of the lumbar spine that was read by our radiologist early this morning. I discussed the case with radiology, infectious disease, orthopedic spine surgeon all urgently this morning. I also ran the case by her critical care doctor in case she would need to come to the ICU in the postoperative state given her severe COPD. Also with septic thrombophlebitis. Concern for subacute bacterial endocarditis with septic emboli. Also discussed the case with cardiology given her previously severely prolonged QT, recent cardiac catheterization was clean less than 1 month ago after presenting with chest pain and positive troponin. Vitals reviewed Gen: Awake alert and oriented, NAD HEENT: anicteric sclerae, EOMI CV: RRR no mgr nl S1S2 Pulm: CTAB no wcr Abd: +BS soft NT ND no masses or hernias Ext: no edema, 2+ DP pulses, left thumb PIP joint with mild erythema and edema with decreased range of motion, exquisite positive tenderness to palpation of the lumbosacral spine Skin: no rashes, warm/dry Neuro: full strength throughout Patient is a 72-year-old female with history of severe COPD, chronic hypoxic respiratory failure, prolonged QT, psychosis NOS, ovarian cancer, GERD, chronic diastolic CHF, DM 2, and long-term anticoagulation, who presented with epistaxis , suspected hematemesis, and question of fevers. -Now with epidural abscess with severe compression and developing meningitis, Staphylococcus aureus bacteremia, suspect bacterial endocarditis with septic emboli -Also with septic pelvic thrombophlebitis and thrombus-will eventually need to be placed back on anticoagulation when okay with orthopedic surgery -Needs IVC filter today and urgent decompression of the epidural abscess -Continue nafcillin and vancomycin-appreciate ID consult -Appreciate vascular and orthopedic spine consult as well -Appreciate cardiology consult-repeat ECG with normalizing QT, acceptable risk for surgery -Severe COPD-high risk for needing ventilator postoperatively -SCDs only for now for DVT prophylaxis Documented By: Mary Armstrong (Mary Armstrong MD)
--- NOTE | 2018-01-08 10:20 | Gastroenterology Progress Note ---
Progress Note Date of Service: Jan 08, 2018 Subjective Pt evaluation today including: conversation w/ patient, physical exam Patient is a 72 yo female who is hospitalized with anemia, abdominal pain, nausea, & vomiting. She underwent an EGD yesterday that indicated esophagitis. She is on PPI therapy. She reports improvement of her abdominal pain. Her H/H is stable at 9.7/30.8. This morning her only complaint is back pain. Her blood cultures have returned positive and an echocardiogram could not rule out vegetation. She recently underwent an IVC placement for extensive DVT/PE issues for which she was taking the Xarelto. The concern at present is septic emboli. Review of Systems Constitutional: No fever, No chills ENT: No hearing loss Respiratory: No cough Cardiac: No chest pain Abdomen: No pain, No nausea, No vomiting, No diarrhea, No constipation, No GI bleeding Musculoskeletal: + problem reported (back pain) Skin: No problem reported Medications Current Inpatient Medications Medications (Trade) Dose Ordered Sig/Lulú Route Start Time Stop Time Status Last Admin Dose Admin Acetaminophen (Tylenol Tab) 650 mg Q4H PRN PO 01/05/18 23:15 02/04/18 23:14 01/07/18 20:36 650 MG Al Hydrox/Mg Hydrox/Simethicone (Maalox Max Susp) 15 ml Q4H PRN PO 01/05/18 23:15 02/04/18 23:14 Magnesium Hydroxide (Milk Of Magnesia Susp) 30 ml Q12H PRN PO 01/05/18 23:15 02/04/18 23:14 Ondansetron HCl (Zofran Inj) 4 mg Q6H PRN IV 01/05/18 23:15 02/04/18 23:14 01/07/18 11:42 4 MG Polyethylene (Miralax Powder Packet) 17 gm DAILY PRN PO 01/05/18 23:15 02/04/18 23:14 Atorvastatin Calcium (Lipitor Tab) 80 mg DAILY PO 01/06/18 09:00 02/05/18 08:59 01/08/18 08:06 80 MG Cholecalciferol (Vitamin D Tab) 400 inter.unit QAM PO 01/06/18 09:00 02/05/18 08:59 01/08/18 08:08 400 INTER.UNIT Clonazepam (Klonopin Tab) 0.5 mg Q12H PRN PO 01/05/18 23:15 02/04/18 23:14 Escitalopram Oxalate (Lexapro Tab) 10 mg DAILY PO 01/06/18 09:00 02/05/18 08:59 01/08/18 08:06 10 MG Levothyroxine Sodium (Synthroid Tab) 25 mcg DAILYBB PO 01/06/18 06:00 02/05/18 05:59 01/08/18 06:09 25 MCG Metoprolol Tartrate (Lopressor Tab) 25 mg BID PO 01/06/18 09:00 02/05/18 08:59 01/08/18 08:07 25 MG Albuterol/ Ipratropium (Duoneb) 3 ml QIDR INH 01/06/18 08:00 02/05/18 07:59 01/08/18 03:21 3 ML Arformoterol Tartrate (Brovana 15MCG/ 2ML Neb Soln) 15 mcg BIDR INH 01/06/18 08:00 02/05/18 07:59 01/08/18 07:12 15 MCG Budesonide (Pulmicort Respules 0.5MG/ 2ML Neb Soln) 0.5 mg BIDR INH 01/06/18 08:00 02/05/18 07:59 01/08/18 07:12 0.5 MG Quetiapine Fumarate (seroQUEL TAB) 200 mg HS PO 01/06/18 21:00 02/05/18 20:59 01/07/18 20:35 200 MG Roflumilast (Daliresp Tab) 500 mcg DAILY PO 01/06/18 09:00 02/05/18 08:59 01/08/18 08:06 500 MCG Tiotropium [place] (Spiriva Handihaler Inhaler) 1 puff DAILY INH 01/06/18 09:00 02/05/18 08:59 01/08/18 08:05 1 PUFF Mirtazapine (Remeron Tab) 30 mg HS PO 01/06/18 21:00 02/05/18 20:59 01/07/18 20:35 30 MG Glucose (Glucose 40% Gel) 15-30 GRAMS 15 GRAMS... UD PRN PO 01/06/18 04:30 02/05/18 04:29 Glucose (Glucose Chew Tab) 4-8 Tablets 4 Tabl... UD PRN PO 01/06/18 04:30 02/05/18 04:29 Dextrose (Dextrose 50% 50ML Syringe) 25-50ML OF 50% DW IV FOR... UD PRN IV 01/06/18 04:30 02/05/18 04:29 Glucagon (Glucagon Inj) 1 mg UD PRN SQ 01/06/18 04:30 02/05/18 04:29 Montelukast Sodium (Singulair Tab) 10 mg HS PO 01/06/18 21:00 02/05/18 20:59 01/07/18 20:35 10 MG Theophylline (Uniphyl Controlled Rel 24hr Tab) 400 mg QAM PO 01/07/18 09:00 02/06/18 08:59 01/08/18 08:08 400 MG Insulin Aspart (novoLOG ASPART) SLIDING SCALE G... ACHS SC 01/06/18 21:00 02/05/18 20:59 01/07/18 20:42 1 UNITS Miscellaneous Information (Consult) 1 ea UD PRN N/A 01/07/18 00:15 02/06/18 00:14 Vancomycin HCl 1250 mg/Sodium Chloride 275 ml @ 125 mls/hr Q14H IV 01/07/18 10:00 01/20/18 23:59 01/08/18 01:02 125 MLS/HR Prednisone (PredniSONE TAB) 10 mg DAILY PO 01/08/18 09:00 02/07/18 08:59 01/08/18 08:07 10 MG Gadobutrol (Gadavist) 8.4 mmol UD PRN IV 01/07/18 23:50 01/11/18 23:49 Pantoprazole Sodium (Protonix Tab) 40 mg BID PO 01/08/18 09:00 02/07/18 08:59 01/08/18 08:07 40 MG Nafcillin Sodium 2 gm/Dextrose 100 ml @ 100 mls/hr Q4H IV 01/08/18 10:15 01/18/18 10:14 UNV Objective Vital Signs Date Time Temp Pulse Resp B/P (MAP) Pulse Ox O2 Delivery O2 Flow Rate FiO2 01/08/18 07:21 75 20 98 Nasal Cannula 2.0 01/08/18 07:20 36.9 78 24 119/75 (90) 98 Nasal Cannula 3.0 01/08/18 04:00 36.9 78 20 129/69 (89) 97 Nasal Cannula 2.0 01/08/18 04:00 Nasal Cannula 2.0 01/08/18 03:22 72 20 98 Nasal Cannula 2.0 01/08/18 00:20 36.8 80 20 115/67 (83) 97 Nasal Cannula 2.0 01/08/18 00:00 Nasal Cannula 2.0 01/07/18 22:11 78 20 98 Nasal Cannula 2.0 01/07/18 20:00 Nasal Cannula 2.0 01/07/18 19:30 36.6 104 20 151/83 (105) 96 Nasal Cannula 2.0 01/07/18 19:04 112 22 97 Nasal Cannula 2.0 01/07/18 17:15 37.1 100 22 156/82 (106) 93 Nasal Cannula 2.0 01/07/18 16:50 93 18 140/57 (84) 96 Nasal Cannula 2 01/07/18 16:36 92 16 140/57 (84) 100 Oxymask 5 01/07/18 16:06 38 94 20 125/67 (86) 98 Nasal Cannula 3 01/07/18 16:00 Nasal Cannula 2.0 01/07/18 14:58 97 22 94 Nasal Cannula 2.0 01/07/18 12:00 Nasal Cannula 2.0 01/07/18 11:20 75 18 97 Nasal Cannula 2.0 01/07/18 11:11 37.3 68 22 97/58 (71) 96 Nasal Cannula 2.0 Physical Exam General Appearance: WD/WN, no apparent distress Eyes: normal inspection, PERRL ENT: hearing grossly normal Respiratory/Chest: lungs clear, normal breath sounds Cardiovascular: regular rate, rhythm Abdomen: normal bowel sounds, non tender, soft Extremities: non-tender Neurologic/Psych: alert, oriented x 3 Skin: normal color Laboratory Results Last 24 Hours Test 01/07/18 11:05 01/07/18 12:41 01/07/18 17:13 01/07/18 20:35 Bedside Glucose 108 mg/dl 126 mg/dl 173 mg/dl Hemoglobin 9.8 g/dL Hematocrit 30.4 % Sodium Level 136 mmol/L Potassium Level 4.0 mmol/L Chloride Level 105 mmol/L Carbon Dioxide Level 27 mmol/L Anion Gap 4.0 mmol/L Blood Urea Nitrogen 8 mg/dl Creatinine 0.69 mg/dl Est Creatinine Clear Calc Drug Dose 74.7 ml/min Estimated GFR () 100.1 Estimated GFR (Non- 86.4 BUN/Creatinine Ratio 12.2 Random Glucose 97 mg/dl Calcium Level 8.1 mg/dl Magnesium Level 1.8 mg/dl Test 01/07/18 22:07 01/08/18 06:22 01/08/18 06:49 01/08/18 08:43 Bedside Glucose 148 mg/dl 126 mg/dl White Blood Count 9.67 K/uL Red Blood Count 3.83 M/uL Hemoglobin 9.7 g/dL Hematocrit 30.8 % Mean Corpuscular Volume 80.4 fL Mean Corpuscular Hemoglobin 25.3 pg Mean Corpuscular Hemoglobin Concent 31.5 g/dl RDW Standard Deviation 53.5 fL RDW Coefficient of Variation 18.1 % Platelet Count 398 K/uL Mean Platelet Volume 8.0 fL Sodium Level 142 mmol/L Potassium Level 3.7 mmol/L Chloride Level 108 mmol/L Carbon Dioxide Level 31 mmol/L Anion Gap 4.0 mmol/L Blood Urea Nitrogen 11 mg/dl Creatinine 0.83 mg/dl Est Creatinine Clear Calc Drug Dose 61.3 ml/min Estimated GFR () 81.1 Estimated GFR (Non- 70.0 BUN/Creatinine Ratio 13.2 Random Glucose 125 mg/dl Calcium Level 7.5 mg/dl Magnesium Level 1.7 mg/dl Prothrombin Time 10.9 SECONDS Prothromb Time International Ratio 1.0 Activated Partial Thromboplast Time 27.7 SECONDS Partial Thromboplastin Ratio 1.1 Assessment and Plan Patient is a 72 yo female with hematemesis & anemia. 1) Protonix 40 BID. 2) Continue to monitor H/H and for further signs of bleeding. 3) Supportive care & treatment of septic emboli/endocarditis per primary team. 4) US results noted a mildly distended gallbladder partially full of sludge. Could consider eventual surgical opinion once acute picture has been resolved. Thank you for allowing us to participate in the care of this patient. If you should have further questions or concerns, do not hesitate to contact us. Agree with CHARLENE Jackson as above Abd: Soft, NT, ND, +BS Continue current therapy No overt GI bleeding.
--- NOTE | 2018-01-08 10:40 | Progress Note ---
Progress Note Date of Service Jan 08, 2018. Progress Note ID Consult Dictated #[id number] A/P: 1. MSSA Septicemia 2. 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 Iliac vein septic thrombosis 4. Spinal muscle soft tissue abscess -Continue nafcillin, follow creat -01/05,01/07 blood cultures + , will repeat -Will need prolonged IV abx. -Ortho eval pending, consider addition of steroids, will defer to primary -Would suggest neurosurgical eval -Will follow, thank you
[2018-01-08] MEDS ORDERED: FENTANYL CITRATE INJ 50 MCG/1 ML 2 ML VIAL ONE ×4 (11:22→18:50)
[2018-01-08] MEDS ORDERED: MIDAZOLAM HCL 1 MG/ML 2ML VIAL ONE ×2 (11:22→16:56)
[2018-01-08] MEDS ORDERED: LIDOCAINE HCL 1% 20 ML VIAL ONE (11:22)
--- NOTE | 2018-01-08 11:40 | Pre Sedation Assessment ---
Pre Sedation Assessment General Date of Sedation: Jan 08, 2018. Vital Signs Past 12 Hours Date Time Temp Pulse Resp B/P (MAP) Pulse Ox O2 Delivery O2 Flow Rate FiO2 01/08/18 11:19 78 20 98 Nasal Cannula 2.0 01/08/18 07:21 75 20 98 Nasal Cannula 2.0 01/08/18 07:20 36.9 78 24 119/75 (90) 98 Nasal Cannula 3.0 01/08/18 04:00 36.9 78 20 129/69 (89) 97 Nasal Cannula 2.0 01/08/18 04:00 Nasal Cannula 2.0 01/08/18 03:22 72 20 98 Nasal Cannula 2.0 01/08/18 00:20 36.8 80 20 115/67 (83) 97 Nasal Cannula 2.0 01/08/18 00:00 Nasal Cannula 2.0 Pre-Sedation Airway Assessment Smoking Status: Never Smoker Hx of Sleep Apnea: No Short Thick Neck: No Thyro-mental Distance: > 3 Finger Breadths Oral Cavity: Dentures Mallampati Classification: Class III ASA Classification: Class III NPO Status Date of Last Intake of Fluids: Jan 08, 2018 Time of Last Intake of Fluids: 0001 Date of Last Intake of Solids: Jan 08, 2018 Time of Last Intake of Solids: 0001 Procedure Planning Contraindications for Sedation: None Current Medications Reviewed: Yes Notes The planned sedation has been discussed with the patient. Informed Consent was obtained. I have identified the patient, determined the appropriateness of sedation and have assessed the patient immediately prior to the procedure. All medicine(s) and interventions are by my order.
[2018-01-08] MEDS ORDERED: LIDOCAINE HCL 1% 20 ML VIAL SQ ONE ×2 (12:02→12:38)
--- NOTE | 2018-01-08 12:05 | INFECT. DISEASE CONSULTATION ---
DATE OF CONSULTATION: 01/08/2018 INFECTIOUS DISEASE CONSULT. HISTORY OF PRESENT ILLNESS: This is a 72-year-old female who was admitted to the hospital on the secondary to subjective fevers at home for at least 1-2 days prior to admission and epistaxis prior to admission. She did have an episode of hematemesis in the ER as well. She was found to have a leukocytosis as high as 21,000 in the Emergency Room and infectious workup was obtained. Her UA was negative. Blood cultures were obtained in the Emergency Room and now are growing MSSA with resistance to clindamycin and doxy. Initially a central line was placed secondary to poor IV access, but due to her positive blood cultures, this was removed and the cath tip is pending. Repeat blood cultures from yesterday are pending as well. She is currently on vancomycin. Her leukocytosis has improved to 9. She did have an echocardiogram yesterday secondary to her positive blood cultures and this is showing concern for vegetation on both the mitral valve as well as the aortic valve. She is reportedly scheduled for AARON today. She also had complaints of abdominal pain throughout her visit and a CT of the abdomen was obtained and was negative. She also had a gallbladder ultrasound which was unremarkable. She did have a wound on her hand, on her thumb, in left thumb and hand x-rays were obtained and were negative. Because of her persistent abdominal pain which was radiating to the back, an MRI was performed yesterday. This has significant findings associated with infection. She has a 2.4 x 1.2 x 0.8 enhancing collection in the post-epidural space at S1, S2 with the sacral canal narrowing and severe compression. She has iliac vein thrombosis. She has enhancement of the right piriformis muscle. There is mass effect from L2-L3 and a questionable early forming abscess in this area. There is epidural enhancement from L2 to the sacrum. There is a soft tissue mass in the spinal musculature at L2-L5 and S1 measuring 1.7 x 1.0 which is consistent with a soft tissue abscess. On my examination today, she continues to complain of severe back pain. She denies any loss of bowel or bladder. She is able to move her lower extremities without difficulty. She does not have loss of sensation. She states her fevers have improved on the , her T-max was 37.7, overnight it was 38 and was isolated. She currently is afebrile. She is reportedly on the schedule for the OR later today. Orthopedic surgery has been consulted as well as vascular surgery. She is due to get IVC filter today. She denies any chest pain, cough or shortness of breath. She currently denies any fevers or chills. Her repeat blood cultures from the are now also positive for gram positive cocci as well. Her remaining review of systems is unremarkable. PAST MEDICAL HISTORY: Significant for COPD, GERD, heart failure, history of meningitis in 1973, ovarian cancer and type 2 diabetes. She was recently admitted on the through the for suspected non-ST elevated [place]. She did undergo catheterization which was normal. She has history of PE for which she is on chronic Xarelto. PAST SURGICAL HISTORY: Significant for hysterectomy, bilateral oophorectomy, lumpectomy, knee surgeries, cataract surgery and recent heart catheterization. FAMILY HISTORY: Noncontributory. SOCIAL HISTORY: Negative for tobacco use, alcohol use or drug use. ALLERGIES: She has no known drug allergies. CURRENT MEDICATIONS: Include nafcillin, prednisone, Protonix, vancomycin, theophylline, Seroquel, Remeron, Singulair, Lipitor, vitamin D, Lexapro, Lopressor, Spiriva, DuoNebs, Brovana, Pulmicort, Synthroid, Tylenol, Maalox, milk of magnesia, Zofran, MiraLax, Klonopin. PHYSICAL EXAMINATION: VITAL SIGNS: She is currently afebrile, T-max is 38, pulse 75, respiratory rate 20, blood pressure 119/75, oxygen saturation is 98% on 2 liters nasal cannula. GENERAL: She is awake, alert and oriented x3. HEENT: Mucous membranes are dry. Extraocular muscles are intact. HEART: Regular. I do not auscultate a murmur. However, the patient is talking throughout the examination. LUNGS: Clear anteriorly. ABDOMEN: Nondistended. EXTREMITIES: There is no lower extremity edema. She is able to move both lower extremities. Sensation is intact. LABORATORY STUDIES: CBC today, white blood cell count 9.6 down from 13.7, hemoglobin 9.7, platelets are 398, a sed rate on the was 11. Chemistry panel today, sodium 142, potassium 3.7, chloride 108, bicarbonate 31, BUN 11, creatinine 0.8, glucose is 126. LFTs were normal on the . UA was negative in the ER. Gastric blood was positive. Blood cultures on the again are growing MSSA. Repeat blood cultures on the are positive as well for gram positive cocci. No repeat blood cultures have been obtained. Echocardiogram was concerning for both mitral and aortic valve vegetations. ASSESSMENT AND PLAN: 1. Methicillin-sensitive Staphylococcus aureus septicemia with significant metastatic infection including multiple epidural abscesses, spinal abscesses and iliac vein clots which are likely infected as well. 2. 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 She has been changed to nafcillin. Repeat blood cultures will be ordered today. She has had a discussion with her primary service and she is weighing her options versus surgical and more conservative management secondary to her underlying lung issues weaning from the ventilator is a concern for her. I would suggest continued antibiotics. I have informed the patient that she will need a prolonged course of antibiotics regardless of whether she pursues any surgical options; however, there is concern for cord compression and steroids may be of some benefit. Orthopedic evaluation is pending. If she does pursue any surgical options, she may benefit from transfer to tertiary care center with neurosurgical evaluation. We will follow along with you.
--- NOTE | 2018-01-08 12:36 | [facility] Post Operative Brief Note ---
Immediate Operative Summary Operative Date Jan 08, 2018. Pre-Operative Diagnosis DVT, Lumbar Spine Abscess, Contraindication for Anticoagulation Post-Operative Diagnosis DVT, Lumbar Spine Abscess, Contraindication for Anticoagulation Procedure(s) Performed Insertion of Vena Cava Filter, Right Jugular Approach, Ultrasound Localization of Right Internal Jugular Vein, Fluoroscopy for positioning. Reposition of Filter Insertion of Non Tunneled Central Line Surgeon Dr. [place] Computer Networker Surgeon(s) None Estimated Blood Loss 20 Findings Consistent with Post-Op Diagnosis Specimens None Drains None Anesthesia Type None Complication(s) none Disposition Accompanied Pt To Recover: no Disposition:
--- NOTE | 2018-01-08 12:46 | [facility] Operative Report ---
Operative Report Operative Date Jan 08, 2018. Pre-Operative Diagnosis DVT, Lumbar Spine Abscess, Contraindication for Anticoagulation Post-Operative Diagnosis DVT, Lumbar Spine Abscess, Contraindication for Anticoagulation Procedure(s) Performed Insertion of Vena Cava Filter, Right Jugular Approach, Ultrasound Localization of Right Internal Jugular Vein, Fluoroscopy for positioning. Reposition of Filter Insertion of Non Tunneled Central Line Surgeon Dr. [place] Baler Operator Surgeon(s) None Estimated Blood Loss 20 Findings Filter is upright in the inferior vena cava. No caval clot was seen. Specimens None Drains None Anesthesia Type None Complication(s) none Disposition no Indications This is a 72-year-old female who has a lumbar abscess and DVT. She is to undergo drainage of the abscess later today. Removable filter was recommended.I have discussed the risks options and benefits of the procedure with the patient. The patient understands the risks options and benefits and agrees to the procedure. Description of Procedure The patient was brought to the angio suite and placed in the supine position. The right side of the neck was prepped and draped in the usual fashion. The right internal jugular vein was located with ultrasound. It was patent, compressed easily, and had no filling defects. The vein was then punctured under ultrasound visualization. A guidewire was then passed centrally. The wire could not be passed into the inferior vena cava from above. We then placed a 5 [place] sheath. Using 035 Glidewire and an angled glide catheter the inferior vena cava was cannulated from above. The puncture site was then dilated and the filter sheath inserted. It was passed to the infra renal vena cava. A venacavagram was done which showed no cava clot and an acceptable size. The renal veins were identified. The filter was then passed through the sheath and deployed in the infra renal vena cava. The filter had a tilt to it. It was decided to reposition at this time. The 035 wire was reinserted. The sheath for insertion of the filter was then exchanged for removal sheath. The snare was then inserted. The filter was snared and retracted into the sheath. This went uneventful. The filter was then deployed in a good upright position in the midportion of the inferior vena cava between the renals and the confluence of the iliac veins. This time the filter set a nice upright position. Satisfied with the positioning of the filter, the sheath was removed over a wire. We then inserted a triple-lumen catheter over the wire to the central position. This was sutured in place. All 3 ports aspirated and flushed easily. They were instilled with heparinized saline. Pressure was applied to the puncture site. Adequate hemostasis was obtained and a sterile dressing was applied. The patient left the angio suite in good condition and tolerated the procedure well. I attest to the content of the Intraoperative Record and any orders documented therein. Any exceptions are noted below.
[2018-01-08] MEDS: NAFCILLIN SOD IV 2 GM in DEXTROSE 5% ADD-VANTAGE 100ML 100 ML IV SCH ×4 (13:10→23:42)
[2018-01-08] MEDS ORDERED: VANCOMYCIN TROUGH ONE (13:30)
--- NOTE | 2018-01-08 14:57 | Pharmacy Progress Note ---
Pharmacy Abx Dose Progress Nt Date of Service Jan 08, 2018. Pharmacy Dosing Scope The patient is currently receiving the following antimicrobial agents per Pharmacy consult: Vancomycin 1250 mg IV every 14 hours Objective Height (Feet): 5 Height (Inches): 3.00 Weight (Kilograms): 82.300 Vital Signs (Past 12Hrs) Vital Signs Past 12 Hours Date Time Temp Pulse Resp B/P (MAP) Pulse Ox O2 Delivery O2 Flow Rate FiO2 01/08/18 13:05 37.3 80 20 135/79 (97) 97 Nasal Cannula 3.0 01/08/18 12:29 84 16 154/71 99 Oxymask 4 01/08/18 12:02 76 21 147/71 99 Oxymask 4 01/08/18 12:00 Nasal Cannula 2.0 01/08/18 11:19 78 20 98 Nasal Cannula 2.0 01/08/18 08:00 Nasal Cannula 2.0 01/08/18 07:21 75 20 98 Nasal Cannula 2.0 01/08/18 07:20 36.9 78 24 119/75 (90) 98 Nasal Cannula 3.0 01/08/18 04:00 36.9 78 20 129/69 (89) 97 Nasal Cannula 2.0 01/08/18 04:00 Nasal Cannula 2.0 01/08/18 03:22 72 20 98 Nasal Cannula 2.0 Lab Results (24Hrs) Laboratory Tests (24 Hours) Test 01/08/18 06:22 White Blood Count 9.67 K/uL (4.8-10.8) Micro Results Date/Time Source Procedure Growth Status 01/08/18 10:56 Blood Blood Culture Pending Received 01/08/18 10:48 Blood Blood Culture Pending Received 01/07/18 12:41 Blood Blood Culture - Preliminary Gram Positive Cocci Resulted 01/07/18 12:23 Blood Blood Culture - Preliminary Gram Positive Cocci Resulted 01/05/18 22:25 Blood Blood Culture - Preliminary Staphylococcus Aureus Resulted 01/05/18 21:35 Blood Blood Culture - Preliminary Staphylococcus Aureus Resulted 01/07/18 09:15 Catheter Tip Central Venous Pressure Line Catheter Tip Culture - Preliminary NO GROWTH TO DATE. Resulted Assessment & Plan Assessment 72 yo female receiving Vancomycin IV for treatment of MSSA septicemic with epidural abscess, suspected [place] valve infective endocarditis and iliac vein septic thrombosis. Today is day # 3 of antimicrobial therapy. * ID consulted this morning - nafcillin IV added Plan Vancomycin IV * Trough level of 18.8 mcg/mL is therapeutic * Continue dose of 1250 mg IV every 14 hours * Goal trough level : 20 mcg/mL * Repeat trough level will be ordered if vancomycin is continued - will verify with provider if vancomycin therapy is to continue since nafcillin has been added to regimen Pharmacy will continue to follow and will adjust dose/frequency as necessary. Thank you.
--- NOTE | 2018-01-08 15:12 | Cardiology Consultation ---
Cardiology Consultation Date of Consultation: Jan 08, 2018. Requesting Physician: Nathaniel Reason for Consultation: Endocarditis Pt evaluation today including: conversation w/ patient, physical exam, chart review, lab review, review of studies, review of inpatient medication list, conversation w/ attending History of Present Illness The patient is a 72-year-old woman with multiple comorbidities who was admitted [facility] with symptoms of abdominal discomfort, nausea vomiting, hematemesis and epistaxis. The patient underwent initial evaluation which revealed anemia eventually attributed to gastritis. She had been fully anticoagulated with Xarelto for history of DVT and PE. Patient was transfused and her anticoagulation was stopped. The patient also had reported symptoms of fevers and chills recently. She had some cough as well. She was noted on examination to have evidence of back pain and a swollen left thumb. Her current condition suggests septic emboli and an echocardiogram performed yesterday could not exclude lesions on either the mitral or aortic valve. Currently the patient complains of right flank and buttock pain. She had had a history of chest discomfort which did not appear to be prominent currently. Her gastrointestinal symptoms appear to have improved. She denies breathing difficulty currently. She does report being dizzy and lightheaded with a sense of palpitation during exertion leading up to her admission. She is not dizzy currently. Past Medical/Surgical History Non ST-elevation myocardial infarction, November 2017 Normal coronary arteries on coronary angiography November 2017 Severe COPD Diabetes mellitus Gastritis and gastroesophageal reflux disease Depression Pulmonary embolism on chronic anticoagulation Past surgical history: Placement of IVC filter today Family History No pertient family history secondary to age Noncontributory Social History Smoking Status: Never Smoker History of Alcohol Use: No Review of Systems Respiratory: No cough Cardiac: No chest pain Per HPI. Patient did not report lower extremity edema. She did report some melena. All Other Systems: Reviewed and Negative Allergies Coded Allergies: Rabies Vaccine (Verified Allergy, Severe, HIVES, 10/28/17) Ragweed (Verified Allergy, Unknown, UNKNOWN, 10/28/17) Tomato (Verified Allergy, Unknown, HIVES, 10/28/17) Medications Current Inpatient Medications Medications (Trade) Dose Ordered Sig/Lulú Route Start Time Stop Time Status Last Admin Dose Admin Acetaminophen (Tylenol Tab) 650 mg Q4H PRN PO 01/05/18 23:15 02/04/18 23:14 01/07/18 20:36 650 MG Al Hydrox/Mg Hydrox/Simethicone (Maalox Max Susp) 15 ml Q4H PRN PO 01/05/18 23:15 02/04/18 23:14 Magnesium Hydroxide (Milk Of Magnesia Susp) 30 ml Q12H PRN PO 01/05/18 23:15 02/04/18 23:14 Ondansetron HCl (Zofran Inj) 4 mg Q6H PRN IV 01/05/18 23:15 02/04/18 23:14 01/07/18 11:42 4 MG Polyethylene (Miralax Powder Packet) 17 gm DAILY PRN PO 01/05/18 23:15 02/04/18 23:14 Atorvastatin Calcium (Lipitor Tab) 80 mg DAILY PO 01/06/18 09:00 02/05/18 08:59 01/08/18 08:06 80 MG Cholecalciferol (Vitamin D Tab) 400 inter.unit QAM PO 01/06/18 09:00 02/05/18 08:59 01/08/18 08:08 400 INTER.UNIT Clonazepam (Klonopin Tab) 0.5 mg Q12H PRN PO 01/05/18 23:15 02/04/18 23:14 Escitalopram Oxalate (Lexapro Tab) 10 mg DAILY PO 01/06/18 09:00 02/05/18 08:59 01/08/18 08:06 10 MG Levothyroxine Sodium (Synthroid Tab) 25 mcg DAILYBB PO 01/06/18 06:00 02/05/18 05:59 01/08/18 06:09 25 MCG Metoprolol Tartrate (Lopressor Tab) 25 mg BID PO 01/06/18 09:00 02/05/18 08:59 01/08/18 08:07 25 MG Albuterol/ Ipratropium (Duoneb) 3 ml QIDR INH 01/06/18 08:00 02/05/18 07:59 01/08/18 11:19 3 ML Arformoterol Tartrate (Brovana 15MCG/ 2ML Neb Soln) 15 mcg BIDR INH 01/06/18 08:00 02/05/18 07:59 01/08/18 07:12 15 MCG Budesonide (Pulmicort Respules 0.5MG/ 2ML Neb Soln) 0.5 mg BIDR INH 01/06/18 08:00 02/05/18 07:59 01/08/18 07:12 0.5 MG Quetiapine Fumarate (seroQUEL TAB) 200 mg HS PO 01/06/18 21:00 02/05/18 20:59 01/07/18 20:35 200 MG Roflumilast (Daliresp Tab) 500 mcg DAILY PO 01/06/18 09:00 02/05/18 08:59 01/08/18 08:06 500 MCG Tiotropium [place] (Spiriva Handihaler Inhaler) 1 puff DAILY INH 01/06/18 09:00 02/05/18 08:59 01/08/18 08:05 1 PUFF Mirtazapine (Remeron Tab) 30 mg HS PO 01/06/18 21:00 02/05/18 20:59 01/07/18 20:35 30 MG Glucose (Glucose 40% Gel) 15-30 GRAMS 15 GRAMS... UD PRN PO 01/06/18 04:30 02/05/18 04:29 Glucose (Glucose Chew Tab) 4-8 Tablets 4 Tabl... UD PRN PO 01/06/18 04:30 02/05/18 04:29 Dextrose (Dextrose 50% 50ML Syringe) 25-50ML OF 50% DW IV FOR... UD PRN IV 01/06/18 04:30 02/05/18 04:29 Glucagon (Glucagon Inj) 1 mg UD PRN SQ 01/06/18 04:30 02/05/18 04:29 Montelukast Sodium (Singulair Tab) 10 mg HS PO 01/06/18 21:00 02/05/18 20:59 01/07/18 20:35 10 MG Theophylline (Uniphyl Controlled Rel 24hr Tab) 400 mg QAM PO 01/07/18 09:00 02/06/18 08:59 01/08/18 08:08 400 MG Insulin Aspart (novoLOG ASPART) SLIDING SCALE G... ACHS SC 01/06/18 21:00 02/05/18 20:59 01/08/18 13:15 1 UNITS Miscellaneous Information (Consult) 1 ea UD PRN N/A 01/07/18 00:15 02/06/18 00:14 Vancomycin HCl 1250 mg/Sodium Chloride 275 ml @ 125 mls/hr Q14H IV 01/07/18 10:00 01/20/18 23:59 01/08/18 14:35 125 MLS/HR Prednisone (PredniSONE TAB) 10 mg DAILY PO 01/08/18 09:00 02/07/18 08:59 01/08/18 08:07 10 MG Gadobutrol (Gadavist) 8.4 mmol UD PRN IV 01/07/18 23:50 01/11/18 23:49 Pantoprazole Sodium (Protonix Tab) 40 mg BID PO 01/08/18 09:00 02/07/18 08:59 01/08/18 08:07 40 MG Nafcillin Sodium 2 gm/Dextrose 100 ml @ 100 mls/hr Q4H IV 01/08/18 12:00 01/18/18 11:59 01/08/18 13:10 100 MLS/HR Physical Exam Vital Signs Past 12 Hours Date Time Temp Pulse Resp B/P (MAP) Pulse Ox O2 Delivery O2 Flow Rate FiO2 01/08/18 13:05 37.3 80 20 135/79 (97) 97 Nasal Cannula 3.0 01/08/18 12:29 84 16 154/71 99 Oxymask 4 01/08/18 12:02 76 21 147/71 99 Oxymask 4 01/08/18 12:00 Nasal Cannula 2.0 01/08/18 11:19 78 20 98 Nasal Cannula 2.0 01/08/18 08:00 Nasal Cannula 2.0 01/08/18 07:21 75 20 98 Nasal Cannula 2.0 01/08/18 07:20 36.9 78 24 119/75 (90) 98 Nasal Cannula 3.0 01/08/18 04:00 36.9 78 20 129/69 (89) 97 Nasal Cannula 2.0 01/08/18 04:00 Nasal Cannula 2.0 01/08/18 03:22 72 20 98 Nasal Cannula 2.0 Constitutional: General Apperance: well-nourished, well-developed Level of Distress: NAD, chronically ill Psychiatric: Orientation: oriented except where noted, to time, to place, to person Memory: recent memory normal, remote memory normal Eyes: EOM: EOMI Lungs: Auscultation: decreased breath sounds Cardiovascular: Apical Impulse: not displaced Peripheral Pulses: Bruits: none appreciated Carotid Pulse: normal on the left, normal on the right Radial Pulse: normal on the left, normal on the right Dorsalis Pedis Pulse: decreased on the left, decreased on the right Abdomen: Bowel Sounds: normal Inspection & Palpation: soft, non-distended, no tenderness, guarding & rebound Neurologic: Cranial Nerves: grossly intact She is alert and oriented x3. Mood affect appear normal. She answered all questions appropriately. HEENT: Sclerae are anicteric. Pupils are equal and reactive to light and accommodation. Extraocular movements were intact. Neuro: Cranial nerves intact Neck: Examination of the submandibular region did not reveal any significant lymphadenopathy. Carotids are palpable bilaterally and free of bruits on auscultation. There was no evidence of jugular venous distention but she was lying flat. The thyroid was not enlarged. Lungs: Lungs are clear to auscultation bilaterally. There are no rales wheezes or rhonchi. She has normal respiratory effort without use of accessory muscles. There is normal pulmonary excursion. Cardiac: The rhythm was regular. S1 and S2 were normal. There are no murmurs on examination. The PMI was not markedly displaced on palpation. Abdomen: The abdomen was soft. Extremities: Patient has bilateral radial pulses that are equal in intensity. There is no evidence cyanosis or clubbing. There was no evidence of significant peripheral edema bilaterally. Skin: There are no rashes noted on examination today. She does have a swollen PIP joint on the left thumb. This is erythematous as well. Data Laboratory Results: Last 24 Hours Test 01/07/18 17:13 01/07/18 20:35 01/07/18 22:07 01/08/18 06:22 Bedside Glucose 126 mg/dl 173 mg/dl 148 mg/dl White Blood Count 9.67 K/uL Red Blood Count 3.83 M/uL Hemoglobin 9.7 g/dL Hematocrit 30.8 % Mean Corpuscular Volume 80.4 fL Mean Corpuscular Hemoglobin 25.3 pg Mean Corpuscular Hemoglobin Concent 31.5 g/dl RDW Standard Deviation 53.5 fL RDW Coefficient of Variation 18.1 % Platelet Count 398 K/uL Mean Platelet Volume 8.0 fL Sodium Level 142 mmol/L Potassium Level 3.7 mmol/L Chloride Level 108 mmol/L Carbon Dioxide Level 31 mmol/L Anion Gap 4.0 mmol/L Blood Urea Nitrogen 11 mg/dl Creatinine 0.83 mg/dl Est Creatinine Clear Calc Drug Dose 61.3 ml/min Estimated GFR () 81.1 Estimated GFR (Non- 70.0 BUN/Creatinine Ratio 13.2 Random Glucose 125 mg/dl Calcium Level 7.5 mg/dl Magnesium Level 1.7 mg/dl Test 01/08/18 06:49 01/08/18 08:43 01/08/18 11:25 01/08/18 13:35 Bedside Glucose 126 mg/dl 188 mg/dl Prothrombin Time 10.9 SECONDS Prothromb Time International Ratio 1.0 Activated Partial Thromboplast Time 27.7 SECONDS Partial Thromboplastin Ratio 1.1 Vancomycin Level Trough 18.8 mcg/ml Imaging: Multiple imaging studies including MRI, CT and chest x-ray were reviewed. Patient has evidence of a lumbar abscess and possible meningitis. Chest x-ray did not demonstrate any acute cardiopulmonary disease. Hand x-ray did not demonstrate any bone destruction. EKG: Normal sinus rhythm with normal QT interval Limited echocardiogram suggested nodular findings of the mitral and aortic valve. Overall preserved LV systolic function. Assessment & Plan 1. Septic emboli: This could be related to endocarditis. Her transthoracic echocardiogram was not entirely normal. Mitral and aortic vegetations could not be definitively excluded. She has peripheral sequelae consistent with endocarditis and a compatible organism in more than 1 culture. She has also had subjective fevers. This would be enough evidence for presumptive diagnosis of endocarditis. 2. History of non ST-elevation myocardial infarction: During her last admission the patient is felt to have wall motion abnormalities in addition to elevated biomarkers. However, her angiography was normal. She did not present with symptoms consistent with an acute coronary syndrome. Markers have been normal. No additional evaluation is required currently 3. Prolonged QT interval: This was seen at the time of her admission in November. Her electrolytes were notably abnormal at that time. It seems that with replenishment of her electrolytes her QT interval normalized. Currently she has a normal QT interval.
[2018-01-08] MEDS ORDERED: FLUMAZENIL 0.1 MG/1 ML 10 ML VIAL IV ONE (16:55)
[2018-01-08] MEDS ORDERED: VANCOMYCIN HCL 1000MG/20ML VIAL ONE (16:56)
[2018-01-08] MEDS ORDERED: PROPRANOLOL HCL 1 MG/ML 1 ML VIAL IV ONE (16:56)
[2018-01-08] MEDS ORDERED: GELATIN SPONGE SZ 100 ONE (16:56)
[2018-01-08] MEDS ORDERED: BACITRACIN 50000 UNIT VIAL ONE (16:56)
[2018-01-08] MEDS ORDERED: THROMBIN FOR SOLN 20000 UNIT KIT ONE (16:56)
[2018-01-08] MEDS ORDERED: ROCURONIUM BROMIDE 10 MG/ML 5 ML VIAL IV ONE (16:57)
[2018-01-08] MEDS ORDERED: LIDOCAINE HCL 2% 2 ML VIAL (20MG/ML) ONE (16:57)
[2018-01-08] MEDS ORDERED: ONDANSETRON INJ 2 MG/ML 2 ML VIAL ONE (16:57)
--- NOTE | 2018-01-08 17:06 | History & Physical Bridge Note ---
H&P Re-Evaluation Bridge Note: I have examined the patient, reviewed the History & Physical and in the interval since the performance of the History & Physical I have noted the following changes of clinical significance: No changes noted
[2018-01-08] MEDS ORDERED: BUPIVACAINE/EPINEPHRINE 0.5% MPF 1:200,000 30 ML VIAL ONE ×2 (17:11→17:23)
[2018-01-08] MEDS ORDERED: GENTAMICIN SULFATE 40 MG/ML 2 ML VIAL ONE (18:02)
[2018-01-08] MEDS ORDERED: NEOSTIGMINE METHYLSULFATE 1 MG/ML 10ML VIAL ONE (18:20)
[2018-01-08] MEDS ORDERED: GLYCOPYRROLATE INJ 0.2 MG/ML VIAL ONE (18:20)
[2018-01-08] MEDS ORDERED: EpHEDrine SULFATE INJ 50 MG/ML AMP IV PRN (18:45)
[2018-01-08] MEDS ORDERED: ONDANSETRON INJ 2 MG/ML 2 ML VIAL IV PRN ×2 (18:45→19:30)
[2018-01-08] MEDS ORDERED: MEPERIDINE HCL 25 MG/ML CARP IV PRN (18:45)
[2018-01-08] MEDS ORDERED: FENTANYL CITRATE INJ 50 MCG/1 ML 2 ML VIAL IV PRN (18:45)
[2018-01-08] MEDS ORDERED: ATROPINE SULFATE 0.1 MG/ML 5ML SYR IV PRN (18:45)
[2018-01-08] MEDS ORDERED: LABETALOL HCL IV 5 MG/ML 20ML IV PRN (18:45)
[2018-01-08] MEDS ORDERED: HYDROmorphone INJ 0.5 MG/0.5 ML SYR IV PRN (18:45)
[2018-01-08] MEDS ORDERED: FLOSEAL HEMOSTATIC MATRIX 10ML TOP ONE (19:04)
--- NOTE | 2018-01-08 19:09 | [facility] Post Operative Brief Note ---
Immediate Operative Summary Operative Date Jan 08, 2018. Pre-Operative Diagnosis Epidural abcess lumbar spine Post-Operative Diagnosis Epidural abcess lumbar spine Procedure(s) Performed Laminectomy, decompression L2-S2, with washout of epidural abcess, application of stimulan beads Surgeon Dr. Valverde Chip Crusher Operator Surgeon(s) Daniela DAVILA Estimated Blood Loss 150ml Findings Consistent with Post-Op Diagnosis Specimens culture #1 lumbar spine aerobic, anerobic sent 1805 Anesthesia Type General Complication(s) none Disposition Disposition: Recovery Room / PACU
[2018-01-08] MEDS ORDERED: ACETAMINOPHEN 325 MG TAB PO PRN (19:30)
[2018-01-08] MEDS ORDERED: HYDROmorphone INJ 1 MG/ML SYR IV PRN (19:30)
[2018-01-08] MEDS ORDERED: LORAZEPAM INJ 1 MG in SYRINGE 0 ML IV PRN (19:30)
[2018-01-08] MEDS ORDERED: METOCLOPRAMIDE HCL INJ 5 MG/ML 2 ML VIAL IV PRN (19:30)
[2018-01-08] MEDS ORDERED: LORAZEPAM 1 MG TAB PO PRN (19:30)
[2018-01-08] MEDS ORDERED: MAGNESIUM HYDROXIDE SUSP 30 ML UDC PO PRN (19:30)
--- NOTE | 2018-01-08 19:46 | DIAGNOSTIC IMAGING REPORT ---
INTRAOPERATIVE RADIOGRAPHS CLINICAL HISTORY: L2-S1 laminectomy. Fluoroscopy time: 2 seconds. FINDINGS: 2 spot fluoroscopic views of the lumbar spine are presented. Surgical probes project posteriorly in the mid to lower lumbar region. Multilevel laminectomy is noted. An IVC filter is in place. IMPRESSION: Intraoperative images of the lumbar spine as above. See operative report for detailed findings. Electronically signed by: Tee Terry M.D. 01/08/2018 7:44 PM Dictated Date/Time: 01/08/2018 7:43 PM
--- NOTE | 2018-01-08 20:06 | Anesthesiology Progress Note ---
Anesthesia Post Op Note Date & Time Jan 08, 2018 at 20:06 Vital Signs Pain Intensity: 0 Vital Signs Past 12 Hours Date Time Temp Pulse Resp B/P (MAP) Pulse Ox O2 Delivery O2 Flow Rate FiO2 01/08/18 19:59 85 17 01/08/18 19:59 83 17 93 01/08/18 19:56 172/78 01/08/18 19:55 171/95 01/08/18 19:54 86 23 89 01/08/18 19:54 81 23 01/08/18 19:51 165/114 01/08/18 19:49 95 25 90 01/08/18 19:49 89 25 01/08/18 19:49 36.2 81 16 166/86 96 Nasal Cannula 2 01/08/18 19:48 83 28 01/08/18 19:48 89 28 97 01/08/18 19:46 157/74 01/08/18 19:43 94 20 95 01/08/18 19:43 88 20 01/08/18 19:41 165/88 01/08/18 19:38 100 16 93 01/08/18 19:38 91 16 01/08/18 19:33 90 24 100 Mask 13.0 01/08/18 19:33 86 18 01/08/18 19:33 90 18 100 01/08/18 19:31 165/81 01/08/18 19:29 163/80 01/08/18 19:28 97 20 01/08/18 19:28 96 20 100 01/08/18 19:24 163/90 01/08/18 19:23 96 24 100 01/08/18 19:23 98 24 01/08/18 19:23 36.0 95 20 163/90 100 Oxymask 10 01/08/18 17:14 37.9 85 24 144/80 (101) 97 Nasal Cannula 3 01/08/18 16:00 Nasal Cannula 2.0 01/08/18 15:26 84 20 98 Nasal Cannula 2.0 01/08/18 15:16 37.4 83 18 118/76 (90) 98 Nasal Cannula 3.0 01/08/18 14:15 81 122/78 (93) 96 Nasal Cannula 3.0 01/08/18 13:55 86 125/83 (97) 96 Nasal Cannula 3.0 01/08/18 13:40 80 142/82 (102) 96 Nasal Cannula 3.0 01/08/18 13:25 83 112/72 (85) 95 Nasal Cannula 3.0 01/08/18 13:05 37.3 80 20 135/79 (97) 97 Nasal Cannula 3.0 01/08/18 12:29 84 16 154/71 99 Oxymask 4 01/08/18 12:02 76 21 147/71 99 Oxymask 4 01/08/18 12:00 Nasal Cannula 2.0 01/08/18 11:19 78 20 98 Nasal Cannula 2.0 Notes Mental Status: alert / awake / arousable, participated in evaluation Pt Amnestic to Procedure: Yes Nausea / Vomiting: adequately controlled Pain: adequately controlled Airway Patency, RR, SpO2: stable & adequate BP & HR: stable & adequate Hydration State: stable & adequate Anesthetic Complications: no major complications apparent
[2018-01-08 20:17] LABS: HEMATOCRIT 34.1 % (37-47); HEMOGLOBIN 10.7 g/dL (12.0-16.0)
[2018-01-08] MEDS: MONTELUKAST SOD 10 MG TAB PO SCH (21:00)
[2018-01-08] MEDS: QUETIAPINE FUMARATE 200 MG TAB PO SCH (21:00)
[2018-01-08] MEDS: MIRTAZAPINE TAB 15 MG TAB PO SCH (21:00)
[2018-01-08] MEDS: HYDROmorphone INJ 2 MG/ML SYR/VIAL IV PRN (21:20)
[2018-01-08] MEDS: DEXAMETHASONE INJ 10 MG in SYRINGE 0 ML IV SCH (21:30)
[2018-01-08] MEDS: SODIUM CHLORIDE 0.9% 1000ML 1,000 ML IV SCH (21:30)
[2018-01-09] VITALS (14 sets, daily range): BP systolic 120–159; BP diastolic 61–125; PULSE 65–114; TEMP 36.4–36.9; O2SAT 86–98
[2018-01-09] MEDS: ALBUT/IPRATROP 3MG/0.5MG NEB 3 ML VIAL INH SCH ×7 (01:45→19:23)
[2018-01-09] MEDS ORDERED: VANCOMYCIN TROUGH ONE (03:30)
[2018-01-09] MEDS: DEXAMETHASONE INJ 10 MG in SYRINGE 0 ML IV SCH ×3 (04:03→19:44)
[2018-01-09] MEDS: VANCOMYCIN IV 1,250 MG in SODIUM CHLORIDE 0.9% 250ML 250 ML IV SCH ×2 (04:04→17:23)
[2018-01-09] MEDS: NAFCILLIN SOD IV 2 GM in DEXTROSE 5% ADD-VANTAGE 100ML 100 ML IV SCH ×5 (04:04→20:45)
[2018-01-09] MEDS: LEVOTHYROXINE 25 MCG TAB PO SCH (05:54)
[2018-01-09] MEDS ORDERED: BISACODYL 10 MG SUPP PR PRN (06:00)
[2018-01-09] MEDS ORDERED: BISACODYL 5 MG TABEC PO PRN (06:00)
[2018-01-09 06:13] LABS: HEMATOCRIT 26.8 % (37-47); HEMOGLOBIN 8.4 g/dL (12.0-16.0); MEAN CELL VOLUME 81.5 fL (80-100); MEAN CORPUSCULAR HEMOGLOBIN 25.5 pg (25-34); MEAN CORPUSCULAR HGB CONC 31.3 g/dl (32-36); MEAN PLATELET VOLUME 8.1 fL (7.4-10.4); PLATELET COUNT 380 K/uL (130-400); RED CELL DISTRIBUTION WIDTH CV 18.2 % (11.5-14.5); RED CELL DISTRIBUTION WIDTH SD 54.7 fL (36.4-46.3); WHITE BLOOD COUNT 9.98 K/uL (4.8-10.8)
[2018-01-09 06:50] LABS: CALCIUM 7.8 mg/dl (8.5-10.1); CREATININE 0.75 mg/dl (0.60-1.20); POTASSIUM 4.3 mmol/L (3.5-5.1)
[2018-01-09] MEDS: ARFORMOTEROL TART 15MCG/2ML VIAL INH SCH ×2 (06:50→19:23)
[2018-01-09] MEDS: BUDESONIDE 0.5 MG/2 ML VIAL (PULMICORT) INH SCH ×2 (06:51→19:23)
[2018-01-09] MEDS: SODIUM CHLORIDE 0.9% 1000ML 1,000 ML IV SCH ×2 (08:00→20:45)
[2018-01-09] MEDS: INSULIN ASPART 100 UNITS/ML 3 ML PEN SC SCH ×4 (08:15→21:00)
[2018-01-09] MEDS: TIOTROPIUM BROMIDE 5 PUFF/90 MCG INH INH SCH (08:17)
[2018-01-09] MEDS: METOPROLOL TARTRATE 25 MG TAB PO SCH ×2 (08:18→21:43)
[2018-01-09] MEDS: POLYETHYLENE (MIRALAX) 17 GM PACK PO SCH (08:18)
[2018-01-09] MEDS: CHOLECALCIFEROL 400 INTER.UNIT TAB PO SCH (08:18)
[2018-01-09] MEDS: ROFLUMILAST 500 MCG TAB PO SCH (08:18)
[2018-01-09] MEDS: ESCITALOPRAM OXALATE 10 MG TAB PO SCH (08:18)
[2018-01-09] MEDS: ATORVASTATIN 40 MG TAB PO SCH (08:18)
[2018-01-09] MEDS: PANTOprazole SOD 40 MG TAB PO SCH ×2 (08:19→21:44)
[2018-01-09] MEDS: THEOPHYLLINE 400MG CONTROLLED REL TAB PO SCH (08:19)
[2018-01-09] MEDS ORDERED: MAGNESIUM SULFATE 1GM / D5W 100 ML IV STA (09:13)
--- NOTE | 2018-01-09 09:22 | ORTHOPEDICS PROGRESS NOTE ---
DATE: 01/09/2018 Approximately 9:00 a.m. SUBJECTIVE: She is now approximately 14 hours post decompression of the lumbar spine epidural abscess that spanned from the lumbar 2 area down to the S2 area of the spine, quite a significant problem. OBJECTIVE: She is alert, oriented, feels well. Moves all extremities. She remains afebrile. Drains are working appropriately. Blood pressure slightly elevated. Hemoglobin 8.4. PLAN: We will try to get up with physical therapy today, maybe just at bedside, get a walking. I would push it all too much, so eventually need rehabilitation. As well, the epidural abscess can reoccur depending on the nidus of the infection. I will follow her closely on a daily basis.
--- NOTE | 2018-01-09 09:24 | Cardiology Follow-Up ---
Subjective Date of Service: Jan 09, 2018. Pt evaluation today including: conversation w/ patient, physical exam, chart review, lab review, review of studies, review of inpatient medication list History of Present Illness This morning the patient claims to be feeling better. Her back and right leg discomfort appear improved. She states that her breathing is good. She does not have pain other sites. He states that the swelling in her left thumb is also improved. Social History Smoking Status: Never Smoker History of Alcohol Use: No Review of Systems Respiratory: + cough, + shortness of breath (chronic - reporting baseline) Cardiac: No chest pain Per HPI. Patient did not report lower extremity edema. She did report some melena. Objective Vital Signs Past 12 Hours Date Time Temp Pulse Resp B/P (MAP) Pulse Ox O2 Delivery O2 Flow Rate FiO2 01/09/18 07:38 36.4 86 18 159/125 (136) 94 01/09/18 06:51 79 16 98 Nasal Cannula 3.0 01/09/18 04:16 36.4 74 18 129/85 (100) 97 Nasal Cannula 3.0 01/09/18 04:00 Nasal Cannula 3.0 01/09/18 01:45 88 16 96 Nasal Cannula 3.0 01/08/18 23:59 Nasal Cannula 3.0 01/08/18 23:20 36.3 88 18 132/73 (92) 93 Nasal Cannula 3.0 01/08/18 22:20 36.3 91 18 72/ (24) 96 Nasal Cannula 3.0 Last Recorded Weight-Kilograms: 84.100 Physical Exam Constitutional: General Apperance: well-nourished, well-developed Level of Distress: NAD, chronically ill Lungs: Auscultation: decreased breath sounds Cardiovascular: Apical Impulse: not displaced Peripheral Pulses: Bruits: none appreciated Carotid Pulse: normal on the left, normal on the right Radial Pulse: normal on the left, normal on the right Dorsalis Pedis Pulse: decreased on the left, decreased on the right She is alert and oriented x3. Mood affect appear normal. She answered all questions appropriately. HEENT: Sclerae are anicteric. Pupils are equal and reactive to light and accommodation. Extraocular movements were intact. Neuro: Cranial nerves intact Neck: Examination of the submandibular region did not reveal any significant lymphadenopathy. Carotids are palpable bilaterally and free of bruits on auscultation. There was no evidence of jugular venous distention but she was lying flat. The thyroid was not enlarged. Lungs: Lungs are clear to auscultation bilaterally. Occasional expiratory wheeze but no rhonchi or rales. She has normal respiratory effort without use of accessory muscles. There is normal pulmonary excursion. Cardiac: The rhythm was regular. S1 and S2 were normal. There are no murmurs on examination. The PMI was not markedly displaced on palpation. Abdomen: The abdomen was soft. Extremities: Patient has bilateral radial pulses that are equal in intensity. There is no evidence cyanosis or clubbing. There was no evidence of significant peripheral edema bilaterally. Skin: There are no rashes noted on examination today. Left thumb appears less swollen and erythematous. Data Laboratory Results: Last 24 Hours Test 01/08/18 11:25 01/08/18 13:35 01/08/18 16:16 01/08/18 17:14 Bedside Glucose 188 mg/dl 169 mg/dl 168 mg/dl Vancomycin Level Trough 18.8 mcg/ml Test 01/08/18 19:29 01/08/18 20:04 01/09/18 05:50 01/09/18 06:48 Bedside Glucose 154 mg/dl 231 mg/dl Hemoglobin 10.7 g/dL 8.4 g/dL Hematocrit 34.1 % 26.8 % White Blood Count 9.98 K/uL Red Blood Count 3.29 M/uL Mean Corpuscular Volume 81.5 fL Mean Corpuscular Hemoglobin 25.5 pg Mean Corpuscular Hemoglobin Concent 31.3 g/dl RDW Standard Deviation 54.7 fL RDW Coefficient of Variation 18.2 % Platelet Count 380 K/uL Mean Platelet Volume 8.1 fL Sodium Level 137 mmol/L Potassium Level 4.3 mmol/L Chloride Level 105 mmol/L Carbon Dioxide Level 29 mmol/L Anion Gap 3.0 mmol/L Blood Urea Nitrogen 12 mg/dl Creatinine 0.75 mg/dl Est Creatinine Clear Calc Drug Dose 68.6 ml/min Estimated GFR () 91.7 Estimated GFR (Non- 79.1 BUN/Creatinine Ratio 15.6 Random Glucose 252 mg/dl Calcium Level 7.8 mg/dl Magnesium Level 1.9 mg/dl Telemetry reviewed: Assessment and Plan 1. Septic emboli: Presumed endocarditis. Patient underwent decompression and drainage of lumbar abscess yesterday. She appears to have done very well. If the transesophageal echocardiogram will change her management this could likely be performed on Thursday with anesthesia support. 2. History of non ST-elevation myocardial infarction: No current symptoms to suggest coronary insufficiency or angina 3. Prolonged QT interval: Currently normal
[2018-01-09] MEDS: HYDROmorphone INJ 2 MG/ML SYR/VIAL IV PRN (14:40)
[2018-01-09] MEDS ORDERED: COUGH DROP (SUGAR FREE) LOZ 24 LOZ/1 BOX LOZ ONE (17:15)
--- NOTE | 2018-01-09 17:47 | Hospitalist Progress Note ---
Hospitalist Progress Note Date of Service Jan 09, 2018. Subjective Pt evaluation today including: conversation w/ patient, conversation w/ construction consultant (Orthopedic surgery, infectious disease) Voiding: heller catheter in place Patient feeling a little short of breath as she just moved from the chair back to the bed. She was out of bed to chair for several hours. Reports a little soreness in her back but overall much improved since before the back surgery. Remains afebrile. Blood cultures from yesterday again growing out GPC, wound culture from the back growing staph aureus. She denies chest pain or pressure, is tolerating p.o. very well, no nausea or vomiting, is not moving her bowels yet. No abdominal pain. Telemetry with normal sinus rhythm, PVCs, rates in the 80s-90s. All Other Systems: Reviewed and Negative Objective Vital Signs Date Time Temp Pulse Resp B/P (MAP) Pulse Ox O2 Delivery O2 Flow Rate FiO2 01/09/18 16:00 Nasal Cannula 3.0 01/09/18 15:30 36.7 108 22 120/61 (80) 91 Nasal Cannula 3.0 01/09/18 15:06 94 16 98 Nasal Cannula 3.0 01/09/18 13:45 80 16 95 Nasal Cannula 3.0 01/09/18 12:00 Nasal Cannula 3.0 01/09/18 11:37 36.7 65 18 128/66 (86) 95 Nasal Cannula 01/09/18 11:06 79 16 91 Nasal Cannula 3.0 01/09/18 08:00 Nasal Cannula 3.0 01/09/18 07:38 36.4 86 18 159/125 (136) 94 01/09/18 06:51 79 16 98 Nasal Cannula 3.0 01/09/18 04:16 36.4 74 18 129/85 (100) 97 Nasal Cannula 3.0 01/09/18 04:00 Nasal Cannula 3.0 01/09/18 01:45 88 16 96 Nasal Cannula 3.0 01/08/18 23:59 Nasal Cannula 3.0 01/08/18 23:20 36.3 88 18 132/73 (92) 93 Nasal Cannula 3.0 01/08/18 22:20 36.3 91 18 72/ (24) 96 Nasal Cannula 3.0 01/08/18 21:20 78 20 131/74 (93) 95 Nasal Cannula 3.0 01/08/18 20:50 89 20 163/76 (105) 97 Nasal Cannula 3.0 01/08/18 20:20 Nasal Cannula 2.0 01/08/18 20:20 36.6 82 15 166/80 (108) 96 Nasal Cannula 2.0 01/08/18 20:12 85 17 01/08/18 19:59 85 17 01/08/18 19:59 83 17 93 01/08/18 19:56 172/78 01/08/18 19:55 171/95 01/08/18 19:54 86 23 89 01/08/18 19:54 81 23 01/08/18 19:51 165/114 01/08/18 19:49 95 25 90 01/08/18 19:49 89 25 01/08/18 19:49 36.2 81 16 166/86 96 Nasal Cannula 2 01/08/18 19:48 83 28 01/08/18 19:48 89 28 97 01/08/18 19:46 157/74 01/08/18 19:43 94 20 95 01/08/18 19:43 88 20 01/08/18 19:41 165/88 01/08/18 19:38 100 16 93 01/08/18 19:38 91 16 01/08/18 19:33 90 24 100 Mask 13.0 01/08/18 19:33 86 18 01/08/18 19:33 90 18 100 01/08/18 19:31 165/81 01/08/18 19:29 163/80 01/08/18 19:28 97 20 01/08/18 19:28 96 20 100 01/08/18 19:24 163/90 01/08/18 19:23 96 24 100 01/08/18 19:23 98 24 01/08/18 19:23 36.0 95 20 163/90 100 Oxymask 10 Physical Exam General Appearance: WD/WN, no apparent distress Eyes: normal inspection, sclerae normal ENT: hearing grossly normal Neck: trachea midline Respiratory/Chest: no respiratory distress, no accessory muscle use, + decreased breath sounds (Diminished throughout with diffuse inspiratory and expiratory wheezes and a few rhonchi) Cardiovascular: regular rate, rhythm, no edema, no murmur Abdomen: normal bowel sounds, non tender, soft Extremities: non-tender, normal inspection, no pedal edema, no calf tenderness , + pertinent finding (Left thumb IP joint with no erythema or swelling, no tenderness and improved range of motion) Neurologic/Psychiatric: no motor/sensory deficits, alert, normal mood/affect, oriented x 3 Skin: normal color, warm/dry, no rash Laboratory Results Last 24 Hours Test 01/08/18 19:29 01/08/18 20:04 01/09/18 05:50 01/09/18 06:48 Bedside Glucose 154 mg/dl 231 mg/dl Hemoglobin 10.7 g/dL 8.4 g/dL Hematocrit 34.1 % 26.8 % White Blood Count 9.98 K/uL Red Blood Count 3.29 M/uL Mean Corpuscular Volume 81.5 fL Mean Corpuscular Hemoglobin 25.5 pg Mean Corpuscular Hemoglobin Concent 31.3 g/dl RDW Standard Deviation 54.7 fL RDW Coefficient of Variation 18.2 % Platelet Count 380 K/uL Mean Platelet Volume 8.1 fL Sodium Level 137 mmol/L Potassium Level 4.3 mmol/L Chloride Level 105 mmol/L Carbon Dioxide Level 29 mmol/L Anion Gap 3.0 mmol/L Blood Urea Nitrogen 12 mg/dl Creatinine 0.75 mg/dl Est Creatinine Clear Calc Drug Dose 68.6 ml/min Estimated GFR () 91.7 Estimated GFR (Non- 79.1 BUN/Creatinine Ratio 15.6 Random Glucose 252 mg/dl Calcium Level 7.8 mg/dl Magnesium Level 1.9 mg/dl Test 01/09/18 11:03 01/09/18 16:23 Bedside Glucose 225 mg/dl 161 mg/dl Assessment and Plan Patient is a 72-year-old female with history of severe COPD, chronic hypoxic respiratory failure, prolonged QT, psychosis NOS, ovarian cancer, GERD, chronic diastolic CHF, DM 2, a history of PE on long-term anticoagulation, who presented with epistaxis, suspected hematemesis, and question of fevers. Noted to have left thumb IP erythema and edema with pain, as well as lower back pain. 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 with septic emboli and also with septic pelvic thrombophlebitis and thrombus Sepsis/MSSA Bacteremia/epidural abscess/septic Emboli/suspected SBE/early meningitis- - MRI with abscess at S1/S2 possible other developing abscess; suspected meningitis; acute septic pelvic thrombophlebitis Now status post urgent spinal decompression on 01/08-appreciate orthopedic spine consultation -Appreciate infectious disease consultation -Continue nafcillin and vancomycin -Follow all cultures which continue to be positive for gram-positive cocci in the blood and now the epidural abscess -Repeat blood cultures again this morning and follow until negative -Will need PICC line eventually and at least 6 weeks of antibiotics for epidural abscess and presumed SBE -Consideration for AARON on Thursday to assess the severity of the vegetation on the valve Acute R Common Iliac and Internal Iliac Vein Septic Thrombophlebitis: - Had IVF filter placed by Dr. Matamoros on 01/08 -will eventually need to be placed back on anticoagulation when okay with orthopedic surgery-previously on Xarelto Hematemesis with Acute Blood Loss Anemia: Esophagitis vs Posterior Nose Bleed with Emesis on Xarelto: Resolved - Transfused 2 units on 01/07 with stabilization of Hgb -Hemoglobin now slightly decreased after spinal surgery to 8.4 - EGD on 01/07 - evidence of reflux esophagitis without bleeding - Xarelto remains on hold - Protonix 40 mg BID - GI following - appreciate recommendations -Follow CBC Abdominal Pain: RESOLVED - CT with findings of distended GB and U/S confirming mild distention with sludge but no wall thickening - could be evaluated in future as currently asymptomatic and acutely ill due to septic emboli/bacteremia Fluid and Electrolytes - Hypokalemia, Hypomagnesemia, and Hyponatremia - Likely from Dehydration on admission: Resolved - Continue to monitor electrolytes and replete as necessary L Thumb Erythema and Edema: Resolved with treatment with antibiotics -Likely septic joint from emboli as source of pain/redness/swelling DARI: RESOLVED - Continue to monitor renal function - this was likely in the setting of pre- renal changes/dehydration Chronic Hypoxic Respiratory Failure 2/2 COPD without Exacerbation: Baseline 2-3 L NC - Duonebs CHU; Brovana BID; Pulmicort BID; Singulair 10 mg HS; Daliresp 500 mcg daily; Theophylline 400 mg daily; Spiriva 1 puff daily CAD with NSTEMI (December 10, 2017): Cardiac catheterization at that time was clean - ASA on hold given bleed -Continue atorvastatin 80 mg daily; continue Lopressor 25 mg BID Prolonged QT-likely was secondary to psychiatric medications, however is resolved on repeat ECG -Keep electrolytes replete Depression/Anxiety: STABLE - Lexapro 10 mg daily; Klonopin 0.5 mg BID PRN; Remeron 30 mg HS; Seroquel 200 mg HS T2DM: - Continue SSI and monitor BSGs H/O PE and Ovarian CA: - Holding Xarelto at this time - Ovarian CA was diagnosed in mid-twenties; hasn't required any further evaluation OA: -Should not be on meloxicam given that she is on anticoagulation -Acetaminophen as needed DVT Prophylaxis: SCDs Code Status: FULL RESUSCITATION Disposition: PT/OT evaluations -LOLA Magana previously updated sister Carmen over the phone extensively. Explained the concern of difficulty weaning from ventilator after surgery and discussed who the POA would be in this situation. Carmen states that her sister wanted her to be the POA but she states she did not sign for that and thought she should "pick someone younger". Carmen states she has a POA paper from [facility] that names Gladis Delarosa or possibly Ana as POA with phone number [phone].
[2018-01-09] MEDS: QUETIAPINE FUMARATE 200 MG TAB PO SCH (21:42)
[2018-01-09] MEDS: MIRTAZAPINE TAB 15 MG TAB PO SCH (21:43)
[2018-01-09] MEDS: MONTELUKAST SOD 10 MG TAB PO SCH (21:44)
[2018-01-10] VITALS (23 sets, daily range): BP systolic 104–162; BP diastolic 60–82; PULSE 68–99; TEMP 36.4–37.1; O2SAT 91–100
[2018-01-10] MEDS: NAFCILLIN SOD IV 2 GM in DEXTROSE 5% ADD-VANTAGE 100ML 100 ML IV SCH ×7 (00:21→23:36)
[2018-01-10] MEDS: ALBUT/IPRATROP 3MG/0.5MG NEB 3 ML VIAL INH SCH ×6 (01:56→22:30)
[2018-01-10] MEDS: DEXAMETHASONE INJ 10 MG in SYRINGE 0 ML IV SCH (04:05)
[2018-01-10 05:39] LABS: HEMATOCRIT 24.3 % (37-47); HEMOGLOBIN 7.6 g/dL (12.0-16.0); MEAN CELL VOLUME 80.5 fL (80-100); MEAN CORPUSCULAR HEMOGLOBIN 25.2 pg (25-34); MEAN CORPUSCULAR HGB CONC 31.3 g/dl (32-36); MEAN PLATELET VOLUME 7.8 fL (7.4-10.4); PLATELET COUNT 344 K/uL (130-400); RED CELL DISTRIBUTION WIDTH CV 18.4 % (11.5-14.5); RED CELL DISTRIBUTION WIDTH SD 54.8 fL (36.4-46.3); WHITE BLOOD COUNT 10.55 K/uL (4.8-10.8)
[2018-01-10] MEDS: LEVOTHYROXINE 25 MCG TAB PO SCH (05:46)
[2018-01-10 06:41] LABS: CALCIUM 7.7 mg/dl (8.5-10.1); CREATININE 0.88 mg/dl (0.60-1.20); POTASSIUM 3.6 mmol/L (3.5-5.1)
[2018-01-10] MEDS: ARFORMOTEROL TART 15MCG/2ML VIAL INH SCH ×2 (06:56→18:01)
[2018-01-10] MEDS: BUDESONIDE 0.5 MG/2 ML VIAL (PULMICORT) INH SCH ×2 (06:57→18:01)
[2018-01-10] MEDS ORDERED: VANCOMYCIN TROUGH ONE (07:30)
[2018-01-10] MEDS: INSULIN ASPART 100 UNITS/ML 3 ML PEN SC SCH ×4 (08:26→21:00)
[2018-01-10] MEDS: TIOTROPIUM BROMIDE 5 PUFF/90 MCG INH INH SCH (08:27)
[2018-01-10] MEDS: ESCITALOPRAM OXALATE 10 MG TAB PO SCH (08:27)
[2018-01-10] MEDS: ROFLUMILAST 500 MCG TAB PO SCH (08:27)
[2018-01-10] MEDS: THEOPHYLLINE 400MG CONTROLLED REL TAB PO SCH (08:28)
[2018-01-10] MEDS: METOPROLOL TARTRATE 25 MG TAB PO SCH ×2 (08:28→21:42)
[2018-01-10] MEDS: PANTOprazole SOD 40 MG TAB PO SCH ×2 (08:28→21:42)
[2018-01-10] MEDS: POLYETHYLENE (MIRALAX) 17 GM PACK PO SCH (08:28)
[2018-01-10] MEDS: ATORVASTATIN 40 MG TAB PO SCH (08:28)
[2018-01-10] MEDS: CHOLECALCIFEROL 400 INTER.UNIT TAB PO SCH (08:28)
[2018-01-10] MEDS: VANCOMYCIN IV 1,250 MG in SODIUM CHLORIDE 0.9% 250ML 250 ML IV SCH (08:31)
--- NOTE | 2018-01-10 10:06 | ORTHOPEDICS PROGRESS NOTE ---
DATE: 01/10/2018 SUBJECTIVE: She is alert, oriented, comfortable this morning. She communicates well. She has no chest pain, shortness of breath, leg difficulty. OBJECTIVE: Vital signs are stable. Her hematocrit has dropped to 24.3. Glucose 247, sodium 137, potassium 3.6. She is relatively stable. ASSESSMENT: Delightful patient with many comorbidities with an epidural abscess that we decompressed on 01/08/2018. She is improved, stable. DISPOSITION: We will change her dressing today, pull her drain. She is asymptomatic with the low hematocrit. So a transfusion is not mandatory, but possible. I also put up an order in for rehab placement and discharge management.
[2018-01-10] MEDS ORDERED: BISACODYL 5 MG TABEC PO ONE (12:27)
[2018-01-10] MEDS ORDERED: DOCUSATE SODIUM/SENNA 50/8.6MG TAB PO ONE (12:30)
--- NOTE | 2018-01-10 12:40 | Hospitalist Progress Note ---
Hospitalist Progress Note Date of Service Jan 10, 2018. Subjective Pt evaluation today including: conversation w/ patient, conversation w/ aerodynamic consultant (Cardiology) Patient has some soreness in her back. Hemodynamically stable today, however hemoglobin down 7.6. Transfusing 2 units PRBCs currently. She denies chest pain. Her shortness of breath is a little bit worse today. She is coughing and wheezing quite a bit, cough is nonproductive. Telemetry with normal sinus rhythm and some PACs. Remains afebrile. Constitutional: No fever, No chills Respiratory: + cough, + shortness of breath, No sputum Cardiovascular: No chest pain Abdomen: + constipation, No pain All Other Systems: Reviewed and Negative Objective Vital Signs Date Time Temp Pulse Resp B/P (MAP) Pulse Ox O2 Delivery O2 Flow Rate FiO2 01/10/18 12:03 36.9 79 20 158/79 97 3.0 01/10/18 11:30 78 16 148/78 100 3.0 01/10/18 11:12 75 16 97 Nasal Cannula 3.0 01/10/18 11:00 36.7 75 18 138/80 99 3.0 01/10/18 10:45 36.7 76 20 162/75 100 3.0 01/10/18 10:30 36.7 78 18 137/74 100 3.0 01/10/18 10:15 36.9 88 20 133/69 97 3.0 01/10/18 09:55 36.8 90 16 144/64 99 3.0 01/10/18 07:52 37.0 77 16 134/68 (90) 98 Nasal Cannula 01/10/18 06:57 79 16 97 Nasal Cannula 3.0 01/10/18 04:25 36.9 85 18 127/74 (91) 98 Nasal Cannula 3.0 01/10/18 04:00 93 Nasal Cannula 3.0 100 01/10/18 01:57 89 22 93 Nasal Cannula 3.0 01/10/18 00:01 91 Nasal Cannula 3.0 01/09/18 23:31 36.9 102 20 120/70 (87) 93 Nasal Cannula 3.0 01/09/18 20:00 91 Nasal Cannula 3.0 01/09/18 19:27 36.7 102 22 134/73 (93) 97 Nasal Cannula 4.0 100 01/09/18 19:23 110 22 86 Nasal Cannula 3.0 01/09/18 17:41 114 20 86 Nasal Cannula 3.0 01/09/18 16:00 Nasal Cannula 3.0 01/09/18 15:30 36.7 108 22 120/61 (80) 91 Nasal Cannula 3.0 01/09/18 15:06 94 16 98 Nasal Cannula 3.0 01/09/18 13:45 80 16 95 Nasal Cannula 3.0 Physical Exam General Appearance: WD/WN, no apparent distress (But mild distress with cough) Eyes: normal inspection, sclerae normal ENT: hearing grossly normal Neck: trachea midline Respiratory/Chest: no respiratory distress, no accessory muscle use, + wheezing (Diffusely) Cardiovascular: regular rate, rhythm, no edema, no murmur Abdomen: normal bowel sounds, non tender, soft Extremities: no pedal edema, no calf tenderness, + pertinent finding (Back with dressing in place and is clean dry and intact) Neurologic/Psychiatric: alert, normal mood/affect Skin: normal color, warm/dry, no rash, + pertinent finding (Multiple ecchymotic regions on the arms) Laboratory Results Last 24 Hours Test 01/09/18 16:23 01/09/18 20:03 01/10/18 05:14 01/10/18 06:59 Bedside Glucose 161 mg/dl 222 mg/dl 247 mg/dl White Blood Count 10.55 K/uL Red Blood Count 3.02 M/uL Hemoglobin 7.6 g/dL Hematocrit 24.3 % Mean Corpuscular Volume 80.5 fL Mean Corpuscular Hemoglobin 25.2 pg Mean Corpuscular Hemoglobin Concent 31.3 g/dl RDW Standard Deviation 54.8 fL RDW Coefficient of Variation 18.4 % Platelet Count 344 K/uL Mean Platelet Volume 7.8 fL Sodium Level 137 mmol/L Potassium Level 3.6 mmol/L Chloride Level 103 mmol/L Carbon Dioxide Level 31 mmol/L Anion Gap 3.0 mmol/L Blood Urea Nitrogen 17 mg/dl Creatinine 0.88 mg/dl Est Creatinine Clear Calc Drug Dose 59.3 ml/min Estimated GFR () 75.5 Estimated GFR (Non- 65.2 BUN/Creatinine Ratio 19.6 Random Glucose 231 mg/dl Calcium Level 7.7 mg/dl Magnesium Level 1.9 mg/dl Test 01/10/18 07:13 4/29/18 11:24 Vancomycin Level Trough 21.6 mcg/ml Bedside Glucose 161 mg/dl Assessment and Plan Patient is a 72-year-old female with history of severe COPD, chronic hypoxic respiratory failure, prolonged QT, psychosis NOS, ovarian cancer status post LEOLA /BSO, GERD, chronic diastolic CHF, DM 2, a history of PE on long-term anticoagulation, who presented with epistaxis, suspected hematemesis, and question of fevers. Noted to have left thumb IP erythema and edema with pain, as well as lower back pain. 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 with septic emboli and also with septic pelvic thrombophlebitis and thrombus Sepsis/MSSA Bacteremia/epidural abscess/septic Emboli/suspected SBE/early meningitis-continues to have positive blood cultures with MSSA, epidural abscess also with MSSA - MRI with abscess at S1/S2 possible other developing abscess; suspected meningitis; acute septic pelvic thrombophlebitis Now status post urgent spinal decompression on 01/08-appreciate orthopedic spine consultation-seems to be having normal postoperative recovery -Appreciate infectious disease consultation -Continue nafcillin and will now discontinue vancomycin given absence of MRSA -Follow all cultures which continue to be positive for gram-positive cocci in the blood on most recent culture from 01/09 -Repeat blood cultures again this morning and follow until negative -Will need PICC line eventually and at least 6 weeks of antibiotics for epidural abscess and presumed SBE -Plan for AARON on Thursday to assess the severity of the vegetation on the valve -DC IV fluids Acute R Common Iliac and Internal Iliac Vein Septic Thrombophlebitis: - Had IVF filter placed by Dr. Matamoros on 01/08 -will eventually need to be placed back on anticoagulation when okay with orthopedic surgery-previously on Xarelto Hematemesis with Acute Blood Loss Anemia: Esophagitis vs Posterior Nose Bleed with Emesis on Xarelto: Resolved. - EGD on 01/07 - evidence of reflux esophagitis without bleeding - Transfused 2 units on 01/07 with stabilization of Hgb -Hemoglobin now decreased after spinal surgery to 7.6 -Transfuse 2 units PRBCs on 01/10 - Xarelto remains on hold -Continue Protonix 40 mg BID - GI consultation appreciated -Follow CBC Abdominal Pain: RESOLVED - CT with findings of distended GB and U/S confirming mild distention with sludge but no wall thickening Constipation-no bowel movement in 3-4 days -Continue MiraLAX daily -Make bisacodyl 5 mg p.o. once daily as a scheduled dose Add on docusate/senna once daily FEN-hypokalemia, Hypomagnesemia, and Hyponatremia - Likely from Dehydration on admission: Resolved - Continue to monitor electrolytes and replete as necessary -DC IV fluids L Thumb Erythema and Edema: Resolved with treatment with antibiotics -Likely septic joint from emboli as source of pain/redness/swelling DARI: RESOLVED - Continue to monitor renal function - this was likely in the setting of pre- renal changes/dehydration Chronic Hypoxic Respiratory Failure 2/2 COPD without Exacerbation: Baseline 2-3 L NC, some increased cough today -Continue Duonebs CHU; Brovana BID; Pulmicort BID; Singulair 10 mg HS; Daliresp 500 mcg daily; Theophylline 400 mg daily; Spiriva 1 puff daily -Is receiving IV Decadron post operatively for the back surgery which may help her lungs as well CAD with NSTEMI (December 10, 2017): Cardiac catheterization at that time was clean - ASA on hold given bleed -Continue atorvastatin 80 mg daily; continue Lopressor 25 mg BID Prolonged QT-likely was secondary to psychiatric medications, however is resolved on repeat ECG -Keep electrolytes replete Depression/Anxiety: STABLE -Continue Lexapro 10 mg daily; Klonopin 0.5 mg BID PRN; Remeron 30 mg HS; Seroquel 200 mg HS T2DM: - Continue SSI and monitor BSGs H/O PE and Ovarian CA status post LEOLA/BSO 40 years ago: - Holding Xarelto at this time - Ovarian CA was diagnosed in mid-twenties; hasn't required any further evaluation OA: -Should not be on meloxicam given that she is on anticoagulation -Acetaminophen as needed DVT Prophylaxis: SCDs Code Status: FULL RESUSCITATION Disposition: PT/OT evaluations needed when okay with orthopedic surgery, will likely need rehab placement -LOLA Magana previously updated sister Carmen over the phone extensively. Explained the concern of difficulty weaning from ventilator after surgery and discussed who the POA would be in this situation. Carmen states that her sister wanted her to be the POA but she states she did not sign for that and thought she should "pick someone younger". Carmen states she has a POA paper from [facility] that names Gladissusanna Delarosa or possibly Ana as POA with phone number [phone]. -Stable for transfer to medical floor
[2018-01-10] MEDS ORDERED: NURSING VERBAL MED ORDER ONE ×2 (15:45→17:30)
[2018-01-10] MEDS ORDERED: ALBUTEROL 0.083% NEBU SOLN 3 ML VIAL INH PRN (17:45)
[2018-01-10] MEDS: OXYCODONE/ACETAMINOPHEN 5-325 TAB PO PRN (20:50)
[2018-01-10] MEDS: MIRTAZAPINE TAB 15 MG TAB PO SCH (21:41)
[2018-01-10] MEDS: MONTELUKAST SOD 10 MG TAB PO SCH (21:41)
[2018-01-10] MEDS: QUETIAPINE FUMARATE 200 MG TAB PO SCH (21:42)
[2018-01-11] VITALS (19 sets, daily range): BP systolic 95–153; BP diastolic 57–84; PULSE 72–103; TEMP 36.2–37.2; O2SAT 90–97
[2018-01-11] MEDS ORDERED: NURSING DECISION MEDICATION ORDER SCH (01:45)
[2018-01-11] MEDS: ALBUT/IPRATROP 3MG/0.5MG NEB 3 ML VIAL INH SCH ×5 (03:24→19:23)
[2018-01-11] MEDS: NAFCILLIN SOD IV 2 GM in DEXTROSE 5% ADD-VANTAGE 100ML 100 ML IV SCH ×4 (04:17→19:55)
[2018-01-11] MEDS: LEVOTHYROXINE 25 MCG TAB PO SCH (05:27)
[2018-01-11] MEDS ORDERED: INSULIN ASPART 100 UNITS/ML 3 ML PEN SC SCH (06:00)
[2018-01-11 06:04] LABS: HEMATOCRIT 34.3 % (37-47); HEMOGLOBIN 11.3 g/dL (12.0-16.0); MEAN CELL VOLUME 81.5 fL (80-100); MEAN CORPUSCULAR HEMOGLOBIN 26.8 pg (25-34); MEAN CORPUSCULAR HGB CONC 32.9 g/dl (32-36); MEAN PLATELET VOLUME 7.9 fL (7.4-10.4); PLATELET COUNT 330 K/uL (130-400); RED CELL DISTRIBUTION WIDTH CV 17.2 % (11.5-14.5); WHITE BLOOD COUNT 9.27 K/uL (4.8-10.8)
[2018-01-11 06:25] LABS: CALCIUM 8.5 mg/dl (8.5-10.1); CREATININE 0.94 mg/dl (0.60-1.20); POTASSIUM 3.4 mmol/L (3.5-5.1)
[2018-01-11] MEDS: ARFORMOTEROL TART 15MCG/2ML VIAL INH SCH ×3 (07:42→19:23)
[2018-01-11] MEDS: BUDESONIDE 0.5 MG/2 ML VIAL (PULMICORT) INH SCH ×3 (07:42→19:23)
[2018-01-11] MEDS ORDERED: PROPOFOL IV EMULSION 10 MG/ML 20 ML VIAL ONE ×2 (07:44→07:47)
--- NOTE | 2018-01-11 07:50 | Anesthesiology Progress Note ---
Anesthesia Post Op Note Date & Time Jan 11, 2018 at 07:49 Vital Signs Pain Intensity: 7.0 Vital Signs Past 12 Hours Date Time Temp Pulse Resp B/P (MAP) Pulse Ox O2 Delivery O2 Flow Rate FiO2 01/11/18 07:40 91 18 125/66 (85) 98 Room Air 01/11/18 07:35 93 18 130/82 95 Nasal Cannula 6 01/11/18 07:30 94 18 112/59 97 Nasal Cannula 6 01/11/18 07:25 101 18 140/77 97 Nasal Cannula 6 01/11/18 07:05 99 18 138/78 (98) 96 Nasal Cannula 2.0 01/11/18 03:26 75 16 97 Nasal Cannula 2.0 01/10/18 23:15 Nasal Cannula 2.0 01/10/18 23:12 37.0 99 16 124/71 (88) 96 Nasal Cannula 2.0 01/10/18 22:32 85 16 98 Nasal Cannula 3.0 Notes Mental Status: alert / awake / arousable, participated in evaluation Pt Amnestic to Procedure: Yes Nausea / Vomiting: adequately controlled Pain: adequately controlled Airway Patency, RR, SpO2: stable & adequate BP & HR: stable & adequate Hydration State: stable & adequate Anesthetic Complications: no major complications apparent
--- NOTE | 2018-01-11 07:52 | Anesthesiology Progress Note ---
Anesthesia Post Op Note Date & Time Jan 11, 2018 at 07:52 Vital Signs Pain Intensity: 7.0 Vital Signs Past 12 Hours Date Time Temp Pulse Resp B/P (MAP) Pulse Ox O2 Delivery O2 Flow Rate FiO2 01/11/18 07:40 91 18 125/66 (85) 98 Room Air 01/11/18 07:35 93 18 130/82 95 Nasal Cannula 6 01/11/18 07:30 94 18 112/59 97 Nasal Cannula 6 01/11/18 07:25 101 18 140/77 97 Nasal Cannula 6 01/11/18 07:05 99 18 138/78 (98) 96 Nasal Cannula 2.0 01/11/18 03:26 75 16 97 Nasal Cannula 2.0 01/10/18 23:15 Nasal Cannula 2.0 01/10/18 23:12 37.0 99 16 124/71 (88) 96 Nasal Cannula 2.0 01/10/18 22:32 85 16 98 Nasal Cannula 3.0 Notes Mental Status: alert / awake / arousable Pt Amnestic to Procedure: Yes Nausea / Vomiting: adequately controlled Pain: adequately controlled Airway Patency, RR, SpO2: stable & adequate BP & HR: stable & adequate Hydration State: stable & adequate
--- NOTE | 2018-01-11 07:54 | Cardiology Procedure Brief Nt ---
Preliminary Cardiology Note Procedure Date Jan 11, 2018. Pre-Procedure Diagnosis ENDOCARDITIS Post-Procedure Diagnosis same Procedure(s) Performed AARON News Technical Director Leighann Clinical Science Consultant(s) none Estimated Blood Loss none Medication(s) Propofol Preliminary Findings Normal Recommendations none Specimens none Complication(s) None Disposition
--- NOTE | 2018-01-11 07:59 | OPERATIVE REPORT ---
DATE OF OPERATION: 01/08/2018 PREOPERATIVE DIAGNOSIS: Epidural abscess L2-S2. POSTOPERATIVE DIAGNOSIS: Epidural abscess L2-S2. PROCEDURE: 1. Include laminectomy L2-S2; L2, L3, L4, L5, S1 and S2 laminectomy, foraminotomy, partial facetectomy. 2. Evacuation of a hematoma at various aspects of lumbar spine. 3. Packing with gentamicin beads and closure over drain. SURGEON: Dr. Valverde. [employer]ORATORY TECHNICIAN: Kojo Roberson PA-C. COMPLICATIONS: Zero. BLOOD LOSS: 150 mL. DESCRIPTION OF PROCEDURE: Patient was taken to the operating room, a general intubated anesthetic provided to patient, placed prone, scrubbed, prepped and draped sterile. We made a skin incision from L4 to the lower part of the sacrum dissecting the soft tissue, putting a self-retaining retractor. We carefully did a laminectomy all the way up and down the spine from starting it L4-L5 and moving up to L2, then coming back down and doing a laminectomy of S1 and S2. There was pus at various aspects of the spinal canal. It seemed more centered down at L4-L5 and L5-S1. Cultures were also obtained. There was also some pus in the soft tissue region. We evacuated all the pus. We looked high and low for different aspects, probed each and every foramen. I was pleased with the evacuation of the pus formation. We irrigated with a pulse irrigation system approximately 3000 mL of fluid. We closed over vancomycin beads and vancomycin powder, #1 Vicryl over drain, 2-0 in the subcuticular layer, nylon on the skin, sterile dressing applied. The patient returned to PACU stable. Again, no apparent complications and sponge and needle count correct at the close. I attest to the content of the Intraoperative Record and any orders documented therein. Any exception s are noted below.
[2018-01-11] MEDS ORDERED: ATROPINE SULFATE 0.1 MG/ML 5ML SYR IV PRN (08:00)
[2018-01-11] MEDS ORDERED: EpHEDrine SULFATE INJ 50 MG/ML AMP IV PRN (08:00)
[2018-01-11] MEDS ORDERED: MAGNESIUM SULFATE 1GM / D5W 100 ML IV STA (09:06)
[2018-01-11] MEDS ORDERED: POTASSIUM CHLORIDE 20 MEQ TABCR PO STA (09:06)
--- NOTE | 2018-01-11 09:32 | TEE ---
*NOTICE TO RECEIVING REPUBLICAN AGENCY This information is strictly Confidential and protected under [place] law. [place] law prohibits you from making any further disclosure of this information unless further disclosure is expressly permitted by the written consent of the person to whom it pertains or is authorized by law. A general authorization for the release of medical or other information is not sufficient for this purpose. Hospital accepts no responsibility if the information is made available to any other person, INCLUDING THE PATIENT. Interpretation Summary * Name: ROSA HASSAN Study Date: 01/11/2018 07:18 AM BP: 140/91 mmHg * Patient Location: [facility] HR: 95 * : 1945 (M/d/yyyy) Gender: Female Height: 63 in * Age: 72 yrs Ethnicity: CA Weight: 190 lb * Ordering Physician: Christopher. Lawton MD * Performed By: Danielle Reyes RCS * * Reason For Study: Eval for Endocarditis * BSA: 1.9 m2 * -- Conclusions -- * Cannot exclude aortic valvular vegetation. * Mild atherosclerotic plaque(s) in the descending aorta. Procedure Details * AARON Probe #2 utilized for procedure. * The study was performed in Cardiac Catheterization Lab. * Time out was conducted by the physician, nurse, and information technology teacher with positive identification of patient and procedure. * Informed consent for Transesophageal Echocardiogram was obtained prior to the procedure. * An intravenous line was placed. A topical anesthetic agent was used for oropharangeal anesthesia. A bite block was inserted. * Sedation performed by the anesthesia department. * 70 PROPOFOL ADMINISTERED FOR SEDATION Procedure Start Time - 728 Procedure Stop Time - 738 * The patient's vital signs, including blood pressure, heart rate, pulse oximetry and cardiac rhythm were monitored throughout the procedure . * A multifrequency, multiplane transesopheageal echocardiographic endoscope was inserted and manipulated in the standard fashion to achieve multiplane views. * The transesophageal probe was passed without difficulty. * Limited views were obtained. * The patient tolerated the procedure well without evidence of orophangeal or esophageal trauma. * A 2D transesophageal echocardiogram was performed. * A 2D transesophageal echocardiogram with color flow Doppler was performed. * A 2D transesophageal echocardiogram with Doppler and color flow Doppler was performed. Left Ventricle * The left ventricle is grossly normal size. * Left ventricular systolic function is normal. Atria * The interatrial septum is intact with no evidence for an atrial septal defect. Mitral Valve * The mitral valve anatomy is normal. * There is no vegetation seen on the mitral valve. * Significant mitral regurgitation is absent. Tricuspid Valve * The tricuspid valve is not well visualized, but is grossly normal. * There is no tricuspid valve vegetation. Aortic Valve * The aortic valve is normal in structure and function. * The aortic valve is trileaflet. * Cannot exclude aortic valvular vegetation. * Small hyperechoic lesion just under the left coronary cusp which could possibly be a vegetation. * No hemodynamically significant valvular aortic stenosis. * There is no significant aortic regurgitation. Pulmonic Valve * The pulmonic valve is not well visualized. Great Vessels * The aortic root is normal size. * Mild atherosclerotic plaque(s) in the descending aorta. Pericardium * There is no pericardial effusion.
[2018-01-11] MEDS: ESCITALOPRAM OXALATE 10 MG TAB PO SCH (10:09)
[2018-01-11] MEDS: ATORVASTATIN 40 MG TAB PO SCH (10:09)
[2018-01-11] MEDS: PANTOprazole SOD 40 MG TAB PO SCH ×2 (10:09→20:39)
[2018-01-11] MEDS: POLYETHYLENE (MIRALAX) 17 GM PACK PO SCH (10:09)
[2018-01-11] MEDS: DOCUSATE SODIUM/SENNA 50/8.6MG TAB PO SCH (10:09)
[2018-01-11] MEDS: CHOLECALCIFEROL 400 INTER.UNIT TAB PO SCH (10:09)
[2018-01-11] MEDS: METOPROLOL TARTRATE 25 MG TAB PO SCH ×2 (10:09→20:40)
[2018-01-11] MEDS: THEOPHYLLINE 400MG CONTROLLED REL TAB PO SCH (10:10)
[2018-01-11] MEDS: ROFLUMILAST 500 MCG TAB PO SCH (10:10)
[2018-01-11] MEDS: BISACODYL 5 MG TABEC PO SCH (10:14)
[2018-01-11] MEDS: TIOTROPIUM BROMIDE 5 PUFF/90 MCG INH INH SCH (10:32)
--- NOTE | 2018-01-11 10:57 | Progress Note ---
Subjective Date of Service: Jan 11, 2018. Subjective Pt evaluation today including: conversation w/ patient, physical exam, chart review, lab review pt s/p linda this am, final pending. all previous blood cultures + OR cultures ( spinal abscess) with MSSA. tolerating nafcillin. afebrile. c/o back pain. per nursing dressing saturated this am, changed, dry on my exam. no f/c. no abd pain. able to move legs. 01/10 blood cultures pending. all remaining ros reviewed and are negative. Problem List Medical Problems: (1) Acute bronchitis Status: Acute (2) Acute exacerbation of chronic obstructive pulmonary disease Status: Acute (3) Anemia Status: Acute (4) Anemia Status: Acute (5) Anemia Status: Acute (6) COPD exacerbation Status: Acute (7) COPD exacerbation Status: Acute (8) COPD exacerbation Status: Acute (9) COPD exacerbation Status: Acute (10) COPD exacerbation Status: Acute (11) Dehydration Status: Acute (12) ALVAREZ (dyspnea on exertion) Status: Acute (13) Hyperglycemia due to type 2 diabetes mellitus Status: Acute (14) Hypokalemia Status: Acute (15) Hypokalemia Status: Acute (16) Hypomagnesemia Status: Acute (17) Hypomagnesemia Status: Acute (18) Hypomagnesemia Status: Acute (19) Hyponatremia Status: Acute (20) Hypoxia Status: Acute (21) Lactic acidosis Status: Acute (22) Non-ST elevated myocardial infarction Status: Acute (23) Orthostatic hypotension Status: Acute (24) Sepsis Status: Acute (25) Sepsis Status: Acute (26) Shortness of breath Status: Acute (27) Tachypnea Status: Acute Objective Vital Signs Date Time Temp Pulse Resp B/P (MAP) Pulse Ox O2 Delivery O2 Flow Rate FiO2 01/11/18 07:58 83 16 91 Nasal Cannula 2.0 01/11/18 07:50 89 18 124/66 (85) 96 Room Air 01/11/18 07:40 91 18 125/66 (85) 98 Room Air 01/11/18 07:35 93 18 130/82 95 Nasal Cannula 6 01/11/18 07:30 94 18 112/59 97 Nasal Cannula 6 01/11/18 07:25 101 18 140/77 97 Nasal Cannula 6 01/11/18 07:05 99 18 138/78 (98) 96 Nasal Cannula 2.0 01/11/18 03:26 75 16 97 Nasal Cannula 2.0 01/10/18 23:15 Nasal Cannula 2.0 01/10/18 23:12 37.0 99 16 124/71 (88) 96 Nasal Cannula 2.0 01/10/18 22:32 85 16 98 Nasal Cannula 3.0 01/10/18 18:01 73 16 97 Nasal Cannula 3.0 01/10/18 17:15 Nasal Cannula 3.0 01/10/18 15:59 37.1 74 16 132/64 96 2.0 01/10/18 14:53 68 16 94 Nasal Cannula 3.0 01/10/18 14:24 36.8 73 20 128/69 98 01/10/18 13:45 36.5 76 16 110/60 100 3.0 01/10/18 13:30 36.5 82 16 133/82 100 3.0 01/10/18 13:15 36.4 76 20 104/64 100 3.0 01/10/18 12:03 36.9 79 20 158/79 97 3.0 01/10/18 12:00 Nasal Cannula 3.0 01/10/18 11:30 78 16 148/78 100 3.0 01/10/18 11:12 75 16 97 Nasal Cannula 3.0 01/10/18 11:00 36.7 75 18 138/80 99 3.0 Physical Exam General Appearance: WD/WN, no apparent distress Eyes: normal inspection, EOMI Neck: supple Respiratory/Chest: lungs clear, + decreased breath sounds Cardiovascular: regular rate, rhythm, no edema Abdomen: soft Extremities: non-tender, no pedal edema Neurologic/Psychiatric: alert, oriented x 3 Skin: normal color Comments: back incision marisol intact ,tender to touch, no erythema, dressing intact Laboratory Results Item Value Date Time Blood Culture - Preliminary Resulted 01/09/18 0930 Blood Gram Positive Cocci Gram Stain - Final Resulted 01/08/18 1757 Abscess Spinal Disc Blood Culture - Preliminary Resulted 01/07/18 1223 Blood Staphylococcus Aureus Blood Culture - Final Complete 01/05/18 2135 Blood Staphylococcus Aureus Blood Culture - Final Complete 01/08/18 1048 Blood Staphylococcus Aureus Last 24 Hours Test 01/10/18 11:24 01/10/18 17:06 01/10/18 20:12 01/11/18 05:43 Bedside Glucose 161 mg/dl 159 mg/dl 131 mg/dl White Blood Count 9.27 K/uL Red Blood Count 4.21 M/uL Hemoglobin 11.3 g/dL Hematocrit 34.3 % Mean Corpuscular Volume 81.5 fL Mean Corpuscular Hemoglobin 26.8 pg Mean Corpuscular Hemoglobin Concent 32.9 g/dl RDW Standard Deviation 52.0 fL RDW Coefficient of Variation 17.2 % Platelet Count 330 K/uL Mean Platelet Volume 7.9 fL Sodium Level 142 mmol/L Potassium Level 3.4 mmol/L Chloride Level 108 mmol/L Carbon Dioxide Level 30 mmol/L Anion Gap 4.0 mmol/L Blood Urea Nitrogen 22 mg/dl Creatinine 0.94 mg/dl Est Creatinine Clear Calc Drug Dose 55.5 ml/min Estimated GFR () 69.8 Estimated GFR (Non- 60.2 BUN/Creatinine Ratio 23.5 Random Glucose 148 mg/dl Calcium Level 8.5 mg/dl Magnesium Level 1.7 mg/dl Test 01/11/18 05:46 Bedside Glucose 134 mg/dl Assessment and Plan (1) MSSA (methicillin susceptible Staphylococcus aureus) septicemia Assessment & Plan: continue nafcillin, await LINDA results, follow cultures. (2) Spinal abscess Continued [facility] stay due to: multiple IV medications needed Discharge planning: uncertain
[2018-01-11] MEDS ORDERED: NURSING VERBAL MED ORDER ONE (11:00)
[2018-01-11] MEDS: INSULIN ASPART 100 UNITS/ML 3 ML PEN SC SCH ×3 (12:00→20:33)
[2018-01-11] MEDS: ONDANSETRON INJ 2 MG/ML 2 ML VIAL IV PRN (12:42)
--- NOTE | 2018-01-11 13:23 | DIAGNOSTIC IMAGING REPORT ---
CHEST ONE VIEW PORTABLE CLINICAL HISTORY: 72 years-old Female presenting with To check IJ placement. . TECHNIQUE: Portable upright AP view of the chest was obtained. COMPARISON: 01/06/2018. FINDINGS: Interval placement of a right internal jugular Mediport, which terminates in the upper SVC. Atherosclerosis of the aortic arch. Chronic silhouette mildly enlarged. Minimal basilar opacities. No pleural effusion or pneumothorax. Osseous structures normal. Upper abdomen normal. IMPRESSION: 1. Appropriately positioned right internal jugular Mediport. No pneumothorax. 2. Minimal bibasilar atelectasis suggested. Electronically signed by: Callum Avila M.D. 01/11/2018 1:22 PM Dictated Date/Time: 01/11/2018 1:20 PM
[2018-01-11] MEDS: OXYCODONE/ACETAMINOPHEN 5-325 TAB PO PRN ×2 (15:29→20:40)
[2018-01-11] MEDS ORDERED: BISACODYL 5 MG TABEC PO ONE (15:30)
[2018-01-11] MEDS ORDERED: BISACODYL 10 MG SUPP PR PRN (15:30)
--- NOTE | 2018-01-11 15:37 | Hospitalist Progress Note ---
Hospitalist Progress Note Date of Service Jan 11, 2018. Subjective Pt evaluation today including: conversation w/ patient, conversation w/ loans consultant (Cardiology) Back is sore, afebrile. No leg pain or weakness. Was out of bed to chair today. Had AARON this AM-d/w Cardio-possible small vegetation on AV, will treat for SBE. Had emesis earlier today which soaked over her IJ dressing which was changed out and then CXR obtained for IJ positioning and is ok. SOB is better than yesterday. Abdomen: + constipation All Other Systems: Reviewed and Negative Objective Vital Signs Date Time Temp Pulse Resp B/P (MAP) Pulse Ox O2 Delivery O2 Flow Rate FiO2 01/11/18 14:49 37.2 80 18 133/65 (87) 96 Nasal Cannula 2.0 01/11/18 11:51 90 92 01/11/18 11:11 83 16 96 Nasal Cannula 2.0 01/11/18 08:00 36.6 99 20 153/84 (107) 90 Nasal Cannula 2.0 01/11/18 08:00 90 Nasal Cannula 2.0 01/11/18 07:58 83 16 91 Nasal Cannula 2.0 01/11/18 07:50 89 18 124/66 (85) 96 Room Air 01/11/18 07:40 91 18 125/66 (85) 98 Room Air 01/11/18 07:35 93 18 130/82 95 Nasal Cannula 6 01/11/18 07:30 94 18 112/59 97 Nasal Cannula 6 01/11/18 07:25 101 18 140/77 97 Nasal Cannula 6 01/11/18 07:05 99 18 138/78 (98) 96 Nasal Cannula 2.0 01/11/18 03:26 75 16 97 Nasal Cannula 2.0 01/10/18 23:15 Nasal Cannula 2.0 01/10/18 23:12 37.0 99 16 124/71 (88) 96 Nasal Cannula 2.0 01/10/18 22:32 85 16 98 Nasal Cannula 3.0 01/10/18 18:01 73 16 97 Nasal Cannula 3.0 01/10/18 17:15 Nasal Cannula 3.0 01/10/18 15:59 37.1 74 16 132/64 96 2.0 Physical Exam General Appearance: WD/WN, no apparent distress, + obese Eyes: normal inspection, sclerae normal ENT: hearing grossly normal Neck: trachea midline Respiratory/Chest: no respiratory distress, no accessory muscle use, + wheezing (diffuse, improved air movement from yesterday, no rhonchi or crackles) Cardiovascular: regular rate, rhythm, no edema, no murmur Abdomen: normal bowel sounds, non tender, soft Extremities: non-tender, normal inspection, no pedal edema, no calf tenderness Neurologic/Psychiatric: alert, normal mood/affect, oriented x 3 Skin: normal color, warm/dry, no rash Laboratory Results Last 24 Hours Test 01/10/18 17:06 01/10/18 20:12 01/11/18 05:43 01/11/18 05:46 Bedside Glucose 159 mg/dl 131 mg/dl 134 mg/dl White Blood Count 9.27 K/uL Red Blood Count 4.21 M/uL Hemoglobin 11.3 g/dL Hematocrit 34.3 % Mean Corpuscular Volume 81.5 fL Mean Corpuscular Hemoglobin 26.8 pg Mean Corpuscular Hemoglobin Concent 32.9 g/dl RDW Standard Deviation 52.0 fL RDW Coefficient of Variation 17.2 % Platelet Count 330 K/uL Mean Platelet Volume 7.9 fL Sodium Level 142 mmol/L Potassium Level 3.4 mmol/L Chloride Level 108 mmol/L Carbon Dioxide Level 30 mmol/L Anion Gap 4.0 mmol/L Blood Urea Nitrogen 22 mg/dl Creatinine 0.94 mg/dl Est Creatinine Clear Calc Drug Dose 55.5 ml/min Estimated GFR () 69.8 Estimated GFR (Non- 60.2 BUN/Creatinine Ratio 23.5 Random Glucose 148 mg/dl Calcium Level 8.5 mg/dl Magnesium Level 1.7 mg/dl Test 01/11/18 11:57 Bedside Glucose 150 mg/dl Assessment and Plan Patient is a 72-year-old female with history of severe COPD, chronic hypoxic respiratory failure, prolonged QT, psychosis NOS, ovarian cancer status post LEOLA /BSO, GERD, chronic diastolic CHF, DM 2, a history of PE on long-term anticoagulation, who presented with epistaxis, suspected hematemesis, and question of fevers. Noted to have left thumb IP erythema and edema with pain, as well as lower back pain. 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 with septic emboli and also with septic pelvic thrombophlebitis and thrombus Sepsis/MSSA Bacteremia/epidural abscess/septic Emboli/Presumed SBE/early meningitis-with multiple positive blood cultures with MSSA, epidural abscess also with MSSA BCxs 01/09 with Coag neg Staph in 1, likely contaminant BCx 01/10 no growth so far MRI with abscess at S1/S2 possible other developing abscess; suspected meningitis; acute septic pelvic thrombophlebitis Now status post urgent spinal decompression on 01/08-appreciate orthopedic spine consultation-seems to be having normal postoperative recovery AARON on 01/11 with possible AV vegetation-cannot completely exclude, no regurg, MV appears normal -Appreciate infectious disease consultation -Continue nafcillin and will need prolonged course -Follow most recent blood cultures until negative -Will need PICC line after blood cultures clear and at least 6 weeks of antibiotics for epidural abscess and presumed SBE Acute R Common Iliac and Internal Iliac Vein Septic Thrombophlebitis: - Had IVF filter placed by Dr. Matamoros on 01/08 -will eventually need to be placed back on anticoagulation when okay with orthopedic surgery-previously on Xarelto-will d/w Orthopedics -will need f/u with Vascular Surgery in 3 months to determine about removal of IVC filter Hematemesis with Acute Blood Loss Anemia: Esophagitis vs Posterior Nose Bleed with Emesis on Xarelto: Resolved. - EGD on 01/07 - evidence of reflux esophagitis without bleeding - Transfused 2 units on 01/07 with stabilization of Hgb -Hemoglobin then decreased after spinal surgery to 7.6 on 01/10 -Transfused 2 units PRBCs on 01/10 and now hgb up to 11.3 - Xarelto remains on hold -Continue Protonix 40 mg BID - GI consultation appreciated -Follow CBC Abdominal Pain: RESOLVED - CT with findings of distended GB and U/S confirming mild distention with sludge but no wall thickening Constipation-no bowel movement in 4 days -Continue MiraLAX daily -continue bisacodyl 5 mg p.o. once daily and give an extra 5 mg po x 1 now -continue docusate/senna once daily FEN-hypokalemia, Hypomagnesemia, and Hyponatremia - Likely from Dehydration on admission: some mild abnormalities today - Continue to monitor electrolytes and replete as necessary-gave KCl 40meq po x 1 today, Mag 1 gram IV x 1 L Thumb Erythema and Edema: Resolved with treatment with antibiotics -Likely septic joint from emboli as source of pain/redness/swelling DARI: RESOLVED - Continue to monitor renal function - this was likely in the setting of pre- renal changes/dehydration Chronic Hypoxic Respiratory Failure 2/2 COPD without Exacerbation: Baseline 2-3 L NC, stable -Continue Duonebs CHU; Brovana BID; Pulmicort BID; Singulair 10 mg HS; Daliresp 500 mcg daily; Theophylline 400 mg daily; Spiriva 1 puff daily -received IV Decadron post operatively for the back surgery which may help her lungs as well CAD with NSTEMI (December 10, 2017): Cardiac catheterization at that time was clean - ASA on hold given bleeding and now recent surgery-can likely restart soon -Continue atorvastatin 80 mg daily; continue Lopressor 25 mg BID Prolonged QT-likely was secondary to psychiatric medications, however is resolved on repeat ECG -Keep electrolytes replete Depression/Anxiety: STABLE -Continue Lexapro 10 mg daily; Klonopin 0.5 mg BID PRN; Remeron 30 mg HS; Seroquel 200 mg HS DMII, uncontrolled, on superintendent container terminal insulin-HgbA1C 8.8% in 10/2017. Improved control here now that off decadron - Continue SSI and monitor BSGs H/O PE and Ovarian CA status post LEOLA/BSO 40 years ago: - Holding Xarelto at this time - Ovarian CA was diagnosed in mid-twenties; hasn't required any further evaluation OA: -Should not be on meloxicam given that she is on anticoagulation -Acetaminophen as needed DVT Prophylaxis: SCDs Code Status: FULL RESUSCITATION Disposition: PT/OT evaluations recommend rehab placement-possibly in 2 days POA paper from [facility] that names Gladis Delarosa or possibly Ana as POA with phone number [phone].
[2018-01-11] MEDS: MIRTAZAPINE TAB 15 MG TAB PO SCH (20:39)
[2018-01-11] MEDS: MONTELUKAST SOD 10 MG TAB PO SCH (20:39)
[2018-01-11] MEDS: QUETIAPINE FUMARATE 200 MG TAB PO SCH (20:39)
[2018-01-12] VITALS (8 sets, daily range): BP systolic 117–138; BP diastolic 51–85; PULSE 80–100; TEMP 36.9; O2SAT 92–99
[2018-01-12] MEDS: NAFCILLIN SOD IV 2 GM in DEXTROSE 5% ADD-VANTAGE 100ML 100 ML IV SCH ×6 (00:55→20:29)
[2018-01-12] MEDS: OXYCODONE/ACETAMINOPHEN 5-325 TAB PO PRN ×3 (03:44→20:41)
[2018-01-12] MEDS: LEVOTHYROXINE 25 MCG TAB PO SCH (05:48)
[2018-01-12 06:45] LABS: BASO % 0.1 %; BASO ABS # 0.01 K/uL (0-0.2); EOS % 2.6 %; HEMATOCRIT 37.1 % (37-47); IG# 0.04 K/uL (0.00-0.02); LYMPH % 18.2 %; LYMPH ABS # 1.39 K/uL (1.2-3.4); MEAN CELL VOLUME 82.6 fL (80-100); MEAN CORPUSCULAR HEMOGLOBIN 26.7 pg (25-34); MEAN CORPUSCULAR HGB CONC 32.3 g/dl (32-36); MONO % 9.7 %; MONO ABS # 0.74 K/uL (0.11-0.59); NEUT % 68.9 %; NEUT ABS # 5.25 K/uL (1.4-6.5); PLATELET COUNT 295 K/uL (130-400); RED CELL DISTRIBUTION WIDTH CV 18.1 % (11.5-14.5); RED CELL DISTRIBUTION WIDTH SD 54.8 fL (36.4-46.3); WHITE BLOOD COUNT 7.63 K/uL (4.8-10.8)
[2018-01-12] MEDS: BUDESONIDE 0.5 MG/2 ML VIAL (PULMICORT) INH SCH ×2 (07:19→19:02)
[2018-01-12] MEDS: ARFORMOTEROL TART 15MCG/2ML VIAL INH SCH ×2 (07:19→19:02)
[2018-01-12] MEDS: ALBUT/IPRATROP 3MG/0.5MG NEB 3 ML VIAL INH SCH ×4 (07:19→19:02)
[2018-01-12 07:28] LABS: ALBUMIN 1.7 gm/dl (3.4-5.0); CALCIUM 8.5 mg/dl (8.5-10.1); CREATININE 1.02 mg/dl (0.60-1.20); POTASSIUM 3.6 mmol/L (3.5-5.1)
[2018-01-12 07:31] LABS: TOTAL PROTEIN 5.3 gm/dl (6.4-8.2)
--- NOTE | 2018-01-12 07:42 | ORTHOPEDICS PROGRESS NOTE ---
DATE: 01/12/2018 SUBJECTIVE: She is alert, oriented and in moderate pain. No extremity difficulty. OBJECTIVE: Vital signs stable. Wound is pristine. LABORATORY DATA: White count 7.63, hematocrit 37.1. ASSESSMENT: Status post lumbar spine epidural abscess from my spine perspective along with other comorbidities. PLAN: Includes hopefully rehab transfer, IV antibiotics may be required. Keep her wound clean, dry. If she does go to rehabilitation, I should see her back in the office in approximately 8-9 days from now or simply have her marisol removed.
[2018-01-12] MEDS: BISACODYL 5 MG TABEC PO SCH (08:19)
[2018-01-12] MEDS: DOCUSATE SODIUM/SENNA 50/8.6MG TAB PO SCH (08:20)
[2018-01-12] MEDS: POLYETHYLENE (MIRALAX) 17 GM PACK PO SCH (08:20)
[2018-01-12] MEDS: METOPROLOL TARTRATE 25 MG TAB PO SCH ×2 (08:22→20:39)
[2018-01-12] MEDS: ATORVASTATIN 40 MG TAB PO SCH (08:22)
[2018-01-12] MEDS: CHOLECALCIFEROL 400 INTER.UNIT TAB PO SCH (08:22)
[2018-01-12] MEDS: ESCITALOPRAM OXALATE 10 MG TAB PO SCH (08:22)
[2018-01-12] MEDS: THEOPHYLLINE 400MG CONTROLLED REL TAB PO SCH (08:23)
[2018-01-12] MEDS: TIOTROPIUM BROMIDE 5 PUFF/90 MCG INH INH SCH (08:23)
[2018-01-12] MEDS: PANTOprazole SOD 40 MG TAB PO SCH ×2 (08:23→20:39)
[2018-01-12] MEDS: ROFLUMILAST 500 MCG TAB PO SCH (08:23)
[2018-01-12] MEDS: INSULIN ASPART 100 UNITS/ML 3 ML PEN SC SCH ×4 (08:30→20:43)
[2018-01-12] MEDS ORDERED: MAGNESIUM SULFATE 1GM / D5W 100 ML IV STA (08:32)
--- NOTE | 2018-01-12 15:08 | Progress Note ---
Subjective Date of Service: January 12, 2018. Subjective Pt evaluation today including: conversation w/ patient, physical exam, chart review, lab review pt still sore but overall better, no f/c. 01/10 cultures negative, 01/09 1 operating room specialist. all others MSSA. remains on nafcillin, tolerating well. AARON with small AV veg. overall feeling better. no abd pain no n/v/d. all remaining ros reviewed and are negative. Problem List Medical Problems: (1) Acute bronchitis Status: Acute (2) Acute exacerbation of chronic obstructive pulmonary disease Status: Acute (3) Anemia Status: Acute (4) Anemia Status: Acute (5) Anemia Status: Acute (6) COPD exacerbation Status: Acute (7) COPD exacerbation Status: Acute (8) COPD exacerbation Status: Acute (9) COPD exacerbation Status: Acute (10) COPD exacerbation Status: Acute (11) Dehydration Status: Acute (12) ALVAREZ (dyspnea on exertion) Status: Acute (13) Hyperglycemia due to type 2 diabetes mellitus Status: Acute (14) Hypokalemia Status: Acute (15) Hypokalemia Status: Acute (16) Hypomagnesemia Status: Acute (17) Hypomagnesemia Status: Acute (18) Hypomagnesemia Status: Acute (19) Hyponatremia Status: Acute (20) Hypoxia Status: Acute (21) Lactic acidosis Status: Acute (22) Non-ST elevated myocardial infarction Status: Acute (23) Orthostatic hypotension Status: Acute (24) Sepsis Status: Acute (25) Sepsis Status: Acute (26) Shortness of breath Status: Acute (27) Tachypnea Status: Acute Objective Vital Signs Date Time Temp Pulse Resp B/P (MAP) Pulse Ox O2 Delivery O2 Flow Rate FiO2 01/12/18 14:58 36.9 81 16 138/75 (96) 98 Nasal Cannula 01/12/18 11:12 87 16 98 Nasal Cannula 2.0 01/12/18 07:50 Nasal Cannula 2.0 01/12/18 07:46 36.9 84 16 121/51 (74) 97 Room Air 01/12/18 07:19 91 16 99 Nasal Cannula 2.0 01/12/18 00:45 Nasal Cannula 2.0 01/11/18 23:30 36.2 94 16 104/63 (77) 94 Nasal Cannula 2.0 01/11/18 23:15 36.7 97 16 95/58 (70) 93 Nasal Cannula 2.0 01/11/18 23:02 36.7 98 20 107/57 (74) 95 Nasal Cannula 2.0 01/11/18 22:31 36.9 103 20 130/73 (92) 95 Nasal Cannula 2.0 01/11/18 20:30 72 142/81 (101) 01/11/18 19:24 98 16 97 Nasal Cannula 2.0 01/11/18 16:22 96 Nasal Cannula 2.0 01/11/18 16:00 37.0 78 18 138/80 (99) 96 Nasal Cannula 2.0 01/11/18 15:31 76 16 96 Nasal Cannula 2.0 Physical Exam General Appearance: WD/WN, no apparent distress Eyes: normal inspection, EOMI Neck: supple Respiratory/Chest: lungs clear, normal breath sounds, no respiratory distress Cardiovascular: regular rate, rhythm, no edema, no murmur Abdomen: non tender, soft Extremities: non-tender, no pedal edema Neurologic/Psychiatric: alert, oriented x 3 Skin: normal color Laboratory Results Item Value Date Time Blood Culture - Preliminary Resulted 01/10/18 1238 Blood NO GROWTH TO DATE. Blood Culture - Preliminary Resulted 01/09/18 0930 Blood Coag Neg Staph Not Lugdunensis Gram Stain - Final Resulted 01/08/18 1757 Abscess Spinal Disc Blood Culture - Final Complete 01/08/18 1056 Blood Staphylococcus Aureus Blood Culture - Preliminary Resulted 01/07/18 1223 Blood Staphylococcus Aureus Blood Culture - Final Complete 01/05/18 2135 Blood Staphylococcus Aureus Last 24 Hours Test 01/11/18 17:08 01/11/18 20:29 01/12/18 06:13 01/12/18 12:13 Bedside Glucose 182 mg/dl 98 mg/dl 204 mg/dl White Blood Count 7.63 K/uL Red Blood Count 4.49 M/uL Hemoglobin 12.0 g/dL Hematocrit 37.1 % Mean Corpuscular Volume 82.6 fL Mean Corpuscular Hemoglobin 26.7 pg Mean Corpuscular Hemoglobin Concent 32.3 g/dl Platelet Count 295 K/uL Mean Platelet Volume 8.0 fL Neutrophils (%) (Auto) 68.9 % Lymphocytes (%) (Auto) 18.2 % Monocytes (%) (Auto) 9.7 % Eosinophils (%) (Auto) 2.6 % Basophils (%) (Auto) 0.1 % Neutrophils # (Auto) 5.25 K/uL Lymphocytes # (Auto) 1.39 K/uL Monocytes # (Auto) 0.74 K/uL Eosinophils # (Auto) 0.20 K/uL Basophils # (Auto) 0.01 K/uL RDW Standard Deviation 54.8 fL RDW Coefficient of Variation 18.1 % Immature Granulocyte % (Auto) 0.5 % Immature Granulocyte # (Auto) 0.04 K/uL Sodium Level 142 mmol/L Potassium Level 3.6 mmol/L Chloride Level 107 mmol/L Carbon Dioxide Level 29 mmol/L Anion Gap 6.0 mmol/L Blood Urea Nitrogen 19 mg/dl Creatinine 1.02 mg/dl Est Creatinine Clear Calc Drug Dose 51.1 ml/min Estimated GFR () 63.2 Estimated GFR (Non- 54.5 BUN/Creatinine Ratio 18.8 Random Glucose 160 mg/dl Calcium Level 8.5 mg/dl Magnesium Level 1.7 mg/dl Total Bilirubin 0.6 mg/dl Direct Bilirubin 0.2 mg/dl Aspartate Amino Transf (AST/SGOT) 17 U/L Alanine Aminotransferase (ALT/SGPT) 19 U/L Alkaline Phosphatase 157 U/L Total Protein 5.3 gm/dl Albumin 1.7 gm/dl Assessment and Plan (1) MSSA (methicillin susceptible Staphylococcus aureus) septicemia Assessment & Plan: continue nafcillin, awaitrepeat cultures. will need picc and prolonged IV abx. ctx 2g iv daily is alternative (2) Spinal abscess Continued [facility] stay due to: multiple IV medications needed Discharge planning: uncertain
[2018-01-12] MEDS: ONDANSETRON INJ 2 MG/ML 2 ML VIAL IV PRN (17:40)
--- NOTE | 2018-01-12 17:49 | Hospitalist Progress Note ---
Hospitalist Progress Note Date of Service January 12, 2018. Subjective Pt evaluation today including: conversation w/ patient, conversation w/ network consultant (Orthopedic Surgery) Voiding: no voiding problems Ted po, having some nausea now after receiving percocet for pain. Remains afebrile, BCxs still no growth from 01/10. Central line removed yesterday All Other Systems: Reviewed and Negative Objective Vital Signs Date Time Temp Pulse Resp B/P (MAP) Pulse Ox O2 Delivery O2 Flow Rate FiO2 01/12/18 15:31 80 16 98 Nasal Cannula 2.0 01/12/18 15:07 Nasal Cannula 2.0 01/12/18 14:58 36.9 81 16 138/75 (96) 98 Nasal Cannula 01/12/18 11:12 87 16 98 Nasal Cannula 2.0 01/12/18 07:50 Nasal Cannula 2.0 01/12/18 07:46 36.9 84 16 121/51 (74) 97 Room Air 01/12/18 07:19 91 16 99 Nasal Cannula 2.0 01/12/18 00:45 Nasal Cannula 2.0 01/11/18 23:30 36.2 94 16 104/63 (77) 94 Nasal Cannula 2.0 01/11/18 23:15 36.7 97 16 95/58 (70) 93 Nasal Cannula 2.0 01/11/18 23:02 36.7 98 20 107/57 (74) 95 Nasal Cannula 2.0 01/11/18 22:31 36.9 103 20 130/73 (92) 95 Nasal Cannula 2.0 01/11/18 20:30 72 142/81 (101) 01/11/18 19:24 98 16 97 Nasal Cannula 2.0 Physical Exam General Appearance: WD/WN, no apparent distress Eyes: normal inspection, sclerae normal ENT: hearing grossly normal Neck: trachea midline Respiratory/Chest: no respiratory distress, no accessory muscle use, + decreased breath sounds (throughout), + wheezing (scattered) Cardiovascular: regular rate, rhythm, no edema, no murmur Abdomen: normal bowel sounds, non tender, soft Extremities: normal inspection, no pedal edema, no calf tenderness, + pertinent finding (back with dressing in place c/d/i) Neurologic/Psychiatric: alert, normal mood/affect, oriented x 3 Skin: normal color, warm/dry, no rash Laboratory Results Last 24 Hours Test 01/11/18 20:29 01/12/18 06:13 01/12/18 12:13 01/12/18 16:51 Bedside Glucose 98 mg/dl 204 mg/dl 170 mg/dl White Blood Count 7.63 K/uL Red Blood Count 4.49 M/uL Hemoglobin 12.0 g/dL Hematocrit 37.1 % Mean Corpuscular Volume 82.6 fL Mean Corpuscular Hemoglobin 26.7 pg Mean Corpuscular Hemoglobin Concent 32.3 g/dl Platelet Count 295 K/uL Mean Platelet Volume 8.0 fL Neutrophils (%) (Auto) 68.9 % Lymphocytes (%) (Auto) 18.2 % Monocytes (%) (Auto) 9.7 % Eosinophils (%) (Auto) 2.6 % Basophils (%) (Auto) 0.1 % Neutrophils # (Auto) 5.25 K/uL Lymphocytes # (Auto) 1.39 K/uL Monocytes # (Auto) 0.74 K/uL Eosinophils # (Auto) 0.20 K/uL Basophils # (Auto) 0.01 K/uL RDW Standard Deviation 54.8 fL RDW Coefficient of Variation 18.1 % Immature Granulocyte % (Auto) 0.5 % Immature Granulocyte # (Auto) 0.04 K/uL Sodium Level 142 mmol/L Potassium Level 3.6 mmol/L Chloride Level 107 mmol/L Carbon Dioxide Level 29 mmol/L Anion Gap 6.0 mmol/L Blood Urea Nitrogen 19 mg/dl Creatinine 1.02 mg/dl Est Creatinine Clear Calc Drug Dose 51.1 ml/min Estimated GFR () 63.2 Estimated GFR (Non- 54.5 BUN/Creatinine Ratio 18.8 Random Glucose 160 mg/dl Calcium Level 8.5 mg/dl Magnesium Level 1.7 mg/dl Total Bilirubin 0.6 mg/dl Direct Bilirubin 0.2 mg/dl Aspartate Amino Transf (AST/SGOT) 17 U/L Alanine Aminotransferase (ALT/SGPT) 19 U/L Alkaline Phosphatase 157 U/L Total Protein 5.3 gm/dl Albumin 1.7 gm/dl Assessment and Plan Patient is a 72-year-old female with history of severe COPD, chronic hypoxic respiratory failure, prolonged QT, psychosis NOS, ovarian cancer status post LEOLA /BSO, GERD, chronic diastolic CHF, DM 2, a history of PE on long-term anticoagulation, who presented with epistaxis, suspected hematemesis, and question of fevers. Noted to have left thumb IP erythema and edema with pain, as well as lower back pain. 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 with septic emboli and also with septic pelvic thrombophlebitis and thrombus Sepsis/MSSA Bacteremia/epidural abscess/septic Emboli/Presumed SBE/early meningitis-with multiple positive blood cultures with MSSA, epidural abscess also with MSSA BCxs 01/09 with Coag neg Staph in 1, likely contaminant BCx 01/10 no growth so far MRI with abscess at S1/S2 possible other developing abscess; suspected meningitis; acute septic pelvic thrombophlebitis Now status post urgent spinal decompression on 01/08-appreciate orthopedic spine consultation-seems to be having normal postoperative recovery, some opioid- related nausea, and expected pain AARON on 01/11 with possible AV vegetation-cannot completely exclude, no regurg, MV appears normal -Appreciate infectious disease consultation -Continue nafcillin and will need prolonged course, unspecified time course by ID at this time, but at least 6 weeks -alternative is Rocephin 2 gm IV once daily -Follow most recent blood cultures until negative-remain negative -PICC consent obtained, PICC line ordered -Orthopedics would like to see her in the office in 10 days Acute R Common Iliac and Internal Iliac Vein Septic Thrombophlebitis: - Had IVF filter placed by Dr. Matamoros on 01/08 -will eventually need to be placed back on anticoagulation when okay with orthopedic surgery-previously on Xarelto-will d/w Orthopedics -will need f/u with Vascular Surgery in 3 months to determine about removal of IVC filter Hematemesis with Acute Blood Loss Anemia: Esophagitis vs Posterior Nose Bleed with Emesis on Xarelto: Resolved. - EGD on 01/07 - evidence of reflux esophagitis without bleeding - Transfused 2 units on 01/07 with stabilization of Hgb -Hemoglobin then decreased after spinal surgery to 7.6 on 01/10 -Transfused 2 units PRBCs on 01/10 and now hgb up to 12 - Xarelto remains on hold -Continue Protonix 40 mg BID - GI consultation appreciated -Follow CBC Abdominal Pain: RESOLVED - CT with findings of distended GB and U/S confirming mild distention with sludge but no wall thickening Constipation-now resolving -Continue MiraLAX daily -continue bisacodyl 5 mg p.o. once daily -continue docusate/senna once daily FEN-hypokalemia, Hypomagnesemia, and Hyponatremia - Likely from Dehydration on admission: some mild abnormalities today - Continue to monitor electrolytes and replete as necessary L Thumb Erythema and Edema: Resolved with treatment with antibiotics -Likely septic joint from emboli as source of pain/redness/swelling DARI: RESOLVED - Continue to monitor renal function - this was likely in the setting of pre- renal changes/dehydration Chronic Hypoxic Respiratory Failure 2/2 COPD without Exacerbation: Baseline 2-3 L NC, stable -Continue Duonebs CHU; Brovana BID; Pulmicort BID; Singulair 10 mg HS; Daliresp 500 mcg daily; Theophylline 400 mg daily; Spiriva 1 puff daily -received IV Decadron post operatively for the back surgery which may help her lungs as well CAD with NSTEMI (December 10, 2017): Cardiac catheterization at that time was clean - ASA on hold given bleeding and now recent surgery-can likely restart soon -Continue atorvastatin 80 mg daily; continue Lopressor 25 mg BID Prolonged QT-likely was secondary to psychiatric medications, however is resolved on repeat ECG -Keep electrolytes replete Depression/Anxiety: STABLE -Continue Lexapro 10 mg daily; Klonopin 0.5 mg BID PRN; Remeron 30 mg HS; Seroquel 200 mg HS DMII, uncontrolled, on alf insulin-HgbA1C 8.8% in 10/2017. Improved control here now that off decadron - Continue SSI and monitor BSGs H/O PE and Ovarian CA status post LEOLA/BSO 40 years ago: - Holding Xarelto at this time - Ovarian CA was diagnosed in mid-twenties; hasn't required any further evaluation OA: -Should not be on meloxicam given that she is on anticoagulation -Acetaminophen as needed DVT Prophylaxis: SCDs Code Status: FULL RESUSCITATION Disposition: PT/OT evaluations recommend rehab placement-referral made to [facility]- could potentially be discharged from medical perspective in 1 day POA paper from [facility] [place] that names Gladis Delarosa or possibly Ana as POA with phone number [phone].
[2018-01-12] MEDS: QUETIAPINE FUMARATE 200 MG TAB PO SCH (20:38)
[2018-01-12] MEDS: MONTELUKAST SOD 10 MG TAB PO SCH (20:40)
[2018-01-12] MEDS: MIRTAZAPINE TAB 15 MG TAB PO SCH (20:40)
[2018-01-13] VITALS (11 sets, daily range): BP systolic 135–190; BP diastolic 76–105; PULSE 72–102; TEMP 36.4–36.8; O2SAT 92–98
[2018-01-13] MEDS: NAFCILLIN SOD IV 2 GM in DEXTROSE 5% ADD-VANTAGE 100ML 100 ML IV SCH ×6 (00:17→20:52)
[2018-01-13] MEDS: LEVOTHYROXINE 25 MCG TAB PO SCH (06:03)
[2018-01-13] MEDS: ALBUT/IPRATROP 3MG/0.5MG NEB 3 ML VIAL INH SCH ×5 (07:29→22:07)
[2018-01-13] MEDS: BUDESONIDE 0.5 MG/2 ML VIAL (PULMICORT) INH SCH ×2 (07:30→19:04)
[2018-01-13] MEDS: ARFORMOTEROL TART 15MCG/2ML VIAL INH SCH ×2 (07:30→19:03)
[2018-01-13 07:38] LABS: BASO % 0.1 %; BASO ABS # 0.01 K/uL (0-0.2); EOS % 2.4 %; EOS ABS # 0.23 K/uL (0-0.5); HEMATOCRIT 35.6 % (37-47); HEMOGLOBIN 11.5 g/dL (12.0-16.0); IG# 0.09 K/uL (0.00-0.02); LYMPH % 14.9 %; LYMPH ABS # 1.42 K/uL (1.2-3.4); MEAN CELL VOLUME 82.4 fL (80-100); MEAN CORPUSCULAR HEMOGLOBIN 26.6 pg (25-34); MEAN CORPUSCULAR HGB CONC 32.3 g/dl (32-36); MONO % 8.8 %; MONO ABS # 0.84 K/uL (0.11-0.59); NEUT % 72.9 %; NEUT ABS # 6.91 K/uL (1.4-6.5); PLATELET COUNT 297 K/uL (130-400); RED CELL DISTRIBUTION WIDTH CV 17.9 % (11.5-14.5)
[2018-01-13 08:07] LABS: CREATININE 1.03 mg/dl (0.60-1.20)
[2018-01-13] MEDS: BISACODYL 5 MG TABEC PO SCH (08:34)
[2018-01-13] MEDS: POLYETHYLENE (MIRALAX) 17 GM PACK PO SCH (08:35)
[2018-01-13] MEDS: ESCITALOPRAM OXALATE 10 MG TAB PO SCH (08:36)
[2018-01-13] MEDS: METOPROLOL TARTRATE 25 MG TAB PO SCH ×2 (08:36→20:54)
[2018-01-13] MEDS: PANTOprazole SOD 40 MG TAB PO SCH ×2 (08:36→20:54)
[2018-01-13] MEDS: ROFLUMILAST 500 MCG TAB PO SCH (08:37)
[2018-01-13] MEDS: CHOLECALCIFEROL 400 INTER.UNIT TAB PO SCH (08:37)
[2018-01-13] MEDS: THEOPHYLLINE 400MG CONTROLLED REL TAB PO SCH (08:37)
[2018-01-13] MEDS: ATORVASTATIN 40 MG TAB PO SCH (08:37)
[2018-01-13] MEDS: TIOTROPIUM BROMIDE 5 PUFF/90 MCG INH INH SCH (08:38)
[2018-01-13] MEDS: DOCUSATE SODIUM/SENNA 50/8.6MG TAB PO SCH (08:38)
[2018-01-13] MEDS: INSULIN ASPART 100 UNITS/ML 3 ML PEN SC SCH ×4 (08:46→20:56)
--- NOTE | 2018-01-13 09:00 | ORTHOPEDICS PROGRESS NOTE ---
DATE: 01/13/2018 Mini is doing well. Wound clean, dry. Afebrile. No chest pain, shortness of breath. Slight blood pressure elevation. ASSESSMENT: Status post lumbar spine decompression for an epidural spinal abscess. DISPOSITION: Includes discharge. Hopefully home to rehabilitation next couple of days. She will need a PICC line and long-term antibiotics. Close followup examination. I recommend that her marisol be removed in approximately 10 days from now. She needs to come back to the office and have that done or one of the rehab nursing facilities can perform that task.
[2018-01-13] MEDS ORDERED: MAGNESIUM SULFATE 1GM / D5W 100 ML IV ONE ×2 (09:30→12:00)
[2018-01-13] MEDS ORDERED: POTASSIUM CHLORIDE 20 MEQ TABCR PO ONE ×2 (09:30→21:00)
[2018-01-13] MEDS: OXYCODONE/ACETAMINOPHEN 5-325 TAB PO PRN ×3 (11:19→21:19)
[2018-01-13] MEDS ORDERED: POTASSIUM CHLORIDE 20 MEQ TABCR PO SCH ×2 (13:00→15:05)
[2018-01-13] MEDS ORDERED: NURSING VERBAL MED ORDER ONE (13:15)
--- NOTE | 2018-01-13 14:55 | Progress Note ---
Subjective Date of Service: January 13, 2018. Subjective pt with repeat cultures negative on 01/10. tolerating abx. afebrile. No additional OR planned Problem List Medical Problems: (1) Acute bronchitis Status: Acute (2) Acute exacerbation of chronic obstructive pulmonary disease Status: Acute (3) Anemia Status: Acute (4) Anemia Status: Acute (5) Anemia Status: Acute (6) COPD exacerbation Status: Acute (7) COPD exacerbation Status: Acute (8) COPD exacerbation Status: Acute (9) COPD exacerbation Status: Acute (10) COPD exacerbation Status: Acute (11) Dehydration Status: Acute (12) ALVAREZ (dyspnea on exertion) Status: Acute (13) Hyperglycemia due to type 2 diabetes mellitus Status: Acute (14) Hypokalemia Status: Acute (15) Hypokalemia Status: Acute (16) Hypomagnesemia Status: Acute (17) Hypomagnesemia Status: Acute (18) Hypomagnesemia Status: Acute (19) Hyponatremia Status: Acute (20) Hypoxia Status: Acute (21) Lactic acidosis Status: Acute (22) Non-ST elevated myocardial infarction Status: Acute (23) Orthostatic hypotension Status: Acute (24) Sepsis Status: Acute (25) Sepsis Status: Acute (26) Shortness of breath Status: Acute (27) Tachypnea Status: Acute Objective Vital Signs Date Time Temp Pulse Resp B/P (MAP) Pulse Ox O2 Delivery O2 Flow Rate FiO2 01/13/18 11:35 88 20 94 Nasal Cannula 2.0 01/13/18 11:30 Nasal Cannula 3.0 01/13/18 09:45 24 143/79 (100) 01/13/18 08:17 36.4 100 22 148/78 (101) 97 Nasal Cannula 3.0 190/105 (133) 01/13/18 07:31 92 18 95 Nasal Cannula 2.0 01/13/18 07:20 Nasal Cannula 2.0 01/13/18 04:42 102 19 94 Nasal Cannula 2.0 01/12/18 23:35 Nasal Cannula 2.0 01/12/18 23:32 36.9 87 16 117/70 (86) 92 Nasal Cannula 2.0 01/12/18 20:37 100 136/85 (102) 01/12/18 19:02 91 20 98 Nasal Cannula 2.0 01/12/18 15:31 80 16 98 Nasal Cannula 2.0 01/12/18 15:07 Nasal Cannula 2.0 01/12/18 14:58 36.9 81 16 138/75 (96) 98 Nasal Cannula Physical Exam Comments: Item Value Date Time Blood Culture - Preliminary Resulted 01/10/18 1245 Blood NO GROWTH TO DATE. Laboratory Results Last 24 Hours Test 01/12/18 16:51 01/12/18 20:42 01/13/18 07:19 01/13/18 08:14 Bedside Glucose 170 mg/dl 143 mg/dl 149 mg/dl White Blood Count 9.50 K/uL Red Blood Count 4.32 M/uL Hemoglobin 11.5 g/dL Hematocrit 35.6 % Mean Corpuscular Volume 82.4 fL Mean Corpuscular Hemoglobin 26.6 pg Mean Corpuscular Hemoglobin Concent 32.3 g/dl Platelet Count 297 K/uL Mean Platelet Volume 8.0 fL Neutrophils (%) (Auto) 72.9 % Lymphocytes (%) (Auto) 14.9 % Monocytes (%) (Auto) 8.8 % Eosinophils (%) (Auto) 2.4 % Basophils (%) (Auto) 0.1 % Neutrophils # (Auto) 6.91 K/uL Lymphocytes # (Auto) 1.42 K/uL Monocytes # (Auto) 0.84 K/uL Eosinophils # (Auto) 0.23 K/uL Basophils # (Auto) 0.01 K/uL RDW Standard Deviation 54.0 fL RDW Coefficient of Variation 17.9 % Immature Granulocyte % (Auto) 0.9 % Immature Granulocyte # (Auto) 0.09 K/uL Prothrombin Time 10.7 SECONDS Prothromb Time International Ratio 1.0 Sodium Level 138 mmol/L Potassium Level 3.0 mmol/L Chloride Level 102 mmol/L Carbon Dioxide Level 32 mmol/L Anion Gap 5.0 mmol/L Blood Urea Nitrogen 16 mg/dl Creatinine 1.03 mg/dl Est Creatinine Clear Calc Drug Dose 50.6 ml/min Estimated GFR () 62.5 Estimated GFR (Non- 53.9 BUN/Creatinine Ratio 15.5 Random Glucose 166 mg/dl Calcium Level 9.0 mg/dl Magnesium Level 1.6 mg/dl Test 01/13/18 11:50 Bedside Glucose 193 mg/dl Assessment and Plan (1) MSSA (methicillin susceptible Staphylococcus aureus) septicemia Assessment & Plan: continue nafcillin, awaitrepeat cultures. will need picc and prolonged IV abx. ctx 2g iv daily is alternative (2) Spinal abscess Continued [facility] stay due to: multiple IV medications needed Discharge planning: uncertain
[2018-01-13] MEDS ORDERED: FUROSEMIDE 20 MG TAB PO STA (15:50)
[2018-01-13] MEDS: ONDANSETRON INJ 2 MG/ML 2 ML VIAL IV PRN (18:20)
--- NOTE | 2018-01-13 19:37 | Progress Note ---
Subjective Date of Service: January 13, 2018. Subjective Pt evaluation today including: conversation w/ patient, physical exam, chart review, lab review, review of studies (recent op note, MRI, cxrs, echos, etc), review of inpatient medication list Pain: back pain and RLE pain - improved PO Intake: improved Voiding: no voiding problems overall feeling better denies fevers/chills b/l thumb swelling resolved "I feel stronger" (with respect to his legs) breathing feels "about the same" as it does at home when she is at baseline mild cough but no sputum Problem List Medical Problems: (1) Acute bronchitis Status: Acute (2) Acute exacerbation of chronic obstructive pulmonary disease Status: Acute (3) Anemia Status: Acute (4) Anemia Status: Acute (5) Anemia Status: Acute (6) COPD exacerbation Status: Acute (7) COPD exacerbation Status: Acute (8) COPD exacerbation Status: Acute (9) COPD exacerbation Status: Acute (10) COPD exacerbation Status: Acute (11) Dehydration Status: Acute (12) ALVAREZ (dyspnea on exertion) Status: Acute (13) Hyperglycemia due to type 2 diabetes mellitus Status: Acute (14) Hypokalemia Status: Acute (15) Hypokalemia Status: Acute (16) Hypomagnesemia Status: Acute (17) Hypomagnesemia Status: Acute (18) Hypomagnesemia Status: Acute (19) Hyponatremia Status: Acute (20) Hypoxia Status: Acute (21) Lactic acidosis Status: Acute (22) Non-ST elevated myocardial infarction Status: Acute (23) Orthostatic hypotension Status: Acute (24) Sepsis Status: Acute (25) Sepsis Status: Acute (26) Shortness of breath Status: Acute (27) Tachypnea Status: Acute Review of Systems Respiratory: + wheezing, + dyspnea on exertion, No sputum Cardiac: No chest pain, No orthopnea, No PND, No edema Abdomen: No pain, No nausea, No vomiting Objective Vital Signs Date Time Temp Pulse Resp B/P (MAP) Pulse Ox O2 Delivery O2 Flow Rate FiO2 01/13/18 19:04 88 20 92 Nasal Cannula 2.0 01/13/18 15:19 100 20 92 Nasal Cannula 2.0 01/13/18 15:14 36.4 87 18 152/76 (101) 93 Room Air 01/13/18 15:10 Nasal Cannula 2.0 01/13/18 11:35 88 20 94 Nasal Cannula 2.0 01/13/18 11:30 Nasal Cannula 3.0 01/13/18 09:45 24 143/79 (100) 01/13/18 08:17 36.4 100 22 148/78 (101) 97 Nasal Cannula 3.0 190/105 (133) 01/13/18 07:31 92 18 95 Nasal Cannula 2.0 01/13/18 07:20 Nasal Cannula 2.0 01/13/18 04:42 102 19 94 Nasal Cannula 2.0 01/12/18 23:35 Nasal Cannula 2.0 01/12/18 23:32 36.9 87 16 117/70 (86) 92 Nasal Cannula 2.0 01/12/18 20:37 100 136/85 (102) Physical Exam General Appearance: no apparent distress ENT: pharynx normal Neck: + JVD (question mild?) Respiratory/Chest: no respiratory distress, no accessory muscle use, + rales ( minimal bases), + wheezing (extensive b/l ) Cardiovascular: regular rate, rhythm, no gallop, no murmur Abdomen: normal bowel sounds, non tender, soft, no organomegaly Extremities: no pedal edema Neurologic/Psychiatric: no motor/sensory deficits (strength 5/5 both legs), alert, oriented x 3 Skin: no rash Laboratory Results Last 24 Hours Test 01/12/18 20:42 01/13/18 07:19 01/13/18 08:14 01/13/18 11:50 Bedside Glucose 143 mg/dl 149 mg/dl 193 mg/dl White Blood Count 9.50 K/uL Red Blood Count 4.32 M/uL Hemoglobin 11.5 g/dL Hematocrit 35.6 % Mean Corpuscular Volume 82.4 fL Mean Corpuscular Hemoglobin 26.6 pg Mean Corpuscular Hemoglobin Concent 32.3 g/dl Platelet Count 297 K/uL Mean Platelet Volume 8.0 fL Neutrophils (%) (Auto) 72.9 % Lymphocytes (%) (Auto) 14.9 % Monocytes (%) (Auto) 8.8 % Eosinophils (%) (Auto) 2.4 % Basophils (%) (Auto) 0.1 % Neutrophils # (Auto) 6.91 K/uL Lymphocytes # (Auto) 1.42 K/uL Monocytes # (Auto) 0.84 K/uL Eosinophils # (Auto) 0.23 K/uL Basophils # (Auto) 0.01 K/uL RDW Standard Deviation 54.0 fL RDW Coefficient of Variation 17.9 % Immature Granulocyte % (Auto) 0.9 % Immature Granulocyte # (Auto) 0.09 K/uL Prothrombin Time 10.7 SECONDS Prothromb Time International Ratio 1.0 Sodium Level 138 mmol/L Potassium Level 3.0 mmol/L Chloride Level 102 mmol/L Carbon Dioxide Level 32 mmol/L Anion Gap 5.0 mmol/L Blood Urea Nitrogen 16 mg/dl Creatinine 1.03 mg/dl Est Creatinine Clear Calc Drug Dose 50.6 ml/min Estimated GFR () 62.5 Estimated GFR (Non- 53.9 BUN/Creatinine Ratio 15.5 Random Glucose 166 mg/dl Calcium Level 9.0 mg/dl Magnesium Level 1.6 mg/dl Test 01/13/18 16:57 Bedside Glucose 252 mg/dl Assessment and Plan 72yo female with: 1. staph aureus (MSSA) septicemia 2nd to suspected aortic valve endocarditis and staph aureus lumbar epidural abscess - improving. most recent blood cultures now negative. will need 6-week course of IV nafcillin (or rocephin) for all infectious sources. 2. lumbar epidural abscess s/p laminectomy L2-S2; L2, L3, L4, L5, S1 and S2 laminectomy, foraminotomy, partial facetectomy. s/p Evacuation of abscess/hematoma at various aspects of lumbar spine. s/p Packing with gentamicin beads and closure over drain. Doing well from surgical standpoint. Needs to see Dr. Valverde after d/c within 10 days. 3. acute blood loss anemia - initially 2nd to posterior nosebleed vs esophagitis, then add additional blood loss following #2. s/p EGD this admission w/ esophagitis only. s/p 4 units PRBCs this stay. H/H stable since last PRBC infusion. CBC in am for stability. 4. hypokalemia - replace again today; also replace mag; repeat BMP am. 5. hypomagnesemia - replace IV and PO today, repeat level in am. 6. 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 7. 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 Matamoors this admission. Will speak with Dr. Valverde about when systemic anticoagulation can be resumed. 8. acute synovitis of left thumb - was likely septic in origin from her bacteremia/endocarditis. resolved. 9. acute/chronic systolic/diastolic CHF - recheck weight today (standing scale) . Lasix 20mg PO x 1. 10. hypothyroidism - cont synthroid. 11. GERD - PPI. 12. COPD - patient reports breathing is at baseline; quite wheezy on exam. Cont all home inhalers, theophylline, as well as duonebs. 13. h/o ovarian cancer - noted. 14. T2DM - uncontrolled - add lantus 8 units HS. 15. DVT proph - SCDs, but check with ortho about when xarelto can be resumed. 16. h/o PEs - noted. spoke with Dr. Valverde - ok to resume systemic anticoagulation at this time. If H/H are stable in the am will resume xarelto then. Alternatively, given the extent of recent bleeding, could consider coumadin since this could be more readily reversed at any time. [facility] sisterCarmen - 01/13/18 Continued [facility] stay due to: multiple IV medications needed Discharge planning: rehab hospital
[2018-01-13] MEDS: QUETIAPINE FUMARATE 200 MG TAB PO SCH (20:53)
[2018-01-13] MEDS: MAGNESIUM OXIDE 400 MG TAB PO SCH (20:53)
[2018-01-13] MEDS: MIRTAZAPINE TAB 15 MG TAB PO SCH (20:54)
[2018-01-13] MEDS: MONTELUKAST SOD 10 MG TAB PO SCH (20:55)
[2018-01-13] MEDS: INSULIN GLARGINE SOLOSTAR 100 UNITS/ML 3 ML PEN SC SCH (21:18)
[2018-01-14] VITALS (11 sets, daily range): BP systolic 96–153; BP diastolic 64–78; PULSE 81–110; TEMP 36.7–37.1; O2SAT 91–97
[2018-01-14] MEDS: NAFCILLIN SOD IV 2 GM in DEXTROSE 5% ADD-VANTAGE 100ML 100 ML IV SCH ×7 (00:54→23:52)
[2018-01-14] MEDS: LEVOTHYROXINE 25 MCG TAB PO SCH (05:03)
[2018-01-14 05:55] LABS: HEMATOCRIT 32.1 % (37-47); HEMOGLOBIN 10.2 g/dL (12.0-16.0)
[2018-01-14 06:21] LABS: CALCIUM 9.1 mg/dl (8.5-10.1); CREATININE 0.86 mg/dl (0.60-1.20); POTASSIUM 3.3 mmol/L (3.5-5.1)
[2018-01-14] MEDS: ALBUT/IPRATROP 3MG/0.5MG NEB 3 ML VIAL INH SCH ×4 (06:53→19:04)
[2018-01-14] MEDS: BUDESONIDE 0.5 MG/2 ML VIAL (PULMICORT) INH SCH ×2 (06:53→19:04)
[2018-01-14] MEDS: ARFORMOTEROL TART 15MCG/2ML VIAL INH SCH ×2 (06:53→19:03)
[2018-01-14] MEDS ORDERED: POTASSIUM CHLORIDE 20 MEQ TABCR PO STA (08:19)
[2018-01-14] MEDS: TIOTROPIUM BROMIDE 5 PUFF/90 MCG INH INH SCH (08:55)
[2018-01-14] MEDS: METOPROLOL TARTRATE 25 MG TAB PO SCH ×2 (08:56→21:00)
[2018-01-14] MEDS: ATORVASTATIN 40 MG TAB PO SCH (08:56)
[2018-01-14] MEDS: THEOPHYLLINE 400MG CONTROLLED REL TAB PO SCH (08:56)
[2018-01-14] MEDS: ESCITALOPRAM OXALATE 10 MG TAB PO SCH (08:56)
[2018-01-14] MEDS: CHOLECALCIFEROL 400 INTER.UNIT TAB PO SCH (08:56)
[2018-01-14] MEDS: DOCUSATE SODIUM/SENNA 50/8.6MG TAB PO SCH (08:56)
[2018-01-14] MEDS: PANTOprazole SOD 40 MG TAB PO SCH ×2 (08:56→22:26)
[2018-01-14] MEDS: POLYETHYLENE (MIRALAX) 17 GM PACK PO SCH (08:56)
[2018-01-14] MEDS: BISACODYL 5 MG TABEC PO SCH (08:57)
[2018-01-14] MEDS: MAGNESIUM OXIDE 400 MG TAB PO SCH ×2 (08:57→21:32)
[2018-01-14] MEDS: ROFLUMILAST 500 MCG TAB PO SCH (08:57)
[2018-01-14] MEDS: INSULIN ASPART 100 UNITS/ML 3 ML PEN SC SCH ×4 (09:02→21:00)
[2018-01-14] MEDS: MAGNESIUM SULFATE 1GM / D5W 100 ML IV SCH ×2 (09:06→10:25)
[2018-01-14 11:53] LABS: HEMATOCRIT 32.8 % (37-47); HEMOGLOBIN 10.4 g/dL (12.0-16.0); MEAN CELL VOLUME 82.6 fL (80-100); MEAN CORPUSCULAR HEMOGLOBIN 26.2 pg (25-34); MEAN CORPUSCULAR HGB CONC 31.7 g/dl (32-36); MEAN PLATELET VOLUME 8.1 fL (7.4-10.4); PLATELET COUNT 294 K/uL (130-400); RED CELL DISTRIBUTION WIDTH CV 18.2 % (11.5-14.5); RED CELL DISTRIBUTION WIDTH SD 55.2 fL (36.4-46.3); WHITE BLOOD COUNT 9.97 K/uL (4.8-10.8)
[2018-01-14] MEDS: ONDANSETRON INJ 2 MG/ML 2 ML VIAL IV PRN (12:35)
[2018-01-14] MEDS ORDERED: POTASSIUM CHLORIDE 20 MEQ TABCR PO ONE (13:00)
[2018-01-14] MEDS ORDERED: FUROSEMIDE 20 MG TAB PO ONE (13:00)
--- NOTE | 2018-01-14 13:59 | Progress Note ---
Subjective Date of Service: January 14, 2018. Subjective repeat cultures negative, s/p picc, awaiting placement, tolerating abx, afebrile. Problem List Medical Problems: (1) Acute bronchitis Status: Acute (2) Acute exacerbation of chronic obstructive pulmonary disease Status: Acute (3) Anemia Status: Acute (4) Anemia Status: Acute (5) Anemia Status: Acute (6) COPD exacerbation Status: Acute (7) COPD exacerbation Status: Acute (8) COPD exacerbation Status: Acute (9) COPD exacerbation Status: Acute (10) COPD exacerbation Status: Acute (11) Dehydration Status: Acute (12) ALVAREZ (dyspnea on exertion) Status: Acute (13) Hyperglycemia due to type 2 diabetes mellitus Status: Acute (14) Hypokalemia Status: Acute (15) Hypokalemia Status: Acute (16) Hypomagnesemia Status: Acute (17) Hypomagnesemia Status: Acute (18) Hypomagnesemia Status: Acute (19) Hyponatremia Status: Acute (20) Hypoxia Status: Acute (21) Lactic acidosis Status: Acute (22) Non-ST elevated myocardial infarction Status: Acute (23) Orthostatic hypotension Status: Acute (24) Sepsis Status: Acute (25) Sepsis Status: Acute (26) Shortness of breath Status: Acute (27) Tachypnea Status: Acute Objective Vital Signs Date Time Temp Pulse Resp B/P (MAP) Pulse Ox O2 Delivery O2 Flow Rate FiO2 01/14/18 12:39 95 01/14/18 11:21 102 20 93 Nasal Cannula 2.0 01/14/18 09:50 95 Nasal Cannula 2.0 01/14/18 09:44 106 20 96 Nasal Cannula 2.0 01/14/18 07:38 37.1 103 18 136/78 (97) 94 2.0 01/14/18 07:26 Nasal Cannula 2.0 01/14/18 06:54 99 20 93 Nasal Cannula 2.0 01/14/18 00:51 Nasal Cannula 2.0 01/13/18 23:39 36.8 72 16 135/77 (96) 98 Nasal Cannula 2.0 01/13/18 22:07 78 18 98 Nasal Cannula 2.0 01/13/18 20:41 100 150/85 (106) 01/13/18 19:04 88 20 92 Nasal Cannula 2.0 01/13/18 15:19 100 20 92 Nasal Cannula 2.0 01/13/18 15:14 36.4 87 18 152/76 (101) 93 Room Air 01/13/18 15:10 Nasal Cannula 2.0 Laboratory Results Item Value Date Time Blood Culture - Preliminary Resulted 01/10/18 1245 Blood NO GROWTH TO DATE. Blood Culture - Preliminary Resulted 01/10/18 1238 Blood NO GROWTH TO DATE. Last 24 Hours Test 01/13/18 16:57 01/13/18 20:38 01/14/18 05:36 01/14/18 08:39 Bedside Glucose 252 mg/dl 195 mg/dl 154 mg/dl Hemoglobin 10.2 g/dL Hematocrit 32.1 % Sodium Level 136 mmol/L Potassium Level 3.3 mmol/L Chloride Level 100 mmol/L Carbon Dioxide Level 32 mmol/L Anion Gap 4.0 mmol/L Blood Urea Nitrogen 12 mg/dl Creatinine 0.86 mg/dl Est Creatinine Clear Calc Drug Dose 61.2 ml/min Estimated GFR () 77.7 Estimated GFR (Non- 67.0 BUN/Creatinine Ratio 14.2 Random Glucose 159 mg/dl Calcium Level 9.1 mg/dl Magnesium Level 1.6 mg/dl Test 01/14/18 11:33 01/14/18 11:34 Vitamin B12 Level 476 pg/mL Folate 12.45 ng/mL White Blood Count 9.97 K/uL Red Blood Count 3.97 M/uL Hemoglobin 10.4 g/dL Hematocrit 32.8 % Mean Corpuscular Volume 82.6 fL Mean Corpuscular Hemoglobin 26.2 pg Mean Corpuscular Hemoglobin Concent 31.7 g/dl RDW Standard Deviation 55.2 fL RDW Coefficient of Variation 18.2 % Platelet Count 294 K/uL Mean Platelet Volume 8.1 fL Assessment and Plan (1) MSSA (methicillin susceptible Staphylococcus aureus) septicemia Assessment & Plan: continue nafcillin, awaitrepeat cultures. will need picc and prolonged IV abx. ctx 2g iv daily is alternative will need min 6 weeks IV abx from first negative culture (01/10). Will need weekly cbc, cmp, esr while on abx. will likley require transition to po abx at some point in the future. can follow with ID post d/c. (2) Spinal abscess Continued [facility] stay due to: multiple IV medications needed Discharge planning: rehab hospital
--- NOTE | 2018-01-14 15:48 | DIAGNOSTIC IMAGING REPORT ---
ABDOMEN 2VIEW W/PA CHEST RTN HISTORY: 72 years-old Female recent pulm edema; abdominal bloating; assess ileus, pulm edema acute nausea and vomiting COMPARISON: Chest radiograph 01/11/2018 TECHNIQUE: PA view of the chest with erect and supine views of the abdomen FINDINGS: Cardiac silhouette is mildly enlarged. Atherosclerosis of the aorta. Right-sided PICC is noted with distal tip in the expected region of the mid SVC. Atherosclerosis of the aorta. No pneumothorax or pleural effusion. Minimal linear subsegmental bibasilar opacities suggest atelectasis. Bones of the chest appear grossly intact. No definite pneumoperitoneum on the upright projection. Bowel gas pattern is nonobstructive. Mild gaseous distention of the stomach. Nondilated mildly prominent gas-filled loops of small bowel are seen within the left midabdomen measuring up to 2.7 cm. Anterior midline skin marisol are noted. IVC filter at the level of 1-L2. Calcifications of the pelvis suggest phleboliths. Renal shadows are obscured by bowel gas. No definite urolith identified. Radiodense beads overlie the lower lumbar spine. IMPRESSION: 1. Nonobstructive bowel gas pattern without pneumoperitoneum identified. 2. Mildly prominent nondilated loops of gas-filled small bowel within the left midabdomen suggest ileus. 3. No acute process of the chest. The above report was generated using voice recognition software. It may contain grammatical, syntax or spelling errors. Electronically signed by: Dm Zepeda M.D. 01/14/2018 3:47 PM Dictated Date/Time: 01/14/2018 3:43 PM
[2018-01-14] MEDS: PROMETHAZINE HCL INJ 12.5 MG in SODIUM CHLORIDE 0.9% 50ML 50 ML IV PRN (15:50)
[2018-01-14] MEDS: NYSTATIN SUSP 500,000 U/5 ML UDC PO SCH ×2 (17:11→21:30)
[2018-01-14] MEDS: OXYCODONE/ACETAMINOPHEN 5-325 TAB PO PRN (17:44)
--- NOTE | 2018-01-14 19:52 | Progress Note ---
Subjective Date of Service: January 14, 2018. Subjective Pt evaluation today including: conversation w/ patient, physical exam, chart review, lab review, review of studies (3-way abdominal series), review of inpatient medication list Pain: mild upper abdominal along w/ nausea PO Intake: fair at best at breakfast/lunch today Voiding: no voiding problems back/right leg pain much improved ambulation slowly improving did have decent stool this am (formed, no diarrhea) main complaint is that of nausea and actually had vomiting after getting back from radiology today mild epigastric discomfort no obvious BRBPR or melena she reports she has had long-standing hypokalemia & hypomagnesemia dating back to the 1980s doesn't have a formal dx/reason why denies chronic diarrhea or other obvious causes for wasting Problem List Medical Problems: (1) Acute bronchitis Status: Acute (2) Acute exacerbation of chronic obstructive pulmonary disease Status: Acute (3) Anemia Status: Acute (4) Anemia Status: Acute (5) Anemia Status: Acute (6) COPD exacerbation Status: Acute (7) COPD exacerbation Status: Acute (8) COPD exacerbation Status: Acute (9) COPD exacerbation Status: Acute (10) COPD exacerbation Status: Acute (11) Dehydration Status: Acute (12) ALVAREZ (dyspnea on exertion) Status: Acute (13) Hyperglycemia due to type 2 diabetes mellitus Status: Acute (14) Hypokalemia Status: Acute (15) Hypokalemia Status: Acute (16) Hypomagnesemia Status: Acute (17) Hypomagnesemia Status: Acute (18) Hypomagnesemia Status: Acute (19) Hyponatremia Status: Acute (20) Hypoxia Status: Acute (21) Lactic acidosis Status: Acute (22) Non-ST elevated myocardial infarction Status: Acute (23) Orthostatic hypotension Status: Acute (24) Sepsis Status: Acute (25) Sepsis Status: Acute (26) Shortness of breath Status: Acute (27) Tachypnea Status: Acute Review of Systems Constitutional: No fever, No chills Respiratory: + dyspnea on exertion (at baseline), No cough Cardiac: No chest pain, No orthopnea, No edema Abdomen: + see HPI, + pain, + nausea, + vomiting, No diarrhea, No constipation , No GI bleeding Female : No dysuria Objective Vital Signs Date Time Temp Pulse Resp B/P (MAP) Pulse Ox O2 Delivery O2 Flow Rate FiO2 5/3/18 19:06 109 20 97 Nasal Cannula 2.0 01/14/18 15:59 81 20 93 Nasal Cannula 2.0 01/14/18 15:10 36.7 110 20 153/73 (99) 91 01/14/18 12:39 95 01/14/18 11:21 102 20 93 Nasal Cannula 2.0 01/14/18 09:50 95 Nasal Cannula 2.0 01/14/18 09:44 106 20 96 Nasal Cannula 2.0 01/14/18 07:38 37.1 103 18 136/78 (97) 94 2.0 01/14/18 07:26 Nasal Cannula 2.0 01/14/18 06:54 99 20 93 Nasal Cannula 2.0 01/14/18 00:51 Nasal Cannula 2.0 01/13/18 23:39 36.8 72 16 135/77 (96) 98 Nasal Cannula 2.0 01/13/18 22:07 78 18 98 Nasal Cannula 2.0 01/13/18 20:41 100 150/85 (106) Physical Exam General Appearance: no apparent distress ENT: pharynx normal Neck: no JVD Respiratory/Chest: no respiratory distress, no accessory muscle use, + wheezing (extensive, but good airation) Cardiovascular: no gallop, no murmur, + tachycardia Abdomen: normal bowel sounds, soft, no organomegaly, + distended (mild), + tenderness (minimal epigastric region) Extremities: no pedal edema Neurologic/Psychiatric: no motor/sensory deficits (strength 5/5 b/l legs), alert, oriented x 3 Skin: + pertinent finding (marisol intact lumbar spine, no drainage; PICC line , RUE, clean with old blood around insertion site) Laboratory Results Last 24 Hours Test 01/13/18 20:38 01/14/18 05:36 01/14/18 08:39 01/14/18 11:33 Bedside Glucose 195 mg/dl 154 mg/dl Hemoglobin 10.2 g/dL Hematocrit 32.1 % Sodium Level 136 mmol/L Potassium Level 3.3 mmol/L Chloride Level 100 mmol/L Carbon Dioxide Level 32 mmol/L Anion Gap 4.0 mmol/L Blood Urea Nitrogen 12 mg/dl Creatinine 0.86 mg/dl Est Creatinine Clear Calc Drug Dose 61.2 ml/min Estimated GFR () 77.7 Estimated GFR (Non- 67.0 BUN/Creatinine Ratio 14.2 Random Glucose 159 mg/dl Calcium Level 9.1 mg/dl Magnesium Level 1.6 mg/dl Vitamin B12 Level 476 pg/mL Folate 12.45 ng/mL Test 01/14/18 11:34 01/14/18 11:55 01/14/18 17:18 White Blood Count 9.97 K/uL Red Blood Count 3.97 M/uL Hemoglobin 10.4 g/dL Hematocrit 32.8 % Mean Corpuscular Volume 82.6 fL Mean Corpuscular Hemoglobin 26.2 pg Mean Corpuscular Hemoglobin Concent 31.7 g/dl RDW Standard Deviation 55.2 fL RDW Coefficient of Variation 18.2 % Platelet Count 294 K/uL Mean Platelet Volume 8.1 fL Bedside Glucose 166 mg/dl 221 mg/dl Assessment and Plan 72yo female with: 1. staph aureus (MSSA) septicemia 2nd to suspected aortic valve endocarditis and staph aureus lumbar epidural abscess - improved/septicemia resolved. most recent blood cultures now negative. will need 6-week course of IV nafcillin (or rocephin) for all infectious sources. appreciate ID input. PICC line, RUE, is in place. 2. lumbar epidural abscess s/p laminectomy L2-S2; L2, L3, L4, L5, S1 and S2 laminectomy, foraminotomy, partial facetectomy. s/p Evacuation of abscess/hematoma at various aspects of lumbar spine. s/p Packing with gentamicin beads and closure over drain. Doing well from surgical standpoint. Needs to see Dr. Valverde after d/c within 10 days. 3. acute blood loss anemia - initially 2nd to posterior nosebleed vs esophagitis, then add additional blood loss following #2. s/p EGD this admission w/ esophagitis only. s/p 4 units PRBCs this stay. H/H with mild drop over the last 48 hours. I repeated the CBC this afternoon and the hemoglobin was unchanged from 6 hours prior. Hemoccult the stool. Recheck CBC am. 4. hypokalemia - replace again today; also replace mag; repeat BMP am. Long-standing issue for her dating back nearly 40 years. Hyperaldo state? Renal wasting syndrome? Check renin/jayesh levels in am. 5. hypomagnesemia - replace IV once again; repeat level am. See #4 above. 6. 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 7. 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 Matamoros this admission. Ok with Dr. Valverde to resume systemic anticoagulation but will defer on that today due to #3. 8. acute synovitis of left thumb - was likely septic in origin from her bacteremia/endocarditis. resolved. 9. acute/chronic systolic/diastolic CHF - radiographically resolved. gave lasix 20mg po x 1 again today but no further lasix thereafter. 10. hypothyroidism - cont synthroid. 11. GERD with esophagitis - PPI twice daily. 12. COPD - patient reports breathing is at baseline; quite wheezy on exam. Cont all home inhalers, theophylline, as well as duonebs. 13. h/o ovarian cancer - noted. 14. T2DM - uncontrolled but improving with added lantus 8 units HS and novolog ac. 15. DVT proph - SCDs. 16. h/o PEs - noted. 17. nausea, abd discomfort - plain films checked - mild ileus and moderate stool. Cut diet back to clears. LFTs 48 hours ago were normal. Check lipase in am. Cont PPI. Hopefully with clears and above plan she will improve. Replete low K and Mag which will worsen the ileus. dispo - [facility] left message for sister, Carmen - 01/13/[address] [facility] stay due to: inadequate po fluid intake, multiple IV medications needed Discharge planning: rehab hospital
[2018-01-14] MEDS: INSULIN GLARGINE SOLOSTAR 100 UNITS/ML 3 ML PEN SC SCH (21:00)
[2018-01-14] MEDS: MIRTAZAPINE TAB 15 MG TAB PO SCH (21:31)
[2018-01-14] MEDS: QUETIAPINE FUMARATE 200 MG TAB PO SCH (21:32)
[2018-01-14] MEDS: MONTELUKAST SOD 10 MG TAB PO SCH (22:26)
[2018-01-15] VITALS (9 sets, daily range): BP systolic 123–131; BP diastolic 67–73; PULSE 61–104; TEMP 36.7–37; O2SAT 95–98
[2018-01-15] MEDS: ALBUT/IPRATROP 3MG/0.5MG NEB 3 ML VIAL INH SCH ×5 (03:07→19:41)
[2018-01-15] MEDS: NAFCILLIN SOD IV 2 GM in DEXTROSE 5% ADD-VANTAGE 100ML 100 ML IV SCH ×6 (03:36→23:37)
[2018-01-15 05:23] LABS: HEMATOCRIT 31.5 % (37-47); HEMOGLOBIN 10.2 g/dL (12.0-16.0); MEAN CORPUSCULAR HEMOGLOBIN 26.6 pg (25-34); MEAN CORPUSCULAR HGB CONC 32.4 g/dl (32-36); MEAN PLATELET VOLUME 7.8 fL (7.4-10.4); PLATELET COUNT 295 K/uL (130-400); RED CELL DISTRIBUTION WIDTH CV 18.4 % (11.5-14.5); RED CELL DISTRIBUTION WIDTH SD 55.1 fL (36.4-46.3); WHITE BLOOD COUNT 7.81 K/uL (4.8-10.8)
[2018-01-15 05:50] LABS: CALCIUM 9.4 mg/dl (8.5-10.1); CREATININE 0.89 mg/dl (0.60-1.20); POTASSIUM 3.2 mmol/L (3.5-5.1)
[2018-01-15] MEDS: LEVOTHYROXINE 25 MCG TAB PO SCH (06:13)
[2018-01-15] MEDS: ARFORMOTEROL TART 15MCG/2ML VIAL INH SCH ×2 (06:58→19:40)
[2018-01-15] MEDS: BUDESONIDE 0.5 MG/2 ML VIAL (PULMICORT) INH SCH ×2 (06:58→19:41)
[2018-01-15] MEDS ORDERED: POTASSIUM CHLORIDE 20 MEQ TABCR PO STA (08:09)
[2018-01-15] MEDS: METOPROLOL TARTRATE 25 MG TAB PO SCH ×2 (08:55→21:25)
[2018-01-15] MEDS: ROFLUMILAST 500 MCG TAB PO SCH (08:55)
[2018-01-15] MEDS: ATORVASTATIN 40 MG TAB PO SCH (08:55)
[2018-01-15] MEDS: THEOPHYLLINE 400MG CONTROLLED REL TAB PO SCH (08:56)
[2018-01-15] MEDS: PANTOprazole SOD 40 MG TAB PO SCH ×2 (08:56→20:32)
[2018-01-15] MEDS: MAGNESIUM OXIDE 400 MG TAB PO SCH ×2 (08:56→20:31)
[2018-01-15] MEDS: TIOTROPIUM BROMIDE 5 PUFF/90 MCG INH INH SCH (08:58)
[2018-01-15] MEDS: INSULIN ASPART 100 UNITS/ML 3 ML PEN SC SCH ×4 (09:00→21:30)
[2018-01-15] MEDS: POLYETHYLENE (MIRALAX) 17 GM PACK PO SCH (09:00)
[2018-01-15] MEDS ORDERED: SPIRONOLACTONE 25 MG TAB PO SCH (09:00)
[2018-01-15] MEDS: NYSTATIN SUSP 500,000 U/5 ML UDC PO SCH ×4 (09:01→20:32)
[2018-01-15] MEDS: OXYCODONE/ACETAMINOPHEN 5-325 TAB PO PRN ×2 (09:14→17:52)
[2018-01-15] MEDS: MAGNESIUM SULFATE 1GM / D5W 100 ML IV SCH ×2 (10:00→10:01)
[2018-01-15] MEDS: ESCITALOPRAM OXALATE 10 MG TAB PO SCH (10:05)
[2018-01-15] MEDS: CHOLECALCIFEROL 400 INTER.UNIT TAB PO SCH (10:05)
[2018-01-15] MEDS: DOCUSATE SODIUM/SENNA 50/8.6MG TAB PO SCH (10:05)
[2018-01-15] MEDS: BISACODYL 5 MG TABEC PO SCH (10:09)
[2018-01-15] MEDS ORDERED: SPIRONOLACTONE 25 MG TAB PO ONE (12:05)
[2018-01-15] MEDS: ONDANSETRON INJ 2 MG/ML 2 ML VIAL IV PRN (12:15)
[2018-01-15] MEDS ORDERED: COUGH DROP (SUGAR FREE) LOZ 24 LOZ/1 BOX LOZ ONE (12:23)
--- NOTE | 2018-01-15 12:41 | Nephrology Consultation ---
Nephrology Consultation Date & Providers Date of Consultation: January 15, 2018. Primary Care Provider: Anil Rodriguez D.O. Referring Provider: Reason for Consultation Hypokalemia, hypomagnesemia History of Present Illness Ms. Clemons is a 72 year old white female who is seen at the request of Dr. Landrum for evaluation of hypomagnesemia and hypokalemia. Medical records in the hospital EMR were reviewed and are summarized as follows: Ms. Clemons has a known h/o GERD, diastolic CHF, hypothyroidism, COPD, ovarian CA s/p LEOLA and AODM. She presented to [facility] 01/06 with hematemesis. Endoscopy revealed gastritis. Her hospital course has been complicated and has included MSSA baceteremia, endocarditis and epidural abscesses requiring surgical I&D. She also developed septic thrombophlebitis of the iliac veins, bilateral DVT and required IVC filter placement 01/[address] Matamoros. At the time of admission Ms. Clemons was noted to have Mg 1.1 and serum potassium 2.3. She has required supplementation throughout her hospitalization. Ms. Clemons relates a history of hypokalemia dating back to the . She notes that she has been on skilled nursing PPI therapy and has required loop diuretics intermittently due to her diastolic CHF. She has not previously been on magnesium supplementation but has been on chronic KCl. She denies any recent history of diarrhea or familial h/o hypokalemia. Past Medical/Surgical History Medical: # GERD # Diastolic CHF # Hypothyroidism # COPD # Ovarian CA s/p LEOLA # AODM Surgical: # LEOLA # IVC Filter Allergies Coded Allergies: Rabies Vaccine (Verified Allergy, Severe, HIVES, 10/28/17) Ragweed (Verified Allergy, Unknown, UNKNOWN, 10/28/17) Tomato (Verified Allergy, Unknown, HIVES, 10/28/17) Inpatient Medications Current Inpatient Medications Medications (Trade) Dose Ordered Sig/Lulú Route Start Time Stop Time Status Last Admin Dose Admin Al Hydrox/Mg Hydrox/Simethicone (Maalox Max Susp) 15 ml Q4H PRN PO 01/05/18 23:15 02/04/18 23:14 Magnesium Hydroxide (Milk Of Magnesia Susp) 30 ml Q12H PRN PO 01/05/18 23:15 02/04/18 23:14 Ondansetron HCl (Zofran Inj) 4 mg Q6H PRN IV 01/05/18 23:15 02/04/18 23:14 01/14/18 12:35 4 MG Polyethylene (Miralax Powder Packet) 17 gm DAILY PRN PO 01/05/18 23:15 02/04/18 23:14 Atorvastatin Calcium (Lipitor Tab) 80 mg DAILY PO 01/06/18 09:00 02/05/18 08:59 01/15/18 08:55 80 MG Cholecalciferol (Vitamin D Tab) 400 inter.unit QAM PO 01/06/18 09:00 02/05/18 08:59 01/15/18 10:05 400 INTER.UNIT Clonazepam (Klonopin Tab) 0.5 mg Q12H PRN PO 01/05/18 23:15 02/04/18 23:14 01/08/18 21:20 0.5 MG Escitalopram Oxalate (Lexapro Tab) 10 mg DAILY PO 01/06/18 09:00 02/05/18 08:59 01/15/18 10:05 10 MG Levothyroxine Sodium (Synthroid Tab) 25 mcg DAILYBB PO 01/06/18 06:00 02/05/18 05:59 01/15/18 06:13 25 MCG Metoprolol Tartrate (Lopressor Tab) 25 mg BID PO 01/06/18 09:00 02/05/18 08:59 01/15/18 08:55 25 MG Albuterol/ Ipratropium (Duoneb) 3 ml QIDR INH 01/06/18 08:00 02/05/18 07:59 01/15/18 11:16 3 ML Arformoterol Tartrate (Brovana 15MCG/ 2ML Neb Soln) 15 mcg BIDR INH 01/06/18 08:00 02/05/18 07:59 01/15/18 06:58 15 MCG Budesonide (Pulmicort Respules 0.5MG/ 2ML Neb Soln) 0.5 mg BIDR INH 01/06/18 08:00 02/05/18 07:59 01/15/18 06:58 0.5 MG Quetiapine Fumarate (seroQUEL TAB) 200 mg HS PO 01/06/18 21:00 02/05/18 20:59 01/14/18 21:32 200 MG Roflumilast (Daliresp Tab) 500 mcg DAILY PO 01/06/18 09:00 02/05/18 08:59 01/15/18 08:55 500 MCG Tiotropium [place] (Spiriva Handihaler Inhaler) 1 puff DAILY INH 01/06/18 09:00 02/05/18 08:59 01/15/18 08:58 1 PUFF Mirtazapine (Remeron Tab) 30 mg HS PO 01/06/18 21:00 02/05/18 20:59 01/14/18 21:31 30 MG Glucose (Glucose 40% Gel) 15-30 GRAMS 15 GRAMS... UD PRN PO 01/06/18 04:30 02/05/18 04:29 Glucose (Glucose Chew Tab) 4-8 Tablets 4 Tabl... UD PRN PO 01/06/18 04:30 02/05/18 04:29 Dextrose (Dextrose 50% 50ML Syringe) 25-50ML OF 50% DW IV FOR... UD PRN IV 01/06/18 04:30 02/05/18 04:29 Glucagon (Glucagon Inj) 1 mg UD PRN SQ 01/06/18 04:30 02/05/18 04:29 Montelukast Sodium (Singulair Tab) 10 mg HS PO 01/06/18 21:00 02/05/18 20:59 01/14/18 22:26 10 MG Theophylline (Uniphyl Controlled Rel 24hr Tab) 400 mg QAM PO 01/07/18 09:00 02/06/18 08:59 01/15/18 08:56 400 MG Pantoprazole Sodium (Protonix Tab) 40 mg BID PO 01/08/18 09:00 02/07/18 08:59 01/15/18 08:56 40 MG Nafcillin Sodium 2 gm/Dextrose 100 ml @ 100 mls/hr Q4H IV 01/08/18 12:00 01/18/18 11:59 01/15/18 08:49 100 MLS/HR Acetaminophen (Tylenol Tab) 650 mg Q6H PRN PO 01/08/18 19:30 02/07/18 19:29 Hydromorphone HCl (Dilaudid Inj) 1 mg Q3H PRN IV 01/08/18 19:30 5/11/18 19:29 Hydromorphone HCl (Dilaudid Inj) 1.5 mg Q3H PRN IV 01/08/18 19:30 01/22/18 19:29 01/09/18 14:40 1.5 MG Promethazine HCl 12.5 mg/Sodium Chloride 50.5 ml @ 202 mls/hr Q6H PRN IV 01/08/18 19:30 02/07/18 19:29 01/14/18 15:50 202 MLS/HR Metoclopramide HCl (Reglan Inj) 10 mg Q6H PRN IV 01/08/18 19:30 02/07/18 19:29 Lorazepam (Ativan Tab) 1 mg Q6H PRN PO 01/08/18 19:30 02/07/18 19:29 Polyethylene (Miralax Powder Packet) 17 gm DAILY PO 01/09/18 09:00 02/08/18 08:59 01/15/18 09:00 17 GM Magnesium Hydroxide (Milk Of Magnesia Susp) 30 ml DAILY PRN PO 01/08/18 19:30 02/07/18 19:29 Diphenhydramine HCl (Benadryl Cap) 25 mg Q6H PRN PO 01/08/18 19:30 02/07/18 19:29 01/10/18 01:49 25 MG Oxycodone/ Acetaminophen (Percocet 5-325mg Tab) 1 tab Q4H PRN PO 01/08/18 19:30 01/22/18 19:29 01/13/18 11:19 1 TAB Oxycodone/ Acetaminophen (Percocet 5-325mg Tab) 2 tab Q4H PRN PO 01/08/18 19:30 01/22/18 19:29 01/15/18 09:14 2 TAB Bisacodyl (Dulcolax Tab) 5 mg DAILY PO 01/11/18 09:00 02/08/18 05:59 01/15/18 10:09 5 MG Senna/Docusate Sodium (Senokot S Tab) 1 tab QAM PO 01/11/18 09:00 02/10/18 08:59 01/15/18 10:05 1 TAB Heparin Sodium (Porcine) (Heparin 10 Unit/ ml 5 ml Flush) 5 ml PRN PRN FLUSH 01/10/18 15:45 02/09/18 15:44 01/15/18 12:09 5 ML Albuterol Sulfate (Ventolin 0.083% 2.5MG/3ML Neb) 2.5 mg Q2H PRN INH 01/10/18 17:45 02/09/18 17:44 01/13/18 04:41 2.5 MG Insulin Aspart (novoLOG ASPART) SLIDING SCALE G... ACHS SC 01/11/18 12:00 02/10/18 11:59 01/15/18 09:00 3 UNITS Bisacodyl (Dulcolax Supp) 10 mg DAILY PRN PA 01/11/18 15:30 02/10/18 15:29 Heparin Sodium (Porcine) (Heparin 10 Unit/ ml 5 ml Flush) 5 ml PRN PRN FLUSH 01/13/18 12:00 02/12/18 11:59 Magnesium Oxide (Mag-Ox Tab) 400 mg BID PO 01/13/18 21:00 02/12/18 20:59 01/15/18 08:56 400 MG Insulin Glargine (Lantus Solostar Pen) 8 units HS SC 01/13/18 21:00 02/12/18 20:59 01/14/18 21:00 8 UNITS Nystatin (Mycostatin Susp) 5 ml QID PO 01/14/18 17:00 01/24/18 16:59 01/15/18 09:01 5 ML Spironolactone (Aldactone Tab) 50 mg QAM PO 01/16/18 09:00 02/15/18 08:59 UNV Spironolactone (Aldactone Tab) 50 mg 1205 ONCE PO 01/15/18 12:05 01/15/18 12:06 UNV Family History No pertient family history secondary to age Negative for hypokalemia or CKD Social History Smoking Status: Never Smoker Drug Use: none Marital Status: Housing Status: lives alone Occupation: retired . Retired. Lives in [place], [place] Review of Systems Constitutional: No fever Respiratory: No shortness of breath Cardiovascular: No chest pain Abdomen: + nausea, No pain, No vomiting, No diarrhea Genitourinary - Female: No hematuria A complete review of systems was performed. Pertinent positives are noted above. All other systems are negative. Physical Exam Date Time Temp Pulse Resp B/P (MAP) Pulse Ox O2 Delivery O2 Flow Rate FiO2 01/15/18 11:16 61 18 98 Nasal Cannula 2.0 01/15/18 08:30 Nasal Cannula 2.0 01/15/18 07:11 36.7 93 16 124/73 (90) 98 2.0 01/15/18 06:59 93 18 98 Nasal Cannula 2.0 01/15/18 03:10 98 18 98 Nasal Cannula 2.0 01/15/18 00:15 Nasal Cannula 2.0 01/14/18 23:04 37.0 108 20 96/65 (75) 94 Room Air 01/14/18 22:29 103 96/64 (75) 01/14/18 19:06 109 20 97 Nasal Cannula 2.0 01/14/18 15:59 81 20 93 Nasal Cannula 2.0 01/14/18 15:56 Nasal Cannula 2.0 01/14/18 15:10 36.7 110 20 153/73 (99) 91 01/14/18 12:39 95 General Appearance: + obese Head: atraumatic Eyes: PERRL, EOMI ENT: + pertinent finding (upper dentures, lower jaw is edentulous) Neck: no adenopathy Respiratory/Chest: lungs clear, no respiratory distress Cardiovascular: regular rate, rhythm Abdomen/GI: normal bowel sounds, non tender, soft Extremities/Musculoskelatal: + swelling (1+ pretibial pitting edema) Neurologic/Psych: alert Laboratory Results Last 24 Hours Test 01/14/18 17:18 01/14/18 20:19 01/15/18 05:12 01/15/18 05:13 Bedside Glucose 221 mg/dl 150 mg/dl Sodium Level 137 mmol/L Potassium Level 3.2 mmol/L Chloride Level 99 mmol/L Carbon Dioxide Level 36 mmol/L Anion Gap 2.0 mmol/L Blood Urea Nitrogen 9 mg/dl Creatinine 0.89 mg/dl Est Creatinine Clear Calc Drug Dose 59.1 ml/min Estimated GFR () 74.5 Estimated GFR (Non- 64.3 BUN/Creatinine Ratio 9.8 Random Glucose 129 mg/dl Calcium Level 9.4 mg/dl Magnesium Level 1.7 mg/dl Lipase 52 U/L White Blood Count 7.81 K/uL Red Blood Count 3.84 M/uL Hemoglobin 10.2 g/dL Hematocrit 31.5 % Mean Corpuscular Volume 82.0 fL Mean Corpuscular Hemoglobin 26.6 pg Mean Corpuscular Hemoglobin Concent 32.4 g/dl RDW Standard Deviation 55.1 fL RDW Coefficient of Variation 18.4 % Platelet Count 295 K/uL Mean Platelet Volume 7.8 fL Test 01/15/18 08:15 Bedside Glucose 101 mg/dl Impression (1) Hypokalemia (2) Hypomagnesemia (3) MSSA (methicillin susceptible Staphylococcus aureus) septicemia (4) Spinal abscess (5) Endocarditis (6) Septic thrombophlebitis (7) GI bleed (8) Diabetes At the time of admission Ms. Clemons was found to have hypomagnesemia and profound hypokalemia in the setting of metabolic alkalosis and normal blood pressure. 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 These medications complicate the picture. However, it appears now that she would benefit from skilled nursing Mg supplementation and use of an aldosterone antagonist or Amiloride. Recommendations -- Continue Magnesium Oxide 400 mg po BID -- Increase Spironolactone to 50 mg daily -- Await results of renin and aldosterone testing (samples obtained prior to starting Spironolactone) -- Will obtain spot urine lytes and creatinine to calculate FeMg and Ca/Cr ratio -- Will recheck Mg and PRP in am
--- NOTE | 2018-01-15 14:44 | Progress Note ---
Subjective Date of Service: January 15, 2018. Subjective 01/10 cultures remain negative, afebrile. tolerating abx. awaiting placement. Problem List Medical Problems: (1) Acute bronchitis Status: Acute (2) Acute exacerbation of chronic obstructive pulmonary disease Status: Acute (3) Anemia Status: Acute (4) Anemia Status: Acute (5) Anemia Status: Acute (6) COPD exacerbation Status: Acute (7) COPD exacerbation Status: Acute (8) COPD exacerbation Status: Acute (9) COPD exacerbation Status: Acute (10) COPD exacerbation Status: Acute (11) Dehydration Status: Acute (12) ALVAREZ (dyspnea on exertion) Status: Acute (13) Hyperglycemia due to type 2 diabetes mellitus Status: Acute (14) Hypokalemia Status: Acute (15) Hypokalemia Status: Acute (16) Hypomagnesemia Status: Acute (17) Hypomagnesemia Status: Acute (18) Hypomagnesemia Status: Acute (19) Hyponatremia Status: Acute (20) Hypoxia Status: Acute (21) Lactic acidosis Status: Acute (22) Non-ST elevated myocardial infarction Status: Acute (23) Orthostatic hypotension Status: Acute (24) Sepsis Status: Acute (25) Sepsis Status: Acute (26) Shortness of breath Status: Acute (27) Tachypnea Status: Acute Objective Vital Signs Date Time Temp Pulse Resp B/P (MAP) Pulse Ox O2 Delivery O2 Flow Rate FiO2 01/15/18 11:16 61 18 98 Nasal Cannula 2.0 01/15/18 08:30 Nasal Cannula 2.0 01/15/18 07:11 36.7 93 16 124/73 (90) 98 2.0 01/15/18 06:59 93 18 98 Nasal Cannula 2.0 01/15/18 03:10 98 18 98 Nasal Cannula 2.0 01/15/18 00:15 Nasal Cannula 2.0 01/14/18 23:04 37.0 108 20 96/65 (75) 94 Room Air 01/14/18 22:29 103 96/64 (75) 01/14/18 19:06 109 20 97 Nasal Cannula 2.0 01/14/18 15:59 81 20 93 Nasal Cannula 2.0 01/14/18 15:56 Nasal Cannula 2.0 01/14/18 15:10 36.7 110 20 153/73 (99) 91 Laboratory Results Item Value Date Time Blood Culture - Preliminary Resulted 01/10/18 1245 Blood NO GROWTH TO DATE. Blood Culture - Preliminary Resulted 01/10/18 1238 Blood NO GROWTH TO DATE. Last 24 Hours Test 01/14/18 17:18 01/14/18 20:19 01/15/18 05:12 01/15/18 05:13 Bedside Glucose 221 mg/dl 150 mg/dl Sodium Level 137 mmol/L Potassium Level 3.2 mmol/L Chloride Level 99 mmol/L Carbon Dioxide Level 36 mmol/L Anion Gap 2.0 mmol/L Blood Urea Nitrogen 9 mg/dl Creatinine 0.89 mg/dl Est Creatinine Clear Calc Drug Dose 59.1 ml/min Estimated GFR () 74.5 Estimated GFR (Non- 64.3 BUN/Creatinine Ratio 9.8 Random Glucose 129 mg/dl Calcium Level 9.4 mg/dl Magnesium Level 1.7 mg/dl Lipase 52 U/L White Blood Count 7.81 K/uL Red Blood Count 3.84 M/uL Hemoglobin 10.2 g/dL Hematocrit 31.5 % Mean Corpuscular Volume 82.0 fL Mean Corpuscular Hemoglobin 26.6 pg Mean Corpuscular Hemoglobin Concent 32.4 g/dl RDW Standard Deviation 55.1 fL RDW Coefficient of Variation 18.4 % Platelet Count 295 K/uL Mean Platelet Volume 7.8 fL Test 01/15/18 08:15 Bedside Glucose 101 mg/dl Assessment and Plan (1) MSSA (methicillin susceptible Staphylococcus aureus) septicemia Assessment & Plan: continue nafcillin, awaitrepeat cultures. will need picc and prolonged IV abx. ctx 2g iv daily is alternative will need min 6 weeks IV abx from first negative culture (01/10). Will need weekly cbc, cmp, esr while on abx. will shayley require transition to po abx at some point in the future. can follow with ID post d/c. (2) Spinal abscess Continued [facility] stay due to: inadequate po fluid intake, multiple IV medications needed Discharge planning: rehab hospital
[2018-01-15] MEDS: PROMETHAZINE HCL INJ 12.5 MG in SODIUM CHLORIDE 0.9% 50ML 50 ML IV PRN (15:18)
[2018-01-15 15:37] LABS: POTASSIUM RANDOM URINE 48.4 mEq/L
[2018-01-15 15:43] LABS: CREATININE RANDOM URINE 44.3 mg/dl
--- NOTE | 2018-01-15 17:45 | DIAGNOSTIC IMAGING REPORT ---
HEPATOBILIARY HIDA IMAGING CLINICAL HISTORY: 72 years-old Female with gallbladder sludge, distension, RUQ pain. Acute right upper quadrant abdominal pain with gallbladder sludge TECHNIQUE: Sequential anterior abdominal images were obtained through 60 minutes following the intravenous administration of 5.5 mCi of technetium-99m Choletec. A lateral image was also obtained. COMPARISON: Right upper quadrant ultrasound 01/07/2018. FINDINGS: There is prompt, uniform accumulation of the tracer by the liver. There is normal filling of the intrahepatic ducts, common bile duct and normal excretion of the tracer into the duodenum. The gallbladder fills however there is an apparent filling defect near the fundal gallbladder possibly reflecting gallbladder sludge or polyp. IMPRESSION: 1. No scintigraphic evidence for acute cholecystitis or common bile duct obstruction. 2. Apparent intraluminal filling defect near the fundal gallbladder, possibly secondary to gallbladder sludge or polyp The above report was generated using voice recognition software. It may contain grammatical, syntax or spelling errors. Electronically signed by: Dm Zepeda M.D. 01/15/2018 5:44 PM Dictated Date/Time: 01/15/2018 5:40 PM
[2018-01-15] MEDS: MONTELUKAST SOD 10 MG TAB PO SCH (20:31)
[2018-01-15] MEDS: MIRTAZAPINE TAB 15 MG TAB PO SCH (20:31)
[2018-01-15] MEDS: QUETIAPINE FUMARATE 200 MG TAB PO SCH (20:31)
[2018-01-15] MEDS: INSULIN GLARGINE SOLOSTAR 100 UNITS/ML 3 ML PEN SC SCH (21:30)
--- NOTE | 2018-01-15 23:54 | Progress Note ---
Subjective Date of Service: January 15, 2018. Subjective Pt evaluation today including: conversation w/ patient, physical exam, chart review, lab review, review of studies (HIDA scan, etc), conversation w/ otm consultant (nephrology), review of inpatient medication list Pain: back, right leg - stable, improved PO Intake: poor; too much nausea to consume food Voiding: no voiding problems continues with nausea, bloating, dyspepsia, and epigastric/RUQ pain reports she has had these symptoms for months; fatty foods and fried foods "would really make it bad" denies emesis despite the nausea Passing flatus no bowel movement today, however Problem List Medical Problems: (1) Acute bronchitis Status: Acute (2) Acute exacerbation of chronic obstructive pulmonary disease Status: Acute (3) Anemia Status: Acute (4) Anemia Status: Acute (5) Anemia Status: Acute (6) COPD exacerbation Status: Acute (7) COPD exacerbation Status: Acute (8) COPD exacerbation Status: Acute (9) COPD exacerbation Status: Acute (10) COPD exacerbation Status: Acute (11) Dehydration Status: Acute (12) ALVAREZ (dyspnea on exertion) Status: Acute (13) Hyperglycemia due to type 2 diabetes mellitus Status: Acute (14) Hypokalemia Status: Acute (15) Hypokalemia Status: Acute (16) Hypomagnesemia Status: Acute (17) Hypomagnesemia Status: Acute (18) Hypomagnesemia Status: Acute (19) Hyponatremia Status: Acute (20) Hypoxia Status: Acute (21) Lactic acidosis Status: Acute (22) Non-ST elevated myocardial infarction Status: Acute (23) Orthostatic hypotension Status: Acute (24) Sepsis Status: Acute (25) Sepsis Status: Acute (26) Shortness of breath Status: Acute (27) Tachypnea Status: Acute Review of Systems Constitutional: No fever, No chills Respiratory: No cough, No shortness of breath, No dyspnea at rest Cardiac: No chest pain, No orthopnea Abdomen: + see HPI, + pain, + nausea, No diarrhea, No constipation, No GI bleeding Objective Vital Signs Date Time Temp Pulse Resp B/P (MAP) Pulse Ox O2 Delivery O2 Flow Rate FiO2 01/15/18 21:21 101 131/71 (91) 01/15/18 19:41 81 18 96 Nasal Cannula 2.0 01/15/18 19:22 Nasal Cannula 01/15/18 15:25 37.0 84 18 123/71 (88) 95 01/15/18 15:06 81 18 95 Nasal Cannula 2.0 01/15/18 11:16 61 18 98 Nasal Cannula 2.0 01/15/18 08:30 Nasal Cannula 2.0 01/15/18 07:11 36.7 93 16 124/73 (90) 98 2.0 01/15/18 06:59 93 18 98 Nasal Cannula 2.0 01/15/18 03:10 98 18 98 Nasal Cannula 2.0 01/15/18 00:15 Nasal Cannula 2.0 01/14/18 23:04 37.0 108 20 96/65 (75) 94 Room Air 01/14/18 22:29 103 96/64 (75) Physical Exam General Appearance: no apparent distress ENT: pharynx normal Neck: no JVD Respiratory/Chest: no respiratory distress, no accessory muscle use, + pertinent finding (wheezing MUCH better today) Cardiovascular: no gallop, + tachycardia Abdomen: normal bowel sounds, soft, no organomegaly, + tenderness (RUQ/ epigastric region junction) Extremities: no pedal edema Neurologic/Psychiatric: no motor/sensory deficits (strength 5/5 b/l legs), alert, oriented x 3 Skin: + pertinent finding (PICC line RUE clean) Laboratory Results Last 24 Hours Test 01/15/18 05:12 01/15/18 05:13 01/15/18 08:15 01/15/18 15:06 Sodium Level 137 mmol/L Potassium Level 3.2 mmol/L Chloride Level 99 mmol/L Carbon Dioxide Level 36 mmol/L Anion Gap 2.0 mmol/L Blood Urea Nitrogen 9 mg/dl Creatinine 0.89 mg/dl Est Creatinine Clear Calc Drug Dose 59.1 ml/min Estimated GFR () 74.5 Estimated GFR (Non- 64.3 BUN/Creatinine Ratio 9.8 Random Glucose 129 mg/dl Calcium Level 9.4 mg/dl Magnesium Level 1.7 mg/dl Lipase 52 U/L White Blood Count 7.81 K/uL Red Blood Count 3.84 M/uL Hemoglobin 10.2 g/dL Hematocrit 31.5 % Mean Corpuscular Volume 82.0 fL Mean Corpuscular Hemoglobin 26.6 pg Mean Corpuscular Hemoglobin Concent 32.4 g/dl RDW Standard Deviation 55.1 fL RDW Coefficient of Variation 18.4 % Platelet Count 295 K/uL Mean Platelet Volume 7.8 fL Bedside Glucose 101 mg/dl Urine Random Creatinine 44.3 mg/dl Urine Random Sodium 31 mEq/L Urine Random Potassium 48.4 mEq/L Urine Random Chloride 46 mEq/L Urine Random Magnesium 15.6 mg/dl Urine Random Calcium 6.0 mg/dl Test 01/15/18 17:43 Bedside Glucose 114 mg/dl Assessment and Plan 72yo female with: 1. staph aureus (MSSA) septicemia 2nd to suspected aortic valve endocarditis and staph aureus lumbar epidural abscess - improved/septicemia resolved. most recent blood cultures now negative. will need 6-week course of IV nafcillin (or rocephin) for all infectious sources. Today is day #642. appreciate ID input. PICC line, RUE, is in place. 2. lumbar epidural abscess s/p laminectomy L2-S2; L2, L3, L4, L5, S1 and S2 laminectomy, foraminotomy, partial facetectomy. s/p Evacuation of abscess/hematoma at various aspects of lumbar spine. s/p Packing with gentamicin beads and closure over drain. Doing well from surgical standpoint. Needs to see Dr. Valverde after d/c within 10 days. 3. acute blood loss anemia - initially 2nd to posterior nosebleed vs esophagitis, then add additional blood loss following #2. s/p EGD this admission w/ esophagitis only. s/p 4 units PRBCs this stay. H/H stable. repeat Hb in am. 4. hypokalemia and hypomagnesemia - these were quite severe at time of admission in December. And, despite copious replacement, it has been challenging to keep these levels wnl. Low-dose diuretics have complicated the issue. [id number] her electrolyte issues have been ongoing for years. Hyperaldo state? Renal wasting syndrome? Other? Replace mag/K today. Start aldactone after renin/jayesh levels have been drawn. Nephrology consult requested w/ Dr. Hammond. Repeat labs in am. 5. nausea, RUQ pain, distended gall bladder on imaging - HIDA scan obtained today to r/o cholecystitis as cause of ongoing GI symptoms. Fortunately HIDA was neg for such. Will add carafate qid in the event it is ongoing esophagitis/gastritis causing the symptoms. Cont PPI twice daily. 6. 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 7. 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 Matamoros this admission. Ok with Dr. Valverde to resume systemic anticoagulation but will defer on such for now until we know that H/H are very stable. 8. acute synovitis of left thumb - was likely septic in origin from her bacteremia/endocarditis. resolved. 9. acute/chronic systolic/diastolic CHF - resolved. 10. hypothyroidism - cont synthroid. 11. GERD with esophagitis - PPI twice daily. 12. COPD - patient reports breathing is at baseline; cont all home inhalers, theophylline, as well as duonebs. 13. h/o ovarian cancer - noted. 14. T2DM - improved s/p lantus 8 units HS and novolog ac. 15. DVT proph - SCDs. 16. h/o PEs - noted. 17. ileus - replace K, replace mag, restrict her diet, repeat KUB x-ray in am. disp - [facility] left message for sister, Carmen - 01/13/18 Continued [facility] stay due to: inadequate po fluid intake, ambulation difficulties , multiple IV medications needed Discharge planning: rehab hospital
[2018-01-16] VITALS (8 sets, daily range): BP systolic 102–152; BP diastolic 54–71; PULSE 74–91; TEMP 36.3–37.2; O2SAT 95–98
[2018-01-16] MEDS: NAFCILLIN SOD IV 2 GM in DEXTROSE 5% ADD-VANTAGE 100ML 100 ML IV SCH ×6 (03:35→23:36)
[2018-01-16] MEDS: LEVOTHYROXINE 25 MCG TAB PO SCH (05:31)
[2018-01-16 06:39] LABS: CREATININE 0.96 mg/dl (0.60-1.20)
[2018-01-16 06:40] LABS: CALCIUM 9.6 mg/dl (8.5-10.1); POTASSIUM 3.3 mmol/L (3.5-5.1)
[2018-01-16] MEDS: BUDESONIDE 0.5 MG/2 ML VIAL (PULMICORT) INH SCH ×2 (07:09→19:05)
[2018-01-16] MEDS: ALBUT/IPRATROP 3MG/0.5MG NEB 3 ML VIAL INH SCH ×4 (07:09→19:04)
[2018-01-16] MEDS: ARFORMOTEROL TART 15MCG/2ML VIAL INH SCH ×2 (07:09→19:05)
[2018-01-16] MEDS: SUCRALFATE 1 GM/10 ML UDC PO SCH ×4 (08:39→21:23)
[2018-01-16] MEDS: PANTOprazole SOD 40 MG TAB PO SCH ×2 (08:40→21:26)
[2018-01-16] MEDS: MAGNESIUM OXIDE 400 MG TAB PO SCH ×2 (08:41→21:24)
[2018-01-16] MEDS: THEOPHYLLINE 400MG CONTROLLED REL TAB PO SCH (08:41)
[2018-01-16] MEDS: METOPROLOL TARTRATE 25 MG TAB PO SCH ×2 (08:41→21:26)
[2018-01-16] MEDS: ESCITALOPRAM OXALATE 10 MG TAB PO SCH (08:41)
[2018-01-16] MEDS: ROFLUMILAST 500 MCG TAB PO SCH (08:41)
[2018-01-16] MEDS: NYSTATIN SUSP 500,000 U/5 ML UDC PO SCH ×5 (08:43→21:23)
[2018-01-16] MEDS: POLYETHYLENE (MIRALAX) 17 GM PACK PO SCH (08:43)
[2018-01-16] MEDS: BISACODYL 5 MG TABEC PO SCH (08:43)
[2018-01-16] MEDS: CHOLECALCIFEROL 400 INTER.UNIT TAB PO SCH (08:43)
[2018-01-16] MEDS: DOCUSATE SODIUM/SENNA 50/8.6MG TAB PO SCH (08:44)
[2018-01-16] MEDS: INSULIN ASPART 100 UNITS/ML 3 ML PEN SC SCH ×4 (08:55→21:00)
[2018-01-16] MEDS ORDERED: POTASSIUM CHLORIDE 10 MEQ TABCR PO STA (08:58)
[2018-01-16] MEDS: TIOTROPIUM BROMIDE 5 PUFF/90 MCG INH INH SCH (09:44)
[2018-01-16] MEDS: ATORVASTATIN 40 MG TAB PO SCH (09:44)
[2018-01-16] MEDS: SPIRONOLACTONE 25 MG TAB PO SCH (09:45)
--- NOTE | 2018-01-16 10:57 | Nephrology Progress Note ---
Nephrology Progress Note Date of Service January 16, 2018. Chief Complaint Follow-up for hypokalemia and hypomagnesemia. Subjective Mini was seen and examined in her room this morning. Overall feeling well, no overnight events, denies any symptoms. Magnesium normalized supplement however potassium still remained low. Blood pressure variable but relatively well controlled. Review of Systems A complete review of systems was performed. Pertinent positives are noted above. All other systems are negative. Vital Signs Last 8 Hrs Date Time Temp Pulse Resp B/P (MAP) Pulse Ox O2 Delivery O2 Flow Rate FiO2 01/16/18 07:29 36.3 90 16 152/71 (98) 96 2.0 01/16/18 07:09 89 18 97 Nasal Cannula 2.0 Last Recorded Weight Weight (Kilograms): 87.700 Physical Exam GENERAL: Elderly female, AAA x 3, pleasant, healthy-appearing, not in any distress. NECK: Supple, no JVD. RESPIRATORY: Normal breathing efforts, no accessory muscle use, clear to auscultation bilaterally, no wheezes or rales. CARDIOVASCULAR: S1, S2 normal, rate rhythm regular. EXTREMITY: No lower extremity edema NEURO: speech fluent. PSYCHIATRY: Normal mood and judgment Family History No pertient family history secondary to age Negative for hypokalemia or CKD Social History Drug Use: none Marital Status: Housing Status: lives alone Occupation: retired . Retired. Lives in [place], [place] Laboratory Results Past 24 Hours 01/16/18 05:55 01/16/18 05:55 Test 01/15/18 11:55 01/15/18 15:06 01/15/18 17:43 01/15/18 20:21 Bedside Glucose 150 mg/dl (70-90) 114 mg/dl (70-90) 137 mg/dl (70-90) Urine Random Creatinine 44.3 mg/dl Urine Random Sodium 31 mEq/L Urine Random Potassium 48.4 mEq/L Urine Random Chloride 46 mEq/L Urine Random Magnesium 15.6 mg/dl Urine Random Calcium 6.0 mg/dl Test 01/16/18 05:55 Anion Gap 4.0 mmol/L (3-11) Est Creatinine Clear Calc Drug Dose 54.8 ml/min Estimated GFR () 68.0 Estimated GFR (Non- 58.7 BUN/Creatinine Ratio 8.0 (10-20) Calcium Level 9.6 mg/dl (8.5-10.1) Magnesium Level 1.9 mg/dl (1.8-2.4) Allergies Coded Allergies: Rabies Vaccine (Verified Allergy, Severe, HIVES, 10/28/17) Ragweed (Verified Allergy, Unknown, UNKNOWN, 10/28/17) Tomato (Verified Allergy, Unknown, HIVES, 10/28/17) Medications Current Inpatient Medications Medications (Trade) Dose Ordered Sig/Lulú Route Start Time Stop Time Status Last Admin Dose Admin Al Hydrox/Mg Hydrox/Simethicone (Maalox Max Susp) 15 ml Q4H PRN PO 01/05/18 23:15 02/04/18 23:14 Magnesium Hydroxide (Milk Of Magnesia Susp) 30 ml Q12H PRN PO 01/05/18 23:15 02/04/18 23:14 Ondansetron HCl (Zofran Inj) 4 mg Q6H PRN IV 01/05/18 23:15 02/04/18 23:14 01/15/18 12:15 4 MG Polyethylene (Miralax Powder Packet) 17 gm DAILY PRN PO 01/05/18 23:15 02/04/18 23:14 Atorvastatin Calcium (Lipitor Tab) 80 mg DAILY PO 01/06/18 09:00 02/05/18 08:59 01/15/18 08:55 80 MG Cholecalciferol (Vitamin D Tab) 400 inter.unit QAM PO 01/06/18 09:00 02/05/18 08:59 01/16/18 08:43 400 INTER.UNIT Clonazepam (Klonopin Tab) 0.5 mg Q12H PRN PO 01/05/18 23:15 02/04/18 23:14 01/08/18 21:20 0.5 MG Escitalopram Oxalate (Lexapro Tab) 10 mg DAILY PO 01/06/18 09:00 02/05/18 08:59 01/16/18 08:41 10 MG Levothyroxine Sodium (Synthroid Tab) 25 mcg DAILYBB PO 01/06/18 06:00 02/05/18 05:59 01/16/18 05:31 25 MCG Metoprolol Tartrate (Lopressor Tab) 25 mg BID PO 01/06/18 09:00 02/05/18 08:59 01/16/18 08:41 25 MG Albuterol/ Ipratropium (Duoneb) 3 ml QIDR INH 01/06/18 08:00 02/05/18 07:59 01/15/18 15:06 3 ML Arformoterol Tartrate (Brovana 15MCG/ 2ML Neb Soln) 15 mcg BIDR INH 01/06/18 08:00 02/05/18 07:59 01/16/18 07:09 15 MCG Budesonide (Pulmicort Respules 0.5MG/ 2ML Neb Soln) 0.5 mg BIDR INH 01/06/18 08:00 02/05/18 07:59 01/16/18 07:09 0.5 MG Quetiapine Fumarate (seroQUEL TAB) 200 mg HS PO 01/06/18 21:00 02/05/18 20:59 01/15/18 20:31 200 MG Roflumilast (Daliresp Tab) 500 mcg DAILY PO 01/06/18 09:00 02/05/18 08:59 01/16/18 08:41 500 MCG Tiotropium [place] (Spiriva Handihaler Inhaler) 1 puff DAILY INH 01/06/18 09:00 02/05/18 08:59 01/15/18 08:58 1 PUFF Mirtazapine (Remeron Tab) 30 mg HS PO 01/06/18 21:00 02/05/18 20:59 01/15/18 20:31 30 MG Glucose (Glucose 40% Gel) 15-30 GRAMS 15 GRAMS... UD PRN PO 01/06/18 04:30 02/05/18 04:29 Glucose (Glucose Chew Tab) 4-8 Tablets 4 Tabl... UD PRN PO 01/06/18 04:30 02/05/18 04:29 Dextrose (Dextrose 50% 50ML Syringe) 25-50ML OF 50% DW IV FOR... UD PRN IV 01/06/18 04:30 02/05/18 04:29 Glucagon (Glucagon Inj) 1 mg UD PRN SQ 01/06/18 04:30 02/05/18 04:29 Montelukast Sodium (Singulair Tab) 10 mg HS PO 01/06/18 21:00 02/05/18 20:59 01/15/18 20:31 10 MG Theophylline (Uniphyl Controlled Rel 24hr Tab) 400 mg QAM PO 01/07/18 09:00 02/06/18 08:59 01/16/18 08:41 400 MG Pantoprazole Sodium (Protonix Tab) 40 mg BID PO 01/08/18 09:00 02/07/18 08:59 01/16/18 08:40 40 MG Nafcillin Sodium 2 gm/Dextrose 100 ml @ 100 mls/hr Q4H IV 01/08/18 12:00 01/18/18 11:59 01/16/18 07:26 100 MLS/HR Acetaminophen (Tylenol Tab) 650 mg Q6H PRN PO 01/08/18 19:30 02/07/18 19:29 Hydromorphone HCl (Dilaudid Inj) 1 mg Q3H PRN IV 01/08/18 19:30 01/22/18 19:29 Hydromorphone HCl (Dilaudid Inj) 1.5 mg Q3H PRN IV 01/08/18 19:30 01/22/18 19:29 01/09/18 14:40 1.5 MG Promethazine HCl 12.5 mg/Sodium Chloride 50.5 ml @ 202 mls/hr Q6H PRN IV 01/08/18 19:30 02/07/18 19:29 01/15/18 15:18 202 MLS/HR Metoclopramide HCl (Reglan Inj) 10 mg Q6H PRN IV 01/08/18 19:30 02/07/18 19:29 01/15/18 21:24 10 MG Lorazepam (Ativan Tab) 1 mg Q6H PRN PO 01/08/18 19:30 02/07/18 19:29 Polyethylene (Miralax Powder Packet) 17 gm DAILY PO 01/09/18 09:00 02/08/18 08:59 01/16/18 08:43 17 GM Magnesium Hydroxide (Milk Of Magnesia Susp) 30 ml DAILY PRN PO 01/08/18 19:30 02/07/18 19:29 Diphenhydramine HCl (Benadryl Cap) 25 mg Q6H PRN PO 01/08/18 19:30 02/07/18 19:29 01/10/18 01:49 25 MG Oxycodone/ Acetaminophen (Percocet 5-325mg Tab) 1 tab Q4H PRN PO 01/08/18 19:30 01/22/18 19:29 01/13/18 11:19 1 TAB Oxycodone/ Acetaminophen (Percocet 5-325mg Tab) 2 tab Q4H PRN PO 01/08/18 19:30 01/22/18 19:29 01/15/18 17:52 2 TAB Bisacodyl (Dulcolax Tab) 5 mg DAILY PO 01/11/18 09:00 02/08/18 05:59 01/16/18 08:43 5 MG Senna/Docusate Sodium (Senokot S Tab) 1 tab QAM PO 01/11/18 09:00 02/10/18 08:59 01/16/18 08:44 1 TAB Heparin Sodium (Porcine) (Heparin 10 Unit/ ml 5 ml Flush) 5 ml PRN PRN FLUSH 01/10/18 15:45 02/09/18 15:44 01/16/18 08:55 5 ML Albuterol Sulfate (Ventolin 0.083% 2.5MG/3ML Neb) 2.5 mg Q2H PRN INH 01/10/18 17:45 02/09/18 17:44 01/13/18 04:41 2.5 MG Insulin Aspart (novoLOG ASPART) SLIDING SCALE G... ACHS SC 01/11/18 12:00 02/10/18 11:59 01/16/18 08:55 4 UNITS Bisacodyl (Dulcolax Supp) 10 mg DAILY PRN OK 01/11/18 15:30 02/10/18 15:29 Heparin Sodium (Porcine) (Heparin 10 Unit/ ml 5 ml Flush) 5 ml PRN PRN FLUSH 01/13/18 12:00 02/12/18 11:59 Magnesium Oxide (Mag-Ox Tab) 400 mg BID PO 01/13/18 21:00 02/12/18 20:59 01/16/18 08:41 400 MG Insulin Glargine (Lantus Solostar Pen) 8 units HS SC 01/13/18 21:00 02/12/18 20:59 01/15/18 21:30 8 UNITS Nystatin (Mycostatin Susp) 5 ml QID PO 01/14/18 17:00 01/24/18 16:59 01/16/18 08:43 5 ML Spironolactone (Aldactone Tab) 50 mg QAM PO 01/16/18 09:00 02/15/18 08:59 Sucralfate (Carafate Susp) 1 gm ACHS PO 01/16/18 08:00 02/15/18 07:59 01/16/18 08:39 1 GM Impression (1) Hypokalemia (2) Hypomagnesemia (3) MSSA (methicillin susceptible Staphylococcus aureus) septicemia (4) Spinal abscess (5) Endocarditis (6) Septic thrombophlebitis (7) GI bleed (8) Diabetes At the time of admission Ms. Clemons was found to have hypomagnesemia and profound hypokalemia in the setting of metabolic alkalosis and normal blood pressure. 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 Unfortunately her history is also suggestive of intermediate PPI and intermittent loop diuretic use. These medications complicate the picture. 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 Fractional excretion of magnesium was 29 in the setting of hypomagnesemia suggestive of renal magnesium wasting. The normal urinary potassium in the setting of hypokalemia suggestive of renal wasting. Urine calcium creatinine ratio is normal ( <0.13 ) Recommendations -- urine electrolyte suggest renal magnesium wasting --random urine potassium normal in the setting of persistent hypokalemia is also suggestive of renal potassium wasting --replace potassium with 40 him mEq x1 dose now, continue on spironolactone 50 mg daily and Magnesium Oxide 400 mg po BID --if blood pressure stable and potassium still remained low, will increase spironolactone to 100 -- Await results of renin and aldosterone testing (samples obtained prior to starting Spironolactone) -- Will obtain spot urine lytes and creatinine to calculate FeMg and Ca/Cr ratio -- Will recheck Mg and PRP in am
[2018-01-16] MEDS: ONDANSETRON INJ 2 MG/ML 2 ML VIAL IV PRN (11:50)
--- NOTE | 2018-01-16 11:58 | DIAGNOSTIC IMAGING REPORT ---
KUB CLINICAL HISTORY: 72 years-old Female presenting with ileus. TECHNIQUE: Single supine view of the abdomen was obtained. COMPARISON: 01/14/2018. FINDINGS: Mild diffuse gaseous distention of small and large bowel. Surgical skin marisol project over the midline abdomen. An IVC filter projects at the L1-2 level. Allowing for supine technique, no evidence of pneumoperitoneum. Allowing for bowel gas and stool, no calcifications to suggest nephrolithiasis. Few pelvic phleboliths noted. Degenerative changes of the spine. Lung bases clear. IMPRESSION: 1. Mild diffuse gaseous distention of bowel. This could be normal or represent a mild ileus. No evidence of obstruction or gross free air. Electronically signed by: Callum Avila M.D. 01/16/2018 11:57 AM Dictated Date/Time: 01/16/2018 11:55 AM
[2018-01-16] MEDS ORDERED: POTASSIUM CHLR 10 MEQ / WTR 100 ML IV STA (16:44)
[2018-01-16] MEDS: POTASSIUM CHLORIDE 20 MEQ TABCR PO SCH (21:23)
[2018-01-16] MEDS: MIRTAZAPINE TAB 15 MG TAB PO SCH (21:24)
[2018-01-16] MEDS: QUETIAPINE FUMARATE 200 MG TAB PO SCH (21:25)
[2018-01-16] MEDS: MONTELUKAST SOD 10 MG TAB PO SCH (21:26)
[2018-01-16] MEDS: INSULIN GLARGINE SOLOSTAR 100 UNITS/ML 3 ML PEN SC SCH (21:44)
[2018-01-17] VITALS (9 sets, daily range): BP systolic 114–129; BP diastolic 62–72; PULSE 71–104; TEMP 37.3–37.5; O2SAT 90–95
[2018-01-17] MEDS: NAFCILLIN SOD IV 2 GM in DEXTROSE 5% ADD-VANTAGE 100ML 100 ML IV SCH ×5 (04:00→19:41)
[2018-01-17] MEDS: LEVOTHYROXINE 25 MCG TAB PO SCH (05:21)
[2018-01-17 06:35] LABS: CALCIUM 9.4 mg/dl (8.5-10.1); CREATININE 0.91 mg/dl (0.60-1.20); POTASSIUM 3.5 mmol/L (3.5-5.1)
[2018-01-17] MEDS: ARFORMOTEROL TART 15MCG/2ML VIAL INH SCH ×2 (07:15→19:02)
[2018-01-17] MEDS: ALBUT/IPRATROP 3MG/0.5MG NEB 3 ML VIAL INH SCH ×4 (07:15→19:02)
[2018-01-17] MEDS: BUDESONIDE 0.5 MG/2 ML VIAL (PULMICORT) INH SCH ×2 (07:15→19:02)
[2018-01-17] MEDS: SUCRALFATE 1 GM/10 ML UDC PO SCH ×4 (08:10→21:05)
--- NOTE | 2018-01-17 08:21 | Progress Note ---
Subjective Date of Service: January 16, 2018. Subjective Pt evaluation today including: conversation w/ patient, physical exam, chart review, lab review, review of inpatient medication list Pain: back, right leg - improving PO Intake: tolerating clears but doesn't want it advanced Voiding: no voiding problems minimal nausea today no emesis tolerating clears no other complaints today passing plenty of flatus and had a liquid stool today Problem List Medical Problems: (1) Acute bronchitis Status: Acute (2) Acute exacerbation of chronic obstructive pulmonary disease Status: Acute (3) Anemia Status: Acute (4) Anemia Status: Acute (5) Anemia Status: Acute (6) COPD exacerbation Status: Acute (7) COPD exacerbation Status: Acute (8) COPD exacerbation Status: Acute (9) COPD exacerbation Status: Acute (10) COPD exacerbation Status: Acute (11) Dehydration Status: Acute (12) ALVAREZ (dyspnea on exertion) Status: Acute (13) Hyperglycemia due to type 2 diabetes mellitus Status: Acute (14) Hypokalemia Status: Acute (15) Hypokalemia Status: Acute (16) Hypomagnesemia Status: Acute (17) Hypomagnesemia Status: Acute (18) Hypomagnesemia Status: Acute (19) Hyponatremia Status: Acute (20) Hypoxia Status: Acute (21) Lactic acidosis Status: Acute (22) Non-ST elevated myocardial infarction Status: Acute (23) Orthostatic hypotension Status: Acute (24) Sepsis Status: Acute (25) Sepsis Status: Acute (26) Shortness of breath Status: Acute (27) Tachypnea Status: Acute Review of Systems Constitutional: No fever Respiratory: + wheezing, No shortness of breath, No dyspnea on exertion Cardiac: No chest pain Abdomen: + nausea, No pain, No vomiting Objective Vital Signs Date Time Temp Pulse Resp B/P (MAP) Pulse Ox O2 Delivery O2 Flow Rate FiO2 01/16/18 21:25 90 123/54 (77) 01/16/18 19:07 90 18 96 Nasal Cannula 2.0 01/16/18 15:55 Nasal Cannula 01/16/18 15:55 37.2 91 16 136/71 (92) 98 Nasal Cannula 2.0 01/16/18 15:25 81 18 98 Nasal Cannula 2.0 01/16/18 11:22 74 18 97 Nasal Cannula 2.0 01/16/18 07:40 Nasal Cannula 2.0 01/16/18 07:29 36.3 90 16 152/71 (98) 96 2.0 01/16/18 07:09 89 18 97 Nasal Cannula 2.0 01/15/18 22:58 37.0 104 20 130/67 (88) 96 Nasal Cannula 2.0 Physical Exam General Appearance: no apparent distress, + pertinent finding (looks good today ) ENT: pharynx normal Neck: no JVD Respiratory/Chest: no respiratory distress, no accessory muscle use, + wheezing (mild, fair airation) Cardiovascular: no gallop, no murmur, + tachycardia Abdomen: normal bowel sounds, non tender, no organomegaly, + distended (mild) Extremities: no pedal edema Neurologic/Psychiatric: alert, oriented x 3 Laboratory Results Last 24 Hours Test 01/16/18 05:55 01/16/18 08:12 01/16/18 12:11 01/16/18 17:11 Hemoglobin 9.9 g/dL Sodium Level 138 mmol/L Potassium Level 3.3 mmol/L Chloride Level 99 mmol/L Carbon Dioxide Level 35 mmol/L Anion Gap 4.0 mmol/L Blood Urea Nitrogen 8 mg/dl Creatinine 0.96 mg/dl Est Creatinine Clear Calc Drug Dose 54.8 ml/min Estimated GFR () 68.0 Estimated GFR (Non- 58.7 BUN/Creatinine Ratio 8.0 Random Glucose 136 mg/dl Calcium Level 9.6 mg/dl Magnesium Level 1.9 mg/dl Bedside Glucose 117 mg/dl 90 mg/dl 119 mg/dl Test 01/16/18 20:31 Bedside Glucose 108 mg/dl Assessment and Plan 72yo female with: 1. staph aureus (MSSA) septicemia 2nd to suspected aortic valve endocarditis and staph aureus lumbar epidural abscess - improved/septicemia resolved. most recent blood cultures now negative. will need 6-week course of IV nafcillin (or rocephin) for all infectious sources. Today is day #. appreciate ID input. PICC line, RUE, is in place. 2. lumbar epidural abscess s/p laminectomy L2-S2; L2, L3, L4, L5, S1 and S2 laminectomy, foraminotomy, partial facetectomy. s/p Evacuation of abscess/hematoma at various aspects of lumbar spine. s/p Packing with gentamicin beads and closure over drain. Doing well from surgical standpoint. Needs to see Dr. Valverde after d/c within 10 days. 3. acute blood loss anemia - initially 2nd to posterior nosebleed vs esophagitis, then add additional blood loss following #2. s/p EGD this admission w/ esophagitis only. s/p 4 units PRBCs this stay. H/H stable. repeat Hb today 9.9 and stable. 4. hypokalemia and hypomagnesemia - these were quite severe at time of admission in December. And, despite copious replacement, it has been challenging to keep these levels wnl. Low-dose diuretics have complicated the issue. [id number] her electrolyte issues have been ongoing for years. Hyperaldo state? Renal wasting syndrome? Other? Replace mag/K once again (IV and PO). Started aldactone after renin/jayesh levels were drawn. Nephrology consult and recs appreciated. BMP/mag in am. 5. nausea, RUQ pain, distended gall bladder on imaging - HIDA scan negative for acute cholecystitis as cause of ongoing GI symptoms. cont PPI bid and carafate. many of her symptoms are likely from the ileus. 6. 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 7. 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 Matamoros this admission. Ok with Dr. Valverde to resume systemic anticoagulation but will defer on such for now until we know that H/H are very stable and no evidence of any GI bleeding. 8. acute synovitis of left thumb - was likely septic in origin from her bacteremia/endocarditis. resolved. 9. acute/chronic systolic/diastolic CHF - resolved. 10. hypothyroidism - cont synthroid. 11. GERD with esophagitis - PPI twice daily. 12. COPD - patient reports breathing is at baseline; cont all home inhalers, theophylline, as well as duonebs. 13. h/o ovarian cancer - noted. 14. T2DM - controlled. 15. DVT proph - SCDs. 16. h/o PEs - noted. 17. ileus - likely ongoing due to low K and low mag. advance diet to full liquids. dispo - [facility] Continued [facility] stay due to: inadequate po fluid intake, ambulation difficulties , multiple IV medications needed Discharge planning: rehab hospital
[2018-01-17] MEDS: TIOTROPIUM BROMIDE 5 PUFF/90 MCG INH INH SCH (08:54)
[2018-01-17] MEDS: ESCITALOPRAM OXALATE 10 MG TAB PO SCH (08:56)
[2018-01-17] MEDS: CHOLECALCIFEROL 400 INTER.UNIT TAB PO SCH (08:56)
[2018-01-17] MEDS: METOPROLOL TARTRATE 25 MG TAB PO SCH ×2 (08:56→21:06)
[2018-01-17] MEDS: BISACODYL 5 MG TABEC PO SCH (08:56)
[2018-01-17] MEDS: ATORVASTATIN 40 MG TAB PO SCH (08:56)
[2018-01-17] MEDS: POTASSIUM CHLORIDE 20 MEQ TABCR PO SCH ×2 (08:57→21:06)
[2018-01-17] MEDS: SPIRONOLACTONE 25 MG TAB PO SCH (08:58)
[2018-01-17] MEDS: ROFLUMILAST 500 MCG TAB PO SCH (08:58)
[2018-01-17] MEDS: POLYETHYLENE (MIRALAX) 17 GM PACK PO SCH (08:59)
[2018-01-17] MEDS: MAGNESIUM OXIDE 400 MG TAB PO SCH ×2 (08:59→21:06)
[2018-01-17] MEDS: PANTOprazole SOD 40 MG TAB PO SCH ×2 (08:59→21:06)
[2018-01-17] MEDS: THEOPHYLLINE 400MG CONTROLLED REL TAB PO SCH (08:59)
[2018-01-17] MEDS: NYSTATIN SUSP 500,000 U/5 ML UDC PO SCH ×5 (08:59→21:00)
[2018-01-17] MEDS: DOCUSATE SODIUM/SENNA 50/8.6MG TAB PO SCH (08:59)
[2018-01-17] MEDS: INSULIN ASPART 100 UNITS/ML 3 ML PEN SC SCH ×4 (09:07→20:57)
[2018-01-17] MEDS: MAGNESIUM SULFATE 1GM / D5W 100 ML IV SCH ×2 (09:24→10:20)
--- NOTE | 2018-01-17 10:15 | Nephrology Progress Note ---
Nephrology Progress Note Date of Service January 17, 2018. Chief Complaint Follow-up for hypokalemia and hypomagnesemia. Subjective Mini was seen and examined in her room this morning. Overall feeling well, no overnight events, denies any symptoms. Magnesium and potassium improved. Blood pressure well controlled. Review of Systems A complete review of systems was performed. Pertinent positives are noted above. All other systems are negative. Vital Signs Last 8 Hrs Date Time Temp Pulse Resp B/P (MAP) Pulse Ox O2 Delivery O2 Flow Rate FiO2 01/17/18 07:23 37.3 85 16 119/68 (85) 95 2.0 01/17/18 07:16 85 18 93 Nasal Cannula 2.0 Last Recorded Weight Weight (Kilograms): 87.100 Physical Exam GENERAL: Elderly female, AAA x 3, pleasant, healthy-appearing, not in any distress. NECK: Supple, no JVD. RESPIRATORY: Normal breathing efforts, no accessory muscle use, clear to auscultation bilaterally, no wheezes or rales. CARDIOVASCULAR: S1, S2 normal, rate rhythm regular. EXTREMITY: No lower extremity edema NEURO: speech fluent. PSYCHIATRY: Normal mood and judgment Family History No pertient family history secondary to age Negative for hypokalemia or CKD Social History Drug Use: none Marital Status: Housing Status: lives alone Occupation: retired . Retired. Lives in [place], [place] Laboratory Results Past 24 Hours 01/17/18 05:46 Test 01/16/18 12:11 01/16/18 17:11 01/16/18 20:31 01/17/18 05:46 Bedside Glucose 90 mg/dl (70-90) 119 mg/dl (70-90) 108 mg/dl (70-90) Anion Gap 5.0 mmol/L (3-11) Est Creatinine Clear Calc Drug Dose 57.6 ml/min Estimated GFR () 72.5 Estimated GFR (Non- 62.6 BUN/Creatinine Ratio 5.6 (10-20) Calcium Level 9.4 mg/dl (8.5-10.1) Magnesium Level 1.7 mg/dl (1.8-2.4) Test 01/17/18 08:10 Bedside Glucose 91 mg/dl (70-90) Allergies Coded Allergies: Rabies Vaccine (Verified Allergy, Severe, HIVES, 10/28/17) Ragweed (Verified Allergy, Unknown, UNKNOWN, 10/28/17) Tomato (Verified Allergy, Unknown, HIVES, 10/28/17) Medications Current Inpatient Medications Medications (Trade) Dose Ordered Sig/Lulú Route Start Time Stop Time Status Last Admin Dose Admin Al Hydrox/Mg Hydrox/Simethicone (Maalox Max Susp) 15 ml Q4H PRN PO 01/05/18 23:15 02/04/18 23:14 Magnesium Hydroxide (Milk Of Magnesia Susp) 30 ml Q12H PRN PO 01/05/18 23:15 02/04/18 23:14 Ondansetron HCl (Zofran Inj) 4 mg Q6H PRN IV 01/05/18 23:15 02/04/18 23:14 01/16/18 11:50 4 MG Polyethylene (Miralax Powder Packet) 17 gm DAILY PRN PO 01/05/18 23:15 02/04/18 23:14 Atorvastatin Calcium (Lipitor Tab) 80 mg DAILY PO 01/06/18 09:00 02/05/18 08:59 01/17/18 08:56 80 MG Cholecalciferol (Vitamin D Tab) 400 inter.unit QAM PO 01/06/18 09:00 02/05/18 08:59 01/17/18 08:56 400 INTER.UNIT Clonazepam (Klonopin Tab) 0.5 mg Q12H PRN PO 01/05/18 23:15 02/04/18 23:14 01/08/18 21:20 0.5 MG Escitalopram Oxalate (Lexapro Tab) 10 mg DAILY PO 01/06/18 09:00 02/05/18 08:59 01/17/18 08:56 10 MG Levothyroxine Sodium (Synthroid Tab) 25 mcg DAILYBB PO 01/06/18 06:00 02/05/18 05:59 01/17/18 05:21 25 MCG Metoprolol Tartrate (Lopressor Tab) 25 mg BID PO 01/06/18 09:00 02/05/18 08:59 01/17/18 08:56 25 MG Albuterol/ Ipratropium (Duoneb) 3 ml QIDR INH 01/06/18 08:00 02/05/18 07:59 01/16/18 15:24 3 ML Arformoterol Tartrate (Brovana 15MCG/ 2ML Neb Soln) 15 mcg BIDR INH 01/06/18 08:00 02/05/18 07:59 01/17/18 07:15 15 MCG Budesonide (Pulmicort Respules 0.5MG/ 2ML Neb Soln) 0.5 mg BIDR INH 01/06/18 08:00 02/05/18 07:59 01/17/18 07:15 0.5 MG Quetiapine Fumarate (seroQUEL TAB) 200 mg HS PO 01/06/18 21:00 02/05/18 20:59 01/16/18 21:25 200 MG Roflumilast (Daliresp Tab) 500 mcg DAILY PO 01/06/18 09:00 02/05/18 08:59 01/17/18 08:58 500 MCG Tiotropium Empire (Spiriva Handihaler Inhaler) 1 puff DAILY INH 01/06/18 09:00 02/05/18 08:59 01/17/18 08:54 1 PUFF Mirtazapine (Remeron Tab) 30 mg HS PO 01/06/18 21:00 02/05/18 20:59 01/16/18 21:24 30 MG Glucose (Glucose 40% Gel) 15-30 GRAMS 15 GRAMS... UD PRN PO 01/06/18 04:30 02/05/18 04:29 Glucose (Glucose Chew Tab) 4-8 Tablets 4 Tabl... UD PRN PO 01/06/18 04:30 02/05/18 04:29 Dextrose (Dextrose 50% 50ML Syringe) 25-50ML OF 50% DW IV FOR... UD PRN IV 01/06/18 04:30 02/05/18 04:29 Glucagon (Glucagon Inj) 1 mg UD PRN SQ 01/06/18 04:30 02/05/18 04:29 Montelukast Sodium (Singulair Tab) 10 mg HS PO 01/06/18 21:00 02/05/18 20:59 01/16/18 21:26 10 MG Theophylline (Uniphyl Controlled Rel 24hr Tab) 400 mg QAM PO 01/07/18 09:00 02/06/18 08:59 01/17/18 08:59 400 MG Pantoprazole Sodium (Protonix Tab) 40 mg BID PO 01/08/18 09:00 02/07/18 08:59 01/17/18 08:59 40 MG Nafcillin Sodium 2 gm/Dextrose 100 ml @ 100 mls/hr Q4H IV 01/08/18 12:00 01/18/18 11:59 01/17/18 08:09 100 MLS/HR Acetaminophen (Tylenol Tab) 650 mg Q6H PRN PO 01/08/18 19:30 02/07/18 19:29 Hydromorphone HCl (Dilaudid Inj) 1 mg Q3H PRN IV 01/08/18 19:30 01/22/18 19:29 Hydromorphone HCl (Dilaudid Inj) 1.5 mg Q3H PRN IV 01/08/18 19:30 01/22/18 19:29 01/09/18 14:40 1.5 MG Promethazine HCl 12.5 mg/Sodium Chloride 50.5 ml @ 202 mls/hr Q6H PRN IV 01/08/18 19:30 02/07/18 19:29 01/15/18 15:18 202 MLS/HR Metoclopramide HCl (Reglan Inj) 10 mg Q6H PRN IV 01/08/18 19:30 02/07/18 19:29 01/15/18 21:24 10 MG Lorazepam (Ativan Tab) 1 mg Q6H PRN PO 01/08/18 19:30 02/07/18 19:29 Polyethylene (Miralax Powder Packet) 17 gm DAILY PO 01/09/18 09:00 02/08/18 08:59 01/17/18 08:59 17 GM Magnesium Hydroxide (Milk Of Magnesia Susp) 30 ml DAILY PRN PO 01/08/18 19:30 02/07/18 19:29 Diphenhydramine HCl (Benadryl Cap) 25 mg Q6H PRN PO 01/08/18 19:30 02/07/18 19:29 01/10/18 01:49 25 MG Oxycodone/ Acetaminophen (Percocet 5-325mg Tab) 1 tab Q4H PRN PO 01/08/18 19:30 01/22/18 19:29 01/13/18 11:19 1 TAB Oxycodone/ Acetaminophen (Percocet 5-325mg Tab) 2 tab Q4H PRN PO 01/08/18 19:30 01/22/18 19:29 01/15/18 17:52 2 TAB Bisacodyl (Dulcolax Tab) 5 mg DAILY PO 01/11/18 09:00 02/08/18 05:59 01/17/18 08:56 5 MG Senna/Docusate Sodium (Senokot S Tab) 1 tab QAM PO 01/11/18 09:00 02/10/18 08:59 01/17/18 08:59 1 TAB Heparin Sodium (Porcine) (Heparin 10 Unit/ ml 5 ml Flush) 5 ml PRN PRN FLUSH 01/10/18 15:45 02/09/18 15:44 01/17/18 05:45 5 ML Albuterol Sulfate (Ventolin 0.083% 2.5MG/3ML Neb) 2.5 mg Q2H PRN INH 01/10/18 17:45 02/09/18 17:44 01/13/18 04:41 2.5 MG Insulin Aspart (novoLOG ASPART) SLIDING SCALE G... ACHS SC 01/11/18 12:00 02/10/18 11:59 01/17/18 09:07 6 UNITS Bisacodyl (Dulcolax Supp) 10 mg DAILY PRN UT 01/11/18 15:30 02/10/18 15:29 Heparin Sodium (Porcine) (Heparin 10 Unit/ ml 5 ml Flush) 5 ml PRN PRN FLUSH 01/13/18 12:00 02/12/18 11:59 Magnesium Oxide (Mag-Ox Tab) 400 mg BID PO 01/13/18 21:00 02/12/18 20:59 01/17/18 08:59 400 MG Insulin Glargine (Lantus Solostar Pen) 8 units HS SC 01/13/18 21:00 02/12/18 20:59 01/16/18 21:44 8 UNITS Nystatin (Mycostatin Susp) 5 ml QID PO 01/14/18 17:00 01/24/18 16:59 01/17/18 08:59 5 ML Spironolactone (Aldactone Tab) 50 mg QAM PO 5/5/18 09:00 02/15/18 08:59 01/17/18 08:58 50 MG Sucralfate (Carafate Susp) 1 gm ACHS PO 01/16/18 08:00 02/15/18 07:59 01/17/18 08:10 1 GM Potassium Chloride (Klor-Con Tab) 40 meq BID PO 01/16/18 21:00 02/15/18 20:59 01/17/18 08:57 40 MEQ Magnesium Sulfate 100 ml @ 100 mls/hr Q1H IV 01/17/18 09:00 01/17/18 10:59 Impression (1) Hypokalemia (2) Hypomagnesemia (3) MSSA (methicillin susceptible Staphylococcus aureus) septicemia (4) Spinal abscess (5) Endocarditis (6) Septic thrombophlebitis (7) GI bleed (8) Diabetes At the time of admission Ms. Clemons was found to have hypomagnesemia and profound hypokalemia in the setting of metabolic alkalosis and normal blood pressure. 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 Unfortunately her history is also suggestive of group home PPI and intermittent loop diuretic use. These medications complicate the picture. However, it appears now that she would benefit from group home Mg supplementation and use of an aldosterone antagonist or Amiloride. Fractional excretion of magnesium was 29 in the setting of hypomagnesemia suggestive of renal magnesium wasting. The normal urinary potassium in the setting of hypokalemia suggestive of renal wasting. 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 Recommendations --continue on spironolactone 50 mg daily, KCL and Magnesium Oxide 400 mg po BID , No need for IV mag unless mg <1.2 -- Await results of renin and aldosterone testing (samples obtained prior to starting Spironolactone) -- Will recheck Mg and PRP in am Will follow
[2018-01-17] MEDS: ONDANSETRON INJ 2 MG/ML 2 ML VIAL IV PRN ×2 (12:08→19:29)
[2018-01-17] MEDS: OXYCODONE/ACETAMINOPHEN 5-325 TAB PO PRN (19:30)
[2018-01-17] MEDS: INSULIN GLARGINE SOLOSTAR 100 UNITS/ML 3 ML PEN SC SCH (20:59)
[2018-01-17] MEDS: MIRTAZAPINE TAB 15 MG TAB PO SCH (21:05)
[2018-01-17] MEDS: QUETIAPINE FUMARATE 200 MG TAB PO SCH (21:05)
[2018-01-17] MEDS: MONTELUKAST SOD 10 MG TAB PO SCH (21:06)
--- NOTE | 2018-01-17 23:53 | Progress Note ---
Subjective Date of Service: January 17, 2018. Subjective Pt evaluation today including: conversation w/ patient, physical exam, chart review, lab review, review of inpatient medication list Pain: back/right leg - no change PO Intake: tolerating full liquids Voiding: no voiding problems staff report patient is quite inactive, only spending a small amount of time in the chair today pt had a very large bowel movement this am denies dyspnea denies any depression if [facility] is not an option for rehab she would be willing to go to [facility] in [place] but [facility] in [place] Problem List Medical Problems: (1) Acute bronchitis Status: Acute (2) Acute exacerbation of chronic obstructive pulmonary disease Status: Acute (3) Anemia Status: Acute (4) Anemia Status: Acute (5) Anemia Status: Acute (6) COPD exacerbation Status: Acute (7) COPD exacerbation Status: Acute (8) COPD exacerbation Status: Acute (9) COPD exacerbation Status: Acute (10) COPD exacerbation Status: Acute (11) Dehydration Status: Acute (12) ALVAREZ (dyspnea on exertion) Status: Acute (13) Hyperglycemia due to type 2 diabetes mellitus Status: Acute (14) Hypokalemia Status: Acute (15) Hypokalemia Status: Acute (16) Hypomagnesemia Status: Acute (17) Hypomagnesemia Status: Acute (18) Hypomagnesemia Status: Acute (19) Hyponatremia Status: Acute (20) Hypoxia Status: Acute (21) Lactic acidosis Status: Acute (22) Non-ST elevated myocardial infarction Status: Acute (23) Orthostatic hypotension Status: Acute (24) Sepsis Status: Acute (25) Sepsis Status: Acute (26) Shortness of breath Status: Acute (27) Tachypnea Status: Acute Review of Systems Constitutional: No fever Respiratory: No cough Cardiac: No chest pain, No orthopnea Abdomen: + nausea (scant - much improved), No pain, No vomiting, No diarrhea, No constipation Objective Vital Signs Date Time Temp Pulse Resp B/P (MAP) Pulse Ox O2 Delivery O2 Flow Rate FiO2 01/17/18 21:00 104 114/64 (81) 01/17/18 19:02 91 16 94 Nasal Cannula 2.0 01/17/18 16:30 Nasal Cannula 2.0 01/17/18 16:21 37.5 89 16 126/72 (90) 94 Nasal Cannula 2.0 01/17/18 15:19 75 18 90 Nasal Cannula 2.0 01/17/18 11:07 71 20 93 Nasal Cannula 2.0 01/17/18 10:34 71 95 01/17/18 08:00 Nasal Cannula 2.0 01/17/18 07:23 37.3 85 16 119/68 (85) 95 2.0 01/17/18 07:16 85 18 93 Nasal Cannula 2.0 01/16/18 23:40 Nasal Cannula 2.0 01/16/18 23:10 37.0 90 20 102/64 (77) 95 2.0 Physical Exam General Appearance: no apparent distress ENT: pharynx normal Neck: no JVD Respiratory/Chest: no respiratory distress, no accessory muscle use, + wheezing (minimal end-exp wheeze, decreased BS bases) Cardiovascular: regular rate, rhythm, no gallop, + systolic murmur (1/6 RUSB, early systolic) Abdomen: normal bowel sounds, non tender, soft, no organomegaly, + pertinent finding (distension much improved ) Extremities: + pedal edema (trace b/l ) Neurologic/Psychiatric: no motor/sensory deficits, alert, oriented x 3, + depressed affect Skin: + pertinent finding (PICC line RUE clean) Comments: back - marisol intact, minimal erythema lower portion of incision, no drainage Laboratory Results Last 24 Hours Test 01/17/18 05:46 01/17/18 08:10 01/17/18 12:04 01/17/18 17:02 Sodium Level 139 mmol/L Potassium Level 3.5 mmol/L Chloride Level 102 mmol/L Carbon Dioxide Level 32 mmol/L Anion Gap 5.0 mmol/L Blood Urea Nitrogen 5 mg/dl Creatinine 0.91 mg/dl Est Creatinine Clear Calc Drug Dose 57.6 ml/min Estimated GFR () 72.5 Estimated GFR (Non- 62.6 BUN/Creatinine Ratio 5.6 Random Glucose 103 mg/dl Calcium Level 9.4 mg/dl Magnesium Level 1.7 mg/dl Bedside Glucose 91 mg/dl 72 mg/dl 122 mg/dl Test 01/17/18 20:46 Bedside Glucose 144 mg/dl Assessment and Plan 72yo female with: 1. staph aureus (MSSA) septicemia 2nd to suspected aortic valve endocarditis and staph aureus lumbar epidural abscess - improved/septicemia resolved. most recent blood cultures now negative. will need 6-week course of IV nafcillin (or rocephin) for all infectious sources. Today is day #8. appreciate ID input. PICC line, RUE, is in place. 2. lumbar epidural abscess s/p laminectomy L2-S2; L2, L3, L4, L5, S1 and S2 laminectomy, foraminotomy, partial facetectomy. s/p Evacuation of abscess/hematoma at various aspects of lumbar spine. s/p Packing with gentamicin beads and closure over drain. Doing well from surgical standpoint. Needs to see Dr. Valverde after d/c within 10 days. 3. acute blood loss anemia - initially 2nd to posterior nosebleed vs esophagitis, then had additional blood loss following #2. s/p EGD this admission w/ esophagitis only. s/p 4 units PRBCs this stay. H/H stable since the pRBC infusion. CBC in am for stability. 4. hypokalemia and hypomagnesemia - these were quite severe at time of admission in December. And, despite copious replacement, it has been challenging to keep these levels wnl. Low-dose diuretics have complicated the issue. [id number] her electrolyte issues have been ongoing for years. Hyperaldo state? Renal wasting syndrome? Other? Started aldactone after renin/jayesh levels were drawn. Nephrology consult and recs appreciated. Urine mag levels c/w renal wasting. K normal today. Mag minimally depressed today; will give mag sulfate IV again today. Cont PO K and mag supplementation. 5. nausea, RUQ pain, distended gall bladder on imaging - HIDA scan negative for acute cholecystitis as cause of ongoing GI symptoms. cont PPI bid and carafate. many of her symptoms are likely from the ileus and esophagitis. 6. 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 7. 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 Matamoros this admission. Ok with Dr. Valverde to resume systemic anticoagulation at this time. But will defer on resuming xarelto or until we know that H/H are very stable and no evidence of any GI bleeding. 8. acute synovitis of left thumb - was likely septic in origin from her bacteremia/endocarditis. resolved. 9. acute/chronic systolic/diastolic CHF - resolved. 10. hypothyroidism - cont synthroid. 11. GERD with esophagitis - PPI twice daily. Carafate x 10-14 days. 12. COPD - patient reports breathing is at baseline; cont all home inhalers, theophylline, as well as duonebs. 13. h/o ovarian cancer - noted. 14. T2DM - controlled. Lantus 8 units HS. 15. DVT proph - SCDs. 16. h/o PEs - noted. See #7 above. 17. ileus - finally resolved with copious stool and flatus along with less abdominal bloating. Advance diet to low fiber, diabetic diet. 18. candidal rash groin - nystatin powder. lengthy discussion held with patient today about rehab options she has her heart set on [facility], but she has been very inactive, and I am concerned she may not tolerate 3 hours of therapy today her severe COPD may be limiting for her too she would be ok with referral to [facility] if [facility] is not an option other option would be a swing bed on the medical unit at [facility]; the hospitalists there could care for will involve social work tomorrow dispo - [facility] vs SNF for rehab vs swing bed vs other left message for pt's sister 01/17/18 Continued [facility] stay due to: ambulation difficulties, multiple IV medications needed Discharge planning: rehab hospital ([facility] for rehab )
[2018-01-18] MEDS: NAFCILLIN SOD IV 2 GM in DEXTROSE 5% ADD-VANTAGE 100ML 100 ML IV SCH ×3 (00:41→07:29)
[2018-01-18] MEDS: LEVOTHYROXINE 25 MCG TAB PO SCH (05:26)
[2018-01-18 06:23] LABS: HEMATOCRIT 31.9 % (37-47); HEMOGLOBIN 9.9 g/dL (12.0-16.0); MEAN CELL VOLUME 83.7 fL (80-100); PLATELET COUNT 346 K/uL (130-400); RED CELL DISTRIBUTION WIDTH CV 18.8 % (11.5-14.5); RED CELL DISTRIBUTION WIDTH SD 57.9 fL (36.4-46.3); WHITE BLOOD COUNT 6.76 K/uL (4.8-10.8)
[2018-01-18 06:52] LABS: CALCIUM 9.2 mg/dl (8.5-10.1); CREATININE 1.1 mg/dl (0.60-1.20); POTASSIUM 3.4 mmol/L (3.5-5.1)
[2018-01-18] MEDS: ALBUT/IPRATROP 3MG/0.5MG NEB 3 ML VIAL INH SCH ×2 (07:06→11:21)
[2018-01-18 07:07] VITALS: PULSE 80; O2SAT 94
[2018-01-18] MEDS: ARFORMOTEROL TART 15MCG/2ML VIAL INH SCH (07:07)
[2018-01-18] MEDS: BUDESONIDE 0.5 MG/2 ML VIAL (PULMICORT) INH SCH (07:07)
[2018-01-18 07:21] VITALS: BP 136/80; PULSE 79; TEMP 36.4; O2SAT 99
[2018-01-18] MEDS: SUCRALFATE 1 GM/10 ML UDC PO SCH ×2 (07:30→13:14)
[2018-01-18] MEDS: OXYCODONE/ACETAMINOPHEN 5-325 TAB PO PRN (07:30)
[2018-01-18] MEDS: NYSTATIN POWDER 15GM BTL EXT SCH ×2 (07:31→13:15)
[2018-01-18] MEDS: TIOTROPIUM BROMIDE 5 PUFF/90 MCG INH INH SCH (08:41)
[2018-01-18] MEDS: MAGNESIUM OXIDE 400 MG TAB PO SCH (08:42)
[2018-01-18] MEDS: PANTOprazole SOD 40 MG TAB PO SCH (08:43)
[2018-01-18] MEDS: DOCUSATE SODIUM/SENNA 50/8.6MG TAB PO SCH (08:43)
[2018-01-18] MEDS: ROFLUMILAST 500 MCG TAB PO SCH (08:43)
[2018-01-18] MEDS: METOPROLOL TARTRATE 25 MG TAB PO SCH (08:43)
[2018-01-18] MEDS: ATORVASTATIN 40 MG TAB PO SCH (08:44)
[2018-01-18] MEDS: POTASSIUM CHLORIDE 20 MEQ TABCR PO SCH (08:44)
[2018-01-18] MEDS: ESCITALOPRAM OXALATE 10 MG TAB PO SCH (08:45)
[2018-01-18] MEDS: CHOLECALCIFEROL 400 INTER.UNIT TAB PO SCH (08:45)
[2018-01-18] MEDS: THEOPHYLLINE 400MG CONTROLLED REL TAB PO SCH (08:45)
[2018-01-18] MEDS: BISACODYL 5 MG TABEC PO SCH (08:45)
[2018-01-18] MEDS: NYSTATIN SUSP 500,000 U/5 ML UDC PO SCH ×2 (08:46→13:00)
[2018-01-18] MEDS: POLYETHYLENE (MIRALAX) 17 GM PACK PO SCH (08:46)
[2018-01-18] MEDS ORDERED: SPIRONOLACTONE 100 MG TAB PO SCH (09:00)
[2018-01-18] MEDS: INSULIN ASPART 100 UNITS/ML 3 ML PEN SC SCH ×2 (09:25→13:17)
--- NOTE | 2018-01-18 09:27 | Nephrology Progress Note ---
Nephrology Progress Note Date of Service January 18, 2018. Chief Complaint Follow-up for hypokalemia and hypomagnesemia. Subjective Mini was seen and examined in her room this morning. Overall feeling well, no overnight events, denies any symptoms. Magnesium stable, but potassium remain low. Blood pressure well controlled. Review of Systems A complete review of systems was performed. Pertinent positives are noted above. All other systems are negative. Vital Signs Last 8 Hrs Date Time Temp Pulse Resp B/P (MAP) Pulse Ox O2 Delivery O2 Flow Rate FiO2 01/18/18 07:07 80 16 94 Nasal Cannula 2.0 01/17/18 23:40 94 Nasal Cannula 2.0 100 Last Recorded Weight Weight (Kilograms): 87.100 Physical Exam GENERAL: Elderly female, AAA x 3, pleasant, healthy-appearing, not in any distress. NECK: Supple, no JVD. RESPIRATORY: Normal breathing efforts, no accessory muscle use, clear to auscultation bilaterally, no wheezes or rales. CARDIOVASCULAR: S1, S2 normal, rate rhythm regular. EXTREMITY: No lower extremity edema NEURO: speech fluent. PSYCHIATRY: Normal mood and judgment Family History No pertient family history secondary to age Negative for hypokalemia or CKD Social History Drug Use: none Marital Status: Housing Status: lives alone Occupation: retired . Retired. Lives in [place], [place] Laboratory Results Past 24 Hours 01/18/18 05:50 01/18/18 05:50 Test 01/17/18 08:10 01/17/18 12:04 01/17/18 17:02 01/17/18 20:46 Bedside Glucose 91 mg/dl (70-90) 72 mg/dl (70-90) 122 mg/dl (70-90) 144 mg/dl (70-90) Test 01/18/18 05:50 Red Blood Count 3.81 M/uL (4.2-5.4) Mean Corpuscular Volume 83.7 fL (80-100) Mean Corpuscular Hemoglobin 26.0 pg (25-34) Mean Corpuscular Hemoglobin Concent 31.0 g/dl (32-36) RDW Standard Deviation 57.9 fL (36.4-46.3) RDW Coefficient of Variation 18.8 % (11.5-14.5) Mean Platelet Volume 8.0 fL (7.4-10.4) Anion Gap 4.0 mmol/L (3-11) Est Creatinine Clear Calc Drug Dose 47.7 ml/min Estimated GFR () 57.7 Estimated GFR (Non- 49.8 BUN/Creatinine Ratio 6.5 (10-20) Calcium Level 9.2 mg/dl (8.5-10.1) Magnesium Level 1.9 mg/dl (1.8-2.4) Allergies Coded Allergies: Rabies Vaccine (Verified Allergy, Severe, HIVES, 10/28/17) Ragweed (Verified Allergy, Unknown, UNKNOWN, 10/28/17) Tomato (Verified Allergy, Unknown, HIVES, 10/28/17) Medications Current Inpatient Medications Medications (Trade) Dose Ordered Sig/Lulú Route Start Time Stop Time Status Last Admin Dose Admin Al Hydrox/Mg Hydrox/Simethicone (Maalox Max Susp) 15 ml Q4H PRN PO 01/05/18 23:15 02/04/18 23:14 Magnesium Hydroxide (Milk Of Magnesia Susp) 30 ml Q12H PRN PO 01/05/18 23:15 02/04/18 23:14 Ondansetron HCl (Zofran Inj) 4 mg Q6H PRN IV 01/05/18 23:15 02/04/18 23:14 01/17/18 19:29 4 MG Polyethylene (Miralax Powder Packet) 17 gm DAILY PRN PO 01/05/18 23:15 02/04/18 23:14 Atorvastatin Calcium (Lipitor Tab) 80 mg DAILY PO 01/06/18 09:00 02/05/18 08:59 01/17/18 08:56 80 MG Cholecalciferol (Vitamin D Tab) 400 inter.unit QAM PO 01/06/18 09:00 02/05/18 08:59 01/17/18 08:56 400 INTER.UNIT Clonazepam (Klonopin Tab) 0.5 mg Q12H PRN PO 01/05/18 23:15 02/04/18 23:14 01/08/18 21:20 0.5 MG Escitalopram Oxalate (Lexapro Tab) 10 mg DAILY PO 01/06/18 09:00 02/05/18 08:59 01/17/18 08:56 10 MG Levothyroxine Sodium (Synthroid Tab) 25 mcg DAILYBB PO 01/06/18 06:00 02/05/18 05:59 01/18/18 05:26 25 MCG Metoprolol Tartrate (Lopressor Tab) 25 mg BID PO 01/06/18 09:00 02/05/18 08:59 01/17/18 21:06 25 MG Albuterol/ Ipratropium (Duoneb) 3 ml QIDR INH 01/06/18 08:00 02/05/18 07:59 01/17/18 15:18 3 ML Arformoterol Tartrate (Brovana 15MCG/ 2ML Neb Soln) 15 mcg BIDR INH 01/06/18 08:00 02/05/18 07:59 01/18/18 07:07 15 MCG Budesonide (Pulmicort Respules 0.5MG/ 2ML Neb Soln) 0.5 mg BIDR INH 01/06/18 08:00 02/05/18 07:59 01/18/18 07:07 0.5 MG Quetiapine Fumarate (seroQUEL TAB) 200 mg HS PO 01/06/18 21:00 02/05/18 20:59 01/17/18 21:05 200 MG Roflumilast (Daliresp Tab) 500 mcg DAILY PO 01/06/18 09:00 02/05/18 08:59 01/17/18 08:58 500 MCG Tiotropium Whiteside (Spiriva Handihaler Inhaler) 1 puff DAILY INH 01/06/18 09:00 02/05/18 08:59 01/17/18 08:54 1 PUFF Mirtazapine (Remeron Tab) 30 mg HS PO 01/06/18 21:00 02/05/18 20:59 01/17/18 21:05 30 MG Glucose (Glucose 40% Gel) 15-30 GRAMS 15 GRAMS... UD PRN PO 01/06/18 04:30 02/05/18 04:29 Glucose (Glucose Chew Tab) 4-8 Tablets 4 Tabl... UD PRN PO 01/06/18 04:30 02/05/18 04:29 Dextrose (Dextrose 50% 50ML Syringe) 25-50ML OF 50% DW IV FOR... UD PRN IV 01/06/18 04:30 02/05/18 04:29 Glucagon (Glucagon Inj) 1 mg UD PRN SQ 01/06/18 04:30 02/05/18 04:29 Montelukast Sodium (Singulair Tab) 10 mg HS PO 01/06/18 21:00 02/05/18 20:59 01/17/18 21:06 10 MG Theophylline (Uniphyl Controlled Rel 24hr Tab) 400 mg QAM PO 01/07/18 09:00 02/06/18 08:59 01/17/18 08:59 400 MG Pantoprazole Sodium (Protonix Tab) 40 mg BID PO 01/08/18 09:00 02/07/18 08:59 01/17/18 21:06 40 MG Nafcillin Sodium 2 gm/Dextrose 100 ml @ 100 mls/hr Q4H IV 01/08/18 12:00 01/18/18 11:59 01/18/18 04:21 100 MLS/HR Acetaminophen (Tylenol Tab) 650 mg Q6H PRN PO 01/08/18 19:30 02/07/18 19:29 Hydromorphone HCl (Dilaudid Inj) 1 mg Q3H PRN IV 01/08/18 19:30 01/22/18 19:29 Hydromorphone HCl (Dilaudid Inj) 1.5 mg Q3H PRN IV 01/08/18 19:30 01/22/18 19:29 01/09/18 14:40 1.5 MG Promethazine HCl 12.5 mg/Sodium Chloride 50.5 ml @ 202 mls/hr Q6H PRN IV 01/08/18 19:30 02/07/18 19:29 01/15/18 15:18 202 MLS/HR Metoclopramide HCl (Reglan Inj) 10 mg Q6H PRN IV 01/08/18 19:30 02/07/18 19:29 01/15/18 21:24 10 MG Lorazepam (Ativan Tab) 1 mg Q6H PRN PO 01/08/18 19:30 02/07/18 19:29 Polyethylene (Miralax Powder Packet) 17 gm DAILY PO 01/09/18 09:00 02/08/18 08:59 01/17/18 08:59 17 GM Magnesium Hydroxide (Milk Of Magnesia Susp) 30 ml DAILY PRN PO 01/08/18 19:30 02/07/18 19:29 Diphenhydramine HCl (Benadryl Cap) 25 mg Q6H PRN PO 01/08/18 19:30 02/07/18 19:29 01/10/18 01:49 25 MG Oxycodone/ Acetaminophen (Percocet 5-325mg Tab) 1 tab Q4H PRN PO 01/08/18 19:30 01/22/18 19:29 01/13/18 11:19 1 TAB Oxycodone/ Acetaminophen (Percocet 5-325mg Tab) 2 tab Q4H PRN PO 01/08/18 19:30 01/22/18 19:29 01/17/18 19:30 2 TAB Bisacodyl (Dulcolax Tab) 5 mg DAILY PO 01/11/18 09:00 02/08/18 05:59 01/17/18 08:56 5 MG Senna/Docusate Sodium (Senokot S Tab) 1 tab QAM PO 01/11/18 09:00 02/10/18 08:59 01/17/18 08:59 1 TAB Heparin Sodium (Porcine) (Heparin 10 Unit/ ml 5 ml Flush) 5 ml PRN PRN FLUSH 01/10/18 15:45 02/09/18 15:44 01/18/18 05:54 5 ML Albuterol Sulfate (Ventolin 0.083% 2.5MG/3ML Neb) 2.5 mg Q2H PRN INH 01/10/18 17:45 02/09/18 17:44 01/13/18 04:41 2.5 MG Insulin Aspart (novoLOG ASPART) SLIDING SCALE G... ACHS SC 01/11/18 12:00 02/10/18 11:59 01/17/18 18:03 1 UNITS Bisacodyl (Dulcolax Supp) 10 mg DAILY PRN [place] 01/11/18 15:30 02/10/18 15:29 Heparin Sodium (Porcine) (Heparin 10 Unit/ ml 5 ml Flush) 5 ml PRN PRN FLUSH 01/13/18 12:00 02/12/18 11:59 Magnesium Oxide (Mag-Ox Tab) 400 mg BID PO 01/13/18 21:00 02/12/18 20:59 01/17/18 21:06 400 MG Insulin Glargine (Lantus Solostar Pen) 8 units HS SC 01/13/18 21:00 02/12/18 20:59 01/17/18 20:59 8 UNITS Nystatin (Mycostatin Susp) 5 ml QID PO 01/14/18 17:00 01/24/18 16:59 01/17/18 13:20 5 ML Sucralfate (Carafate Susp) 1 gm ACHS PO 01/16/18 08:00 02/15/18 07:59 01/17/18 21:05 1 GM Potassium Chloride (Klor-Con Tab) 40 meq BID PO 01/16/18 21:00 02/15/18 20:59 01/17/18 21:06 40 MEQ Nystatin (Mycostatin Powder) 1 appln TID EXT 01/18/18 09:00 02/17/18 08:59 Spironolactone (Aldactone Tab) 100 mg QAM PO 01/18/18 09:00 02/15/18 08:59 UNV Impression (1) Hypokalemia (2) Hypomagnesemia (3) MSSA (methicillin susceptible Staphylococcus aureus) septicemia (4) Spinal abscess (5) Endocarditis (6) Septic thrombophlebitis (7) GI bleed (8) Diabetes At the time of admission Ms. Clemons was found to have hypomagnesemia and profound hypokalemia in the setting of metabolic alkalosis and normal blood pressure. 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 These medications complicate the picture. However, it appears now that she would benefit from skilled nursing Mg supplementation and use of an aldosterone antagonist or Amiloride. Fractional excretion of magnesium was 29 in the setting of hypomagnesemia suggestive of renal magnesium wasting. The normal urinary potassium in the setting of hypokalemia suggestive of renal wasting. 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 Recommendations --increase spironolactone to 100 mg daily, continue KCL 40 bid and Magnesium Oxide 400 mg po BID, No need for IV mag unless mg <1.2 --recheck Mg and PRP in am --please schedule put pt f/u with Dr. Hammond in 1 to 2 weeks after discharge Will sign off
--- NOTE | 2018-01-18 10:56 | Discharge Instructions ---
Discharge Instructions Date of Service January 18, 2018. Admission Reason for Admission: Gi Bleed, Nausea And Vomiting Discharge Discharge Diagnosis / Problem: Gi bleed nausea, and vomiting Discharge Goals Goal(s): Decrease discomfort, Improve function, Increase independence, Improve disease control Activity Recommendations Activity Level: Up Ad Porsha, Assistance Required Therapies: Physical Therapy, Occupational Therapy Lifting Limitations: no more than 25 pounds, gradually increase as tolerated Exercise/Sports Limitations: rest today, gradually increase as tolerated Shower/Bathe: no limitations (with assistance) . 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 - You will need 6-week course of IV rocephin for all infectious sources. Today (01/18/18) is day #9. - A PICC line was placed in your right upper arm during hospital stay for these antibiotics. - You will need cardiology follow up in 6 weeks. You underwent lumbar epidural abscess s/p laminectomy L2-S2; L2, L3, L4, L5, S1 and S2 laminectomy, foraminotomy, partial facetectomy. - Underwent evacuation of abscess/hematoma at various aspects of lumbar spine and had packing with gentamicin beads and closure over drain. - Continue pain medication with percocet every 4 hours as needed. - Follow up with Dr. Valverde after d/c within 10 days. Electrolyte abnormalities: - You had low potassium and low magnesium during hospital stay which were replaced with intravenous and oral supplements. - Nephrology was involved in your case and recommended you continue daily scheduled supplementation. - Follow up with nephrology within 2 weeks Nausea, RUQ pain, distended gall bladder on imaging - HIDA scan negative for acute cholecystitis as cause of ongoing GI symptoms. - Continue pantoprazole indefinitely and carafate x 10 more days Right common iliac and internal iliac vein Deep venous Thrombosis - s/p IVC filter by Dr. Matamoros this admission. - Ok with Dr. Valverde to resume systemic anticoagulation at this time.- Resume xarelto upon discharge. - Follow up with vascular surgery within 2 weeks. Appointments: Follow up with your Primary Care Provider within 1 week. Follow up with orthopedics within 10 days Follow up with cardiology within 6 weeks Follow up with nephrology within 2 weeks. Follow up with vascular within 2 weeks. Current Hospital Diet Patient's current hospital diet: Diabetes Type 2 Diet, Low Fiber Diet Discharge Diet Recommended Diet: Diabetes Type 2 Diet, Low Fiber Diet Procedures Procedures Performed: Laminectomy, decompression L2-S2, with washout of epidural abcess, application of stimulan beads Pending Studies Studies pending at discharge: no Laboratory Results Hemoglobin A1c Test 10/29/17 07:04 Range/Units Estimated Average Glucose 206 mg/dl Hemoglobin A1c 8.8 H 4.5-5.6 % Medical Emergencies . Who to Call and When: Medical Emergencies: If at any time you feel your situation is an emergency, please call 911 immediately. . Non-Emergent Contact Non-Emergency issues call your: Primary Care Provider Call Non-Emergent contact if: temperature is above 100.5, your pain is not controlled, your pain is worsening, your pain is unusual for you, your pain is concerning you, you have any medication questions other concerns with your health. Call 911 or go directly to the Emergency Department if you experience any of the following: Chest pain, chest tightness, shortness of breath, abdominal pain , lightheadedness, dizziness, gastrointestinal bleeding, or have any other concerns regarding your health. . Past History Medical & Surgical History: (1) MSSA (methicillin susceptible Staphylococcus aureus) septicemia (2) Spinal abscess (3) Nausea & vomiting (4) GI bleed (5) Endocarditis (6) CHF (congestive heart failure) (7) Septic thrombophlebitis (8) COPD (chronic obstructive pulmonary disease) (9) Acid reflux (10) Hypokalemia (11) Hypomagnesemia (12) GERD (gastroesophageal reflux disease) (13) Diabetes (14) KATHLEEN (generalized anxiety disorder) (15) Major depression, recurrent, full remission . "Provider Documentation" section prepared by Fouzia Olson. . Core Measure Problem Core Measures: None [place] Drug Monitoring Program Search Results: no issues identified
[2018-01-18] MEDS ORDERED: MGNO400 PO (11:01)
[2018-01-18] MEDS ORDERED: MCRK20 PO (11:01)
[2018-01-18] MEDS ORDERED: SPRN100 PO (11:01)
[2018-01-18 11:22] VITALS: PULSE 79; O2SAT 95
[2018-01-18] MEDS ORDERED: RCPAV2 INJ (11:25)
[2018-01-18] MEDS ORDERED: CRFUDL PO (11:25)
[2018-01-18] MEDS ORDERED: SENN8.6T7 PO (11:25)
[2018-01-18] MEDS ORDERED: MRLP17 PO (11:25)
[2018-01-18] MEDS ORDERED: MOMLX PO (11:25)
[2018-01-18] MEDS ORDERED: PRT40 PO (11:25)
[2018-01-18] MEDS ORDERED: DLC5 PO (11:25)
[2018-01-18] MEDS ORDERED: DLCS PR (11:25)
[2018-01-18] MEDS ORDERED: OXYC-57 PO (11:52)
[2018-01-18] MEDS ORDERED: ATV1 PO (11:52)
[2018-01-18] MEDS ORDERED: INSDGIPEN SC (12:18)
[2018-01-18 12:43] VITALS: BP 136/80; PULSE 79; TEMP 36.4; O2SAT 95
--- NOTE | 2018-01-18 15:37 | Discharge Summary ---
Discharge Summary Date of Service January 18, 2018. Discharge Summary Admission Date: Jan 06, 2018 at 00:01 Discharge Date: January 18, 2018 Discharge Disposition: Rehab ([facility]) Principal Diagnosis: MSSA septicemia 2nd to suspected AV endocarditis, S. aureus lumbar abscess Problems/Secondary Diagnoses: Staph aureus (MSSA) septicemia 2nd to suspected aortic valve endocarditis and staph aureus lumbar epidural abscess lumbar epidural abscess s/p laminectomy L2-S2; L2, L3, L4, L5, S1 and S2 laminectomy, foraminotomy, partial facetectomy. 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 Matamoros this admission - on xarelto Acute synovitis of left thumb - was likely septic in origin from her bacteremia/ endocarditis. resolved. Acute/chronic systolic/diastolic CHF - resolved. Hypothyroidism - cont synthroid. GERD with esophagitis - PPI twice daily. Carafate x 10-14 days. COPD - patient reports breathing is at baseline; cont all home inhalers, theophylline, as well as duonebs. h/o ovarian cancer - noted. T2DM - controlled. Lantus 8 units HS. h/o PEs Ileus Candidal rash groin - nystatin powder. Immunizations: Have You Had Influenza Vaccine: Yes History of Tetanus Vaccine?: Yes History of Pneumococcal: Yes History of Hepatitis B Vaccine: Unknown Procedures: ABDOMINAL ULTRASOUND, RIGHT UPPER QUADRANT 01/07/18 IMPRESSION: 1. The gallbladder is mildly distended and partially filled with sludge. No gallbladder wall thickening. 2. Hepatic steatosis. LUMBAR SPINE MRI WITH AND WITHOUT CONTRAST 01/07/18 IMPRESSION: 1. There is a 2.4 x 1.2 x 0.8 cm peripherally enhancing fluid collection within the right posterior epidural space spanning the S1 and S2 levels. This is consistent with a epidural abscess. This results in mass effect along the right side of the sacral canal with severe sacral canal narrowing. There is also mass effect along the right S1-S2 nerve root at the neural foramen resulting in severe compression, likely by the suspected epidural abscess. 2. There is abnormal enhancement within the presacral space which extends into the right piriformis muscle. There is abnormal enhancement within the right common iliac and internal iliac veins consistent with enhancing thrombus in the setting of a septic thrombophlebitis. 3. Abnormal appearance of the cauda equina which demonstrates small amount of mass effect posteriorly at the from the L2-L3 disc space level and extending inferiorly to the L4 level. However, there is no definite evidence for epidural abscess identified at this location. Therefore, this could represent clumping of nerve roots in the setting of an arachnoiditis. However, given the epidural abscess within the sacral canal, a developing abscess cannot be excluded. 4. Abnormal epidural enhancement extending from the L2 through the sacrum consistent with a meningitis. 5. Abnormal enhancement along the right erector spinae muscles also from the L2 level through the sacrum. There is a small peripheral enhancing fluid collection inferior to the right L5-S1 facet which measures 1.7 x 1.0 cm. This is consistent with a small soft tissue abscess. 6. These findings were discussed with Dr. Armstrong at 8:25 AM on 01/08/2018. INTRAOPERATIVE RADIOGRAPHS 01/08/18 CLINICAL HISTORY: L2-S1 laminectomy. FINDINGS: 2 spot fluoroscopic views of the lumbar spine are presented. Surgical probes project posteriorly in the mid to lower lumbar region. Multilevel laminectomy is noted. An IVC filter is in place. IMPRESSION: Intraoperative images of the lumbar spine as above. See operative report for detailed findings. CXR 01/11/18 IMPRESSION: 1. Appropriately positioned right internal jugular Mediport. No pneumothorax. 2. Minimal bibasilar atelectasis suggested. ABDOMEN 2VIEW W/PA CHEST RTN 01/14/18 IMPRESSION: 1. Nonobstructive bowel gas pattern without pneumoperitoneum identified. 2. Mildly prominent nondilated loops of gas-filled small bowel within the left midabdomen suggest ileus. 3. No acute process of the chest. HEPATOBILIARY HIDA IMAGING 01/15/18 IMPRESSION: 1. No scintigraphic evidence for acute cholecystitis or common bile duct obstruction. 2. Apparent intraluminal filling defect near the fundal gallbladder, possibly secondary to gallbladder sludge or polyp KUB 01/16/18 IMPRESSION: 1. Mild diffuse gaseous distention of bowel. This could be normal or represent a mild ileus. No evidence of obstruction or gross free air. Consultations: Nephrology Cardiology Vascular surgery Infectious disease Orthopedics Gastroenterology Medication Reconciliation New Medications: Ceftriaxone Sod (Ceftriaxone Sodium) 2 Gm Inj 2 GM INJ DAILY for 33 Days, #33 DOSE Finish abx on 02/20/18. Bisacodyl (Bisac-Evac) 10 Mg Supp 10 MG DC DAILY PRN for Constipation for 30 Days, #30 SUPP Bisacodyl (Bisacodyl EC) 5 Mg Tabec 5 MG PO DAILY for 30 Days, #30 TAB Insulin Glargine (Lantus Solostar) 100 Unit/Ml Inj 8 UNITS SC HS for 30 Days Lorazepam (Lorazepam) 1 Mg Tab 1 MG PO Q6H PRN for Anxiety for 14 Days, #56 TAB Magnesium Hydroxide (Milk of Magnesia) 30 Ml Susp 30 ML PO DAILY PRN for Constipation for 30 Days, #30 DOSE Magnesium Oxide (Magnesium-Oxide) 400 Mg Tab 400 MG PO BID for 30 Days, #60 TAB Oxycodone/Acetaminophen 5MG/325MG (Percocet 5MG/325MG) Tab 1-2 TAB PO Q4H PRN for Severe Pain (pain rating 7-10) for 14 Days, #90 TAB PAIN Pantoprazole (Pantoprazole Sodium) 40 Mg Tab 40 MG PO BID for 30 Days, #60 TAB Polyethylene (Miralax) 17 Gm Pow 17 GM PO DAILY PRN for Constipation for 30 Days, #30 DOSE Potassium Chloride (Klor-Con M20) 20 Meq Tabcr 40 MEQ PO BID for 30 Days, #120 TABS Sennosides-Docusate Sodium (Senokot S) 1 Tab Tab 1 TAB PO QAM for 30 Days, #30 TAB Spironolactone (Spironolactone) 100 Mg Tab 100 MG PO QAM for 30 Days, #30 TAB Sucralfate (Sucralfate) 1 Gm/10 Ml Susp 1 GM PO ACHS for 10 Days, #40 DOSE Continued Medications: Albuterol Sulf (Albuterol Sulfate) 2.5 Mg/3 Ml Nebu 2.5 MG NEB Q4H PRN for SOB/Wheezing Arformoterol Tartrate (Brovana) 15 Mcg/2 Ml Neb 15 MCG NEB BID, INHALER Aspirin (Aspirin Ec) 81 Mg Tab 81 MG PO DAILY Atorvastatin (Lipitor) 40 Mg Tab 80 MG PO DAILY, TAB Budesonide (Pulmicort Respules 0.5MG/2ML) 0.5 Mg/2 Ml Nebu 0.5 MG NEB BID, EA Calcium Carbonate-Cholecalcife (Oyster Shell Calcium + D) 1 Tab Tab 1 TAB PO QAM Cholecalciferol (Vitamin D 400 Iu) 400 Unit Cap 400 INTER.UNIT PO QAM Clonazepam (Clonazepam) 0.5 Mg Tab 0.5 MG PO Q12H PRN for Anxiety/Agitation Escitalopram Oxalate (Lexapro) 20 Mg Tab 10 MG PO DAILY for 30 Days, #15 TAB Fluticasone Propionate (Nasal) (Flonase Allergy Relief) 50 Mcg/Act Spr 1 SPRAY NANCY DAILY PRN for Nausea Home O2 Therapy (Oxygen) Gas 2-3 LITERS NA CONTINOUS, BTL Ipratropium-Albuterol (Duoneb) 3 Ml Nebu 1 TREATMENT INH Q4WA PRN for SOB/Wheezing, INHA Levothyroxine Sodium (Synthroid) 25 Mcg Tab 25 MCG PO QAM Metformin Hcl (Glucophage) 1,000 Mg Tab 1000 MG PO BID, TAB Metoprolol Tartrate (Lopressor) 25 Mg Tab 25 MG PO BID for 30 Days, #60 TAB Mirtazapine (Mirtazapine) 15 Mg Tab 30 MG PO HS, #16 TAB Montelukast Sodium (Singulair) 10 Mg Tab 10 MG PO HS Multiple Vitamins W/ Iron (Multi Vitamin with Iron) 1 Tab Tab 1 TAB PO QAM Quetiapine Fumarate (Seroquel) 200 Mg Tab 200 MG PO HS, #16 TAB Ranitidine (Zantac) 150 Mg Tab 150 MG PO DAILY, TAB Rivaroxaban (Xarelto) 20 Mg Tab 20 MG PO QAM, TAB Roflumilast (Daliresp) 500 Mcg Tab 500 MCG PO DAILY for 30 Days, #30 TAB Theophylline (Rohit-24) 400 Mg Capcr 400 MG PO QAM Tiotropium [place] (Spiriva Handihaler) 30 Puff/540 Mcg Aerp 1 CAP INH DAILY Discontinued Medications: Insulin Human NPH (Humulin N) 100 Units/Ml Susp 20 UNITS SC QAM Meloxicam (Meloxicam) 7.5 Mg Tab 7.5 MG PO DAILY Polyethylene Glycol 3350 (Miralax) 1 Pow Pow 17 GM PO DAILY PRN for Constipation, GM Potassium Chloride (Klor-Con M20) 20 Meq Tabcr 20 MEQ PO BID Prednisone (Prednisone) Unknown Strength Tab 1 TAB PO DAILY, TAB Discharge Exam The patient was seen and examined this morning. Patient reports feeling much improved compared to previously. She is currently undergoing a nebulizer treatment, and feels her breathing is back about back to baseline. She is anticipating discharge to [facility] today. The patient reports feeling sore in her lower back after surgical procedure but no acute pains. No numbness or tingling going down into either leg. Patient denies any fevers, chills or sweats ROS Constitutional: No fever, sweats or chills Eyes: No diplopia, no worsening or blurred vision ENT: normal hearing, + occasionally feels that she has food stuck, improved since beginning of hospital stay Respiratory: No cough, sputum, dyspnea at rest. Minimal dyspnea on exertion Cardiovascular: No chest pain, tightness or palpitations Abdomen: No pain, nausea, vomiting, diarrhea or constipation Musculoskeletal: No joint pain, calf pain, swelling Back: Lumbar soreness Neurologic: No weakness, numbness/tingling, or balance problems Psychiatric: No anxiety or depression Skin: No rash or itch PE: General: awake, alert, no apparent distress Head: Normocephalic, atraumatic ENT: PERRL, EOMI, no pharyngeal exudate, mucous membranes moist Chest: Clear to auscultation, currently receiving nebulizer treatment, no adventitious breath sounds Cardiac: Regular rate and rhythm, +soft systolic murmur, no JVD, normal peripheral pulses, good capillary refill Abdominal: NABS x 4 quadrants, soft, nontender to palpation, no rebound, guarding or tenderness Extremities: Normal inspection, trace peripheral edema BLE, no erythema, calfs nontender to palpation Psych: Depressed affect Neuro: AAO x 3, no motor deficits, speech is clear, no peripheral sensory deficits Hospital Course 72yo female with: 1. staph aureus (MSSA) septicemia 2nd to suspected aortic valve endocarditis and staph aureus lumbar epidural abscess - improved/septicemia resolved. most recent blood cultures now negative. will need 6-week course of IV nafcillin which was continued during hospital stay , will transition to Rocephin 2 g IV daily for all infectious sources. Today is day #. appreciate ID input. PICC line, RUE, is in place. 2. lumbar epidural abscess s/p laminectomy L2-S2; L2, L3, L4, L5, S1 and S2 laminectomy, foraminotomy, partial facetectomy. s/p Evacuation of abscess/hematoma at various aspects of lumbar spine. s/p Packing with gentamicin beads and closure over drain. Doing well from surgical standpoint. Needs to see Dr. Valverde after d/c within 10 days. 3. acute blood loss anemia - initially 2nd to posterior nosebleed vs esophagitis, then had additional blood loss following #2. s/p EGD this admission w/ esophagitis only. s/p 4 units PRBCs this stay. H/H stable since the pRBC infusion. CBC stable 4. hypokalemia and hypomagnesemia - these were quite severe at time of admission in December. And, despite copious replacement, it has been challenging to keep these levels wnl. Low-dose diuretics have complicated the issue. Reirl-nza-yvyu her electrolyte issues have been ongoing for years. - Started aldactone after renin/jayesh levels were drawn. - Nephrology consult and recs appreciated. - Urine mag levels c/w renal wasting. - K normal today. -Magnesium acceptable today - Cont PO K and mag supplementation. 5. nausea, RUQ pain, distended gall bladder on imaging - HIDA scan negative for acute cholecystitis as cause of ongoing GI symptoms. - cont PPI bid indefinitely and carafate 10 days - many of her symptoms are likely from the ileus and esophagitis. 6. probable aortic valve endocarditis - will need cardiology follow-up and 6-week course of IV antibiotic therapy. 7. 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 Matamoros this admission. - Ok with Dr. Valverde to resume systemic anticoagulation at this time. - Resume Xarelto at time of discharge. 8. acute synovitis of left thumb - was likely septic in origin from her bacteremia/endocarditis. resolved. 9. acute/chronic systolic/diastolic CHF - resolved. 10. hypothyroidism - cont synthroid. 11. GERD with esophagitis - PPI twice daily. Carafate x 10 days. 12. COPD - patient reports breathing is at baseline; cont all home inhalers, theophylline , as well as duonebs. 13. h/o ovarian cancer - noted. 14. T2DM - controlled. - Lantus 8 units HS during hospital stay, resume outpatient regimen at time of discharge. 15. DVT proph - SCDs. 16. h/o PEs - noted. See #7 above. 17. ileus - finally resolved with copious stool and flatus along with less abdominal bloating. Advance diet to low fiber, diabetic diet. 18. candidal rash groin - nystatin powder. DVT PPX: Xarelto CODE STATUS: Full code Disposition: Patient discharged to [facility]. Total Time Spent: Greater than 30 minutes This includes examination of the patient, discharge planning, medication reconciliation, and communication with other providers. Discharge Instructions Please refer to the electronic Patient Visit Report (Discharge Instructions) for additional information. Follow-Up Follow up with your Primary Care Provider within 1 week. Follow up with orthopedics within 10 days Follow up with cardiology within 6 weeks Follow up with nephrology within 2 weeks. Follow up with vascular within 2 weeks. Additional Copies To Anil Rodriguez D.O.
== END 2018-01-18 14:51 | DRG 853 ==
LOC: EDBD 21:15 → C.EDA 21:17 → C.2T 01-06 00:01 → EDBEDREQ 01-06 00:05 → ENRESERV 01-06 00:55 → C.MSN 01-10 15:26
PROVIDERS: ADMIT Internal Medicine; ATTEND Family Medicine
PROC: 06HM33Z Insertion of Infusion Device into Right Femoral Vein, Percutaneous Approach (ICD-10-PCS; 2018-01-06)
PROC: 0DJ08ZZ Inspection of Upper Intestinal Tract, Via Natural or Artificial Opening Endoscopic (ICD-10-PCS; 2018-01-07)
PROC: 01NB0ZZ Release Lumbar Nerve, Open Approach (ICD-10-PCS; principal; 2018-01-08 09:00)
PROC: 009U0ZX Drainage of Spinal Canal, Open Approach, Diagnostic (ICD-10-PCS; principal; 2018-01-08 09:00)
PROC: 3E0R329 Introduction of Other Anti-infective into Spinal Canal, Percutaneous Approach (ICD-10-PCS; principal; 2018-01-08 09:00)
PROC: 06H03DZ Insertion of Intraluminal Device into Inferior Vena Cava, Percutaneous Approach (ICD-10-PCS; 2018-01-08 09:00)
PROC: 02HV33Z Insertion of Infusion Device into Superior Vena Cava, Percutaneous Approach (ICD-10-PCS; 2018-01-13)
DX: A41.01 Sepsis due to Methicillin susceptible Staphylococcus aureus (principal); I33.0 Acute and subacute infective endocarditis; G06.1 Intraspinal abscess and granuloma; I21.4 Non-ST elevation (NSTEMI) myocardial infarction; I50.43 Acute on chronic combined systolic (congestive) and diastolic (congestive) heart failure; D62 Acute posthemorrhagic anemia; K92.0 Hematemesis; I82.421 Acute embolism and thrombosis of right iliac vein; K56.7 Ileus, unspecified; J96.11 Chronic respiratory failure with hypoxia; I50.32 Chronic diastolic (congestive) heart failure; D68.32 Hemorrhagic disorder due to extrinsic circulating anticoagulants; T45.515A Adverse effect of anticoagulants, initial encounter; E86.0 Dehydration; E87.6 Hypokalemia; E83.42 Hypomagnesemia; K21.0 Gastro-esophageal reflux disease with esophagitis; K82.8 Other specified diseases of gallbladder; M65.141 Other infective (teno)synovitis, right hand; B37.2 Candidiasis of skin and nail; E11.65 Type 2 diabetes mellitus with hyperglycemia; E11.9 Type 2 diabetes mellitus without complications; J44.9 Chronic obstructive pulmonary disease, unspecified; E03.9 Hypothyroidism, unspecified; F41.1 Generalized anxiety disorder; F32.9 Major depressive disorder, single episode, unspecified; M19.90 Unspecified osteoarthritis, unspecified site; Z79.899 Other long term (current) drug therapy; Z79.4 Long term (current) use of insulin; Z79.82 Long term (current) use of aspirin; Z79.01 Long term (current) use of anticoagulants; Z79.1 Long term (current) use of non-steroidal anti-inflammatories (NSAID); Z79.52 Long term (current) use of systemic steroids; Z99.81 Dependence on supplemental oxygen; Z86.711 Personal history of pulmonary embolism; Z85.43 Personal history of malignant neoplasm of ovary; Z88.7 Allergy status to serum and vaccine; Z91.018 Allergy to other foods; Z91.048 Other nonmedicinal substance allergy status; Z82.49 Family history of ischemic heart disease and other diseases of the circulatory system; Z82.3 Family history of stroke

== ENCOUNTER 2019-02-19 23:02 | Inpatient (IN) ==
--- OUTSIDE RECORDS SUMMARY | 2019-02-19 23:05 | External Medical Summary | Continuity of Care Document ---
:1945 Author Name Mateo Colvin, Provider Address Unavailable Unavailable , Care Team Providers Name Role Phone Unavailable Unavailable Unavailable AILEEN GIBBS Unavailable Unavailable Unavailable Unavailable Unavailable Problems Depression (311) (F32.9) GERD (gastroesophageal reflux disease) (530.81) (K21.9) Chronic respiratory failure (518.83) (J96.10) COPD (chronic obstructive pulmonary disease) (496) (J44.9) CHF (congestive heart failure) (428.0) (I50.9) Constipation (564.00) (K59.00) Anxiety (300.00) (F41.9) Allergic rhinitis (477.9) (J30.9) Hypothyroidism (244.9) (E03.9) Arthritis (716.90) (M19.90) Acute esophagitis (530.12) (K20.9) DM type 2 (diabetes mellitus, type 2) (250.00) (E11.9) Bacterial endocarditis (421.0) (I33.0) Hypokalemia (276.8) (E87.6) Hypomagnesemia (275.2) (E83.42) Allergies and Adverse Reactions Rabies Vaccines (Allergy) Reaction: Hives Ragweed (Allergy) Tomato (Allergy) Reaction: Hives Medications Daliresp 500 MCG Oral Tablet; Take 1 tablet daily , M.D. Refills: 0 Albuterol Sulfate (2.5 MG/3ML) 0.083% In halation Nebulization Solution; USE ONE VIAL IN NEBULIZER EVERY 4 HOURS NEEDED , M.D. Refills: 3 Flonase Allergy Relief 50 MCG/ACT Nasal Suspension; USE 1 SPRAY IN EACH NOSTRIL ONCE DAILY. , M.D. 9.9 ML Bottle Refills: 0 Levothyroxine Sodium 25 MCG Oral Tablet; TAKE 1 TABLET DAILY . , M.D. Refills: 0 Mirtazapine 15 MG Oral Tablet; TAKE 2 TABLETS BY MOUTH ONCE DAILY AT BEDTIME , M.D. Refills: 0 Montelukast Sodium 10 MG Oral Tablet; TAKE 1 TABLET DAILY. , M.D. 30 Tablet Bottle Refills: 0 Potassium Chloride 20 MEQ TBCR; take 2 tablets by mouth twic e daily , M.D. Refills: 0 SEROquel 100 MG Oral Tablet; TAKE 2 TABLETS BY MOUTH O NCE DAILY AT BEDTIME , M.D. Refills: 0 Spiriva HandiHaler 18 MCG Inhalation Cap greg; INHALE CONTENTS OF 1 CAPSULE ONCE DAILY. , M.D. Quantity: 30 Refills: 0 Xarelto 20 MG Oral Tablet; TAKE 1 TABLET BY MOUTH EVERY DAY , M.D. Start: 21-Aug-2017 Quantity: 1 Refills: 1 Escitalopram Oxalate 10 MG Oral Tablet; take 1 tablet by mouth once daily , M.D. Refills: 0 Rohit-24 400 MG CP12; TAKE 1 CAP BY MOUTH EVERY MORNING. , M. D. Refills: 0 Atorvastatin Calcium 80 MG Oral Tablet; TAKE 1 TABLET AT BED TIME. , M.D. Start: 16-Feb-2018 Refills: 0 Ipratropium-Albuterol 0.5-2.5 (3) MG/3ML Inhalation Solution; ADMINISTER ONE 3 ML VIAL 4 TIMES DAILY VIA NEBULIZATION. , M.D. Start: Quantity: 180 Refills: 5 Ferrous Sulfate 325 (65 Fe) MG Oral Tabl et; TAKE 1 TABLET BY MOUTH TWICE DAILY WITH MEALS , M.D. Start: 16-Feb-2018 Quantity: 60 Refills: 4 Magnesium 400 MG Oral Tablet; TAKE 1 TABLET BY MOUTH TWICE D Marii RED Start: 16-Feb-2018 Refills: 0 Spironolactone 100 MG Oral Tablet; take 1 tablet by mouth on ce daily , M.D. Start: 16-Feb-2018 Refills: 0 Sucralfate 1 GM Oral Tablet; CRUSH 1 TAB LET AND MIX WITH 15ML OF WATER BEFORE MEALS AND AT BEDTIME , M.D. Start: 16-Feb-2018 Quantity: 40 Refills: 0 Aspirin EC 81 MG Oral Tablet Delayed Release; take 1 t ablet by mouth once daily , M.D. Refills: 0 LORazepam 1 MG Oral Tablet; TAKE 1 TABLET BY MOUTH THR EE TIMES DAILY NEEDED , M.D. Refills: 0 metFORMIN HCl ER 500 MG Oral Tablet Exte nded Release 24 Hour; TAKE 1 TABLET BY MOUTH TWICE DAILY , M.D. Refills: 0 Metoprolol Tartrate 25 MG Oral Tablet; TAKE 1 TABLET B Y MOUTH TWICE DAILY , M.D. Refills: 0 Vitamin D 1000 UNIT Oral Tablet; take 1 tablet by mouth once daily , M.D. Refills: 0 Acetaminophen 500 MG Oral Tablet; TAKE 1 TABLET EVERY 4 TO 6 HOURS NEEDED. , M.D. Start: 16-Feb-2018 Refills: 0 Pantoprazole Sodium 40 MG Oral Tablet De layed Release; TAKE 1 TABLET TWICE DAILY 30 MINUTES BEFORE BREAKFAST AND DINNER. , M.D. Start: 018 Quantity: 60 Refills: 3 Ondansetron 4 MG Oral Tablet Disintegrating , M.D. Start: 16-Feb-2018 Refills: 0 oxyCODONE-Acetaminophen 5-325 MG Oral Tablet , M.D. Start: 16-Feb-2018 Refills: 0 Calcium 500+D 500-200 MG-UNIT Oral Tablet; take 1 tabl et by mouth once daily , M.D. Refills: 0 Lidoderm PTCH , M.D. Refills: 0 Perforomist 20 MCG/2ML Inhalation Nebuli zation Solution; USE 1 VIAL IN NEBULIZER EVERY 12 HOURS. , M.D. 30 x 2 ML Plas Cont Refills: 0 Lantus 100 UNIT/ML Subcutaneous Solution; INJECT SUBCU TANEOUSLY DIRECTED. , M.DAriela Start: 16-Feb-2018 Refills: 0 10 ML Vial Famotidine 20 MG Oral Tablet; TAKE 1 TABLET DAILY DIRECTE DMarii Titus Start: 16-Feb-2018 Refills: 0 Budesonide 0.5 MG/2ML Inhalation Suspens ion; USE 1 UNIT DOSE VIA NEBULIZER TWO TIMES A DAY , M.D. Start: 16-Feb-2018 Refills: 0 5 x 2 ML Plas Cont Procedures History of hysterectomy total abdominal with removal of both Status: Completed ovaries History of inferior vena cava filter placement Status: Completed Immunizations Immunizations not documented Social History - Smoking Status Former smoker Plan of Treatment Planned Observations Planned Goals not documented Results No Known Results Results not documented Encounters Appointment; Niyah Pena M.D. 30-Mar-2018 13:00 Encounter Diagnosis: Problem not documented Appointment; Sadaf Ribeiro PA-C 23-Feb-2018 14:00 Encounter Diagnosis: Problem not documented Appointment; Janey Thompson PA-C 16-Feb-2018 14:30 Encounter Diagnosis: Problem not documented Appointment; Manuel Hammond M.D. 12-Feb-2018 14:00 Encounter Diagnosis: Problem not documented Appointment; Isabel Perez PA-C 21-Aug-2017 10:00 Encounter Diagnosis: Problem not documented
[2019-02-19] MEDS ORDERED: ALBUT/IPRATROP 3MG/0.5MG NEB 3 ML VIAL NEB STA (23:28)
[2019-02-19] MEDS ORDERED: MAGNESIUM SULFATE / D5W 1 GM/100 ML BAG IV ONE (23:28)
[2019-02-19 23:51] LABS: Basophils # (auto) 0.02 K/uL (0-0.2); Basophils % (auto) 0.3 %; Eosinophils # (auto) 0.26 K/uL (0-0.5); Eosinophils % (auto) 3.6 %; Hematocrit (blood only) 26.6 % (37-47); Hemoglobin 8.2 g/dL (12.0-16.0); Immature Granulocytes # (auto) 0.02 K/uL (0.00-0.02); Immature Granulocytes % (auto) 0.3 %; Lymphocytes # (auto) 2.13 K/uL (1.2-3.4); Lymphocytes % (auto) 29.2 %; Mean Corpuscular Hgb Conc 30.8 g/dL (32-36); Mean Corpuscular Volume 78.5 fL (80-100); Mean Platelet Volume 8.7 fL (7.4-10.4); Monocytes # (auto) 0.77 K/uL (0.11-0.59); Monocytes % (auto) 10.5 %; Neutrophils % (auto) 56.1 %; Platelet Count 249 K/uL (130-400); RDW Coefficient of Variation 15.3 % (11.5-14.5); RDW Standard Deviation 44.3 fL (36.4-46.3); Red Blood Count 3.39 M/uL (4.2-5.4)
[2019-02-20 00:24] LABS: Albumin Globulin Ratio 0.9 (0.9-2); Albumin Level 2.9 gm/dl (3.4-5.0); BUN Creatinine Ratio 17.1 (10-20); Bilirubin,Total 0.2 mg/dl (0.2-1); Calcium 8.4 mg/dl (8.5-10.1); Creatinine Clr Calc Pharmacy 56.8 ml/min; Est GFR (African American) 68.4; Globulin 3.2 gm/dl (2.5-4.0); Magnesium 1.5 mg/dl (1.8-2.4); Potassium 3.7 mmol/L (3.5-5.1); Total Protein 6.1 gm/dl (6.4-8.2); Troponin I 0.03 ng/ml (0-0.045)
[2019-02-20] MEDS ORDERED: methylPREDNISolone 80 MG in SYRINGE 0 ML IV STA (00:44)
[2019-02-20] MEDS ORDERED: methylPREDNISolone 125 MG/2 ML VIAL ONE (00:46)
[2019-02-20] MEDS ORDERED: CEFEPIME 2,000 MG/20 ML VIAL IV STA (00:50)
[2019-02-20] MEDS ORDERED: FUROSEMIDE 20 MG in SYRINGE 0 ML IV STA (01:26)
[2019-02-20] MEDS ORDERED: ALBUT/IPRATROP 3MG/0.5MG NEB 3 ML VIAL NEB STA (01:26)
[2019-02-20] MEDS ORDERED: INSULIN HUMAN REGULAR PER UNIT 8 UNITS in SYRINGE 0 ML SC STA (01:28)
[2019-02-20] MEDS ORDERED: FUROSEMIDE 40 MG/4 ML VIAL IV ONE (01:31)
[2019-02-20] MEDS ORDERED: NovoLIN-R INSULIN PER UNIT CHARGE ONE (01:32)
[2019-02-20 02:13] LABS: Appearance Urine Clear (Clear); Bilirubin Urine Negative (Negative); Blood Urine Negative (Negative); Color Urine Yellow; Glucose Urine UA 3+ (Negative); Ketones Urine Negative (Negative); Leukocyte Esterase Urine Negative (Negative); Nitrite Urine Negative (Negative); Protein Urine Negative (Negative); Specific Gravity Urine 1.022 (1.000-1.030); Urobilinogen Urine Negative (Negative)
--- NOTE | 2019-02-20 04:48 | History & Physical Report ---
Date of Service February 20, 2019 Assessment & Plan (1) SOB (shortness of breath): One week of progressive SOB, cough and wheeze. Seems to be secondary to COPD exacerbation with some mild volume overload -Admit to medical floor -Supplemental O2 as needed -Lasix 20mg IV BID -Daily weights -Strict I/Os -See COPD below Present on Admission?: Yes (2) COPD exacerbation: Patient with poor air exchange, diffuse wheezing -DuoNebs q 4 hours -Albuterol q 2 hours -Prednisone PO taper 60mg -Cefepime -Mucinex -Continue Theophylline -Continue Singulair -Continue Foflumilast Present on Admission?: Yes (3) Anemia: H/H = 8.2/26.6 which is slightly down from prior values. No active bleed -Continue to monitor -Transfuse for Hg < 7, active bleed or symptomatic anemia Present on Admission?: Yes (4) Septic thrombophlebitis: Past history -Continue Rivaroxaban Present on Admission?: Yes (5) QT prolongation: Noted -Avoid QT prolonging agents Present on Admission?: Yes (6) KATHLEEN (generalized anxiety disorder): Chronic -Continue home agents, Escitalopram -Continue Seroquel -Continue Remerol (7) GERD (gastroesophageal reflux disease): Continue Sucralfate (8) Diabetes: Elevated blood sugar at present -Continue Lantus 8u qHS, ISS -CC diet as tolerated (9) Hypothyroid: Chronic -Continue Synthroid (10) Hypertension: Stable -Continue Spironlactone -Continue Metoprolol -Continue to monitor F/E/N - Diuresis as above, Lasix 20mg IV BID, monitor electrolytes and replete as needed, CC/heart healthy/Low Na diet as tolerated, continue PO KCL and Magnesium History of Present Illness Chief Complaint: SOB Primary Care Provider: Anil Schwabdakota Clemons is a pleasant 73yo C female with history of CHF, COPD on 2L of home oxygen, GERD, DM, KATHLEEN/Depression presenting with one week of progressive SOB. Reports increase in cough productive for yellow/brown sputum as well as wheeze. Subjective fevers and chills as well as stuffy nose and sinus co ngestion. Additionally she complains of worsening LE edema as well as orthopnea. Denies rapid weight gain but has gained appx 25# in the last year. She has occasional rib pain, severe and intermittent, non-exertional and non- pleuritic. She has been taking her inhalers q 4 hours at home with minimal improvement ER Course: Solumedrol, Magnesium, Insulin 8u, Lasix 20mg, Cefepime, Albuterol Allergies Allergy/AdvReac Type Severity Reaction Status Date / Time rabies vaccine, duck-embryo Allergy Severe HIVES Verified 02/19/19 23:53 ragweed pollen Allergy Unknown UNKNOWN Verified 02/19/19 23:53 tomato Allergy Unknown HIVES Verified 02/19/19 23:53 Home Medications Home Medications Medication Instructions Recorded Confirmed Type acetaminophen 325 mg PO QID PRN 02/10/19 02/19/19 History atorvastatin 80 mg PO DAILY 02/10/19 02/19/19 History cholecalciferol (vitamin D3) 400 unit PO DAILY 02/10/19 02/19/19 History [Vitamin D3] escitalopram oxalate 15 mg PO DAILY 02/10/19 02/19/19 History famotidine 20 mg PO DAILY 02/10/19 02/19/19 History insulin glargine [Lantus Solostar 8 unit SUBCUT QPM 02/10/19 02/19/19 History U-100 Insulin] levothyroxine 25 mcg PO DAILY 02/10/19 02/19/19 History metformin 500 mg PO BID 02/10/19 02/19/19 History metoprolol succinate 25 mg PO BID 02/10/19 02/19/19 History mirtazapine 30 mg PO DAILY 02/10/19 02/19/19 History mirtazapine 30 mg PO HS 02/10/19 02/19/19 History montelukast 10 mg PO PM 02/10/19 02/19/19 History ondansetron HCl [Zofran] 4 mg PO Q8H PRN #20 tab 02/10/19 02/19/19 Rx pantoprazole 40 mg PO BID 02/10/19 02/19/19 History potassium chloride 20 meq PO DAILY 02/10/19 02/19/19 History quetiapine 200 mg PO DAILY 02/10/19 02/19/19 History rivaroxaban [Xarelto] 20 mg PO DAILY 02/10/19 02/19/19 History roflumilast [Daliresp] 500 mcg PO DAILY 02/10/19 02/19/19 History spironolactone 50 mg PO BID 02/10/19 02/19/19 History sucralfate 1 g PO ACHS 02/10/19 02/19/19 History theophylline [Rohit-24] 400 mg PO DAILY 02/10/19 02/19/19 History magnesium oxide 400 mg PO BID 02/20/19 02/20/19 History Past Med/Surg History Medical History Vomiting and diarrhea (Acute) CHF (congestive heart failure) (Chronic) COPD (chronic obstructive pulmonary disease) (Chronic) Acid reflux (Chronic) Diabetes (Chronic) Acute respiratory failure with hypoxia (Acute) GERD (gastroesophageal reflux disease) (Chronic) KATHLEEN (generalized anxiety disorder) (Chronic) Major depression, recurrent, full remission (Chronic) Elevated troponin Endocarditis GI bleed Hypoxia (Resolved) MSSA (methicillin susceptible Staphylococcus aureus) septicemia Nausea & vomiting QT prolongation Septic thrombophlebitis Spinal abscess Syncope CHF (congestive heart failure) (Chronic) COPD (chronic obstructive pulmonary disease) (Chronic) Surgical History History of lumpectomy Family History Other Coronary heart disease Stroke Social History Preferred Language: Polish marital status: Single Current Living Situation: Alone Current Living Situation Comment: with caregiver current occupational status: retired Feels Safe at Home: Yes Smoking Status: Former smoker Review of Systems Review of Systems: All systems reviewed & are unremarkable except as noted in HPI & below Physical Exam Physical Exam: General: patient resting comfortably, NAD, non-toxic in appearance, AA&O x 4 Skin: warm, dry, intact, no rashes or lesions HEENT: NC/AT, PERRL, EOMI, anicteric sclera, conjunctiva without injection, external ear normal to inspection and nontender, nares patent, moist mucus membranes, dentition intact, no oropharyngeal lesions, neck supple, trachea midline, no LAD, no thyromegaly, no JVD Heart: +S1/S2, regular, no m/r/g Lungs: diminished air entry bilaterally, diffuse scattered wheezing Abd: +BS, soft, NT/ND, no masses/organomegaly/ascites Ext: warm, 2+ pulses in UE/LE bilaterally, no clubbing/cyanosis, 1+ pitting edema of bilateral LEs Neuro: nonfocal, patient AA&O x 4, speech intact, no facial droop, moving all extremities on command with equal strength 5/5 Results & Data Vital Signs (Past 12 Hours) Vital Signs Temp Pulse Pulse Resp BP BP Pulse Ox 02/20/19 04:00 76 19 137/91 96 02/20/19 03:00 79 17 161/86 H 97 02/20/19 02:00 87 17 146/103 H 98 02/20/19 01:44 71 18 97 02/20/19 01:02 70 23 141/74 H 98 02/20/19 00:06 76 18 98 02/20/19 00:01 77 19 138/92 97 02/19/19 23:02 36.4 C L 75 22 135/96 98 Laboratory Results Lab Results 02/19/19 02/19/19 02/20/19 Range/Units 23:34 23:34 02:00 WBC 7.30 (4.8-10.8) K/uL RBC 3.39 L (4.2-5.4) M/uL Hgb 8.2 L (12.0-16.0) g/dL Hct 26.6 L (37-47) % MCV 78.5 L (80-100) fL MCH 24.2 L (25-34) pg MCHC 30.8 L (32-36) g/dL RDW Std Deviation 44.3 (36.4-46.3) fL RDW Coeff of Jame 15.3 H (11.5-14.5) % Plt Count 249 (130-400) K/uL MPV 8.7 (7.4-10.4) fL Immature Gran % (Auto) 0.3 % Neut % (Auto) 56.1 % Lymph % (Auto) 29.2 % [place] % (Auto) 10.5 % Eos % (Auto) 3.6 % Baso % (Auto) 0.3 % Immature Gran # (Auto) 0.02 (0.00-0.02) K/uL Neut # (Auto) 4.10 (1.4-6.5) K/uL Lymph # (Auto) 2.13 (1.2-3.4) K/uL [place] # (Auto) 0.77 H (0.11-0.59) K/uL Eos # (Auto) 0.26 (0-0.5) K/uL Baso # (Auto) 0.02 (0-0.2) K/uL Sodium 141 (136-145) mmol/L Potassium 3.7 (3.5-5.1) mmol/L Chloride 107 (98-107) mmol/L Carbon Dioxide 28 (21-32) mmol/L Anion Gap 6.0 (3-11) BUN 16 (7-18) mg/dl Creatinine 0.95 (0.6-1.2) mg/dl Est Cr Clr Drug Dosing 56.8 ml/min Est GFR ( Amer) 68.4 Est GFR (Non-Af Amer) 59.0 BUN/Creatinine Ratio 17.1 (10-20) Glucose 310 H* (70-99) mg/dl POC Glucose (70-99) Calcium 8.4 L (8.5-10.1) mg/dl Magnesium 1.5 L (1.8-2.4) mg/dl Total Bilirubin 0.2 (0.2-1) mg/dl AST 13 L (15-37) U/L ALT 16 (12-78) U/L Alkaline Phosphatase 132 H (45-117) U/L Troponin I 0.030 (0-0.045) ng/ml NT-Pro-B Natriuret Pep 149 (0-900) pg/ml Total Protein 6.1 L (6.4-8.2) gm/dl Albumin 2.9 L (3.4-5.0) gm/dl Globulin 3.2 (2.5-4.0) gm/dl Albumin/Globulin Ratio 0.9 (0.9-2) Lipase 86 (73-393) U/L Beta-Hydroxybutyric Acd (0.2-2.81) mg/dl TSH 1.470 (0.300-4.500) uIu/ml Specimen Hemolysis Urine Color Yellow Urine Appearance Clear (Clear) Urine pH 6.0 (4.5-7.5) Ur Specific [place] 1.022 (1.000-1.030) Urine Protein Negative (Negative) Urine Glucose (UA) 3+ H (Negative) Urine Ketones Negative (Negative) Urine Blood Negative (Negative) Urine Nitrite Negative (Negative) Urine Bilirubin Negative (Negative) Urine Urobilinogen Negative (Negative) Ur Leukocyte Esterase Negative (Negative) 02/20/19 02/20/19 Range/Units 02:27 03:29 WBC (4.8-10.8) K/uL RBC (4.2-5.4) M/uL Hgb (12.0-16.0) g/dL Hct (37-47) % MCV (80-100) fL MCH (25-34) pg MCHC (32-36) g/dL RDW Std Deviation (36.4-46.3) fL RDW Coeff of Jame (11.5-14.5) % Plt Count (130-400) K/uL MPV (7.4-10.4) fL Immature Gran % (Auto) % Neut % (Auto) % Lymph % (Auto) % [place] % (Auto) % Eos % (Auto) % Baso % (Auto) % Immature Gran # (Auto) (0.00-0.02) K/uL Neut # (Auto) (1.4-6.5) K/uL Lymph # (Auto) (1.2-3.4) K/uL [place] # (Auto) (0.11-0.59) K/uL Eos # (Auto) (0-0.5) K/uL Baso # (Auto) (0-0.2) K/uL Sodium (136-145) mmol/L Potassium (3.5-5.1) mmol/L Chloride (98-107) mmol/L Carbon Dioxide (21-32) mmol/L Anion Gap (3-11) BUN (7-18) mg/dl Creatinine (0.6-1.2) mg/dl Est Cr Clr Drug Dosing ml/min Est GFR ( Amer) Est GFR (Non-Af Amer) BUN/Creatinine Ratio (10-20) Glucose (70-99) mg/dl POC Glucose 267 H 283 H (70-99) Calcium (8.5-10.1) mg/dl Magnesium (1.8-2.4) mg/dl Total Bilirubin (0.2-1) mg/dl AST (15-37) U/L ALT (12-78) U/L Alkaline Phosphatase (45-117) U/L Troponin I (0-0.045) ng/ml NT-Pro-B Natriuret Pep (0-900) pg/ml Total Protein (6.4-8.2) gm/dl Albumin (3.4-5.0) gm/dl Globulin (2.5-4.0) gm/dl Albumin/Globulin Ratio (0.9-2) Lipase (73-393) U/L Beta-Hydroxybutyric Acd (0.2-2.81) mg/dl TSH (0.300-4.500) uIu/ml Specimen Hemolysis Urine Color Urine Appearance (Clear) Urine pH (4.5-7.5) Ur Specific [place] (1.000-1.030) Urine Protein (Negative) Urine Glucose (UA) (Negative) Urine Ketones (Negative) Urine Blood (Negative) Urine Nitrite (Negative) Urine Bilirubin (Negative) Urine Urobilinogen (Negative) Ur Leukocyte Esterase (Negative) Diagnostic Findings Appears to have mild pulmonary edema, more than prior study Code Status & VTE Plan Code Status FULL VTE Prophylaxis Plan VTE Prophylaxis will be ordered: Yes (1) Anemia Anemia type: unspecified type Qualified Code(s): D64.9 - Anemia, unspecified (2) GERD (gastroesophageal reflux disease) Esophagitis presence: esophagitis presence not specified Qualified Code(s): K21.9 - Gastro-esophageal reflux disease without esophagitis (3) Diabetes Diabetes mellitus type: type 2 Diabetes mellitus penitentiary insulin use: with penitentiary use Diabetes mellitus complication status: without complication Qualified Code(s): E11.9 - Type 2 diabetes mellitus without complications; 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
[2019-02-20] MEDS ORDERED: SODIUM CHLORIDE 0.65% NA SOLN 45 ML (OCEAN) PRN (05:50)
[2019-02-20] MEDS ORDERED: DC ALL PREVIOUSLY ORDERED DIABETES MEDS ONE (05:50)
[2019-02-20] MEDS ORDERED: GLUCOSE 40% GEL 15 GM TUBE PO PRN (05:50)
[2019-02-20] MEDS ORDERED: ALUMINUM/MAGNESIUM SUSP 30 ML UDC PO PRN (05:50)
[2019-02-20] MEDS ORDERED: GLUCAGON FOR INJ 1 MG VIAL SQ PRN (05:50)
[2019-02-20] MEDS ORDERED: MAGNESIUM HYDROXIDE SUSP 30 ML UDC PO PRN (05:50)
[2019-02-20] MEDS ORDERED: DEXTROSE 50% 50 ML SYRINGE IV PRN (05:50)
[2019-02-20] MEDS ORDERED: GLUCOSE 10 TABS/TUBE PO PRN (05:50)
[2019-02-20] MEDS ORDERED: CARBOHYDRATES FOR HYPOGLYCEMIA PO PRN (05:50)
[2019-02-20] MEDS ORDERED: ACETAMINOPHEN 325 MG TAB PO PRN (05:50)
--- NOTE | 2019-02-20 06:04 | Emergency Department Note ---
Entered by Erin Oshea acting as a scribe for History of Present Illness General Chief complaint: Shortness of Breath/Dyspnea Stated complaint: breathing difficulty Time Seen by Provider: 02/19/19 23:11 Source: patient History of Present Illness Onset (ago): week(s) 1 Location: chest Pain Consistency: + other (worsening) Maximum Pain Intensity: 5 Quality: + other (shortness of breath) Relieved By: not by other (O2, inhalers, nebulizers) Exacerbated By: + movement (exertion) Associated symptoms: + cough (productive), + diaphoresis, + fever/chills (chills) and + other (chest congestion, leg swelling, tea colored urine, hot flashes) The patient is a 73 year old female who presents to the ED with complaints of worsening shortness of breath starting a week ago. The patient states that she has a history of COPD and CHF. She states that she follows with a retail store clerk and sterilizer machine operator. The patient states that a week ago she started feeling congested in her chest. She states that because of it, she has had a cough. She reports that sometimes it is productive and produces a yellow phlegm. She states that she has developed shortness of breath with it as well that is worse with exertion. She notes that she cannot even make it to the bathroom without being short of breath. The patient states that she is on 2L O2 at all times, but it didnt help. She states that she tried her inhalers and nebulizers with mild relief at first, but it goes right back. The patient states that she became concerned because today she noticed her legs starting to swell up. She states that she became concerned as it feels the same as when she has had CHF in the past, so she decided to come to the ED. The patient complains of tea colored urine, intermittent chills, and intermittent hot flashes with diaphoresis. She notes that she did not take her temperature to determine if she had a fever. The patient notes that she believes she takes a water pill daily. The patients caregiver notes that the patients friend recently was diagnosed with pneumonia. The patient denies hematuria and a history of kidney problems. Home Medications Home Medications Medication Instructions Recorded Confirmed Type acetaminophen 325 mg PO QID PRN 02/10/19 02/19/19 History atorvastatin 80 mg PO DAILY 02/10/19 02/19/19 History cholecalciferol (vitamin D3) 400 unit PO DAILY 02/10/19 02/19/19 History [Vitamin D3] escitalopram oxalate 15 mg PO DAILY 02/10/19 02/19/19 History famotidine 20 mg PO DAILY 02/10/19 02/19/19 History insulin glargine [Lantus Solostar 8 unit SUBCUT QPM 02/10/19 02/19/19 History U-100 Insulin] levothyroxine 25 mcg PO DAILY 02/10/19 02/19/19 History metformin 500 mg PO BID 02/10/19 02/19/19 History metoprolol succinate 25 mg PO BID 02/10/19 02/19/19 History mirtazapine 30 mg PO DAILY 02/10/19 02/19/19 History mirtazapine 30 mg PO HS 02/10/19 02/19/19 History montelukast 10 mg PO PM 02/10/19 02/19/19 History ondansetron HCl [Zofran] 4 mg PO Q8H PRN #20 tab 02/10/19 02/19/19 Rx pantoprazole 40 mg PO BID 02/10/19 02/19/19 History potassium chloride 20 meq PO DAILY 02/10/19 02/19/19 History quetiapine 200 mg PO DAILY 02/10/19 02/19/19 History rivaroxaban [Xarelto] 20 mg PO DAILY 02/10/19 02/19/19 History roflumilast [Daliresp] 500 mcg PO DAILY 02/10/19 02/19/19 History spironolactone 50 mg PO BID 02/10/19 02/19/19 History sucralfate 1 g PO ACHS 02/10/19 02/19/19 History theophylline [Rohit-24] 400 mg PO DAILY 02/10/19 02/19/19 History magnesium oxide 400 mg PO BID 02/20/19 02/20/19 History Allergies Allergy/AdvReac Type Severity Reaction Status Date / Time rabies vaccine, duck-embryo Allergy Severe HIVES Verified 02/19/19 23:53 ragweed pollen Allergy Unknown UNKNOWN Verified 02/19/19 23:53 tomato Allergy Unknown HIVES Verified 02/19/19 23:53 Past Med/Surg History Medical History Vomiting and diarrhea (Acute) CHF (congestive heart failure) (Chronic) COPD (chronic obstructive pulmonary disease) (Chronic) Acid reflux (Chronic) Diabetes (Chronic) Acute respiratory failure with hypoxia (Acute) GERD (gastroesophageal reflux disease) (Chronic) KATHLEEN (generalized anxiety disorder) (Chronic) Major depression, recurrent, full remission (Chronic) Elevated troponin Endocarditis GI bleed Hypoxia (Resolved) MSSA (methicillin susceptible Staphylococcus aureus) septicemia Nausea & vomiting QT prolongation Septic thrombophlebitis Spinal abscess Syncope CHF (congestive heart failure) (Chronic) COPD (chronic obstructive pulmonary disease) (Chronic) Surgical History History of lumpectomy Family History Other Coronary heart disease Stroke Social History Preferred Language: Nigerien marital status: Single Current Living Situation: Alone Current Living Situation Comment: with caregiver current occupational status: retired Feels Safe at Home: Yes Smoking Status: Former smoker Review of Systems See HPI for pertinent positives & negatives. and A total of 10 systems reviewed and were otherwise negative Physical Exam Vital Signs Vital Signs - 24 hr 02/19/19 23:02 02/19/19 23:30 02/20/19 00:01 Temperature 36.4 C L Temperature Source Oral Sepsis Recent Fever Within 48 Hours No Sepsis New/Unexplained Change in Mental Status No Sepsis Action Taken by Nursing No Action Required Pulse Rate 75 Pulse Rate [Apical] 77 Respiratory Rate 22 19 Respiratory Effort / Characteristics Blood Pressure 135/96 Blood Pressure [Left Arm] 138/92 Blood Pressure Mean 109 Blood Pressure Mean [Left Arm] 107 Pulse Oximetry 98 97 Oxygen Delivery Method Nasal Cannula Nasal Cannula Nasal Cannula Oxygen Flow Rate 2 2 2 02/20/19 00:06 02/20/19 01:02 02/20/19 01:44 Temperature Temperature Source Sepsis Recent Fever Within 48 Hours Sepsis New/Unexplained Change in Mental Status Sepsis Action Taken by Nursing Pulse Rate Pulse Rate [Apical] 76 70 71 Respiratory Rate 18 23 18 Respiratory Effort / Characteristics Non-Labored Spontaneous Non-Labored Spontaneous Blood Pressure Blood Pressure [Left Arm] 141/74 H Blood Pressure Mean Blood Pressure Mean [Left Arm] 96 Pulse Oximetry 98 98 97 Oxygen Delivery Method Nasal Cannula Nasal Cannula Nasal Cannula Oxygen Flow Rate 2 2 2 02/20/19 02:00 02/20/19 03:00 02/20/19 04:00 Temperature Temperature Source Sepsis Recent Fever Within 48 Hours Sepsis New/Unexplained Change in Mental Status Sepsis Action Taken by Nursing Pulse Rate Pulse Rate [Apical] 87 79 76 Respiratory Rate 17 17 19 Respiratory Effort / Characteristics Blood Pressure Blood Pressure [Left Arm] 146/103 H 161/86 H 137/91 Blood Pressure Mean Blood Pressure Mean [Left Arm] 117 111 106 Pulse Oximetry 98 97 96 Oxygen Delivery Method Nasal Cannula Nasal Cannula Room Air Oxygen Flow Rate 2 2 GENERAL: alert, well appearing, well nourished, no distress, non-toxic EYE EXAM: normal conjunctiva, PERRL and EOM's grossly intact OROPHARYNX: no exudate, no erythema, lips, buccal mucosa, and tongue normal and mucous membranes are moist NECK: supple, no nuchal rigidity, no adenopathy, non-tender LUNGS: Bilateral wheezing. No rhonchi or rales. Normal chest wall mechanics HEART: no murmurs, S1 normal and S2 normal ABDOMEN: abdomen soft, non-tender, normo-active bowel sounds, no masses, no rebound or guarding. BACK: Back is symmetrical on inspection and there is no deformity, no midline tenderness, no CVA tenderness. SKIN: no rashes and no bruising UPPER EXTREMITIES: upper extremities are grossly normal. Nml pulses b/l. LOWER EXTREMITIES: 1+ lower extremity edema. Nml pulses b/l. NEURO EXAM: Normal sensorium, cranial nerves II-XII grossly intact, normal speech, no gross weakness of arms, no gross weakness of legs. Course 2314: Past medical records reviewed. The patient was evaluated in room A9B. A complete history and physical exam was performed. 2325: I reviewed the EMR at this time. The patient was seen here in the ED on February 10 with complaints of nausea, vomiting, and diarrhea. According to her medication list, she is not currently on a diuretic, but is on a blood thinner. 0006: I reviewed the records from [facility] that case management found. In the spring she had aortic valve endocarditis. The patient had an echo done December of 2017. She had normal LV sized wall thickness and normal LV function. Cardiac cath from around the same time did not show obstructive coronary artery disease. 0121: I reevaluated the patient and updated her on her test results. I discussed the treatment plan with her. She verbally agrees and understands. 0140: I discussed the patient's case with Dr. Priscilla SPEAR Hospitalist. She will evaluate the patient for further management. Consultations Consultation #1: I discussed the patient's case with Dr. Priscilla SPEAR Hospitalist. She will evaluate the patient for further management. Time: 01:40 Administered Medications Discontinued Medications Albuterol (Duoneb) 3 ml NEB NOW STA Stop: 02/19/19 23:29 Last Admin: 02/20/19 00:01 Dose: 3 ml Documented by: [id number] Albuterol (Duoneb) 3 ml NEB NOW STA Stop: 02/20/19 01:27 Last Admin: 02/20/19 01:43 Dose: 3 ml Documented by: [id number] Furosemide (Lasix) Confirm Administered Dose 40 mg IV .STK-MED ONE Stop: 02/20/19 01:32 Last Admin: 02/20/19 01:37 Dose: 20 mg Documented by: [id number] Magnesium Sulfate/Dextrose (Magnesium Sulfate / D5w) 1 gm in 100 mls @ 100 mls/hr IV ONE ONE Stop: 02/20/19 00:27 Last Infusion: 02/20/19 00:43 Dose: 0 mls/hr Documented by: [id number] Admin: 02/19/19 23:51 Dose: 100 mls/hr Documented by: [id number] Methylprednisolone 80 mg/ (Syringe) 1.28 mls @ 1.5 mls/min IV NOW STA Stop: 02/20/19 00:45 Last Admin: 02/20/19 00:50 Dose: Not Given Documented by: [id number] Cefepime HCl (Maxipime) 2,000 mg in 20 mls @ 5 mls/min IV NOW STA; Protocol Stop: 02/20/19 00:53 Last Admin: 02/20/19 00:56 Dose: 5 mls/min Documented by: [id number] Furosemide 20 mg/ Syringe 2 mls @ 4 mls/min IV NOW STA Stop: 02/20/19 01:27 Last Admin: 02/20/19 01:37 Dose: Not Given Documented by: [id number] Insulin Human Regular 8 units/ (Syringe) 0.08 mls @ 0.0033 mls/min SC NOW STA Stop: 02/20/19 01:29 Last Admin: 02/20/19 01:37 Dose: 0.0033 mls/min Documented by: [id number] Cosigned by: [id number] Insulin Human Regular (Novolin R U-100 Per Unit) Confirm Administered Dose 8 units .ROUTE .STK-MED ONE Stop: 02/20/19 01:33 Last Admin: 02/20/19 01:38 Dose: Not Given Documented by: [id number] Methylprednisolone (Solumedrol) Confirm Administered Dose 125 mg .ROUTE .STK-MED ONE Stop: 02/20/19 00:47 Last Admin: 02/20/19 00:49 Dose: 80 mg Documented by: [id number] Medical Decision Making Differential Diagnosis Differential diagnoses includes but is not limited to pneumonia, bronchitis, COPD/Asthma exacerbation, pneumothorax, pulmonary embolism, congestive heart failure, acute coronary syndrome Medical Records Attestation: I reviewed the patient's medical records. Home Medications Current Medication List: was personally reviewed by me Laboratory Data Attestation: I reviewed the patient's lab results. Result diagrams: 02/19/19 23:34 02/19/19 23:34 Lab Results 02/19/19 02/19/19 02/20/19 Range/Units 23:34 23:34 02:00 WBC 7.30 (4.8-10.8) K/uL RBC 3.39 L (4.2-5.4) M/uL Hgb 8.2 L (12.0-16.0) g/dL Hct 26.6 L (37-47) % MCV 78.5 L (80-100) fL MCH 24.2 L (25-34) pg MCHC 30.8 L (32-36) g/dL RDW Std Deviation 44.3 (36.4-46.3) fL RDW Coeff of Jame 15.3 H (11.5-14.5) % Plt Count 249 (130-400) K/uL MPV 8.7 (7.4-10.4) fL Immature Gran % (Auto) 0.3 % Neut % (Auto) 56.1 % Lymph % (Auto) 29.2 % [place] % (Auto) 10.5 % Eos % (Auto) 3.6 % Baso % (Auto) 0.3 % Immature Gran # (Auto) 0.02 (0.00-0.02) K/uL Neut # (Auto) 4.10 (1.4-6.5) K/uL Lymph # (Auto) 2.13 (1.2-3.4) K/uL [place] # (Auto) 0.77 H (0.11-0.59) K/uL Eos # (Auto) 0.26 (0-0.5) K/uL Baso # (Auto) 0.02 (0-0.2) K/uL Sodium 141 (136-145) mmol/L Potassium 3.7 (3.5-5.1) mmol/L Chloride 107 (98-107) mmol/L Carbon Dioxide 28 (21-32) mmol/L Anion Gap 6.0 (3-11) BUN 16 (7-18) mg/dl Creatinine 0.95 (0.6-1.2) mg/dl Est Cr Clr Drug Dosing 56.8 ml/min Est GFR ( Amer) 68.4 Est GFR (Non-Af Amer) 59.0 BUN/Creatinine Ratio 17.1 (10-20) Glucose 310 H* (70-99) mg/dl POC Glucose (70-99) Calcium 8.4 L (8.5-10.1) mg/dl Magnesium 1.5 L (1.8-2.4) mg/dl Total Bilirubin 0.2 (0.2-1) mg/dl AST 13 L (15-37) U/L ALT 16 (12-78) U/L Alkaline Phosphatase 132 H (45-117) U/L Troponin I 0.030 (0-0.045) ng/ml NT-Pro-B Natriuret Pep 149 (0-900) pg/ml Total Protein 6.1 L (6.4-8.2) gm/dl Albumin 2.9 L (3.4-5.0) gm/dl Globulin 3.2 (2.5-4.0) gm/dl Albumin/Globulin Ratio 0.9 (0.9-2) Lipase 86 (73-393) U/L Beta-Hydroxybutyric Acd (0.2-2.81) mg/dl TSH 1.470 (0.300-4.500) uIu/ml Specimen Hemolysis Urine Color Yellow Urine Appearance Clear (Clear) Urine pH 6.0 (4.5-7.5) Ur Specific [place] 1.022 (1.000-1.030) Urine Protein Negative (Negative) Urine Glucose (UA) 3+ H (Negative) Urine Ketones Negative (Negative) Urine Blood Negative (Negative) Urine Nitrite Negative (Negative) Urine Bilirubin Negative (Negative) Urine Urobilinogen Negative (Negative) Ur Leukocyte Esterase Negative (Negative) 02/20/19 02/20/19 Range/Units 02:27 03:29 WBC (4.8-10.8) K/uL RBC (4.2-5.4) M/uL Hgb (12.0-16.0) g/dL Hct (37-47) % MCV (80-100) fL MCH (25-34) pg MCHC (32-36) g/dL RDW Std Deviation (36.4-46.3) fL RDW Coeff of Jame (11.5-14.5) % Plt Count (130-400) K/uL MPV (7.4-10.4) fL Immature Gran % (Auto) % Neut % (Auto) % Lymph % (Auto) % [place] % (Auto) % Eos % (Auto) % Baso % (Auto) % Immature Gran # (Auto) (0.00-0.02) K/uL Neut # (Auto) (1.4-6.5) K/uL Lymph # (Auto) (1.2-3.4) K/uL [place] # (Auto) (0.11-0.59) K/uL Eos # (Auto) (0-0.5) K/uL Baso # (Auto) (0-0.2) K/uL Sodium (136-145) mmol/L Potassium (3.5-5.1) mmol/L Chloride (98-107) mmol/L Carbon Dioxide (21-32) mmol/L Anion Gap (3-11) BUN (7-18) mg/dl Creatinine (0.6-1.2) mg/dl Est Cr Clr Drug Dosing ml/min Est GFR ( Amer) Est GFR (Non-Af Amer) BUN/Creatinine Ratio (10-20) Glucose (70-99) mg/dl POC Glucose 267 H 283 H (70-99) Calcium (8.5-10.1) mg/dl Magnesium (1.8-2.4) mg/dl Total Bilirubin (0.2-1) mg/dl AST (15-37) U/L ALT (12-78) U/L Alkaline Phosphatase (45-117) U/L Troponin I (0-0.045) ng/ml NT-Pro-B Natriuret Pep (0-900) pg/ml Total Protein (6.4-8.2) gm/dl Albumin (3.4-5.0) gm/dl Globulin (2.5-4.0) gm/dl Albumin/Globulin Ratio (0.9-2) Lipase (73-393) U/L Beta-Hydroxybutyric Acd (0.2-2.81) mg/dl TSH (0.300-4.500) uIu/ml Specimen Hemolysis Urine Color Urine Appearance (Clear) Urine pH (4.5-7.5) Ur Specific [place] (1.000-1.030) Urine Protein (Negative) Urine Glucose (UA) (Negative) Urine Ketones (Negative) Urine Blood (Negative) Urine Nitrite (Negative) Urine Bilirubin (Negative) Urine Urobilinogen (Negative) Ur Leukocyte Esterase (Negative) Imaging Data Attestation: I personally reviewed and interpreted this imaging study as follows: My Impression: CHEST X-RAY: The results were interpreted by me. No cardiomegaly. No effusions. Slightly increased interstitial markings bilaterally. No focal consolidation. No wide mediastinum. ECG Data Attestation: I personally reviewed and interpreted this ECG as follows: Indication: SOB/dyspnea Rate (beats per minute): 76 Rhythm: sinus rhythm Findings: + other (normal axis, normal intervals); no PAC, no PVC, no ST depression, no ST elevation, no acute ischemic change and no ectopy Blood Pressure Blood Pressure Findings: Elevated blood pressure Blood Pressure Disposition: further management by hospitalist MELISSA Edwards Patient presents complaining of increased shortness of breath that is been worsening over the course the last week with persistent cough, decreasing relief from her usual nebulizer treatments, increased dyspnea on exertion, and eventual lower extremity edema. Patient states she has had similar symptoms previously with COPD as well as CHF, however feels her symptoms have now became more similar to her prior admission for CHF. Patient states she does see cardiology as well as pulmonology. Does wear her home oxygen at 2 L/min chronically, although has felt it is not been enough during exertion over the course of last week. States her cough is been more frequent and sputum has changed in color. Describes subjective fevers and chills, however no measurable fever. Patient found to have bilateral wheezes and coarse breath sounds. She did report slight improvement with DuoNeb's here. Patient given steroids, magnesium, and covered with antibiotics for likely COPD exacerbation. Due to slightly increased inter stitial markings noted on chest x-ray as well as mild lower extremity edema, patient also given 1 dose of Lasix. No evidence of pneumonia. Patient's exam not consistent with acute pulmonary edema. No need for additional respiratory support beyond her usual nasal cannula at this time. Patient otherwise hemodynamically stable. Troponin negative, I do not suspect acute ACS. Patient's last echo approximately a year ago showed only mildly diminished ejection fraction. No evidence for bacteremia/sepsis. I did discuss all results with patient at bedside. Discussed options for disposition, and she was in agreement with plan for additional inpatient evaluation by the hospitalist. Patient's H&H was noted to be slightly lower than she has had previously. She denied any recent black or bloody stools, frequent nosebleeds, or hemoptysis. 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 Patient's worsening anemia could also be contributing to her increased shortness of breath. No indication at this time for transfusion. Patient was given a dose of subcutaneous insulin here due to hyperglycemia. Patient is a known diabetic. Repeat blood glucose level was improved. No evidence of DKA or HHNK. Impression & Plan COPD exacerbation, Lower extremity edema, Hyperglycemia, Hypomagnesemia, Anemia Discharge Plan Visit Data *Final* Discharge Date/Time: 02/20/19 05:26 Chief Complaint: Shortness of Breath/Dyspnea Stated Complaint: breathing difficulty ED Provider: Audrey Longoria Discharge Problem: COPD exacerbation, Lower extremity edema, Hyperglycemia, Hypomagnesemia, Anemia Patient Disposition: Admitted As Inpatient Discharge Instructions Interventions: ED Discharge Assessment Last Done: 02/20/19 05:26 Discharge Problem: Anemia Qualifiers: Anemia type: unspecified type Qualified Code(s): D64.9 - Anemia, unspecified The scribe's documentation has been prepared under my direction and personally reviewed by me in its entirety. I confirm that the note above accurately reflects all work, treatment, procedures, and medical decision making performed by me.
--- NOTE | 2019-02-20 06:18 | XRay Report ---
XR chest 1V portable HISTORY: 73 years-old Female sob acute shortness of breath COMPARISON: Chest radiograph 02/10/2019 TECHNIQUE: Portable AP view the chest FINDINGS: Cardiac silhouette is mildly enlarged, unchanged. Calcification of the thoracic aortic arch. Chronic interstitial coarsening of the mid and lower lung zones. No pneumothorax, large pleural effusion or o vert pulmonary edema. Degenerative changes of the shoulders and spine. IMPRESSION: 1. Cardiomegaly without overt pulmonary edema. 2. Chronic interstitial coarsening of the mid to lower lung zones appears unchanged from comparison s derek. The above report was generated using voice recognition software. It may contain grammatical, syntax o r spelling errors. Electronically signed by: Dm Zepeda M.D. 02/20/2019 6:17 AM
[2019-02-20] MEDS: MAGNESIUM SULFATE / D5W 1 GM/100 ML BAG IV SCH ×2 (06:27→08:49)
[2019-02-20] MEDS: ALBUT/IPRATROP 3MG/0.5MG NEB 3 ML VIAL NEB SCH ×5 (07:10→23:00)
[2019-02-20] MEDS: SUCRALFATE 1 GM TAB PO SCH ×4 (07:52→21:04)
[2019-02-20] MEDS: INSULIN ASPART 100 UNITS/ML 3 ML PEN SC SCH ×4 (09:05→21:06)
[2019-02-20] MEDS: INSULIN GLARGINE SOLOSTAR 100 UNITS/ML 3 ML PEN SC SCH (09:06)
[2019-02-20] MEDS: MAGNESIUM OXIDE 400 MG TAB PO SCH ×2 (09:09→21:05)
[2019-02-20] MEDS: guaiFENesin 600 MG TABCR PO SCH ×2 (09:09→21:05)
[2019-02-20] MEDS: FUROSEMIDE 20 MG in SYRINGE 0 ML IV SCH ×2 (09:09→21:05)
[2019-02-20] MEDS: CEFEPIME 1,000 MG in SYRINGE 0 ML IV SCH ×2 (09:10→19:09)
[2019-02-20] MEDS: POTASSIUM CHLORIDE 20 MEQ TABCR PO SCH (09:10)
[2019-02-20] MEDS: ATORVASTATIN 40 MG TAB PO SCH (09:10)
[2019-02-20] MEDS: PANTOprazole 40 MG TAB PO SCH ×2 (09:11→21:09)
[2019-02-20] MEDS: LEVOTHYROXINE SODIUM 25 MCG TABLET PO SCH (09:11)
[2019-02-20] MEDS: ROFLUMILAST 500 MCG TAB PO SCH (09:11)
[2019-02-20] MEDS: predniSONE 20 MG TAB PO SCH (09:11)
[2019-02-20] MEDS: RIVAROXABAN 20 MG TAB PO SCH (09:12)
[2019-02-20] MEDS: METOPROLOL SUCC 25MG EXT REL TAB PO SCH ×2 (09:12→21:10)
[2019-02-20] MEDS: SPIRONOLACTONE 25 MG TAB PO SCH ×2 (09:12→17:45)
[2019-02-20] MEDS: ESCITALOPRAM OXALATE 10 MG TAB PO SCH (09:13)
[2019-02-20] MEDS: THEOPHYLLINE 400 MG EXTENDED REL TAB PO SCH (09:13)
[2019-02-20] MEDS ORDERED: PHARMACY GLYCEMIC MGMT CONSULT SCH (12:21)
--- NOTE | 2019-02-20 13:13 | Pharmacy Report ---
Glycemic Control Consultation - Date of Service February 20, 2019 - Scope Scope: Glycemic Pharmacist consulted by Dr Devries on 02/20/19 for glycemic control and to write orders per [facility] inpatient glycemic control protocol - Objective Weight: 94.4 kg Accuchecks BSG (last 24hrs): 02/19/19 02/20/19 02/20/19 23:34 02:27 03:29 Glucose 310 H* POC Glucose 267 H 283 H 02/20/19 02/20/19 02/20/19 06:39 07:59 08:01 Glucose POC Glucose 256 H 306 H* 288 H 02/20/19 02/20/19 11:52 11:54 Glucose POC Glucose 309 H* 319 H* Laboratory Data (last 24hrs): 02/19/19 23:34 Potassium 3.7 Carbon Dioxide 28 Anion Gap 6.0 Creatinine 0.95 Est Cr Clr Drug Dosing 56.8 Beta-Hydroxybutyric Acd - Recent Pertinent Medications Outpatient Anti-diabetic Regimen: * Lantus 8 units HS * Metformin 500mg BID * A1c = 8.8 % 10/29/17 - updated A1c on order with AM labs The patient is currently receiving: * Basal insulin: Lantus 16 units every 12 hours * Correctional Insulin: Novolog Correction per scale ACHS Goal Range: Low 110 mg/dL - High 140 mg/dL Correction Factor: 25 mg/dL/unit * Prandial insulin: Per carb ratio of 1 unit per 8 grams CHO consumed * Oral Agents: on hold Risk Factors for Insulin Resistance: * Steroids: Solu-medrol 80mg IV x1 at 0000 and then Prednisone 60mg PO daily started this morning * Infection: IV Cefepime started for COPD Exacerbation * Diet: Type 2 DM - Assessment & Plan Assessment & Plan: ASSESSMENT: * 73 year old female admitted for COPD exacerbation with some mild volume overload, on diuretics and IV Cefepime, one dose of IV Steroid, now on PO * 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 * Lantus dose is quadrupled from home dose, will continue this dose for this time for patient's high A1c and BSGs in 300s and still on steroid taper, but may need to scale back, will watch. * Tighten CF and CR at this time, and loosen as steroids taper. * ADA & AACE recommend a goal blood sugar range 140-180 mg/dl for the majority of critically ill & non-critically ill patients. However, more stringent targets may be selected in individual cases. Will utilize more stringent goal of 110-140mg/dl based on patient age & comorbidities. Additionally, tighter glycemic control is warranted to facilitate wound/infection healing. PLAN FOR INPATIENT GLYCEMIC CONTROL: * Holding outpatient oral diabetes medications * Basal insulin - continue * Lantus 16 units SQ BID * Bolus insulin * NovoLog per scale ACHS or Q6hrs while NPO * Goal Range: Low 110 mg/dL - High 140 mg/dL * TIGHTEN: Correction Factor: 10 mg/dL/unit * TIGHTEN: Nutritional / Prandial insulin per carb ratio of 1 unit per 4 grams CHO consumed * Please note that the plan above was derived based on current level of insulin resistance and hospital stress. These recommendations are appropriate for inpatient admission only. Plan of care upon discharge will need to be reassessed to avoid potential outpatient hypo/hyperglycemia. Thank you.
[2019-02-20] MEDS ORDERED: COUGH DROP (SUGAR FREE) LOZ 24 LOZ/1 BOX BUCCAL ONE (15:50)
[2019-02-20] MEDS ORDERED: CEFEPIME 1,000 MG in SYRINGE 0 ML IV SCH (17:00)
[2019-02-20] MEDS ORDERED: INSULIN GLARGINE SOLOSTAR 100 UNITS/ML 3 ML PEN SC SCH (21:00)
[2019-02-20] MEDS ORDERED: INSULIN GLARGINE SOLOSTAR 100 UNITS/ML 3 ML PEN SQ SCH (21:00)
[2019-02-20] MEDS: MIRTAZAPINE TAB 15 MG TAB PO SCH (21:10)
[2019-02-20] MEDS: MONTELUKAST SODIUM 10 MG TABLET PO SCH (21:10)
[2019-02-20] MEDS: QUETIAPINE FUMARATE 200 MG TAB PO SCH (21:10)
[2019-02-21] MEDS: CEFEPIME 1,000 MG in SYRINGE 0 ML IV SCH ×2 (02:23→08:43)
[2019-02-21] MEDS: ALBUT/IPRATROP 3MG/0.5MG NEB 3 ML VIAL NEB SCH ×6 (03:36→23:43)
[2019-02-21 06:10] LABS: Basophils # (auto) 0.01 K/uL (0-0.2); Basophils % (auto) 0.1 %; Eosinophils # (auto) 0.04 K/uL (0-0.5); Eosinophils % (auto) 0.4 %; Hematocrit (blood only) 28.8 % (37-47); Hemoglobin 8.8 g/dL (12.0-16.0); Immature Granulocytes # (auto) 0.03 K/uL (0.00-0.02); Immature Granulocytes % (auto) 0.3 %; Lymphocytes # (auto) 2.07 K/uL (1.2-3.4); Lymphocytes % (auto) 18.2 %; Mean Corpuscular Hgb Conc 30.6 g/dL (32-36); Mean Corpuscular Volume 77.6 fL (80-100); Mean Platelet Volume 8.8 fL (7.4-10.4); Monocytes # (auto) 1.14 K/uL (0.11-0.59); Neutrophils # (auto) 8.08 K/uL (1.4-6.5); Platelet Count 276 K/uL (130-400); RDW Coefficient of Variation 15.3 % (11.5-14.5); RDW Standard Deviation 43.7 fL (36.4-46.3); Red Blood Count 3.71 M/uL (4.2-5.4); White Blood Count 11.37 K/uL (4.8-10.8)
[2019-02-21 06:44] LABS: BUN Creatinine Ratio 21.2 (10-20); Calcium 9.2 mg/dl (8.5-10.1); Creatinine Clr Calc Pharmacy 44.2 ml/min; Est GFR (African American) 50.5; Est GFR (Non-African American) 43.6; Potassium 3.6 mmol/L (3.5-5.1)
[2019-02-21 06:50] LABS: Estimated Average Glucose 292 mg/dl; Hemoglobin A1C 11.8 % (4.5-5.6)
[2019-02-21] MEDS: ESCITALOPRAM OXALATE 10 MG TAB PO SCH (08:43)
[2019-02-21] MEDS: FUROSEMIDE 20 MG in SYRINGE 0 ML IV SCH (08:43)
[2019-02-21] MEDS: ATORVASTATIN 40 MG TAB PO SCH (08:43)
[2019-02-21] MEDS: LEVOTHYROXINE SODIUM 25 MCG TABLET PO SCH (08:44)
[2019-02-21] MEDS: PANTOprazole 40 MG TAB PO SCH ×2 (08:44→21:52)
[2019-02-21] MEDS: SPIRONOLACTONE 25 MG TAB PO SCH ×2 (08:44→16:41)
[2019-02-21] MEDS: POTASSIUM CHLORIDE 20 MEQ TABCR PO SCH (08:44)
[2019-02-21] MEDS: ROFLUMILAST 500 MCG TAB PO SCH (08:44)
[2019-02-21] MEDS: THEOPHYLLINE 400 MG EXTENDED REL TAB PO SCH (08:44)
[2019-02-21] MEDS: MAGNESIUM OXIDE 400 MG TAB PO SCH ×2 (08:45→21:56)
[2019-02-21] MEDS: guaiFENesin 600 MG TABCR PO SCH ×2 (08:45→21:53)
[2019-02-21] MEDS: predniSONE 20 MG TAB PO SCH (08:45)
[2019-02-21] MEDS: RIVAROXABAN 20 MG TAB PO SCH (08:45)
[2019-02-21] MEDS: METOPROLOL SUCC 25MG EXT REL TAB PO SCH ×2 (08:45→21:53)
[2019-02-21] MEDS: SUCRALFATE 1 GM TAB PO SCH ×4 (08:45→21:52)
[2019-02-21] MEDS: INSULIN ASPART 100 UNITS/ML 3 ML PEN SC SCH ×4 (08:53→21:51)
[2019-02-21] MEDS: INSULIN GLARGINE SOLOSTAR 100 UNITS/ML 3 ML PEN SC SCH (08:54)
[2019-02-21] MEDS ORDERED: INSULIN HUMAN NPH SC SCH (09:00)
--- NOTE | 2019-02-21 14:29 | Pharmacy Report ---
Glycemic Control Progress Note - Date of Service February 21, 2019 - Scope Glycemic Pharmacist consulted for glycemic control to write orders per [facility] inpatient glycemic control protocol. - Objective Accuchecks BSG(last 24 hours):: 02/20/19 02/20/19 02/21/19 16:55 20:05 05:49 Glucose 167 H POC Glucose 242 H 143 H 02/21/19 02/21/19 07:54 11:47 Glucose POC Glucose 178 H 173 H HbA1c:: Hemoglobin A1c 11.8 % (4.5-5.6) H 02/21/19 05:49 - Recent Pertinent Medications The patient is currently receiving: * Basal insulin: Lantus 16 units every 12 hours (received 9 units last night) * Correctional Insulin: Novolog Correction per scale ACHS Goal Range: Low 110 mg/dL - High 140 mg/dL Correction Factor: 10 mg/dL/unit * Prandial insulin: Per carb ratio of 1 unit per 4 grams CHO consumed - Outpatient Anti-Diabetic Meds Lantus 8 units HS plus metformin 500 mg BID - Assessment & Plan ASSESSMENT: * See progress note from 02/20/19 for more background info, in short: * Pt receiving SQ basal bolus insulin regimen for hyperglycemia secondary to baseline DM (outpatient regimen on hold), COPD exacerbation on prednisone 60 mg daily and cefepime. * Patient is currently receiving an average of 102 units of insulin per day * 25 units of basal insulin * 77 units of prandial/correctional insulin * BSGs ranging 143 - 309 mg/dl over the past 24hrs * Changes needed to insulin regimen: * AM Fasting BSG = 178 mg/dl. This is in slightly above goal range for patient based on inpatient targets and co-morbidities. Will continue with Lantus 16 units. This is elevated most likely secondary to Solu-Medrol given earlier. Patient is on Lantus 8 units at home and received 25 units yesterday. HbA1C indicates poor control so therefore Lantus 16 units may be reasonable. Will not order a scale in the evening as blood sugars may be artificially elevated secondary to prednisone. Oftentimes, patients are able to self-correct overnight causing a low the next morning. * Post-prandial BSGs are elevated but did trend down after tightening of parameters. Will give NPH 0.4 units/kg since patient is on prednisone. Loosen to weight-based stress of 3 for Novolog parameters since most post-prandial elevations should be covered by NPH. * Total daily dose = ~100 units. PLAN FOR INPATIENT GLYCEMIC CONTROL: * Continuing Lantus 16 units SQ daily * LOOSENING correction factor to 15 mg/dl/unit * LOOSENING carb ratio to 1 unit per 5 grams CHO consumed * Continuing goal range of Low 110 mg/dL - High 140 mg/dL * Please note that the plan above was derived based on current level of insulin resistance and hospital stress. These recommendations are appropriate for inpatient admission only. Plan of care upon discharge will need to be reassessed to avoid potential outpatient hypo/hyperglycemia. Thank you.
--- NOTE | 2019-02-21 14:46 | Hospitalist Progress Note ---
Date of Service February 21, 2019 Assessment & Plan (1) COPD exacerbation: - Continues with diffuse wheezing and poor air exchange - has advanced COPD - Will continue Nebs and inhalers; Prednisone 60 mg daily and will taper pending clinical course - if not much improvement can consider IV dosing - Rocephin daily given QT prolongation - Mucinex BID, Montelukast 10 mg daily, Roflumilast 500 mcg daily, and Theophylline 400 mg daily Present on Admission?: Yes (2) Chronic respiratory failure with hypoxia: - Baseline supplemental O2 of 2-3 L; in setting of COPD and likely hypoventilation syndrome Present on Admission?: Yes (3) Acute on chronic combined systolic (congestive) and diastolic (congestive) heart failure: - Maybe a mild exacerbation given presentation but rather stable - Due to a slight bump in Cr will hold additional Lasix at this time and maintain Spironolactone 50 mg BID - Monitor renal function Present on Admission?: Yes (4) Anemia: H&H reduced but stable - no active signs of bleeding; transfuse if < 7 or symptomatic Present on Admission?: Yes (5) Septic thrombophlebitis: - Previous admission for lumbar abscess and 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 and bacteremia; H/O DVT/PE previously - S/P IVC Filter placed on previous admission - did not ask if this has been removed since - Continue Xarelto 20 mg daily Present on Admission?: Yes (6) QT prolongation: - Noted; Avoid QT prolonging agents (7) KATHLEEN (generalized anxiety disorder): - Chronic and stable - Continue Seroquel 200 mg HS, Mirtazapine 30 mg daily, Excitalopram 15 mg daily Present on Admission?: Yes (8) Diabetes: - With hyperglycemia - will worsen in setting of steroids - Continue Lantus 16 units daily, NPH 35 units daily, and SSI Present on Admission?: Yes (9) Hypothyroid: - STABLE - Continue Synthroid 25 mcg daily (10) Hypertension: - STABLE - Continue Spironolactone BID and Toprol XL 25 mg BID Present on Admission?: Yes (11) DVT prophylaxis: - Xarelto Disposition: Await clinical response; patient is curious about obtaining a scooter for home use Subjective Reports feeling a bit better today but not completely back to baseline. Continues to have diffuse wheezing on examination. Is chronically on O2 around 2-3 L at home. She reports limited activity at home due to difficulty getting around and normally doesn't leave the house. Looking to see if she qualifies for a scooter. Tolerating diet without issue. Review of Systems Constitutional: + fatigue; no fever and no chills Respiratory: + cough, + chest congestion, + dyspnea and + wheezing Cardiovascular: no chest pain, no palpitations, no lightheadedness and no edema Gastrointestinal: no abdominal pain, no nausea, no vomiting, no constipation and no diarrhea/loose stools Genitourinary: no dysuria Musculoskeletal: no body aches Integumentary: no rash Physical Exam Constitutional: well developed, well nourished and + obese Eyes: + anicteric sclerae Neck: trachea midline Respiratory: normal respiratory effort Auscultation: + wheezes (diffuse) Cardiovascular: RRR, no murmur, no edema Gastrointestinal (Abdomen): Inspection/Auscultation: normal bowel sounds Percussion/Palpation: abdomen soft; abdomen nontender Musculoskeletal: Head/Neck/Chest: normocephalic, head atraumatic and neck supple Skin: no rashes, warm and dry Neurologic: moves all extremities Psychiatric: A+Ox3, euthymic affect Results & Data Vital Signs (Past 12 Hours) Vital Signs Temp Pulse Resp BP Pulse Ox 02/21/19 11:24 68 18 97 02/21/19 07:28 37.1 C 64 20 117/68 100 02/21/19 07:14 66 18 100 02/21/19 03:37 61 18 97 (1) Anemia Anemia type: unspecified type Qualified Code(s): D64.9 - Anemia, unspecified (2) Diabetes Diabetes mellitus type: type 2 Diabetes mellitus prison insulin use: with prison use Diabetes mellitus complication status: without complication Qualified Code(s): E11.9 - Type 2 diabetes mellitus without complications; Z79.4 - penitentiary (current) use of insulin (3) Hypertension Hypertension type: essential hypertension Qualified Code(s): I10 - Essential (primary) hypertension
[2019-02-21] MEDS: cefTRIAXone SODIUM 2,000 MG in DEXTROSE 5% 50 ML IV SCH (16:40)
[2019-02-21] MEDS: MIRTAZAPINE TAB 15 MG TAB PO SCH (21:56)
[2019-02-21] MEDS: MONTELUKAST SODIUM 10 MG TABLET PO SCH (21:57)
[2019-02-21] MEDS: QUETIAPINE FUMARATE 200 MG TAB PO SCH (21:57)
[2019-02-22] MEDS: COUGH DROP (SUGAR FREE) LOZ 24 LOZ/1 BOX BUCCAL PRN
[2019-02-22] MEDS: ALBUT/IPRATROP 3MG/0.5MG NEB 3 ML VIAL NEB SCH ×6 (04:01→23:20)
[2019-02-22] MEDS: SUCRALFATE 1 GM TAB PO SCH ×4 (07:45→20:29)
[2019-02-22] MEDS: SPIRONOLACTONE 25 MG TAB PO SCH ×2 (07:45→16:47)
[2019-02-22] MEDS: ROFLUMILAST 500 MCG TAB PO SCH (07:46)
[2019-02-22] MEDS: POTASSIUM CHLORIDE 20 MEQ TABCR PO SCH (07:46)
[2019-02-22] MEDS: ESCITALOPRAM OXALATE 10 MG TAB PO SCH (07:46)
[2019-02-22] MEDS: PANTOprazole 40 MG TAB PO SCH ×2 (07:47→20:29)
[2019-02-22] MEDS: predniSONE 20 MG TAB PO SCH (07:47)
[2019-02-22] MEDS: MAGNESIUM OXIDE 400 MG TAB PO SCH ×2 (07:47→20:30)
[2019-02-22] MEDS: guaiFENesin 600 MG TABCR PO SCH ×2 (07:47→20:30)
[2019-02-22] MEDS: ATORVASTATIN 40 MG TAB PO SCH (07:47)
[2019-02-22] MEDS: THEOPHYLLINE 400 MG EXTENDED REL TAB PO SCH (07:48)
[2019-02-22] MEDS: RIVAROXABAN 20 MG TAB PO SCH (07:48)
[2019-02-22] MEDS: METOPROLOL SUCC 25MG EXT REL TAB PO SCH ×2 (07:48→20:29)
[2019-02-22] MEDS: LEVOTHYROXINE SODIUM 25 MCG TABLET PO SCH (07:48)
[2019-02-22] MEDS: INSULIN ASPART 100 UNITS/ML 3 ML PEN SC SCH ×4 (08:21→20:35)
[2019-02-22] MEDS: INSULIN GLARGINE SOLOSTAR 100 UNITS/ML 3 ML PEN SC SCH (08:22)
[2019-02-22] MEDS ORDERED: INSULIN HUMAN NPH SC SCH (09:00)
--- NOTE | 2019-02-22 13:11 | Pharmacy Report ---
Glycemic Control Progress Note - Date of Service February 22, 2019 - Scope Glycemic Pharmacist consulted for glycemic control to write orders per [facility] inpatient glycemic control protocol. - Objective Accuchecks BSG(last 24 hours):: 02/21/19 02/21/19 02/22/19 17:04 20:47 07:48 POC Glucose 279 H 263 H 122 H 02/22/19 11:53 POC Glucose 98 HbA1c:: Hemoglobin A1c 11.8 % (4.5-5.6) H 02/21/19 05:49 - Recent Pertinent Medications The patient is currently receiving: * Basal insulin: Lantus 16 units every 24 hours * Correctional Insulin: Novolog Correction per scale ACHS Goal Range: Low 110 mg/dL - High 140 mg/dL Correction Factor: 15 mg/dL/unit * Prandial insulin: Per carb ratio of 1 unit per 5 grams CHO consumed - Outpatient Anti-Diabetic Meds Lantus 8 units at bedtime metformin 500 mg BID - Assessment & Plan ASSESSMENT: * See progress note from 02/20/19 for more background info, in short: * Pt receiving SQ basal bolus insulin regimen for hyperglycemia secondary to baseline DM (outpatient regimen on hold),stress/infection (on Rocephin for COPD), and prednisone 60 mg daily. * Patient is currently receiving an average of 113 units of insulin per day * 51 units of basal insulin * 62 units of prandial/correctional insulin * BSGs ranging 173 - 279 mg/dl over the past 24hrs * Changes needed to insulin regimen: * AM Fasting BSG = 122 mg/dl. This is within goal range for patient based on inpatient targets and co-morbidities. Therefore Basal insulin will be continued. Dose may need decreased as fasting today is significantly less than yesterday. * Post-prandial BSGs are in range therefore no changes needed to CF/CR. They did trend upwards at dinnertime and bedtime - expected with prednisone dosing. Increase NPH dosing by 10%. * Total daily dose = ~120 units. PLAN FOR INPATIENT GLYCEMIC CONTROL: * Continuing Lantus 16 units SQ Daily * INCREASING NPH to 40 units SQ Daily * Continuing correction factor of 15 mg/dl/unit * Continuing carb ratio of 1 unit per 5 grams CHO consumed * Continuing goal range of Low 110 mg/dL - High 140 mg/dL RECOMMENDATIONS FOR DISCHARGE: * Patient's HbA1C indicates inadequate control. Consider the following * increasing Lantus - currently tolerating 16 units but that may decrease so monitor. * increasing metformin to 1 gm PO BID. Thank you.
[2019-02-22] MEDS: cefTRIAXone SODIUM 2,000 MG in DEXTROSE 5% 50 ML IV SCH (16:44)
--- NOTE | 2019-02-22 18:15 | Hospitalist Progress Note ---
Date of Service February 22, 2019 Assessment & Plan (1) COPD exacerbation: - Continues with diffuse wheezing but improving and more expiratory; improving aeration diffusely - Will continue Nebs and inhalers; Prednisone 60 mg daily and will taper pending clinical course, plan tomorrows dose at 60 mg and likely taper from there - Rocephin daily given QT prolongation - Mucinex BID, Montelukast 10 mg daily, Roflumilast 500 mcg daily, and Theophylline 400 mg daily Present on Admission?: Yes (2) Chronic respiratory failure with hypoxia: - Baseline supplemental O2 of 2-3 L; in setting of COPD and likely hypoven tilation syndrome Present on Admission?: Yes (3) Acute on chronic combined systolic (congestive) and diastolic (congestive) heart failure: - Maybe a mild exacerbation given presentation but rather stable; seems rather resolved at this time - Due to a slight bump in Cr will hold additional Lasix at this time and ma intain Spironolactone 50 mg BID - Monitor renal function Present on Admission?: Yes (4) Anemia: H&H reduced but stable - no active signs of bleeding; transfuse if < 7 or symptomatic Present on Admission?: Yes (5) Septic thrombophlebitis: - Previous admission for lumbar abscess and 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 and bacteremia; H/O DVT/PE previously - S/P IVC Filter placed on previous admission - did not ask if this has been removed since - Continue Xarelto 20 mg daily Present on Admission?: Yes (6) QT prolongation: - Noted; Avoid QT prolonging agents (7) KATHLEEN (generalized anxiety disorder): - Chronic and stable - Continue Seroquel 200 mg HS, Mirtazapine 30 mg daily, Excitalopram 15 mg daily (8) Diabetes: - With hyperglycemia - will worsen in setting of steroids - Continue Lantus 16 units daily, NPH 35 units daily, and SSI (9) Hypothyroid: - STABLE - Continue Synthroid 25 mcg daily (10) Hypertension: - STABLE - Continue Spironolactone BID and Toprol XL 25 mg BID (11) DVT prophylaxis: - Xarelto Disposition: Await clinical response; patient is curious about obtaining a scooter for home use; PT/OT - SNF vs home? Subjective Reports her breathing feels even better today. Was up with therapy and states that exhausted her and does induce SOB. States that is common at home as well an d normally only ambulates short distances due to that. She still had diffuse wheezing but is improved compared to yesterday and getting better aeration. She remains at a - 5 L and does not appear volume overloaded. She verbalizes no new complaints Review of Systems Constitutional: + fatigue; no fever and no chills Respiratory: + cough, + dyspnea on exertion and + wheezing Cardiovascular: no chest pain and no palpitations Gastrointestinal: no abdominal pain, no nausea, no vomiting, no constipation and no diarrhea/loose stools Genitourinary: no dysuria Musculoskeletal: no muscle weakness and no body aches Integumentary: no rash Physical Exam Constitutional: well developed, well nourished and + obese Eyes: + anicteric sclerae Neck: trachea midline Respiratory: normal respiratory effort Auscultation: + wheezes (diffuse) Cardiovascular: RRR, no murmur, no edema Gastrointestinal (Abdomen): Inspection/Auscultation: normal bowel sounds Percussion/Palpation: abdomen soft; abdomen nontender Musculoskeletal: Head/Neck/Chest: normocephalic, head atraumatic and neck supple Skin: no rashes, warm and dry Neurologic: moves all extremities Psychiatric: A+Ox3, euthymic affect Results & Data Vital Signs (Past 12 Hours) Vital Signs Temp Pulse Pulse Resp BP Pulse Ox 02/22/19 15:54 37.2 C 71 18 145/78 H 94 02/22/19 14:29 94 H 18 94 02/22/19 11:11 77 18 92 02/22/19 08:13 36.8 C 96 H 18 138/64 96 02/22/19 07:44 37.1 C 59 L 20 127/71 96 02/22/19 07:12 18 96 (1) Anemia Anemia type: unspecified type Qualified Code(s): D64.9 - Anemia, unspecified (2) Diabetes Diabetes mellitus type: type 2 Diabetes mellitus termite control representative insulin use: with termite control representative use Diabetes mellitus complication status: without complication Qualified Code(s): E11.9 - Type 2 diabetes mellitus without complications; Z79.4 - predatory animal exterminator (current) use of insulin (3) Hypertension Hypertension type: essential hypertension Qualified Code(s): I10 - Essential (primary) hypertension
[2019-02-22] MEDS: MIRTAZAPINE TAB 15 MG TAB PO SCH (20:31)
[2019-02-22] MEDS: QUETIAPINE FUMARATE 200 MG TAB PO SCH (20:31)
[2019-02-22] MEDS: MONTELUKAST SODIUM 10 MG TABLET PO SCH (20:32)
[2019-02-23] MEDS: INSULIN ASPART 100 UNITS/ML 3 ML PEN SC SCH ×6 (00:01→21:35)
[2019-02-23] MEDS: ALBUT/IPRATROP 3MG/0.5MG NEB 3 ML VIAL NEB SCH ×6 (03:25→22:55)
[2019-02-23 05:58] LABS: Hematocrit (blood only) 30.1 % (37-47); Hemoglobin 9.2 g/dL (12.0-16.0); Mean Corpuscular Hgb Conc 30.6 g/dL (32-36); Mean Corpuscular Volume 78.4 fL (80-100); Mean Platelet Volume 8.6 fL (7.4-10.4); Platelet Count 273 K/uL (130-400); RDW Coefficient of Variation 15.2 % (11.5-14.5); RDW Standard Deviation 44.2 fL (36.4-46.3); Red Blood Count 3.84 M/uL (4.2-5.4); White Blood Count 10.61 K/uL (4.8-10.8)
[2019-02-23 06:32] LABS: BUN Creatinine Ratio 23.5 (10-20); Est GFR (African American) 59.2; Est GFR (Non-African American) 51.1
[2019-02-23] MEDS: INSULIN GLARGINE SOLOSTAR 100 UNITS/ML 3 ML PEN SC SCH (08:34)
[2019-02-23] MEDS: ESCITALOPRAM OXALATE 10 MG TAB PO SCH (08:45)
[2019-02-23] MEDS: ATORVASTATIN 40 MG TAB PO SCH (08:45)
[2019-02-23] MEDS: INSULIN HUMAN NPH SC SCH (08:45)
[2019-02-23] MEDS: SUCRALFATE 1 GM TAB PO SCH ×4 (08:46→21:38)
[2019-02-23] MEDS: METOPROLOL SUCC 25MG EXT REL TAB PO SCH ×2 (08:46→21:44)
[2019-02-23] MEDS: SPIRONOLACTONE 25 MG TAB PO SCH ×2 (08:46→16:35)
[2019-02-23] MEDS: POTASSIUM CHLORIDE 20 MEQ TABCR PO SCH (08:47)
[2019-02-23] MEDS: PANTOprazole 40 MG TAB PO SCH ×2 (08:47→21:39)
[2019-02-23] MEDS: ROFLUMILAST 500 MCG TAB PO SCH (08:48)
[2019-02-23] MEDS: predniSONE 20 MG TAB PO SCH (08:48)
[2019-02-23] MEDS: RIVAROXABAN 20 MG TAB PO SCH (08:49)
[2019-02-23] MEDS: THEOPHYLLINE 400 MG EXTENDED REL TAB PO SCH (08:49)
[2019-02-23] MEDS: guaiFENesin 600 MG TABCR PO SCH ×2 (08:49→21:38)
[2019-02-23] MEDS: LEVOTHYROXINE SODIUM 25 MCG TABLET PO SCH (08:49)
[2019-02-23] MEDS: MAGNESIUM OXIDE 400 MG TAB PO SCH ×2 (08:50→21:38)
[2019-02-23] MEDS: ALBUTEROL 0.083% NEBU SOLN 3 ML VIAL NEB PRN (08:59)
--- NOTE | 2019-02-23 15:02 | Pharmacy Report ---
Glycemic Control Progress Note - Date of Service February 23, 2019 - Scope Glycemic Pharmacist consulted for glycemic control to write orders per [facility] inpatient glycemic control protocol. - Objective Accuchecks BSG(last 24 hours):: 02/22/19 02/22/19 02/22/19 16:39 20:21 20:23 Glucose POC Glucose 274 H 309 H* 303 H* 02/22/19 02/23/19 02/23/19 23:51 04:06 05:44 Glucose 139 H POC Glucose 115 H 173 H 02/23/19 02/23/19 07:50 11:38 Glucose POC Glucose 100 H 120 H HbA1c:: Hemoglobin A1c 11.8 % (4.5-5.6) H 02/21/19 05:49 - Recent Pertinent Medications The patient is currently receiving: * Basal insulin: Lantus 16 units every 24 hours + NPH 40 units SQ daily * Correctional Insulin: Novolog Correction per scale ACHS Goal Range: Low 110 mg/dL - High 140 mg/dL Correction Factor: 12 mg/dL/unit * Prandial insulin: Per carb ratio of 1 unit per 5 grams CHO consumed - Outpatient Anti-Diabetic Meds Lantus 8 units HS plus metformin - Assessment & Plan ASSESSMENT: * See progress note from 02/20/19 for more background info, in short: * Pt receiving SQ basal bolus insulin regimen for hyperglycemia secondary to baseline DM (outpatient regimen on hold),stress/infection (currently on Rocep hin for COPD exacerbation), and currently on prednisone 60 mg daily * Patient is currently receiving an average of 102 units of insulin per day * 46 units of basal insulin * 46 units of prandial/correctional insulin * BSGs ranging 98 - 309 mg/dl over the past 24hrs * Changes needed to insulin regimen: * AM Fasting BSG = 100 mg/dl. This is slightly below goal range for patient based on inpatient targets and co-morbidities. Therefore Basal insulin will be decreased slightly to 14 units. Fasting blood sugar is trending downwards. * Post-prandial BSGs trended upwards for dinner and bedtime. This is secondary to prednisone. Increased NPH to 46 units or 0.6 units/kg. Last night CF had been tightened. Hesitant to tighten carbohydrate ratio as patient trends downwards at lunch. * Total daily dose = ~100 units. PLAN FOR INPATIENT GLYCEMIC CONTROL: * DECREASING Lantus to 14 units SQ qAM plus INCREASING NPH to 46 units SQ qAM * Continuing correction factor of 12 mg/dl/unit * Continuing carb ratio of 1 unit per 5 grams CHO consumed * Continuing goal range of Low 110 mg/dL - High 140 mg/dL RECOMMENDATIONS FOR DISCHARGE: * see recommendations from yesterday. * Please note that the plan above was derived based on current level of insulin resistance and hospital stress. These recommendations are appropriate for inpatient admission only. Plan of care upon discharge will need to be reassessed to avoid potential outpatient hypo/hyperglycemia. Thank you.
--- NOTE | 2019-02-23 15:27 | Hospitalist Progress Note ---
Date of Service February 23, 2019 Assessment & Plan (1) COPD exacerbation: - Continues with diffuse exp. wheezing but improving; improving aeration diffusely - Will continue Nebs and inhalers; Prednisone 40 mg daily and will taper - Rocephin daily given QT prolongation - Mucinex BID, Montelukast 10 mg daily, Roflumilast 500 mcg daily, and Theophylline 400 mg daily (2) Chronic respiratory failure with hypoxia: - Baseline supplemental O2 of 2-3 L; in setting of COPD and likely hypoventilation syndrome (3) Acute on chronic combined systolic (congestive) and diastolic (congestive) heart failure: - Maybe a mild exacerbation given presentation but rather stable; seems rather resolved at this time - Maintain Spironolactone 50 mg BID - Monitor renal function (4) Anemia: H&H reduced but stable - no active signs of bleeding; transfuse if < 7 or symptomatic (5) Septic thrombophlebitis: - Previous admission for lumbar abscess and 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 and bacteremia; H/O DVT/PE previously - S/P IVC Filter placed on previous admission - did not ask if this has been removed since - Continue Xarelto 20 mg daily (6) QT prolongation: - Noted; Avoid QT prolonging agents when able (7) KATHLEEN (generalized anxiety disorder): - Chronic and stable - Continue Seroquel 200 mg HS, Mirtazapine 30 mg daily, Excitalopram 15 mg daily (8) Diabetes: - With hyperglycemia - will worsen in setting of steroids - Continue Lantus 16 units daily, NPH 35 units daily, and SSI (9) Hypothyroid: - STABLE - Continue Synthroid 25 mcg daily (10) Hypertension: - STABLE - Continue Spironolactone BID and Toprol XL 25 mg BID (11) DVT prophylaxis: - Xarelto Disposition: Await clinical response; possible D/C to home in 1-2 days Subjective Reports that her breathing continues to improve daily. Still with diffuse expiratory wheeze and states she had a lot of coughing this morning but feels like she is getting better through the day. Feels like she can return home as she does have home health assistance. Tolerating a diet without issue. Largely sleep through the day even at home. Reports getting adequate sleep while hospitalized Review of Systems Constitutional: no fever and no chills Respiratory: + cough, + dyspnea on exertion and + wheezing Cardiovascular: no chest pain, no palpitations and no lightheadedness Gastrointestinal: no abdominal pain, no nausea, no vomiting, no constipation and no diarrhea/loose stools Genitourinary: no dysuria Musculoskeletal: + back pain Physical Exam Constitutional: well developed, well nourished and + obese Eyes: + anicteric sclerae Neck: trachea midline Respiratory: normal respiratory effort Auscultation: + wheezes (diffuse) improving aeration Cardiovascular: RRR, no murmur, no edema Gastrointestinal (Abdomen): Inspection/Auscultation: normal bowel sounds Percussion/Palpation: abdomen soft; abdomen nontender Musculoskeletal: Head/Neck/Chest: normocephalic, head atraumatic and neck supple Skin: no rashes, warm and dry Neurologic: moves all extremities Psychiatric: A+Ox3, euthymic affect Results & Data Vital Signs (Past 12 Hours) Vital Signs Temp Pulse Resp BP Pulse Ox 02/23/19 15:13 82 22 93 02/23/19 14:37 95 02/23/19 11:14 74 20 100 02/23/19 08:59 71 22 95 02/23/19 08:04 36.8 C 58 L 20 138/72 100 02/23/19 07:10 56 L 18 98 02/23/19 03:26 61 18 99 (1) Diabetes Diabetes mellitus complication status: without complication Diabetes mellitus prison insulin use: with termite treater helper use Diabetes mellitus type: type 2 Qualified Code(s): E11.9 - Type 2 diabetes mellitus without complications; Z79.4 - terminal system operator (current) use of insulin (2) Anemia Anemia type: unspecified type Qualified Code(s): D64.9 - Anemia, unspecified (3) Hypertension Hypertension type: essential hypertension Qualified Code(s): I10 - Essential (primary) hypertension
[2019-02-23] MEDS: cefTRIAXone SODIUM 2,000 MG in DEXTROSE 5% 50 ML IV SCH (16:29)
[2019-02-23] MEDS: QUETIAPINE FUMARATE 200 MG TAB PO SCH (21:40)
[2019-02-23] MEDS: MONTELUKAST SODIUM 10 MG TABLET PO SCH (21:40)
[2019-02-23] MEDS: MIRTAZAPINE TAB 15 MG TAB PO SCH (21:40)
[2019-02-24] MEDS ORDERED: INSULIN ASPART 100 UNITS/ML 3 ML PEN SC SCH
[2019-02-24] MEDS: ALBUT/IPRATROP 3MG/0.5MG NEB 3 ML VIAL NEB SCH ×6 (03:13→23:13)
[2019-02-24] MEDS: MAGNESIUM OXIDE 400 MG TAB PO SCH ×2 (07:34→20:20)
[2019-02-24] MEDS: SUCRALFATE 1 GM TAB PO SCH ×4 (07:35→20:21)
[2019-02-24] MEDS: guaiFENesin 600 MG TABCR PO SCH ×2 (07:35→20:18)
[2019-02-24] MEDS: METOPROLOL SUCC 25MG EXT REL TAB PO SCH ×2 (07:35→20:22)
[2019-02-24] MEDS: LEVOTHYROXINE SODIUM 25 MCG TABLET PO SCH (07:35)
[2019-02-24] MEDS: THEOPHYLLINE 400 MG EXTENDED REL TAB PO SCH (07:35)
[2019-02-24] MEDS: POTASSIUM CHLORIDE 20 MEQ TABCR PO SCH (07:35)
[2019-02-24] MEDS: ESCITALOPRAM OXALATE 10 MG TAB PO SCH (07:35)
[2019-02-24] MEDS: predniSONE 20 MG TAB PO SCH (07:36)
[2019-02-24] MEDS: PANTOprazole 40 MG TAB PO SCH ×2 (07:36→20:21)
[2019-02-24] MEDS: RIVAROXABAN 20 MG TAB PO SCH (07:36)
[2019-02-24] MEDS: ROFLUMILAST 500 MCG TAB PO SCH (07:37)
[2019-02-24] MEDS: SPIRONOLACTONE 25 MG TAB PO SCH ×2 (07:37→17:25)
[2019-02-24] MEDS: ATORVASTATIN 40 MG TAB PO SCH (07:59)
[2019-02-24] MEDS: INSULIN GLARGINE SOLOSTAR 100 UNITS/ML 3 ML PEN SC SCH (08:37)
[2019-02-24] MEDS: INSULIN HUMAN NPH SC SCH (08:38)
[2019-02-24] MEDS: INSULIN ASPART 100 UNITS/ML 3 ML PEN SC SCH ×4 (08:39→20:25)
--- NOTE | 2019-02-24 15:11 | Hospitalist Progress Note ---
Date of Service February 24, 2019 Assessment & Plan (1) COPD exacerbation: - Continues with diffuse exp. wheezing but improving; improving aeration diffusely - Will continue Nebs and inhalers; Prednisone 40 mg daily and will continue taper - Rocephin daily given QT prolongation - will D/C after today's dosing - Mucinex BID, Montelukast 10 mg daily, Roflumilast 500 mcg daily, and Theophylline 400 mg daily (2) Shingles: - Reports H/O shingles in the past with intermittent recurrences in similar distribution - appears approx. L4 dermatomal distribution - Valtrex 1 g TID x 7 days; reports burning sensation but rather minimal discomfort at this time (3) Chronic respiratory failure with hypoxia: - Baseline supplemental O2 of 2-3 L; in setting of COPD and likely hypoventilation syndrome (4) Acute on chronic combined systolic (congestive) and diastolic (congestive) heart failure: - Maybe a mild exacerbation given presentation but rather stable; seems rather resolved at this time - Maintain Spironolactone 50 mg BID - Monitor renal function (5) Anemia: H&H reduced but stable - no active signs of bleeding; transfuse if < 7 or symptomatic (6) Septic thrombophlebitis: - Previous admission for lumbar abscess and 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 and bacteremia; H/O DVT/PE previously - S/P IVC Filter placed on previous admission - did not ask if this has been removed since - Continue Xarelto 20 mg daily (7) QT prolongation: - Noted; Avoid QT prolonging agents when able (8) KATHLEEN (generalized anxiety disorder): - Chronic and stable - Continue Seroquel 200 mg HS, Mirtazapine 30 mg daily, Excitalopram 15 mg daily (9) Diabetes: - With hyperglycemia - will worsen in setting of steroids but currently tapering down - Continue Lantus 16 units daily, NPH 35 units daily, and SSI (10) Hypothyroid: - STABLE - Continue Synthroid 25 mcg daily (11) Hypertension: - STABLE - Continue Spironolactone BID and Toprol XL 25 mg BID (12) DVT prophylaxis: - Xarelto Disposition: Await clinical response; possible D/C to home in 1-2 days Subjective Reports breathing is a little bit better today. Not yet to baseline but improving. Reports feeling weak but not interested in rehab at this time. Some vesicular lesions noted to R hip/buttocks on wound assessment. Pt states she has H/O shingles in this distribution and it flairs intermittently. Does report associated burning sensation but not severe pain. Will start Valtrex x 7 days Review of Systems Constitutional: + weakness; no fever and no chills Respiratory: + cough, + dyspnea on exertion and + wheezing; no sputum production Cardiovascular: no chest pain, no palpitations, no lightheadedness and no edema Gastrointestinal: no abdominal pain, no nausea, no vomiting, no constipation and no diarrhea/loose stools Genitourinary: no dysuria Integumentary: + lesions (burning along R buttocks/hip region) Physical Exam Constitutional: well developed, well nourished and + obese Eyes: + anicteric sclerae Neck: trachea midline Respiratory: normal respiratory effort Auscultation: + wheezes (diffuse) improving aeration diffusely Cardiovascular: RRR, no murmur, no edema Gastrointestinal (Abdomen): Inspection/Auscultation: normal bowel sounds Percussion/Palpation: abdomen soft; abdomen nontender Musculoskeletal: Head/Neck/Chest: normocephalic, head atraumatic and neck supple Skin: two small patches of erythematous bases with vesicular lesions without rupture approx. L4 dermatomal distribution Neurologic: moves all extremities Psychiatric: A+Ox3, euthymic affect Results & Data Vital Signs (Past 12 Hours) Vital Signs Pulse Resp Pulse Ox 02/24/19 14:56 74 18 97 02/24/19 11:22 63 20 98 02/24/19 07:30 71 20 98 02/24/19 03:14 72 18 98 PG Care Time/CCT Total # of Minutes Spent Total Time Spent with Patient: Total time spent is greater than 50% in coordination of care (as documented) at patient's floor/unit and/or counseling patient: (1) Diabetes Diabetes mellitus complication status: without complication Diabetes mellitus exterminator insulin use: with exterminator use Diabetes mellitus type: type 2 Qualified Code(s): E11.9 - Type 2 diabetes mellitus without complications; Z79.4 - superintendent container terminal (current) use of insulin (2) Anemia Anemia type: unspecified type Qualified Code(s): D64.9 - Anemia, unspecified (3) Hypertension Hypertension type: essential hypertension Qualified Code(s): I10 - Essential (primary) hypertension
[2019-02-24] MEDS: cefTRIAXone SODIUM 2,000 MG in DEXTROSE 5% 50 ML IV SCH (15:40)
[2019-02-24] MEDS: COUGH DROP (SUGAR FREE) LOZ 24 LOZ/1 BOX BUCCAL PRN (20:17)
[2019-02-24] MEDS: VALACYCLOVIR HCL 500 MG TABLET PO SCH (20:18)
[2019-02-24] MEDS: MIRTAZAPINE TAB 15 MG TAB PO SCH (20:19)
[2019-02-24] MEDS: MONTELUKAST SODIUM 10 MG TABLET PO SCH (20:20)
[2019-02-24] MEDS: QUETIAPINE FUMARATE 200 MG TAB PO SCH (20:20)
[2019-02-25] MEDS: ALBUT/IPRATROP 3MG/0.5MG NEB 3 ML VIAL NEB SCH ×6 (03:37→22:59)
[2019-02-25 06:08] LABS: Hematocrit (blood only) 30.4 % (37-47); Hemoglobin 9.3 g/dL (12.0-16.0); Mean Corpuscular Hgb Conc 30.6 g/dL (32-36); Mean Corpuscular Volume 77.6 fL (80-100); Mean Platelet Volume 8.7 fL (7.4-10.4); Platelet Count 349 K/uL (130-400); RDW Coefficient of Variation 15.2 % (11.5-14.5); RDW Standard Deviation 43.7 fL (36.4-46.3); Red Blood Count 3.92 M/uL (4.2-5.4); White Blood Count 11.63 K/uL (4.8-10.8)
[2019-02-25 06:36] LABS: BUN Creatinine Ratio 20.2 (10-20); Calcium 9.3 mg/dl (8.5-10.1); Creatinine Clr Calc Pharmacy 44.7 ml/min; Est GFR (African American) 53.2; Est GFR (Non-African American) 45.9; Potassium 4.2 mmol/L (3.5-5.1)
[2019-02-25] MEDS: SUCRALFATE 1 GM TAB PO SCH ×4 (08:08→21:05)
[2019-02-25] MEDS: ROFLUMILAST 500 MCG TAB PO SCH (08:09)
[2019-02-25] MEDS: POTASSIUM CHLORIDE 20 MEQ TABCR PO SCH (08:09)
[2019-02-25] MEDS: ESCITALOPRAM OXALATE 10 MG TAB PO SCH (08:09)
[2019-02-25] MEDS: SPIRONOLACTONE 25 MG TAB PO SCH ×2 (08:09→18:40)
[2019-02-25] MEDS: THEOPHYLLINE 400 MG EXTENDED REL TAB PO SCH (08:10)
[2019-02-25] MEDS: MAGNESIUM OXIDE 400 MG TAB PO SCH ×2 (08:10→21:02)
[2019-02-25] MEDS: guaiFENesin 600 MG TABCR PO SCH ×2 (08:10→21:03)
[2019-02-25] MEDS: ATORVASTATIN 40 MG TAB PO SCH (08:10)
[2019-02-25] MEDS: predniSONE 20 MG TAB PO SCH (08:10)
[2019-02-25] MEDS: LEVOTHYROXINE SODIUM 25 MCG TABLET PO SCH (08:10)
[2019-02-25] MEDS: PANTOprazole 40 MG TAB PO SCH ×2 (08:10→21:05)
[2019-02-25] MEDS: RIVAROXABAN 20 MG TAB PO SCH (08:11)
[2019-02-25] MEDS: METOPROLOL SUCC 25MG EXT REL TAB PO SCH ×2 (08:11→21:04)
[2019-02-25] MEDS: VALACYCLOVIR HCL 500 MG TABLET PO SCH ×2 (08:11→21:04)
[2019-02-25] MEDS: INSULIN GLARGINE SOLOSTAR 100 UNITS/ML 3 ML PEN SC SCH (08:19)
[2019-02-25] MEDS: INSULIN HUMAN NPH SC SCH (08:19)
[2019-02-25] MEDS: INSULIN ASPART 100 UNITS/ML 3 ML PEN SC SCH ×4 (08:20→21:08)
--- NOTE | 2019-02-25 10:08 | Pharmacy Report ---
Pharmacy Glycemic Short Note 2 - Date of Service February 25, 2019 - Glycemic Short BSG Results (Last 24 hours): 02/24/19 02/24/19 02/24/19 11:36 16:35 16:36 Glucose POC Glucose 99 300 H 291 H 02/24/19 02/25/19 02/25/19 20:18 05:36 07:50 Glucose 150 H POC Glucose 230 H 165 H OUTPATIENT ANTIDIABETIC REGIMEN: * Lantus 8 units HS * Metformin 500mg BID ASSESSMENT: * Blood sugars not at goal all the time, but are better controlled over past 48 hours. Blood sugars tend to fall from breakfast to lunch then rise from lunch to dinner and dinner to bedtime. I will try changing patient to tighter CR for lunch and dinner and bedtime to help with this trend. * unsure if this is a normal trend for her or d/t prednisone, but NPH should be covering those effects * Pt remains on Prednisone 40mg PO Daily for COPD Exacerbation, continue NPH dose at this time, will decrease with decreases in Prednisone. * Patient completed course of IV Rocephin for COPD Exacerbation; Valtrex started yesterday for shingles PLAN FOR INPATIENT GLYCEMIC CONTROL: * Hold outpatient oral diabetes medications * Basal insulin * Lantus 14 units SQ Daily * Bolus insulin * NovoLog per scale ACHS or Q6hrs while NPO * Goal Range: Low 110 mg/dL - High 140 mg/dL * Correction Factor: 12 mg/dL/unit * Nutritional / Prandial insulin per carb ratio of 1 unit per 5 grams CHO consumed with BREAKFAST * CHANGE: Nutritional / Prandial insulin per carb ratio of 1 unit per 4 grams CHO consumed with LUNCH, DINNER, BEDTIME PLAN FOR DISCHARGE: * A1C 11.8% - likely not enough insulin given at home. Would consider increasing Lantus to 20 units daily at home, titrate to goal and follow-up with outpatient provider (although recommendations are difficult to make while patient is on steroid as inpatient)
--- NOTE | 2019-02-25 13:52 | Hospitalist Progress Note ---
Date of Service February 25, 2019 Assessment & Plan (1) COPD exacerbation: - Continues with diffuse exp. wheezing but improving; improving aeration diffusely - Will continue Nebs and inhalers; Prednisone 40 mg daily and possibly taper tomorrow - Rocephin daily given QT prolongation course completed - Mucinex BID, Montelukast 10 mg daily, Roflumilast 500 mcg daily, and Theophylline 400 mg daily (2) Shingles: - Reports H/O shingles in the past with intermittent recurrences in similar distribution - appears approx. L4 dermatomal distribution - Valtrex 1 g TID x 7 days; reports burning sensation slightly worsened today but rather minimal discomfort at this time (3) Chronic respiratory failure with hypoxia: - Baseline supplemental O2 of 2-3 L; in setting of COPD and likely hypoventilation syndrome (4) Acute on chronic combined systolic (congestive) and diastolic (congestive) heart failure: - Maybe a mild exacerbation given presentation but rather stable; seems rather resolved at this time - Maintain Spironolactone 50 mg BID - Monitor renal function (5) Anemia: - H&H reduced but stable - no active signs of bleeding; transfuse if < 7 or symptomatic (6) Septic thrombophlebitis: - Previous admission for lumbar abscess and 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 and bacteremia; H/O DVT/PE previously - S/P IVC Filter placed on previous admission - did not ask if this has been removed since - Continue Xarelto 20 mg daily (7) QT prolongation: - Noted; Avoid QT prolonging agents when able (8) KATHLEEN (generalized anxiety disorder): - Chronic and stable - Continue Seroquel 200 mg HS, Mirtazapine 30 mg daily, Excitalopram 15 mg daily (9) Diabetes: - With hyperglycemia - will worsen in setting of steroids but currently tapering down - Continue Lantus 16 units daily, NPH 35 units daily, and SSI (10) Hypothyroid: - STABLE - Continue Synthroid 25 mcg daily (11) Hypertension: - STABLE - Continue Spironolactone BID and Toprol XL 25 mg BID (12) DVT prophylaxis: - Xarelto Disposition: Plans to return home however will not have caregiver support until Thursday; given her high risk for readmission given her advanced COPD and her poor endurance the safest option would be to D/C on Thursday so she has support at home during her recovery stage - states she tries not to get out of bed on days when she doesn't have help due to significant deconditioning and ALVAREZ. Subjective Reports doing well today. Not yet at baseline breathing but feels she is getting close. Had some SOB with walking to the bathroom which she states is normal for her and occurs at home as well. Continues to plan to return home and not do rehab. Does have assistance at home however will not have help until Thursday night. Continues with diffuse wheezing on assessment today. Some increase in the vesiscular appearance of the zoster on her R thigh which is more bothersome to her today Review of Systems Constitutional: + weakness; no fever and no chills Respiratory: + cough, + dyspnea on exertion and + wheezing; no sputum production Cardiovascular: no chest pain and no palpitations Gastrointestinal: no abdominal pain, no nausea, no vomiting, no constipation and no diarrhea/loose stools Genitourinary: no dysuria Integumentary: + lesions (burning along R buttocks/hip region) Physical Exam Constitutional: well developed, well nourished and + obese Eyes: + anicteric sclerae Neck: trachea midline Respiratory: normal respiratory effort Auscultation: + wheezes (diffuse; expiratory) Cardiovascular: RRR, no murmur, no edema Gastrointestinal (Abdomen): Inspection/Auscultation: normal bowel sounds Percussion/Palpation: abdomen soft; abdomen nontender Musculoskeletal: Head/Neck/Chest: normocephalic, head atraumatic and neck supple Skin: + rash (3 erythematous bases with small vesciles along approx. L4 dermatome) Neurologic: moves all extremities Psychiatric: A+Ox3, euthymic affect Results & Data Vital Signs (Past 12 Hours) Vital Signs Temp Pulse Pulse Resp BP Pulse Ox 02/25/19 10:59 69 18 97 02/25/19 08:08 60 149/86 H 02/25/19 06:55 58 L 18 99 02/25/19 06:00 37.0 C 59 L 20 133/82 97 02/25/19 03:37 60 16 98 PG Care Time/CCT Total # of Minutes Spent Total Time Spent with Patient: Total time spent is greater than 50% in coordination of care (as documented) at patient's floor/unit and/or counseling p atient: (1) Anemia Anemia type: unspecified type Qualified Code(s): D64.9 - Anemia, unspecified (2) Diabetes Diabetes mellitus type: type 2 Diabetes mellitus truck terminal manager insulin use: with mcc use Diabetes mellitus complication status: without complication Qualified Code(s): E11.9 - Type 2 diabetes mellitus without complications; Z79.4 - care home (current) use of insulin (3) Hypertension Hypertension type: essential hypertension Qualified Code(s): I10 - Essential (primary) hypertension
[2019-02-25] MEDS ORDERED: COUGH DROP (SUGAR FREE) LOZ 24 LOZ/1 BOX BUCCAL STA (20:15)
[2019-02-25] MEDS: MONTELUKAST SODIUM 10 MG TABLET PO SCH (21:02)
[2019-02-25] MEDS: QUETIAPINE FUMARATE 200 MG TAB PO SCH (21:03)
[2019-02-25] MEDS: MIRTAZAPINE TAB 15 MG TAB PO SCH (21:06)
[2019-02-26] MEDS: ALBUT/IPRATROP 3MG/0.5MG NEB 3 ML VIAL NEB SCH ×6 (04:24→23:13)
[2019-02-26] MEDS: INSULIN ASPART 100 UNITS/ML 3 ML PEN SC SCH ×5 (08:42→23:49)
[2019-02-26] MEDS: INSULIN GLARGINE SOLOSTAR 100 UNITS/ML 3 ML PEN SC SCH (08:46)
[2019-02-26] MEDS: INSULIN HUMAN NPH SC SCH (08:48)
[2019-02-26] MEDS: SPIRONOLACTONE 25 MG TAB PO SCH ×2 (08:58→17:45)
[2019-02-26] MEDS: SUCRALFATE 1 GM TAB PO SCH ×4 (08:58→20:14)
[2019-02-26] MEDS: ROFLUMILAST 500 MCG TAB PO SCH (08:59)
[2019-02-26] MEDS: POTASSIUM CHLORIDE 20 MEQ TABCR PO SCH (08:59)
[2019-02-26] MEDS: predniSONE 20 MG TAB PO SCH (09:00)
[2019-02-26] MEDS: ESCITALOPRAM OXALATE 10 MG TAB PO SCH (09:01)
[2019-02-26] MEDS: ATORVASTATIN 40 MG TAB PO SCH (09:03)
[2019-02-26] MEDS: THEOPHYLLINE 400 MG EXTENDED REL TAB PO SCH (09:05)
[2019-02-26] MEDS: LEVOTHYROXINE SODIUM 25 MCG TABLET PO SCH (09:05)
[2019-02-26] MEDS: PANTOprazole 40 MG TAB PO SCH ×2 (09:05→20:14)
[2019-02-26] MEDS: guaiFENesin 600 MG TABCR PO SCH ×2 (09:09→20:13)
[2019-02-26] MEDS: MAGNESIUM OXIDE 400 MG TAB PO SCH ×2 (09:09→20:15)
[2019-02-26] MEDS: VALACYCLOVIR HCL 500 MG TABLET PO SCH ×2 (09:11→20:15)
[2019-02-26] MEDS: RIVAROXABAN 20 MG TAB PO SCH (09:12)
--- NOTE | 2019-02-26 10:47 | Pharmacy Report ---
Glycemic Control Progress Note - Date of Service February 26, 2019 - Scope Glycemic Pharmacist consulted for glycemic control to write orders per [facility] inpatient glycemic control protocol. - Objective Accuchecks BSG(last 24 hours):: 02/25/19 02/25/19 02/25/19 11:56 17:01 20:24 POC Glucose 77 195 H 310 H* 02/26/19 07:51 POC Glucose 94 HbA1c:: Hemoglobin A1c 11.8 % (4.5-5.6) H 02/21/19 05:49 - Recent Pertinent Medications The patient is currently receiving: * Basal insulin: Lantus 14 units every 24 hours * Correctional Insulin: Novolog Correction per scale ACHS Goal Range: Low 110 mg/dL - High 140 mg/dL Correction Factor: 12 mg/dL/unit * Prandial insulin: Per carb ratio of 1 unit per 5 (FOR BREAKFAST); 3 OTHERWISE grams CHO consumed - Outpatient Anti-Diabetic Meds Lantus 8 units HS + metformin 500 mg BID - Assessment & Plan ASSESSMENT: * See progress note from 02/20/19 for more background info, in short: * Pt receiving SQ basal bolus insulin regimen for hyperglycemia secondary to baseline DM (outpatient regimen on hold),stress/infection (on Valtrex for shingles), and receiving prednisone 40 mg daily * Patient is currently receiving an average of 124 units of insulin per day * 14 units of basal insulin + 46 units of NPH * 64 units of prandial/correctional insulin * BSGs ranging 77 - 310 mg/dl over the past 24hrs * Changes needed to insulin regimen: * AM Fasting BSG = 94 mg/dl. This is slightly below goal range for patient based on inpatient targets and co-morbidities; HOWEVER, for the past two days fasting blood sugar has been above goal range. Will continue with Lantus 14 units. In terms of the NPH.... patient's dinner blood sugar is lower than it has been previously. Will continue with current NPH dosing. * Post-prandial BSGs trend upwards. Yesterday a separate carbohydrate ratio was added for breakfast since the patient trends downwards with lunch. This is appropriate. The patient's blood sugar last night was 310 mg/dL. Tightened Novolog parameters last night. Will use these today. * Total daily dose = >120 units. PLAN FOR INPATIENT GLYCEMIC CONTROL: * Continuing Lantus 14 units SQ daily * Continuing correction factor of 10 mg/dl/unit * Continuing carb ratio to 1 unit per 3 grams CHO consumed * Continuing goal range to Low 110 mg/dL - High 140 mg/dL * Please note that the plan above was derived based on current level of insulin resistance and hospital stress. These recommendations are appropriate for inpatient admission only. Plan of care upon discharge will need to be reassessed to avoid potential outpatient hypo/hyperglycemia. Thank you.
[2019-02-26] MEDS: METOPROLOL SUCC 25MG EXT REL TAB PO SCH ×2 (11:36→20:17)
--- NOTE | 2019-02-26 14:46 | Hospitalist Progress Note ---
Date of Service February 26, 2019 Assessment & Plan (1) COPD exacerbation: - Continues with diffuse exp. wheezing but improving; improving aeration diffusely; suspect lungs likely not clear at baseline - Will continue Nebs and inhalers; Prednisone 40 mg daily and continue to taper - Rocephin daily given QT prolongation course completed - Mucinex BID, Montelukast 10 mg daily, Roflumilast 500 mcg daily, and Theophylline 400 mg daily (2) Shingles: - Reports H/O shingles in the past with intermittent recurrences in similar distribution - appears approx. L4 dermatomal distribution - Valtrex 1 g BID x 7 days (renal adjustment - course completes on 03/03); reports burning sensation stable today (3) Chronic respiratory failure with hypoxia: - Baseline supplemental O2 of 2-3 L; in setting of COPD and likely hypoventilation syndrome (4) Acute on chronic combined systolic (congestive) and diastolic (congestive) heart failure: - Maybe a mild exacerbation given presentation but rather stable; seems rather resolved at this time - Maintain Spironolactone 50 mg BID; currently at a cumulative -9.6 L balance - Monitor renal function (5) Anemia: - H&H reduced but stable - no active signs of bleeding; transfuse if < 7 or symptomatic (6) Septic thrombophlebitis: - Previous admission for lumbar abscess and 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 and bacteremia; H/O DVT/PE previously - S/P IVC Filter placed on previous admission - did not ask if this has been removed since - Continue Xarelto 20 mg daily (7) QT prolongation: - Noted; Avoid QT prolonging agents when able (8) KATHLEEN (generalized anxiety disorder): - Chronic and stable - Continue Seroquel 200 mg HS, Mirtazapine 30 mg daily, Excitalopram 15 mg daily (9) Diabetes: - With hyperglycemia - will worsen in setting of steroids but currently tapering down - Appreciate glycemic assistance (10) Hypothyroid: - STABLE - Continue Synthroid 25 mcg daily (11) Hypertension: - STABLE - Continue Spironolactone BID and Toprol XL 25 mg BID (12) DVT prophylaxis: - Xarelto Disposition: Plans to return home however will not have caregiver support until Thursday; given her high risk for readmission and given her advanced COPD and her poor endurance the safest option would be to D/C on Thursday so she has support at home during her recovery stage - states she tries not to get out of bed on days when she doesn't have help due to significant deconditioning and ALVAREZ. Has ALVAREZ simply from walking from bed to bathroom Subjective Reports doing okay today. Did see patient after just getting in bed from going to the bathroom. She is pursed lip breathing but no distress. States this is normal for her and is able to talk without difficulty. Continues to have wheezing but does have better aeration compared to when she came in. States her breathing is almost to normal. Has very poor endurance. Continues with burning at the site of shingles but states its steady and not worsening. Review of Systems Constitutional: + fatigue and + weakness; no fever and no chills Respiratory: + cough, + dyspnea on exertion and + wheezing; no sputum production Cardiovascular: no chest pain, no palpitations and no edema Gastrointestinal: no abdominal pain, no nausea, no vomiting, no constipation and no diarrhea/loose stools Genitourinary: no dysuria Integumentary: + lesions (burning along R buttocks/hip region) Physical Exam Constitutional: well developed, well nourished and + obese Eyes: + anicteric sclerae Neck: trachea midline Respiratory: normal respiratory effort Auscultation: + wheezes (diffuse; expiratory) Cardiovascular: RRR, no murmur, no edema Gastrointestinal (Abdomen): Inspection/Auscultation: normal bowel sounds Percussion/Palpation: abdomen soft; abdomen nontender Musculoskeletal: Head/Neck/Chest: normocephalic, head atraumatic and neck supple Skin: no rashes, warm and dry + rash (3 erythematous bases with small vesciles along approx. L4 dermatome) Neurologic: moves all extremities Psychiatric: A+Ox3, euthymic affect Results & Data Vital Signs (Past 12 Hours) Vital Signs Temp Pulse Pulse Resp BP Pulse Ox 02/26/19 11:51 37.2 C 64 20 126/80 100 02/26/19 11:21 68 18 97 02/26/19 07:30 36.6 C 58 L 20 128/76 99 02/26/19 07:01 66 16 99 02/26/19 04:24 57 L 18 98 PG Care Time/CCT Total # of Minutes Spent Total Time Spent with Patient: Total time spent is greater than 50% in coordination of care (as documented) at patient's floor/unit and/or counseling patient: (1) Anemia Anemia type: unspecified type Qualified Code(s): D64.9 - Anemia, unspecified (2) Diabetes Diabetes mellitus type: type 2 Diabetes mellitus longterm insulin use: with longterm use Diabetes mellitus complication status: without complication Qualified Code(s): E11.9 - Type 2 diabetes mellitus without complications; Z79.4 - frame runner (current) use of insulin (3) Hypertension Hypertension type: essential hypertension Qualified Code(s): I10 - Essential (primary) hypertension
[2019-02-26] MEDS: MONTELUKAST SODIUM 10 MG TABLET PO SCH (20:14)
[2019-02-26] MEDS: MIRTAZAPINE TAB 15 MG TAB PO SCH (20:16)
[2019-02-26] MEDS: QUETIAPINE FUMARATE 200 MG TAB PO SCH (20:16)
[2019-02-26] MEDS ORDERED: COUGH DROP (SUGAR FREE) LOZ 24 LOZ/1 BOX BUCCAL STA (20:47)
[2019-02-27] MEDS: ALBUT/IPRATROP 3MG/0.5MG NEB 3 ML VIAL NEB SCH ×4 (04:04→15:13)
[2019-02-27] MEDS: INSULIN ASPART 100 UNITS/ML 3 ML PEN SC SCH ×4 (05:01→17:38)
[2019-02-27] MEDS: SUCRALFATE 1 GM TAB PO SCH ×3 (08:16→17:37)
[2019-02-27] MEDS ORDERED: predniSONE 20 MG TAB PO SCH (09:00)
[2019-02-27] MEDS: INSULIN HUMAN NPH SC SCH (09:24)
[2019-02-27] MEDS: VALACYCLOVIR HCL 500 MG TABLET PO SCH (09:26)
[2019-02-27] MEDS: SPIRONOLACTONE 25 MG TAB PO SCH ×2 (09:26→17:36)
[2019-02-27] MEDS: guaiFENesin 600 MG TABCR PO SCH (09:27)
[2019-02-27] MEDS: RIVAROXABAN 20 MG TAB PO SCH (09:27)
[2019-02-27] MEDS: POTASSIUM CHLORIDE 20 MEQ TABCR PO SCH (09:27)
[2019-02-27] MEDS: PANTOprazole 40 MG TAB PO SCH (09:27)
[2019-02-27] MEDS: MAGNESIUM OXIDE 400 MG TAB PO SCH (09:27)
[2019-02-27] MEDS: THEOPHYLLINE 400 MG EXTENDED REL TAB PO SCH (09:28)
[2019-02-27] MEDS: ROFLUMILAST 500 MCG TAB PO SCH (09:28)
[2019-02-27] MEDS: METOPROLOL SUCC 25MG EXT REL TAB PO SCH (09:28)
[2019-02-27] MEDS: LEVOTHYROXINE SODIUM 25 MCG TABLET PO SCH (09:28)
[2019-02-27] MEDS: ESCITALOPRAM OXALATE 10 MG TAB PO SCH (09:29)
[2019-02-27] MEDS: ATORVASTATIN 40 MG TAB PO SCH (09:29)
[2019-02-27] MEDS ORDERED: INSULIN ASPART 100 UNITS/ML 3 ML PEN SC SCH ×2 (11:30→16:30)
--- NOTE | 2019-02-27 11:40 | Pharmacy Report ---
Glycemic Control Progress Note - Date of Service February 27, 2019 - Scope Glycemic Pharmacist consulted for glycemic control to write orders per [facility] inpatient glycemic control protocol. - Objective Accuchecks BSG(last 24 hours):: 02/26/19 02/26/19 02/26/19 11:46 16:28 19:59 POC Glucose 104 H 140 H 426 H* 02/26/19 02/26/19 02/27/19 20:00 23:45 03:44 POC Glucose 438 H* 237 H 152 H 02/27/19 07:46 POC Glucose 123 H HbA1c:: Hemoglobin A1c 11.8 % (4.5-5.6) H 02/21/19 05:49 - Recent Pertinent Medications The patient is currently receiving: * Basal insulin: Lantus 14 units every 24 hours in the morning * Correctional Insulin: Novolog Correction per scale ACHS Goal Range: Low 110 mg/dL - High 140 mg/dL Correction Factor: 12 (10 for all meals other than breakfast) mg/dL/unit * Prandial insulin: Per carb ratio of 1 unit per 6 (3 for all meals other than breakfast) grams CHO consumed - Outpatient Anti-Diabetic Meds Lantus 8 units + metformin 500 mg PO BID - Assessment & Plan ASSESSMENT: * See progress note from 02/20/19 for more background info, in short: * Pt receiving SQ basal bolus insulin regimen for hyperglycemia secondary to baseline DM (outpatient regimen on hold) and steroids (was on prednisone 40 mg now on prednisone 20 mg) * Patient is currently receiving an average of 143 units of insulin per day * 14 units of basal insulin + 46 units of NPH * 83 units of prandial/correctional insulin * BSGs ranging 94 - 426 mg/dl over the past 24hrs * Changes needed to insulin regimen: * AM Fasting BSG = 123 mg/dl. This is in goal range for patient based on inpatient targets and co-morbidities. The patient continually trends upwards at bedtime. In order to stop this, a plan was created to give patient NPH TWICE daily to have a peak with bedtime. However, patient is to be discharged today. The plan was changed at noon. The patient will receive Lantus 14 units. She did receive 46 units of NPH at breakfast so therefore will loosen carbohydrate ratio to prevent hypoglycemia. * Post-prandial BSGs were well controlled yesterday until bed time. Due to above changes, loosened CF/CR throughout the day. * Total daily dose = ~140 units. PLAN FOR INPATIENT GLYCEMIC CONTROL: * Lantus 14 units SQ daily + NPH (decrease to 30 units for prednisone 20 mg) * Continuing correction factor of 10 mg/dl/unit * Changing carb ratio to 1 unit per 4 grams CHO consumed * Continuing goal range of Low 110 mg/dL - High 140 mg/dL RECOMMENDATIONS FOR DISCHARGE: * Lantus 14 units SQ daily + metformin 1000 mg PO BID (maximize metformin dose) * if patient is to continue on prednisone: * prednisone 20 mg : give NPH 30 units * prednisone 10 mg: give NPH 15 units Thank you.
[2019-02-27] MEDS ORDERED: INSULIN GLARGINE SOLOSTAR 100 UNITS/ML 3 ML PEN SC SCH ×2 (12:00→17:00)
[2019-02-27] MEDS ORDERED: INSULIN HUMAN NPH SC SCH ×2 (16:30)
--- NOTE | 2019-02-27 17:07 | Discharge Summary ---
Date of Service February 27, 2019 Admission HPI Per Admitting Provider Mini Clemons is a pleasant 73yo C female with history of CHF, COPD on 2L of home oxygen, GERD, DM, KATHLEEN/Depression presenting with one week of progressive SOB. Reports increase in cough productive for yellow/brown sputum as well as wheeze. Subjective fevers and chills as well as stuffy nose and sinus congestion. Additionally she complains of worsening LE edema as well as orthopnea. Denies rapid weight gain but has gained appx 25# in the last year. She has occasional rib pain, severe and intermittent, non-exertional and non- pleuritic. She has been taking her inhalers q 4 hours at home with minimal improvement ER Course: Solumedrol, Magnesium, Insulin 8u, Lasix 20mg, Cefepime, Albuterol Principal Diagnosis COPD Exacerbation Discharge Exam Constitutional well developed, well nourished and + obese Eyes + anicteric sclerae Neck trachea midline Respiratory normal respiratory effort Auscultation: + wheezes (diffuse; expiratory) Does have appropriate aeration Cardiovascular RRR, no murmur, no edema Gastrointestinal (Abdomen) Inspection/Auscultation: normal bowel sounds Percussion/Palpation: abdomen soft; abdomen nontender Musculoskeletal Head/Neck/Chest: normocephalic, head atraumatic and neck supple Skin no rashes, warm and dry + rash (3 erythematous bases with small vesciles along approx. L4 dermatome) Neurologic moves all extremities Psychiatric A+Ox3, euthymic affect Discharge Data Allergies Allergy/AdvReac Type Severity Reaction Status Date / Time rabies vaccine, duck-embryo Allergy Severe HIVES Verified 02/19/19 23:53 ragweed pollen Allergy Unknown UNKNOWN Verified 02/19/19 23:53 tomato Allergy Unknown HIVES Verified 02/19/19 23:53 Consultations 02/20/19 01:43 ED Decision to Admit Stat Hospital Course (1) COPD exacerbation: - Continues with diffuse exp. wheezing but improving; improving aeration diffusely; suspect lungs likely not clear at baseline as patient states she feels almost to baseline and commonly has audible wheezing which is not present at this time; her endurance is poor with only minimal activity resulting in ALVAREZ, states she largely sleep at home and does have assistance to go to areas in the apartment and downstairs and states she feels baseline with walking; she does complain of weakness but on multiple occasions she has decline rehab - Will continue Nebs and inhalers; Prednisone 20 mg x 3 days then 10 mg x 3 days then stop - Rocephin daily given QT prolongation - course completed - Mucinex BID, Montelukast 10 mg daily, Roflumilast 500 mcg daily, and Theop hylline 400 mg daily (2) Shingles: - Reports H/O shingles in the past with intermittent recurrences in similar distribution - appears approx. L4 dermatomal distribution - Valtrex 1 g BID x 7 days (renal adjustment - course completes on 03/03); reports burning sensation stable today (3) Chronic respiratory failure with hypoxia: - Baseline supplemental O2 of 2-3 L; in setting of COPD and likely hypoventilation syndrome (4) Acute on chronic combined systolic (congestive) and diastolic (congestive) heart failure: - Maybe a mild exacerbation given presentation but rather stable; seems rather resolved at this time - Maintain Spironolactone 50 mg BID; currently at a cumulative -10.2 L balance (5) Anemia: - H&H reduced but stable - no active signs of bleeding; transfuse if < 7 or symptomatic (6) Septic thrombophlebitis: - Previous admission for lumbar abscess and 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 and bacteremia; H/O DVT/PE previously - S/P IVC Filter placed on previous admission - did not ask if this has been removed since - Continue Xarelto 20 mg daily (7) QT prolongation: - Noted; Avoid QT prolonging agents when able (8) KATHLEEN (generalized anxiety disorder): - Chronic and stable - Continue Seroquel 200 mg HS, Mirtazapine 30 mg daily, Excitalopram 15 mg daily (9) Diabetes: - With hyperglycemia - will worsen in setting of steroids but currently tapering down - Increased her Lantus to 14 units daily and will continue her Metformin - consider increase of dose to 1000 mg BID; Her glucose is tough as it can be 104 at times then a little while later in the 300-400 range; A1c is 11 and therefore better control will be needed but would also need to be mindful to not cause hypoglycemia (10) Hypothyroid: - STABLE - Continue Synthroid 25 mcg daily (11) Hypertension: - STABLE - Continue Spironolactone BID and Toprol XL 25 mg BID (12) DVT prophylaxis: - Xarelto Disposition: Plans to return home however will not have caregiver support until Thursday; given her high risk for readmission and given her advanced COPD and her poor endurance the safest option would be to D/C on Thursday so she has support at home during her recovery stage - states she tries not to get out of bed on days when she doesn't have help due to significant deconditioning and ALVAREZ. Has ALVAREZ simply from walking from bed to bathroom Total Time Total Time Spent Total Time Spent (In Minutes): Greater than 30 minutes Discharge Plan Discharge Items Patient Disposition: Home - Self-Care Reason For Visit: COPD EXACERBATION Discharge Diagnosis: COPD Exacerbation Discharge Goals: Decrease discomfort, Improve disease control and Prevent disease Activity: Resume your previous activity Non-emergency contact: Primary Care Provider Call non-emergency contact if: you have any medication questions, your symptoms worsen and you have a fever Follow-up/Referrals: Anil Rodriguez [Primary Care Provider] - 03/02/19 2:00 pm (An appointment has been made on your behalf with your PCP. Your A1C is >9% and will need to be addressed at this appointment. ) Diet: Carb Consistent or DM2, Heart Healthy and Low Sodium (2gm) Addtl Provider Instructions: COPD exacerbation: - This exacerbation can take a few days to calm down and get you back to your normal. Continue to use your nebulizers and inhalers - Will continue to taper your steroids down. -- Take Prednisone 20 mg for three days then 10 mg daily for three days then complete. Start this tomorrow as you had steroids today - You finished a course of antibiotics here in the hospital and will not need further antibiotics - Recommend to continue Mucinex to help thin out mucus to make coughing easier Shingles: - It appears you have a reoccurrence of your shingles. Will continue Valtrex 1000 mg twice a day until 03/03. You need your evening dose tonight on 02/27 then resume twice a day starting on 02/28 Diabetes: - Your A1c is 11 which means your sugars run very high pretty often. Definitely talk with you family doctor to get a better regimen in place to better control the sugars. - Will increase your Lantus to 14 units daily and continue your Metformin. Your family doctor may want to increase your Metformin to 1000 mg twice a day but will make one adjustment at a time to prevent your sugars from dropping too low. Please discuss with your family doctor about further medication adjustments Prescriptions: New valacyclovir 500 mg Tablet 1,000 mg PO BID Qty: 9 RF: 0 prednisone 20 mg Tablet 20 mg PO DAILY Qty: 4.5 RF: 0 guaifenesin [Mucinex] 600 mg Tablet Extended Release 12hr 1,200 mg PO Q12 7 Days Qty: 28 RF: 0 Continued atorvastatin 80 mg Tablet 80 mg PO DAILY RF: 0 sucralfate 1 gram Tablet 1 g PO ACHS RF: 0 quetiapine 200 mg Tablet 200 mg PO DAILY RF: 0 levothyroxine 25 mcg Tablet 25 mcg PO DAILY RF: 0 potassium chloride 20 mEq Tablet,Er Particles/Crystals 20 meq PO DAILY RF: 0 famotidine 20 mg Tablet 20 mg PO DAILY RF: 0 pantoprazole 40 mg Tablet,Delayed Release (Dr/Ec) 40 mg PO BID RF: 0 mirtazapine 30 mg tablet 30 mg PO HS RF: 0 montelukast 10 mg Tablet 10 mg PO PM RF: 0 metformin 500 mg Tablet Extended Release 24 Hr 500 mg PO BID RF: 0 cholecalciferol (vitamin D3) [Vitamin D3] 400 unit tablet 400 unit PO DAILY RF: 0 Rohit-24 400 mg Capsule,Extended Release 24hr 400 mg PO DAILY RF: 0 spironolactone 50 mg Tablet 50 mg PO BID RF: 0 escitalopram oxalate 10 mg Tablet 15 mg PO DAILY RF: 0 Daliresp 500 mcg Tablet 500 mcg PO DAILY RF: 0 Xarelto 20 mg Tablet 20 mg PO DAILY RF: 0 metoprolol succinate 25 mg Capsule,Sprinkle,Er 24hr 25 mg PO BID RF: 0 acetaminophen 325 mg Tablet 325 mg PO QID PRN (Reason: Pain) RF: 0 ondansetron HCl [Zofran] 4 mg tablet 4 mg PO Q8H PRN (Reason: nausea and vomiting) Qty: 20 RF: 0 magnesium oxide 400 mg magnesium Tablet 400 mg PO BID RF: 0 Changed Lantus Solostar U-100 Insulin 100 unit/mL (3 mL) insulin pen 14 unit subcut QPM Qty: 0 RF: 0 Discontinued mirtazapine 30 mg Tablet 30 mg PO DAILY RF: 0 Stand-Alone Forms: [facility], [facility] Discharge Orders: Discharge Order (Routine); Ordered 02/27/19 Ordered By: Marivel Magana Admission Data Admit Date/Time: 02/20/19 04:37 Attending Provider: Jonatan Nj Admit Provider: Sylvia Garrett Primary Care Provider: Anil Rodriguez Other Providers: Jennifer Gonzalez Service: Medical Other Interventions: Discharge Summary Assessment (RN) Last Done: 02/27/19 13:45 Pending Studies at Discharge: No
[2019-02-27] MEDS: ALBUTEROL 0.083% NEBU SOLN 3 ML VIAL NEB PRN (17:15)
== END 2019-02-27 19:01 | disposition home or self-care (01) | DRG 190 ==
LOC: ED 23:02 → 4E 02-20 04:37 → SUATTDRO 02-20 04:37 → 4E 02-20 05:26
DX: Z95.828 Presence of other vascular implants and grafts; I11.0 Hypertensive heart disease with heart failure; F41.1 Generalized anxiety disorder; J96.11 Chronic respiratory failure with hypoxia; B02.9 Zoster without complications; K21.9 Gastro-esophageal reflux disease without esophagitis; Z82.49 Family history of ischemic heart disease and other diseases of the circulatory system; Z87.891 Personal history of nicotine dependence; E11.65 Type 2 diabetes mellitus with hyperglycemia; D64.9 Anemia, unspecified; I50.43 Acute on chronic combined systolic (congestive) and diastolic (congestive) heart failure; E03.9 Hypothyroidism, unspecified; J44.1 Chronic obstructive pulmonary disease with (acute) exacerbation; E83.42 Hypomagnesemia; Z99.81 Dependence on supplemental oxygen

== ENCOUNTER 2019-12-01 13:15 | Inpatient (IN) ==
[2019-12-01] MEDS ORDERED: methylPREDNISolone 125 MG/2 ML VIAL IV STA (14:10)
[2019-12-01] MEDS ORDERED: ALBUT/IPRATROP 3MG/0.5MG NEB 3 ML VIAL NEB ONE (14:10)
[2019-12-01 14:33] LABS: Influenza B virus by PCR Neg for Influ B (Neg)
[2019-12-01 14:54] LABS: Appearance Urine Clear (Clear); Bilirubin Urine Negative (Negative); Blood Urine Negative (Negative); Color Urine Yellow; Glucose Urine UA Negative (Negative); Ketones Urine Negative (Negative); Leukocyte Esterase Urine Negative (Negative); Nitrite Urine Negative (Negative); Protein Urine Negative (Negative); Specific Gravity Urine 1.012 (1.000-1.030); Urobilinogen Urine Negative (Negative)
[2019-12-01 15:03] LABS: INR 1.6 (0.9-1.1); Partial Thromboplastin Ratio 1.5; Partial Thromboplastin Time 41.1 Seconds (21.0-31.0); Prothrombin Time 16.9 Seconds (9.0-12.0)
[2019-12-01 15:11] LABS: Alanine Aminotransferase 16 U/L (12-78); Albumin Level 3.2 gm/dl (3.4-5.0); Aspartate Aminotransferase 8 U/L (15-37); Blood Urea Nitrogen 15 mg/dl (7-18); Calcium 9.8 mg/dl (8.5-10.1); Carbon Dioxide 32 mmol/L (21-32); Chloride 106 mmol/L (98-107); Creatinine Clr Calc Pharmacy 54.6 ml/min; Est GFR (African American) 66.2; Est GFR (Non-African American) 57.1; Glucose 133 mg/dl (70-99); Potassium 4.5 mmol/L (3.5-5.1); Sodium 140 mmol/L (136-145)
[2019-12-01 15:16] LABS: Albumin Globulin Ratio 0.9 (0.9-2); Alkaline Phosphatase 143 U/L (45-117); Bilirubin,Total 0.3 mg/dl (0.2-1); Globulin 3.6 gm/dl (2.5-4.0); NT Pro B Type Natriuretic Pept 121 pg/ml (0-900); Total Protein 6.8 gm/dl (6.4-8.2); Troponin I < 0.015 ng/ml (0-0.045)
[2019-12-01] MEDS ORDERED: OSELTAMIVIR PHOSPHATE 75 MG CAP PO STA (15:35)
[2019-12-01 15:44] LABS: Hematocrit (blood only) 28.3 % (37-47); Hemoglobin 7.9 g/dL (12.0-16.0); Mean Corpuscular Hemoglobin 21.4 pg (25-34); Mean Corpuscular Hgb Conc 27.9 g/dL (32-36); Mean Corpuscular Volume 76.5 fL (80-100); Mean Platelet Volume 8.9 fL (7.4-10.4); Platelet Count 326 K/uL (130-400); RDW Coefficient of Variation 17.3 % (11.5-14.5); RDW Standard Deviation 49.2 fL (36.4-46.3); White Blood Count 8.07 K/uL (4.8-10.8)
[2019-12-01 15:48] LABS: Basophils # (auto) 0.02 K/uL (0-0.2); Basophils % (auto) 0.2 %; Eosinophils # (auto) 1.03 K/uL (0-0.5); Eosinophils % (auto) 12.8 %; Immature Granulocytes # (auto) 0.02 K/uL (0.00-0.02); Immature Granulocytes % (auto) 0.2 %; Lymphocytes % (auto) 21.1 %; Monocytes # (auto) 0.63 K/uL (0.11-0.59); Monocytes % (auto) 7.8 %; Neutrophils # (auto) 4.67 K/uL (1.4-6.5); Neutrophils % (auto) 57.9 %; Ovalocytes 1+
--- NOTE | 2019-12-01 15:58 | XRay Report ---
XR chest 1V portable HISTORY: Dyspnea COMPARISON: Chest 02/19/2019. FINDINGS: No pneumothorax. No pleural effusions. The heart remains mildly enlarged. There is perihila r interstitial vascular thickening with bibasilar hazy airspace opacities. This has slightly progress ed in the interval. IMPRESSION: Perihilar interstitial and vascular thickening with bibasilar hazy airspace opacities. This could rep resent developing pulmonary edema or an atypical pneumonitis. ACT 112: Negative or not required by law. Electronically signed by: Charly Cabrera M.D. 12/01/2019 3:57 PM
[2019-12-01] MEDS ORDERED: DOXYCYCLINE HYCLATE 100 MG in DEXTROSE 5% 100 ML IV STA (16:07)
[2019-12-01] MEDS ORDERED: cefTRIAXone SODIUM 1,000 MG/50 ML BAG IV STA (16:07)
--- NOTE | 2019-12-01 16:55 | History & Physical Report ---
Date of Service December 01, 2019 Assessment & Plan (1) Influenza A: Patient has pneumonitis radiographically, likely secondary to influenza A. Patient was given antibiotics emergency room. IV can likely stop these for now. She was started on Tamiflu. Continue supportive care, as detailed below. Should be on droplet precautions. Check blood and sputum cultures if able to produce a sample. (2) COPD exacerbation: I see from previous documentation the patient has a history of severe COPD, likely having exacerbation secondary to influenza. Patient was given a loading dose of Solu-Medrol, will continue this at 40 mg 3 times daily. 4 times daily duo nebs and as needed. Previously seen by pulmonology, can consider consultation if patient's condition worsens. I will continue Daliresp and theophylline. (3) Acute on chronic combined systolic (congestive) and diastolic (congestive) heart failure: History of combined chronic CHF. Does not appear to be in significant fluid overload at this time. Can continue diuresis with the spironolactone for the time being. Monitor renal function and fluid status. (4) Diabetes: Patient is on oral metformin along with Lantus 15 units daily. We will continue these along with an ADA diet and sliding scale insulin. (5) Anemia: Endo patient has a history of anemia. Labs today are worse than previous admission on 03/02. Patient has a microcytic anemia. We will heme check stool. Check iron studies. Likely multifactorial with anemia chronic disease being a possibility as well. Consider GI evaluation if not previously done, although patient would be high risk for any procedure considering her poor respiratory status. (6) Pulmonary embolism: Patient is a previous history of pulmonary embolism. She has been on Xarelto. We will continue this for now. History of Present Illness Primary Care Provider: Anil Rodriguez This is a 74-year-old female with past medical history chronic combined CHF, hypertension, diabetes, hypothyroidism, COPD that presents today complaining shortness of breath and cough. Patient is a good historian but somewhat limited secondary to coughing. Patient tells me symptoms started approximately 1.5 weeks ago. This initially started with a cough that was dry. This became more hacking in nature. She noticed some dyspnea on exertion which became worse. It worsened to the point that any effort on the part the patient made her very winded. She has had subjective fevers with chills, did not take her temperature at home. She notes some mildly diminished appetite but has been drinking a lot of fluids with no issues. Has not had any nausea or vomiting. She has some chest wall soreness secondary to cough. At time of evaluation, patient was coughing repeatedly, difficult to get words out and occasion. Overall, patient tells me she is mostly homebound, ambulates with a walker. She has 2 aides that come to the house daily but otherwise has very little contact and denies any recent sick contacts. She denies any recent travel. Allergies Allergy/AdvReac Type Severity Reaction Status Date / Time rabies vaccine, duck-embryo Allergy Severe HIVES Verified 12/01/19 14:05 ragweed pollen Allergy Unknown UNKNOWN Verified 12/01/19 14:05 tomato Allergy Unknown HIVES Verified 12/01/19 14:05 Home Medications Home Medications Medication Instructions Recorded Confirmed Type Daliresp 500 mcg PO QAM 02/10/19 12/01/19 History Rohit-24 400 mg PO QAM 02/10/19 12/01/19 History Xarelto 20 mg PO QAM 02/10/19 12/01/19 History cholecalciferol (vitamin D3) 400 unit PO QAM 02/10/19 12/01/19 History [Vitamin D3] escitalopram oxalate 15 mg PO QAM 02/10/19 12/01/19 History famotidine 20 mg PO QAM 02/10/19 12/01/19 History levothyroxine 25 mcg PO QAM 02/10/19 12/01/19 History metformin 500 mg PO BID 02/10/19 12/01/19 History metoprolol succinate 25 mg PO BID 02/10/19 12/01/19 History mirtazapine 30 mg PO HS 02/10/19 12/01/19 History montelukast 10 mg PO HS 02/10/19 12/01/19 History pantoprazole 40 mg PO BID 02/10/19 12/01/19 History potassium chloride 20 meq PO QAM 02/10/19 12/01/19 History quetiapine 200 mg PO HS 02/10/19 12/01/19 History spironolactone 100 mg PO QAM 02/10/19 12/01/19 History sucralfate 1 g PO ACHS 02/10/19 12/01/19 History magnesium oxide 400 mg PO BID 02/20/19 12/01/19 History Lant Solostar U-100 Insulin 15 unit SUBCUT DAILY@2100 12/01/19 12/01/19 History arformoterol [Brovana] 15 mcg INHALATION BID 12/01/19 12/01/19 History budesonide 0.5 mg INHALATION BID 12/01/19 12/01/19 History Past Med/Surg History Medical History (Updated 12/01/19 @ 17:12 by Edy Burton DO) Acid reflux (Chronic) Acute respiratory failure with hypoxia (Acute) CHF (congestive heart failure) (Chronic) CHF (congestive heart failure) (Chronic) COPD (chronic obstructive pulmonary disease) (Chronic) COPD (chronic obstructive pulmonary disease) (Chronic) Diabetes (Chronic) Elevated troponin Endocarditis KATHLEEN (generalized anxiety disorder) (Chronic) GERD (gastroesophageal reflux disease) (Chronic) GI bleed Hypoxia (Resolved) Major depression, recurrent, full remission (Chronic) MSSA (methicillin susceptible Staphylococcus aureus) septicemia Nausea & vomiting QT prolongation Septic thrombophlebitis (Chronic) Spinal abscess Syncope Vomiting and diarrhea (Inactive) Surgical History (Updated 02/20/19 @ 04:30 by Jennifer Gonzalez DO) History of lumpectomy Family History (Updated 02/20/19 @ 04:31 by Jennifer Gonzalez DO) Other Coronary heart disease Stroke Social History Preferred Language: Amharic Communication Ability: Effective Manager Car Required: No Beliefs That Will Affect Care: None marital status: Single Current Living Situation: Alone Current Living Situation Comment: with caregiver current occupational status: retired Feels Safe at Home: Yes Smoking Status: Former smoker Hx Alcohol Use: No Hx Substance Use: No Review of Systems Constitutional: + fever, + chills, + body aches, + fatigue and + weakness; no weight loss and no weight gain Eyes: as per Subjective / HPI Respiratory: + cough, + dyspnea on exertion and + wheezing; no chest congestion, no hemoptysis and no sputum production Cardiovascular: + edema; no chest pain, no orthopnea, no palpitations and no lightheadedness Gastrointestinal: no abdominal pain, no nausea, no vomiting, no constipation and no diarrhea/loose stools Genitourinary: no dysuria, no difficulty urinating, no urinary frequency, no urinary hesitancy, no urinary urgency and no flank pain Musculoskeletal: + back pain, + joint pain and + stiffness; no neck pain and no myalgia Integumentary: no rash Neurologic: no gait abnormality, no unsteadiness, no falls and no generalized weakness Physical Exam Constitutional: cooperative, + in distress (Mild distress from coughing and shortness of breath) and + overweight Neck: trachea midline, no thyromegaly Respiratory: normal respiratory effort and + cough Auscultation: + rhonchi, + wheezes and + bronchovesicular breath sounds; no crackles and no rales Cardiovascular: Rate/Rhythm: regular rate and regular rhythm Heart Sounds: normal S1 and normal S2 Vessels: no JVD and no carotid bruit Extremities: no pedal edema Gastrointestinal (Abdomen): Inspection/Auscultation: abdomen normal to inspection Percussion/Palpation: abdomen soft; abdomen nontender, no g uarding, abdomen not rigid and no hepatosplenomegaly Skin: no rashes, warm and dry Neurologic: PERRL, EOMI, accommodation nl, no face palsy, no dysarthria Results & Data Vital Signs (Past 12 Hours) Vital Signs Temp Pulse Pulse Resp BP Pulse Ox 12/01/19 15:00 64 16 157/70 H 100 12/01/19 14:41 61 17 178/73 H 100 12/01/19 14:40 96 12/01/19 14:26 60 20 96 12/01/19 13:45 63 24 96 12/01/19 13:21 36.7 C 63 24 148/62 H 96 12/01/19 13:19 63 24 148/62 H 98 Laboratory Results This is of 8, hemoglobin 7.9 with hematocrit of 28.3. On 02/25/2019, hemoglobin is 9.3 hematocrit of 30.4. MCV is 76.5. Platelets of 326. INR is 1.6. Sodium is 140, potassium 4.5, chloride 106, CO2 32, BUN of 15 creatinine of 0.97. Glucose of 133. LFTs are within normal limits UA is negative. Patient is positive for influenza A. Diagnostic Findings XR chest 1V portable HISTORY: Dyspnea COMPARISON: Chest 02/19/2019. FINDINGS: No pneumothorax. No pleural effusions. The heart remains mildly enlarged. There is perihilar interstitial vascular thickening with bibasilar hazy airspace opacities. This has slightly progressed in the interval. IMPRESSION: Perihilar interstitial and vascular thickening with bibasilar hazy airspace opacities. This could represent developing pulmonary edema or an atypical pneumonitis. PG Care Time/CCT Total # of Minutes Spent Total Time Spent with Patient: Total time spent is greater than 50% in coordination of care (as documented) at patient's floor/unit and/or counseling patient: Coding Level of Care Code 95943 Initial Inpt Care Lvl 3 Diagnoses Influenza A J10.1 COPD exacerbation J44.1 Acute on chronic combined systolic (congestive) and diastolic (congestive) heart failure I50.43 Diabetes E11.9; Z79.4 Diabetes mellitus type: type 2 Diabetes mellitus longwall shearer operator insulin use: with fci use Diabetes mellitus complication status: without complication Anemia D64.9 Anemia type: unspecified type Pulmonary embolism I26.99 (1) Anemia Anemia type: unspecified type Qualified Code(s): D64.9 - Anemia, unspecified (2) Diabetes Diabetes mellitus type: type 2 Diabetes mellitus longwall shearer operator insulin use: with fci use Diabetes mellitus complication status: without complication Qualified Code(s): E11.9 - Type 2 diabetes mellitus without complications; Z79.4 - watermelon inspector (current) use of insulin
--- NOTE | 2019-12-01 18:21 | Emergency Department Note ---
ED Provider Note NAME: ROSA HASSAN AGE: 74 SEX: F ARRIVES VIA: Ambulance INFORMANT: [Patient] ED PROVIDER(S): Fabrizio Herring MD CHIEF COMPLAINT: Shortness of breath IMPRESSION: Influenza A Pneumonitis COPD exacerbation PLAN: Disposition: Admitted Condition: [Good] MEDICAL DECISION MAKING: The patient has had a 4-year-old female with a history of COPD. She noted dyspnea. Her work-up revealed a pneumonitis and influenza A. She was treated with a DuoNeb, hour-long, and Solu-Medrol. She also received IV Rocephin and doxycycline. She did have blood cultures were performed. The patient's influenza PCR did come back positive. She was given Tamiflu. Given the consolation of findings she will need further management in the hospital. She is also anemic. This is slightly worse than prior. Consultation was made with internal medicine. The patient was evaluated in the ER and admitted for further management by Micheal. Triage Nursing notes reviewed and agree them. Vital Signs: reviewed and remarkable for hypertension Differential diagnosis: Reactive airway disease, pneumonia, influenza pneumothorax, COPD, CHF, infections, cardiac ischemia, pulmonary embolism, musculoskeletal, gastrointestinal, as well as other pathologies. ER treatment provided: Hour-long DuoNeb IV Solu-Medrol Oral Tamiflu IV doxycycline IV Rocephin Diagnostics interpreted by me: ECG: Rate: 75 Rhythm: Normal sinus rhythm [place]: Normal QRS: Normal ST segements: No elevation or depression Other: No PACs or PVCs Cardiac Monitoring: Cardiac monitoring ordered: The patient was placed on continuous cardiac monitoring and observed. It revealed a normal sinus rhythm at 78 bpm without ectopy or evidence of dysrhythmia. Laboratory studies: [See below] an unremarkable CBC and chemistry panel. Troponin negative. The patient's influenza testing is positive. Imaging studies: Chest x-ray is concerning for mild pneumonitis. Consultation(s): Internal medicine, Dr. Burton. Diagnostics were reviewed. The patient will be evaluated admitted for further management. HPI: 74/F arrives for evaluation of dyspnea. The patient has noted her symptoms have been over the last couple of days. She has not traveled. She has been by herself in her apartment. The patient tried a nebulizer at home without relief. She was given a DuoNeb in the ambulance which did help somewhat. The patient notes some chest discomfort from breathing heavy. She feels worse with exertion. Pt denies LOC, headache, fevers, chills, diaphoresis, visual changes, neck pain, nausea, vomiting, abdominal pain, back pain, melena, hematochezia, urinary symptoms, numbness, weakness, lymphadenopathy, rash, or other complaints. ROS: See above HPI for pertinent positives & negatives. A total of [10] systems reviewed and were otherwise negative. PAST MEDICAL HISTORY:COPD, see below PAST SURGICAL HISTORY:[See Below] FAMILY HISTORY:[See Below] SOCIAL HISTORY:Lives alone HOME MEDICATIONS:Reviewed in EMR. ALLERGIES:Reviewed in EMR. VITALS:[See Below] PHYSICAL EXAMINATION: GENERAL: Awake, alert, dyspneic-appearing, in no distress HENT: Normocephalic, atraumatic. Oropharynx unremarkable. EYES: Pale conjunctiva. Sclera non-icteric. NECK: Inspection normal. Non-tender. Supple. No nuchal rigidity. FROM. No masses. RESPIRATORY: Significant bilateral wheezes. No rales. Normal respiratory effort. CARDIAC: Normal rate. Normal rhythm. No murmurs. No rubs. Extremities warm and well perfused. Pulses equal. No JVD. GI: Soft, non-distended. No tenderness to palpation. No rebound or guarding. No masses. RECTAL: Deferred. MUSCULOSKELETAL: Atraumatic. Chest examination reveals no tenderness. The back is symmetrical on inspection without obvious abnormality. There is no CVA tenderness to palpation. No joint edema. LOWER EXTREMITIES: Calves are equal size bilaterally and non-tender. Trace edema. No discoloration. NEURO: Normal sensorium. No sensory or motor deficits noted. SKIN: No rash or jaundice noted. ED COURSE: Procedures: [none] PDMP:[reviewed and no issues] [Critical Care:] [None] Fabrizio Herring MD Impression & Plan COPD (chronic obstructive pulmonary disease), Influenza A, Pneumonitis Past Med/Surg History Medical History (Updated 12/01/19 @ 18:29 by Fabrizio Herring MD) Acid reflux (Chronic) Acute respiratory failure with hypoxia (Acute) CHF (congestive heart failure) (Chronic) CHF (congestive heart failure) (Chronic) COPD (chronic obstructive pulmonary disease) (Chronic) COPD (chronic obstructive pulmonary disease) (Chronic) Diabetes (Chronic) Elevated troponin Endocarditis KATHLEEN (generalized anxiety disorder) (Chronic) GERD (gastroesophageal reflux disease) (Chronic) GI bleed Hypoxia (Resolved) Major depression, recurrent, full remission (Chronic) MSSA (methicillin susceptible Staphylococcus aureus) septicemia Nausea & vomiting QT prolongation Septic thrombophlebitis (Chronic) Spinal abscess Syncope Vomiting and diarrhea (Inactive) Surgical History (Updated 02/20/19 @ 04:30 by Jennifer Gonzalez DO) History of lumpectomy Family History (Updated 02/20/19 @ 04:31 by Jennifer Gonzalez DO) Other Coronary heart disease Stroke Social History Preferred Language: Mauritanian Communication Ability: 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 Beliefs That Will Affect Care: None marital status: Single Current Living Situation: Alone Current Living Situation Comment: with caregiver current occupational status: retired Feels Safe at Home: Yes Smoking Status: Former smoker Hx Alcohol Use: No Hx Substance Use: No Results & Data Vital Signs Vital Signs - 24 hr 12/01/19 13:19 12/01/19 13:21 12/01/19 13:45 Temperature 36.7 C Temperature Source Oral Pulse Rate 63 63 63 Pulse Rate [Apical] Pulse Rate from SpO2 Sensor 63 Pulse Rhythm Regular Respiratory Rate 24 24 24 Respiratory Effort / Characteristics Grunting Labored Nasal Flaring Pursed Lip Respiratory Depth Retractive Respiratory Pattern Grunting Blood Pressure 148/62 H 148/62 H Blood Pressure Mean 95 90 Blood Pressure Position Sitting Pulse Oximetry 98 96 96 Oxygen Delivery Method Nasal Cannula Nasal Cannula Oxygen Flow Rate 2 2 Sepsis Recent Fever Within 48 Hours No Sepsis New/Unexplained Change in Mental Status No Sepsis Action Taken by Nursing No Action Required 12/01/19 14:26 12/01/19 14:40 12/01/19 14:41 Temperature Temperature Source Pulse Rate 61 Pulse Rate [Apical] 60 Pulse Rate from SpO2 Sensor 61 Pulse Rhythm Respiratory Rate 20 17 Respiratory Effort / Characteristics Spontaneous Labored Short of Breath Respiratory Depth Respiratory Pattern Blood Pressure 178/73 H Blood Pressure Mean 103 Blood Pressure Position Pulse Oximetry 96 96 100 Oxygen Delivery Method Nasal Cannula Nasal Cannula Nebulizer Oxygen Flow Rate 2 2 7 Sepsis Recent Fever Within 48 Hours Sepsis New/Unexplained Change in Mental Status Sepsis Action Taken by Nursing 12/01/19 15:00 12/01/19 15:31 12/01/19 16:07 Temperature Temperature Source Pulse Rate 64 70 79 Pulse Rate [Apical] Pulse Rate from SpO2 Sensor 64 69 79 Pulse Rhythm Respiratory Rate 16 22 20 Respiratory Effort / Characteristics Respiratory Depth Respiratory Pattern Blood Pressure 157/70 H 151/100 H 170/118 H Blood Pressure Mean 102 114 123 Blood Pressure Position Pulse Oximetry 100 100 99 Oxygen Delivery Method Nebulizer Nebulizer Nebulizer Oxygen Flow Rate 7 7 7 Sepsis Recent Fever Within 48 Hours Sepsis New/Unexplained Change in Mental Status Sepsis Action Taken by Nursing 12/01/19 16:30 12/01/19 17:01 12/01/19 17:31 Temperature Temperature Source Pulse Rate 87 83 82 Pulse Rate [Apical] Pulse Rate from SpO2 Sensor 87 83 82 Pulse Rhythm Respiratory Rate 18 15 23 Respiratory Effort / Characteristics Respiratory Depth Respiratory Pattern Blood Pressure 128/66 145/57 H 173/73 H Blood Pressure Mean 89 79 109 Blood Pressure Position Pulse Oximetry 95 96 96 Oxygen Delivery Method Nasal Cannula Nasal Cannula Nasal Cannula Oxygen Flow Rate 2 2 2 Sepsis Recent Fever Within 48 Hours Sepsis New/Unexplained Change in Mental Status Sepsis Action Taken by Nursing 12/01/19 18:01 Temperature Temperature Source Pulse Rate 85 Pulse Rate [Apical] Pulse Rate from SpO2 Sensor 85 Pulse Rhythm Respiratory Rate 20 Respiratory Effort / Characteristics Respiratory Depth Respiratory Pattern Blood Pressure 135/111 H Blood Pressure Mean 125 Blood Pressure Position Pulse Oximetry 99 Oxygen Delivery Method Nasal Cannula Oxygen Flow Rate 2 Sepsis Recent Fever Within 48 Hours Sepsis New/Unexplained Change in Mental Status Sepsis Action Taken by Nursing Laboratory Data Result diagrams: 12/01/19 14:21 12/01/19 14:21 Lab Results 12/01/19 12/01/19 12/01/19 Range/Units 13:50 14:21 14:21 WBC 8.07 (4.8-10.8) K/uL RBC 3.70 L (4.2-5.4) M/uL Hgb 7.9 L (12.0-16.0) g/dL Hct 28.3 L (37-47) % MCV 76.5 L (80-100) fL MCH 21.4 L (25-34) pg MCHC 27.9 L (32-36) g/dL RDW Std Deviation 49.2 H (36.4-46.3) fL RDW Coeff of Jame 17.3 H (11.5-14.5) % Plt Count 326 (130-400) K/uL MPV 8.9 (7.4-10.4) fL Immature Gran % (Auto) 0.2 % Neut % (Auto) 57.9 % Lymph % (Auto) 21.1 % [place] % (Auto) 7.8 % Eos % (Auto) 12.8 % Baso % (Auto) 0.2 % Immature Gran # (Auto) 0.02 (0.00-0.02) K/uL Neut # (Auto) 4.67 (1.4-6.5) K/uL Lymph # (Auto) 1.70 (1.2-3.4) K/uL [place] # (Auto) 0.63 H (0.11-0.59) K/uL Eos # (Auto) 1.03 H (0-0.5) K/uL Baso # (Auto) 0.02 (0-0.2) K/uL Ovalocytes 1+ PT 16.9 H (9.0-12.0) Seconds INR 1.6 H (0.9-1.1) APTT 41.1 H (21.0-31.0) Seconds PTT Ratio 1.5 Sodium (136-145) mmol/L Potassium (3.5-5.1) mmol/L Chloride (98-107) mmol/L Carbon Dioxide (21-32) mmol/L Anion Gap (3-11) BUN (7-18) mg/dl Creatinine (0.6-1.2) mg/dl Est Cr Clr Drug Dosing ml/min Est GFR ( Amer) Est GFR (Non-Af Amer) BUN/Creatinine Ratio (10-20) Glucose (70-99) mg/dl Calcium (8.5-10.1) mg/dl Total Bilirubin (0.2-1) mg/dl AST (15-37) U/L ALT (12-78) U/L Alkaline Phosphatase (45-117) U/L Troponin I (0-0.045) ng/ml NT-Pro-B Natriuret Pep (0-900) pg/ml Total Protein (6.4-8.2) gm/dl Albumin (3.4-5.0) gm/dl Globulin (2.5-4.0) gm/dl Albumin/Globulin Ratio (0.9-2) Urine Color Urine Appearance (Clear) Urine pH (4.5-7.5) Ur Specific Kimberly (1.000-1.030) Urine Protein (Negative) Urine Glucose (UA) (Negative) Urine Ketones (Negative) Urine Blood (Negative) Urine Nitrite (Negative) Urine Bilirubin (Negative) Urine Urobilinogen (Negative) Ur Leukocyte Esterase (Negative) Influenza Type A (PCR) Pos for Influ A A* (Neg) Influenza Type B (PCR) Neg for Influ B (Neg) 12/01/19 12/01/19 Range/Units 14:21 14:40 WBC (4.8-10.8) K/uL RBC (4.2-5.4) M/uL Hgb (12.0-16.0) g/dL Hct (37-47) % MCV (80-100) fL MCH (25-34) pg MCHC (32-36) g/dL RDW Std Deviation (36.4-46.3) fL RDW Coeff of Jame (11.5-14.5) % Plt Count (130-400) K/uL MPV (7.4-10.4) fL Immature Gran % (Auto) % Neut % (Auto) % Lymph % (Auto) % [place] % (Auto) % Eos % (Auto) % Baso % (Auto) % Immature Gran # (Auto) (0.00-0.02) K/uL Neut # (Auto) (1.4-6.5) K/uL Lymph # (Auto) (1.2-3.4) K/uL [place] # (Auto) (0.11-0.59) K/uL Eos # (Auto) (0-0.5) K/uL Baso # (Auto) (0-0.2) K/uL Ovalocytes PT (9.0-12.0) Seconds INR (0.9-1.1) APTT (21.0-31.0) Seconds PTT Ratio Sodium 140 (136-145) mmol/L Potassium 4.5 (3.5-5.1) mmol/L Chloride 106 (98-107) mmol/L Carbon Dioxide 32 (21-32) mmol/L Anion Gap 2.0 L (3-11) BUN 15 (7-18) mg/dl Creatinine 0.97 (0.6-1.2) mg/dl Est Cr Clr Drug Dosing 54.6 ml/min Est GFR ( Amer) 66.2 Est GFR (Non-Af Amer) 57.1 BUN/Creatinine Ratio 16.0 (10-20) Glucose 133 H (70-99) mg/dl Calcium 9.8 (8.5-10.1) mg/dl Total Bilirubin 0.3 (0.2-1) mg/dl AST 8 L (15-37) U/L ALT 16 (12-78) U/L Alkaline Phosphatase 143 H (45-117) U/L Troponin I < 0.015 (0-0.045) ng/ml NT-Pro-B Natriuret Pep 121 (0-900) pg/ml Total Protein 6.8 (6.4-8.2) gm/dl Albumin 3.2 L (3.4-5.0) gm/dl Globulin 3.6 (2.5-4.0) gm/dl Albumin/Globulin Ratio 0.9 (0.9-2) Urine Color Yellow Urine Appearance Clear (Clear) Urine pH 8.0 H (4.5-7.5) Ur Specific Kimberly 1.012 (1.000-1.030) Urine Protein Negative (Negative) Urine Glucose (UA) Negative (Negative) Urine Ketones Negative (Negative) Urine Blood Negative (Negative) Urine Nitrite Negative (Negative) Urine Bilirubin Negative (Negative) Urine Urobilinogen Negative (Negative) Ur Leukocyte Esterase Negative (Negative) Influenza Type A (PCR) (Neg) Influenza Type B (PCR) (Neg) Administered Medications Discontinued Medications Albuterol (Duoneb) 12 ml NEB ONE ONE Stop: 12/01/19 14:11 Last Admin: 12/01/19 14:23 Dose: 12 ml Documented by: [id number] Doxycycline Hyclate 100 mg/ (Dextrose) 110 mls @ 50 mls/hr IV NOW STA Stop: 12/01/19 18:18 Last Admin: 12/01/19 17:26 Dose: 50 mls/hr Documented by: [id number] Ceftriaxone Sodium (Rocephin) 1,000 mg in 50 mls @ 100 mls/hr IV NOW STA Stop: 12/01/19 16:36 Last Infusion: 12/01/19 17:26 Dose: 0 mls/hr Documented by: [id number] Admin: 12/01/19 16:40 Dose: 100 mls/hr Documented by: [id number] Methylprednisolone (Solumedrol) 125 mg IV NOW STA Stop: 12/01/19 14:11 Last Admin: 12/01/19 14:40 Dose: 125 mg Documented by: [id number] Oseltamivir Phosphate (Tamiflu) 75 mg PO NOW STA; Protocol Stop: 12/01/19 15:36 Last Admin: 12/01/19 15:58 Dose: 75 mg Documented by: [id number] Discharge Plan Visit Data Chief Complaint: Shortness of Breath/Dyspnea Stated Complaint: sob ED Provider: Fabrizio Herring Discharge Problem: COPD (chronic obstructive pulmonary disease), Influenza A, Pneumonitis Forms Stand Alone Forms: My [facility] [employer] Prescriptions Prescriptions: No Action budesonide 0.5 mg/2 mL suspension for nebulization 0.5 mg inhalation BID RF: 0 Brovana 15 mcg/2 mL solution for nebulization 15 mcg INHALATION BID RF: 0 Lantus Solostar U-100 Insulin 100 unit/mL (3 mL) insulin pen 15 unit subcut DAILY@2100 RF: 0 sucralfate 1 gram Tablet 1 g PO ACHS RF: 0 quetiapine 200 mg Tablet 200 mg PO HS RF: 0 levothyroxine 25 mcg Tablet 25 mcg PO QAM RF: 0 potassium chloride 20 mEq Tablet,Er Particles/Crystals 20 meq PO QAM RF: 0 famotidine 20 mg Tablet 20 mg PO QAM RF: 0 pantoprazole 40 mg Tablet,Delayed Release (Dr/Ec) 40 mg PO BID RF: 0 mirtazapine 30 mg tablet 30 mg PO HS RF: 0 montelukast 10 mg Tablet 10 mg PO HS RF: 0 metformin 500 mg Tablet Extended Release 24 Hr 500 mg PO BID RF: 0 cholecalciferol (vitamin D3) [Vitamin D3] 400 unit tablet 400 unit PO QAM RF: 0 Rohit-24 400 mg Capsule,Extended Release 24hr 400 mg PO QAM RF: 0 spironolactone 50 mg Tablet 100 mg PO QAM RF: 0 escitalopram oxalate 10 mg Tablet 15 mg PO QAM RF: 0 Daliresp 500 mcg Tablet 500 mcg PO QAM RF: 0 Xarelto 20 mg Tablet 20 mg PO QAM RF: 0 metoprolol succinate 25 mg Capsule,Sprinkle,Er 24hr 25 mg PO BID RF: 0 magnesium oxide 400 mg magnesium Tablet 400 mg PO BID RF: 0 Referrals Referrals: Anil Rodriguez [Primary Care Provider] -
[2019-12-01] MEDS ORDERED: ONDANSETRON INJ 2 MG/ML 2 ML VIAL IV PRN (18:54)
[2019-12-01] MEDS ORDERED: ACETAMINOPHEN 325 MG TAB PO PRN (18:54)
[2019-12-01] MEDS ORDERED: GLUCOSE 10 TABS/TUBE PO PRN (18:54)
[2019-12-01] MEDS ORDERED: GLUCOSE 40% GEL 15 GM TUBE PO PRN (18:54)
[2019-12-01] MEDS ORDERED: DEXTROSE 50% 50 ML SYRINGE IV PRN (18:54)
[2019-12-01] MEDS ORDERED: GLUCAGON FOR INJ 1 MG VIAL SQ PRN (18:54)
[2019-12-01] MEDS ORDERED: CARBOHYDRATES FOR HYPOGLYCEMIA PO PRN (18:54)
[2019-12-01] MEDS ORDERED: PHARMACY GLYCEMIC MGMT CONSULT PRN (19:11)
[2019-12-01] MEDS: methylPREDNISolone 40 MG in SYRINGE 0 ML IV SCH (19:51)
[2019-12-01] MEDS ORDERED: PNEUMOCOCCAL Polysaccharide Vaccine 25mcg/0.5mL vial/Syr IM ONE (20:00)
[2019-12-01] MEDS: FORMOTEROL 20 MCG/2 ML VIAL INH SCH (20:07)
[2019-12-01] MEDS: ALBUT/IPRATROP 3MG/0.5MG NEB 3 ML VIAL NEB SCH (20:07)
--- NOTE | 2019-12-01 20:53 | Pharmacy Report ---
Glycemic Control Consultation - Date of Service December 01, 2019 - Scope Scope: Glycemic Pharmacist consulted for glycemic control and to write orders per [facility] inpatient glycemic control protocol. - Objective Weight: 94 kg Accsarithaecks BSG (last 24hrs): 12/01/19 12/01/19 12/01/19 14:21 20:09 20:24 Glucose 133 H POC Glucose 264 H 260 H Laboratory Data (last 24hrs): 12/01/19 14:21 Potassium 4.5 Carbon Dioxide 32 Anion Gap 2.0 L Creatinine 0.97 Est Cr Clr Drug Dosing 54.6 - Recent Pertinent Medications Outpatient Anti-diabetic Regimen: * Lantus 15 units HS * Metformin 500 mg BID * A1c = 11.8% (03/02/2019) Risk Factors for Insulin Resistance: * Steroids: * Solumedrol 40 mg IV Q8H * Infection: * Flu A - Positive * Tamiflu 30 mg BID * Diet: * T2DM - Assessment & Plan Assessment & Plan: ASSESSMENT: * Patient is a 74 yo F admitted secondary to being influenza A positive * Most recent A1c on file shows uncontrolled T2DM * Patient is receiving IV glucocorticoids for COPD exacerbation as well PLAN FOR INPATIENT GLYCEMIC CONTROL: * Pt is maintained on oral antidiabetic agents as an outpatient * Oral agents are not recommended for inpatient use d/t drug interactions, changing PO intake, and difficulty titrating for acute hyper/hypoglycemia. ADA recommends re-initiating outpatient oral agents 1-2 days prior to discharge if/when appropriate if they were held on admission. * Will hold oral agents for admission and utilize SQ basal bolus insulin regimen which is the recommended regimen for inpatient glycemic control. * Will initiate weight based insulin dosing for insulin elza patient and titrate based on BSG trends. * Basal insulin * Lantus 25 units SQ x 1 (wt & stress 3) * Bolus insulin * NovoLog per scale ACHS or Q6hrs while NPO * Goal Range: Low 110 mg/dL - High 140 mg/dL * Correction Factor: 12 mg/dL/unit * Nutritional / Prandial insulin per carb ratio of 1 unit per 4 grams CHO consumed DISCHARGE RECOMMENDATIONS: * Pending at this time * Please note that the plan above was derived based on current level of insulin resistance and hospital stress. These recommendations are appropriate for inpatient admission only. Plan of care upon discharge will need to be reassessed to avoid potential outpatient hypo/hyperglycemia. Thank you.
[2019-12-01] MEDS ORDERED: FORMOTEROL 20 MCG/2 ML VIAL INH SCH (21:00)
[2019-12-01] MEDS ORDERED: METFORMIN HCL ER 500 MG TABCR PO SCH (21:00)
[2019-12-01] MEDS: INSULIN ASPART 100 UNITS/ML 3 ML PEN SC SCH (21:09)
[2019-12-01] MEDS: PANTOprazole 40 MG TAB PO SCH (21:09)
[2019-12-01] MEDS: SUCRALFATE 1 GM TAB PO SCH (21:09)
[2019-12-01] MEDS: INSULIN GLARGINE SOLOSTAR 100 UNITS/ML 3 ML PEN SQ SCH (21:09)
[2019-12-01] MEDS: MIRTAZAPINE TAB 15 MG TAB PO SCH (21:10)
[2019-12-01] MEDS: MAGNESIUM OXIDE 400 MG TAB PO SCH (21:10)
[2019-12-01] MEDS: MONTELUKAST SODIUM 10 MG TABLET PO SCH (21:10)
[2019-12-01] MEDS: QUETIAPINE FUMARATE 200 MG TAB PO SCH (21:11)
[2019-12-01] MEDS: METOPROLOL SUCC 25MG EXT REL TAB PO SCH (21:11)
[2019-12-02] MEDS: INSULIN ASPART 100 UNITS/ML 3 ML PEN SC SCH ×6 (00:39→20:51)
[2019-12-02] MEDS: ALBUT/IPRATROP 3MG/0.5MG NEB 3 ML VIAL NEB PRN ×2 (01:20→23:12)
[2019-12-02] MEDS: methylPREDNISolone 40 MG in SYRINGE 0 ML IV SCH ×3 (03:33→20:50)
[2019-12-02] MEDS: LEVOTHYROXINE SODIUM 25 MCG TABLET PO SCH (05:15)
[2019-12-02 06:21] LABS: Basophils # (auto) 0.01 K/uL (0-0.2); Basophils % (auto) 0.1 %; Hemoglobin 7.9 g/dL (12.0-16.0); Immature Granulocytes # (auto) 0.05 K/uL (0.00-0.02); Immature Granulocytes % (auto) 0.5 %; Lymphocytes # (auto) 0.67 K/uL (1.2-3.4); Lymphocytes % (auto) 6.7 %; Mean Corpuscular Hemoglobin 21.5 pg (25-34); Mean Corpuscular Hgb Conc 29.3 g/dL (32-36); Mean Corpuscular Volume 73.4 fL (80-100); Mean Platelet Volume 8.6 fL (7.4-10.4); Monocytes # (auto) 0.23 K/uL (0.11-0.59); Monocytes % (auto) 2.3 %; Neutrophils # (auto) 9.05 K/uL (1.4-6.5); Neutrophils % (auto) 90.4 %; Platelet Count 325 K/uL (130-400); RDW Standard Deviation 45.9 fL (36.4-46.3); Red Blood Count 3.68 M/uL (4.2-5.4); White Blood Count 10.01 K/uL (4.8-10.8)
[2019-12-02 06:44] LABS: Hypochromasia Present; Ovalocytes 1+
[2019-12-02 06:47] LABS: Estimated Average Glucose 180 mg/dl; Hemoglobin A1C 7.9 % (4.5-5.6)
[2019-12-02 06:51] LABS: BUN Creatinine Ratio 19.3 (10-20); Calcium 9.8 mg/dl (8.5-10.1); Creatinine Clr Calc Pharmacy 57.6 ml/min; Est GFR (African American) 70.6; Est GFR (Non-African American) 60.9; Magnesium 1.9 mg/dl (1.8-2.4); Potassium 4.4 mmol/L (3.5-5.1)
[2019-12-02] MEDS: ALBUT/IPRATROP 3MG/0.5MG NEB 3 ML VIAL NEB SCH ×4 (07:05→19:42)
--- NOTE | 2019-12-02 07:15 | Electrocardiogram Report ---
Test Reason : Blood Pressure : / mmHG Vent. Rate : 063 BPM Atrial Rate : 063 BPM P-R Int : 164 ms QRS Dur : 068 ms QT Int : 408 ms P-R-T Axes : 052 015 046 degrees QTc Int : 417 ms Normal sinus rhythm Normal ECG When compared with ECG of 19-FEB-2019 23:08, QT has shortened Confirmed by Sushant Morales ([id number]) on 12/02/2019 7:14:46 AM Referred By: ER Confirmed By:Sushant Morales
[2019-12-02] MEDS: SUCRALFATE 1 GM TAB PO SCH ×4 (07:42→20:49)
[2019-12-02] MEDS: POTASSIUM CHLORIDE 20 MEQ TABCR PO SCH (07:43)
[2019-12-02] MEDS: SPIRONOLACTONE 100 MG TAB PO SCH (07:43)
[2019-12-02] MEDS: ROFLUMILAST 500 MCG TAB PO SCH (07:43)
[2019-12-02] MEDS: FAMOTIDINE 20 MG TAB PO SCH (07:44)
[2019-12-02] MEDS: PANTOprazole 40 MG TAB PO SCH ×2 (07:44→20:50)
[2019-12-02] MEDS: OSELTAMIVIR PHOSPHATE SUSP 30 MG/5 ML UDP PO SCH ×2 (07:45→20:51)
[2019-12-02] MEDS: ESCITALOPRAM OXALATE 10 MG TAB PO SCH (07:45)
[2019-12-02] MEDS: RIVAROXABAN 20 MG TAB PO SCH (07:45)
[2019-12-02] MEDS: THEOPHYLLINE 400 MG EXTENDED REL TAB PO SCH (07:45)
[2019-12-02] MEDS: METOPROLOL SUCC 25MG EXT REL TAB PO SCH ×2 (07:47→20:50)
[2019-12-02] MEDS: CHOLECALCIFEROL (VITAMIN D) 400 UNITS TABLET PO SCH (07:47)
[2019-12-02] MEDS ORDERED: COUGH DROP (SUGAR FREE) LOZ 24 LOZ/1 BOX BUCCAL ONE (07:54)
[2019-12-02] MEDS ORDERED: COUGH DROP (SUGAR FREE) LOZ 24 LOZ/1 BOX BUCCAL PRN (07:55)
[2019-12-02] MEDS: MAGNESIUM OXIDE 400 MG TAB PO SCH ×2 (07:57→20:50)
--- NOTE | 2019-12-02 09:01 | Hospitalist Progress Note ---
Date of Service December 02, 2019 Assessment & Plan (1) COPD exacerbation: Mrs. Clemons is a 74 yo F admitted 11/30 for acute exacerbation of COPD, thought to be secondary to Influenza A infection. - satting 92% on 2L of oxygen via NC, which is baseline O2 requirement - patient loaded with IV Solu-Medrol in ED; continue 40mg, TID - continue Duo-Nebs QID, scheduled + additional doses as needed for wheezing - continue home inhalers Spiriva, Daliresp and theophylline - Azithromax indicated, however patient with history of QT prolongation. will continue doxycycline for anti-inflammatory effect instead - treat influenza as below (2) Influenza A: - Day 1 of 5 of Tamiflu - CXR showing bilateral, hazy airspace opacities concerning for pneumonitis - WBC normal - patient afebrile, not tachycardiac or tachypneic - sputum culture ordered - patient received one dose of IV Rocephin and Doxycycline in ED for coverage of a co-existing pneumonia; clinically this appears unlikely; will discontinue Rocephin but continue doxycycline in the setting of COPD exacerbation - droplet precautions (3) Acute on chronic combined systolic (congestive) and diastolic (congestive) heart failure: - continue home dose metoprolol and spironolactone - electrolytes and Cr WNL (4) Diabetes: - A1c 7.9 on admission - home regimen is metformin and Lantus 15 units daily - hold metformin while in hospital, continue Lantus and sliding scale insulin (5) Anemia: - Hgb 7.9, MCV 73 - chart review indicates this is a chronic problem, although patient appears to be at least 1 point below baseline - no obvious bleeding source - hemo occult stool ordered - iron studies ordered - consider outpatient colonoscopy (6) Pulmonary embolism: - history of PE - on chronic anticoagulation with Xarleto (7) Hypothyroid: - continue home dose levothyroxine (8) KATHLEEN (generalized anxiety disorder): - continue home escitalopram, Remeron and Seroquel (9) Acid reflux: - continue famotidine, protonix and carafate Code Status: Full Diet: DM 2 DVT: on xarelto Dispo: Med/Surg; PT/OT ordered Admission and Anticipated Discharge Date Admission Date: December 01, 2019 Supervising Physician Co-Signing Physician Notes I personally examined the patient and verified all pichardo points of history and exam, discussed case, and agree with decision making with Dr Mott. feeling better than when she came in but still not well. breathing is easier than yesterday. notes caregiver had cough/sneeze a week or so before. vitals noted nad heent nc at mmm lungs diminished throughout but nothing focal no focal r/r/w good effort no accessory muscles. COPD exacerbation/respiratory distress related to flu superimposed on COPD - appears no pneumonia - basilar lung findings appearing c/w prior xrays, lung findings nonfocal, hx/sx more c/w flu+COPD than concomitant pneumonia. manage as such - tamiflu for flu, doxy/steroids/nebs/etc for COPD exacerbation. work towards home as quickly as is safe. anemia - iron studies, heme test stools, never had colo. if heme (+) or iron deficient will have to consider risk/benefit of diagnostic colo otherwise as above Subjective Patient reports breathing is better on admission, but not yet back to baseline. Believes one of her home caregivers gave her the flu. Reports hx of anemia "as a young girl." Never had a colonoscopy. No blood in urine or stool. Review of Systems Respiratory: + dyspnea Physical Exam Constitutional: WD/WN, vitals as above Eyes: + anicteric sclerae ENMT: external ear and nose normal, oropharynx normal Neck: normal visual inspection and trachea midline Respiratory: normal respiratory effort Auscultation: + wheezes (diffusely throughout all lung max); no crackles, no rales and no rhonchi Cardiovascular: RRR, no murmur, no edema Heart Sounds: normal S1 and normal S2 Extremities: no pedal edema Skin: no rashes, warm and dry Psychiatric: A+Ox3, euthymic affect Results & Data ([facility]) Vital Signs (Past 12 Hours) Vital Signs Temp Pulse Pulse Resp BP Pulse Ox 12/02/19 07:16 36.6 C 73 16 135/62 92 12/02/19 07:05 74 18 92 12/02/19 04:00 35.8 C L 80 22 138/60 93 12/02/19 01:20 90 20 92 12/01/19 23:15 36.8 C 85 18 127/66 93 12/01/19 23:14 88 Resident Activity Tracking Resident Involvement: Resident Care Provided Care Provided: Adult Hospital Medicine (1) Diabetes Diabetes mellitus complication status: without complication Diabetes mellitus manager terminal insulin use: with group home use Diabetes mellitus type: type 2 Qualified Code(s): E11.9 - Type 2 diabetes mellitus without complications; Z79.4 - MCFP (current) use of insulin (2) Anemia Anemia type: unspecified type Qualified Code(s): D64.9 - Anemia, unspecified
[2019-12-02] MEDS: FORMOTEROL 20 MCG/2 ML VIAL INH SCH ×2 (09:05→20:00)
[2019-12-02 12:28] LABS: Ferritin 5.5 ng/ml (8-388)
--- NOTE | 2019-12-02 15:09 | Billing Data ---
Date of Service December 02, 2019 Coding Level of Care Code 47634 Subseq Hosp Care Lvl 3
[2019-12-02] MEDS: FERROUS GLUCONATE 324 MG TAB PO SCH (20:49)
[2019-12-02] MEDS: INSULIN GLARGINE SOLOSTAR 100 UNITS/ML 3 ML PEN SQ SCH (20:50)
[2019-12-02] MEDS: QUETIAPINE FUMARATE 200 MG TAB PO SCH (20:50)
[2019-12-02] MEDS: MIRTAZAPINE TAB 15 MG TAB PO SCH (20:50)
[2019-12-02] MEDS: MONTELUKAST SODIUM 10 MG TABLET PO SCH (20:51)
[2019-12-03] MEDS: LEVOTHYROXINE SODIUM 25 MCG TABLET PO SCH (05:01)
[2019-12-03] MEDS: methylPREDNISolone 40 MG in SYRINGE 0 ML IV SCH ×2 (05:01→11:13)
[2019-12-03] MEDS: ALBUT/IPRATROP 3MG/0.5MG NEB 3 ML VIAL NEB PRN (05:13)
--- NOTE | 2019-12-03 06:55 | Hospitalist Progress Note ---
Date of Service December 03, 2019 Assessment & Plan (1) COPD exacerbation: Mrs. Clemons is a 74 yo F admitted 11/30 for acute exacerbation of COPD, thought to be secondary to Influenza A infection. 1) COPD Exacerbation - satting 92% on 3L of oxygen via NC, baseline O2 requirement of 2L - patient loaded with IV Solu-Medrol in ED; continue 40mg, TID - continue Duo-Nebs QID, scheduled + additional doses as needed for wheezing - continue home inhalers Spiriva, Daliresp and theophylline - Azithromax indicated, however patient with history of QT prolongation. will continue doxycycline for anti-inflammatory effect instead - treat influenza as below 2) Influenza A - Day 2 of 5 of Tamiflu - CXR showing bilateral, hazy airspace opacities concerning for pneumonitis - WBC normal - patient afebrile, not tachycardiac or tachypneic - sputum culture ordered - patient received one dose of IV Rocephin and Doxycycline in ED for coverage of a co-existing pneumonia; clinically this appears unlikely; will discontinue Rocephin but continue doxycycline in the setting of COPD exacerbation - droplet precautions 3) Hx combined CHF - continue home dose metoprolol and spironolactone - electrolytes and Cr WNL 4) Diabetes Mellitus - A1c 7.9 on admission - home regimen is metformin and Lantus 15 units daily - hold metformin while in hospital, continue Lantus and sliding scale insulin 5) Anemia - Hgb 7.9, MCV 73 - chart review indicates this is a chronic problem, although patient appears to be at least 1 point below baseline - no obvious bleeding source - hemo occult stool ordered - iron studies ordered - consider outpatient colonoscopy 6) Hx PE - history of PE - on chronic anticoagulation with Xarleto 7) Hypothyroidism - continue home dose levothyroxine 8) KATHLEEN - continue home escitalopram, Remeron and Seroquel 9) GERD - continue famotidine, protonix and carafate Code Status: Full Diet: DM 2 DVT: on xarelto Dispo: Med/Surg; PT/OT ordered (2) Influenza A: (3) Acute on chronic combined systolic (congestive) and diastolic (congestive) heart failure: (4) Diabetes: (5) Anemia: (6) Pulmonary embolism: (7) Hypothyroid: (8) KATHLEEN (generalized anxiety disorder): (9) Acid reflux: Admission and Anticipated Discharge Date Admission Date: December 01, 2019 Results & Data ([facility]) Vital Signs (Past 12 Hours) Vital Signs Temp Pulse Pulse Resp BP Pulse Ox 12/03/19 05:13 76 20 95 12/03/19 03:48 36.5 C 77 18 136/63 93 12/03/19 00:03 79 12/02/19 23:25 36.6 C 82 18 141/61 H 91 12/02/19 23:15 75 18 96 12/02/19 19:47 98 H 24 95 12/02/19 19:20 36.7 C 79 22 121/66 96 (1) Diabetes Diabetes mellitus type: type 2 Diabetes mellitus half-way insulin use: with half-way use Diabetes mellitus complication status: without complication Qualified Code(s): E11.9 - Type 2 diabetes mellitus without complications; Z79.4 - jail (current) use of insulin (2) Anemia Anemia type: unspecified type Qualified Code(s): D64.9 - Anemia, unspecified
[2019-12-03] MEDS: ALBUT/IPRATROP 3MG/0.5MG NEB 3 ML VIAL NEB SCH ×3 (07:09→15:11)
[2019-12-03] MEDS: FORMOTEROL 20 MCG/2 ML VIAL INH SCH (07:09)
[2019-12-03 07:22] LABS: Hematocrit (blood only) 26.9 % (37-47); Hemoglobin 7.7 g/dL (12.0-16.0); Mean Corpuscular Hgb Conc 28.6 g/dL (32-36); Mean Corpuscular Volume 73.3 fL (80-100); Mean Platelet Volume 9.1 fL (7.4-10.4); Platelet Count 381 K/uL (130-400); RDW Coefficient of Variation 17.5 % (11.5-14.5); RDW Standard Deviation 47.4 fL (36.4-46.3); Red Blood Count 3.67 M/uL (4.2-5.4); White Blood Count 15.84 K/uL (4.8-10.8)
[2019-12-03 07:37] LABS: Basophils # (auto) 0.01 K/uL (0-0.2); Basophils % (auto) 0.1 %; Hypochromasia Present; Immature Granulocytes # (auto) 0.09 K/uL (0.00-0.02); Immature Granulocytes % (auto) 0.6 %; Lymphocytes % (auto) 5.1 %; Monocytes # (auto) 0.63 K/uL (0.11-0.59); Neutrophils # (auto) 14.31 K/uL (1.4-6.5); Neutrophils % (auto) 90.2 %
[2019-12-03 07:49] LABS: Creatinine Clr Calc Pharmacy 47.7 ml/min; Est GFR (African American) 56.3; Est GFR (Non-African American) 48.5
[2019-12-03] MEDS: SUCRALFATE 1 GM TAB PO SCH ×2 (07:50→11:13)
[2019-12-03] MEDS: INSULIN ASPART 100 UNITS/ML 3 ML PEN SC SCH ×2 (07:51→12:17)
[2019-12-03] MEDS: METOPROLOL SUCC 25MG EXT REL TAB PO SCH (07:53)
[2019-12-03] MEDS: OSELTAMIVIR PHOSPHATE SUSP 30 MG/5 ML UDP PO SCH (07:53)
[2019-12-03] MEDS: THEOPHYLLINE 400 MG EXTENDED REL TAB PO SCH (07:53)
[2019-12-03] MEDS: POTASSIUM CHLORIDE 20 MEQ TABCR PO SCH (07:54)
[2019-12-03] MEDS: SPIRONOLACTONE 100 MG TAB PO SCH (07:54)
[2019-12-03] MEDS: FAMOTIDINE 20 MG TAB PO SCH (07:54)
[2019-12-03] MEDS: ROFLUMILAST 500 MCG TAB PO SCH (07:54)
[2019-12-03] MEDS: FERROUS GLUCONATE 324 MG TAB PO SCH (07:55)
[2019-12-03] MEDS: PANTOprazole 40 MG TAB PO SCH (07:55)
[2019-12-03] MEDS: RIVAROXABAN 20 MG TAB PO SCH (07:55)
[2019-12-03] MEDS: CHOLECALCIFEROL (VITAMIN D) 400 UNITS TABLET PO SCH (07:55)
[2019-12-03] MEDS: ESCITALOPRAM OXALATE 10 MG TAB PO SCH (07:56)
[2019-12-03] MEDS: MAGNESIUM OXIDE 400 MG TAB PO SCH (07:56)
[2019-12-03] MEDS ORDERED: INSULIN GLARGINE SOLOSTAR 100 UNITS/ML 3 ML PEN SQ ONE (08:15)
[2019-12-03] MEDS ORDERED: DOXYCYCLINE HYCLATE 100 MG CAP PO SCH (10:00)
[2019-12-03 11:43] VITALS: BP 131/73; TEMP 97.3
--- NOTE | 2019-12-03 12:40 | Discharge Summary ---
Date of Service December 03, 2019 Admission HPI Per Admitting Provider This is a 74-year-old female with past medical history chronic combined CHF, hypertension, diabetes, hypothyroidism, COPD that presents today complaining shortness of breath and cough. Patient is a good historian but somewhat limited secondary to coughing. Patient tells me symptoms started approximately 1.5 weeks ago. This initially started with a cough that was dry. This became more hacking in nature. She noticed some dyspnea on exertion which became worse. It worsened to the point that any effort on the part the patient made her very winded. She has had subjective fevers with chills, did not take her temperature at home. She notes some mildly diminished appetite but has been drinking a lot of fluids with no issues. Has not had any nausea or vomiting. She has some chest wall soreness secondary to cough. At time of evaluation, patient was coughing repeatedly, difficult to get words out and occasion. Overall, patient tells me she is mostly homebound, ambulates with a walker. She has 2 aides that come to the house daily but otherwise has very little contact and denies any recent sick contacts. She denies any recent travel. Admission Exam Per Admitting Provider Constitutional: cooperative, + in distress (Mild distress from coughing and shortness of breath) and + overweight Neck: trachea midline, no thyromegaly Respiratory: normal respiratory effort and + cough Auscultation: + rhonchi, + wheezes and + bronchovesicular breath sounds; no crackles and no rales Cardiovascular: Rate/Rhythm: regular rate and regular rhythm Heart Sounds: normal S1 and normal S2 Vessels: no JVD and no carotid bruit Extremities: no pedal edema Gastrointestinal (Abdomen): Inspection/Auscultation: abdomen normal to ins pection Percussion/Palpation: abdomen soft; abdomen nontender, no guarding, abdomen not rigid and no hepatosplenomegaly Skin: no rashes, warm and dry Neurologic: PERRL, EOMI, accommodation nl, no face palsy, no dysarthria Principal Diagnosis COPD Exacerbation 2/2 Flu A Discharge Exam Constitutional WD/WN, vitals as above Eyes + anicteric sclerae ENMT external ear and nose normal, oropharynx normal Neck normal visual inspection and trachea midline Respiratory normal respiratory effort Auscultation: + wheezes (diffusely throughout all lung max); no crackles, no rales and no rhonchi Cardiovascular RRR, no murmur, no edema Heart Sounds: normal S1 and normal S2 Vessels: no JVD Extremities: no calf tenderness, no pedal edema and no edema Gastrointestinal (Abdomen) Inspection/Auscultation: abdomen normal to inspection and normal bowel sounds Skin no rashes, warm and dry Psychiatric A+Ox3, euthymic affect Discharge Data Allergies Allergy/AdvReac Type Severity Reaction Status Date / Time rabies vaccine, duck-embryo Allergy Severe HIVES Verified 12/01/19 14:05 ragweed pollen Allergy Unknown UNKNOWN Verified 12/01/19 14:05 tomato Allergy Unknown HIVES Verified 12/01/19 14:05 Consultations 12/01/19 16:28 ED Decision to Admit Stat Hospital Course (1) COPD exacerbation: Mrs. Clemons is a 74 yo F admitted 11/30 for acute exacerbation of COPD, thought to be secondary to Influenza A infection. 1) COPD Exacerbation - Had slight increase in O2 requirement at 3L, home use of 2L, will continue with 3L at home until able to wean back to 2L. - patient was loaded with IV Solu-Medrol in ED; Continued with methylpred 40mg, TID; Discharged on 12 day prednisone taper. - continued Duo-Nebs QID, scheduled + additional doses as needed for wheezing - continued home inhalers Spiriva, Daliresp and theophylline - Azithromax indicated, however patient with history of QT prolongation. Started on doxycycline for anti-inflammatory effect instead, 1 week course upon discharge. 2) Influenza A - Day 2 of 5 of Tamiflu, discharged with remainin 3 days. - CXR showed bilateral, hazy airspace opacities concerning for pneumonitis, however, WBC was normal and patient was clinically stable - patient received one dose of IV Rocephin and Doxycycline in ED for coverage of a co-existing pneumonia; clinically this appears unlikely; Rocephin was dc'd. - droplet precautions 3) Hx combined CHF - continued home dose metoprolol and spironolactone - electrolytes and Cr WNL - Patient did not appear to be in CHF exacerbation during her stay. 4) Diabetes Mellitus - A1c 7.9 on admission - home regimen is metformin and Lantus 15 units daily - hold metformin while in hospital, continued Lantus and sliding scale insulin 5) Anemia - Hgb 7.9, MCV 73 - chart review indicates this is a chronic problem, although patient appears to be at least 1 point below baseline - no obvious bleeding source - hemo occult stool ordered, but was never collected. - iron studies ordered which showed low Ferritin and Iron - Started on Ferrous Gluconate 324mg PO QD - consider outpatient colonoscopy 6) Hx PE - history of PE - on chronic anticoagulation with Xarelto, continued. 7) Hypothyroidism - continued home dose levothyroxine 8) KATHLEEN - continued home escitalopram, Remeron and Seroquel 9) GERD - continued famotidine, protonix and carafate (2) Influenza A: (3) Acute on chronic combined systolic (congestive) and diastolic (congestive) heart failure: (4) Diabetes: (5) Anemia: (6) Pulmonary embolism: (7) Hypothyroid: (8) KATHLEEN (generalized anxiety disorder): (9) Acid reflux: Total Time Total Time Spent Total Time Spent (In Minutes): <30 Discharge Plan Discharge Items Patient Disposition: Home - Self-Care Reason For Visit: INFLUENZA Discharge Diagnosis: COPD exacerbation, Influenza Condition on Discharge: Good Activity: Resume your previous activity Non-emergency contact: Primary Care Provider Call non-emergency contact if: your symptoms worsen Follow-up/Referrals: Anil Rodriguez [Primary Care Provider] - (Please call your primary care physician to set up an appointment.) Diet: Carb Consistent or DM2 Addtl Attending Provider Instructions: You were hospitalized for evaluation of worsening shortness of breath. The cause of your shortness of breath was from an acute exacerbation of your COPD. You also tested positive for influenza on admission, which likely is responsible for causing your COPD exacerbation. COPD exacerbation You were treated with IV steroids, nebulizer treatments, oxygen therapy and the antibiotic doxycycline.Your breathing improved by the time of discharge -Please continue your doxycycline for the next 7 days, 1 pill twice a day. -Please continue your steroid taper as prescribed for the next 12 days, please note the label on the bottle for how to complete the course. Influenza You were treated with an anti-viral medication known as Tamiflu. Please continue to take Tamiflu for the following 3 days after discharge. Anemia You were also found to be anemic while in the hospital. Iron studies showed that your iron levels were fairly low, likely being a reason for your low counts. -You were started on an iron supplement while inpatient, please continue to take this as prescribed. -Please follow up with your PCP so that they may repeat labs at their discretion. Please continue your other home medications as they are prescribed to you. If your symptoms worsen, please call your PCP's office or return to the ED for evaluation. Pending Studies at Discharge: No Stand-Alone Forms: [facility] CHF Dc Instructions, My [facility], Smoking Cessation Medications and DC Order Prescriptions: New doxycycline hyclate 100 mg Capsule 100 mg PO BID@1000,1900 7 Days Qty: 14 RF: 0 ferrous gluconate 324 mg (38 mg iron) Tablet 324 mg PO DAILY@0730 Qty: 30 RF: 1 oseltamivir 30 mg capsule 30 mg PO BID 3 Days Qty: 6 RF: 0 prednisone 10 mg tablet See Rx Instructions .ROUTE .COMPLEX 12 Days Qty: 42 RF: 0 Continued budesonide 0.5 mg/2 mL suspension for nebulization 0.5 mg inhalation BID RF: 0 Brovana 15 mcg/2 mL solution for nebulization 15 mcg INHALATION BID RF: 0 Lantus Solostar U-100 Insulin 100 unit/mL (3 mL) insulin pen 15 unit subcut DAILY@2100 RF: 0 sucralfate 1 gram Tablet 1 g PO ACHS RF: 0 quetiapine 200 mg Tablet 200 mg PO HS RF: 0 levothyroxine 25 mcg Tablet 25 mcg PO QAM RF: 0 potassium chloride 20 mEq Tablet,Er Particles/Crystals 20 meq PO QAM RF: 0 famotidine 20 mg Tablet 20 mg PO QAM RF: 0 pantoprazole 40 mg Tablet,Delayed Release (Dr/Ec) 40 mg PO BID RF: 0 mirtazapine 30 mg tablet 30 mg PO HS RF: 0 montelukast 10 mg Tablet 10 mg PO HS RF: 0 metformin 500 mg Tablet Extended Release 24 Hr 500 mg PO BID RF: 0 cholecalciferol (vitamin D3) [Vitamin D3] 400 unit tablet 400 unit PO QAM RF: 0 Rohit-24 400 mg Capsule,Extended Release 24hr 400 mg PO QAM RF: 0 spironolactone 50 mg Tablet 100 mg PO QAM RF: 0 escitalopram oxalate 10 mg Tablet 15 mg PO QAM RF: 0 Daliresp 500 mcg Tablet 500 mcg PO QAM RF: 0 Xarelto 20 mg Tablet 20 mg PO QAM RF: 0 metoprolol succinate 25 mg Capsule,Sprinkle,Er 24hr 25 mg PO BID RF: 0 magnesium oxide 400 mg magnesium Tablet 400 mg PO BID RF: 0 Discharge Orders: Discharge Order (Routine); Ordered 12/03/19 Ordered By: Clem Medrano/Other Patient Handouts: Hyperglycemia, Hypoglycemia, Blood Sugar Check Admission Data Admit Date/Time: 12/01/19 17:11 Attending Provider: Jose Osorio Admit Provider: Edy Burton Primary Care Provider: Anil Rodriguez Other Providers: Edy Burton Other Interventions: Discharge Summary Assessment (RN) Last Done: 12/03/19 13:25 Supervising Physician Co-Signing Physician Notes I personally examined the patient and verified all pichardo points of history and exam, discussed case, and agree with decision making with Dr Guillen. breathing better, notes she feels "80% better" and after discussion feels up to going home discussed finishing course of treatment, discussed sending sick caregivers home/asking for replacement vitals noted nad heent nc at mmm lungs better air entry then yseterday faint wheeze L mid lung but appears to be mostly due to better overall air entry in this area as well. no accessoy muscles; skin no rashes no pallor or icterus acute on chronic hypoxic respiratory failure related to flu present on admission - no pneumonia (doxy for COPD exacerbation), tamiflu, supportive care, stable for home COPD exac - steroids, inhalers (notes at home she takes spiriva and nebs - to continue) stable for home, otherwise as above Resident Activity Tracking Resident Involvement: Resident Care Provided Care Provided: Adult Hospital Medicine
--- NOTE | 2019-12-03 15:06 | Billing Data ---
Date of Service December 03, 2019 Coding Level of Care Code D/C Day Management <30 mins
[2019-12-03 15:11] VITALS: PULSE 70; O2SAT 97
[2019-12-03] MEDS ORDERED: MAGNESIUM OXIDE 400 MG TAB PO SCH (21:00)
[2019-12-04] MEDS ORDERED: FERROUS GLUCONATE 324 MG TAB PO SCH (07:30)
== END 2019-12-03 16:33 | disposition home or self-care (01) | DRG 193 ==
LOC: ED 13:15 → 2W 17:11 → SUATTDRO 17:11 → 2W 18:14

== ENCOUNTER 2020-05-22 17:00 | Inpatient (IN) ==
[2020-05-22] MEDS ORDERED: MAGNESIUM SULFATE / D5W 1 GM/100 ML BAG IV ONE (17:09)
[2020-05-22] MEDS ORDERED: ALBUTEROL HFA 8 GM INHALER INH ONE (17:09)
[2020-05-22] MEDS ORDERED: methylPREDNISolone 125 MG/2 ML VIAL IV STA (17:09)
--- NOTE | 2020-05-22 17:26 | XRay Report ---
XR chest 1V portable CLINICAL HISTORY: Chest pain. COMPARISON STUDY: Chest radiograph December 01, 2019. FINDINGS: Lung volumes are normal. There is no pneumothorax or pleural effusion. Cardiomediastinal si lhouette is stable. Apparent mild left basilar opacity is unchanged. There is no evidence for pulmona ry edema. There is no convincing evidence for pneumonia. IMPRESSION: 1. No definite acute findings. 2. Hazy left basilar opacity which likely reflects atelectasis or artifact. ACT 112: Negative or not required by law. Electronically signed by: Rick Canchola M.D. 05/22/2020 5:25 PM
[2020-05-22 17:43] LABS: Basophils # (auto) 0.01 K/uL (0-0.2); Basophils % (auto) 0.1 %; Eosinophils # (auto) 0.19 K/uL (0-0.5); Eosinophils % (auto) 1.6 %; Hematocrit (blood only) 33.4 % (37-47); Hemoglobin 9.6 g/dL (12.0-16.0); Immature Granulocytes # (auto) 0.03 K/uL (0.00-0.02); Immature Granulocytes % (auto) 0.3 %; Lymphocytes # (auto) 2.64 K/uL (1.2-3.4); Lymphocytes % (auto) 22.1 %; Mean Corpuscular Hemoglobin 23.2 pg (25-34); Mean Corpuscular Hgb Conc 28.7 g/dL (32-36); Mean Corpuscular Volume 80.7 fL (80-100); Mean Platelet Volume 8.8 fL (7.4-10.4); Monocytes % (auto) 5.9 %; Neutrophils # (auto) 8.36 K/uL (1.4-6.5); Platelet Count 248 K/uL (130-400); RDW Coefficient of Variation 18.7 % (11.5-14.5); RDW Standard Deviation 54.9 fL (36.4-46.3); Red Blood Count 4.14 M/uL (4.2-5.4); White Blood Count 11.93 K/uL (4.8-10.8)
[2020-05-22 17:52] LABS: INR 1.1 (0.9-1.1); Partial Thromboplastin Ratio 0.8; Partial Thromboplastin Time 21.7 Seconds (21.0-31.0)
[2020-05-22 18:02] LABS: Alanine Aminotransferase 20 U/L (12-78); Albumin Level 2.9 gm/dl (3.4-5.0); Aspartate Aminotransferase 10 U/L (15-37); BUN Creatinine Ratio 24.3 (10-20); Blood Urea Nitrogen 24 mg/dl (7-18); Calcium 10.2 mg/dl (8.5-10.1); Carbon Dioxide 33 mmol/L (21-32); Chloride 100 mmol/L (98-107); Creatinine Clr Calc Pharmacy 54.5 ml/min; Est GFR (African American) 64.6; Est GFR (Non-African American) 55.7; Glucose 250 mg/dl (70-99); Lipase 148 U/L (73-393); Potassium 4.7 mmol/L (3.5-5.1); Sodium 138 mmol/L (136-145)
[2020-05-22 18:07] LABS: Albumin Globulin Ratio 0.9 (0.9-2); Alkaline Phosphatase 104 U/L (45-117); Bilirubin,Total 0.2 mg/dl (0.2-1); Globulin 3.4 gm/dl (2.5-4.0); NT Pro B Type Natriuretic Pept 126 pg/ml (0-900); Total Protein 6.3 gm/dl (6.4-8.2); Troponin I < 0.015 ng/ml (0-0.045)
[2020-05-22] MEDS ORDERED: ALBUT/IPRATROP 3MG/0.5MG NEB 3 ML VIAL NEB STA (19:24)
[2020-05-22] MEDS ORDERED: GLUCOSE 40% GEL 15 GM TUBE PO PRN (21:20)
[2020-05-22] MEDS ORDERED: CARBOHYDRATES FOR HYPOGLYCEMIA PO PRN (21:20)
[2020-05-22] MEDS ORDERED: ONDANSETRON INJ 2 MG/ML 2 ML VIAL IV PRN (21:20)
[2020-05-22] MEDS ORDERED: ACETAMINOPHEN 325 MG TAB PO PRN (21:20)
[2020-05-22] MEDS ORDERED: GLUCAGON FOR INJ 1 MG VIAL SQ PRN (21:20)
[2020-05-22] MEDS ORDERED: GLUCOSE 10 TABS/TUBE PO PRN (21:20)
[2020-05-22] MEDS ORDERED: DEXTROSE 50% 50 ML SYRINGE IV PRN (21:20)
[2020-05-22] MEDS ORDERED: PHARMACY GLYCEMIC MGMT CONSULT PRN (21:42)
[2020-05-22] MEDS ORDERED: INSULIN GLARGINE SOLOSTAR 100 UNITS/ML 3 ML PEN SC ONE (21:45)
--- NOTE | 2020-05-22 22:01 | History & Physical Report ---
Date of Service May 22, 2020 Assessment & Plan (1) SOB (shortness of breath): Mini Clemons is a 74 year old woman witha past medical history signfiicant for severe COPD and CHF here for COPD exacerbation COPD exacerbation Advanced COPD (No PFT's on record 2L at home), has had about three dozen admissions to hospital in last several years most recently 10 days ago at [facility] where she was discharged on PO steroids but yet has still gotten progressively short of breath. Will admit and put on IV methypred 40 mg q6h azithromycin IV daily continuing home inhalers duonebs PRN Pulmonology consulted for frequent admissions Case management consult placed for frequent admissions Lives independently CHF Mild 1+ pitting edema on bilateral lower extremities mild jugular venous distension CXR not showing pulmonary edema, do not believe CHF is major contributor to her current shortness of breath DMII Holding home metformin, placing on insulin sliding scale 10 units basal F/E/N: Low sodium diet DVT PPx: Rivaroxaban for blood clots Dispo: Admit for COPD exacerbation, Pulm consulted for any further recommendation to try to see if there's any changes that can be made to patient's home regime to improve QOL Full Code (2) COPD exacerbation: (3) Lower extremity edema: (4) Anemia: (5) CHF (congestive heart failure): (6) Acid reflux: Admission and Anticipated Discharge Date Admission Date: May 22, 2020 History of Present Illness Chief Complaint: Shortness of Breath Primary Care Provider: Anil Rodriguez Mini Clemons is a 74 year old woman with a history of severe COPD CHF, pulmonary embolism who is been admitted dozens of times over the last several years to both [facility] and [facility]. Most recently she was admitted at [facility] about 10 days ago. Since that time she is continuously felt short of breath and it has become more and more severe each day. Today she felt like she could not even get herself dressed and ready. So she called EMS who came to evaluate her. Of note patient does live alone and uses a life alert to call EMS. When EMS found her she was working very hard to breathe pulse ox in the 70s on 2 L which is her baseline oxygen requirement. Patient was brought in by ambulance given a breathing treatment and respiratory symptoms rapidly improved. Currently she feels about at her baseline in terms of breathing, she tells me that she takes all of her medi cations as prescribedincluding Brovana budesonide Daliresp and montelukast as well as finishing her steroid taper from her previous hospitalization. She is very concerned that she is lasting such a short period of time out of the hospital before she gets sick again. She also endorses a cough and some reproducible chest pain across the front of her chest exacerbated by cough. She denies any other symptoms specifically she denies fevers chills shortness of breath, any sick contacts, GI symptoms, urinary symptoms, she endorses her usual mild leg swelling but says that this is not gotten any worse she sleeps upright secondary to her CHF, no changes to the angle which she is able to sleep comfortably. She is in close her baseline now denies interview goes on she is becoming more more short of breath and request of breathing treatment. She does not smoke anymore though she does have a 84-58-qsdc-year smoking history, quit 8 years ago, she does not use marijuana or any other inhaled drugs she does not use any illicit drugs, she does not drink alcohol. She is a full code. Allergies Allergy/AdvReac Type Severity Reaction Status Date / Time rabies vaccine, duck-embryo Allergy Severe HIVES Verified 05/22/20 19:23 ragweed pollen Allergy Unknown UNKNOWN Verified 05/22/20 19:23 tomato Allergy Unknown HIVES Verified 05/22/20 19:23 Home Medications Home Medications Medication Instructions Recorded Confirmed Type Daliresp 500 mcg PO QAM 02/10/19 05/22/20 History Rohit-24 400 mg PO QAM 02/10/19 05/22/20 History Xarelto 20 mg PO QAM 02/10/19 05/22/20 History cholecalciferol (vitamin D3) 400 unit PO QAM 02/10/19 05/22/20 History [Vitamin D3] escitalopram oxalate 15 mg PO QAM 02/10/19 05/22/20 History famotidine 20 mg PO QAM 02/10/19 05/22/20 History levothyroxine 25 mcg PO QAM 02/10/19 05/22/20 History metformin 500 mg PO BID 02/10/19 05/22/20 History metoprolol succinate 25 mg PO BID 02/10/19 05/22/20 History mirtazapine 30 mg PO 02/10/19 05/22/20 History montelukast 10 mg PO HS 02/10/19 05/22/20 History pantoprazole 40 mg PO BID 02/10/19 05/22/20 History potassium chloride 20 meq PO QAM 02/10/19 05/22/20 History quetiapine 200 mg PO HS 02/10/19 05/22/20 History spironolactone 100 mg PO QAM 02/10/19 05/22/20 History sucralfate 1 g PO ACHS 02/10/19 05/22/20 History magnesium oxide 400 mg PO BID 02/20/19 05/22/20 History Brovana 15 mcg INHALATION BID 12/01/19 05/22/20 History Lantus Solostar U-100 Insulin 15 unit SUBCUT DAILY@2100 12/01/19 05/22/20 History budesonide 0.5 mg INHALATION BID 12/01/19 05/22/20 History ferrous gluconate 324 mg PO DAILY@0730 #30 tab 12/03/19 05/22/20 Rx insulin lispro [Humalog KwikPen 12 unit SUBCUT TIDM 05/22/20 05/22/20 History Insulin] Past Med/Surg History Medical History (Updated 05/27/20 @ 00:02 by Ron Smith) Acute respiratory failure with hypoxia Breast cancer, right breast CHF (congestive heart failure) COPD (chronic obstructive pulmonary disease) Diabetes Elevated troponin Endocarditis KATHLEEN (generalized anxiety disorder) GERD (gastroesophageal reflux disease) GI bleed Hypoxia Major depression, recurrent, full remission MSSA (methicillin susceptible Staphylococcus aureus) septicemia Nausea & vomiting Obesity hypoventilation syndrome QT prolongation Septic thrombophlebitis Spinal abscess Syncope Vomiting and diarrhea Surgical History History of lumpectomy Family History Other Coronary heart disease Stroke Social History Smoking Status: Former smoker Smoking End Date: 8 years ago; Hx Alcohol Use: No Hx Substance Use: No Preferred Language: Nepali Communication Ability: Effective Commiss[employer] Hel[employer] Required: No Beliefs That Will Affect Care: None marital status: Single Current Living Situation: Alone Current Living Situation Comment: with caregiver current occupational status: retired How many Children do You have: 0 Other Information That Helps Us Care for You: No Feels Safe at Home: Hesitant to Answer Review of Systems Review of Systems: All systems reviewed & are unremarkable except as noted in HPI & below Physical Exam Physical Exam: Constitutional: Obese ill-appearing 74-year-old woman appearing older than stated age. Eyes: Pupils equal round reactive light accommodation, extraocular muscle movements intact bilaterally ENMT: No obvious abnormalities externally Neck: No unrealized detected Respiratory: Markedly decreased lung sounds throughout, definite end expiratory wheezes, faint crackles best appreciated at the bases, patient is using accessory muscles to breathe is able to have conversation Cardiovascular: Regular rate rhythm no murmurs rubs skips or gallops 1+ pitting edema bilateral lower extremities mild jugular venous distention Gastrointestinal: Abdomen soft nontender Musculoskeletal: Normal detected Skin: No unrealized acted Neurological: No focal neurologic deficits appreciated no facial droop dysarthria difficulty swallowing, patient awake alert oriented x4 Results & Data Results & Data ([facility]) Vital Signs (Past 12 Hours) Vital Signs Pulse Pulse Resp BP BP Pulse Ox 05/22/20 20:32 84 20 146/73 H 95 05/22/20 19:47 71 18 98 05/22/20 19:15 95 05/22/20 19:08 78 16 168/65 H 96 05/22/20 19:00 71 20 168/65 H 95 05/22/20 18:01 78 19 152/59 H 96 05/22/20 17:48 77 19 167/75 H 95 05/22/20 17:46 76 15 167/75 H 97 05/22/20 17:21 95 05/22/20 17:08 75 24 150/78 H 97 Code Status & VTE Plan VTE Prophylaxis Plan VTE Prophylaxis will be ordered: Yes Supervising Physician Co-Signing Physician Notes Attending addendum: I have physically seen this patient, have supervised the medical residents activities, and agree with the H&P unless as otherwise noted. Assessment and Plan: COPD exacerbation- Admit to monitored bed. Solu-Medrol 40 mg IV every 6 hours Azithromycin 500 mg IV daily Duonebs every 4 hours while awake and every 2 hours when necessary. Consult pulmonology CHF/hypertension- Continue metoprolol succinate, potassium chloride, spironolactone. Pulmonary embolism history- Continue Xarelto Diabetes mellitus- Hold metformin. Patient Accu-Cheks before meals and at bedtime with NovoLog coverage per scale Remainder of orders and notations as noted Resident Activity Tracking Resident Involvement: Resident Care Provided Care Provided: Adult Hospital Medicine (1) Anemia Anemia type: unspecified type Qualified Code(s): D64.9 - Anemia, unspecified
[2020-05-22] MEDS: FORMOTEROL 20 MCG/2 ML VIAL INH SCH (22:17)
[2020-05-22] MEDS: BUDESONIDE 0.5 MG/2 ML VIAL (PULMICORT) INH SCH (22:17)
[2020-05-22] MEDS: SUCRALFATE 1 GM TAB PO SCH (22:25)
[2020-05-22] MEDS: MAGNESIUM OXIDE 400 MG TAB PO SCH (22:26)
[2020-05-22] MEDS: MONTELUKAST SODIUM 10 MG TABLET PO SCH (22:26)
[2020-05-22] MEDS: MIRTAZAPINE TAB 15 MG TAB PO SCH (22:27)
[2020-05-22] MEDS: QUETIAPINE FUMARATE 200 MG TAB PO SCH (22:27)
[2020-05-22] MEDS: METOPROLOL SUCC 25MG EXT REL TAB PO SCH (22:27)
[2020-05-22] MEDS: PANTOprazole 40 MG TAB PO SCH (22:27)
[2020-05-22] MEDS: INSULIN ASPART 100 UNITS/ML 3 ML PEN SC SCH (22:28)
[2020-05-23] MEDS: INSULIN ASPART 100 UNITS/ML 3 ML PEN SC SCH ×6 (00:05→20:29)
[2020-05-23] MEDS: ALBUT/IPRATROP 3MG/0.5MG NEB 3 ML VIAL NEB PRN ×4 (04:43→23:12)
[2020-05-23] MEDS: LEVOTHYROXINE SODIUM 25 MCG TABLET PO SCH (06:24)
[2020-05-23] MEDS: methylPREDNISolone 40 MG in SYRINGE 0 ML IV SCH ×3 (06:24→15:22)
[2020-05-23] MEDS: FORMOTEROL 20 MCG/2 ML VIAL INH SCH ×2 (07:15→18:50)
[2020-05-23] MEDS: BUDESONIDE 0.5 MG/2 ML VIAL (PULMICORT) INH SCH ×2 (07:15→18:50)
[2020-05-23 07:48] LABS: Estimated Average Glucose 220 mg/dl; Hemoglobin A1C 9.3 % (4.5-5.6)
--- NOTE | 2020-05-23 08:07 | Hospitalist Progress Note ---
Date of Service May 23, 2020 Assessment & Plan (1) SOB (shortness of breath): Mini Clemons is a 74 year old woman with a past medical history significant for severe COPD and CHF here for COPD exacerbation Acute on Chronic respiratory failure with hypoxia Advanced COPD (No PFT's on record 2L at home), has had about three dozen admissions to hospital in last several years most recently 10 days ago at [facility] where she was discharged on PO steroids but yet has still gotten progressively short of breath. IV methypred tapered 40 mg q12h azithromycin changed to p.o. continuing home inhalers duonebs PRN Pulmonology consulted reinforced nocturnal BiPAP use concern for elevation of eosinophil count follow-up as an outpatient Case management consult placed for frequent admissions Lives independently Full Code (2) COPD exacerbation: (3) Lower extremity edema: likely based on cor pulmonale (4) Anemia: (5) CHF (congestive heart failure): chronic systolic heart failure, last echo 2018 with EF 45%, did have LHC in 2018 with non occlusive or intervention worthy CAD CXR not showing pulmonary edema, do not believe CHF is major contributor to her current shortness of breath (6) Acid reflux: continue famotidine (7) Diabetes: Continues to have metformin held ssi due to steroids (8) DVT prophylaxis: DVT PPx: Rivaroxaban for previous venous thrombosis Admission and Anticipated Discharge Date Admission Date: May 22, 2020 Subjective Patient is breathing somewhat better she still fairly significantly dyspneic apically only feeling better after her respiratory therapy session. Objectively I do think she is using less accessory muscles and is in less respiratory distress Review of Systems Review of Systems: Mild respiratory distress with fatigue no headache, blurry or double vision no speech or swallowing issues no chest pain, pressure or palpitations As of breath at rest, no productive cough or wheezes no abdominal pain, nausea or vomiting, diarrhea or constipation no dysuria, hematuria or frequency no focal joint pain, mild peripheral swelling of her legs no back pain, CVA tenderness or radicular pain no bruising, bleeding or rashes no focal signs of weakness or numbness or altered sensation no complaints or anxiety or depression. Physical Exam Physical Exam: The patient appeared well nourished and normally developed. Vital signs as documented. Head exam is normocephalic atraumatic no scleral icterus Neck is without JVD, thyromegaly, or carotid bruits. Lungs with patient has better air movement particularly in the right lung overall though she continues to have decreased air movement pursed lip breathing and accessory muscle use she remains without any focal wheezes auscultated Cardiac exam, Rhythm is regular.. No murmurs, rubs or gallops. Abdominal exam reveals normal bowel sounds, soft non tender, no masses Extremities are trace bilateral lower extremity edema and both pedal pulses are normal. Neurologic exam is alert and oriented, no focal loss of strength or sensation Skin is without bruises or rashes Psychologically is without concerns for anxiety or depression. Results & Data Results & Data ([facility]) Vital Signs (Past 12 Hours) Vital Signs Temp Pulse Pulse Resp BP Pulse Ox 05/23/20 07:15 66 18 96 05/23/20 07:14 67 05/23/20 07:11 98.1 F 68 18 155/80 H 99 05/23/20 06:15 81 05/23/20 04:44 74 20 92 05/23/20 04:32 98.1 F 68 18 151/80 H 95 05/22/20 22:20 82 20 96 05/22/20 22:04 98.2 F 77 24 137/71 95 05/22/20 20:32 84 20 146/73 H 95 PG Care Time/CCT Total # of Minutes Spent Total Time Spent with Patient: Total time spent is greater than 50% in coordination of care (as documented) at patient's floor/unit and/or counseling patient: Coding Level of Care Code 79338 Subseq Hosp Care Lvl 3 Diagnoses SOB (shortness of breath) R06.02 COPD exacerbation J44.1 Lower extremity edema R60.0 Anemia D64.9 Anemia type: unspecified type CHF (congestive heart failure) I50.9 Acid reflux K21.9 Diabetes E11.9; Z79.4 Diabetes mellitus complication status: without complication Diabetes mellitus halfway insulin use: with bed bug exterminator use Diabetes mellitus type: type 2 DVT prophylaxis Z29.9 (1) Diabetes Diabetes mellitus complication status: without complication Diabetes mellitus bed bug exterminator insulin use: with bed bug exterminator use Diabetes mellitus type: type 2 Qualified Code(s): E11.9 - Type 2 diabetes mellitus without complications; Z79.4 - exterminator helper (current) use of insulin (2) Anemia Anemia type: unspecified type Qualified Code(s): D64.9 - Anemia, unspecified
[2020-05-23] MEDS: FAMOTIDINE 20 MG TAB PO SCH (08:56)
[2020-05-23] MEDS: CHOLECALCIFEROL (VITAMIN D) 400 UNITS TABLET PO SCH (08:56)
[2020-05-23] MEDS: POTASSIUM CHLORIDE 20 MEQ TABCR PO SCH (08:56)
[2020-05-23] MEDS: ROFLUMILAST 500 MCG TAB PO SCH (08:56)
[2020-05-23] MEDS: SUCRALFATE 1 GM TAB PO SCH ×4 (08:56→20:28)
[2020-05-23] MEDS: ESCITALOPRAM OXALATE 10 MG TAB PO SCH (08:57)
[2020-05-23] MEDS: PANTOprazole 40 MG TAB PO SCH ×2 (08:57→20:29)
[2020-05-23] MEDS: METOPROLOL SUCC 25MG EXT REL TAB PO SCH ×2 (08:57→20:29)
[2020-05-23] MEDS: MAGNESIUM OXIDE 400 MG TAB PO SCH ×2 (08:57→20:29)
[2020-05-23] MEDS: SPIRONOLACTONE 100 MG TAB PO SCH (08:58)
[2020-05-23] MEDS: THEOPHYLLINE 400 MG EXTENDED REL TAB PO SCH (08:58)
--- NOTE | 2020-05-23 08:58 | Pharmacy Report ---
Glycemic Control Consultation - Date of Service May 23, 2020 - Scope Scope: Glycemic Pharmacist consulted for glycemic control and to write orders per [facility] inpatient glycemic control protocol. - Objective Weight: 93.33 kg Accuchecks BSG (last 24hrs): 05/22/20 05/22/20 05/22/20 17:33 21:17 21:19 Glucose 250 H POC Glucose 302 H* 327 H* 05/23/20 05/23/20 05/23/20 00:04 04:09 07:38 Glucose POC Glucose 410 H* 228 H 254 H Laboratory Data (last 24hrs): 05/22/20 17:33 Potassium 4.7 Carbon Dioxide 33 H Anion Gap 5.0 Creatinine 0.99 Est Cr Clr Drug Dosing 54.5 HbA1c: Hemoglobin A1c 9.3 % (4.5-5.6) H 05/22/20 17:33 - Recent Pertinent Medications Outpatient Anti-diabetic Regimen: * Lantus 15 units HS, Novolog 12 units TIDM, metformin * A1c = 9.3% 05/23/20 Risk Factors for Insulin Resistance: * Steroids: solm 40 iv q 6 * Diet: t2dm - Assessment & Plan Assessment & Plan: ASSESSMENT: * 74 year admitted with COPD exacerbation. Multiple hospital admissions in the past, most recently at [facility] a little over a week ago and had been on PO steroids. Started on IV methylprednisone on admission * She is a type 2 diabetic managed on insulin/metformin at home. Pharmacy consulted for glycemic control. Patient known to service from other admissions. Plan to utilize similar parameters for insulin. * Received about 50 units of insulin yesterday, of which 25 were basal insulin. Fasting BSG this AM elevated at 254 mg/dL - plan to given an additional 10 units of basal insulin now and resume scale for Lantus at HS. Will tighten CF/CR based upon last admission in November as she was on steroids during that time as well. * Steroids tapering at lunch - had originally tightened / but will loosen with dinner PLAN FOR INPATIENT GLYCEMIC CONTROL: * Holding outpatient oral diabetes medications * Basal insulin * Lantus 10 x 1 * Lantus 25-35 units HS based upon BSG value * Bolus insulin * NovoLog per scale ACHS or Q6hrs while NPO * Goal Range: Low 110 mg/dL - High 140 mg/dL * Correction Factor: 15 mg/dL/unit * Nutritional / Prandial insulin per carb ratio of 1 unit per 5 grams CHO consumed * Please note that the plan above was derived based on current level of insulin resistance and hospital stress. These recommendations are appropriate for inpatient admission only. Plan of care upon discharge will need to be reassessed to avoid potential outpatient hypo/hyperglycemia. Thank you.
[2020-05-23] MEDS ORDERED: INSULIN GLARGINE SOLOSTAR 100 UNITS/ML 3 ML PEN SC ONE (09:00)
[2020-05-23] MEDS ORDERED: RACEPINEPHRINE 2.25% NEBU SOLN 0.5 ML VIAL NEB STA (10:39)
--- NOTE | 2020-05-23 11:43 | Pulmonary Consultation ---
Date of Consultation May 23, 2020 Assessment & Plan (1) Chronic respiratory failure with hypoxia: This is a 74-year-old female admitted for shortness of breath. She has multiple admissions over the last 2 years with most of them being at [facility]. She states that she has had progressive shortness of breath with wheezes and is now very short of breath with minimal exertion. She has history of pulmonary embolus from June 2016 treated with Xarelto long- term. She also reports that at one time she had a deep vein thrombosis. We are asked to see the patient in consultation secondary to multiple visits with no continuing of pulmonary care. Recommendations: 1. Patient with declared COPD. * Unknown pulmonary function testing. * Records requested from [place], as well as [facility] [place] * Chronic supplemental oxygen 2 L/min via nasal cannula * Check a CT chest without contrast * Patient receiving budesonide, formoterol, Roflumilast, theophylline, and Singulair * Patient willing to set up outpatient follow-up with pulmonary medicine with katie Gonzalez * Will need to see within 2 weeks of discharge 2. Stridor * On examination, patient has stridor with bilateral auscultation of the neck with no evidence of upper field wheezes that appear to be transmitted * Patient was given 1 nebulizer treatment with racemic epinephrine which decreased but did not eliminate the stridor * The patient states that she had improved shortness of breath with the racemic treatment * Check a CT of the neck without contrast of the soft tissue specifically looking for vocal cord trauma * Patient denies any history of vocal cord damage in the past and has not seen ENT for evaluation of her trachea * Patient further denies any long-term endotracheal intubation and does not recall ever being on mechanical ventilation. 3. Patient denies history of obstructive sleep apnea but does report having CPAP at one time * Suspect that this is from obesity hypoventilation syndrome * Records requested * At this time check ABG to rule out hypercapnia * Follow outpatient with the sleep lab 4. History of pulmonary embolism * No acute concerns * Apparently this imaging was done in 2015 * Patient was apparently on Coumadin but then converted to Xarelto which she currently maintains at 20 mg daily 5. Breast cancer * Currently in remission with no adjuvant history * There is a secondary primary as patient had ovarian cancer when she was 21 years old * Chest x-ray without any appearance of lung mass or metastatic nodules * Mammogram scheduled every 6 months. Was scheduled yesterday but was admitted * Continue outpatient follow-up 6. Iron deficiency anemia * I doubt that this is contributing to the patient's shortness of breath and hypoxia as hemoglobin is 9.6 * Continue ferrous gluconate At this time we do not have enough data to provide a complete plan. It has been confirmed that the patient follows with Dr. Lizarraga at [place] as a satellite site for [facility]. Records have been requested and we will review and modify her plan once those records are available. Of note, patient requests to establish with primary care at [facility] office as well is establish and follow with [facility] pulmonary group. Transportation needs to be arranged. I spoke with case management and they will help with transportation arrangements for both of these offices. In addition, we will check ABGs, theophylline level, procalcitonin this morning. Thank you for including us in the care of this patient. Please refer to Dr. Armendariz's addendum for further recommendations. (2) Obesity hypoventilation syndrome: (3) Acute on chronic combined systolic (congestive) and diastolic (congestive) heart failure: (4) Breast cancer, right breast: Breast location: unspecified site of breast (5) Pulmonary embolism: (6) COPD (chronic obstructive pulmonary disease): (7) Anemia: Anemia type: unspecified type Qualified Code(s): D64.9 - Anemia, unspecified (8) DVT prophylaxis: Continue Xarelto Supervising Physician Co-Signing Physician Notes I saw and evaluated the patient with Tee dillard, and agree with findings and plan as documented in the note. Patient seen and examined at bedside. Patient has underlying severe COPD on nebulized Brovana and budesonide at home along with Roflumilast. Patient's ABG 05/23/2020 shows pH 7.42/49/80 on 2 L nasal cannula. Patient has decreased air entry bilaterally with expiratory wheeze appreciated. When I examined the patient patient did not have any inspiratory stridor. Patient did have expiratory wheeze appreciated at the neck as well as upper part of the lungs. I would recommend to go down on Solu-Medrol to 40 mg once a day starting tomorrow. Continue with azithromycin for COPD exacerbation. We will do CT of the chest without contrast to look at the lung parenchyma would also include CT of the neck as Tee Dillard appreciated stridor when he examined the patient. Patient is on theophylline as well from the appeals manager who she sees in [place]. I personally do not see any benefit of using theophylline in a patient who has underlying severe COPD. The likelihood of patient having sleep apnea is high. Patient will benefit from outpatient polysomnography. Trial of BiPAP 10/6 40% at night while in the hospital. Add Incruse inhaler to be used on a daily basis as well as at home. It is very important to keep patient's O2 saturation between 88-92% given the patient is chronic hypercapnic. History of Present Illness Attending Physician: Clem Cam MD History of Present Illness Attending: Dr. Armendariz This is a 74-year-old female that is admitted for shortness of breath. She has had multiple admissions over the last year and continues to have exacerbation. She has a past medical history including history of pulmonary emboli 3 years ago on Xarelto, history of DVT, herpes zoster, acute on chronic congestive heart failure, chronic respiratory failure on chronic supplemental oxygen secondary hypoxia, COPD, GERD, history of GI bleed, history of endocarditis, history of spinal abscess, depression/anxiety, insulin-dependent diabetes mellitus type 2, hypothyroidism, iron deficiency anemia, and obesity. The patient had one pulmonary visit with [facility] pulmonary group on 08/21/2017. At that point she said that she wanted to continue following with [facility]. In discussion today, she states that she sees a appeals manager in [place] but cannot remember the name. Records have been requested from [place] as well as from [place] specifically looking for pulmonary function testing and past treatment regimens. Patient does have chronic shortness of breath that seems to exacerbate frequently. She states that she gets bad wheezes and severe dyspnea with exertion. She does have a nebulizer at home and is on Brovana, budesonide, Daliresp, and theophylline. Theophylline levels have not been checked here since 01/07/2018. This will be requested with next blood draw. The patient denies previous history of endotracheal intubation or mechanical ventilation. Patient denies any chest pain or tightness. She has no exertional chest pain. She states that with minimal movement just to the bedside commode she does have shortness of breath. She has minimal sputum production and states that she feels as though she can get it up to her throat but cannot expectorate it. She denies any fever or chills. She has no unusual cough. She denies hemoptysis. The patient quit smoking 6 years ago. She lives in an apartment by herself. She does have home health aides that come in daily for assistance. She has 1 son that lives in [place] that she is estranged from. She has no other family. Allergies Allergy/AdvReac Type Severity Reaction Status Date / Time rabies vaccine, duck-embryo Allergy Severe HIVES Verified 05/22/20 19:23 ragweed pollen Allergy Unknown UNKNOWN Verified 05/22/20 19:23 tomato Allergy Unknown HIVES Verified 05/22/20 19:23 Home Medications Home Medications Medication Instructions Recorded Confirmed Type Daliresp 500 mcg PO QAM 02/10/19 05/22/20 History Rohit-24 400 mg PO QAM 02/10/19 05/22/20 History Xarelto 20 mg PO QAM 02/10/19 05/22/20 History cholecalciferol (vitamin D3) 400 unit PO QAM 02/10/19 05/22/20 History [Vitamin D3] escitalopram oxalate 15 mg PO QAM 02/10/19 05/22/20 History famotidine 20 mg PO QAM 02/10/19 05/22/20 History levothyroxine 25 mcg PO QAM 02/10/19 05/22/20 History metformin 500 mg PO BID 02/10/19 05/22/20 History metoprolol succinate 25 mg PO BID 02/10/19 05/22/20 History mirtazapine 30 mg PO 02/10/19 05/22/20 History montelukast 10 mg PO HS 02/10/19 05/22/20 History pantoprazole 40 mg PO BID 02/10/19 05/22/20 History potassium chloride 20 meq PO QAM 02/10/19 05/22/20 History quetiapine 200 mg PO HS 02/10/19 05/22/20 History spironolactone 100 mg PO QAM 02/10/19 05/22/20 History sucralfate 1 g PO ACHS 02/10/19 05/22/20 History magnesium oxide 400 mg PO BID 02/20/19 05/22/20 History Brovana 15 mcg INHALATION BID 12/01/19 05/22/20 History Lantus Solostar U-100 Insulin 15 unit SUBCUT DAILY@2100 12/01/19 05/22/20 History budesonide 0.5 mg INHALATION BID 12/01/19 05/22/20 History ferrous gluconate 324 mg PO DAILY@0730 #30 tab 12/03/19 05/22/20 Rx insulin lispro [Humalog KwikPen 12 unit SUBCUT TIDM 05/22/20 05/22/20 History Insulin] Patient History Medical History (Updated 05/23/20 @ 11:53 by Tee Dillard PA-C) Acute respiratory failure with hypoxia Breast cancer, right breast CHF (congestive heart failure) COPD (chronic obstructive pulmonary disease) Diabetes Elevated troponin Endocarditis KATHLEEN (generalized anxiety disorder) GERD (gastroesophageal reflux disease) GI bleed Hypoxia Major depression, recurrent, full remission MSSA (methicillin susceptible Staphylococcus aureus) septicemia Nausea & vomiting Obesity hypoventilation syndrome QT prolongation Septic thrombophlebitis Spinal abscess Syncope Vomiting and diarrhea Surgical History History of lumpectomy Family History Other Coronary heart disease Stroke Social History Smoking Status: Former smoker Smoking End Date: 8 years ago; Hx Alcohol Use: No Hx Substance Use: No Preferred Language: Pashto Communication Ability: Effective Barrer And Tacker Required: No Beliefs That Will Affect Care: None marital status: Single Current Living Situation: Alone Current Living Situation Comment: with caregiver current occupational status: retired How many Children do You have: 0 Other Information That Helps Us Care for You: No Feels Safe at Home: Hesitant to Answer Review of Systems Review of Systems: All systems reviewed & are unremarkable except as noted in HPI & below Physical Exam Physical Exam: GENERAL : No acute distress. Pleasant. Positive for conversational dyspnea EYES: No icterus, gaze conjugate. Pupils equal round and reactive to light NOSE: No evidence of epistaxis. Nasal cannula in place and secure MOUTH: No lesions or candidiasis. NECK: Supple. Positive for stridor bilaterally LUNGS: Diminished bilaterally but generally CTA B/L, no wheezes, rales or rhonchi HEART: Regular, rate controlled ABDOMEN: Soft, NT, ND, BS Present. Protuberant abdomen. EXTREMITIES: No LE edema, pedal pulses intact NEURO: A&OX3 Results & Data Results & Data ([facility]) Vital Signs (Past 12 Hours) Vital Signs Temp Pulse Pulse Resp BP Pulse Ox 05/23/20 11:24 37 C 68 18 131/74 94 05/23/20 10:45 71 24 95 05/23/20 07:15 66 18 96 05/23/20 07:14 67 05/23/20 07:11 36.7 C 68 18 155/80 H 99 05/23/20 06:15 81 05/23/20 04:44 74 20 92 05/23/20 04:32 36.7 C 68 18 151/80 H 95 Laboratory Results 05/22/20 17:33 Troponin I < 0.015 05/22/20 17:33 05/22/20 17:33 Diagnostic Findings XR chest 1V portable CLINICAL HISTORY: Chest pain. COMPARISON STUDY: Chest radiograph December 01, 2019. FINDINGS: Lung volumes are normal. There is no pneumothorax or pleural effusion. Cardiomediastinal silhouette is stable. Apparent mild left basilar opacity is unchanged. There is no evidence for pulmonary edema. There is no convincing evidence for pneumonia. IMPRESSION: 1. No definite acute findings. 2. Hazy left basilar opacity which likely reflects atelectasis or artifact. Electronically signed by: Rick Canchola M.D. 05/22/2020 5:25 PM PG Care Time/CCT Total # of Minutes Spent Total Time Spent with Patient: Total time spent is greater than 50% in coordination of care (as documented) at patient's floor/unit and/or counseling patient: 45 minutes Coding Level of Care Code 44975 Initial Inpt Care Lvl 3 Diagnoses Chronic respiratory failure with hypoxia J96.11 Obesity hypoventilation syndrome E66.2 Acute on chronic combined systolic (congestive) and diastolic (congestive) heart failure I50.43 Breast cancer, right breast C50.911 Breast location: unspecified site of breast Pulmonary embolism I26.99 COPD (chronic obstructive pulmonary disease) J44.9 Anemia D64.9 Anemia type: unspecified type DVT prophylaxis Z29.9
[2020-05-23] MEDS: FERROUS GLUCONATE 324 MG TAB PO SCH (12:44)
[2020-05-23 13:11] LABS: Allen Test Pos (Pos); Base Excess ABG 5.6 mEq/L (-9-1.8); HCO3 ABG 31 mmol/L (19-24); Oxygen Saturation ABG 95.6 % (90-95); PCO2 ABG 49 mmHg (35-46); PO2 ABG 80 mmHg (80-95); pH ABG 7.42 (7.35-7.45)
[2020-05-23] MEDS: RIVAROXABAN 20 MG TAB PO SCH (17:20)
[2020-05-23] MEDS: COUGH DROP (SUGAR FREE) LOZ 24 LOZ/1 BOX BUCCAL PRN (17:30)
--- NOTE | 2020-05-23 19:11 | Electrocardiogram Report ---
Test Reason : Blood Pressure : / mmHG Vent. Rate : 077 BPM Atrial Rate : 077 BPM P-R Int : 136 ms QRS Dur : 070 ms QT Int : 342 ms P-R-T Axes : 090 037 085 degrees QTc Int : 387 ms Poor data quality, interpretation may be adversely affected Normal sinus rhythm Right atrial enlargement Abnormal ECG When compared with ECG of 01-DEC-2019 13:23, T wave amplitude has decreased in Lateral leads Confirmed by Loyd Lawton ([id number]) on 05/23/2020 7:10:37 PM Referred By: REFERRED SELF Confirmed By:Roel Lawton
[2020-05-23] MEDS: MIRTAZAPINE TAB 15 MG TAB PO SCH (20:28)
[2020-05-23] MEDS: INSULIN GLARGINE SOLOSTAR 100 UNITS/ML 3 ML PEN SC SCH (20:28)
[2020-05-23] MEDS: QUETIAPINE FUMARATE 200 MG TAB PO SCH (20:28)
[2020-05-23] MEDS: MONTELUKAST SODIUM 10 MG TABLET PO SCH (20:29)
[2020-05-23] MEDS: AZITHROMYCIN 500 MG in DEXTROSE 5% 250 ML IV SCH ×2 (22:16)
[2020-05-24] MEDS: INSULIN ASPART 100 UNITS/ML 3 ML PEN SC SCH ×6 (00:10→20:30)
[2020-05-24] MEDS: ALBUT/IPRATROP 3MG/0.5MG NEB 3 ML VIAL NEB PRN ×4 (04:21→22:53)
[2020-05-24] MEDS: LEVOTHYROXINE SODIUM 25 MCG TABLET PO SCH (06:20)
[2020-05-24] MEDS: BUDESONIDE 0.5 MG/2 ML VIAL (PULMICORT) INH SCH ×2 (07:08→19:08)
[2020-05-24] MEDS: FORMOTEROL 20 MCG/2 ML VIAL INH SCH ×2 (07:08→19:08)
[2020-05-24] MEDS ORDERED: INSULIN HUMAN NPH SC SCH (08:30)
[2020-05-24] MEDS: SPIRONOLACTONE 100 MG TAB PO SCH (08:36)
[2020-05-24] MEDS: PANTOprazole 40 MG TAB PO SCH ×2 (08:36→20:03)
[2020-05-24] MEDS: POTASSIUM CHLORIDE 20 MEQ TABCR PO SCH (08:36)
[2020-05-24] MEDS: ROFLUMILAST 500 MCG TAB PO SCH (08:37)
[2020-05-24] MEDS: ESCITALOPRAM OXALATE 10 MG TAB PO SCH (08:37)
[2020-05-24] MEDS: FAMOTIDINE 20 MG TAB PO SCH (08:37)
[2020-05-24] MEDS: MAGNESIUM OXIDE 400 MG TAB PO SCH ×2 (08:37→20:03)
[2020-05-24] MEDS: METOPROLOL SUCC 25MG EXT REL TAB PO SCH ×2 (08:37→20:03)
[2020-05-24] MEDS: THEOPHYLLINE 400 MG EXTENDED REL TAB PO SCH (08:37)
[2020-05-24] MEDS: CHOLECALCIFEROL (VITAMIN D) 400 UNITS TABLET PO SCH (08:38)
[2020-05-24] MEDS: SUCRALFATE 1 GM TAB PO SCH ×4 (08:39→20:03)
[2020-05-24] MEDS: UMECLIDINIUM BROMIDE 62.5MCG/BLISTER 7 PUFFS/INHALER INH SCH (08:39)
[2020-05-24] MEDS ORDERED: methylPREDNISolone 40 MG in SYRINGE 0 ML IV SCH (09:00)
--- NOTE | 2020-05-24 09:08 | Pharmacy Report ---
Pharmacy Glycemic Short Note 2 - Date of Service May 24, 2020 - Glycemic Short BSG Results (Last 24 hours): 05/23/20 05/23/20 05/23/20 11:44 16:30 20:26 POC Glucose 277 H 84 131 H 05/23/20 05/24/20 05/24/20 23:55 04:04 07:40 POC Glucose 202 H 84 75 Outpatient Anti-diabetic Regimen: * Lantus 15 units HS * Novolog 12 units TIDM * Metformin * A1c = 9.3% 05/23/20 Risk Factors for Insulin Resistance: * Steroids: Methylprednisolone 40 mg IV qAM increased to BID today * Diet: T2DM ASSESSMENT: 05/24/20 * BSG of 84 mg/dL yesterday at dinner 2nd too tight CHO ratio at lunch. This has been loosened * BSG of 75 mg/dL this Am 2nd higher Lantus dose (with effects persisting 24 hours) with effects of steroids administered in AM only yesterday dissipating overnight * Most other BSG's >200 mg/dL. Better control desired, but this was difficult to achieve based on previous admission(s) data, especially with changing steroid doses * Previous admission reviewed - patient is steroid sensitive. Responded in the past to NPH qAM combined with Lantus once-daily for basal regimen while on once daily steroid admin in AM. Will therefore continue Lantus qHS and add NPH qAM. * Steroids now increased to BID therefore steroid effects will again have an effect on BSG's overnight. Therefore will increase Lantus dose * Lower NPH dose selected this AM as compared to previous admissions 2nd lower AM fasting BSG and also with persistence of effect of Lantus administered yesterday evening 05/23/20 * 74 year admitted with COPD exacerbation. Multiple hospital admissions in the past, most recently at [facility] a little over a week ago and had been on PO steroids. Started on IV methylprednisone on admission * She is a type 2 diabetic managed on insulin/metformin at home. Pharmacy consulted for glycemic control. Patient known to service from other admissions. Plan to utilize similar parameters for insulin. * Received about 50 units of insulin yesterday, of which 25 were basal insulin. Fasting BSG this AM elevated at 254 mg/dL - plan to given an additional 10 units of basal insulin now and resume scale for Lantus at HS. Will tighten CF/CR based upon last admission in November as she was on steroids during that time as well. * Steroids tapering at lunch - had originally tightened / but will loosen with dinner PLAN FOR INPATIENT GLYCEMIC CONTROL: * Hold outpatient oral diabetes medications * Basal insulin * Lantus 20-25 units SC HS * NPH 15 units SC qAM x1 (administered with methylprednisolone/breakfast) * Bolus insulin * NovoLog per scale ACHS or Q6hrs while NPO * Goal Range: Low 110 mg/dL - High 140 mg/dL * Correction Factor: 15 mg/dL/unit * Nutritional / Prandial insulin per carb ratio of 1 unit per 5 grams CHO consumed
--- NOTE | 2020-05-24 10:43 | Pulmonology Progress Note ---
Date of Service May 24, 2020 Assessment & Plan (1) Chronic respiratory failure with hypoxia: This is a 74-year-old female admitted for shortness of breath. She has multiple admissions over the last 2 years with most of them being at [facility]. She states that she has had progressive shortness of breath with wheezes and is now very short of breath with minimal exertion. She has history of pulmonary embolus from June 2016 treated with Xarelto long- term. She also reports that at one time she had a deep vein thrombosis. We are asked to see the patient in consultation secondary to multiple visits with no continuing of pulmonary care. 05/23/2020 AB.42/49/80 on 2 L nasal cannula --Acute on chronic hypercapnic hypoxic respiratory failure Secondary to COPD exacerbation Continue with steroids, antibiotics, bronchodilators O2 supplementation to keep O2 saturation between 88-92% BiPAP nightly and PRN shortness of breath Patient is on budesonide, formoterol nebulized at home as well as theophylline and Singulair. Lama inhaler (Incruse) has been added Absolute eosinophil count at presentation was 190. Patient does have history of absolute eosinophil count as high as 1030 back on 12/01/2019 Such patient can be thought of started on Biologics for elevated eosinophil counts as an outpatient. --Obesity Patient likely has VIJAY Will benefit from outpatient polysomnography Continue with BiPAP nightly and PRN --History of pulmonary embolism * No acute concerns * Apparently this imaging was done in 2015 * Patient was apparently on Coumadin but then converted to Xarelto which she currently maintains at 20 mg daily -- Breast cancer * Currently in remission with no adjuvant history * There is a secondary primary as patient had ovarian cancer when she was 21 years old * Chest x-ray without any appearance of lung mass or metastatic nodules * Mammogram scheduled every 6 months. Was scheduled yesterday but was admitted * Continue outpatient follow-up Plan: Increase Solu-Medrol to 40 mg every 12 hours Continue with inhaled bronchodilators Follow-up CT of the chest without contrast Please note the above document was generated using voice recognition software. It may contain grammatical, syntax or spelling errors. (2) Obesity hypoventilation syndrome: (3) Acute on chronic combined systolic (congestive) and diastolic (congestive) heart failure: (4) Breast cancer, right breast: Breast location: unspecified site of breast (5) Pulmonary embolism: (6) COPD (chronic obstructive pulmonary disease): (7) Anemia: Anemia type: unspecified type Qualified Code(s): D64.9 - Anemia, unspecified (8) DVT prophylaxis: Admission and Anticipated Discharge Date Admission Date: May 22, 2020 Subjective Patient seen and examined at bedside. No adverse events overnight. At the time of examination patient stated that she was feeling a little bit more short of breath. She was getting her nebulized treatment at the time of examination. Denied any chest pain, no dizziness, no headache, no nausea, no vomiting. She used the BiPAP overnight for 4 hours. Review of Systems Review of Systems: All systems reviewed & are unremarkable except as noted in Subjective Physical Exam Physical Exam: Constitutional: No acute distress HEENT: EOMI, PERRLA, thick neck, no inspiratory stridor Respiratory system: Decreased air entry bilaterally, positive expiratory wheeze appreciated bilaterally, no crackles, no rhonchi CVS: S1-S2 positive, no murmurs or gallops, distant heart sounds Abdomen: Soft, nontender, nondistended, positive bowel sounds x4 Extremities: +2 pulses bilaterally radialis/ dorsalis pedis, no cyanosis, no edema Neuro: Awake alert oriented x3 Psych: Normal mood and affect G/U: No Jackson Skin: no rashes, warm and dry Lymphatic: no cervical or axillary lymphadenopathy Results & Data Results & Data ([facility]) Vital Signs (Past 12 Hours) Vital Signs Temp Pulse Pulse Resp BP Pulse Ox 05/24/20 10:06 72 20 93 05/24/20 07:19 36.7 C 60 20 140/72 97 05/24/20 07:18 62 05/24/20 07:09 62 20 97 05/24/20 04:22 63 18 97 05/24/20 03:30 62 16 90 05/24/20 03:00 36.7 C 62 20 159/72 H 90 05/24/20 00:39 62 05/24/20 00:12 64 16 96 05/23/20 23:14 68 20 95 05/23/20 23:00 36.5 C 59 L 20 116/73 96 05/22/20 17:33 05/22/20 17:33 PG Care Time/CCT Total # of Minutes Spent Total Time Spent with Patient: Total time spent is greater than 50% in coordination of care (as documented) at patient's floor/unit and/or counseling patient: Coding Level of Care Code 60660 Subseq Hosp Care Lvl 3 Diagnoses Chronic respiratory failure with hypoxia J96.11 Obesity hypoventilation syndrome E66.2 Acute on chronic combined systolic (congestive) and diastolic (congestive) heart failure I50.43 Breast cancer, right breast C50.911 Breast location: unspecified site of breast Pulmonary embolism I26.99 COPD (chronic obstructive pulmonary disease) J44.9 Anemia D64.9 Anemia type: unspecified type DVT prophylaxis Z29.9
[2020-05-24] MEDS: FERROUS GLUCONATE 324 MG TAB PO SCH (12:54)
[2020-05-24] MEDS: RIVAROXABAN 20 MG TAB PO SCH (17:08)
[2020-05-24] MEDS: MIRTAZAPINE TAB 15 MG TAB PO SCH (20:03)
[2020-05-24] MEDS: MONTELUKAST SODIUM 10 MG TABLET PO SCH (20:03)
[2020-05-24] MEDS: QUETIAPINE FUMARATE 200 MG TAB PO SCH (20:03)
[2020-05-24] MEDS: methylPREDNISolone 40 MG in SYRINGE 0 ML IV SCH (20:04)
[2020-05-24] MEDS: INSULIN GLARGINE SOLOSTAR 100 UNITS/ML 3 ML PEN SC SCH (20:30)
[2020-05-25] MEDS: ALBUT/IPRATROP 3MG/0.5MG NEB 3 ML VIAL NEB PRN ×5 (03:17→23:02)
[2020-05-25] MEDS: LEVOTHYROXINE SODIUM 25 MCG TABLET PO SCH (06:13)
[2020-05-25 06:19] LABS: Est GFR (African American) 56.9; Est GFR (Non-African American) 49.1
--- NOTE | 2020-05-25 06:21 | Emergency Department Note ---
History of Present Illness General Chief complaint: Respiratory Distress Time Seen by Provider: 05/22/20 17:03 Source: patient, EMS, RN notes reviewed and old records reviewed Mode of arrival: EMS Limitations: no limitations History of Present Illness Provider complaint: SOB Onset (ago): hour(s) 2 Location: chest Radiation: back Severity: mild Pain Consistency: + intermittent Maximum Pain Intensity: 3 Current Pain Intensity: 3 Quality: + burning Relieved By: + immobilization Exacerbated By: + movement Associated symptoms: + chest pain, + cough and + shortness of breath; no diaphoresis, no fever/chills, no headaches, no loss of appetite, no malaise and no nausea/vomiting Treatments prior to arrival: none This is a 74-year-old female who presents emergency department complaining of sudden onset of shortness of breath. She is wheezing on physical examination. Home Medications Home Medications Medication Instructions Recorded Confirmed Type Daliresp 500 mcg PO QAM 02/10/19 05/22/20 History Rohit-24 400 mg PO QAM 02/10/19 05/22/20 History Xarelto 20 mg PO QAM 02/10/19 05/22/20 History cholecalciferol (vitamin D3) 400 unit PO QAM 02/10/19 05/22/20 History [Vitamin D3] escitalopram oxalate 15 mg PO QAM 02/10/19 05/22/20 History famotidine 20 mg PO QAM 02/10/19 05/22/20 History levothyroxine 25 mcg PO QAM 02/10/19 05/22/20 History metformin 500 mg PO BID 02/10/19 05/22/20 History metoprolol succinate 25 mg PO BID 02/10/19 05/22/20 History mirtazapine 30 mg PO 02/10/19 05/22/20 History montelukast 10 mg PO HS 02/10/19 05/22/20 History pantoprazole 40 mg PO BID 02/10/19 05/22/20 History potassium chloride 20 meq PO QAM 02/10/19 05/22/20 History quetiapine 200 mg PO HS 02/10/19 05/22/20 History spironolactone 100 mg PO QAM 02/10/19 05/22/20 History sucralfate 1 g PO [facility] 02/10/19 05/22/20 History magnesium oxide 400 mg PO BID 02/20/19 05/22/20 History Brovana 15 mcg INHALATION BID 12/01/19 05/22/20 History Lantus Solostar U-100 Insulin 15 unit SUBCUT DAILY@2100 12/01/19 05/22/20 History budesonide 0.5 mg INHALATION BID 12/01/19 05/22/20 History ferrous gluconate 324 mg PO DAILY@0730 #30 tab 12/03/19 05/22/20 Rx insulin lispro [Humalog KwikPen 12 unit SUBCUT TIDM 05/22/20 05/22/20 History Insulin] Allergies Allergy/AdvReac Type Severity Reaction Status Date / Time rabies vaccine, duck-embryo Allergy Severe HIVES Verified 05/22/20 19:23 ragweed pollen Allergy Unknown UNKNOWN Verified 05/22/20 19:23 tomato Allergy Unknown HIVES Verified 05/22/20 19:23 Past Med/Surg History Medical History Acute respiratory failure with hypoxia Breast cancer, right breast CHF (congestive heart failure) COPD (chronic obstructive pulmonary disease) Diabetes Elevated troponin Endocarditis KATHLEEN (generalized anxiety disorder) GERD (gastroesophageal reflux disease) GI bleed Hypoxia Major depression, recurrent, full remission MSSA (methicillin susceptible Staphylococcus aureus) septicemia Nausea & vomiting Obesity hypoventilation syndrome QT prolongation Septic thrombophlebitis Spinal abscess Syncope Vomiting and diarrhea Surgical History History of lumpectomy Family History Other Coronary heart disease Stroke Social History Smoking Status: Former smoker Smoking End Date: 8 years ago; Hx Alcohol Use: No Hx Substance Use: No Preferred Language: Nigerian Communication Ability: Effective Operator Specialist Communications Required: No Beliefs That Will Affect Care: None marital status: Single Current Living Situation: Alone Current Living Situation Comment: with caregiver current occupational status: retired How many Children do You have: 0 Other Information That Helps Us Care for You: No Feels Safe at Home: Hesitant to Answer Review of Systems A total of 10 systems reviewed and were otherwise negative Physical Exam VITAL SIGNS - Vital signs and nursing notes were reviewed. GENERAL - 74-year-old female appearing stated age who is in no acute distress. Communicates well with provider and answers questions appropriately. SKIN - Without rashes. HEAD - NC/AT. EYES - PERRL with EOMI bilaterally. Sclera anicteric. Palpebral conjunctiva pink and moist with no injection noted. EARS - No deformities of external structures noted on gross examination bilaterally. No pain elicited with palpation of the tragus bilaterally. External auditory canals without discharge or otorrhea. Tympanic membranes pearly hackett without retraction or bulging. No fluid or purulent material visualized behind the TM. Handle of malleus, umbo, cone of light, pars tensa/flaccid all easily visualized. NOSE - Midline and without cyanosis. No epistaxis or purulent drainage noted. Septum midline without deviation or septal hematoma noted. MOUTH/OROPHARYNX - Without perioral cyanosis. Buccal mucosa pink and moist and without leukoplakia. Tongue midline with equal elevation of palate bilaterally. No tonsillar hypertrophy, erythema, or exudates noted. dentition noted. NECK - Neck with FROM. Supple to palpation. lymphadenopathy noted. No nuchal rigidity. LUNGS - Chest wall symmetric without accessory muscle use, intercostals retractions, or central cyanosis. Normal vesicular breath sounds CTA B/L. + wheezing, rales, or rhonchi appreciated. CARDIAC - RRR with S1/S2. No murmur, rubs, or gallops appreciated. ABDOMEN - Abdominal contour without pulsations or visible masses. BS normoactive all four quadrants. No tenderness, palpable masses, hepatosplenomegaly, or ascites noted. EXTREMITIES - No clubbing or peripheral cyanosis. No pretibial edema present. +3/5 radial, posterior tibial, and dorsalis pedis pulses palpated throughout. +5/5 strength noted in UE/LE bilaterally. NEUROLOGIC - Cranial nerves II through XII grossly intact. Sensory intact to light touch throughout. Patellar reflexes +2/4. PSYCH - A&Ox3 and cooperates fully with examiner. Pt is very pleasant and interacts well with examiner. Course Administered Medications Albuterol (Albut/Ipratrop 3mg/0.5mg Neb 3 Ml Vial) 3 ml NEB Q2H PRN PRN Reason: Shortness of Breath/Wheezing Stop: 06/21/20 21:19 Last Admin: 05/27/20 23:15 Dose: 3 ml Documented by: [id number] Admin: 05/27/20 14:47 Dose: 3 ml Documented by: [id number] Admin: 05/27/20 10:12 Dose: 3 ml Documented by: [id number] Admin: 05/27/20 02:36 Dose: 3 ml Documented by: [id number] Admin: 05/26/20 23:04 Dose: 3 ml Documented by: [id number] Admin: 05/26/20 15:07 Dose: 3 ml Documented by: [id number] Admin: 05/26/20 11:15 Dose: 3 ml Documented by: [id number] Admin: 05/26/20 03:11 Dose: 3 ml Documented by: [id number] Admin: 05/25/20 23:02 Dose: 3 ml Documented by: [id number] Admin: 05/25/20 18:55 Dose: 3 ml Documented by: [id number] Admin: 05/25/20 14:55 Dose: 3 ml Documented by: [id number] Admin: 05/25/20 11:06 Dose: 3 ml Documented by: [id number] Admin: 05/25/20 03:17 Dose: 3 ml Documented by: [id number] Admin: 05/24/20 22:53 Dose: 3 ml Documented by: [id number] Admin: 05/24/20 14:26 Dose: 3 ml Documented by: [id number] Admin: 05/24/20 10:05 Dose: 3 ml Documented by: [id number] Admin: 05/24/20 04:21 Dose: 3 ml Documented by: [id number] Admin: 05/23/20 23:12 Dose: 3 ml Documented by: [id number] Admin: 05/23/20 16:45 Dose: 3 ml Documented by: [id number] Admin: 05/23/20 13:19 Dose: 3 ml Documented by: [id number] Admin: 05/23/20 04:43 Dose: 3 ml Documented by: [id number] Azithromycin (Azithromycin 250 Mg Tab) [facility] [place]: 05/29/20 09:01 Last Admin: 05/27/20 07:23 Dose: 250 mg Documented by: [id number] Admin: 05/26/20 08:22 Dose: 250 mg Documented by: [id number] Admin: 05/25/20 08:15 Dose: 250 mg Documented by: [id number] Budesonide (Budesonide 0.5 Mg/2 Ml Vial (Pulmicort)) 0.5 mg INH BIDR [facility] Stop: 06/21/20 21:19 Last Admin: 05/27/20 19:13 Dose: 0.5 mg Documented by: [id number] Admin: 05/27/20 07:06 Dose: 0.5 mg Documented by: [id number] Admin: 05/26/20 19:00 Dose: 0.5 mg Documented by: [id number] Admin: 05/26/20 07:14 Dose: 0.5 mg Documented by: [id number] Admin: 05/25/20 18:55 Dose: 0.5 mg Documented by: [id number] Admin: 05/25/20 07:28 Dose: 0.5 mg Documented by: [id number] Admin: 05/24/20 19:08 Dose: 0.5 mg Documented by: [id number] Admin: 05/24/20 07:08 Dose: 0.5 mg Documented by: [id number] Admin: 05/23/20 18:50 Dose: 0.5 mg Documented by: [id number] Admin: 05/23/20 07:15 Dose: 0.5 mg Documented by: [id number] Admin: 05/22/20 22:17 Dose: 0.5 mg Documented by: [id number] Escitalopram Oxalate (Escitalopram Oxalate 10 Mg Tab) 15 mg PO QAM [facility] Stop: 06/22/20 08:59 Last Admin: 05/27/20 07:23 Dose: 15 mg Documented by: [id number] Admin: 05/26/20 08:22 Dose: 15 mg Documented by: [id number] Admin: 05/25/20 08:10 Dose: 15 mg Documented by: [id number] Admin: 05/24/20 08:37 Dose: 15 mg Documented by: [id number] Admin: 05/23/20 08:57 Dose: 15 mg Documented by: [id number] Famotidine (Famotidine 20 Mg Tab) 20 mg PO QAM [facility] Stop: 06/22/20 08:59 Last Admin: 05/27/20 07:22 Dose: 20 mg Documented by: [id number] Admin: 05/26/20 08:23 Dose: 20 mg Documented by: [id number] Admin: 05/25/20 08:09 Dose: 20 mg Documented by: [id number] Admin: 05/24/20 08:37 Dose: 20 mg Documented by: [id number] Admin: 05/23/20 08:56 Dose: 20 mg Documented by: [id number] Ferrous Gluconate (Ferrous Gluconate 324 Mg Tab) 324 mg PO DAILY@1200 [facility] Stop: 06/22/20 11:59 Last Admin: 05/27/20 12:12 Dose: 324 mg Documented by: [id number] Admin: 05/26/20 12:54 Dose: 324 mg Documented by: [id number] Admin: 05/25/20 11:32 Dose: 324 mg Documented by: [id number] Admin: 05/24/20 12:54 Dose: 324 mg Documented by: [id number] Admin: 05/23/20 12:44 Dose: 324 mg Documented by: [id number] Formoterol Fumarate (Formoterol 20 Mcg/2 Ml Vial) 20 mcg INH BIDR [facility] Stop: 06/21/20 21:19 Last Admin: 05/27/20 19:13 Dose: 20 mcg Documented by: [id number] Admin: 05/27/20 07:06 Dose: 20 mcg Documented by: [id number] Admin: 05/26/20 19:00 Dose: 20 mcg Documented by: [id number] Admin: 05/26/20 07:15 Dose: 20 mcg Documented by: [id number] Admin: 05/25/20 18:55 Dose: Not Given Documented by: [id number] Admin: 05/25/20 07:28 Dose: 20 mcg Documented by: [id number] Admin: 05/24/20 19:08 Dose: 20 mcg Documented by: [id number] Admin: 05/24/20 07:08 Dose: 20 mcg Documented by: [id number] Admin: 05/23/20 18:50 Dose: 20 mcg Documented by: [id number] Admin: 05/23/20 07:15 Dose: 20 mcg Documented by: [id number] Admin: 05/22/20 22:17 Dose: 20 mcg Documented by: [id number] Insulin Aspart (Insulin Aspart 100 Units/Ml 3 Ml Pen) 0 units SC [facility]; Protocol Stop: 06/21/20 21:44 Last Admin: 05/27/20 20:17 Dose: 5 units Documented by: [id number] Cosigned by: [id number] Admin: 05/27/20 17:03 Dose: 16 units Documented by: [id number] Cosigned by: [id number] Admin: 05/27/20 12:13 Dose: 16 units Documented by: [id number] Cosigned by: [id number] Admin: 05/27/20 08:08 Dose: 10 units Documented by: [id number] Cosigned by: [id number] Admin: 05/26/20 21:26 Dose: 4 units Documented by: [id number] Cosigned by: [id number] Admin: 05/26/20 17:25 Dose: 12 units Documented by: [id number] Cosigned by: [id number] Admin: 05/26/20 13:08 Dose: 16 units Documented by: [id number] Cosigned by: [id number] Admin: 05/26/20 08:28 Dose: 19 units Documented by: [id number] Cosigned by: [id number] Admin: 05/25/20 20:52 Dose: 8 units Documented by: [id number] Cosigned by: [id number] Admin: 05/25/20 17:16 Dose: 13 units Documented by: [id number] Cosigned by: [id number] Admin: 05/25/20 12:14 Dose: 17 units Documented by: [id number] Cosigned by: [id number] Admin: 05/25/20 08:12 Dose: 23 units Documented by: [id number] Cosigned by: [id number] Admin: 05/24/20 20:30 Dose: 8 units Documented by: [id number] Cosigned by: [id number] Admin: 05/24/20 17:09 Dose: 14 units Documented by: [id number] Cosigned by: [id number] Admin: 05/24/20 12:57 Dose: 12 units Documented by: [id number] Cosigned by: [id number] Admin: 05/24/20 08:42 Dose: 12 units Documented by: [id number] Cosigned by: [id number] Admin: 05/23/20 20:29 Dose: 4 units Documented by: [id number] Cosigned by: [id number] Admin: 05/23/20 17:21 Dose: 10 units Documented by: [id number] Cosigned by: [id number] Admin: 05/23/20 12:48 Dose: 37 units Documented by: [id number] Cosigned by: [id number] Admin: 05/23/20 09:02 Dose: 26 units Documented by: [id number] Cosigned by: [id number] Admin: 05/22/20 22:28 Dose: 14 units Documented by: [id number] Cosigned by: [id number] Insulin Glargine (Insulin Glargine Solostar 100 Units/Ml 3 Ml Pen) 0 units SC HS [facility]; Protocol Stop: 06/22/20 20:59 Last Admin: 05/27/20 20:16 Dose: 15 units Documented by: [id number] Cosigned by: [id number] Admin: 05/26/20 21:26 Dose: 20 units Documented by: [id number] Cosigned by: [id number] Admin: 05/25/20 20:49 Dose: 30 units Documented by: [id number] Cosigned by: [id number] Admin: 05/24/20 20:30 Dose: 25 units Documented by: [id number] Cosigned by: [id number] Admin: 05/23/20 20:28 Dose: 20 units Documented by: [id number] Cosigned by: [id number] Insulin Human NPH (Insulin Human Nph) 35 units SC QDB [facility]; Protocol Stop: 06/26/20 07:29 Last Admin: 05/27/20 08:07 Dose: 35 units Documented by: [id number] Cosigned by: [id number] Levothyroxine Sodium (Levothyroxine Sodium 25 Mcg Tablet) 25 mcg PO DAILYBB [facility] Stop: 06/22/20 06:29 Last Admin: 05/27/20 06:01 Dose: 25 mcg Documented by: [id number] Admin: 05/26/20 05:52 Dose: 25 mcg Documented by: [id number] Admin: 05/25/20 06:13 Dose: 25 mcg Documented by: [id number] Admin: 05/24/20 06:20 Dose: 25 mcg Documented by: [id number] Admin: 05/23/20 06:24 Dose: 25 mcg Documented by: [id number] Magnesium Oxide (Magnesium Oxide 400 Mg Tab) 400 mg PO BID [facility] Stop: 06/21/20 21:19 Last Admin: 05/27/20 20:12 Dose: 400 mg Documented by: [id number] Admin: 05/27/20 07:20 Dose: 400 mg Documented by: [id number] Admin: 05/26/20 21:30 Dose: 400 mg Documented by: [id number] Admin: 05/26/20 08:23 Dose: 400 mg Documented by: [id number] Admin: 05/25/20 20:50 Dose: 400 mg Documented by: [id number] Admin: 05/25/20 08:15 Dose: 400 mg Documented by: [id number] Admin: 05/24/20 20:03 Dose: 400 mg Documented by: [id number] Admin: 05/24/20 08:37 Dose: 400 mg Documented by: [id number] Admin: 05/23/20 20:29 Dose: 400 mg Documented by: [id number] Admin: 05/23/20 08:57 Dose: 400 mg Documented by: [id number] Admin: 05/22/20 22:26 Dose: 400 mg Documented by: [id number] Menthol (Cough Drop (Sugar Free) Kena 24 Kena/1 Box) 1 kena BUCCAL PRN PRN PRN Reason: Sore Throat Stop: 06/22/20 15:24 Last Admin: 05/26/20 17:36 Dose: 1 kena Documented by: [id number] Admin: 05/23/20 17:30 Dose: 1 kena Documented by: [id number] Metoprolol Succinate (Metoprolol Succ 25mg Ext Rel Tab) 25 mg PO BID [facility] Stop: 06/21/20 21:19 Last Admin: 05/27/20 20:14 Dose: 25 mg Documented by: [id number] Admin: 05/27/20 07:20 Dose: Not Given Documented by: [id number] Admin: 05/26/20 21:30 Dose: 25 mg Documented by: [id number] Admin: 05/26/20 08:23 Dose: 25 mg Documented by: [id number] Admin: 05/25/20 20:53 Dose: 25 mg Documented by: [id number] Admin: 05/25/20 08:15 Dose: 25 mg Documented by: [id number] Admin: 05/24/20 20:03 Dose: 25 mg Documented by: [id number] Admin: 05/24/20 08:37 Dose: 25 mg Documented by: [id number] Admin: 05/23/20 20:29 Dose: 25 mg Documented by: [id number] Admin: 05/23/20 08:57 Dose: 25 mg Documented by: [id number] Admin: 05/22/20 22:27 Dose: 25 mg Documented by: [id number] Mirtazapine (Mirtazapine Tab 15 Mg Tab) 30 mg PO HS [facility] Stop: 06/21/20 21:19 Last Admin: 05/27/20 20:13 Dose: 30 mg Documented by: [id number] Admin: 05/26/20 21:30 Dose: 30 mg Documented by: [id number] Admin: 05/25/20 20:52 Dose: 30 mg Documented by: [id number] Admin: 05/24/20 20:03 Dose: 30 mg Documented by: [id number] Admin: 05/23/20 20:28 Dose: 30 mg Documented by: [id number] Admin: 05/22/20 22:27 Dose: 30 mg Documented by: [id number] Montelukast Sodium (Montelukast Sodium 10 Mg Tablet) 10 mg PO HS [facility] Stop: 06/21/20 21:19 Last Admin: 05/27/20 20:13 Dose: 10 mg Documented by: [id number] Admin: 05/26/20 21:30 Dose: 10 mg Documented by: [id number] Admin: 05/25/20 20:53 Dose: 10 mg Documented by: [id number] Admin: 05/24/20 20:03 Dose: 10 mg Documented by: [id number] Admin: 05/23/20 20:29 Dose: 10 mg Documented by: [id number] Admin: 05/22/20 22:26 Dose: 10 mg Documented by: [id number] Pantoprazole Sodium (Pantoprazole 40 Mg Tab) 40 mg PO BID [facility] Stop: 06/21/20 21:19 Last Admin: 05/27/20 20:13 Dose: 40 mg Documented by: [id number] Admin: 05/27/20 07:20 Dose: 40 mg Documented by: [id number] Admin: 05/26/20 21:30 Dose: 40 mg Documented by: [id number] Admin: 05/26/20 08:23 Dose: 40 mg Documented by: [id number] Admin: 05/25/20 20:52 Dose: 40 mg Documented by: [id number] Admin: 05/25/20 08:15 Dose: 40 mg Documented by: [id number] Admin: 05/24/20 20:03 Dose: 40 mg Documented by: [id number] Admin: 05/24/20 08:36 Dose: 40 mg Documented by: [id number] Admin: 05/23/20 20:29 Dose: 40 mg Documented by: [id number] Admin: 05/23/20 08:57 Dose: 40 mg Documented by: [id number] Admin: 05/22/20 22:27 Dose: 40 mg Documented by: [id number] Polyethylene Glycol (Polyethylene (Miralax) 17 Gm Pack) 17 gm PO DAILY PRN PRN Reason: Constipation Stop: 06/21/20 21:19 Last Admin: 05/27/20 21:57 Dose: 17 gm Documented by: [id number] Potassium Chloride (Potassium Chloride 20 Meq Tabcr) 20 meq PO QAM [facility] Stop: 06/22/20 08:59 Last Admin: 05/27/20 07:23 Dose: 20 meq Documented by: [id number] Admin: 05/26/20 08:21 Dose: 20 meq Documented by: [id number] Admin: 05/25/20 08:16 Dose: 20 meq Documented by: [id number] Admin: 05/24/20 08:36 Dose: 20 meq Documented by: [id number] Admin: 05/23/20 08:56 Dose: 20 meq Documented by: [id number] Prednisone (Prednisone 20 Mg Tab) 40 mg PO DAILY [facility] Stop: 06/25/20 08:59 Last Admin: 05/27/20 07:22 Dose: 40 mg Documented by: [id number] Admin: 05/26/20 10:50 Dose: 40 mg Documented by: [id number] Quetiapine Fumarate (Quetiapine Fumarate 200 Mg Tab) 200 mg PO HS [facility] Stop: 06/21/20 21:19 Last Admin: 05/27/20 20:13 Dose: 200 mg Documented by: [id number] Admin: 05/26/20 21:30 Dose: 200 mg Documented by: [id number] Admin: 05/25/20 20:53 Dose: 200 mg Documented by: [id number] Admin: 05/24/20 20:03 Dose: 200 mg Documented by: [id number] Admin: 05/23/20 20:28 Dose: 200 mg Documented by: [id number] Admin: 05/22/20 22:27 Dose: 200 mg Documented by: [id number] Rivaroxaban (Rivaroxaban 20 Mg Tab) 20 mg PO QDD [facility] Stop: 06/22/20 16:29 Last Admin: 05/27/20 17:03 Dose: 20 mg Documented by: [id number] Admin: 05/26/20 17:26 Dose: 20 mg Documented by: [id number] Admin: 05/25/20 16:51 Dose: 20 mg Documented by: [id number] Admin: 05/24/20 17:08 Dose: 20 mg Documented by: [id number] Admin: 05/23/20 17:20 Dose: 20 mg Documented by: [id number] Roflumilast (Roflumilast 500 Mcg Tab) 500 mcg PO QAM [facility] Stop: 06/22/20 08:59 Last Admin: 05/27/20 07:22 Dose: 500 mcg Documented by: [id number] Admin: 05/26/20 08:22 Dose: 500 mcg Documented by: [id number] Admin: 05/25/20 08:15 Dose: 500 mcg Documented by: [id number] Admin: 05/24/20 08:37 Dose: 500 mcg Documented by: [id number] Admin: 05/23/20 08:56 Dose: 500 mcg Documented by: [id number] Spironolactone (Spironolactone 100 Mg Tab) 100 mg PO QAM [facility] Stop: 06/22/20 08:59 Last Admin: 05/27/20 07:23 Dose: 100 mg Documented by: [id number] Admin: 05/26/20 08:22 Dose: 100 mg Documented by: [id number] Admin: 05/25/20 08:16 Dose: 100 mg Documented by: [id number] Admin: 05/24/20 08:36 Dose: 100 mg Documented by: [id number] Admin: 05/23/20 08:58 Dose: 100 mg Documented by: [id number] Sucralfate (Sucralfate 1 Gm Tab) 1 gm PO ACHS [facility] Stop: 06/21/20 21:19 Last Admin: 05/27/20 20:11 Dose: 1 gm Documented by: [id number] Admin: 05/27/20 17:03 Dose: 1 gm Documented by: [id number] Admin: 05/27/20 12:12 Dose: 1 gm Documented by: [id number] Admin: 05/27/20 07:20 Dose: 1 gm Documented by: [id number] Admin: 05/26/20 21:30 Dose: 1 gm Documented by: [id number] Admin: 05/26/20 17:25 Dose: 1 gm Documented by: [id number] Admin: 05/26/20 12:53 Dose: 1 gm Documented by: [id number] Admin: 05/26/20 08:23 Dose: 1 gm Documented by: [id number] Admin: 05/25/20 20:49 Dose: 1 gm Documented by: [id number] Admin: 05/25/20 16:48 Dose: 1 gm Documented by: [id number] Admin: 05/25/20 11:32 Dose: 1 gm Documented by: [id number] Admin: 05/25/20 07:43 Dose: 1 gm Documented by: [id number] Admin: 05/24/20 20:03 Dose: 1 gm Documented by: [id number] Admin: 05/24/20 17:09 Dose: 1 gm Documented by: [id number] Admin: 05/24/20 12:54 Dose: 1 gm Documented by: [id number] Admin: 05/24/20 08:39 Dose: 1 gm Documented by: [id number] Admin: 05/23/20 20:28 Dose: 1 gm Documented by: [id number] Admin: 05/23/20 17:20 Dose: 1 gm Documented by: [id number] Admin: 05/23/20 12:44 Dose: 1 gm Documented by: [id number] Admin: 05/23/20 08:56 Dose: 1 gm Documented by: [id number] Admin: 05/22/20 22:25 Dose: 1 gm Documented by: [id number] Theophylline (Theophylline 400 Mg Extended Rel Tab) 400 mg PO QAM [facility] Stop: 06/22/20 08:59 Last Admin: 05/27/20 07:23 Dose: 400 mg Documented by: [id number] Admin: 05/26/20 08:22 Dose: 400 mg Documented by: [id number] Admin: 05/25/20 08:15 Dose: 400 mg Documented by: [id number] Admin: 05/24/20 08:37 Dose: 400 mg Documented by: [id number] Admin: 05/23/20 08:58 Dose: 400 mg Documented by: [id number] Umeclidinium [place] (Umeclidinium [place] 62.5mcg/Blister 7 Puffs/Inhaler) 1 puffs INH DAILY [facility] Stop: 06/23/20 08:59 Last Admin: 05/27/20 07:24 Dose: 1 puffs Documented by: [id number] Admin: 05/26/20 08:24 Dose: 1 puffs Documented by: [id number] Admin: 05/25/20 08:09 Dose: 1 puffs Documented by: [id number] Admin: 05/24/20 08:39 Dose: 1 puffs Documented by: [id number] Vitamin D (Cholecalciferol (Vitamin D) 400 Units Tablet) 400 units PO QAM [facility] Stop: 06/22/20 08:59 Last Admin: 05/27/20 07:22 Dose: 400 units Documented by: [id number] Admin: 05/26/20 08:23 Dose: 400 units Documented by: [id number] Admin: 05/25/20 08:09 Dose: 400 units Documented by: [id number] Admin: 05/24/20 08:38 Dose: 400 units Documented by: [id number] Admin: 05/23/20 08:56 Dose: 400 units Documented by: [id number] Discontinued Medications Albuterol (Albuterol Hfa 8 Gm Inhaler) 2 puffs INH NOW ONE Stop: 05/22/20 17:10 Last Admin: 05/22/20 17:21 Dose: 2 puffs Documented by: [id number] Albuterol (Albut/Ipratrop 3mg/0.5mg Neb 3 Ml Vial) 3 ml NEB NOW STA Stop: 05/22/20 19:25 Last Admin: 05/22/20 19:47 Dose: 3 ml Documented by: [id number] Epinephrine (Racepinephrine 2.25% Nebu Soln 0.5 Ml Vial) 0.5 ml NEB NOW STA Stop: 05/23/20 10:40 Last Admin: 05/23/20 10:45 Dose: 0.5 ml Documented by: [id number] Magnesium Sulfate/Dextrose (Magnesium Sulfate / D5w) 1 gm in 100 mls @ 50 mls/hr IV ONE ONE Stop: 05/22/20 19:08 Last Infusion: 05/22/20 19:47 Dose: 0 mls/hr Documented by: [id number] Admin: 05/22/20 17:47 Dose: 50 mls/hr Documented by: [id number] Azithromycin 500 mg/ Dextrose 255 mls @ 125 mls/hr IV Q24H [facility]; Protocol Stop: 05/25/20 21:59 Last Infusion: 05/24/20 01:03 Dose: 0 mls/hr Documented by: [id number] Admin: 05/23/20 22:16 Dose: 125 mls/hr Documented by: [id number] Infusion: 05/23/20 02:00 Dose: 0 mls/hr Documented by: [id number] Admin: 05/23/20 00:00 Dose: 125 mls/hr Documented by: [id number] Methylprednisolone 40 mg/ (Syringe) 0.64 mls @ 1.5 mls/min IV Q6H [facility] Stop: 06/22/20 00:00 Last Admin: 05/23/20 15:22 Dose: Not Given Documented by: [id number] Admin: 05/23/20 06:24 Dose: 1.5 mls/min Documented by: [id number] Admin: 05/23/20 00:00 Dose: 1.5 mls/min Documented by: [id number] Methylprednisolone 40 mg/ (Syringe) 0.64 mls @ 1.5 mls/min IV DAILY@0900 [facility] Stop: 06/23/20 08:59 Last Admin: 05/24/20 08:40 Dose: 1.5 mls/min Documented by: [id number] Methylprednisolone 40 mg/ (Syringe) 0.64 mls @ 1.5 mls/min IV Q12 [facility] Stop: 06/23/20 20:59 Last Admin: 05/25/20 20:53 Dose: 1.5 mls/min Documented by: [id number] Admin: 05/25/20 08:15 Dose: 1.5 mls/min Documented by: [id number] Admin: 05/24/20 20:04 Dose: 1.5 mls/min Documented by: [id number] Insulin Aspart (Insulin Aspart 100 Units/Ml 3 Ml Pen) 0 units SC 0000,0400 CHU; Protocol Stop: 05/23/20 04:01 Last Admin: 05/23/20 04:23 Dose: 4 units Documented by: [id number] Cosigned by: [id number] Admin: 05/23/20 00:05 Dose: 11 units Documented by: [id number] Cosigned by: [id number] Insulin Aspart (Insulin Aspart 100 Units/Ml 3 Ml Pen) 0 units SC 0000,0400 CHU; Protocol Stop: 05/24/20 04:01 Last Admin: 05/24/20 04:08 Dose: Not Given Documented by: [id number] Cosigned by: [id number] Admin: 05/24/20 00:10 Dose: 5 units Documented by: [id number] Cosigned by: [id number] Insulin Glargine (Insulin Glargine Solostar 100 Units/Ml 3 Ml Pen) 25 units SC NOW ONE; Protocol Stop: 05/22/20 21:46 Last Admin: 05/22/20 22:27 Dose: 25 units Documented by: [id number] Cosigned by: [id number] Insulin Glargine (Insulin Glargine Solostar 100 Units/Ml 3 Ml Pen) 10 units SC QA ONE; Protocol Stop: 05/23/20 09:01 Last Admin: 05/23/20 09:00 Dose: 10 units Documented by: [id number] Cosigned by: [id number] Insulin Human NPH (Insulin Human Nph) 15 units SC QDB CHU; Protocol Stop: 06/23/20 08:29 Last Admin: 05/24/20 08:49 Dose: 15 units Documented by: [id number] Cosigned by: [id number] Insulin Human NPH (Insulin Human Nph) 15 units SC QDB CHU; Protocol Stop: 10/11/20 07:29 Last Admin: 05/26/20 11:02 Dose: Not Given Documented by: [id number] Admin: 05/25/20 08:11 Dose: 15 units Documented by: [id number] Cosigned by: [id number] Insulin Human NPH (Insulin Human Nph) 30 units SC ONE ONE; Protocol Stop: 05/26/20 09:16 Last Admin: 05/26/20 10:50 Dose: 30 units Documented by: [id number] Cosigned by: [id number] Methylprednisolone (Methylprednisolone 125 Mg/2 Ml Vial) 125 mg IV NOW STA Stop: 05/22/20 17:10 Last Admin: 05/22/20 17:47 Dose: 125 mg Documented by: [id number] Medical Decision Making Differential Diagnosis Appendicitis, ovarian cyst, ovarian torsion, ectopic , TOA, PID, infections, diverticulitis, UTI, obstruction, mesenteric ischemia, aortic pathology, inflammatory bowel disease, renal colic, PUD, pancreatitis, biliary pathology, hernia, volvulus, constipation, as well as other pathologies. Medical Records Attestation: I reviewed the patient's medical records. Home Medications Current Medication List: was personally reviewed by me Laboratory Data Attestation: I reviewed the patient's lab results. Result diagrams: 05/22/20 17:33 05/25/20 05:20 Lab Results 05/22/20 05/22/20 05/22/20 Range/Units 17:33 17:33 17:33 WBC 11.93 H (4.8-10.8) K/uL RBC 4.14 L (4.2-5.4) M/uL Hgb 9.6 L (12.0-16.0) g/dL Hct 33.4 L (37-47) % MCV 80.7 (80-100) fL MCH 23.2 L (25-34) pg MCHC 28.7 L (32-36) g/dL RDW Std Deviation 54.9 H (36.4-46.3) fL RDW Coeff of Jame 18.7 H (11.5-14.5) % Plt Count 248 (130-400) K/uL MPV 8.8 (7.4-10.4) fL Immature Gran % (Auto) 0.3 % Neut % (Auto) 70.0 % Lymph % (Auto) 22.1 % Cochran % (Auto) 5.9 % Eos % (Auto) 1.6 % Baso % (Auto) 0.1 % Neut # (Auto) 8.36 H (1.4-6.5) K/uL Lymph # (Auto) 2.64 (1.2-3.4) K/uL Cochran # (Auto) 0.70 H (0.11-0.59) K/uL Eos # (Auto) 0.19 (0-0.5) K/uL Baso # (Auto) 0.01 (0-0.2) K/uL Immature Gran # (Auto) 0.03 H (0.00-0.02) K/uL PT 12.0 (9.0-12.0) Seconds INR 1.1 (0.9-1.1) APTT 21.7 (21.0-31.0) Seconds PTT Ratio 0.8 Sodium 138 (136-145) mmol/L Potassium 4.7 (3.5-5.1) mmol/L Chloride 100 (98-107) mmol/L Carbon Dioxide 33 H (21-32) mmol/L Anion Gap 5.0 (3-11) BUN 24 H (7-18) mg/dl Creatinine 0.99 (0.6-1.2) mg/dl Est Cr Clr Drug Dosing 54.5 ml/min Est GFR ( Amer) 64.6 Est GFR (Non-Af Amer) 55.7 BUN/Creatinine Ratio 24.3 H (10-20) Glucose 250 H (70-99) mg/dl Estimat Average Glucose mg/dl Hemoglobin A1c (4.5-5.6) % Calcium 10.2 H (8.5-10.1) mg/dl Total Bilirubin 0.2 (0.2-1) mg/dl AST 10 L (15-37) U/L ALT 20 (12-78) U/L Alkaline Phosphatase 104 (45-117) U/L Troponin I < 0.015 (0-0.045) ng/ml NT-Pro-B Natriuret Pep 126 (0-900) pg/ml Total Protein 6.3 L (6.4-8.2) gm/dl Albumin 2.9 L (3.4-5.0) gm/dl Globulin 3.4 (2.5-4.0) gm/dl Albumin/Globulin Ratio 0.9 (0.9-2) Lipase 148 (73-393) U/L 05/22/20 Range/Units 17:33 WBC (4.8-10.8) K/uL RBC (4.2-5.4) M/uL Hgb (12.0-16.0) g/dL Hct (37-47) % MCV (80-100) fL MCH (25-34) pg MCHC (32-36) g/dL RDW Std Deviation (36.4-46.3) fL RDW Coeff of Jame (11.5-14.5) % Plt Count (130-400) K/uL MPV (7.4-10.4) fL Immature Gran % (Auto) % Neut % (Auto) % Lymph % (Auto) % Cochran % (Auto) % Eos % (Auto) % Baso % (Auto) % Neut # (Auto) (1.4-6.5) K/uL Lymph # (Auto) (1.2-3.4) K/uL Cochran # (Auto) (0.11-0.59) K/uL Eos # (Auto) (0-0.5) K/uL Baso # (Auto) (0-0.2) K/uL Immature Gran # (Auto) (0.00-0.02) K/uL PT (9.0-12.0) Seconds INR (0.9-1.1) APTT (21.0-31.0) Seconds PTT Ratio Sodium (136-145) mmol/L Potassium (3.5-5.1) mmol/L Chloride (98-107) mmol/L Carbon Dioxide (21-32) mmol/L Anion Gap (3-11) BUN (7-18) mg/dl Creatinine (0.6-1.2) mg/dl Est Cr Clr Drug Dosing ml/min Est GFR ( Amer) Est GFR (Non-Af Amer) BUN/Creatinine Ratio (10-20) Glucose (70-99) mg/dl Estimat Average Glucose 220 mg/dl Hemoglobin A1c 9.3 H (4.5-5.6) % Calcium (8.5-10.1) mg/dl Total Bilirubin (0.2-1) mg/dl AST (15-37) U/L ALT (12-78) U/L Alkaline Phosphatase (45-117) U/L Troponin I (0-0.045) ng/ml NT-Pro-B Natriuret Pep (0-900) pg/ml Total Protein (6.4-8.2) gm/dl Albumin (3.4-5.0) gm/dl Globulin (2.5-4.0) gm/dl Albumin/Globulin Ratio (0.9-2) Lipase (73-393) U/L Imaging Data Radiologist's Impression: [place], [place] [phone] XRay Report Patient: ROSA HASSAN Date: 05/22/20 MR#: [id number]: [address] Acct ID:[id number]: Date: 1945[facility] Zip: [place] [address] Age: 74Location: ED Sex: FRoom/Bed: Att Phy:Diagnosis: DISTRESS Urmila Phy: Anil Rodriguez D.O.Service Date: 05/22/20 Fam Phy:Interpreting Phy: Rick Canchola MD Admit Phy: Ordering Phy: Lane Andrade MD cc: ~ XR chest 1V portable CLINICAL HISTORY: Chest pain. COMPARISON STUDY: Chest radiograph December 01, 2019. FINDINGS: Lung volumes are normal. There is no pneumothorax or pleural effusion. Cardiomediastinal silhouette is stable. Apparent mild left basilar opacity is unchanged. There is no evidence for pulmonary edema. There is no convincing evidence for pneumonia. IMPRESSION: 1. No definite acute findings. 2. Hazy left basilar opacity which likely reflects atelectasis or artifact. ACT 112: Negative or not required by law. Electronically signed by: Rick Canchola M.D. 05/22/2020 5:25 PM Dictated: 05/22/201723 Transcribed: 05/22/20 172 [facility] Narrative Patient was seen and evaluated as above in room. Review was performed of nursing notes and vital signs. I did review pertinent previous visits and patient history. After obtaining a thorough history and physical examination the above work up was performed. This is a 74-year-old female who is morbidly obese who presents emergency department wheezing. She was given Solu-Medrol as well as albuterol inhaler here in the emergency department. The patient remains on oxygen therefore I did discuss the case with the hospitalist service who did agree to admit the patient. While in the department, I personally reevaluated the patient several times and each time the patient was found to be resting comfortably. The patient was educated upon management, educated upon todays findings/results, educated upon importance of follow up from today's visit, educated upon symptoms in which to return, had questions answered prior to discharge, verbalized understanding, and was discharged home in good condition. An order was placed for continuous cardiac monitoring. The monitor shows a rate of 67 with Normal Sinus rhythm. The patient was evaluated during the global COVID-19 pandemic, and that diagnosis was suspected/considered upon their initial presentation. Their evaluation, treatment and testing was consistent with current guidelines for patients who present with complaints or symptoms that may be related to COVID- 19. Impression & Plan COPD (chronic obstructive pulmonary disease), CHF (congestive heart failure), Hypoxia Discharge Plan Visit Data Chief Complaint: Respiratory Distress ED Provider: Lane Andrade Discharge Problem: COPD (chronic obstructive pulmonary disease), CHF (congestive heart failure), Hypoxia Patient Disposition: Admitted As Inpatient Discharge Instructions Interventions: ED Discharge Assessment Last Done: 05/22/20 20:38 Discharge Problem: COPD (chronic obstructive pulmonary disease) Qualifiers: COPD type: unspecified COPD Qualified Code(s): J44.9 - Chronic obstructive pulmonary disease, unspecified CHF (congestive heart failure) Qualifiers: Heart failure type: unspecified Heart failure chronicity: unspecified Qualified Code(s): I50.9 - Heart failure, unspecified
[2020-05-25] MEDS: BUDESONIDE 0.5 MG/2 ML VIAL (PULMICORT) INH SCH ×2 (07:28→18:55)
[2020-05-25] MEDS: FORMOTEROL 20 MCG/2 ML VIAL INH SCH ×2 (07:28→18:55)
[2020-05-25] MEDS: SUCRALFATE 1 GM TAB PO SCH ×4 (07:43→20:49)
[2020-05-25] MEDS: CHOLECALCIFEROL (VITAMIN D) 400 UNITS TABLET PO SCH (08:09)
[2020-05-25] MEDS: UMECLIDINIUM BROMIDE 62.5MCG/BLISTER 7 PUFFS/INHALER INH SCH (08:09)
[2020-05-25] MEDS: FAMOTIDINE 20 MG TAB PO SCH (08:09)
[2020-05-25] MEDS: ESCITALOPRAM OXALATE 10 MG TAB PO SCH (08:10)
[2020-05-25] MEDS: INSULIN HUMAN NPH SC SCH (08:11)
[2020-05-25] MEDS: INSULIN ASPART 100 UNITS/ML 3 ML PEN SC SCH ×4 (08:12→20:52)
[2020-05-25] MEDS: MAGNESIUM OXIDE 400 MG TAB PO SCH ×2 (08:15→20:50)
[2020-05-25] MEDS: ROFLUMILAST 500 MCG TAB PO SCH (08:15)
[2020-05-25] MEDS: PANTOprazole 40 MG TAB PO SCH ×2 (08:15→20:52)
[2020-05-25] MEDS: methylPREDNISolone 40 MG in SYRINGE 0 ML IV SCH ×2 (08:15→20:53)
[2020-05-25] MEDS: AZITHROMYCIN 250 MG TAB PO SCH (08:15)
[2020-05-25] MEDS: METOPROLOL SUCC 25MG EXT REL TAB PO SCH ×2 (08:15→20:53)
[2020-05-25] MEDS: THEOPHYLLINE 400 MG EXTENDED REL TAB PO SCH (08:15)
[2020-05-25] MEDS: SPIRONOLACTONE 100 MG TAB PO SCH (08:16)
[2020-05-25] MEDS: POTASSIUM CHLORIDE 20 MEQ TABCR PO SCH (08:16)
[2020-05-25] MEDS: FERROUS GLUCONATE 324 MG TAB PO SCH (11:32)
--- NOTE | 2020-05-25 12:39 | Pulmonology Progress Note ---
Date of Service May 25, 2020 Assessment & Plan (1) Chronic respiratory failure with hypoxia: This is a 74-year-old female admitted for shortness of breath. She has multiple admissions over the last 2 years with most of them being at [facility]. She states that she has had progressive shortness of breath with wheezes and is now very short of breath with minimal exertion. She has history of pulmonary embolus from June 2016 treated with Xarelto long- term. She also reports that at one time she had a deep vein thrombosis. We are asked to see the patient in consultation secondary to multiple visits with no continuing of pulmonary care. 05/23/2020 AB.42/49/80 on 2 L nasal cannula --Acute on chronic hypercapnic hypoxic respiratory failure Secondary to COPD exacerbation Continue with steroids, antibiotics, bronchodilators O2 supplementation to keep O2 saturation between 88-92% BiPAP nightly and PRN shortness of breath Patient is on budesonide, formoterol nebulized at home as well as theophylline and Singulair. Lama inhaler (Incruse) has been added Absolute eosinophil count at presentation was 190. Patient does have history of absolute eosinophil count as high as 1030 back on 12/01/2019 Such patient can be thought of started on Biologics for elevated eosinophil counts as an outpatient. --Obesity Patient likely has VIJAY Will benefit from outpatient polysomnography Continue with BiPAP nightly and PRN --History of pulmonary embolism * No acute concerns * Apparently this imaging was done in 2015 * Patient was apparently on Coumadin but then converted to Xarelto which she currently maintains at 20 mg daily -- Breast cancer * Currently in remission with no adjuvant history * There is a secondary primary as patient had ovarian cancer when she was 21 years old * Chest x-ray without any appearance of lung mass or metastatic nodules * Mammogram scheduled every 6 months. Was scheduled yesterday but was admitted * Continue outpatient follow-up Plan: Continue with steroids and inhaled bronchodilators. Can think about tapering the steroids down to p.o. if the patient is doing well tomorrow. Continue antibiotics for total of 5 days. Follow-up CT chest when patient is agreeable to doing it. Please note the above document was generated using voice recognition software. It may contain grammatical, syntax or spelling errors. (2) Obesity hypoventilation syndrome: (3) Acute on chronic combined systolic (congestive) and diastolic (congestive) heart failure: (4) Breast cancer, right breast: Breast location: unspecified site of breast (5) Pulmonary embolism: (6) COPD (chronic obstructive pulmonary disease): (7) Anemia: Anemia type: unspecified type Qualified Code(s): D64.9 - Anemia, unspecified (8) DVT prophylaxis: Continue Xarelto Admission and Anticipated Discharge Date Admission Date: May 22, 2020 Subjective Patient seen and examined at bedside. No acute distress, no adverse events overnight. Patient states that she feels better compared to yesterday. She did use her BiPAP overnight for approximately 4 hours. She tolerated well. Denies any chest pain, no headache, no dizziness. Patient walked in the corridor today and she did well.. Review of Systems Review of Systems: All systems reviewed & are unremarkable except as noted in Subjective Physical Exam Physical Exam: Constitutional: No acute distress HEENT: EOMI, PERRLA, thick neck, no inspiratory stridor Respiratory system: Decreased air entry bilaterally, minimal expiratory wheeze wheeze appreciated bilaterally, no crackles, no rhonchi CVS: S1-S2 positive, no murmurs or gallops, distant heart sounds Abdomen: Soft, nontender, nondistended, positive bowel sounds x4, obese Extremities: +2 pulses bilaterally radialis/ dorsalis pedis, no cyanosis, no edema Neuro: Awake alert oriented x3 Psych: Normal mood and affect G/U: No Jackson Skin: no rashes, warm and dry Lymphatic: no cervical or axillary lymphadenopathy Results & Data Results & Data ([facility]) Vital Signs (Past 12 Hours) Vital Signs Temp Pulse Pulse Resp BP Pulse Ox 05/25/20 11:44 36.0 C L 65 20 137/70 95 05/25/20 11:06 65 18 96 05/25/20 10:57 59 L 05/25/20 07:30 36.6 C 62 20 143/90 H 92 05/25/20 07:28 62 18 92 05/25/20 03:17 57 L 18 93 05/25/20 03:07 36.4 C L 67 18 156/76 H 93 05/25/20 00:56 70 05/22/20 17:33 05/25/20 05:20 PG Care Time/CCT Total # of Minutes Spent Total Time Spent with Patient: Total time spent is greater than 50% in coordination of care (as documented) at patient's floor/unit and/or counseling patient: Coding Level of Care Code 04356 Subseq Hosp Care Lvl 3 Diagnoses Chronic respiratory failure with hypoxia J96.11 Obesity hypoventilation syndrome E66.2 Acute on chronic combined systolic (congestive) and diastolic (congestive) heart failure I50.43 Breast cancer, right breast C50.911 Breast location: unspecified site of breast Pulmonary embolism I26.99 COPD (chronic obstructive pulmonary disease) J44.9 Anemia D64.9 Anemia type: unspecified type DVT prophylaxis Z29.9
--- NOTE | 2020-05-25 13:33 | Pharmacy Report ---
Pharmacy Glycemic Short Note 2 - Date of Service May 25, 2020 - Glycemic Short BSG Results (Last 24 hours): 05/24/20 05/24/20 05/25/20 16:43 20:25 01:54 POC Glucose 115 H 179 H 188 H 05/25/20 05/25/20 07:23 11:34 POC Glucose 219 H 156 H Outpatient Anti-diabetic Regimen: * Lantus 15 units HS * Novolog 12 units TIDM * Metformin * A1c = 9.3% 05/23/20 Risk Factors for Insulin Resistance: * Steroids: Methylprednisolone 40 mg IV qAM increased to BID today * Diet: T2DM ASSESSMENT: 05/25/20 * Pt has received a total of 86 units of insulin over the past 24hrs * 40 units of basal {NPH & Lantus} + 46 units of bolus/prandial/correctional {NovoLog} * BSGs 14-45-541-179-219-156 mg/dl * Solumedrol continues at 40mg IV Q12hrs. Insulin regimen will need tapered with each step down in steroid dosing * Continuing stressed dose of outpatient Lantus for steroid hyperglycemia. Added AM NPH to cover AM dose of Solumedrol. Do not want to overdose Lantus to cover steroids as this would lead to hypo when steroids are rapidly tapered * AM fasting is elevated at 219 mg/dl --> will increase PM dose of Lantus * steroids have their most profound effect on post-prandial hyperglycemia - will tighten CF/CR 05/24/20 * BSG of 84 mg/dL yesterday at dinner 2nd too tight CHO ratio at lunch. This has been loosened * BSG of 75 mg/dL this Am 2nd higher Lantus dose (with effects persisting 24 hours) with effects of steroids administered in AM only yesterday dissipating overnight * Most other BSG's >200 mg/dL. Better control desired, but this was difficult to achieve based on previous admission(s) data, especially with changing steroid doses * Previous admission reviewed - patient is steroid sensitive. Responded in the past to NPH qAM combined with Lantus once-daily for basal regimen while on once daily steroid admin in AM. Will therefore continue Lantus qHS and add NPH qAM. * Steroids now increased to BID therefore steroid effects will again have an effect on BSG's overnight. Therefore will increase Lantus dose * Lower NPH dose selected this AM as compared to previous admissions 2nd lower AM fasting BSG and also with persistence of effect of Lantus administered yesterday evening 05/23/20 * 74 year admitted with COPD exacerbation. Multiple hospital admissions in the past, most recently at [facility] a little over a week ago and had been on PO steroids. Started on IV methylprednisone on admission * She is a type 2 diabetic managed on insulin/metformin at home. Pharmacy consulted for glycemic control. Patient known to service from other admissions. Plan to utilize similar parameters for insulin. * Received about 50 units of insulin yesterday, of which 25 were basal insulin. Fasting BSG this AM elevated at 254 mg/dL - plan to given an additional 10 units of basal insulin now and resume scale for Lantus at HS. Will tighten CF/CR based upon last admission in November as she was on steroids during that time as well. * Steroids tapering at lunch - had originally tightened / but will loosen with dinner PLAN FOR INPATIENT GLYCEMIC CONTROL: * Hold outpatient oral diabetes medications * Basal insulin: increase by~ 20% * Lantus 25-30 units SC HS * NPH 15 units SC qAM (administered with methylprednisolone/breakfast) * Bolus insulin: tighten parameters * NovoLog per scale ACHS or Q6hrs while NPO * Goal Range: Low 110 mg/dL - High 140 mg/dL * Correction Factor: 10 mg/dL/unit * Nutritional / Prandial insulin per carb ratio of 1 unit per 4 grams CHO consumed Discharge Recs: * A1c 9.3% (eAG 220) on 05/22, which is up from prior A1c of 7.9% on 12/02/19 * Given PMHx of CHF, most likely could benefit from SGLT-2 with evidence of reducing HF and/or CKD progression. * Was previously taking Metformin but states her provider took her off of this several months ago. Recommend re-initiating this as long as patient can tolerate * Additional insulin titration may be warranted if patient is dc with a steroid taper.
--- NOTE | 2020-05-25 15:26 | Hospitalist Progress Note ---
Date of Service May 25, 2020 Assessment & Plan (1) SOB (shortness of breath): Mini Clemons is a 74 year old woman with a past medical history significant for severe COPD and CHF here for COPD exacerbation Acute on Chronic respiratory failure with hypoxia Advanced COPD (No PFT's on record 2L at home), has had about three dozen admissions to hospital in last several years most recently 10 days ago at [facility] where she was discharged on PO steroids but yet has still gotten progressively short of breath. IV methypred tapered 40 mg q12h azithromycin changed to p.o. continuing home inhalers duonebs PRN Pulmonology consulted reinforced nocturnal Nippv use concern for elevation of eosinophil count follow-up as an outpatient, will attempt to have trilegy NIPPV Case management consult placed for frequent admissions Lives independently Full Code (2) COPD exacerbation: (3) Lower extremity edema: likely based on cor pulmonale (4) Anemia: (5) CHF (congestive heart failure): chronic systolic heart failure, last echo 2018 with EF 45%, did have LHC in 2018 with non occlusive or intervention worthy CAD CXR not showing pulmonary edema, do not believe CHF is major contributor to her current shortness of breath (6) Acid reflux: controlled continues famotidine (7) Diabetes: Continues to have metformin held ssi due to steroids (8) DVT prophylaxis: DVT PPx: Rivaroxaban for previous venous thrombosis Admission and Anticipated Discharge Date Admission Date: May 22, 2020 Subjective Patient states she feels somewhat better however she is reluctant to have a CAT scan due to claustrophobia. She does not understand the CAT scan is not something small or enclosed. Patient states that she still has fairly significantly short of breath not yet ready to go home based upon her objective findings I would agree with her Review of Systems Review of Systems: Mild distress and fatigue no headache, blurry or double vision no speech or swallowing issues no chest pain, pressure or palpitations Significantly short of breath pursed lip breathing's and deconditioning with extreme tachypnea when minor exertion no abdominal pain, nausea or vomiting, diarrhea or constipation no dysuria, hematuria or frequency no focal joint pain or swelling no back pain, CVA tenderness or radicular pain no bruising, bleeding or rashes no focal signs of weakness or numbness or altered sensation no complaints or anxiety or depression. Physical Exam Physical Exam: The patient appeared significantly short of breath, no cough Vital signs as documented. Head exam is normocephalic atraumatic no scleral icterus Neck is without JVD, thyromegaly, or carotid bruits. Lungs are diminished but with improved air movement still decreased at the bases Cardiac exam, Rhythm is regular.. No murmurs, rubs or gallops. Abdominal exam reveals normal bowel sounds, soft non tender, no masses Extremities are mildly edematous and both pedal pulses are normal. Neurologic exam is alert and oriented, no focal loss of strength or sensation Skin is without bruises or rashes Psychologically is without concerns for anxiety or depression. Results & Data Results & Data ([facility]) Vital Signs (Past 12 Hours) Vital Signs Temp Pulse Pulse Resp BP Pulse Ox 05/25/20 15:12 98.1 F 64 16 142/77 H 97 05/25/20 14:56 65 24 98 05/25/20 11:44 96.8 F L 65 20 137/70 95 05/25/20 11:06 65 18 96 05/25/20 10:57 59 L 05/25/20 07:30 97.9 F 62 20 143/90 H 92 05/25/20 07:28 62 18 92 PG Care Time/CCT Total # of Minutes Spent Total Time Spent with Patient: Total time spent is greater than 50% in coordination of care (as documented) at patient's floor/unit and/or counseling patient: Coding Level of Care Code 38114 Subseq Hosp Care Lvl 3 Diagnoses SOB (shortness of breath) R06.02 COPD exacerbation J44.1 Lower extremity edema R60.0 Anemia D64.9 Anemia type: unspecified type CHF (congestive heart failure) I50.9 Acid reflux K21.9 Diabetes E11.9; Z79.4 Diabetes mellitus type: type 2 Diabetes mellitus nursing home insulin use: with nursing home use Diabetes mellitus complication status: without complication DVT prophylaxis Z29.9 (1) Anemia Anemia type: unspecified type Qualified Code(s): D64.9 - Anemia, unspecified (2) Diabetes Diabetes mellitus type: type 2 Diabetes 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
[2020-05-25] MEDS: RIVAROXABAN 20 MG TAB PO SCH (16:51)
--- NOTE | 2020-05-25 20:27 | CT Scan Report ---
CT OF THE NECK WITHOUT CONTRAST CLINICAL HISTORY: Difficulty swallowing. Stridor. COMPARISON STUDY: No previous studies for comparison. TECHNIQUE: Axial images of the neck were obtained without IV contrast. Sagittal and coronal reconstru ctions were viewed. Automated exposure control was utilized for the study. A dose lowering technique was utilized adhering to the principles of ALARA. FINDINGS: Visualized portions of the intracranial contents are unremarkable. Evaluation of the neck i s suboptimal on this unenhanced exam. The parotid and submandibular glands are normal. The epiglottis is normal. No mucosal lesion is identified by CT. Visualized portions of the airway are patent. Ther e is no cervical lymphadenopathy, mass or fluid collection. There is no cervical spine fracture or ansari spicious lesion. Multilevel degenerative changes within the cervical spine are noted. Emphysema is no loan within the lung apices. The chest CT will be reported separately. There is no prevertebral edema. IMPRESSION: 1. No acute process within the neck. 2. Evaluation compromised the lack of IV contrast. 3. No cervical lymphadenopathy or mass. 4. Emphysema. ACT 112: Negative or not required by law. Electronically signed by: Rick Canchola M.D. 05/25/2020 8:26 PM
--- NOTE | 2020-05-25 20:34 | CT Scan Report ---
CT OF THE CHEST WITHOUT IV CONTRAST CLINICAL HISTORY: COPD. Hypoxia. COMPARISON STUDY: Chest CT October 28, 2017. Chest radiograph May 22, 2020. TECHNIQUE: Axial images of the chest were obtained without IV contrast. Images were reviewed in the axial, sagittal, and coronal planes. IV contrast was not administered for this examination. Automat ed exposure control was utilized for the study. A dose lowering technique was utilized adhering to t he principles of ALARA. FINDINGS: No enlarged axillary, mediastinal or hilar lymph nodes are present. There is moderate card iomegaly. No pericardial effusion is noted. Central airways are patent. No pneumothorax or pleural ef fusion is noted. There is severe upper lobe predominant emphysema. Right apical bulla is noted. This is unchanged. There is no consolidation. There are no suspicious pulmonary nodules. Linear opacities reflect atelectasis or scarring. A few old thoracic spine compression deformities are noted. IMPRESSION: 1. No acute process within the chest. 2. Severe emphysema. 3. Moderate cardiomegaly. ACT 112: Negative or not required by law. Electronically signed by: Rick Canchola M.D. 05/25/2020 8:33 PM
[2020-05-25] MEDS: INSULIN GLARGINE SOLOSTAR 100 UNITS/ML 3 ML PEN SC SCH (20:49)
[2020-05-25] MEDS: MIRTAZAPINE TAB 15 MG TAB PO SCH (20:52)
[2020-05-25] MEDS: QUETIAPINE FUMARATE 200 MG TAB PO SCH (20:53)
[2020-05-25] MEDS: MONTELUKAST SODIUM 10 MG TABLET PO SCH (20:53)
[2020-05-26] MEDS: ALBUT/IPRATROP 3MG/0.5MG NEB 3 ML VIAL NEB PRN ×4 (03:11→23:04)
[2020-05-26] MEDS: LEVOTHYROXINE SODIUM 25 MCG TABLET PO SCH (05:52)
[2020-05-26] MEDS: BUDESONIDE 0.5 MG/2 ML VIAL (PULMICORT) INH SCH ×2 (07:14→19:00)
[2020-05-26] MEDS: FORMOTEROL 20 MCG/2 ML VIAL INH SCH ×2 (07:15→19:00)
--- NOTE | 2020-05-26 08:15 | Hospitalist Progress Note ---
Date of Service May 26, 2020 Assessment & Plan (1) SOB (shortness of breath): Mini Clemons is a 74 year old woman with a past medical history significant for severe COPD and CHF here for COPD exacerbation Acute on Chronic respiratory failure with hypoxia Advanced COPD (No PFT's on record 2L at home), has had about three dozen admissions to hospital in last several years most recently 10 days ago at [facility] where she was discharged on PO steroids but yet has still gotten progressively short of breath. IV methypred tapered to prednisone 40 mg a day, azithromycin changed to p.o. 5 days total treatment, continuing home inhalers duonebs PRN Pulmonology consulted reinforced nocturnal Nippv use concern for elevation of eosinophil count follow-up as an outpatient, will attempt to have trilegy NIPPV Case management consult placed for frequent admissions Lives independently Ct chest and neck confirms severe COPD no other significant issues Full Code (2) COPD exacerbation: (3) Lower extremity edema: likely based on cor pulmonale (4) Anemia: (5) CHF (congestive heart failure): chronic systolic heart failure, last echo 2018 with EF 45%, did have LHC in 2018 with non occlusive or intervention worthy CAD CXR not showing pulmonary edema, do not believe CHF is major contributor to her current shortness of breath (6) Acid reflux: controlled continues famotidine (7) Diabetes: Continues to have metformin held ssi due to steroids (8) DVT prophylaxis: DVT PPx: Rivaroxaban for previous venous thrombosis Admission and Anticipated Discharge Date Admission Date: May 22, 2020 Subjective Patient continues with significant shortness of breath her CAT scan not reveal anything except for severe emphysema were trying to get noninvasive positive pressure ventilation for home. She still is pursed lip breathing and tachypneic Review of Systems Review of Systems: Mild distress and fatigue no headache, blurry or double vision no speech or swallowing issues no chest pain, pressure or palpitations Significantly short of breath pursed lip breathing's and deconditioning with extreme tachypnea when minor exertion no abdominal pain, nausea or vomiting, diarrhea or constipation no dysuria, hematuria or frequency no focal joint pain or swelling no back pain, CVA tenderness or radicular pain no bruising, bleeding or rashes no focal signs of weakness or numbness or altered sensation no complaints or anxiety or depression. Physical Exam Physical Exam: The patient appeared significantly short of breath, no cough Vital signs as documented. Head exam is normocephalic atraumatic no scleral icterus Neck is without JVD, thyromegaly, or carotid bruits. Lungs are diminished but with improved air movement still decreased at the bases Cardiac exam, Rhythm is regular.. No murmurs, rubs or gallops. Abdominal exam reveals normal bowel sounds, soft non tender, no masses Extremities are mildly edematous and both pedal pulses are normal. Neurologic exam is alert and oriented, no focal loss of strength or sensation Skin is without bruises or rashes Psychologically is without concerns for anxiety or depression. Results & Data Results & Data ([facility]) Vital Signs (Past 12 Hours) Vital Signs Temp Pulse Pulse Resp BP Pulse Ox 05/26/20 07:27 64 20 153/91 H 94 05/26/20 07:23 60 05/26/20 07:15 60 18 94 05/26/20 03:46 97.3 F L 60 21 144/80 H 92 05/26/20 03:23 60 23 95 05/26/20 03:11 64 18 92 05/26/20 02:10 58 L 05/25/20 23:26 98.2 F 62 18 133/84 94 05/25/20 23:03 77 18 95 05/25/20 23:02 70 18 95 PG Care Time/CCT Total # of Minutes Spent Total Time Spent with Patient: Total time spent is greater than 50% in coordinat ion of care (as documented) at patient's floor/unit and/or counseling patient: Coding Level of Care Code 63882 Subseq Hosp Care Lvl 2 Diagnoses SOB (shortness of breath) R06.02 COPD exacerbation J44.1 Lower extremity edema R60.0 Anemia D64.9 Anemia type: unspecified type CHF (congestive heart failure) I50.9 Acid reflux K21.9 Diabetes E11.9; Z79.4 Diabetes mellitus complication status: without complication Diabetes mellitus detention insulin use: with detention use Diabetes mellitus type: type 2 DVT prophylaxis Z29.9 (1) Diabetes Diabetes mellitus complication status: without complication Diabetes mellitus detention insulin use: with detention use Diabetes mellitus type: type 2 Qualified Code(s): E11.9 - Type 2 diabetes mellitus without complications; Z79.4 - manager long term care (current) use of insulin (2) Anemia Anemia type: unspecified type Qualified Code(s): D64.9 - Anemia, unspecified
[2020-05-26] MEDS: POTASSIUM CHLORIDE 20 MEQ TABCR PO SCH (08:21)
[2020-05-26] MEDS: THEOPHYLLINE 400 MG EXTENDED REL TAB PO SCH (08:22)
[2020-05-26] MEDS: ESCITALOPRAM OXALATE 10 MG TAB PO SCH (08:22)
[2020-05-26] MEDS: AZITHROMYCIN 250 MG TAB PO SCH (08:22)
[2020-05-26] MEDS: SPIRONOLACTONE 100 MG TAB PO SCH (08:22)
[2020-05-26] MEDS: ROFLUMILAST 500 MCG TAB PO SCH (08:22)
[2020-05-26] MEDS: METOPROLOL SUCC 25MG EXT REL TAB PO SCH ×2 (08:23→21:30)
[2020-05-26] MEDS: MAGNESIUM OXIDE 400 MG TAB PO SCH ×2 (08:23→21:30)
[2020-05-26] MEDS: SUCRALFATE 1 GM TAB PO SCH ×4 (08:23→21:30)
[2020-05-26] MEDS: FAMOTIDINE 20 MG TAB PO SCH (08:23)
[2020-05-26] MEDS: PANTOprazole 40 MG TAB PO SCH ×2 (08:23→21:30)
[2020-05-26] MEDS: CHOLECALCIFEROL (VITAMIN D) 400 UNITS TABLET PO SCH (08:23)
[2020-05-26] MEDS: UMECLIDINIUM BROMIDE 62.5MCG/BLISTER 7 PUFFS/INHALER INH SCH (08:24)
[2020-05-26] MEDS: INSULIN ASPART 100 UNITS/ML 3 ML PEN SC SCH ×5 (08:28→21:26)
[2020-05-26] MEDS ORDERED: INSULIN HUMAN NPH SC ONE (09:15)
--- NOTE | 2020-05-26 10:41 | Pharmacy Report ---
Pharmacy Glycemic Short Note 2 - Date of Service May 26, 2020 - Glycemic Short BSG Results (Last 24 hours): 05/25/20 05/25/20 05/25/20 11:34 16:39 20:08 POC Glucose 156 H 101 H 174 H 05/26/20 07:35 POC Glucose 172 H Outpatient Anti-diabetic Regimen: * Lantus 15 units HS * Novolog 12 units TIDM * Metformin * A1c = 9.3% 05/23/20 Risk Factors for Insulin Resistance: * Steroids: Prednisone 40 mg daily * Diet: T2DM ASSESSMENT: 05/26/20: * Mini received 106 units of insulin yesterday * 45 units fo basal (NPH + Lantus) * 61 units of novolog * BSGs ranged from 101 - 219 mg/dL * Solumedrol has been discontinued. Last dose given the evening of 05/25. Ordered to start prednisone 40 mg daily this morning. * Changes to insulin regimen: * I will increase NPH dose (~0.3 units/kg) since the peak effects of NPH nicely match those of prednisone * I will loosen Novolog CF/CR since steroids are being tapered * Will also decrease Lantus dose to avoid am hypoglycemia with steroids being tapered 05/25/20 * Pt has received a total of 86 units of insulin over the past 24hrs * 40 units of basal {NPH & Lantus} + 46 units of bolus/prandial/correctional {NovoLog} * BSGs 62-20-896-179-219-156 mg/dl * Solumedrol continues at 40mg IV Q12hrs. Insulin regimen will need tapered with each step down in steroid dosing * Continuing stressed dose of outpatient Lantus for steroid hyperglycemia. Added AM NPH to cover AM dose of Solumedrol. Do not want to overdose Lantus to cover steroids as this would lead to hypo when steroids are rapidly tapered * AM fasting is elevated at 219 mg/dl --> will increase PM dose of Lantus * steroids have their most profound effect on post-prandial hyperglycemia - will tighten CF/CR 05/24/20 * BSG of 84 mg/dL yesterday at dinner 2nd too tight CHO ratio at lunch. This has been loosened * BSG of 75 mg/dL this Am 2nd higher Lantus dose (with effects persisting 24 hours) with effects of steroids administered in AM only yesterday dissipating overnight * Most other BSG's >200 mg/dL. Better control desired, but this was difficult to achieve based on previous admission(s) data, especially with changing steroid doses * Previous admission reviewed - patient is steroid sensitive. Responded in the past to NPH qAM combined with Lantus once-daily for basal regimen while on once daily steroid admin in AM. Will therefore continue Lantus qHS and add NPH qAM. * Steroids now increased to BID therefore steroid effects will again have an effect on BSG's overnight. Therefore will increase Lantus dose * Lower NPH dose selected this AM as compared to previous admissions 2nd lower AM fasting BSG and also with persistence of effect of Lantus administered yesterday evening 05/23/20 * 74 year admitted with COPD exacerbation. Multiple hospital admissions in the p ast, most recently at [facility] a little over a week ago and had been on PO steroids. Started on IV methylprednisone on admission * She is a type 2 diabetic managed on insulin/metformin at home. Pharmacy consulted for glycemic control. Patient known to service from other admissions. Plan to utilize similar parameters for insulin. * Received about 50 units of insulin yesterday, of which 25 were basal insulin. Fasting BSG this AM elevated at 254 mg/dL - plan to given an additional 10 units of basal insulin now and resume scale for Lantus at HS. Will tighten CF/CR based upon last admission in November as she was on steroids during that time as well. * Steroids tapering at lunch - had originally tightened / but will loosen with dinner PLAN FOR INPATIENT GLYCEMIC CONTROL: * Hold outpatient oral diabetes medications * Basal insulin: * Lantus 20-25 units SC HS * Increase NPH to 30 units SC qAM (administered with prednisone) * Bolus insulin: * NovoLog per scale ACHS or Q6hrs while NPO * Goal Range: Low 110 mg/dL - High 140 mg/dL * Correction Factor: 15 mg/dL/unit * Nutritional / Prandial insulin per carb ratio of 1 unit per 5 grams CHO consumed Discharge Recs: * A1c 9.3% (eAG 220) on 05/22, which is up from prior A1c of 7.9% on 12/02/19 * Given PMHx of CHF, most likely could benefit from SGLT-2 with evidence of reducing HF and/or CKD progression. * Was previously taking Metformin but states her provider took her off of this several months ago. Recommend re-initiating this as long as patient can tolerate * Additional insulin titration may be warranted if patient is dc with a steroid taper.
[2020-05-26] MEDS: predniSONE 20 MG TAB PO SCH (10:50)
[2020-05-26] MEDS: INSULIN HUMAN NPH SC SCH (11:02)
--- NOTE | 2020-05-26 11:43 | Pulmonology Progress Note ---
Date of Service May 26, 2020 Assessment & Plan (1) Chronic respiratory failure with hypoxia: This is a 74-year-old female admitted for shortness of breath. She has multiple admissions over the last 2 years with most of them being at [facility]. She states that she has had progressive shortness of breath with wheezes and is now very short of breath with minimal exertion. She has history of pulmonary embolus from June 2016 treated with Xarelto long- term. She also reports that at one time she had a deep vein thrombosis. We are asked to see the patient in consultation secondary to multiple visits with no continuing of pulmonary care. 05/23/2020 AB.42/49/80 on [address] chest without contrast 05/25/2020 personally reviewed: Severe centrilobular and paraseptal emphysema appreciated. Right apical bulla. Insignificant mediastinal adenopathy. --Acute on chronic hypercapnic hypoxic respiratory failure Secondary to COPD exacerbation Continue with steroids, antibiotics, bronchodilators O2 supplementation to keep O2 saturation between 88-92% BiPAP nightly and PRN shortness of breath Patient is on budesonide, formoterol nebulized at home as well as theophylline and Singulair. Lama inhaler (Incruse) has been added Absolute eosinophil count at presentation was 190. Patient does have history of absolute eosinophil count as high as 1030 back on 12/01/2019 Such patient can be thought of started on Biologics for elevated eosinophil counts as an outpatient. --Obesity Patient likely has VIJAY Will benefit from outpatient polysomnography Continue with BiPAP nightly and PRN --History of pulmonary embolism * No acute concerns * Apparently this imaging was done in 2015 * Patient was apparently on Coumadin but then converted to Xarelto which she currently maintains at 20 mg daily -- Breast cancer * Currently in remission with no adjuvant history * There is a secondary primary as patient had ovarian cancer when she was 21 years old * Chest x-ray without any appearance of lung mass or metastatic nodules * Mammogram scheduled every 6 months. Was scheduled yesterday but was admitted * Continue outpatient follow-up Plan: Continue with prednisone taper. We will order ABG today based on that ABG will decide whether she will qualify for trilogy at home. Continue antibiotics for total of 5 days. Please note the above document was generated using voice recognition software. It may contain grammatical, syntax or spelling errors. (2) Obesity hypoventilation syndrome: (3) Acute on chronic combined systolic (congestive) and diastolic (congestive) heart failure: (4) Breast cancer, right breast: Breast location: unspecified site of breast (5) Pulmonary embolism: (6) COPD (chronic obstructive pulmonary disease): (7) Anemia: Anemia type: unspecified type Qualified Code(s): D64.9 - Anemia, unspecified (8) DVT prophylaxis: Continue Xarelto Admission and Anticipated Discharge Date Admission Date: May 22, 2020 Subjective Patient seen and examined at bedside. No acute distress, no adverse events overnight. Patient used the BiPAP machine for 6 hours yesterday tolerated well. States that she is feeling better. She does get short of breath on exertion. Patient was saturating 99% on 2 L nasal cannula at rest at the time of examination. Review of Systems Review of Systems: All systems reviewed & are unremarkable except as noted in Subjective Physical Exam Physical Exam: Constitutional: No acute distress HEENT: EOMI, PERRLA, thick neck, no inspiratory stridor Respiratory system: Decreased air entry bilaterally, minimal expiratory wheeze wheeze appreciated bilaterally, no crackles, no rhonchi CVS: S1-S2 positive, no murmurs or gallops, distant heart sounds Abdomen: Soft, nontender, nondistended, positive bowel sounds x4, obese Extremities: +2 pulses bilaterally radialis/ dorsalis pedis, no cyanosis, no edema Neuro: Awake alert oriented x3 Psych: Normal mood and affect G/U: No Jackson Skin: no rashes, warm and dry Lymphatic: no cervical or axillary lymphadenopathy Results & Data Results & Data ([facility]) Vital Signs (Past 12 Hours) Vital Signs Temp Pulse Pulse Resp BP Pulse Ox 05/26/20 11:32 37.0 C 63 18 147/71 H 97 05/26/20 11:15 51 L 26 H 96 05/26/20 07:27 64 20 153/91 H 94 05/26/20 07:23 60 05/26/20 07:15 60 18 94 05/26/20 03:46 36.3 C L 60 21 144/80 H 92 05/26/20 03:23 60 23 95 05/26/20 03:11 64 18 92 05/26/20 02:10 58 L 05/22/20 17:33 05/25/20 05:20 PG Care Time/CCT Total # of Minutes Spent Total Time Spent with Patient: Total time spent is greater than 50% in coordination of care (as documented) at patient's floor/unit and/or counseling patient: Coding Level of Care Code 65851 Subseq Hosp Care Lvl 3 Diagnoses Chronic respiratory failure with hypoxia J96.11 Obesity hypoventilation syndrome E66.2 Acute on chronic combined systolic (congestive) and diastolic (congestive) heart failure I50.43 Breast cancer, right breast C50.911 Breast location: unspecified site of breast Pulmonary embolism I26.99 COPD (chronic obstructive pulmonary disease) J44.9 Anemia D64.9 Anemia type: unspecified type DVT prophylaxis Z29.9
[2020-05-26 12:27] LABS: Base Excess ABG 3.8 mEq/L (-9-1.8); HCO3 ABG 29 mmol/L (19-24); Oxygen Saturation ABG 97.1 % (90-95); PCO2 ABG 45 mmHg (35-46); PO2 ABG 90 mmHg (80-95); pH ABG 7.43 (7.35-7.45)
[2020-05-26 12:28] LABS: Allen Test Pos (Pos)
[2020-05-26] MEDS: FERROUS GLUCONATE 324 MG TAB PO SCH (12:54)
[2020-05-26] MEDS: RIVAROXABAN 20 MG TAB PO SCH (17:26)
[2020-05-26] MEDS: COUGH DROP (SUGAR FREE) LOZ 24 LOZ/1 BOX BUCCAL PRN (17:36)
[2020-05-26] MEDS: INSULIN GLARGINE SOLOSTAR 100 UNITS/ML 3 ML PEN SC SCH (21:26)
[2020-05-26] MEDS: MIRTAZAPINE TAB 15 MG TAB PO SCH (21:30)
[2020-05-26] MEDS: MONTELUKAST SODIUM 10 MG TABLET PO SCH (21:30)
[2020-05-26] MEDS: QUETIAPINE FUMARATE 200 MG TAB PO SCH (21:30)
[2020-05-27] MEDS: ALBUT/IPRATROP 3MG/0.5MG NEB 3 ML VIAL NEB PRN ×4 (02:36→23:15)
--- NOTE | 2020-05-27 04:00 | Billing Data ---
Date of Service May 27, 2020 Coding Level of Care Code 24017 Initial Inpt Care Lvl 3
[2020-05-27] MEDS: LEVOTHYROXINE SODIUM 25 MCG TABLET PO SCH (06:01)
[2020-05-27] MEDS: BUDESONIDE 0.5 MG/2 ML VIAL (PULMICORT) INH SCH ×2 (07:06→19:13)
[2020-05-27] MEDS: FORMOTEROL 20 MCG/2 ML VIAL INH SCH ×2 (07:06→19:13)
[2020-05-27] MEDS: PANTOprazole 40 MG TAB PO SCH ×2 (07:20→20:13)
[2020-05-27] MEDS: METOPROLOL SUCC 25MG EXT REL TAB PO SCH ×2 (07:20→20:14)
[2020-05-27] MEDS: SUCRALFATE 1 GM TAB PO SCH ×4 (07:20→20:11)
[2020-05-27] MEDS: MAGNESIUM OXIDE 400 MG TAB PO SCH ×2 (07:20→20:12)
[2020-05-27] MEDS: predniSONE 20 MG TAB PO SCH (07:22)
[2020-05-27] MEDS: CHOLECALCIFEROL (VITAMIN D) 400 UNITS TABLET PO SCH (07:22)
[2020-05-27] MEDS: ROFLUMILAST 500 MCG TAB PO SCH (07:22)
[2020-05-27] MEDS: FAMOTIDINE 20 MG TAB PO SCH (07:22)
[2020-05-27] MEDS: AZITHROMYCIN 250 MG TAB PO SCH (07:23)
[2020-05-27] MEDS: ESCITALOPRAM OXALATE 10 MG TAB PO SCH (07:23)
[2020-05-27] MEDS: SPIRONOLACTONE 100 MG TAB PO SCH (07:23)
[2020-05-27] MEDS: POTASSIUM CHLORIDE 20 MEQ TABCR PO SCH (07:23)
[2020-05-27] MEDS: THEOPHYLLINE 400 MG EXTENDED REL TAB PO SCH (07:23)
[2020-05-27] MEDS: UMECLIDINIUM BROMIDE 62.5MCG/BLISTER 7 PUFFS/INHALER INH SCH (07:24)
[2020-05-27] MEDS ORDERED: INSULIN HUMAN NPH SC SCH (07:30)
[2020-05-27] MEDS: INSULIN ASPART 100 UNITS/ML 3 ML PEN SC SCH ×4 (08:08→20:17)
--- NOTE | 2020-05-27 10:55 | Pharmacy Report ---
Pharmacy Glycemic Short Note 2 - Date of Service May 27, 2020 - Glycemic Short BSG Results (Last 24 hours): 05/26/20 05/26/20 05/26/20 11:45 16:48 20:12 POC Glucose 156 H 150 H 190 H 05/27/20 07:36 POC Glucose 89 Outpatient Anti-diabetic Regimen: * Lantus 15 units HS * Novolog 12 units TIDM * Metformin * A1c = 9.3% 05/23/20 Risk Factors for Insulin Resistance: * Steroids: Prednisone 40 mg daily * Diet: T2DM ASSESSMENT: 05/27/20: * Mini received 101 units of insulin yesterday with decent glycemic control * 50 units fo basal (NPH + Lantus) * 51 units of novolog * BSGs: 172, 156, 150, 190 mg/dL * She remains on prednisone 40 mg PO daily * Changes to insulin regimen: * Fasting BSG greatly reduced compared to yesterday (172 -> 89 mg/dL). This is despite a 33% reduction in Lantus dose. I will further decrease today. I suspect patient may be able to resume home dose of Lantus since NPH is covering the steroid induced hyperglycemia. * Post prandial BSGs are slightly elevated. I will increase NPH. 05/26/20: * Mini received 106 units of insulin yesterday * 45 units fo basal (NPH + Lantus) * 61 units of novolog * BSGs ranged from 101 - 219 mg/dL * Solumedrol has been discontinued. Last dose given the evening of 05/25. Ordered to start prednisone 40 mg daily this morning. * Changes to insulin regimen: * I will increase NPH dose (~0.3 units/kg) since the peak effects of NPH nicely match those of prednisone * I will loosen Novolog CF/CR since steroids are being tapered * Will also decrease Lantus dose to avoid am hypoglycemia with steroids being tapered 05/25/20 * Pt has received a total of 86 units of insulin over the past 24hrs * 40 units of basal {NPH & Lantus} + 46 units of bolus/prandial/correctional {NovoLog} * BSGs 60-20-671-179-219-156 mg/dl * Solumedrol continues at 40mg IV Q12hrs. Insulin regimen will need tapered with each step down in steroid dosing * Continuing stressed dose of outpatient Lantus for steroid hyperglycemia. Added AM NPH to cover AM dose of Solumedrol. Do not want to overdose Lantus to cover steroids as this would lead to hypo when steroids are rapidly tapered * AM fasting is elevated at 219 mg/dl --> will increase PM dose of Lantus * steroids have their most profound effect on post-prandial hyperglycemia - will tighten CF/CR PLAN FOR INPATIENT GLYCEMIC CONTROL: * Hold outpatient oral diabetes medications * Basal insulin: * Decrease Lantus to 10-15 units SC HS * Increase NPH to 35 units SC qAM (administered with prednisone 40 mg) * Bolus insulin: no change * NovoLog per scale ACHS or Q6hrs while NPO * Goal Range: Low 110 mg/dL - High 140 mg/dL * Correction Factor: 15 mg/dL/unit * Nutritional / Prandial insulin per carb ratio of 1 unit per 5 grams CHO consumed Discharge Recs: * A1c 9.3% (eAG 220) on 05/22, which is up from prior A1c of 7.9% on 12/02/19 * Given PMHx of CHF, most likely could benefit from SGLT-2 with evidence of reducing HF and/or CKD progression. * Was previously taking Metformin but states her provider took her off of this several months ago. Recommend re-initiating this as long as patient can tolerate * Additional insulin titration may be warranted if patient is dc with a steroid taper.
--- NOTE | 2020-05-27 11:27 | Pulmonology Progress Note ---
Date of Service May 27, 2020 Assessment & Plan (1) Chronic respiratory failure with hypoxia: This is a 74-year-old female admitted for shortness of breath. She has multiple admissions over the last 2 years with most of them being at [facility]. She states that she has had progressive shortness of breath with wheezes and is now very short of breath with minimal exertion. She has history of pulmonary embolus from June 2016 treated with Xarelto long- term. She also reports that at one time she had a deep vein thrombosis. We are asked to see the patient in consultation secondary to multiple visits with no continuing of pulmonary care. 05/23/2020 AB.42/49/80 on [address] chest without contrast 05/25/2020 personally reviewed: Severe centrilobular and paraseptal emphysema appreciated. Right apical bulla. Insignificant mediastinal adenopathy. --Acute on chronic hypercapnic hypoxic respiratory failure Secondary to COPD exacerbation Continue with steroids, antibiotics, bronchodilators O2 supplementation to keep O2 saturation between 88-92% BiPAP nightly and PRN shortness of breath Patient is on budesonide, formoterol nebulized at home as well as theophylline and Singulair. Lama inhaler (Incruse) has been added Absolute eosinophil count at presentation was 190. Patient does have history of absolute eosinophil count as high as 1030 back on 12/01/2019 Such patient can be thought of started on Biologics for elevated eosinophil counts as an outpatient. --Obesity Patient likely has VIJAY Will benefit from outpatient polysomnography Continue with BiPAP nightly and PRN --History of pulmonary embolism * No acute concerns * Apparently this imaging was done in 2015 * Patient was apparently on Coumadin but then converted to Xarelto which she currently maintains at 20 mg daily -- Breast cancer * Currently in remission with no adjuvant history * There is a secondary primary as patient had ovarian cancer when she was 21 years old * Chest x-ray without any appearance of lung mass or metastatic nodules * Mammogram scheduled every 6 months. Was scheduled yesterday but was admitted * Continue outpatient follow-up Plan: Continue with prednisone taper. Continue antibiotics for total of 5 days. Patient clinically doing better. She will benefit from follow-up as an outpatient with pulmonary. PFTs as an outpatient. Polysomnography as an outpatient. No further recommendations from pulmonary perspective. Will sign off, recall if needed. Please note the above document was generated using voice recognition software. It may contain grammatical, syntax or spelling errors. (2) Obesity hypoventilation syndrome: (3) Acute on chronic combined systolic (congestive) and diastolic (congestive) heart failure: (4) Breast cancer, right breast: Breast location: unspecified site of breast (5) Pulmonary embolism: (6) COPD (chronic obstructive pulmonary disease): (7) Anemia: Anemia type: unspecified type Qualified Code(s): D64.9 - Anemia, unspecified (8) DVT prophylaxis: Admission and Anticipated Discharge Date Admission Date: May 22, 2020 Subjective Patient seen and examined at bedside. No acute distress, no adverse events overnight. Used BiPAP overnight. Shortness of breath is significantly improved. No headache, no dizziness, no nausea or vomiting. Good appetite. Review of Systems Review of Systems: All systems reviewed & are unremarkable except as noted in Subjective Physical Exam Physical Exam: Constitutional: No acute distress HEENT: EOMI, PERRLA, thick neck, no inspiratory stridor Respiratory system: Decreased air entry bilaterally, minimal expiratory wheeze wheeze appreciated bilaterally, no crackles, no rhonchi CVS: S1-S2 positive, no murmurs or gallops, distant heart sounds Abdomen: Soft, nontender, nondistended, positive bowel sounds x4, obese Extremities: +2 pulses bilaterally radialis/ dorsalis pedis, no cyanosis, no edema Neuro: Awake alert oriented x3 Psych: Normal mood and affect G/U: No Jackson Skin: no rashes, warm and dry Lymphatic: no cervical or axillary lymphadenopathy Results & Data Results & Data ([facility]) Vital Signs (Past 12 Hours) Vital Signs Temp Pulse Pulse Resp BP Pulse Ox 05/27/20 10:13 71 18 96 05/27/20 07:18 59 L 20 130/76 97 05/27/20 07:08 58 L 16 97 05/27/20 04:04 37.2 C 56 L 18 148/84 H 95 05/27/20 02:37 76 18 97 05/27/20 02:36 72 18 97 05/27/20 00:56 72 05/22/20 17:33 05/25/20 05:20 PG Care Time/CCT Total # of Minutes Spent Total Time Spent with Patient: Total time spent is greater than 50% in coordination of care (as documented) at patient's floor/unit and/or counseling patient: Coding Level of Care Code 36081 Subseq Hosp Care Lvl 3 Diagnoses Chronic respiratory failure with hypoxia J96.11 Obesity hypoventilation syndrome E66.2 Acute on chronic combined systolic (congestive) and diastolic (congestive) heart failure I50.43 Breast cancer, right breast C50.911 Breast location: unspecified site of breast Pulmonary embolism I26.99 COPD (chronic obstructive pulmonary disease) J44.9 Anemia D64.9 Anemia type: unspecified type DVT prophylaxis Z29.9
[2020-05-27] MEDS: FERROUS GLUCONATE 324 MG TAB PO SCH (12:12)
--- NOTE | 2020-05-27 15:32 | Hospitalist Progress Note ---
Date of Service May 27, 2020 Assessment & Plan (1) SOB (shortness of breath): Mini Clemons is a 74 year old woman with a past medical history significant for severe COPD and CHF here for COPD exacerbation Acute on Chronic respiratory failure with hypoxia Advanced COPD (No PFT's on record 2L at home), has had about three dozen admissions to hospital in last several years most recently 10 days ago at [facility] where she was discharged on PO steroids but yet has still gotten progressively short of breath. IV methypred tapered to prednisone 40 mg a day, azithromycin changed to p.o. 5 days total treatment, continuing home inhalers duonebs PRN Pulmonology consulted reinforced nocturnal Nippv use concern for elevation of eosinophil count follow-up as an outpatient, will attempt to have trilegy NIPPV Case management consult placed for frequent admissions Lives independently abg overnight does not show significant hypercarbia or hypoxia Ct chest and neck confirms severe COPD no other significant issues Full Code (2) COPD exacerbation: (3) Lower extremity edema: likely based on cor pulmonale (4) Anemia: (5) CHF (congestive heart failure): chronic systolic heart failure, last echo 2018 with EF 45%, did have LHC in 2018 with non occlusive or intervention worthy CAD CXR not showing pulmonary edema, do not believe CHF is major contributor to her current shortness of breath (6) Acid reflux: controlled continues famotidine Admission and Anticipated Discharge Date Admission Date: May 22, 2020 Subjective Patient continues with significant shortness of breath, she thinks she is mildly improved CAT scan not reveal anything except for severe emphysema were trying to get noninvasive positive pressure ventilation for home. She still is pursed lip breathing and tachypneic Review of Systems Review of Systems: Mild distress and fatigue no headache, blurry or double vision no speech or swallowing issues no chest pain, pressure or palpitations Significantly short of breath pursed lip breathing's and deconditioning continues with extreme tachypnea when minor exertion no abdominal pain, nausea or vomiting, diarrhea or constipation no dysuria, hematuria or frequency no focal joint pain or swelling no back pain, CVA tenderness or radicular pain no bruising, bleeding or rashes no focal signs of weakness or numbness or altered sensation no complaints or anxiety or depression. Physical Exam Physical Exam: The patient continues with significantly short of breath, no cough Vital signs as documented. Head exam is normocephalic atraumatic no scleral icterus Neck is without JVD, thyromegaly, or carotid bruits. Lungs are diminished butl decreased at the bases Cardiac exam, Rhythm is regular.. No murmurs, rubs or gallops. Abdominal exam reveals normal bowel sounds, soft non tender, no masses Extremities are mildly edematous and both pedal pulses are normal. Neurologic exam is alert and oriented, no focal loss of strength or sensation Skin is without bruises or rashes Psychologically is without concerns for anxiety or depression. Results & Data Results & Data ([facility]) Vital Signs (Past 12 Hours) Vital Signs Temp Pulse Resp BP Pulse Ox Pulse Ox 05/27/20 14:47 97.5 F L 74 20 156/73 H 94 05/27/20 13:32 95 05/27/20 10:13 71 18 96 05/27/20 07:18 59 L 20 130/76 97 05/27/20 07:08 58 L 16 97 05/27/20 04:04 99.0 F 56 L 18 148/84 H 95 PG Care Time/CCT Total # of Minutes Spent Total Time Spent with Patient: Total time spent is greater than 50% in coordination of care (as documented) at patient's floor/unit and/or counseling patient: Coding Level of Care Code 76375 Subseq Hosp Care Lvl 2 Diagnoses SOB (shortness of breath) R06.02 COPD exacerbation J44.1 Lower extremity edema R60.0 Anemia D64.9 Anemia type: unspecified type CHF (congestive heart failure) I50.9 Acid reflux K21.9 (1) Anemia Anemia type: unspecified type Qualified Code(s): D64.9 - Anemia, unspecified
[2020-05-27] MEDS: RIVAROXABAN 20 MG TAB PO SCH (17:03)
[2020-05-27] MEDS: QUETIAPINE FUMARATE 200 MG TAB PO SCH (20:13)
[2020-05-27] MEDS: MONTELUKAST SODIUM 10 MG TABLET PO SCH (20:13)
[2020-05-27] MEDS: MIRTAZAPINE TAB 15 MG TAB PO SCH (20:13)
[2020-05-27] MEDS: INSULIN GLARGINE SOLOSTAR 100 UNITS/ML 3 ML PEN SC SCH (20:16)
[2020-05-27] MEDS: POLYETHYLENE (MIRALAX) 17 GM PACK PO PRN (21:57)
[2020-05-28] MEDS: ALBUT/IPRATROP 3MG/0.5MG NEB 3 ML VIAL NEB PRN ×3 (03:01→14:29)
[2020-05-28] MEDS: LEVOTHYROXINE SODIUM 25 MCG TABLET PO SCH (05:56)
[2020-05-28 06:53] LABS: Creatinine Clr Calc Pharmacy 50.4 ml/min; Est GFR (African American) 61.6; Est GFR (Non-African American) 53.1
[2020-05-28] MEDS: FORMOTEROL 20 MCG/2 ML VIAL INH SCH (07:09)
[2020-05-28] MEDS: BUDESONIDE 0.5 MG/2 ML VIAL (PULMICORT) INH SCH (07:09)
[2020-05-28] MEDS: POLYETHYLENE (MIRALAX) 17 GM PACK PO PRN (07:48)
[2020-05-28] MEDS: POTASSIUM CHLORIDE 20 MEQ TABCR PO SCH (07:49)
[2020-05-28] MEDS: ESCITALOPRAM OXALATE 10 MG TAB PO SCH (07:49)
[2020-05-28] MEDS: THEOPHYLLINE 400 MG EXTENDED REL TAB PO SCH (07:49)
[2020-05-28] MEDS: predniSONE 20 MG TAB PO SCH (07:49)
[2020-05-28] MEDS: METOPROLOL SUCC 25MG EXT REL TAB PO SCH (07:49)
[2020-05-28] MEDS: SPIRONOLACTONE 100 MG TAB PO SCH (07:50)
[2020-05-28] MEDS: ROFLUMILAST 500 MCG TAB PO SCH (07:50)
[2020-05-28] MEDS: AZITHROMYCIN 250 MG TAB PO SCH (07:50)
[2020-05-28] MEDS: PANTOprazole 40 MG TAB PO SCH (07:50)
[2020-05-28] MEDS: CHOLECALCIFEROL (VITAMIN D) 400 UNITS TABLET PO SCH (07:50)
[2020-05-28] MEDS: FAMOTIDINE 20 MG TAB PO SCH (07:50)
[2020-05-28] MEDS: SUCRALFATE 1 GM TAB PO SCH ×2 (07:51→12:14)
[2020-05-28] MEDS: UMECLIDINIUM BROMIDE 62.5MCG/BLISTER 7 PUFFS/INHALER INH SCH (07:51)
[2020-05-28] MEDS: MAGNESIUM OXIDE 400 MG TAB PO SCH (07:51)
[2020-05-28] MEDS: INSULIN ASPART 100 UNITS/ML 3 ML PEN SC SCH ×2 (08:21→12:13)
--- NOTE | 2020-05-28 08:34 | Pharmacy Report ---
Pharmacy Glycemic Short Note 2 - Date of Service May 28, 2020 - Glycemic Short BSG Results (Last 24 hours): 05/27/20 05/27/20 05/27/20 11:38 16:40 19:49 POC Glucose 189 H 183 H 208 H 05/28/20 05/28/20 05/28/20 07:45 07:46 08:02 POC Glucose 67 L* 62 L* 86 Outpatient Anti-diabetic Regimen: * Lantus 15 units HS * Novolog 12 units TIDM * Metformin * A1c = 9.3% 05/23/20 Risk Factors for Insulin Resistance: * Steroids: Prednisone 40 mg daily * Diet: T2DM ASSESSMENT: 05/28/20: * BSGs decently controlled yesterday (89, 189, 183, and 208 mg/dL) * 50 units of basal, 47 units of prandial/correctional insulin for 97 units total * Will tighten carb coverage today * She remains on prednisone 40 mg PO daily * Covered with 35 units of NPH * Fasting BSG of 62 mg/dL today - will decrease NPH and HS Lantus 05/25/20 * Pt has received a total of 86 units of insulin over the past 24hrs * 40 units of basal {NPH & Lantus} + 46 units of bolus/prandial/correctional {NovoLog} * BSGs [id number] mg/dl * Solumedrol continues at 40mg IV Q12hrs. Insulin regimen will need tapered with each step down in steroid dosing * Continuing stressed dose of outpatient Lantus for steroid hyperglycemia. Added AM NPH to cover AM dose of Solumedrol. Do not want to overdose Lantus to cover steroids as this would lead to hypo when steroids are rapidly tapered * AM fasting is elevated at 219 mg/dl --> will increase PM dose of Lantus * steroids have their most profound effect on post-prandial hyperglycemia - will tighten CF/CR PLAN FOR INPATIENT GLYCEMIC CONTROL: * Hold outpatient oral diabetes medications * Basal insulin: decrease * Decrease Lantus HS - 0-5 units based on BSG (see EHR for details) * decrease NPH to 30 units SC qAM (administered with prednisone 40 mg) * Bolus insulin: tighten * NovoLog per scale ACHS or Q6hrs while NPO * Goal Range: Low 110 mg/dL - High 140 mg/dL * Correction Factor: 12 mg/dL/unit * Nutritional / Prandial insulin per carb ratio of 1 unit per 4 grams CHO consumed Discharge Recs: * A1c 9.3% (eAG 220) on 05/22, which is up from prior A1c of 7.9% on 12/02/19 * Given PMHx of CHF, most likely could benefit from SGLT-2 with evidence of reducing HF and/or CKD progression. * Was previously taking Metformin but states her provider took her off of this several months ago. Recommend re-initiating this as long as patient can tolerate * Additional insulin titration may be warranted if patient is dc with a steroid taper.
[2020-05-28] MEDS ORDERED: INSULIN HUMAN NPH SC SCH ×2 (09:00)
--- NOTE | 2020-05-28 11:37 | Hospitalist Progress Note ---
Date of Service May 28, 2020 Assessment & Plan (1) Chronic respiratory failure with hypoxia: Due to chronic respiratory failure consequent to COPD, patient now requires a Non-Invasive Home Ventilator. Bi-Level Therapy with and without a rate would be ineffective as patient requires a volume targeted mode. Ventilation is required to decrease the work of breathing and improve pulmonary status. Interruption of ventilator support would lead to decline of health status. (2) SOB (shortness of breath): Mini Clemons is a 74 year old woman with a past medical history significant for severe COPD and CHF here for COPD exacerbation Acute on Chronic respiratory failure with hypoxia due to COPD exacerbation dyspnea is much improved since admission (3) COPD exacerbation: improved with Solu Medrol, now on Prednisone plan for taper on discharge complete 5 days of antibiotics continue inhaled therapy (4) Lower extremity edema: likely based on cor pulmonale improved today (5) Anemia: (6) CHF (congestive heart failure): chronic systolic heart failure, last echo 2018 with EF 45%, did have LHC in 2018 with non occlusive or intervention worthy CAD CXR not showing pulmonary edema, do not believe CHF is major contributor to her current shortness of breath (7) Acid reflux: controlled continues famotidine Admission and Anticipated Discharge Date Admission Date: May 22, 2020 Subjective patient doing better, hoping to go home today with trilogy Review of Systems Review of Systems: All systems reviewed & are unremarkable except as noted in Subjective Respiratory: + dyspnea on exertion Physical Exam Constitutional: WD/WN, vitals as above Eyes: PERRL, conjunctivae normal, anicteric sclerae ENMT: external ear and nose normal, oropharynx normal Neck: trachea midline, no thyromegaly Respiratory: normal respiratory effort and + cough; no respiratory distress Auscultation: + diminished lung sounds and + wheezes (faint, bilateral end expiratory); no crackles, no rales and no rhonchi Cardiovascular: RRR, no murmur, no edema Gastrointestinal (Abdomen): normal bowel sounds, soft, nontender, no hepatosplenomegaly Musculoskeletal: no cyanosis or clubbing, extremities motor strength 5/5 Skin: no rashes, warm and dry Neurologic: patellar DTR's 2+ bilat, sensation intact and PERRL, EOMI, accommodation nl, no face palsy, no dysarthria Psychiatric: A+Ox3, euthymic affect Lymphatic: no cervical or axillary lymphadenopathy Results & Data Results & Data ([facility]) Vital Signs (Past 12 Hours) Vital Signs Temp Pulse Pulse Resp BP Pulse Ox 05/28/20 11:12 66 18 94 05/28/20 11:08 66 20 149/71 H 96 05/28/20 09:02 53 L 05/28/20 07:12 36.8 C 56 L 18 138/70 98 05/28/20 03:05 57 L 24 97 05/28/20 03:03 57 L 24 97 05/28/20 02:59 36.5 C 65 20 164/79 H 94 05/28/20 00:57 64 Laboratory Results Laboratory Results - last 24 hr 05/27/20 05/27/20 05/27/20 11:38 16:40 19:49 Creatinine Est Cr Clr Drug Dosing Est GFR ( Amer) Est GFR (Non-Af Amer) POC Glucose 189 H 183 H 208 H 05/28/20 05/28/20 05/28/20 05:36 07:45 07:46 Creatinine 1.03 Est Cr Clr Drug Dosing 50.4 Est GFR ( Amer) 61.6 Est GFR (Non-Af Amer) 53.1 POC Glucose 67 L* 62 L* 05/28/20 08:02 Creatinine Est Cr Clr Drug Dosing Est GFR ( Amer) Est GFR (Non-Af Amer) POC Glucose 86 Medications Administered Current Inpatient Medications Acetaminophen (Acetaminophen 325 Mg Tab) 650 mg PO Q4H PRN PRN Reason: Pain or Fever Stop: 06/21/20 21:19 Albuterol (Albut/Ipratrop 3mg/0.5mg Neb 3 Ml Vial) 3 ml NEB Q2H PRN PRN Reason: Shortness of Breath/Wheezing Stop: 06/21/20 21:19 Last Admin: 05/28/20 11:10 Dose: 3 ml Documented by: Azithromycin (Azithromycin 250 Mg Tab) 250 mg PO QAM [facility] Stop: 05/29/20 09:01 Last Admin: 05/28/20 07:50 Dose: 250 mg Documented by: Budesonide (Budesonide 0.5 Mg/2 Ml Vial (Pulmicort)) 0.5 mg INH BIDR [facility] Stop: 06/21/20 21:19 Last Admin: 05/28/20 07:09 Dose: 0.5 mg Documented by: Dextrose (Dextrose 50% 50 Ml Syringe) 25 - 50 ml IV UD PRN; Protocol PRN Reason: Hypoglycemia Protocol Stop: 06/21/20 21:19 Escitalopram Oxalate ([facility]italopram Oxal[facility] 10 Mg Tab) [facility] Stop: 06/22/20 08:59 Last Admin: 05/28/20 07:49 Dose: 15 mg Documented by: Famotidine (Famotidine 20 Mg Tab) 20 mg PO QAM [facility] Stop: 06/22/20 08:59 Last Admin: 05/28/20 07:50 Dose: 20 mg Documented by: Ferrous Gluconate (Ferrous Gluconate 324 Mg Tab) 324 mg PO DAILY@1200 [facility] Stop: 06/22/20 11:59 Last Admin: 05/27/20 12:12 Dose: 324 mg Documented by: Formoterol Fumarate (Formoterol 20 Mcg/2 Ml Vial) 20 mcg INH BIDR [facility] Stop: 06/21/20 21:19 Last Admin: 05/28/20 07:09 Dose: 20 mcg Documented by: Glucagon (Glucagon For Inj 1 Mg Vial) 1 mg SQ UD PRN; Protocol PRN Reason: Hypoglycemia Protocol Stop: 06/21/20 21:19 Glucose (Glucose 10 Tabs/Tube) 4 - 8 tabs PO UD PRN; Protocol PRN Reason: Hypoglycemia Protocol Stop: 06/21/20 21:19 Glucose (Glucose 40% Gel 15 Gm Tube) 15 - 30 gm PO UD PRN; Protocol PRN Reason: Hypoglycemia Protocol Stop: 06/21/20 21:19 Insulin Aspart (Insulin Aspart 100 Units/Ml 3 Ml Pen) 0 units SC ACHS [facility]; Protocol Stop: 06/21/20 21:44 Last Admin: 05/28/20 08:21 Dose: 11 units Documented by: Insulin Human NPH (Insulin Human Nph) 30 units SC DAILY@0900 [facility]; Protocol Stop: 06/26/20 07:29 Last Admin: 05/28/20 08:23 Dose: 30 units Documented by: Levothyroxine Sodium (Levothyroxine Sodium 25 Mcg Tablet) 25 mcg PO DAILYBB [facility] Stop: 06/22/20 06:29 Last Admin: 05/28/20 05:56 Dose: 25 mcg Documented by: Magnesium Oxide (Magnesium Oxide 400 Mg Tab) 400 mg PO BID [facility] Stop: 06/21/20 21:19 Last Admin: 05/28/20 07:51 Dose: 400 mg Documented by: Menthol (Cough Drop (Sugar Free) Kena 24 Kena/1 Box) 1 kena BUCCAL PRN PRN PRN Reason: Sore Throat Stop: 06/22/20 15:24 Last Admin: 05/26/20 17:36 Dose: 1 kena Documented by: Metoprolol Succinate (Metoprolol Succ 25mg Ext Rel Tab) 25 mg PO BID [facility] Stop: 06/21/20 21:19 Last Admin: 05/28/20 07:49 Dose: 25 mg Documented by: Mirtazapine (Mirtazapine Tab 15 Mg Tab) 30 mg PO HS [facility] Stop: 06/21/20 21:19 Last Admin: 05/27/20 20:13 Dose: 30 mg Documented by: Miscellaneous (Carbohydrates For Hypoglycemia ) 15 - 30 gm PO UD PRN PRN Reason: Hypoglycemia Protocol Stop: 06/21/20 21:19 Last Admin: 05/28/20 07:48 Dose: 15 gm Documented by: Miscellaneous Information (Pharmacy Glycemic Mgmt Consult) 1 ea N/A UD PRN PRN Reason: Consult Stop: 06/21/20 21:41 Montelukast Sodium (Montelukast Sodium 10 Mg Tablet) 10 mg PO HS [facility] Stop: 06/21/20 21:19 Last Admin: 05/27/20 20:13 Dose: 10 mg Documented by: Ondansetron HCl (Ondansetron Inj 2 Mg/Ml 2 Ml Vial) 4 mg IV Q6H PRN PRN Reason: Nausea Stop: 06/21/20 21:19 Pantoprazole Sodium (Pantoprazole 40 Mg Tab) 40 mg PO BID [facility] Stop: 06/21/20 21:19 Last Admin: 05/28/20 07:50 Dose: 40 mg Documented by: Polyethylene Glycol (Polyethylene (Miralax) 17 Gm Pack) 17 gm PO DAILY PRN PRN Reason: Constipation Stop: 06/21/20 21:19 Last Admin: 05/28/20 07:48 Dose: 17 gm Documented by: Potassium Chloride (Potassium Chloride 20 Meq Tabcr) 20 meq PO QAM [facility] Stop: 06/22/20 08:59 Last Admin: 05/28/20 07:49 Dose: 20 meq Documented by: Prednisone (Prednisone 20 Mg Tab) 40 mg PO DAILY [facility] Stop: 06/25/20 08:59 Last Admin: 05/28/20 07:49 Dose: 40 mg Documented by: Quetiapine Fumarate (Quetiapine Fumarate 200 Mg Tab) 200 mg PO HS [facility] Stop: 06/21/20 21:19 Last Admin: 05/27/20 20:13 Dose: 200 mg Documented by: Rivaroxaban (Rivaroxaban 20 Mg Tab) 20 mg PO QDD [facility] Stop: 06/22/20 16:29 Last Admin: 05/27/20 17:03 Dose: 20 mg Documented by: Roflumilast (Roflumilast 500 Mcg Tab) 500 mcg PO QAM [facility] Stop: 06/22/20 08:59 Last Admin: 05/28/20 07:50 Dose: 500 mcg Documented by: Spironolactone (Spironolactone 100 Mg Tab) 100 mg PO QAM [facility] Stop: 06/22/20 08:59 Last Admin: 05/28/20 07:50 Dose: 100 mg Documented by: Sucralfate (Sucralfate 1 Gm Tab) 1 gm PO ACHS [facility] Stop: 06/21/20 21:19 Last Admin: 05/28/20 07:51 Dose: 1 gm Documented by: Theophylline (Theophylline 400 Mg Extended Rel Tab) 400 mg PO QAM [facility] Stop: 06/22/20 08:59 Last Admin: 05/28/20 07:49 Dose: 400 mg Documented by: Umeclidinium [place] (Umeclidinium [place] 62.5mcg/Blister 7 Puffs/Inhaler) 1 puffs INH DAILY [facility] Stop: 06/23/20 08:59 Last Admin: 05/28/20 07:51 Dose: 1 puffs Documented by: Vitamin D (Cholecalciferol (Vitamin D) 400 Units Tablet) 400 units PO QAM [facility] Stop: 06/22/20 08:59 Last Admin: 05/28/20 07:50 Dose: 400 units Documented by: PG Care Time/CCT Total # of Minutes Spent Total Time Spent with Patient: Total time spent is greater than 50% in coordination of care (as documented) at patient's floor/unit and/or counseling patient: Coding Level of Care Code 11993 Subseq Hosp Care Lvl 2 Diagnoses Chronic respiratory failure with hypoxia J96.11 SOB (shortness of breath) R06.02 COPD exacerbation J44.1 Lower extremity edema R60.0 Anemia D64.9 Anemia type: unspecified type CHF (congestive heart failure) I50.9 Acid reflux K21.9 (1) Anemia Anemia type: unspecified type Qualified Code(s): D64.9 - Anemia, unspecified
[2020-05-28] MEDS: COUGH DROP (SUGAR FREE) LOZ 24 LOZ/1 BOX BUCCAL PRN (12:13)
[2020-05-28] MEDS: FERROUS GLUCONATE 324 MG TAB PO SCH (12:14)
--- NOTE | 2020-05-28 14:10 | Discharge Summary ---
Date of Service May 28, 2020 Admission HPI Per Admitting Provider Mini Clemons is a 74 year old woman with a history of severe COPD CHF, pulmonary embolism who is been admitted dozens of times over the last several years to both [facility] and [facility]. Most recently she was admitted at [facility] about 10 days ago. Since that time she is continuously felt short of breath and it has become more and more severe each day. Today she felt like she could not even get herself dressed and ready. So she called EMS who came to evaluate her. Of note patient does live alone and uses a life alert to call EMS. When EMS found her she was working very hard to breathe pulse ox in the 70s on 2 L which is her baseline oxygen requirement. Patient was brought in by ambulance given a breathing treatment and respiratory symptoms rapidly improved. Currently she feels about at her baseline in terms of breathing, she tells me that she takes all of her medications as prescribedincluding Brovana budesonide Daliresp and montelukast as well as finishing her steroid taper from her previous hospitalization. She is very concerned that she is lasting such a short period of time out of the hospital before she gets sick again. She also endorses a cough and some reproducible chest pain across the front of her chest exacerbated by cough. She denies any other symptoms specifically she denies fevers chills shortness of breath, any sick contacts, GI symptoms, urinary symptoms, she endorses her usual mild leg swelling but says that this is not gotten any worse she sleeps upright secondary to her CHF, no changes to the angle which she is able to sleep comfortably. She is in close her baseline now denies interview goes on she is becoming more more short of breath and request of breathing treatment. She does not smoke anymore though she does have a 91-47-hpxy-year smoking history, quit 8 years ago, she does not use marijuana or any other inhaled drugs she does not use any illicit drugs, she does not drink alcohol. She is a full code. Principal Diagnosis COPD exacerbation Discharge Exam Constitutional WD/WN, vitals as above Eyes PERRL, conjunctivae normal, anicteric sclerae ENMT external ear and nose normal, oropharynx normal Neck trachea midline, no thyromegaly Respiratory normal respiratory effort and + cough; no respiratory distress Auscultation: + diminished lung sounds and + wheezes (faint, bilateral end expiratory); no crackles, no rales and no rhonchi Cardiovascular RRR, no murmur, no edema Gastrointestinal (Abdomen) normal bowel sounds, soft, nontender, no hepatosplenomegaly Musculoskeletal no cyanosis or clubbing, extremities motor strength 5/5 Skin no rashes, warm and dry Neurologic patellar DTR's 2+ bilat, sensation intact and PERRL, EOMI, accommodation nl, no face palsy, no dysarthria Psychiatric A+Ox3, euthymic affect Lymphatic no cervical or axillary lymphadenopathy Discharge Data Allergies Allergy/AdvReac Type Severity Reaction Status Date / Time rabies vaccine, duck-embryo Allergy Severe HIVES Verified 05/22/20 19:23 ragweed pollen Allergy Unknown UNKNOWN Verified 05/22/20 19:23 tomato Allergy Unknown HIVES Verified 05/22/20 19:23 Consultations 05/22/20 19:04 ED Decision to Admit Stat 05/22/20 21:20 Consult Case Management - Discharge Planning Routine Consult Pulmonology Routine Ordered Studies 05/25/20 16:05 CT chest wo con Routine 05/25/20 16:06 CT soft tissue neck wo con Routine Diabetes Follow up Diabetes Follow-up Needed for HgbA1c >9% Hospital Course (1) Chronic respiratory failure with hypoxia: Due to chronic respiratory failure consequent to COPD, patient now requires a Non-Invasive Home Ventilator. Bi-Level Therapy with and without a rate would be ineffective as patient requires a volume targeted mode. Jas tilation is required to decrease the work of breathing and improve pulmonary status. Interruption of ventilator support would lead to decline of health status. 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 (4) Lower extremity edema: likely based on cor pulmonale improved since admission (5) Anemia: (6) CHF (congestive heart failure): chronic systolic heart failure, last echo 2018 with EF 45%, did have LHC in 2018 with non occlusive or intervention worthy CAD CXR not showing pulmonary edema, do not believe CHF is major contributor to her current shortness of breath (7) Acid reflux: controlled continues famotidine Total Time Total Time Spent Total Time Spent (In Minutes): 32 Total Time Includes: Examination of the Patient, Discharge Planning and Medication Reconciliation Discharge Plan Discharge Items Patient Disposition: Home - Home Health Services Reason For Visit: COPD EXACERBATION Discharge Diagnosis: COPD exacerbation Acute on chronic hypoxic respiratory failure with hypoxia Condition on Discharge: Good Goals: complete prednisone taper follow up with pulmonology/COPD clinic Activity: Resume your previous activity Lifting: None Bathing: No limitations Weightbearing: Full weightbearing Non-emergency contact: Primary Care Provider and Biogeographer Call non-emergency contact if: you have any medication questions and your symptoms worsen Follow-up/Referrals: Brian Armendariz MD [Physician] - (2-3 weeks) Anil Rodriguez [Primary Care Provider] - 06/07/20 9:00 am (You have an appt with Dr Sandy Jun 07 at 9am. Please arrive 15 minutes prior to your appt. Remember to bring your face mask. It is important that you see your primary care provider in a follow up to your admission, if this appt does not fit your schedule, please call [phone] and reschedule. ) Diet: Carb Consistent or DM2 Addtl Attending Provider Instructions: Medications: - PREDNISONE: complete taper over next 12 days, starting tomorrow, take 40mg (4 tablets) daily x 3 days, then 30mg daily x 3 days, then 20mg x 3 days then 10mg x 3 days - NPH INSULIN: this you will take in morning as it helps offset the hyperglycemic effects from Prednisone only need to take for the next 6 days starting tomorrow, take 30 units in the morning with the Prednisone 40mg, take this on 05/29, 05/30 and 05/31 take 20 units in the morning with the Prednisone 30mg, take this on 06/01, 06/02 and 06/03 COPD exacerbation: improved with IV steroids and antibiotics will complete a course of Prednisone, no further antibiotics needed set up to receive a Trilogy machine at home to help with breathing at night time use this every night as it will help with oxygenation, prevent hospitalizations follow up closely with pulmonology, we are working on setting up an appointment Pending Studies at Discharge: No Stand-Alone Forms: My [facility], Smoking Cessation Medications and DC Order Prescriptions: New prednisone 10 mg tablet 40 mg PO UD 12 Days Qty: 30 RF: 0 Continued budesonide 0.5 mg/2 mL suspension for nebulization 0.5 mg inhalation BID RF: 0 Brovana 15 mcg/2 mL solution for nebulization 15 mcg INHALATION BID RF: 0 Lantus Solostar U-100 Insulin 100 unit/mL (3 mL) insulin pen 15 unit subcut DAILY@2100 RF: 0 ferrous gluconate 324 mg (38 mg iron) Tablet 324 mg PO DAILY@0730 Qty: 30 RF: 1 insulin lispro [Humalog KwikPen Insulin] 100 unit/mL insulin pen 12 unit SUBCUT TIDM RF: 0 sucralfate 1 gram Tablet 1 g PO ACHS RF: 0 quetiapine 200 mg Tablet 200 mg PO HS RF: 0 levothyroxine 25 mcg Tablet 25 mcg PO QAM RF: 0 potassium chloride 20 mEq Tablet,Er Particles/Crystals 20 meq PO QAM RF: 0 famotidine 20 mg Tablet 20 mg PO QAM RF: 0 pantoprazole 40 mg Tablet,Delayed Release (Dr/Ec) 40 mg PO BID RF: 0 mirtazapine 30 mg tablet 30 mg PO HS RF: 0 montelukast 10 mg Tablet 10 mg PO HS RF: 0 metformin 500 mg Tablet Extended Release 24 Hr 500 mg PO BID RF: 0 cholecalciferol (vitamin D3) [Vitamin D3] 400 unit tablet 400 unit PO QAM RF: 0 Rohit-24 400 mg Capsule,Extended Release 24hr 400 mg PO QAM RF: 0 spironolactone 50 mg Tablet 100 mg PO QAM RF: 0 escitalopram oxalate 10 mg Tablet 15 mg PO QAM RF: 0 Daliresp 500 mcg Tablet 500 mcg PO QAM RF: 0 Xarelto 20 mg Tablet 20 mg PO QAM RF: 0 metoprolol succinate 25 mg Capsule,Sprinkle,Er 24hr 25 mg PO BID RF: 0 magnesium oxide 400 mg magnesium Tablet 400 mg PO BID RF: 0 Discharge Orders: Discharge Order (Routine); Ordered 05/28/20 Ordered By: Jonatan Nj Admission Data Admit Date/Time: 05/22/20 20:05 Attending Provider: Jonatan Nj Admit Provider: Emre Lopez Primary Care Provider: Anil Rodriguez Other Providers: David Norris ; Brian Armendariz Other Interventions: Discharge Summary Assessment (RN) Last Done: 05/28/20 14:14 Coding Level of Care Code D/C Day Management >30 mins Diagnoses Chronic respiratory failure with hypoxia J96.11 SOB (shortness of breath) R06.02 COPD exacerbation J44.1 Lower extremity edema R60.0 Anemia D64.9 Anemia type: unspecified type CHF (congestive heart failure) I50.9 Acid reflux K21.9
[2020-05-28] MEDS ORDERED: INSULIN GLARGINE SOLOSTAR 100 UNITS/ML 3 ML PEN SC SCH (21:00)
== END 2020-05-28 15:06 | disposition home health service (06) | DRG 190 ==
LOC: ED 17:00 → SUATTDRO 20:05 → 2N 20:05

== ENCOUNTER 2021-02-27 22:05 | Inpatient (IN) ==
[2021-02-27] MEDS ORDERED: ALBUT/IPRATROP 3MG/0.5MG NEB 3 ML VIAL NEB STA ×2 (22:13→23:27)
[2021-02-27] MEDS ORDERED: ASPIRIN CHEW 324 MG PO STA (22:13)
[2021-02-27] MEDS ORDERED: predniSONE 50 MG TAB PO STA (22:13)
[2021-02-27 22:50] LABS: Hematocrit (blood only) 33.1 % (37-47); Hemoglobin 10.1 g/dL (12.0-16.0); Mean Corpuscular Hemoglobin 23.3 pg (25-34); Mean Corpuscular Hgb Conc 30.5 g/dL (32-36); Mean Corpuscular Volume 76.3 fL (80-100); Mean Platelet Volume 8.7 fL (7.4-10.4); Platelet Count 263 K/uL (130-400); RDW Coefficient of Variation 16.5 % (11.5-14.5); RDW Standard Deviation 46.5 fL (36.4-46.3); Red Blood Count 4.34 M/uL (4.2-5.4); White Blood Count 6.53 K/uL (4.8-10.8)
[2021-02-27 22:54] LABS: Base Excess VBG 5.8 mEq/L; Oxygen Saturation VBG 95.8 %; pH VBG 7.47 (7.36-7.41)
[2021-02-27 23:14] LABS: BUN Creatinine Ratio 17.6 (10-20); Blood Urea Nitrogen 17 mg/dl (7-18); Calcium 8.7 mg/dl (8.5-10.1); Carbon Dioxide 30 mmol/L (21-32); Chloride 98 mmol/L (98-107); Creatinine Clr Calc Pharmacy 54.9 ml/min; Est GFR (African American) 68.3 ml/min; Est GFR (Non-African American) 58.9 ml/min; Glucose 179 mg/dl (70-99); Magnesium 1.7 mg/dl (1.8-2.4); Potassium 3.2 mmol/L (3.5-5.1); Sodium 135 mmol/L (136-145)
[2021-02-27 23:18] LABS: NT Pro B Type Natriuretic Pept 118 pg/ml (0-1800); Troponin I < 0.015 ng/ml (0-0.045)
[2021-02-27 23:32] LABS: Basophils # (auto) 0.01 K/uL (0-0.2); Basophils % (auto) 0.2 %; Eosinophils # (auto) 0.04 K/uL (0-0.5); Eosinophils % (auto) 0.6 %; Immature Granulocytes # (auto) 0.01 K/uL (0.00-0.02); Immature Granulocytes % (auto) 0.2 %; Lymphocytes # (auto) 0.79 K/uL (1.2-3.4); Lymphocytes % (auto) 12.1 %; Monocytes # (auto) 0.61 K/uL (0.11-0.59); Monocytes % (auto) 9.3 %; Neutrophils # (auto) 5.07 K/uL (1.4-6.5); Neutrophils % (auto) 77.6 %; Ovalocytes 1+
--- NOTE | 2021-02-28 00:45 | History & Physical Report ---
Date of Service February 28, 2021 Assessment & Plan (1) COPD exacerbation: Mini Clemons is a 75-year-old female with past medical history significant for hypertension, pulmonary embolism on chronic anticoagulation, COPD, CHF; who presents for concerns of abdominal pain and shortness of breath over the last several days. COPD exacerbation: -Potentially as a result of COVID-19 infection -CT chest demonstrating signs of COPD exacerbation versus pneumonia -Pro-Jean Claude negative -Received multiple rounds of duo nebs in ED with no resolution of symptoms -On chronic oxygen at home (2 L nasal cannula) -Continue home inhaler regimen -Continue nebs as needed -Started Solu-Medrol 40 mg daily -Zithromax 500 given in ED given concern for COPD exacerbation -Will not continue dosing at this time given COVID-19 infection Abdominal pain: -Uncertain etiology of abdominal pain -CT abdomen pelvis demonstrating severe diverticulosis of the sigmoid colon; however, no acute inflammatory changes -Continue to monitor at this time -Continue home Pepcid, Protonix, and Carafate History of pulmonary embolism: -Chronically on Xarelto -Additionally has IVC filter in place -Continue Xarelto while inpatient Hypertension: -Continue home antihypertensive regimen Hypothyroidism: -Continue home Synthroid Diet: Regular CODE STATUS: Full code DVT ppx: Continue home Xarelto (2) COVID-19: (3) Abdominal pain: History of Present Illness Primary Care Provider: Anil Rodriguez Mini Clemons is a 75-year-old female with past medical history significant for hypertension, pulmonary embolism on chronic anticoagulation, COPD, CHF; who presents for concerns of abdominal pain and shortness of breath over the last several days. Patient has been having ongoing intermittent abdominal pain over the last several weeks, however over the last 2 to 3 days she has been unable to tolerate food or liquid, and has had increasing shortness of breath despite her inhaler regimen. As this became increasingly more difficult, she decided tonight that she needed to be seen in the hospital. Of note she did receive one of the 2 doses of her COVID-19 vaccination. In the ED received multiple rounds of albuterol nebs with no improvement in her symptoms. Continuing to endorse right-sided abdominal pain/flank tenderness. Endorses nausea, and changes in bowel movements. Denies chest pain, palpitations, loss of consciousness, dizziness, lightheadedness, or vomiting. Allergies Allergy/AdvReac Type Severity Reaction Status Date / Time rabies vaccine, duck-embryo Allergy Severe HIVES Verified 02/27/21 23:12 ragweed pollen Allergy Unknown UNKNOWN Verified 02/27/21 23:12 tomato Allergy Unknown HIVES Verified 02/27/21 23:12 Home Medications Medication Instructions Recorded Confirmed Type Xarelto 20 mg PO QAM 02/10/19 02/27/21 History escitalopram oxalate 15 mg PO QAM 02/10/19 02/27/21 History famotidine 20 mg PO QAM 02/10/19 02/27/21 History levothyroxine 25 mcg PO QAM 02/10/19 02/27/21 History metformin 500 mg PO BID 02/10/19 02/27/21 History metoprolol succinate 25 mg PO BID 02/10/19 02/27/21 History mirtazapine 30 mg PO HS 02/10/19 02/27/21 History pantoprazole 40 mg PO BID 02/10/19 02/27/21 History potassium chloride 20 meq PO QAM 02/10/19 02/27/21 History quetiapine 200 mg PO HS 02/10/19 02/27/21 History spironolactone 100 mg PO QAM 02/10/19 02/27/21 History sucralfate 1 g PO ACHS 02/10/19 02/27/21 History magnesium oxide 400 mg PO BID 02/20/19 02/27/21 History Lantus Solostar U-100 Insulin 15 unit SUBCUT DAILY@2100 12/01/19 02/27/21 History insulin lispro [Humalog KwikPen 12 unit SUBCUT TIDM 05/22/20 02/27/21 History Insulin] albuterol sulfate 90 mcg/actuation 2 puff INHALATION Q6H PRN #18 g 06/05/20 02/27/21 Rx aerosol inhaler 21cen Vit-D [place] 400iu Chew 1 tab PO DAILY 02/27/21 02/27/21 History albuterol sulfate 2.5 mg INHALATION Q4 PRN 02/27/21 02/27/21 History budesonide 0.5 mg INHALATION BID 02/27/21 02/27/21 History furosemide 20 mg PO DAILY 02/27/21 02/27/21 History montelukast 10 mg PO DAILY 02/27/21 02/27/21 History polysaccharide iron complex 150 mg PO BID 02/27/21 02/27/21 History [Poly-Iron] roflumilast [Daliresp] 500 mcg PO DAILY 02/27/21 02/27/21 History theophylline [Rohit-24] 400 mg PO DAILY 02/27/21 02/27/21 History Past Med/Surg History Medical History (Updated 03/01/21 @ 00:04 by Ron Smith) Acute on chronic combined systolic (congestive) and diastolic (congestive) heart failure Acute respiratory failure with hypoxia Breast cancer, right breast CHF (congestive heart failure) COPD (chronic obstructive pulmonary disease) COPD exacerbation Diabetes Elevated troponin Endocarditis KATHLEEN (generalized anxiety disorder) GERD (gastroesophageal reflux disease) GI bleed Hypoxia Major depression, recurrent, full remission MSSA (methicillin susceptible Staphylococcus aureus) septicemia Nausea & vomiting Obesity hypoventilation syndrome QT prolongation Septic thrombophlebitis Spinal abscess Syncope Vomiting and diarrhea Surgical History History of lumpectomy Family History Other Coronary heart disease Stroke Social History Smoking Status: Former smoker Second Hand Exposure: No; Do You Dip or Chew Tobacco: No; Tobacco Cessation Education Requested by Patient: No Hx Alcohol Use: No Hx Substance Use: No Preferred Language: Congolese Communication Ability: Effective Dictaphone Typist Required: No Beliefs That Will Affect Care: None marital status: Single Current Living Situation: Alone Current Living Situation Comment: with caregiver current occupational status: retired How many Children do You have: 0 Other Information That Helps Us Care for You: No Feels Safe at Home: Yes Safety Concerns: Feels Safe At This Time Assistive Devices: Oxygen - Continuous Review of Systems Review of Systems: All systems reviewed & are unremarkable except as noted in HPI & below Physical Exam Constitutional: WD/WN, vitals as above Eyes: PERRL, conjunctivae normal, anicteric sclerae Respiratory: normal respiratory effort and + labored breathing; no respiratory distress Auscultation: + rhonchi and + wheezes; no crackles and no rales Cardiovascular: Rate/Rhythm: regular rate and regular rhythm Heart Sounds: no gallop, no murmur and no cardiac rub Vessels: normal peripheral pulses; no JVD Extremities: no edema Gastrointestinal (Abdomen): Inspection/Auscultation: normal bowel sounds; abdomen not distended Percussion/Palpation: + abdomen tender (Right flank) and abdomen soft; no guarding Musculoskeletal: no cyanosis or clubbing, extremities motor strength 5/5 Skin: no rashes, warm and dry Neurologic: PERRL, EOMI, accommodation nl, no face palsy, no dysarthria CN's II-XI intact bilaterally and moves all extremities Psychiatric: Orientation: alert and oriented x 3 Results & Data Results & Data ([facility]) Vital Signs (Past 12 Hours) Vital Signs Temp Pulse Pulse Resp BP Pulse Ox 02/28/21 00:01 88 18 130/74 94 02/28/21 00:00 83 17 94 02/27/21 23:49 78 18 94 02/27/21 23:30 82 19 95 02/27/21 23:00 79 20 99 02/27/21 22:58 78 20 95 02/27/21 22:32 82 23 95 02/27/21 22:10 37.1 C 87 24 161/73 H 95 Laboratory Results 02/27/21 02/27/21 02/27/21 Range/Units 23:44 23:44 22:41 WBC (4.8-10.8) K/uL RBC (4.2-5.4) M/uL Hgb (12.0-16.0) g/dL Hct (37-47) % MCV (80-100) fL MCH (25-34) pg MCHC (32-36) g/dL RDW Std Deviation (36.4-46.3) fL RDW Coeff of Jame (11.5-14.5) % Plt Count (130-400) K/uL MPV (7.4-10.4) fL Immature Gran % (Auto) % Neut % (Auto) % Lymph % (Auto) % Kleberg % (Auto) % Eos % (Auto) % Baso % (Auto) % Neut # (Auto) (1.4-6.5) K/uL Lymph # (Auto) (1.2-3.4) K/uL Kleberg # (Auto) (0.11-0.59) K/uL Eos # (Auto) (0-0.5) K/uL Baso # (Auto) (0-0.2) K/uL Immature Gran # (Auto) (0.00-0.02) K/uL Ovalocytes VBG pH (7.36-7.41) VBG pCO2 (38-50) mmHg VBG pO2 mmHg VBG HCO3 mmol/L VBG O2 Saturation % VBG Base Excess mEq/L Barometric Pressure mm/Hg Sodium (136-145) mmol/L Potassium (3.5-5.1) mmol/L Chloride (98-107) mmol/L Carbon Dioxide (21-32) mmol/L Anion Gap (3-11) BUN (7-18) mg/dl Creatinine (0.6-1.2) mg/dl Est Cr Clr Drug Dosing ml/min Est GFR ( Amer) ml/min Est GFR (Non-Af Amer) ml/min BUN/Creatinine Ratio (10-20) Glucose (70-99) mg/dl Calcium (8.5-10.1) mg/dl Magnesium (1.8-2.4) mg/dl Troponin I (0-0.045) ng/ml NT-Pro-B Natriuret Pep (0-1800) pg/ml Procalcitonin < 0.05 (0-0.5) ng/ml COVID-19 Eval Order Covid19 at [facility] SARS-CoV-2 (PCR) POSITIVE A* (Negative) 02/27/21 02/27/21 02/27/21 Range/Units 22:41 22:41 22:41 WBC 6.53 (4.8-10.8) K/uL RBC 4.34 (4.2-5.4) M/uL Hgb 10.1 L (12.0-16.0) g/dL Hct 33.1 L (37-47) % MCV 76.3 L (80-100) fL MCH 23.3 L (25-34) pg MCHC 30.5 L (32-36) g/dL RDW Std Deviation 46.5 H (36.4-46.3) fL RDW Coeff of Jame 16.5 H (11.5-14.5) % Plt Count 263 (130-400) K/uL MPV 8.7 (7.4-10.4) fL Immature Gran % (Auto) 0.2 % Neut % (Auto) 77.6 % Lymph % (Auto) 12.1 % Kleberg % (Auto) 9.3 % Eos % (Auto) 0.6 % Baso % (Auto) 0.2 % Neut # (Auto) 5.07 (1.4-6.5) K/uL Lymph # (Auto) 0.79 L (1.2-3.4) K/uL Kleberg # (Auto) 0.61 H (0.11-0.59) K/uL Eos # (Auto) 0.04 (0-0.5) K/uL Baso # (Auto) 0.01 (0-0.2) K/uL Immature Gran # (Auto) 0.01 (0.00-0.02) K/uL Ovalocytes 1+ VBG pH 7.47 H (7.36-7.41) VBG pCO2 42 (38-50) mmHg VBG pO2 74 mmHg VBG HCO3 30 mmol/L VBG O2 Saturation 95.8 % VBG Base Excess 5.8 mEq/L Barometric Pressure 732.9 mm/Hg Sodium 135 L (136-145) mmol/L Potassium 3.2 L (3.5-5.1) mmol/L Chloride 98 (98-107) mmol/L Carbon Dioxide 30 (21-32) mmol/L Anion Gap 7.0 (3-11) BUN 17 (7-18) mg/dl Creatinine 0.94 (0.6-1.2) mg/dl Est Cr Clr Drug Dosing 54.9 ml/min Est GFR ( Amer) 68.3 ml/min Est GFR (Non-Af Amer) 58.9 ml/min BUN/Creatinine Ratio 17.6 (10-20) Glucose 179 H (70-99) mg/dl Calcium 8.7 (8.5-10.1) mg/dl Magnesium 1.7 L (1.8-2.4) mg/dl Troponin I < 0.015 (0-0.045) ng/ml NT-Pro-B Natriuret Pep 118 (0-1800) pg/ml Procalcitonin (0-0.5) ng/ml COVID-19 Eval Order SARS-CoV-2 (PCR) (Negative) Diagnostic Findings CT CHEST Without Contrast: The lungs are hyperexpanded with coarse and sparse interstitial markings consistent with emphysema. There are areas of bronchiectasis and adjacent scarring in the right suprahilar region and right upper lobe. There is dry and/or infiltrate in the lingula and to a lesser degree right upper lobe which are new since previous consistent with COPD exacerbation/pneumonia. No pneumothorax or pleural effusion is seen. The aorta is calcified but nondilated. The heart is not enlarged. No pericardial effusion is seen. Mild degenerative changes in the lower thoracic spine. No acute fracture or subluxation. Limited images of the upper abdomen appear unremarkable. Radiologist: Van Gonzalez MD CT ABDOMEN & PELVIS With Contrast: Comparison to January 06, 2018. The appendix is not visible. There is severe diverticulosis of the sigmoid colon. No acute inflammatory changes are seen involving the bowel. Mild fatty infiltration of the liver. No focal liver lesion is seen. The gallbladder, pancreas, spleen, adrenal glands, and kidneys appear within normal limits. There is an IVC filter in place. The aorta is calcified but nondilated. The uterus has been removed. The urinary bladder is normal. No free fluid in the pelvis. Moderate degenerative changes in the lower lumbar spine. No acute fracture or subluxation. Previous laminectomy. Radiologist: Van Gonzalez MD Medications Administered Home Medication List Medication Instructions Recorded Xarelto 20 mg PO QAM 02/10/19 escitalopram oxalate 15 mg PO QA 02/10/19 famotidine 20 mg PO QAM 02/10/19 levothyroxine 25 mcg PO QAM 02/10/19 metformin 500 mg PO BID 02/10/19 metoprolol succinate 25 mg PO BID 02/10/19 mirtazapine 30 mg PO HS 02/10/19 pantoprazole 40 mg PO BID 02/10/19 potassium chloride 20 meq PO QAM 02/10/19 quetiapine 200 mg PO HS 02/10/19 spironolactone 100 mg PO QAM 02/10/19 sucralfate 1 g PO ACHS 02/10/19 magnesium oxide 400 mg PO BID 02/20/19 Lantus Solostar U-100 Insulin 15 unit SUBCUT DAILY@2100 12/01/19 insulin lispro [Humalog KwikPen 12 unit SUBCUT TIDM 05/22/20 Insulin] albuterol sulfate 90 mcg/actuation 2 puff INHALATION Q6H PRN #18 g 06/05/20 aerosol inhaler 21cen Vit-D [facility] 400iu Chew 1 tab PO DAILY 02/27/21 albuterol sulfate 2.5 mg INHALATION Q4 PRN 02/27/21 budesonide 0.5 mg INHALATION BID 02/27/21 furosemide 20 mg PO DAILY 02/27/21 montelukast 10 mg PO DAILY 02/27/21 polysaccharide iron complex 150 mg PO BID 02/27/21 [Poly-Iron] roflumilast [Daliresp] 500 mcg PO DAILY 02/27/21 theophylline [Rohit-24] 400 mg PO DAILY 02/27/21 Supervising Physician Co-Signing Physician Notes Attending addendum: I have physically seen this patient, have supervised the medical residents activities, and agree with the H&P unless as otherwise noted. Assessment and Plan: COPD exacerbation/atypical pneumonia/COVID-19 infection Duonebs every 4 hours while awake and every 2 hours when necessary. Azithromycin 500 mg IV daily Guaifenesin extended release 600 mg [address] twice daily CT chest suggestive of atypical pneumonia in upper part of the lungs bilaterally Patient did receive 1 dose of COVID-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
[2021-02-28] MEDS ORDERED: AZITHROMYCIN 500 MG in DEXTROSE 5% 250 ML IV STA (01:04)
--- NOTE | 2021-02-28 01:34 | Emergency Department Note ---
History of Present Illness General Chief Complaint: Shortness of Breath/Dyspnea Stated Complaint: SOB Time Seen by Provider: 02/27/21 22:08 History of Present Illness Provider Complaint: shortness of breath Onset (ago): day(s) (2) Severity: moderate Maximum Pain Intensity: 7 Relieved By: + oxygen, + bronchodilators and + upright position Exacerbated By: + lying flat Context: no recent illness, no occurred during exertion, no choking/aspiration, no medication noncompliance, no recent travel, no smoke/fume exposure, no trauma/injury and no CO exposure Known history of: COPD and congestive heart failure Associated symptoms: + cough, + wheezing and + orthopnea; no chest pain, no pain with inspiration, no fever, no paresthesias, no hemoptysis, no diaphoresis, no nausea/vomiting, no syncope, no abdominal pain and no chest congestion Treatment prior to arrival: oxygen and bronchodilator HPI Narrative: Patient has hypoxic at 87% on her 2 L at home. She improved when her oxygen level was increased to 3 to 4 L. Patient states she had her first dose of the Covid vaccine 1 week ago. No fevers. Patient is compliant with Xarelto. Related Data Home oxygen amount: 2 liters Home Medications Medication Instructions Recorded Confirmed Type Xarelto 20 mg PO QAM 02/10/19 02/27/21 History escitalopram oxalate 15 mg PO QAM 02/10/19 02/27/21 History famotidine 20 mg PO QAM 02/10/19 02/27/21 History levothyroxine 25 mcg PO QAM 02/10/19 02/27/21 History metformin 500 mg PO BID 02/10/19 02/27/21 History metoprolol succinate 25 mg PO BID 02/10/19 02/27/21 History mirtazapine 30 mg PO HS 02/10/19 02/27/21 History pantoprazole 40 mg PO BID 02/10/19 02/27/21 History potassium chloride 20 meq PO QAM 02/10/19 02/27/21 History quetiapine 200 mg PO HS 02/10/19 02/27/21 History spironolactone 100 mg PO QAM 02/10/19 02/27/21 History sucralfate 1 g PO ACHS 02/10/19 02/27/21 History magnesium oxide 400 mg PO BID 02/20/19 02/27/21 History Lantus Solostar U-100 Insulin 15 unit SUBCUT DAILY@2100 12/01/19 02/27/21 History insulin lispro [Humalog KwikPen 12 unit SUBCUT TIDM 05/22/20 02/27/21 History Insulin] albuterol sulfate 90 mcg/actuation 2 puff INHALATION Q6H PRN #18 g 06/05/20 02/27/21 Rx aerosol inhaler 21cen Vit-D [place] 400iu Chew 1 tab PO DAILY 02/27/21 02/27/21 History albuterol sulfate 2.5 mg INHALATION Q4 PRN 02/27/21 02/27/21 History budesonide 0.5 mg INHALATION BID 02/27/21 02/27/21 History furosemide 20 mg PO DAILY 02/27/21 02/27/21 History montelukast 10 mg PO DAILY 02/27/21 02/27/21 History polysaccharide iron complex 150 mg PO BID 02/27/21 02/27/21 History [Poly-Iron] roflumilast [Daliresp] 500 mcg PO DAILY 02/27/21 02/27/21 History theophylline [Rohit-24] 400 mg PO DAILY 02/27/21 02/27/21 History Allergies Allergy/AdvReac Type Severity Reaction Status Date / Time rabies vaccine, duck-embryo Allergy Severe HIVES Verified 02/27/21 23:12 ragweed pollen Allergy Unknown UNKNOWN Verified 02/27/21 23:12 tomato Allergy Unknown HIVES Verified 02/27/21 23:12 Past Med/Surg History Medical History (Updated 02/28/21 @ 01:35 by Cesar Garcia) Acute on chronic combined systolic (congestive) and diastolic (congestive) heart failure Acute respiratory failure with hypoxia Breast cancer, right breast CHF (congestive heart failure) COPD (chronic obstructive pulmonary disease) COPD exacerbation Diabetes Elevated troponin Endocarditis KATHLEEN (generalized anxiety disorder) GERD (gastroesophageal reflux disease) GI bleed Hypoxia Major depression, recurrent, full remission MSSA (methicillin susceptible Staphylococcus aureus) septicemia Nausea & vomiting Obesity hypoventilation syndrome QT prolongation Septic thrombophlebitis Spinal abscess Syncope Vomiting and diarrhea Surgical History History of lumpectomy Family History Other Coronary heart disease Stroke Social History Smoking Status: Former smoker Hx Alcohol Use: No Hx Substance Use: No Preferred Language: Guinean Communication Ability: Effective Ecologist Required: No Beliefs That Will Affect Care: None marital status: Single Current Living Situation: Alone Current Living Situation Comment: with caregiver current occupational status: retired How many Children do You have: 0 Feels Safe at Home: Yes Assistive Devices: None Review of Systems A total of 10 systems reviewed and were otherwise negative Physical Exam Vital Signs: Vital Signs - 24 hr 02/27/21 22:10 02/27/21 22:20 02/27/21 22:32 Temperature 37.1 C Temperature Source Oral Pulse Rate 87 82 Pulse Rate [Apical ] Pulse Rate from Sp O2 Sensor 84 Respiratory Rate 24 23 Respiratory Effort / Characteristics Spontaneous Respiratory Depth Normal Blood Pressure 161/73 H Blood Pressure Caryn n 102 Blood Pressure Pos ition Semi-fowlers Pulse Oximetry 95 95 Oxygen Delivery Me thod Nasal Cannula Nasal Cannula Nasal Cannula Oxygen Flow Rate 2 2 2 Sepsis Recent Feve r Within 48 Hours No Sepsis New/Unexpla ined Change in Men ingrid Status No Sepsis Action Take n by Nursing No Action Required 02/27/21 22:58 02/27/21 23:00 02/27/21 23:30 Temperature Temperature Source Pulse Rate 79 82 Pulse Rate [Apical ] 78 Pulse Rate from Sp O2 Sensor 79 82 Respiratory Rate 20 20 19 Respiratory Effort / Characteristics Spontaneous Labore d Short of Breath SOB on Exertion Respiratory Depth Blood Pressure Blood Pressure Caryn n Blood Pressure Pos ition Pulse Oximetry 95 99 95 Oxygen Delivery Me thod Nasal Cannula Oxygen Flow Rate 3 Sepsis Recent Feve r Within 48 Hours Sepsis New/Unexpla ined Change in Men ingrid Status Sepsis Action Take n by Nursing 02/27/21 23:49 02/28/21 00:00 02/28/21 00:01 Temperature Temperature Source Pulse Rate 83 88 Pulse Rate [Apical ] 78 Pulse Rate from Sp O2 Sensor 83 88 Respiratory Rate 18 17 18 Respiratory Effort / Characteristics Spontaneous Short of Breath Respiratory Depth Blood Pressure 130/74 Blood Pressure Caryn n 92 Blood Pressure Pos ition Pulse Oximetry 94 94 94 Oxygen Delivery Me thod Nasal Cannula Oxygen Flow Rate 3 Sepsis Recent Feve r Within 48 Hours Sepsis New/Unexpla ined Change in Men ingrid Status Sepsis Action Take n by Nursing Physical Exam: Physical Exam GENERAL: She is oriented to person, place, and time. She appears well-developed and well-nourished. She does not appear distressed. HENT: Exam performed. -Head: Normocephalic and atraumatic. -Right Ear: External ear normal. No mastoid tenderness. -Left Ear: External ear normal. No mastoid tenderness. -Mouth/Throat: The oropharynx is clear and moist. No trismus in the jaw. No dental abscesses or uvula swelling. No oropharyngeal exudate or tonsillar ab scesses. EYES: Conjunctivae and EOM are normal. Pupils are equal, round, and reactive to light. Right eye exhibits no discharge. Left eye exhibits no discharge. No scleral icterus. NECK: Normal range of motion. Neck supple. No JVD present. No spinous process tenderness present. No carotid bruit present. No rigidity. No tracheal deviation and normal range of motion present. No Brudzinski's sign and no Kernig's sign noted. CV: Normal rate, regular rhythm, normal heart sounds and intact distal pulses. There is no peripheral edema. Palpable radial pulses bue. PULM/CHEST: Tachypneic. Inspiratory rales and expiratory wheezes. Rhonchi bilaterally. -Chest Wall: She exhibits no tenderness. ABD: The abdomen is soft. Bowel sounds are normal. She has no distension. No mass is present. There is no tenderness. There is no rebound, no guarding, no Molina's sign and no tenderness at McBurney's point. Rovsig negative MUSC/SKEL: Normal range of motion. There is no peripheral edema, tenderness or deformity. LYMPH: No cervical adenopathy. NEURO: She is alert and oriented to person, place, and time. She has normal strength. No cranial nerve deficit or sensory deficit. Coordination and gait normal. GCS eye subscore is 4. GCS verbal subscore is 5. GCS motor subscore is 6. Cerebellar tests wnl. SKIN: Skin is warm and dry. She is not diaphoretic. PSYCH: She has a normal mood and affect. Behavior is normal. Judgment and thought content normal. Course Course 2207: The patient was evaluated in room C4. A complete history and physical exam was performed Cardiac monitoring: An order was placed for continuous cardiac monitoring. The monitor shows a rate of 90 with sinus rhythm 0115: Vital signs stable on 3 L nasal cannula. Patient continues to wheeze despite a total of 3 DuoNeb's between the EMS ride in the emergency department today. Prednisone 60 mg was also ordered for the patient. Labs are within normal limits with exception of potassium 3.2. EKG within normal limits. Chest x-ray shows no acute changes. Patient is Covid positive. [facility]. Administered Medications Discontinued Medications Albuterol (Albut/Ipratrop 3mg/0.5mg Neb 3 Ml Vial) 3 ml NEB NOW STA Stop: 02/27/21 22:14 Last Admin: 02/27/21 22:58 Dose: 3 ml Documented by: [id number] Albuterol (Albut/Ipratrop 3mg/0.5mg Neb 3 Ml Vial) 3 ml NEB NOW STA Stop: 02/27/21 23:28 Last Admin: 02/27/21 23:49 Dose: 3 ml Documented by: [id number] Aspirin (Aspirin Chew 324 Mg) 324 mg PO NOW STA Stop: 02/27/21 22:14 Last Admin: 02/27/21 22:24 Dose: 324 mg Documented by: [id number] Prednisone (Prednisone 50 Mg Tab) 50 mg PO NOW STA Stop: 02/27/21 22:14 Last Admin: 02/27/21 22:24 Dose: 50 mg Documented by: [id number] Medical Decision Making Laboratory Data Result diagrams: 02/27/21 22:41 02/27/21 22:41 Lab Results 02/27/21 02/27/21 02/27/21 Range/Units 22:41 22:41 22:41 WBC 6.53 (4.8-10.8) K/uL RBC 4.34 (4.2-5.4) M/uL Hgb 10.1 L (12.0-16.0) g/dL Hct 33.1 L (37-47) % MCV 76.3 L (80-100) fL MCH 23.3 L (25-34) pg MCHC 30.5 L (32-36) g/dL RDW Std Deviation 46.5 H (36.4-46.3) fL RDW Coeff of Jame 16.5 H (11.5-14.5) % Plt Count 263 (130-400) K/uL MPV 8.7 (7.4-10.4) fL Immature Gran % (Auto) 0.2 % Neut % (Auto) 77.6 % Lymph % (Auto) 12.1 % [place] % (Auto) 9.3 % Eos % (Auto) 0.6 % Baso % (Auto) 0.2 % Neut # (Auto) 5.07 (1.4-6.5) K/uL Lymph # (Auto) 0.79 L (1.2-3.4) K/uL [place] # (Auto) 0.61 H (0.11-0.59) K/uL Eos # (Auto) 0.04 (0-0.5) K/uL Baso # (Auto) 0.01 (0-0.2) K/uL Immature Gran # (Auto) 0.01 (0.00-0.02) K/uL Ovalocytes 1+ VBG pH 7.47 H (7.36-7.41) VBG pCO2 42 (38-50) mmHg VBG pO2 74 mmHg VBG HCO3 30 mmol/L VBG O2 Saturation 95.8 % VBG Base Excess 5.8 mEq/L Barometric Pressure 732.9 mm/Hg Sodium 135 L (136-145) mmol/L Potassium 3.2 L (3.5-5.1) mmol/L Chloride 98 (98-107) mmol/L Carbon Dioxide 30 (21-32) mmol/L Anion Gap 7.0 (3-11) BUN 17 (7-18) mg/dl Creatinine 0.94 (0.6-1.2) mg/dl Est Cr Clr Drug Dosing 54.9 ml/min Est GFR ( Amer) 68.3 ml/min Est GFR (Non-Af Amer) 58.9 ml/min BUN/Creatinine Ratio 17.6 (10-20) Glucose 179 H (70-99) mg/dl Calcium 8.7 (8.5-10.1) mg/dl Magnesium 1.7 L (1.8-2.4) mg/dl Troponin I < 0.015 (0-0.045) ng/ml NT-Pro-B Natriuret Pep 118 (0-1800) pg/ml COVID-19 Eval Order SARS-CoV-2 (PCR) (Negative) 02/27/21 02/27/21 Range/Units 23:44 23:44 WBC (4.8-10.8) K/uL RBC (4.2-5.4) M/uL Hgb (12.0-16.0) g/dL Hct (37-47) % MCV (80-100) fL MCH (25-34) pg MCHC (32-36) g/dL RDW Std Deviation (36.4-46.3) fL RDW Coeff of Jame (11.5-14.5) % Plt Count (130-400) K/uL MPV (7.4-10.4) fL Immature Gran % (Auto) % Neut % (Auto) % Lymph % (Auto) % [place] % (Auto) % Eos % (Auto) % Baso % (Auto) % Neut # (Auto) (1.4-6.5) K/uL Lymph # (Auto) (1.2-3.4) K/uL [place] # (Auto) (0.11-0.59) K/uL Eos # (Auto) (0-0.5) K/uL Baso # (Auto) (0-0.2) K/uL Immature Gran # (Auto) (0.00-0.02) K/uL Ovalocytes VBG pH (7.36-7.41) VBG pCO2 (38-50) mmHg VBG pO2 mmHg VBG HCO3 mmol/L VBG O2 Saturation % VBG Base Excess mEq/L Barometric Pressure mm/Hg Sodium (136-145) mmol/L Potassium (3.5-5.1) mmol/L Chloride (98-107) mmol/L Carbon Dioxide (21-32) mmol/L Anion Gap (3-11) BUN (7-18) mg/dl Creatinine (0.6-1.2) mg/dl Est Cr Clr Drug Dosing ml/min Est GFR ( Amer) ml/min Est GFR (Non-Af Amer) ml/min BUN/Creatinine Ratio (10-20) Glucose (70-99) mg/dl Calcium (8.5-10.1) mg/dl Magnesium (1.8-2.4) mg/dl Troponin I (0-0.045) ng/ml NT-Pro-B Natriuret Pep (0-1800) pg/ml COVID-19 Eval Order Covid19 at [facility] SARS-CoV-2 (PCR) POSITIVE A* (Negative) Imaging Data My Impression: No significant change from the chest x-ray done in May 2020. ECG Data Interpretation: Sinus rhythm with rate of 83. [place] 166 QRS [address] elevation or ST depression. [facility] Narrative 2207: The patient was evaluated in room C4. A complete history and physical exam was performed Cardiac monitoring: An order was placed for continuous cardiac monitoring. The monitor shows a rate of 90 with sinus rhythm 0115: Vital signs stable on 3 L nasal cannula. Patient continues to wheeze despite a total of 3 DuoNeb's between the EMS ride in the emergency department today. Prednisone 60 mg was also ordered for the patient. Labs are within normal limits with exception of potassium 3.2. EKG within normal limits. Chest x-ray shows no acute changes. Patient is Covid positive. Patient will be admitted to the [facility] hospitalist team Dr. Fleming notified. Impression & Plan COPD (chronic obstructive pulmonary disease), COVID-19 Discharge Plan Visit Data Chief Complaint: Shortness of Breath/Dyspnea Stated Complaint: SOB ED Provider: Cesar Garcia Discharge Problem: COPD (chronic obstructive pulmonary disease), COVID-19 Patient Disposition: Admitted As Inpatient Forms Stand Alone Forms: My [facility] Prescriptions Prescriptions: No Action Trelegy Ellipta 100-62.5-25 mcg blister with device 1 inh inhalation DAILY RF: 0 albuterol sulfate 90 mcg/actuation HFA aerosol inhaler 2 puff inhalation Q6H PRN (Reason: Shortness Of Breath Or Wheezing) Qty: 18 RF: 3 Lantus Solostar U-100 Insulin 100 unit/mL (3 mL) insulin pen 15 unit subcut DAILY@2100 RF: 0 insulin lispro [Humalog KwikPen Insulin] 100 unit/mL insulin pen 12 unit SUBCUT TIDM RF: 0 sucralfate 1 gram Tablet 1 g PO ACHS RF: 0 quetiapine 200 mg Tablet 200 mg PO HS RF: 0 levothyroxine 25 mcg Tablet 25 mcg PO QAM RF: 0 potassium chloride 20 mEq Tablet,Er Particles/Crystals 20 meq PO QAM RF: 0 famotidine 20 mg Tablet 20 mg PO QAM RF: 0 pantoprazole 40 mg Tablet,Delayed Release (Dr/Ec) 40 mg PO BID RF: 0 mirtazapine 30 mg tablet 30 mg PO HS RF: 0 metformin 500 mg Tablet Extended Release 24 Hr 500 mg PO BID RF: 0 spironolactone 50 mg Tablet 100 mg PO QAM RF: 0 escitalopram oxalate 10 mg Tablet 15 mg PO QAM RF: 0 Xarelto 20 mg Tablet 20 mg PO QAM RF: 0 metoprolol succinate 25 mg Capsule,Sprinkle,Er 24hr 25 mg PO BID RF: 0 magnesium oxide 400 mg magnesium Tablet 400 mg PO BID RF: 0 21cen Vit-D [place] 400iu Chew 1 tab PO DAILY RF: 0 albuterol sulfate 2.5 mg /3 mL (0.083 %) solution for nebulization 2.5 mg inhalation Q4 PRN (Reason: Shortness Of Breath Or Wheezing) RF: 0 polysaccharide iron complex [Poly-Iron] 150 mg iron capsule 150 mg PO BID RF: 0 budesonide 0.5 mg/2 mL suspension for nebulization 0.5 mg inhalation BID RF: 0 montelukast 10 mg Tablet 10 mg PO DAILY RF: 0 furosemide 20 mg tablet 20 mg PO DAILY RF: 0 Rohit-24 400 mg capsule,extended release 24hr 400 mg PO DAILY RF: 0 Daliresp 500 mcg tablet 500 mcg PO DAILY RF: 0 Referrals Referrals: Anil Rodriguez [Primary Care Provider] - Discharge Problem: COPD (chronic obstructive pulmonary disease) Qualifiers: COPD type: unspecified COPD Qualified Code(s): J44.9 - Chronic obstructive pulmonary disease, unspecified
[2021-02-28] MEDS ORDERED: OPTIRAY 320 100ml IV ONE (02:39)
[2021-02-28] MEDS ORDERED: POLYETHYLENE (MIRALAX) 17 GM PACK PO PRN (03:48)
[2021-02-28] MEDS ORDERED: GLUCOSE 40% GEL 15 GM TUBE PO PRN (03:48)
[2021-02-28] MEDS ORDERED: ALUMINUM/MAGNESIUM SUSP 30 ML UDC PO PRN (03:48)
[2021-02-28] MEDS ORDERED: ALBUTEROL HFA 8 GM INHALER INH PRN (03:48)
[2021-02-28] MEDS ORDERED: CARBOHYDRATES FOR HYPOGLYCEMIA PO PRN (03:48)
[2021-02-28] MEDS ORDERED: GLUCOSE 10 TABS/TUBE PO PRN (03:48)
[2021-02-28] MEDS ORDERED: DEXTROSE 50% 50 ML SYRINGE IV PRN (03:48)
[2021-02-28] MEDS ORDERED: GLUCAGON FOR INJ 1 MG VIAL SQ PRN (03:48)
[2021-02-28] MEDS ORDERED: ONDANSETRON INJ 2 MG/ML 2 ML VIAL IV PRN (03:48)
[2021-02-28] MEDS ORDERED: MAGNESIUM HYDROXIDE SUSP 30 ML UDC PO PRN (03:48)
[2021-02-28] MEDS: LEVOTHYROXINE SODIUM 25 MCG TABLET PO SCH (05:36)
[2021-02-28 07:09] LABS: Hematocrit (blood only) 33.9 % (37-47); Hemoglobin 10.1 g/dL (12.0-16.0); Immature Granulocytes # (auto) 0.01 K/uL (0.00-0.02); Immature Granulocytes % (auto) 0.3 %; Lymphocytes # (auto) 0.36 K/uL (1.2-3.4); Lymphocytes % (auto) 9.6 %; Mean Corpuscular Hgb Conc 29.8 g/dL (32-36); Mean Corpuscular Volume 77.2 fL (80-100); Mean Platelet Volume 8.7 fL (7.4-10.4); Monocytes # (auto) 0.04 K/uL (0.11-0.59); Monocytes % (auto) 1.1 %; Neutrophils # (auto) 3.35 K/uL (1.4-6.5); Platelet Count 254 K/uL (130-400); RDW Coefficient of Variation 16.7 % (11.5-14.5); RDW Standard Deviation 47.7 fL (36.4-46.3); Red Blood Count 4.39 M/uL (4.2-5.4); White Blood Count 3.76 K/uL (4.8-10.8)
[2021-02-28] MEDS: ALBUTEROL 0.083% NEBU SOLN 3 ML VIAL INH PRN ×4 (07:28→22:16)
[2021-02-28] MEDS: BUDESONIDE 0.5 MG/2 ML VIAL (PULMICORT) INH SCH ×2 (07:28→18:11)
[2021-02-28 07:30] LABS: BUN Creatinine Ratio 17.5 (10-20); Calcium 8.6 mg/dl (8.5-10.1); Creatinine Clr Calc Pharmacy 51.9 ml/min; Est GFR (African American) 64.9 ml/min; Phosphorus 2.9 mg/dl (2.5-4.9); Potassium 3.4 mmol/L (3.5-5.1)
--- NOTE | 2021-02-28 07:35 | CT Scan Report ---
CT OF THE ABDOMEN AND PELVIS WITH CONTRAST CLINICAL HISTORY: Abdominal pain. COMPARISON STUDY: CT of the abdomen and pelvis January 06, 2018. Right upper quadrant ultrasound January 07, 2018. TECHNIQUE: Following IV administration of 94 mL of Optiray, axial images of the abdomen and pelvis we re obtained from the lung bases to the proximal femurs. Images were reviewed in the axial, sagittal, and coronal planes. IV contrast was administered without complication. Automated exposure control wa s utilized for the study. A dose lowering technique was utilized adhering to the principles of ALARA . CT DOSE: 1550.37 mGy.cm FINDINGS: Please note that the chest CT will be reported separately. No pneumatosis, free air or port al venous gas is present. The liver, spleen, adrenal glands, kidneys and pancreas are unremarkable. T here is no biliary or pancreatic ductal dilatation. There is no hydronephrosis. IVC filters in place. There is extensive sigmoid diverticulosis without evidence for acute diverticulitis. There is no angel dence for a bowel obstruction. Major vasculature is patent. There is no lymphadenopathy or ascites. A vascular necrosis of both femoral heads is noted. There are postoperative findings within the lumbosa cral spine consistent with multilevel decompression. There is no lymphadenopathy. IMPRESSION: 1. No acute process within the abdomen or pelvis. 2. Extensive sigmoid diverticulosis without evidence for acute diverticulitis. 3. Avascular necrosis of the bilateral femoral heads. ACT 112: Negative or not required by law. Electronically signed by: Rick Canchola M.D. 02/28/2021 7:34 AM
[2021-02-28] MEDS: SUCRALFATE 1 GM TAB PO SCH ×4 (07:50→20:35)
[2021-02-28 07:58] LABS: Estimated Average Glucose 206 mg/dl; Hemoglobin A1C 8.8 % (4.5-5.6)
[2021-02-28] MEDS: ESCITALOPRAM OXALATE 10 MG TAB PO SCH (08:02)
[2021-02-28] MEDS: SPIRONOLACTONE 100 MG TAB PO SCH (08:04)
[2021-02-28] MEDS: METOPROLOL SUCC 25MG EXT REL TAB PO SCH ×2 (08:04→20:35)
[2021-02-28] MEDS: PANTOprazole 40 MG TAB PO SCH ×2 (08:04→20:35)
[2021-02-28] MEDS: ROFLUMILAST 500 MCG TAB PO SCH (08:05)
[2021-02-28] MEDS: MONTELUKAST SODIUM 10 MG TABLET PO SCH (08:05)
[2021-02-28] MEDS: FUROSEMIDE 20 MG TAB PO SCH (08:06)
[2021-02-28] MEDS: MAGNESIUM OXIDE 400 MG TAB PO SCH ×2 (08:06→20:35)
[2021-02-28] MEDS: FAMOTIDINE 20 MG TAB PO SCH (08:06)
--- NOTE | 2021-02-28 08:16 | XRay Report ---
XR chest 1V portable CLINICAL HISTORY: Shortness of breath. COMPARISON STUDY: Chest CT May 25, 2020. FINDINGS: Cardiomegaly is unchanged. There is no evidence for pulmonary edema. Mild left basilar opac ity is unchanged. Appearance of the chest is unchanged. IMPRESSION: No acute cardiopulmonary findings. No change in appearance of the chest. ACT 112: Negative or not required by law. Electronically signed by: Rick Canchola M.D. 02/28/2021 8:14 AM
[2021-02-28] MEDS: INSULIN ASPART 100 UNITS/ML 3 ML PEN SC SCH ×5 (08:41→23:45)
--- NOTE | 2021-02-28 08:42 | Hospitalist Progress Note ---
Date of Service February 28, 2021 Assessment & Plan (1) COPD exacerbation: Mini Clemons is a 75-year-old female with past medical history significant for hypertension, pulmonary embolism on chronic anticoagulation, COPD, CHF; who presents for concerns of abdominal pain and shortness of breath o jeremy the last several days. COPD exacerbation: COVID-19 infection, patient's GI symptoms loss of smell and fatigue began approximately 4 weeks prior to presentation and 1 week prior to her first Covid vaccine -CT chest demonstrating signs of COPD exacerbation versus pneumonia -Pro-Jean Claude negative -Received multiple rounds of duo nebs in ED with no resolution of symptoms -On chronic oxygen at home (2 L nasal cannula) now on 3 L of oxygen -Started Solu-Medrol 40 mg daily -Zithromax 500 given in ED given concern for COPD exacerbation -Will not continue dosing at this time given COVID-19 infection Due to the commingled diagnosis of COPD exacerbation and Covid we will change her steroids to dexamethasone. She is out of the timeframe for remdesivir. She is not yet having significant inflammatory phase of reaction to qualify for tocilizumab watch expectantly for oxygen saturation changes and change in pulmonary examination Abdominal pain: Diarrhea consider Covid colitis however imaging does not support this symptoms however with persistent diarrhea may -Uncertain etiology of abdominal pain -CT abdomen pelvis demonstrating severe diverticulosis of the sigmoid colon; however, no acute inflammatory changes -Continue home Pepcid, Protonix, and Carafate History of pulmonary embolism: -Chronically on Xarelto -Additionally has IVC filter in place -Continue Xarelto while inpatient Hypertension: -Continue home antihypertensive regimen Hypothyroidism: -Continue home Synthroid Diet: Regular CODE STATUS: Full code DVT ppx: Continue home Xarelto (2) COVID-19: (3) Abdominal pain: Admission and Anticipated Discharge Date Admission Date: February 28, 2021 Subjective Patient feeling somewhat better she is markedly tremulous and anxious worrying about her diagnosis of Covid. She is not significantly short of breath although she is on 3 L of oxygen typically wearing 2 L of oxygen at home. Her presentation is likely combination of COPD exacerbation and some Covid colitis Review of Systems Review of Systems: Moderate distress and fatigue no headache, no visual changes no speech or swallowing issues no chest pain, pressure or palpitations Shortness of breath dyspnea nonproductive cough no abdominal pain, mild nausea without, persistent loose bowel movements no dysuria, hematuria or frequency no focal joint pain or swelling no back pain, CVA tenderness or radicular pain no bruising, bleeding or rashes no focal signs of weakness or numbness or altered sensation no complaints of anxiety or depression.. Physical Exam Physical Exam: The patient appeared well nourished and normally developed. Vital signs as documented. Head exam is normocephalic atraumatic Neck is without JVD, thyromegaly, or carotid bruits. Lungs are clear to auscultation, no focal loss of breath sounds Cardiac exam, Rhythm is regular.. No murmurs, rubs or gallops. Abdominal exam reveals normal bowel sounds, tender left upper quadrant Extremities are nonedematous and both pedal pulses are present Neurologic exam is alert and oriented, no focal loss of strength or sensation Skin is without bruises or rashes Psychologically is without concerns for anxiety or depression Results & Data Results & Data ([facility]) Vital Signs (Past 12 Hours) Vital Signs Temp Pulse Pulse Pulse Resp BP BP 02/28/21 08:23 02/28/21 07:51 98.6 F 80 24 131/65 02/28/21 07:29 68 16 02/28/21 04:25 70 18 02/28/21 03:58 98.4 F 77 18 135/73 02/28/21 02:40 82 18 143/58 H 02/28/21 02:33 79 17 02/28/21 02:25 129/47 L 02/28/21 02:00 80 14 129/47 L 02/28/21 01:30 80 31 H 120/70 02/28/21 01:00 80 20 127/59 L 02/28/21 00:30 85 20 113/67 02/28/21 00:01 88 18 130/74 02/28/21 00:00 83 17 02/27/21 23:49 78 18 02/27/21 23:30 82 19 02/27/21 23:00 79 20 02/27/21 22:58 78 20 02/27/21 22:32 82 23 02/27/21 22:10 98.8 F 87 24 161/73 H Pulse Ox Pulse Ox 02/28/21 08:23 96 02/28/21 07:51 96 02/28/21 07:29 95 02/28/21 04:25 97 02/28/21 03:58 97 02/28/21 02:40 96 02/28/21 02:33 98 02/28/21 02:25 02/28/21 02:00 94 02/28/21 01:30 95 02/28/21 01:00 93 02/28/21 00:30 94 02/28/21 00:01 94 02/28/21 00:00 94 02/27/21 23:49 94 02/27/21 23:30 95 02/27/21 23:00 99 02/27/21 22:58 95 02/27/21 22:32 95 02/27/21 22:10 95 PG Care Time/CCT Total # of Minutes Spent Total Time Spent with Patient: Total time spent is greater than 50% in coordination of care (as documented) at patient's floor/unit and/or counseling patient: Coding Level of Care Code 59409 Subseq Hosp Care Lvl 3 Diagnoses COPD exacerbation J44.1 COVID-19 U07.1 Abdominal pain R10.9
[2021-02-28] MEDS ORDERED: methylPREDNISolone 40 MG in SYRINGE 0 ML IV SCH (09:00)
--- NOTE | 2021-02-28 09:00 | CT Scan Report ---
CT chest diagnostic wo con CT DOSE: HISTORY: Covid pneumonia. COPD exacerbation. Shortness of breath. TECHNIQUE: Multiaxial CT images of the chest were performed without contrast. A dose lowering techni que was utilized adhering to the principles of ALARA. COMPARISON: Chest CT 05/25/2020. FINDINGS: There are old mild superior endplate compression deformities at T1 and T4, unchanged. No ac melina fractures identified within the visualized osseous structures of the chest. The central airways a re patent. Moderate to severe emphysema. There is again noted a 3.5 cm right apical bleb. A few bibas ilar linear densities consistent with subsegmental atelectasis or scarring. Small patchy groundglass and consolidative airspace opacities seen within the bilateral suprahilar locations as well as the ba se of the lingula. This favors a mild pneumonia. Subcentimeter mediastinal lymph nodes do not meet CT criteria for pathologic involvement. Normal esophagus. Limited views of the upper abdomen demonstrat e hepatic steatosis and a normal spleen. The visualized adrenal glands are unremarkable. No pneumotho rax. No pleural or pericardial effusions. The heart is borderline enlarged. Normal caliber thoracic a ella with mild atherosclerotic plaque. IMPRESSION: 1. Small patchy airspace opacities within the bilateral upper lobes as described above. This favors a mild atypical pneumonia. 2. Emphysema. 3. Additional findings as described above. ACT 112: Negative or not required by law. Electronically signed by: Charly Cabrera M.D. 02/28/2021 8:59 AM
[2021-02-28] MEDS ORDERED: NURSING DECISION MEDICATION ONE (10:52)
[2021-02-28] MEDS ORDERED: COUGH DROP (SUGAR FREE) LOZ 24 LOZ/1 BOX BUCCAL ONE (11:01)
[2021-02-28] MEDS: COUGH DROP (SUGAR FREE) LOZ 24 LOZ/1 BOX BUCCAL PRN (11:15)
[2021-02-28] MEDS: dexAMETHasone 6 MG in SYRINGE 0 ML IV SCH (12:59)
[2021-02-28] MEDS: LORazepam 0.5 MG TAB PO PRN (13:00)
[2021-02-28] MEDS ORDERED: INSULIN HUMAN NPH SC ONE (14:00)
[2021-02-28] MEDS ORDERED: PHARMACY GLYCEMIC MGMT CONSULT PRN (14:00)
--- NOTE | 2021-02-28 14:05 | Pharmacy Report ---
Pharmacy Glycemic Short Note 2 - Date of Service February 28, 2021 - Glycemic Short BSG Results (Last 24 hours): 02/27/21 02/28/21 02/28/21 22:41 06:43 08:01 Glucose 179 H 300 H POC Glucose 280 H 02/28/21 02/28/21 12:39 12:40 Glucose POC Glucose 338 H* 345 H* OUTPATIENT ANTIDIABETIC REGIMEN: * Lantus 15 units SQ HS * Humalog 12 units SQ AC * Metformin * A1c = 8.8% on 02/28/21 ASSESSMENT: * 75yo T2DM female with sub-adequate control of DM as an outpatient. Goal A1c would be <8% based on age/co-morbidities * Pt admitted with COPD Exacerbation + COVID19 infection. Pt received high dose steroids x 4 since admission * Prednisone 40mg PO in ED last night around 2200 * Solumedrol 40mg IV at 0100 * Solumedrol 40mg IV at 0900 * Dexamethasone 6mg IV today at 1130 which will continue daily starting tomorrow * Pt with SEVERE Hyperglycemia secondary to steroids, illness/infection, and baseline poor control. * NPH insulin is used to counteract the hyperglycemic effect of daily dosed steroids * The dose of NPH given is dependent on the steroid dose given * For doses of prednisone 40mg/day (or equivalent) or above the NPH dose should be 0.4 units/kg * NPH dosing above is given in addition to patients baseline basal + prandial insulin needs PLAN FOR INPATIENT GLYCEMIC CONTROL: * Hold outpatient oral diabetes medications (metformin); use SQ basal bolus in its place * Basal insulin * Stress outpatient Lantus for stress/illness; increase to 22 units SQ HS * Steroid induced hyperglycemia * NPH 36 units (0.4 units/kg) SQ daily with DXM (hold if DXM held or DC) * Bolus insulin * NovoLog per scale ACHS or Q6hrs while NPO. Additional checks + coverage at 0000 & 0400 for sustained hyperglycemia * Goal Range: Low 110 mg/dL - High 140 mg/dL * Correction Factor: 20 mg/dL/unit * Nutritional / Prandial insulin per carb ratio of 1 unit per 6 grams CHO consumed PLAN FOR DISCHARGE: * TBD based on inpatient trends; likely insulin regimen will need adjusted to achieve A1c < 8%
[2021-02-28] MEDS ORDERED: INSULIN ASPART 100 UNITS/ML 3 ML PEN SC ONE (14:15)
--- NOTE | 2021-02-28 15:08 | Electrocardiogram Report ---
Test Reason : Blood Pressure : / mmHG Vent. Rate : 083 BPM Atrial Rate : 083 BPM P-R Int : 166 ms QRS Dur : 074 ms QT Int : 374 ms P-R-T Axes : 066 018 076 degrees QTc Int : 439 ms Poor data quality, interpretation may be adversely affected Normal sinus rhythm Nonspecific ST and T wave abnormality Abnormal ECG When compared with ECG of 22-MAY-2020 17:09, T wave inversion now evident in Anterior leads QT has lengthened Confirmed by Loyd Lawton ([id number]) on 02/28/2021 3:07:59 PM Referred By: REFERRED SELF Confirmed By:Roel Lawton
[2021-02-28] MEDS: RIVAROXABAN 20 MG TAB PO SCH (17:30)
[2021-02-28] MEDS: MIRTAZAPINE TAB 15 MG TAB PO SCH (20:35)
[2021-02-28] MEDS: INSULIN GLARGINE SOLOSTAR 100 UNITS/ML 3 ML PEN SQ SCH (20:37)
[2021-02-28] MEDS ORDERED: QUEtiapine FUMARATE 200 MG TAB PO SCH (21:00)
[2021-02-28] MEDS ORDERED: INSULIN GLARGINE SOLOSTAR 100 UNITS/ML 3 ML PEN SQ SCH (21:00)
[2021-03-01] MEDS: INSULIN ASPART 100 UNITS/ML 3 ML PEN SC SCH ×5 (04:19→21:35)
--- NOTE | 2021-03-01 04:39 | Billing Data ---
Date of Service March 01, 2021 Coding Level of Care Code 89553 Initial Inpt Care Lvl 3
[2021-03-01] MEDS: ALBUTEROL 0.083% NEBU SOLN 3 ML VIAL INH PRN ×3 (04:54→10:59)
[2021-03-01] MEDS: LEVOTHYROXINE SODIUM 25 MCG TABLET PO SCH (05:44)
[2021-03-01] MEDS: BUDESONIDE 0.5 MG/2 ML VIAL (PULMICORT) INH SCH (07:35)
[2021-03-01 07:46] LABS: Hematocrit (blood only) 31.9 % (37-47); Hemoglobin 9.6 g/dL (12.0-16.0); Immature Granulocytes # (auto) 0.02 K/uL (0.00-0.02); Immature Granulocytes % (auto) 0.2 %; Lymphocytes # (auto) 1.03 K/uL (1.2-3.4); Lymphocytes % (auto) 9.6 %; Mean Corpuscular Hemoglobin 23.6 pg (25-34); Mean Corpuscular Hgb Conc 30.1 g/dL (32-36); Mean Corpuscular Volume 78.4 fL (80-100); Mean Platelet Volume 8.8 fL (7.4-10.4); Monocytes # (auto) 0.89 K/uL (0.11-0.59); Monocytes % (auto) 8.3 %; Neutrophils % (auto) 81.9 %; Platelet Count 275 K/uL (130-400); RDW Coefficient of Variation 16.8 % (11.5-14.5); RDW Standard Deviation 48.6 fL (36.4-46.3); Red Blood Count 4.07 M/uL (4.2-5.4); White Blood Count 10.74 K/uL (4.8-10.8)
[2021-03-01 08:09] LABS: Creatinine Clr Calc Pharmacy 49.9 ml/min; Est GFR (African American) 61.9 ml/min; Est GFR (Non-African American) 53.4 ml/min; Potassium 3.2 mmol/L (3.5-5.1)
[2021-03-01] MEDS ORDERED: POTASSIUM CHLORIDE CRTAB 20 MEQ TABCR PO SCH (08:30)
[2021-03-01] MEDS: FAMOTIDINE 20 MG TAB PO SCH (08:55)
[2021-03-01] MEDS: METOPROLOL SUCC 25MG EXT REL TAB PO SCH ×2 (08:55→21:45)
[2021-03-01] MEDS: MONTELUKAST SODIUM 10 MG TABLET PO SCH (08:56)
[2021-03-01] MEDS: ESCITALOPRAM OXALATE 10 MG TAB PO SCH (08:56)
[2021-03-01] MEDS: ROFLUMILAST 500 MCG TAB PO SCH (08:56)
[2021-03-01] MEDS: FUROSEMIDE 20 MG TAB PO SCH (08:56)
[2021-03-01] MEDS: MAGNESIUM OXIDE 400 MG TAB PO SCH ×2 (08:57→21:45)
[2021-03-01] MEDS: PANTOprazole 40 MG TAB PO SCH ×2 (08:57→21:46)
[2021-03-01] MEDS: SPIRONOLACTONE 100 MG TAB PO SCH (08:57)
[2021-03-01] MEDS: SUCRALFATE 1 GM TAB PO SCH ×4 (08:57→21:44)
[2021-03-01] MEDS ORDERED: INSULIN HUMAN NPH SC SCH (09:00)
[2021-03-01] MEDS: dexAMETHasone 6 MG in SYRINGE 0 ML IV SCH (12:47)
[2021-03-01] MEDS: ALBUT/IPRATROP 3MG/0.5MG NEB 3 ML VIAL NEB SCH ×3 (14:53→23:04)
--- NOTE | 2021-03-01 15:29 | XRay Report ---
XR chest 1V portable CLINICAL HISTORY: eval for progression of covid pnx COMPARISON STUDY: February 27, 2021 FINDINGS: No pneumothorax. No pleural effusion. Reticular nodular opacities which seen within bilateral lower lungs are unchanged on the right and sl ightly improved on the left. Minimal elevation of the left hemidiaphragm is seen. Cardiomediastinal silhouette is within normal limits in size. No significant pulmonary vascular congestion.. Aorta is calcified. Osseous structures: unremarkable IMPRESSION: 1. Mild interval improvement of reticular nodular opacities at the left mid to lower lung region. Op acities at the right lower lung are unchanged since prior. ACT 112: Negative or not required by law. The above report was generated using voice recognition software. It may contain grammatical, syntax o r spelling errors. Electronically signed by: Christie Stock DO 03/01/2021 3:28 PM
[2021-03-01] MEDS ORDERED: LORazepam 0.5 MG/1 ML VIAL IV PRN (16:06)
[2021-03-01] MEDS ORDERED: LORazepam 0.5 MG TAB PO PRN (16:06)
--- NOTE | 2021-03-01 16:13 | Hospitalist Progress Note ---
Date of Service March 01, 2021 Assessment & Plan (1) COPD exacerbation: Mini Clemons is a 75-year-old female with past medical history significant for hypertension, pulmonary embolism on chronic anticoagulation, COPD, CHF; who presents for concerns of abdominal pain and shortness of breath o jeremy the last several days. COPD exacerbation: COVID-19 infection, patient's GI symptoms loss of smell and fatigue began approximately 4 weeks prior to presentation and 1 week prior to her first Covid vaccine -CT chest demonstrating signs of COPD exacerbation versus pneumonia -Pro-Jean Claude negative -Received multiple rounds of duo nebs in ED with no resolution of symptoms -On chronic oxygen at home (2 L nasal cannula) now on 3 L of oxygen Due to the commingled diagnosis of COPD exacerbation and Covid we will change her steroids to dexamethasone. She is out of the timeframe for remdesivir. She is not yet having significant inflammatory phase of reaction to qualify for tocilizumab watch expectantly for oxygen saturation changes and change in pulmonary examination she did feel slighlty more short of breath and was having a loose cough 03/01/21, cxr did not suggest any worsening of changes but in case there was a bacterial component with bronchitis, she was started on levequin to cover at ypical and gram negative bronchits, due to Qtc issues seroquel was held and ativan ordered for sleep Abdominal pain: Diarrhea consider Covid colitis however imaging does not support this symptoms however with persistent diarrhea may -Uncertain etiology of abdominal pain -CT abdomen pelvis demonstrating severe diverticulosis of the sigmoid colon; however, no acute inflammatory changes -Continue home Pepcid, Protonix, and Carafate History of pulmonary embolism: -Chronically on Xarelto -Additionally has IVC filter in place -Continue Xarelto while inpatient Hypertension: -Continue home antihypertensive regimen Hypothyroidism: -Continue home Synthroid Diet: Regular CODE STATUS: Full code DVT ppx: Continue home Xarelto (2) COVID-19: (3) Abdominal pain: Admission and Anticipated Discharge Date Admission Date: February 28, 2021 Supervising Physician Co-Signing Physician Notes Attending addendum: I have physically seen this patient, have supervised the medical residents activities, and agree with the H&P unless as otherwise noted. Assessment and Plan: COPD exacerbation/atypical pneumonia/COVID-19 infection Duonebs every 4 hours while awake and every 2 hours when necessary. Azithromycin 500 mg IV daily Guaifenesin extended release [address] twice daily [address] chest suggestive of atypical pneumonia in upper part of the lungs bilaterally Patient did receive 1 dose of COVID-[address] not auto claim representative of COVID-19, she will be treated more toward COPD exacerbation with atypical pneumonia Methylprednisolone 40 mg IV every 8 hours Add Pulmicort Respules 0.5 mg inhaled twice daily Continue Singulair and Daliresp Nasal cannula oxygen, titrate to keep pulse ox 92-94% Pulmonary embolism history/status post IVC filter- Continue Xarelto Remaining orders and notations as noted Subjective Patient feeling somewhat worse she is markedly tremulous and anxious feeling sob and worrying about her diagnosis of Covid. she is on 3 L of oxygen typically wearing 2 L of oxygen at home. Her presentation is likely combination of COPD exacerbation and some Covid sx. stat repeat cxr did not show advancement of ground glass changes infact seemed to improve Review of Systems Review of Systems: Moderate distress and fatigue no headache, no visual changes no speech or swallowing issues no chest pain, pressure or palpitations Shortness of breath dyspnea nonproductive cough no abdominal pain, mild nausea without, persistent loose bowel movements no dysuria, hematuria or frequency no focal joint pain or swelling no back pain, CVA tenderness or radicular pain no bruising, bleeding or rashes no focal signs of weakness or numbness or altered sensation no complaints of anxiety or depression.. Physical Exam Physical Exam: The patient appeared well nourished and normally developed. Vital signs as documented. Head exam is normocephalic atraumatic Neck is without JVD, thyromegaly, or carotid bruits. Lungs coarse with expiratory wheezing worse on the left Cardiac exam, Rhythm is regular.. No murmurs, rubs or gallops. Abdominal exam reveals normal bowel sounds, soft non tender, no masses Extremities are nonedematous and both pedal pulses are present Neurologic exam is alert and oriented, no focal loss of strength or sensation Skin is without bruises or rashes Psychologically is with anxiety Results & Data Results & Data ([facility]) Vital Signs (Past 12 Hours) Vital Signs Temp Pulse Resp BP Pulse Ox Pulse Ox 03/01/21 14:53 91 H 28 H 94 03/01/21 10:59 61 20 100 03/01/21 10:10 96 93 03/01/21 09:01 98.1 F 80 19 151/77 H 92 03/01/21 07:35 57 L 16 100 03/01/21 04:54 78 20 97 PG Care Time/CCT Total # of Minutes Spent Total Time Spent with Patient: Total time spent is greater than 50% in coordination of care (as documented) at patient's floor/unit and/or counseling patient: Coding Level of Care Code 27992 Subseq Hosp Care Lvl 3 Diagnoses COPD exacerbation J44.1 COVID-19 U07.1 Abdominal pain R10.9
[2021-03-01] MEDS: levoFLOXacin/D5W 750 MG/150 ML BAG IV SCH (16:27)
[2021-03-01] MEDS: RIVAROXABAN 20 MG TAB PO SCH (16:37)
[2021-03-01] MEDS: ALBUT/IPRATROP 3MG/0.5MG NEB 3 ML VIAL NEB PRN (17:16)
[2021-03-01] MEDS: INSULIN GLARGINE SOLOSTAR 100 UNITS/ML 3 ML PEN SQ SCH (21:35)
[2021-03-01] MEDS: MIRTAZAPINE TAB 15 MG TAB PO SCH (21:46)
[2021-03-01] MEDS: MELATONIN 3 MG TAB PO SCH (21:46)
[2021-03-02] MEDS: ALBUT/IPRATROP 3MG/0.5MG NEB 3 ML VIAL NEB SCH ×6 (03:21→22:28)
[2021-03-02] MEDS: LEVOTHYROXINE SODIUM 25 MCG TABLET PO SCH (04:38)
[2021-03-02 06:42] LABS: Hematocrit (blood only) 31.8 % (37-47); Hemoglobin 9.7 g/dL (12.0-16.0); Mean Corpuscular Hemoglobin 22.9 pg (25-34); Mean Corpuscular Hgb Conc 30.5 g/dL (32-36); Mean Corpuscular Volume 75.2 fL (80-100); Mean Platelet Volume 8.7 fL (7.4-10.4); Platelet Count 281 K/uL (130-400); RDW Coefficient of Variation 16.9 % (11.5-14.5); RDW Standard Deviation 46.7 fL (36.4-46.3); Red Blood Count 4.23 M/uL (4.2-5.4); White Blood Count 7.61 K/uL (4.8-10.8)
[2021-03-02 06:59] LABS: Eosinophils # (auto) 0.01 K/uL (0-0.5); Eosinophils % (auto) 0.1 %; Immature Granulocytes # (auto) 0.02 K/uL (0.00-0.02); Immature Granulocytes % (auto) 0.3 %; Lymphocytes # (auto) 0.95 K/uL (1.2-3.4); Lymphocytes % (auto) 12.5 %; Monocytes # (auto) 0.92 K/uL (0.11-0.59); Monocytes % (auto) 12.1 %; Neutrophils # (auto) 5.71 K/uL (1.4-6.5)
[2021-03-02 07:24] LABS: Calcium 8.5 mg/dl (8.5-10.1); Creatinine Clr Calc Pharmacy 51.4 ml/min; Est GFR (African American) 64.2 ml/min; Est GFR (Non-African American) 55.4 ml/min; Potassium 3.8 mmol/L (3.5-5.1)
[2021-03-02] MEDS: ACETAMINOPHEN 325 MG TAB PO PRN (08:38)
[2021-03-02] MEDS: PANTOprazole 40 MG TAB PO SCH ×2 (08:39→19:36)
[2021-03-02] MEDS: SUCRALFATE 1 GM TAB PO SCH ×2 (08:39→13:22)
[2021-03-02] MEDS: FAMOTIDINE 20 MG TAB PO SCH (08:39)
[2021-03-02] MEDS: SPIRONOLACTONE 100 MG TAB PO SCH (08:40)
[2021-03-02] MEDS: MONTELUKAST SODIUM 10 MG TABLET PO SCH (08:40)
[2021-03-02] MEDS: METOPROLOL SUCC 25MG EXT REL TAB PO SCH ×2 (08:40→19:32)
[2021-03-02] MEDS: ESCITALOPRAM OXALATE 10 MG TAB PO SCH (08:40)
[2021-03-02] MEDS: FUROSEMIDE 20 MG TAB PO SCH (08:40)
[2021-03-02] MEDS: ROFLUMILAST 500 MCG TAB PO SCH (08:40)
[2021-03-02] MEDS: MAGNESIUM OXIDE 400 MG TAB PO SCH ×2 (08:40→19:38)
[2021-03-02] MEDS: dexAMETHasone 6 MG in SYRINGE 0 ML IV SCH (08:41)
[2021-03-02] MEDS ORDERED: INSULIN HUMAN NPH SC SCH (09:00)
[2021-03-02] MEDS: INSULIN ASPART 100 UNITS/ML 3 ML PEN SC SCH ×4 (09:05→21:02)
[2021-03-02 09:56] LABS: Alanine Aminotransferase 15 U/L (12-78); Albumin Level 2.5 gm/dl (3.4-5.0); Alkaline Phosphatase 99 U/L (45-117); Aspartate Aminotransferase 16 U/L (15-37); Bilirubin Direct < 0.1 mg/dl (0-0.2); Bilirubin,Total 0.3 mg/dl (0.2-1); Total Protein 6.1 gm/dl (6.4-8.2)
--- NOTE | 2021-03-02 09:57 | Pharmacy Report ---
Pharmacy Glycemic Short Note 2 - Date of Service March 02, 2021 - Glycemic Short BSG Results (Last 24 hours): 03/01/21 03/01/21 03/01/21 12:59 17:07 21:42 Glucose POC Glucose 75 128 H 175 H 03/02/21 03/02/21 06:25 08:31 Glucose 82 POC Glucose 89 OUTPATIENT ANTIDIABETIC REGIMEN: * Lantus 15 units SQ HS * Humalog 12 units SQ AC * Metformin * A1c = 8.8% on 02/28/21 ASSESSMENT: 03/02 * Pt has received 76 units of insulin over the past 24hrs * 22 units of basal with Lantus * 36 units of NPH for steroid induced hyperglycemia * 18 units of bolus with NovoLog * BSGs [id number] mg/dl * AM fasting BSG slightly below goal range at 89 mg/dl this morning. Will decrease HS Lantus back to outpatient dosing * Will slightly lower NPH since patient has additional Lantus on board- may need to adjust tomorrow * Continue to titrate insulin to maintain BSGs below 180 mg/dl 02/28 * 75yo T2DM female with sub-adequate control of DM as an outpatient. Goal A1c would be <8% based on age/co-morbidities * Pt admitted with COPD Exacerbation + COVID19 infection. Pt received high dose steroids x 4 since admission * Prednisone 40mg PO in ED last night around 2200 * Solumedrol 40mg IV at 0100 * Solumedrol 40mg IV at 0900 * Dexamethasone 6mg IV today at 1130 which will continue daily starting tomorrow * Pt with SEVERE Hyperglycemia secondary to steroids, illness/infection, and baseline poor control. * NPH insulin is used to counteract the hyperglycemic effect of daily dosed steroids * The dose of NPH given is dependent on the steroid dose given * For doses of prednisone 40mg/day (or equivalent) or above the NPH dose should be 0.4 units/kg * NPH dosing above is given in addition to patients baseline basal + prandial insulin needs PLAN FOR INPATIENT GLYCEMIC CONTROL: * Hold outpatient oral diabetes medications (metformin); use SQ basal bolus in its place * Basal insulin * Reduce back to outpatient Lantus 15 units SQ HS * Steroid induced hyperglycemia * Decrease today since extra Lantus on board; NPH 30 units (0.33 units/kg) SQ daily with DXM (hold if DXM held or DC) * Bolus insulin: no change * NovoLog per scale ACHS or Q6hrs while NPO. Additional checks + coverage at 0000 & 0400 for sustained hyperglycemia * Goal Range: Low 110 mg/dL - High 140 mg/dL * Correction Factor: 20 mg/dL/unit * Nutritional / Prandial insulin per carb ratio of 1 unit per 6 grams CHO consumed PLAN FOR DISCHARGE: * TBD based on inpatient trends; likely insulin regimen will need adjusted to achieve A1c < 8%
[2021-03-02] MEDS: LORazepam 0.5 MG TAB PO PRN (11:33)
[2021-03-02] MEDS ORDERED: IPRATROPIUM BROMIDE/ALBUTEROL respimat INH INH SCH (13:14)
[2021-03-02] MEDS: ALBUT/IPRATROP 3MG/0.5MG NEB 3 ML VIAL NEB PRN (13:57)
--- NOTE | 2021-03-02 14:17 | Hospitalist Progress Note ---
Date of Service March 02, 2021 Assessment & Plan (1) COPD exacerbation: Mini Clemons is a 75-year-old female with past medical history significant for hypertension, pulmonary embolism on chronic anticoagulation, COPD, CHF; who presents for concerns of abdominal pain and shortness of breath o jeremy the last several days. COPD exacerbation: COVID-19 infection, patient's GI symptoms loss of smell and fatigue began approximately 4 weeks prior to presentation and 1 week prior to her first Covid vaccine Chronic respiratory failure with hypoxia with concern for acute on chronic changes currently -CT chest 02/28/2021mall patchy airspace opacities bilateral upper lobes demonstrated favoring atypical pneumonia emphysema this prompted initiation of levofloxacin therapy -Pro-Jean Claude negative -Received multiple rounds of duo nebs in ED with no resolution of symptoms patient complaining of not receiving duo nebs in a timely manner respiratory reinforced that they are giving her in a telemetry manner and she actually may be also using nebulizers from home in her room -On chronic oxygen at home (2 L nasal cannula) now on 5 L of oxygen Due to the commingled diagnosis of COPD exacerbation and Covid we did change her steroids to dexamethasone. She is out of the timeframe for remdesivir having stated that her symptoms of loss of taste and smell began 4 weeks prior to admission. She is not yet having significant inflammatory phase of reaction to qualify for tocilizumab watch expectantly for oxygen saturation changes and change in pulmonary examination she did feel slighlty more short of breath and was having a loose cough 03/01/21, cxr did not suggest any worsening of changes but in case there was a bacterial component with bronchitis, she was started on levequin to cover atypical and gram negative bronchits, due to Qtc issues seroquel was held and ativan ordered for sleep (2) COVID-19: Patient has positive COVID-19 testing loss of taste or smell 4 weeks prior to admission did have persistent loose bowel movements. Despite having her loss of taste and smell she reportedly presented to a immunization clinic where she received her first immunization approximately 3 weeks prior to admission (3) Abdominal pain: Abdominal pain: Diarrhea consider Covid colitis however imaging does not support this symptoms however with persistent diarrhea may -Uncertain etiology of abdominal pain -CT abdomen pelvis demonstrating severe diverticulosis of the sigmoid colon; however, no acute inflammatory changes -Continue home Pepcid, Protonix, and Carafate (4) Atrial fibrillation: Patient tachycardic on the morning of 03/02 moved to telemetry found to have atrial fibrillation. She is chronically anticoagulated with Xarelto for history of pulmonary embolism, she is not had a TSH checked for some time this to be checked in the morning as well as a troponin. Because of her Covid status it would be unlikely an echocardiogram could be performed at this time she is currently maintained on metoprolol succinate 25 twice daily and she will have extra metoprolol tartrate intravenously 5 mg as needed tachycardia. Both her COPD, her Covid status, and her albuterol can be prompting some more tachyarrhythmia (5) History of pulmonary embolism: History of pulmonary embolism: -Chronically on Xarelto -Additionally has IVC filter in place -Continue Xarelto while inpatient (6) Hypothyroidism: Hypothyroidism: -Continue home Synthroid, check TSH in the morning in case this is impactful on her atrial fibrillation (7) DVT prophylaxis: DVT ppx: Continue home Xarelto CODE STATUS: Full code Admission and Anticipated Discharge Date Admission Date: February 28, 2021 Subjective Challenging case. Patient increasingly dyspneic. Increase in oxygen requirements from 2 L to 5 L. Chest x-ray from 11/01 did not show progression with what would be consistent with Covid pneumonia. Patient is fully anticoagulated with Xarelto 20 making pulmonary embolism less likely her CRP has climbed dramatically she has become febrile. Patient started on levofloxacin remains on dexamethasone which she was initially started on for her COPD exacerbation and incidentally had Covid positive testing with some GI symptoms plus loss of taste and smell. Loss of taste and smell again approximately 4 weeks prior to admission Patient is increasingly dyspneic and tachycardic moved to telemetry found to be in atrial fibrillation with controlled ventricular rate around 110 pending repeat chest x-ray. Review of Systems Review of Systems: Moderate distress and fatigue no headache, no visual changes no speech or swallowing issues loss of taste and smell no chest pain, pressure or sensation of palpitations Continues with shortness of breath dyspnea plus a nonproductive cough no abdominal pain, mild nausea without, persistent loose bowel movements no dysuria, hematuria or frequency no focal joint pain or swelling no back pain, CVA tenderness or radicular pain no bruising, bleeding or rashes no focal signs of weakness or numbness or altered sensation no complaints of anxiety or depression.. Physical Exam Physical Exam: The patient appeared well nourished and normally developed. She is in moderate respiratory distress Vital signs as documented. Tachycardia with consideration of A. fib on the monitor pending EKG Head exam is normocephalic atraumatic Neck is without JVD, thyromegaly, or carotid bruits. Lungs continue to be coarse coarse continues with expiratory wheezing worse on the left Cardiac exam, sounds regular but is tachycardic shows to be atrial fib of the monitor.. No murmurs, rubs or gallops. Abdominal exam reveals normal bowel sounds, soft non tender, no masses Extremities are nonedematous and both pedal pulses are present Neurologic exam is alert and oriented, no focal loss of strength or sensation Skin is without bruises or rashes Psychologically is with anxiety Results & Data Results & Data ([facility]) Vital Signs (Past 12 Hours) Vital Signs Temp Pulse Pulse Resp BP Pulse Ox Pulse Ox 03/02/21 13:57 113 H 95 03/02/21 13:14 113 H 22 96 03/02/21 13:03 98.8 F 105 H 24 107/73 94 95 03/02/21 10:30 98.8 F 03/02/21 10:14 95 H 20 03/02/21 08:36 100.4 F H 116 H 22 114/78 94 03/02/21 07:17 63 24 99 03/02/21 03:21 65 22 94 PG Care Time/CCT Total # of Minutes Spent Total Time Spent with Patient: Total time spent is greater than 50% in coordination of care (as documented) at patient's floor/unit and/or counseling patient: Coding Level of Care Code 32918 Subseq Hosp Care Lvl 3 Diagnoses COPD exacerbation J44.1 COVID-19 U07.1 Abdominal pain R10.9 Atrial fibrillation I48.91 History of pulmonary embolism Z86.711 Hypothyroidism E03.9 DVT prophylaxis Z29.9
[2021-03-02] MEDS ORDERED: FUROSEMIDE 20 MG in SYRINGE 0 ML IV ONE (14:30)
[2021-03-02] MEDS ORDERED: ALBUTEROL HFA 8 GM INHALER INH SCH (15:00)
[2021-03-02] MEDS ORDERED: IPRATROPIUM BROMIDE HFA INHALER INH SCH (15:00)
[2021-03-02] MEDS ORDERED: LORazepam 0.5 MG/1 ML VIAL IV PRN (15:18)
[2021-03-02] MEDS: levoFLOXacin/D5W 750 MG/150 ML BAG IV SCH (16:05)
[2021-03-02] MEDS: RIVAROXABAN 20 MG TAB PO SCH (16:05)
--- NOTE | 2021-03-02 17:27 | XRay Report ---
SINGLE VIEW CHEST CLINICAL HISTORY: Pneumonia. FINDINGS: An AP, portable, upright chest radiograph is compared to study dated 03/01/2021 and correlat ed with chest CT dated 02/28/2021. The examination is degraded by portable technique and apical lordot ic positioning. The heart is enlarged noting atherosclerotic calcification of the thoracic aorta. Emp hysema and chronic interstitial thickening is similar to previous. There is increasing airspace conso lidation in the left mid to lower lung. A small left pleural effusion is noted. No pneumothorax is se en. The skeletal structures are osteopenic. The bony thorax is grossly intact. IMPRESSION: 1. Cardiomegaly and emphysema. 2. There is increasing airspace consolidation in the left mid to lower lung with a small left pleural effusion. The appearance is typical for pneumonia/aspiration pneumonitis. Radiographic follow-up to resolution is recommended. ACT 112: Negative or not required by law. Electronically signed by: Tee Terry M.D. 03/02/2021 5:26 PM
[2021-03-02] MEDS: METOPROLOL TARTRATE 1 MG/ML VIAL IV PRN ×2 (17:57→22:48)
[2021-03-02] MEDS: MELATONIN 3 MG TAB PO SCH (19:35)
[2021-03-02] MEDS: MIRTAZAPINE TAB 15 MG TAB PO SCH (19:37)
[2021-03-02] MEDS: INSULIN GLARGINE SOLOSTAR 100 UNITS/ML 3 ML PEN SQ SCH (21:03)
[2021-03-03] MEDS: ACETAMINOPHEN 325 MG TAB PO PRN (00:21)
[2021-03-03] MEDS: ALBUT/IPRATROP 3MG/0.5MG NEB 3 ML VIAL NEB PRN ×3 (01:34→23:37)
[2021-03-03] MEDS: ALBUT/IPRATROP 3MG/0.5MG NEB 3 ML VIAL NEB SCH ×4 (03:39→13:10)
[2021-03-03] MEDS: LEVOTHYROXINE SODIUM 25 MCG TABLET PO SCH (05:31)
[2021-03-03 07:48] LABS: BUN Creatinine Ratio 28.3 (10-20); Calcium 9.1 mg/dl (8.5-10.1); Creatinine Clr Calc Pharmacy 51.3 ml/min; Est GFR (African American) 64.2 ml/min; Est GFR (Non-African American) 55.4 ml/min; Magnesium 2.2 mg/dl (1.8-2.4); Potassium 3.7 mmol/L (3.5-5.1)
[2021-03-03 07:58] LABS: Thyroid Stimulating Hormone 1.17 uIu/ml (0.300-4.500); Troponin I 0.016 ng/ml (0-0.045)
[2021-03-03] MEDS: FAMOTIDINE 20 MG TAB PO SCH (08:55)
[2021-03-03] MEDS: PANTOprazole 40 MG TAB PO SCH ×2 (08:55→21:01)
[2021-03-03] MEDS: MONTELUKAST SODIUM 10 MG TABLET PO SCH (08:56)
[2021-03-03] MEDS: ESCITALOPRAM OXALATE 10 MG TAB PO SCH (08:56)
[2021-03-03] MEDS: THEOPHYLLINE 400 MG EXTENDED REL TAB PO SCH (08:56)
[2021-03-03] MEDS: SPIRONOLACTONE 100 MG TAB PO SCH (08:56)
[2021-03-03] MEDS: FUROSEMIDE 20 MG TAB PO SCH (08:57)
[2021-03-03] MEDS: METOPROLOL SUCC 25MG EXT REL TAB PO SCH (08:57)
[2021-03-03] MEDS: MAGNESIUM OXIDE 400 MG TAB PO SCH ×2 (08:58→21:01)
[2021-03-03] MEDS: INSULIN ASPART 100 UNITS/ML 3 ML PEN SC SCH ×4 (09:00→20:13)
[2021-03-03] MEDS: INSULIN HUMAN NPH SC SCH (09:10)
[2021-03-03] MEDS: dexAMETHasone 6 MG in SYRINGE 0 ML IV SCH (10:17)
[2021-03-03] MEDS: ROFLUMILAST 500 MCG TAB PO SCH (10:17)
[2021-03-03] MEDS: LORazepam 0.5 MG TAB PO PRN ×2 (10:22→17:21)
[2021-03-03] MEDS: COUGH DROP (SUGAR FREE) LOZ 24 LOZ/1 BOX BUCCAL PRN (10:22)
[2021-03-03] MEDS: METOPROLOL TARTRATE 1 MG/ML VIAL IV PRN (12:49)
--- NOTE | 2021-03-03 13:02 | Electrocardiogram Report ---
Test Reason : Blood Pressure : / mmHG Vent. Rate : 106 BPM Atrial Rate : 300 BPM P-R Int : 000 ms QRS Dur : 072 ms QT Int : 322 ms P-R-T Axes : 000 001 057 degrees QTc Int : 427 ms Atrial fibrillation with rapid ventricular response Abnormal ECG When compared with ECG of 27-FEB-2021 22:05, Atrial fibrillation has replaced Sinus rhythm Confirmed by Loyd Lawton ([id number]) on 03/03/2021 1:02:32 PM Referred By: REFERRED SELF Confirmed By:Roel Lawton
--- NOTE | 2021-03-03 14:39 | Pulmonary Consultation ---
Date of Consultation March 03, 2021 Assessment & Plan (1) Chronic respiratory failure with hypoxia: 75-year-old female with a past medical history COPD, chronic hypoxemic respiratory failure and diabetes mellitus who is currently in the hospital due to exacerbation of COPD and findings concerning for possible pneumonia. Acute on chronic hypoxic respiratory failure: Patient is currently requiring 4 L of oxygen. She is normally on 2 L of oxygen. Her left lower lobe appears to be atelectatic on chest x-ray imaging. Difficult to rule out pneumonia. Recommend repeating a procalcitonin level tomorrow morning. Will initiate vest therapy 4 times a day and Mucinex to help promote airway clearance. We will also add Perforomist and Pulmicort nebs given her underlying COPD. We will change her duo nebs to as needed as opposed to scheduled. She is COVID-19 positive and it is unclear how much of her acute illness is secondary to COVID-19. She reports that her symptoms started roughly 4 weeks ago, but given her underlying COPD, it is very difficult to discern what symptoms are secondary to COPD itself and what is secondary to the COVID-19 illness. She is only requiring low flow oxygen at this point and thus I would not recommend tocilizumab therapy. Tocilizumab can be considered if her oxygen requirements increase. Notably, her CRP value has increased to 15 mg/dL, but again, this is a nonspecific value which needs to be thought of in conjunction with her clinical picture. Infectious disease consultation is recommended if tocilizumab is to be considered further. Thank you for the consultation. We will continue to follow along with you. (2) COPD with emphysema: (3) COVID-19: (4) Atelectasis: (5) Acute and chronic respiratory failure with hypoxia: History of Present Illness Reason for Consultation: COVID-19 illness history of COPD Attending Physician: Gualberto Orta MD History of Present Illness 75-year-old female with a past medical history of COPD with emphysema, morbid obesity, chronic hypoxemic respiratory failure on 2 L of oxygen, history of pulmonary embolism. History of breast cancer who presented to the hospital on 02/28/2021 due to increasing shortness of breath and abdominal pain. She notes that her cough has been worsening and is occasionally productive of sputum. She is also relating that the room that she is currently in is very warm and that is causing her to feel more short of breath. She does not feel that she is improving much. With the nursing staff and respiratory therapist, was related that she is often using her own personal inhalers frequently. She was previously followed by Dr. Armendariz in May for COPD. Of note, she was found to be Covid positive on 02/27/2021. CT of the chest was completed on 02/28/2021 and small patchy airspace opacities were noted bilaterally lobes. These findings are concerning for atypical pneumonia. Chest x-ray completed yesterday demonstrated cardiomegaly and emphysema. Increasing airspace opacity was noted in the left lower lobe small effusion. Count is currently 7600. Procalcitonin on the was within normal limits. MRSA screen was not performed. She is currently on levofloxacin 750 mg daily. Allergies Allergy/AdvReac Type Severity Reaction Status Date / Time rabies vaccine, duck-embryo Allergy Severe HIVES Verified 02/27/21 23:12 ragweed pollen Allergy Unknown UNKNOWN Verified 02/27/21 23:12 tomato Allergy Unknown HIVES Verified 02/27/21 23:12 Home Medications Medication Instructions Recorded Confirmed Type Xarelto 20 mg PO QAM 02/10/19 02/27/21 History escitalopram oxalate 15 mg PO QAM 02/10/19 02/27/21 History famotidine 20 mg PO QAM 02/10/19 02/27/21 History levothyroxine 25 mcg PO QAM 02/10/19 02/27/21 History metformin 500 mg PO BID 02/10/19 02/27/21 History metoprolol succinate 25 mg PO BID 02/10/19 02/27/21 History mirtazapine 30 mg PO HS 02/10/19 02/27/21 History pantoprazole 40 mg PO BID 02/10/19 02/27/21 History potassium chloride 20 meq PO QAM 02/10/19 02/27/21 History quetiapine 200 mg PO HS 02/10/19 02/27/21 History spironolactone 100 mg PO QAM 02/10/19 02/27/21 History sucralfate 1 g PO ACHS 02/10/19 02/27/21 History magnesium oxide 400 mg PO BID 02/20/19 02/27/21 History Lantus Solostar U-100 Insulin 15 unit SUBCUT DAILY@2100 12/01/19 02/27/21 History insulin lispro [Humalog KwikPen 12 unit SUBCUT TIDM 05/22/20 02/27/21 History Insulin] albuterol sulfate 90 mcg/actuation 2 puff INHALATION Q6H PRN #18 g 06/05/20 02/27/21 Rx aerosol inhaler 21cen Vit-D [place] 400iu Chew 1 tab PO DAILY 02/27/21 02/27/21 History albuterol sulfate 2.5 mg INHALATION Q4 PRN 02/27/21 02/27/21 History budesonide 0.5 mg INHALATION BID 02/27/21 02/27/21 History furosemide 20 mg PO DAILY 02/27/21 02/27/21 History montelukast 10 mg PO DAILY 02/27/21 02/27/21 History polysaccharide iron complex 150 mg PO BID 02/27/21 02/27/21 History [Poly-Iron] roflumilast [Daliresp] 500 mcg PO DAILY 02/27/21 02/27/21 History theophylline [Rohit-24] 400 mg PO DAILY 02/27/21 02/27/21 History Patient History Medical History (Updated 03/03/21 @ 14:52 by Dennis Duron MD) Acute and chronic respiratory failure with hypoxia Acute on chronic combined systolic (congestive) and diastolic (congestive) heart failure Acute respiratory failure with hypoxia Atelectasis Breast cancer, right breast CHF (congestive heart failure) COPD (chronic obstructive pulmonary disease) COPD exacerbation Diabetes Elevated troponin Endocarditis KATHLEEN (generalized anxiety disorder) GERD (gastroesophageal reflux disease) GI bleed Hypoxia Major depression, recurrent, full remission MSSA (methicillin susceptible Staphylococcus aureus) septicemia Nausea & vomiting Obesity hypoventilation syndrome QT prolongation Septic thrombophlebitis Spinal abscess Syncope Vomiting and diarrhea Surgical History History of lumpectomy Family History Other Coronary heart disease Stroke Social History Smoking Status: Former smoker Second Hand Exposure: No; Do You Dip or Chew Tobacco: No; Tobacco Cessation Education Requested by Patient: No Hx Alcohol Use: No Hx Substance Use: No Preferred Language: Citizen Of [place] Communication Ability: Effective 3Rd Pressman Required: No Beliefs That Will Affect Care: None marital status: Single Current Living Situation: Alone Current Living Situation Comment: with caregiver current occupational status: retired How many Children do You have: 0 Other Information That Helps Us Care for You: No Feels Safe at Home: Yes Safety Concerns: Feels Safe At This Time Assistive Devices: Oxygen - Continuous Review of Systems Review of Systems: All systems reviewed & are unremarkable except as noted in HPI & below Physical Exam Constitutional: + ill appearing and + obese Eyes: PERRL, conjunctivae normal, anicteric sclerae ENMT: external ear and nose normal, oropharynx normal Respiratory: + tachypneic Auscultation: + rhonchi and + wheezes Cardiovascular: RRR, no murmur, no edema Gastrointestinal (Abdomen): normal bowel sounds, soft, nontender, no hepatosplenomegaly Musculoskeletal: no cyanosis or clubbing, extremities motor strength 5/5 Skin: no rashes, warm and dry Neurologic: PERRL, EOMI, accommodation nl, no face palsy, no dysarthria Psychiatric: A+Ox3, euthymic affect Results & Data Results & [facility] ([facility]) Vital Signs (Past 12 Hours) Vital Signs Temp Pulse Pulse Resp BP Pulse Ox Pulse Ox 03/03/21 13:10 96 H 20 96 03/03/21 13:00 94 03/03/21 12:49 125 H 03/03/21 11:11 99.3 F 80 20 138/99 93 03/03/21 11:07 92 H 18 93 03/03/21 07:46 91 H 20 97 03/03/21 07:08 99.1 F 81 20 118/71 99 03/03/21 04:37 98.8 F 101 H 22 97/58 L 98 03/03/21 03:40 97 H 26 H 92 Vital signs, labs and imaging reviewed PG Care Time/CCT Total # of Minutes Spent Total Time Spent with Patient: Total time spent is greater than 50% in coordination of care (as documented) at patient's floor/unit and/or counseling patient: Coding Level of Care Code 30835 Inpt Consult Level 5 Diagnoses Chronic respiratory failure with hypoxia J96.11 COPD with emphysema J43.9 COVID-19 U07.1 Atelectasis J98.11 Acute and chronic respiratory failure with hypoxia J96.21
[2021-03-03] MEDS: levoFLOXacin/D5W 750 MG/150 ML BAG IV SCH (17:20)
[2021-03-03] MEDS: RIVAROXABAN 20 MG TAB PO SCH (17:21)
[2021-03-03] MEDS ORDERED: STAT IV Infusion **Titration per Protocol STA (17:54)
[2021-03-03] MEDS ORDERED: dilTIAZem HCl 5 MG/ML 5 ML VIAL IV STA (17:54)
[2021-03-03] MEDS: dilTIAZem HCL 125 MG in DEXTROSE 5% 100 ML IV SCH (18:35)
[2021-03-03] MEDS: BUDESONIDE 0.25 MG/2 ML VIAL (PULMICORT) NEB SCH (19:24)
[2021-03-03] MEDS: FORMOTEROL 20 MCG/2 ML VIAL NEB SCH (19:24)
[2021-03-03] MEDS: INSULIN GLARGINE SOLOSTAR 100 UNITS/ML 3 ML PEN SQ SCH (20:14)
[2021-03-03] MEDS: MELATONIN 3 MG TAB PO SCH (20:59)
[2021-03-03] MEDS: guaiFENesin 600 MG TABCR PO SCH (21:00)
[2021-03-03] MEDS: MIRTAZAPINE TAB 15 MG TAB PO SCH (21:01)
[2021-03-04] MEDS: ALBUT/IPRATROP 3MG/0.5MG NEB 3 ML VIAL NEB PRN ×2 (03:01→15:14)
[2021-03-04] MEDS: LEVOTHYROXINE SODIUM 25 MCG TABLET PO SCH (06:03)
[2021-03-04 06:20] LABS: Hemoglobin 10.2 g/dL (12.0-16.0); Immature Granulocytes # (auto) 0.02 K/uL (0.00-0.02); Immature Granulocytes % (auto) 0.3 %; Lymphocytes # (auto) 0.59 K/uL (1.2-3.4); Lymphocytes % (auto) 8.2 %; Mean Corpuscular Hemoglobin 23.3 pg (25-34); Mean Corpuscular Hgb Conc 30.9 g/dL (32-36); Mean Corpuscular Volume 75.5 fL (80-100); Mean Platelet Volume 8.8 fL (7.4-10.4); Monocytes # (auto) 0.83 K/uL (0.11-0.59); Monocytes % (auto) 11.6 %; Neutrophils # (auto) 5.72 K/uL (1.4-6.5); Neutrophils % (auto) 79.9 %; Platelet Count 339 K/uL (130-400); RDW Coefficient of Variation 16.6 % (11.5-14.5); Red Blood Count 4.37 M/uL (4.2-5.4); White Blood Count 7.16 K/uL (4.8-10.8)
[2021-03-04] MEDS: dilTIAZem HCL 125 MG in DEXTROSE 5% 100 ML IV SCH ×2 (06:33→22:17)
[2021-03-04 06:58] LABS: BUN Creatinine Ratio 25.4 (10-20); Calcium 8.7 mg/dl (8.5-10.1); Est GFR (African American) 59.1 ml/min; Magnesium 2.1 mg/dl (1.8-2.4)
[2021-03-04] MEDS: BUDESONIDE 0.25 MG/2 ML VIAL (PULMICORT) NEB SCH ×2 (07:41→19:43)
[2021-03-04] MEDS: FORMOTEROL 20 MCG/2 ML VIAL NEB SCH ×2 (07:41→19:43)
[2021-03-04] MEDS: dexAMETHasone 6 MG in SYRINGE 0 ML IV SCH (08:10)
[2021-03-04] MEDS: FUROSEMIDE 20 MG TAB PO SCH (08:13)
[2021-03-04] MEDS: guaiFENesin 600 MG TABCR PO SCH ×2 (08:13→21:06)
[2021-03-04] MEDS: ESCITALOPRAM OXALATE 10 MG TAB PO SCH (08:14)
[2021-03-04] MEDS: SPIRONOLACTONE 100 MG TAB PO SCH (08:14)
[2021-03-04] MEDS: MONTELUKAST SODIUM 10 MG TABLET PO SCH (08:14)
[2021-03-04] MEDS: THEOPHYLLINE 400 MG EXTENDED REL TAB PO SCH (08:14)
[2021-03-04] MEDS: MAGNESIUM OXIDE 400 MG TAB PO SCH ×2 (08:14→21:08)
[2021-03-04] MEDS: FAMOTIDINE 20 MG TAB PO SCH (08:14)
[2021-03-04] MEDS: ROFLUMILAST 500 MCG TAB PO SCH (08:14)
[2021-03-04] MEDS: PANTOprazole 40 MG TAB PO SCH ×2 (08:15→21:08)
[2021-03-04] MEDS: INSULIN ASPART 100 UNITS/ML 3 ML PEN SC SCH ×4 (08:38→20:53)
[2021-03-04] MEDS: INSULIN HUMAN NPH SC SCH (08:40)
[2021-03-04 08:51] LABS: C Reactive Protein 20.3 mg/dl (0-0.29)
--- NOTE | 2021-03-04 09:33 | Hospitalist Progress Note ---
Date of Service March 03, 2021 Assessment & Plan (1) Acute and chronic respiratory failure with hypoxia: Secondary to COVID-19 + COVID-19 pneumonia + atrial fibrillation with RVR (2) COPD exacerbation: -On chronic oxygen at home (2 L nasal cannula) now on 5 L of oxygen -Continue dexamethasone 6mg IV daily and duonebs as she feels some improvement with these -Continue her home maintenance inhalers -Consult pulmonology due to worsening respiratory status despite standard of care (3) COVID-19: ?4 weeks of symptoms although given continued fevers will treat test date as day #1 for isolation. - Given increasing CRP will consult pulmonology for consideration fo tocilizumab (4) Abdominal pain: Abdominal pain: Diarrhea consider Covid colitis however imaging does not support this symptoms however with persistent diarrhea may -Uncertain etiology of abdominal pain -CT abdomen pelvis demonstrating severe diverticulosis of the sigmoid colon; however, no acute inflammatory changes -Continue home Pepcid, Protonix, and Carafate - now resolved (5) Atrial fibrillation: New onset morning 03/02 TTE pending TSH WNL Given poor respiratory status with COPD will discontinue beta-blockers and switch to IV diltiazem for better rate control Anticoagulation with Xarelto (6) History of pulmonary embolism: History of pulmonary embolism: -Chronically on Xarelto -Additionally has IVC filter in place -Continue Xarelto while inpatient (7) Hypothyroidism: Hypothyroidism: -Continue home Synthroid, TSH WNL (8) DVT prophylaxis: DVT ppx: Continue home Xarelto CODE STATUS: Full code Admission and Anticipated Discharge Date Admission Date: February 28, 2021 Subjective Patient remains very dyspneic. She reports no significant difference from yesterday. Continued cough (she feels there is something there she cannot cough up). She mostly feels her temperature is fluctuating and has been anxious during the day time calling for her nurses to continually change the room temperature as she cannot get comfortable. Using her own inhalers as well as nebulizers by report. Febrile overnight but no blood cultures taken per previous communication order therefore they will be done this morning. She remains on levaquin although procalcitonin has remained negative. She does endorse COVID-19 symptoms for a 3-4 week period including fever, chills, shortness of breath, cough, loss of taste and smell, myalgias, sore throat, diarrhea, nausea/vomiting, nasal congestion and generalizedfatigue. Diarrhea now resolved. Remains in atrial fibrillation with rate not well controlled up to 150s. Review of Systems Review of Systems: All systems reviewed & are unremarkable except as noted in HPI & below Physical Exam Constitutional: well developed and + acute distress (respiratory); + not well nourished Eyes: + anicteric sclerae; normal pupil size ENMT: external ear and nose normal, oropharynx normal Respiratory: + respiratory distress, + labored breathing, + uses accessory muscles, + cough, + tachypneic, + prolonged expiratory phase and + pursed lip breathing Auscultation: + diminished lung sounds (throughout), + rales (throughout) and + wheezes (expiratory) Cardiovascular: Rate/Rhythm: + tachycardic and + irregularly irregular Heart Sounds: no murmur Extremities: normal capillary refill; no calf tenderness and no pedal edema Gastrointestinal (Abdomen): normal bowel sounds, soft, nontender, no h epatosplenomegaly Musculoskeletal: no cyanosis or clubbing, extremities motor strength 5/5 Skin: no rashes, warm and dry Neurologic: moves all extremities and awake; not confused Psychiatric: A+Ox3, euthymic affect Results & Data Results & [facility] ([facility]) Vital Signs (Past 12 Hours) Vital Signs Temp Pulse Pulse Pulse Resp BP Pulse Ox 03/04/21 08:26 36.7 C 96 H 26 H 111/65 95 03/04/21 08:00 97 H 03/04/21 07:42 92 H 20 95 03/04/21 03:01 96 H 12 92 03/03/21 23:38 96 H 20 93 03/03/21 23:30 37.4 C 99 H 17 118/73 94 PG Care Time/CCT Total # of Minutes Spent Total Time Spent with Patient: Total time spent is greater than 50% in coordination of care (as documented) at patient's floor/unit and/or counseling patient: Coding Level of Care Code 00129 Subseq Hosp Care Lvl 3 Diagnoses Acute and chronic respiratory failure with hypoxia J96.21 COPD exacerbation J44.1 COVID-19 U07.1 Abdominal pain R10.9 Atrial fibrillation I48.91 History of pulmonary embolism Z86.711 Hypothyroidism E03.9 DVT prophylaxis Z29.9
--- NOTE | 2021-03-04 09:56 | Pulmonology Progress Note ---
Date of Service March 04, 2021 Assessment & Plan (1) Chronic respiratory failure with hypoxia: 75-year-old female with a past medical history COPD, chronic hypoxemic respiratory failure and diabetes mellitus who is currently in the hospital due to exacerbation of COPD and findings concerning for possible pneumonia. Patient is my clinic patient. I saw her on in the clinic 06/05/2020. She was supposed to follow-up in 3 months after that but she has not yet followed up with me since than. CT chest 02/28/2021 personally reviewed: Centrilobular and paraseptal emphysema appreciated, bullous disease appreciated in the right upper lobe Loss opacity inferior lobe of the lingula. No mediastinal adenopathy --Acute on chronic hypoxic respiratory failure Multifactorial COPD exacerbation on top of COVID-19 playing a role Continue with dexamethasone for total of 10 days COVID-19 positive 02/27/2021 CRP:11-->15-->20 Continue with O2 supplementation to keep O2 saturation between 88-92% --COPD with emphysema Continue with budesonide and Brovana Duo nebs as needed --History of PE On Xarelto Plan: Patient is -3.9 L since coming to the hospital. Would recommend continuing with diuresis. Patient CRP is trending up. Today was 20. Patient is requiring 4 L of nasal cannula saturating well. Not in acute respiratory distress. Patient did have new onset A. fib. Currently on diltiazem drip. I do think uncontrolled heart rate was playing a role in her shortness of breath as well. Given the heart rate is better controlled now she should feel better. On the CAT scan done 02/28/2021 there was no significant infiltrates appreciated. Patient is already on Xarelto. I would recommend continuing with dexamethasone. Incentive spirometry and flutter valve. Patient anxiety is definitely playing a role on top of the above. She is on escitalopram 15 mg. Would recommend considering to increase it to 20 mg with a maximum dose. Case discussed with RN and Dr. Orta Please note the above document was generated using voice recognition software. It may contain grammatical, syntax or spelling errors.Any formal questions or concerns about the content, text or information contained within the body of this dictation should be directly addressed to the provider for clarification. (2) COPD with emphysema: (3) COVID-19: (4) Atelectasis: (5) Acute and chronic respiratory failure with hypoxia: Admission and Anticipated Discharge Date Admission Date: February 28, 2021 Subjective Patient bedside. Acute distress, no adverse events overnight. Patient was saturating 92% on 4 L nasal cannula at rest without any respiratory distress. Denies any chest pain. She does say she has cough but she is not able to bring up any phlegm. She has been using chest vest therapy. No nausea or vomiting. She states she is feeling better compared to coming to the hospital. She was on diltiazem drip at 10 at the time of examination. Review of Systems Review of Systems: All systems reviewed & are unremarkable except as noted in Subjective Physical Exam Physical Exam: Constitutional: No acute distress HEENT: EOMI, PERRLA Respiratory system: Decreased air entry bilaterally, no wheeze, rhonchi, positive crackles bilaterally CVS: S1-S2 positive, no murmurs or gallops Abdomen: Soft, nontender, nondistended, positive bowel sounds x4, obese Extremities: +2 pulses bilaterally radialis/ dorsalis pedis, no cyanosis, no edema Neuro: Awake alert oriented x3 Psych: Normal mood and affect G/U: No Jackson Skin: no rashes, warm and dry Lymphatic: no cervical or axillary lymphadenopathy Results & Data Results & Data ([facility]) Vital Signs (Past 12 Hours) Vital Signs Temp Pulse Pulse Pulse Resp BP Pulse Ox 03/04/21 08:26 36.7 C 96 H 26 H 111/65 95 03/04/21 08:00 97 H 03/04/21 07:42 92 H 20 95 03/04/21 03:01 96 H 12 92 03/03/21 23:38 96 H 20 93 03/03/21 23:30 37.4 C 99 H 17 118/73 94 03/04/21 05:49 03/04/21 05:49 PG Care Time/CCT Total # of Minutes Spent Total Time Spent with Patient: Total time spent is greater than 50% in coordination of care (as documented) at patient's floor/unit and/or counseling patient: Coding [place] [address] Subseq Hosp Care Lvl 3 Patient Type Established Diagnoses Chronic respiratory failure with hypoxia J96.11 COPD with emphysema J43.9 COVID-19 U07.1 Atelectasis J98.11 Acute and chronic respiratory failure with hypoxia J96.21
--- NOTE | 2021-03-04 12:26 | Pharmacy Report ---
Pharmacy Glycemic Short Note 2 - Date of Service March 04, 2021 - Glycemic Short BSG Results (Last 24 hours): 03/03/21 03/03/21 03/04/21 16:50 20:09 05:49 Glucose 144 H POC Glucose 180 H 167 H 03/04/21 12:16 Glucose POC Glucose 167 H OUTPATIENT ANTIDIABETIC REGIMEN: * Lantus 15 units SQ HS * Humalog 12 units SQ AC * Metformin * A1c = 8.8% on 02/28/21 ASSESSMENT: 03/04: * Patient received a total of 50 units of insulin yesterday (25 units NPH, 15 units lantus, 10 units novolog) * Fasting BSG increased today, will slightly increase evening Lantus dose. Of note, after IV dexamethasone 6mg dose this morning, the dose will be increased to 10 mg IV tomorrow morning. Will assess need for NPH increase at that time. May consider tightening NovoLog again pending today's postprandial trends 03/02 * Pt has received 76 units of insulin over the past 24hrs * 22 units of basal with Lantus * 36 units of NPH for steroid induced hyperglycemia * 18 units of bolus with NovoLog * BSGs [id number] mg/dl * AM fasting BSG slightly below goal range at 89 mg/dl this morning. Will decrease HS Lantus back to outpatient dosing * Will slightly lower NPH since patient has additional Lantus on board- may need to adjust tomorrow * Continue to titrate insulin to maintain BSGs below 180 mg/dl 02/28 * 75yo T2DM female with sub-adequate control of DM as an outpatient. Goal A1c would be <8% based on age/co-morbidities * Pt admitted with COPD Exacerbation + COVID19 infection. Pt received high dose steroids x 4 since admission * Prednisone 40mg PO in ED last night around 2200 * Solumedrol 40mg IV at 0100 * Solumedrol 40mg IV at 0900 * Dexamethasone 6mg IV today at 1130 which will continue daily starting tomorrow * Pt with SEVERE Hyperglycemia secondary to steroids, illness/infection, and baseline poor control. * NPH insulin is used to counteract the hyperglycemic effect of daily dosed steroids * The dose of NPH given is dependent on the steroid dose given * For doses of prednisone 40mg/day (or equivalent) or above the NPH dose should be 0.4 units/kg * NPH dosing above is given in addition to patients baseline basal + prandial insulin needs PLAN FOR INPATIENT GLYCEMIC CONTROL: * Hold outpatient oral diabetes medications (metformin); use SQ basal bolus in its place * Basal insulin * Increase Lantus to 18 units SQ HS * Steroid induced hyperglycemia * Continue NPH 25 units SQ daily with DXM (hold if DXM held or DC) * Bolus insulin: no change * NovoLog per scale ACHS or Q6hrs while NPO. * Goal Range: Low 110 mg/dL - High 140 mg/dL * Correction Factor: 25 mg/dL/unit * Nutritional / Prandial insulin per carb ratio of 1 unit per 7 grams CHO consumed PLAN FOR DISCHARGE: * TBD based on inpatient trends; likely insulin regimen will need adjusted to achieve A1c < 8%
--- NOTE | 2021-03-04 13:13 | XCELERA ---
[id number] \\[id number]
[2021-03-04] MEDS: COUGH DROP (SUGAR FREE) LOZ 24 LOZ/1 BOX BUCCAL PRN (13:46)
--- NOTE | 2021-03-04 16:38 | Hospitalist Progress Note ---
Date of Service March 04, 2021 Assessment & Plan (1) Acute and chronic respiratory failure with hypoxia: Secondary to COPD exacerbation + COVID-19 pneumonia + atrial fibrillation with RVR (2) COPD exacerbation: -On chronic oxygen at home (2 L nasal cannula) now on 4 L of oxygen -Continue dexamethasone (increased to 10mg IV daily per pulmonology) and duonebs -incentive spirometry, flutter valve -Continue her home maintenance inhalers -Consult pulmonology due to worsening respiratory status despite standard of care (3) COVID-19: ?4 weeks of symptoms although given continued fevers will treat test date as day #1 for isolation. - Appreciate pulmonology recommendations, despite rising CRP oxygen requirement actually down today. (4) Abdominal pain: Abdominal pain: Diarrhea consider Covid colitis however imaging does not support this symptoms however with persistent diarrhea may -Uncertain etiology of abdominal pain -CT abdomen pelvis demonstrating severe diverticulosis of the sigmoid colon; however, no acute inflammatory changes -Continue home Pepcid, Protonix, and Carafate - now resolved (5) Atrial fibrillation: New onset morning 03/02 TTE normal LVEF, no significant change from 2018 TSH WNL Given poor respiratory status with COPD, BB discontinued, now better controlled with IV diltiazem 10mg /hr therefore will switch to 90mg PO TID Anticoagulation with Xarelto (6) History of pulmonary embolism: History of pulmonary embolism: -Chronically on Xarelto -Additionally has IVC filter in place (7) Hypothyroidism: Hypothyroidism: -Continue home Synthroid, TSH WNL (8) DVT prophylaxis: DVT ppx: Continue home Xarelto CODE STATUS: Full code Admission and Anticipated Discharge Date Admission Date: February 28, 2021 Subjective Patient appears to be much less short of breath today with better rate control on diltiazem IV drip. No chest pain. Continued purse lip breathing. Nebulizers helping her cough up mucus better today. No further fever or chills (last fever on 03/03). Review of Systems Review of Systems: All systems reviewed & are unremarkable except as noted in HPI & below Physical Exam Constitutional: well developed and + acute distress (respiratory); + not well nourished Eyes: + anicteric sclerae; normal pupil size ENMT: external ear and nose normal, oropharynx normal Respiratory: + respiratory distress, + labored breathing, + uses accessory muscles, + cough, + tachypneic, + prolonged expiratory phase and + pursed lip breathing Auscultation: + diminished lung sounds (throughout), + rales (throughout) and + wheezes (expiratory) Cardiovascular: Rate/Rhythm: + tachycardic and + irregularly irregular Heart Sounds: no murmur Extremities: normal capillary refill; no calf tenderness and no pedal edema Gastrointestinal (Abdomen): normal bowel sounds, soft, nontender, no hepatosplenomegaly Musculoskeletal: no cyanosis or clubbing, extremities motor strength 5/5 Skin: no rashes, warm and dry Neurologic: moves all extremities and awake; not confused Psychiatric: A+Ox3, euthymic affect Results & Data Results & Data ([facility]) Vital Signs (Past 12 Hours) Vital Signs Temp Pulse Pulse Resp BP Pulse Ox Pulse Ox 03/04/21 15:16 104 H 20 92 03/04/21 14:02 93 03/04/21 13:50 03/04/21 13:00 95 03/04/21 08:26 36.7 C 96 H 26 H 111/65 95 03/04/21 08:00 97 H 03/04/21 07:42 92 H 20 95 Pulse Ox 03/04/21 15:16 03/04/21 14:02 03/04/21 13:50 96 03/04/21 13:00 03/04/21 08:26 03/04/21 08:00 03/04/21 07:42 PG Care Time/CCT Total # of Minutes Spent Total Time Spent with Patient: Total time spent is greater than 50% in coordin ation of care (as documented) at patient's floor/unit and/or counseling patient: Coding Level of Care Code 54277 Subseq Hosp Care Lvl 2 Diagnoses Acute and chronic respiratory failure with hypoxia J96.21 COPD exacerbation J44.1 COVID-19 U07.1 Abdominal pain R10.9 Atrial fibrillation I48.91 History of pulmonary embolism Z86.711 Hypothyroidism E03.9 DVT prophylaxis Z29.9
[2021-03-04] MEDS: levoFLOXacin/D5W 750 MG/150 ML BAG IV SCH (16:59)
[2021-03-04] MEDS: RIVAROXABAN 20 MG TAB PO SCH (16:59)
[2021-03-04] MEDS: INSULIN GLARGINE SOLOSTAR 100 UNITS/ML 3 ML PEN SQ SCH (20:54)
[2021-03-04] MEDS: dilTIAZem HCL 30 MG TAB PO SCH (21:04)
[2021-03-04] MEDS: MIRTAZAPINE TAB 15 MG TAB PO SCH (21:11)
[2021-03-04] MEDS: MELATONIN 3 MG TAB PO SCH (21:14)
[2021-03-05] MEDS: ALBUT/IPRATROP 3MG/0.5MG NEB 3 ML VIAL NEB PRN ×3 (02:27→15:27)
[2021-03-05] MEDS: LEVOTHYROXINE SODIUM 25 MCG TABLET PO SCH (06:43)
[2021-03-05] MEDS: BUDESONIDE 0.25 MG/2 ML VIAL (PULMICORT) NEB SCH ×2 (07:11→18:43)
[2021-03-05] MEDS: FORMOTEROL 20 MCG/2 ML VIAL NEB SCH ×2 (07:11→18:43)
[2021-03-05 07:32] LABS: BUN Creatinine Ratio 27.3 (10-20); Calcium 8.7 mg/dl (8.5-10.1); Creatinine Clr Calc Pharmacy 49.4 ml/min; Est GFR (African American) 61.9 ml/min; Est GFR (Non-African American) 53.4 ml/min; Magnesium 2.4 mg/dl (1.8-2.4); Potassium 4.3 mmol/L (3.5-5.1)
[2021-03-05] MEDS: dexAMETHasone 6 MG in SYRINGE 0 ML IV SCH (08:39)
[2021-03-05] MEDS: dilTIAZem HCL 30 MG TAB PO SCH ×3 (08:40→21:20)
[2021-03-05] MEDS: ESCITALOPRAM OXALATE 10 MG TAB PO SCH (08:41)
[2021-03-05] MEDS: FUROSEMIDE 20 MG TAB PO SCH (08:42)
[2021-03-05] MEDS: FAMOTIDINE 20 MG TAB PO SCH (08:42)
[2021-03-05] MEDS: MONTELUKAST SODIUM 10 MG TABLET PO SCH (08:43)
[2021-03-05] MEDS: MAGNESIUM OXIDE 400 MG TAB PO SCH ×2 (08:43→19:41)
[2021-03-05] MEDS: guaiFENesin 600 MG TABCR PO SCH ×2 (08:43→19:42)
[2021-03-05] MEDS: THEOPHYLLINE 400 MG EXTENDED REL TAB PO SCH (08:44)
[2021-03-05] MEDS: ROFLUMILAST 500 MCG TAB PO SCH (08:44)
[2021-03-05] MEDS: PANTOprazole 40 MG TAB PO SCH ×2 (08:44→19:43)
[2021-03-05] MEDS: SPIRONOLACTONE 100 MG TAB PO SCH (08:45)
[2021-03-05] MEDS ORDERED: dexAMETHasone 10 MG in SYRINGE 0 ML IV SCH (09:00)
[2021-03-05] MEDS ORDERED: INSULIN HUMAN NPH SC SCH (09:00)
[2021-03-05] MEDS: INSULIN ASPART 100 UNITS/ML 3 ML PEN SC SCH ×4 (09:03→21:33)
--- NOTE | 2021-03-05 12:37 | Pulmonology Progress Note ---
Date of Service March 05, 2021 Assessment & Plan (1) Chronic respiratory failure with hypoxia: 75-year-old female with a past medical history COPD, chronic hypoxemic respiratory failure and diabetes mellitus who is currently in the hospital due to exacerbation of COPD and findings concerning for possible pneumonia. Patient is my clinic patient. I saw her on in the clinic 06/05/2020. She was supposed to follow-up in 3 months after that but she has not yet followed up with me since than. CT chest 02/28/2021 personally reviewed: Centrilobular and paraseptal emphysema appreciated, bullous disease appreciated in the right upper lobe Loss opacity inferior lobe of the lingula. No mediastinal adenopathy --Acute on chronic hypoxic respiratory failure Multifactorial COPD exacerbation on top of COVID-19 playing a role Continue with dexamethasone for total of 10 days COVID-19 positive 02/27/2021 CRP:11-->15-->20 Continue with O2 supplementation to keep O2 saturation between 88-92% --COPD with emphysema Continue with budesonide and Brovana while in the hospital Duo nebs as needed On discharge continue with Trelegy, Roflumilast. --History of PE On Xarelto Plan: Continue with incentive spirometry and flutter valve. Complete the course of dexamethasone for total 10 days. Continue with diuresis. Pulmonary status seems to be stable. Pulmonary will follow peripherally. Call directly with any questions Please note the above document was generated using voice recognition software. It may contain grammatical, syntax or spelling errors.Any formal questions or concerns about the content, text or information contained within the body of this dictation should be directly addressed to the provider for clarification. (2) COPD with emphysema: (3) COVID-19: (4) Atelectasis: (5) Acute and chronic respiratory failure with hypoxia: Admission and Anticipated Discharge Date Admission Date: February 28, 2021 Subjective Patient was seen from the glass window. Not in acute distress. Saturating 92-93% on 3 L nasal cannula. Respiratory rate high teens to low 20s. Has been afebrile. Review of Systems Review of Systems: Other Physical Exam Physical Exam: Patient not examined due to coronavirus restrictions and attempts to minimize exposure to staff and consider PPE. Please refer to the hospitalist exam for complete details. Results & Data Results & Data ([facility]) Vital Signs (Past 12 Hours) Vital Signs Temp Pulse Resp BP Pulse Ox 03/05/21 10:56 99 H 20 93 03/05/21 07:57 36.6 C 98 H 19 131/67 93 03/05/21 07:11 87 20 93 03/05/21 04:18 37.1 C 96 H 20 148/80 H 90 03/05/21 02:28 86 20 94 03/04/21 05:49 03/05/21 06:34 PG Care Time/CCT Total # of Minutes Spent Total Time Spent with Patient: Total time spent is greater than 50% in coordination of care (as documented) at patient's floor/unit and/or counseling patient: Coding Level of Care Code 70405 Subseq Hosp Care Lvl 2 Diagnoses Chronic respiratory failure with hypoxia J96.11 COPD with emphysema J43.9 COVID-19 U07.1 Atelectasis J98.11 Acute and chronic respiratory failure with hypoxia J96.21
--- NOTE | 2021-03-05 13:25 | Pharmacy Report ---
Pharmacy Glycemic Short Note 2 - Date of Service March 05, 2021 - Glycemic Short BSG Results (Last 24 hours): 03/04/21 03/04/21 03/05/21 17:08 20:24 06:34 Glucose 161 H POC Glucose 298 H 153 H 03/05/21 03/05/21 08:01 12:03 Glucose POC Glucose 159 H 228 H OUTPATIENT ANTIDIABETIC REGIMEN: * Lantus 15 units SQ HS * Humalog 12 units SQ AC * Metformin * A1c = 8.8% on 02/28/21 ASSESSMENT: 03/05: * Patient received a total of 6o units of insulin yesterday, 43 of which were basal. Dinner BSG elevated yesterday. Will tighten novolog and increase NPH dose to be given with dexamethasone. Continue current lantus dose. 03/04: * Patient received a total of 50 units of insulin yesterday (25 units NPH, 15 units lantus, 10 units novolog) * Fasting BSG increased today, will slightly increase evening Lantus dose. Of note, after IV dexamethasone 6mg dose this morning, the dose will be increased to 10 mg IV tomorrow morning. Will assess need for NPH increase at that time. May consider tightening NovoLog again pending today's postprandial trends 03/02 * Pt has received 76 units of insulin over the past 24hrs * 22 units of basal with Lantus * 36 units of NPH for steroid induced hyperglycemia * 18 units of bolus with NovoLog * BSGs [id number] mg/dl * AM fasting BSG slightly below goal range at 89 mg/dl this morning. Will decrease HS Lantus back to outpatient dosing * Will slightly lower NPH since patient has additional Lantus on board- may need to adjust tomorrow * Continue to titrate insulin to maintain BSGs below 180 mg/dl 02/28 * 75yo T2DM female with sub-adequate control of DM as an outpatient. Goal A1c would be <8% based on age/co-morbidities * Pt admitted with COPD Exacerbation + COVID19 infection. Pt received high dose steroids x 4 since admission * Prednisone 40mg PO in ED last night around 2200 * Solumedrol 40mg IV at 0100 * Solumedrol 40mg IV at 0900 * Dexamethasone 6mg IV today at 1130 which will continue daily starting tomorrow * Pt with SEVERE Hyperglycemia secondary to steroids, illness/infection, and baseline poor control. * NPH insulin is used to counteract the hyperglycemic effect of daily dosed steroids * The dose of NPH given is dependent on the steroid dose given * For doses of prednisone 40mg/day (or equivalent) or above the NPH dose should be 0.4 units/kg * NPH dosing above is given in addition to patients baseline basal + prandial insulin needs PLAN FOR INPATIENT GLYCEMIC CONTROL: * Hold outpatient oral diabetes medications (metformin); use SQ basal bolus in its place * Basal insulin * Increase Lantus to 18 units SQ HS * Steroid induced hyperglycemia * Continue NPH 30 units SQ daily with DXM (hold if DXM held or DC) * Bolus insulin: no change * NovoLog per scale ACHS or Q6hrs while NPO. * Goal Range: Low 110 mg/dL - High 140 mg/dL * Correction Factor: 20 mg/dL/unit * Nutritional / Prandial insulin per carb ratio of 1 unit per 6 grams CHO consumed PLAN FOR DISCHARGE: * TBD based on inpatient trends; likely insulin regimen will need adjusted to achieve A1c < 8%
[2021-03-05] MEDS: RIVAROXABAN 20 MG TAB PO SCH (16:38)
[2021-03-05] MEDS: levoFLOXacin/D5W 750 MG/150 ML BAG IV SCH (16:59)
--- NOTE | 2021-03-05 19:22 | Hospitalist Progress Note ---
Date of Service March 05, 2021 Assessment & Plan (1) Acute and chronic respiratory failure with hypoxia: Secondary to COPD exacerbation + COVID-19 pneumonia + atrial fibrillation with RVR. Now close to baseline. (2) COPD exacerbation: -On chronic oxygen at home (2 L nasal cannula) now on 3 L of oxygen -Procalcitonin persistently negative therefore will stop Levaquin after 5 day course (last day today). -Continue dexamethasone (10 day course per pulm recommendations) and duonebs -incentive spirometry, flutter valve -Continue budesonide and performist nebulizers in place of her usual maintenance inhalers per pulm recommendations. -Consult pulmonology due to worsening respiratory status despite standard of care (3) COVID-19: ?4 weeks of symptoms although given continued fevers will treat test date as day #1 for isolation. - Appreciate pulmonology recommendations, despite rising CRP oxygen requirement down/stable. (4) Abdominal pain: Abdominal pain: Diarrhea consider Covid colitis however imaging does not support this symptoms however with persistent diarrhea may -Uncertain etiology of abdominal pain -CT abdomen pelvis demonstrating severe diverticulosis of the sigmoid colon; however, no acute inflammatory changes -Continue home Pepcid, Protonix, and Carafate - now resolved (5) Atrial fibrillation: New onset morning 03/02 TTE normal LVEF, no significant change from 2018 TSH WNL Given poor respiratory status with COPD, BB discontinued, now better controlled with diltiazem initially IV but now 90mg PO TID (can switch to extended release tomorrow) Anticoagulation with Xarelto (6) History of pulmonary embolism: History of pulmonary embolism: -Chronically on Xarelto -Additionally has IVC filter in place (7) Hypothyroidism: Hypothyroidism: -Continue home Synthroid, TSH WNL (8) DVT prophylaxis: DVT ppx: Continue home Xarelto CODE STATUS: Full code Admission and Anticipated Discharge Date Admission Date: February 28, 2021 Subjective No acute events overnight. Breathing remains much improved since rate control better. Now on PO diltiazem and rate remains well controlled. No chest pain. Continued pursed lip breathing. Refusing rehabilitation. Pulmonology recommends finishing full 10 day dexamethasone course. Continued productive cough. No further fever or chills (last fever on 03/03). Review of Systems Review of Systems: All systems reviewed & are unremarkable except as noted in HPI & below Physical Exam Constitutional: well developed and + acute distress (respiratory); + not well nourished Eyes: + anicteric sclerae; normal pupil size ENMT: external ear and nose normal, oropharynx normal Respiratory: + respiratory distress, + uses accessory muscles, + cough, + prolonged expiratory phase and + pursed lip breathing; no labored breathing and not tachypneic Auscultation: + diminished lung sounds (bibasal), + rales (mild throughout) and + wheezes (expiratory) Cardiovascular: Rate/Rhythm: regular rate and + irregularly irregular Heart Sounds: no murmur Extremities: normal capillary refill; no calf tenderness and no pedal edema Gastrointestinal (Abdomen): normal bowel sounds, soft, nontender, no hepatosplenomegaly Musculoskeletal: no cyanosis or clubbing, extremities motor strength 5/5 Skin: no rashes, warm and dry Neurologic: moves all extremities and awake; not confused Psychiatric: A+Ox3, euthymic affect Results & Data Results & Data ([facility]) Vital Signs (Past 12 Hours) Vital Signs Temp Pulse Resp BP Pulse Ox Pulse Ox 03/05/21 18:48 96 H 12 95 03/05/21 15:30 103 H 20 94 03/05/21 14:50 36.4 C L 100 H 20 141/76 H 93 03/05/21 13:00 95 03/05/21 10:56 99 H 20 93 03/05/21 07:57 36.6 C 98 H 19 131/67 93 PG Care Time/CCT Total # of Minutes Spent Total Time Spent with Patient: Total time spent is greater than 50% in coordination of care (as documented) at patient's floor/unit and/or counseling patient: Coding Level of Care Code 71602 Subseq Hosp Care Lvl 2 Diagnoses Acute and chronic respiratory failure with hypoxia J96.21 COPD exacerbation J44.1 COVID-19 U07.1 Abdominal pain R10.9 Atrial fibrillation I48.91 History of pulmonary embolism Z86.711 Hypothyroidism E03.9 DVT prophylaxis Z29.9
[2021-03-05] MEDS: MIRTAZAPINE TAB 15 MG TAB PO SCH (19:42)
[2021-03-05] MEDS: MELATONIN 3 MG TAB PO SCH (21:20)
[2021-03-05] MEDS: INSULIN GLARGINE SOLOSTAR 100 UNITS/ML 3 ML PEN SQ SCH (21:34)
[2021-03-06] MEDS: ALBUT/IPRATROP 3MG/0.5MG NEB 3 ML VIAL NEB PRN ×4 (01:37→15:13)
[2021-03-06] MEDS: COUGH DROP (SUGAR FREE) LOZ 24 LOZ/1 BOX BUCCAL PRN ×2 (01:43→21:41)
[2021-03-06] MEDS: LEVOTHYROXINE SODIUM 25 MCG TABLET PO SCH (05:40)
[2021-03-06] MEDS: FORMOTEROL 20 MCG/2 ML VIAL NEB SCH ×2 (07:19→18:58)
[2021-03-06] MEDS: BUDESONIDE 0.25 MG/2 ML VIAL (PULMICORT) NEB SCH ×2 (07:20→18:58)
[2021-03-06] MEDS: guaiFENesin 600 MG TABCR PO SCH ×2 (08:20→20:28)
[2021-03-06] MEDS: dexAMETHasone 6 MG in SYRINGE 0 ML IV SCH (08:21)
[2021-03-06] MEDS: dilTIAZem HCL 30 MG TAB PO SCH ×3 (08:21→20:28)
[2021-03-06] MEDS: MONTELUKAST SODIUM 10 MG TABLET PO SCH (08:22)
[2021-03-06] MEDS: ESCITALOPRAM OXALATE 10 MG TAB PO SCH (08:23)
[2021-03-06] MEDS: FUROSEMIDE 20 MG TAB PO SCH (08:24)
[2021-03-06] MEDS: MAGNESIUM OXIDE 400 MG TAB PO SCH ×2 (08:24→20:28)
[2021-03-06] MEDS: THEOPHYLLINE 400 MG EXTENDED REL TAB PO SCH (08:24)
[2021-03-06] MEDS: SPIRONOLACTONE 100 MG TAB PO SCH (08:25)
[2021-03-06] MEDS: PANTOprazole 40 MG TAB PO SCH ×2 (08:25→20:28)
[2021-03-06] MEDS: FAMOTIDINE 20 MG TAB PO SCH (08:33)
[2021-03-06] MEDS: ROFLUMILAST 500 MCG TAB PO SCH (08:48)
[2021-03-06 09:04] LABS: BUN Creatinine Ratio 28.8 (10-20); C Reactive Protein 8.67 mg/dl (0-0.29); Calcium 8.7 mg/dl (8.5-10.1); Creatinine Clr Calc Pharmacy 48.4 ml/min; Est GFR (African American) 60.4 ml/min; Est GFR (Non-African American) 52.1 ml/min; Potassium 4.2 mmol/L (3.5-5.1)
[2021-03-06] MEDS: INSULIN ASPART 100 UNITS/ML 3 ML PEN SC SCH ×4 (09:42→20:35)
[2021-03-06] MEDS: INSULIN HUMAN NPH SC SCH (09:44)
--- NOTE | 2021-03-06 14:15 | Hospitalist Progress Note ---
Date of Service March 06, 2021 Assessment & Plan (1) COPD exacerbation: On chronic 2L [place] oxygen at home. - Finished Levaquin 5-day course on 03/05. - Continue dexamethasone as for "Covid-19" - Incentive spirometry, flutter valve - Continue budesonide and Perforomist nebulizers in place of her usual maintenance inhalers per pulm recommendations. - Continue Singular, roflumilast, theophylline, and guaifenesin - Consulted pulmonology (2) COVID-19: Possible 4 weeks of symptoms although given continued fevers through 03/03, treating test date as day #1 for isolation. - Appreciate pulmonology recommendations: - Continue dexamethasone x 10 day course (End date: 03/14/2021) (3) Atrial fibrillation: New onset morning of 03/02. TTE on 03/04 with normal LVEF (55 - 60%), no significant change from 2018. TSH WNL. - Continue diltiazem 90 mg PO TID - Continue anticoagulation with Xarelto (4) Hypertension: BP today is 140/70. - Continue home Lasix, spironolactone - Continue diltiazem as above (5) Abdominal pain: Uncertain etiology of abdominal pain. CT a/p on 02/28 demonstrated severe diverticulosis of the sigmoid colon; however, no acute inflammatory changes. - Continue home Pepcid, Protonix, and Carafate (6) History of pulmonary embolism: - Chronically on Xarelto - Additionally has IVC filter in place (7) Hypothyroidism: TSH was 1.1 this admission. No signs/symptoms of hypo-/hyperthyroidism. - Continue home Synthroid 25 mcg (8) DVT prophylaxis: DVT ppx: Continue home Xarelto Admission and Anticipated Discharge Date Admission Date: February 28, 2021 Subjective Doing better today. Less shortness of breath of rest today, but still quite a bit with exertion. Reports no fevers/chills, chest pain, abdominal pain, nausea, or vomiting. Physical Exam Constitutional: WD/WN, vitals as above Eyes: EOM intact bilaterally; no conjunctival abnormality ENMT: external ear and nose normal, oropharynx normal Neck: trachea midline, no thyromegaly normal visual inspection Respiratory: normal respiratory effort, lungs clear to auscultation no respiratory distress Cardiovascular: RRR, no murmur, no edema Gastrointestinal (Abdomen): Inspection/Auscultation: abdomen normal to inspection; abdomen not distended Musculoskeletal: no cyanosis or clubbing, extremities motor strength 5/5 Skin: no rashes, warm and dry Neurologic: moves all extremities and awake Psychiatric: Orientation: alert, oriented to person and cooperative Results & Data Results & Data ([facility]) Vital Signs (Past 12 Hours) Vital Signs Temp Pulse Pulse Resp BP Pulse Ox 03/06/21 12:05 36.7 C 89 18 140/71 96 03/06/21 10:52 89 20 92 03/06/21 08:10 36.5 C 91 H 18 123/61 93 03/06/21 07:21 112 H 20 99 03/06/21 07:00 84 03/06/21 04:00 36.7 C 82 18 128/61 97 PG Care Time/CCT Total # of Minutes Spent Total Time Spent with Patient: Total time spent is greater than 50% in coordination of care (as documented) at patient's floor/unit and/or counseling patient: Coding Level of Care Code 54351 Subseq Hosp Care Lvl 3 Diagnoses COPD exacerbation J44.1 COVID-19 U07.1 Atrial fibrillation I48.91 Hypertension I10 Hypertension type: essential hypertension Abdominal pain R10.9 History of pulmonary embolism Z86.711 Hypothyroidism E03.9 DVT prophylaxis Z29.9 (1) Hypertension Hypertension type: essential hypertension Qualified Code(s): I10 - Essential (primary) hypertension
[2021-03-06] MEDS: RIVAROXABAN 20 MG TAB PO SCH (17:07)
[2021-03-06] MEDS: MIRTAZAPINE TAB 15 MG TAB PO SCH (20:27)
[2021-03-06] MEDS: INSULIN GLARGINE SOLOSTAR 100 UNITS/ML 3 ML PEN SQ SCH (20:35)
[2021-03-06] MEDS: MELATONIN 3 MG TAB PO SCH (20:39)
[2021-03-07] MEDS: ALBUT/IPRATROP 3MG/0.5MG NEB 3 ML VIAL NEB PRN ×2 (01:29→11:07)
[2021-03-07] MEDS: LEVOTHYROXINE SODIUM 25 MCG TABLET PO SCH (06:03)
[2021-03-07 06:27] LABS: Hematocrit (blood only) 30.7 % (37-47); Hemoglobin 9.4 g/dL (12.0-16.0); Mean Corpuscular Hgb Conc 30.6 g/dL (32-36); Mean Corpuscular Volume 75.2 fL (80-100); Mean Platelet Volume 8.4 fL (7.4-10.4); Platelet Count 461 K/uL (130-400); RDW Coefficient of Variation 16.5 % (11.5-14.5); RDW Standard Deviation 45.9 fL (36.4-46.3); Red Blood Count 4.08 M/uL (4.2-5.4); White Blood Count 9.14 K/uL (4.8-10.8)
[2021-03-07 07:21] LABS: BUN Creatinine Ratio 26.9 (10-20); Calcium 8.5 mg/dl (8.5-10.1); Creatinine Clr Calc Pharmacy 48.5 ml/min; Est GFR (African American) 60.4 ml/min; Est GFR (Non-African American) 52.1 ml/min
[2021-03-07] MEDS: BUDESONIDE 0.25 MG/2 ML VIAL (PULMICORT) NEB SCH ×2 (07:37→18:56)
[2021-03-07] MEDS: FORMOTEROL 20 MCG/2 ML VIAL NEB SCH ×2 (07:38→18:57)
[2021-03-07] MEDS: dexAMETHasone 6 MG in SYRINGE 0 ML IV SCH (08:14)
[2021-03-07] MEDS: FUROSEMIDE 20 MG TAB PO SCH (08:15)
[2021-03-07] MEDS: ESCITALOPRAM OXALATE 10 MG TAB PO SCH (08:15)
[2021-03-07] MEDS: SPIRONOLACTONE 100 MG TAB PO SCH (08:15)
[2021-03-07] MEDS: ROFLUMILAST 500 MCG TAB PO SCH (08:15)
[2021-03-07] MEDS: MONTELUKAST SODIUM 10 MG TABLET PO SCH (08:15)
[2021-03-07] MEDS: dilTIAZem HCL 30 MG TAB PO SCH ×3 (08:16→21:28)
[2021-03-07] MEDS: FAMOTIDINE 20 MG TAB PO SCH (08:16)
[2021-03-07] MEDS: THEOPHYLLINE 400 MG EXTENDED REL TAB PO SCH (08:16)
[2021-03-07] MEDS: guaiFENesin 600 MG TABCR PO SCH ×2 (08:17→21:26)
[2021-03-07] MEDS: PANTOprazole 40 MG TAB PO SCH ×2 (08:18→21:26)
[2021-03-07] MEDS: MAGNESIUM OXIDE 400 MG TAB PO SCH ×2 (08:18→21:27)
[2021-03-07] MEDS: INSULIN HUMAN NPH SC SCH (08:19)
[2021-03-07] MEDS: INSULIN ASPART 100 UNITS/ML 3 ML PEN SC SCH ×4 (08:21→21:43)
[2021-03-07 08:34] LABS: Magnesium 2.5 mg/dl (1.8-2.4); Potassium 5.1 mmol/L (3.5-5.1)
--- NOTE | 2021-03-07 14:17 | Hospitalist Progress Note ---
Date of Service March 07, 2021 Assessment & Plan (1) COPD exacerbation: On chronic 2L [place] oxygen at home. - Finished Levaquin 5-day course on 03/05. - Continue dexamethasone as for "Covid-19" problem. - Incentive spirometry, flutter valve - Continue budesonide and Perforomist nebulizers in place of her usual maintenance inhalers per pulm recommendations. - Continue Singular, roflumilast, theophylline, and guaifenesin - Consulted pulmonology -> Doing better today. I did encourage her to work with PT to ensure she can get home safely. There is some concern about who will be able to care for her when she gets home, so we are working with her caregivers to ensure safe home. (2) COVID-19: Possible 4 weeks of symptoms although given continued fevers through 03/03, treating test date as day #1 for isolation. - Appreciate pulmonology recommendations: - Continue dexamethasone x 10 day course (End date: 03/14/2021) (3) Atrial fibrillation: New onset morning of 03/02. TTE on 03/04 with normal LVEF (55 - 60%), no significant change from 2018. TSH WNL. - Continue diltiazem 90 mg PO TID - Continue anticoagulation with Xarelto (4) Hypertension: BP today is 140/70. - Continue home Lasix, spironolactone - Continue diltiazem as above (5) Abdominal pain: Uncertain etiology of abdominal pain. CT a/p on 02/28 demonstrated severe diverticulosis of the sigmoid colon; however, no acute inflammatory changes. - Continue home Pepcid, Protonix, and Carafate (6) History of pulmonary embolism: - Chronically on Xarelto - Additionally has IVC filter in place (7) Hypothyroidism: TSH was 1.1 this admission. No signs/symptoms of hypo-/hyperthyroidism. - Continue home Synthroid 25 mcg (8) DVT prophylaxis: DVT ppx: Continue home Xarelto Admission and Anticipated Discharge Date Admission Date: February 28, 2021 Subjective Feeling better today, but still having trouble moving much without any shortness of breath. Reports no fevers/chills, chest pain, abdominal pain, nausea, or vomiting. Physical Exam Constitutional: WD/WN, vitals as above Eyes: EOM intact bilaterally; no conjunctival abnormality ENMT: external ear and nose normal, oropharynx normal Neck: trachea midline, no thyromegaly normal visual inspection Respiratory: normal respiratory effort, lungs clear to auscultation no respiratory distress Cardiovascular: RRR, no murmur, no edema Gastrointestinal (Abdomen): Inspection/Auscultation: abdomen normal to inspection; abdomen not distended Musculoskeletal: no cyanosis or clubbing, extremities motor strength 5/5 Skin: no rashes, warm and dry Neurologic: moves all extremities and awake Psychiatric: Orientation: alert, oriented to person and cooperative Results & Data Results & Data ([facility]) Vital Signs (Past 12 Hours) Vital Signs Temp Pulse Pulse Resp BP Pulse Ox 03/07/21 13:55 36.6 C 97 H 18 146/66 H 92 03/07/21 11:13 36.6 C 123 H 18 132/74 96 03/07/21 11:07 104 H 28 H 90 03/07/21 08:05 36.6 C 90 18 163/66 H 92 03/07/21 07:38 96 H 20 91 03/07/21 07:00 81 03/07/21 03:15 36.8 C 81 20 127/64 95 PG Care Time/CCT Total # of Minutes Spent Total Time Spent with Patient: Total time spent is greater than 50% in coordination of care (as documented) at patient's floor/unit and/or counseling patient: Coding Level of Care Code 64879 Subseq Hosp Care Lvl 2 Diagnoses COPD exacerbation J44.1 COVID-19 U07.1 Atrial fibrillation I48.91 Hypertension I10 Hypertension type: essential hypertension Abdominal pain R10.9 History of pulmonary embolism Z86.711 Hypothyroidism E03.9 DVT prophylaxis Z29.9 (1) Hypertension Hypertension type: essential hypertension Qualified Code(s): I10 - Essential (primary) hypertension
--- NOTE | 2021-03-07 15:18 | Pharmacy Report ---
Pharmacy Glycemic Short Note 2 - Date of Service March 07, 2021 - Glycemic Short BSG Results (Last 24 hours): 03/06/21 03/06/21 03/07/21 17:03 19:47 05:54 Glucose 196 H POC Glucose 226 H 270 H 03/07/21 03/07/21 08:06 11:04 Glucose POC Glucose 201 H 129 H OUTPATIENT ANTIDIABETIC REGIMEN: * Lantus 15 units SQ HS * Humalog 12 units SQ AC * Metformin * A1c = 8.8% on 02/28/21 ASSESSMENT: 03/07: * Patient received total 107 units of insulin yesterday: 53 units basal and 54 units bolus. * All BSG values yesterday were above 200 mg/dl. Fasting BSG today was still elevated at 270 mg/dl. * Basal Lantus for tonight was increased slightly. However, more importantly Novolog parameters were also tightened. * Pre-lunch BSG came down significantly to 129 today after pt received 21 units of Novolog with breakfast. * Since pt had already received a significant amount of Novolog insulin this AM in addition to the NPH and to prevent hypoglycemia d/t insulin stacking, Novolog CR was loosened with lunch today. 03/05: * Patient received a total of 6o units of insulin yesterday, 43 of which were basal. Dinner BSG elevated yesterday. Will tighten novolog and increase NPH dose to be given with dexamethasone. Continue current lantus dose. 03/04: * Patient received a total of 50 units of insulin yesterday (25 units NPH, 15 units lantus, 10 units novolog) * Fasting BSG increased today, will slightly increase evening Lantus dose. Of note, after IV dexamethasone 6mg dose this morning, the dose will be increased to 10 mg IV tomorrow morning. Will assess need for NPH increase at that time. May consider tightening NovoLog again pending today's postprandial trends 03/02 * Pt has received 76 units of insulin over the past 24hrs * 22 units of basal with Lantus * 36 units of NPH for steroid induced hyperglycemia * 18 units of bolus with NovoLog * BSGs [id number] mg/dl * AM fasting BSG slightly below goal range at 89 mg/dl this morning. Will decrease HS Lantus back to outpatient dosing * Will slightly lower NPH since patient has additional Lantus on board- may need to adjust tomorrow * Continue to titrate insulin to maintain BSGs below 180 mg/dl 02/28 * 75yo T2DM female with sub-adequate control of DM as an outpatient. Goal A1c would be <8% based on age/co-morbidities * Pt admitted with COPD Exacerbation + COVID19 infection. Pt received high dose steroids x 4 since admission * Prednisone 40mg PO in ED last night around 2200 * Solumedrol 40mg IV at 0100 * Solumedrol 40mg IV at 0900 * Dexamethasone 6mg IV today at 1130 which will continue daily starting tomorrow * Pt with SEVERE Hyperglycemia secondary to steroids, illness/infection, and baseline poor control. * NPH insulin is used to counteract the hyperglycemic effect of daily dosed steroids * The dose of NPH given is dependent on the steroid dose given * For doses of prednisone 40mg/day (or equivalent) or above the NPH dose should be 0.4 units/kg * NPH dosing above is given in addition to patients baseline basal + prandial insulin needs PLAN FOR INPATIENT GLYCEMIC CONTROL: * Hold outpatient oral diabetes medications (metformin); use SQ basal bolus in its place * Basal insulin * Increase Lantus to 20 units SQ HS * Steroid induced hyperglycemia * Continue NPH 35 units SQ daily with DXM (hold if DXM held or DC) * Bolus insulin: tightened CF, loosened CR * NovoLog per scale ACHS or Q6hrs while NPO. * Goal Range: Low 110 mg/dL - High 140 mg/dL * Correction Factor: 15 mg/dL/unit * Nutritional / Prandial insulin per carb ratio of 1 unit per 6 grams CHO consumed PLAN FOR DISCHARGE: * TBD based on inpatient trends; likely insulin regimen will need adjusted to achieve A1c < 8%
[2021-03-07] MEDS: RIVAROXABAN 20 MG TAB PO SCH (16:55)
[2021-03-07] MEDS: COUGH DROP (SUGAR FREE) LOZ 24 LOZ/1 BOX BUCCAL PRN (18:14)
[2021-03-07] MEDS ORDERED: INSULIN GLARGINE SOLOSTAR 100 UNITS/ML 3 ML PEN SQ SCH (21:00)
[2021-03-07] MEDS: MELATONIN 3 MG TAB PO SCH (21:26)
[2021-03-07] MEDS: MIRTAZAPINE TAB 15 MG TAB PO SCH (21:27)
[2021-03-08] MEDS: ALBUT/IPRATROP 3MG/0.5MG NEB 3 ML VIAL NEB PRN ×4 (02:10→22:59)
[2021-03-08] MEDS: LEVOTHYROXINE SODIUM 25 MCG TABLET PO SCH (05:44)
[2021-03-08] MEDS: BUDESONIDE 0.25 MG/2 ML VIAL (PULMICORT) NEB SCH ×2 (07:20→18:48)
[2021-03-08] MEDS: FORMOTEROL 20 MCG/2 ML VIAL NEB SCH ×2 (07:23→18:48)
[2021-03-08 08:30] LABS: Hematocrit (blood only) 34.9 % (37-47); Mean Corpuscular Hemoglobin 23.6 pg (25-34); Mean Corpuscular Hgb Conc 31.5 g/dL (32-36); Mean Corpuscular Volume 74.9 fL (80-100); Mean Platelet Volume 8.4 fL (7.4-10.4); Nucleated RBC # (auto) 0.04 K/uL (0-0); Nucleated RBC % (auto) 0.3 %; Platelet Count 605 K/uL (130-400); RDW Coefficient of Variation 16.7 % (11.5-14.5); RDW Standard Deviation 45.3 fL (36.4-46.3); Red Blood Count 4.66 M/uL (4.2-5.4); White Blood Count 13.29 K/uL (4.8-10.8)
[2021-03-08] MEDS: SPIRONOLACTONE 100 MG TAB PO SCH (08:31)
[2021-03-08] MEDS: ROFLUMILAST 500 MCG TAB PO SCH (08:31)
[2021-03-08] MEDS: THEOPHYLLINE 400 MG EXTENDED REL TAB PO SCH (08:31)
[2021-03-08] MEDS: ESCITALOPRAM OXALATE 10 MG TAB PO SCH (08:32)
[2021-03-08] MEDS: FUROSEMIDE 20 MG TAB PO SCH (08:32)
[2021-03-08] MEDS: FAMOTIDINE 20 MG TAB PO SCH (08:33)
[2021-03-08] MEDS: dilTIAZem HCL 30 MG TAB PO SCH ×3 (08:33→20:04)
[2021-03-08] MEDS: MONTELUKAST SODIUM 10 MG TABLET PO SCH (08:33)
[2021-03-08] MEDS: PANTOprazole 40 MG TAB PO SCH ×2 (08:34→20:06)
[2021-03-08] MEDS: dexAMETHasone 4 MG TAB PO SCH (08:34)
[2021-03-08] MEDS: MAGNESIUM OXIDE 400 MG TAB PO SCH ×2 (08:34→20:03)
[2021-03-08] MEDS: guaiFENesin 600 MG TABCR PO SCH ×2 (08:35→20:05)
[2021-03-08] MEDS: COUGH DROP (SUGAR FREE) LOZ 24 LOZ/1 BOX BUCCAL PRN (08:40)
[2021-03-08 08:59] LABS: BUN Creatinine Ratio 23.6 (10-20); Calcium 9.7 mg/dl (8.5-10.1); Creatinine Clr Calc Pharmacy 40.7 ml/min; Est GFR (African American) 48.4 ml/min; Est GFR (Non-African American) 41.8 ml/min
[2021-03-08] MEDS: INSULIN ASPART 100 UNITS/ML 3 ML PEN SC SCH ×4 (10:13→20:18)
[2021-03-08] MEDS: INSULIN HUMAN NPH SC SCH (10:14)
--- NOTE | 2021-03-08 13:10 | Hospitalist Progress Note ---
Date of Service March 08, 2021 Assessment & Plan (1) COPD exacerbation: On chronic 2L [place] oxygen at home. - Finished Levaquin 5-day course on 03/05. - Continue dexamethasone as for "Covid-19" problem. - Incentive spirometry, flutter valve - Continue budesonide and Perforomist nebulizers in place of her usual maintenance inhalers per pulm recommendations. - Continue Singular, roflumilast, theophylline, and guaifenesin - Consulted pulmonology -> Doing worse today. Thick cough, more work of breathing. CT chest, BNP, procal. Consider adjustment of steroids; restart abx? (2) COVID-19: Possible 4 weeks of symptoms although given continued fevers through 03/03, treating test date as day #1 for isolation. - Appreciate pulmonology recommendations: - Continue dexamethasone x 10 day course (End date: 03/14/2021) (3) Atrial fibrillation: New onset morning of 03/02. TTE on 03/04 with normal LVEF (55 - 60%), no significant change from 2018. TSH WNL. - Continue diltiazem 90 mg PO TID - Continue anticoagulation with Xarelto (4) Hypertension: BP today is 140/70. - Continue home Lasix, spironolactone - Continue diltiazem as above (5) Abdominal pain: Uncertain etiology of abdominal pain. CT a/p on 02/28 demonstrated severe diverticulosis of the sigmoid colon; however, no acute inflammatory changes. - Continue home Pepcid, Protonix, and Carafate (6) History of pulmonary embolism: - Chronically on Xarelto - Additionally has IVC filter in place (7) Hypothyroidism: TSH was 1.1 this admission. No signs/symptoms of hypo-/hyperthyroidism. - Continue home Synthroid 25 mcg (8) DVT prophylaxis: DVT ppx: Continue home Xarelto Admission and Anticipated Discharge Date Admission Date: February 28, 2021 Subjective Worse today. Breathing is more labored and she has significant wet cough. Reports no fevers/chills, chest pain, abdominal pain, nausea, or vomiting. Physical Exam Constitutional: WD/WN, vitals as above Eyes: EOM intact bilaterally; no conjunctival abnormality ENMT: external ear and nose normal, oropharynx normal Neck: trachea midline, no thyromegaly normal visual inspection Respiratory: normal respiratory effort, lungs clear to auscultation no respiratory distress Cardiovascular: RRR, no murmur, no edema Gastrointestinal (Abdomen): Inspection/Auscultation: abdomen normal to inspection; abdomen not distended Musculoskeletal: no cyanosis or clubbing, extremities motor strength 5/5 Skin: no rashes, warm and dry Neurologic: moves all extremities and awake Psychiatric: Orientation: alert, oriented to person and cooperative Results & Data Results & Data ([facility]) Vital Signs (Past 12 Hours) Vital Signs Temp Pulse Pulse Resp BP Pulse Ox 03/08/21 12:06 36.6 C 124 H 22 147/75 H 94 03/08/21 11:28 115 H 03/08/21 11:26 108 H 28 H 92 03/08/21 08:00 36.6 C 117 H 20 153/87 H 92 03/08/21 07:23 101 H 26 H 94 03/08/21 04:00 36.8 C 99 H 20 152/77 H 93 03/08/21 02:11 101 H 26 H 91 PG Care Time/CCT Total # of Minutes Spent Total Time Spent with Patient: Total time spent is greater than 50% in coordination of care (as documented) at patient's floor/unit and/or counseling patient: Coding Level of Care Code 29590 Subseq Hosp Care Lvl 2 Diagnoses COPD exacerbation J44.1 COVID-19 U07.1 Atrial fibrillation I48.91 Hypertension I10 Hypertension type: essential hypertension Abdominal pain R10.9 History of pulmonary embolism Z86.711 Hypothyroidism E03.9 DVT prophylaxis Z29.9 (1) Hypertension Hypertension type: essential hypertension Qualified Code(s): I10 - Essential (primary) hypertension
[2021-03-08 13:40] LABS: Base Excess VBG 0.9 mEq/L; Oxygen Saturation VBG 88.2 %; pH VBG 7.45 (7.36-7.41)
--- NOTE | 2021-03-08 15:21 | CT Scan Report ---
CT SCAN OF THE CHEST WITHOUT IV CONTRAST CLINICAL HISTORY: Dyspnea. Leukocytosis. Increased sputum production. Covid. COMPARISON STUDY: Chest x-ray dated 03/02/2021. Chest CT scans dated 02/28/2021 and 10/28/2017. TECHNIQUE: CT scan of the thorax was performed from the thoracic inlet to the upper abdomen. Images are reviewed in the axial, sagittal, and coronal planes. IV contrast was not administered for this ex amination as per the referring clinician. A dose lowering technique was utilized ad[facility] the [facility]. The examination is degraded by motion artifact. CT DOSE: 677.78 mGycm FINDINGS: Thyroid: Imaged portions of the thyroid gland are normal in size and attenuation. Thoracic aorta: There is mild atherosclerotic calcification of the thoracic aorta, which is normal in caliber and demonstrates standard 3-vessel arch anatomy. Heart: The heart is enlarged and without pericardial effusion. The coronary arteries are densely calc ified. Lungs and pleural spaces: Evaluation of the lung parenchyma is degraded by motion artifact. Moderate to advanced emphysematous change is identified. The trachea and central airways are clear. Foci of pa tchy airspace consolidation are seen throughout both lungs, most confluent in the lingula. No pleural effusion is identified. There are scattered calcified granulomas. Mediastinum: There is no mediastinal lymphadenopathy. Ania: Not well assessed without IV contrast. Axillae: There is no axillary lymphadenopathy. Upper abdomen: There is a small hiatal hernia. The tip of an IVC filter is partially visualized. Skeletal structures: The skeletal structures are osteopenic. Degenerative change is seen throughout t he thoracic spine. There are chronic compression deformities of T1 and T4. No lytic or blastic bony l esions are seen. IMPRESSION: 1. Cardiomegaly and emphysema. 2. Patchy airspace consolidation is seen throughout both lungs as above. This is consistent with the reported history of a viral pneumonia, and this has progressed as compared to the 02/28/2011 examinati on. Radiographic follow-up to resolution is recommended. 3. No pleural effusion is identified. 4. Additional findings as above. ACT 112: Negative or not required by law. Electronically signed by: Tee Terry M.D. 03/08/2021 3:19 PM
[2021-03-08] MEDS: RIVAROXABAN 20 MG TAB PO SCH (18:01)
[2021-03-08] MEDS: MELATONIN 3 MG TAB PO SCH (20:05)
[2021-03-08] MEDS: MIRTAZAPINE TAB 15 MG TAB PO SCH (20:05)
[2021-03-08] MEDS: INSULIN GLARGINE SOLOSTAR 100 UNITS/ML 3 ML PEN SQ SCH (20:19)
[2021-03-09] MEDS: ALBUT/IPRATROP 3MG/0.5MG NEB 3 ML VIAL NEB PRN ×4 (03:03→22:43)
[2021-03-09] MEDS: LEVOTHYROXINE SODIUM 25 MCG TABLET PO SCH (05:59)
[2021-03-09 07:10] LABS: Hematocrit (blood only) 30.9 % (37-47); Hemoglobin 9.7 g/dL (12.0-16.0); Mean Corpuscular Hemoglobin 23.3 pg (25-34); Mean Corpuscular Hgb Conc 31.4 g/dL (32-36); Mean Corpuscular Volume 74.1 fL (80-100); Mean Platelet Volume 8.2 fL (7.4-10.4); Platelet Count 540 K/uL (130-400); RDW Coefficient of Variation 16.7 % (11.5-14.5); RDW Standard Deviation 45.7 fL (36.4-46.3); Red Blood Count 4.17 M/uL (4.2-5.4); White Blood Count 13.77 K/uL (4.8-10.8)
[2021-03-09] MEDS: FORMOTEROL 20 MCG/2 ML VIAL NEB SCH ×2 (07:29→19:14)
[2021-03-09] MEDS: BUDESONIDE 0.25 MG/2 ML VIAL (PULMICORT) NEB SCH ×2 (07:29→19:14)
[2021-03-09 07:47] LABS: BUN Creatinine Ratio 27.6 (10-20); Est GFR (African American) 49.3 ml/min; Est GFR (Non-African American) 42.6 ml/min; Magnesium 2.4 mg/dl (1.8-2.4); Potassium 5.1 mmol/L (3.5-5.1)
[2021-03-09 07:59] LABS: Beta-Hydroxybutyrate 2.32 mg/dl (0.2-2.81)
[2021-03-09] MEDS: INSULIN ASPART 100 UNITS/ML 3 ML PEN SC SCH ×5 (08:00→20:55)
[2021-03-09] MEDS ORDERED: INSULIN HUMAN REGULAR IV BOLUS 3.5 UNITS in SYRINGE 0 ML IV ONE (08:15)
[2021-03-09] MEDS ORDERED: INSULIN REGULAR 250 UNITS in SODIUM CHLORIDE 0.9% 247.5 ML IV SCH (08:15)
[2021-03-09] MEDS: guaiFENesin 600 MG TABCR PO SCH ×2 (08:16→20:38)
[2021-03-09] MEDS: dilTIAZem HCL 30 MG TAB PO SCH ×3 (08:16→20:39)
[2021-03-09] MEDS: MAGNESIUM OXIDE 400 MG TAB PO SCH ×2 (08:17→20:40)
[2021-03-09] MEDS: ROFLUMILAST 500 MCG TAB PO SCH (08:25)
[2021-03-09] MEDS: THEOPHYLLINE 400 MG EXTENDED REL TAB PO SCH (08:25)
[2021-03-09] MEDS: ESCITALOPRAM OXALATE 10 MG TAB PO SCH (08:25)
[2021-03-09] MEDS: FUROSEMIDE 20 MG TAB PO SCH (08:25)
[2021-03-09] MEDS: SPIRONOLACTONE 100 MG TAB PO SCH (08:25)
[2021-03-09] MEDS: MONTELUKAST SODIUM 10 MG TABLET PO SCH (08:26)
[2021-03-09] MEDS: FAMOTIDINE 20 MG TAB PO SCH (08:26)
[2021-03-09] MEDS: dexAMETHasone 4 MG TAB PO SCH (08:26)
[2021-03-09] MEDS: INSULIN HUMAN NPH SC SCH (08:59)
[2021-03-09] MEDS: PANTOprazole 40 MG TAB PO SCH ×2 (10:32→20:38)
--- NOTE | 2021-03-09 12:45 | Hospitalist Progress Note ---
Date of Service March 09, 2021 Assessment & Plan (1) COPD exacerbation: On chronic 2L [place] oxygen at home. - Finished Levaquin 5-day course on 03/05. - Continue dexamethasone as for "Covid-19" problem. - Incentive spirometry, flutter valve - Continue budesonide and Perforomist nebulizers in place of her usual maintenance inhalers per pulm recommendations. - Continue Singular, roflumilast, theophylline, and guaifenesin - Consulted pulmonology -> Doing better today. Testing yesterday mostly indicates worsening Covid. Procal negative on 03/08. VBG indicates good ventilation. CT chest showed no mucus plugging; likely worsening viral pneumonia. (2) COVID-19: Possible 4 weeks of symptoms although given continued fevers through 03/03, treating test date as day #1 for isolation. - Appreciate pulmonology recommendations: - Continue dexamethasone x 10 day course (End date: 03/14/2021) (3) Atrial fibrillation: New onset morning of 03/02. TTE on 03/04 with normal LVEF (55 - 60%), no significant change from 2018. TSH WNL. - Continue diltiazem 90 mg PO TID - Continue anticoagulation with Xarelto (4) Hypertension: BP today is 150/80. - Continue home Lasix - Stopped spironolactone on 03/09 for slight signs of hypovolemia and rising K+. - Continue diltiazem as above (5) Abdominal pain: Uncertain etiology of abdominal pain. CT a/p on 02/28 demonstrated severe diverticulosis of the sigmoid colon; however, no acute inflammatory changes. - Continue home Pepcid, Protonix, and Carafate - None in several days. (6) History of pulmonary embolism: - Chronically on Xarelto - Additionally has IVC filter in place (7) Hypothyroidism: TSH was 1.1 this admission. No signs/symptoms of hypo-/hyperthyroidism. - Continue home Synthroid 25 mcg (8) DVT prophylaxis: DVT ppx: Continue home Xarelto Admission and Anticipated Discharge Date Admission Date: February 28, 2021 Subjective Stable today. Not as short of breath when lying still, but still no real ability to move without a lot of dyspnea. Reports no fevers/chills, chest pain, abdominal pain, nausea, or vomiting. Physical Exam Constitutional: WD/WN, vitals as above Eyes: EOM intact bilaterally; no conjunctival abnormality ENMT: external ear and nose normal, oropharynx normal Neck: trachea midline, no thyromegaly normal visual inspection Respiratory: normal respiratory effort, lungs clear to auscultation no respiratory distress Cardiovascular: RRR, no murmur, no edema Gastrointestinal (Abdomen): Inspection/Auscultation: abdomen normal to inspection; abdomen not distended Musculoskeletal: no cyanosis or clubbing, extremities motor strength 5/5 Skin: no rashes, warm and dry Neurologic: moves all extremities and awake Psychiatric: Orientation: alert, oriented to person and cooperative Results & Data Results & Data ([facility]) Vital Signs (Past 12 Hours) Vital Signs Temp Pulse Pulse Resp BP Pulse Ox 03/09/21 11:27 36.5 C 90 22 148/82 H 94 03/09/21 11:25 90 18 93 03/09/21 08:14 36.9 C 90 20 155/81 H 95 03/09/21 07:39 97 H 03/09/21 07:29 87 18 94 03/09/21 04:00 36.5 C 94 H 20 155/65 H 92 03/09/21 03:03 86 20 91 PG Care Time/CCT Total # of Minutes Spent Total Time Spent with Patient: Total time spent is greater than 50% in coordination of care (as documented) at patient's floor/unit and/or counseling patient: Coding Level of Care Code 17253 Subseq Hosp Care Lvl 3 Diagnoses COPD exacerbation J44.1 COVID-19 U07.1 Atrial fibrillation I48.91 Hypertension I10 Hypertension type: essential hypertension Abdominal pain R10.9 History of pulmonary embolism Z86.711 Hypothyroidism E03.9 DVT prophylaxis Z29.9 (1) Hypertension Hypertension type: essential hypertension Qualified Code(s): I10 - Essential (primary) hypertension
--- NOTE | 2021-03-09 15:23 | Pharmacy Report ---
Pharmacy Glycemic Short Note 2 - Date of Service March 09, 2021 - Glycemic Short BSG Results (Last 24 hours): 03/08/21 03/08/21 03/08/21 16:47 19:44 19:45 Glucose POC Glucose 222 H 351 H* 356 H* 03/08/21 03/09/21 03/09/21 23:46 06:46 07:43 Glucose 358 H* POC Glucose 227 H 373 H* 03/09/21 03/09/21 03/09/21 07:44 10:18 10:20 Glucose POC Glucose 400 H* 390 H* 369 H* 03/09/21 03/09/21 03/09/21 11:18 12:14 12:15 Glucose POC Glucose 360 H* 390 H* 352 H* 03/09/21 03/09/21 13:02 14:03 Glucose POC Glucose 400 H* 278 H OUTPATIENT ANTIDIABETIC REGIMEN: * Lantus 15 units SQ HS * Humalog 12 units SQ AC * Metformin * A1c = 8.8% on 02/28/21 ASSESSMENT: 03/09 * Patient received total of ~117 units of insulin yesterday, ~57 units of which were basal * BSGs this AM in the 400s, plan to start patient on insulin drip to have better estimate of insulin needs while on steroids. 03/07: * Patient received total 107 units of insulin yesterday: 53 units basal and 54 units bolus. * All BSG values yesterday were above 200 mg/dl. Fasting BSG today was still elevated at 270 mg/dl. * Basal Lantus for tonight was increased slightly. However, more importantly Novolog parameters were also tightened. * Pre-lunch BSG came down significantly to 129 today after pt received 21 units of Novolog with breakfast. * Since pt had already received a significant amount of Novolog insulin this AM in addition to the NPH and to prevent hypoglycemia d/t insulin stacking, Novolog CR was loosened with lunch today. 03/05: * Patient received a total of 6o units of insulin yesterday, 43 of which were basal. Dinner BSG elevated yesterday. Will tighten novolog and increase NPH dose to be given with dexamethasone. Continue current lantus dose. 03/04: * Patient received a total of 50 units of insulin yesterday (25 units NPH, 15 units lantus, 10 units novolog) * Fasting BSG increased today, will slightly increase evening Lantus dose. Of note, after IV dexamethasone 6mg dose this morning, the dose will be increased to 10 mg IV tomorrow morning. Will assess need for NPH increase at that time. May consider tightening NovoLog again pending today's postprandial trends 03/02 * Pt has received 76 units of insulin over the past 24hrs * 22 units of basal with Lantus * 36 units of NPH for steroid induced hyperglycemia * 18 units of bolus with NovoLog * BSGs [id number] mg/dl * AM fasting BSG slightly below goal range at 89 mg/dl this morning. Will decrease HS Lantus back to outpatient dosing * Will slightly lower NPH since patient has additional Lantus on board- may need to adjust tomorrow * Continue to titrate insulin to maintain BSGs below 180 mg/dl 02/28 * 75yo T2DM female with sub-adequate control of DM as an outpatient. Goal A1c would be <8% based on age/co-morbidities * Pt admitted with COPD Exacerbation + COVID19 infection. Pt received high dose steroids x 4 since admission * Prednisone 40mg PO in ED last night around 2200 * Solumedrol 40mg IV at 0100 * Solumedrol 40mg IV at 0900 * Dexamethasone 6mg IV today at 1130 which will continue daily starting tomorrow * Pt with SEVERE Hyperglycemia secondary to steroids, illness/infection, and baseline poor control. * NPH insulin is used to counteract the hyperglycemic effect of daily dosed steroids * The dose of NPH given is dependent on the steroid dose given * For doses of prednisone 40mg/day (or equivalent) or above the NPH dose should be 0.4 units/kg * NPH dosing above is given in addition to patients baseline basal + prandial insulin needs PLAN FOR INPATIENT GLYCEMIC CONTROL: * Started insulin drip this AM - plan to continue with NPH and Lantus orders with drip. Have set carb ratio of 4 with drip * Basal insulin * Increase Lantus 22 units * Steroid induced hyperglycemia * Continue NPH 35 units SQ daily with DXM (hold if DXM held or DC) PLAN FOR DISCHARGE: * TBD based on inpatient trends; likely insulin regimen will need adjusted to achieve A1c < 8%
[2021-03-09] MEDS: RIVAROXABAN 20 MG TAB PO SCH (16:48)
[2021-03-09] MEDS: MIRTAZAPINE TAB 15 MG TAB PO SCH (20:37)
[2021-03-09] MEDS: MELATONIN 3 MG TAB PO SCH (20:39)
[2021-03-09] MEDS: INSULIN GLARGINE SOLOSTAR 100 UNITS/ML 3 ML PEN SQ SCH (20:55)
[2021-03-10] MEDS ORDERED: INSULIN ASPART 100 UNITS/ML 3 ML PEN SC SCH (02:00)
[2021-03-10] MEDS: ALBUT/IPRATROP 3MG/0.5MG NEB 3 ML VIAL NEB PRN ×4 (03:15→23:06)
[2021-03-10] MEDS: LEVOTHYROXINE SODIUM 25 MCG TABLET PO SCH (06:10)
[2021-03-10 06:42] LABS: Hematocrit (blood only) 32.8 % (37-47); Hemoglobin 10.4 g/dL (12.0-16.0); Mean Corpuscular Hemoglobin 23.3 pg (25-34); Mean Corpuscular Hgb Conc 31.7 g/dL (32-36); Mean Corpuscular Volume 73.5 fL (80-100); Mean Platelet Volume 8.1 fL (7.4-10.4); Platelet Count 635 K/uL (130-400); RDW Coefficient of Variation 16.4 % (11.5-14.5); RDW Standard Deviation 44.2 fL (36.4-46.3); Red Blood Count 4.46 M/uL (4.2-5.4); White Blood Count 19.08 K/uL (4.8-10.8)
[2021-03-10 07:00] LABS: Albumin Level 3.1 gm/dl (3.4-5.0); BUN Creatinine Ratio 31.3 (10-20); Calcium 9.4 mg/dl (8.5-10.1); Creatinine Clr Calc Pharmacy 43.3 ml/min; Est GFR (African American) 52.4 ml/min; Est GFR (Non-African American) 45.2 ml/min; Magnesium 2.5 mg/dl (1.8-2.4); Potassium 5.2 mmol/L (3.5-5.1)
[2021-03-10 07:02] LABS: Albumin Globulin Ratio 0.8 (0.9-2); Bilirubin,Total 0.6 mg/dl (0.2-1); Globulin 3.8 gm/dl (2.5-4.0); Total Protein 6.9 gm/dl (6.4-8.2)
[2021-03-10] MEDS: BUDESONIDE 0.25 MG/2 ML VIAL (PULMICORT) NEB SCH ×2 (07:23→19:05)
[2021-03-10] MEDS: FORMOTEROL 20 MCG/2 ML VIAL NEB SCH ×2 (07:23→19:05)
[2021-03-10] MEDS ORDERED: SODIUM CHLORIDE 0.9% 1000ML 500 ML IV ONE (07:27)
[2021-03-10] MEDS ORDERED: INSULIN HUMAN NPH SC ONE (07:30)
[2021-03-10] MEDS: INSULIN ASPART 100 UNITS/ML 3 ML PEN SC SCH ×4 (07:57→21:27)
[2021-03-10] MEDS: dilTIAZem HCL 30 MG TAB PO SCH ×3 (08:07→21:04)
[2021-03-10] MEDS: MONTELUKAST SODIUM 10 MG TABLET PO SCH (08:08)
[2021-03-10] MEDS: ESCITALOPRAM OXALATE 10 MG TAB PO SCH (08:08)
[2021-03-10] MEDS: FAMOTIDINE 20 MG TAB PO SCH (08:08)
[2021-03-10] MEDS: ROFLUMILAST 500 MCG TAB PO SCH (08:08)
[2021-03-10] MEDS: THEOPHYLLINE 400 MG EXTENDED REL TAB PO SCH (08:09)
[2021-03-10] MEDS: guaiFENesin 600 MG TABCR PO SCH ×2 (08:09→21:05)
[2021-03-10] MEDS: MAGNESIUM OXIDE 400 MG TAB PO SCH ×2 (08:09→21:09)
[2021-03-10] MEDS: PANTOprazole 40 MG TAB PO SCH ×2 (08:09→21:10)
--- NOTE | 2021-03-10 11:24 | Hospitalist Progress Note ---
Date of Service March 10, 2021 Assessment & Plan (1) COPD exacerbation: On chronic 2L [place] oxygen at home. - Finished Levaquin 5-day course on 03/05. - Finished dexamethasone on 03/09 - Incentive spirometry, flutter valve - Continue budesonide and Perforomist nebulizers in place of her usual carol ntenance inhalers per pulm recommendations. - Continue Singular, roflumilast, theophylline, and guaifenesin - Consulted pulmonology -> Again worse today. Increased work of breathing. Testing on 03/09 mostly indicated worsening Covid. Procal negative on 03/08. VBG indicates good ventilation. CT chest showed no mucus plugging; likely worsening viral pneumonia. - Will get MRSA swab and sputum culture. Restart abx in case there is an additional bacterial process going on. (2) COVID-19: Possible 4 weeks of symptoms although given continued fevers through 03/03, treating test date as day #1 for isolation. - Appreciate pulmonology recommendations: - Continued dexamethasone x 10 day course (Ended: 03/09/2021) (3) Hyponatremia: Na trended down on 03/08 -> 03/10 down to 125. On 03/09, it corrected to 132 after her hyperglycemia, so I was less worried. 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 - Held spironolactone on 03/09 as this could easily contribute. - Will recheck this afternoon. If still lowering, will give salt load as well low-level Lasix. (4) Diabetes: A1c was 8.8% in this admission. Blood sugars have been out of control on steroids. - Glycemic pharmacy managing - Initiated insulin gtt on 03/09. Stopped steroids on 03/10 and discussed with pharmacist to avoid hypoglycemia. (5) Atrial fibrillation: New onset morning of 03/02. TTE on 03/04 with normal LVEF (55 - 60%), no significant change from 2018. TSH WNL. - Continue diltiazem 90 mg PO TID - Continue anticoagulation with Xarelto (6) Hypertension: BP today is 160/70. - Held home Lasix on 03/09 for increasing BUN and indication of hypovolemia. - Stopped spironolactone on 03/09 for slight signs of hypovolemia and rising K+. - Continue diltiazem as above (7) Abdominal pain: Uncertain etiology of abdominal pain. CT a/p on 02/28 demonstrated severe diverticulosis of the sigmoid colon; however, no acute inflammatory changes. - Continue home Pepcid, Protonix, and Carafate - None in several days. (8) History of pulmonary embolism: - Chronically on Xarelto - Additionally has IVC filter in place (9) Hypothyroidism: TSH was 1.1 this admission. No signs/symptoms of hypo-/hyperthyroidism. - Continue home Synthroid 25 mcg (10) DVT prophylaxis: DVT ppx: Continue home Xarelto Admission and Anticipated Discharge Date Admission Date: February 28, 2021 Subjective Worse today with some pursed-lip breathing. Also have some sputum expectoration. Reports no fevers/chills, chest pain, abdominal pain, nausea, or vomiting. Physical Exam Constitutional: WD/WN, vitals as above Eyes: EOM intact bilaterally; no conjunctival abnormality ENMT: external ear and nose normal, oropharynx normal Neck: trachea midline, no thyromegaly normal visual inspection Respiratory: normal respiratory effort, lungs clear to auscultation no respiratory distress Cardiovascular: RRR, no murmur, no edema Gastrointestinal (Abdomen): Inspection/Auscultation: abdomen normal to inspection; abdomen not distended Musculoskeletal: no cyanosis or clubbing, extremities motor strength 5/5 Skin: no rashes, warm and dry Neurologic: moves all extremities and awake Psychiatric: Orientation: alert, oriented to person and cooperative Results & Data Results & Data ([facility]) Vital Signs (Past 12 Hours) Vital Signs Temp Pulse Resp BP Pulse Ox 03/10/21 11:04 86 18 94 03/10/21 10:51 36.4 C L 85 18 161/72 H 94 03/10/21 07:23 78 20 97 03/10/21 07:14 36.7 C 85 24 155/79 H 93 03/10/21 04:14 37.0 C 85 24 133/66 97 03/10/21 03:15 80 16 97 03/09/21 23:40 37.0 C 99 H 24 160/77 H 95 PG Care Time/CCT Total # of Minutes Spent Total Time Spent with Patient: Total time spent is greater than 50% in coordination of care (as documented) at patient's floor/unit and/or counseling patient: Coding Level of Care Code 49253 Subseq Hosp Care Lvl 3 Diagnoses COPD exacerbation J44.1 COVID-19 U07.1 Hyponatremia E87.1 Diabetes E11.9; Z79.4 Diabetes mellitus complication status: without complication Diabetes mellitus [employer] insulin use: with nursing home use Diabetes mellitus type: type 2 Atrial fibrillation I48.91 Hypertension I10 Hypertension type: essential hypertension Abdominal pain R10.9 History of pulmonary embolism Z86.711 Hypothyroidism E03.9 DVT prophylaxis Z29.9 (1) Diabetes Diabetes mellitus complication status: without complication Diabetes mellitus nursing home insulin use: 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
[2021-03-10] MEDS ORDERED: INSULIN GLARGINE SOLOSTAR 100 UNITS/ML 3 ML PEN SQ ONE (11:45)
[2021-03-10] MEDS ORDERED: PIPERACILL/TAZOBAC CONSULT ACTIVE PRN (12:44)
[2021-03-10] MEDS ORDERED: PIPERACILLIN/TAZOBACTAM 3.375 GM in DEXTROSE 5% 100 ML IV ONE (13:00)
[2021-03-10 14:36] LABS: BUN Creatinine Ratio 23.8 (10-20); Calcium 9.3 mg/dl (8.5-10.1); Creatinine Clr Calc Pharmacy 37.5 ml/min; Est GFR (African American) 44.1 ml/min; Potassium 5.2 mmol/L (3.5-5.1)
--- NOTE | 2021-03-10 14:39 | Pharmacy Report ---
Pharmacy Glycemic Short Note 2 - Date of Service March 10, 2021 - Glycemic Short BSG Results (Last 24 hours): 03/09/21 03/09/21 03/09/21 15:11 16:15 17:17 Glucose POC Glucose 223 H 195 H 273 H 03/09/21 03/09/21 03/09/21 18:13 18:15 19:28 Glucose POC Glucose 347 H* 350 H* 407 H* 03/09/21 03/09/21 03/09/21 19:30 20:28 20:31 Glucose POC Glucose 397 H* 402 H* 419 H* 03/09/21 03/09/21 03/09/21 21:30 21:31 22:28 Glucose POC Glucose 336 H* 355 H* 238 H 03/09/21 03/09/21 03/10/21 23:29 23:58 00:59 Glucose POC Glucose 149 H 138 H 163 H 03/10/21 03/10/21 03/10/21 01:59 03:05 04:07 Glucose POC Glucose 226 H 247 H 260 H 03/10/21 03/10/21 03/10/21 05:04 06:05 06:05 Glucose 255 H POC Glucose 253 H 280 H 03/10/21 03/10/21 07:06 11:32 Glucose POC Glucose 279 H 282 H OUTPATIENT ANTIDIABETIC REGIMEN: * Lantus 15 units SQ HS * Humalog 12 units SQ AC * Metformin * A1c = 8.8% on 02/28/21 ASSESSMENT: 03/10 * Fasting BSG elevated this AM at 255 mg/dL - appears IV line with insulin drip got occluded overnight. Unclear what time this happened per RN. * Insulin drip was not infusing overnight, leading to hyperglycemia this AM * Discussed with provider and stopping DXM this AM. Held NPH and started basal insulin for now. Give full weight based stress of 2 dosing as likely still seeing effects of DXM dose from yesterday * Will loosen CF/CR more today as likely BSGs will be trending downward. Will add overnight check. 03/09 * Patient received total of ~117 units of insulin yesterday, ~57 units of which were basal * BSGs this AM in the 400s, plan to start patient on insulin drip to have better estimate of insulin needs while on steroids. 03/07: * Patient received total 107 units of insulin yesterday: 53 units basal and 54 units bolus. * All BSG values yesterday were above 200 mg/dl. Fasting BSG today was still elevated at 270 mg/dl. * Basal Lantus for tonight was increased slightly. However, more importantly Novolog parameters were also tightened. * Pre-lunch BSG came down significantly to 129 today after pt received 21 units of Novolog with breakfast. * Since pt had already received a significant amount of Novolog insulin this AM in addition to the NPH and to prevent hypoglycemia d/t insulin stacking, Novolog CR was loosened with lunch today. 03/05: * Patient received a total of 6o units of insulin yesterday, 43 of which were basal. Dinner BSG elevated yesterday. Will tighten novolog and increase NPH dose to be given with dexamethasone. Continue current lantus dose. 03/04: * Patient received a total of 50 units of insulin yesterday (25 units NPH, 15 units lantus, 10 units novolog) * Fasting BSG increased today, will slightly increase evening Lantus dose. Of note, after IV dexamethasone 6mg dose this morning, the dose will be increased to 10 mg IV tomorrow morning. Will assess need for NPH increase at that time. May consider tightening NovoLog again pending today's postprandial trends 03/02 * Pt has received 76 units of insulin over the past 24hrs * 22 units of basal with Lantus * 36 units of NPH for steroid induced hyperglycemia * 18 units of bolus with NovoLog * BSGs 184-43-204-175-89 mg/dl * AM fasting BSG slightly below goal range at 89 mg/dl this morning. Will decrease HS Lantus back to outpatient dosing * Will slightly lower NPH since patient has additional Lantus on board- may need to adjust tomorrow * Continue to titrate insulin to maintain BSGs below 180 mg/dl 02/28 * 75yo T2DM female with sub-adequate control of DM as an outpatient. Goal A1c would be <8% based on age/co-morbidities * Pt admitted with COPD Exacerbation + COVID19 infection. Pt received high dose steroids x 4 since admission * Prednisone 40mg PO in ED last night around 2200 * Solumedrol 40mg IV at 0100 * Solumedrol 40mg IV at 0900 * Dexamethasone 6mg IV today at 1130 which will continue daily starting tomorrow * Pt with SEVERE Hyperglycemia secondary to steroids, illness/infection, and baseline poor control. * NPH insulin is used to counteract the hyperglycemic effect of daily dosed steroids * The dose of NPH given is dependent on the steroid dose given * For doses of prednisone 40mg/day (or equivalent) or above the NPH dose should be 0.4 units/kg * NPH dosing above is given in addition to patients baseline basal + prandial insulin needs PLAN FOR INPATIENT GLYCEMIC CONTROL: * Started insulin drip this AM - plan to continue with NPH and Lantus orders with drip. Have set carb ratio of 4 with drip * Basal insulin * Lantus 30 units x 1 * Novolog - 110-140 / CF 15 / CR 5 PLAN FOR DISCHARGE: * TBD based on inpatient trends; likely insulin regimen will need adjusted to achieve A1c < 8%
[2021-03-10] MEDS: RIVAROXABAN 20 MG TAB PO SCH (17:01)
[2021-03-10] MEDS: PIPERACILLIN/TAZOBACTAM 3.375 GM in DEXTROSE 5% 100 ML IV SCH (17:01)
[2021-03-10] MEDS: MIRTAZAPINE TAB 15 MG TAB PO SCH (21:09)
[2021-03-10] MEDS: MELATONIN 3 MG TAB PO SCH (21:14)
[2021-03-11] MEDS ORDERED: INSULIN ASPART 100 UNITS/ML 3 ML PEN SC SCH
[2021-03-11] MEDS: PIPERACILLIN/TAZOBACTAM 3.375 GM in DEXTROSE 5% 100 ML IV SCH ×3 (01:57→17:16)
[2021-03-11] MEDS: ALBUT/IPRATROP 3MG/0.5MG NEB 3 ML VIAL NEB PRN ×4 (03:07→23:42)
[2021-03-11] MEDS: LEVOTHYROXINE SODIUM 25 MCG TABLET PO SCH (06:04)
[2021-03-11] MEDS: FORMOTEROL 20 MCG/2 ML VIAL NEB SCH ×2 (07:30→19:19)
[2021-03-11] MEDS: BUDESONIDE 0.25 MG/2 ML VIAL (PULMICORT) NEB SCH ×2 (07:31→19:19)
[2021-03-11 07:34] LABS: Hematocrit (blood only) 31.3 % (37-47); Mean Corpuscular Hemoglobin 23.1 pg (25-34); Mean Corpuscular Hgb Conc 31.9 g/dL (32-36); Mean Corpuscular Volume 72.3 fL (80-100); Mean Platelet Volume 8.1 fL (7.4-10.4); Platelet Count 553 K/uL (130-400); RDW Coefficient of Variation 16.5 % (11.5-14.5); RDW Standard Deviation 43.7 fL (36.4-46.3); Red Blood Count 4.33 M/uL (4.2-5.4); White Blood Count 16.43 K/uL (4.8-10.8)
[2021-03-11 08:07] LABS: BUN Creatinine Ratio 24.5 (10-20); Calcium 8.9 mg/dl (8.5-10.1); Creatinine Clr Calc Pharmacy 43.2 ml/min; Est GFR (Non-African American) 45.7 ml/min; Magnesium 2.5 mg/dl (1.8-2.4); Potassium 4.6 mmol/L (3.5-5.1)
[2021-03-11] MEDS: ROFLUMILAST 500 MCG TAB PO SCH (09:10)
[2021-03-11] MEDS: ESCITALOPRAM OXALATE 10 MG TAB PO SCH (09:11)
[2021-03-11] MEDS: PANTOprazole 40 MG TAB PO SCH ×2 (09:11→20:12)
[2021-03-11] MEDS: guaiFENesin 600 MG TABCR PO SCH ×2 (09:11→20:11)
[2021-03-11] MEDS: MAGNESIUM OXIDE 400 MG TAB PO SCH ×2 (09:11→20:10)
[2021-03-11] MEDS: THEOPHYLLINE 400 MG EXTENDED REL TAB PO SCH (09:11)
[2021-03-11] MEDS: MONTELUKAST SODIUM 10 MG TABLET PO SCH (09:11)
[2021-03-11] MEDS: FAMOTIDINE 20 MG TAB PO SCH (09:11)
[2021-03-11] MEDS: dilTIAZem HCL 30 MG TAB PO SCH ×3 (09:12→20:11)
[2021-03-11] MEDS: INSULIN ASPART 100 UNITS/ML 3 ML PEN SC SCH ×4 (09:20→21:50)
[2021-03-11] MEDS: INSULIN GLARGINE SOLOSTAR 100 UNITS/ML 3 ML PEN SQ SCH (09:21)
[2021-03-11] MEDS: RIVAROXABAN 20 MG TAB PO SCH (17:06)
[2021-03-11] MEDS: MIRTAZAPINE TAB 15 MG TAB PO SCH (20:10)
--- NOTE | 2021-03-11 21:47 | Hospitalist Progress Note ---
Date of Service March 11, 2021 Assessment & Plan (1) COPD exacerbation: On chronic 2L NC oxygen at home. - Finished Levaquin 5-day course on 03/05. - Finished dexamethasone on 03/09 - Incentive spirometry, flutter valve - Continue budesonide and Perforomist nebulizers in place of her usual carol ntenance inhalers per pulm recommendations. - Continue Singular, roflumilast, theophylline, and guaifenesin - Consulted pulmonology -> Not much improvement today. 02 requirements hav not increased. Testing on 03/09 mostly indicated worsening Covid. Procal negative on 03/08. VBG indicates good ventilation. CT chest showed no mucus plugging; likely worsening viral pneumonia. (2) COVID-19: Possible 4 weeks of symptoms although given continued fevers through 03/03, treating test date as day #1 for isolation. - Appreciate pulmonology recommendations: - Continued dexamethasone x 10 day course (Ended: 03/09/2021) (3) Hyponatremia: Na trended down on 03/08 -> 03/10 down to 125. On 03/09, it corrected to 132 after her hyperglycemia, so I was less worried. 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 - Held spironolactone on 03/09 as this could easily contribute. - Will recheck this afternoon. If still lowering, will give salt load as well low-level Lasix. (4) Diabetes: A1c was 8.8% in this admission. Blood sugars have been out of control on steroids. - Glycemic pharmacy managing - Initiated insulin gtt on 03/09. Stopped steroids on 03/10 and discussed with pharmacist to avoid hypoglycemia. (5) Atrial fibrillation: New onset morning of 03/02. TTE on 03/04 with normal LVEF (55 - 60%), no significant change from 2018. TSH WNL. - Continue diltiazem 90 mg PO TID - Continue anticoagulation with Xarelto (6) Hypertension: BP today is 160/70. - Held home Lasix on 03/09 for increasing BUN and indication of hypovolemia. - Stopped spironolactone on 03/09 for slight signs of hypovolemia and rising K+. - Continue diltiazem as above (7) Abdominal pain: Uncertain etiology of abdominal pain. CT a/p on 02/28 demonstrated severe diverticulosis of the sigmoid colon; however, no acute inflammatory changes. - Continue home Pepcid, Protonix, and Carafate - None in several days. (8) History of pulmonary embolism: - Chronically on Xarelto - Additionally has IVC filter in place (9) Hypothyroidism: TSH was 1.1 this admission. No signs/symptoms of hypo-/hyperthyroidism. - Continue home Synthroid 25 mcg (10) DVT prophylaxis: DVT ppx: Continue home Xarelto Admission and Anticipated Discharge Date Admission Date: February 28, 2021 Subjective Patient reports that she is still coughing. Still somewhat short of breath. Review of Systems Review of Systems: All systems reviewed & are unremarkable except as noted in HPI & below Physical Exam Physical Exam: Constitutional: WD/WN, vitals as above Eyes: EOM intact bilaterally; no conjunctival abnormality ENMT: external ear and nose normal, oropharynx normal Neck: trachea midline, no thyromegaly normal visual inspection Respiratory: normal respiratory effort, lungs clear to auscultation no respiratory distress Cardiovascular: RRR, no murmur, no edema Gastrointestinal (Abdomen): Inspection/Auscultation: abdomen normal to inspection; abdomen not distended Musculoskeletal: no cyanosis or clubbing, extremities motor strength 5/5 Skin: no rashes, warm and dry Neurologic: moves all extremities and awake Psychiatric: Orientation: alert, oriented to person and cooperative Results & Data Results & Data ([facility]) Vital Signs (Past 12 Hours) Vital Signs Temp Pulse Pulse Resp BP Pulse Ox 03/11/21 20:00 37 C 110 H 20 163/80 H 92 03/11/21 19:21 97 H 18 96 03/11/21 15:18 94 H 24 94 03/11/21 14:29 36.6 C 95 H 18 156/82 H 95 03/11/21 14:20 88 03/11/21 11:21 88 22 94 03/11/21 11:01 36.9 C 91 H 20 145/76 H 95 PG Care Time/CCT Total # of Minutes Spent Total Time Spent with Patient: Total time spent is greater than 50% in coordination of care (as documented) at patient's floor/unit and/or counseling patient: Coding Level of Care Code 35369 Subseq Hosp Care Lvl 3 Diagnoses COPD exacerbation J44.1 COVID-19 U07.1 Hyponatremia E87.1 Diabetes E11.9; Z79.4 Diabetes mellitus complication status: without complication Diabetes mellitus shelter insulin use: with long term care social worker use Diabetes mellitus type: type 2 Atrial fibrillation I48.91 Hypertension I10 Hypertension type: essential hypertension Abdominal pain R10.9 History of pulmonary embolism Z86.711 Hypothyroidism E03.9 DVT prophylaxis Z29.9 Time Spent (min) 35 Comment first encounter, chart review (1) Diabetes Diabetes mellitus complication status: without complication Diabetes mellitus long term care social worker insulin use: with long term care social worker use Diabetes mellitus type: type 2 Qualified Code(s): E11.9 - Type 2 diabetes mellitus without complications; Z79.4 - superintendent container terminal (current) use of insulin (2) Hypertension Hypertension type: essential hypertension Qualified Code(s): I10 - Essential (primary) hypertension
[2021-03-11] MEDS: MELATONIN 3 MG TAB PO SCH (21:50)
[2021-03-12] MEDS: PIPERACILLIN/TAZOBACTAM 3.375 GM in DEXTROSE 5% 100 ML IV SCH ×3 (02:08→17:01)
[2021-03-12] MEDS: ALBUT/IPRATROP 3MG/0.5MG NEB 3 ML VIAL NEB PRN ×5 (04:14→22:52)
[2021-03-12] MEDS: LEVOTHYROXINE SODIUM 25 MCG TABLET PO SCH (06:42)
[2021-03-12] MEDS: FORMOTEROL 20 MCG/2 ML VIAL NEB SCH ×2 (07:15→19:06)
[2021-03-12] MEDS: BUDESONIDE 0.25 MG/2 ML VIAL (PULMICORT) NEB SCH ×2 (07:15→19:14)
[2021-03-12 07:46] LABS: Basophils # (auto) 0.04 K/uL (0-0.2); Basophils % (auto) 0.3 %; Eosinophils % (auto) 2.7 %; Hematocrit (blood only) 34.1 % (37-47); Hemoglobin 10.6 g/dL (12.0-16.0); Immature Granulocytes # (auto) 0.58 K/uL (0.00-0.02); Immature Granulocytes % (auto) 3.9 %; Lymphocytes # (auto) 1.37 K/uL (1.2-3.4); Lymphocytes % (auto) 9.2 %; Mean Corpuscular Hemoglobin 22.9 pg (25-34); Mean Corpuscular Hgb Conc 31.1 g/dL (32-36); Mean Corpuscular Volume 73.7 fL (80-100); Mean Platelet Volume 8.1 fL (7.4-10.4); Monocytes # (auto) 1.29 K/uL (0.11-0.59); Monocytes % (auto) 8.7 %; Neutrophils # (auto) 11.18 K/uL (1.4-6.5); Neutrophils % (auto) 75.2 %; Platelet Count 534 K/uL (130-400); RDW Coefficient of Variation 16.6 % (11.5-14.5); RDW Standard Deviation 44.8 fL (36.4-46.3); Red Blood Count 4.63 M/uL (4.2-5.4); White Blood Count 14.86 K/uL (4.8-10.8)
[2021-03-12 08:10] LABS: BUN Creatinine Ratio 26.9 (10-20); Calcium 9.3 mg/dl (8.5-10.1); Creatinine Clr Calc Pharmacy 47.9 ml/min; Est GFR (African American) 60.4 ml/min; Est GFR (Non-African American) 52.1 ml/min; Potassium 4.4 mmol/L (3.5-5.1)
[2021-03-12] MEDS: MAGNESIUM OXIDE 400 MG TAB PO SCH ×2 (08:49→20:55)
[2021-03-12] MEDS: FAMOTIDINE 20 MG TAB PO SCH (08:49)
[2021-03-12] MEDS: ROFLUMILAST 500 MCG TAB PO SCH (08:50)
[2021-03-12] MEDS: ESCITALOPRAM OXALATE 10 MG TAB PO SCH (08:50)
[2021-03-12] MEDS: MONTELUKAST SODIUM 10 MG TABLET PO SCH (08:52)
[2021-03-12] MEDS: guaiFENesin 600 MG TABCR PO SCH ×2 (08:52→20:54)
[2021-03-12] MEDS: dilTIAZem HCL 30 MG TAB PO SCH ×3 (08:52→20:55)
[2021-03-12] MEDS: PANTOprazole 40 MG TAB PO SCH ×2 (08:52→20:54)
[2021-03-12] MEDS: THEOPHYLLINE 400 MG EXTENDED REL TAB PO SCH (08:52)
[2021-03-12] MEDS: INSULIN ASPART 100 UNITS/ML 3 ML PEN SC SCH ×4 (09:05→21:56)
[2021-03-12] MEDS: INSULIN GLARGINE SOLOSTAR 100 UNITS/ML 3 ML PEN SQ SCH ×2 (09:07→21:57)
[2021-03-12] MEDS ORDERED: SODIUM CHLORIDE 1 GM TABLET PO SCH ×2 (10:45→21:00)
[2021-03-12] MEDS ORDERED: FUROSEMIDE 20 MG in SYRINGE 0 ML IV ONE (11:00)
--- NOTE | 2021-03-12 12:31 | Nephrology Consultation ---
Date of Consultation March 12, 2021 Assessment & Plan (1) Hyponatremia: * Net 11L volume negative since admission. Now clinically volume contracted * Elevated Uosm may be reflective of volume contracted state * Hold further diuresis * Reluctant to provide hydration due to tenuous respiratory status * Will start NaCl 1 g po BID and monitor serum sodium (2) COVID-19: * Received 1st of 2 COVID vaccination ~ 1 week ago * COVID + by PCR 02/27/21 * 03/08/[address]: patchy airspace consolidation in both lungs c/w reported history of viral pneumonia. This has progressed compared to the 02/28/21 examination * Patient has completed 10 day course of Dexamethasone (3) COPD with emphysema: * On nebulizer therapy (4) Hypertension: * BP improved today. Continue Diltiazem therapy History of Present Illness Reason for Consultation: Hyponatremia Attending Physician: William Devries History of Present Illness Ms. Clemons is a 75 year old white female who is seen at the request of Dr. Devries for evaluation of hyponatremia. Medical records in the EMR were reviewed today and are summarized as follows: Ms. Clemons has no prior h/o kidney disease or electrolyte abnormality. Her baseline Cr had been 0.8 - 1.0 and Na has been 138 - 141 mmol/L. She has hypothyroidism which is managed w/ oral levothyroxine therapy and CHF that has been controlled w/ low dose furosemide. Ms. Clemons has no h/o adrenal insufficiency or liver disease. Her medical history does include HTN, anemia, atrial fibrillation, COPD, breast CA, PE, and depression. Ms. Clemons was admitted to the hospital 02/28 for evaluation of dyspnea. She had been vaccinated for COVID-19 one week prior. Evaluation revealed bilateral pulmonary infiltrates c/w viral pneumonia. Patient tested + for COVID. She has completed 10 days of dexamethasone therapy. She was given diuretics and is net 11 L volume negative. Serum sodium has dropped from 140 to 124 mmol/L. Allergies Allergy/AdvReac Type Severity Reaction Status Date / Time rabies vaccine, duck-embryo Allergy Severe HIVES Verified 02/27/21 23:12 ragweed pollen Allergy Unknown UNKNOWN Verified 02/27/21 23:12 tomato Allergy Unknown HIVES Verified 02/27/21 23:12 Home Medications Medication Instructions Recorded Confirmed Type Xarelto 20 mg PO QAM 02/10/19 02/27/21 History escitalopram oxalate 15 mg PO QAM 02/10/19 02/27/21 History famotidine 20 mg PO QAM 02/10/19 02/27/21 History levothyroxine 25 mcg PO QAM 02/10/19 02/27/21 History metformin 500 mg PO BID 02/10/19 02/27/21 History metoprolol succinate 25 mg PO BID 02/10/19 02/27/21 History mirtazapine 30 mg PO HS 02/10/19 02/27/21 History pantoprazole 40 mg PO BID 02/10/19 02/27/21 History potassium chloride 20 meq PO QAM 02/10/19 02/27/21 History quetiapine 200 mg PO HS 02/10/19 02/27/21 History spironolactone 100 mg PO QAM 02/10/19 02/27/21 History sucralfate 1 g PO ACHS 02/10/19 02/27/21 History magnesium oxide 400 mg PO BID 02/20/19 02/27/21 History Lantus Solostar U-100 Insulin 15 unit SUBCUT DAILY@2100 12/01/19 02/27/21 Histor y insulin lispro [Humalog KwikPen 12 unit SUBCUT TIDM 05/22/20 02/27/21 History Insulin] albuterol sulfate 90 mcg/actuation 2 puff INHALATION Q6H PRN #18 g 06/05/20 02/27/21 Rx aerosol inhaler 21cen Vit-D Pangburn 400iu Chew 1 tab PO DAILY 02/27/21 02/27/21 History albuterol sulfate 2.5 mg INHALATION Q4 PRN 02/27/21 02/27/21 History budesonide 0.5 mg INHALATION BID 02/27/21 02/27/21 History furosemide 20 mg PO DAILY 02/27/21 02/27/21 History montelukast 10 mg PO DAILY 02/27/21 02/27/21 History polysaccharide iron complex 150 mg PO BID 02/27/21 02/27/21 History [Poly-Iron] roflumilast [Daliresp] 500 mcg PO DAILY 02/27/21 02/27/21 History theophylline [Rohit-24] 400 mg PO DAILY 02/27/21 02/27/21 History Patient History Medical History Acute and chronic respiratory failure with hypoxia Acute on chronic combined systolic (congestive) and diastolic (congestive) heart failure Acute respiratory failure with hypoxia Atelectasis Breast cancer, right breast CHF (congestive heart failure) COPD (chronic obstructive pulmonary disease) COPD exacerbation Diabetes Elevated troponin Endocarditis KATHLEEN (generalized anxiety disorder) GERD (gastroesophageal reflux disease) GI bleed Hypoxia Major depression, recurrent, full remission MSSA (methicillin susceptible Staphylococcus aureus) septicemia Nausea & vomiting Obesity hypoventilation syndrome QT prolongation Septic thrombophlebitis Spinal abscess Syncope Vomiting and diarrhea Surgical History History of lumpectomy Family History Other Coronary heart disease Stroke Social History Smoking Status: Former smoker Second Hand Exposure: No; Hx Alcohol Use: No Hx Substance Use: No Preferred Language: Egyptian Communication Ability: Effective [place] Consultant Required: No Beliefs That Will Affect Care: None marital status: Single Current Living Situation: Alone Current Living Situation Comment: with caregiver current occupational status: retired How many Children do You have: 0 Feels Safe at Home: Yes Assistive Devices: Denture - Upper, Denture - Lower and Oxygen - Continuous Review of Systems Constitutional: no fever Eyes: no problem reported Respiratory: + dyspnea Cardiovascular: no chest pain Physical Exam Constitutional: mildly dyspneic Eyes: PERRL, conjunctivae normal, anicteric sclerae ENMT: dry mucous membranes Neck: no JVD Respiratory: + audible wheezes Cardiovascular: Rate/Rhythm: + tachycardic Gastrointestinal (Abdomen): Percussion/Palpation: abdomen soft; abdomen nontender Skin: + turgor decreased Neurologic: awake; not confused Results & Data ([facility]) Vital Signs (Past 12 Hours) Vital Signs Temp Pulse Pulse Resp BP Pulse Ox 03/12/21 11:36 37.1 C 106 H 16 118/78 94 03/12/21 10:55 107 H 21 95 03/12/21 08:00 36.6 C 91 H 20 108/68 94 03/12/21 07:16 92 H 18 94 03/12/21 06:20 92 H 03/12/21 04:30 36.8 C 108 H 20 164/80 H 94 03/12/21 04:15 95 H 20 95 Laboratory Tests 03/03/21 03/05/21 03/08/21 06:45 06:34 08:07 WBC Hgb Hct Plt Count Sodium 136 133 L 132 L Potassium Chloride Carbon Dioxide BUN Creatinine Glucose Calcium TSH 1.170 Urine Osmolality 03/09/21 03/10/21 03/10/21 06:46 06:05 09:58 WBC Hgb Hct Plt Count Sodium 128 L 125 L Potassium Chloride Carbon Dioxide BUN Creatinine Glucose Calcium TSH Urine Osmolality 465 L 03/12/21 03/12/21 07:15 07:15 WBC 14.86 H Hgb 10.6 L Hct 34.1 L Plt Count 534 H Sodium 124 L Potassium 4.4 Chloride 93 L Carbon Dioxide 25 BUN 28 H Creatinine 1.04 Glucose 227 H Calcium 9.3 TSH Urine Osmolality PG Care Time/CCT Total # of Minutes Spent Total Time Spent with Patient: Total time spent is greater than 50% in coordination of care (as documented) at patient's floor/unit and/or counseling patient: Coding Level of Care Code 52069 Inpt Consult Level 5 Diagnoses Hyponatremia E87.1 COVID-19 U07.1 COPD with emphysema J43.9 Hypertension I10 Hypertension type: essential hypertension (1) Hypertension Hypertension type: essential hypertension Qualified Code(s): I10 - Essential (primary) hypertension
--- NOTE | 2021-03-12 13:20 | Pharmacy Report ---
Pharmacy Glycemic Short Note 2 - Date of Service March 12, 2021 - Glycemic Short BSG Results (Last 24 hours): 03/11/21 03/11/21 03/12/21 16:46 21:25 07:15 Glucose 227 H POC Glucose 166 H 299 H 03/12/21 03/12/21 08:11 11:39 Glucose POC Glucose 243 H 179 H OUTPATIENT ANTIDIABETIC REGIMEN: * Lantus 15 units SQ HS * Humalog 12 units SQ AC * Metformin * A1c = 8.8% on 02/28/21 ASSESSMENT: 03/12 * BSGs yesterday of 241, 131, 166, and 299 mg/dL * Received 82 units of insulin (35 units of Lantus and 47 units of prandial/correctional bolus) * Fasting BSG of 243 mg/dL this morning - will plan to increase basal insulin today * Given upward trend throughout the day yesterday, will tighten carb ratio 03/10 * Fasting BSG elevated this AM at 255 mg/dL - appears IV line with insulin drip got occluded overnight. Unclear what time this happened per RN. * Insulin drip was not infusing overnight, leading to hyperglycemia this AM * Discussed with provider and stopping DXM this AM. Held NPH and started basal insulin for now. Give full weight based stress of 2 dosing as likely still seeing effects of DXM dose from yesterday * Will loosen CF/CR more today as likely BSGs will be trending downward. Will add overnight check. 03/02 * Pt has received 76 units of insulin over the past 24hrs * 22 units of basal with Lantus * 36 units of NPH for steroid induced hyperglycemia * 18 units of bolus with NovoLog * BSGs 705-99-441-175-89 mg/dl * AM fasting BSG slightly below goal range at 89 mg/dl this morning. Will decrease HS Lantus back to outpatient dosing * Will slightly lower NPH since patient has additional Lantus on board- may need to adjust tomorrow * Continue to titrate insulin to maintain BSGs below 180 mg/dl 02/28 * 75yo T2DM female with sub-adequate control of DM as an outpatient. Goal A1c would be <8% based on age/co-morbidities * Pt admitted with COPD Exacerbation + COVID19 infection. Pt received high dose steroids x 4 since admission * Prednisone 40mg PO in ED last night around 2200 * Solumedrol 40mg IV at 0100 * Solumedrol 40mg IV at 0900 * Dexamethasone 6mg IV today at 1130 which will continue daily starting tomorrow * Pt with SEVERE Hyperglycemia secondary to steroids, illness/infection, and baseline poor control. * NPH insulin is used to counteract the hyperglycemic effect of daily dosed steroids * The dose of NPH given is dependent on the steroid dose given * For doses of prednisone 40mg/day (or equivalent) or above the NPH dose should be 0.4 units/kg * NPH dosing above is given in addition to patients baseline basal + prandial insulin needs PLAN FOR INPATIENT GLYCEMIC CONTROL: * Basal insulin * Lantus 35 units SC daily * Lantus scale SC HS (0-10 units) - see EHR for details * Bolus insulin * NovoLog per scale ACHS or Q6hrs while NPO * Goal Range: Low 110 mg/dL - High 140 mg/dL * Correction Factor: 20 mg/dL/unit * Nutritional / Prandial insulin per carb ratio of 1 unit per 5 grams CHO consumed PLAN FOR DISCHARGE: * TBD based on inpatient trends; likely insulin regimen will need adjusted to achieve A1c < 8%
[2021-03-12] MEDS: RIVAROXABAN 20 MG TAB PO SCH (17:00)
[2021-03-12] MEDS: MIRTAZAPINE TAB 15 MG TAB PO SCH (20:54)
[2021-03-12] MEDS: MELATONIN 3 MG TAB PO SCH (20:55)
--- NOTE | 2021-03-12 22:03 | Hospitalist Progress Note ---
Date of Service March 12, 2021 Assessment & Plan (1) COPD exacerbation: On chronic 2L [place] oxygen at home. - Finished Levaquin 5-day course on 03/05. - Finished dexamethasone on 03/09 - Incentive spirometry, flutter valve - Continue budesonide and Perforomist nebulizers in place of her usual carol ntenance inhalers per pulm recommendations. - Continue Singular, roflumilast, theophylline, and guaifenesin - Consulted pulmonology -> Not much improvement today. 02 requirements hav not increased. Testing on 03/09 mostly indicated worsening Covid. Procal negative on 03/08. VBG indicates good ventilation. CT chest showed no mucus plugging; likely worsening viral pneumonia. She appears to be gradually improving today. She appears less short of breath and is using less her accessory muscles. Will continue to monitorl (2) COVID-19: Possible 4 weeks of symptoms although given continued fevers through 03/03, treating test date as day #1 for isolation. - Appreciate pulmonology recommendations: - Continued dexamethasone x 10 day course (Ended: 03/09/2021) (3) Hyponatremia: Na trended down on 03/08 -> 03/10 down to 125. On 03/09, it corrected to 132 after her hyperglycemia, so I was less worried. 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 - Held spironolactone on 03/09 as this could easily contribute. - not improving, will give salt load as well low-level Lasix. will consult nephro. (4) Diabetes: A1c was 8.8% in this admission. Blood sugars have been out of control on steroids. - Glycemic pharmacy managing - Initiated insulin gtt on 03/09. Stopped steroids on 03/10 and discussed with pharmacist to avoid hypoglycemia. (5) Atrial fibrillation: New onset morning of 03/02. TTE on 03/04 with normal LVEF (55 - 60%), no significant change from 2018. TSH WNL. - Continue diltiazem 90 mg PO TID - Continue anticoagulation with Xarelto (6) Hypertension: BP today is 160/70. - Held home Lasix on 03/09 for increasing BUN and indication of hypovolemia. - Stopped spironolactone on 03/09 for slight signs of hypovolemia and rising K+. - Continue diltiazem as above (7) Abdominal pain: Uncertain etiology of abdominal pain. CT a/p on 02/28 demonstrated severe diverticulosis of the sigmoid colon; however, no acute inflammatory changes. - Continue home Pepcid, Protonix, and Carafate - None in several days. (8) History of pulmonary embolism: - Chronically on Xarelto - Additionally has IVC filter in place (9) Hypothyroidism: TSH was 1.1 this admission. No signs/symptoms of hypo-/hyperthyroidism. - Continue home Synthroid 25 mcg (10) DVT prophylaxis: DVT ppx: Continue home Xarelto Admission and Anticipated Discharge Date Admission Date: February 28, 2021 Subjective Patient reports breathing better. She is coughing less. Review of Systems Review of Systems: All systems reviewed & are unremarkable except as noted in HPI & below Physical Exam Physical Exam: Constitutional: WD/WN, vitals as above Eyes: EOM intact bilaterally; no conjunctival abnormality ENMT: external ear and nose normal, oropharynx normal Neck: trachea midline, no thyromegaly normal visual inspection Respiratory: normal respiratory effort, lungs clear to auscultation no respiratory distress Cardiovascular: RRR, no murmur, no edema Gastrointestinal (Abdomen): Inspection/Auscultation: abdomen normal to inspection; abdomen not distended Musculoskeletal: no cyanosis or clubbing, extremities motor strength 5/5 Skin: no rashes, warm and dry Neurologic: moves all extremities and awake Psychiatric: Orientation: alert, oriented to person and cooperative Results & Data Results & Data ([facility]) Vital Signs (Past 12 Hours) Vital Signs Temp Pulse Pulse Resp BP Pulse Ox 03/12/21 19:48 37.1 C 118 H 22 132/84 92 03/12/21 19:07 122 H 24 92 03/12/21 15:15 95 H 03/12/21 15:07 92 H 18 95 03/12/21 14:23 36.6 C 91 H 20 130/77 96 03/12/21 11:36 37.1 C 106 H 16 118/78 94 03/12/21 10:55 107 H 21 95 PG Care Time/CCT Total # of Minutes Spent Total Time Spent with Patient: Total time spent is greater than 50% in coordination of care (as documented) at patient's floor/unit and/or counseling patient: Coding Level of Care Code 82082 Subseq Hosp Care Lvl 2 Diagnoses COPD exacerbation J44.1 COVID-19 U07.1 Hyponatremia E87.1 Diabetes E11.9; Z79.4 Diabetes mellitus complication status: without complication Diabetes mellitus mcc insulin use: with mcc use Diabetes mellitus type: type 2 Atrial fibrillation I48.91 Hypertension I10 Hypertension type: essential hypertension Abdominal pain R10.9 History of pulmonary embolism Z86.711 Hypothyroidism E03.9 DVT prophylaxis Z29.9 Time Spent (min) 25 (1) Diabetes Diabetes mellitus complication status: without complication Diabetes mellitus director long term care insulin use: with director long term care use Diabetes mellitus type: type 2 Qualified Code(s): E11.9 - Type 2 diabetes mellitus without complications; Z79.4 - termite control representative (current) use of insulin (2) Hypertension Hypertension type: essential hypertension Qualified Code(s): I10 - Essential (primary) hypertension
[2021-03-12] MEDS: LORazepam 0.5 MG TAB PO PRN (23:10)
[2021-03-13] MEDS: PIPERACILLIN/TAZOBACTAM 3.375 GM in DEXTROSE 5% 100 ML IV SCH ×3 (01:58→18:15)
[2021-03-13] MEDS: LEVOTHYROXINE SODIUM 25 MCG TABLET PO SCH (04:42)
[2021-03-13] MEDS: ALBUT/IPRATROP 3MG/0.5MG NEB 3 ML VIAL NEB PRN ×5 (04:54→23:02)
[2021-03-13] MEDS: FORMOTEROL 20 MCG/2 ML VIAL NEB SCH ×2 (06:55→19:08)
[2021-03-13] MEDS: BUDESONIDE 0.25 MG/2 ML VIAL (PULMICORT) NEB SCH ×2 (06:55→19:08)
[2021-03-13 07:28] LABS: BUN Creatinine Ratio 32.3 (10-20); Calcium 8.5 mg/dl (8.5-10.1); Creatinine Clr Calc Pharmacy 50.3 ml/min; Est GFR (African American) 63.4 ml/min; Est GFR (Non-African American) 54.7 ml/min; Potassium 4.5 mmol/L (3.5-5.1)
[2021-03-13] MEDS: INSULIN ASPART 100 UNITS/ML 3 ML PEN SC SCH ×4 (09:05→21:25)
[2021-03-13] MEDS: SODIUM CHLORIDE 1 GM TABLET PO SCH ×2 (09:13→21:22)
[2021-03-13] MEDS: guaiFENesin 600 MG TABCR PO SCH ×2 (09:15→21:21)
[2021-03-13] MEDS: PANTOprazole 40 MG TAB PO SCH ×2 (09:16→21:22)
[2021-03-13] MEDS: THEOPHYLLINE 400 MG EXTENDED REL TAB PO SCH (09:16)
[2021-03-13] MEDS: MONTELUKAST SODIUM 10 MG TABLET PO SCH (09:16)
[2021-03-13] MEDS: ESCITALOPRAM OXALATE 10 MG TAB PO SCH (09:16)
[2021-03-13] MEDS: ROFLUMILAST 500 MCG TAB PO SCH (09:17)
[2021-03-13] MEDS: FAMOTIDINE 20 MG TAB PO SCH (09:17)
[2021-03-13] MEDS: dilTIAZem HCL 30 MG TAB PO SCH ×3 (09:17→21:21)
[2021-03-13] MEDS: MAGNESIUM OXIDE 400 MG TAB PO SCH ×2 (09:18→21:21)
--- NOTE | 2021-03-13 09:49 | Nephrology Progress Note ---
Date of Service March 13, 2021 Assessment & Plan (1) Hyponatremia: * Net 11L volume negative since admission. Now clinically volume contracted * Elevated Uosm likely reflective of volume contracted state * Hold further diuresis * Reluctant to provide hydration due to tenuous respiratory status * Will increase NaCl 2 g po BID and monitor serum sodium (2) COVID-19: * Received 1st of 2 COVID vaccination ~ 1 week ago * COVID + by PCR 02/27/21 * 03/08/[address]: patchy airspace consolidation in both lungs c/w reported history of viral pneumonia. This has progressed compared to the 02/28/21 examination * Patient has completed 10 day course of Dexamethasone (3) COPD with emphysema: * On nebulizer therapy (4) Hypertension: * BP improved today. Continue Diltiazem therapy Admission and Anticipated Discharge Date Admission Date: February 28, 2021 Subjective Remains dyspneic. No new medical concerns Review of Systems Constitutional: no fever Eyes: no problem reported Respiratory: + dyspnea Cardiovascular: no chest pain Physical Exam Eyes: PERRL, conjunctivae normal, anicteric sclerae Respiratory: + audible wheezes Cardiovascular: Rate/Rhythm: + tachycardic Gastrointestinal (Abdomen): Percussion/Palpation: abdomen soft; abdomen nontender Skin: + turgor decreased Neurologic: awake; not confused Results & Data ([facility]) Vital Signs (Past 12 Hours) Vital Signs Temp Pulse Pulse Resp BP Pulse Ox 03/13/21 07:26 90 03/13/21 06:56 80 20 95 03/13/21 05:15 36.8 C 94 H 18 124/79 95 03/13/21 04:55 102 H 22 91 03/12/21 23:21 35.8 C L 99 H 16 132/82 96 03/12/21 22:55 99 H 20 96 03/12/21 22:20 115 H Laboratory Tests 03/13/21 03/13/21 05:25 06:19 Sodium 122 L Potassium 4.5 Chloride 90 L Carbon Dioxide 25 BUN 32 H Creatinine 1.00 Glucose 205 H Urine Osmolality 497 L PG Care Time/CCT Total # of Minutes Spent Total Time Spent with Patient: Total time spent is greater than 50% in coordination of care (as documented) at patient's floor/unit and/or counseling patient: Coding Level of Care Code 65559 Subseq Hosp Care Lvl 3 Diagnoses Hyponatremia E87.1 COVID-19 U07.1 COPD with emphysema J43.9 Hypertension I10 Hypertension type: essential hypertension (1) Hypertension Hypertension type: essential hypertension Qualified Code(s): I10 - Essential (primary) hypertension
[2021-03-13] MEDS: INSULIN GLARGINE SOLOSTAR 100 UNITS/ML 3 ML PEN SQ SCH ×2 (09:57→21:25)
--- NOTE | 2021-03-13 10:58 | Pharmacy Report ---
Pharmacy Glycemic Short Note 2 - Date of Service March 13, 2021 - Glycemic Short BSG Results (Last 24 hours): 03/12/21 03/12/21 03/12/21 11:39 16:53 20:18 Glucose POC Glucose 179 H 193 H 138 H 03/13/21 03/13/21 06:19 07:54 Glucose 205 H POC Glucose 210 H OUTPATIENT ANTIDIABETIC REGIMEN: * Lantus 15 units SQ HS * Humalog 12 units SQ AC * Metformin * A1c = 8.8% on 02/28/21 ASSESSMENT: 03/13 * Pt has received 84 units of insulin over the past 24hrs * 40 units of basal with Lantus * 44 units of bolus with NovoLog * BSGs 123-287-982-138-210 mg/dl * AM fasting BSG elevated at 210mg/dl. Will increase basal insulin * Post-prandial BSGs also elevated - will tighten CR. 03/12 * BSGs yesterday of 241, 131, 166, and 299 mg/dL * Received 82 units of insulin (35 units of Lantus and 47 units of prandial/correctional bolus) * Fasting BSG of 243 mg/dL this morning - will plan to increase basal insulin today * Given upward trend throughout the day yesterday, will tighten carb ratio 03/10 * Fasting BSG elevated this AM at 255 mg/dL - appears IV line with insulin drip got occluded overnight. Unclear what time this happened per RN. * Insulin drip was not infusing overnight, leading to hyperglycemia this AM * Discussed with provider and stopping DXM this AM. Held NPH and started basal insulin for now. Give full weight based stress of 2 dosing as likely still seeing effects of DXM dose from yesterday * Will loosen CF/CR more today as likely BSGs will be trending downward. Will add overnight check. 03/02 * Pt has received 76 units of insulin over the past 24hrs * 22 units of basal with Lantus * 36 units of NPH for steroid induced hyperglycemia * 18 units of bolus with NovoLog * BSGs 316-60-464-175-89 mg/dl * AM fasting BSG slightly below goal range at 89 mg/dl this morning. Will decrease HS Lantus back to outpatient dosing * Will slightly lower NPH since patient has additional Lantus on board- may need to adjust tomorrow * Continue to titrate insulin to maintain BSGs below 180 mg/dl 02/28 * 75yo T2DM female with sub-adequate control of DM as an outpatient. Goal A1c would be <8% based on age/co-morbidities * Pt admitted with COPD Exacerbation + COVID19 infection. Pt received high dose steroids x 4 since admission * Prednisone 40mg PO in ED last night around 2200 * Solumedrol 40mg IV at 0100 * Solumedrol 40mg IV at 0900 * Dexamethasone 6mg IV today at 1130 which will continue daily starting tomorrow * Pt with SEVERE Hyperglycemia secondary to steroids, illness/infection, and baseline poor control. * NPH insulin is used to counteract the hyperglycemic effect of daily dosed steroids * The dose of NPH given is dependent on the steroid dose given * For doses of prednisone 40mg/day (or equivalent) or above the NPH dose should be 0.4 units/kg * NPH dosing above is given in addition to patients baseline basal + prandial insulin needs PLAN FOR INPATIENT GLYCEMIC CONTROL: * Basal insulin * increase Lantus 45 units SC daily * Lantus scale SC HS (0-10 units) - see EHR for details * Bolus insulin * NovoLog per scale ACHS or Q6hrs while NPO * Goal Range: Low 110 mg/dL - High 140 mg/dL * Correction Factor: 20 mg/dL/unit * Nutritional / Prandial insulin per carb ratio of 1 unit per 5 grams CHO consumed PLAN FOR DISCHARGE: * TBD based on inpatient trends; likely insulin regimen will need adjusted to achieve A1c < 8%
[2021-03-13 13:08] LABS: BUN Creatinine Ratio 32.5 (10-20); Calcium 8.9 mg/dl (8.5-10.1); Creatinine Clr Calc Pharmacy 58.4 ml/min; Est GFR (African American) 76.1 ml/min; Est GFR (Non-African American) 65.6 ml/min; Potassium 4.7 mmol/L (3.5-5.1)
[2021-03-13] MEDS: RIVAROXABAN 20 MG TAB PO SCH (18:12)
[2021-03-13] MEDS: LORazepam 0.5 MG TAB PO PRN (21:20)
[2021-03-13] MEDS: MELATONIN 3 MG TAB PO SCH (21:20)
[2021-03-13] MEDS: MIRTAZAPINE TAB 15 MG TAB PO SCH (21:23)
--- NOTE | 2021-03-13 22:15 | Hospitalist Progress Note ---
Date of Service March 13, 2021 Assessment & Plan (1) COPD exacerbation: On chronic 2L [place] oxygen at home. - Finished Levaquin 5-day course on 03/05. - Finished dexamethasone on 03/09 - Incentive spirometry, flutter valve - Continue budesonide and Perforomist nebulizers in place of her usual carol ntenance inhalers per pulm recommendations. - Continue Singular, roflumilast, theophylline, and guaifenesin - Consulted pulmonology -> Not much improvement today. 02 requirements hav not increased. Testing on 03/09 mostly indicated worsening Covid. Procal negative on 03/08. VBG indicates good ventilation. CT chest showed no mucus plugging; likely worsening viral pneumonia. She appears to be gradually improving today. She appears less short of breath and is using less her accessory muscles. Will continue to monitor. On 03/13, she is requesting multiple nebulizers. (2) COVID-19: Possible 4 weeks of symptoms although given continued fevers through 03/03, treating test date as day #1 for isolation. - Appreciate pulmonology recommendations: - Continued dexamethasone x 10 day course (Ended: 03/09/2021) (3) Hyponatremia: Na trended down on 03/08 -> 03/10 down to 125. On 03/09, it corrected to 132 after her hyperglycemia, so I was less worried. 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 - Held spironolactone on 03/09 as this could easily contribute. - not improving, will give salt load as well low-level Lasix. will consult nephro. (4) Diabetes: A1c was 8.8% in this admission. Blood sugars have been out of control on steroids. - Glycemic pharmacy managing - Initiated insulin gtt on 03/09. Stopped steroids on 03/10 and discussed with pharmacist to avoid hypoglycemia. (5) Atrial fibrillation: New onset morning of 03/02. TTE on 03/04 with normal LVEF (55 - 60%), no significant change from 2018. TSH WNL. - Continue diltiazem 90 mg PO TID - Continue anticoagulation with Xarelto (6) Hypertension: BP today is 160/70. - Held home Lasix on 03/09 for increasing BUN and indication of hypovolemia. - Stopped spironolactone on 03/09 for slight signs of hypovolemia and rising K+. - Continue diltiazem as above (7) Abdominal pain: Uncertain etiology of abdominal pain. CT a/p on 02/28 demonstrated severe diverticulosis of the sigmoid colon; however, no acute inflammatory changes. - Continue home Pepcid, Protonix, and Carafate - None in several days. (8) History of pulmonary embolism: - Chronically on Xarelto - Additionally has IVC filter in place (9) Hypothyroidism: TSH was 1.1 this admission. No signs/symptoms of hypo-/hyperthyroidism. - Continue home Synthroid 25 mcg (10) DVT prophylaxis: DVT ppx: Continue home Xarelto Admission and Anticipated Discharge Date Admission Date: February 28, 2021 Subjective 75 yo female reports feeling better. She continues to feel short of breath, but reports improvement. Review of Systems Review of Systems: All systems reviewed & are unremarkable except as noted in HPI & below Physical Exam Physical Exam: Constitutional: WD/WN, vitals as above Eyes: EOM intact bilaterally; no conjunctival abnormality ENMT: external ear and nose normal, oropharynx normal Neck: trachea midline, no thyromegaly normal visual inspection Respiratory: normal respiratory effort, lungs clear to auscultation no respiratory distress Cardiovascular: RRR, no murmur, no edema Gastrointestinal (Abdomen): Inspection/Auscultation: abdomen normal to inspection; abdomen not distended Musculoskeletal: no cyanosis or clubbing, extremities motor strength 5/5 Skin: no rashes, warm and dry Neurologic: moves all extremities and awake Psychiatric: Orientation: alert, oriented to person and cooperative Results & Data Results & Data ([facility]) Vital Signs (Past 12 Hours) Vital Signs Temp Pulse Pulse Resp BP Pulse Ox 03/13/21 19:11 100 H 20 96 03/13/21 19:00 36.8 C 98 H 19 157/71 H 95 03/13/21 18:35 86 03/13/21 15:06 97 H 22 94 03/13/21 14:27 95 03/13/21 11:41 36.7 C 100 H 19 146/88 H 95 03/13/21 10:56 82 18 95 PG Care Time/CCT Total # of Minutes Spent Total Time Spent with Patient: Total time spent is greater than 50% in coordination of care (as documented) at patient's floor/unit and/or counseling patient: Coding Level of Care Code 27395 Subseq Hosp Care Lvl 2 Diagnoses COPD exacerbation J44.1 COVID-19 U07.1 Hyponatremia E87.1 Diabetes E11.9; Z79.4 Diabetes mellitus complication status: without complication Diabetes mellitus terminal press operator insulin use: with [facility] use Diabetes mellitus type: type 2 Atrial fibrillation I48.91 Hypertension I10 Hypertension type: essential hypertension Abdominal pain R10.9 History of pulmonary embolism Z86.711 Hypothyroidism E03.9 DVT prophylaxis Z29.9 Time Spent (min) 25 (1) Diabetes Diabetes mellitus complication status: without complication Diabetes mellitus terminal press operator insulin use: with [facility] use Diabetes mellitus type: type 2 Qualified Code(s): E11.9 - Type 2 diabetes mellitus without complications; Z79.4 - bed bug exterminator (current) use of insulin (2) Hypertension Hypertension type: essential hypertension Qualified Code(s): I10 - Essential (primary) hypertension
[2021-03-14] MEDS: ALBUT/IPRATROP 3MG/0.5MG NEB 3 ML VIAL NEB PRN ×3 (02:58→14:55)
[2021-03-14] MEDS: PIPERACILLIN/TAZOBACTAM 3.375 GM in DEXTROSE 5% 100 ML IV SCH (03:24)
[2021-03-14] MEDS: LEVOTHYROXINE SODIUM 25 MCG TABLET PO SCH (03:25)
[2021-03-14] MEDS: LIDOCAINE VISCOUS 2% SOLN 60 ML, diphenhydrAMINE Syrup 150 MG, ALUMINUM/MAGNESIUM SUSP ... PO PRN ×2 (03:25→08:09)
[2021-03-14] MEDS: BUDESONIDE 0.25 MG/2 ML VIAL (PULMICORT) NEB SCH ×2 (07:38→19:21)
[2021-03-14] MEDS: FORMOTEROL 20 MCG/2 ML VIAL NEB SCH ×2 (07:38→19:21)
[2021-03-14] MEDS: INSULIN ASPART 100 UNITS/ML 3 ML PEN SC SCH ×4 (08:12→20:21)
[2021-03-14] MEDS: INSULIN GLARGINE SOLOSTAR 100 UNITS/ML 3 ML PEN SQ SCH (08:13)
[2021-03-14] MEDS: ESCITALOPRAM OXALATE 10 MG TAB PO SCH (08:16)
[2021-03-14] MEDS: dilTIAZem HCL 30 MG TAB PO SCH ×3 (08:16→20:20)
[2021-03-14] MEDS: MAGNESIUM OXIDE 400 MG TAB PO SCH ×2 (08:18→20:19)
[2021-03-14] MEDS: THEOPHYLLINE 400 MG EXTENDED REL TAB PO SCH (08:18)
[2021-03-14] MEDS: ROFLUMILAST 500 MCG TAB PO SCH (08:18)
[2021-03-14] MEDS: guaiFENesin 600 MG TABCR PO SCH ×2 (08:18→20:19)
[2021-03-14] MEDS: SODIUM CHLORIDE 1 GM TABLET PO SCH ×2 (08:18→20:20)
[2021-03-14] MEDS: MONTELUKAST SODIUM 10 MG TABLET PO SCH (08:18)
[2021-03-14] MEDS: FAMOTIDINE 20 MG TAB PO SCH (08:18)
[2021-03-14] MEDS: PANTOprazole 40 MG TAB PO SCH ×2 (08:18→20:19)
[2021-03-14 08:19] LABS: Hematocrit (blood only) 29.9 % (37-47); Hemoglobin 9.5 g/dL (12.0-16.0); Mean Corpuscular Hemoglobin 23.2 pg (25-34); Mean Corpuscular Hgb Conc 31.8 g/dL (32-36); Mean Corpuscular Volume 73.1 fL (80-100); Mean Platelet Volume 7.9 fL (7.4-10.4); Platelet Count 514 K/uL (130-400); RDW Coefficient of Variation 16.5 % (11.5-14.5); RDW Standard Deviation 44.1 fL (36.4-46.3); Red Blood Count 4.09 M/uL (4.2-5.4); White Blood Count 12.68 K/uL (4.8-10.8)
[2021-03-14 08:50] LABS: BUN Creatinine Ratio 27.1 (10-20); Calcium 8.4 mg/dl (8.5-10.1); Creatinine Clr Calc Pharmacy 67.6 ml/min; Est GFR (African American) 91.2 ml/min; Est GFR (Non-African American) 78.7 ml/min; Potassium 4.4 mmol/L (3.5-5.1)
[2021-03-14] MEDS ORDERED: INSULIN GLARGINE SOLOSTAR 100 UNITS/ML 3 ML PEN SQ SCH (09:00)
--- NOTE | 2021-03-14 10:17 | Nephrology Progress Note ---
Date of Service March 14, 2021 Assessment & Plan (1) Hyponatremia: * Net 11L volume negative since admission. Remains clinically volume contracted * Elevated Uosm likely reflective of volume contracted state * Hold further diuresis * Hold hydration due to tenuous respiratory status * Continue NaCl 2 g po BID * Serum sodium has stabilized at 123 mmol/L. Continue to monitor (2) COVID-19: * Received 1st of 2 COVID vaccination ~ 1 week ago * COVID + by PCR 02/27/21 * 03/08/[address]: patchy airspace consolidation in both lungs c/w reported history of viral pneumonia. This has progressed compared to the 02/28/21 examination * Patient has completed 10 day course of Dexamethasone (3) COPD with emphysema: * On nebulizer therapy (4) Hypertension: * BP improved today. Continue Diltiazem therapy Admission and Anticipated Discharge Date Admission Date: February 28, 2021 Subjective Remains dyspneic. No new medical concerns Review of Systems Constitutional: no fever Eyes: no problem reported Respiratory: + dyspnea Cardiovascular: no chest pain Physical Exam Eyes: PERRL, conjunctivae normal, anicteric sclerae Respiratory: + audible wheezes Cardiovascular: Rate/Rhythm: + tachycardic Gastrointestinal (Abdomen): Percussion/Palpation: abdomen soft; abdomen nontender Skin: + turgor decreased Neurologic: awake; not confused Results & Data ([facility]) Vital Signs (Past 12 Hours) Vital Signs Temp Pulse Pulse Resp BP Pulse Ox 03/14/21 08:36 36.7 C 95 H 20 162/74 H 92 03/14/21 08:07 144/71 H 03/14/21 07:46 87 03/14/21 07:39 89 20 96 03/14/21 04:00 36.7 C 91 H 20 180/82 H 94 03/14/21 02:58 86 18 96 03/13/21 23:02 20 96 03/13/21 23:00 37.2 C 98 H 18 160/84 H 96 03/13/21 22:20 105 H Laboratory Tests 03/14/21 03/14/21 07:50 07:50 WBC 12.68 H Hgb 9.5 L Hct 29.9 L Plt Count 514 H Sodium 123 L Potassium 4.4 Chloride 93 L Carbon Dioxide 25 BUN 20 H Creatinine 0.74 PG Care Time/CCT Total # of Minutes Spent Total Time Spent with Patient: Total time spent is greater than 50% in coordination of care (as documented) at patient's floor/unit and/or counseling patient: Coding Level of Care Code 91626 Subseq Hosp Care Lvl 3 Diagnoses Hyponatremia E87.1 COVID-19 U07.1 COPD with emphysema J43.9 Hypertension I10 Hypertension type: essential hypertension (1) Hypertension Hypertension type: essential hypertension Qualified Code(s): I10 - Essential (primary) hypertension
--- NOTE | 2021-03-14 11:16 | Pharmacy Report ---
Pharmacy Glycemic Short Note 2 - Date of Service March 14, 2021 - Glycemic Short BSG Results (Last 24 hours): 03/13/21 03/13/21 03/13/21 11:25 12:15 16:37 Glucose 71 POC Glucose 153 H 150 H 03/13/21 03/14/21 03/14/21 20:57 07:50 08:00 Glucose 121 H POC Glucose 200 H 132 H OUTPATIENT ANTIDIABETIC REGIMEN: * Lantus 15 units SQ HS * Humalog 12 units SQ AC * Metformin * A1c = 8.8% on 02/28/21 ASSESSMENT: 03/14 * Pt has received 97 units of insulin over the past 24hrs * 55 units of basal with Lantus * 42 units of bolus with NovoLog * BSGs [phone] mg/dl * AM fasting BSG is in goal range. Will continue with 55 units but change to Q24hrs rather than 45 units in AM + 10 units in PM * Will consider tightening CHO coverage if most post-prandial BSGs > 180 03/13 * Pt has received 84 units of insulin over the past 24hrs * 40 units of basal with Lantus * 44 units of bolus with NovoLog * BSGs [phone] mg/dl * AM fasting BSG elevated at 210mg/dl. Will increase basal insulin * Post-prandial BSGs also elevated - will tighten CR. 03/12 * BSGs yesterday of 241, 131, 166, and 299 mg/dL * Received 82 units of insulin (35 units of Lantus and 47 units of prandial/correctional bolus) * Fasting BSG of 243 mg/dL this morning - will plan to increase basal insulin today * Given upward trend throughout the day yesterday, will tighten carb ratio 03/10 * Fasting BSG elevated this AM at 255 mg/dL - appears IV line with insulin drip got occluded overnight. Unclear what time this happened per RN. * Insulin drip was not infusing overnight, leading to hyperglycemia this AM * Discussed with provider and stopping DXM this AM. Held NPH and started basal insulin for now. Give full weight based stress of 2 dosing as likely still seeing effects of DXM dose from yesterday * Will loosen CF/CR more today as likely BSGs will be trending downward. Will add overnight check. 03/02 * Pt has received 76 units of insulin over the past 24hrs * 22 units of basal with Lantus * 36 units of NPH for steroid induced hyperglycemia * 18 units of bolus with NovoLog * BSGs [phone] mg/dl * AM fasting BSG slightly below goal range at 89 mg/dl this morning. Will decrease HS Lantus back to outpatient dosing * Will slightly lower NPH since patient has additional Lantus on board- may need to adjust tomorrow * Continue to titrate insulin to maintain BSGs below 180 mg/dl 02/28 * 75yo T2DM female with sub-adequate control of DM as an outpatient. Goal A1c would be <8% based on age/co-morbidities * Pt admitted with COPD Exacerbation + COVID19 infection. Pt received high dose steroids x 4 since admission * Prednisone 40mg PO in ED last night around 2200 * Solumedrol 40mg IV at 0100 * Solumedrol 40mg IV at 0900 * Dexamethasone 6mg IV today at 1130 which will continue daily starting tomorrow * Pt with SEVERE Hyperglycemia secondary to steroids, illness/infection, and baseline poor control. * NPH insulin is used to counteract the hyperglycemic effect of daily dosed steroids * The dose of NPH given is dependent on the steroid dose given * For doses of prednisone 40mg/day (or equivalent) or above the NPH dose should be 0.4 units/kg * NPH dosing above is given in addition to patients baseline basal + prandial insulin needs PLAN FOR INPATIENT GLYCEMIC CONTROL: * Basal insulin * increase Lantus 55 units SC daily * Bolus insulin * NovoLog per scale ACHS or Q6hrs while NPO * Goal Range: Low 110 mg/dL - High 140 mg/dL * Correction Factor: 20 mg/dL/unit * Nutritional / Prandial insulin per carb ratio of 1 unit per 5 grams CHO consumed PLAN FOR DISCHARGE: * TBD based on inpatient trends; likely insulin regimen will need adjusted to achieve A1c < 8%
[2021-03-14] MEDS ORDERED: INSULIN GLARGINE SOLOSTAR 100 UNITS/ML 3 ML PEN SQ ONE (11:30)
[2021-03-14] MEDS: cefTRIAXone SODIUM 2,000 MG in DEXTROSE 5% 50 ML IV SCH (11:44)
[2021-03-14] MEDS: RIVAROXABAN 20 MG TAB PO SCH (17:23)
[2021-03-14] MEDS: LORazepam 0.5 MG TAB PO PRN (20:19)
[2021-03-14] MEDS: MELATONIN 3 MG TAB PO SCH (20:19)
[2021-03-14] MEDS: MIRTAZAPINE TAB 15 MG TAB PO SCH (20:19)
--- NOTE | 2021-03-14 21:50 | Hospitalist Progress Note ---
Date of Service March 14, 2021 Assessment & Plan (1) COPD exacerbation: On chronic 2L NC oxygen at home. - Finished Levaquin 5-day course on 03/05. - Finished dexamethasone on 03/09 - Incentive spirometry, flutter valve - Continue budesonide and Perforomist nebulizers in place of her usual main tenance inhalers per pulm recommendations. - Continue Singular, roflumilast, theophylline, and guaifenesin - Consulted pulmonology -> Not much improvement today. 02 requirements hav3 not increased. Testing on 03/09 mostly indicated worsening Covid. Procal negative on 03/08. VBG indicates good ventilation. CT chest showed no mucus plugging; likely worsening viral pneumonia. She appears to be gradually improving today. She appears less short of breath and is using less her accessory muscles. Will continue to monitor. For past 48 hours, she is requesting multiple nebulizers. (2) COVID-19: Possible 4 weeks of symptoms although given continued fevers through 03/03, treating test date as day #1 for isolation. - Appreciate pulmonology recommendations: - Continued dexamethasone x 10 day course (Ended: 03/09/2021) (3) Hyponatremia: Na trended down on 03/08 -> 03/10 down to 125. On 03/09, it corrected to 132 after her hyperglycemia, so I was less worried. 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 - Held spironolactone on 03/09 as this could easily contribute. - not improving, will give salt load as well low-level Lasix. will consult nephro. holding fluids, and continue NaCl 2 gr PO BID. (4) Diabetes: A1c was 8.8% in this admission. Blood sugars have been out of control on steroids. - Glycemic pharmacy managing - Initiated insulin gtt on 03/09. Stopped steroids on 03/10 and discussed with pharmacist to avoid hypoglycemia. (5) Atrial fibrillation: New onset morning of 03/02. TTE on 03/04 with normal LVEF (55 - 60%), no significant change from 2018. TSH WNL. - Continue diltiazem 90 mg PO TID - Continue anticoagulation with Xarelto (6) Hypertension: BP today is 160/70. - Held home Lasix on 03/09 for increasing BUN and indication of hypovolemia. - Stopped spironolactone on 03/09 for slight signs of hypovolemia and rising K+. - Continue diltiazem as above (7) Abdominal pain: Uncertain etiology of abdominal pain. CT a/p on 02/28 demonstrated severe diverticulosis of the sigmoid colon; however, no acute inflammatory changes. - Continue home Pepcid, Protonix, and Carafate - None in several days. (8) History of pulmonary embolism: - Chronically on Xarelto - Additionally has IVC filter in place (9) Hypothyroidism: TSH was 1.1 this admission. No signs/symptoms of hypo-/hyperthyroidism. - Continue home Synthroid 25 mcg (10) DVT prophylaxis: DVT ppx: Continue home Xarelto Admission and Anticipated Discharge Date Admission Date: February 28, 2021 Subjective Patient reports no new symptom. Review of Systems Review of Systems: All systems reviewed & are unremarkable except as noted in HPI & below Physical Exam Physical Exam: Constitutional: WD/WN, vitals as above Eyes: EOM intact bilaterally; no conjunctival abnormality ENMT: external ear and nose normal, oropharynx normal Neck: trachea midline, no thyromegaly normal visual inspection Respiratory: normal respiratory effort, lungs clear to auscultation no respiratory distress Cardiovascular: RRR, no murmur, no edema Gastrointestinal (Abdomen): Inspection/Auscultation: abdomen normal to inspection; abdomen not distended Musculoskeletal: no cyanosis or clubbing, extremities motor strength 5/5 Skin: no rashes, warm and dry Neurologic: moves all extremities and awake Psychiatric: Orientation: alert, oriented to person and cooperative Results & Data Results & Data ([facility]) Vital Signs (Past 12 Hours) Vital Signs Temp Pulse Pulse Resp BP Pulse Ox 03/14/21 19:21 37.4 C 89 20 150/62 H 98 03/14/21 16:00 88 03/14/21 15:01 37.1 C 99 H 19 152/69 H 98 03/14/21 14:56 78 20 96 03/14/21 12:05 37.2 C 89 19 149/77 H 95 03/14/21 11:23 84 18 96 PG Care Time/CCT Total # of Minutes Spent Total Time Spent with Patient: Total time spent is greater than 50% in coordinate measuring machine programmer rdination of care (as documented) at patient's floor/unit and/or counseling patient: Coding Level of Care Code 31460 Subseq Hosp Care Lvl 2 Diagnoses COPD exacerbation J44.1 COVID-19 U07.1 Hyponatremia E87.1 Diabetes E11.9; Z79.4 Diabetes mellitus complication status: without complication Diabetes mellitus adjunct faculty for medical terminology insulin use: with assisted use Diabetes mellitus type: type 2 Atrial fibrillation I48.91 Hypertension I10 Hypertension type: essential hypertension Abdominal pain R10.9 History of pulmonary embolism Z86.711 Hypothyroidism E03.9 DVT prophylaxis Z29.9 Time Spent (min) 25 (1) Diabetes Diabetes mellitus complication status: without complication Diabetes mellitus assisted insulin use: with adjunct faculty for medical terminology use Diabetes mellitus type: type 2 Qualified Code(s): E11.9 - Type 2 diabetes mellitus without complications; Z79.4 - equipment operator intermodal yard (current) use of insulin (2) Hypertension Hypertension type: essential hypertension Qualified Code(s): I10 - Essential (primary) hypertension
[2021-03-15] MEDS: ALBUT/IPRATROP 3MG/0.5MG NEB 3 ML VIAL NEB PRN ×5 (01:10→22:15)
[2021-03-15] MEDS: LEVOTHYROXINE SODIUM 25 MCG TABLET PO SCH (05:39)
[2021-03-15] MEDS: FORMOTEROL 20 MCG/2 ML VIAL NEB SCH ×2 (07:06→19:12)
[2021-03-15] MEDS: BUDESONIDE 0.25 MG/2 ML VIAL (PULMICORT) NEB SCH ×2 (07:06→19:11)
[2021-03-15] MEDS: ESCITALOPRAM OXALATE 10 MG TAB PO SCH (08:18)
[2021-03-15] MEDS: dilTIAZem HCL 30 MG TAB PO SCH ×3 (08:18→21:16)
[2021-03-15] MEDS: MAGNESIUM OXIDE 400 MG TAB PO SCH ×2 (08:19→21:17)
[2021-03-15] MEDS: MONTELUKAST SODIUM 10 MG TABLET PO SCH (08:19)
[2021-03-15] MEDS: PANTOprazole 40 MG TAB PO SCH ×2 (08:19→21:16)
[2021-03-15] MEDS: FAMOTIDINE 20 MG TAB PO SCH (08:19)
[2021-03-15] MEDS: guaiFENesin 600 MG TABCR PO SCH ×2 (08:19→21:15)
[2021-03-15] MEDS: SODIUM CHLORIDE 1 GM TABLET PO SCH ×2 (08:20→21:18)
[2021-03-15] MEDS: THEOPHYLLINE 400 MG EXTENDED REL TAB PO SCH (08:20)
[2021-03-15] MEDS: ROFLUMILAST 500 MCG TAB PO SCH (08:20)
[2021-03-15] MEDS: INSULIN ASPART 100 UNITS/ML 3 ML PEN SC SCH ×4 (08:24→21:00)
[2021-03-15] MEDS ORDERED: INSULIN GLARGINE SOLOSTAR 100 UNITS/ML 3 ML PEN SQ SCH (09:00)
[2021-03-15 09:25] LABS: BUN Creatinine Ratio 27.2 (10-20); Calcium 8.6 mg/dl (8.5-10.1); Creatinine Clr Calc Pharmacy 67.7 ml/min; Est GFR (African American) 91.2 ml/min; Est GFR (Non-African American) 78.7 ml/min; Potassium 4.9 mmol/L (3.5-5.1)
--- NOTE | 2021-03-15 11:03 | Nephrology Progress Note ---
Date of Service March 15, 2021 Assessment & Plan (1) Hyponatremia: * Net 18L volume negative since admission. Remains clinically volume contracted * Initial elevation in Uosm likely reflective of volume contracted state * Recommend holding diuretics * Hold hydration due to tenuous respiratory status * Continue NaCl 2 g po BID * Serum sodium has stabilized at 123 mmol/L. Uosm now < 280 * Monitor serum Na (2) COVID-19: * Received 1st of 2 COVID vaccination ~ 1 week ago * COVID + by PCR 02/27/21 * 03/08/[address]: patchy airspace consolidation in both lungs c/w reported history of viral pneumonia. This has progressed compared to the 02/28/21 examination * Patient has completed 10 day course of Dexamethasone (3) COPD with emphysema: * On nebulizer therapy. Still with poor air exchange and audible wheezing (4) Hypertension: * BP is reasonable. Continue Diltiazem therapy Admission and Anticipated Discharge Date Admission Date: February 28, 2021 Subjective Ms. Clemons was seen & examined in her hospital room this morning. She remains dyspneic w/ audible wheezing Review of Systems Constitutional: no fever Eyes: no problem reported Respiratory: + dyspnea Cardiovascular: no chest pain Physical Exam Eyes: PERRL, conjunctivae normal, anicteric sclerae Respiratory: + audible wheezes poor air exchange Cardiovascular: Rate/Rhythm: + tachycardic Gastrointestinal (Abdomen): Percussion/Palpation: abdomen soft; abdomen nontender Skin: + turgor decreased Neurologic: awake; not confused Results & Data ([facility]) Vital Signs (Past 12 Hours) Vital Signs Temp Pulse Pulse Resp BP Pulse Ox 03/15/21 08:37 36.8 C 98 H 20 161/83 H 92 03/15/21 07:08 84 22 98 03/15/21 06:20 88 03/15/21 03:50 87 22 95 03/15/21 03:16 37.0 C 85 20 131/70 95 03/15/21 01:10 97 H 28 H 96 Laboratory Tests 03/15/21 03/15/21 08:41 10:10 Sodium 123 L Potassium 4.9 Chloride 92 L Carbon Dioxide 25 BUN 20 H Creatinine 0.74 Glucose 139 H NT-Pro-B Natriuret Pep 247 Urine Osmolality 125 L PG Care Time/CCT Total # of Minutes Spent Total Time Spent with Patient: Total time spent is greater than 50% in coordination of care (as documented) at patient's floor/unit and/or counseling patient: Coding Level of Care Code 13134 Subseq Hosp Care Lvl 3 Diagnoses Hyponatremia E87.1 COVID-19 U07.1 COPD with emphysema J43.9 Hypertension I10 Hypertension type: essential hypertension (1) Hypertension Hypertension type: essential hypertension Qualified Code(s): I10 - Essential (primary) hypertension
[2021-03-15] MEDS: cefTRIAXone SODIUM 2,000 MG in DEXTROSE 5% 50 ML IV SCH (12:28)
--- NOTE | 2021-03-15 13:54 | Pharmacy Report ---
Pharmacy Glycemic Short Note 2 - Date of Service March 15, 2021 - Glycemic Short BSG Results (Last 24 hours): 03/14/21 03/14/21 03/15/21 16:31 20:16 07:59 Glucose POC Glucose 134 H 142 H 90 03/15/21 03/15/21 08:41 11:38 Glucose 139 H POC Glucose 93 OUTPATIENT ANTIDIABETIC REGIMEN: * Lantus 15 units SQ HS * Humalog 12 units SQ AC * Metformin * A1c = 8.8% on 02/28/21 ASSESSMENT: 03/15 * Pt has received 95 units of insulin over the past 24 hrs * 55 units of basal * 40 units of bolus * BSGs [phone] mg/dL * AM fasting is slightly below goal range, BSGs have been trending downward but no hypoglycemia, may slightly decrease basal tomorrow if still with low. * Will continue current novolog parameters, loosen if BSGs trend further downward 03/14 * Pt has received 97 units of insulin over the past 24hrs * 55 units of basal with Lantus * 42 units of bolus with NovoLog * BSGs [phone] mg/dl * AM fasting BSG is in goal range. Will continue with 55 units but change to Q24hrs rather than 45 units in AM + 10 units in PM * Will consider tightening CHO coverage if most post-prandial BSGs > 180 03/13 * Pt has received 84 units of insulin over the past 24hrs * 40 units of basal with Lantus * 44 units of bolus with NovoLog * BSGs [phone] mg/dl * AM fasting BSG elevated at 210mg/dl. Will increase basal insulin * Post-prandial BSGs also elevated - will tighten CR. 03/12 * BSGs yesterday of 241, 131, 166, and 299 mg/dL * Received 82 units of insulin (35 units of Lantus and 47 units of prandial/correctional bolus) * Fasting BSG of 243 mg/dL this morning - will plan to increase basal insulin today * Given upward trend throughout the day yesterday, will tighten carb ratio 03/10 * Fasting BSG elevated this AM at 255 mg/dL - appears IV line with insulin drip got occluded overnight. Unclear what time this happened per RN. * Insulin drip was not infusing overnight, leading to hyperglycemia this AM * Discussed with provider and stopping DXM this AM. Held NPH and started basal insulin for now. Give full weight based stress of 2 dosing as likely still seeing effects of DXM dose from yesterday * Will loosen CF/CR more today as likely BSGs will be trending downward. Will add overnight check. 03/02 * Pt has received 76 units of insulin over the past 24hrs * 22 units of basal with Lantus * 36 units of NPH for steroid induced hyperglycemia * 18 units of bolus with NovoLog * BSGs [phone] mg/dl * AM fasting BSG slightly below goal range at 89 mg/dl this morning. Will decrease HS Lantus back to outpatient dosing * Will slightly lower NPH since patient has additional Lantus on board- may need to adjust tomorrow * Continue to titrate insulin to maintain BSGs below 180 mg/dl 02/28 * 75yo T2DM female with sub-adequate control of DM as an outpatient. Goal A1c would be <8% based on age/co-morbidities * Pt admitted with COPD Exacerbation + COVID19 infection. Pt received high dose steroids x 4 since admission * Prednisone 40mg PO in ED last night around 2200 * Solumedrol 40mg IV at 0100 * Solumedrol 40mg IV at 0900 * Dexamethasone 6mg IV today at 1130 which will continue daily starting tomorrow * Pt with SEVERE Hyperglycemia secondary to steroids, illness/infection, and baseline poor control. * NPH insulin is used to counteract the hyperglycemic effect of daily dosed steroids * The dose of NPH given is dependent on the steroid dose given * For doses of prednisone 40mg/day (or equivalent) or above the NPH dose should be 0.4 units/kg * NPH dosing above is given in addition to patients baseline basal + pra ndial insulin needs PLAN FOR INPATIENT GLYCEMIC CONTROL: * Basal insulin * Lantus 55 units SC daily * Bolus insulin * NovoLog per scale ACHS or Q6hrs while NPO * Goal Range: Low 110 mg/dL - High 140 mg/dL * Correction Factor: 20 mg/dL/unit * Nutritional / Prandial insulin per carb ratio of 1 unit per 5 grams CHO consumed PLAN FOR DISCHARGE: * TBD based on inpatient trends; likely insulin regimen will need adjusted to achieve A1c < 8%
[2021-03-15] MEDS: RIVAROXABAN 20 MG TAB PO SCH (17:07)
[2021-03-15] MEDS: MIRTAZAPINE TAB 15 MG TAB PO SCH (21:17)
[2021-03-15] MEDS: MELATONIN 3 MG TAB PO SCH (21:22)
--- NOTE | 2021-03-15 22:27 | Hospitalist Progress Note ---
Date of Service March 15, 2021 Assessment & Plan (1) COPD exacerbation: On chronic 2L NC oxygen at home. - Finished Levaquin 5-day course on 03/05. - Finished dexamethasone on 03/09 - Incentive spirometry, flutter valve - Continue budesonide and Perforomist nebulizers in place of her usual main tenance inhalers per pulm recommendations. - Continue Singular, roflumilast, theophylline, and guaifenesin - Consulted pulmonology -> Not much improvement today. 02 requirements hav3 not increased. Testing on 03/09 mostly indicated worsening Covid. Procal negative on 03/08. VBG indicates good ventilation. CT chest showed no mucus plugging; likely worsening viral pneumonia. She appears to be gradually improving today. She appears less short of breath and is using less her accessory muscles. Will continue to monitor. She continues to require nebs. (2) COVID-19: Possible 4 weeks of symptoms although given continued fevers through 03/03, treating test date as day #1 for isolation. - Appreciate pulmonology recommendations: - Continued dexamethasone x 10 day course (Ended: 03/09/2021) (3) Hyponatremia: Na trended down on 03/08 -> 03/10 down to 125. On 03/09, it corrected to 132 after her hyperglycemia, so I was less worried. 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 - Held spironolactone on 03/09 as this could easily contribute. - not improving, will give salt load as well low-level Lasix. will consult nephro. holding fluids, and continue NaCl 2 gr PO BID. Sodium is gradually improving. Not at goal as of yet. (4) Diabetes: A1c was 8.8% in this admission. Blood sugars have been out of control on steroids. - Glycemic pharmacy managing - Initiated insulin gtt on 03/09. Stopped steroids on 03/10 and discussed with pharmacist to avoid hypoglycemia. (5) Atrial fibrillation: New onset morning of 03/02. TTE on 03/04 with normal LVEF (55 - 60%), no significant change from 2018. TSH WNL. - Continue diltiazem 90 mg PO TID - Continue anticoagulation with Xarelto (6) Hypertension: BP today is 160/70. - Held home Lasix on 03/09 for increasing BUN and indication of hypovolemia. - Stopped spironolactone on 03/09 for slight signs of hypovolemia and rising K+. - Continue diltiazem as above (7) Abdominal pain: Uncertain etiology of abdominal pain. CT a/p on 02/28 demonstrated severe diverticulosis of the sigmoid colon; however, no acute inflammatory changes. - Continue home Pepcid, Protonix, and Carafate - None in several days. (8) History of pulmonary embolism: - Chronically on Xarelto - Additionally has IVC filter in place (9) Hypothyroidism: TSH was 1.1 this admission. No signs/symptoms of hypo-/hyperthyroidism. - Continue home Synthroid 25 mcg (10) DVT prophylaxis: DVT ppx: Continue home Xarelto Admission and Anticipated Discharge Date Admission Date: February 28, 2021 Subjective Patient reports no new symptoms. Review of Systems Review of Systems: All systems reviewed & are unremarkable except as noted in HPI & below Physical Exam Physical Exam: Constitutional: WD/WN, vitals as above Eyes: EOM intact bilaterally; no conjunctival abnormality ENMT: external ear and nose normal, oropharynx normal Neck: trachea midline, no thyromegaly normal visual inspection Respiratory: normal respiratory effort, lungs clear to auscultation no respiratory distress Cardiovascular: RRR, no murmur, no edema Gastrointestinal (Abdomen): Inspection/Auscultation: abdomen normal to inspection; abdomen not distended Musculoskeletal: no cyanosis or clubbing, extremities motor strength 5/5 Skin: no rashes, warm and dry Neurologic: moves all extremities and awake Psychiatric: Orientation: alert, oriented to person and cooperative Results & Data Results & Data ([facility]) Vital Signs (Past 12 Hours) Vital Signs Temp Pulse Pulse Resp BP Pulse Ox 03/15/21 22:15 81 18 98 03/15/21 19:25 37.1 C 90 20 117/77 98 03/15/21 19:12 86 18 98 03/15/21 15:06 85 03/15/21 14:26 84 24 99 03/15/21 14:19 36.2 C L 89 24 159/85 H 95 03/15/21 12:32 36.8 C 95 H 22 147/82 H 93 03/15/21 11:22 87 22 92 PG Care Time/CCT Total # of Minutes Spent Total Time Spent with Patient: Total time spent is greater than 50% in coordination of care (as documented) at patient's floor/unit and/or counseling patient: Coding Level of Care Code 66758 Subseq Hosp Care Lvl 2 Diagnoses COPD exacerbation J44.1 COVID-19 U07.1 Hyponatremia E87.1 Diabetes E11.9; Z79.4 Diabetes mellitus complication status: without complication 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 prison 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 Diabetes mellitus type: type 2 Atrial fibrillation I48.91 Hypertension I10 Hypertension type: essential hypertension Abdominal pain R10.9 History of pulmonary embolism Z86.711 Hypothyroidism E03.9 DVT prophylaxis Z29.9 Time Spent (min) 25 (1) Diabetes Diabetes mellitus complication status: without complication Diabetes mellitus prison insulin use: with research archaeologist use Diabetes mellitus type: type 2 Qualified Code(s): E11.9 - Type 2 diabetes mellitus without complications; 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
[2021-03-16] MEDS: LIDOCAINE VISCOUS 2% SOLN 60 ML, diphenhydrAMINE Syrup 150 MG, ALUMINUM/MAGNESIUM SUSP ... PO PRN (01:02)
[2021-03-16] MEDS: ALBUT/IPRATROP 3MG/0.5MG NEB 3 ML VIAL NEB PRN ×4 (02:36→22:42)
[2021-03-16] MEDS: LEVOTHYROXINE SODIUM 25 MCG TABLET PO SCH (06:22)
[2021-03-16] MEDS: FORMOTEROL 20 MCG/2 ML VIAL NEB SCH ×2 (06:57→19:13)
[2021-03-16] MEDS: BUDESONIDE 0.25 MG/2 ML VIAL (PULMICORT) NEB SCH ×2 (06:57→19:13)
[2021-03-16] MEDS: PANTOprazole 40 MG TAB PO SCH ×2 (08:41→19:59)
[2021-03-16] MEDS: FAMOTIDINE 20 MG TAB PO SCH (08:41)
[2021-03-16] MEDS: SODIUM CHLORIDE 1 GM TABLET PO SCH ×2 (08:41→19:59)
[2021-03-16] MEDS: MONTELUKAST SODIUM 10 MG TABLET PO SCH (08:41)
[2021-03-16] MEDS: MAGNESIUM OXIDE 400 MG TAB PO SCH ×2 (08:41→20:01)
[2021-03-16] MEDS: THEOPHYLLINE 400 MG EXTENDED REL TAB PO SCH (08:41)
[2021-03-16] MEDS: ROFLUMILAST 500 MCG TAB PO SCH (08:41)
[2021-03-16] MEDS: ESCITALOPRAM OXALATE 10 MG TAB PO SCH (08:42)
[2021-03-16] MEDS: guaiFENesin 600 MG TABCR PO SCH ×2 (08:42→20:01)
[2021-03-16] MEDS: dilTIAZem HCL 30 MG TAB PO SCH ×3 (08:42→20:05)
[2021-03-16] MEDS: INSULIN ASPART 100 UNITS/ML 3 ML PEN SC SCH ×4 (09:10→21:00)
[2021-03-16] MEDS: INSULIN GLARGINE SOLOSTAR 100 UNITS/ML 3 ML PEN SQ SCH (09:10)
[2021-03-16] MEDS: cefTRIAXone SODIUM 2,000 MG in DEXTROSE 5% 50 ML IV SCH (12:21)
--- NOTE | 2021-03-16 13:02 | Nephrology Progress Note ---
Date of Service March 16, 2021 Assessment & Plan (1) Hyponatremia: 75-year-old female with history of COPD admitted with increasing shortness of breath for few days, abdominal pain and poor p.o. intake because of nausea. She received 1st dose of COVID vaccine 1 week prior to admission and o n admission she was found to be Hypoxic and COVID positive. she was treated with diuretics and over the course of hospitalization she became more than 18 L net negative. She developed hyponatremia that was thought to be secondary to volume depletion, she was given had IV hydration however sodium stayed persistently low around 123. initially urine osmolality was elevated, urine osmolality decrease to less than 200 yesterday. This morning her serum sodium slightly improved to 125. Overall she is feeling well, denies any further episode of shortness of breath. Has normal renal function. Overall she has been feeling well, eager to go home. Renal function remained stable. Sodium slightly improved to 125. blood pressure fair. -- continue on oral salt tablet. -- monitor serum sodium, hold discharge until serum sodium improved further. as urine osmolality improved, expect sodium to continue to improve will follow (2) Acute and chronic respiratory failure with hypoxia: (3) COVID-19: (4) COPD with emphysema: (5) Hypertension: Admission and Anticipated Discharge Date Admission Date: February 28, 2021 Subjective Mini has been feeling well, denies any shortness of breath or chest pain. P.o. intake has been normal. Voiding normally. Sodium slightly improved to 125 this morning. Review of Systems Review of Systems: All systems reviewed & are unremarkable except as noted in Subjective Physical Exam Constitutional: well developed and well nourished; no acute distress Respiratory: normal respiratory effort, lungs clear to auscultation Cardiovascular: RRR, no murmur, no edema Neurologic: moves all extremities and awake; not confused Psychiatric: A+Ox3, euthymic affect Results & Data ([facility]) Vital Signs (Past 12 Hours) Vital Signs Temp Pulse Pulse Resp BP Pulse Ox 03/16/21 11:18 37.5 C 79 20 146/77 H 92 03/16/21 11:17 90 20 97 03/16/21 07:43 36.6 C 87 20 152/77 H 96 03/16/21 07:33 85 03/16/21 06:57 78 18 99 03/16/21 05:35 86 03/16/21 03:31 101 H 149/70 H 03/16/21 03:17 37 C 90 18 175/71 H 96 03/16/21 02:36 75 18 99 PG Care Time/CCT Total # of Minutes Spent Total Time Spent with Patient: Total time spent is greater than 50% in coordination of care (as documented) at patient's floor/unit and/or counseling patient: Coding Level of Care Code 57086 Subseq Hosp Care Lvl 2 Diagnoses Hyponatremia E87.1 Acute and chronic respiratory failure with hypoxia J96.21 COVID-19 U07.1 COPD with emphysema J43.9 Hypertension I10 Hypertension type: essential hypertension (1) Hypertension Hypertension type: essential hypertension Qualified Code(s): I10 - Essential (primary) hypertension
[2021-03-16] MEDS: RIVAROXABAN 20 MG TAB PO SCH (17:09)
[2021-03-16] MEDS: MIRTAZAPINE TAB 15 MG TAB PO SCH (20:00)
[2021-03-16] MEDS: COUGH DROP (SUGAR FREE) LOZ 24 LOZ/1 BOX BUCCAL PRN ×2 (20:06→22:29)
[2021-03-16] MEDS: MELATONIN 3 MG TAB PO SCH (20:08)
--- NOTE | 2021-03-16 22:11 | Hospitalist Progress Note ---
Date of Service March 16, 2021 Assessment & Plan (1) COPD exacerbation: On chronic 2L [place] oxygen at home. - Finished Levaquin 5-day course on 03/05. - Finished dexamethasone on 03/09 - Incentive spirometry, flutter valve - Continue budesonide and Perforomist nebulizers in place of her usual main tenance inhalers per pulm recommendations. - Continue Singular, roflumilast, theophylline, and guaifenesin - Consulted pulmonology -> Not much improvement today. 02 requirements hav3 not increased. Testing on 03/09 mostly indicated worsening Covid. Procal negative on 03/08. VBG indicates good ventilation. CT chest showed no mucus plugging; likely worsening viral pneumonia. She appears to be gradually improving today. She appears less short of breath and is using less her accessory muscles. Will continue to monitor. Patient continues to require nebs (2) COVID-19: Possible 4 weeks of symptoms although given continued fevers through 03/03, treating test date as day #1 for isolation. - Appreciate pulmonology recommendations: - Continued dexamethasone x 10 day course (Ended: 03/09/2021) (3) Hyponatremia: Na trended down on 03/08 -> 03/10 down to 125. On 03/09, it corrected to 132 after her hyperglycemia, so I was less worried. 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 - Held spironolactone on 03/09 as this could easily contribute. - not improving, will give salt load as well low-level Lasix. will consult nephro. holding fluids, and continue NaCl 2 gr PO BID. Sodium is gradually improving. (4) Diabetes: A1c was 8.8% in this admission. Blood sugars have been out of control on steroids. - Glycemic pharmacy managing - Initiated insulin gtt on 03/09. Stopped steroids on 03/10 and discussed with pharmacist to avoid hypoglycemia. (5) Atrial fibrillation: New onset morning of 03/02. TTE on 03/04 with normal LVEF (55 - 60%), no significant change from 2018. TSH WNL. - Continue diltiazem 90 mg PO TID - Continue anticoagulation with Xarelto (6) Hypertension: BP today is 160/70. - Held home Lasix on 03/09 for increasing BUN and indication of hypovolemia. - Stopped spironolactone on 03/09 for slight signs of hypovolemia and rising K+. - Continue diltiazem as above (7) Abdominal pain: Uncertain etiology of abdominal pain. CT a/p on 02/28 demonstrated severe diverticulosis of the sigmoid colon; however, no acute inflammatory changes. - Continue home Pepcid, Protonix, and Carafate - None in several days. (8) History of pulmonary embolism: - Chronically on Xarelto - Additionally has IVC filter in place (9) Hypothyroidism: TSH was 1.1 this admission. No signs/symptoms of hypo-/hyperthyroidism. - Continue home Synthroid 25 mcg (10) DVT prophylaxis: DVT ppx: Continue home Xarelto Admission and Anticipated Discharge Date Admission Date: February 28, 2021 Subjective 75 yo female reports feeling well. Review of Systems Review of Systems: All systems reviewed & are unremarkable except as noted in HPI & below Physical Exam Physical Exam: Constitutional: WD/WN, vitals as above Eyes: EOM intact bilaterally; no conjunctival abnormality ENMT: external ear and nose normal, oropharynx normal Neck: trachea midline, no thyromegaly normal visual inspection Respiratory: normal respiratory effort, lungs clear to auscultation no respiratory distress Cardiovascular: RRR, no murmur, no edema Gastrointestinal (Abdomen): Inspection/Auscultation: abdomen normal to inspection; abdomen not distended Musculoskeletal: no cyanosis or clubbing, extremities motor strength 5/5 Skin: no rashes, warm and dry Neurologic: moves all extremities and awake Psychiatric: Orientation: alert, oriented to person and cooperative Results & Data Results & Data ([facility]) Vital Signs (Past 12 Hours) Vital Signs Temp Pulse Pulse Resp BP Pulse Ox 03/16/21 20:04 76 139/71 03/16/21 19:34 36.8 C 91 H 20 150/53 H 99 03/16/21 19:13 76 22 97 03/16/21 16:48 100 H 03/16/21 15:42 36.6 C 86 20 152/71 H 96 03/16/21 15:06 93 H 18 96 03/16/21 11:18 37.5 C 79 20 146/77 H 92 03/16/21 11:17 90 20 97 PG Care Time/CCT Total # of Minutes Spent Total Time Spent with Patient: Total time spent is greater than 50% in coordination of care (as documented) at patient's floor/unit and/or counseling patient: Coding Level of Care Code 13743 Subseq Hosp Care Lvl 2 Diagnoses COPD exacerbation J44.1 COVID-19 U07.1 Hyponatremia E87.1 Diabetes E11.9; Z79.4 Diabetes mellitus complication status: without complication Diabetes mellitus care home insulin use: with manager terminal use Diabetes mellitus type: type 2 Atrial fibrillation I48.91 Hypertension I10 Hypertension type: essential hypertension Abdominal pain R10.9 History of pulmonary embolism Z86.711 Hypothyroidism E03.9 DVT prophylaxis Z29.9 Time Spent (min) 25 (1) Diabetes Diabetes mellitus complication status: without complication Diabetes mellitus care home insulin use: with care home use Diabetes mellitus type: type 2 Qualified Code(s): E11.9 - Type 2 diabetes mellitus without complications; Z79.4 - [facility] (current) use of insulin (2) Hypertension Hypertension type: essential hypertension Qualified Code(s): I10 - Essential (primary) hypertension
[2021-03-17] MEDS: ALBUT/IPRATROP 3MG/0.5MG NEB 3 ML VIAL NEB PRN ×4 (03:28→22:36)
[2021-03-17] MEDS: LEVOTHYROXINE SODIUM 25 MCG TABLET PO SCH (06:12)
[2021-03-17] MEDS: BUDESONIDE 0.25 MG/2 ML VIAL (PULMICORT) NEB SCH ×2 (07:14→19:23)
[2021-03-17] MEDS: FORMOTEROL 20 MCG/2 ML VIAL NEB SCH ×2 (07:14→19:23)
[2021-03-17] MEDS: COUGH DROP (SUGAR FREE) LOZ 24 LOZ/1 BOX BUCCAL PRN (07:34)
[2021-03-17] MEDS: SODIUM CHLORIDE 1 GM TABLET PO SCH ×2 (08:01→20:41)
[2021-03-17] MEDS: ROFLUMILAST 500 MCG TAB PO SCH (08:01)
[2021-03-17] MEDS: guaiFENesin 600 MG TABCR PO SCH ×2 (08:01→20:43)
[2021-03-17] MEDS: THEOPHYLLINE 400 MG EXTENDED REL TAB PO SCH (08:01)
[2021-03-17] MEDS: FAMOTIDINE 20 MG TAB PO SCH (08:01)
[2021-03-17] MEDS: MONTELUKAST SODIUM 10 MG TABLET PO SCH (08:01)
[2021-03-17] MEDS: MAGNESIUM OXIDE 400 MG TAB PO SCH ×2 (08:01→20:42)
[2021-03-17] MEDS: PANTOprazole 40 MG TAB PO SCH ×2 (08:02→20:41)
[2021-03-17] MEDS: ESCITALOPRAM OXALATE 10 MG TAB PO SCH (08:02)
[2021-03-17] MEDS: dilTIAZem HCL 30 MG TAB PO SCH ×3 (08:02→20:44)
[2021-03-17] MEDS: INSULIN GLARGINE SOLOSTAR 100 UNITS/ML 3 ML PEN SQ SCH (08:03)
[2021-03-17] MEDS: INSULIN ASPART 100 UNITS/ML 3 ML PEN SC SCH ×4 (08:05→22:07)
[2021-03-17 08:14] LABS: Albumin Level 2.3 gm/dl (3.4-5.0); BUN Creatinine Ratio 27.4 (10-20); Calcium 8.7 mg/dl (8.5-10.1); Est GFR (African American) 102.1 ml/min; Est GFR (Non-African American) 88.1 ml/min; Phosphorus 3.1 mg/dl (2.5-4.9); Potassium 4.3 mmol/L (3.5-5.1)
--- NOTE | 2021-03-17 11:54 | Nephrology Progress Note ---
Date of Service March 17, 2021 Assessment & Plan (1) Hyponatremia: 75-year-old female with history of COPD admitted with increasing shortness of breath for few days, abdominal pain and poor p.o. intake because of nausea. She received 1st dose of COVID vaccine 1 week prior to admission and o n admission she was found to be Hypoxic and COVID positive. she was treated with diuretics and over the course of hospitalization she became more than 18 L net negative. She developed hyponatremia that was thought to be secondary to volume depletion, she was given had IV hydration however sodium stayed persistently low around 123. initially urine osmolality was elevated, urine osmolality decrease to less than 200 yesterday. This morning her serum sodium slightly improved to 125. Overall she is feeling well, denies any further episode of shortness of breath. Has normal renal function. Overall she has been feeling well, eager to go home. Renal function remained stable. Sodium improved to 128. blood pressure fair. -- continue on oral salt tablet. -- continue oral salt tablets 2 grams twice a day -- okay to be discharged with outpatient lab monitoring in 2 days and in a week, copy lab to Dr. Hammond -- please set up outpatient follow-up with Dr. Hammond will follow Admission and Anticipated Discharge Date Admission Date: February 28, 2021 Subjective Mini has been doing well, denies any shortness of breath or chest pain. Appetite has been decent. Volume status acceptable. Blood pressure fair. Sodium improved to 128, urine osmolality continues to be low. Review of Systems Review of Systems: All systems reviewed & are unremarkable except as noted in Subjective Physical Exam Constitutional: well developed and well nourished; no acute distress Respiratory: normal respiratory effort, lungs clear to auscultation Cardiovascular: RRR, no murmur, no edema Neurologic: moves all extremities and awake; not confused Psychiatric: A+Ox3, euthymic affect Results & Data ([facility]) Vital Signs (Past 12 Hours) Vital Signs Temp Pulse Pulse Resp BP Pulse Ox 03/17/21 10:41 100 H 23 98 03/17/21 08:15 36.8 C 83 20 142/76 H 97 03/17/21 07:14 86 19 98 03/17/21 07:00 87 03/17/21 03:50 86 03/17/21 03:41 37 C 88 20 128/61 94 03/17/21 03:28 83 20 96 PG Care Time/CCT Total # of Minutes Spent Total Time Spent with Patient: Total time spent is greater than 50% in coordination of care (as documented) at patient's floor/unit and/or counseling patient: Coding Level of Care Code 18203 Subseq Hosp Care Lvl 2 Diagnoses Hyponatremia E87.1
[2021-03-17] MEDS: RIVAROXABAN 20 MG TAB PO SCH (17:13)
[2021-03-17] MEDS: MIRTAZAPINE TAB 15 MG TAB PO SCH (20:42)
[2021-03-17] MEDS: MELATONIN 3 MG TAB PO SCH (20:48)
--- NOTE | 2021-03-17 23:46 | Hospitalist Progress Note ---
Date of Service March 17, 2021 Assessment & Plan (1) COPD exacerbation: On chronic 2L [place] oxygen at home. - Finished Levaquin 5-day course on 03/05. - Finished dexamethasone on 03/09 - Incentive spirometry, flutter valve - Continue budesonide and Perforomist nebulizers in place of her usual main tenance inhalers per pulm recommendations. - Continue Singular, roflumilast, theophylline, and guaifenesin - Consulted pulmonology -> Not much improvement today. 02 requirements hav3 not increased. Testing on 03/09 mostly indicated worsening Covid. Procal negative on 03/08. VBG indicates good ventilation. CT chest showed no mucus plugging; likely worsening viral pneumonia. She appears to be gradually improving today. She appears less short of breath and is using less her accessory muscles. Will continue to monitor. Patient continues to require nebs (2) COVID-19: Possible 4 weeks of symptoms although given continued fevers through 03/03, treating test date as day #1 for isolation. - Appreciate pulmonology recommendations: - Continued dexamethasone x 10 day course (Ended: 03/09/2021) (3) Hyponatremia: Na trended down on 03/08 -> 03/10 down to 125. On 03/09, it corrected to 132 after her hyperglycemia, so I was less worried. 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 - Held spironolactone on 03/09 as this could easily contribute. - not improving, will give salt load as well low-level Lasix. will consult nephro. holding fluids, and continue NaCl 2 gr PO BID. Sodium is gradually improving now 128 (4) Diabetes: A1c was 8.8% in this admission. Blood sugars have been out of control on steroids. - Glycemic pharmacy managing - Initiated insulin gtt on 03/09. Stopped steroids on 03/10 and discussed with pharmacist to avoid hypoglycemia. (5) Atrial fibrillation: New onset morning of 03/02. TTE on 03/04 with normal LVEF (55 - 60%), no significant change from 2018. TSH WNL. - Continue diltiazem 90 mg PO TID - Continue anticoagulation with Xarelto (6) Hypertension: BP today is 160/70. - Held home Lasix on 03/09 for increasing BUN and indication of hypovolemia. - Stopped spironolactone on 03/09 for slight signs of hypovolemia and rising K+. - Continue diltiazem as above (7) Abdominal pain: Uncertain etiology of abdominal pain. CT a/p on 02/28 demonstrated severe diverticulosis of the sigmoid colon; however, no acute inflammatory changes. - Continue home Pepcid, Protonix, and Carafate - None in several days. (8) History of pulmonary embolism: - Chronically on Xarelto - Additionally has IVC filter in place (9) Hypothyroidism: TSH was 1.1 this admission. No signs/symptoms of hypo-/hyperthyroidism. - Continue home Synthroid 25 mcg Disposition: Patient appears to be ready for discharge from a pulmonary perspective, however awaiting for sodium to improve to about 130. (10) DVT prophylaxis: DVT ppx: Continue home Xarelto Admission and Anticipated Discharge Date Admission Date: February 28, 2021 Subjective Patient reports no new complaints., Review of Systems Review of Systems: All systems reviewed & are unremarkable except as noted in HPI & below Physical Exam Physical Exam: Constitutional: WD/WN, vitals as above Eyes: EOM intact bilaterally; no conjunctival abnormality ENMT: external ear and nose normal, oropharynx normal Neck: trachea midline, no thyromegaly normal visual inspection Respiratory: normal respiratory effort, lungs clear to auscultation no respiratory distress Cardiovascular: RRR, no murmur, no edema Gastrointestinal (Abdomen): Inspection/Auscultation: abdomen normal to inspection; abdomen not distended Musculoskeletal: no cyanosis or clubbing, extremities motor strength 5/5 Skin: no rashes, warm and dry Neurologic: moves all extremities and awake Psychiatric: Orientation: alert, oriented to person and cooperative Results & Data Results & Data ([facility]) Vital Signs (Past 12 Hours) Vital Signs Temp Pulse Pulse Resp BP Pulse Ox 03/17/21 23:41 36.8 C 83 18 145/65 H 96 03/17/21 22:36 88 18 97 03/17/21 20:05 36.7 C 88 20 146/74 H 94 03/17/21 19:23 87 20 97 03/17/21 15:15 87 18 98 03/17/21 15:13 103 H 03/17/21 14:59 36.7 C 82 20 138/80 96 03/17/21 11:59 36.7 C 87 20 154/77 H 96 PG Care Time/CCT Total # of Minutes Spent Total Time Spent with Patient: Total time spent is greater than 50% in coordination of care (as documented) at patient's floor/unit and/or counseling patient: Coding Level of Care Code 75914 Subseq Hosp Care Lvl 2 Diagnoses COPD exacerbation J44.1 COVID-19 U07.1 Hyponatremia E87.1 Diabetes E11.9; Z79.4 Diabetes mellitus complication status: without complication Diabetes mellitus termite inspector insulin use: with termite inspector use Diabetes mellitus type: type 2 Atrial fibrillation I48.91 Hypertension I10 Hypertension type: essential hypertension Abdominal pain R10.9 History of pulmonary embolism Z86.711 Hypothyroidism E03.9 DVT prophylaxis Z29.9 Time Spent (min) 25 (1) Diabetes Diabetes mellitus complication status: without complication Diabetes mellitus termite inspector insulin use: with termite inspector use Diabetes mellitus type: type 2 Qualified Code(s): E11.9 - Type 2 diabetes mellitus without complications; Z79.4 - [facility] (current) use of insulin (2) Hypertension Hypertension type: essential hypertension Qualified Code(s): I10 - Essential (primary) hypertension
[2021-03-18] MEDS: ALBUT/IPRATROP 3MG/0.5MG NEB 3 ML VIAL NEB PRN ×3 (03:35→15:41)
[2021-03-18] MEDS: LEVOTHYROXINE SODIUM 25 MCG TABLET PO SCH (05:54)
[2021-03-18] MEDS: FORMOTEROL 20 MCG/2 ML VIAL NEB SCH ×2 (06:59→19:21)
[2021-03-18] MEDS: BUDESONIDE 0.25 MG/2 ML VIAL (PULMICORT) NEB SCH ×2 (06:59→19:21)
[2021-03-18 08:54] LABS: BUN Creatinine Ratio 25.4 (10-20); Calcium 9.1 mg/dl (8.5-10.1); Creatinine Clr Calc Pharmacy 73.6 ml/min; Est GFR (African American) 97.5 ml/min; Est GFR (Non-African American) 84.2 ml/min
[2021-03-18] MEDS ORDERED: INSULIN GLARGINE SOLOSTAR 100 UNITS/ML 3 ML PEN SQ SCH (09:00)
[2021-03-18] MEDS: INSULIN ASPART 100 UNITS/ML 3 ML PEN SC SCH ×4 (09:24→21:09)
[2021-03-18] MEDS: MONTELUKAST SODIUM 10 MG TABLET PO SCH (09:27)
[2021-03-18] MEDS: MAGNESIUM OXIDE 400 MG TAB PO SCH ×2 (09:27→20:18)
[2021-03-18] MEDS: ROFLUMILAST 500 MCG TAB PO SCH (09:27)
[2021-03-18] MEDS: guaiFENesin 600 MG TABCR PO SCH ×2 (09:27→20:19)
[2021-03-18] MEDS: THEOPHYLLINE 400 MG EXTENDED REL TAB PO SCH (09:27)
[2021-03-18] MEDS: dilTIAZem HCL 30 MG TAB PO SCH ×3 (09:27→20:20)
[2021-03-18] MEDS: FAMOTIDINE 20 MG TAB PO SCH (09:27)
[2021-03-18] MEDS: ESCITALOPRAM OXALATE 10 MG TAB PO SCH (09:27)
[2021-03-18] MEDS: PANTOprazole 40 MG TAB PO SCH ×2 (09:27→20:17)
[2021-03-18] MEDS: SODIUM CHLORIDE 1 GM TABLET PO SCH ×2 (09:27→20:17)
[2021-03-18 10:06] LABS: Potassium 4.5 mmol/L (3.5-5.1)
[2021-03-18 10:08] LABS: Magnesium 2.1 mg/dl (1.8-2.4)
--- NOTE | 2021-03-18 10:52 | Nephrology Progress Note ---
Date of Service March 18, 2021 Assessment & Plan (1) Hyponatremia: 75-year-old female with history of COPD admitted with increasing shortness of breath for few days, abdominal pain and poor p.o. intake because of nausea. She received 1st dose of COVID vaccine 1 week prior to admission and o n admission she was found to be Hypoxic and COVID positive. she was treated with diuretics and over the course of hospitalization she became more than 18 L net negative. She developed hyponatremia that was thought to be secondary to volume depletion, she was given had IV hydration however sodium stayed persistently low around 123. initially urine osmolality was elevated, urine osmolality decrease to less than 200 yesterday. This morning her serum sodium slightly improved to 125. Overall she is feeling well, denies any further episode of shortness of breath. Has normal renal function. Overall she has been feeling well, eager to go home. Renal function remained stable. Sodium improved to 131. --decrease oral salt tablets to 1 gram twice a day -- okay to be discharged with outpatient lab monitoring in a week, copy lab to PCP. --No outpatient Nephrology follow-up needed will sign off Admission and Anticipated Discharge Date Admission Date: February 28, 2021 Subjective Mini doing well, no shortness of breath or chest pain. Appetite has been dec ent. Volume status acceptable. Blood pressure high. Sodium improved to 131., urine osmolality continues to be low. Review of Systems Review of Systems: All systems reviewed & are unremarkable except as noted in Subjective Physical Exam Constitutional: well developed and well nourished; no acute distress Respiratory: normal respiratory effort, lungs clear to auscultation Cardiovascular: RRR, no murmur, no edema Neurologic: moves all extremities and awake; not confused Psychiatric: A+Ox3, euthymic affect Results & Data ([facility]) Vital Signs (Past 12 Hours) Vital Signs Temp Pulse Pulse Resp BP Pulse Ox 03/18/21 08:01 36.8 C 82 20 170/78 H 99 03/18/21 07:40 79 03/18/21 07:00 87 18 97 03/18/21 05:11 88 03/18/21 04:27 36.7 C 80 18 163/68 H 92 03/18/21 03:37 80 12 96 03/17/21 23:41 36.8 C 83 18 145/65 H 96 PG Care Time/CCT Total # of Minutes Spent Total Time Spent with Patient: Total time spent is greater than 50% in coordination of care (as documented) at patient's floor/unit and/or counseling patient: Coding Level of Care Code 92122 Subseq Hosp Care Lvl 2 Diagnoses Hyponatremia E87.1
--- NOTE | 2021-03-18 12:16 | Pharmacy Report ---
Pharmacy Glycemic Short Note 2 - Date of Service March 18, 2021 - Glycemic Short BSG Results (Last 24 hours): 03/17/21 03/17/21 03/17/21 12:20 17:12 21:57 Glucose POC Glucose 110 H 109 H 97 03/18/21 03/18/21 03/18/21 07:45 08:06 11:18 Glucose 82 POC Glucose 83 88 OUTPATIENT ANTIDIABETIC REGIMEN: * Lantus 15 units SQ HS * Humalog 12 units SQ AC * Metformin * A1c = 8.8% on 02/28/21 ASSESSMENT: 03/18 * Patient received total of 65 units of insulin yesterday, of which 50 units were basal insulin * BSG this AM 83 mg/dL - plan to scale back on basal as BSGs, will trial more of a 50/50 split with Lantus/novolog. * Lunch BSG 88 mg/dL - will scale back on novolog 03/15 * Pt has received 95 units of insulin over the past 24 hrs * 55 units of basal * 40 units of bolus * BSGs [phone] mg/dL * AM fasting is slightly below goal range, BSGs have been trending downward but no hypoglycemia, may slightly decrease basal tomorrow if still with low. * Will continue current novolog parameters, loosen if BSGs trend further downward 03/14 * Pt has received 97 units of insulin over the past 24hrs * 55 units of basal with Lantus * 42 units of bolus with NovoLog * BSGs [phone] mg/dl * AM fasting BSG is in goal range. Will continue with 55 units but change to Q24hrs rather than 45 units in AM + 10 units in PM * Will consider tightening CHO coverage if most post-prandial BSGs > 180 03/13 * Pt has received 84 units of insulin over the past 24hrs * 40 units of basal with Lantus * 44 units of bolus with NovoLog * BSGs [phone] mg/dl * AM fasting BSG elevated at 210mg/dl. Will increase basal insulin * Post-prandial BSGs also elevated - will tighten CR. PLAN FOR INPATIENT GLYCEMIC CONTROL: * Basal insulin - decrease * Lantus 30 units daily * Bolus insulin * NovoLog per scale ACHS or Q6hrs while NPO * Goal Range: Low 110 mg/dL - High 140 mg/dL * Correction Factor: 30 mg/dL/unit * Nutritional / Prandial insulin per carb ratio of 1 unit per 11 grams CHO consumed PLAN FOR DISCHARGE: * TBD based on inpatient trends; likely insulin regimen will need adjusted to achieve A1c < 8%
--- NOTE | 2021-03-18 15:05 | Hospitalist Progress Note ---
Date of Service March 18, 2021 Assessment & Plan (1) COPD exacerbation: On chronic 2L [place] oxygen at home. - Finished Levaquin 5-day course on 03/05. - Finished dexamethasone on 03/09 - Incentive spirometry, flutter valve - Continue budesonide and Perforomist nebulizers in place of her usual main tenance inhalers per pulm recommendations. - Continue Singular, roflumilast, theophylline, and guaifenesin - Consulted pulmonology -> Doing well today. Breathing is at baseline per patient. (2) COVID-19: Possible 4 weeks of symptoms although given continued fevers through 03/03, treating test date as day #1 for isolation. - Appreciate pulmonology recommendations: - Continued dexamethasone x 10 day course (Ended: 03/09/2021) (3) Hyponatremia: Na trended down on 03/08 -> 03/10 down to 125. On 03/09, it corrected to 132 after her hyperglycemia, so I was less worried. 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 - Held spironolactone on 03/09 as this could easily contribute. - Improving today to 131. Will discharge on salt tablets. (4) Diabetes: A1c was 8.8% in this admission. Blood sugars have been out of control on steroids. - Glycemic pharmacy managing - Initiated insulin gtt on 03/09. Stopped steroids on 03/10 and discussed with pharmacist to avoid hypoglycemia. (5) Atrial fibrillation: New onset morning of 03/02. TTE on 03/04 with normal LVEF (55 - 60%), no significant change from 2018. TSH WNL. - Continue diltiazem 90 mg PO TID - Continue anticoagulation with Xarelto (6) Hypertension: BP today is 135/60. - Held home Lasix on 03/09 for increasing BUN and indication of hypovolemia. - Stopped spironolactone on 03/09 for slight signs of hypovolemia and rising K+. - Continue diltiazem as above (7) Abdominal pain: Uncertain etiology of abdominal pain. CT a/p on 02/28 demonstrated severe diverticulosis of the sigmoid colon; however, no acute inflammatory changes. - Continue home Pepcid, Protonix, and Carafate - None in days. (8) History of pulmonary embolism: - Chronically on Xarelto - Additionally has IVC filter in place (9) Hypothyroidism: TSH was 1.1 this admission. No signs/symptoms of hypo-/hyperthyroidism. - Continue home Synthroid 25 mcg (10) DVT prophylaxis: DVT ppx: Continue home Xarelto Admission and Anticipated Discharge Date Admission Date: February 28, 2021 Subjective Feeling well. Feels she is at her breathing baseline. Reports no fevers/chills, chest pain, shortness of breath, abdominal pain, nausea, or vomiting. Physical Exam Constitutional: WD/WN, vitals as above Eyes: EOM intact bilaterally; no conjunctival abnormality ENMT: external ear and nose normal, oropharynx normal Neck: trachea midline, no thyromegaly normal visual inspection Respiratory: normal respiratory effort, lungs clear to auscultation no respiratory distress Cardiovascular: RRR, no murmur, no edema Gastrointestinal (Abdomen): Inspection/Auscultation: abdomen normal to inspection; abdomen not distended Musculoskeletal: no cyanosis or clubbing, extremities motor strength 5/5 Skin: no rashes, warm and dry Neurologic: moves all extremities and awake Psychiatric: Orientation: alert, oriented to person and cooperative Results & Data Results & Data ([facility]) Vital Signs (Past 12 Hours) Vital Signs Temp Pulse Pulse Resp BP Pulse Ox 03/18/21 14:35 36.8 C 81 20 134/62 96 03/18/21 11:28 36.4 C L 64 20 127/72 91 03/18/21 11:00 101 H 20 97 03/18/21 08:01 36.8 C 82 20 170/78 H 99 03/18/21 07:40 79 03/18/21 07:00 87 18 97 03/18/21 05:11 88 03/18/21 04:27 36.7 C 80 18 163/68 H 92 03/18/21 03:37 80 12 96 PG Care Time/CCT Total # of Minutes Spent Total Time Spent with Patient: Total time spent is greater than 50% in coordination of care (as documented) at patient's floor/unit and/or counseling patient: Coding Level of Care Code 20451 Subseq Hosp Care Lvl 2 Diagnoses COPD exacerbation J44.1 COVID-19 U07.1 Hyponatremia E87.1 Diabetes E11.9; Z79.4 Diabetes mellitus complication status: without complication Diabetes mellitus nursing home insulin use: with telesales representative use Diabetes mellitus type: type 2 Atrial fibrillation I48.91 Hypertension I10 Hypertension type: essential hypertension Abdominal pain R10.9 History of pulmonary embolism Z86.711 Hypothyroidism E03.9 DVT prophylaxis Z29.9 (1) Diabetes Diabetes mellitus complication status: without complication Diabetes mellitus telesales representative insulin use: with telesales representative use Diabetes mellitus type: type 2 Qualified Code(s): E11.9 - Type 2 diabetes mellitus without complications; Z79.4 - [facility] (current) use of insulin (2) Hypertension Hypertension type: essential hypertension Qualified Code(s): I10 - Essential (primary) hypertension
[2021-03-18] MEDS: LIDOCAINE VISCOUS 2% SOLN 60 ML, diphenhydrAMINE Syrup 150 MG, ALUMINUM/MAGNESIUM SUSP ... PO PRN (17:28)
[2021-03-18] MEDS: RIVAROXABAN 20 MG TAB PO SCH (17:28)
[2021-03-18] MEDS: COUGH DROP (SUGAR FREE) LOZ 24 LOZ/1 BOX BUCCAL PRN (17:32)
[2021-03-18] MEDS: MIRTAZAPINE TAB 15 MG TAB PO SCH (20:18)
[2021-03-18] MEDS: MELATONIN 3 MG TAB PO SCH (20:22)
[2021-03-19] MEDS: ALBUT/IPRATROP 3MG/0.5MG NEB 3 ML VIAL NEB PRN ×4 (00:46→14:54)
[2021-03-19] MEDS: LEVOTHYROXINE SODIUM 25 MCG TABLET PO SCH (06:06)
[2021-03-19 06:08] LABS: Hematocrit (blood only) 27.2 % (37-47); Hemoglobin 8.6 g/dL (12.0-16.0); Mean Corpuscular Hgb Conc 31.6 g/dL (32-36); Mean Platelet Volume 7.7 fL (7.4-10.4); Platelet Count 449 K/uL (130-400); RDW Coefficient of Variation 17.8 % (11.5-14.5); RDW Standard Deviation 49.2 fL (36.4-46.3); Red Blood Count 3.58 M/uL (4.2-5.4); White Blood Count 8.51 K/uL (4.8-10.8)
[2021-03-19 06:43] LABS: BUN Creatinine Ratio 33.5 (10-20); Calcium 8.5 mg/dl (8.5-10.1); Creatinine Clr Calc Pharmacy 90.3 ml/min; Est GFR (Non-African American) 90.6 ml/min; Magnesium 2.1 mg/dl (1.8-2.4); Potassium 4.4 mmol/L (3.5-5.1)
[2021-03-19] MEDS: FORMOTEROL 20 MCG/2 ML VIAL NEB SCH (07:16)
[2021-03-19] MEDS: BUDESONIDE 0.25 MG/2 ML VIAL (PULMICORT) NEB SCH (07:16)
[2021-03-19] MEDS: FAMOTIDINE 20 MG TAB PO SCH (08:08)
[2021-03-19] MEDS: ESCITALOPRAM OXALATE 10 MG TAB PO SCH (08:08)
[2021-03-19] MEDS: THEOPHYLLINE 400 MG EXTENDED REL TAB PO SCH (08:08)
[2021-03-19] MEDS: MONTELUKAST SODIUM 10 MG TABLET PO SCH (08:08)
[2021-03-19] MEDS: ROFLUMILAST 500 MCG TAB PO SCH (08:08)
[2021-03-19] MEDS: SODIUM CHLORIDE 1 GM TABLET PO SCH (08:08)
[2021-03-19] MEDS: guaiFENesin 600 MG TABCR PO SCH (08:08)
[2021-03-19] MEDS: MAGNESIUM OXIDE 400 MG TAB PO SCH (08:08)
[2021-03-19] MEDS: PANTOprazole 40 MG TAB PO SCH (08:08)
[2021-03-19] MEDS: dilTIAZem HCL 30 MG TAB PO SCH ×2 (08:08→12:45)
[2021-03-19] MEDS: INSULIN ASPART 100 UNITS/ML 3 ML PEN SC SCH ×2 (08:09→12:28)
--- NOTE | 2021-03-19 11:30 | Pharmacy Report ---
Pharmacy Glycemic Short Note 2 - Date of Service March 19, 2021 - Glycemic Short BSG Results (Last 24 hours): 03/18/21 03/18/21 03/19/21 16:00 20:47 05:36 Glucose 59 L POC Glucose 116 H 128 H 03/19/21 03/19/21 07:32 11:18 Glucose POC Glucose 74 105 H OUTPATIENT ANTIDIABETIC REGIMEN: * Lantus 15 units SQ HS * Humalog 12 units SQ AC * Metformin * A1c = 8.8% on 02/28/21 ASSESSMENT: 03/19 * Patient received total of 37 units of insulin yesterday, of which 30 were basal insulin (40% reduction in dose from day prior) * Fasting BSG 74 mg/dL, on lab draw 59 mg/dL - no symptoms of hypoglycemia from notes * Unclear why insulin requirements have dramatically decreased over the past few days. Still adequate PO intake. (Total units/day decreasing from 78 units to 65 units to 37 units over last 3 days). Finished course of abx - possibly related to infection control * Will hold Am basal, plan to resume patient's home Lantus 15 units for tonight 03/18 * Patient received total of 65 units of insulin yesterday, of which 50 units were basal insulin * BSG this AM 83 mg/dL - plan to scale back on basal as BSGs, will trial more of a 50/50 split with Lantus/novolog. * Lunch BSG 88 mg/dL - will scale back on novolog 03/15 * Pt has received 95 units of insulin over the past 24 hrs * 55 units of basal * 40 units of bolus * BSGs [phone] mg/dL * AM fasting is slightly below goal range, BSGs have been trending downward but no hypoglycemia, may slightly decrease basal tomorrow if still with low. * Will continue current novolog parameters, loosen if BSGs trend further downward 03/14 * Pt has received 97 units of insulin over the past 24hrs * 55 units of basal with Lantus * 42 units of bolus with NovoLog * BSGs [phone] mg/dl * AM fasting BSG is in goal range. Will continue with 55 units but change to Q24hrs rather than 45 units in AM + 10 units in PM * Will consider tightening CHO coverage if most post-prandial BSGs > 180 03/13 * Pt has received 84 units of insulin over the past 24hrs * 40 units of basal with Lantus * 44 units of bolus with NovoLog * BSGs [phone] mg/dl * AM fasting BSG elevated at 210mg/dl. Will increase basal insulin * Post-prandial BSGs also elevated - will tighten CR. PLAN FOR INPATIENT GLYCEMIC CONTROL: * Basal insulin - decrease * Lantus 15 units HS * Bolus insulin * NovoLog per scale ACHS or Q6hrs while NPO * Goal Range: Low 110 mg/dL - High 140 mg/dL * Correction Factor: 30 mg/dL/unit * Nutritional / Prandial insulin per carb ratio of 1 unit per 11 grams CHO consumed PLAN FOR DISCHARGE: * TBD based on inpatient trends; likely insulin regimen will need adjusted to achieve A1c < 8%
--- NOTE | 2021-03-19 17:49 | Discharge Summary ---
Date of Service March 19, 2021 Admission HPI Per Admitting Provider Mini Clemons is a 75-year-old female with past medical history significant for hypertension, pulmonary embolism on chronic anticoagulation, COPD, CHF; who presents for concerns of abdominal pain and shortness of breath over the last several days. Patient has been having ongoing intermittent abdominal pain over the last several weeks, however over the last 2 to 3 days she has been unable to tolerate food or liquid, and has had increasing shortness of breath despite her inhaler regimen. As this became increasingly more difficult, she decided tonight that she needed to be seen in the hospital. Of note she did receive one of the 2 doses of her COVID-19 vaccination. In the ED received multiple rounds of albuterol nebs with no improvement in her symptoms. Continuing to endorse right-sided abdominal pain/flank tenderness. Endorses nausea, and changes in bowel movements. Denies chest pain, palpitations, loss of consciousness, dizziness, lightheadedness, or vomiting. Principal Diagnosis Covid-19 Discharge Exam Constitutional WD/WN, vitals as above Eyes EOM intact bilaterally; no conjunctival abnormality ENMT external ear and nose normal, oropharynx normal Neck trachea midline, no thyromegaly normal visual inspection Respiratory normal respiratory effort, lungs clear to auscultation no respiratory distress Cardiovascular RRR, no murmur, no edema Gastrointestinal (Abdomen) Inspection/Auscultation: abdomen normal to inspection; abdomen not distended Musculoskeletal no cyanosis or clubbing, extremities motor strength 5/5 Skin no rashes, warm and dry Neurologic moves all extremities and awake Psychiatric Orientation: alert, oriented to person and cooperative Discharge Data Allergies Allergy/AdvReac Type Severity Reaction Status Date / Time rabies vaccine, duck-embryo Allergy Severe HIVES Verified 02/27/21 23:12 ragweed pollen Allergy Unknown UNKNOWN Verified 02/27/21 23:12 tomato Allergy Unknown HIVES Verified 02/27/21 23:12 Consultations 02/28/21 00:23 ED Decision to Admit Stat 03/03/21 08:09 Consult Pulmonology Routine 03/12/21 10:41 Consult Nephrology Routine Ordered Studies 02/28/21 00:54 CT abd pelvis IV con only Urgent CT chest diagnostic wo con Urgent 03/08/21 13:06 CT chest diagnostic wo con Urgent Hospital Course (1) COPD exacerbation: On chronic 2L NC oxygen at home. - Finished Levaquin 5-day course on 03/05. - Finished dexamethasone on 03/09 - Incentive spirometry, flutter valve - Continue budesonide and Perforomist nebulizers in place of her usual maintenance inhalers per pulm recommendations. - Continue Singular, roflumilast, theophylline, and guaifenesin - Consulted pulmonology -> Doing well today. Breathing is at baseline per patient. (2) COVID-19: Possible 4 weeks of symptoms although given continued fevers through 03/03, treating test date as day #1 for isolation. - Appreciate pulmonology recommendations: - Continued dexamethasone x 10 day course (Ended: 03/09/2021) (3) Hyponatremia: Na trended down on 03/08 -> 03/10 down to 125. On 03/09, it corrected to 132 after her hyperglycemia, so I was less worried. 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 - Improving today to 132. Held furosemide on discharge as this could contribute. Will see PCP early next week to check Na. (4) Diabetes: A1c was 8.8% in this admission. Blood sugars were out of control on steroids. - Glycemic pharmacy managing (5) Atrial fibrillation: New onset morning of 03/02. TTE on 03/04 with normal LVEF (55 - 60%), no significant change from 2018. TSH WNL. - Continue diltiazem 90 mg PO TID - Continue anticoagulation with Xarelto (6) Hypertension: BP today is 135/60. - Held home Lasix on 03/09 for increasing BUN and indication of hypovolemia. - Stopped spironolactone on 03/09 for slight signs of hypovolemia and rising K+. - Continue diltiazem as above (7) Abdominal pain: Uncertain etiology of abdominal pain. CT a/p on 02/28 demonstrated severe diverticulosis of the sigmoid colon; however, no acute inflammatory changes. - Continue home Pepcid, Protonix, and Carafate - None in days. (8) History of pulmonary embolism: - Chronically on Xarelto - Additionally has IVC filter in place (9) Hypothyroidism: TSH was 1.1 this admission. No signs/symptoms of hypo-/hyperthyroidism. - Continue home Synthroid 25 mcg (10) DVT prophylaxis: DVT ppx: Continue home Xarelto Total Time Total Time Spent Total Time Spent (In Minutes): 35 Discharge Plan Discharge Items Patient Disposition: Home - Home Health Services Reason For Visit: COPD EXACERBATION Discharge Diagnosis: Covid-19, breathing issues Activity: Resume your previous activity Non-emergency contact: Primary Care Provider Call non-emergency contact if: your symptoms worsen and your temperature is above 101 Follow-up/Referrals: Dayna Bullard PA-C [Outside Practitioners] - 03/22/21 1:15 pm Diet: Heart Healthy Addtl Attending Provider Instructions: You were admitted to the hospital with Covid-19 which caused significant breathing issues. You are slowing getting better. Please follow-up with your PCP in a week to be sure you are still doing well. Please have your PCP check your blood counts and sodium. Your sodium was low, but coming up to normal on discharge. I don't want to cause your sodium to go too high, so I am holding off on extra salt tabs because I think it will return to normal on its own as you heal. Pending Studies at Discharge: No Stand-Alone Forms: [facility], Smoking Cessation Medications and DC Order Prescriptions: Continued Trelegy Ellipta 100-62.5-25 mcg blister with device 1 inh inhalation DAILY RF: 0 albuterol sulfate 90 mcg/actuation HFA aerosol inhaler 2 puff inhalation Q6H PRN (Reason: Shortness Of Breath Or Wheezing) Qty: 18 RF: 3 Lantus Solostar U-100 Insulin 100 unit/mL (3 mL) insulin pen 15 unit subcut DAILY@2100 RF: 0 insulin lispro [Humalog KwikPen Insulin] 100 unit/mL insulin pen 12 unit SUBCUT TIDM RF: 0 quetiapine 200 mg Tablet 200 mg PO HS RF: 0 levothyroxine 25 mcg Tablet 25 mcg PO QAM RF: 0 famotidine 20 mg Tablet 20 mg PO QAM RF: 0 pantoprazole 40 mg Tablet,Delayed Release (Dr/Ec) 40 mg PO BID RF: 0 mirtazapine 30 mg tablet 30 mg PO HS RF: 0 metformin 500 mg Tablet Extended Release 24 Hr 500 mg PO BID RF: 0 spironolactone 50 mg Tablet 100 mg PO QAM RF: 0 escitalopram oxalate 10 mg Tablet 15 mg PO QAM RF: 0 Xarelto 20 mg Tablet 20 mg PO QAM RF: 0 metoprolol succinate 25 mg Capsule,Sprinkle,Er 24hr 25 mg PO BID RF: 0 magnesium oxide 400 mg magnesium Tablet 400 mg PO BID RF: 0 21cen Vit-D [place] 400iu Chew 1 tab PO DAILY RF: 0 albuterol sulfate 2.5 mg /3 mL (0.083 %) solution for nebulization 2.5 mg inhalation Q4 PRN (Reason: Shortness Of Breath Or Wheezing) RF: 0 polysaccharide iron complex [Poly-Iron] 150 mg iron capsule 150 mg PO BID RF: 0 budesonide 0.5 mg/2 mL suspension for nebulization 0.5 mg inhalation BID RF: 0 montelukast 10 mg Tablet 10 mg PO DAILY RF: 0 Rohit-24 400 mg capsule,extended release 24hr 400 mg PO DAILY RF: 0 Daliresp 500 mcg tablet 500 mcg PO DAILY RF: 0 Discontinued sucralfate 1 gram Tablet 1 g PO ACHS RF: 0 potassium chloride 20 mEq Tablet,Er Particles/Crystals 20 meq PO QAM RF: 0 furosemide 20 mg tablet 20 mg PO DAILY RF: 0 Discharge Orders: Discharge Order (Routine); Ordered 03/19/21 Ordered By: Taran Birmingham Admission Data Admit Date/Time: 02/28/21 01:09 Attending Provider: Taran Birmingham Admit Provider: Zackary Leos Primary Care Provider: Anil Rodriguez Other Providers: Dennis Duron ; Taran Birmingham ; Manuel Hammond Other Interventions: Discharge Summary Assessment (RN) Last Done: 03/19/21 12:33 Coding Level of Care Code D/C Day Management >30 mins Diagnoses COPD exacerbation J44.1 COVID-19 U07.1 Hyponatremia E87.1 Diabetes E11.9; Z79.4 Diabetes mellitus type: type 2 Diabetes mellitus detention insulin use: with terminal computer operator use Diabetes mellitus complication status: without complication Atrial fibrillation I48.91 Hypertension I10 Hypertension type: essential hypertension Abdominal pain R10.9 History of pulmonary embolism Z86.711 Hypothyroidism E03.9 DVT prophylaxis Z29.9
[2021-03-19] MEDS ORDERED: INSULIN GLARGINE SOLOSTAR 100 UNITS/ML 3 ML PEN SQ SCH (21:00)
== END 2021-03-19 16:15 | disposition home health service (06) | DRG 190 ==
LOC: ED 22:05 → SUATTDRO 02-28 01:09 → 3N 02-28 01:09 → 2S 03-02 11:43 → 2W 03-05 07:45

== ENCOUNTER 2021-03-27 21:43 | Observation (INO) ==
[2021-03-27] MEDS ORDERED: ALBUT/IPRATROP 3MG/0.5MG NEB 3 ML VIAL NEB ONE (22:00)
[2021-03-27] MEDS ORDERED: methylPREDNISolone 125 MG/2 ML VIAL IV STA (22:00)
--- NOTE | 2021-03-27 22:59 | XRay Report ---
SINGLE VIEW CHEST CLINICAL HISTORY: Atypical chest pain FINDINGS: An AP, portable, upright chest radiograph is compared to study dated 03/02/2021 and correlat ed with chest CT dated 03/08/2021. The heart is mildly enlarged noting atherosclerotic calcification o f the thoracic aorta. The pulmonary vasculature is noncongested. Advanced emphysema and chronic inter stitial thickening is similar to previous. Airspace opacities are again seen in the left midlung and at both lung bases. The have partially cleared as compared to previous. No large pleural effusion or pneumothorax is seen. The skeletal structures are osteopenic. The bony thorax is grossly intact. IMPRESSION: 1. Cardiomegaly and emphysema. 2. Airspace opacities are again seen in the left midlung and at both lung bases. These have partially cleared as compared to previous and suggest an infectious/inflammatory pneumonitis. Clinical correla tion will be required and continued follow-up to complete resolution is recommended ACT 112: Negative or not required by law. Electronically signed by: Tee Terry M.D. 03/27/2021 10:58 PM
[2021-03-27 23:18] LABS: Hematocrit (blood only) 28.3 % (37-47); Hemoglobin 8.6 g/dL (12.0-16.0); Mean Corpuscular Hemoglobin 23.1 pg (25-34); Mean Corpuscular Hgb Conc 30.4 g/dL (32-36); Mean Corpuscular Volume 75.9 fL (80-100); Mean Platelet Volume 8.6 fL (7.4-10.4); Platelet Count 261 K/uL (130-400); RDW Coefficient of Variation 17.2 % (11.5-14.5); RDW Standard Deviation 48.1 fL (36.4-46.3); Red Blood Count 3.73 M/uL (4.2-5.4); White Blood Count 8.46 K/uL (4.8-10.8)
[2021-03-27 23:25] LABS: D Dimer 300 ug/L FEU (0-500); Partial Thromboplastin Ratio 0.9; Partial Thromboplastin Time 23.6 Seconds (21.0-31.0)
[2021-03-27 23:41] LABS: Basophils # (auto) 0.02 K/uL (0-0.2); Basophils % (auto) 0.2 %; Eosinophils # (auto) 0.28 K/uL (0-0.5); Eosinophils % (auto) 3.3 %; Immature Granulocytes # (auto) 0.03 K/uL (0.00-0.02); Immature Granulocytes % (auto) 0.4 %; Lymphocytes % (auto) 20.1 %; Monocytes # (auto) 0.68 K/uL (0.11-0.59); Neutrophils # (auto) 5.75 K/uL (1.4-6.5)
[2021-03-27 23:46] LABS: Alanine Aminotransferase 20 U/L (12-78); Albumin Globulin Ratio 0.6 (0.9-2); Albumin Level 2.3 gm/dl (3.4-5.0); Alkaline Phosphatase 162 U/L (45-117); BUN Creatinine Ratio 15.8 (10-20); Bilirubin,Total 0.2 mg/dl (0.2-1); Blood Urea Nitrogen 22 mg/dl (7-18); Calcium 9.6 mg/dl (8.5-10.1); Carbon Dioxide 34 mmol/L (21-32); Chloride 97 mmol/L (98-107); Creatinine Clr Calc Pharmacy 37.4 ml/min; Est GFR (African American) 42.6 ml/min; Est GFR (Non-African American) 36.7 ml/min; Globulin 3.9 gm/dl (2.5-4.0); Glucose 95 mg/dl (70-99); Lipase 134 U/L (73-393); NT Pro B Type Natriuretic Pept 766 pg/ml (0-1800); Sodium 134 mmol/L (136-145); Total Protein 6.2 gm/dl (6.4-8.2); Troponin I < 0.015 ng/ml (0-0.045)
--- NOTE | 2021-03-28 00:18 | Emergency Department Note ---
History of Present Illness General Chief complaint: Shortness of Breath/Dyspnea Stated complaint: SOB Time Seen by Provider: 03/27/21 21:50 Source: patient, EMS (I talked to EMS prior to arrival and gave medical command), RN notes reviewed and old records reviewed Mode of arrival: EMS Limitations: no limitations History of Present Illness This patient is a 75-year-old female who has history of COPD and is oxygen dependent on 2L as well as a recent diagnosis with Covid, comes in after having shortness of breath. She was in the hospital and was discharged last week. She says since then her breathing has not been good but got worse tonight. She has had a dry cough. No chest pain she had some nausea no fever. She has had lower extremity edema which has gotten slightly worse. No fall or trauma no focal numbness or weakness. Initially she declined coming to the hospital but I did recommend she be seen. She did feel better after receiving a couple duo nebs on route as ALS medical command was given. Increased oxygen also helped her feel better as well. Home Medications Medication Instructions Recorded Confirmed Type escitalopram oxalate 10 mg tablet 15 mg PO QAM 02/10/19 02/27/21 History famotidine 20 mg tablet 20 mg PO QAM 02/10/19 02/27/21 History levothyroxine 25 mcg tablet 25 mcg PO QAM 02/10/19 02/27/21 History metformin 500 mg tablet,extended 500 mg PO BID 02/10/19 02/27/21 History release 24 hr metoprolol succinate 25 mg capsule 25 mg PO BID 02/10/19 02/27/21 History sprinkle, ext. release 24 hr mirtazapine 30 mg tablet 30 mg PO HS 02/10/19 02/27/21 History pantoprazole 40 mg tablet,delayed 40 mg PO BID 02/10/19 02/27/21 History release quetiapine 200 mg tablet 200 mg PO HS 02/10/19 02/27/21 History rivaroxaban 20 mg tablet (Xarelto) 20 mg PO QAM 02/10/19 02/27/21 History spironolactone 50 mg tablet 100 mg PO QAM 02/10/19 02/27/21 History magnesium oxide 400 mg PO BID 02/20/19 02/27/21 History insulin glargine 100 unit/mL (3 15 unit SUBCUT DAILY@2100 12/01/19 02/27/21 History mL) subcutaneous pen (Lantus Solostar U-100 Insulin) insulin lispro 100 unit/mL 12 unit SUBCUT TIDM 05/22/20 02/27/21 History subcutaneous pen (Humalog KwikPen (U-100) Insulin) albuterol sulfate 90 mcg/actuation 2 puff INHALATION Q6H PRN #18 g 06/05/20 02/27/21 Rx aerosol inhaler 21cen Vit-D Wardell 400iu Chew 1 tab PO DAILY 02/27/21 02/27/21 History albuterol sulfate 2.5 mg INHALATION Q4 PRN 02/27/21 02/27/21 History budesonide 0.5 mg/2 mL suspension 0.5 mg INHALATION BID 02/27/21 02/27/21 History for nebulization montelukast 10 mg tablet 10 mg PO DAILY 02/27/21 02/27/21 History polysaccharide iron complex 150 mg 150 mg PO BID 02/27/21 02/27/21 History iron capsule (Poly-Iron) roflumilast 500 mcg tablet 500 mcg PO DAILY 02/27/21 02/27/21 History (Daliresp) theophylline 400 mg 400 mg PO DAILY 02/27/21 02/27/21 History capsule,extended release 24 hr (Rohit-24) Allergies Allergy/AdvReac Type Severity Reaction Status Date / Time rabies vaccine, duck-embryo Allergy Severe HIVES Verified 02/27/21 23:12 ragweed pollen Allergy Unknown UNKNOWN Verified 02/27/21 23:12 tomato Allergy Unknown HIVES Verified 02/27/21 23:12 Past Med/Surg History Medical History Acute and chronic respiratory failure with hypoxia Acute on chronic combined systolic (congestive) and diastolic (congestive) heart failure Acute respiratory failure with hypoxia Atelectasis Breast cancer, right breast CHF (congestive heart failure) COPD (chronic obstructive pulmonary disease) COPD exacerbation Diabetes Elevated troponin Endocarditis KATHLEEN (generalized anxiety disorder) GERD (gastroesophageal reflux disease) GI bleed Hypoxia Major depression, recurrent, full remission MSSA (methicillin susceptible Staphylococcus aureus) septicemia Nausea & vomiting Obesity hypoventilation syndrome QT prolongation Septic thrombophlebitis Spinal abscess Syncope Vomiting and diarrhea Surgical History History of lumpectomy Family History Other Coronary heart disease Stroke Social History Smoking Status: Former smoker Second Hand Exposure: No; Hx Alcohol Use: No Hx Substance Use: No Preferred Language: Tuvaluan Communication Ability: Effective Traveling Representative Required: No Beliefs That Will Affect Care: None marital status: Single Current Living Situation: Alone Current Living Situation Comment: with caregiver current occupational status: retired How many Children do You have: 0 Feels Safe at Home: Yes Assistive Devices: Oxygen - Continuous and Walker Review of Systems A total of 10 systems reviewed and were otherwise negative Physical Exam Vital Signs Vital Signs - 24 hr 03/27/21 21:49 03/27/21 21:50 03/27/21 21:55 Temperature 37.2 C Temperature Source Oral Pulse Rate 72 102 H Pulse Rate [Finger] 77 Pulse Rate from SpO2 Sensor 58 L Respiratory Rate 19 22 18 Respiratory Effort / Characteristics Non-Labored Spontaneous Blood Pressure 141/53 H 141/53 H Blood Pressure [Left Arm] Blood Pressure Mean 82 82 Blood Pressure Mean [Left Arm] Pulse Oximetry 98 97 93 Oxygen Delivery Method Nebulizer Nasal Cannula Nasal Cannula Oxygen Flow Rate 2 3 Sepsis Recent Fever Within 48 Hours No Sepsis New/Unexplained Change in Mental Status No Sepsis Action Taken by Nursing Physician Notified 03/27/21 22:04 03/28/21 00:00 03/28/21 00:19 Temperature Temperature Source Pulse Rate 87 Pulse Rate [Finger] 88 Pulse Rate from SpO2 Sensor 89 Respiratory Rate 24 22 Respiratory Effort / Characteristics Blood Pressure 123/55 L Blood Pressure [Left Arm] 123/55 L Blood Pressure Mean 77 Blood Pressure Mean [Left Arm] 77 Pulse Oximetry 97 90 92 Oxygen Delivery Method Nasal Cannula Nasal Cannula Nasal Cannula Oxygen Flow Rate 2 4 4 Sepsis Recent Fever Within 48 Hours Sepsis New/Unexplained Change in Mental Status Sepsis Action Taken by Nursing 03/28/21 00:30 03/28/21 01:00 03/28/21 01:31 Temperature Temperature Source Pulse Rate 87 89 88 Pulse Rate [Finger] Pulse Rate from SpO2 Sensor 81 79 89 Respiratory Rate 30 H 22 22 Respiratory Effort / Characteristics Blood Pressure 134/62 149/60 H 111/52 L Blood Pressure [Left Arm] Blood Pressure Mean 86 89 71 Blood Pressure Mean [Left Arm] Pulse Oximetry 95 97 98 Oxygen Delivery Method Nasal Cannula Nasal Cannula Nasal Cannula Oxygen Flow Rate 4 4 4 Sepsis Recent Fever Within 48 Hours Sepsis New/Unexplained Change in Mental Status Sepsis Action Taken by Nursing General: Well developed well nourished older female who is wearing oxygen and is mildly tachypneic but otherwise appears in no acute distress, breathing comfortably on room air. Normal speech HEENT: Normal cephalic atraumatic. Pupils are equal round and reactive to light. Sclera anicteric. Extraocular movements are intact. Oropharynx is pink with moist mucous membranes. No swelling of the mouth lips or tongue. Neck: Supple with a midline trachea. No meningeal signs or stiffness, no JVD or bruits. No Stridor. Chest: Mild tachypnea and increased work of breathing she does have somewhat rhonchorous breath sounds bilaterally Heart: Regular rate and rhythm without murmurs or gallops. Abdomen: Soft nontender, nondistended without rebound guarding or rigidity. Extremities: No cyanosis clubbing or edema. No calf tenderness or assymetry Spine/Back. Non tender to palpation. No CVA tenderness Skin: Good turgor without rashes. Neurologic exam: Cranial nerves two through 12 are intact. Motor and sensation are intact and symmetrical throughout. Course Administered Medications Discontinued Medications Albuterol (Albut/Ipratrop 3mg/0.5mg Neb 3 Ml Vial) 12 ml NEB ONE ONE Stop: 03/27/21 22:01 Last Admin: 03/27/21 22:15 Dose: 12 ml Documented by: [id number] Methylprednisolone (Methylprednisolone 125 Mg/2 Ml Vial) 125 mg IV NOW STA Stop: 03/27/21 22:01 Last Admin: 03/27/21 23:06 Dose: 125 mg Documented by: [id number] Medical Decision Making Differential Diagnosis COPD exacerbation, PE, arrhythmia, pneumothorax, electrolyte or metabolic abnormality, Covid, acute coronary syndrome Medical Records Attestation: I reviewed the patient's medical records. Home Medications Current Medication List: was personally reviewed by me Laboratory Data Attestation: I reviewed the patient's lab results. Result diagrams: 03/27/21 22:59 03/27/21 22:59 Lab Results 07/14/21 07/14/21 07/14/21 Range/Units 22:59 22:59 22:59 WBC 8.46 (4.8-10.8) K/uL RBC 3.73 L (4.2-5.4) M/uL Hgb 8.6 L (12.0-16.0) g/dL Hct 28.3 L (37-47) % MCV 75.9 L (80-100) fL MCH 23.1 L (25-34) pg MCHC 30.4 L (32-36) g/dL RDW Std Deviation 48.1 H (36.4-46.3) fL RDW Coeff of Jame 17.2 H (11.5-14.5) % Plt Count 261 (130-400) K/uL MPV 8.6 (7.4-10.4) fL Immature Gran % (Auto) 0.4 % Neut % (Auto) 68.0 % Lymph % (Auto) 20.1 % [place] % (Auto) 8.0 % Eos % (Auto) 3.3 % Baso % (Auto) 0.2 % Neut # (Auto) 5.75 (1.4-6.5) K/uL Lymph # (Auto) 1.70 (1.2-3.4) K/uL [place] # (Auto) 0.68 H (0.11-0.59) K/uL Eos # (Auto) 0.28 (0-0.5) K/uL Baso # (Auto) 0.02 (0-0.2) K/uL Immature Gran # (Auto) 0.03 H (0.00-0.02) K/uL APTT 23.6 (21.0-31.0) Seconds PTT Ratio 0.9 D-Dimer 300 (0-500) ug/L FEU Sodium 134 L (136-145) mmol/L Potassium (3.5-5.1) mmol/L Chloride 97 L (98-107) mmol/L Carbon Dioxide 34 H (21-32) mmol/L Anion Gap 3.0 (3-11) BUN 22 H (7-18) mg/dl Creatinine 1.39 H (0.6-1.2) mg/dl Est Cr Clr Drug Dosing 37.4 ml/min Est GFR ( Amer) 42.6 ml/min Est GFR (Non-Af Amer) 36.7 ml/min BUN/Creatinine Ratio 15.8 (10-20) Glucose 95 (70-99) mg/dl Calcium 9.6 (8.5-10.1) mg/dl Total Bilirubin 0.2 (0.2-1) mg/dl AST (15-37) U/L ALT 20 (12-78) U/L Alkaline Phosphatase 162 H (45-117) U/L Troponin I < 0.015 (0-0.045) ng/ml NT-Pro-B Natriuret Pep 766 (0-1800) pg/ml Total Protein 6.2 L (6.4-8.2) gm/dl Albumin 2.3 L (3.4-5.0) gm/dl Globulin 3.9 (2.5-4.0) gm/dl Albumin/Globulin Ratio 0.6 L (0.9-2) Lipase 134 (73-393) U/L Imaging Data My Impression: Chest x-raysome opacities in the lung bases bilaterally. No pneumothorax. Radiologist's Impression: Chest X-Ray 03/27/21 21:59 SINGLE VIEW CHEST CLINICAL HISTORY: Atypical chest pain FINDINGS: An AP, portable, upright chest radiograph is compared to study dated 03/02/2021 and correlated with chest CT dated 03/08/2021. The heart is mildly enlarged noting atherosclerotic calcification of the thoracic aorta. The pulmonary vasculature is noncongested. Advanced emphysema and chronic inter stitial thickening is similar to previous. Airspace opacities are again seen in the left midlung and at both lung bases. The have partially cleared as compared to previous. No large pleural effusion or pneumothorax is seen. The skeletal structures are osteopenic. The bony thorax is grossly intact. IMPRESSION: 1. Cardiomegaly and emphysema. 2. Airspace opacities are again seen in the left midlung and at both lung bases. These have partially cleared as compared to previous and suggest an infectious/inflammatory pneumonitis. Clinical correlation will be required and continued follow-up to complete resolution is recommended ACT 112: Negative or not required by law. Electronically signed by: Tee Terry M.D. 03/27/2021 10:58 PM ECG Data Attestation: I personally reviewed and interpreted this ECG as follows: Indication: + chest pain Rate (beats per minute): 72 Rhythm: + normal sinus ECG Intervals/blocks: + Normal QRS, + Normal QT and + Normal ID ECG [place]: + Left axis deviation (Lead I and aVL are deviated and suspect lead reversal) ECG ST segments: + Normal ST segments ECG Findings: no PACs or no PVCs Comparison ECG Date: from (03/02/21) Change: the following changes noted (There is axis change suspect lead reversal. Otherwise no acute change) MDM Narrative This patient comes in as described above. She is brought in after an shortness of breath. She has a history of COPD as well as a recent Covid infection. She was given duo nebs in route medical command was ordered. Upon arrival she is feeling better but still felt short of breath she was given hour-long DuoNeb as well as Solu-Medrol 125 mg IV. Chest x-ray was obtained and shows infiltrates that appear to be resolving compared to last likely consistent with her Covid infection. Her D-dimer is negative and therefore she unlikely has a PE. There is no pneumothorax. EKG does not suggest acute ischemic changes or significant arrhythmia. She has no significant electrolyte or metabolic abnormalities. She still feels short of breath after receiving the nebs and her oxygen does drop into the 80s and I do think will need to be admitted/observed. I have consulted Dr. Smith for these measures. Continuous cardiac monitoring: Orders placed in EMR for continuous cardiac monitoring. Upon my interpretation the patient was noted to be in normal sinus rhythm with a rate of 75 Impression & Plan SOB (shortness of breath), COPD (chronic obstructive pulmonary disease), Hypoxemia, COVID-19 Discharge Plan Visit Data Chief Complaint: Shortness of Breath/Dyspnea Stated Complaint: SOB ED Provider: Kojo Paris Discharge Problem: SOB (shortness of breath), COPD (chronic obstructive pulmonary disease), Hypoxemia, COVID-19 Patient Disposition: Admitted As Inpatient Discharge Instructions Interventions: ED Discharge Assessment Last Done: 03/28/21 01:58 Forms Stand Alone Forms: My [employer] Prescriptions Prescriptions: No Action Trelegy Ellipta 100-62.5-25 mcg blister with device 1 inh inhalation DAILY RF: 0 albuterol sulfate 90 mcg/actuation HFA aerosol inhaler 2 puff inhalation Q6H PRN (Reason: Shortness Of Breath Or Wheezing) Qty: 18 RF: 3 Lantus Solostar U-100 Insulin 100 unit/mL (3 mL) insulin pen 15 unit subcut DAILY@2100 RF: 0 insulin lispro [Humalog KwikPen Insulin] 100 unit/mL insulin pen 12 unit SUBCUT TIDM RF: 0 quetiapine 200 mg Tablet 200 mg PO HS RF: 0 levothyroxine 25 mcg Tablet 25 mcg PO QAM RF: 0 famotidine 20 mg Tablet 20 mg PO QAM RF: 0 pantoprazole 40 mg Tablet,Delayed Release (Dr/Ec) 40 mg PO BID RF: 0 mirtazapine 30 mg tablet 30 mg PO HS RF: 0 metformin 500 mg Tablet Extended Release 24 Hr 500 mg PO BID RF: 0 spironolactone 50 mg Tablet 100 mg PO QAM RF: 0 escitalopram oxalate 10 mg Tablet 15 mg PO QAM RF: 0 Xarelto 20 mg Tablet 20 mg PO QAM RF: 0 metoprolol succinate 25 mg Capsule,Sprinkle,Er 24hr 25 mg PO BID RF: 0 magnesium oxide 400 mg magnesium Tablet 400 mg PO BID RF: 0 21cen Vit-D Wardell 400iu Chew 1 tab PO DAILY RF: 0 albuterol sulfate 2.5 mg /3 mL (0.083 %) solution for nebulization 2.5 mg inhalation Q4 PRN (Reason: Shortness Of Breath Or Wheezing) RF: 0 polysaccharide iron complex [Poly-Iron] 150 mg iron capsule 150 mg PO BID RF: 0 budesonide 0.5 mg/2 mL suspension for nebulization 0.5 mg inhalation BID RF: 0 montelukast 10 mg Tablet 10 mg PO DAILY RF: 0 Rohit-24 400 mg capsule,extended release 24hr 400 mg PO DAILY RF: 0 Daliresp 500 mcg tablet 500 mcg PO DAILY RF: 0 Referrals Referrals: Anil Rodriguez [Primary Care Provider] - Discharge Problem: COPD (chronic obstructive pulmonary disease) Qualifiers: COPD type: unspecified COPD Qualified Code(s): J44.9 - Chronic obstructive pulmonary disease, unspecified
--- NOTE | 2021-03-28 01:38 | History & Physical Report ---
Date of Service March 28, 2021 Assessment & Plan (1) Acute and chronic respiratory failure with hypoxia: Plan: Acute and chronic respiratory failure with hypoxia/COPD exacerbation/admission for both and recent COVID-19 infection 02/28-03/18/2021/obesity hypoventilation sy ndrome- The patient will be admitted to telemetry for serial cardiac enzymes, serial EKG's, cardiac rhythm monitoring Patient symptoms were undoubtedly worsened after discharge due to extreme heat and humidity in her apartment at the [facility] in [place], with only the availability of fans to keep her cool. It would be difficult for her to return to that same living environment after this discharge Placed on methylprednisolone 60 mg IV every 6 hours Zosyn 4.5 g IV every 8 hours and azithromycin 500 mg IV daily, due to improvement but persistence of infiltrates on previous chest x-ray Guaifenesin extended release 600 mg p.o. twice daily Duonebs every 4 hours while awake and every 2 hours when necessary. Pulmicort Respules 0.5 mg inhaled twice daily Nasal cannula oxygen titrate to keep pulse ox 92 to 94%. Patient does chronically wear 2 L nasal cannula at home (2) COPD exacerbation: Plan: See above Continue Daliresp 500 mcg p.o. daily, montelukast 10 mg p.o. daily and theophylline-24 400 mg daily. Check a theophylline level (3) Hypothyroidism: Plan: Continue levothyroxine 25 mcg daily (4) History of pulmonary embolism: Plan: Continue Xarelto 20 mg daily (5) Atrial fibrillation: Plan: Atrial fibrillation/hypertension- Continue Xarelto 20 mg daily, metoprolol succinate 25 mg p.o. twice daily and spironolactone 100 mg every morning (6) Obesity hypoventilation syndrome: Plan: See above (7) Hypertension: Plan: See above (8) Anemia: (9) GERD (gastroesophageal reflux disease): Plan: Continue famotidine and pantoprazole (10) KATHLEEN (generalized anxiety disorder): Plan: Continue Escitalopram, mirtazapine, and quetiapine (11) Diabetes: Plan: Reduce insulin glargine from 15 to 6 units subcu daily. Hold standing order for insulin lispro 12 units subcu 3 times daily with meals Placed on Accu-Cheks before meals and at bedtime with NovoLog coverage per scale Check hemoglobin A1c History of Present Illness Chief Complaint: The patient presents to the emergency department with complaint of worsening shortness of breath and dyspnea on exertion since she was discharged from the hospital on 03/18/2021 Primary Care Provider: Anil Rodriguez The patient is a 75-year-old female with a past medical history including COPD, COVID-19 infection, hyponatremia, acute and chronic respiratory failure with hypoxia, hypothyroidism, history of PE, atrial fibrillation, morbid obesity, obesity hypoventilation syndrome, right-sided breast cancer, influenza A, shingles, CHF, GERD, diabetes mellitus, KATHLEEN, endocarditis, MSSA septicemia, septic thrombophlebitis, spinal abscess and syncope. Patient was most recently admitted to [facility] from 02/28-03/18/2021 due to exacerbation of her severe 2 L oxygen dependent COPD and COVID-19 infection. She was out of the window for aggressive treatment for COVID-19, but did receive steroids antibiotics for COPD, and was seen by her vascular specialists Dr. Armendariz during that visit. She lives in the [facility] in [place], where she is only allowed to use fans for cooling, and the temperatures have been in the 90s and been the high humidity since her discharge, which ass definitely affected her ability to breathe. Allergies Allergy/AdvReac Type Severity Reaction Status Date / Time rabies vaccine, duck-embryo Allergy Severe HIVES Verified 02/27/21 23:12 ragweed pollen Allergy Unknown UNKNOWN Verified 02/27/21 23:12 tomato Allergy Unknown HIVES Verified 02/27/21 23:12 Home Medications Medication Instructions Recorded Confirmed Type escitalopram oxalate 10 mg tablet 15 mg PO QAM 02/10/19 02/27/21 History famotidine 20 mg tablet 20 mg PO QAM 02/10/19 02/27/21 History levothyroxine 25 mcg tablet 25 mcg PO QAM 02/10/19 02/27/21 History metformin 500 mg tablet,extended 500 mg PO BID 02/10/19 02/27/21 History release 24 hr metoprolol succinate 25 mg capsule 25 mg PO BID 02/10/19 02/27/21 History sprinkle, ext. release 24 hr mirtazapine 30 mg tablet 30 mg PO HS 02/10/19 02/27/21 History pantoprazole 40 mg tablet,delayed 40 mg PO BID 02/10/19 02/27/21 History release quetiapine 200 mg tablet 200 mg PO HS 02/10/19 02/27/21 History rivaroxaban 20 mg tablet (Xarelto) 20 mg PO QAM 02/10/19 02/27/21 History spironolactone 50 mg tablet 100 mg PO QAM 02/10/19 02/27/21 History magnesium oxide 400 mg PO BID 02/20/19 02/27/21 History insulin glargine 100 unit/mL (3 15 unit SUBCUT DAILY@2100 12/01/19 02/27/21 History mL) subcutaneous pen (Lantus Solostar U-100 Insulin) insulin lispro 100 unit/mL 12 unit SUBCUT TIDM 05/22/20 02/27/21 History subcutaneous pen (Humalog KwikPen (U-100) Insulin) albuterol sulfate 90 mcg/actuation 2 puff INHALATION Q6H PRN #18 g 06/05/20 02/27/21 Rx aerosol inhaler 21cen Vit-D [place] 400iu Chew 1 tab PO DAILY 02/27/21 02/27/21 History albuterol sulfate 2.5 mg INHALATION Q4 PRN 02/27/21 02/27/21 History budesonide 0.5 mg/2 mL suspension 0.5 mg INHALATION BID 02/27/21 02/27/21 History for nebulization montelukast 10 mg tablet 10 mg PO DAILY 02/27/21 02/27/21 History polysaccharide iron complex 150 mg 150 mg PO BID 02/27/21 02/27/21 History iron capsule (Poly-Iron) roflumilast 500 mcg tablet 500 mcg PO DAILY 02/27/21 02/27/21 History (Daliresp) theophylline 400 mg 400 mg PO DAILY 02/27/21 02/27/21 History capsule,extended release 24 hr (Rohit-24) Past Med/Surg History Medical History (Updated 03/28/21 @ 05:10 by David Norris MD) Acute and chronic respiratory failure with hypoxia Acute on chronic combined systolic (congestive) and diastolic (congestive) heart failure Acute respiratory failure with hypoxia Atelectasis Breast cancer, right breast CHF (congestive heart failure) COPD (chronic obstructive pulmonary disease) COPD exacerbation Diabetes Elevated troponin Endocarditis KATHLEEN (generalized anxiety disorder) GERD (gastroesophageal reflux disease) GI bleed Hypoxia Major depression, recurrent, full remission MSSA (methicillin susceptible Staphylococcus aureus) septicemia Nausea & vomiting Obesity hypoventilation syndrome QT prolongation Septic thrombophlebitis Spinal abscess Syncope Vomiting and diarrhea Surgical History History of lumpectomy Family History Other Coronary heart disease Stroke Social History Smoking Status: Former smoker Second Hand Exposure: No; Do You Dip or Chew Tobacco: No; Hx Alcohol Use: No Hx Substance Use: No Preferred Language: Salvadorean Communication Ability: Effective Living Skills Advisor Required: No Beliefs That Will Affect Care: None marital status: Single Current Living Situation: Alone and Other Current Living Situation Comment: Alone with caregivers current occupational status: retired How many Children do You have: 0 Other Information That Helps Us Care for You: No Feels Safe at Home: Yes Safety Concerns: Feels Safe At This Time Assistive Devices: Denture - Upper and Oxygen - Continuous Review of Systems Review of Systems: The patient denies chest pain, palpitations, lower extremity swelling, sore throat, fevers, chills, sweats, nausea, vomiting, diarrhea , constipation, abdominal pain, pelvic pain, blood in urine or stool, dysuria, urinary frequency or urgency, lightheadedness, dizziness, headache, memory loss, loss of consciousness, rash, abnormal bruising or bleeding, imbalance, focal weakness, numbness or tingling in arms or legs, generalized arthralgias or myalgias, back or neck pain, or night sweats. The review of systems is otherwise negative other than for that already noted above, and at least 10 systems have been reviewed. Physical Exam Physical Exam: The patient is awake, alert and oriented 3, well developed and well nourished, normocephalic and atraumatic, lying in bed and in mild respiratory distress. HEENT--PERRL, EOMI, mucous membranes and oropharynx dry. Neck--supple. No JVD. No bruits. Thyroid normal, trachea midline, no adenopathy. Heart--normal S1 and S2. No murmurs, rubs or gallops. Lungs--decreased breath sounds throughout, with wheezes. Mild respiratory distress, no accessory muscle use. Abdomen--normal bowel sounds and soft. Nontender. Nondistended. Morbidly obese Extremities--no cyanosis or clubbing. No edema. Dermatologic--normal skin turgor, normal color, no abnormal lymph nodes, no rash. Neurologic--cranial nerves II through XII grossly intact. Rheumatologic--range of motion limited by body habitus Psychiatric--normal affect. Results & Data Results & Data ([facility]) Vital Signs (Past 12 Hours) Vital Signs Temp Pulse Pulse Resp BP BP Pulse Ox 03/28/21 01:00 35.4 F L 89 22 149/60 H 97 03/28/21 00:30 35.2 F L 87 30 H 134/62 95 03/28/21 00:19 88 22 123/55 L 92 03/28/21 00:00 87 24 123/55 L 90 03/27/21 22:04 97 03/27/21 21:55 77 18 93 03/27/21 21:50 99.0 F 102 H 22 141/53 H 97 03/27/21 21:49 72 19 141/53 H 98 Laboratory Results Laboratory Results WBC 8.46 K/uL (4.8-10.8) 03/27/21 22:59 RBC 3.73 M/uL (4.2-5.4) L 03/27/21 22:59 Hgb 8.6 g/dL (12.0-16.0) L 03/27/21 22:59 Hct 28.3 % (37-47) L 03/27/21 22:59 MCV 75.9 fL (80-100) L 03/27/21 22:59 MCH 23.1 pg (25-34) L 03/27/21 22:59 MCHC 30.4 g/dL (32-36) L 03/27/21 22:59 RDW Std Deviation 48.1 fL (36.4-46.3) H 03/27/21 22:59 RDW Coeff of Jame 17.2 % (11.5-14.5) H 03/27/21 22:59 Plt Count 261 K/uL (130-400) 03/27/21 22:59 MPV 8.6 fL (7.4-10.4) 03/27/21 22:59 Immature Gran % (Auto) 0.4 % 03/27/21 22:59 Neut % (Auto) 68.0 % 03/27/21 22:59 Lymph % (Auto) 20.1 % 03/27/21 22:59 [place] % (Auto) 8.0 % 03/27/21 22:59 Eos % (Auto) 3.3 % 03/27/21 22:59 Baso % (Auto) 0.2 % 03/27/21 22:59 Neut # (Auto) 5.75 K/uL (1.4-6.5) 03/27/21 22:59 Lymph # (Auto) 1.70 K/uL (1.2-3.4) 03/27/21 22:59 [place] # (Auto) 0.68 K/uL (0.11-0.59) H 03/27/21 22:59 Eos # (Auto) 0.28 K/uL (0-0.5) 03/27/21 22:59 Baso # (Auto) 0.02 K/uL (0-0.2) 03/27/21 22:59 Immature Gran # (Auto) 0.03 K/uL (0.00-0.02) H 03/27/21 22:59 APTT 23.6 Seconds (21.0-31.0) 03/27/21 22:59 PTT Ratio 0.9 03/27/21 22:59 D-Dimer 300 ug/L FEU (0-500) 03/27/21 22:59 Sodium 134 mmol/L (136-145) L 03/27/21 22:59 Potassium mmol/L (3.5-5.1) 03/27/21 22:59 Chloride 97 mmol/L (98-107) L 03/27/21 22:59 Carbon Dioxide 34 mmol/L (21-32) H 03/27/21 22:59 Anion Gap 3.0 (3-11) 03/27/21 22:59 BUN 22 mg/dl (7-18) H 03/27/21 22:59 Creatinine 1.39 mg/dl (0.6-1.2) H 03/27/21 22:59 Est Cr Clr Drug Dosing 37.4 ml/min 03/27/21 22:59 Est GFR ( Amer) 42.6 ml/min 03/27/21 22:59 Est GFR (Non-Af Amer) 36.7 ml/min 03/27/21 22:59 BUN/Creatinine Ratio 15.8 (10-20) 03/27/21 22:59 Glucose 95 mg/dl (70-99) 03/27/21 22:59 POC Glucose 241 mg/dl (70-99) H 03/28/21 02:24 Calcium 9.6 mg/dl (8.5-10.1) 03/27/21 22:59 Total Bilirubin 0.2 mg/dl (0.2-1) 03/27/21 22:59 AST U/L (15-37) 03/27/21 22:59 ALT 20 U/L (12-78) 03/27/21 22:59 Alkaline Phosphatase 162 U/L (45-117) H 03/27/21 22:59 Troponin I < 0.015 ng/ml (0-0.045) 03/27/21 22:59 NT-Pro-B Natriuret Pep 766 pg/ml (0-1800) 03/27/21 22:59 Total Protein 6.2 gm/dl (6.4-8.2) L 03/27/21 22:59 Albumin 2.3 gm/dl (3.4-5.0) L 03/27/21 22:59 Globulin 3.9 gm/dl (2.5-4.0) 03/27/21 22:59 Albumin/Globulin Ratio 0.6 (0.9-2) L 03/27/21 22:59 Lipase 134 U/L (73-393) 03/27/21 22:59 Impressions Chest X-Ray 03/27/21 21:59 SINGLE VIEW CHEST CLINICAL HISTORY: Atypical chest pain FINDINGS: An AP, portable, upright chest radiograph is compared to study dated 03/02/2021 and correlated with chest CT dated 03/08/2021. The heart is mildly enlarged noting atherosclerotic calcification of the thoracic aorta. The pulmonary vasculature is noncongested. Advanced emphysema and chronic interstitial thickening is similar to previous. Airspace opacities are again seen in the left midlung and at both lung bases. The have partially cleared as compared to previous. No large pleural effusion or pneumothorax is seen. The skeletal structures are osteopenic. The bony thorax is grossly intact. IMPRESSION: 1. Cardiomegaly and emphysema. 2. Airspace opacities are again seen in the left midlung and at both lung bases. These have partially cleared as compared to previous and suggest an infectious/inflammatory pneumonitis. Clinical correlation will be required and continued follow-up to complete resolution is recommended ACT 112: Negative or not required by law. Electronically signed by: Tee Terry M.D. 03/27/2021 10:58 PM Code Status & VTE Plan Code Status Full code VTE Prophylaxis Plan VTE Prophylaxis will be ordered: Yes PG Care Time/CCT Total # of Minutes Spent Total Time Spent with Patient: Total time spent is greater than 50% in coordination of care (as documented) at patient's floor/unit and/or counseling patient: Coding Level of Care Code 80823 Initial Inpt Care Lvl 3 Diagnoses Acute and chronic respiratory failure with hypoxia J96.21 COPD exacerbation J44.1 Hypothyroidism E03.9 History of pulmonary embolism Z86.711 Atrial fibrillation I48.91 Obesity hypoventilation syndrome E66.2 Hypertension I10 Hypertension type: essential hypertension Anemia D64.9 Anemia type: unspecified type GERD (gastroesophageal reflux disease) K21.9 Esophagitis presence: esophagitis presence not specified KATHLEEN (generalized anxiety disorder) F41.1 Diabetes E11.9; Z79.4 Diabetes mellitus type: type 2 Diabetes mellitus exterminator helper insulin use: with exterminator helper use Diabetes mellitus complication status: without complication (1) Hypertension Hypertension type: essential hypertension Qualified Code(s): I10 - Essential (primary) hypertension (2) Anemia Anemia type: unspecified type Qualified Code(s): D64.9 - Anemia, unspecified (3) GERD (gastroesophageal reflux disease) Esophagitis presence: esophagitis presence not specified Qualified Code(s): K21.9 - Gastro-esophageal reflux disease without esophagitis (4) Diabetes Diabetes mellitus type: type 2 Diabetes mellitus exterminator helper insulin use: with fci use Diabetes mellitus complication status: without complication Qualified Code(s): E11.9 - Type 2 diabetes mellitus without complications; Z79.4 - intermodal customer service (current) use of insulin
[2021-03-28] MEDS ORDERED: PIPERACILL/TAZOBAC CONSULT ACTIVE PRN (02:21)
[2021-03-28] MEDS ORDERED: DEXTROSE 50% 50 ML SYRINGE IV PRN (02:21)
[2021-03-28] MEDS ORDERED: GLUCAGON FOR INJ 1 MG VIAL SQ PRN (02:21)
[2021-03-28] MEDS ORDERED: GLUCOSE 40% GEL 15 GM TUBE PO PRN (02:21)
[2021-03-28] MEDS ORDERED: GLUCOSE 10 TABS/TUBE PO PRN (02:21)
[2021-03-28] MEDS ORDERED: ACETAMINOPHEN 325 MG TAB PO PRN (02:21)
[2021-03-28] MEDS ORDERED: ONDANSETRON INJ 2 MG/ML 2 ML VIAL IV PRN (02:21)
[2021-03-28] MEDS ORDERED: CARBOHYDRATES FOR HYPOGLYCEMIA PO PRN (02:21)
[2021-03-28] MEDS ORDERED: PIPERACILLIN/TAZOBACTAM 4.5 GM in DEXTROSE 5% 100 ML IV ONE (03:00)
[2021-03-28] MEDS: INSULIN ASPART 100 UNITS/ML 3 ML PEN SC SCH ×5 (03:05→21:22)
[2021-03-28] MEDS ORDERED: QUEtiapine FUMARATE 200 MG TAB PO STA (03:47)
[2021-03-28] MEDS: LEVOTHYROXINE SODIUM 25 MCG TABLET PO SCH (06:05)
[2021-03-28] MEDS: methylPREDNISolone 60 MG in SYRINGE 0 ML IV SCH ×2 (06:05→12:47)
[2021-03-28] MEDS: AZITHROMYCIN 500 MG in DEXTROSE 5% 250 ML IV SCH (06:06)
[2021-03-28 07:09] LABS: Creatinine Clr Calc Pharmacy 47.2 ml/min; Est GFR (African American) 57.7 ml/min; Est GFR (Non-African American) 49.8 ml/min
[2021-03-28 07:36] LABS: Estimated Average Glucose 183 mg/dl
[2021-03-28] MEDS: BUDESONIDE 0.5 MG/2 ML VIAL (PULMICORT) INH SCH ×2 (07:36→19:45)
[2021-03-28] MEDS: ESCITALOPRAM OXALATE 10 MG TAB PO SCH (08:42)
[2021-03-28] MEDS: MONTELUKAST SODIUM 10 MG TABLET PO SCH (08:44)
[2021-03-28] MEDS: PANTOprazole 40 MG TAB PO SCH ×2 (08:44→21:24)
[2021-03-28] MEDS: SPIRONOLACTONE 100 MG TAB PO SCH (08:44)
[2021-03-28] MEDS: THEOPHYLLINE 400 MG EXTENDED REL TAB PO SCH (08:44)
[2021-03-28] MEDS: MAGNESIUM OXIDE 400 MG TAB PO SCH ×2 (08:45→21:25)
[2021-03-28] MEDS: guaiFENesin 600 MG TABCR PO SCH ×2 (08:45→21:24)
[2021-03-28] MEDS: IRON POLYSACCHARIDE COMPLEX 150 MG CAPSULE PO SCH ×2 (08:45→21:23)
[2021-03-28] MEDS: METOPROLOL SUCC 25MG EXT REL TAB PO SCH ×2 (08:45→21:25)
[2021-03-28] MEDS: FAMOTIDINE 20 MG TAB PO SCH (08:46)
[2021-03-28] MEDS: ROFLUMILAST 500 MCG TAB PO SCH (08:47)
[2021-03-28] MEDS: PIPERACILLIN/TAZOBACTAM 4.5 GM in DEXTROSE 5% 100 ML IV SCH ×2 (11:41→18:20)
[2021-03-28 12:04] LABS: Basophilic Stippling 1+; Polychromasia 1+
[2021-03-28] MEDS: LEVALBUTEROL HCL 1.25 MG/3 ML NEB NEB SCH ×2 (12:53→19:45)
--- NOTE | 2021-03-28 13:54 | Electrocardiogram Report ---
Test Reason : Blood Pressure : / mmHG Vent. Rate : 072 BPM Atrial Rate : 072 BPM P-R Int : 176 ms QRS Dur : 066 ms QT Int : 360 ms P-R-T Axes : 101 188 121 degrees QTc Int : 394 ms Poor data quality, interpretation may be adversely affected Suspect arm lead reversal, interpretation assumes no reversal Normal sinus rhythm with sinus arrhythmia Lateral infarct , age undetermined Abnormal ECG When compared with ECG of 02-MAR-2021 14:10, Sinus rhythm has replaced Atrial fibrillation QRS axis Shifted left Lateral infarct is now Present T wave inversion no longer evident in Anterior leads Confirmed by Loyd Lawton ([id number]) on 03/28/2021 1:54:34 PM Referred By: REFERRED SELF Confirmed By:Roel Lawton
[2021-03-28] MEDS ORDERED: INSULIN GLARGINE SOLOSTAR 100 UNITS/ML 3 ML PEN SQ STA (14:29)
[2021-03-28] MEDS: RIVAROXABAN 15 MG TAB PO SCH (17:41)
[2021-03-28] MEDS ORDERED: MIRTAZAPINE TAB 15 MG TAB PO SCH (21:00)
[2021-03-28] MEDS ORDERED: QUEtiapine FUMARATE 200 MG TAB PO SCH (21:00)
[2021-03-28] MEDS ORDERED: INSULIN GLARGINE SOLOSTAR 100 UNITS/ML 3 ML PEN SQ SCH ×2 (21:00)
[2021-03-28] MEDS ORDERED: COUGH DROP (SUGAR FREE) LOZ 24 LOZ/1 BOX BUCCAL PRN (21:59)
[2021-03-29] MEDS: LEVALBUTEROL HCL 1.25 MG/3 ML NEB NEB SCH ×4 (01:04→18:08)
[2021-03-29] MEDS: PIPERACILLIN/TAZOBACTAM 4.5 GM in DEXTROSE 5% 100 ML IV SCH ×2 (01:49→10:53)
[2021-03-29] MEDS: LEVOTHYROXINE SODIUM 25 MCG TABLET PO SCH (05:53)
[2021-03-29] MEDS: AZITHROMYCIN 500 MG in DEXTROSE 5% 250 ML IV SCH (05:53)
[2021-03-29] MEDS: BUDESONIDE 0.5 MG/2 ML VIAL (PULMICORT) INH SCH ×2 (07:08→18:08)
[2021-03-29] MEDS ORDERED: methylPREDNISolone 60 MG in SYRINGE 0 ML IV SCH (09:00)
[2021-03-29] MEDS ORDERED: PHARMACY GLYCEMIC MGMT CONSULT SCH (09:47)
[2021-03-29] MEDS ORDERED: INSULIN HUMAN NPH SC SCH (10:00)
[2021-03-29] MEDS: INSULIN ASPART 100 UNITS/ML 3 ML PEN SC SCH ×3 (10:48→17:57)
[2021-03-29] MEDS: ESCITALOPRAM OXALATE 10 MG TAB PO SCH (11:01)
[2021-03-29] MEDS: FAMOTIDINE 20 MG TAB PO SCH (11:03)
[2021-03-29] MEDS: METOPROLOL SUCC 25MG EXT REL TAB PO SCH ×2 (11:04→15:23)
[2021-03-29] MEDS: MAGNESIUM OXIDE 400 MG TAB PO SCH (11:04)
[2021-03-29] MEDS: ROFLUMILAST 500 MCG TAB PO SCH (11:04)
[2021-03-29] MEDS: PANTOprazole 40 MG TAB PO SCH (11:04)
[2021-03-29] MEDS: guaiFENesin 600 MG TABCR PO SCH (11:04)
[2021-03-29] MEDS: MONTELUKAST SODIUM 10 MG TABLET PO SCH (11:04)
[2021-03-29] MEDS: IRON POLYSACCHARIDE COMPLEX 150 MG CAPSULE PO SCH (11:04)
[2021-03-29] MEDS: SPIRONOLACTONE 100 MG TAB PO SCH (11:04)
[2021-03-29] MEDS: THEOPHYLLINE 400 MG EXTENDED REL TAB PO SCH (11:04)
--- NOTE | 2021-03-29 13:19 | Pharmacy Report ---
Pharmacy Glycemic Short Note 2 - Date of Service March 29, 2021 - Glycemic Short BSG Results (Last 24 hours): 03/28/21 03/28/21 03/29/21 16:36 20:22 08:57 POC Glucose 263 H 252 H 324 H* 03/29/21 11:50 POC Glucose 201 H OUTPATIENT ANTIDIABETIC REGIMEN: * Lantus 15 units SQ HS * Humalog 12 units TID with meals * Metformin 500mg PO BID ASSESSMENT: * 75 year old female admitted for acute and chronic respiratory failure with hypoxia/COPD exacerbation/admission for both and recent COVID-19 infection 02/28-03/18/2021/obesity hypoventilation syndrome, patient known to pharmacy glycemic service from past admission. * Steroid induced hyperglycemia, patient received 46 units over past 24 hours with blood sugars ranging 241-383mg/dl * Patient has not been on solu-medrol previous admissions, but has been on IV Dexamethasone, requiring > 100 units of insulin/day * Patient on IV Solu-medrol 60mg daily - will begin NPH to cover steroid effects on blood sugar * Continue home regimen of Lantus and tighter CF/CR for steroid use * ADA & AACE recommend a goal blood sugar range 140-180 mg/dl for the majority of critically ill & non-critically ill patients. However, more stringent targets may be selected in individual cases. Will utilize more stringent goal of 110-140mg/dl based on patient age & comorbidities. Additionally, tighter glycemic control is warranted to facilitate wound/infection healing. PLAN FOR INPATIENT GLYCEMIC CONTROL: * Hold outpatient oral diabetes medications * Basal insulin * NPH 36 units (0.4units/kg) SQ daily with IV Solu-medrol * Lantus 15 units SQ HS * Bolus insulin * NovoLog per scale ACHS or Q6hrs while NPO * Goal Range: Low 110 mg/dL - High 140 mg/dL * Correction Factor: 15 mg/dL/unit * Nutritional / Prandial insulin per carb ratio of 1 unit per 5 grams CHO consumed PLAN FOR DISCHARGE: * to be determined
[2021-03-29] MEDS: RIVAROXABAN 15 MG TAB PO SCH (17:55)
[2021-03-29] MEDS ORDERED: INSULIN GLARGINE SOLOSTAR 100 UNITS/ML 3 ML PEN SQ SCH (21:00)
--- NOTE | 2021-03-30 18:47 | Discharge Summary ---
Date of Service March 29, 2021 Admission HPI Per Admitting Provider The patient is a 75-year-old female with a past medical history including COPD, COVID-19 infection, hyponatremia, acute and chronic respiratory failure with hypoxia, hypothyroidism, history of PE, atrial fibrillation, morbid obesity, obesity hypoventilation syndrome, right-sided breast cancer, influenza A, shingles, CHF, GERD, diabetes mellitus, KATHLEEN, endocarditis, MSSA septicemia, septic thrombophlebitis, spinal abscess and syncope. Patient was most recently admitted to [facility] from 02/28-03/18/2021 due to exacerbation of her severe 2 L oxygen dependent COPD and COVID-19 infection. 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 Armendariz during that visit. She lives in the [facility] in [place], where she is only allowed to use fans for cooling, and the temperatures have been in the 90s and been the high humidity since her discharge, which ass definitely affected her ability to breathe. Principal Diagnosis COPD exacerbation Discharge Exam The patient is awake, alert and oriented 3, well developed and well nourished, normocephalic and atraumatic, lying in bed and in mild respiratory distress. HEENT--PERRL, EOMI, mucous membranes and oropharynx dry. Neck--supple. No JVD. No bruits. Thyroid normal, trachea midline, no adenopathy. Heart--normal S1 and S2. No murmurs, rubs or gallops. Lungs--decreased breath sounds throughout, with wheezes. Mild respiratory distress, no accessory muscle use. Abdomen--normal bowel sounds and soft. Nontender. Nondistended. Morbidly obese Extremities--no cyanosis or clubbing. No edema. Dermatologic--normal skin turgor, normal color, no abnormal lymph nodes, no rash. Neurologic--cranial nerves II through XII grossly intact. Rheumatologic--range of motion limited by body habitus Psychiatric--normal affect. Discharge Data Allergies Allergy/AdvReac Type Severity Reaction Status Date / Time rabies vaccine, duck-embryo Allergy Severe HIVES Verified 02/27/21 23:12 ragweed pollen Allergy Unknown UNKNOWN Verified 02/27/21 23:12 tomato Allergy Unknown HIVES Verified 02/27/21 23:12 Consultations 03/28/21 00:09 ED Decision to Admit Stat Hospital Course (1) Acute and chronic respiratory failure with hypoxia: Acute and chronic respiratory failure with hypoxia/COPD exacerbation/admission for both and recent COVID-19 infection 02/28- 03/18/2021/obesity hypoventilation syndrome- The patient will be admitted to telemetry for serial cardiac enzymes, serial EKG's, cardiac rhythm monitoring Patient symptoms were undoubtedly worsened after discharge due to extreme heat and humidity in her apartment at the [facility] in [place], with only the susie ilability of fans to keep her cool. It would be difficult for her to return to that same living environment after this discharge Placed on methylprednisolone 60 mg IV every 6 hours Zosyn 4.5 g IV every 8 hours and azithromycin 500 mg IV daily, due to improvement but persistence of infiltrates on previous chest x-ray Guaifenesin extended release 600 mg p.o. twice daily Duonebs every 4 hours while awake and every 2 hours when necessary. Pulmicort Respules 0.5 mg inhaled twice daily Nasal cannula oxygen titrate to keep pulse ox 92 to 94%. Patient does chronically wear 2 L nasal cannula at home On daily of discharge: Patient felt better, she felt that she was back to her baseline. Patient asked if she could be discharged. Given the chronicity of her illness and fact that she feels back to her baseline, patient will be discharged. (2) COPD exacerbation: See above Continue Daliresp 500 mcg p.o. daily, montelukast 10 mg p.o. daily and theophylline-24 400 mg daily. Check a theophylline level (3) Hypothyroidism: Continue levothyroxine 25 mcg daily (4) History of pulmonary embolism: Continue Xarelto 20 mg daily (5) Atrial fibrillation: Atrial fibrillation/hypertension- Continue Xarelto 20 mg daily, metoprolol succinate 25 mg p.o. twice daily and spironolactone 100 mg every morning (6) Obesity hypoventilation syndrome: See above (7) Hypertension: See above (8) Anemia: (9) GERD (gastroesophageal reflux disease): Continue famotidine and pantoprazole (10) KATHLEEN (generalized anxiety disorder): Continue Escitalopram, mirtazapine, and quetiapine (11) Diabetes: Reduce insulin glargine from 15 to 6 units subcu daily. Hold standing order for insulin lispro 12 units subcu 3 times daily with meals Placed on Accu-Cheks before meals and at bedtime with NovoLog coverage per scale Check hemoglobin A1c Total Time Total Time Spent Total Time Spent (In Minutes): 32 Discharge Plan Discharge Items Patient Disposition: Home - Self-Care Reason For Visit: COPD EXACERBATION, PNEUMONIA Discharge Diagnosis: COPD exacerbation Activity: Resume your previous activity Non-emergency contact: Primary Care Provider Call non-emergency contact if: you have any medication questions Follow-up/Referrals: Anil Rodriguez [Primary Care Provider] - Diet: Carb Consistent or DM2 Addtl Attending Provider Instructions: You have been hospitalized for an acute medical problem. During your stay at [facility], we have made an effort to correct the problem that brought you to the hospital while keeping you as comfortable as possible. Medications were used to bring your condition under control and your discharge instructions will include directions for any medications you should take after leaving the hospital. Please make sure you see your Primary Care Provider as part of your follow up plan. Pending Studies at Discharge: No Stand-Alone Forms: My [facility], Smoking Cessation Medications and DC Order Prescriptions: New azithromycin 250 mg tablet 250 mg PO .mwf Qty: 15 RF: 0 prednisone 10 mg tablet 10 mg PO DAILY Qty: 20 RF: 0 Continued Trelegy Ellipta 100-62.5-25 mcg blister with device 1 inh inhalation DAILY RF: 0 albuterol sulfate 90 mcg/actuation HFA aerosol inhaler 2 puff inhalation Q6H PRN (Reason: Shortness Of Breath Or Wheezing) Qty: 18 RF: 3 Lantus Solostar U-100 Insulin 100 unit/mL (3 mL) insulin pen 15 unit subcut DAILY@2100 RF: 0 insulin lispro [Humalog KwikPen Insulin] 100 unit/mL insulin pen 12 unit SUBCUT TIDM RF: 0 quetiapine 200 mg Tablet 200 mg PO HS RF: 0 levothyroxine 25 mcg Tablet 25 mcg PO QAM RF: 0 famotidine 20 mg Tablet 20 mg PO QAM RF: 0 pantoprazole 40 mg Tablet,Delayed Release (Dr/Ec) 40 mg PO BID RF: 0 mirtazapine 30 mg tablet 30 mg PO HS RF: 0 metformin 500 mg Tablet Extended Release 24 Hr 500 mg PO BID RF: 0 spironolactone 50 mg Tablet 100 mg PO QAM RF: 0 escitalopram oxalate 10 mg Tablet 15 mg PO QAM RF: 0 Xarelto 20 mg Tablet 20 mg PO QAM RF: 0 metoprolol succinate 25 mg Capsule,Sprinkle,Er 24hr 25 mg PO BID RF: 0 magnesium oxide 400 mg magnesium Tablet 400 mg PO BID RF: 0 21cen Vit-D [place] 400iu Chew 1 tab PO DAILY RF: 0 albuterol sulfate 2.5 mg /3 mL (0.083 %) solution for nebulization 2.5 mg inhalation Q4 PRN (Reason: Shortness Of Breath Or Wheezing) RF: 0 polysaccharide iron complex [Poly-Iron] 150 mg iron capsule 150 mg PO BID RF: 0 budesonide 0.5 mg/2 mL suspension for nebulization 0.5 mg inhalation BID RF: 0 montelukast 10 mg Tablet 10 mg PO DAILY RF: 0 Rohit-24 400 mg capsule,extended release 24hr 400 mg PO DAILY RF: 0 Daliresp 500 mcg tablet 500 mcg PO DAILY RF: 0 Discharge Orders: Discharge Order (Routine); Ordered 03/29/21 Ordered By: William Medrano/Other Patient Handouts: A1C, Managing Type 2 Diabetes Admission Data Admit Date/Time: 03/28/21 01:37 Attending Provider: William Devries Admit Provider: David Norris Primary Care Provider: Anil Rodriguez Other Providers: David Norris Other Interventions: Discharge Summary Assessment (RN) Last Done: 03/29/21 18:26 Coding Level of Care Code 71479 OBS Care - Discharge Diagnoses Acute and chronic respiratory failure with hypoxia J96.21 COPD exacerbation J44.1 Hypothyroidism E03.9 History of pulmonary embolism Z86.711 Atrial fibrillation I48.91 Obesity hypoventilation syndrome E66.2 Hypertension I10 Hypertension type: essential hypertension Anemia D64.9 Anemia type: unspecified type GERD (gastroesophageal reflux disease) K21.9 Esophagitis presence: esophagitis presence not specified KATHLEEN (generalized anxiety disorder) F41.1 Diabetes E11.9; Z79.4 Diabetes mellitus complication status: without complication Diabetes mellitus skilled nursing insulin use: with skilled nursing use Diabetes mellitus type: type 2
== END 2021-03-29 18:46 | disposition home health service (06) | DRG 190 ==
LOC: ED 21:43 → OBSVTOIN 03-28 01:37 → INTOOBSV 03-28 01:37 → SUATTDRO 03-28 01:37 → 2N 03-28 01:37

== ENCOUNTER 2022-09-17 01:19 | Inpatient (IN) ==
[2022-09-17 02:02] LABS: Basophils # (auto) 0.06 K/uL (0-0.2); Basophils % (auto) 0.7 %; Eosinophils # (auto) 0.54 K/uL (0-0.50); Hematocrit (blood only) 28.8 % (34.1-44.9); Hemoglobin 8.5 g/dl (12.0-16.0); Immature Granulocytes # (auto) 0.04 K/uL (0.00-0.02); Immature Granulocytes % (auto) 0.4 %; Lymphocytes # (auto) 2.06 K/uL (1.2-3.4); Lymphocytes % (auto) 22.9 %; Mean Corpuscular Hemoglobin 23.5 pg (25.0-34.0); Mean Corpuscular Hgb Conc 29.5 g/dL (32.0-36.0); Mean Corpuscular Volume 79.8 fL (80.0-100.0); Mean Platelet Volume 9.5 fL (9.4-12.3); Monocytes # (auto) 0.92 K/uL (0.24-0.82); Monocytes % (auto) 10.2 %; Neutrophils # (auto) 5.38 K/uL (1.4-6.5); Neutrophils % (auto) 59.8 %; Platelet Count 353 K/uL (130-400); RDW Coefficient of Variation 15.2 % (11.5-14.5); RDW Standard Deviation 44.6 fL (36.4-46.3); Red Blood Count 3.61 M/uL (3.93-5.22)
[2022-09-17 02:19] LABS: Base Excess ABG 8.5 mEq/L (-9-1.8); HCO3 ABG 35 mmol/L (19-24); Oxygen Saturation ABG 98.5 % (90-95); PCO2 ABG 52 mmHg (35-46); PO2 ABG 87 mmHg (80-95); pH ABG 7.43 (7.35-7.45)
[2022-09-17 02:27] LABS: Albumin Globulin Ratio 1.4 (0.9-2); Albumin Level 3.8 gm/dl (3.4-5.0); Bilirubin,Total 0.2 mg/dl (0.2-1.0); Calcium 10.1 mg/dl (8.5-10.1); Creatinine Clr Calc Pharmacy 49.6 ml/min; Est GFR (African American) 58.2 ml/min; Est GFR (Non-African American) 50.3 ml/min; Globulin 2.8 gm/dl (2.5-4.0); Magnesium 1.9 mg/dl (1.7-2.4); Potassium 4.7 mmol/L (3.5-5.1); Total Protein 6.6 gm/dl (6.0-8.3)
--- NOTE | 2022-09-17 02:27 | Emergency Department Note ---
Impression & Plan Dyspnea, COPD (chronic obstructive pulmonary disease), Hypoxia, Hyperglycemia, Anemia ED Provider Note INFORMANT: Patient ED PROVIDER(S): Dr. Longoria CHIEF COMPLAINT: Increased shortness of breath PLAN: Disposition: Referral to hospitalist for inpatient treatment Condition: Fair Outpatient prescription management: none The [place] [facility]cription Drug Monitoring Program was reviewed regarding this patient. Referral: MEDICAL DECISION MAKING: This is a 77-year-old female presents emergency department via EMS due to concern for increased shortness of breath. Patient does have significant cardiac and pulmonary history. Patient does live alone however does have aides that come and help her intermittently. Patient felt symptoms are worsening despite use of home O2 and breathing treatments. Patient had not noticed any significant increase in lower extremity edema despite her history of CHF. Patient does have history of COPD but had not noticed any significant change in her sputum. Patient's oxygen had been titrated up to 4 L/min by EMS in order to maintain oxygen saturations in the low 90s where she felt comfortable. She was given a nebulizer treatment by EMS and an additional 1 on arrival here. Labs are drawn and sent, IV established, chest x-ray performed. EKG and chest x-ray interpreted by me. Patient likely with COPD exacerbation. Nasal swab sent to rule out other acute viral pathology. Patient started on IV steroids and covered with IV antibiotics as a precaution given significant comorbidities and advanced age. Hyperglycemia was noted, she was given subcutaneous insulin to treat this. No evidence of DKA. Patient also noted to have anemia, however on review of EMR this is stable compared to prior. Patient is anticoagulated due to history of atrial fibrillation. She states she has not missed any doses of her Xarelto, given this I do not highly suspect occult PE. After review of the information above and other included data, I feel the patient requires additional inpatient management and evaluation. Triage Nursing notes reviewed and agree them. Vital Signs: reviewed and remarkable for no significant abnormalities Prior /Outside records reviewed: none Differential diagnosis: Differential diagnoses includes but is not limited to pneumonia, bronchitis, COPD/Asthma exacerbation, pneumothorax, pulmonary embolism, congestive heart failure, acute coronary syndrome, noncompliance, malignancy, pleural effusion Diagnostics, as interpreted by me: ECG: Normal sinus rhythm at 67, normal QRS and QTc, normal axis, nonspecific ST/T wave changes Cardiac Monitoring: An order was placed for continuous cardiac monitoring. The monitor shows a rate of 78 with normal sinus rhythm. Medical decision rules: [none] Imaging studies: Chest: A single view study of the chest was reviewed and was negative for cardiomegaly, focal infiltrate, or wide mediastinum. Increased interstitial markings bilateral lower lobes with appearance of small pleural effusion on the left. HPI: This is a 77-year-old female who presents the emergency department due to concern for increased shortness of breath above her baseline. Patient states she chronically wears 2 L/min of oxygen via nasal cannula due to history of COPD. She states she does use MDI/nebulizer treatments at home. She states for the last week she has had increased cough, increased shortness of breath, and has turned up her oxygen at home. She does have caregivers who come help her. She states she is been using nebulizer treatments more frequently without any relief. She states she is unable to lay flat becomes severely dyspneic with exertion. Patient states she also has a history of congestive heart failure. She denies any known sick contacts. She states she has had subjective fevers and chills but has not taken her temperature. She states she has had mild nasal congestion. She states her cough is intermittently productive of a clear mucus. She has had intermittent central chest pressure additionally. She states she has not had a normal appetite but has not had any overt vomiting or diarrhea. She has not noticed any increased leg swelling. PAST MEDICAL HISTORY: See Below, COPD, chronic hypoxic respiratory failure on home oxygen PAST SURGICAL HISTORY: See Below, SOCIAL HISTORY: See Below, HOME MEDICATIONS: See Below ALLERGIES: See Below VITALS: See Below PHYSICAL EXAMINATION: GENERAL: alert, unwell appearing, well nourished, no distress, non-toxic, BMI>39 EYE EXAM: normal conjunctiva, PERRL and EOM's grossly intact OROPHARYNX: no exudate, no erythema, lips, buccal mucosa, and tongue normal and mucous membranes are moist NECK: supple, no nuchal rigidity, no adenopathy, non-tender LUNGS: Decreased bilaterally to auscultation. Normal chest wall mechanics, coarse cough noted during exam, bibasilar Rales, slight rhonchi noted at the left base, no wheezes HEART: no murmurs, S1 normal and S2 normal ABDOMEN: abdomen soft, non-tender, normo-active bowel sounds, no masses, no rebound or guarding. BACK: Back is symmetrical on inspection and there is no deformity, no midline tenderness, no CVA tenderness. SKIN: no rashes and no bruising UPPER EXTREMITIES: upper extremities are grossly normal. FROM, nml pulses b/l. LOWER EXTREMITIES: Trace bilateral pitting edema. FROM, nml pulses b/l. NEURO EXAM: Normal sensorium, cranial nerves II-XII grossly intact, normal speech, no gross weakness of arms, no gross weakness of legs. Gross sensation intact. Past Med/Surg History Medical History Acute and chronic respiratory failure with hypoxia Acute on chronic combined systolic (congestive) and diastolic (congestive) heart failure Acute respiratory failure with hypoxia Atelectasis Breast cancer, right breast CHF (congestive heart failure) COPD (chronic obstructive pulmonary disease) COPD exacerbation Diabetes Elevated troponin Endocarditis KATHLEEN (generalized anxiety disorder) GERD (gastroesophageal reflux disease) GI bleed Hypoxia Major depression, recurrent, full remission MSSA (methicillin susceptible Staphylococcus aureus) septicemia Nausea & vomiting Obesity hypoventilation syndrome QT prolongation Septic thrombophlebitis Spinal abscess Syncope Vomiting and diarrhea Surgical History History of lumpectomy Family History Other Coronary heart disease Stroke Social History Smoking Status: Former smoker Second Hand Exposure: No; Hx Alcohol Use: No Hx Substance Use: No Preferred Language: Ukrainian Communication Ability: Effective Information Security Systems Instructor Required: No Beliefs That Will Affect Care: None marital status: Single Current Living Situation: Alone Current Living Situation Comment: caregiver 5 nights a week, caregiver for 3hrs a day 3 days a week current occupational status: retired How many Children do You have: 0 Feels Safe at Home: Yes Assistive Devices: CPAP, Hospital Bed, Oxygen - Continuous, Scooter/Electric Scooter and Walker Allergies Allergies Allergy/AdvReac Type Severity Reaction Status Date / Time rabies vaccine, duck-embryo Allergy Severe HIVES Verified 06/09/22 12:02 ragweed pollen Allergy Unknown UNKNOWN Verified 06/09/22 12:02 tomato Allergy Unknown HIVES Verified 06/09/22 12:02 Home Meds Home Medications Medication Instructions Recorded Confirmed escitalopram oxalate 10 mg tablet 15 mg PO QAM 05/30/19 09/30/22 famotidine 20 mg tablet 20 mg PO QAM 02/10/19 06/13/22 levothyroxine 25 mcg tablet 25 mcg PO QAM 02/10/19 06/13/22 metformin 500 mg tablet,extended 500 mg PO BID 02/10/19 06/13/22 release 24 hr metoprolol succinate 25 mg capsule 25 mg PO BID 02/10/19 06/13/22 sprinkle, ext. release 24 hr mirtazapine 30 mg tablet 30 mg PO HS 02/10/19 06/13/22 pantoprazole 40 mg tablet,delayed 40 mg PO BID 02/10/19 06/13/22 release quetiapine 200 mg tablet 200 mg PO HS 02/10/19 06/13/22 rivaroxaban 20 mg tablet (Xarelto) 20 mg PO QAM 02/10/19 06/13/22 spironolactone 50 mg tablet 100 mg PO QAM 02/10/19 06/13/22 magnesium oxide 400 mg PO BID 02/20/19 06/13/22 insulin glargine 100 unit/mL (3 15 unit subcut DAILY@2100 12/01/19 06/13/22 mL) subcutaneous pen (Lantus Solostar U-100 Insulin) insulin lispro 100 unit/mL 12 unit subcut TIDM 05/22/20 06/13/22 subcutaneous pen (Humalog KwikPen (U-100) Insulin) 21cen Vit-D [place] 400iu Chew 1 tab PO DAILY 02/27/21 06/13/22 montelukast 10 mg tablet 10 mg PO DAILY 02/27/21 06/13/22 polysaccharide iron complex 150 mg 150 mg PO BID 02/27/21 06/13/22 iron capsule (Poly-Iron) Previous Rx's Medication Instructions Recorded albuterol sulfate 90 mcg/actuation 2 puff inhalation Q6H PRN 06/13/22 aerosol inhaler Shortness Of Breath Or Wheezing #18 grams arformoterol 15 mcg/2 mL solution 2 ml inhalation BID #120 mL 06/13/22 for nebulization (Brovana) azithromycin 250 mg tablet 250 mg PO .COMPLEX #36 tabs 06/13/22 budesonide 0.5 mg/2 mL suspension 0.5 mg (2 mL) inhalation BID #60 mL 06/13/22 for nebulization ipratropium 0.5 mg-albuterol 3 mg 3 ml inhalation Q8H PRN shortness 06/13/22 (2.5 mg base)/3 mL nebulization of breath or wheezing #180 mL soln roflumilast 500 mcg tablet 500 mcg PO DAILY #30 tabs 06/13/22 (Daliresp) sodium chloride 7 % for 1 inh inhalation BID #240 mL 06/13/22 nebulization revefenacin 175 mcg/3 mL solution 175 mcg (3 mL) inhalation DAILY 06/26/22 for nebulization #90 mL Results & Data (ED) Vital Signs Vital Signs - 24 hr 09/17/22 01:09 09/17/22 01:09 09/17/22 01:09 Respiratory Effort / Characteristics Non-Labored Spontaneous Respiratory Depth Normal Respiratory Pattern Regular Oxygen Delivery Method Nasal Cannula Nasal Cannula Nasal Cannula Oxygen Flow Rate 4 4 4 Sepsis Recent Fever Within 48 Hours No Sepsis New/Unexplained Change in Mental Status No Sepsis Action Taken by Nursing No Action Required Laboratory Data 09/17/22 01:39 09/17/22 01:39 Lab Results 09/17/22 09/17/22 09/17/22 Range/Units 01:39 01:39 01:39 WBC 9.00 (4.8-10.8) K/ul RBC 3.61 L (3.93-5.22) M/uL Hgb 8.5 L (12.0-16.0) g/dl Hct 28.8 L (34.1-44.9) % MCV 79.8 L (80.0-100.0) fL MCH 23.5 L (25.0-34.0) pg MCHC 29.5 L (32.0-36.0) g/dL RDW Std Deviation 44.6 (36.4-46.3) fL RDW Coeff of Jame 15.2 H (11.5-14.5) % Plt Count 353 (130-400) K/uL MPV 9.5 (9.4-12.3) fL Immature Gran % (Auto) 0.4 % Neut % (Auto) 59.8 % Lymph % (Auto) 22.9 % [place] % (Auto) 10.2 % Eos % (Auto) 6.0 % Baso % (Auto) 0.7 % Neut # (Auto) 5.38 (1.4-6.5) K/uL Lymph # (Auto) 2.06 (1.2-3.4) K/uL [place] # (Auto) 0.92 H (0.24-0.82) K/uL Eos # (Auto) 0.54 H (0-0.50) K/uL Baso # (Auto) 0.06 (0-0.2) K/uL Immature Gran # (Auto) 0.04 H (0.00-0.02) K/uL ABG pH (7.35-7.45) ABG pCO2 (35-46) mmHg ABG pO2 (80-95) mmHg ABG HCO3 (19-24) mmol/L ABG O2 Saturation (90-95) % ABG Base Excess (-9-1.8) mEq/L Rickie Test (Pos) Oxygen Given Sodium 138 (136-145) mmol/L Potassium 4.7 (3.5-5.1) mmol/L Chloride 99 (98-107) mmol/L Carbon Dioxide 33 H (21-32) mmol/L Anion Gap 6 (3-11) BUN 18 (6-23) mg/dl Creatinine 1.06 (0.6-1.2) mg/dl Est Cr Clr Drug Dosing 49.6 ml/min Est GFR ( Amer) 58.2 ml/min Est GFR (Non-Af Amer) 50.3 ml/min BUN/Creatinine Ratio 17.0 (10-20) Glucose 220 H (70-99(Fasting)) mg/dl POC Glucose (70-99) mg/dl Estimat Average Glucose mg/dl Hemoglobin A1c (4.5-5.6) % Calcium 10.1 (8.5-10.1) mg/dl Magnesium 1.9 (1.7-2.4) mg/dl Iron (35-150) mcg/dl Unsaturated IBC (155-355) mcg/dl Ferritin (8-388) ng/ml Total Bilirubin 0.2 (0.2-1.0) mg/dl AST 9 L (13-39) U/L ALT 9 (7-52) U/L Alkaline Phosphatase 98 (34-104) U/L Troponin I High Sens 7.1 (0-14) pg/ml B-Natriuretic Peptide 61 (0-100) pg/ml Total Protein 6.6 (6.0-8.3) gm/dl Albumin 3.8 (3.4-5.0) gm/dl Globulin 2.8 (2.5-4.0) gm/dl Albumin/Globulin Ratio 1.4 (0.9-2) SARS-CoV-2 (PCR) (Negative) Influenza Type A (PCR) (Neg) Influenza Type B (PCR) (Neg) RSV (RT-PCR) (Neg) 09/17/22 09/17/22 09/17/22 Range/Units 01:39 01:39 01:53 WBC (4.8-10.8) K/ul RBC (3.93-5.22) M/uL Hgb (12.0-16.0) g/dl Hct (34.1-44.9) % MCV (80.0-100.0) fL MCH (25.0-34.0) pg MCHC (32.0-36.0) g/dL RDW Std Deviation (36.4-46.3) fL RDW Coeff of Jame (11.5-14.5) % Plt Count (130-400) K/uL MPV (9.4-12.3) fL Immature Gran % (Auto) % Neut % (Auto) % Lymph % (Auto) % [place] % (Auto) % Eos % (Auto) % Baso % (Auto) % Neut # (Auto) (1.4-6.5) K/uL Lymph # (Auto) (1.2-3.4) K/uL [place] # (Auto) (0.24-0.82) K/uL Eos # (Auto) (0-0.50) K/uL Baso # (Auto) (0-0.2) K/uL Immature Gran # (Auto) (0.00-0.02) K/uL ABG pH (7.35-7.45) ABG pCO2 (35-46) mmHg ABG pO2 (80-95) mmHg ABG HCO3 (19-24) mmol/L ABG O2 Saturation (90-95) % ABG Base Excess (-9-1.8) mEq/L Rickie Test (Pos) Oxygen Given Sodium (136-145) mmol/L Potassium (3.5-5.1) mmol/L Chloride (98-107) mmol/L Carbon Dioxide (21-32) mmol/L Anion Gap (3-11) BUN (6-23) mg/dl Creatinine (0.6-1.2) mg/dl Est Cr Clr Drug Dosing ml/min Est GFR ( Amer) ml/min Est GFR (Non-Af Amer) ml/min BUN/Creatinine Ratio (10-20) Glucose (70-99(Fasting)) mg/dl POC Glucose (70-99) mg/dl Estimat Average Glucose 169 mg/dl Hemoglobin A1c 7.5 H (4.5-5.6) % Calcium (8.5-10.1) mg/dl Magnesium (1.7-2.4) mg/dl Iron 17 L (35-150) mcg/dl Unsaturated IBC 429 H (155-355) mcg/dl Ferritin 6.2 L (8-388) ng/ml Total Bilirubin (0.2-1.0) mg/dl AST (13-39) U/L ALT (7-52) U/L Alkaline Phosphatase (34-104) U/L Troponin I High Sens (0-14) pg/ml B-Natriuretic Peptide (0-100) pg/ml Total Protein (6.0-8.3) gm/dl Albumin (3.4-5.0) gm/dl Globulin (2.5-4.0) gm/dl Albumin/Globulin Ratio (0.9-2) SARS-CoV-2 (PCR) NEGATIVE (Negative) Influenza Type A (PCR) Negative (Neg) Influenza Type B (PCR) Negative (Neg) RSV (RT-PCR) Negative (Neg) 09/17/22 09/17/22 Range/Units 02:02 02:49 WBC (4.8-10.8) K/ul RBC (3.93-5.22) M/uL Hgb (12.0-16.0) g/dl Hct (34.1-44.9) % MCV (80.0-100.0) fL MCH (25.0-34.0) pg MCHC (32.0-36.0) g/dL RDW Std Deviation (36.4-46.3) fL RDW Coeff of Jame (11.5-14.5) % Plt Count (130-400) K/uL MPV (9.4-12.3) fL Immature Gran % (Auto) % Neut % (Auto) % Lymph % (Auto) % [place] % (Auto) % Eos % (Auto) % Baso % (Auto) % Neut # (Auto) (1.4-6.5) K/uL Lymph # (Auto) (1.2-3.4) K/uL [place] # (Auto) (0.24-0.82) K/uL Eos # (Auto) (0-0.50) K/uL Baso # (Auto) (0-0.2) K/uL Immature Gran # (Auto) (0.00-0.02) K/uL ABG pH 7.43 (7.35-7.45) ABG pCO2 52 H (35-46) mmHg ABG pO2 87 (80-95) mmHg ABG HCO3 35 H (19-24) mmol/L ABG O2 Saturation 98.5 H (90-95) % ABG Base Excess 8.5 H (-9-1.8) mEq/L Rickie Test Pos (Pos) Oxygen Given 4L Sodium (136-145) mmol/L Potassium (3.5-5.1) mmol/L Chloride (98-107) mmol/L Carbon Dioxide (21-32) mmol/L Anion Gap (3-11) BUN (6-23) mg/dl Creatinine (0.6-1.2) mg/dl Est Cr Clr Drug Dosing ml/min Est GFR ( Amer) ml/min Est GFR (Non-Af Amer) ml/min BUN/Creatinine Ratio (10-20) Glucose (70-99(Fasting)) mg/dl POC Glucose 211 H (70-99) mg/dl Estimat Average Glucose mg/dl Hemoglobin A1c (4.5-5.6) % Calcium (8.5-10.1) mg/dl Magnesium (1.7-2.4) mg/dl Iron (35-150) mcg/dl Unsaturated IBC (155-355) mcg/dl Ferritin (8-388) ng/ml Total Bilirubin (0.2-1.0) mg/dl AST (13-39) U/L ALT (7-52) U/L Alkaline Phosphatase (34-104) U/L Troponin I High Sens (0-14) pg/ml B-Natriuretic Peptide (0-100) pg/ml Total Protein (6.0-8.3) gm/dl Albumin (3.4-5.0) gm/dl Globulin (2.5-4.0) gm/dl Albumin/Globulin Ratio (0.9-2) SARS-CoV-2 (PCR) (Negative) Influenza Type A (PCR) (Neg) Influenza Type B (PCR) (Neg) RSV (RT-PCR) (Neg) Administered Medications Albuterol (Albut/Ipratrop 3mg/0.5mg Neb 3 Ml Vial) 3 ml NEB QIDR [facility]; Protocol Stop: 10/17/22 06:59 Last Admin: 09/18/22 07:33 Dose: Not Given Documented By: Admin: 09/18/22 03:03 Dose: 3 ml Documented By: Admin: 09/17/22 21:56 Dose: 3 ml Documented By: Admin: 09/17/22 17:54 Dose: Not Given Documented By: Admin: 09/17/22 14:33 Dose: 3 ml Documented By: Admin: 09/17/22 11:15 Dose: 3 ml Documented By: Admin: 09/17/22 09:25 Dose: 3 ml Documented By: Admin: 09/17/22 06:59 Dose: 3 ml Documented By: Admin: 09/17/22 04:49 Dose: 3 ml Documented By: AUTUMN Budesonide (Budesonide 0.5 Mg/2 Ml Vial (Pulmicort)) 0.5 mg INH BIDR [facility] Stop: 10/17/22 06:59 Last Admin: 09/18/22 07:33 Dose: 0.5 mg Documented By: Admin: 09/17/22 17:54 Dose: 0.5 mg Documented By: Admin: 09/17/22 06:59 Dose: 0.5 mg Documented By: WINTER Doxycycline Hyclate (Doxycycline Hyclate 100 Mg Cap) 100 mg PO BID [facility] Stop: 09/24/22 20:59 Last Admin: 09/17/22 20:59 Dose: 100 mg Documented By: CHARLOTTE Escitalopram Oxalate (Escitalopram Oxalate 10 Mg Tab) 15 mg PO QAM [facility] Stop: 10/17/22 08:59 Last Admin: 09/17/22 09:23 Dose: 15 mg Documented By: IAN Formoterol Fumarate (Formoterol 20 Mcg/2 Ml Vial) 20 mcg INH BIDR [facility] Stop: 10/17/22 06:59 Last Admin: 09/18/22 07:33 Dose: 20 mcg Documented By: Admin: 09/17/22 17:54 Dose: 20 mcg Documented By: Admin: 09/17/22 06:59 Dose: Not Given Documented By: WINTER Guaifenesin (Guaifenesin 600 Mg Tabcr) 1,200 mg PO Q12 [facility] Stop: 10/17/22 08:59 Last Admin: 09/17/22 20:59 Dose: 1,200 mg Documented By: Admin: 09/17/22 09:23 Dose: 1,200 mg Documented By: IAN Methylprednisolone 40 mg/ (Syringe) 0.64 mls @ 1.5 mls/min IV Q8H [facility] Stop: 10/17/22 11:59 Last Admin: 09/18/22 03:48 Dose: 1.5 mls/min Documented By: Admin: 09/17/22 19:52 Dose: 1.5 mls/min Documented By: Admin: 09/17/22 12:17 Dose: 1.5 mls/min Documented By: UMU Insulin Aspart (Insulin Aspart Per Unit) 0 units SC ACHS [facility] Stop: 10/17/22 07:29 Last Admin: 09/17/22 21:58 Dose: 7 units Documented By: CHARLOTTE Co-signed By: BRONWYN Admin: 09/17/22 18:54 Dose: 11 units Documented By: UMU Co-signed By: CHARLOTTE Admin: 09/17/22 13:43 Dose: 5 units Documented By: UMU Co-signed By: MADINA Admin: 09/17/22 09:20 Dose: 5 units Documented By: IAN Co-signed By: MADINA(2) Insulin Glargine (Lantus Per Unit Charge) 15 units SQ DAILY@2100 [facility] Stop: 10/17/22 20:59 Last Admin: 09/17/22 21:59 Dose: 15 units Documented By: CHARLOTTE Co-signed By: BRONWYN Levothyroxine Sodium (Levothyroxine Sodium 25 Mcg Tablet) 25 mcg PO DAILYBB [facility] Stop: 10/17/22 06:29 Last Admin: 09/18/22 05:30 Dose: 25 mcg Documented By: Admin: 09/17/22 06:26 Dose: 25 mcg Documented By: AUTUMN Magnesium Oxide (Magnesium Oxide 400 Mg Tab) 400 mg PO BID [facility] Stop: 10/17/22 08:59 Last Admin: 09/17/22 20:59 Dose: 400 mg Documented By: Admin: 09/17/22 09:23 Dose: 400 mg Documented By: IAN Metoprolol Succinate (Metoprolol Succ 25mg Ext Rel Tab) 25 mg PO BID [facility] Stop: 10/17/22 08:59 Last Admin: 09/17/22 21:00 Dose: 25 mg Documented By: Admin: 09/17/22 09:24 Dose: 25 mg Documented By: IAN Mirtazapine (Mirtazapine Tab 15 Mg Tab) 30 mg PO [facility] Stop: 10/17/22 20:59 Last Admin: 09/17/22 21:00 Dose: 30 mg Documented By: CHARLOTTE Miscellaneous (Revefenacin 175 Mcg/3 Ml Solution For Nebulization - Order Awaiting Action) 1 each N/A QS [facility] Stop: 10/17/22 07:59 Last Admin: 09/17/22 22:02 Dose: Not Given Documented By: Admin: 09/17/22 19:12 Dose: Not Given Documented By: Admin: 09/17/22 19:12 Dose: Not Given Documented By: CHARLOTTE Montelukast Sodium (Montelukast Sodium 10 Mg Tablet) 10 mg PO DAILY [facility] Stop: 10/17/22 08:59 Last Admin: 09/17/22 09:24 Dose: 10 mg Documented By: IAN Pantoprazole Sodium (Pantoprazole 40 Mg Tab) 40 mg PO BID [facility] Stop: 10/17/22 08:59 Last Admin: 09/17/22 21:00 Dose: 40 mg Documented By: Admin: 09/17/22 09:24 Dose: 40 mg Documented By: IAN Quetiapine Fumarate (Quetiapine Fumarate 200 Mg Tab) 200 mg PO [facility] Stop: 10/17/22 20:59 Last Admin: 09/17/22 20:59 Dose: 200 mg Documented By: CHARLOTTE Rivaroxaban (Rivaroxaban 20 Mg Tab) 20 mg PO QDD [facility] Stop: 10/17/22 16:29 Last Admin: 09/17/22 16:32 Dose: 20 mg Documented By: OAM Roflumilast (Roflumilast 500 Mcg Tab) 500 mcg PO DAILY [facility] Stop: 10/17/22 08:59 Last Admin: 09/17/22 09:24 Dose: 500 mcg Documented By: NH Spironolactone (Spironolactone 100 Mg Tab) 100 mg PO QAM [facility] Stop: 10/17/22 08:59 Last Admin: 09/17/22 09:24 Dose: 100 mg Documented By: NH Discontinued Medications Albuterol (Albut/Ipratrop 3mg/0.5mg Neb 3 Ml Vial) Confirm Administered Dose 3 ml .ROUTE .STK-MED ONE Stop: 09/17/22 04:48 Last Admin: 09/17/22 04:49 Dose: Not Given Documented By: AN Doxycycline Hyclate 100 mg/ (Dextrose) 110 mls @ 50 mls/hr IV NOW STA Stop: 09/17/22 05:00 Last Infusion: 09/17/22 06:32 Dose: 0 mls/hr Documented By: Admin: 09/17/22 04:09 Dose: 50 mls/hr Documented By: AN Iron Sucrose 300 mg/ Sodium (Chloride) 265 mls @ 176.667 mls/hr IV TODAY@1830 [facility] Stop: 09/17/22 19:59 Last Infusion: 09/17/22 21:36 Dose: 0 mls/hr Documented By: Admin: 09/17/22 19:52 Dose: 176.7 mls/hr Documented By: CHARLOTTE Insulin Human Regular (Novolin-R Insulin Per Unit Charge) 4 units SC NOW STA Stop: 09/17/22 02:29 Last Admin: 09/17/22 02:54 Dose: 4 units Documented By: AN Co-signed By: TSERING Methylprednisolone (Methylprednisolone 125 Mg/2 Ml Vial) 60 mg IV NOW STA Stop: 09/17/22 02:50 Last Admin: 09/17/22 04:09 Dose: 60 mg Documented By: AN Discharge Plan Visit Data Chief Complaint: Shortness of Breath/Dyspnea ED Provider: Audrey Longoria Discharge Problem: Dyspnea, COPD (chronic obstructive pulmonary disease), Hypoxia, Hyperglycemia, Anemia Patient Disposition: Admitted As Inpatient Discharge Instructions Interventions: ED Discharge Assessment Last Done: 09/17/22 04:16
[2022-09-17] MEDS ORDERED: NovoLIN-R INSULIN PER UNIT CHARGE SC STA (02:28)
[2022-09-17 02:31] LABS: Allen Test Pos (Pos)
[2022-09-17 02:31] LABS: Troponin I High Sensitivity 7.1 pg/ml (0-14)
[2022-09-17 02:38] LABS: Influenza A virus by PCR Negative (Neg); Influenza B virus by PCR Negative (Neg); RSV by PCR Negative (Neg); SARS CoV2 RNA(COVID-19) Ceph NEGATIVE (Negative)
[2022-09-17] MEDS ORDERED: methylPREDNISolone 125 MG/2 ML VIAL IV STA (02:49)
[2022-09-17] MEDS ORDERED: DOXYCYCLINE HYCLATE 100 MG in DEXTROSE 5% 100 ML IV STA (02:49)
--- NOTE | 2022-09-17 03:23 | History & Physical Report ---
Date of Service September 17, 2022 Assessment & Plan (1) Acute on chronic respiratory failure with hypoxia: (2) COPD exacerbation: (3) Hypothyroidism: (4) History of pulmonary embolism: (5) Atrial fibrillation: (6) Hypersomnolence disorder, persistent, mild: (7) Obesity hypoventilation syndrome: (8) Hypertension: (9) Diabetes: (10) KATHLEEN (generalized anxiety disorder): (11) Major depression, recurrent, full remission: Plan Acute on chronic respiratory failure with hypoxia/COPD exacerbation/early bibasilar pneumonia- In ED received the following: Solu-Medrol 60 mg IV, doxycycline 100 mg IV and regular insulin 4 units subcu Methylprednisolone 40 mg IV every 8 hours Doxycycline 100 mg p.o. twice daily Guaifenesin extended release 1200 mg p.o. every 12 hours Duonebs every 4 hours while awake and every 2 hours when necessary. Nasal cannula oxygen, titrate to keep pulse ox 92-94% Continue Singulair 10 mg daily, Daliresp 500 mg daily, Pulmicort Respules 0.5 mg inhaled twice daily, performist 20 mcg inhaled twice daily, revefenacin Major depression in remission/generalized anxiety disorder- Continue Lexapro 15 mg every morning, mirtazapine 30 mg at bedtime, Seroquel 200 mg at bedtime Diabetes mellitus- Continue insulin glargine 15 units subcu daily Placed on Accu-Cheks with SSI Hypertension- Continue metoprolol succinate 25 mg twice daily, spironolactone 100 mg every morning Pulmonary embolism history- Continue Xarelto Hypothyroidism- Continue levothyroxine 25 mcg daily GERD- Continue pantoprazole 40 mg p.o. twice daily History of Present Illness Chief Complaint: The patient presents to the emergency department with 1 week of worsening shortness of breath, dyspnea on exertion and intermittently productive cough Primary Care Provider: Dayna Bullard The patient is a 77-year-old female with a past medical history including COPD, chronic bronchitis, VIJAY, COPD exacerbation, COVID-19 infection, acute on chronic respiratory failure with hypoxia, PE, atrial fibrillation, hypersomnolence, obesity hypoventilation syndrome, pulmonary embolism, hypertension, hypothyroidism, CHF, GERD, major depression, generalized anxiety disorder, septic thrombophlebitis, spinal abscess and syncope. The patient presents to the emergency department with 1 week of progressively worsening shortness of breath and dyspnea on exertion. In the emergency department this evening, patient was COVID-19, influenza a and B and RSV negative Glucose was 211 Allergies Allergy/AdvReac Type Severity Reaction Status Date / Time rabies vaccine, duck-embryo Allergy Severe HIVES Verified 06/09/22 12:02 ragweed pollen Allergy Unknown UNKNOWN Verified 06/09/22 12:02 tomato Allergy Unknown HIVES Verified 06/09/22 12:02 Home Medications Medication Instructions Recorded Confirmed Type escitalopram oxalate 10 mg tablet 15 mg PO QAM 02/10/19 06/13/22 History famotidine 20 mg tablet 20 mg PO QAM 02/10/19 06/13/22 History levothyroxine 25 mcg tablet 25 mcg PO QAM 02/10/19 06/13/22 History metformin 500 mg tablet,extended 500 mg PO BID 02/10/19 06/13/22 History release 24 hr metoprolol succinate 25 mg capsule 25 mg PO BID 02/10/19 06/13/22 History sprinkle, ext. release 24 hr mirtazapine 30 mg tablet 30 mg PO HS 02/10/19 06/13/22 History pantoprazole 40 mg tablet,delayed 40 mg PO BID 02/10/19 06/13/22 History release quetiapine 200 mg tablet 200 mg PO HS 02/10/19 06/13/22 History rivaroxaban 20 mg tablet (Xarelto) 20 mg PO QAM 02/10/19 06/13/22 History spironolactone 50 mg tablet 100 mg PO QAM 02/10/19 06/13/22 History magnesium oxide 400 mg PO BID 02/20/19 06/13/22 History insulin glargine 100 unit/mL (3 15 unit subcut DAILY@2100 12/01/19 06/13/22 History mL) subcutaneous pen (Lantus Solostar U-100 Insulin) insulin lispro 100 unit/mL 12 unit subcut TIDM 05/22/20 06/13/22 History subcutaneous pen (Humalog KwikPen (U-100) Insulin) 21cen Vit-D Medora 400iu Chew 1 tab PO DAILY 02/27/21 06/13/22 History montelukast 10 mg tablet 10 mg PO DAILY 02/27/21 06/13/22 History polysaccharide iron complex 150 mg 150 mg PO BID 02/27/21 06/13/22 History iron capsule (Poly-Iron) albuterol sulfate 90 mcg/actuation 2 puff inhalation Q6H PRN 06/13/22 06/13/22 Rx aerosol inhaler Shortness Of Breath Or Wheezing #18 grams arformoterol 15 mcg/2 mL solution 2 ml inhalation BID #120 mL 06/13/22 06/13/22 Rx for nebulization (Brovana) azithromycin 250 mg tablet 250 mg PO .COMPLEX #36 tabs 06/13/22 06/13/22 Rx budesonide 0.5 mg/2 mL suspension 0.5 mg (2 mL) inhalation BID #60 mL 06/13/22 06/13/22 Rx for nebulization ipratropium 0.5 mg-albuterol 3 mg 3 ml inhalation Q8H PRN shortness 06/13/22 06/13/22 Rx (2.5 mg base)/3 mL nebulization of breath or wheezing #180 mL soln roflumilast 500 mcg tablet 500 mcg PO DAILY #30 tabs 06/13/22 06/13/22 Rx (Daliresp) sodium chloride 7 % for 1 inh inhalation BID #240 mL 06/13/22 06/13/22 Rx nebulization revefenacin 175 mcg/3 mL solution 175 mcg (3 mL) inhalation DAILY 06/26/22 Rx for nebulization #90 mL Past Med/Surg History Medical History Acute and chronic respiratory failure with hypoxia Acute on chronic combined systolic (congestive) and diastolic (congestive) heart failure Acute respiratory failure with hypoxia Atelectasis Breast cancer, right breast CHF (congestive heart failure) COPD (chronic obstructive pulmonary disease) COPD exacerbation Diabetes Elevated troponin Endocarditis KATHLEEN (generalized anxiety disorder) GERD (gastroesophageal reflux disease) GI bleed Hypoxia Major depression, recurrent, full remission MSSA (methicillin susceptible Staphylococcus aureus) septicemia Nausea & vomiting Obesity hypoventilation syndrome QT prolongation Septic thrombophlebitis Spinal abscess Syncope Vomiting and diarrhea Surgical History History of lumpectomy Family History Other Coronary heart disease Stroke Social History Smoking Status: Former smoker Second Hand Exposure: No; Hx Alcohol Use: No Hx Substance Use: No Preferred Language: Upper Sorbian Communication Ability: Effective Instrument Technician Helper Required: No Beliefs That Will Affect Care: None marital status: Single Current Living Situation: Alone and Other Current Living Situation Comment: Alone with caregivers current occupational status: retired How many Children do You have: 0 Feels Safe at Home: No Is there a partner from a previous relationship who is making you feel unsafe now?: No Assistive Devices: Oxygen - Continuous Review of Systems Review of Systems: The patient denies chest pain, palpitations, lower extremity swelling, nausea, vomiting, diarrhea , constipation, abdominal pain, pelvic pain, blood in urine or stool, dysuria, urinary frequency or urgency, lightheadedness, dizziness, headache, memory loss, loss of consciousness, rash, abnormal bruising or bleeding, imbalance, focal weakness, numbness or tingling in arms or legs, generalized arthralgias or myalgias, back or neck pain, or night sweats. The review of systems is otherwise negative other than for that already noted above, and at least 10 systems have been reviewed. Physical Exam Physical Exam: The patient is awake, alert and oriented 3, well developed and well nourished, normocephalic and atraumatic, lying in bed and in no acute distress. HEENT--PERRL, EOMI, mucous membranes and oropharynx normal. Neck--supple. No JVD. No bruits. Thyroid normal, trachea midline, no adenopathy. Heart--normal S1 and S2. No murmurs, rubs or gallops. Lungs--coarse breath sounds with wheezes bilaterally. no respiratory distress, no accessory muscle use. Abdomen--normal bowel sounds and soft. Nontender. Nondistended. Morbidly obese. Mildly tympanitic Extremities--no cyanosis or clubbing. No edema. Dermatologic--normal skin turgor, normal color, no abnormal lymph nodes, no rash. Neurologic--cranial nerves II through XII grossly intact. Rheumatologic--normal range of motion. Psychiatric--normal affect. Results & Data Results & Data ([facility]) Vital Signs (Past 12 Hours) Vital Signs Temp Pulse Resp BP Pulse Ox O2 Del Method O2 Flow Rate 09/17/22 03:02 66 18 140/63 98 Nasal Cannula 3 01/04/23 03:02 36.5 C 09/17/22 01:09 Nasal Cannula 4 09/17/22 01:09 Nasal Cannula 4 09/17/22 01:09 Nasal Cannula 4 Laboratory Results Laboratory Results WBC 9.00 K/ul (4.8-10.8) 09/17/22 01:39 RBC 3.61 M/uL (3.93-5.22) L 09/17/22 01:39 Hgb 8.5 g/dl (12.0-16.0) L 09/17/22 01:39 Hct 28.8 % (34.1-44.9) L 09/17/22 01:39 MCV 79.8 fL (80.0-100.0) L 09/17/22 01:39 MCH 23.5 pg (25.0-34.0) L 09/17/22 01:39 MCHC 29.5 g/dL (32.0-36.0) L 09/17/22 01:39 RDW Std Deviation 44.6 fL (36.4-46.3) 09/17/22 01:39 RDW Coeff of Jame 15.2 % (11.5-14.5) H 09/17/22 01:39 Plt Count 353 K/uL (130-400) 09/17/22 01:39 MPV 9.5 fL (9.4-12.3) 09/17/22 01:39 Immature Gran % (Auto) 0.4 % 09/17/22 01:39 Neut % (Auto) 59.8 % 09/17/22 01:39 Lymph % (Auto) 22.9 % 09/17/22 01:39 Randall % (Auto) 10.2 % 09/17/22 01:39 Eos % (Auto) 6.0 % 09/17/22 01:39 Baso % (Auto) 0.7 % 09/17/22 01:39 Neut # (Auto) 5.38 K/uL (1.4-6.5) 09/17/22 01:39 Lymph # (Auto) 2.06 K/uL (1.2-3.4) 09/17/22 01:39 Randall # (Auto) 0.92 K/uL (0.24-0.82) H 09/17/22 01:39 Eos # (Auto) 0.54 K/uL (0-0.50) H 09/17/22 01:39 Baso # (Auto) 0.06 K/uL (0-0.2) 09/17/22 01:39 Immature Gran # (Auto) 0.04 K/uL (0.00-0.02) H 09/17/22 01:39 ABG pH 7.43 (7.35-7.45) 09/17/22 02:02 ABG pCO2 52 mmHg (35-46) H 09/17/22 02:02 ABG pO2 87 mmHg (80-95) 09/17/22 02:02 ABG HCO3 35 mmol/L (19-24) H 09/17/22 02:02 ABG O2 Saturation 98.5 % (90-95) H 09/17/22 02:02 ABG Base Excess 8.5 mEq/L (-9-1.8) H 09/17/22 02:02 Rickie Test Pos (Pos) 09/17/22 02:02 Oxygen Given 4L 09/17/22 02:02 Sodium 138 mmol/L (136-145) 09/17/22 01:39 Potassium 4.7 mmol/L (3.5-5.1) 09/17/22 01:39 Chloride 99 mmol/L (98-107) 09/17/22 01:39 Carbon Dioxide 33 mmol/L (21-32) H 09/17/22 01:39 Anion Gap 6 (3-11) 09/17/22 01:39 BUN 18 mg/dl (6-23) 09/17/22 01:39 Creatinine 1.06 mg/dl (0.6-1.2) 09/17/22 01:39 Est Cr Clr Drug Dosing 49.6 ml/min 09/17/22 01:39 Est GFR ( Amer) 58.2 ml/min 09/17/22 01:39 Est GFR (Non-Af Amer) 50.3 ml/min 09/17/22 01:39 BUN/Creatinine Ratio 17.0 (10-20) 09/17/22 01:39 Glucose 220 mg/dl (70-99(Fasting)) H 09/17/22 01:39 POC Glucose 211 mg/dl (70-99) H 09/17/22 02:49 Calcium 10.1 mg/dl (8.5-10.1) 09/17/22 01:39 Magnesium 1.9 mg/dl (1.7-2.4) 09/17/22 01:39 Total Bilirubin 0.2 mg/dl (0.2-1.0) 09/17/22 01:39 AST 9 U/L (13-39) L 09/17/22 01:39 ALT 9 U/L (7-52) 09/17/22 01:39 Alkaline Phosphatase 98 U/L (34-104) 09/17/22 01:39 Troponin I High Sens 7.1 pg/ml (0-14) 09/17/22 01:39 B-Natriuretic Peptide 61 pg/ml (0-100) 09/17/22 01:39 Total Protein 6.6 gm/dl (6.0-8.3) 09/17/22 01:39 Albumin 3.8 gm/dl (3.4-5.0) 09/17/22 01:39 Globulin 2.8 gm/dl (2.5-4.0) 09/17/22 01:39 Albumin/Globulin Ratio 1.4 (0.9-2) 09/17/22 01:39 SARS-CoV-2 (PCR) NEGATIVE (Negative) 09/17/22 01:39 Influenza Type A (PCR) Negative (Neg) 09/17/22 01:39 Influenza Type B (PCR) Negative (Neg) 09/17/22 01:39 RSV (RT-PCR) Negative (Neg) 09/17/22 01:39 Code Status & VTE Plan Code Status Full code VTE Prophylaxis Plan VTE Prophylaxis will be ordered: Yes (1) Hypertension Hypertension type: essential hypertension Qualified Code(s): I10 - Essential (primary) hypertension (2) Diabetes Diabetes mellitus type: type 2 Diabetes mellitus salvage determiner insulin use: with salvage determiner use Diabetes mellitus complication status: without complication Qualified Code(s): E11.9 - Type 2 diabetes mellitus without complications; Z79.4 - salvage determiner (current) use of insulin
[2022-09-17] MEDS ORDERED: ACETAMINOPHEN 325 MG TAB PO PRN (04:15)
[2022-09-17] MEDS ORDERED: GLUCOSE 10 TAB/TUBE PO PRN (04:15)
[2022-09-17] MEDS ORDERED: ONDANSETRON INJ 2 MG/ML 2 ML VIAL IV PRN (04:15)
[2022-09-17] MEDS ORDERED: DEXTROSE 50% 50 ML SYRINGE IV PRN (04:15)
[2022-09-17] MEDS ORDERED: GLUCAGON FOR INJ 1 MG VIAL SQ PRN (04:15)
[2022-09-17] MEDS ORDERED: GLUCOSE 40% GEL 15 GM TUBE PO PRN (04:15)
[2022-09-17] MEDS ORDERED: CARBOHYDRATES FOR HYPOGLYCEMIA PO PRN (04:15)
[2022-09-17] MEDS ORDERED: ALBUT/IPRATROP 3MG/0.5MG NEB 3 ML VIAL ONE (04:47)
[2022-09-17] MEDS: ALBUT/IPRATROP 3MG/0.5MG NEB 3 ML VIAL NEB SCH ×7 (04:49→21:56)
--- NOTE | 2022-09-17 05:22 | Billing Data ---
Date of Service September 17, 2022 Coding Level of Care Code 84279 INT INP/OBS CARE
[2022-09-17] MEDS: LEVOTHYROXINE SODIUM 25 MCG TABLET PO SCH (06:26)
[2022-09-17] MEDS: BUDESONIDE 0.5 MG/2 ML VIAL (PULMICORT) INH SCH ×2 (06:59→17:54)
[2022-09-17] MEDS: FORMOTEROL 20 MCG/2 ML VIAL INH SCH ×2 (06:59→17:54)
--- NOTE | 2022-09-17 07:11 | XRay Report ---
XR chest 1V portable HISTORY: 77 years-old Female sob, cough acute cough with shortness of breath COMPARISON: Chest CT 07/23/2022, chest radiograph 03/27/2021 TECHNIQUE: AP view of the chest FINDINGS: Cardiac silhouette is enlarged. Pulmonary vascular congestion with interstitial coarsening. Moderate pulmonary emphysema. Trace pleural effusions with mild bibasilar opacities. No pneumothorax. Degenera tive changes of the shoulders and spine. IMPRESSION: 1. Cardiomegaly with mild pulmonary edema. 2. Trace pleural effusions with mild bibasilar densities suggestive of atelectasis versus pneumonitis . 3. Moderate pulmonary emphysema. ACT 112: Negative or not required by law. The above report was generated using voice recognition software. It may contain grammatical, syntax o r spelling errors. Electronically signed by: Toni Zepeda M.D. 09/17/2022 7:10 AM
--- NOTE | 2022-09-17 09:15 | Hospitalist Progress Note ---
Date of Service September 17, 2022 Assessment & Plan (1) Acute on chronic respiratory failure with hypoxia: Plan: In ED received the following: Solu-Medrol 60 mg IV, doxycycline 100 mg IV and regular insulin 4 units subcu Continue Methylprednisolone 40 mg IV every 8 hours Doxycycline 100 mg p.o. twice daily x5 days Mucinex 1200 mg p.o. every 12 hours Duonebs every 4 hours while awake and every 2 hours when necessary. Nasal cannula oxygen, titrate to keep pulse ox 92-94%, currently on 3LNC Continue Singulair 10 mg daily, Daliresp 500 mg daily, Pulmicort Respules 0.5 mg inhaled twice daily, Perforomist 20 mcg inhaled twice daily, revefenacin (2) COPD exacerbation: Plan: see above, exacerbation cause of #1 (3) Diabetes: Plan: Continue Lantus 15u daily SSI added and tightened given IV steroids (4) Hypothyroidism: Plan: Continue levothyroxine (5) History of pulmonary embolism: Plan: Continue Xarelto (6) Atrial fibrillation: Plan: Continue metoprolol and Xarelto, not in RVR at this time (7) Hypertension: Plan: Continue metoprolol succinate 25 mg twice daily, spironolactone 100 mg every morning (8) KATHLEEN (generalized anxiety disorder): Plan: Continue Lexapro 15 mg every morning, mirtazapine 30 mg at bedtime, Seroquel 200 mg at bedtime (9) Major depression, recurrent, full remission: Plan: See KATHLEEN (10) Anemia: Plan: Anemia, chronic, noted on admission labwork Iron studies ordered Admission and Anticipated Discharge Date Admission Date: September 17, 2022 Subjective see today's H+P note. Results & Data Results & Data ([facility]) Vital Signs (Past 12 Hours) Vital Signs Temp Pulse Resp BP Pulse Ox Pulse Ox O2 Del Method 09/17/22 08:00 63 24 158/77 H 98 Nasal Cannula 09/17/22 07:00 37.0 C 68 21 158/110 H 99 Nasal Cannula 09/17/22 06:59 66 22 99 Nasal Cannula 09/17/22 06:00 63 20 183/77 H 100 Nasal Cannula 09/17/22 04:00 63 16 152/72 H 100 Nasal Cannula 09/17/22 05:00 64 20 165/68 H 91 Nasal Cannula 09/17/22 05:00 91 01/04/23 05:26 Nasal Cannula 09/17/22 03:02 66 18 140/63 98 Nasal Cannula 09/17/22 03:02 36.5 C 09/17/22 01:09 Nasal Cannula 09/17/22 01:09 Nasal Cannula 09/17/22 01:09 Nasal Cannula O2 Del Method O2 Flow Rate O2 Flow Rate 09/17/22 08:00 3 09/17/22 07:00 3 09/17/22 06:59 3 09/17/22 06:00 3 09/17/22 04:00 3 09/17/22 05:00 3 09/17/22 05:00 Nasal Cannula 3 09/17/22 05:26 3 09/17/22 03:02 3 09/17/22 03:02 09/17/22 01:09 4 09/17/22 01:09 4 09/17/22 01:09 4 PG Care Time/CCT Total # of Minutes Spent Total Time Spent with Patient: Total time spent is greater than 50% in coordination of care (as documented) at patient's floor/unit and/or counseling patient: Coding Level of Care Code None Diagnoses Acute on chronic respiratory failure with hypoxia J96.21 COPD exacerbation J44.1 Diabetes E11.9; Z79.4 Diabetes mellitus complication status: without complication Diabetes mellitus 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 driver insulin use: with fdc use Diabetes mellitus type: type 2 Hypothyroidism E03.9 History of pulmonary embolism Z86.711 Atrial fibrillation I48.91 Hypertension I10 Hypertension type: essential hypertension KATHLEEN (generalized anxiety disorder) F41.1 Major depression, recurrent, full remission F33.42 Anemia D64.9 (1) Diabetes Diabetes mellitus complication status: without complication Diabetes mellitus 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 driver insulin use: with 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 driver use Diabetes mellitus type: type 2 Qualified Code(s): E11.9 - Type 2 diabetes mellitus without complications; Z79.4 - snf (current) use of insulin (2) Hypertension Hypertension type: essential hypertension Qualified Code(s): I10 - Essential (primary) hypertension
[2022-09-17] MEDS: INSULIN ASPART PER UNIT SC SCH ×4 (09:20→21:58)
[2022-09-17] MEDS: MAGNESIUM OXIDE 400 MG TAB PO SCH ×2 (09:23→20:59)
[2022-09-17] MEDS: guaiFENesin 600 MG TABCR PO SCH ×2 (09:23→20:59)
[2022-09-17] MEDS: ESCITALOPRAM OXALATE 10 MG TAB PO SCH (09:23)
[2022-09-17] MEDS: MONTELUKAST SODIUM 10 MG TABLET PO SCH (09:24)
[2022-09-17] MEDS: ROFLUMILAST 500 MCG TAB PO SCH (09:24)
[2022-09-17] MEDS: SPIRONOLACTONE 100 MG TAB PO SCH (09:24)
[2022-09-17] MEDS: METOPROLOL SUCC 25MG EXT REL TAB PO SCH ×2 (09:24→21:00)
[2022-09-17] MEDS: PANTOprazole 40 MG TAB PO SCH ×2 (09:24→21:00)
[2022-09-17 10:38] LABS: Estimated Average Glucose 169 mg/dl; Hemoglobin A1C 7.5 % (4.5-5.6)
[2022-09-17 10:51] LABS: Ferritin 6.2 ng/ml (8-388)
[2022-09-17] MEDS: methylPREDNISolone 40 MG in SYRINGE 0 ML IV SCH ×2 (12:17→19:52)
--- NOTE | 2022-09-17 14:58 | Electrocardiogram Report ---
Test Reason : Blood Pressure : / mmHG Vent. Rate : 067 BPM Atrial Rate : 067 BPM P-R Int : 170 ms QRS Dur : 068 ms QT Int : 396 ms P-R-T Axes : 064 002 050 degrees QTc Int : 418 ms Normal sinus rhythm Nonspecific ST and T wave abnormality Abnormal ECG When compared with ECG of 27-MAR-2021 21:51, QRS axis Shifted right Nonspecific T wave abnormality now evident in Anterior leads T wave inversion no longer evident in Lateral leads Confirmed by Larry Washington ([id number]) on 09/17/2022 2:58:27 PM Referred By: REFERRED SELF Confirmed By:Larry Washington
[2022-09-17] MEDS: RIVAROXABAN 20 MG TAB PO SCH (16:32)
[2022-09-17] MEDS ORDERED: IRON SUCROSE 300 MG in SODIUM CHLORIDE 0.9% 250 ML IV SCH (18:30)
[2022-09-17] MEDS: QUEtiapine FUMARATE 200 MG TAB PO SCH (20:59)
[2022-09-17] MEDS: DOXYCYCLINE HYCLATE 100 MG CAP PO SCH (20:59)
[2022-09-17] MEDS: MIRTAZAPINE TAB 15 MG TAB PO SCH (21:00)
[2022-09-17] MEDS: LANTUS PER UNIT CHARGE SQ SCH (21:59)
[2022-09-18] MEDS: ALBUT/IPRATROP 3MG/0.5MG NEB 3 ML VIAL NEB SCH ×5 (03:03→17:59)
[2022-09-18] MEDS: methylPREDNISolone 40 MG in SYRINGE 0 ML IV SCH ×3 (03:48→20:02)
[2022-09-18] MEDS: LEVOTHYROXINE SODIUM 25 MCG TABLET PO SCH (05:30)
[2022-09-18 07:00] LABS: Hematocrit (blood only) 27.8 % (34.1-44.9); Hemoglobin 8.3 g/dl (12.0-16.0); Mean Corpuscular Hemoglobin 23.7 pg (25.0-34.0); Mean Corpuscular Hgb Conc 29.9 g/dL (32.0-36.0); Mean Corpuscular Volume 79.4 fL (80.0-100.0); Mean Platelet Volume 9.6 fL (9.4-12.3); Platelet Count 345 K/uL (130-400); RDW Coefficient of Variation 15.4 % (11.5-14.5); RDW Standard Deviation 44.4 fL (36.4-46.3); White Blood Count 12.42 K/ul (4.8-10.8)
[2022-09-18 07:28] LABS: Basophils # (auto) 0.02 K/uL (0-0.2); Basophils % (auto) 0.2 %; Hypochromasia Present; Immature Granulocytes # (auto) 0.09 K/uL (0.00-0.02); Immature Granulocytes % (auto) 0.7 %; Lymphocytes # (auto) 0.53 K/uL (1.2-3.4); Lymphocytes % (auto) 4.3 %; Microcytosis Present; Monocytes # (auto) 0.46 K/uL (0.24-0.82); Monocytes % (auto) 3.7 %; Neutrophils # (auto) 11.32 K/uL (1.4-6.5); Neutrophils % (auto) 91.1 %
[2022-09-18] MEDS: BUDESONIDE 0.5 MG/2 ML VIAL (PULMICORT) INH SCH ×2 (07:33→17:49)
[2022-09-18] MEDS: FORMOTEROL 20 MCG/2 ML VIAL INH SCH ×2 (07:33→17:49)
[2022-09-18 07:42] LABS: Albumin Level 3.7 gm/dl (3.4-5.0); BUN Creatinine Ratio 26.4 (10-20); Calcium 8.9 mg/dl (8.5-10.1); Creatinine Clr Calc Pharmacy 49.6 ml/min; Est GFR (African American) 58.2 ml/min; Est GFR (Non-African American) 50.3 ml/min; Magnesium 2.2 mg/dl (1.7-2.4); Phosphorus 3.5 mg/dl (2.5-4.9); Potassium 4.9 mmol/L (3.5-5.1)
[2022-09-18] MEDS: PANTOprazole 40 MG TAB PO SCH ×2 (08:20→20:04)
[2022-09-18] MEDS: METOPROLOL SUCC 25MG EXT REL TAB PO SCH ×2 (08:20→20:03)
[2022-09-18] MEDS: ESCITALOPRAM OXALATE 10 MG TAB PO SCH (08:20)
[2022-09-18] MEDS: ROFLUMILAST 500 MCG TAB PO SCH (08:21)
[2022-09-18] MEDS: DOXYCYCLINE HYCLATE 100 MG CAP PO SCH ×2 (08:21→20:02)
[2022-09-18] MEDS: INSULIN ASPART PER UNIT SC SCH ×4 (08:21→20:11)
[2022-09-18] MEDS: MONTELUKAST SODIUM 10 MG TABLET PO SCH (08:21)
[2022-09-18] MEDS: guaiFENesin 600 MG TABCR PO SCH ×2 (08:21→20:02)
[2022-09-18] MEDS: MAGNESIUM OXIDE 400 MG TAB PO SCH ×2 (08:22→20:19)
[2022-09-18] MEDS: SPIRONOLACTONE 100 MG TAB PO SCH (08:23)
--- NOTE | 2022-09-18 09:52 | Hospitalist Progress Note ---
Date of Service September 18, 2022 Assessment & Plan (1) Acute on chronic respiratory failure with hypoxia: Plan: In ED received the following: Solu-Medrol 60 mg IV, doxycycline 100 mg IV and regular insulin 4 units subcu. Continue Methylprednisolone 40 mg IV every 8 hours. Doxycycline 100 mg p.o. twice daily x5 days, to complete 09/22. Mucinex 1200 mg p.o. every 12 hours. Duonebs every 6 hours scheduled and every 2 hours as needed. Nasal cannula oxygen, titrate to keep pulse ox 92-94%, currently on 3LNC Continue Singulair 10 mg daily, Daliresp 500 mg daily, Pulmicort Respules 0.5 mg inhaled twice daily, Perforomist 20 mcg inhaled twice daily, revefenacin. Imaging suggested some mild pulmonary edema, Echo today without evidence of ventricular dysfunction. (2) COPD exacerbation: Plan: see above, exacerbation cause of #1 (3) Diabetes: Plan: Continue Lantus 15u daily. SSI added and tightened parameters given IV steroids. (4) Hypothyroidism: Plan: Continue levothyroxine. (5) History of pulmonary embolism: Plan: Continue Xarelto. (6) Atrial fibrillation: Plan: Continue metoprolol and Xarelto, not in RVR at this time. (7) Hypertension: Plan: Continue metoprolol succinate 25 mg twice daily, spironolactone 100 mg every morning. (8) KATHLEEN (generalized anxiety disorder): Plan: Continue Lexapro 15 mg every morning, mirtazapine 30 mg at bedtime, Seroquel 200 mg at bedtime. (9) Major depression, recurrent, full remission: Plan: See KATHLEEN (10) Anemia: Plan: Anemia, chronic, noted on admission labwork. Hgb stable at 8.3 with microcytic MCV. Iron studies ordered; suggestive of significant iron deficiency. Plan Xarelto covers DVT ppx DM2 diet Tele status FULL CODE Admission and Anticipated Discharge Date Admission Date: September 17, 2022 Subjective Overnight had some increase in dyspnea, on 5LNC transitioned this afternoon to 3LNC. Feels that her breathing is much better today compared to yesterday. She states that at home she uses all of her inhalers, including the PRN ones, on a scheduled basis due to difficulties at baseline with breathing. Review of Systems Review of Systems: All systems reviewed & are unremarkable except as noted in Subjective Physical Exam Constitutional: WD/WN, vitals as above Respiratory: wheezes audible while patient is talking, diffuse wheezes on auscultation Cardiovascular: RRR, no murmur, no edema Gastrointestinal (Abdomen): normal bowel sounds, soft, nontender, no hepatos plenomegaly Skin: no rashes, warm and dry Psychiatric: A+Ox3, euthymic affect Results & Data Results & Data ([facility]) Vital Signs (Past 12 Hours) Vital Signs Temp Pulse Resp BP Pulse Ox O2 Del Method O2 Flow Rate 09/18/22 07:33 69 20 94 Nasal Cannula 5 09/18/22 07:22 36.6 C 62 23 107/34 L 98 Nasal Cannula 4 09/18/22 05:09 36 C L 62 16 133/65 97 Nasal Cannula 4 09/18/22 05:09 Nasal Cannula 4 09/18/22 04:00 58 L 20 134/72 96 Nasal Cannula 3 09/18/22 01:00 61 20 138/72 93 Nasal Cannula 3 09/17/22 22:00 75 22 141/85 H 94 Nasal Cannula 3 PG Care Time/CCT Total # of Minutes Spent Total Time Spent with Patient: Total time spent is greater than 50% in coordination of care (as documented) at patient's floor/unit and/or counseling patient: Coding Level of Care Code 95276 SUB INP/OBS CARE 3/50MIN Diagnoses Acute on chronic respiratory failure with hypoxia J96.21 COPD exacerbation J44.1 Diabetes E11.9; Z79.4 Diabetes mellitus complication status: without complication Diabetes mellitus fpc insulin use: with fpc use Diabetes mellitus type: type 2 Hypothyroidism E03.9 History of pulmonary embolism Z86.711 Atrial fibrillation I48.91 Hypertension I10 Hypertension type: essential hypertension KATHLEEN (generalized anxiety disorder) F41.1 Major depression, recurrent, full remission F33.42 Anemia D64.9 (1) Diabetes Diabetes mellitus complication status: without complication Diabetes mellitus fpc insulin use: with fpc use Diabetes mellitus type: type 2 Qualified Code(s): E11.9 - Type 2 diabetes mellitus without complications; Z79.4 - long term care administrator (current) use of insulin (2) Hypertension Hypertension type: essential hypertension Qualified Code(s): I10 - Essential (primary) hypertension
[2022-09-18] MEDS ORDERED: FUROSEMIDE INJ 20 MG/2 ML VIAL IV ONE (10:00)
[2022-09-18] MEDS ORDERED: COUGH DROP (SUGAR FREE) LOZ 24 LOZ/1 BOX BUCCAL ONE (10:08)
[2022-09-18] MEDS: RIVAROXABAN 20 MG TAB PO SCH (17:20)
--- NOTE | 2022-09-18 18:30 | XCELERA ---
[id number]
--- NOTE | 2022-09-18 18:43 | XRay Report ---
XR chest 1V portable HISTORY: 77 years-old Female hypoxia acute hypoxia COMPARISON: Chest radiograph September 17, 2022, CT chest 07/23/2022 TECHNIQUE: AP view the chest FINDINGS: Cardiac silhouette is enlarged. Atherosclerosis of the aorta. Pulmonary vascular congestion with mild interstitial coarsening. No pneumothorax. There is mildly improved aeration of the lung bases. Emphy sema. Degenerative changes of the shoulders and spine. IMPRESSION: 1. Cardiomegaly with pulmonary vascular congestion and slightly improved pulmonary edema. 2. Improved aeration of the lung bases. 3. Emphysema. ACT 112: Negative or not required by law. The above report was generated using voice recognition software. It may contain grammatical, syntax o r spelling errors. Electronically signed by: Toni Zepeda M.D. 09/18/2022 6:42 PM
[2022-09-18] MEDS: MIRTAZAPINE TAB 15 MG TAB PO SCH (20:04)
[2022-09-18] MEDS: QUEtiapine FUMARATE 200 MG TAB PO SCH (20:04)
[2022-09-18] MEDS: LANTUS PER UNIT CHARGE SQ SCH (20:12)
[2022-09-18] MEDS: BENZONATATE 100 MG CAPSULE PO PRN (20:22)
[2022-09-18] MEDS: ALBUT/IPRATROP 3MG/0.5MG NEB 3 ML VIAL NEB PRN (21:17)
[2022-09-19] MEDS: ALBUT/IPRATROP 3MG/0.5MG NEB 3 ML VIAL NEB PRN ×3 (01:10→23:23)
[2022-09-19] MEDS: methylPREDNISolone 40 MG in SYRINGE 0 ML IV SCH ×3 (03:44→19:50)
[2022-09-19] MEDS: LEVOTHYROXINE SODIUM 25 MCG TABLET PO SCH (05:39)
[2022-09-19] MEDS: FORMOTEROL 20 MCG/2 ML VIAL INH SCH ×2 (07:20→19:46)
[2022-09-19] MEDS: BUDESONIDE 0.5 MG/2 ML VIAL (PULMICORT) INH SCH ×2 (07:20→19:34)
[2022-09-19] MEDS: ALBUT/IPRATROP 3MG/0.5MG NEB 3 ML VIAL NEB SCH ×5 (07:21→18:16)
[2022-09-19 07:47] LABS: Hematocrit (blood only) 29.4 % (34.1-44.9); Hemoglobin 8.6 g/dl (12.0-16.0); Mean Corpuscular Hemoglobin 23.4 pg (25.0-34.0); Mean Corpuscular Hgb Conc 29.3 g/dL (32.0-36.0); Mean Corpuscular Volume 79.9 fL (80.0-100.0); Mean Platelet Volume 9.4 fL (9.4-12.3); Platelet Count 380 K/uL (130-400); RDW Coefficient of Variation 15.4 % (11.5-14.5); RDW Standard Deviation 44.6 fL (36.4-46.3); Red Blood Count 3.68 M/uL (3.93-5.22); White Blood Count 14.91 K/ul (4.8-10.8)
[2022-09-19 08:09] LABS: Albumin Level 3.8 gm/dl (3.4-5.0); BUN Creatinine Ratio 35.1 (10-20); Calcium 8.8 mg/dl (8.5-10.1); Creatinine Clr Calc Pharmacy 46.7 ml/min; Est GFR (African American) 55.1 ml/min; Est GFR (Non-African American) 47.5 ml/min; Magnesium 2.3 mg/dl (1.7-2.4); Phosphorus 3.3 mg/dl (2.5-4.9); Potassium 5.1 mmol/L (3.5-5.1)
[2022-09-19 08:22] LABS: Basophils # (auto) 0.01 K/uL (0-0.2); Basophils % (auto) 0.1 %; Immature Granulocytes # (auto) 0.16 K/uL (0.00-0.02); Immature Granulocytes % (auto) 1.1 %; Lymphocytes # (auto) 0.63 K/uL (1.2-3.4); Lymphocytes % (auto) 4.2 %; Monocytes % (auto) 3.4 %; Neutrophils # (auto) 13.61 K/uL (1.4-6.5); Neutrophils % (auto) 91.2 %; Polychromasia 1+
[2022-09-19] MEDS ORDERED: PHARMACY GLYCEMIC MGMT CONSULT PRN (08:56)
--- NOTE | 2022-09-19 08:56 | Hospitalist Progress Note ---
Date of Service September 19, 2022 Assessment & Plan (1) Acute on chronic respiratory failure with hypoxia: Plan: Admitted for acute hypoxic respiratory failure 2/2 COPD exacerbation (typically on 2LNC at baseline). History of chronic hypercapnic respiratory failure, on BIPAP at night (also has VIJAY). Overnight with difficulty breathing, VBG with CO2 64, HCO3 33, pH 7.32 (respiratory acidosis with renal compensation). BIPAP ordered qHS, suspect her breathing issues overnight were due to not having BIPAP. Continue Methylprednisolone 40 mg IV every 8 hours. Patient is less wheezy today on exam. Doxycycline 100 mg p.o. twice daily to complete on 09/24/22. Mucinex 1200 mg p.o. every 12 hours. Duonebs every 6 hours scheduled and every 2 hours as needed. Nasal cannula oxygen, titrate to keep pulse ox 88-92%, currently on 4LNC after breathing troubles overnight. Continue Singulair 10 mg daily, Daliresp 500 mg daily, Pulmicort Respules 0.5 mg inhaled twice daily, Perforomist 20 mcg inhaled twice daily, revefenacin. CXR 09/18 suggested some mild pulmonary edema, Echo without evidence of ventricular dysfunction but with mild pulmonary HTN. CXR 09/19 personally interpreted by myself, no evidence of worsening of aeration of lung bases, essentially unchanged CXR. (2) COPD exacerbation: Plan: see above, exacerbation cause of #1. Gold Class D, 100 pack year smoking history. (3) Diabetes: Plan: Continue Lantus 15u daily. SSI added and tightened parameters given IV steroids. (4) Hypothyroidism: Plan: Continue levothyroxine. (5) History of pulmonary embolism: Plan: Continue Xarelto. (6) Atrial fibrillation: Plan: Continue metoprolol and Xarelto, not in RVR at this time. (7) Hypertension: Plan: Continue metoprolol, spironolactone. (8) KATHLEEN (generalized anxiety disorder): Plan: Continue Lexapro 15 mg every morning, mirtazapine 30 mg at bedtime, Seroquel 200 mg at bedtime. (9) Major depression, recurrent, full remission: Plan: See KATHLEEN (10) Anemia: Plan: Anemia, chronic, noted on admission labwork. Hgb stable at 8.3 with microcytic MCV. Iron studies ordered; suggestive of significant iron deficiency. Received Venofer 300mg x1 on 09/17. Plan Xarelto covers DVT ppx DM2 diet Tele status FULL CODE Admission and Anticipated Discharge Date Admission Date: September 17, 2022 Subjective Two episodes of air hunger overnight feeling like she couldn't catch her breath. Did not wear BIPAP overnight; patient reports she is on BIPAP at home. Oxygen level 90% during these episodes. Breathing treatments given with relief. ABG ordered. No other complaints this morning. Review of Systems Review of Systems: All systems reviewed & are unremarkable except as noted in Subjective Physical Exam Constitutional: WD/WN, vitals as above Respiratory: intermittent wheeze on auscultation Cardiovascular: RRR, no murmur, no edema Gastrointestinal (Abdomen): normal bowel sounds, soft, nontender, no hepatosplenomegaly Skin: no rashes, warm and dry Psychiatric: A+Ox3, euthymic affect Results & Data Results & Data ([facility]) Vital Signs (Past 12 Hours) Vital Signs Temp Pulse Pulse Resp BP Pulse Ox O2 Del Method 09/19/22 07:44 60 09/19/22 07:31 36.6 C 62 20 128/74 09/19/22 07:21 68 24 94 Oxymask 09/19/22 04:32 36.5 C 59 L 16 145/76 H 98 Oxymask 09/19/22 00:00 64 09/19/22 03:50 63 24 97 Oxymask 09/19/22 01:10 32 H 96 Oxymask 09/18/22 23:02 36.4 C L 61 20 123/42 L 94 Nasal Cannula 09/18/22 22:08 Nasal Cannula 09/18/22 21:18 60 24 97 Nasal Cannula O2 Flow Rate 09/19/22 07:44 09/19/22 07:31 09/19/22 07:21 3 09/19/22 04:32 5.0 09/19/22 00:00 09/19/22 03:50 6 09/19/22 01:10 6 09/18/22 23:02 2.0 09/18/22 22:08 3 09/18/22 21:18 3 PG Care Time/CCT Total # of Minutes Spent Total Time Spent with Patient: Total time spent is greater than 50% in coordination of care (as documented) at patient's floor/unit and/or counseling patient: Coding Level of Care Code 72407 SUB INP/OBS CARE 350MIN Diagnoses Acute on chronic respiratory failure with hypoxia J96.21 COPD exacerbation J44.1 Diabetes E11.9; Z79.4 Diabetes mellitus complication status: without complication Diabetes mellitus long-term insulin use: with long-term use Diabetes mellitus type: type 2 Hypothyroidism E03.9 History of pulmonary embolism Z86.711 Atrial fibrillation I48.91 Hypertension I10 Hypertension type: essential hypertension KATHLEEN (generalized anxiety disorder) F41.1 Major depression, recurrent, full remission F33.42 Anemia D64.9 (1) Diabetes Diabetes mellitus complication status: without complication Diabetes mellitus long-term insulin use: with terminal operator use Diabetes mellitus type: type 2 Qualified Code(s): E11.9 - Type 2 diabetes mellitus without complications; Z79.4 - MCC (current) use of insulin (2) Hypertension Hypertension type: essential hypertension Qualified Code(s): I10 - Essential (primary) hypertension
[2022-09-19] MEDS: INSULIN ASPART PER UNIT SC SCH ×4 (09:10→20:45)
[2022-09-19] MEDS: guaiFENesin 600 MG TABCR PO SCH ×2 (09:11→20:47)
[2022-09-19] MEDS: SPIRONOLACTONE 100 MG TAB PO SCH (09:11)
[2022-09-19] MEDS: PANTOprazole 40 MG TAB PO SCH ×2 (09:11→20:49)
[2022-09-19] MEDS: METOPROLOL SUCC 25MG EXT REL TAB PO SCH ×2 (09:11→20:51)
[2022-09-19] MEDS: DOXYCYCLINE HYCLATE 100 MG CAP PO SCH ×2 (09:11→20:47)
[2022-09-19] MEDS: ESCITALOPRAM OXALATE 10 MG TAB PO SCH (09:11)
[2022-09-19] MEDS: MONTELUKAST SODIUM 10 MG TABLET PO SCH (09:12)
[2022-09-19] MEDS: ROFLUMILAST 500 MCG TAB PO SCH (09:12)
[2022-09-19] MEDS: MAGNESIUM OXIDE 400 MG TAB PO SCH ×2 (09:16→20:57)
[2022-09-19 09:24] LABS: Base Excess VBG 5.7 mEq/L; HCO3 VBG 33 mmol/L; Oxygen Saturation VBG 82.2 %; PCO2 VBG 64 mmHg (38-50); PO2 VBG 49 mmHg; pH VBG 7.32 (7.36-7.41)
[2022-09-19] MEDS: LANTUS PER UNIT CHARGE SQ SCH ×2 (10:43→20:57)
--- NOTE | 2022-09-19 12:00 | XRay Report ---
XR chest 1V portable CLINICAL HISTORY: Evaluate for improving aeration. COMPARISON STUDY: Chest CT July 23, 2022 and chest radiograph September 18, 2022. FINDINGS: Lung volumes are normal. There is no pneumothorax or pleural effusion. Mild cardiomegaly is unchanged. Underlying emphysema is better depicted on prior CT. Apparent lucency under the right hem idiaphragm is likely artifactual. Lower lung interstitial thickening persists. This may be chronic. T here is no consolidation to suggest pneumonia. IMPRESSION: 1. Lower lung interstitial thickening which is likely chronic. 2. Emphysema. ACT 112: Negative or not required by law. Electronically signed by: Rick Canchola M.D. 09/19/2022 11:58 AM
--- NOTE | 2022-09-19 12:14 | Pharmacy Report ---
Pharmacy Glycemic Short Note 2 - Date of Service September 19, 2022 - Glycemic Short BSG Results (Last 24 hours): 09/18/22 09/18/22 09/19/22 16:39 19:38 07:07 Glucose 252 H POC Glucose 133 H 193 H 09/19/22 09/19/22 07:29 11:43 Glucose POC Glucose 258 H 355 H* OUTPATIENT ANTIDIABETIC REGIMEN: * Lantus 15 units SQ daily * Humalog 12units TIDM * metformin 500mg PO BID HbA1C: 7.5% (09/17/22) ASSESSMENT: * Pt is a 77 YOF admitted with acute hypoxic respiratory failure secondary to COPD exacerbation. Pharmacy consulted to assist with glycemic management. * BSGs largely uncontrolled the last 24h, [phone]/dL. Fasting elevated the last 2 days: 274mg/dL and 258mg/dL. Pt received 15 units of basal and 36 units of bolus insulin yesterday. * Currently receiving methylprednisolone 40mg IV q8h and doxycycline. Tolerating a diet. * Titrate basal by 50% - Lantus 15 units SQ BID starting late morning. Novolog tightened to 15/5 with goal range adjusted to 110-140mg/dL. PLAN FOR INPATIENT GLYCEMIC CONTROL: * Hold outpatient oral diabetes medications * Basal insulin * Lantus 15 units SQ BID * Bolus insulin * NovoLog per scale ACHS or Q6hrs while NPO * Goal Range: Low 110 mg/dL - High 140 mg/dL * Correction Factor: 15 mg/dL/unit * Nutritional / Prandial insulin per carb ratio of 1 unit per 5 grams CHO consumed
[2022-09-19] MEDS: POLYETHYLENE (MIRALAX) 17 GM PACK PO SCH (12:44)
[2022-09-19] MEDS ORDERED: COUGH DROP (SUGAR FREE) LOZ 24 LOZ/1 BOX BUCCAL ONE (15:34)
[2022-09-19] MEDS: RIVAROXABAN 20 MG TAB PO SCH (17:37)
[2022-09-19] MEDS: MIRTAZAPINE TAB 15 MG TAB PO SCH (20:48)
[2022-09-19] MEDS: QUEtiapine FUMARATE 200 MG TAB PO SCH (20:50)
[2022-09-20] MEDS: ALBUT/IPRATROP 3MG/0.5MG NEB 3 ML VIAL NEB PRN ×3 (03:00→23:10)
[2022-09-20] MEDS: methylPREDNISolone 40 MG in SYRINGE 0 ML IV SCH ×3 (04:13→20:17)
[2022-09-20] MEDS: LEVOTHYROXINE SODIUM 25 MCG TABLET PO SCH (06:12)
[2022-09-20] MEDS: FORMOTEROL 20 MCG/2 ML VIAL INH SCH ×2 (06:59→19:31)
[2022-09-20] MEDS: BUDESONIDE 0.5 MG/2 ML VIAL (PULMICORT) INH SCH ×2 (06:59→19:31)
[2022-09-20 07:04] LABS: Hematocrit (blood only) 28.4 % (34.1-44.9); Hemoglobin 8.6 g/dl (12.0-16.0); Mean Corpuscular Hemoglobin 23.6 pg (25.0-34.0); Mean Corpuscular Hgb Conc 30.3 g/dL (32.0-36.0); Mean Corpuscular Volume 77.8 fL (80.0-100.0); Mean Platelet Volume 9.5 fL (9.4-12.3); Platelet Count 363 K/uL (130-400); RDW Coefficient of Variation 15.5 % (11.5-14.5); RDW Standard Deviation 43.8 fL (36.4-46.3); Red Blood Count 3.65 M/uL (3.93-5.22); White Blood Count 11.82 K/ul (4.8-10.8)
[2022-09-20 07:25] LABS: BUN Creatinine Ratio 39.4 (10-20); Calcium 8.8 mg/dl (8.5-10.1); Creatinine Clr Calc Pharmacy 52.5 ml/min; Est GFR (African American) 63.3 ml/min; Est GFR (Non-African American) 54.6 ml/min; Magnesium 2.3 mg/dl (1.7-2.4); Potassium 5.6 mmol/L (3.5-5.1)
[2022-09-20 07:39] LABS: Anisocytosis Present; Basophils # (auto) 0.01 K/uL (0-0.2); Basophils % (auto) 0.1 %; Hypochromasia Present; Immature Granulocytes # (auto) 0.12 K/uL (0.00-0.02); Lymphocytes # (auto) 0.64 K/uL (1.2-3.4); Lymphocytes % (auto) 5.4 %; Monocytes # (auto) 0.35 K/uL (0.24-0.82); Neutrophils % (auto) 90.5 %
[2022-09-20] MEDS: ALBUT/IPRATROP 3MG/0.5MG NEB 3 ML VIAL NEB SCH ×4 (08:07→19:31)
[2022-09-20] MEDS: INSULIN ASPART PER UNIT SC SCH ×4 (08:35→20:13)
[2022-09-20] MEDS: METOPROLOL SUCC 25MG EXT REL TAB PO SCH ×2 (08:36→20:18)
[2022-09-20] MEDS: LANTUS PER UNIT CHARGE SQ SCH ×2 (08:36→20:14)
[2022-09-20] MEDS: ROFLUMILAST 500 MCG TAB PO SCH (08:36)
[2022-09-20] MEDS: PANTOprazole 40 MG TAB PO SCH ×2 (08:36→20:15)
[2022-09-20] MEDS: DOXYCYCLINE HYCLATE 100 MG CAP PO SCH ×2 (08:36→20:15)
[2022-09-20] MEDS: guaiFENesin 600 MG TABCR PO SCH ×2 (08:36→20:18)
[2022-09-20] MEDS: SPIRONOLACTONE 100 MG TAB PO SCH (08:37)
[2022-09-20] MEDS: MONTELUKAST SODIUM 10 MG TABLET PO SCH (08:37)
[2022-09-20] MEDS: POLYETHYLENE (MIRALAX) 17 GM PACK PO SCH (08:37)
[2022-09-20] MEDS: ESCITALOPRAM OXALATE 10 MG TAB PO SCH (08:37)
[2022-09-20] MEDS: MAGNESIUM OXIDE 400 MG TAB PO SCH ×2 (08:43→20:16)
[2022-09-20] MEDS ORDERED: SODIUM CHLORIDE 0.9% 1000ML 500 ML IV ONE (09:00)
--- NOTE | 2022-09-20 09:05 | Hospitalist Progress Note ---
Date of Service September 20, 2022 Assessment & Plan (1) Acute on chronic respiratory failure with hypoxia: Plan: Admitted for acute hypoxic respiratory failure 2/2 COPD exacerbation (typically on 2LNC at baseline). History of chronic hypercapnic respiratory failure, on BIPAP at night (also has VIJAY). 1/6 had difficulty breathing, VBG with CO2 64, HCO3 33, pH 7.32 (respiratory acidosis with renal compensation). BIPAP ordered qHS, advised use while in hospital and should have sleep study outpatient to see if setting need to be adjusted. Decrease methylprednisolone to 40mg IV q12h today given continued improvement in lung exam. Doxycycline 100 mg p.o. twice daily to complete on 09/24/22. Mucinex 1200 mg p.o. every 12 hours. Duonebs every 6 hours scheduled and every 2 hours as needed for SOB/wheezing. Nasal cannula oxygen, titrate to keep pulse ox 88-92%. Continue Singulair 10 mg daily, Daliresp 500 mg daily, Pulmicort Respules 0.5 mg inhaled twice daily, Perforomist 20 mcg inhaled twice daily, revefenacin. Incruse added. Pulmonology consulted and case personally discussed with Dr. Armendariz, appreciate recommendations. (2) COPD exacerbation: Plan: see above, exacerbation cause of #1. Gold Class D, 100 pack year smoking history. (3) Diabetes: Plan: Continue Lantus 15u daily. SSI added and tightened parameters given IV steroids, should also improve as we decrease steroid dosing. (4) Hypothyroidism: Plan: Continue levothyroxine. (5) History of pulmonary embolism: Plan: Continue Xarelto. (6) Atrial fibrillation: Plan: Continue metoprolol and Xarelto, not in RVR at this time. (7) Hypertension: Plan: Continue metoprolol, spironolactone. (8) KATHLEEN (generalized anxiety disorder): Plan: Continue Lexapro 15 mg every morning, mirtazapine 30 mg at bedtime, Seroquel 200 mg at bedtime. (9) Major depression, recurrent, full remission: Plan: See KATHLEEN (10) Anemia: Plan: Anemia, chronic, noted on admission labwork. Hgb stable at 8.6 with microcytic MCV. Iron studies ordered; suggestive of element of iron deficiency anemia. Received Venofer 300mg x1 on 1/4. (11) VIJAY (obstructive sleep apnea): Plan: Continue BIPAP nightly, with outpatient follow up for sleep study to see if settings need to be adjusted. Plan Xarelto covers DVT ppx DM2 diet Tele status FULL CODE Admission and Anticipated Discharge Date Admission Date: September 17, 2022 Subjective Overnight had one episode on BIPAP of shortness of breath, after taking off BIPAP and putting on nasal cannula patient felt breathing was better. Feels overall that her breathing today is better than yesterday and significantly better than the days leading up to admission. Has no other complaints. Review of Systems Review of Systems: All systems reviewed & are unremarkable except as noted in Subjective Physical Exam Constitutional: WD/WN, vitals as above + obese Respiratory: poor air movement throughout, intermittent expiratory wheeze, no crackles Cardiovascular: RRR, no murmur, 1+ bilateral pitting edema Gastrointestinal (Abdomen): normal bowel sounds, soft, nontender, no hepatosplenomegaly Skin: no rashes, warm and dry Psychiatric: A+Ox3, euthymic affect Results & Data Results & Data ([facility]) Vital Signs (Past 12 Hours) Vital Signs Temp Pulse Pulse Resp BP Pulse Ox Pulse Ox 09/20/22 07:35 36.5 C 58 L 24 133/89 94 09/20/22 07:24 56 L 09/20/22 07:00 52 L 18 97 09/20/22 05:00 92 09/20/22 03:08 36.7 C 61 15 130/81 95 09/20/22 02:37 55 L 19 93 09/19/22 21:56 56 L 09/19/22 23:37 56 L 20 93 09/19/22 23:06 36.6 C 56 L 18 132/56 L 99 O2 Del Method O2 Del Method O2 Flow Rate O2 Flow Rate 09/20/22 07:35 Nasal Cannula 2 09/20/22 07:24 09/20/22 07:00 Nasal Cannula 3 09/20/22 05:00 Nasal Cannula 2 09/20/22 03:08 Nasal Cannula 2 09/20/22 02:37 09/19/22 21:56 09/19/22 23:37 2 09/19/22 23:06 Nasal Cannula 4 PG Care Time/CCT Total # of Minutes Spent Total Time Spent with Patient: Total time spent is greater than 50% in coordination of care (as documented) at patient's floor/unit and/or counseling patient: Coding Level of Care Code 26680 SUB INP/OBS CARE MIN Diagnoses Acute on chronic respiratory failure with hypoxia J96.21 COPD exacerbation J44.1 Diabetes E11.9; Z79.4 Diabetes mellitus complication status: without complication Diabetes mellitus custodial insulin use: with intermission coordinator use Diabetes mellitus type: type 2 Hypothyroidism E03.9 History of pulmonary embolism Z86.711 Atrial fibrillation I48.91 Hypertension I10 Hypertension type: essential hypertension KATHLEEN (generalized anxiety disorder) F41.1 Major depression, recurrent, full remission F33.42 Anemia D64.9 VIJAY (obstructive sleep apnea) G47.33 (1) Diabetes Diabetes mellitus complication status: without complication Diabetes mellitus intermission coordinator insulin use: with custodial use Diabetes mellitus type: type 2 Qualified Code(s): E11.9 - Type 2 diabetes mellitus without complications; Z79.4 - rat exterminator (current) use of insulin (2) Hypertension Hypertension type: essential hypertension Qualified Code(s): I10 - Essential (primary) hypertension
--- NOTE | 2022-09-20 10:04 | Pulmonary Consultation ---
Date of Consultation September 20, 2022 Assessment & Plan (1) Acute on chronic respiratory failure with hypoxia and hypercapnia: (2) COPD (chronic obstructive pulmonary disease): (3) Exertional shortness of breath: (4) VIJAY (obstructive sleep apnea): (5) Chronic bronchitis: Plan CT chest 07/23/2022 personally reviewed: Severe centrilobular and paraseptal emp hysema appreciated bilaterally Linear scarring appreciated on the periphery of the lingula No mediastinal lymphadenopathy Chest x-ray 09/19/2022 personally reviewed: Portable film, blunting of the left costophrenic angle, opacities appreciated bilateral lower lobes. --Acute on chronic hypoxic hypercapnic respiratory failure Multifactorial COPD exacerbation and known compliance with BiPAP BNP 61 COVID-19 PCR, influenza A/B, RSV all negative ABG 09/17/2022: 7.43/52/8 7 on 4 L --COPD with emphysema and chronic bronchitis Gold class D On Brovana and budesonide, Yupelri along with Roflumilast at home Also on azithromycin 250 mg [id number], QTC 418 on 09/17/2022 Absolute eosinophil count 540 on 09/17/2022 Patient does have history of absolute eosinophil count as high as 1030 back on 12/01/2019 Biologics for elevated eosinophil counts if symptoms are not controlled with above intervention. For chronic bronchitis continue with hypertonic saline nebulized and chest vest therapy Spirometry 2personally reviewed: Severe obstructive lung dysfunction, FVC 1.32 L 50%, FEV1 0.63 L 32%, FEV1/FVC 47% 2D echo 09/18/2022: EF 65-70%, RVSP 41 mmHg, RV normal in size and function --VIJAY On BiPAP at home Importance of compliance explained the patient in depth --Ex-smoker Greater than [id number] smoking history Quit in 2011 Encouraged to continue with abstinence from smoking Neck screening CAT scan July [address]23 CT chest 07/23/2022 personally reviewed: Severe centrilobular and paraseptal em physema appreciated bilaterally, bullous disease in the right upper lobe Linear scarring appreciated on the periphery of the lingula No mediastinal lymphadenopathy -- History of COVID-19 pneumonia 02/2021 Required hospitalization with dexamethasone Plan: Add Incruse to patient's regimen of formoterol and budesonide in the hospital. Continue with hypertonic saline nebulized and flutter valve Patient has been having issues with BiPAP. Advised her to use BiPAP while she is in the hospital if there is any issues we will try to see if he can change the pressures. Patient will benefit from a dedicated titration study as an outpatient. Do not over oxygenate the patient. Keep try to keep it around 88-92% Go down on to 40 mg every 12 Case was discussed with Dr. Juarez Please note the above document was generated using voice recognition software. It may contain grammatical, syntax or spelling errors.Any formal questions or concerns about the content, text or information contained within the body of this dictation should be directly addressed to the provider for clarification. History of Present Illness Attending Physician: Britney Patrick, History of Present Illness 77-year-old female comes to pulmonary for underlying present to the hospital for worsening shortness of breath Past medical history:chronic hypoxic respiratory failure, COPD and VIJAY, GERD, morbid obesity, depression/anxiety, diabetes type 2, hypothyroidism, PE and DVT on Xarelto,COVID-19 pneumonia February 2021,History of breast cancer as well as ovarian cancer in the past. Patient was last seen by me in the clinic on 06/13/2022 At the time of examination patient was not in any respiratory distress. She was saturating 98% on 2 L nasal cannula. I went down to 1 L. She stated that she has been having shortness of breath for the last 3 to 4 days progressively getting worse She has been using all her inhalers as advised. When it comes to her BiPAP she says that she is able to use it for couple of hours but then she wakes up short of breath she takes it off and only oxygen at that time helps. Does complain of cough but has been having difficulty bringing it up. Denies any fever or chills, no hemoptysis Does complain of diarrhea at home which has been going on for very long time. No nausea or vomiting No headache, no blurry vision Social history: [id number] smoking history, quit in 2011,no alcohol use, no illicit drug use. 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 Pets: None. No birds or poultry nearby Allergies: Denies No personal or family history of asthma. No history of lung cancer in the family. COPD and 2 brothers. Allergies Allergy/AdvReac Type Severity Reaction Status Date / Time rabies vaccine, duck-embryo Allergy Severe HIVES Verified 06/09/22 12:02 ragweed pollen Allergy Unknown UNKNOWN Verified 06/09/22 12:02 tomato Allergy Unknown HIVES Verified 06/09/22 12:02 Home Medications Medication Instructions Recorded Confirmed Type escitalopram oxalate 10 mg tablet 15 mg PO QAM 02/10/19 06/13/22 History famotidine 20 mg tablet 20 mg PO QAM 02/10/19 06/13/22 History levothyroxine 25 mcg tablet 25 mcg PO QAM 02/10/19 06/13/22 History metformin 500 mg tablet,extended 500 mg PO BID 02/10/19 06/13/22 History release 24 hr metoprolol succinate 25 mg capsule 25 mg PO BID 02/10/19 06/13/22 History sprinkle, ext. release 24 hr mirtazapine 30 mg tablet 30 mg PO HS 02/10/19 06/13/22 History pantoprazole 40 mg tablet,delayed 40 mg PO BID 02/10/19 06/13/22 History release quetiapine 200 mg tablet 200 mg PO HS 02/10/19 06/13/22 History rivaroxaban 20 mg tablet (Xarelto) 20 mg PO QAM 02/10/19 06/13/22 History spironolactone 50 mg tablet 100 mg PO QA 02/10/19 06/13/22 History magnesium oxide 400 mg PO BID 02/20/19 06/13/22 History insulin glargine 100 unit/mL (3 15 unit subcut DAILY@2100 12/01/19 06/13/22 History mL) subcutaneous pen (Lantus Solostar U-100 Insulin) insulin lispro 100 unit/mL 12 unit subcut TIDM 05/22/20 06/13/22 History subcutaneous pen (Humalog KwikPen (U-100) Insulin) 21cen Vit-D [place] 400iu Chew 1 tab PO DAILY 02/27/21 06/13/22 History montelukast 10 mg tablet 10 mg PO DAILY 02/27/21 06/13/22 History polysaccharide iron complex 150 mg 150 mg PO BID 02/27/21 06/13/22 History iron capsule (Poly-Iron) albuterol sulfate 90 mcg/actuation 2 puff inhalation Q6H PRN 06/13/22 06/13/22 Rx aerosol inhaler Shortness Of Breath Or Wheezing #18 grams arformoterol 15 mcg/2 mL solution 2 ml inhalation BID #120 mL 06/13/22 06/13/22 Rx for nebulization (Brovana) azithromycin 250 mg tablet 250 mg PO .COMPLEX #36 tabs 06/13/22 06/13/22 Rx budesonide 0.5 mg/2 mL suspension 0.5 mg (2 mL) inhalation BID #60 mL 06/13/22 06/13/22 Rx for nebulization ipratropium 0.5 mg-albuterol 3 mg 3 ml inhalation Q8H PRN shortness 06/13/22 06/13/22 Rx (2.5 mg base)/3 mL nebulization of breath or wheezing #180 mL soln roflumilast 500 mcg tablet 500 mcg PO DAILY #30 tabs 06/13/22 06/13/22 Rx (Daliresp) sodium chloride 7 % for 1 inh inhalation BID #240 mL 06/13/22 06/13/22 Rx nebulization revefenacin 175 mcg/3 mL solution 175 mcg (3 mL) inhalation DAILY 06/26/22 Rx for nebulization #90 mL Patient History Medical History Acute and chronic respiratory failure with hypoxia Acute on chronic combined systolic (congestive) and diastolic (congestive) heart failure Acute respiratory failure with hypoxia Atelectasis Breast cancer, right breast CHF (congestive heart failure) COPD (chronic obstructive pulmonary disease) COPD exacerbation Diabetes Elevated troponin Endocarditis KATHLEEN (generalized anxiety disorder) GERD (gastroesophageal reflux disease) GI bleed Hypoxia Major depression, recurrent, full remission MSSA (methicillin susceptible Staphylococcus aureus) septicemia Nausea & vomiting Obesity hypoventilation syndrome QT prolongation Septic thrombophlebitis Spinal abscess Syncope Vomiting and diarrhea Surgical History History of lumpectomy Family History Other Coronary heart disease Stroke Social History Smoking Status: Former smoker Second Hand Exposure: No; Hx Alcohol Use: No Hx Substance Use: No Preferred Language: Lithuanian Communication Ability: Effective Patient Access Required: No Beliefs That Will Affect Care: None marital status: Single Current Living Situation: Alone Current Living Situation Comment: caregiver 5 nights a week, caregiver for 3hrs a day 3 days a week current occupational status: retired How many Children do You have: 0 Feels Safe at Home: Yes Assistive Devices: CPAP, Hospital Bed, Oxygen - Continuous, Scooter/Electric Scooter and Walker Review of Systems Review of Systems: All systems reviewed & are unremarkable except as noted in HPI & below Physical Exam Physical Exam: Constitutional: No acute distress HEENT: EOMI, PERRLA,thick neck Respiratory system:Decreased air entry bilaterally, no crackles, no rhonchi, positive expiratory wheeze bilaterally CVS: S1-S2 positive, no murmurs or gallops, distant heart sounds Abdomen: Soft, nontender, nondistended, positive bowel sounds x4,obese Extremities: +2 pulses bilaterally radialis, no cyanosis,+1 pitting edema bila teral lower extremity Neuro: Awake alert oriented x3 Psych: Normal mood and affect G/U: No Jackson Skin: no rashes, warm and dry Lymphatic: no cervical or axillary lymphadenopathy Results & Data Results & Data ([facility]) Vital Signs (Past 12 Hours) Vital Signs Temp Pulse Pulse Resp BP Pulse Ox Pulse Ox 09/20/22 07:35 36.5 C 58 L 24 133/89 94 09/20/22 07:24 56 L 09/20/22 07:00 52 L 18 97 09/20/22 05:00 92 09/20/22 03:08 36.7 C 61 15 130/81 95 09/20/22 02:37 55 L 19 93 09/19/22 21:56 56 L 09/19/22 23:37 56 L 20 93 09/19/22 23:06 36.6 C 56 L 18 132/56 L 99 O2 Del Method O2 Del Method O2 Flow Rate O2 Flow Rate 09/20/22 07:35 Nasal Cannula 2 09/20/22 07:24 09/20/22 07:00 Nasal Cannula 3 09/20/22 05:00 Nasal Cannula 2 09/20/22 03:08 Nasal Cannula 2 09/20/22 02:37 09/19/22 21:56 09/19/22 23:37 2 09/19/22 23:06 Nasal Cannula 4 Laboratory Results 09/20/22 06:40 09/20/22 06:40 PG Care Time/CCT Total # of Minutes Spent Total Time Spent with Patient: Total time spent is greater than 50% in coordination of care (as documented) at patient's floor/unit and/or counseling patient: Coding Level of Care Code 96676 INT INP/OBS CARE 3/75MIN Diagnoses Acute on chronic respiratory failure with hypoxia and hypercapnia J96.21; J96.22 COPD (chronic obstructive pulmonary disease) J44.9 Exertional shortness of breath R06.02 VIJAY (obstructive sleep apnea) G47.33 Chronic bronchitis J42
[2022-09-20] MEDS: UMECLIDINIUM BROMIDE 62.5MCG/BLISTER 7 PUFFS/INHALER INH SCH (10:40)
[2022-09-20 12:53] LABS: BUN Creatinine Ratio 40.8 (10-20); Calcium 9.4 mg/dl (8.5-10.1); Creatinine Clr Calc Pharmacy 53.1 ml/min; Est GFR (Non-African American) 55.3 ml/min; Potassium 4.7 mmol/L (3.5-5.1)
[2022-09-20] MEDS: BENZONATATE 100 MG CAPSULE PO PRN (15:23)
[2022-09-20] MEDS: RIVAROXABAN 20 MG TAB PO SCH (17:27)
[2022-09-20] MEDS: SODIUM CHLOR 7% 4 ML NEB NEB SCH (19:30)
[2022-09-20] MEDS: QUEtiapine FUMARATE 200 MG TAB PO SCH (20:15)
[2022-09-20] MEDS: MIRTAZAPINE TAB 15 MG TAB PO SCH (20:17)
[2022-09-21] MEDS: ALBUT/IPRATROP 3MG/0.5MG NEB 3 ML VIAL NEB SCH ×6 (03:17→23:51)
[2022-09-21] MEDS: LEVOTHYROXINE SODIUM 25 MCG TABLET PO SCH (05:55)
[2022-09-21 06:31] LABS: Hematocrit (blood only) 28.6 % (34.1-44.9); Hemoglobin 8.4 g/dl (12.0-16.0); Mean Corpuscular Hemoglobin 23.4 pg (25.0-34.0); Mean Corpuscular Hgb Conc 29.4 g/dL (32.0-36.0); Mean Corpuscular Volume 79.7 fL (80.0-100.0); Mean Platelet Volume 9.4 fL (9.4-12.3); Platelet Count 337 K/uL (130-400); RDW Coefficient of Variation 15.7 % (11.5-14.5); RDW Standard Deviation 44.9 fL (36.4-46.3); Red Blood Count 3.59 M/uL (3.93-5.22)
[2022-09-21] MEDS: BUDESONIDE 0.5 MG/2 ML VIAL (PULMICORT) INH SCH ×2 (07:03→19:21)
[2022-09-21 07:04] LABS: BUN Creatinine Ratio 40.6 (10-20); Calcium 8.8 mg/dl (8.5-10.1); Creatinine Clr Calc Pharmacy 51.8 ml/min; Est GFR (African American) 61.7 ml/min; Est GFR (Non-African American) 53.3 ml/min; Potassium 5.2 mmol/L (3.5-5.1)
[2022-09-21] MEDS: FORMOTEROL 20 MCG/2 ML VIAL INH SCH ×2 (07:04→19:21)
[2022-09-21] MEDS: SODIUM CHLOR 7% 4 ML NEB NEB SCH ×2 (07:04→19:21)
--- NOTE | 2022-09-21 08:05 | Hospitalist Progress Note ---
Date of Service September 21, 2022 Assessment & Plan (1) Acute on chronic respiratory failure with hypoxia: Plan: Admitted for acute hypoxic respiratory failure 2/2 COPD exacerbation (typically on 2LNC at baseline). History of chronic hypercapnic respiratory failure, on BIPAP at night (also has VIJAY). 1/6 had difficulty breathing, VBG with CO2 64, HCO3 33, pH 7.32. BIPAP ordered qHS, advised use while in hospital and should have sleep study outpatient to see if settings need to be adjusted. Will further decrease methylprednisolone to 40mg IV daily tomorrow given continued improvement in lung exam. Doxycycline 100 mg p.o. twice daily to complete on 09/24/22. Mucinex 1200 mg p.o. every 12 hours. Duonebs every 6 hours scheduled and every 2 hours as needed for SOB/wheezing. Nasal cannula oxygen, titrate to keep pulse ox 88-92%, avoid over-oxygenation. Continue Singulair 10 mg daily, Daliresp 500 mg daily, Pulmicort Respules 0.5 mg inhaled twice daily, Perforomist 20 mcg inhaled twice daily, revefenacin. Incruse added. Pulmonology consulted and case personally discussed with Dr. Armendariz, appreciate recommendations. (2) COPD exacerbation: Plan: see above, exacerbation cause of #1. Gold Class D, 100 pack year smoking history. (3) Diabetes: Plan: Glycemic management consulted and appreciate recs. BSGs elevated overnight, will increase daily Lantus. Adjust as necessary based on BSGs and steroid dosing. (4) Hypothyroidism: Plan: Continue levothyroxine. (5) History of pulmonary embolism: Plan: Continue Xarelto. (6) Atrial fibrillation: Plan: Continue metoprolol and Xarelto, not in RVR at this time. (7) Hypertension: Plan: Continue metoprolol, spironolactone. (8) KATHLEEN (generalized anxiety disorder): Plan: Continue Lexapro 15 mg every morning, mirtazapine 30 mg at bedtime, Seroquel 200 mg at bedtime. (9) Major depression, recurrent, full remission: Plan: See KATHLEEN (10) Anemia: Plan: Anemia, chronic, noted on admission labwork. Hgb stable at 8.4 with microcytic MCV. Iron studies ordered; suggestive of element of iron deficiency anemia. Received Venofer 300mg x1 on 09/17. (11) VIJAY (obstructive sleep apnea): Plan: Continue BIPAP nightly, with outpatient follow up for sleep study to see if settings need to be adjusted. (12) Hyperkalemia: Plan: K 5.2 today, is chronically on spironolactone, holding this for now. NSS bolus 1L. Defer giving diuretics at this time, recheck tomorrow AM. (13) Constipation: Plan: Start Miralax BID and titrate medications as necessary for one BM daily. Plan Xarelto covers DVT ppx DM2 diet Tele status FULL CODE Admission and Anticipated Discharge Date Admission Date: September 17, 2022 Subjective No acute events overnight. Wore BIPAP until about 4am. She reports improvement in breathing however does not quite feel back to her normal. Also is constipated. Review of Systems Review of Systems: All systems reviewed & are unremarkable except as noted in Subjective Physical Exam Constitutional: WD/WN, vitals as above + obese Respiratory: poor air movement throughout, intermittent expiratory wheeze, no crackles Cardiovascular: RRR, no murmur, no edema RRR, no murmur, 1+ bilateral pitting edema Gastrointestinal (Abdomen): normal bowel sounds, soft, nontender, no hepatosplenomegaly Skin: no rashes, warm and dry Psychiatric: A+Ox3, euthymic affect Results & Data Results & Data ([facility]) Vital Signs (Past 12 Hours) Vital Signs Temp Pulse Pulse Resp BP Pulse Ox Pulse Ox 09/21/22 07:34 36.6 C 58 L 18 158/73 H 93 09/21/22 07:15 60 09/21/22 05:00 95 09/21/22 03:18 56 L 13 95 09/21/22 03:18 56 L 13 95 09/21/22 02:19 36.8 C 58 L 18 143/64 H 94 09/20/22 21:59 61 09/21/22 00:22 92 09/20/22 23:14 63 20 96 09/20/22 23:22 63 24 96 09/20/22 23:02 36.8 C 55 L 18 98 09/20/22 20:15 36.9 C 62 18 117/57 L 97 O2 Del Method O2 Del Method O2 Flow Rate O2 Flow Rate 09/21/22 07:34 Nasal Cannula 2 09/21/22 07:15 09/21/22 05:00 Nasal Cannula 2 09/21/22 03:18 CPAP 09/21/22 03:18 09/21/22 02:19 BiPAP 09/20/22 21:59 09/21/22 00:22 6 09/20/22 23:14 Nasal Cannula 3 09/20/22 23:22 2 09/20/22 23:02 Nasal Cannula 4 09/20/22 20:15 Nasal Cannula 4 PG Care Time/CCT Total # of Minutes Spent Total Time Spent with Patient: Total time spent is greater than 50% in coordination of care (as documented) at patient's floor/unit and/or counseling patient: Coding Level of Care Code 24291 SUB INP/OBS CARE MIN Diagnoses Acute on chronic respiratory failure with hypoxia J96.21 COPD exacerbation J44.1 Diabetes E11.9; Z79.4 Diabetes mellitus complication status: without complication Diabetes mellitus allergist/immunologist insulin use: with intermediate use Diabetes mellitus type: type 2 Hypothyroidism E03.9 History of pulmonary embolism Z86.711 Atrial fibrillation I48.91 Hypertension I10 Hypertension type: essential hypertension KATHLEEN (generalized anxiety disorder) F41.1 Major depression, recurrent, full remission F33.42 Anemia D64.9 VIJAY (obstructive sleep apnea) G47.33 Hyperkalemia E87.5 Constipation K59.00 (1) Diabetes Diabetes mellitus complication status: without complication Diabetes mellitus intermediate insulin use: with intermediate use Diabetes mellitus type: type 2 Qualified Code(s): E11.9 - Type 2 diabetes mellitus without complications; Z79.4 - retirement (current) use of insulin (2) Hypertension Hypertension type: essential hypertension Qualified Code(s): I10 - Essential (primary) hypertension
[2022-09-21] MEDS: INSULIN ASPART PER UNIT SC SCH ×4 (08:12→21:04)
[2022-09-21] MEDS ORDERED: SODIUM CHLORIDE 0.9% 1000ML 1,000 ML IV ONE (08:12)
[2022-09-21] MEDS: LANTUS PER UNIT CHARGE SQ SCH (08:13)
[2022-09-21] MEDS: UMECLIDINIUM BROMIDE 62.5MCG/BLISTER 7 PUFFS/INHALER INH SCH (08:18)
[2022-09-21] MEDS: MAGNESIUM OXIDE 400 MG TAB PO SCH ×2 (08:19→20:06)
[2022-09-21] MEDS: ROFLUMILAST 500 MCG TAB PO SCH (08:19)
[2022-09-21] MEDS: METOPROLOL SUCC 25MG EXT REL TAB PO SCH ×2 (08:19→20:05)
[2022-09-21] MEDS: MONTELUKAST SODIUM 10 MG TABLET PO SCH (08:19)
[2022-09-21] MEDS: PANTOprazole 40 MG TAB PO SCH ×2 (08:19→20:05)
[2022-09-21] MEDS: guaiFENesin 600 MG TABCR PO SCH ×2 (08:19→20:06)
[2022-09-21] MEDS: ESCITALOPRAM OXALATE 10 MG TAB PO SCH (08:19)
[2022-09-21] MEDS: DOXYCYCLINE HYCLATE 100 MG CAP PO SCH ×2 (08:19→20:06)
[2022-09-21] MEDS: methylPREDNISolone 40 MG in SYRINGE 0 ML IV SCH ×2 (08:20→20:06)
[2022-09-21] MEDS: POLYETHYLENE (MIRALAX) 17 GM PACK PO SCH ×2 (08:32→20:07)
--- NOTE | 2022-09-21 10:34 | Pulmonology Progress Note ---
Date of Service September 21, 2022 Assessment & Plan (1) Acute on chronic respiratory failure with hypoxia and hypercapnia: (2) COPD (chronic obstructive pulmonary disease): (3) Exertional shortness of breath: (4) VIJAY (obstructive sleep apnea): (5) Chronic bronchitis: Plan CT chest 07/23/2022 personally reviewed: Severe centrilobular and paraseptal emphysema appreciated bilaterally Linear scarring appreciated on the periphery of the lingula No mediastinal lymphadenopathy Chest x-ray 09/19/2022 personally reviewed: Portable film, blunting of the left c ostophrenic angle, opacities appreciated bilateral lower lobes. 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 For chronic bronchitis continue with hypertonic saline nebulized and chest vest therapy Spirometry 02/12/2022ersonally reviewed: Severe obstructive lung dysfunction, FVC 1.32 L 50%, FEV1 0.63 L 32%, FEV1/FVC 47% 2D echo 09/18/2022: EF 65-70%, RVSP 41 mmHg, RV normal in size and function --VIJAY On BiPAP at home Will benefit from retitration study --Ex-smoker Greater than [id number] smoking history Quit in 2011 Encouraged to continue with abstinence from smoking Neck screening CAT scan July [address] chest 07/23/2022 personally reviewed: Severe centrilobular and paraseptal emphysema appreciated bilaterally, bullous disease in the right upper lobe Linear scarring appreciated on the periphery of the lingula No mediastinal lymphadenopathy -- History of COVID-19 pneumonia 02/2021 Required hospitalization with dexamethasone Plan: Continue with hypertonic saline nebulized and flutter valve Continue with BiPAP nightly and as needed shortness of breath. Can consider going down to 40 mg daily of Solu-Medrol as of tomorrow Case was discussed with Dr. Juarez Please note the above document was generated using voice recognition software. It may contain grammatical, syntax or spelling errors.Any formal questions or concerns about the content, text or information contained within the body of this dictation should be directly addressed to the provider for clarification. Admission and Anticipated Discharge Date Admission Date: September 17, 2022 Subjective Patient seen and examined at bedside. No acute distress, no adverse events overnight. Patient was saturating 96% on 2 L nasal cannula. I went down to 1 L. Overall she says she is feeling better compared to before Denies any chest pain Did use BiPAP overnight. Denies any fever or chills Able to cough of clear phlegm. No hemoptysis Review of Systems Review of Systems: All systems reviewed & are unremarkable except as noted in Subjective Physical Exam Physical Exam: Constitutional: No acute distress HEENT: EOMI, PERRLA,thick neck Respiratory system:Decreased air entry bilaterally, no crackles, no rhonchi, positive expiratory wheeze bilaterally (improved from before) CVS: S1-S2 positive, no murmurs or gallops, distant heart sounds Abdomen: Soft, nontender, nondistended, positive bowel sounds x4,obese Extremities: +2 pulses bilaterally radialis, no cyanosis,+1 pitting edema bilateral lower extremity Neuro: Awake alert oriented x3 Psych: Normal mood and affect G/U: No Jackson Skin: no rashes, warm and dry Lymphatic: no cervical or axillary lymphadenopathy Results & Data Results & Data ([facility]) Vital Signs (Past 12 Hours) Vital Signs Temp Pulse Pulse Resp BP Pulse Ox Pulse Ox 09/21/22 10:32 59 L 22 93 09/21/22 10:22 09/21/22 07:34 36.6 C 58 L 18 158/73 H 93 09/21/22 07:15 60 09/21/22 05:00 95 09/21/22 03:18 56 L 13 95 09/21/22 03:18 56 L 13 95 09/21/22 02:19 36.8 C 58 L 18 143/64 H 94 09/21/22 00:22 92 09/20/22 23:14 63 20 96 09/20/22 23:22 63 24 96 09/20/22 23:02 36.8 C 55 L 18 98 O2 Del Method O2 Del Method O2 Flow Rate O2 Flow Rate 09/21/22 10:32 Nasal Cannula 2 09/21/22 10:22 Nasal Cannula 2 09/21/22 07:34 Nasal Cannula 2 09/21/22 07:15 09/21/22 05:00 Nasal Cannula 2 09/21/22 03:18 CPAP 09/21/22 03:18 09/21/22 02:19 BiPAP 09/21/22 00:22 6 09/20/22 23:14 Nasal Cannula 3 09/20/22 23:22 2 09/20/22 23:02 Nasal Cannula 4 Laboratory Results 09/21/22 05:56 09/21/22 05:56 PG Care Time/CCT Total # of Minutes Spent Total Time Spent with Patient: Total time spent is greater than 50% in coordination of care (as documented) at patient's floor/unit and/or counseling patient: Coding Level of Care Code 57565 SUB INP/OBS CARE 3/50MIN Diagnoses Acute on chronic respiratory failure with hypoxia and hypercapnia J96.21; J96.22 COPD (chronic obstructive pulmonary disease) J44.9 Exertional shortness of breath R06.02 VIJAY (obstructive sleep apnea) G47.33 Chronic bronchitis J42
[2022-09-21] MEDS: ALBUT/IPRATROP 3MG/0.5MG NEB 3 ML VIAL NEB PRN (12:51)
--- NOTE | 2022-09-21 13:36 | Pharmacy Report ---
Pharmacy Glycemic Short Note 2 - Date of Service September 21, 2022 - Glycemic Short BSG Results (Last 24 hours): 09/20/22 09/20/22 09/21/22 16:26 20:06 05:56 Glucose 249 H POC Glucose 175 H 139 H 09/21/22 09/21/22 07:34 11:05 Glucose POC Glucose 214 H 292 H OUTPATIENT ANTIDIABETIC REGIMEN: * Lantus 15 units SQ daily * Humalog 12units TIDM * metformin 500mg PO BID HbA1C: 7.5% (09/17/22) ASSESSMENT: * Patient's BSGs yesterday were [phone] mg/dL. Patient receiving Solu- Medrol 40 mg IV q12. * Patient received 106 units of insulin (30 units of basal and 76 units of bolus). * Fasting today is 214 mg/dL. * Patient is already receiving double her home Lantus dose (at home on 15 units daily and now 15 units BID). Will schedule overnight checks to determine amount needed to decrease fasting BSG. Caution will be utilized since once steroids are discontinued, patient will require much less insulin. * Continue tightened Novolog. BACKGROUND * Pt is a 77 YOF admitted with acute hypoxic respiratory failure secondary to COPD exacerbation. Pharmacy consulted to assist with glycemic management. * BSGs largely uncontrolled the last 24h, [phone]/dL. Fasting elevated the last 2 days: 274mg/dL and 258mg/dL. Pt received 15 units of basal and 36 units of bolus insulin yesterday. * Currently receiving methylprednisolone 40mg IV q8h and doxycycline. Tolerating a diet. * Titrate basal by 50% - Lantus 15 units SQ BID starting late morning. Novolog tightened to 15/5 with goal range adjusted to 110-140mg/dL. PLAN FOR INPATIENT GLYCEMIC CONTROL: * Hold outpatient oral diabetes medications * Basal insulin * Lantus 15 units SQ BID * Bolus insulin * NovoLog per scale ACHS or Q6hrs while NPO + 00,04 * Goal Range: Low 110 mg/dL - High 140 mg/dL * Correction Factor: 20 mg/dL/unit * Nutritional / Prandial insulin per carb ratio of 1 unit per 4 grams CHO consumed
[2022-09-21] MEDS: RIVAROXABAN 20 MG TAB PO SCH (17:14)
[2022-09-21] MEDS: QUEtiapine FUMARATE 200 MG TAB PO SCH (20:05)
[2022-09-21] MEDS: MIRTAZAPINE TAB 15 MG TAB PO SCH (20:07)
[2022-09-21] MEDS ORDERED: LANTUS PER UNIT CHARGE SQ SCH (21:00)
[2022-09-22] MEDS: INSULIN ASPART PER UNIT SC SCH ×6 (00:16→20:16)
[2022-09-22] MEDS: ALBUT/IPRATROP 3MG/0.5MG NEB 3 ML VIAL NEB PRN ×2 (03:32→23:17)
[2022-09-22] MEDS: LEVOTHYROXINE SODIUM 25 MCG TABLET PO SCH (05:36)
[2022-09-22 06:37] LABS: Hemoglobin 8.6 g/dl (12.0-16.0)
[2022-09-22 06:44] LABS: Calcium 9.1 mg/dl (8.5-10.1); Creatinine Clr Calc Pharmacy 52.5 ml/min; Est GFR (African American) 62.5 ml/min; Est GFR (Non-African American) 53.9 ml/min; Potassium 4.8 mmol/L (3.5-5.1)
[2022-09-22] MEDS: ALBUT/IPRATROP 3MG/0.5MG NEB 3 ML VIAL NEB SCH ×4 (07:20→19:28)
[2022-09-22] MEDS: FORMOTEROL 20 MCG/2 ML VIAL INH SCH ×2 (07:21→19:09)
[2022-09-22] MEDS: BUDESONIDE 0.5 MG/2 ML VIAL (PULMICORT) INH SCH ×2 (07:22→19:09)
[2022-09-22] MEDS: SODIUM CHLOR 7% 4 ML NEB NEB SCH ×2 (07:22→19:09)
[2022-09-22] MEDS: LANTUS PER UNIT CHARGE SQ SCH (08:16)
[2022-09-22] MEDS: UMECLIDINIUM BROMIDE 62.5MCG/BLISTER 7 PUFFS/INHALER INH SCH (08:20)
[2022-09-22] MEDS: ROFLUMILAST 500 MCG TAB PO SCH (08:21)
[2022-09-22] MEDS: METOPROLOL SUCC 25MG EXT REL TAB PO SCH ×2 (08:21→20:13)
[2022-09-22] MEDS: DOXYCYCLINE HYCLATE 100 MG CAP PO SCH ×2 (08:21→20:13)
[2022-09-22] MEDS: ESCITALOPRAM OXALATE 10 MG TAB PO SCH (08:21)
[2022-09-22] MEDS: guaiFENesin 600 MG TABCR PO SCH ×2 (08:21→20:13)
[2022-09-22] MEDS: MAGNESIUM OXIDE 400 MG TAB PO SCH ×2 (08:21→20:13)
[2022-09-22] MEDS: MONTELUKAST SODIUM 10 MG TABLET PO SCH (08:21)
[2022-09-22] MEDS: PANTOprazole 40 MG TAB PO SCH ×2 (08:22→20:13)
[2022-09-22] MEDS: POLYETHYLENE (MIRALAX) 17 GM PACK PO SCH ×2 (08:22→20:13)
[2022-09-22] MEDS ORDERED: methylPREDNISolone 40 MG in SYRINGE 0 ML IV SCH (09:00)
--- NOTE | 2022-09-22 11:05 | Pulmonology Progress Note ---
Date of Service September 22, 2022 Assessment & Plan (1) Acute on chronic respiratory failure with hypoxia and hypercapnia: (2) COPD (chronic obstructive pulmonary disease): (3) Exertional shortness of breath: (4) VIJAY (obstructive sleep apnea): (5) Chronic bronchitis: Plan Impression: 77-year-old female with advanced obstructive lung disease admitted with exacerbation. She is clinically improved but not yet back to baseline. Recommendations: 1. COPD: Continue Pulmicort and budesonide nebs as well as as needed albuterol Atrovent. Continue Mucinex 1200 mg daily. Can transition from methylprednisolone to prednisone. Continue doxycycline. 2. Increase mobility as tolerated. Out of bed to chair is much as tolerated 3. Hypercarbic respiratory failure: Continue PAP at night. Admission and Anticipated Discharge Date Admission Date: September 17, 2022 Subjective Patient seen and examined. EMR reviewed. The patient is lying supine in bed. She thinks she is making some improvement with regards to her breathing but does not yet feel back to baseline. She continues to exhibit intermittent wheezing. She is coughing but not expectorating any phlegm. She is up using the bedside commode. Review of Systems Review of Systems: Negative except as noted in HPI Physical Exam Constitutional: WD/WN, vitals as above + morbidly obese Neck: trachea midline, no thyromegaly Respiratory: no respiratory distress, no labored breathing and not tachypneic Auscultation: + wheezes Cardiovascular: RRR, no murmur, no edema Gastrointestinal (Abdomen): normal bowel sounds, soft, nontender, no hepatosplenomegaly Musculoskeletal: Extremities: extremities normal to inspection Skin: no rashes, warm and dry Neurologic: Nonfocal exam Lymphatic: no cervical lymphadenopathy Results & Data Results & Data ([facility]) Vital Signs (Past 12 Hours) Vital Signs Temp Pulse Pulse Pulse Resp BP Pulse Ox 09/22/22 10:50 55 L 20 95 09/22/22 09:38 09/22/22 07:25 54 L 09/22/22 07:22 54 L 18 95 09/22/22 06:48 36.6 C 53 L 19 150/89 H 97 09/22/22 03:32 61 20 92 09/22/22 02:50 36.5 C 56 L 17 162/71 H 94 09/21/22 23:51 54 L 24 91 09/21/22 23:51 54 L 24 91 O2 Del Method O2 Flow Rate 09/22/22 10:50 Nasal Cannula 2 09/22/22 09:38 Nasal Cannula 2 09/22/22 07:25 09/22/22 07:22 Nasal Cannula 2 09/22/22 06:48 Nasal Cannula 2 09/22/22 03:32 Nasal Cannula 2 09/22/22 02:50 Nasal Cannula 2 09/21/22 23:51 CPAP 2 09/21/22 23:51 Laboratory Results 09/22/22 06:06 09/22/22 06:06 Diagnostic Findings No new imaging PG Care Time/CCT Total # of Minutes Spent Total Time Spent with Patient: Total time spent is greater than 50% in coordination of care (as documented) at patient's floor/unit and/or counseling patient: Coding Level of Care Code 87472 SUB INP/OBS CARE 2/35MIN Diagnoses Acute on chronic respiratory failure with hypoxia and hypercapnia J96.21; J96.22 COPD (chronic obstructive pulmonary disease) J44.9 Exertional shortness of breath R06.02 VIJAY (obstructive sleep apnea) G47.33 Chronic bronchitis J42
[2022-09-22] MEDS ORDERED: COUGH DROP (SUGAR FREE) LOZ 24 LOZ/1 BOX BUCCAL ONE (11:50)
--- NOTE | 2022-09-22 12:03 | Hospitalist Progress Note ---
Date of Service September 22, 2022 Assessment & Plan (1) Acute on chronic respiratory failure with hypoxia: Plan: -Admitted for acute hypoxic respiratory failure 2/2 COPD exacerbation (typically on 2LNC at baseline). -History of chronic hypercapnic respiratory failure, on BIPAP at night (also has VIJAY). -Much improved wheezing, although still some, with cough -Now on methylprednisolone to 40mg IV daily -Doxycycline 100 mg p.o. twice daily to complete on 09/24/22. -Mucinex 1200 mg p.o. every 12 hours. -Duonebs every 6 hours scheduled and every 2 hours as needed for SOB/wheezing. -Nasal cannula oxygen, titrate to keep pulse ox 88-92%, avoid over-oxygenation. -Continue Singulair 10 mg daily, Daliresp 500 mg daily, Pulmicort Respules 0.5 mg inhaled twice daily, Perforomist 20 mcg inhaled twice daily, revefenacin. Incruse added. -Appreciate Pulmonology recs (2) COPD exacerbation: Plan: see above, exacerbation cause of #1. Gold Class D, 100 pack year smoking history. (3) Diabetes: Plan: Glycemic management consulted and appreciate recs. BSGs elevated overnight, will increase daily Lantus. Adjust as necessary based on BSGs and steroid dosing. (4) Hypothyroidism: Plan: Continue levothyroxine. (5) History of pulmonary embolism: Plan: Continue Xarelto. (6) Atrial fibrillation: Plan: Continue metoprolol and Xarelto, not in RVR at this time. (7) Hypertension: Plan: Continue metoprolol, spironolactone. (8) KATHLEEN (generalized anxiety disorder): Plan: Continue Lexapro 15 mg every morning, mirtazapine 30 mg at bedtime, Seroquel 200 mg at bedtime. (9) Major depression, recurrent, full remission: Plan: See KATHLEEN (10) Anemia: Plan: Anemia, chronic, noted on admission labwork. Hgb stable Iron studies ordered; suggestive of element of iron deficiency anemia. Received Venofer 300mg x1 on 09/17. (11) VIJAY (obstructive sleep apnea): Plan: Continue BIPAP nightly, with outpatient follow up for sleep study to see if settings need to be adjusted. (12) Hyperkalemia: Plan: resolved (13) Constipation: Plan: Start Miralax BID and titrate medications as necessary for one BM daily. Plan Xarelto covers DVT ppx DM2 diet Tele status FULL CODE Admission and Anticipated Discharge Date Admission Date: September 17, 2022 Subjective patient seen and examined, feels better, but still wheezing, with some cough Review of Systems Review of Systems: All systems reviewed are negative, apart from the ones contained in the history. Physical Exam Physical Exam: The patient is awake, alert and oriented 3, well developed and well nourished, normocephalic and atraumatic, lying in bed and in no acute distress. HEENT--PERRL, EOMI, mucous membranes and oropharynx mildly dry Neck--supple. No JVD. No bruits. Thyroid normal, trachea midline, no adenopathy. Heart--normal S1 and S2. No murmurs, rubs or gallops. Lungs--reduced air entry, expiratory wheeze Abdomen--normal bowel sounds and soft. Mild epigastric and left sided abdominal pain Extremities--no cyanosis or clubbing. No edema. Dermatologic--normal skin turgor, normal color, no abnormal lymph nodes, no rash. Neurologic--cranial nerves II through XII grossly intact. Rheumatologic--normal range of motion. Psychiatric--normal affect. Results & Data Results & Data ([facility]) Vital Signs (Past 12 Hours) Vital Signs Temp Pulse Pulse Pulse Resp BP Pulse Ox 09/22/22 11:30 98.1 F 55 L 17 155/70 H 96 09/22/22 10:50 55 L 20 95 09/22/22 09:38 09/22/22 07:25 54 L 09/22/22 07:22 54 L 18 95 09/22/22 06:48 97.9 F 53 L 19 150/89 H 97 09/22/22 03:32 61 20 92 09/22/22 02:50 97.7 F 56 L 17 162/71 H 94 O2 Del Method O2 Flow Rate 09/22/22 11:30 Nasal Cannula 2.0 09/22/22 10:50 Nasal Cannula 2 09/22/22 09:38 Nasal Cannula 2 09/22/22 07:25 09/22/22 07:22 Nasal Cannula 2 09/22/22 06:48 Nasal Cannula 2 09/22/22 03:32 Nasal Cannula 2 01/09/23 02:50 Nasal Cannula 2 PG Care Time/CCT Total # of Minutes Spent Total Time Spent with Patient: Total time spent is greater than 50% in coordination of care (as documented) at patient's floor/unit and/or counseling patient: Coding Level of Care Code 09669 SUB INP/OBS CARE 2/35MIN Diagnoses Acute on chronic respiratory failure with hypoxia J96.21 COPD exacerbation J44.1 Diabetes E11.9; Z79.4 Diabetes mellitus type: type 2 Diabetes mellitus intermediate designer insulin use: with usp use Diabetes mellitus complication status: without complication Hypothyroidism E03.9 History of pulmonary embolism Z86.711 Atrial fibrillation I48.91 Hypertension I10 Hypertension type: essential hypertension KATHLEEN (generalized anxiety disorder) F41.1 Major depression, recurrent, full remission F33.42 Anemia D64.9 VIJAY (obstructive sleep apnea) G47.33 Hyperkalemia E87.5 Constipation K59.00 Time Spent (min) 35 (1) Diabetes Diabetes mellitus type: type 2 Diabetes mellitus usp insulin use: with intermediate designer use Diabetes mellitus complication status: without complication Qualified Code(s): E11.9 - Type 2 diabetes mellitus without complications; 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
--- NOTE | 2022-09-22 12:27 | Pharmacy Report ---
Pharmacy Glycemic Short Note 2 - Date of Service September 22, 2022 - Glycemic Short BSG Results (Last 24 hours): 09/21/22 09/21/22 09/22/22 16:03 20:10 00:09 Glucose POC Glucose 104 H 100 H 217 H 09/22/22 09/22/22 09/22/22 03:24 06:06 07:20 Glucose 172 H POC Glucose 223 H 152 H 09/22/22 11:27 Glucose POC Glucose 169 H OUTPATIENT ANTIDIABETIC REGIMEN: * Lantus 15 units SQ daily * Humalog 12units TIDM * metformin 500mg PO BID HbA1C: 7.5% (09/17/22) ASSESSMENT: 09/22: * 140 units SQ insulin given over last 24 hrs while tolerating a diet and receiving Solu-Medrol 40mg IV Q 12 hours * Fast BSG acceptable this AM with 30 units of basal but also after receipt of 9 units correctional insulin overnight * Steroid dose is being reduced to Prednisone 20mg PO BID, significantly less, therefore would expect a lessening of insulin resistance over the next 24 hrs. Pt did receive IV Solu-Medrol 40mg this AM however. Will begin to titrate down both basal and prandial insulin coverage this evening as a result. BACKGROUND * Pt is a 77 YOF admitted with acute hypoxic respiratory failure secondary to COPD exacerbation. Pharmacy consulted to assist with glycemic management. * BSGs largely uncontrolled the last 24h, [phone]/dL. Fasting elevated the last 2 days: 274mg/dL and 258mg/dL. Pt received 15 units of basal and 36 units of bolus insulin yesterday. * Currently receiving methylprednisolone 40mg IV q8h and doxycycline. Tolerating a diet. * Titrate basal by 50% - Lantus 15 units SQ BID starting late morning. Novolog tightened to 15/5 with goal range adjusted to 110-140mg/dL. PLAN FOR INPATIENT GLYCEMIC CONTROL: * Hold outpatient oral diabetes medications * Basal insulin * Lantus 15 units SQ this AM, reduce PM dose to 10 units * Bolus insulin * NovoLog per scale ACHS or Q6hrs while NPO * Goal Range: Low 110 mg/dL - High 140 mg/dL * Correction Factor: 20 mg/dL/unit * Nutritional / Prandial insulin per carb ratio of 1 unit per 4 grams CHO consumed today, however change CR to 1 unit per 6 gram CHO tomorrow AM
[2022-09-22] MEDS: RIVAROXABAN 20 MG TAB PO SCH (16:55)
[2022-09-22] MEDS: predniSONE 20 MG TAB PO SCH (20:13)
[2022-09-22] MEDS: QUEtiapine FUMARATE 200 MG TAB PO SCH (20:13)
[2022-09-22] MEDS: MIRTAZAPINE TAB 15 MG TAB PO SCH (20:13)
[2022-09-22] MEDS ORDERED: LANTUS PER UNIT CHARGE SQ SCH ×2 (21:00)
[2022-09-23] MEDS: LEVOTHYROXINE SODIUM 25 MCG TABLET PO SCH (05:30)
[2022-09-23] MEDS: SODIUM CHLOR 7% 4 ML NEB NEB SCH ×2 (05:57→20:11)
[2022-09-23] MEDS: FORMOTEROL 20 MCG/2 ML VIAL INH SCH ×2 (05:58→20:11)
[2022-09-23 06:01] LABS: Hematocrit (blood only) 29.8 % (34.1-44.9); Hemoglobin 8.9 g/dl (12.0-16.0); Mean Corpuscular Hemoglobin 23.8 pg (25.0-34.0); Mean Corpuscular Hgb Conc 29.9 g/dL (32.0-36.0); Mean Corpuscular Volume 79.7 fL (80.0-100.0); Mean Platelet Volume 9.3 fL (9.4-12.3); Platelet Count 324 K/uL (130-400); RDW Coefficient of Variation 16.7 % (11.5-14.5); RDW Standard Deviation 45.4 fL (36.4-46.3); Red Blood Count 3.74 M/uL (3.93-5.22); White Blood Count 9.66 K/ul (4.8-10.8)
[2022-09-23] MEDS: BUDESONIDE 0.5 MG/2 ML VIAL (PULMICORT) INH SCH ×2 (06:08→20:11)
[2022-09-23] MEDS: ALBUT/IPRATROP 3MG/0.5MG NEB 3 ML VIAL NEB SCH ×4 (06:08→20:12)
[2022-09-23 06:20] LABS: BUN Creatinine Ratio 35.7 (10-20); Creatinine Clr Calc Pharmacy 45.2 ml/min; Est GFR (African American) 52.8 ml/min; Est GFR (Non-African American) 45.5 ml/min; Potassium 5.2 mmol/L (3.5-5.1)
[2022-09-23] MEDS: DOXYCYCLINE HYCLATE 100 MG CAP PO SCH ×2 (08:06→21:01)
[2022-09-23] MEDS: ESCITALOPRAM OXALATE 10 MG TAB PO SCH (08:07)
[2022-09-23] MEDS: METOPROLOL SUCC 25MG EXT REL TAB PO SCH ×2 (08:07→21:01)
[2022-09-23] MEDS: guaiFENesin 600 MG TABCR PO SCH ×2 (08:07→21:02)
[2022-09-23] MEDS: PANTOprazole 40 MG TAB PO SCH ×2 (08:07→21:01)
[2022-09-23] MEDS: MONTELUKAST SODIUM 10 MG TABLET PO SCH (08:07)
[2022-09-23] MEDS: POLYETHYLENE (MIRALAX) 17 GM PACK PO SCH ×2 (08:07→21:02)
[2022-09-23] MEDS: ROFLUMILAST 500 MCG TAB PO SCH (08:07)
[2022-09-23] MEDS: predniSONE 20 MG TAB PO SCH ×2 (08:07→21:02)
[2022-09-23] MEDS: UMECLIDINIUM BROMIDE 62.5MCG/BLISTER 7 PUFFS/INHALER INH SCH (08:08)
[2022-09-23] MEDS: MAGNESIUM OXIDE 400 MG TAB PO SCH ×2 (08:08→21:02)
[2022-09-23] MEDS: INSULIN ASPART PER UNIT SC SCH ×4 (08:18→20:54)
[2022-09-23] MEDS: LANTUS PER UNIT CHARGE SQ SCH (08:18)
--- NOTE | 2022-09-23 10:30 | Hospitalist Progress Note ---
Date of Service September 23, 2022 Assessment & Plan (1) Acute on chronic respiratory failure with hypoxia: Plan: -Patient was Admitted for acute hypoxic respiratory failure 2/2 COPD exacerbation (typically on 2LNC at baseline). -History of chronic hypercapnic respiratory failure, on BIPAP at night (also has VIJAY). -Much improved wheezing, although still some, with cough and weakness -Now on methylprednisolone to 40mg IV daily -Doxycycline 100 mg p.o. twice daily to complete on 09/24/22. -Mucinex 1200 mg p.o. every 12 hours. -Duonebs every 6 hours scheduled and every 2 hours as needed for SOB/wheezing. -Nasal cannula oxygen, titrate to keep pulse ox 88-92%, avoid over-oxygenation. -Continue Singulair 10 mg daily, Daliresp 500 mg daily, Pulmicort Respules 0.5 mg inhaled twice daily, Perforomist 20 mcg inhaled twice daily, revefenacin. Incruse added. -Appreciate Pulmonology recs (2) COPD exacerbation: Plan: see above, exacerbation cause of #1. Gold Class D, 100 pack year smoking history. (3) Diabetes: Plan: Glycemic management consulted and appreciate recs. BSGs elevated overnight, will increase daily Lantus. Adjust as necessary based on BSGs and steroid dosing. (4) Hypothyroidism: Plan: Continue levothyroxine. (5) History of pulmonary embolism: Plan: Continue Xarelto. (6) Atrial fibrillation: Plan: Continue metoprolol and Xarelto, not in RVR at this time. (7) Hypertension: Plan: Continue metoprolol, spironolactone. (8) KATHLEEN (generalized anxiety disorder): Plan: Continue Lexapro 15 mg every morning, mirtazapine 30 mg at bedtime, Seroquel 200 mg at bedtime. (9) Major depression, recurrent, full remission: Plan: See KATHLEEN (10) Anemia: Plan: Anemia, chronic, noted on admission labwork. Hgb stable Iron studies ordered; suggestive of element of iron deficiency anemia. Received Venofer 300mg x1 on 09/17. (11) VIJAY (obstructive sleep apnea): Plan: Continue BIPAP nightly, with outpatient follow up for sleep study to see if settings need to be adjusted. (12) Hyperkalemia: Plan: resolved (13) Constipation: Plan: Start Miralax BID and titrate medications as necessary for one BM daily. Plan Xarelto covers DVT ppx DM2 diet Tele status FULL CODE Admission and Anticipated Discharge Date Admission Date: September 17, 2022 Subjective patient seen and examined, feels better, but still wheezing, with some cough, feels weak Review of Systems Review of Systems: All systems reviewed are negative, apart from the ones contained in the history. Physical Exam Physical Exam: The patient is awake, alert and oriented 3, well developed and well nourished, normocephalic and atraumatic, lying in bed and in no acute distress. HEENT--PERRL, EOMI, mucous membranes and oropharynx mildly dry Neck--supple. No JVD. No bruits. Thyroid normal, trachea midline, no adenopathy. Heart--normal S1 and S2. No murmurs, rubs or gallops. Lungs--reduced air entry, expiratory wheeze Abdomen--normal bowel sounds and soft. Mild epigastric and left sided abdominal pain Extremities--no cyanosis or clubbing. No edema. Dermatologic--normal skin turgor, normal color, no abnormal lymph nodes, no rash. Neurologic--cranial nerves II through XII grossly intact. Rheumatologic--normal range of motion. Psychiatric--normal affect. Results & Data Results & Data ([facility]) Vital Signs (Past 12 Hours) Vital Signs Temp Pulse Pulse Pulse Resp BP Pulse Ox 09/23/22 08:00 55 L 09/23/22 08:00 09/23/22 07:55 98.4 F 64 19 151/61 H 92 09/23/22 06:00 65 18 95 09/23/22 02:49 98.1 F 55 L 18 156/79 H 95 09/22/22 23:31 60 09/22/22 23:26 56 L 22 95 09/22/22 23:17 57 L 20 94 O2 Del Method O2 Flow Rate 09/23/22 08:00 09/23/22 08:00 Nasal Cannula 2 09/23/22 07:55 Room Air 09/23/22 06:00 Nasal Cannula 2 09/23/22 02:49 Nasal Cannula 2 09/22/22 23:31 09/22/22 23:26 2 09/22/22 23:17 Nasal Cannula 2 PG Care Time/CCT Total # of Minutes Spent Total Time Spent with Patient: Total time spent is greater than 50% in coordination of care (as documented) at patient's floor/unit and/or counseling patient: Coding Level of Care Code 55502 SUB INP/OBS CARE 2/35MIN Diagnoses Acute on chronic respiratory failure with hypoxia J96.21 COPD exacerbation J44.1 Diabetes E11.9; Z79.4 Diabetes mellitus type: type 2 Diabetes mellitus terminal makeup operator insulin use: with penitentiary use Diabetes mellitus complication status: without complication Hypothyroidism E03.9 History of pulmonary embolism Z86.711 Atrial fibrillation I48.91 Hypertension I10 Hypertension type: essential hypertension KATHLEEN (generalized anxiety disorder) F41.1 Major depression, recurrent, full remission F33.42 Anemia D64.9 VIJAY (obstructive sleep apnea) G47.33 Hyperkalemia E87.5 Constipation K59.00 Time Spent (min) 35 (1) Diabetes Diabetes mellitus type: type 2 Diabetes mellitus penitentiary insulin use: with penitentiary use Diabetes mellitus complication status: without complication Qualified Code(s): E11.9 - Type 2 diabetes mellitus without complications; Z79.4 - terminal makeup operator (current) use of insulin (2) Hypertension Hypertension type: essential hypertension Qualified Code(s): I10 - Essential (primary) hypertension
--- NOTE | 2022-09-23 14:55 | Pharmacy Report ---
Pharmacy Glycemic Short Note 2 - Date of Service September 23, 2022 - Glycemic Short BSG Results (Last 24 hours): 09/22/22 09/22/22 09/22/22 16:35 19:59 22:58 Glucose POC Glucose 128 H 98 140 H 09/23/22 09/23/22 09/23/22 05:28 07:22 11:32 Glucose 217 H POC Glucose 207 H 207 H OUTPATIENT ANTIDIABETIC REGIMEN: * Lantus 15 units SQ daily * Humalog 12units TIDM * metformin 500mg PO BID HbA1C: 7.5% (09/17/22) ASSESSMENT: 09/23: * Patient received a total of 92 units of insulin yesterday 25 of which were basal. * Fasting and post prandial BSGs trending up today (207 mg/dL). Will slightly increase evening Lantus dose. * If trend continues can consider switching prednisone times from q12 to BID with meals. Can also consider switching to low dose NPH to cover effects of the prednisone. 09/22: * 140 units SQ insulin given over last 24 hrs while tolerating a diet and receiving Solu-Medrol 40mg IV Q 12 hours * Fast BSG acceptable this AM with 30 units of basal but also after receipt of 9 units correctional insulin overnight * Steroid dose is being reduced to Prednisone 20mg PO BID, significantly less, therefore would expect a lessening of insulin resistance over the next 24 hrs. Pt did receive IV Solu-Medrol 40mg this AM however. Will begin to titrate down both basal and prandial insulin coverage this evening as a result. BACKGROUND * Pt is a 77 YOF admitted with acute hypoxic respiratory failure secondary to COPD exacerbation. Pharmacy consulted to assist with glycemic management. * BSGs largely uncontrolled the last 24h, [phone]/dL. Fasting elevated the last 2 days: 274mg/dL and 258mg/dL. Pt received 15 units of basal and 36 units of bolus insulin yesterday. * Currently receiving methylprednisolone 40mg IV q8h and doxycycline. Tolerating a diet. * Titrate basal by 50% - Lantus 15 units SQ BID starting late morning. Novolog tightened to 15/5 with goal range adjusted to 110-140mg/dL. PLAN FOR INPATIENT GLYCEMIC CONTROL: * Hold outpatient oral diabetes medications * Basal insulin * Lantus 15 units SQ this AM, increase PM dose to 15 units * Bolus insulin * NovoLog per scale ACHS or Q6hrs while NPO * Goal Range: Low 110 mg/dL - High 140 mg/dL * Correction Factor: 20 mg/dL/unit * Nutritional / Prandial insulin per carb ratio of 1 unit per 4 grams CHO consumed today, however change CR to 1 unit per 5 gram CHO tomorrow AM
--- NOTE | 2022-09-23 16:06 | Pulmonology Progress Note ---
Date of Service September 23, 2022 Assessment & Plan (1) Acute on chronic respiratory failure with hypoxia and hypercapnia: (2) COPD (chronic obstructive pulmonary disease): (3) Exertional shortness of breath: (4) VIJAY (obstructive sleep apnea): (5) Chronic bronchitis: Plan Impression: 77-year-old female with advanced obstructive lung disease admitted with exacerbation. She is showing slow and steady clinical improvement. Recommendations: 1. COPD: Continue Pulmicort and budesonide nebs as well as as needed albuterol Atrovent. Continue Mucinex 1200 mg daily. Continue prednisone. Continue doxycycline. 2. Increase mobility as tolerated. Out of bed to chair is much as tolerated 3. Hypercarbic respiratory failure: Continue PAP at night. Patient may be approaching her baseline and may be able to dismiss from the hospital within the next day or 2. She can follow-up with Dr. Armendariz in the outpatient setting. Admission and Anticipated Discharge Date Admission Date: September 17, 2022 Subjective Patient seen and examined. EMR reviewed. The patient is sitting up eating lunch. She does not appear in any respiratory distress. She relates that she is feeling better with regards to her breathing. She continues to exhibit some occasional wheezing. She is not producing any significant phlegm. She states she has been more active and ambulating somewhat. She continues to experience shortness of breath with physical activity. Review of Systems Review of Systems: All systems reviewed & are unremarkable except as noted in Subjective Physical Exam Constitutional: WD/WN, vitals as above + morbidly obese Neck: trachea midline, no thyromegaly Respiratory: no respiratory distress, no labored breathing and not tachypneic Auscultation: + wheezes Cardiovascular: RRR, no murmur, no edema Gastrointestinal (Abdomen): normal bowel sounds, soft, nontender, no hepatosplenomegaly Musculoskeletal: Extremities: extremities normal to inspection Skin: no rashes, warm and dry Lymphatic: no cervical lymphadenopathy Results & Data Results & Data ([facility]) Vital Signs (Past 12 Hours) Vital Signs Temp Pulse Pulse Pulse Resp BP Pulse Ox 09/23/22 15:01 36.9 C 58 L 20 155/72 H 95 09/23/22 14:44 56 L 24 95 09/23/22 11:59 36.7 C 69 19 153/66 H 91 09/23/22 10:48 59 L 22 94 09/23/22 08:00 55 L 09/23/22 08:00 09/23/22 07:55 36.9 C 64 19 151/61 H 92 09/23/22 06:00 65 18 95 O2 Del Method O2 Flow Rate 09/23/22 15:01 Nasal Cannula 2.0 09/23/22 14:44 Nasal Cannula 2 09/23/22 11:59 Nasal Cannula 2.0 09/23/22 10:48 Nasal Cannula 2 09/23/22 08:00 09/23/22 08:00 Nasal Cannula 2 09/23/22 07:55 Room Air 09/23/22 06:00 Nasal Cannula 2 Laboratory Results 09/23/22 05:28 09/23/22 05:28 Diagnostic Findings No new imaging PG Care Time/CCT Total # of Minutes Spent Total Time Spent with Patient: Total time spent is greater than 50% in coordination of care (as documented) at patient's floor/unit and/or counseling patient: Coding Level of Care Code 89125 SUB INP/OBS CARE 2/35MIN Diagnoses Acute on chronic respiratory failure with hypoxia and hypercapnia J96.21; J96.22 COPD (chronic obstructive pulmonary disease) J44.9 Exertional shortness of breath R06.02 VIJAY (obstructive sleep apnea) G47.33 Chronic bronchitis J42
[2022-09-23] MEDS: RIVAROXABAN 15 MG TAB PO SCH (16:59)
[2022-09-23] MEDS ORDERED: COUGH DROP (SUGAR FREE) LOZ 24 LOZ/1 BOX BUCCAL PRN (20:56)
[2022-09-23] MEDS ORDERED: LANTUS PER UNIT CHARGE SQ SCH (21:00)
[2022-09-23] MEDS: QUEtiapine FUMARATE 200 MG TAB PO SCH (21:01)
[2022-09-23] MEDS: MIRTAZAPINE TAB 15 MG TAB PO SCH (21:02)
[2022-09-23] MEDS: BENZONATATE 100 MG CAPSULE PO PRN (21:02)
[2022-09-23] MEDS: ALBUT/IPRATROP 3MG/0.5MG NEB 3 ML VIAL NEB PRN (23:05)
[2022-09-24] MEDS: LEVOTHYROXINE SODIUM 25 MCG TABLET PO SCH (05:38)
[2022-09-24] MEDS: FORMOTEROL 20 MCG/2 ML VIAL INH SCH ×2 (05:52→17:35)
[2022-09-24] MEDS: SODIUM CHLOR 7% 4 ML NEB NEB SCH ×2 (05:52→17:36)
[2022-09-24] MEDS: BUDESONIDE 0.5 MG/2 ML VIAL (PULMICORT) INH SCH ×2 (05:52→17:35)
[2022-09-24] MEDS: ALBUT/IPRATROP 3MG/0.5MG NEB 3 ML VIAL NEB SCH ×4 (06:02→17:36)
[2022-09-24 07:08] LABS: BUN Creatinine Ratio 39.6 (10-20); Calcium 9.2 mg/dl (8.5-10.1); Creatinine Clr Calc Pharmacy 53.8 ml/min; Est GFR (African American) 65.7 ml/min; Est GFR (Non-African American) 56.6 ml/min; Potassium 5.1 mmol/L (3.5-5.1)
[2022-09-24] MEDS: LANTUS PER UNIT CHARGE SQ SCH (08:11)
[2022-09-24] MEDS: INSULIN ASPART PER UNIT SC SCH ×3 (08:11→16:49)
[2022-09-24] MEDS: UMECLIDINIUM BROMIDE 62.5MCG/BLISTER 7 PUFFS/INHALER INH SCH (08:14)
[2022-09-24] MEDS: PANTOprazole 40 MG TAB PO SCH (08:15)
[2022-09-24] MEDS: predniSONE 20 MG TAB PO SCH (08:15)
[2022-09-24] MEDS: MONTELUKAST SODIUM 10 MG TABLET PO SCH (08:15)
[2022-09-24] MEDS: ROFLUMILAST 500 MCG TAB PO SCH (08:15)
[2022-09-24] MEDS: DOXYCYCLINE HYCLATE 100 MG CAP PO SCH (08:16)
[2022-09-24] MEDS: guaiFENesin 600 MG TABCR PO SCH (08:16)
[2022-09-24] MEDS: MAGNESIUM OXIDE 400 MG TAB PO SCH (08:16)
[2022-09-24] MEDS: ESCITALOPRAM OXALATE 10 MG TAB PO SCH (08:16)
[2022-09-24] MEDS: METOPROLOL SUCC 25MG EXT REL TAB PO SCH (08:16)
[2022-09-24] MEDS: POLYETHYLENE (MIRALAX) 17 GM PACK PO SCH (08:17)
--- NOTE | 2022-09-24 14:37 | Pulmonology Progress Note ---
Date of Service September 24, 2022 Assessment & Plan (1) Acute on chronic respiratory failure with hypoxia and hypercapnia: (2) COPD (chronic obstructive pulmonary disease): (3) Exertional shortness of breath: (4) VIJAY (obstructive sleep apnea): (5) Chronic bronchitis: Plan Impression: 77-year-old female with advanced obstructive lung disease admitted with exacerbation. She is showing slow and steady clinical improvement. Recommendations: 1. COPD: Continue Pulmicort and budesonide nebs as well as as needed albuterol Atrovent. Continue Mucinex 1200 mg daily. Would complete 7-day course of prednisone and doxycycline and then discontinue 2. Increase mobility as tolerated. Ambulate as tolerated 3. Hypercarbic respiratory failure: Continue PAP at night. 4. Hypoxemic respiratory failure: Continue supplemental oxygen titrated to keep his oxygen saturations around 88%. Given her hypercarbia would not target higher oxygen saturations It appears the patient has received maximal benefit of inpatient stay and is being dismissed home. She can follow-up with Dr. Armendariz in the outpatient setting. Pulmonary will sign off. Please contact us if we can be of additional assistance Admission and Anticipated Discharge Date Admission Date: September 17, 2022 Subjective Patient seen and examined. EMR reviewed. She is lying supine in bed. She st ates she continues to feel better every day. She states she is going home today. She is awaiting arrival of her caregiver. She continues to experience some wheezing but definitely feels better. She is not coughing or expectorating phlegm Review of Systems Review of Systems: All systems reviewed & are unremarkable except as noted in Subjective Physical Exam Constitutional: WD/WN, vitals as above + morbidly obese Neck: trachea midline, no thyromegaly Respiratory: no respiratory distress, no labored breathing and not tachypneic Auscultation: + wheezes Cardiovascular: RRR, no murmur, no edema Gastrointestinal (Abdomen): normal bowel sounds, soft, nontender, no hepatosplenomegaly Musculoskeletal: Extremities: extremities normal to inspection Skin: no rashes, warm and dry Lymphatic: no cervical lymphadenopathy Results & Data Results & Data ([facility]) Vital Signs (Past 12 Hours) Vital Signs Temp Pulse Pulse Pulse Resp BP Pulse Ox 09/24/22 13:56 61 20 89 L 09/24/22 11:34 36.5 C 58 L 18 156/73 H 100 09/24/22 10:15 60 22 95 09/24/22 08:00 54 L 09/24/22 08:00 09/24/22 07:33 36.5 C 56 L 18 144/70 H 91 09/24/22 06:00 61 20 91 O2 Del Method O2 Flow Rate 09/24/22 13:56 Nasal Cannula 2 09/24/22 11:34 Nasal Cannula 2 09/24/22 10:15 Nasal Cannula 2 09/24/22 08:00 09/24/22 08:00 Nasal Cannula 2 09/24/22 07:33 Nasal Cannula 2 09/24/22 06:00 Nasal Cannula 2 Laboratory Results 09/23/22 05:28 09/24/22 05:36 Diagnostic Findings No new imaging PG Care Time/CCT Total # of Minutes Spent Total Time Spent with Patient: Total time spent is greater than 50% in coordination of care (as documented) at patient's floor/unit and/or counseling patient: Coding Level of Care Code 94891 SUB INP/OBS CARE 2/35MIN Diagnoses Acute on chronic respiratory failure with hypoxia and hypercapnia J96.21; J96.22 COPD (chronic obstructive pulmonary disease) J44.9 Exertional shortness of breath R06.02 VIJAY (obstructive sleep apnea) G47.33 Chronic bronchitis J42
--- NOTE | 2022-09-24 16:11 | Discharge Summary ---
Date of Service September 24, 2022 Admission HPI Per Admitting Provider The patient is a 77-year-old female with a past medical history including COPD, chronic bronchitis, VIJAY, COPD exacerbation, COVID-19 infection, acute on chronic respiratory failure with hypoxia, PE, atrial fibrillation, hypersomnolence, obesity hypoventilation syndrome, pulmonary embolism, hypertension, hypothyroidism, CHF, GERD, major depression, generalized anxiety disorder, septic thrombophlebitis, spinal abscess and syncope. The patient presents to the emergency department with 1 week of progressively worsening shortness of breath and dyspnea on exertion. In the emergency department this evening, patient was COVID-19, influenza a and B and RSV negative Glucose was 211 Principal Diagnosis COPD exacerbation Discharge Exam The patient is awake, alert and oriented 3, well developed and well nourished, normocephalic and atraumatic, lying in bed and in no acute distress. HEENT--PERRL, EOMI, mucous membranes and oropharynx mildly dry Neck--supple. No JVD. No bruits. Thyroid normal, trachea midline, no adenopathy. Heart--normal S1 and S2. No murmurs, rubs or gallops. Lungs--reduced air entry, expiratory wheeze Abdomen--normal bowel sounds and soft. Mild epigastric and left sided abdominal pain Extremities--no cyanosis or clubbing. No edema. Dermatologic--normal skin turgor, normal color, no abnormal lymph nodes, no rash. Neurologic--cranial nerves II through XII grossly intact. Rheumatologic--normal range of motion. Psychiatric--normal affect. Discharge Data Allergies Allergy/AdvReac Type Severity Reaction Status Date / Time rabies vaccine, duck-embryo Allergy Severe HIVES Verified 06/09/22 12:02 ragweed pollen Allergy Unknown UNKNOWN Verified 06/09/22 12:02 tomato Allergy Unknown HIVES Verified 06/09/22 12:02 Consultations 09/20/22 09:00 Consult Pulmonology Routine Hospital Course (1) Acute on chronic respiratory failure with hypoxia: -Patient was Admitted for acute hypoxic respiratory failure 2/2 COPD exacerbation (typically on 2LNC at baseline). -History of chronic hypercapnic respiratory failure, on BIPAP at night (also has VIJAY). -Much improved wheezing, although still some, with cough and weakness -Now on methylprednisolone to 40mg IV daily -Doxycycline 100 mg p.o. twice daily to complete on 09/24/22. -Mucinex 1200 mg p.o. every 12 hours. -Duonebs every 6 hours scheduled and every 2 hours as needed for SOB/wheezing. -Nasal cannula oxygen, titrate to keep pulse ox 88-92%, avoid over-oxygenation. -Continue Singulair 10 mg daily, Daliresp 500 mg daily, Pulmicort Respules 0.5 mg inhaled twice daily, Perforomist 20 mcg inhaled twice daily, revefenacin. Incruse added. -Appreciate Pulmonology recs (2) COPD exacerbation: see above, exacerbation cause of #1. Gold Class D, 100 pack year smoking history. (3) Diabetes: Glycemic management consulted and appreciate recs. BSGs elevated overnight, will increase daily Lantus. Adjust as necessary based on BSGs and steroid dosing. (4) Hypothyroidism: Continue levothyroxine. (5) History of pulmonary embolism: Continue Xarelto. (6) Atrial fibrillation: Continue metoprolol and Xarelto, not in RVR at this time. (7) Hypertension: Continue metoprolol, spironolactone. (8) KATHLEEN (generalized anxiety disorder): Continue Lexapro 15 mg every morning, mirtazapine 30 mg at bedtime, Seroquel 200 mg at bedtime. (9) Major depression, recurrent, full remission: See KATHLEEN (10) Anemia: Anemia, chronic, noted on admission labwork. Hgb stable Iron studies ordered; suggestive of element of iron deficiency anemia. Received Venofer 300mg x1 on 09/17. (11) VIJAY (obstructive sleep apnea): Continue BIPAP nightly, with outpatient follow up for sleep study to see if settings need to be adjusted. (12) Hyperkalemia: resolved (13) Constipation: Start Miralax BID and titrate medications as necessary for one BM daily. Plan Xarelto covers DVT ppx DM2 diet Tele status FULL CODE Total Time Total Time Spent Total Time Spent (In Minutes): 35 Discharge Plan Discharge Items Patient Disposition: Home - Self-Care Reason For Visit: ACUTE ON CHRONIC RESP FAILURE W/ HYPOXIA, COPD EXA Discharge Diagnosis: COPD exacerbation Activity: Resume your previous activity Non-emergency contact: Primary Care Provider and Scraper Hand Call non-emergency contact if: your symptoms worsen Follow-up/Referrals: Dayna Bullard PA-C [Primary Care Provider] - Diet: Regular Addtl Attending Provider Instructions: please make appointment to follow up with your pulmonolgist. Always endevour to wear your CPAP at night Pending Studies at Discharge: No Stand-Alone Forms: My [facility], Smoking Cessation Medications and DC Order Prescriptions: New doxycycline hyclate 100 mg Capsule 100 mg PO BID 5 Days Qty: 10 0RF prednisone 20 mg Tablet 20 mg PO BID 3 Days Qty: 6 0RF prednisone 20 mg tablet 20 mg PO DAILY 3 Days Qty: 3 0RF prednisone 10 mg tablet 10 mg PO DAILY 3 Days Qty: 3 0RF Continued revefenacin 175 mcg/3 mL solution for nebulization 175 mcg inhalation DAILY Qty: 90 6RF Daliresp 500 mcg tablet 500 mcg PO DAILY Qty: 30 5RF albuterol sulfate 90 mcg/actuation HFA aerosol inhaler 2 puff inhalation Q6H PRN (Reason: Shortness Of Breath Or Wheezing) Qty: 18 3RF ipratropium-albuterol 0.5 mg-3 mg(2.5 mg base)/3 mL solution for nebulization 3 ml inhalation Q8H PRN (Reason: shortness of breath or wheezing) Qty: 180 6RF sodium chloride 7 % solution for nebulization 1 inh inhalation BID Qty: 240 6RF budesonide 0.5 mg/2 mL suspension for nebulization 0.5 mg inhalation BID Qty: 60 6RF arformoterol [Brovana] 15 mcg/2 mL solution for nebulization 2 ml inhalation BID Qty: 120 6RF Lantus Solostar U-100 Insulin 100 unit/mL (3 mL) insulin pen 15 unit subcut DAILY@2100 Rx Instructions: per 1st insulin lispro [Humalog KwikPen Insulin] 100 unit/mL insulin pen 12 unit SUBCUT TIDM Rx Instructions: per 1st quetiapine 200 mg Tablet 200 mg PO HS levothyroxine 25 mcg Tablet 25 mcg PO QAM famotidine 20 mg Tablet 20 mg PO QAM pantoprazole 40 mg Tablet,Delayed Release (Dr/Ec) 40 mg PO BID mirtazapine 30 mg tablet 30 mg PO HS metformin 500 mg Tablet Extended Release 24 Hr 500 mg PO BID spironolactone 50 mg Tablet 100 mg PO QAM escitalopram oxalate 10 mg Tablet 15 mg PO QAM Xarelto 20 mg Tablet 20 mg PO QAM metoprolol succinate 25 mg Capsule,Sprinkle,Er 24hr 25 mg PO BID magnesium oxide 400 mg magnesium Tablet 400 mg PO BID 21cen Vit-D [place] 400iu Chew 1 tab PO DAILY polysaccharide iron complex [Poly-Iron] 150 mg iron capsule 150 mg PO BID montelukast 10 mg Tablet 10 mg PO DAILY Discontinued azithromycin 250 mg tablet 250 mg PO .COMPLEX Qty: 36 2RF Rx Instructions: 250 mg PO 1 tab p.o. on Vjzapl-Sebwupmol-Zxcsrr; Discharge Orders: Discharge Order (Routine); Ordered 09/24/22 Ordered By: Kisha Medrano/Other Patient Handouts: Managing Type 2 Diabetes Admission Data Admit Date/Time: 09/17/22 03:22 Attending Provider: Kisha Khan Admit Provider: David Norris Primary Care Provider: Dayna Bullard Other Providers: Brian Armendariz Coding Level of Care Code HOSP INP/OBS DISCH >30 MIN Diagnoses Acute on chronic respiratory failure with hypoxia J96.21 COPD exacerbation J44.1 Diabetes E11.9; Z79.4 Diabetes mellitus type: type 2 Diabetes mellitus care home insulin use: with computer terminal operator use Diabetes mellitus complication status: without complication Hypothyroidism E03.9 History of pulmonary embolism Z86.711 Atrial fibrillation I48.91 Hypertension I10 Hypertension type: essential hypertension KATHLEEN (generalized anxiety disorder) F41.1 Major depression, recurrent, full remission F33.42 Anemia D64.9 VIJAY (obstructive sleep apnea) G47.33 Hyperkalemia E87.5 Constipation K59.00 Time Spent (min) 35
[2022-09-24] MEDS: RIVAROXABAN 15 MG TAB PO SCH (16:51)
== END 2022-09-24 18:58 | disposition home or self-care (01) | DRG 190 ==
LOC: ED 01:19 → SUATTDRO 03:22 → EDINP 03:22 → 2E 09-18 04:16

== ENCOUNTER 2022-10-07 08:40 | Inpatient (IN) ==
[2022-10-07] MEDS ORDERED: ALBUT/IPRATROP 3MG/0.5MG NEB 3 ML VIAL ONE ×2 (08:49→11:28)
[2022-10-07] MEDS ORDERED: methylPREDNISolone 125 MG/2 ML VIAL IV STA (08:52)
[2022-10-07] MEDS ORDERED: ALBUT/IPRATROP 3MG/0.5MG NEB 3 ML VIAL INH STA (08:52)
--- NOTE | 2022-10-07 08:58 | Emergency Department Note ---
Impression & Plan Acute respiratory failure with hypoxia, Anemia, Acute exacerbation of chronic obstructive pulmonary disease ED Provider Note NAME: ROSA HASSAN AGE: 77 SEX: F : 1945 ARRIVES VIA: Ambulance INFORMANT: Patient, ED PROVIDER(S): Haja Vilchis MD CHIEF COMPLAINT: Shortness of breath MEDICAL DECISION MAKING: Patient was seen due to concern for shortness of breath. Blood work is obtained along with an EKG troponin and chest x-ray. She did have a procalcitonin ordered in addition to hour-long DuoNeb magnesium 2 g, methylprednisolone. Respiratory states that the patient was able to breathe and was significantly a nxious and unable to tolerate the BiPAP. Decision was made to retry in approximately 30 minutes. The patient was able to tolerate the BiPAP. The patient did have improvement in her symptoms. The patient's blood work shows a normal white counts with mild anemia hemoglobin 9 but this is relatively unchanged. The patient's platelet count is unremarkable. Kidney function unremarkable. The patient's coags with no changes. The patient's VBG shows chronic hypercarbia but no change in VBG pH. Is negative. Patient is RSV positive. I did speak with the on-call hospitalist service Dr. Lynch and the patient was admitted to medicine service. Critical Care: I have personally spent 75 minutes of critical care time in direct management of this patient. This includes bedside care, interpretation of diagnostic studies, and testing, discussion with consultants, patient, and family members, and other require inpatient management activities. This 75 minutes is in excess of all separately billable procedures. Prior /Outside records reviewed: None Differential diagnosis: Reactive airway disease, pneumonia, pneumothorax, COPD, CHF, infections, cardiac ischemia, pulmonary embolism, musculoskeletal, gastrointestinal, as well as other pathologies. Diagnostics, as interpreted by me: ECG: Normal sinus rhythm, rate of 91, normal intervals normal axis no obvious ST elevations Cardiac monitoring: An order was placed for continuous cardiac monitoring. The monitor shows a rate of 75 with sinus rhythm. Patient was placed on pulse oximetry Medical decision rules: None Imaging studies: See below HPI: Patient presents due to concern for shortness of breath with associated cold symptoms x1 week progressively worse. The patient does complain of associated chest pain but is primarily with coughing. Patient states the cough is nonproductive. Patient does use 2 L at all times. EMS responded and noted the patient was hypoxic on 2 L at 87-88% put her on 4 L and subsequently due to increased work of breathing was placed on CPAP. Patient denies any abdominal pain nausea vomiting or diarrhea. Patient states that she has been compliant with her medications. No recent falls or trauma. PAST MEDICAL HISTORY: See Below PAST SURGICAL HISTORY: See Below SOCIAL HISTORY: See Below HOME MEDICATIONS: See Below ALLERGIES: See Below VITALS: See Below PHYSICAL EXAMINATION: GENERAL: Moderate distress, nasal cannula in place. Increased work of breathing, tachypnea. EYE EXAM: Normal conjunctiva. PERRL, no anisocoria and EOM's grossly intact w/o pain. NECK: Supple, no nuchal rigidity, no adenopathy, non-tender. No signs of meningismus. FROM of the neck with good chin to chest and neck extension. No stridor. LUNGS: Inspiratory expiratory wheezing throughout, increased work of breathing, tachypnea. HEART: NSR, no MRG. ABDOMEN: Abdomen soft, non-tender, normo-active bowel sounds, no masses, no rebound or guarding. BACK: No CVA TTP. SKIN: No rashes and no bruising. UPPER EXTREMITIES: Upper extremities are grossly normal. LOWER EXTREMITIES: Grossly normal, no edema. NEURO EXAM: A&O x3, cranial nerves II-XII grossly intact, normal speech, moves all 4 extremities. Past Med/Surg History Medical History Acute and chronic respiratory failure with hypoxia Acute on chronic combined systolic (congestive) and diastolic (congestive) heart failure Acute respiratory failure with hypoxia Atelectasis Breast cancer, right breast CHF (congestive heart failure) COPD (chronic obstructive pulmonary disease) COPD exacerbation Diabetes Elevated troponin Endocarditis KATHLEEN (generalized anxiety disorder) GERD (gastroesophageal reflux disease) GI bleed Hypoxia Major depression, recurrent, full remission MSSA (methicillin susceptible Staphylococcus aureus) septicemia Nausea & vomiting Obesity hypoventilation syndrome QT prolongation Septic thrombophlebitis Spinal abscess Syncope Vomiting and diarrhea Surgical History History of lumpectomy Family History Other Coronary heart disease Stroke Social History Smoking Status: Never smoker Second Hand Exposure: No; Hx Alcohol Use: No Hx Substance Use: No Preferred Language: Chinese Communication Ability: Effective [place] Pa[employer] Operator Required: No Beliefs That Will Affect Care: None marital status: Single Current Living Situation: Alone Current Living Situation Comment: caregiver 5 nights a week, caregiver for 3hrs a day 3 days a week current occupational status: retired How many Children do You have: 0 Other Information That Helps Us Care for You: No Feels Safe at Home: Yes Safety Concerns: Feels Safe At This Time Assistive Devices: CPAP, Hospital Bed, Oxygen - Continuous, Scooter/Electric Scooter and Walker Allergies Allergies Allergy/AdvReac Type Severity Reaction Status Date / Time rabies vaccine, duck-embryo Allergy Severe HIVES Verified 06/09/22 12:02 ragweed pollen Allergy Unknown UNKNOWN Verified 06/09/22 12:02 tomato Allergy Unknown HIVES Verified 06/09/22 12:02 Home Meds Home Medications Medication Instructions Recorded Confirmed escitalopram oxalate 10 mg tablet 15 mg PO QAM 02/10/19 06/13/22 famotidine 20 mg tablet 20 mg PO QAM 02/10/19 06/13/22 levothyroxine 25 mcg tablet 25 mcg PO QAM 02/10/19 06/13/22 metformin 500 mg tablet,extended 500 mg PO BID 02/10/19 06/13/22 release 24 hr metoprolol succinate 25 mg capsule 25 mg PO BID 02/10/19 06/13/22 sprinkle, ext. release 24 hr mirtazapine 30 mg tablet 30 mg PO HS 02/10/19 06/13/22 pantoprazole 40 mg tablet,delayed 40 mg PO BID 02/10/19 06/13/22 release quetiapine 200 mg tablet 200 mg PO HS 02/10/19 06/13/22 rivaroxaban 20 mg tablet (Xarelto) 20 mg PO QAM 02/10/19 06/13/22 spironolactone 50 mg tablet 100 mg PO QAM 02/10/19 06/13/22 magnesium oxide 400 mg PO BID 02/20/19 06/13/22 insulin glargine 100 unit/mL (3 15 unit subcut DAILY@2100 12/01/19 06/13/22 mL) subcutaneous pen (Lantus Solostar U-100 Insulin) insulin lispro 100 unit/mL 12 unit subcut TIDM 05/22/20 06/13/22 subcutaneous pen (Humalog KwikPen (U-100) Insulin) 21cen Vit-D Hubbard 400iu Chew 1 tab PO DAILY 02/27/21 06/13/22 montelukast 10 mg tablet 10 mg PO DAILY 02/27/21 06/13/22 polysaccharide iron complex 150 mg 150 mg PO BID 02/27/21 06/13/22 iron capsule (Poly-Iron) Previous Rx's Medication Instructions Recorded albuterol sulfate 90 mcg/actuation 2 puff inhalation Q6H PRN 06/13/22 aerosol inhaler Shortness Of Breath Or Wheezing #18 grams arformoterol 15 mcg/2 mL solution 2 ml inhalation BID #120 mL 06/13/22 for nebulization (Brovana) budesonide 0.5 mg/2 mL suspension 0.5 mg (2 mL) inhalation BID #60 mL 06/13/22 for nebulization ipratropium 0.5 mg-albuterol 3 mg 3 ml inhalation Q8H PRN shortness 06/13/22 (2.5 mg base)/3 mL nebulization of breath or wheezing #180 mL soln roflumilast 500 mcg tablet 500 mcg PO DAILY #30 tabs 06/13/22 (Daliresp) sodium chloride 7 % for 1 inh inhalation BID #240 mL 06/13/22 nebulization revefenacin 175 mcg/3 mL solution 175 mcg (3 mL) inhalation DAILY 06/26/22 for nebulization #90 mL Results & Data (ED) Vital Signs Vital Signs - 24 hr 10/07/22 08:47 10/07/22 08:47 10/07/22 09:00 Temperature 37.0 C Temperature Source Oral Pulse Rate 70 Pulse Rate [Apical] 69 Pulse Rate from SpO2 Sensor Pulse Rhythm Regular Pulse Strength Normal Respiratory Rate 20 22 Respiratory Effort / Characteristics Labored Short of Breath Labored Short of Breath Spontaneous Pursed Lip Short of Breath Respiratory Depth Deep Deep Respiratory Pattern Regular Regular Blood Pressure 132/73 Blood Pressure Mean 92 Blood Pressure Position Sitting Pulse Oximetry 97 97 Oxygen Delivery Method BiPAP Nasal Cannula Oxygen Flow Rate 5 Fraction of Inspired Oxygen Sepsis Recent Fever Within 48 Hours No Sepsis New/Unexplained Change in Mental Status No Sepsis Action Taken by Nursing No Action Required 10/07/22 09:01 10/07/22 09:36 10/07/22 08:52 Temperature Temperature Source Pulse Rate 72 80 71 Pulse Rate [Apical] Pulse Rate from SpO2 Sensor 71 Pulse Rhythm Pulse Strength Respiratory Rate 20 20 18 Respiratory Effort / Characteristics Spontaneous Pursed Lip Short of Breath Non-Labored Spontaneous Respiratory Depth Normal Normal Respiratory Pattern Regular Regular Blood Pressure Blood Pressure Mean Blood Pressure Position Pulse Oximetry 98 97 96 Oxygen Delivery Method Nebulizer Oxygen Flow Rate 2 Fraction of Inspired Oxygen 35 Sepsis Recent Fever Within 48 Hours Sepsis New/Unexplained Change in Mental Status Sepsis Action Taken by Nursing 10/07/22 09:00 10/07/22 09:10 10/07/22 09:20 Temperature Temperature Source Pulse Rate 69 70 76 Pulse Rate [Apical] Pulse Rate from SpO2 Sensor 69 70 76 Pulse Rhythm Pulse Strength Respiratory Rate 17 21 19 Respiratory Effort / Characteristics Respiratory Depth Respiratory Pattern Blood Pressure Blood Pressure Mean Blood Pressure Position Pulse Oximetry 99 100 100 Oxygen Delivery Method Nebulizer Nebulizer Nebulizer Oxygen Flow Rate Fraction of Inspired Oxygen Sepsis Recent Fever Within 48 Hours Sepsis New/Unexplained Change in Mental Status Sepsis Action Taken by Nursing 10/07/22 09:30 10/07/22 09:40 10/07/22 09:50 Temperature Temperature Source Pulse Rate 79 85 83 Pulse Rate [Apical] Pulse Rate from SpO2 Sensor 80 85 83 Pulse Rhythm Pulse Strength Respiratory Rate 17 17 22 Respiratory Effort / Characteristics Respiratory Depth Respiratory Pattern Blood Pressure Blood Pressure Mean Blood Pressure Position Pulse Oximetry 100 100 98 Oxygen Delivery Method Nebulizer Nebulizer Nebulizer Oxygen Flow Rate Fraction of Inspired Oxygen Sepsis Recent Fever Within 48 Hours Sepsis New/Unexplained Change in Mental Status Sepsis Action Taken by Nursing 10/07/22 10:00 10/07/22 10:10 10/07/22 10:20 Temperature Temperature Source Pulse Rate 87 87 85 Pulse Rate [Apical] Pulse Rate from SpO2 Sensor 87 87 85 Pulse Rhythm Pulse Strength Respiratory Rate 21 23 21 Respiratory Effort / Characteristics Respiratory Depth Respiratory Pattern Blood Pressure Blood Pressure Mean Blood Pressure Position Pulse Oximetry 98 97 98 Oxygen Delivery Method Nebulizer Nebulizer Nebulizer Oxygen Flow Rate Fraction of Inspired Oxygen Sepsis Recent Fever Within 48 Hours Sepsis New/Unexplained Change in Mental Status Sepsis Action Taken by Nursing 10/07/22 10:30 10/07/22 11:30 10/07/22 11:04 Temperature Temperature Source Pulse Rate 91 H 92 H Pulse Rate [Apical] 90 Pulse Rate from SpO2 Sensor 90 93 H Pulse Rhythm Pulse Strength Respiratory Rate Respiratory Effort / Characteristics Spontaneous Respiratory Depth Respiratory Pattern Blood Pressure 151/86 H 158/80 H Blood Pressure Mean 107 106 Blood Pressure Position Pulse Oximetry 93 92 91 Oxygen Delivery Method Nebulizer Nasal Cannula BiPAP Oxygen Flow Rate 3 Fraction of Inspired Oxygen Sepsis Recent Fever Within 48 Hours Sepsis New/Unexplained Change in Mental Status Sepsis Action Taken by Nursing 10/07/22 11:30 Temperature Temperature Source Pulse Rate 90 Pulse Rate [Apical] Pulse Rate from SpO2 Sensor 92 H Pulse Rhythm Pulse Strength Respiratory Rate 25 H Respiratory Effort / Characteristics Respiratory Depth Respiratory Pattern Blood Pressure 170/69 H Blood Pressure Mean 102 Blood Pressure Position Pulse Oximetry 91 Oxygen Delivery Method BiPAP Oxygen Flow Rate Fraction of Inspired Oxygen Sepsis Recent Fever Within 48 Hours Sepsis New/Unexplained Change in Mental Status Sepsis Action Taken by Skilled Nursing Medications Current Medication List: was personally reviewed by me Laboratory Data Attestation: I reviewed the patient's lab results. 10/07/22 09:03 10/07/22 09:03 Lab Results 10/07/22 10/07/22 10/07/22 Range/Units 09:03 09:03 09:03 WBC 6.46 (4.8-10.8) K/ul RBC 3.91 L (3.93-5.22) M/uL Hgb 9.3 L (12.0-16.0) g/dl Hct 30.7 L (34.1-44.9) % MCV 78.5 L (80.0-100.0) fL MCH 23.8 L (25.0-34.0) pg MCHC 30.3 L (32.0-36.0) g/dL RDW Std Deviation 54.8 H (36.4-46.3) fL RDW Coeff of Jame 19.6 H (11.5-14.5) % Plt Count 293 (130-400) K/uL MPV 8.5 L (9.4-12.3) fL Immature Gran % (Auto) 0.5 % Neut % (Auto) 62.4 % Lymph % (Auto) 24.5 % [place] % (Auto) 7.1 % Eos % (Auto) 5.0 % Baso % (Auto) 0.5 % Neut # (Auto) 4.04 (1.4-6.5) K/uL Lymph # (Auto) 1.58 (1.2-3.4) K/uL [place] # (Auto) 0.46 (0.24-0.82) K/uL Eos # (Auto) 0.32 (0-0.50) K/uL Baso # (Auto) 0.03 (0-0.2) K/uL Immature Gran # (Auto) 0.03 H (0.00-0.02) K/uL PT 11.1 (9.0-12.0) Seconds INR 1.0 (0.9-1.1) APTT 29.5 (21.0-31.0) Seconds PTT Ratio 1.1 VBG pH (7.36-7.41) VBG pCO2 (38-50) mmHg VBG pO2 mmHg VBG HCO3 mmol/L VBG O2 Saturation % VBG Base Excess mEq/L Sodium 136 (136-145) mmol/L Potassium 4.3 (3.5-5.1) mmol/L Chloride 99 (98-107) mmol/L Carbon Dioxide 35 H (21-32) mmol/L Anion Gap 2 L (3-11) BUN 14 (6-23) mg/dl Creatinine 0.95 (0.6-1.2) mg/dl Est Cr Clr Drug Dosing 48.0 ml/min Est GFR ( Amer) 66.5 ml/min Est GFR (Non-Af Amer) 57.4 ml/min BUN/Creatinine Ratio 14.7 (10-20) Glucose 124 H (70-99(Fasting)) mg/dl Calcium 9.0 (8.5-10.1) mg/dl Magnesium 1.9 (1.7-2.4) mg/dl Total Bilirubin 0.4 (0.2-1.0) mg/dl AST 12 L (13-39) U/L ALT 12 (7-52) U/L Alkaline Phosphatase 92 (34-104) U/L Troponin I High Sens 8.7 (0-14) pg/ml B-Natriuretic Peptide (0-100) pg/ml Total Protein 6.3 (6.0-8.3) gm/dl Albumin 3.5 (3.4-5.0) gm/dl Globulin 2.8 (2.5-4.0) gm/dl Albumin/Globulin Ratio 1.3 (0.9-2) Procalcitonin (0-0.5) ng/ml 10/07/22 10/07/22 10/07/22 Range/Units 09:03 09:03 09:03 WBC (4.8-10.8) K/ul RBC (3.93-5.22) M/uL Hgb (12.0-16.0) g/dl Hct (34.1-44.9) % MCV (80.0-100.0) fL MCH (25.0-34.0) pg MCHC (32.0-36.0) g/dL RDW Std Deviation (36.4-46.3) fL RDW Coeff of Jame (11.5-14.5) % Plt Count (130-400) K/uL MPV (9.4-12.3) fL Immature Gran % (Auto) % Neut % (Auto) % Lymph % (Auto) % [place] % (Auto) % Eos % (Auto) % Baso % (Auto) % Neut # (Auto) (1.4-6.5) K/uL Lymph # (Auto) (1.2-3.4) K/uL [place] # (Auto) (0.24-0.82) K/uL Eos # (Auto) (0-0.50) K/uL Baso # (Auto) (0-0.2) K/uL Immature Gran # (Auto) (0.00-0.02) K/uL PT (9.0-12.0) Seconds INR (0.9-1.1) APTT (21.0-31.0) Seconds PTT Ratio VBG pH 7.38 (7.36-7.41) VBG pCO2 60 H (38-50) mmHg VBG pO2 52 mmHg VBG HCO3 36 mmol/L VBG O2 Saturation 83.8 % VBG Base Excess 8.2 mEq/L Sodium (136-145) mmol/L Potassium (3.5-5.1) mmol/L Chloride (98-107) mmol/L Carbon Dioxide (21-32) mmol/L Anion Gap (3-11) BUN (6-23) mg/dl Creatinine (0.6-1.2) mg/dl Est Cr Clr Drug Dosing ml/min Est GFR ( Amer) ml/min Est GFR (Non-Af Amer) ml/min BUN/Creatinine Ratio (10-20) Glucose (70-99(Fasting)) mg/dl Calcium (8.5-10.1) mg/dl Magnesium (1.7-2.4) mg/dl Total Bilirubin (0.2-1.0) mg/dl AST (13-39) U/L ALT (7-52) U/L Alkaline Phosphatase (34-104) U/L Troponin I High Sens (0-14) pg/ml B-Natriuretic Peptide 31 (0-100) pg/ml Total Protein (6.0-8.3) gm/dl Albumin (3.4-5.0) gm/dl Globulin (2.5-4.0) gm/dl Albumin/Globulin Ratio (0.9-2) Procalcitonin < 0.05 (0-0.5) ng/ml Administered Medications Discontinued Medications Albuterol (Albut/Ipratrop 3mg/0.5mg Neb 3 Ml Vial) Confirm Administered Dose 12 ml .ROUTE .STK-MED ONE Stop: 10/07/22 08:50 Last Admin: 10/07/22 09:00 Dose: Not Given Documented By: ZARINA Albuterol (Albut/Ipratrop 3mg/0.5mg Neb 3 Ml Vial) 12 ml INH ONE STA Stop: 10/07/22 08:53 Last Admin: 10/07/22 09:00 Dose: 12 ml Documented By: ZARINA Albuterol (Albut/Ipratrop 3mg/0.5mg Neb 3 Ml Vial) Confirm Administered Dose 3 ml .ROUTE .STK-MED ONE Stop: 10/07/22 11:29 Last Admin: 10/07/22 11:30 Dose: 3 ml Documented By: ZARINA Magnesium Sulfate/Dextrose (Magnesium Sulfate / D5w) 1 gm in 100 mls @ 200 mls/hr IV Q30M [facility] Stop: 10/07/22 09:53 Last Infusion: 10/07/22 10:34 Dose: 0 mls/hr Documented By: Admin: 10/07/22 10:00 Dose: 200 mls/hr Documented By: Infusion: 10/07/22 09:56 Dose: 0 mls/hr Documented By: Admin: 10/07/22 09:16 Dose: 200 mls/hr Documented By: IAN Insulin Aspart (Insulin Aspart Per Unit) 0 units SC ACHS CHU Stop: 11/06/22 16:29 Last Admin: 10/07/22 13:52 Dose: 14 units Documented By: MICHELLE Co-signed By: PEARL Insulin Aspart (Insulin Aspart Per Unit) Confirm Administered Dose 14 units .ROUTE .STK-MED ONE Stop: 10/07/22 13:55 Last Admin: 10/07/22 13:57 Dose: Not Given Documented By: MICHELLE Methylprednisolone (Methylprednisolone 125 Mg/2 Ml Vial) 125 mg IV NOW STA Stop: 10/07/22 08:53 Last Admin: 10/07/22 09:16 Dose: 125 mg Documented By: IAN Imaging Data Radiologist's Impression: Chest X-Ray 10/07/22 08:52 XR chest 1V portable HISTORY: Dyspnea COMPARISON: Chest 09/19/2022. FINDINGS: The cardiac silhouette remains mildly enlarged. Bibasilar interstitial thickening and a few linear densities persist. The upper lung zones remain clear. No new focal lung consolidations. No evidence for pulmonary edema. No pleural effusions. No pneumothorax. Emphysema again noted. IMPRESSION: 1. No significant change compared to the prior study. 2. Emphysema with bibasilar interstitial thickening persists. 3. Stable mild cardiomegaly. ACT 112: Negative or not required by law. Electronically signed by: Charly Cabrera M.D. 10/07/2022 9:44 AM Discharge Plan Visit Data Chief Complaint: Shortness of Breath/Dyspnea ED Provider: Haja Vilchis Discharge Problem: Acute respiratory failure with hypoxia, Anemia, Acute exacerbation of chronic obstructive pulmonary disease Patient Disposition: Admitted As Inpatient Discharge Instructions Interventions: ED Discharge Assessment Last Done: 10/07/22 12:45
[2022-10-07] MEDS: MAGNESIUM SULFATE / D5W 1 GM/100 ML BAG IV SCH ×2 (09:16→10:00)
[2022-10-07 09:21] LABS: Base Excess VBG 8.2 mEq/L; HCO3 VBG 36 mmol/L; Oxygen Saturation VBG 83.8 %; PCO2 VBG 60 mmHg (38-50); PO2 VBG 52 mmHg; pH VBG 7.38 (7.36-7.41)
[2022-10-07 09:26] LABS: Basophils # (auto) 0.03 K/uL (0-0.2); Basophils % (auto) 0.5 %; Eosinophils # (auto) 0.32 K/uL (0-0.50); Hematocrit (blood only) 30.7 % (34.1-44.9); Hemoglobin 9.3 g/dl (12.0-16.0); Immature Granulocytes # (auto) 0.03 K/uL (0.00-0.02); Immature Granulocytes % (auto) 0.5 %; Lymphocytes # (auto) 1.58 K/uL (1.2-3.4); Lymphocytes % (auto) 24.5 %; Mean Corpuscular Hemoglobin 23.8 pg (25.0-34.0); Mean Corpuscular Hgb Conc 30.3 g/dL (32.0-36.0); Mean Corpuscular Volume 78.5 fL (80.0-100.0); Mean Platelet Volume 8.5 fL (9.4-12.3); Monocytes # (auto) 0.46 K/uL (0.24-0.82); Monocytes % (auto) 7.1 %; Neutrophils # (auto) 4.04 K/uL (1.4-6.5); Neutrophils % (auto) 62.4 %; Platelet Count 293 K/uL (130-400); RDW Coefficient of Variation 19.6 % (11.5-14.5); RDW Standard Deviation 54.8 fL (36.4-46.3); Red Blood Count 3.91 M/uL (3.93-5.22); White Blood Count 6.46 K/ul (4.8-10.8)
[2022-10-07 09:39] LABS: Albumin Globulin Ratio 1.3 (0.9-2); Albumin Level 3.5 gm/dl (3.4-5.0); BUN Creatinine Ratio 14.7 (10-20); Bilirubin,Total 0.4 mg/dl (0.2-1.0); Est GFR (African American) 66.5 ml/min; Est GFR (Non-African American) 57.4 ml/min; Globulin 2.8 gm/dl (2.5-4.0); Magnesium 1.9 mg/dl (1.7-2.4); Potassium 4.3 mmol/L (3.5-5.1); Total Protein 6.3 gm/dl (6.0-8.3)
[2022-10-07 09:45] LABS: Troponin I High Sensitivity 8.7 pg/ml (0-14)
--- NOTE | 2022-10-07 09:45 | XRay Report ---
XR chest 1V portable HISTORY: Dyspnea COMPARISON: Chest 09/19/2022. FINDINGS: The cardiac silhouette remains mildly enlarged. Bibasilar interstitial thickening and a few linear densities persist. The upper lung zones remain clear. No new focal lung consolidations. No ev idence for pulmonary edema. No pleural effusions. No pneumothorax. Emphysema again noted. IMPRESSION: 1. No significant change compared to the prior study. 2. Emphysema with bibasilar interstitial thickening persists. 3. Stable mild cardiomegaly. ACT 112: Negative or not required by law. Electronically signed by: Charly Cabrera M.D. 10/07/2022 9:44 AM
[2022-10-07 09:51] LABS: Partial Thromboplastin Ratio 1.1; Partial Thromboplastin Time 29.5 Seconds (21.0-31.0); Prothrombin Time 11.1 Seconds (9.0-12.0)
[2022-10-07 10:31] LABS: Adenovirus PCR Not Detected (NotDetected); Bordetella parapertussis PCR Not Detected (NotDetected); Bordetella pertussis PCR Not Detected (NotDetected); Chlamydia pneumoniae PCR Not Detected (NotDetected); Coronavirus 229E PCR Not Detected (NotDetected); Coronavirus CoV-2 (COVID19)PCR Not Detected (NotDetected); Coronavirus HKU1 PCR Not Detected (NotDetected); Coronavirus NL63 PCR Not Detected (NotDetected); Coronavirus OC43PCR Not Detected (NotDetected); Human Metapneumovirus PCR Not Detected (NotDetected); Influenza A PCR Not Detected (NotDetected); Influenza B PCR Not Detected (NotDetected); Mycoplasma pneumoniae PCR Not Detected (NotDetected); Parainfluenza Virus 1 PCR Not Detected (NotDetected); Parainfluenza Virus 2 PCR Not Detected (NotDetected); Parainfluenza Virus 3 PCR Not Detected (NotDetected); Parainfluenza Virus 4 PCR Not Detected (NotDetected); Rhinovirus/Enterovirus PCR Not Detected (NotDetected)
[2022-10-07 10:37] LABS: Respiratory Syncytial VirusPCR DETECTED (NotDetected)
--- NOTE | 2022-10-07 11:08 | History & Physical Report ---
Date of Service October 07, 2022 Assessment & Plan (1) Acute respiratory failure with hypoxia: Plan: Acute on chronic COPD exacerbation 2/2 RSV RSV positive on admission Gold class D previously on MWF azithromycin Biro 02/2022: FVC 1.32 50%, FEV1 0.6 332%, FEV1/FVC 47% RSV positive additional antibiotics deferred, recently completed a course of doxycycline this month for a COPD exacerbation VBG compensated chronic respiratory acidosis. OK to try diet and on NC, if worsening on 4 hour recheck --> bipap hsprn otherwise hs Continue budesonide nebulizers Atrovent as needed Flutter valve, incentive spirometry, ambulate as tolerated Patient with chronic hypercarbic respiratory failure, continue PPV nightly Given concurrent COPD with RSV will continue treatment with steroids, patient received 125 mg methylprednisolone in ER, will continue 40 mg 3 times daily and wean as able. No signs of bacterial secondary infection at time of admission Former tobacco use, [id number] smoking history quit 2011 QtP -Initial EKG QT significantly prolonged at 684, poor quality tracing. On recheck <480 Mag 1.9, will optimize to 2.0. Receiving 2 g IV mag CHF Echo 09/2022: EF 65 to 70%, RVSP 41%, RV normal in size and function BNP normal, troponin normal, EKG without acute changes, no chest pain on admission Admitting EKG: Normal sinus rhythm, poor quality tracing, QTC 684 prolonged, QT lengthened VIJAY BiPAP at home nightly Continue qhs DM2 Goal BSG [id number] Continue basal bolus insulin glucose checks AC/at bedtime Home Lantus 15 units, lispro 12 units 3 times daily Basal/bolus calculated based on basal requirements. 15 units daily, CF 55, carb ratio 18 Admitting BSG 124 Pharmacy consulted for additional management/NPH in the setting of steroid use Generalized anxiety Continue mirtazapine 30 nightly, Seroquel 200 nightly. DVT prophylaxis: Anticoagulated Disposition: Medical/surgical CODE STATUS: Full code Diet: Heart healthy, low-salt (2) CHF (congestive heart failure): (3) Chronic respiratory failure with hypoxia: (4) COPD (chronic obstructive pulmonary disease): (5) Diabetes: (6) KATHLEEN (generalized anxiety disorder): (7) Hypothyroid: (8) Major depression, recurrent, full remission: (9) VIJAY (obstructive sleep apnea): (10) Pulmonary embolism: History of Present Illness Primary Care Provider: Dayna Clemons is a 77-year-old female with a past medical history of COPD, chronic respiratory failure, VIJAY, hypothyroidism, PE, A. fib on Xarelto, CHF, QT prolongation, DM on insulin who presents with acute on chronic shortness of breath and wheezing and is found to be RSV positive. She was recently admitted 09/17/2022 - 09/24/2022 for a COPD exacerbation And is seen at the bedside. She reports that she felt well for 1 week after discharge, then started to wheeze again. Her last week has felt significantly more wheezy, with some feeling of being flushed/feverish but no temperature to her knowledge. No nausea/vomiting/diarrhea/constipation. Has felt more short of breath with difficulty breathing. Has not had any edema or leg swelling. Denies sputum production. Medical History: Reviewed Medications: Reviewed Surgical History: Reviewed Allergies: Reviewed Social History: Reviewed Code Status: Full Allergies Allergy/AdvReac Type Severity Reaction Status Date / Time rabies vaccine, duck-embryo Allergy Severe HIVES Verified 06/09/22 12:02 ragweed pollen Allergy Unknown UNKNOWN Verified 06/09/22 12:02 tomato Allergy Unknown HIVES Verified 06/09/22 12:02 Home Medications Medication Instructions Recorded Confirmed Type escitalopram oxalate 10 mg tablet 15 mg PO QAM 02/10/19 06/13/22 History famotidine 20 mg tablet 20 mg PO QAM 02/10/19 06/13/22 History levothyroxine 25 mcg tablet 25 mcg PO QAM 02/10/19 06/13/22 History metformin 500 mg tablet,extended 500 mg PO BID 02/10/19 06/13/22 History release 24 hr metoprolol succinate 25 mg capsule 25 mg PO BID 02/10/19 06/13/22 History sprinkle, ext. release 24 hr mirtazapine 30 mg tablet 30 mg PO HS 02/10/19 06/13/22 History pantoprazole 40 mg tablet,delayed 40 mg PO BID 02/10/19 06/13/22 History release quetiapine 200 mg tablet 200 mg PO HS 02/10/19 06/13/22 History rivaroxaban 20 mg tablet (Xarelto) 20 mg PO QAM 02/10/19 06/13/22 History spironolactone 50 mg tablet 100 mg PO QAM 02/10/19 06/13/22 History magnesium oxide 400 mg PO BID 02/20/19 06/13/22 History insulin glargine 100 unit/mL (3 15 unit subcut DAILY@2100 12/01/19 06/13/22 History mL) subcutaneous pen (Lantus Solostar U-100 Insulin) insulin lispro 100 unit/mL 12 unit subcut TIDM 05/22/20 06/13/22 History subcutaneous pen (Humalog KwikPen (U-100) Insulin) 21cen Vit-D Dawes 400iu Chew 1 tab PO DAILY 02/27/21 06/13/22 History montelukast 10 mg tablet 10 mg PO DAILY 02/27/21 06/13/22 History polysaccharide iron complex 150 mg 150 mg PO BID 02/27/21 06/13/22 History iron capsule (Poly-Iron) albuterol sulfate 90 mcg/actuation 2 puff inhalation Q6H PRN 06/13/22 06/13/22 Rx aerosol inhaler Shortness Of Breath Or Wheezing #18 grams arformoterol 15 mcg/2 mL solution 2 ml inhalation BID #120 mL 06/13/22 06/13/22 Rx for nebulization (Brovana) budesonide 0.5 mg/2 mL suspension 0.5 mg (2 mL) inhalation BID #60 mL 06/13/22 06/13/22 Rx for nebulization ipratropium 0.5 mg-albuterol 3 mg 3 ml inhalation Q8H PRN shortness 06/13/22 06/13/22 Rx (2.5 mg base)/3 mL nebulization of breath or wheezing #180 mL soln roflumilast 500 mcg tablet 500 mcg PO DAILY #30 tabs 06/13/22 06/13/22 Rx (Daliresp) sodium chloride 7 % for 1 inh inhalation BID #240 mL 06/13/22 06/13/22 Rx nebulization revefenacin 175 mcg/3 mL solution 175 mcg (3 mL) inhalation DAILY 06/26/22 Rx for nebulization #90 mL Past Med/Surg History Medical History Acute and chronic respiratory failure with hypoxia Acute on chronic combined systolic (congestive) and diastolic (congestive) heart failure Acute respiratory failure with hypoxia Atelectasis Breast cancer, right breast CHF (congestive heart failure) COPD (chronic obstructive pulmonary disease) COPD exacerbation Diabetes Elevated troponin Endocarditis KATHLEEN (generalized anxiety disorder) GERD (gastroesophageal reflux disease) GI bleed Hypoxia Major depression, recurrent, full remission MSSA (methicillin susceptible Staphylococcus aureus) septicemia Nausea & vomiting Obesity hypoventilation syndrome QT prolongation Septic thrombophlebitis Spinal abscess Syncope Vomiting and diarrhea Surgical History History of lumpectomy Family History Other Coronary heart disease Stroke Social History Smoking Status: Never smoker Second Hand Exposure: No; Hx Alcohol Use: No Hx Substance Use: No Preferred Language: Citizen Of [place] Communication Ability: Effective Chemistry Lab Instructor Required: No Beliefs That Will Affect Care: None marital status: Single Current Living Situation: Alone Current Living Situation Comment: caregiver 5 nights a week, caregiver for 3hrs a day 3 days a week current occupational status: retired How many Children do You have: 0 Feels Safe at Home: Yes Assistive Devices: CPAP, Hospital Bed, Oxygen - Continuous, Scooter/Electric Scooter and Walker Review of Systems Review of Systems: All systems reviewed & are unremarkable except as noted in Subjective Physical Exam Physical Exam: General: A&Ox3. NAD. Cooperative. HEENT: Atraumatic, normocephalic. Vision/heraing intact Pulm: Diffusely wheezy. On BiPAP.. Symmetrical chest rise. No increased work of breathing. No respiratory distress. Cardiac: regular tachycardic, -mrg. Radial pulses intact and symmetrical. Abdominal: Nontender, nondistended, soft. BS present. Ext: warm, dry. no edema Results & Data Results & Data ([facility]) Vital Signs (Past 12 Hours) Vital Signs Temp Pulse Pulse Resp BP Pulse Ox O2 Del Method 10/07/22 10:30 91 H 23 151/86 H 93 Nebulizer 10/07/22 10:20 85 21 98 Nebulizer 10/07/22 10:10 87 23 97 Nebulizer 10/07/22 10:00 87 21 98 Nebulizer 10/07/22 09:50 83 22 98 Nebulizer 10/07/22 09:40 85 17 100 Nebulizer 10/07/22 09:30 79 17 100 Nebulizer 10/07/22 09:20 76 19 100 Nebulizer 10/07/22 09:10 70 21 100 Nebulizer 10/07/22 09:00 69 17 99 Nebulizer 10/07/22 08:52 71 18 96 Nebulizer 10/07/22 09:36 80 20 97 10/07/22 09:01 72 20 98 10/07/22 09:00 69 22 97 Nasal Cannula 10/07/22 08:47 37.0 C 70 20 132/73 97 BiPAP O2 Flow Rate FiO2 10/07/22 10:30 10/07/22 10:20 10/07/22 10:10 10/07/22 10:00 10/07/22 09:50 10/07/22 09:40 10/07/22 09:30 10/07/22 09:20 10/07/22 09:10 10/07/22 09:00 10/07/22 08:52 10/07/22 09:36 2 10/07/22 09:01 35 10/07/22 09:00 5 10/07/22 08:47 PG Care Time/CCT Total # of Minutes Spent Total Time Spent with Patient: Total time spent is greater than 50% in coordination of care (as documented) at patient's floor/unit and/or counseling patient: Coding Level of Care Code 52700 INT INP/OBS CARE 3/75MIN Diagnoses Acute respiratory failure with hypoxia J96.01 CHF (congestive heart failure) I50.9 Chronic respiratory failure with hypoxia J96.11 COPD (chronic obstructive pulmonary disease) J44.9 COPD type: unspecified COPD Diabetes E11.9; Z79.4 Diabetes mellitus type: type 2 Diabetes mellitus vermin exterminator insulin use: with vermin exterminator use Diabetes mellitus complication status: without complication KATHLEEN (generalized anxiety disorder) F41.1 Hypothyroid E03.9 Major depression, recurrent, full remission F33.42 VIJAY (obstructive sleep apnea) G47.33 Pulmonary embolism I26.99 (1) COPD (chronic obstructive pulmonary disease) COPD type: unspecified COPD Qualified Code(s): J44.9 - Chronic obstructive pulmonary disease, unspecified (2) Diabetes Diabetes mellitus type: type 2 Diabetes mellitus vermin exterminator insulin use: with vermin exterminator use Diabetes mellitus complication status: without complication Qualified Code(s): E11.9 - Type 2 diabetes mellitus without complications; Z79.4 - rn long term care (current) use of insulin
[2022-10-07] MEDS ORDERED: PHARMACY GLYCEMIC MGMT CONSULT PRN (13:02)
[2022-10-07] MEDS ORDERED: DEXTROSE 50% 50 ML SYRINGE IV PRN (13:02)
[2022-10-07] MEDS ORDERED: GLUCOSE 40% GEL 15 GM TUBE PO PRN (13:02)
[2022-10-07] MEDS ORDERED: GLUCOSE 10 TAB/TUBE PO PRN (13:02)
[2022-10-07] MEDS ORDERED: GLUCAGON FOR INJ 1 MG VIAL SQ PRN (13:02)
[2022-10-07] MEDS ORDERED: INSULIN ASPART PER UNIT ONE (13:54)
[2022-10-07] MEDS ORDERED: INSULIN ASPART PER UNIT SC SCH ×2 (14:00→16:30)
[2022-10-07] MEDS ORDERED: INSULIN ASPART PER UNIT SC ONE (14:00)
--- NOTE | 2022-10-07 14:17 | Pharmacy Report ---
Pharmacy Glycemic Short Note 2 - Date of Service October 07, 2022 - Glycemic Short BSG Results (Last 24 hours): 10/07/22 10/07/22 09:03 13:09 Glucose 124 H POC Glucose 256 H OUTPATIENT ANTIDIABETIC REGIMEN: * Metformin 500mg PO BID * Lantus 15 units SQ HS * Humalog 12 units TIDM HbA1C: 7.5% (09/17/22) ASSESSMENT: * Patient is a 77 YO female with DM2 well known to the glycemic pharmacy service admitted with a COPD exacerbation. Pharmacy consulted to assist with glycemic management. * BSGs 124-256mg/dL since arrival. Received Solu Medrol 125mg X 1 in the ED, and scheduled on 40mg IV TID to begin tomorrow AM. Heart healthy diet ordered. * Based upon historical admission data (patient receiving Solu Medrol 40mg IV TID), will initiate Lantus per scale 15-20 units BID depending on BSG. Novolog will be initiated with a correction factor of 20mg/dL/unit and carb ratio of 5 unit/gm. PLAN FOR INPATIENT GLYCEMIC CONTROL: * Hold outpatient oral diabetes medications * Basal insulin * Lantus 15-20 units SQ BID * Bolus insulin * NovoLog per scale ACHS or Q6hrs while NPO * Goal Range: Low 110 mg/dL - High 140 mg/dL * Correction Factor: 20 mg/dL/unit * Nutritional / Prandial insulin per carb ratio of 1 unit per 5 grams CHO consumed
--- NOTE | 2022-10-07 14:34 | Electrocardiogram Report ---
Test Reason : Blood Pressure : / mmHG Vent. Rate : 071 BPM Atrial Rate : 071 BPM P-R Int : 176 ms QRS Dur : 154 ms QT Int : 630 ms P-R-T Axes : 070 036 088 degrees QTc Int : 684 ms Poor data quality, interpretation may be adversely affected Normal sinus rhythm When compared with ECG of 17-SEP-2022 01:34, ST now depressed in Lateral leads T wave inversion now evident in Lateral leads QT has lengthened Confirmed by Loyd Lawton ([id number]) on 10/07/2022 2:34:21 PM Referred By: REFERRED SELF Confirmed By:Roel Lawton
--- NOTE | 2022-10-07 14:38 | Electrocardiogram Report ---
Test Reason : Blood Pressure : / mmHG Vent. Rate : 091 BPM Atrial Rate : 091 BPM P-R Int : 168 ms QRS Dur : 076 ms QT Int : 372 ms P-R-T Axes : 075 031 061 degrees QTc Int : 457 ms Normal sinus rhythm Nonspecific ST and T wave abnormality Abnormal ECG When compared with ECG of 07-OCT-2022 08:49, (unconfirmed) ST now depressed in Inferior leads ST no longer depressed in Lateral leads T wave amplitude has increased in Inferior leads T wave inversion no longer evident in Lateral leads QT has shortened Confirmed by Loyd Lawton ([id number]) on 10/07/2022 2:37:53 PM Referred By: REFERRED SELF Confirmed By:Roel Lawton
[2022-10-07] MEDS: ALBUT/IPRATROP 3MG/0.5MG NEB 3 ML VIAL NEB PRN ×3 (15:08→22:44)
[2022-10-07 15:51] LABS: Appearance Urine Clear (Clear); Bilirubin Urine Negative (Negative); Blood Urine Negative (Negative); Color Urine Yellow; Glucose Urine UA 3+ (Negative); Ketones Urine Negative (Negative); Leukocyte Esterase Urine Negative (Negative); Nitrite Urine Negative (Negative); Protein Urine Negative (Negative); Specific Gravity Urine 1.009 (1.000-1.030); Urobilinogen Urine Negative (Negative)
[2022-10-07 17:00] LABS: Base Excess VBG 3.2 mEq/L; HCO3 VBG 31 mmol/L; Oxygen Saturation VBG < 60.0 %; PCO2 VBG 60 mmHg (38-50); PO2 VBG 27 mmHg; pH VBG 7.32 (7.36-7.41)
[2022-10-07] MEDS: INSULIN ASPART PER UNIT SC SCH ×2 (18:02→20:49)
[2022-10-07] MEDS ORDERED: COUGH DROP (SUGAR FREE) LOZ 24 LOZ/1 BOX BUCCAL ONE (18:07)
[2022-10-07] MEDS ORDERED: FORMOTEROL 20 MCG/2 ML VIAL ONE (19:42)
[2022-10-07] MEDS: FORMOTEROL 20 MCG/2 ML VIAL NEB SCH (19:47)
[2022-10-07] MEDS: BUDESONIDE 0.5 MG/2 ML VIAL (PULMICORT) INH SCH (19:47)
[2022-10-07] MEDS: LANTUS PER UNIT CHARGE SQ SCH (20:48)
[2022-10-07] MEDS ORDERED: LANTUS PER UNIT CHARGE SQ SCH (21:00)
[2022-10-07] MEDS: PANTOprazole 40 MG TAB PO SCH (21:53)
[2022-10-07] MEDS: METOPROLOL SUCC 25MG EXT REL TAB PO SCH (21:53)
[2022-10-07] MEDS: MIRTAZAPINE TAB 15 MG TAB PO SCH (21:54)
[2022-10-07] MEDS: MAGNESIUM OXIDE 400 MG TAB PO SCH (21:54)
[2022-10-07] MEDS: QUEtiapine FUMARATE 200 MG TAB PO SCH (21:54)
[2022-10-08] MEDS: INSULIN ASPART PER UNIT SC SCH ×6 (01:21→21:26)
[2022-10-08] MEDS: ALBUT/IPRATROP 3MG/0.5MG NEB 3 ML VIAL NEB PRN ×4 (02:35→22:53)
[2022-10-08] MEDS: LEVOTHYROXINE SODIUM 25 MCG TABLET PO SCH (06:25)
[2022-10-08] MEDS: FORMOTEROL 20 MCG/2 ML VIAL NEB SCH ×2 (07:14→20:25)
[2022-10-08] MEDS: BUDESONIDE 0.5 MG/2 ML VIAL (PULMICORT) INH SCH ×2 (07:14→20:25)
[2022-10-08] MEDS: methylPREDNISolone 40 MG in SYRINGE 0 ML IV SCH ×3 (07:49→21:28)
[2022-10-08] MEDS: PANTOprazole 40 MG TAB PO SCH ×2 (07:49→21:29)
[2022-10-08] MEDS: ROFLUMILAST 500 MCG TAB PO SCH (07:50)
[2022-10-08] MEDS: METOPROLOL SUCC 25MG EXT REL TAB PO SCH ×2 (07:50→21:29)
[2022-10-08] MEDS: MAGNESIUM OXIDE 400 MG TAB PO SCH ×2 (07:50→21:30)
[2022-10-08] MEDS: MONTELUKAST SODIUM 10 MG TABLET PO SCH (07:50)
[2022-10-08] MEDS: SPIRONOLACTONE 100 MG TAB PO SCH (07:51)
[2022-10-08] MEDS: LANTUS PER UNIT CHARGE SQ SCH (09:00)
[2022-10-08] MEDS ORDERED: RIVAROXABAN 20 MG TAB PO SCH (09:00)
[2022-10-08] MEDS ORDERED: methylPREDNISolone 40 MG in SYRINGE 0 ML IV SCH (09:00)
[2022-10-08 11:58] LABS: Hemoglobin 8.8 g/dl (12.0-16.0); Mean Corpuscular Hemoglobin 23.8 pg (25.0-34.0); Mean Corpuscular Hgb Conc 30.3 g/dL (32.0-36.0); Mean Corpuscular Volume 78.4 fL (80.0-100.0); Mean Platelet Volume 8.5 fL (9.4-12.3); Platelet Count 295 K/uL (130-400); RDW Coefficient of Variation 19.8 % (11.5-14.5); RDW Standard Deviation 55.5 fL (36.4-46.3); White Blood Count 11.03 K/ul (4.8-10.8)
[2022-10-08 12:20] LABS: BUN Creatinine Ratio 21.9 (10-20); Basophils # (auto) 0.01 K/uL (0-0.2); Basophils % (auto) 0.1 %; Calcium 9.4 mg/dl (8.5-10.1); Creatinine Clr Calc Pharmacy 43.4 ml/min; Eosinophils # (auto) 0.01 K/uL (0-0.50); Eosinophils % (auto) 0.1 %; Est GFR (African American) 58.9 ml/min; Est GFR (Non-African American) 50.8 ml/min; Immature Granulocytes # (auto) 0.06 K/uL (0.00-0.02); Immature Granulocytes % (auto) 0.5 %; Lymphocytes # (auto) 0.54 K/uL (1.2-3.4); Lymphocytes % (auto) 4.9 %; Magnesium 2.2 mg/dl (1.7-2.4); Monocytes # (auto) 0.18 K/uL (0.24-0.82); Monocytes % (auto) 1.6 %; Neutrophils # (auto) 10.23 K/uL (1.4-6.5); Neutrophils % (auto) 92.8 %; Potassium 5.3 mmol/L (3.5-5.1)
--- NOTE | 2022-10-08 12:41 | Hospitalist Progress Note ---
Date of Service October 08, 2022 Assessment & Plan (1) Acute respiratory failure with hypoxia: Plan: Acute on chronic COPD exacerbation 2/2 RSV. Former tobacco use, [id number] smoking history quit 2011 Gold class D previously on MWF azithromycin COVID/Flu NEGATIVE on admit, however POSITIVE RSV -- maintaining isolation precautions Biro 02/2022: FVC 1.32 50%, FEV1 0.6 332%, FEV1/FVC 47% Recently completed course Doxycycline -- QTC prolonged on admit EKG, improved on repeat. Will obtain additional EKG but start Azithromycin 500mg PO x1, then 250mg x 4 days Continue budesonide nebs Methylprednisolone decreased to BID -- if improving, consider switching to PO prednisone tomorrow Continue incentive spirometer, flutter valve Added mucinex BID Sputum if able to produce -- consider adding hypertonic saline nebs She uses a percussion vest at home -- ordered while inpatient PPV HS - compliant -- continued compliance encouraged Anemia, Microcytic Of note, prior hgbs stable but chronically low over past 1-1.5 years. On Protonix BID,denied NSAID use/aleeve/ibuprofen -- stated hx >20yr ago ulcerations from stress. EGD in system 2018 w/ Grade B reflux esophagitis w/ Case Will also check iron studies for further eval for microcytic anemia with MCV 78.4 - Iron 13, trans % sat LOW 4 --> Schedule Venofer 300mg daily while inpatient check fecal occult for completeness would rec ref outpatient for further workup Hyperkalemia K 5.3 on labs Change to low K diet Holding spironolactone Monitor BMP on repeat QtP Initial EKG QT significantly prolonged at 684, poor quality tracing. On recheck <480 Mag 1.9, 2gm IV --> 2.2 on repeat Repeat EKG CHF Echo 09/2022: EF 65 to 70%, RVSP 41%, RV normal in size and function BNP normal, troponin normal, EKG without acute changes, no chest pain on admission Admitting EKG: Normal sinus rhythm, poor quality tracing, QTC 684 prolonged, QT lengthened Monitor weights/I&O VIJAY BiPAP at home nightly Continue qhs DM2 Goal BSG [id number] Continue basal bolus insulin glucose checks AC/at bedtime Home Lantus 15 units, lispro 12 units 3 times daily Basal/bolus calculated based on basal requirements. 15 units daily, CF 55, carb ratio 18 Admitting BSG 124 Pharmacy consulted for additional management/NPH in the setting of steroid use Generalized anxiety Continue mirtazapine 30 nightly, Seroquel 200 nightly. DVT prophylaxis: Anticoagulated with Xarelto -- reduced dose to 15mg given renal function (2) CHF (congestive heart failure): (3) Chronic respiratory failure with hypoxia: (4) COPD (chronic obstructive pulmonary disease): (5) Diabetes: (6) KATHLEEN (generalized anxiety disorder): (7) Hypothyroid: (8) Major depression, recurrent, full remission: (9) VIJAY (obstructive sleep apnea): (10) Pulmonary embolism: Admission and Anticipated Discharge Date Admission Date: October 07, 2022 Supervising Physician Co-Signing Physician Notes PA Supervision Note: I did not personally see or examine the patient today, but I verified all pichardo points of LOLA Fernandez's assessment and plan with the following exceptions/additions: None Subjective Eval around noon. Getting cleaned up by nursing, who reports patient improved/able to stand/pull up underwear today w/o desat. No further audible wheezing. Patient states her breathing is about the same. Currently does have some wheezing, discussed IV magnesium. Also discussed hgb level. She notes she has some bleeding behind her eyes, but when discussed any blood in stool/urine, she notes she has had darkened stools. Admits to prior c-scope without abnormality, also notes >20 years ago hx bleeding ulcers. She notes this was from stress. Denies NSAID use with ibuprofen or naproxen, and endorses she takes Tylenol as needed for pain control. No fever/chills/sputum production currently. She does endorse she has BiPAP at home and is compliant. She also states her caregiver assists with the vibration vest - will order chest physiotherapy while inpatient. Questions/concerns addressed at this time. Review of Systems Review of Systems: All systems reviewed & are unremarkable except as noted in HPI & below Physical Exam Physical Exam: General: chronically ill appearing female sitting at side of bed, catching her breath/getting dressed, general pallor Resp: diffuse expiratory wheezing posterior >anterior lung max, no crackles, on 2L NC CV: regular rate/rhythm, no m/r/g, no pitting edema/calf tenderness GI:+BS, soft/NT : no heller MSK/Neuro: moves all extremities, no focal deficit Psych: AOx3, cooperative Results & Data Results & Data ([facility]) Vital Signs (Past 12 Hours) Vital Signs Temp Pulse Resp BP Pulse Ox Pulse Ox Pulse Ox 10/08/22 11:34 78 20 90 10/08/22 11:31 90 94 10/08/22 08:00 10/08/22 07:53 36.8 C 86 22 132/72 93 10/08/22 07:14 84 16 97 10/08/22 02:35 81 20 93 Pulse Ox O2 Del Method O2 Flow Rate O2 Flow Rate O2 Flow Rate O2 Flow Rate 10/08/22 11:34 Nasal Cannula 2 10/08/22 11:31 87 L 3 3 3 10/08/22 08:00 Nasal Cannula 3 10/08/22 07:53 Nasal Cannula 3 10/08/22 07:14 Nasal Cannula 3 10/08/22 02:35 Nasal Cannula 3 Laboratory Results 10/08/22 10/08/22 10/08/22 Range/Units 12:39 11:30 11:30 WBC 11.03 H (4.8-10.8) K/ul RBC 3.70 L (3.93-5.22) M/uL Hgb 8.8 L (12.0-16.0) g/dl Hct 29.0 L (34.1-44.9) % MCV 78.4 L (80.0-100.0) fL MCH 23.8 L (25.0-34.0) pg MCHC 30.3 L (32.0-36.0) g/dL RDW Std Deviation 55.5 H (36.4-46.3) fL RDW Coeff of Jame 19.8 H (11.5-14.5) % Plt Count 295 (130-400) K/uL MPV 8.5 L (9.4-12.3) fL Immature Gran % (Auto) 0.5 % Neut % (Auto) 92.8 % Lymph % (Auto) 4.9 % [place] % (Auto) 1.6 % Eos % (Auto) 0.1 % Baso % (Auto) 0.1 % Neut # (Auto) 10.23 H (1.4-6.5) K/uL Lymph # (Auto) 0.54 L (1.2-3.4) K/uL [place] # (Auto) 0.18 L (0.24-0.82) K/uL Eos # (Auto) 0.01 (0-0.50) K/uL Baso # (Auto) 0.01 (0-0.2) K/uL Immature Gran # (Auto) 0.06 H (0.00-0.02) K/uL VBG pH (7.36-7.41) VBG pCO2 (38-50) mmHg VBG pO2 mmHg VBG HCO3 mmol/L VBG O2 Saturation % VBG Base Excess mEq/L Sodium 137 (136-145) mmol/L Potassium 5.3 H D (3.5-5.1) mmol/L Chloride 99 (98-107) mmol/L Carbon Dioxide 34 H (21-32) mmol/L Anion Gap 4 (3-11) BUN 23 (6-23) mg/dl Creatinine 1.05 (0.6-1.2) mg/dl Est Cr Clr Drug Dosing 43.4 ml/min Est GFR ( Amer) 58.9 ml/min Est GFR (Non-Af Amer) 50.8 ml/min BUN/Creatinine Ratio 21.9 H (10-20) Glucose 163 H (70-99(Fasting)) mg/dl POC Glucose 136 H (70-99) mg/dl Calcium 9.4 (8.5-10.1) mg/dl Magnesium 2.2 (1.7-2.4) mg/dl Iron 13 L (35-150) mcg/dl TIBC 322 (250-450) mcg/dl Unsaturated IBC 309 (155-355) mcg/dl Transferrin % Sat 4 L (15-50) % Ferritin 54.2 (8-388) ng/ml Urine Color Urine Appearance (Clear) Urine pH (4.5-7.5) Ur Specific [place] (1.000-1.030) Urine Protein (Negative) Urine Glucose (UA) (Negative) Urine Ketones (Negative) Urine Blood (Negative) Urine Nitrite (Negative) Urine Bilirubin (Negative) Urine Urobilinogen (Negative) Ur Leukocyte Esterase (Negative) 10/08/22 10/08/22 10/08/22 Range/Units 08:34 04:31 01:15 WBC (4.8-10.8) K/ul RBC (3.93-5.22) M/uL Hgb (12.0-16.0) g/dl Hct (34.1-44.9) % MCV (80.0-100.0) fL MCH (25.0-34.0) pg MCHC (32.0-36.0) g/dL RDW Std Deviation (36.4-46.3) fL RDW Coeff of Jame (11.5-14.5) % Plt Count (130-400) K/uL MPV (9.4-12.3) fL Immature Gran % (Auto) % Neut % (Auto) % Lymph % (Auto) % [place] % (Auto) % Eos % (Auto) % Baso % (Auto) % Neut # (Auto) (1.4-6.5) K/uL Lymph # (Auto) (1.2-3.4) K/uL [place] # (Auto) (0.24-0.82) K/uL Eos # (Auto) (0-0.50) K/uL Baso # (Auto) (0-0.2) K/uL Immature Gran # (Auto) (0.00-0.02) K/uL VBG pH (7.36-7.41) VBG pCO2 (38-50) mmHg VBG pO2 mmHg VBG HCO3 mmol/L VBG O2 Saturation % VBG Base Excess mEq/L Sodium (136-145) mmol/L Potassium (3.5-5.1) mmol/L Chloride (98-107) mmol/L Carbon Dioxide (21-32) mmol/L Anion Gap (3-11) BUN (6-23) mg/dl Creatinine (0.6-1.2) mg/dl Est Cr Clr Drug Dosing ml/min Est GFR ( Amer) ml/min Est GFR (Non-Af Amer) ml/min BUN/Creatinine Ratio (10-20) Glucose (70-99(Fasting)) mg/dl POC Glucose 159 H 221 H 206 H (70-99) mg/dl Calcium (8.5-10.1) mg/dl Magnesium (1.7-2.4) mg/dl Iron (35-150) mcg/dl TIBC (250-450) mcg/dl Unsaturated IBC (155-355) mcg/dl Transferrin % Sat (15-50) % Ferritin (8-388) ng/ml Urine Color Urine Appearance (Clear) Urine pH (4.5-7.5) Ur Specific [place] (1.000-1.030) Urine Protein (Negative) Urine Glucose (UA) (Negative) Urine Ketones (Negative) Urine Blood (Negative) Urine Nitrite (Negative) Urine Bilirubin (Negative) Urine Urobilinogen (Negative) Ur Leukocyte Esterase (Negative) 10/07/22 10/07/22 10/07/22 Range/Units Unknown 20:28 16:58 WBC (4.8-10.8) K/ul RBC (3.93-5.22) M/uL Hgb (12.0-16.0) g/dl Hct (34.1-44.9) % MCV (80.0-100.0) fL MCH (25.0-34.0) pg MCHC (32.0-36.0) g/dL RDW Std Deviation (36.4-46.3) fL RDW Coeff of Jame (11.5-14.5) % Plt Count (130-400) K/uL MPV (9.4-12.3) fL Immature Gran % (Auto) % Neut % (Auto) % Lymph % (Auto) % [place] % (Auto) % Eos % (Auto) % Baso % (Auto) % Neut # (Auto) (1.4-6.5) K/uL Lymph # (Auto) (1.2-3.4) K/uL [place] # (Auto) (0.24-0.82) K/uL Eos # (Auto) (0-0.50) K/uL Baso # (Auto) (0-0.2) K/uL Immature Gran # (Auto) (0.00-0.02) K/uL VBG pH (7.36-7.41) VBG pCO2 (38-50) mmHg VBG pO2 mmHg VBG HCO3 mmol/L VBG O2 Saturation % VBG Base Excess mEq/L Sodium (136-145) mmol/L Potassium (3.5-5.1) mmol/L Chloride (98-107) mmol/L Carbon Dioxide (21-32) mmol/L Anion Gap (3-11) BUN (6-23) mg/dl Creatinine (0.6-1.2) mg/dl Est Cr Clr Drug Dosing ml/min Est GFR ( Amer) ml/min Est GFR (Non-Af Amer) ml/min BUN/Creatinine Ratio (10-20) Glucose (70-99(Fasting)) mg/dl POC Glucose 217 H 267 H (70-99) mg/dl Calcium (8.5-10.1) mg/dl Magnesium (1.7-2.4) mg/dl Iron (35-150) mcg/dl TIBC (250-450) mcg/dl Unsaturated IBC (155-355) mcg/dl Transferrin % Sat (15-50) % Ferritin (8-388) ng/ml Urine Color Yellow Urine Appearance Clear (Clear) Urine pH 5.0 (4.5-7.5) Ur Specific [place] 1.009 (1.000-1.030) Urine Protein Negative (Negative) Urine Glucose (UA) 3+ H (Negative) Urine Ketones Negative (Negative) Urine Blood Negative (Negative) Urine Nitrite Negative (Negative) Urine Bilirubin Negative (Negative) Urine Urobilinogen Negative (Negative) Ur Leukocyte Esterase Negative (Negative) 10/07/22 Range/Units 16:41 WBC (4.8-10.8) K/ul RBC (3.93-5.22) M/uL Hgb (12.0-16.0) g/dl Hct (34.1-44.9) % MCV (80.0-100.0) fL MCH (25.0-34.0) pg MCHC (32.0-36.0) g/dL RDW Std Deviation (36.4-46.3) fL RDW Coeff of Jame (11.5-14.5) % Plt Count (130-400) K/uL MPV (9.4-12.3) fL Immature Gran % (Auto) % Neut % (Auto) % Lymph % (Auto) % [place] % (Auto) % Eos % (Auto) % Baso % (Auto) % Neut # (Auto) (1.4-6.5) K/uL Lymph # (Auto) (1.2-3.4) K/uL [place] # (Auto) (0.24-0.82) K/uL Eos # (Auto) (0-0.50) K/uL Baso # (Auto) (0-0.2) K/uL Immature Gran # (Auto) (0.00-0.02) K/uL VBG pH 7.32 L (7.36-7.41) VBG pCO2 60 H (38-50) mmHg VBG pO2 27 mmHg VBG HCO3 31 mmol/L VBG O2 Saturation < 60.0 % VBG Base Excess 3.2 mEq/L Sodium (136-145) mmol/L Potassium (3.5-5.1) mmol/L Chloride (98-107) mmol/L Carbon Dioxide (21-32) mmol/L Anion Gap (3-11) BUN (6-23) mg/dl Creatinine (0.6-1.2) mg/dl Est Cr Clr Drug Dosing ml/min Est GFR ( Amer) ml/min Est GFR (Non-Af Amer) ml/min BUN/Creatinine Ratio (10-20) Glucose (70-99(Fasting)) mg/dl POC Glucose (70-99) mg/dl Calcium (8.5-10.1) mg/dl Magnesium (1.7-2.4) mg/dl Iron (35-150) mcg/dl TIBC (250-450) mcg/dl Unsaturated IBC (155-355) mcg/dl Transferrin % Sat (15-50) % Ferritin (8-388) ng/ml Urine Color Urine Appearance (Clear) Urine pH (4.5-7.5) Ur Specific [place] (1.000-1.030) Urine Protein (Negative) Urine Glucose (UA) (Negative) Urine Ketones (Negative) Urine Blood (Negative) Urine Nitrite (Negative) Urine Bilirubin (Negative) Urine Urobilinogen (Negative) Ur Leukocyte Esterase (Negative) PG Care Time/CCT Total # of Minutes Spent Total Time Spent with Patient: Total time spent is greater than 50% in coordination of care (as documented) at patient's floor/unit and/or counseling patient: Coding Level of Care Code 23865 SUB INP/OBS CARE 3/50MIN Diagnoses Acute respiratory failure with hypoxia J96.01 CHF (congestive heart failure) I50.9 Chronic respiratory failure with hypoxia J96.11 COPD (chronic obstructive pulmonary disease) J44.9 COPD type: unspecified COPD Diabetes E11.9; Z79.4 Diabetes mellitus complication status: without complication Diabetes mellitus snf insulin use: with snf use Diabetes mellitus type: type 2 KATHLEEN (generalized anxiety disorder) F41.1 Hypothyroid E03.9 Major depression, recurrent, full remission F33.42 VIJAY (obstructive sleep apnea) G47.33 Pulmonary embolism I26.99 (1) Diabetes Diabetes mellitus complication status: without complication 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
[2022-10-08] MEDS ORDERED: MAGNESIUM SULFATE / D5W 1 GM/100 ML BAG IV ONE (13:15)
[2022-10-08 14:14] LABS: Ferritin 54.2 ng/ml (8-388)
[2022-10-08] MEDS ORDERED: AZITHROMYCIN 250 MG TAB PO ONE (15:50)
[2022-10-08] MEDS: IRON SUCROSE 300 MG in SODIUM CHLORIDE 0.9% 250 ML IV SCH (16:28)
[2022-10-08] MEDS: SODIUM CHLOR 7% 4 ML NEB NEB SCH (20:32)
[2022-10-08] MEDS ORDERED: LANTUS PER UNIT CHARGE SQ SCH (21:00)
[2022-10-08] MEDS: guaiFENesin 600 MG TABCR PO SCH (21:28)
[2022-10-08] MEDS: MIRTAZAPINE TAB 15 MG TAB PO SCH (21:30)
[2022-10-08] MEDS: QUEtiapine FUMARATE 200 MG TAB PO SCH (21:30)
[2022-10-09] MEDS: ALBUT/IPRATROP 3MG/0.5MG NEB 3 ML VIAL NEB PRN ×3 (02:25→15:07)
[2022-10-09] MEDS: LEVOTHYROXINE SODIUM 25 MCG TABLET PO SCH (05:57)
[2022-10-09] MEDS: SODIUM CHLOR 7% 4 ML NEB NEB SCH ×2 (06:59→19:20)
[2022-10-09] MEDS: BUDESONIDE 0.5 MG/2 ML VIAL (PULMICORT) INH SCH ×2 (07:13→19:19)
[2022-10-09] MEDS: FORMOTEROL 20 MCG/2 ML VIAL NEB SCH ×2 (07:13→19:20)
--- NOTE | 2022-10-09 08:54 | Hospitalist Progress Note ---
Date of Service October 09, 2022 Assessment & Plan (1) Acute respiratory failure with hypoxia: Plan: Acute on chronic COPD exacerbation 2/2 RSV. Former tobacco use, [id number] smoking history quit 2011 Gold class D previously on MWF azithromycin COVID/Flu NEGATIVE on admit, however POSITIVE RSV -- maintaining isolation precautions Biro 02/2022: FVC 1.32 50%, FEV1 0.6 332%, FEV1/FVC 47% Recently completed course Doxycycline -- QTC prolonged on admit EKG, improved on repeat. Azithromycin for COPD exacerbation Budesonide nebs, hypertonic saline BID, mucinex, incentive spirometer, flutter valve, chest PT Sputum cx if able to produce Methylprednisolone decreased to BID, switched to Prednisone PO -- plan 60mg for tomorrow, decrease by 10mg Q2D to complete taper PPV HS - compliant -- continued compliance encouraged (2) Anemia: Plan: Anemia, Microcytic Of note, prior hgbs stable but chronically low over past 1-1.5 years. On Protonix BID,denied NSAID use/aleeve/ibuprofen -- stated hx >20yr ago ulcerations from stress. EGD in system 2018 w/ Grade B reflux esophagitis w/ Case Iron studies w/ iron 13, trans % sat LOW 4--> Schedule Venofer 300mg daily while inpatient check fecal occult for completeness -- not able to collect sample from overnight but reported episode of MELENA in BM overnight however hgb 8.8--> 9.5 on labs Will hold further Xarelto, got reduced dose 15mg this AM based on CrCl <50 yesterday GI consulted -- rec to continue conservative treatment with PPI BID and will need outpatient follow up. poor candidate for inpatient scope Monitor TSH/CBC in AM (3) Atrial fibrillation: Plan: hx paroxysmal afib, given EKG NSR on admit On xarelto, reduced dose for renal function yesterday, placed on hold for AM given melena in stool overnight, fecal occult ordered keep mag ~2, K~4 check TSH in AM given anemia as well (4) Hypothyroid: Plan: On synthoid 25mcg daily Will check w/ AM labs to ensure stable given anemia/afib adjustments as needed (5) CHF (congestive heart failure): Plan: CHF Echo 09/2022: EF 65 to 70%, RVSP 41%, RV normal in size and function BNP normal, troponin normal, EKG without acute changes, no chest pain on admission Admitting EKG: Normal sinus rhythm, poor quality tracing, QTC 684 prolonged, QT lengthened (improved on repeat EKG) Monitor weights/I&O (6) VIJAY (obstructive sleep apnea): Plan: PPV at home nightly Continue qhs (7) Diabetes: Plan: DM2 - A1c 7.5 Goal BSG [id number] Continue basal bolus insulin glucose checks AC/at bedtime Home Lantus 15 units, lispro 12 units 3 times daily Basal/bolus calculated based on basal requirements. 15 units daily, CF 55, carb ratio 18 Pharmacy consulted for additional management/NPH in the setting of steroid use (8) Hyperkalemia: Plan: K 5.3 on labs 10/09 Change to low K diet Held spironolactone --> K improved on AM labs BP stable, will plan to resume spironolactone for tomorrow (9) KATHLEEN (generalized anxiety disorder): Plan: Continue mirtazapine 30 nightly, Seroquel 200 nightly. (10) Acute exacerbation of chronic obstructive pulmonary disease: Plan: as above (11) Acute on chronic respiratory failure with hypoxia and hypercapnia: (12) Chronic respiratory failure with hypoxia: (13) COPD (chronic obstructive pulmonary disease): (14) Major depression, recurrent, full remission: (15) Pulmonary embolism: Plan: Will need to inquire more about such history/timing vs whether her xarelto for afib alone DVT prophylaxis: Anticoagulated with Xarelto -- reduced dose to 15mg given renal function but will hold for AM given melena Admission and Anticipated Discharge Date Admission Date: October 07, 2022 Supervising Physician Co-Signing Physician Notes LOLA Supervision Note: I did not personally see or examine the patient today, but I verified all pichardo points of LOLA Fernandez's assessment and plan with the following exceptions/additions: None Subjective Eval this morning, states she believes her breathing is slightly improved Issues with increased respiratory distress last evening while awaiting her scheduled nebs due to delay with RT, improved since scheduled. +Cough, no sputum production. Wheezing about the same, switching to prednisone but 60mg and will plan for slow taper to prevent rebound. Reports good appetitie, moving her bowels. No increased LE edema since holding her spironolactone. States no issues w/ moving her bowels -- actually had mixed stool/urine reported overnight black in color. Discussed GI consultation -- may need to treat with medications and then have outpt f/u as hgb levels have been stable without ashley bleeding. No fever/chills, chest pain (except for from coughing), no abdominal pain, nausea or vomiting. Review of Systems Review of Systems: All systems reviewed & are unremarkable except as noted in HPI & below Physical Exam Physical Exam: General: chronically ill appearing female sitting up in bed, no acute distress. general pallor Resp: decreased posterior lung field wheezing, on 3L NC CV: regular rate/rhythm, no m/r/g, no pitting edema/calf tenderness GI:+BS, soft/NT : no heller MSK/Neuro: moves all extremities, no focal deficit Psych: AOx3, cooperative Results & Data Results & Data ([facility]) Vital Signs (Past 12 Hours) Vital Signs Temp Pulse Pulse Resp BP Pulse Ox O2 Del Method 10/09/22 08:03 36.7 C 67 19 117/66 92 Nasal Cannula 10/09/22 07:00 65 18 92 Nasal Cannula 10/09/22 02:25 71 20 97 Nasal Cannula 10/09/22 02:58 71 25 H 97 10/08/22 23:11 36.5 C 70 22 147/73 H 94 Nasal Cannula 10/08/22 22:53 71 20 94 Nasal Cannula O2 Flow Rate 10/09/22 08:03 2 10/09/22 07:00 2 10/09/22 02:25 4 10/09/22 02:58 4 10/08/22 23:11 5 10/08/22 22:53 5 Laboratory Results 10/09/22 10/09/22 10/09/22 Range/Units 17:22 17:05 17:04 WBC (4.8-10.8) K/ul RBC (4.20-5.40) M/uL Hgb (12.0-16.0) g/dl Hct (37.0-47.0) % MCV (80.0-100.0) fL MCH (25.0-34.0) pg MCHC (32.0-36.0) g/dL RDW Std Deviation (36.4-46.3) fL RDW Coeff of Jame (11.5-14.5) % Plt Count (130-400) K/uL MPV (9.4-12.4) fL Immature Gran % (Auto) % Neut % (Auto) % Lymph % (Auto) % [place] % (Auto) % Eos % (Auto) % Baso % (Auto) % Neut # (Auto) (1.40-6.50) K/uL Lymph # (Auto) (1.2-3.4) K/uL [place] # (Auto) (0.11-0.59) K/uL Eos # (Auto) (0-0.50) K/uL Baso # (Auto) (0-0.2) K/uL Immature Gran # (Auto) (0.01-0.20) K/uL Absolute Nucleated RBC (0-0.12) K/uL Nucleated RBC % (auto) % Polychromasia Sodium (136-145) mmol/L Potassium (3.5-5.1) mmol/L Chloride (98-107) mmol/L Carbon Dioxide (21-32) mmol/L Anion Gap (3-11) BUN (6-23) mg/dl Creatinine (0.6-1.2) mg/dl Est Cr Clr Drug Dosing ml/min Est GFR ( Amer) ml/min Est GFR (Non-Af Amer) ml/min BUN/Creatinine Ratio (10-20) Glucose (70-99(Fasting)) mg/dl POC Glucose 77 51 L* 55 L* (70-99) mg/dl Calcium (8.5-10.1) mg/dl Magnesium (1.7-2.4) mg/dl Total Bilirubin (0.2-1.0) mg/dl AST (13-39) U/L ALT (7-52) U/L Alkaline Phosphatase (34-104) U/L Total Protein (6.0-8.3) gm/dl Albumin (3.4-5.0) gm/dl Globulin (2.5-4.0) gm/dl Albumin/Globulin Ratio (0.9-2) Vitamin B12 (180-914) pg/ml Folate (>5.38) ng/ml 10/09/22 10/09/22 10/09/22 Range/Units 11:54 11:38 11:38 WBC (4.8-10.8) K/ul RBC (4.20-5.40) M/uL Hgb (12.0-16.0) g/dl Hct (37.0-47.0) % MCV (80.0-100.0) fL MCH (25.0-34.0) pg MCHC (32.0-36.0) g/dL RDW Std Deviation (36.4-46.3) fL RDW Coeff of Jame (11.5-14.5) % Plt Count (130-400) K/uL MPV (9.4-12.4) fL Immature Gran % (Auto) % Neut % (Auto) % Lymph % (Auto) % [place] % (Auto) % Eos % (Auto) % Baso % (Auto) % Neut # (Auto) (1.40-6.50) K/uL Lymph # (Auto) (1.2-3.4) K/uL [place] # (Auto) (0.11-0.59) K/uL Eos # (Auto) (0-0.50) K/uL Baso # (Auto) (0-0.2) K/uL Immature Gran # (Auto) (0.01-0.20) K/uL Absolute Nucleated RBC (0-0.12) K/uL Nucleated RBC % (auto) % Polychromasia Sodium 139 (136-145) mmol/L Potassium 4.6 (3.5-5.1) mmol/L Chloride 100 (98-107) mmol/L Carbon Dioxide 35 H (21-32) mmol/L Anion Gap 4 (3-11) BUN 25 H (6-23) mg/dl Creatinine 0.86 (0.6-1.2) mg/dl Est Cr Clr Drug Dosing 53.0 ml/min Est GFR ( Amer) 75.0 ml/min Est GFR (Non-Af Amer) 64.7 ml/min BUN/Creatinine Ratio 29.1 H (10-20) Glucose 92 (70-99(Fasting)) mg/dl POC Glucose 110 H (70-99) mg/dl Calcium 9.3 (8.5-10.1) mg/dl Magnesium 2.2 (1.7-2.4) mg/dl Total Bilirubin 0.3 (0.2-1.0) mg/dl AST 13 (13-39) U/L ALT 12 (7-52) U/L Alkaline Phosphatase 92 (34-104) U/L Total Protein 6.3 (6.0-8.3) gm/dl Albumin 3.7 (3.4-5.0) gm/dl Globulin 2.6 (2.5-4.0) gm/dl Albumin/Globulin Ratio 1.4 (0.9-2) Vitamin B12 318 (180-914) pg/ml Folate 6.42 (>5.38) ng/ml 10/09/22 10/09/22 10/08/22 Range/Units 11:38 08:21 20:35 WBC 12.92 H (4.8-10.8) K/ul RBC 3.91 L (4.20-5.40) M/uL Hgb 9.5 L (12.0-16.0) g/dl Hct 31.6 L (37.0-47.0) % MCV 80.8 (80.0-100.0) fL MCH 24.3 L (25.0-34.0) pg MCHC 30.1 L (32.0-36.0) g/dL RDW Std Deviation 57.4 H (36.4-46.3) fL RDW Coeff of Jame 19.8 H (11.5-14.5) % Plt Count 342 (130-400) K/uL MPV 8.5 L (9.4-12.4) fL Immature Gran % (Auto) 1.2 % Neut % (Auto) 90.3 % Lymph % (Auto) 4.6 % [place] % (Auto) 3.7 % Eos % (Auto) 0.0 % Baso % (Auto) 0.2 % Neut # (Auto) 11.68 H (1.40-6.50) K/uL Lymph # (Auto) 0.59 L (1.2-3.4) K/uL [place] # (Auto) 0.48 (0.11-0.59) K/uL Eos # (Auto) 0.00 (0-0.50) K/uL Baso # (Auto) 0.02 (0-0.2) K/uL Immature Gran # (Auto) 0.15 (0.01-0.20) K/uL Absolute Nucleated RBC 0.02 (0-0.12) K/uL Nucleated RBC % (auto) 0.2 % Polychromasia 1+ Sodium (136-145) mmol/L Potassium (3.5-5.1) mmol/L Chloride (98-107) mmol/L Carbon Dioxide (21-32) mmol/L Anion Gap (3-11) BUN (6-23) mg/dl Creatinine (0.6-1.2) mg/dl Est Cr Clr Drug Dosing ml/min Est GFR ( Amer) ml/min Est GFR (Non-Af Amer) ml/min BUN/Creatinine Ratio (10-20) Glucose (70-99(Fasting)) mg/dl POC Glucose 228 H 284 H (70-99) mg/dl Calcium (8.5-10.1) mg/dl Magnesium (1.7-2.4) mg/dl Total Bilirubin (0.2-1.0) mg/dl AST (13-39) U/L ALT (7-52) U/L Alkaline Phosphatase (34-104) U/L Total Protein (6.0-8.3) gm/dl Albumin (3.4-5.0) gm/dl Globulin (2.5-4.0) gm/dl Albumin/Globulin Ratio (0.9-2) Vitamin B12 (180-914) pg/ml Folate (>5.38) ng/ml PG Care Time/CCT Total # of Minutes Spent Total Time Spent with Patient: Total time spent is greater than 50% in coordination of care (as documented) at patient's floor/unit and/or counseling patient: Coding Level of Care Code 36342 SUB INP/OBS CARE 3/50MIN Diagnoses Acute respiratory failure with hypoxia J96.01 Anemia D64.9 Anemia type: unspecified type Atrial fibrillation I48.91 Hypothyroid E03.9 CHF (congestive heart failure) I50.9 VIJAY (obstructive sleep apnea) G47.33 Diabetes E11.9; Z79.4 Diabetes mellitus complication status: without complication Diabetes mellitus assisted insulin use: with 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 driver 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 Diabetes mellitus type: type 2 Hyperkalemia E87.5 KATHLEEN (generalized anxiety disorder) F41.1 Acute exacerbation of chronic obstructive pulmonary disease J44.1 Acute on chronic respiratory failure with hypoxia and hypercapnia J96.21; J96.22 Chronic respiratory failure with hypoxia J96.11 COPD (chronic obstructive pulmonary disease) J44.9 COPD type: unspecified COPD Major depression, recurrent, full remission F33.42 Pulmonary embolism I26.99 (1) Diabetes Diabetes mellitus complication status: without complication Diabetes mellitus 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 driver insulin use: with 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 driver use Diabetes mellitus type: type 2 Qualified Code(s): E11.9 - Type 2 diabetes mellitus without complications; Z79.4 - senior care (current) use of insulin (2) Anemia Anemia type: unspecified type Qualified Code(s): D64.9 - Anemia, unspecified (3) COPD (chronic obstructive pulmonary disease) COPD type: unspecified COPD Qualified Code(s): J44.9 - Chronic obstructive pulmonary disease, unspecified
[2022-10-09] MEDS ORDERED: LANTUS PER UNIT CHARGE SQ ONE ×2 (09:00→21:00)
[2022-10-09] MEDS ORDERED: RIVAROXABAN 15 MG TAB PO SCH (09:00)
[2022-10-09] MEDS: INSULIN ASPART PER UNIT SC SCH ×4 (09:03→21:01)
--- NOTE | 2022-10-09 09:06 | Electrocardiogram Report ---
Test Reason : Blood Pressure : / mmHG Vent. Rate : 072 BPM Atrial Rate : 072 BPM P-R Int : 168 ms QRS Dur : 070 ms QT Int : 392 ms P-R-T Axes : 052 003 057 degrees QTc Int : 429 ms Normal sinus rhythm When compared with ECG of 07-OCT-2022 11:21, No significant change was found Confirmed by Loyd Lawton [id number]) on 10/09/2022 9:05:34 AM Referred By: REFERRED SELF Confirmed By:Roel Lawton
[2022-10-09] MEDS: AZITHROMYCIN 250 MG TAB PO SCH (09:08)
[2022-10-09] MEDS: guaiFENesin 600 MG TABCR PO SCH ×2 (09:08→21:03)
[2022-10-09] MEDS: MONTELUKAST SODIUM 10 MG TABLET PO SCH (09:09)
[2022-10-09] MEDS: MAGNESIUM OXIDE 400 MG TAB PO SCH ×2 (09:09→21:05)
[2022-10-09] MEDS: ROFLUMILAST 500 MCG TAB PO SCH (09:10)
[2022-10-09] MEDS: METOPROLOL SUCC 25MG EXT REL TAB PO SCH ×2 (09:10→21:06)
[2022-10-09] MEDS: PANTOprazole 40 MG TAB PO SCH ×2 (09:11→21:05)
[2022-10-09] MEDS: methylPREDNISolone 40 MG in SYRINGE 0 ML IV SCH (09:21)
--- NOTE | 2022-10-09 10:08 | Gastrointestinal Consultation ---
Date of Consultation October 09, 2022 Assessment & Plan (1) Anemia: Discussed case with Dr. Villagomez who advised on plan. I suspect that her dark stools are from her oral iron. her anemia has been ongoing for the past 12-18 months and is stable comparably to this period. Do not suspect GI bleeding at this time especially since stools are unchanged from her baseline and she has normal BUN/Creatinine. She tells me that she would not want an EGD at this time and she would be a poor candidate for this at this time anyway given her COPD/respiratory failure/positive RSV. Can continue to monitor H/H. continue protonix 40mg bid. Patient is planned for Venofer while inpatient for the low iron. Can consider outpatient work up once acute issues have resolved. Supervising Physician Co-Signing Physician Notes Agree with CHARLENE Pierce as above Abd: Soft, NT, ND, +BS Continue current therapy and supportive care No plans for invasive workup secondary to acute respiratory issues Consider outpatient workup, however, patient refuses at present History of Present Illness Reason for Consultation: melena/anemia Requesting Physician: Sylvia Fernandez PA-C Attending Physician: Mary Armstrong MD History of Present Illness Patient is a 77 year old female with a past medical history of COPD, chronic respiratory failure, VIJAY, hypothyroidism, PE, A. fib on Xarelto(last dose 10/09/22 this AM), CHF, QT prolongation, DM on insulin who presented to ED with shortness of breath and admitted with acute on chronic respiratory failure and RSV positive. She was recently admitted 09/17/2022 - 09/24/2022 for a COPD exacerbation. Apparently last evening she had a dark stool and has had some anemia in the 8-9 range over the past 12-18 months and consult was placed for GI. She does use oral iron at home and tells me that stools are always this way. she typically has 1-3 bowel movements daily that are dark. no nsaid use. she has some abdominal pain but tells me she feels this is from coughing. At home she typically uses protonix 40mg bid and famotidine 20mg daily which controls reflux. rest of GI ros are unremarkable. EGD 2017 LA-B esophagitis. 10/08/22 hgb 8.8 (previously 9.3). Allergies Allergy/AdvReac Type Severity Reaction Status Date / Time rabies vaccine, duck-embryo Allergy Severe HIVES Verified 06/09/22 12:02 ragweed pollen Allergy Unknown UNKNOWN Verified 06/09/22 12:02 tomato Allergy Unknown HIVES Verified 06/09/22 12:02 Home Medications Medication Instructions Recorded Confirmed Type escitalopram oxalate 10 mg tablet 15 mg PO QAM 02/10/19 10/07/22 History famotidine 20 mg tablet 20 mg PO QAM 02/10/19 10/07/22 History levothyroxine 25 mcg tablet 25 mcg PO QA 02/10/19 10/07/22 History metformin 500 mg tablet,extended 500 mg PO BID 02/10/19 10/07/22 History release 24 hr metoprolol succinate 25 mg capsule 25 mg PO BID 02/10/19 10/07/22 History sprinkle, ext. release 24 hr mirtazapine 30 mg tablet 30 mg PO 02/10/19 10/07/22 History pantoprazole 40 mg tablet,delayed 40 mg PO BID 02/10/19 10/07/22 History release quetiapine 200 mg tablet 200 mg PO 02/10/19 10/07/22 History rivaroxaban 20 mg tablet (Xarelto) 20 mg PO [facility] 02/10/19 10/07/22 History spironolactone 50 mg tablet 100 mg PO [facility] 02/10/19 10/07/22 History magnesium oxide 400 mg PO BID 02/20/19 10/07/22 History insulin glargine 100 unit/mL (3 15 unit subcut DAILY@2100 12/01/19 10/07/22 History mL) subcutaneous pen (Lantus Solostar U-100 Insulin) insulin lispro 100 unit/mL 12 unit subcut TIDM 05/22/20 10/07/22 History subcutaneous pen (Humalog KwikPen (U-100) Insulin) 21cen Vit-D [place] 400iu Chew 1 tab PO DAILY 02/27/21 10/07/22 History montelukast 10 mg tablet 10 mg PO HS 02/27/21 10/07/22 History polysaccharide iron complex 150 mg 150 mg PO BID 02/27/21 10/07/22 History iron capsule (Poly-Iron) albuterol sulfate 90 mcg/actuation 2 puff inhalation Q6H PRN 06/13/22 10/07/22 Rx aerosol inhaler Shortness Of Breath Or Wheezing #18 grams arformoterol 15 mcg/2 mL solution 2 ml inhalation BID #120 mL 06/13/22 10/07/22 Rx for nebulization (Brovana) budesonide 0.5 mg/2 mL suspension 0.5 mg (2 mL) inhalation BID #60 mL 06/13/22 10/07/22 Rx for nebulization ipratropium 0.5 mg-albuterol 3 mg 3 ml inhalation Q8H PRN shortness 06/13/22 10/07/22 Rx (2.5 mg base)/3 mL nebulization of breath or wheezing #180 mL soln roflumilast 500 mcg tablet 500 mcg PO DAILY #30 tabs 06/13/22 10/07/22 Rx (Daliresp) sodium chloride 7 % for 1 inh inhalation BID #240 mL 06/13/22 10/07/22 Rx nebulization revefenacin 175 mcg/3 mL solution 175 mcg (3 mL) inhalation DAILY 06/26/22 Rx for nebulization #90 mL azithromycin 250 mg tablet 250 mg PO [id number] 10/07/22 10/07/22 History cholecalciferol (vitamin D3) 10 10 mcg PO DAILY 10/07/22 10/07/22 History mcg (400 unit) chewable tablet fluticasone propionate 50 50 mcg intranasal DAILY 10/07/22 10/07/22 History mcg/actuation nasal spray,suspension theophylline 400 mg 400 mg PO DAILY 10/07/22 10/07/22 History capsule,extended release 24 hr (Rohit-24) tiotropium bromide 18 mcg capsule 18 mcg inhalation DAILY 10/07/22 10/07/22 History with inhalation device (Spiriva with HandiHaler) Patient History Medical History Acute and chronic respiratory failure with hypoxia Acute on chronic combined systolic (congestive) and diastolic (congestive) heart failure Acute respiratory failure with hypoxia Atelectasis Breast cancer, right breast CHF (congestive heart failure) COPD (chronic obstructive pulmonary disease) COPD exacerbation Diabetes Elevated troponin Endocarditis KATHLEEN (generalized anxiety disorder) GERD (gastroesophageal reflux disease) GI bleed Hypoxia Major depression, recurrent, full remission MSSA (methicillin susceptible Staphylococcus aureus) septicemia Nausea & vomiting Obesity hypoventilation syndrome QT prolongation Septic thrombophlebitis Spinal abscess Syncope Vomiting and diarrhea Surgical History History of lumpectomy Family History Other Coronary heart disease Stroke Social History Smoking Status: Never smoker Second Hand Exposure: No; Hx Alcohol Use: No Hx Substance Use: No Preferred Language: Sammarinese Communication Ability: Effective Principal Java Software Engineer Required: No Beliefs That Will Affect Care: None marital status: Single Current Living Situation: Alone Current Living Situation Comment: caregiver 5 nights a week, caregiver for 3hrs a day 3 days a week current occupational status: retired How many Children do You have: 0 Other Information That Helps Us Care for You: No Feels Safe at Home: Yes Safety Concerns: Feels Safe At This Time Assistive Devices: BiPap, CPAP, Nebulizer, Oxygen - Continuous, Scooter/Electric Scooter, Walker and Other Review of Systems Review of Systems: All systems reviewed & are unremarkable except as noted in HPI & below Physical Exam Constitutional: WD/WN, vitals as above Respiratory: on O2, mild labored breathing, wheezes noted Cardiovascular: RRR, no murmur, no edema Gastrointestinal (Abdomen): normal bowel sounds, soft, nontender, no hepatosplenomegaly Skin: no rashes, warm and dry Psychiatric: Orientation: alert and oriented x 3 Affect: euthymic affect Results & Data ([facility]) Vital Signs (Past 12 Hours) Vital Signs Temp Pulse Pulse Resp BP Pulse Ox O2 Del Method 10/09/22 09:00 Nasal Cannula 10/09/22 08:03 36.7 C 67 19 117/66 92 Nasal Cannula 10/09/22 07:00 65 18 92 Nasal Cannula 10/09/22 02:25 71 20 97 Nasal Cannula 10/09/22 02:58 71 25 H 97 10/08/22 23:11 36.5 C 70 22 147/73 H 94 Nasal Cannula 10/08/22 22:53 71 20 94 Nasal Cannula O2 Flow Rate 10/09/22 09:00 3 10/09/22 08:03 2 10/09/22 07:00 2 01/26/23 02:25 4 10/09/22 02:58 4 10/08/22 23:11 5 10/08/22 22:53 5 PG Care Time/CCT Total # of Minutes Spent Total Time Spent with Patient: Total time spent is greater than 50% in coordination of care (as documented) at patient's floor/unit and/or counseling patient: Coding Level of Care Code 83416 INT INP/OBS CARE 2/55MIN Diagnoses Anemia D64.9 Anemia type: unspecified type Time Spent (min) 60 (1) Anemia Anemia type: unspecified type Qualified Code(s): D64.9 - Anemia, unspecified
[2022-10-09] MEDS ORDERED: predniSONE 10 MG TABLET PO ONE (10:15)
[2022-10-09 12:24] LABS: Hematocrit (blood only) 31.6 % (37.0-47.0); Hemoglobin 9.5 g/dl (12.0-16.0); Mean Corpuscular Hemoglobin 24.3 pg (25.0-34.0); Mean Corpuscular Hgb Conc 30.1 g/dL (32.0-36.0); Mean Corpuscular Volume 80.8 fL (80.0-100.0); Mean Platelet Volume 8.5 fL (9.4-12.4); Nucleated RBC # (auto) 0.02 K/uL (0-0.12); Nucleated RBC % (auto) 0.2 %; Platelet Count 342 K/uL (130-400); RDW Coefficient of Variation 19.8 % (11.5-14.5); RDW Standard Deviation 57.4 fL (36.4-46.3); Red Blood Count 3.91 M/uL (4.20-5.40); White Blood Count 12.92 K/ul (4.8-10.8)
[2022-10-09 12:46] LABS: Albumin Globulin Ratio 1.4 (0.9-2); Albumin Level 3.7 gm/dl (3.4-5.0); BUN Creatinine Ratio 29.1 (10-20); Bilirubin,Total 0.3 mg/dl (0.2-1.0); Calcium 9.3 mg/dl (8.5-10.1); Est GFR (Non-African American) 64.7 ml/min; Globulin 2.6 gm/dl (2.5-4.0); Magnesium 2.2 mg/dl (1.7-2.4); Potassium 4.6 mmol/L (3.5-5.1); Total Protein 6.3 gm/dl (6.0-8.3)
[2022-10-09 13:11] LABS: Basophils # (auto) 0.02 K/uL (0-0.2); Basophils % (auto) 0.2 %; Immature Granulocytes # (auto) 0.15 K/uL (0.01-0.20); Immature Granulocytes % (auto) 1.2 %; Lymphocytes # (auto) 0.59 K/uL (1.2-3.4); Lymphocytes % (auto) 4.6 %; Monocytes # (auto) 0.48 K/uL (0.11-0.59); Monocytes % (auto) 3.7 %; Neutrophils # (auto) 11.68 K/uL (1.40-6.50); Neutrophils % (auto) 90.3 %; Polychromasia 1+
--- NOTE | 2022-10-09 14:10 | Pharmacy Report ---
Pharmacy Glycemic Short Note 2 - Date of Service October 09, 2022 - Glycemic Short BSG Results (Last 24 hours): 10/08/22 10/08/22 10/09/22 16:54 20:35 08:21 Glucose POC Glucose 205 H 284 H 228 H 10/09/22 10/09/22 11:38 11:54 Glucose 92 POC Glucose 110 H OUTPATIENT ANTIDIABETIC REGIMEN: * Metformin 500mg PO BID * Lantus 15 units SQ HS * Humalog 12 units TIDM HbA1C: 7.5% (09/17/22) ASSESSMENT: 10/09/22 * Patient's BSGs yesterday were [phone] mg/dL. Patient received 96 units of insulin (30 units of basal and 66 units of bolus). * Fasting BSG today is 228-110 mg/dL. * Patient was on Solu-Medrol 40 mg IV TID which was transitioned to Solu-Medrol 40 mg IV x 1 with prednisone 20 mg PO x 1 on 10/09/22. Patient will then be on prednisone 60 mg daily starting on 10/10/22. * Due to fasting BSG, give Lantus 20 units this AM and 10 units this PM (total of 30 units still). This is above patient's home dose of 15 units HS, but patient still has significant steroid use. Expect fasting to not be as elevated tomorrow due to no PM steroid use. Re-evaluate basal tomorrow. * Continue Novolog since steroids decreased. BASELINE * Patient is a 77 YO female with DM2 well known to the glycemic pharmacy service admitted with a COPD exacerbation. Pharmacy consulted to assist with glycemic management. * BSGs 124-256mg/dL since arrival. Received Solu Medrol 125mg X 1 in the ED, and scheduled on 40mg IV TID to begin tomorrow AM. Heart healthy diet ordered. * Based upon historical admission data (patient receiving Solu Medrol 40mg IV TID), will initiate Lantus per scale 15-20 units BID depending on BSG. Novolog will be initiated with a correction factor of 20mg/dL/unit and carb ratio of 5 unit/gm. PLAN FOR INPATIENT GLYCEMIC CONTROL: * Hold outpatient oral diabetes medications * Basal insulin * Lantus 20 units SQ x 1 then 10 units SQ tonight. Re-evaluate 10/10/21. * Bolus insulin * NovoLog per scale ACHS or Q6hrs while NPO * Goal Range: Low 110 mg/dL - High 140 mg/dL * Correction Factor: 20 mg/dL/unit * Nutritional / Prandial insulin per carb ratio of 1 unit per 4 grams CHO consumed
[2022-10-09] MEDS: CARBOHYDRATES FOR HYPOGLYCEMIA PO PRN (17:09)
[2022-10-09] MEDS: CYANOCOBALAMIN 1000 MCG/ML VIAL IM SCH (17:14)
[2022-10-09] MEDS: IRON SUCROSE 300 MG in SODIUM CHLORIDE 0.9% 250 ML IV SCH (17:15)
[2022-10-09] MEDS ORDERED: ALBUTEROL HFA 8 GM INHALER INH PRN (18:16)
[2022-10-09] MEDS ORDERED: ALBUT/IPRATROP 3MG/0.5MG NEB 3 ML VIAL NEB SCH (18:30)
[2022-10-09] MEDS ORDERED: ALBUTEROL 0.5% NEB SOLN 2.5 MG/0.5 ML VIAL NEB PRN (19:34)
[2022-10-09] MEDS: MIRTAZAPINE TAB 15 MG TAB PO SCH (21:04)
[2022-10-09] MEDS: QUEtiapine FUMARATE 200 MG TAB PO SCH (21:04)
[2022-10-09] MEDS ORDERED: ALBUTEROL 0.5% NEB SOLN 2.5 MG/0.5 ML VIAL NEB SCH (23:00)
[2022-10-09] MEDS ORDERED: ALBUTEROL 0.083% NEBU SOLN 3 ML VIAL NEB SCH (23:00)
[2022-10-10] MEDS: ALBUTEROL 0.083% NEBU SOLN 3 ML VIAL NEB PRN ×2 (00:54→13:36)
[2022-10-10] MEDS: ALBUTEROL 0.083% NEBU SOLN 3 ML VIAL NEB SCH ×3 (02:54→11:06)
[2022-10-10] MEDS: LEVOTHYROXINE SODIUM 25 MCG TABLET PO SCH (06:04)
[2022-10-10] MEDS: BUDESONIDE 0.5 MG/2 ML VIAL (PULMICORT) INH SCH ×2 (08:22→19:01)
[2022-10-10] MEDS: SODIUM CHLOR 7% 4 ML NEB NEB SCH ×2 (08:22→19:01)
[2022-10-10] MEDS: FORMOTEROL 20 MCG/2 ML VIAL NEB SCH ×2 (08:22→19:01)
[2022-10-10] MEDS: MAGNESIUM OXIDE 400 MG TAB PO SCH ×2 (08:58→21:25)
[2022-10-10] MEDS: AZITHROMYCIN 250 MG TAB PO SCH (08:58)
[2022-10-10] MEDS: PANTOprazole 40 MG TAB PO SCH ×2 (08:58→21:24)
--- NOTE | 2022-10-10 08:58 | Hospitalist Progress Note ---
Date of Service October 10, 2022 Assessment & Plan (1) Acute respiratory failure with hypoxia: Plan: Acute on chronic COPD exacerbation 2/2 RSV. Former tobacco use, [id number] smoking history quit 2011 Gold class D previously on MWF azithromycin COVID/Flu NEGATIVE on admit, however POSITIVE RSV -- maintaining isolation precautions Biro 02/2022: FVC 1.32 50%, FEV1 0.6 332%, FEV1/FVC 47% Recently completed course Doxycycline -- QTC prolonged on admit EKG, improved on repeat. Azithromycin for COPD exacerbation Nebs -- budesonide, hypertonic saline Had scheduled albuterol/atrovent q8h as takes at home, somehow was changed to just albuterol q2h prn overnight -- discussed w/ rt and scheduled duoneb q4h Continue mucinex, incentive spirometer, flutter valve, chest PT Sputum if able to produce PPV HS Switched to prednisone for today, however wheezing on exam concerning for volume overload CXR w/ pulmonary edema, trace effusion Lasix 20mg IV x 1 this morning, additional 40mg IV x 1 dose ordered for this evening Also discussed possible anxiety contributing, agreeable to try low dose ativan -- Bicab on chemistry , hyperventilating at times due to not being able to catch her breath with coughing Also added tessalon pearls TID for cough Also discussed w/ palliative given end stage COPD, consultation placed -- changed to DNR, need POLST prior to d/c. See note Titrated back down to 2L this afternoon, 94% SpO2 (2) Anemia: Plan: Anemia, Microcytic Of note, prior hgbs stable but chronically low over past 1-1.5 years. On Protonix BID,denied NSAID use/aleeve/ibuprofen -- stated hx >20yr ago ulcerations from stress. EGD in system 2018 w/ Grade B reflux esophagitis w/ Dr Case Iron studies w/ iron 13, trans % sat LOW 4--> Schedule Venofer 300mg daily while inpatient check fecal occult for completeness -- not able to collect sample from overnight but reported episode of MELENA in BM overnight however hgb 8.8--> 9.5 on labs (OF NOTE, on ORAL IRON BID OUTPATIENT) Xarelto resumed given stability of hgb over past two years, hx PE/DVT -- will keep at current dose, however she states PE/DVT in 2018, likely not to need PE/DVT dosing tx, but will need further investigation as denied related to surgery/trauma GI consulted -- can arrange outpt f/u. Strongly encouraged. Prior note saying patient REFUSED, however likely patient did not understand purpose of obtaining. Will have continued discussions B12 borderline low -- IM x 2, then oral daily and continue at d/c Folate borderline low -- oral replacement started -- continue at d/c TSH wnl CBC w/ hgb stable -- lasix as above Monitor CBC (3) Atrial fibrillation: Plan: hx paroxysmal afib, given EKG NSR on admit On xarelto, continued at 20mg given PE/DVT hx reported keep mag ~2, K~4 TSH wnl (4) Hypothyroid: Plan: On synthoid 25mcg daily TSH wnl (5) CHF (congestive heart failure): Plan: CHF Echo 09/2022: EF 65 to 70%, RVSP 41%, RV normal in size and function BNP normal, troponin normal, EKG without acute changes, no chest pain on admission Admitting EKG: Normal sinus rhythm, poor quality tracing, QTC 684 prolonged, QT lengthened (improved on repeat EKG) Monitor weights/I&O (6) VIJAY (obstructive sleep apnea): Plan: PPV at home nightly Continue qhs (7) Diabetes: Plan: DM2 - A1c 7.5 Goal BSG [id number] Continue basal bolus insulin glucose checks AC/at bedtime Home Lantus 15 units, lispro 12 units 3 times daily Basal/bolus calculated based on basal requirements. 15 units daily, CF 55, carb ratio 18 Pharmacy consulted for additional management/NPH in the setting of steroid use (8) Hyperkalemia: Plan: Elevated 10/09, spironolactone held and diet changed to low potassium K improved on repeat, but 5 this AM and spironolactone held Given dose of lasix as above, may need to consider combination spironolactone/lasix to prevent further hyperkalemia and maintain volume status Monitor BMP (9) KATHLEEN (generalized anxiety disorder): Plan: Continue mirtazapine 30 nightly, Seroquel 200 nightly. (10) Acute exacerbation of chronic obstructive pulmonary disease: Plan: as above (11) Acute on chronic respiratory failure with hypoxia and hypercapnia: (12) Chronic respiratory failure with hypoxia: (13) COPD (chronic obstructive pulmonary disease): (14) Major depression, recurrent, full remission: (15) Pulmonary embolism: Plan: Will need to inquire more about such history/timing vs whether her xarelto for afib alone -- patient states was >5 years ago. She does have hx breast ca On imaging, appears patient has IVC filter as well DVT prophylaxis: Xarelto Admission and Anticipated Discharge Date Admission Date: October 07, 2022 Supervising Physician Co-Signing Physician Notes The patient was not seen by me. The chart was reviewed. Case discussed with LOLA Sherman. Agree with assessment and plan Subjective eval this morning around 11am, just finished getting cleaned up and reporting significant shortness of breath. diffuse wheezing, Requesting breathing treatment currently. , RT alerted CXR ordered urgent for eval but also asked RN to administer dose of IV lasix x1 as well in meantime as ordered this morning but not yet given. + Cough, but no sputum production. No fever/chills, nausea or vomiting. Consultation for palliative this morning. Review of Systems Review of Systems: All systems reviewed & are unremarkable except as noted in HPI & below Physical Exam Physical Exam: General: chronically ill appearing female sitting up in bed, mild-moderate respiratory distress after getting washed up, audible wheezing/cough Resp: sitting at edge of bed, pursed lip breathing, slightly tachypneic, diffuse wheezing posterior/anterior lung max, inspiratory and expiratory, on 3L initially (2L this afternoon) CV: regular rate/rhythm, no m/r/g, trace LE edema, calves nontender GI:+BS, slight distension, nontender : no heller MSK/Neuro: moves all extremities, no focal deficit Psych: AOx3,ANXIOUS, requesting breathing treatment Results & Data Results & Data ([facility]) Vital Signs (Past 12 Hours) Vital Signs Temp Pulse Pulse Pulse Resp BP Pulse Ox 10/10/22 08:24 60 20 96 10/10/22 07:30 10/10/22 06:12 71 22 95 10/10/22 03:00 75 22 96 10/10/22 02:55 75 18 96 10/10/22 00:54 70 18 89 L 10/09/22 22:53 36.9 C 70 18 146/69 H 94 01/26/23 21:57 71 18 92 10/09/22 21:24 O2 Del Method O2 Flow Rate 10/10/22 08:24 Nasal Cannula 3 10/10/22 07:30 Nasal Cannula 2 10/10/22 06:12 Nasal Cannula 3 10/10/22 03:00 2 10/10/22 02:55 Nasal Cannula 3 10/10/22 00:54 Nasal Cannula 2 10/09/22 22:53 Nasal Cannula 3 10/09/22 21:57 Nasal Cannula 2 10/09/22 21:24 Nasal Cannula 2 Laboratory Results 10/10/22 10/10/22 10/10/22 Range/Units 08:50 08:50 08:50 WBC 12.80 H (4.8-10.8) K/ul RBC 3.99 L (4.20-5.40) M/uL Hgb 9.4 L (12.0-16.0) g/dl Hct 31.6 L (37.0-47.0) % MCV 79.2 L (80.0-100.0) fL MCH 23.6 L (25.0-34.0) pg MCHC 29.7 L (32.0-36.0) g/dL RDW Std Deviation 56.4 H (36.4-46.3) fL RDW Coeff of Jame 20.0 H (11.5-14.5) % Plt Count 358 (130-400) K/uL MPV 8.7 L (9.4-12.4) fL Immature Gran % (Auto) % Neut % (Auto) % Lymph % (Auto) % Crook % (Auto) % Eos % (Auto) % Baso % (Auto) % Neut # (Auto) (1.40-6.50) K/uL Lymph # (Auto) (1.2-3.4) K/uL Crook # (Auto) (0.11-0.59) K/uL Eos # (Auto) (0-0.50) K/uL Baso # (Auto) (0-0.2) K/uL Immature Gran # (Auto) (0.01-0.20) K/uL Absolute Nucleated RBC 0.02 (0-0.12) K/uL Nucleated RBC % (auto) 0.2 % Polychromasia Sodium 140 (136-145) mmol/L Potassium 5.0 (3.5-5.1) mmol/L Chloride 101 (98-107) mmol/L Carbon Dioxide 38 H (21-32) mmol/L Anion Gap 1 L (3-11) BUN 34 H (6-23) mg/dl Creatinine 1.00 (0.6-1.2) mg/dl Est Cr Clr Drug Dosing 45.6 ml/min Est GFR ( Amer) 62.5 ml/min Est GFR (Non-Af Amer) 53.9 ml/min BUN/Creatinine Ratio 34.0 H (10-20) Glucose 75 (70-99(Fasting)) mg/dl POC Glucose (70-99) mg/dl Calcium 9.1 (8.5-10.1) mg/dl Magnesium 2.2 (1.7-2.4) mg/dl Total Bilirubin (0.2-1.0) mg/dl AST (13-39) U/L ALT (7-52) U/L Alkaline Phosphatase (34-104) U/L Total Protein (6.0-8.3) gm/dl Albumin (3.4-5.0) gm/dl Globulin (2.5-4.0) gm/dl Albumin/Globulin Ratio (0.9-2) Vitamin B12 (180-914) pg/ml Folate (>5.38) ng/ml TSH 0.617 (0.300-4.500) uIu/ml 10/10/22 10/09/22 10/09/22 Range/Units 08:35 20:37 17:22 WBC (4.8-10.8) K/ul RBC (4.20-5.40) M/uL Hgb (12.0-16.0) g/dl Hct (37.0-47.0) % MCV (80.0-100.0) fL MCH (25.0-34.0) pg MCHC (32.0-36.0) g/dL RDW Std Deviation (36.4-46.3) fL RDW Coeff of Jame (11.5-14.5) % Plt Count (130-400) K/uL MPV (9.4-12.4) fL Immature Gran % (Auto) % Neut % (Auto) % Lymph % (Auto) % Crook % (Auto) % Eos % (Auto) % Baso % (Auto) % Neut # (Auto) (1.40-6.50) K/uL Lymph # (Auto) (1.2-3.4) K/uL Crook # (Auto) (0.11-0.59) K/uL Eos # (Auto) (0-0.50) K/uL Baso # (Auto) (0-0.2) K/uL Immature Gran # (Auto) (0.01-0.20) K/uL Absolute Nucleated RBC (0-0.12) K/uL Nucleated RBC % (auto) % Polychromasia Sodium (136-145) mmol/L Potassium (3.5-5.1) mmol/L Chloride (98-107) mmol/L Carbon Dioxide (21-32) mmol/L Anion Gap (3-11) BUN (6-23) mg/dl Creatinine (0.6-1.2) mg/dl Est Cr Clr Drug Dosing ml/min Est GFR ( Amer) ml/min Est GFR (Non-Af Amer) ml/min BUN/Creatinine Ratio (10-20) Glucose (70-99(Fasting)) mg/dl POC Glucose 81 195 H 77 (70-99) mg/dl Calcium (8.5-10.1) mg/dl Magnesium (1.7-2.4) mg/dl Total Bilirubin (0.2-1.0) mg/dl AST (13-39) U/L ALT (7-52) U/L Alkaline Phosphatase (34-104) U/L Total Protein (6.0-8.3) gm/dl Albumin (3.4-5.0) gm/dl Globulin (2.5-4.0) gm/dl Albumin/Globulin Ratio (0.9-2) Vitamin B12 (180-914) pg/ml Folate (>5.38) ng/ml TSH (0.300-4.500) uIu/ml 10/09/22 10/09/22 10/09/22 Range/Units 17:05 17:04 11:54 WBC (4.8-10.8) K/ul RBC (4.20-5.40) M/uL Hgb (12.0-16.0) g/dl Hct (37.0-47.0) % MCV (80.0-100.0) fL MCH (25.0-34.0) pg MCHC (32.0-36.0) g/dL RDW Std Deviation (36.4-46.3) fL RDW Coeff of Jame (11.5-14.5) % Plt Count (130-400) K/uL MPV (9.4-12.4) fL Immature Gran % (Auto) % Neut % (Auto) % Lymph % (Auto) % Crook % (Auto) % Eos % (Auto) % Baso % (Auto) % Neut # (Auto) (1.40-6.50) K/uL Lymph # (Auto) (1.2-3.4) K/uL Crook # (Auto) (0.11-0.59) K/uL Eos # (Auto) (0-0.50) K/uL Baso # (Auto) (0-0.2) K/uL Immature Gran # (Auto) (0.01-0.20) K/uL Absolute Nucleated RBC (0-0.12) K/uL Nucleated RBC % (auto) % Polychromasia Sodium (136-145) mmol/L Potassium (3.5-5.1) mmol/L Chloride (98-107) mmol/L Carbon Dioxide (21-32) mmol/L Anion Gap (3-11) BUN (6-23) mg/dl Creatinine (0.6-1.2) mg/dl Est Cr Clr Drug Dosing ml/min Est GFR ( Amer) ml/min Est GFR (Non-Af Amer) ml/min BUN/Creatinine Ratio (10-20) Glucose (70-99(Fasting)) mg/dl POC Glucose 51 L* 55 L* 110 H (70-99) mg/dl Calcium (8.5-10.1) mg/dl Magnesium (1.7-2.4) mg/dl Total Bilirubin (0.2-1.0) mg/dl AST (13-39) U/L ALT (7-52) U/L Alkaline Phosphatase (34-104) U/L Total Protein (6.0-8.3) gm/dl Albumin (3.4-5.0) gm/dl Globulin (2.5-4.0) gm/dl Albumin/Globulin Ratio (0.9-2) Vitamin B12 (180-914) pg/ml Folate (>5.38) ng/ml TSH (0.300-4.500) uIu/ml 10/09/22 10/09/22 10/09/22 Range/Units 11:38 11:38 11:38 WBC 12.92 H (4.8-10.8) K/ul RBC 3.91 L (4.20-5.40) M/uL Hgb 9.5 L (12.0-16.0) g/dl Hct 31.6 L (37.0-47.0) % MCV 80.8 (80.0-100.0) fL MCH 24.3 L (25.0-34.0) pg MCHC 30.1 L (32.0-36.0) g/dL RDW Std Deviation 57.4 H (36.4-46.3) fL RDW Coeff of Jame 19.8 H (11.5-14.5) % Plt Count 342 (130-400) K/uL MPV 8.5 L (9.4-12.4) fL Immature Gran % (Auto) 1.2 % Neut % (Auto) 90.3 % Lymph % (Auto) 4.6 % Crook % (Auto) 3.7 % Eos % (Auto) 0.0 % Baso % (Auto) 0.2 % Neut # (Auto) 11.68 H (1.40-6.50) K/uL Lymph # (Auto) 0.59 L (1.2-3.4) K/uL Crook # (Auto) 0.48 (0.11-0.59) K/uL Eos # (Auto) 0.00 (0-0.50) K/uL Baso # (Auto) 0.02 (0-0.2) K/uL Immature Gran # (Auto) 0.15 (0.01-0.20) K/uL Absolute Nucleated RBC 0.02 (0-0.12) K/uL Nucleated RBC % (auto) 0.2 % Polychromasia 1+ Sodium 139 (136-145) mmol/L Potassium 4.6 (3.5-5.1) mmol/L Chloride 100 (98-107) mmol/L Carbon Dioxide 35 H (21-32) mmol/L Anion Gap 4 (3-11) BUN 25 H (6-23) mg/dl Creatinine 0.86 (0.6-1.2) mg/dl Est Cr Clr Drug Dosing 53.0 ml/min Est GFR ( Amer) 75.0 ml/min Est GFR (Non-Af Amer) 64.7 ml/min BUN/Creatinine Ratio 29.1 H (10-20) Glucose 92 (70-99(Fasting)) mg/dl POC Glucose (70-99) mg/dl Calcium 9.3 (8.5-10.1) mg/dl Magnesium 2.2 (1.7-2.4) mg/dl Total Bilirubin 0.3 (0.2-1.0) mg/dl AST 13 (13-39) U/L ALT 12 (7-52) U/L Alkaline Phosphatase 92 (34-104) U/L Total Protein 6.3 (6.0-8.3) gm/dl Albumin 3.7 (3.4-5.0) gm/dl Globulin 2.6 (2.5-4.0) gm/dl Albumin/Globulin Ratio 1.4 (0.9-2) Vitamin B12 318 (180-914) pg/ml Folate 6.42 (>5.38) ng/ml TSH (0.300-4.500) uIu/ml Diagnostic Findings Chest X-Ray 10/10/22 11:05 XR chest 1V portable HISTORY: 77 years-old Female diffuse wheezing, sob, eval volume overload/edema acute shortness of breath with wheezing COMPARISON: October 07, 2022 TECHNIQUE: AP view of the chest FINDINGS: Cardiac silhouette is enlarged. Pulmonary vascular congestion. Emphysema with chronic interstitial coarsening. Atherosclerosis of the aorta. No pneumothorax. Possible trace pleural effusions with mild bibasilar densities. Bones appear grossly intact. IMPRESSION: 1. Cardiomegaly with pulmonary vascular congestion. 2. Emphysema. 3. Possible trace pleural effusions. ACT 112: Negative or not required by law. The above report was generated using voice recognition software. It may contain grammatical, syntax or spelling errors. Electronically signed by: Toni Zepeda M.D. 10/10/2022 11:25 AM PG Care Time/CCT Total # of Minutes Spent Total Time Spent with Patient: Total time spent is greater than 50% in coordination of care (as documented) at patient's floor/unit and/or counseling patient: Coding Level of Care Code 01353 SUB INP/OBS CARE 3/50MIN Diagnoses Acute respiratory failure with hypoxia J96.01 Anemia D64.9 Anemia type: unspecified type Atrial fibrillation I48.91 Hypothyroid E03.9 CHF (congestive heart failure) I50.9 VIJAY (obstructive sleep apnea) G47.33 Diabetes E11.9; Z79.4 Diabetes mellitus complication status: without complication Diabetes mellitus snf insulin use: with intermediate designer use Diabetes mellitus type: type 2 Hyperkalemia E87.5 KATHLEEN (generalized anxiety disorder) F41.1 Acute exacerbation of chronic obstructive pulmonary disease J44.1 Acute on chronic respiratory failure with hypoxia and hypercapnia J96.21; J96.22 Chronic respiratory failure with hypoxia J96.11 COPD (chronic obstructive pulmonary disease) J44.9 COPD type: unspecified COPD Major depression, recurrent, full remission F33.42 Pulmonary embolism I26.99 (1) Diabetes Diabetes mellitus complication status: without complication Diabetes mellitus snf insulin use: with intermediate designer use Diabetes mellitus type: type 2 Qualified Code(s): E11.9 - Type 2 diabetes mellitus without complications; Z79.4 - terminal supervisor (current) use of insulin (2) Anemia Anemia type: unspecified type Qualified Code(s): D64.9 - Anemia, unspecified (3) COPD (chronic obstructive pulmonary disease) COPD type: unspecified COPD Qualified Code(s): J44.9 - Chronic obstructive pulmonary disease, unspecified
[2022-10-10] MEDS: predniSONE 20 MG TAB PO SCH (08:59)
[2022-10-10] MEDS: CYANOCOBALAMIN 1000 MCG/ML VIAL IM SCH (08:59)
[2022-10-10] MEDS: ROFLUMILAST 500 MCG TAB PO SCH (08:59)
[2022-10-10] MEDS: METOPROLOL SUCC 25MG EXT REL TAB PO SCH ×2 (08:59→21:24)
[2022-10-10] MEDS: guaiFENesin 600 MG TABCR PO SCH ×2 (09:00→21:52)
[2022-10-10] MEDS ORDERED: LANTUS PER UNIT CHARGE SQ SCH ×2 (09:00→21:00)
[2022-10-10] MEDS: MONTELUKAST SODIUM 10 MG TABLET PO SCH (09:00)
[2022-10-10] MEDS: FOLIC ACID 400 MCG TAB PO SCH (09:00)
[2022-10-10] MEDS: SPIRONOLACTONE 100 MG TAB PO SCH (09:01)
[2022-10-10] MEDS: RIVAROXABAN 20 MG TAB PO SCH (09:03)
[2022-10-10] MEDS: INSULIN ASPART PER UNIT SC SCH ×3 (09:09→21:21)
[2022-10-10] MEDS: BENZONATATE 100 MG CAPSULE PO SCH ×3 (09:09→21:25)
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
[2022-10-10 09:42] LABS: Hematocrit (blood only) 31.6 % (37.0-47.0); Hemoglobin 9.4 g/dl (12.0-16.0); Mean Corpuscular Hemoglobin 23.6 pg (25.0-34.0); Mean Corpuscular Hgb Conc 29.7 g/dL (32.0-36.0); Mean Corpuscular Volume 79.2 fL (80.0-100.0); Mean Platelet Volume 8.7 fL (9.4-12.4); Nucleated RBC # (auto) 0.02 K/uL (0-0.12); Nucleated RBC % (auto) 0.2 %; Platelet Count 358 K/uL (130-400); RDW Standard Deviation 56.4 fL (36.4-46.3); Red Blood Count 3.99 M/uL (4.20-5.40)
[2022-10-10 10:21] LABS: Calcium 9.1 mg/dl (8.5-10.1); Magnesium 2.2 mg/dl (1.7-2.4)
[2022-10-10 10:26] LABS: Creatinine Clr Calc Pharmacy 45.6 ml/min; Est GFR (African American) 62.5 ml/min; Est GFR (Non-African American) 53.9 ml/min
[2022-10-10] MEDS ORDERED: FUROSEMIDE INJ 20 MG/2 ML VIAL IV ONE (10:45)
--- NOTE | 2022-10-10 11:26 | XRay Report ---
XR chest 1V portable HISTORY: 77 years-old Female diffuse wheezing, sob, eval volume overload/edema acute shortness of br eath with wheezing COMPARISON: October 07, 2022 TECHNIQUE: AP view of the chest FINDINGS: Cardiac silhouette is enlarged. Pulmonary vascular congestion. Emphysema with chronic interstitial co arsening. Atherosclerosis of the aorta. No pneumothorax. Possible trace pleural effusions with mild b ibasilar densities. Bones appear grossly intact. IMPRESSION: 1. Cardiomegaly with pulmonary vascular congestion. 2. Emphysema. 3. Possible trace pleural effusions. ACT 112: Negative or not required by law. The above report was generated using voice recognition software. It may contain grammatical, syntax o r spelling errors. Electronically signed by: Toni Zepeda M.D. 10/10/2022 11:25 AM
--- NOTE | 2022-10-10 12:35 | Pharmacy Report ---
Pharmacy Glycemic Short Note 2 - Date of Service October 10, 2022 - Glycemic Short BSG Results (Last 24 hours): 10/09/22 10/09/22 10/09/22 11:38 17:04 17:05 Glucose 92 POC Glucose 55 L* 51 L* 10/09/22 10/09/22 10/10/22 17:22 20:37 08:35 Glucose POC Glucose 77 195 H 81 10/10/22 08:50 Glucose 75 POC Glucose OUTPATIENT ANTIDIABETIC REGIMEN: * Metformin 500mg PO BID * Lantus 15 units SQ HS * Humalog 12 units TIDM HbA1C: 7.5% (09/17/22) ASSESSMENT: 10/10/22 * Mini received a total of 106 units of insulin yesterday with fluctuating BSG control. Patient had hypoglycemia at dinner (BSG 51 mg/dL) * 30 units Lantus * 76 units Novolog * BSGs: 228, 92, 110, 51, 195 mg/dL * Fasting of 81 mg/dL today. This is a drastic change compared to 228 mg/dL yesterday. This is likely due to transition from Solu medrol to once daily prednisone. * Post prandial BSGs mostly below goal with the exception of HS. Patient had asymptomatic hypo at lunchtime. Will further loosen novolog parameters. * Typically once daily prednisone is managed well with a once daily dose of NPH. However, given that this patient is already on Lantus and Novolog, I will attempt to manage steroid induced hyperglycemia without NPH at this time. If poor glycemic control over the next 24 hours considering adding NPH qam and decreasing Lantus to home dose of 15 units HS. 10/09/22 * Patient's BSGs yesterday were 854-117-173-284 mg/dL. Patient received 96 units of insulin (30 units of basal and 66 units of bolus). * Fasting BSG today is 228-110 mg/dL. * Patient was on Solu-Medrol 40 mg IV TID which was transitioned to Solu-Medrol 40 mg IV x 1 with prednisone 20 mg PO x 1 on 10/09/22. Patient will then be on prednisone 60 mg daily starting on 10/10/22. * Due to fasting BSG, give Lantus 20 units this AM and 10 units this PM (total of 30 units still). This is above patient's home dose of 15 units HS, but patient still has significant steroid use. Expect fasting to not be as elevated tomorrow due to no PM steroid use. Re-evaluate basal tomorrow. * Continue Novolog since steroids decreased. BASELINE * Patient is a 77 YO female with DM2 well known to the glycemic pharmacy service admitted with a COPD exacerbation. Pharmacy consulted to assist with glycemic management. * BSGs 124-256mg/dL since arrival. Received Solu Medrol 125mg X 1 in the ED, and scheduled on 40mg IV TID to begin tomorrow AM. Heart healthy diet ordered. * Based upon historical admission data (patient receiving Solu Medrol 40mg IV TID), will initiate Lantus per scale 15-20 units BID depending on BSG. Novolog will be initiated with a correction factor of 20mg/dL/unit and carb ratio of 5 unit/gm. PLAN FOR INPATIENT GLYCEMIC CONTROL: * Hold outpatient oral diabetes medications * Basal insulin * Lantus 7 units qAM, then per BSG scale at HS (7-10-15 units) * Reassess on 10/11 * Bolus insulin * NovoLog per scale ACHS or Q6hrs while NPO * Goal Range: Low 110 mg/dL - High 140 mg/dL * Correction Factor: 25 mg/dL/unit * Nutritional / Prandial insulin per carb ratio of 1 unit per 8 grams CHO consumed
[2022-10-10] MEDS: CARBOHYDRATES FOR HYPOGLYCEMIA PO PRN (12:48)
[2022-10-10] MEDS ORDERED: LORazepam 0.5 MG TAB PO STA (12:57)
[2022-10-10] MEDS ORDERED: LORazepam 0.5 MG TAB PO PRN (12:58)
[2022-10-10] MEDS ORDERED: FUROSEMIDE 40 MG/4 ML VIAL IV ONE (13:18)
[2022-10-10] MEDS ORDERED: INSULIN ASPART PER UNIT SC ONE (13:30)
[2022-10-10] MEDS ORDERED: IPRATROPIUM BROMIDE NEB SOLN 0.02% 2.5 ML VIAL NEB SCH (15:00)
[2022-10-10] MEDS: ALBUT/IPRATROP 3MG/0.5MG NEB 3 ML VIAL NEB SCH ×3 (15:34→22:40)
[2022-10-10] MEDS: IRON SUCROSE 300 MG in SODIUM CHLORIDE 0.9% 250 ML IV SCH (16:26)
[2022-10-10] MEDS ORDERED: DOCUSATE SODIUM 100 MG CAP PO PRN (16:59)
[2022-10-10] MEDS ORDERED: SENNA 8.6 MG TAB PO PRN (16:59)
[2022-10-10] MEDS ORDERED: POLYETHYLENE (MIRALAX) 17 GM PACK PO PRN (16:59)
[2022-10-10] MEDS: MIRTAZAPINE TAB 15 MG TAB PO SCH (21:25)
[2022-10-10] MEDS: QUEtiapine FUMARATE 200 MG TAB PO SCH (21:25)
[2022-10-11] MEDS: INSULIN ASPART PER UNIT SC SCH ×6 (00:04→20:41)
[2022-10-11] MEDS: ALBUT/IPRATROP 3MG/0.5MG NEB 3 ML VIAL NEB SCH ×6 (02:27→22:23)
[2022-10-11] MEDS: LEVOTHYROXINE SODIUM 25 MCG TABLET PO SCH (06:13)
[2022-10-11] MEDS: FORMOTEROL 20 MCG/2 ML VIAL NEB SCH ×2 (07:26→18:30)
[2022-10-11] MEDS: SODIUM CHLOR 7% 4 ML NEB NEB SCH ×2 (07:26→18:30)
[2022-10-11] MEDS: BUDESONIDE 0.5 MG/2 ML VIAL (PULMICORT) INH SCH ×2 (07:26→18:30)
--- NOTE | 2022-10-11 07:31 | XRay Report ---
XR chest 1V portable CLINICAL HISTORY: follow up congestion COMPARISON STUDY: Chest CT July 23, 2022. Chest radiograph October 10, 2022. FINDINGS: There is underlying emphysema. There is no pneumothorax or pleural effusion. Blunting of th e left costophrenic angle is chronic. Hazy left basilar opacity likely reflects epicardial fat pad an d atelectasis. Mild cardiomegaly is unchanged. There is no consolidation to suggest pneumonia. Appear ance of the chest is unchanged. IMPRESSION: No acute cardiopulmonary findings. No significant change in appearance of the chest. ACT 112: Negative or not required by law. Electronically signed by: Rick Canchola M.D. 10/11/2022 7:30 AM
--- NOTE | 2022-10-11 07:52 | Hospitalist Progress Note ---
Date of Service October 11, 2022 Assessment & Plan (1) Acute respiratory failure with hypoxia: Plan: Acute on chronic COPD exacerbation 2/2 RSV. Former tobacco use, [id number] smoking history quit 2011 Gold class D previously on MWF azithromycin COVID/Flu NEGATIVE on admit, however POSITIVE RSV -- maintaining isolation precautions Biro 02/2022: FVC 1.32 50%, FEV1 0.6 332%, FEV1/FVC 47% Recently completed course Doxycycline -- QTC prolonged on admit EKG, improved on repeat. Azithromycin for COPD exacerbation Nebs -- budesonide, hypertonic saline Had scheduled albuterol/atrovent q8h as takes at home, somehow was changed to just albuterol q2h prn overnight -- discussed w/ rt and scheduled duoneb q4h Continue mucinex, incentive spirometer, flutter valve, chest PT, Tessalon pearls TID for cough Sputum if able to produce PPV HS On prednisone -- taper as outlined. WBC elevation likely 2nd to steroids, remains afebrile. CXR w/ slight overload, reported distress Lasix 20mg IV again this AM (got 20 +40mg IV yesterday) Trop checked for reported chest discomfort, but discussed believe component of anxiety. Did get ativan 0.25mg x 1, schedule BID prn as needed. Did get dose 0.5mg yesterday, increase as needed Bicarb elevation likely from hyperventilating Moving to telemetry given CP complaints and hx afib for closer monitoring Supplemental O2 as needed -- on baseline 1L, SpO2 currently 92% Also discussed w/ palliative given end stage COPD, consultation placed -- changed to DNR, need POLST prior to d/c. See note (2) Anemia: Plan: Anemia, Microcytic Of note, prior hgbs stable but chronically low over past 1-1.5 years. On Protonix BID,denied NSAID use/aleeve/ibuprofen -- stated hx >20yr ago ulcerations from stress. EGD in system 2018 w/ Grade B reflux esophagitis w/ Case Iron studies w/ iron 13, trans % sat LOW 4--> Schedule Venofer 300mg daily while inpatient check fecal occult for completeness -- not able to collect sample from overnight but reported episode of MELENA in BM overnight however hgb 8.8--> 9.5 on labs (OF NOTE, on ORAL IRON BID OUTPATIENT) Xarelto resumed given stability of hgb over past two years, hx PE/DVT -- will keep at current dose, however she states PE/DVT in 2018, likely not to need PE/DVT dosing tx, but will need further investigation as denied related to surgery/trauma GI consulted -- can arrange outpt f/u. Strongly encouraged. Prior note saying patient REFUSED, however likely patient did not understand purpose of obtaining. Will have continued discussions B12 borderline low -- IM x 2, then oral daily and continue at d/c Folate borderline low -- oral replacement started -- continue at d/c TSH wnl 10/11 Hgb 10.1 since completed course Venofer 300mg IV x 2 No further blood in stool noted but can monitor. Consider further discussions about GI follow up, previously noted by GI provider to have refused however possible she didn't understand purpose/reasoning. No acute blood loss/drop in hgb to prompt emergent inpatient endoscopy but given chronicity feels outpt f/u warranted Monitor CBC in AM (3) Atrial fibrillation: Plan: hx paroxysmal afib, given EKG NSR on admit On xarelto, continued at 20mg given PE/DVT hx reported keep mag ~2, K~4 TSH wnl Trop 8 on check (4) Hypothyroid: Plan: On synthoid 25mcg daily TSH wnl (5) CHF (congestive heart failure): Plan: CHF Echo 09/2022: EF 65 to 70%, RVSP 41%, RV normal in size and function BNP normal, troponin normal, EKG without acute changes, no chest pain on admission Admitting EKG: Normal sinus rhythm, poor quality tracing, QTC 684 prolonged, QT lengthened (improved on repeat EKG) Monitor weights/I&O Repeat ECHO for eval given CP complaints as above, tele monitoring Lasix 20mg IV x 1 for today, given 20+40mg IV yesterday, spironolactone resumed as well (6) VIJAY (obstructive sleep apnea): Plan: PPV at home nightly Continue qhs (7) Diabetes: Plan: DM2 - A1c 7.5 Goal BSG [id number] Continue basal bolus insulin glucose checks AC/at bedtime Home Lantus 15 units, lispro 12 units 3 times daily Basal/bolus calculated based on basal requirements. 15 units daily, CF 55, carb ratio 18 Pharmacy consulted for additional management/NPH in the setting of steroid use (8) Hyperkalemia: Plan: Elevated 10/09, spironolactone held and diet changed to low potassium Spironolactone resumed now that wnl, lasix as above Monitor BMP (9) KATHLEEN (generalized anxiety disorder): Plan: Continue mirtazapine 30 nightly, Seroquel 200 nightly. (10) Acute exacerbation of chronic obstructive pulmonary disease: Plan: as above (11) Acute on chronic respiratory failure with hypoxia and hypercapnia: (12) Chronic respiratory failure with hypoxia: (13) COPD (chronic obstructive pulmonary disease): (14) Major depression, recurrent, full remission: (15) Pulmonary embolism: Plan: Will need to inquire more about such history/timing vs whether her xarelto for afib alone -- patient states was >5 years ago. She does have hx breast ca On imaging, appears patient has IVC filter as well She does note she has IVC filter, never talked w/ PCP about reducing her dose of Xarelto to 15mg daily for her afib. Rec'd continued discussions in follow up after discharge DVT prophylaxis: Xarelto Plan moving to monitored bed Admission and Anticipated Discharge Date Admission Date: October 07, 2022 Supervising Physician Co-Signing Physician Notes The patient was not seen by me. Chart reviewed. Case discussed with Sylvia Fernandez, physicians mobile sales assistant. Agree with assessment and plan Subjective patient evaluated this morning, still feeling a little tight but much improved from yesterday. +Cough, no sputum production. Got 2 doses of lasix yesterday. Spironolactone resumed for today. K 4.8, remains on low K diet. Discussed Ativan yesterday, she states this did help with her anxiety and discussed decreasing to 0.25mg to prevent too much sleepiness but she states she would like to get some sleep. Discussed anxiety component to breathing and will ask RN to administer a dose now. Pain from coughing, reproducible on palpation. No pain w/ inspiration. She does have an IVC filter in place, discussed f/u with PCP about changing Xarelto doing to 15mg as completed course for DVT/PE and prevention of worsening anemia. No fever, chills. No abdominal pain or nausea. She states if it weren't for her breathing she wants to be home and cleaning. Did discuss would avoid any cleaning agents that could trigger worsening of her breathing. Questions/concerns addressed at this time. Later in afternoon, increased respiratory distress/reporting chest discomfort. Trop checked, not elevated. ECHO for eval. Decision to move to monitored bed. Discussed do think anxiety contibuting. Review of Systems Review of Systems: All systems reviewed & are unremarkable except as noted in HPI & below Physical Exam Physical Exam: General: chronically ill appearing female sitting up in bed, mild-moderate respiratory distress after getting washed up, audible wheezing/cough Resp: sitting up in bed, not tachypneic (iniitally, later w/ reported distress, noted), end expiratory wheezing noted primarily posteriorly, diminished in the bases, on 2L NV CV: regular rate/rhythm, no m/r/g, trace LE edema, calves nontender GI:+BS, slight distension, nontender : no heller MSK/Neuro: moves all extremities, no focal deficit Psych: AOx3,ANXIOUS affect Results & Data Results & Data ([facility]) Vital Signs (Past 12 Hours) Vital Signs Temp Pulse Resp BP Pulse Ox O2 Del Method O2 Flow Rate 10/11/22 07:29 74 18 98 Nasal Cannula 2 10/11/22 02:28 84 18 90 Nasal Cannula 2 10/10/22 23:02 36.5 C 84 20 106/62 94 Nasal Cannula 2 10/10/22 22:40 83 18 92 Nasal Cannula 2 10/10/22 22:33 Nasal Cannula 2 Laboratory Results 10/11/22 10/11/22 10/11/22 Range/Units 12:23 12:01 08:31 WBC (4.8-10.8) K/ul RBC (4.20-5.40) M/uL Hgb (12.0-16.0) g/dl Hct (37.0-47.0) % MCV (80.0-100.0) fL MCH (25.0-34.0) pg MCHC (32.0-36.0) g/dL RDW Std Deviation (36.4-46.3) fL RDW Coeff of Jame (11.5-14.5) % Plt Count (130-400) K/uL MPV (9.4-12.4) fL Absolute Nucleated RBC (0-0.12) K/uL Nucleated RBC % (auto) % Sodium (136-145) mmol/L Potassium (3.5-5.1) mmol/L Chloride (98-107) mmol/L Carbon Dioxide (21-32) mmol/L Anion Gap (3-11) BUN (6-23) mg/dl Creatinine (0.6-1.2) mg/dl Est Cr Clr Drug Dosing ml/min Est GFR ( Amer) ml/min Est GFR (Non-Af Amer) ml/min BUN/Creatinine Ratio (10-20) Glucose (70-99(Fasting)) mg/dl POC Glucose 128 H 106 H (70-99) mg/dl Calcium (8.5-10.1) mg/dl Magnesium (1.7-2.4) mg/dl Troponin I High Sens 8.0 (0-14) pg/ml 10/11/22 10/11/22 10/11/22 Range/Units 06:55 06:55 04:12 WBC 12.98 H (4.8-10.8) K/ul RBC 4.16 L (4.20-5.40) M/uL Hgb 10.1 L (12.0-16.0) g/dl Hct 32.5 L (37.0-47.0) % MCV 78.1 L (80.0-100.0) fL MCH 24.3 L (25.0-34.0) pg MCHC 31.1 L (32.0-36.0) g/dL RDW Std Deviation 55.1 H (36.4-46.3) fL RDW Coeff of Jame 19.9 H (11.5-14.5) % Plt Count 399 (130-400) K/uL MPV 8.9 L (9.4-12.4) fL Absolute Nucleated RBC 0.03 (0-0.12) K/uL Nucleated RBC % (auto) 0.2 % Sodium 138 (136-145) mmol/L Potassium 4.8 (3.5-5.1) mmol/L Chloride 96 L (98-107) mmol/L Carbon Dioxide 39 H (21-32) mmol/L Anion Gap 3 (3-11) BUN 47 H (6-23) mg/dl Creatinine 1.14 (0.6-1.2) mg/dl Est Cr Clr Drug Dosing 40.0 ml/min Est GFR ( Amer) 53.3 ml/min Est GFR (Non-Af Amer) 46.0 ml/min BUN/Creatinine Ratio 41.2 H (10-20) Glucose 124 H (70-99(Fasting)) mg/dl POC Glucose 118 H (70-99) mg/dl Calcium 9.5 (8.5-10.1) mg/dl Magnesium 2.3 (1.7-2.4) mg/dl Troponin I High Sens (0-14) pg/ml 10/10/22 10/10/22 10/10/22 Range/Units 23:54 20:09 20:08 WBC (4.8-10.8) K/ul RBC (4.20-5.40) M/uL Hgb (12.0-16.0) g/dl Hct (37.0-47.0) % MCV (80.0-100.0) fL MCH (25.0-34.0) pg MCHC (32.0-36.0) g/dL RDW Std Deviation (36.4-46.3) fL RDW Coeff of Jame (11.5-14.5) % Plt Count (130-400) K/uL MPV (9.4-12.4) fL Absolute Nucleated RBC (0-0.12) K/uL Nucleated RBC % (auto) % Sodium (136-145) mmol/L Potassium (3.5-5.1) mmol/L Chloride (98-107) mmol/L Carbon Dioxide (21-32) mmol/L Anion Gap (3-11) BUN (6-23) mg/dl Creatinine (0.6-1.2) mg/dl Est Cr Clr Drug Dosing ml/min Est GFR ( Amer) ml/min Est GFR (Non-Af Amer) ml/min BUN/Creatinine Ratio (10-20) Glucose (70-99(Fasting)) mg/dl POC Glucose 139 H 306 H* 313 H* (70-99) mg/dl Calcium (8.5-10.1) mg/dl Magnesium (1.7-2.4) mg/dl Troponin I High Sens (0-14) pg/ml 10/10/22 Range/Units 17:28 WBC (4.8-10.8) K/ul RBC (4.20-5.40) M/uL Hgb (12.0-16.0) g/dl Hct (37.0-47.0) % MCV (80.0-100.0) fL MCH (25.0-34.0) pg MCHC (32.0-36.0) g/dL RDW Std Deviation (36.4-46.3) fL RDW Coeff of Jame (11.5-14.5) % Plt Count (130-400) K/uL MPV (9.4-12.4) fL Absolute Nucleated RBC (0-0.12) K/uL Nucleated RBC % (auto) % Sodium (136-145) mmol/L Potassium (3.5-5.1) mmol/L Chloride (98-107) mmol/L Carbon Dioxide (21-32) mmol/L Anion Gap (3-11) BUN (6-23) mg/dl Creatinine (0.6-1.2) mg/dl Est Cr Clr Drug Dosing ml/min Est GFR ( Amer) ml/min Est GFR (Non-Af Amer) ml/min BUN/Creatinine Ratio (10-20) Glucose (70-99(Fasting)) mg/dl POC Glucose 223 H (70-99) mg/dl Calcium (8.5-10.1) mg/dl Magnesium (1.7-2.4) mg/dl Troponin I High Sens (0-14) pg/ml Diagnostic Findings Chest X-Ray 10/11/22 07:00 XR chest 1V portable CLINICAL HISTORY: follow up congestion COMPARISON STUDY: Chest CT July 23, 2022. Chest radiograph October 10, 2022. FINDINGS: There is underlying emphysema. There is no pneumothorax or pleural effusion. Blunting of the left costophrenic angle is chronic. Hazy left basilar opacity likely reflects epicardial fat pad and atelectasis. Mild cardiomegaly is unchanged. There is no consolidation to suggest pneumonia. Appearance of the chest is unchanged. IMPRESSION: No acute cardiopulmonary findings. No significant change in appearance of the chest. ACT 112: Negative or not required by law. Electronically signed by: Rick Canchola M.D. 10/11/2022 7:30 AM PG Care Time/CCT Total # of Minutes Spent Total Time Spent with Patient: Total time spent is greater than 50% in coordination of care (as documented) at patient's floor/unit and/or counseling patient: Coding Level of Care Code 26969 SUB INP/OBS CARE 3/50MIN Diagnoses Acute respiratory failure with hypoxia J96.01 Anemia D64.9 Anemia type: unspecified type Atrial fibrillation I48.91 Hypothyroid E03.9 CHF (congestive heart failure) I50.9 VIJAY (obstructive sleep apnea) G47.33 Diabetes E11.9; Z79.4 Diabetes mellitus complication status: without complication Diabetes mellitus exterminator insulin use: with exterminator use Diabetes mellitus type: type 2 Hyperkalemia E87.5 KATHLEEN (generalized anxiety disorder) F41.1 Acute exacerbation of chronic obstructive pulmonary disease J44.1 Acute on chronic respiratory failure with hypoxia and hypercapnia J96.21; J96.22 Chronic respiratory failure with hypoxia J96.11 COPD (chronic obstructive pulmonary disease) J44.9 COPD type: unspecified COPD Major depression, recurrent, full remission F33.42 Pulmonary embolism I26.99 (1) Diabetes Diabetes mellitus complication status: without complication Diabetes mellitus penitentiary insulin use: with penitentiary use Diabetes mellitus type: type 2 Qualified Code(s): E11.9 - Type 2 diabetes mellitus without complications; Z79.4 - custodial (current) use of insulin (2) Anemia Anemia type: unspecified type Qualified Code(s): D64.9 - Anemia, unspecified (3) COPD (chronic obstructive pulmonary disease) COPD type: unspecified COPD Qualified Code(s): J44.9 - Chronic obstructive pulmonary disease, unspecified
[2022-10-11 08:44] LABS: Calcium 9.5 mg/dl (8.5-10.1); Magnesium 2.3 mg/dl (1.7-2.4); Potassium 4.8 mmol/L (3.5-5.1)
[2022-10-11 08:49] LABS: BUN Creatinine Ratio 41.2 (10-20); Est GFR (African American) 53.3 ml/min
[2022-10-11 08:58] LABS: Hematocrit (blood only) 32.5 % (37.0-47.0); Hemoglobin 10.1 g/dl (12.0-16.0); Mean Corpuscular Hemoglobin 24.3 pg (25.0-34.0); Mean Corpuscular Hgb Conc 31.1 g/dL (32.0-36.0); Mean Corpuscular Volume 78.1 fL (80.0-100.0); Mean Platelet Volume 8.9 fL (9.4-12.4); Nucleated RBC # (auto) 0.03 K/uL (0-0.12); Nucleated RBC % (auto) 0.2 %; Platelet Count 399 K/uL (130-400); RDW Coefficient of Variation 19.9 % (11.5-14.5); RDW Standard Deviation 55.1 fL (36.4-46.3); Red Blood Count 4.16 M/uL (4.20-5.40); White Blood Count 12.98 K/ul (4.8-10.8)
[2022-10-11] MEDS: METOPROLOL SUCC 25MG EXT REL TAB PO SCH ×2 (09:23→20:07)
[2022-10-11] MEDS: PANTOprazole 40 MG TAB PO SCH ×2 (09:23→20:07)
[2022-10-11] MEDS: AZITHROMYCIN 250 MG TAB PO SCH (09:23)
[2022-10-11] MEDS: predniSONE 20 MG TAB PO SCH (09:23)
[2022-10-11] MEDS: RIVAROXABAN 20 MG TAB PO SCH (09:23)
[2022-10-11] MEDS: SPIRONOLACTONE 100 MG TAB PO SCH (09:23)
[2022-10-11] MEDS: BENZONATATE 100 MG CAPSULE PO SCH ×3 (09:23→20:06)
[2022-10-11] MEDS: CYANOCOBALAMIN (B-12) 500 MCG TABLET PO SCH (09:24)
[2022-10-11] MEDS: guaiFENesin 600 MG TABCR PO SCH ×2 (09:24→20:09)
[2022-10-11] MEDS: FOLIC ACID 400 MCG TAB PO SCH (09:24)
[2022-10-11] MEDS: ROFLUMILAST 500 MCG TAB PO SCH (09:24)
[2022-10-11] MEDS: MAGNESIUM OXIDE 400 MG TAB PO SCH ×2 (09:24→20:09)
[2022-10-11] MEDS: MONTELUKAST SODIUM 10 MG TABLET PO SCH (09:24)
[2022-10-11] MEDS ORDERED: FLUCONAZOLE 50 MG TAB PO ONE (09:51)
[2022-10-11] MEDS ORDERED: LORazepam 0.5 MG TAB PO PRN (09:54)
[2022-10-11] MEDS: ALBUTEROL 0.083% NEBU SOLN 3 ML VIAL NEB PRN ×2 (13:19→20:12)
[2022-10-11] MEDS: MIRTAZAPINE TAB 15 MG TAB PO SCH (20:09)
[2022-10-11] MEDS: QUEtiapine FUMARATE 200 MG TAB PO SCH (20:09)
[2022-10-11] MEDS ORDERED: LANTUS PER UNIT CHARGE SQ SCH (21:00)
[2022-10-12] MEDS: ALBUT/IPRATROP 3MG/0.5MG NEB 3 ML VIAL NEB SCH ×6 (02:14→22:40)
[2022-10-12] MEDS: LORazepam 0.5 MG TAB PO PRN ×2 (02:18→10:16)
[2022-10-12] MEDS ORDERED: methylPREDNISolone 125 MG/2 ML VIAL IV STA (03:41)
[2022-10-12] MEDS ORDERED: methylPREDNISolone 60 MG in SYRINGE 0 ML IV ONE (04:00)
[2022-10-12] MEDS: BUDESONIDE 0.5 MG/2 ML VIAL (PULMICORT) INH SCH ×2 (05:04→19:29)
[2022-10-12] MEDS: FORMOTEROL 20 MCG/2 ML VIAL NEB SCH ×2 (05:04→19:29)
[2022-10-12] MEDS: SODIUM CHLOR 7% 4 ML NEB NEB SCH ×2 (05:04→19:29)
[2022-10-12] MEDS: LEVOTHYROXINE SODIUM 25 MCG TABLET PO SCH (05:53)
[2022-10-12 06:19] LABS: Hematocrit (blood only) 34.1 % (37.0-47.0); Hemoglobin 10.3 g/dl (12.0-16.0); Mean Corpuscular Hemoglobin 24.2 pg (25.0-34.0); Mean Corpuscular Hgb Conc 30.2 g/dL (32.0-36.0); Mean Platelet Volume 8.4 fL (9.4-12.4); Nucleated RBC # (auto) 0.07 K/uL (0-0.12); Nucleated RBC % (auto) 0.6 %; Platelet Count 369 K/uL (130-400); RDW Coefficient of Variation 20.5 % (11.5-14.5); RDW Standard Deviation 55.9 fL (36.4-46.3); Red Blood Count 4.26 M/uL (4.20-5.40); White Blood Count 12.21 K/ul (4.8-10.8)
[2022-10-12 06:49] LABS: Calcium 9.1 mg/dl (8.5-10.1); Magnesium 2.2 mg/dl (1.7-2.4); Potassium 5.2 mmol/L (3.5-5.1)
[2022-10-12 06:55] LABS: BUN Creatinine Ratio 44.3 (10-20); Creatinine Clr Calc Pharmacy 52.5 ml/min; Est GFR (African American) 64.8 ml/min; Est GFR (Non-African American) 55.9 ml/min
--- NOTE | 2022-10-12 07:30 | Electrocardiogram Report ---
Test Reason : Blood Pressure : / mmHG Vent. Rate : 066 BPM Atrial Rate : 066 BPM P-R Int : 160 ms QRS Dur : 064 ms QT Int : 378 ms P-R-T Axes : 074 030 071 degrees QTc Int : 396 ms Poor data quality, interpretation may be adversely affected Normal sinus rhythm When compared with ECG of 08-OCT-2022 16:39, No significant change was found Confirmed by Loyd Lawton ([id number]) on 10/12/2022 7:29:38 AM Referred By: REFERRED SELF Confirmed By:Roel Lawton
[2022-10-12] MEDS: MAGNESIUM OXIDE 400 MG TAB PO SCH ×2 (08:18→20:44)
[2022-10-12] MEDS: RIVAROXABAN 20 MG TAB PO SCH (08:19)
[2022-10-12] MEDS: guaiFENesin 600 MG TABCR PO SCH ×2 (08:19→20:44)
[2022-10-12] MEDS: MONTELUKAST SODIUM 10 MG TABLET PO SCH (08:19)
[2022-10-12] MEDS: AZITHROMYCIN 250 MG TAB PO SCH (08:19)
[2022-10-12] MEDS: CYANOCOBALAMIN (B-12) 500 MCG TABLET PO SCH (08:19)
[2022-10-12] MEDS: FOLIC ACID 400 MCG TAB PO SCH (08:19)
[2022-10-12] MEDS: PANTOprazole 40 MG TAB PO SCH ×2 (08:20→20:44)
[2022-10-12] MEDS: BENZONATATE 100 MG CAPSULE PO SCH ×3 (08:20→20:45)
[2022-10-12] MEDS: SPIRONOLACTONE 100 MG TAB PO SCH (08:20)
[2022-10-12] MEDS: ROFLUMILAST 500 MCG TAB PO SCH (08:21)
[2022-10-12] MEDS: METOPROLOL SUCC 25MG EXT REL TAB PO SCH ×2 (08:21→20:44)
--- NOTE | 2022-10-12 08:45 | Hospitalist Progress Note ---
Date of Service October 12, 2022 Assessment & Plan (1) Acute respiratory failure with hypoxia: Plan: Acute on chronic COPD exacerbation 2/2 RSV. Former tobacco use, [id number] smoking history quit 2011 Gold class D previously on MWF azithromycin COVID/Flu NEGATIVE on admit, however POSITIVE RSV -- maintaining isolation precautions Biro 02/2022: FVC 1.32 50%, FEV1 0.6 332%, FEV1/FVC 47% Recently completed course Doxycycline -- QTC prolonged on admit EKG, improved on repeat. Azithromycin for COPD exacerbation Nebs - scheduled duoneb q4 in addition to performomist, hypertonic saline Continue mucinex, incentive spirometer, flutter valve, chest PT, tessalon pearls for cough. Sputum if able to produce PPV HS Had not required any further lasix since 10/10, continue to monitor (CXR w/ pum congestion/effusions at that time, repeat w/o consolidation, noted emphysema) 10/11 Had been doing well with switch to prednisone, however and had panic attack/report of chest pain 10/11 afternoon and moved to tele given hx afib. EKG not greatest read, trop negative x3. NSR on telemetry Improvement in symptoms w/ dose of ativan 0.5mg x 1 given suspected anxiety driving her underlying issue 10/12 Unfortunately, she had what sounds like she had panic attack unable to tolerate her PPV and catch her breathing and then w/ continued hyperventilation (noted Bicab on BMP) and placed back on solumedrol IV overnight Discussed with patient given no intervention 10/11 after improvement w/ dose ativan that a large component does seem to be driving this. Will consult [facility] liason for support as well (palliative also following) Will continue methylprednisolone 40mg IV TID for now, had been on x 3 days prior admit. Will continue for now and hopefully be able to decrease in next 48 hours to prevent rebound, but again suspect her anxiety is a large component and she was given a dose 0.5mg PO last evening and agreed to dose later this morning prior to lunch for fears of having "another spell" Discussed if makes her too sleepy could try lower dose and space out the frequency. She will monitor for today and let me know Also discussed w/ palliative given end stage COPD, consultation placed -- changed to DNR, need POLST prior to d/c. See note (2) KATHLEEN (generalized anxiety disorder): Plan: SUSPECT LARGE COMPONENT DRIVING WORSENING SOB SYMPTOMS given her chronic respiratory failure at baseline/emphysema. Palliative on consult. Per review of notes back to w/ large component of anxiety even back then suspected as a driving force Continue mirtazapine 30 nightly, Seroquel 200 nightly. Improvement in symptoms w/ ativan. 0.5mg PO BID prn available -- discussed and can decrease dose and increase frequency if needed as well. NINI valles consulted for support as well as palliative care (3) Anemia: Plan: Anemia, Microcytic Of note, prior hgbs stable but chronically low over past 1-1.5 years in the 8-9s . TSH wnl On Protonix BID,denied NSAID use/aleeve/ibuprofen -- stated hx >20yr ago ulcerations from stress. EGD in system 2018 w/ Grade B reflux esophagitis w/ Dr Villagomez Checked iron stores as well as B12/folate for completeness. On PO iron at home (or supposed to be), however did have report of melena in stool . asked to check fecal occult if able Iron studies: iron 13, trans % sat LOW 4--> s/p Venofer 300mg iv x 3 doses inpatient B12 borderline low at 318 - given IM x 2 and continued on oral daily, rec continue at d/c Folate borderline low at 6.4 -- oral replacement started -- continue at d/c GI consulted -- can arrange outpt f/u. Strongly encouraged. Prior note saying patient REFUSED, however likely patient did not understand purpose of obtaining Xarelto resumed given stability of hgb over past two years, hx PE/DVT -- will keep at current dose, however she states PE/DVT in 2018, likely not to need PE/DVT dosing tx - will need f/u PCP Hgb stable 10.3, no further bleeding noted but will need to monitor. Rec f/u GI outpatient if she is agreeable. (4) Atrial fibrillation: Plan: hx paroxysmal afib, given EKG NSR on admit On xarelto, continued at 20mg given PE/DVT hx reported TSH wnl keep mag ~2, K~4 K 5.2, on low K diet, given her AM spironolactone but placed on hold and given dose of Lokelma Trop negative x 3 NSR ON TELEMETRY (5) Hypothyroid: Plan: On synthoid 25mcg daily TSH wnl (6) CHF (congestive heart failure): Plan: CHF Echo 09/2022: EF 65 to 70%, RVSP 41%, RV normal in size and function BNP normal, troponin normal, EKG without acute changes, no chest pain on admission Admitting EKG: Normal sinus rhythm, poor quality tracing, QTC 684 prolonged, QT lengthened (improved on repeat EKG) Monitor weights/I&O Repeat ECHO for eval given CP complaints as above --> compared to ECHO TWENTY FOUR YEARS AGO, unchanged. LV systolic function is normal. LV wall motion is normal. Trop negative x3 Spironolactone resumed, but placed on hold given hyperkalemia. Will need to consider adding low dose lasix to prevent hyperkalemia (7) VIJAY (obstructive sleep apnea): Plan: PPV at home nightly Continue qhs (8) Diabetes: Plan: DM2 - A1c 7.5 Pharmacy consulted, had dropped low the other morning as over corrected Needs trending down when switched to prednisone but then overnight placed back on Solumedrol and BSGs to 300s Pharmacy assisting with management w/ cautious note about over correcting when not on IV steroids Appreciate continued assistance from pharmacy/consideration for NPH (9) Hyperkalemia: Plan: Elevated 10/08, spironolactone held and diet changed to low potassium w/ normalization on repeat and this was resumed to prevent volume overload K again 5.2 on am labs and given dose of Lokelma and placed further spironolactone on hold May need to consider low dose diuretic to prevent such moving forward (10) Acute exacerbation of chronic obstructive pulmonary disease: Plan: as above (11) Acute on chronic respiratory failure with hypoxia and hypercapnia: (12) Chronic respiratory failure with hypoxia: (13) COPD (chronic obstructive pulmonary disease): (14) Major depression, recurrent, full remission: (15) Pulmonary embolism: Plan: Will need to inquire more about such history/timing vs whether her xarelto for afib alone -- patient states was >5 years ago. She does have hx breast ca On imaging, appears patient has IVC filter as well She does note she has IVC filter, never talked w/ PCP about reducing her dose of Xarelto to 15mg daily for her afib. Rec'd continued discussions in follow up after discharge DVT prophylaxis: Xarelto Plan continue IV solumedrol today, pharmacy helping w/ assistance in managing her blood sugars ativan BID prn hold spironolactone, dose lokemla. monitor labs on repeat continued inpatient stay palliative following, will touch base tomorrow Admission and Anticipated Discharge Date Admission Date: October 07, 2022 Supervising Physician Co-Signing Physician Notes The patient was not seen by me. Chart reviewed. Case discussed with LOLA Sherman. Agree with assessment and plan Subjective eval this morning, had episode sounding almost like panic attack overnight and unable to tolerate PPV and placed back on IV solumedrol and breathing treatment. Discussed yesterday symptoms much improved with ativan and she is currently sitting up at side of bed, NAD currently, however she is stating she is con tinuing to think about yesterdays events and this is making her anxious that she might have another episode shortly, despite lungs sounding much improved. Discussed LARGE component anxiety, RN to admin ativan 0.5mg x 1 now, and discussed can decrease dose if too sleepy and use as needed/more frequent lower dosing if needed in meantime. No fever/chills. +Cough, but less during encounter, still nonproductive for sputum at present. Questions/concerns addressed at this time. Physical Exam Physical Exam: General: chronically ill appearing female sitting up in bed, sitting up in bed, improved from yesterday but reporting thinking about having an attack this afternoon, anxious appearing Resp: not tachypneic, on usual 2L, decreased wheezing, no crackles, on usual 2L NC CV: regular rate/rhythm, no m/r/g, trace LE edema, calves nontender GI:+BS, soft/NT : no heller MSK/Neuro: moves all extremities, no focal deficit Psych: AOx3,ANXIOUS affect Results & Data Results & Data ([facility]) Vital Signs (Past 12 Hours) Vital Signs Temp Pulse Pulse Resp BP Pulse Ox O2 Del Method 10/12/22 08:02 35.8 C L 67 16 133/68 93 Nasal Cannula 10/12/22 05:05 65 20 96 Nasal Cannula 10/12/22 03:38 10/12/22 02:43 36 C L 70 20 142/74 H 97 BiPAP 10/12/22 02:37 69 23 96 10/12/22 02:18 69 26 H 96 Nasal Cannula 10/11/22 21:59 70 10/11/22 22:24 36.9 C 70 18 151/87 H 92 Nasal Cannula 10/11/22 22:23 72 20 92 Nasal Cannula O2 Del Method O2 Flow Rate O2 Flow Rate 10/12/22 08:02 2 10/12/22 05:05 2 10/12/22 03:38 Nasal Cannula 2 10/12/22 02:43 10/12/22 02:37 4 10/12/22 02:18 4 10/11/22 21:59 10/11/22 22:24 2 10/11/22 22:23 2 Laboratory Results 10/12/22 10/12/22 10/12/22 Range/Units 11:46 11:45 07:50 WBC (4.8-10.8) K/ul RBC (4.20-5.40) M/uL Hgb (12.0-16.0) g/dl Hct (37.0-47.0) % MCV (80.0-100.0) fL MCH (25.0-34.0) pg MCHC (32.0-36.0) g/dL RDW Std Deviation (36.4-46.3) fL RDW Coeff of Jame (11.5-14.5) % Plt Count (130-400) K/uL MPV (9.4-12.4) fL Absolute Nucleated RBC (0-0.12) K/uL Nucleated RBC % (auto) % Sodium (136-145) mmol/L Potassium (3.5-5.1) mmol/L Chloride (98-107) mmol/L Carbon Dioxide (21-32) mmol/L Anion Gap (3-11) BUN (6-23) mg/dl Creatinine (0.6-1.2) mg/dl Est Cr Clr Drug Dosing ml/min Est GFR ( Amer) ml/min Est GFR (Non-Af Amer) ml/min BUN/Creatinine Ratio (10-20) Glucose (70-99(Fasting)) mg/dl POC Glucose 339 H* 333 H* 212 H (70-99) mg/dl Calcium (8.5-10.1) mg/dl Magnesium (1.7-2.4) mg/dl Troponin I High Sens (0-14) pg/ml Urine Legionella Ag 10/12/22 10/12/22 10/12/22 Range/Units 05:47 05:47 00:17 WBC 12.21 H (4.8-10.8) K/ul RBC 4.26 (4.20-5.40) M/uL Hgb 10.3 L (12.0-16.0) g/dl Hct 34.1 L (37.0-47.0) % MCV 80.0 (80.0-100.0) fL MCH 24.2 L (25.0-34.0) pg MCHC 30.2 L (32.0-36.0) g/dL RDW Std Deviation 55.9 H (36.4-46.3) fL RDW Coeff of Jame 20.5 H (11.5-14.5) % Plt Count 369 (130-400) K/uL MPV 8.4 L (9.4-12.4) fL Absolute Nucleated RBC 0.07 (0-0.12) K/uL Nucleated RBC % (auto) 0.6 % Sodium 138 (136-145) mmol/L Potassium 5.2 H (3.5-5.1) mmol/L Chloride 99 (98-107) mmol/L Carbon Dioxide 37 H (21-32) mmol/L Anion Gap 2 L (3-11) BUN 43 H (6-23) mg/dl Creatinine 0.97 (0.6-1.2) mg/dl Est Cr Clr Drug Dosing 52.5 ml/min Est GFR ( Amer) 64.8 ml/min Est GFR (Non-Af Amer) 55.9 ml/min BUN/Creatinine Ratio 44.3 H (10-20) Glucose 196 H (70-99(Fasting)) mg/dl POC Glucose (70-99) mg/dl Calcium 9.1 (8.5-10.1) mg/dl Magnesium 2.2 (1.7-2.4) mg/dl Troponin I High Sens 6.5 (0-14) pg/ml Urine Legionella Ag 10/11/22 10/11/22 10/11/22 Range/Units 21:00 20:02 18:31 WBC (4.8-10.8) K/ul RBC (4.20-5.40) M/uL Hgb (12.0-16.0) g/dl Hct (37.0-47.0) % MCV (80.0-100.0) fL MCH (25.0-34.0) pg MCHC (32.0-36.0) g/dL RDW Std Deviation (36.4-46.3) fL RDW Coeff of Jame (11.5-14.5) % Plt Count (130-400) K/uL MPV (9.4-12.4) fL Absolute Nucleated RBC (0-0.12) K/uL Nucleated RBC % (auto) % Sodium (136-145) mmol/L Potassium (3.5-5.1) mmol/L Chloride (98-107) mmol/L Carbon Dioxide (21-32) mmol/L Anion Gap (3-11) BUN (6-23) mg/dl Creatinine (0.6-1.2) mg/dl Est Cr Clr Drug Dosing ml/min Est GFR ( Amer) ml/min Est GFR (Non-Af Amer) ml/min BUN/Creatinine Ratio (10-20) Glucose (70-99(Fasting)) mg/dl POC Glucose 285 H (70-99) mg/dl Calcium (8.5-10.1) mg/dl Magnesium (1.7-2.4) mg/dl Troponin I High Sens 6.0 (0-14) pg/ml Urine Legionella Ag Pending 10/11/22 Range/Units 16:34 WBC (4.8-10.8) K/ul RBC (4.20-5.40) M/uL Hgb (12.0-16.0) g/dl Hct (37.0-47.0) % MCV (80.0-100.0) fL MCH (25.0-34.0) pg MCHC (32.0-36.0) g/dL RDW Std Deviation (36.4-46.3) fL RDW Coeff of Jame (11.5-14.5) % Plt Count (130-400) K/uL MPV (9.4-12.4) fL Absolute Nucleated RBC (0-0.12) K/uL Nucleated RBC % (auto) % Sodium (136-145) mmol/L Potassium (3.5-5.1) mmol/L Chloride (98-107) mmol/L Carbon Dioxide (21-32) mmol/L Anion Gap (3-11) BUN (6-23) mg/dl Creatinine (0.6-1.2) mg/dl Est Cr Clr Drug Dosing ml/min Est GFR ( Amer) ml/min Est GFR (Non-Af Amer) ml/min BUN/Creatinine Ratio (10-20) Glucose (70-99(Fasting)) mg/dl POC Glucose 255 H (70-99) mg/dl Calcium (8.5-10.1) mg/dl Magnesium (1.7-2.4) mg/dl Troponin I High Sens (0-14) pg/ml Urine Legionella Ag PG Care Time/CCT Total # of Minutes Spent Total Time Spent with Patient: Total time spent is greater than 50% in coordination of care (as documented) at patient's floor/unit and/or counseling patient: Coding Level of Care Code 23955 SUB INP/OBS CARE 3/50MIN Diagnoses Acute respiratory failure with hypoxia J96.01 KATHLEEN (generalized anxiety disorder) F41.1 Anemia D64.9 Anemia type: unspecified type Atrial fibrillation I48.91 Hypothyroid E03.9 CHF (congestive heart failure) I50.9 VIJAY (obstructive sleep apnea) G47.33 Diabetes E11.9; Z79.4 Diabetes mellitus complication status: without complication Diabetes mellitus assisted insulin use: with joint terminal attack controller use Diabetes mellitus type: type 2 Hyperkalemia E87.5 Acute exacerbation of chronic obstructive pulmonary disease J44.1 Acute on chronic respiratory failure with hypoxia and hypercapnia J96.21; J96.22 Chronic respiratory failure with hypoxia J96.11 COPD (chronic obstructive pulmonary disease) J44.9 COPD type: unspecified COPD Major depression, recurrent, full remission F33.42 Pulmonary embolism I26.99 (1) Diabetes Diabetes mellitus complication status: without complication Diabetes mellitus joint terminal attack controller insulin use: with joint terminal attack controller use Diabetes mellitus type: type 2 Qualified Code(s): E11.9 - Type 2 diabetes mellitus without complications; Z79.4 - termite inspector (current) use of insulin (2) Anemia Anemia type: unspecified type Qualified Code(s): D64.9 - Anemia, unspecified (3) COPD (chronic obstructive pulmonary disease) COPD type: unspecified COPD Qualified Code(s): J44.9 - Chronic obstructive pulmonary disease, unspecified
[2022-10-12] MEDS: INSULIN ASPART PER UNIT SC SCH ×4 (08:58→20:52)
[2022-10-12] MEDS ORDERED: LANTUS PER UNIT CHARGE SQ SCH ×2 (09:00→21:00)
--- NOTE | 2022-10-12 09:49 | XRay Report ---
XR chest 2V PA/lateral CLINICAL HISTORY: follow up COMPARISON STUDY: Chest radiograph October 11, 2022. Chest CT July 23, 2022. FINDINGS: Emphysema is present. There is no pneumothorax or pleural effusion. Left lower lung linear densities favor scarring or atelectasis. There is no consolidation to suggest pneumonia. Cardiomedias tinal silhouette is stable. IMPRESSION: No acute cardiopulmonary findings. Emphysema. ACT 112: Negative or not required by law. Electronically signed by: Rick Canchola M.D. 10/12/2022 9:46 AM
[2022-10-12] MEDS ORDERED: SODIUM ZIRCONIUM CYCLOSILICATE 10 GM PACKET PO ONE (10:00)
--- NOTE | 2022-10-12 11:41 | Pharmacy Report ---
Pharmacy Glycemic Short Note 2 - Date of Service October 12, 2022 - Glycemic Short BSG Results (Last 24 hours): 10/11/22 10/11/22 10/11/22 12:01 16:34 20:02 Glucose POC Glucose 128 H 255 H 285 H 10/12/22 10/12/22 05:47 07:50 Glucose 196 H POC Glucose 212 H OUTPATIENT ANTIDIABETIC REGIMEN: * Metformin 500mg PO BID * Lantus 15 units SQ HS * Humalog 12 units TIDM HbA1C: 7.5% (09/17/22) ASSESSMENT: 10/12/22 * Patient's BSGs yesterday were [phone] mg/dL. Patient received 76 units of insulin (15 units of basal and 61 units of bolus). * Patient received prednisone 60 mg PO yesterday. * Patient received 60 mg of Solu-Medrol at 0400 today plus started on Solu- Medrol 40 mg IV TID (starting at 1400). * Based upon the above steroids, restart Lantus 15 units BID. Tighten Novolog to CR of 3. * Overnight checks are also ordered to bring down fasting BSGs. Caution of overutilization of Lantus as needs drastically decreased when transition to PO prednisone. 10/10/22 * Mini received a total of 106 units of insulin yesterday with fluctuating BSG control. Patient had hypoglycemia at dinner (BSG 51 mg/dL) * 30 units Lantus * 76 units Novolog * BSGs: 228, 92, 110, 51, 195 mg/dL * Fasting of 81 mg/dL today. This is a drastic change compared to 228 mg/dL yesterday. This is likely due to transition from Solu medrol to once daily prednisone. * Post prandial BSGs mostly below goal with the exception of HS. Patient had asymptomatic hypo at lunchtime. Will further loosen novolog parameters. * Typically once daily prednisone is managed well with a once daily dose of NPH. However, given that this patient is already on Lantus and Novolog, I will attempt to manage steroid induced hyperglycemia without NPH at this time. If poor glycemic control over the next 24 hours considering adding NPH qam and decreasing Lantus to home dose of 15 units HS. 10/09/22 * Patient's BSGs yesterday were [phone] mg/dL. Patient received 96 units of insulin (30 units of basal and 66 units of bolus). * Fasting BSG today is 228-110 mg/dL. * Patient was on Solu-Medrol 40 mg IV TID which was transitioned to Solu-Medrol 40 mg IV x 1 with prednisone 20 mg PO x 1 on 10/09/22. Patient will then be on prednisone 60 mg daily starting on 10/10/22. * Due to fasting BSG, give Lantus 20 units this AM and 10 units this PM (total of 30 units still). This is above patient's home dose of 15 units HS, but pat ient still has significant steroid use. Expect fasting to not be as elevated tomorrow due to no PM steroid use. Re-evaluate basal tomorrow. * Continue Novolog since steroids decreased. BASELINE * Patient is a 77 YO female with DM2 well known to the glycemic pharmacy service admitted with a COPD exacerbation. Pharmacy consulted to assist with glycemic management. * BSGs 124-256mg/dL since arrival. Received Solu Medrol 125mg X 1 in the ED, and scheduled on 40mg IV TID to begin tomorrow AM. Heart healthy diet ordered. * Based upon historical admission data (patient receiving Solu Medrol 40mg IV TID), will initiate Lantus per scale 15-20 units BID depending on BSG. Novolog will be initiated with a correction factor of 20mg/dL/unit and carb ratio of 5 unit/gm. PLAN FOR INPATIENT GLYCEMIC CONTROL: * Hold outpatient oral diabetes medications * Basal insulin * Lantus 15 units SQ BID * Bolus insulin * NovoLog per scale ACHS or Q6hrs while NPO * Goal Range: Low 110 mg/dL - High 140 mg/dL * Correction Factor: 20 mg/dL/unit * Nutritional / Prandial insulin per carb ratio of 1 unit per 3 grams CHO consumed
--- NOTE | 2022-10-12 11:45 | XCELERA ---
[id number]
[2022-10-12] MEDS ORDERED: INSULIN ASPART PER UNIT SC ONE (12:15)
[2022-10-12] MEDS: methylPREDNISolone 40 MG in SYRINGE 0 ML IV SCH ×2 (14:11→20:41)
[2022-10-12] MEDS: MIRTAZAPINE TAB 15 MG TAB PO SCH (20:44)
[2022-10-12] MEDS: QUEtiapine FUMARATE 200 MG TAB PO SCH (20:44)
[2022-10-12] MEDS ORDERED: ACETAMINOPHEN 325 MG TAB PO PRN (20:51)
[2022-10-13] MEDS: INSULIN ASPART PER UNIT SC SCH ×6 (00:19→20:38)
[2022-10-13] MEDS: ALBUT/IPRATROP 3MG/0.5MG NEB 3 ML VIAL NEB SCH ×6 (02:23→22:00)
[2022-10-13] MEDS: LEVOTHYROXINE SODIUM 25 MCG TABLET PO SCH (06:06)
[2022-10-13] MEDS: SODIUM CHLOR 7% 4 ML NEB NEB SCH ×2 (07:06→19:11)
[2022-10-13] MEDS: BUDESONIDE 0.5 MG/2 ML VIAL (PULMICORT) INH SCH ×2 (07:23→19:11)
[2022-10-13] MEDS: FORMOTEROL 20 MCG/2 ML VIAL NEB SCH ×2 (07:23→19:11)
[2022-10-13] MEDS: BENZONATATE 100 MG CAPSULE PO SCH ×3 (08:25→20:44)
[2022-10-13] MEDS: METOPROLOL SUCC 25MG EXT REL TAB PO SCH ×2 (08:25→20:43)
--- NOTE | 2022-10-13 08:25 | Hospitalist Progress Note ---
Date of Service October 13, 2022 Assessment & Plan (1) Acute respiratory failure with hypoxia: Plan: Acute on chronic COPD exacerbation 2/2 RSV. Former tobacco use, [id number] smoking history quit 2011 Gold class D previously on MWF azithromycin COVID/Flu NEGATIVE on admit, however POSITIVE RSV -- maintaining isolation precautions Biro 02/2022: FVC 1.32 50%, FEV1 0.6 332%, FEV1/FVC 47% Recently completed course Doxycycline -- QTC prolonged on admit EKG, improved on repeat. Azithromycin for COPD exacerbation Nebs - scheduled duoneb q4 in addition to performomist, hypertonic saline Continue mucinex, incentive spirometer, flutter valve, chest PT, tessalon pearls for cough. Sputum if able to produce PPV HS Had not required any further lasix since 10/10, continue to monitor (CXR w/ pum congestion/effusions at that time, repeat w/o consolidation, noted emphysema) 10/11 Had been doing well with switch to prednisone, however and had panic attack/report of chest pain 10/11 afternoon and moved to tele given hx afib. EKG not greatest read, trop negative x3. NSR on telemetry Improvement in symptoms w/ dose of ativan 0.5mg x 1 given suspected anxiety driving her underlying issue 10/12 Unfortunately, she had what sounds like she had panic attack unable to tolerate her PPV and catch her breathing and then w/ continued hyperventilation (noted Bicab on BMP) and placed back on solumedrol IV overnight Discussed with patient given no intervention 10/11 after improvement w/ dose ativan that a large component does seem to be driving this. Will consult [facility] liason for support as well (palliative also following) Continue methylprednisolone 40mg IV TID for now, had been on x 3 days prior admit. Will continue for now and hopefully be able to decrease in next 48 hours to prevent rebound, but again suspect her anxiety is a large component and she was given a dose 0.5mg PO last evening and agreed to dose later this morning prior to lunch for fears of having "another spell" Discussed if makes her too sleepy could try lower dose and space out the frequency. She will monitor for today and let me know 10/13 Feeling improved, less wheezing. Will continue IV solumedrol at least another 24 hours to prevent rebound Slight increase LE edema, dose of lasix provided (spironolactone on hold prior due to hyperkalemia -- consider lowering that dose/adding lasix to her usual regimen in follow up to prevent volume overload) Ativan 0.5mg BID prn -- took dose this afternoon, happy w/ current dose and will continue w/ such Per later conversation w/ palliative medicine, patient willing to trial roxanol 2.5mg as needed for air hunger, titrations based on patient's response Patient is DNR as discussed by them last week -- will need POLST prior to d/c (2) KATHLEEN (generalized anxiety disorder): Plan: SUSPECT LARGE COMPONENT DRIVING WORSENING SOB SYMPTOMS given her chronic respiratory failure at baseline/emphysema. Palliative on consult. Per review of notes back to 2017/2017 w/ large component of anxiety even back then suspected as a driving force Continue mirtazapine 30 nightly, Seroquel 200 nightly. Improvement in symptoms w/ ativan. 0.5mg PO BID prn available -- discussed and can decrease dose and increase frequency if needed as well. NINI valles consulted for support as well as palliative care (3) Anemia: Plan: Anemia, Microcytic Of note, prior hgbs stable but chronically low over past 1-1.5 years in the 8-9s . TSH wnl On Protonix BID,denied NSAID use/aleeve/ibuprofen -- stated hx >20yr ago ulcerations from stress. EGD in system 2018 w/ Grade B reflux esophagitis w/ Dr Villagomez Checked iron stores as well as B12/folate for completeness. On PO iron at home (or supposed to be), however did have report of melena in stool . asked to check fecal occult if able Iron studies: iron 13, trans % sat LOW 4--> s/p Venofer 300mg iv x 3 doses inpatient B12 borderline low at 318 - given IM x 2 and continued on oral daily, rec continue at d/c Folate borderline low at 6.4 -- oral replacement started -- continue at d/c GI consulted -- can arrange outpt f/u. Strongly encouraged. Prior note saying patient REFUSED, however likely patient did not understand purpose of obtaining Xarelto resumed given stability of hgb over past two years, hx PE/DVT -- will keep at current dose, however she states PE/DVT in 2018, likely not to need PE/DVT dosing tx - will need f/u PCP Hgb stable on repeat/no further bleeding reported ?lab error today given no reports of bleeding vs dehydration day prior w/ diuretic use, 40mg PO lasix as above in lieu of spironolactone for fluid balance (4) Atrial fibrillation: Plan: hx paroxysmal afib, given EKG NSR on admit On xarelto, continued at 20mg given PE/DVT hx reported TSH wnl Trop negative x 3 for reported chest discomfort 10/11 NSR ON TELEMETRY keep mag ~2, K~4 --> K 5.2 on labs 10/12 -- remains on low K diet. Did get 1x dose lokelma K 5.0 on AM labs Dose of 40mg PO lasix for volume management as above, consider daily while on steroids to prevent volume overload (5) Hypothyroid: Plan: On synthoid 25mcg daily TSH wnl (6) CHF (congestive heart failure): Plan: CHF Echo 09/2022: EF 65 to 70%, RVSP 41%, RV normal in size and function BNP normal, troponin normal, EKG without acute changes, no chest pain on admission Admitting EKG: Normal sinus rhythm, poor quality tracing, QTC 684 prolonged, QT lengthened (improved on repeat EKG) Monitor weights/I&O Repeat ECHO for eval given CP complaints as above --> compared to ECHO TWENTY FOUR YEARS AGO, unchanged. LV systolic function is normal. LV wall motion is normal. Trop negative x3 Spironolactone resumed, but placed on hold given hyperkalemia 10/12 (had been given AM dose) Spironolactone on hold, lasix 40mg PO x 1 provided for increased LE edema/end expiratory wheezing while on steroids. BNP not elevated however some studies w/ patients w/ obesity w/ normal/low natruretic peptide --> holding , giving lasix as above. BNP only 31, however studies w/ normal BNP in obese patients requiring diuretic therapy (7) VIJAY (obstructive sleep apnea): Plan: PPV at home nightly Continue qhs (8) Diabetes: Plan: DM2 - A1c 7.5 Pharmacy consulted, had dropped low the other morning as over corrected Needs trending down when switched to prednisone but then overnight placed back on Solumedrol and BSGs to 300s AM 10/12 Pharmacy assisting with management w/ cautious note about over correcting when not on IV steroids --> unfortunately BSGs improved in evening, but into 300s overnight and again 333 this morning asked RN to contact pharmacy/consideration for daily NPH while on steroids (9) Hyperkalemia: Plan: Elevated 10/08, spironolactone held and diet changed to low potassium w/ normalization on repeat and this was resumed to prevent volume overload K again 5.2 on am labs and given dose of Lokelma and placed further spironolactone on hold May need to consider low dose diuretic to prevent such moving forward (10) Acute exacerbation of chronic obstructive pulmonary disease: Plan: as above (11) Acute on chronic respiratory failure with hypoxia and hypercapnia: (12) Chronic respiratory failure with hypoxia: (13) COPD (chronic obstructive pulmonary disease): (14) Major depression, recurrent, full remission: (15) Pulmonary embolism: Plan: Will need to inquire more about such history/timing vs whether her xarelto for afib alone -- patient states was >5 years ago. She does have hx breast ca On imaging, appears patient has IVC filter as well She does note she has IVC filter, never talked w/ PCP about reducing her dose of Xarelto to 15mg daily for her afib. Rec'd continued discussions in follow up after discharge DVT prophylaxis: Xarelto Plan continued inpatient stay continuing IV steroids for now, hopefully able to transition to PO prednisone in the next 24 hours Completed course of azithromycin for COPD exacerbation continue scheduled nebulizers holding spironolactone given borderline hyperkalemia, ordered dose of lasix for volume management and continue to monitor I&O/daily weights and consider low dose daily (vlad while on steroids) to maintain volume status Admission and Anticipated Discharge Date Admission Date: October 07, 2022 Supervising Physician Co-Signing Physician Notes The patient was not seen by me. Chart reviewed. Case discussed with LOLA Sherman. Agree with assessment and plan Subjective eval this morning, states breathing slightly better, less tight. less wheezing on exam discussed continued steroids for now. pharmacy assisting with BSGs, alerted of continued IV dosing steroids for closer coverage to prevent elevations like having past nights. Ativan helped w/ anxiety yesterday, feels correct dose without need for lower dose. Discussed available, however she states she doesn't need anything currently. Some increase in LE edema , spironolactone held this morning for hyperkalemia day prior, will utilize dose of lasix given K5 on AM labs for diuresis. Questions/concerns addressed at this time. Review of Systems Review of Systems: All systems reviewed & are unremarkable except as noted in HPI & below Physical Exam Physical Exam: General: chronically ill appearing female resting in bed upon entry, NAD Resp: not tachypneic, on usual 2L, decreased end expiratory wheezing primarily to posterior lung max, diminished in the bases, on 2L NC 100% CV: regular rate/rhythm, no m/r/g, trace LE edema, calves nontender GI:+BS, soft/NT : no heller MSK/Neuro: moves all extremities, no focal deficit Psych: AOx3, cooperative Results & Data Results & Data ([facility]) Vital Signs (Past 12 Hours) Vital Signs Temp Pulse Pulse Resp BP Pulse Ox O2 Del Method 10/13/22 07:59 36.5 C 73 16 134/70 100 Nebulizer 10/13/22 07:08 69 10/13/22 07:09 82 18 92 Nasal Cannula 10/13/22 03:32 36.5 C 80 18 160/76 H 93 Nasal Cannula 10/13/22 02:24 78 18 94 Nasal Cannula 10/13/22 00:13 98 H 148/70 H 10/12/22 22:33 36.9 C 78 18 170/83 H 92 Nasal Cannula 10/12/22 23:08 Nasal Cannula 10/12/22 23:04 70 10/12/22 22:40 77 18 92 Nasal Cannula O2 Flow Rate 10/13/22 07:59 10/13/22 07:08 10/13/22 07:09 2 10/13/22 03:32 2 10/13/22 02:24 3 10/13/22 00:13 10/12/22 22:33 2 10/12/22 23:08 2 10/12/22 23:04 10/12/22 22:40 3 Laboratory Results 10/13/22 10/13/22 10/13/22 Range/Units 11:45 08:43 08:43 WBC 13.25 H (4.8-10.8) K/ul RBC 4.06 L (4.20-5.40) M/uL Hgb 9.9 L (12.0-16.0) g/dl Hct 33.2 L (37.0-47.0) % MCV 81.8 (80.0-100.0) fL MCH 24.4 L (25.0-34.0) pg MCHC 29.8 L (32.0-36.0) g/dL RDW Std Deviation 59.0 H (36.4-46.3) fL RDW Coeff of Jame 21.3 H (11.5-14.5) % Plt Count 382 (130-400) K/uL MPV 8.7 L (9.4-12.4) fL Sodium 136 (136-145) mmol/L Potassium 5.0 (3.5-5.1) mmol/L Chloride 99 (98-107) mmol/L Carbon Dioxide 35 H (21-32) mmol/L Anion Gap 2 L (3-11) BUN 39 H (6-23) mg/dl Creatinine 1.00 (0.6-1.2) mg/dl Est Cr Clr Drug Dosing 50.9 ml/min Est GFR ( Amer) 62.5 ml/min Est GFR (Non-Af Amer) 53.9 ml/min BUN/Creatinine Ratio 39.0 H (10-20) Glucose 333 H* (70-99(Fasting)) mg/dl POC Glucose 204 H (70-99) mg/dl Calcium 9.4 (8.5-10.1) mg/dl Magnesium 2.1 (1.7-2.4) mg/dl Total Bilirubin 0.3 (0.2-1.0) mg/dl AST 10 L (13-39) U/L ALT 19 (7-52) U/L Alkaline Phosphatase 74 (34-104) U/L Total Protein 5.8 L (6.0-8.3) gm/dl Albumin 3.5 (3.4-5.0) gm/dl Globulin 2.3 L (2.5-4.0) gm/dl Albumin/Globulin Ratio 1.5 (0.9-2) 10/13/22 10/13/22 10/13/22 Range/Units 07:45 03:37 00:12 WBC (4.8-10.8) K/ul RBC (4.20-5.40) M/uL Hgb (12.0-16.0) g/dl Hct (37.0-47.0) % MCV (80.0-100.0) fL MCH (25.0-34.0) pg MCHC (32.0-36.0) g/dL RDW Std Deviation (36.4-46.3) fL RDW Coeff of Jame (11.5-14.5) % Plt Count (130-400) K/uL MPV (9.4-12.4) fL Sodium (136-145) mmol/L Potassium (3.5-5.1) mmol/L Chloride (98-107) mmol/L Carbon Dioxide (21-32) mmol/L Anion Gap (3-11) BUN (6-23) mg/dl Creatinine (0.6-1.2) mg/dl Est Cr Clr Drug Dosing ml/min Est GFR ( Amer) ml/min Est GFR (Non-Af Amer) ml/min BUN/Creatinine Ratio (10-20) Glucose (70-99(Fasting)) mg/dl POC Glucose 266 H 306 H* 305 H* (70-99) mg/dl Calcium (8.5-10.1) mg/dl Magnesium (1.7-2.4) mg/dl Total Bilirubin (0.2-1.0) mg/dl AST (13-39) U/L ALT (7-52) U/L Alkaline Phosphatase (34-104) U/L Total Protein (6.0-8.3) gm/dl Albumin (3.4-5.0) gm/dl Globulin (2.5-4.0) gm/dl Albumin/Globulin Ratio (0.9-2) 10/12/22 10/12/22 Range/Units 20:25 16:44 WBC (4.8-10.8) K/ul RBC (4.20-5.40) M/uL Hgb (12.0-16.0) g/dl Hct (37.0-47.0) % MCV (80.0-100.0) fL MCH (25.0-34.0) pg MCHC (32.0-36.0) g/dL RDW Std Deviation (36.4-46.3) fL RDW Coeff of Jame (11.5-14.5) % Plt Count (130-400) K/uL MPV (9.4-12.4) fL Sodium (136-145) mmol/L Potassium (3.5-5.1) mmol/L Chloride (98-107) mmol/L Carbon Dioxide (21-32) mmol/L Anion Gap (3-11) BUN (6-23) mg/dl Creatinine (0.6-1.2) mg/dl Est Cr Clr Drug Dosing ml/min Est GFR ( Amer) ml/min Est GFR (Non-Af Amer) ml/min BUN/Creatinine Ratio (10-20) Glucose (70-99(Fasting)) mg/dl POC Glucose 244 H 206 H (70-99) mg/dl Calcium (8.5-10.1) mg/dl Magnesium (1.7-2.4) mg/dl Total Bilirubin (0.2-1.0) mg/dl AST (13-39) U/L ALT (7-52) U/L Alkaline Phosphatase (34-104) U/L Total Protein (6.0-8.3) gm/dl Albumin (3.4-5.0) gm/dl Globulin (2.5-4.0) gm/dl Albumin/Globulin Ratio (0.9-2) PG Care Time/CCT Total # of Minutes Spent Total Time Spent with Patient: Total time spent is greater than 50% in coordination of care (as documented) at patient's floor/unit and/or counseling patient: Coding Level of Care Code 96026 SUB INP/OBS CARE 3/50MIN Diagnoses Acute respiratory failure with hypoxia J96.01 KATHLEEN (generalized anxiety disorder) F41.1 Anemia D64.9 Anemia type: unspecified type Atrial fibrillation I48.91 Hypothyroid E03.9 CHF (congestive heart failure) I50.9 VIJAY (obstructive sleep apnea) G47.33 Diabetes E11.9; Z79.4 Diabetes mellitus complication status: without complication 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: with 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 use Diabetes mellitus type: type 2 Hyperkalemia E87.5 Acute exacerbation of chronic obstructive pulmonary disease J44.1 Acute on chronic respiratory failure with hypoxia and hypercapnia J96.21; J96.22 Chronic respiratory failure with hypoxia J96.11 COPD (chronic obstructive pulmonary disease) J44.9 COPD type: unspecified COPD Major depression, recurrent, full remission F33.42 Pulmonary embolism I26.99 (1) Diabetes Diabetes mellitus complication status: without complication 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
[2022-10-13] MEDS: methylPREDNISolone 40 MG in SYRINGE 0 ML IV SCH ×3 (08:26→20:43)
[2022-10-13] MEDS: PANTOprazole 40 MG TAB PO SCH ×2 (08:26→20:44)
[2022-10-13] MEDS: MAGNESIUM OXIDE 400 MG TAB PO SCH ×2 (08:26→20:44)
[2022-10-13] MEDS: RIVAROXABAN 20 MG TAB PO SCH (08:26)
[2022-10-13] MEDS: MONTELUKAST SODIUM 10 MG TABLET PO SCH (08:27)
[2022-10-13] MEDS: ROFLUMILAST 500 MCG TAB PO SCH (08:27)
[2022-10-13] MEDS: CYANOCOBALAMIN (B-12) 500 MCG TABLET PO SCH (08:27)
[2022-10-13] MEDS: FOLIC ACID 400 MCG TAB PO SCH (08:27)
[2022-10-13] MEDS: guaiFENesin 600 MG TABCR PO SCH ×2 (08:27→20:43)
[2022-10-13] MEDS ORDERED: LANTUS PER UNIT CHARGE SQ SCH (09:00)
[2022-10-13 09:01] LABS: Hematocrit (blood only) 33.2 % (37.0-47.0); Hemoglobin 9.9 g/dl (12.0-16.0); Mean Corpuscular Hemoglobin 24.4 pg (25.0-34.0); Mean Corpuscular Hgb Conc 29.8 g/dL (32.0-36.0); Mean Corpuscular Volume 81.8 fL (80.0-100.0); Mean Platelet Volume 8.7 fL (9.4-12.4); Platelet Count 382 K/uL (130-400); RDW Coefficient of Variation 21.3 % (11.5-14.5); Red Blood Count 4.06 M/uL (4.20-5.40); White Blood Count 13.25 K/ul (4.8-10.8)
[2022-10-13 09:32] LABS: Albumin Level 3.5 gm/dl (3.4-5.0); Bilirubin,Total 0.3 mg/dl (0.2-1.0); Calcium 9.4 mg/dl (8.5-10.1); Magnesium 2.1 mg/dl (1.7-2.4)
[2022-10-13 09:50] LABS: Albumin Globulin Ratio 1.5 (0.9-2); Creatinine Clr Calc Pharmacy 50.9 ml/min; Est GFR (African American) 62.5 ml/min; Est GFR (Non-African American) 53.9 ml/min; Globulin 2.3 gm/dl (2.5-4.0); Total Protein 5.8 gm/dl (6.0-8.3)
[2022-10-13] MEDS ORDERED: FUROSEMIDE 40 MG TAB PO ONE (10:30)
--- NOTE | 2022-10-13 13:10 | Pharmacy Report ---
Pharmacy Glycemic Short Note 2 - Date of Service October 13, 2022 - Glycemic Short BSG Results (Last 24 hours): 10/12/22 10/12/22 10/13/22 16:44 20:25 00:12 Glucose POC Glucose 206 H 244 H 305 H* 10/13/22 10/13/22 10/13/22 03:37 07:45 08:43 Glucose 333 H* POC Glucose 306 H* 266 H 10/13/22 11:45 Glucose POC Glucose 204 H OUTPATIENT ANTIDIABETIC REGIMEN: * Metformin 500mg PO BID * Lantus 15 units SQ HS * Humalog 12 units TIDM HbA1C: 7.5% (09/17/22) ASSESSMENT: 10/13/22 * Patient received 118 units of insulin yesterday, of which 30 units were basal * Fasting BSG elevated at 266 mg/dL - will increase basal ~30% today * Continue with tighter CR breakfast, dinner, HS - will have looser CR with lunch as BSGs tend to drop from lunch to dinner 10/12/22 * Patient's BSGs yesterday were [phone] mg/dL. Patient received 76 units of insulin (15 units of basal and 61 units of bolus). * Patient received prednisone 60 mg PO yesterday. * Patient received 60 mg of Solu-Medrol at 0400 today plus started on Solu- Medrol 40 mg IV TID (starting at 1400). * Based upon the above steroids, restart Lantus 15 units BID. Tighten Novolog to CR of 3. * Overnight checks are also ordered to bring down fasting BSGs. Caution of overutilization of Lantus as needs drastically decreased when transition to PO prednisone. 10/10/22 * Mini received a total of 106 units of insulin yesterday with fluctuating BSG control. Patient had hypoglycemia at dinner (BSG 51 mg/dL) * 30 units Lantus * 76 units Novolog * BSGs: 228, 92, 110, 51, 195 mg/dL * Fasting of 81 mg/dL today. This is a drastic change compared to 228 mg/dL yesterday. This is likely due to transition from Solu medrol to once daily prednisone. * Post prandial BSGs mostly below goal with the exception of HS. Patient had asymptomatic hypo at lunchtime. Will further loosen novolog parameters. * Typically once daily prednisone is managed well with a once daily dose of NPH. However, given that this patient is already on Lantus and Novolog, I will attempt to manage steroid induced hyperglycemia without NPH at this time. If poor glycemic control over the next 24 hours considering adding NPH qam and decreasing Lantus to home dose of 15 units HS. 10/09/22 * Patient's BSGs yesterday were [phone] mg/dL. Patient received 96 units of insulin (30 units of basal and 66 units of bolus). * Fasting BSG today is 228-110 mg/dL. * Patient was on Solu-Medrol 40 mg IV TID which was transitioned to Solu-Medrol 40 mg IV x 1 with prednisone 20 mg PO x 1 on 10/09/22. Patient will then be on prednisone 60 mg daily starting on 10/10/22. * Due to fasting BSG, give Lantus 20 units this AM and 10 units this PM (total of 30 units still). This is above patient's home dose of 15 units HS, but patient still has significant steroid use. Expect fasting to not be as elevated tomorrow due to no PM steroid use. Re-evaluate basal tomorrow. * Continue Novolog since steroids decreased. BASELINE * Patient is a 77 YO female with DM2 well known to the glycemic pharmacy service admitted with a COPD exacerbation. Pharmacy consulted to assist with glycemic management. * BSGs 124-256mg/dL since arrival. Received Solu Medrol 125mg X 1 in the ED, and scheduled on 40mg IV TID to begin tomorrow AM. Heart healthy diet ordered. * Based upon historical admission data (patient receiving Solu Medrol 40mg IV TID), will initiate Lantus per scale 15-20 units BID depending on BSG. Novolog will be initiated with a correction factor of 20mg/dL/unit and carb ratio of 5 unit/gm. PLAN FOR INPATIENT GLYCEMIC CONTROL: * Hold outpatient oral diabetes medications * Basal insulin - increase * Lantus 20 units SQ BID * Bolus insulin * NovoLog per scale ACHS or Q6hrs while NPO * Goal Range: Low 110 mg/dL - High 140 mg/dL * Correction Factor: 20 mg/dL/unit * Nutritional / Prandial insulin per carb ratio of 1 unit per 3 grams CHO consumed - CR of 4 at lunch time check
--- NOTE | 2022-10-13 13:44 | Palliative Care Progress Note ---
Date of Service October 13, 2022 Assessment & Plan (1) Palliative care encounter: (2) Advanced care planning/counseling discussion: Plan: Mini continues to express a wish to return home when stable. She is comfortable with her caregivers and the assistance she has from her neighbor. She does not wish to change her current plan of care. She does not wish to go to a correction or any kind of rehab. She acknowledges that her lung disease is reaching end stages and wants to focus what ever time she may have with the people she loves the most. (3) Dyspnea and respiratory abnormalities: Plan: Her breathlessness or anxiety are cyclical in length. Anytime 1 is triggered the other will worsen. She had a couple of doses of Ativan through the weekend which made her too sedated and somnolent. She has had in the past better success with low-dose morphine liquid and therefore we will initiate a trial of that while she is here in the hospital as follows: Roxanol 2.5 mg by mouth every 3 hours as needed for air hunger. Likely this dose will need to go up to 5 mg but given her sensitivity to the Ativan this week and we will start of lower and escalate dosing as indicated. I reviewed this with the patient. She is in agreement with this trial. This medication can be continued in the home setting as well though I would recommend that she is discharge with either visiting nurse service versus hospice at that time. 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 We will begin at 2.5 mg and titrate up as tolerated. Patient is requesting assistance with showering today, senior care manager notified. She does not want discharge to a correction or rehab, wants to return home under the care and guidance of her private caregivers and her friend/neighbor. Psychosocial support and reassurance provided today. I will not add another medication to try and improve her anxiety given that we are initiating a trial of morphine for air hunger. Since her anxiety and her air hunger are linked to each other, we will begin by attempting to improve 1 symptom at the time to see if it will lead to an improvement in the other. Multiple medications simultaneously can lead to more sedation or somnolence and then it would be difficult to pinpoint which agent was the causative drug. Dia Zhang DNP Clinical Director, Palliative Medicine Admission and Anticipated Discharge Date Admission Date: October 07, 2022 Subjective Chart reviewed and patient seen. She is sitting at the edge of the bed at the time of my visit. Tells me she had some anxiety attacks through the weekend that were triggered by breathlessness. She states that she has some anxiety at baseline but that this dramatically intensifies when her breathlessness worsens. This led her to feeling a significant amount of panic and distress. Review of Systems Review of Systems: All systems reviewed & are unremarkable except as noted in Subjective Physical Exam Constitutional: + ill appearing, + obese and cooperative Eyes: PERRL, conjunctivae normal, anicteric sclerae ENMT: Ears: + hearing impairment Mouth: + dry oral mucous membranes, + poor dentition and + chipped teeth Throat: uvula midline Neck: normal visual inspection and trachea midline Thyroid: normal thyroid Respiratory: + respiratory distress, + labored breathing, + uses accessory muscles, + cough, + prolonged expiratory phase, + audible wheezes and + pursed lip breathing Cardiovascular: Rate/Rhythm: + tachycardic Heart Sounds: normal S1 and normal S2 Palpation: normal PMI Gastrointestinal (Abdomen): normal bowel sounds, soft, nontender, no hepatosplenomegaly Musculoskeletal: Head/Neck/Chest: head atraumatic and neck supple Spine: + lumbar spinal tenderness Shoulder: + limited ROM Skin: + turgor decreased and + skin atrophy Neurologic: PERRL, EOMI, accommodation nl, no face palsy, no dysarthria Psychiatric: Orientation: alert and oriented x 3 Apperance: appropriately dressed Eye Contact: good eye contact Speech: normal rate/rhythm/volume of speech Affect: + anxious affect Mood: + anxious mood Thought Process: goal directed thought process and clear/coherent thought process Cognition: recent memory grossly intact Estimated Intelligence: consistent with education level Insight: good insight Judgement: good judgement Results & Data ([facility]) Vital Signs (Past 12 Hours) Vital Signs Temp Pulse Pulse Resp BP Pulse Ox O2 Del Method 10/13/22 11:07 18 Nasal Cannula 10/13/22 10:51 36.8 C 69 19 132/70 95 Nasal Cannula 10/13/22 08:30 Nasal Cannula 10/13/22 07:59 36.5 C 73 16 134/70 100 Nebulizer 10/13/22 07:08 69 10/13/22 07:09 82 18 92 Nasal Cannula 10/13/22 03:32 36.5 C 80 18 160/76 H 93 Nasal Cannula 10/13/22 02:24 78 18 94 Nasal Cannula O2 Flow Rate FiO2 10/13/22 11:07 2 93 10/13/22 10:51 2 10/13/22 08:30 2 10/13/22 07:59 10/13/22 07:08 10/13/22 07:09 2 10/13/22 03:32 2 10/13/22 02:24 3 PG Care Time/CCT Total # of Minutes Spent Total Time Spent: 65 Total Time Spent with Patient: Total time spent is greater than 50% in coordination of care (as documented) at patient's floor/unit and/or counseling patient: I spent 65 minutes overall addressing this case: 5 in medical data review/discussion with referring provider(s) and/or preparation for the visit 40 in direct interaction with the patient 10 Advance Care Planning/Goals of Care discussions as detailed above in note (must be >16min) 5 in subsequent review and synthesis of assessment and plan 5 in communicating with other providers regarding the patient's case: Prolonged Care Time Prolonged Care Time: No Critical Care Time: No [place] [address] SUB INP/OBS CARE 3/50MIN Patient Type Established History Comprehensive Exam Detailed Medical Decision Making Moderate Complexity Diagnoses Palliative care encounter Z51.5 Advanced care planning/counseling discussion Z71.89 Dyspnea and respiratory abnormalities R06.00; R06.89 Air hunger R09.89 Panic attack as reaction to stress F41.0; F43.0 RSV (respiratory syncytial virus infection) B33.8 Acute exacerbation of chronic obstructive pulmonary disease J44.1 Acute on chronic respiratory failure with hypoxia and hypercapnia J96.21; J96.22
[2022-10-13] MEDS: LORazepam 0.5 MG TAB PO PRN (14:19)
[2022-10-13] MEDS: MoRPHine SULFATE 10 MG/0.5 ML UDP PO PRN (20:10)
[2022-10-13] MEDS: QUEtiapine FUMARATE 200 MG TAB PO SCH (20:43)
[2022-10-13] MEDS: MIRTAZAPINE TAB 15 MG TAB PO SCH (20:44)
[2022-10-13] MEDS: LANTUS PER UNIT CHARGE SQ SCH (20:51)
[2022-10-14] MEDS: INSULIN ASPART PER UNIT SC SCH ×6 (00:26→20:50)
[2022-10-14] MEDS: ALBUT/IPRATROP 3MG/0.5MG NEB 3 ML VIAL NEB SCH ×6 (03:29→22:33)
[2022-10-14] MEDS: MoRPHine SULFATE 10 MG/0.5 ML UDP PO PRN (06:01)
[2022-10-14] MEDS: LEVOTHYROXINE SODIUM 25 MCG TABLET PO SCH (06:39)
[2022-10-14] MEDS: SODIUM CHLOR 7% 4 ML NEB NEB SCH ×2 (07:05→19:20)
[2022-10-14] MEDS: FORMOTEROL 20 MCG/2 ML VIAL NEB SCH ×2 (07:18→19:23)
[2022-10-14] MEDS: BUDESONIDE 0.5 MG/2 ML VIAL (PULMICORT) INH SCH ×2 (07:19→19:23)
--- NOTE | 2022-10-14 08:29 | Palliative Care Progress Note ---
Date of Service October 14, 2022 Assessment & Plan (1) Palliative care encounter: Plan: Dyspnea mgt underway. She tolerated low dose roxanol 2.5mg. (2) Advanced care planning/counseling discussion: Plan: Mini continues to express a wish to return home when stable. She is comfortable with her caregivers and the assistance she has from her neighbor. She does not wish to change her current plan of care. She does not wish to go to a fdc or any kind of rehab. She acknowledges that her lung disease is reaching end stages and wants to focus what ever time she may have with the people she loves the most. 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 Will continue 2.5 mg for now, plan to titrate up as needed Psychosocial support and reassurance provided. She remains hospice eligible and hospice appropriate, however she is not ready to accept nor embrace a hospice philosophy of care at this time. Dia Zhang DNP Clinical Director, Palliative Medicine Admission and Anticipated Discharge Date Admission Date: October 07, 2022 Subjective PRN morphine is helping with air hunger and rib pain. Anxiety did not escalate when dyspnea was relieved. pt feeling more hopeful about symptom mgt. Review of Systems Review of Systems: All systems reviewed & are unremarkable except as noted in Subjective Physical Exam Constitutional: + ill appearing, + obese and cooperative Eyes: PERRL, conjunctivae normal, anicteric sclerae ENMT: Ears: + hearing impairment Mouth: + dry oral mucous membranes, + poor dentition and + chipped teeth Throat: uvula midline Neck: normal visual inspection and trachea midline Thyroid: normal thyroid Respiratory: + respiratory distress, + labored breathing, + uses accessory muscles, + cough, + prolonged expiratory phase, + audible wheezes and + pursed lip breathing Cardiovascular: Rate/Rhythm: + tachycardic Heart Sounds: normal S1 and normal S2 Palpation: normal PMI Gastrointestinal (Abdomen): normal bowel sounds, soft, nontender, no hepatosplenomegaly Musculoskeletal: Head/Neck/Chest: head atraumatic and neck supple Spine: + lumbar spinal tenderness Shoulder: + limited ROM Skin: + turgor decreased and + skin atrophy Neurologic: PERRL, EOMI, accommodation nl, no face palsy, no dysarthria Psychiatric: Orientation: alert and oriented x 3 Apperance: appropriately dressed Eye Contact: good eye contact Speech: normal rate/rhythm/volume of speech Affect: + anxious affect Mood: + anxious mood Thought Process: goal directed thought process and clear/coherent thought process Cognition: recent memory grossly intact Estimated Intelligence: consistent with education level Insight: good insight Judgment: good judgement Results & Data ([facility]) Vital Signs (Past 12 Hours) Vital Signs Temp Pulse Pulse Resp BP Pulse Ox Pulse Ox 10/14/22 07:43 36.9 C 74 20 135/63 96 10/14/22 07:07 73 10/14/22 07:06 70 16 96 10/14/22 03:29 67 18 94 10/14/22 03:08 36.3 C L 68 16 131/60 94 10/14/22 03:00 94 10/13/22 23:37 36.8 C 77 20 162/81 H 94 10/13/22 23:13 76 10/13/22 21:00 10/13/22 22:00 81 20 93 O2 Del Method O2 Del Method O2 Flow Rate O2 Flow Rate 10/14/22 07:43 Nasal Cannula 2 10/14/22 07:07 10/14/22 07:06 Nasal Cannula 2 10/14/22 03:29 Nasal Cannula 2 10/14/22 03:08 Nasal Cannula 2 10/14/22 03:00 Nasal Cannula 2 10/13/22 23:37 Nasal Cannula 2 10/13/22 23:13 10/13/22 21:00 Nasal Cannula 2 10/13/22 22:00 Nasal Cannula 2 PG Care Time/CCT Total # of Minutes Spent Total Time Spent: 45 Total Time Spent with Patient: Total time spent is greater than 50% in coordination of care (as documented) at patient's floor/unit and/or counseling patient: Coding [place] [address] SUB INP/OBS CARE 3/50MIN Patient Type Established History Comprehensive Exam Detailed Medical Decision Making Moderate Complexity Diagnoses Palliative care encounter Z51.5 Advanced care planning/counseling discussion Z71.89 Dyspnea and respiratory abnormalities R06.00; R06.89 Air hunger R09.89 Panic attack as reaction to stress F41.0; F43.0 RSV (respiratory syncytial virus infection) B33.8 Acute exacerbation of chronic obstructive pulmonary disease J44.1 Acute on chronic respiratory failure with hypoxia and hypercapnia J96.21; J96.22
[2022-10-14] MEDS: LANTUS PER UNIT CHARGE SQ SCH ×2 (08:32→20:51)
--- NOTE | 2022-10-14 08:32 | Hospitalist Progress Note ---
Date of Service October 14, 2022 Assessment & Plan (1) Acute respiratory failure with hypoxia: Plan: Acute on chronic COPD exacerbation 2/2 RSV. Former tobacco use, [id number] smoking history quit 2011 Gold class D previously on MWF azithromycin COVID/Flu NEGATIVE on admit, however POSITIVE RSV -- maintaining isolation precautions Biro 02/2022: FVC 1.32 50%, FEV1 0.6 332%, FEV1/FVC 47% Recently completed course Doxycycline -- QTC prolonged on admit EKG, improved on repeat. Azithromycin for COPD exacerbation -- completed 5 day course Nebs - scheduled duoneb q4 in addition to performomist, hypertonic saline Continue mucinex, incentive spirometer, flutter valve, chest PT, tessalon pearls for cough. Sputum if able to produce PPV HS 10/14 Attempts to wean off IV methylprednisolone ineffective and patient w/ panic at tack afternoon and reported chest pain 10/11 and moved to telemetry trop negative x 3, EKG unchanged, moved to tele, no recurrence of her afib. ECHO unchanged from 24 years prior Overnight 10/11-10/12 another what appears to be panic symptoms and unable to tolerate BiPAP and requesting ATC nebulizers/difficulty catching her breath and placed back on methylprednisolone 40mg IV TID Decision to continue for 24-48 hours to prevent rebound, discussed Ativan as needed for anxiety and had been effective but also consultation w/ palliative and roxanol ordered for air hunger. Not ready for palliative/hospice just yet but needing continued discussions. Appears admitted last year >10 times, notes back to 2018 w/ significant anxiety noted even back then Given dose of lasix for slight volume overload 10/12 and hyperkalemia (spironolactone on hold) --> improvement but then again a little more swollen since holding and additional lasix for today Discussed combination lasix/spironolactone for volume management and prevention of hyperkalemia Continue roxanol/ativan prn air hunger/anxiety as large driving component- see palliative note, appreciate assistance -- benefit from POLST prior to d/c Decreasing Solumedrol IV to 30mg TID for today, consider to 20mg TID tomorrow vs switching to prednisone. Pharmacy notified and assisting with blood sugars Monitor response to decreased steroids. Strongly encourage controlled of anxiety symptoms. (2) KATHLEEN (generalized anxiety disorder): Plan: SUSPECT LARGE COMPONENT DRIVING WORSENING SOB SYMPTOMS given her chronic respiratory failure at baseline/emphysema. Palliative on consult. Per review of notes back to w/ large component of anxiety even back then suspected as a driving force Continue mirtazapine 30 nightly, Seroquel 200 nightly. Improvement in symptoms w/ ativan --> 0.5mg PO BID prn available -- discussed and can decrease dose and increase frequency if needed as well. Roxanol for air hunger per palliative [facility] liaison consulted for support as well as palliative care (3) CHF (congestive heart failure): Plan: CHF Echo 09/2022: EF 65 to 70%, RVSP 41%, RV normal in size and function BNP normal, troponin normal, EKG without acute changes, no chest pain on admission Admitting EKG: Normal sinus rhythm, poor quality tracing, QTC 684 prolonged, QT lengthened (improved on repeat EKG) BNP not elevated x 2 -- ? low natriuretic peptide in prior studies noted in patients w/ obesity and CHF Repeat ECHO for eval given CP complaints as above -->UNCHANGED compared to prior obtained 24 years ago--> LV systolic function is normal. LV wall motion is normal. Trop negative x3 Spironolactone resumed, but placed on hold given hyperkalemia and occurred again after resuming Tolerating lasix w/ improvement while off spironolactone. K 5.5 on am labs, lasix 40mg PO x 1 and repeating labs this afternoon Consider low dose lasix WITH her spironolactone to prevent hyperkalemia in the future Monitor weights/I&O (4) Anemia: Plan: Anemia, Microcytic Of note, prior hgbs stable but chronically low over past 1-1.5 years in the 8-9s . TSH wnl On Protonix BID,denied NSAID use/aleeve/ibuprofen -- stated hx >20yr ago ulcerations from stress. EGD in system 2018 w/ Grade B reflux esophagitis w/ Case Checked iron stores as well as B12/folate for completeness. On PO iron at home (or supposed to be), however did have report of melena in stool . asked to check fecal occult if able Iron studies: iron 13, trans % sat LOW 4--> s/p Venofer 300mg iv x 3 doses inpatient B12 borderline low at 318 - given IM x 2 and continued on oral daily, rec continue at d/c Folate borderline low at 6.4 -- oral replacement started -- continue at d/c GI consulted -- can arrange outpt f/u. Strongly encouraged. Prior note saying patient REFUSED, however likely patient did not understand purpose of obtaining Xarelto resumed given stability of hgb over past two years, hx PE/DVT -- will keep at current dose, however she states PE/DVT in 2018, likely not to need PE/DVT dosing tx - will need f/u PCP Hgb stable on repeat/no further bleeding reported -- ? lab error 10/13 vs volume overload from holding her spironolactone and improved/stable w/ lasix on 10/13 (5) Atrial fibrillation: Plan: hx paroxysmal afib, given EKG NSR on admit On xarelto, continued at 20mg given PE/DVT hx reported TSH wnl Trop negative x 3 for reported chest discomfort 10/11 NSR ON TELEMETRY keep mag ~2, K~4 --> K 5.2 on labs 10/12 -- remains on low K diet. Did get 1x dose lokelma prior, giving lasix as outlined while holding spironolactone Remains on tele-- NSR in 70s (6) Hypothyroid: Plan: On synthoid 25mcg daily TSH wnl (7) VIJAY (obstructive sleep apnea): Plan: PPV at home nightly Continue qhs (8) Diabetes: Plan: DM2 - A1c 7.5 Pharmacy consulted, had dropped low the other morning as over corrected Needs trending down when switched to prednisone but then overnight placed back on Solumedrol and BSGs to 300s AM 10/12 Pharmacy assisting with management w/ cautious note about over correcting when not on IV steroids --> unfortunately BSGs improved in evening, but into 300s overnight and again 333 this morning asked RN to contact pharmacy/consideration for daily NPH while on steroids (9) Hyperkalemia: Plan: Elevated 10/08, spironolactone held and diet changed to low potassium w/ normalization on repeat and this was resumed to prevent volume overload however see above Lasix for this morning, continue to hold spironolactone BMP this afternoon/additional lasix as needed Consideration for low dose diuretic to keep volume status stable/prevention of hyperkalemia at discharge (10) Acute exacerbation of chronic obstructive pulmonary disease: Plan: as above (11) Acute on chronic respiratory failure with hypoxia and hypercapnia: (12) Chronic respiratory failure with hypoxia: (13) COPD (chronic obstructive pulmonary disease): (14) Major depression, recurrent, full remission: (15) Pulmonary embolism: Plan: Stated occurred before 2016, has IVC filter in place Remains on xarelto 20mg daily rec f/u PCP/consideration to decrease to 15mg however do not have the cause as to why she had the DVT/PE in first place. Hx ovarian ca/septic thrombophlebitits listed in chart DVT prophylaxis: Xarelto continued Plan continued inpatient stay continuing IV steroids for now, decreasing to 30mg IV TID Lasix for volume/hyperkalemia and repeat labs this afternoon Ativan/roxanol for anxiety/air hunger -- palliative following -- benefit from POLST prior to discharge Admission and Anticipated Discharge Date Admission Date: October 07, 2022 Supervising Physician Co-Signing Physician Notes Attending Attestation - Chart reviewed, care plan d/w PA Sylvia Fernandez. I agree w/ the pichardo components of her documentation. Gualberto Landrum MD Subjective eval this morning, states breathing stable/improved roxanol effective for air hunger and can continue. she does report some itching, will try dose visatril, she notes tried in the past. discussed decreased edema in legs and will use lasix for today, especially given elevated potassium and discussed may be more beneficial to have a combination of these agents to manage her volume status. Decreased IV steroids slightly to 30mg TID to prevent rebound like day prior and will continue diuresis and tx for anxiety. No fever/chills, chest pain, abdominal pain or nausea. Upset about nursing telling her unable to get shower yesterday and discussed will ensure able to get one after lunch -- discussed with her RN and will attempt after lunch per patient request. Questions/concerns addressed at this time. Review of Systems Review of Systems: All systems reviewed & are unremarkable except as noted in HPI & below Physical Exam Physical Exam: General: chronically ill appearing female resting in bed upon entry, NAD, less fatigued Resp: not tachypneic, on usual 2L, decreased end expiratory wheezing primarily to posterior lung max, diminished in the bases CV: regular rate/rhythm, no m/r/g, trace LE edema, calves nontender, pulses palpable GI:+BS, soft/NT : no heller MSK/Neuro: moves all extremities, no focal deficit Psych: AOx3, cooperative Results & Data Results & Data ([facility]) Vital Signs (Past 12 Hours) Vital Signs Temp Pulse Pulse Resp BP Pulse Ox Pulse Ox 10/14/22 07:43 36.9 C 74 20 135/63 96 10/14/22 07:07 73 10/14/22 07:06 70 16 96 10/14/22 03:29 67 18 94 10/14/22 03:08 36.3 C L 68 16 131/60 94 10/14/22 03:00 94 10/13/22 23:37 36.8 C 77 20 162/81 H 94 10/13/22 23:13 76 10/13/22 21:00 10/13/22 22:00 81 20 93 O2 Del Method O2 Del Method O2 Flow Rate O2 Flow Rate 10/14/22 07:43 Nasal Cannula 2 10/14/22 07:07 10/14/22 07:06 Nasal Cannula 2 10/14/22 03:29 Nasal Cannula 2 10/14/22 03:08 Nasal Cannula 2 10/14/22 03:00 Nasal Cannula 2 10/13/22 23:37 Nasal Cannula 2 10/13/22 23:13 10/13/22 21:00 Nasal Cannula 2 10/13/22 22:00 Nasal Cannula 2 Laboratory Results 10/14/22 10/14/22 10/14/22 Range/Units 11:33 08:48 08:48 WBC 13.94 H (4.8-10.8) K/ul RBC 4.28 (4.20-5.40) M/uL Hgb 10.5 L (12.0-16.0) g/dl Hct 35.2 L (37.0-47.0) % MCV 82.2 (80.0-100.0) fL MCH 24.5 L (25.0-34.0) pg MCHC 29.8 L (32.0-36.0) g/dL RDW Std Deviation 62.4 H (36.4-46.3) fL RDW Coeff of Jame 22.3 H (11.5-14.5) % Plt Count 374 (130-400) K/uL MPV 8.5 L (9.4-12.4) fL Absolute Nucleated RBC 0.02 (0-0.12) K/uL Nucleated RBC % (auto) 0.1 % Sodium 137 (136-145) mmol/L Potassium 5.5 H (3.5-5.1) mmol/L Chloride 98 (98-107) mmol/L Carbon Dioxide 36 H (21-32) mmol/L Anion Gap 3 (3-11) BUN 44 H (6-23) mg/dl Creatinine 1.00 (0.6-1.2) mg/dl Est Cr Clr Drug Dosing 51.4 ml/min Est GFR ( Amer) 62.5 ml/min Est GFR (Non-Af Amer) 53.9 ml/min BUN/Creatinine Ratio 44.0 H (10-20) Glucose 269 H (70-99(Fasting)) mg/dl POC Glucose 226 H (70-99) mg/dl Calcium 9.3 (8.5-10.1) mg/dl Total Bilirubin 0.4 (0.2-1.0) mg/dl AST 36 (13-39) U/L ALT 60 H (7-52) U/L Alkaline Phosphatase 73 (34-104) U/L Total Protein 6.0 (6.0-8.3) gm/dl Albumin 3.6 (3.4-5.0) gm/dl Globulin 2.4 L (2.5-4.0) gm/dl Albumin/Globulin Ratio 1.5 (0.9-2) Urine Legionella Ag 10/14/22 10/14/22 10/14/22 Range/Units 07:40 03:43 00:21 WBC (4.8-10.8) K/ul RBC (4.20-5.40) M/uL Hgb (12.0-16.0) g/dl Hct (37.0-47.0) % MCV (80.0-100.0) fL MCH (25.0-34.0) pg MCHC (32.0-36.0) g/dL RDW Std Deviation (36.4-46.3) fL RDW Coeff of Jame (11.5-14.5) % Plt Count (130-400) K/uL MPV (9.4-12.4) fL Absolute Nucleated RBC (0-0.12) K/uL Nucleated RBC % (auto) % Sodium (136-145) mmol/L Potassium (3.5-5.1) mmol/L Chloride (98-107) mmol/L Carbon Dioxide (21-32) mmol/L Anion Gap (3-11) BUN (6-23) mg/dl Creatinine (0.6-1.2) mg/dl Est Cr Clr Drug Dosing ml/min Est GFR ( Amer) ml/min Est GFR (Non-Af Amer) ml/min BUN/Creatinine Ratio (10-20) Glucose (70-99(Fasting)) mg/dl POC Glucose 230 H 223 H 162 H (70-99) mg/dl Calcium (8.5-10.1) mg/dl Total Bilirubin (0.2-1.0) mg/dl AST (13-39) U/L ALT (7-52) U/L Alkaline Phosphatase (34-104) U/L Total Protein (6.0-8.3) gm/dl Albumin (3.4-5.0) gm/dl Globulin (2.5-4.0) gm/dl Albumin/Globulin Ratio (0.9-2) Urine Legionella Ag 10/13/22 10/13/22 10/11/22 Range/Units 20:21 16:22 21:00 WBC (4.8-10.8) K/ul RBC (4.20-5.40) M/uL Hgb (12.0-16.0) g/dl Hct (37.0-47.0) % MCV (80.0-100.0) fL MCH (25.0-34.0) pg MCHC (32.0-36.0) g/dL RDW Std Deviation (36.4-46.3) fL RDW Coeff of Jame (11.5-14.5) % Plt Count (130-400) K/uL MPV (9.4-12.4) fL Absolute Nucleated RBC (0-0.12) K/uL Nucleated RBC % (auto) % Sodium (136-145) mmol/L Potassium (3.5-5.1) mmol/L Chloride (98-107) mmol/L Carbon Dioxide (21-32) mmol/L Anion Gap (3-11) BUN (6-23) mg/dl Creatinine (0.6-1.2) mg/dl Est Cr Clr Drug Dosing ml/min Est GFR ( Amer) ml/min Est GFR (Non-Af Amer) ml/min BUN/Creatinine Ratio (10-20) Glucose (70-99(Fasting)) mg/dl POC Glucose 137 H 132 H (70-99) mg/dl Calcium (8.5-10.1) mg/dl Total Bilirubin (0.2-1.0) mg/dl AST (13-39) U/L ALT (7-52) U/L Alkaline Phosphatase (34-104) U/L Total Protein (6.0-8.3) gm/dl Albumin (3.4-5.0) gm/dl Globulin (2.5-4.0) gm/dl Albumin/Globulin Ratio (0.9-2) Urine Legionella Ag SEE NOTE PG Care Time/CCT Total # of Minutes Spent Total Time Spent with Patient: Total time spent is greater than 50% in coordination of care (as documented) at patient's floor/unit and/or counseling patient: Coding Level of Care Code 02170 SUB INP/OBS CARE 3/50MIN Diagnoses Acute respiratory failure with hypoxia J96.01 KATHLEEN (generalized anxiety disorder) F41.1 CHF (congestive heart failure) I50.9 Anemia D64.9 Anemia type: unspecified type Atrial fibrillation I48.91 Hypothyroid E03.9 VIJAY (obstructive sleep apnea) G47.33 Diabetes E11.9; Z79.4 Diabetes mellitus complication status: without complication Diabetes mellitus nursing home insulin use: with nursing home use Diabetes mellitus type: type 2 Hyperkalemia E87.5 Acute exacerbation of chronic obstructive pulmonary disease J44.1 Acute on chronic respiratory failure with hypoxia and hypercapnia J96.21; J96.22 Chronic respiratory failure with hypoxia J96.11 COPD (chronic obstructive pulmonary disease) J44.9 COPD type: unspecified COPD Major depression, recurrent, full remission F33.42 Pulmonary embolism I26.99 (1) Diabetes Diabetes mellitus complication status: without complication Diabetes mellitus patient financial counselor insulin use: with patient financial counselor use Diabetes mellitus type: type 2 Qualified Code(s): E11.9 - Type 2 diabetes mellitus without complications; Z79.4 - senior care (current) use of insulin (2) Anemia Anemia type: unspecified type Qualified Code(s): D64.9 - Anemia, unspecified (3) COPD (chronic obstructive pulmonary disease) COPD type: unspecified COPD Qualified Code(s): J44.9 - Chronic obstructive pulmonary disease, unspecified
[2022-10-14] MEDS: METOPROLOL SUCC 25MG EXT REL TAB PO SCH ×2 (08:33→20:48)
[2022-10-14] MEDS: MAGNESIUM OXIDE 400 MG TAB PO SCH ×2 (08:33→20:49)
[2022-10-14] MEDS: CYANOCOBALAMIN (B-12) 500 MCG TABLET PO SCH (08:33)
[2022-10-14] MEDS: RIVAROXABAN 20 MG TAB PO SCH (08:33)
[2022-10-14] MEDS: PANTOprazole 40 MG TAB PO SCH ×2 (08:33→20:48)
[2022-10-14] MEDS: MONTELUKAST SODIUM 10 MG TABLET PO SCH (08:34)
[2022-10-14] MEDS: FOLIC ACID 400 MCG TAB PO SCH (08:34)
[2022-10-14] MEDS: BENZONATATE 100 MG CAPSULE PO SCH ×3 (08:34→20:47)
[2022-10-14] MEDS: ROFLUMILAST 500 MCG TAB PO SCH (08:34)
[2022-10-14] MEDS: guaiFENesin 600 MG TABCR PO SCH ×2 (08:34→20:49)
[2022-10-14] MEDS: methylPREDNISolone 40 MG in SYRINGE 0 ML IV SCH (08:35)
[2022-10-14 09:10] LABS: Hematocrit (blood only) 35.2 % (37.0-47.0); Hemoglobin 10.5 g/dl (12.0-16.0); Mean Corpuscular Hemoglobin 24.5 pg (25.0-34.0); Mean Corpuscular Hgb Conc 29.8 g/dL (32.0-36.0); Mean Corpuscular Volume 82.2 fL (80.0-100.0); Mean Platelet Volume 8.5 fL (9.4-12.4); Nucleated RBC # (auto) 0.02 K/uL (0-0.12); Nucleated RBC % (auto) 0.1 %; Platelet Count 374 K/uL (130-400); RDW Coefficient of Variation 22.3 % (11.5-14.5); RDW Standard Deviation 62.4 fL (36.4-46.3); Red Blood Count 4.28 M/uL (4.20-5.40); White Blood Count 13.94 K/ul (4.8-10.8)
[2022-10-14 09:26] LABS: Albumin Globulin Ratio 1.5 (0.9-2); Albumin Level 3.6 gm/dl (3.4-5.0); Bilirubin,Total 0.4 mg/dl (0.2-1.0); Calcium 9.3 mg/dl (8.5-10.1); Creatinine Clr Calc Pharmacy 51.4 ml/min; Est GFR (African American) 62.5 ml/min; Est GFR (Non-African American) 53.9 ml/min; Globulin 2.4 gm/dl (2.5-4.0); Potassium 5.5 mmol/L (3.5-5.1)
[2022-10-14] MEDS ORDERED: FUROSEMIDE INJ 20 MG/2 ML VIAL IV ONE (09:40)
[2022-10-14] MEDS ORDERED: hydrOXYzine HCl 25 MG TAB PO STA (09:40)
[2022-10-14] MEDS: methylPREDNISolone 30 MG in SYRINGE 0 ML IV SCH ×2 (14:26→20:49)
[2022-10-14 17:03] LABS: BUN Creatinine Ratio 40.2 (10-20); Calcium 9.6 mg/dl (8.5-10.1); Est GFR (African American) 57.6 ml/min; Est GFR (Non-African American) 49.7 ml/min; Potassium 4.6 mmol/L (3.5-5.1)
[2022-10-14] MEDS: MIRTAZAPINE TAB 15 MG TAB PO SCH (20:48)
[2022-10-14] MEDS: QUEtiapine FUMARATE 200 MG TAB PO SCH (20:48)
[2022-10-15] MEDS ORDERED: INSULIN ASPART PER UNIT SC SCH (02:00)
[2022-10-15] MEDS: ALBUT/IPRATROP 3MG/0.5MG NEB 3 ML VIAL NEB SCH ×6 (03:24→22:35)
[2022-10-15] MEDS: MoRPHine SULFATE 10 MG/0.5 ML UDP PO PRN ×2 (04:05→18:10)
[2022-10-15] MEDS: LORazepam 0.5 MG TAB PO PRN ×2 (05:57→20:36)
[2022-10-15] MEDS: LEVOTHYROXINE SODIUM 25 MCG TABLET PO SCH (05:57)
[2022-10-15 06:56] LABS: Hematocrit (blood only) 33.4 % (37.0-47.0); Hemoglobin 10.1 g/dl (12.0-16.0); Mean Corpuscular Hemoglobin 24.5 pg (25.0-34.0); Mean Corpuscular Hgb Conc 30.2 g/dL (32.0-36.0); Mean Corpuscular Volume 80.9 fL (80.0-100.0); Mean Platelet Volume 8.7 fL (9.4-12.4); Nucleated RBC # (auto) 0.02 K/uL (0-0.12); Nucleated RBC % (auto) 0.1 %; Platelet Count 391 K/uL (130-400); RDW Coefficient of Variation 22.5 % (11.5-14.5); Red Blood Count 4.13 M/uL (4.20-5.40); White Blood Count 14.24 K/ul (4.8-10.8)
[2022-10-15] MEDS: SODIUM CHLOR 7% 4 ML NEB NEB SCH ×2 (07:01→19:19)
[2022-10-15] MEDS: BUDESONIDE 0.5 MG/2 ML VIAL (PULMICORT) INH SCH ×2 (07:17→19:19)
[2022-10-15] MEDS: FORMOTEROL 20 MCG/2 ML VIAL NEB SCH ×2 (07:17→19:19)
[2022-10-15 07:29] LABS: Calcium 9.1 mg/dl (8.5-10.1); Creatinine Clr Calc Pharmacy 47.4 ml/min; Est GFR (African American) 56.3 ml/min; Est GFR (Non-African American) 48.6 ml/min; Potassium 5.1 mmol/L (3.5-5.1)
[2022-10-15] MEDS: methylPREDNISolone 30 MG in SYRINGE 0 ML IV SCH ×3 (08:40→20:36)
[2022-10-15] MEDS: FUROSEMIDE 40 MG TAB PO SCH (08:41)
[2022-10-15] MEDS: RIVAROXABAN 20 MG TAB PO SCH (08:41)
[2022-10-15] MEDS: MAGNESIUM OXIDE 400 MG TAB PO SCH ×2 (08:41→20:35)
[2022-10-15] MEDS: METOPROLOL SUCC 25MG EXT REL TAB PO SCH ×2 (08:41→20:35)
[2022-10-15] MEDS: MONTELUKAST SODIUM 10 MG TABLET PO SCH (08:41)
[2022-10-15] MEDS: ROFLUMILAST 500 MCG TAB PO SCH (08:41)
[2022-10-15] MEDS: guaiFENesin 600 MG TABCR PO SCH ×2 (08:41→20:35)
[2022-10-15] MEDS: FOLIC ACID 400 MCG TAB PO SCH (08:41)
[2022-10-15] MEDS: CYANOCOBALAMIN (B-12) 500 MCG TABLET PO SCH (08:41)
[2022-10-15] MEDS: PANTOprazole 40 MG TAB PO SCH ×2 (08:41→20:35)
[2022-10-15] MEDS: LANTUS PER UNIT CHARGE SQ SCH ×2 (08:44→20:36)
[2022-10-15] MEDS: BENZONATATE 100 MG CAPSULE PO SCH ×3 (08:44→20:35)
[2022-10-15] MEDS: INSULIN ASPART PER UNIT SC SCH ×4 (08:45→20:37)
--- NOTE | 2022-10-15 15:22 | Pharmacy Report ---
Pharmacy Glycemic Short Note 2 - Date of Service October 15, 2022 - Glycemic Short BSG Results (Last 24 hours): 10/14/22 10/14/22 10/14/22 15:55 16:14 20:28 Glucose 111 H POC Glucose 103 H 136 H 10/15/22 10/15/22 10/15/22 01:55 06:16 07:42 Glucose 270 H POC Glucose 249 H 250 H 10/15/22 11:12 Glucose POC Glucose 127 H OUTPATIENT ANTIDIABETIC REGIMEN: * Metformin 500mg PO BID * Lantus 15 units SQ HS * Humalog 12 units TIDM HbA1C: 7.5% (09/17/22) ASSESSMENT: 10/15/22 * Patient received 131 units of insulin yesterday, of which 40 units were basal insulin * Fasting elevated 270 mg/dL - will increase basal 30% today * Steroids decreasing from yesterday, may loosen parameters for novolog slightly 10/13/22 * Patient received 118 units of insulin yesterday, of which 30 units were basal * Fasting BSG elevated at 266 mg/dL - will increase basal ~30% today * Continue with tighter CR breakfast, dinner, HS - will have looser CR with lunch as BSGs tend to drop from lunch to dinner 10/12/22 * Patient's BSGs yesterday were [phone] mg/dL. Patient received 76 units of insulin (15 units of basal and 61 units of bolus). * Patient received prednisone 60 mg PO yesterday. * Patient received 60 mg of Solu-Medrol at 0400 today plus started on Solu- Medrol 40 mg IV TID (starting at 1400). * Based upon the above steroids, restart Lantus 15 units BID. Tighten Novolog to CR of 3. * Overnight checks are also ordered to bring down fasting BSGs. Caution of overutilization of Lantus as needs drastically decreased when transition to PO prednisone. 10/10/22 * Mini received a total of 106 units of insulin yesterday with fluctuating BSG control. Patient had hypoglycemia at dinner (BSG 51 mg/dL) * 30 units Lantus * 76 units Novolog * BSGs: 228, 92, 110, 51, 195 mg/dL * Fasting of 81 mg/dL today. This is a drastic change compared to 228 mg/dL yesterday. This is likely due to transition from Solu medrol to once daily prednisone. * Post prandial BSGs mostly below goal with the exception of HS. Patient had asymptomatic hypo at lunchtime. Will further loosen novolog parameters. * Typically once daily prednisone is managed well with a once daily dose of NPH. However, given that this patient is already on Lantus and Novolog, I will attempt to manage steroid induced hyperglycemia without NPH at this time. If poor glycemic control over the next 24 hours considering adding NPH qam and decreasing Lantus to home dose of 15 units HS. 10/09/22 * Patient's BSGs yesterday were [phone] mg/dL. Patient received 96 units of insulin (30 units of basal and 66 units of bolus). * Fasting BSG today is 228-110 mg/dL. * Patient was on Solu-Medrol 40 mg IV TID which was transitioned to Solu-Medrol 40 mg IV x 1 with prednisone 20 mg PO x 1 on 10/09/22. Patient will then be on prednisone 60 mg daily starting on 10/10/22. * Due to fasting BSG, give Lantus 20 units this AM and 10 units this PM (total of 30 units still). This is above patient's home dose of 15 units HS, but patient still has significant steroid use. Expect fasting to not be as elevated tomorrow due to no PM steroid use. Re-evaluate basal tomorrow. * Continue Novolog since steroids decreased. BASELINE * Patient is a 77 YO female with DM2 well known to the glycemic pharmacy service admitted with a COPD exacerbation. Pharmacy consulted to assist with glycemic management. * BSGs 124-256mg/dL since arrival. Received Solu Medrol 125mg X 1 in the ED, and scheduled on 40mg IV TID to begin tomorrow AM. Heart healthy diet ordered. * Based upon historical admission data (patient receiving Solu Medrol 40mg IV TID), will initiate Lantus per scale 15-20 units BID depending on BSG. Novolog will be initiated with a correction factor of 20mg/dL/unit and carb ratio of 5 unit/gm. PLAN FOR INPATIENT GLYCEMIC CONTROL: * Hold outpatient oral diabetes medications * Basal insulin - increase * Lantus 30 units Qam * Lantus 20 units Qpm * Bolus insulin * NovoLog per scale ACHS or Q6hrs while NPO * Goal Range: Low 110 mg/dL - High 140 mg/dL * Correction Factor: 15 mg/dL/unit * Nutritional / Prandial insulin per carb ratio of 1 unit per 3 grams CHO consumed - CR of 6 at lunch time check
--- NOTE | 2022-10-15 20:31 | Hospitalist Progress Note ---
Date of Service October 15, 2022 Assessment & Plan (1) Acute on chronic respiratory failure with hypoxia and hypercapnia: Plan: acute component 2nd to COPD exacerbation in setting of RSV infection. slow improvement. (2) Acute exacerbation of chronic obstructive pulmonary disease: Plan: 2nd to RSV infection. cont solumedrol - no wean today. cont pulmonary toilet. cont BIPAP HS. daytime O2. mucinex BID. cont usual inhalers. cont q4h duonebs. tessalon TID. cont vibration vest + flutter + etc. cont roflumilast daily. (3) KATHLEEN (generalized anxiety disorder): Plan: Cont ativan 0.5mg BID prn available Consider bupsar BID-TID (4) CHF (congestive heart failure): Plan: Echo 09/2022: EF 65 to 70%, RVSP 41%, RV normal in size and function acute/chronic diastolic CHF - appears compensated today cont lasix but hold aldactone (5) Anemia: Plan: Iron studies: iron 13, transferrin saturation 4%, ferritin <10 earlier this month s/p Venofer 300mg IV x 3 doses inpatient B12 borderline low at 318 - given IM x 2 and continued on oral daily, rec continue at d/c Folate borderline low at 6.4 -- oral replacement started -- continue at d/c Given Fe deficiency GI was consulted -- can arrange outpt f/u for EGD, etc. Xarelto resumed given stability of Hb. Used for h/o DVT/PE in 2018 and a.fib. (6) Atrial fibrillation: Plan: hx paroxysmal afib examines in NSR today Cont Xarelto 20mg daily (7) Hypothyroid: Plan: On synthoid 25mcg daily TSH wnl (8) VIJAY (obstructive sleep apnea): Plan: BIPAP HS (9) Diabetes: Plan: HbA1c 7.5% Pharmacy glycemic consult appreciated Cont basal-bolus insulin regimen (10) Hyperkalemia: Plan: high-normal or slightly high for several weeks could represent element of volume contraction given her high BUN repeat BMP am avoid DOE/ARB would not resume aldactone (11) Chronic respiratory failure with hypoxia: Plan: on home O2 2 L continuously (12) Major depression, recurrent, full remission: Plan: cont seroquel 200mg HS (13) Pulmonary embolism: Plan: h/o DVT/PE in [address] Remains on xarelto 20mg daily Also with Hx ovarian ca/septic thrombophlebitis as listed in chart Plan DNR/DNI appreciate palliative care consult PT, OT as tolerated Admission and Anticipated Discharge Date Admission Date: October 07, 2022 Subjective patient resting in bed watching TV during the visit tele overnight with NSR she continues with harsh cough, wheezing, dyspnea with minimal exertion some sputum but not much eating "very well" no chest pain no orthopnea Review of Systems Review of Systems: gen - no fevers; +fatigue cv - no chest pain, no PND pulm - using vibration vest; using BIPAP HS; no hemoptysis GI - no abd pain Physical Exam Physical Exam: gen - NAD, pleasant; when she coughs it is a harsh cough/very bronchial neck - no JVD mouth - MMM heart - RRR, s1 s2 lungs - diffuse wheezing/rhonchi all lung segments; airation fair; scattered rales; no increased work of breathing abd - soft NT ND BS+ ext - pulses 2+ b/l psych - a/o x 3; mildly anxious Results & Data Results & Data ([facility]) Vital Signs (Past 12 Hours) Vital Signs Temp Pulse Pulse Resp BP Pulse Ox O2 Del Method 10/15/22 19:52 37.3 C 74 18 137/69 93 Nasal Cannula 10/15/22 19:19 72 18 93 Nasal Cannula 10/15/22 16:24 36.6 C 75 16 144/70 H 95 Nasal Cannula 10/15/22 15:32 90 10/15/22 14:41 74 18 92 Nasal Cannula 10/15/22 11:53 37.0 C 76 20 152/70 H 92 Nasal Cannula 10/15/22 10:45 75 18 95 Nasal Cannula 10/15/22 08:45 Nasal Cannula O2 Flow Rate 10/15/22 19:52 2 10/15/22 19:19 2 10/15/22 16:24 2 10/15/22 15:32 10/15/22 14:41 2 10/15/22 11:53 2 10/15/22 10:45 2 10/15/22 08:45 2 Laboratory Results Laboratory Results - last 48 hr 10/11/22 10/14/22 10/14/22 21:00 11:33 15:55 WBC RBC Hgb Hct MCV MCH MCHC RDW Std Deviation RDW Coeff of Jame Plt Count MPV Absolute Nucleated RBC Nucleated RBC % (auto) Sodium 137 Potassium 4.6 Chloride 99 Carbon Dioxide 34 H Anion Gap 4 BUN 43 H Creatinine 1.07 Est Cr Clr Drug Dosing 48.0 Est GFR ( Amer) 57.6 Est GFR (Non-Af Amer) 49.7 BUN/Creatinine Ratio 40.2 H Glucose 111 H POC Glucose 226 H Calcium 9.6 Urine Legionella Ag SEE NOTE 10/14/22 10/14/22 10/15/22 16:14 20:28 01:55 WBC RBC Hgb Hct MCV MCH MCHC RDW Std Deviation RDW Coeff of Jame Plt Count MPV Absolute Nucleated RBC Nucleated RBC % (auto) Sodium Potassium Chloride Carbon Dioxide Anion Gap BUN Creatinine Est Cr Clr Drug Dosing Est GFR ( Amer) Est GFR (Non-Af Amer) BUN/Creatinine Ratio Glucose POC Glucose 103 H 136 H 249 H Calcium Urine Legionella Ag 10/15/22 10/15/22 10/15/22 06:16 06:16 07:42 WBC 14.24 H RBC 4.13 L Hgb 10.1 L Hct 33.4 L MCV 80.9 MCH 24.5 L MCHC 30.2 L RDW Std Deviation 63.0 H RDW Coeff of Jame 22.5 H Plt Count 391 MPV 8.7 L Absolute Nucleated RBC 0.02 Nucleated RBC % (auto) 0.1 Sodium 137 Potassium 5.1 Chloride 98 Carbon Dioxide 37 H Anion Gap 2 L BUN 48 H Creatinine 1.09 Est Cr Clr Drug Dosing 47.4 Est GFR ( Amer) 56.3 Est GFR (Non-Af Amer) 48.6 BUN/Creatinine Ratio 44.0 H Glucose 270 H POC Glucose 250 H Calcium 9.1 Urine Legionella Ag 10/15/22 10/15/22 10/15/22 11:12 16:15 20:01 WBC RBC Hgb Hct MCV MCH MCHC RDW Std Deviation RDW Coeff of Jame Plt Count MPV Absolute Nucleated RBC Nucleated RBC % (auto) Sodium Potassium Chloride Carbon Dioxide Anion Gap BUN Creatinine Est Cr Clr Drug Dosing Est GFR ( Amer) Est GFR (Non-Af Amer) BUN/Creatinine Ratio Glucose POC Glucose 127 H 107 H 125 H Calcium Urine Legionella Ag PG Care Time/CCT Total # of Minutes Spent Total Time Spent with Patient: Total time spent is greater than 50% in coordination of care (as documented) at patient's floor/unit and/or counseling patient: Coding Level of Care Code 49643 SUB INP/OBS CARE 235MIN Diagnoses Acute on chronic respiratory failure with hypoxia and hypercapnia J96.21; J96.22 Acute exacerbation of chronic obstructive pulmonary disease J44.1 KATHLEEN (generalized anxiety disorder) F41.1 CHF (congestive heart failure) I50.9 Anemia D64.9 Anemia type: unspecified type Atrial fibrillation I48.91 Hypothyroid E03.9 VIJAY (obstructive sleep apnea) G47.33 Diabetes E11.9; Z79.4 Diabetes mellitus complication status: without complication Diabetes mellitus senior living insulin use: with [employer] use Diabetes mellitus type: type 2 Hyperkalemia E87.5 Chronic respiratory failure with hypoxia J96.11 Major depression, recurrent, full remission F33.42 Pulmonary embolism I26.99 (1) Diabetes Diabetes mellitus complication status: without complication Diabetes mellitus police [employer] precinct insulin use: with police sergeant prec[employer] use Diabetes mellitus type: type 2 Qualified Code(s): E11.9 - Type 2 diabetes mellitus without complications; Z79.4 - tram operator (current) use of insulin (2) Anemia Anemia type: unspecified type Qualified Code(s): D64.9 - Anemia, unspecified
[2022-10-15] MEDS: MIRTAZAPINE TAB 15 MG TAB PO SCH (20:35)
[2022-10-15] MEDS: QUEtiapine FUMARATE 200 MG TAB PO SCH (20:35)
[2022-10-16] MEDS ORDERED: INSULIN ASPART PER UNIT SC SCH (02:00)
[2022-10-16] MEDS: ALBUT/IPRATROP 3MG/0.5MG NEB 3 ML VIAL NEB SCH ×6 (02:21→22:21)
[2022-10-16] MEDS: LEVOTHYROXINE SODIUM 25 MCG TABLET PO SCH (05:32)
[2022-10-16] MEDS: FORMOTEROL 20 MCG/2 ML VIAL NEB SCH ×2 (05:43→19:13)
[2022-10-16] MEDS: SODIUM CHLOR 7% 4 ML NEB NEB SCH ×2 (05:43→19:13)
[2022-10-16] MEDS: BUDESONIDE 0.5 MG/2 ML VIAL (PULMICORT) INH SCH ×2 (05:43→19:13)
[2022-10-16] MEDS: PANTOprazole 40 MG TAB PO SCH ×2 (08:15→20:42)
[2022-10-16] MEDS: MAGNESIUM OXIDE 400 MG TAB PO SCH ×2 (08:15→20:42)
[2022-10-16] MEDS: MONTELUKAST SODIUM 10 MG TABLET PO SCH (08:16)
[2022-10-16] MEDS: RIVAROXABAN 20 MG TAB PO SCH (08:16)
[2022-10-16] MEDS: CYANOCOBALAMIN (B-12) 500 MCG TABLET PO SCH (08:18)
[2022-10-16] MEDS: FUROSEMIDE 40 MG TAB PO SCH (08:18)
[2022-10-16] MEDS: ROFLUMILAST 500 MCG TAB PO SCH (08:18)
[2022-10-16] MEDS: METOPROLOL SUCC 25MG EXT REL TAB PO SCH ×2 (08:18→20:42)
[2022-10-16] MEDS: FOLIC ACID 400 MCG TAB PO SCH (08:19)
[2022-10-16] MEDS: LANTUS PER UNIT CHARGE SQ SCH ×2 (08:22→20:44)
[2022-10-16] MEDS: BENZONATATE 100 MG CAPSULE PO SCH ×3 (08:22→20:42)
[2022-10-16] MEDS: INSULIN ASPART PER UNIT SC SCH ×4 (08:23→20:43)
[2022-10-16 08:57] LABS: Calcium 9.3 mg/dl (8.5-10.1); Potassium 5.2 mmol/L (3.5-5.1)
[2022-10-16 09:02] LABS: BUN Creatinine Ratio 44.3 (10-20); Creatinine Clr Calc Pharmacy 48.7 ml/min; Est GFR (African American) 58.2 ml/min; Est GFR (Non-African American) 50.3 ml/min
[2022-10-16] MEDS ORDERED: PATIROMER CALCIUM SORBITEX 8.4 GM PACK PO ONE (09:29)
[2022-10-16] MEDS: methylPREDNISolone 30 MG in SYRINGE 0 ML IV SCH (09:39)
[2022-10-16] MEDS: guaiFENesin 600 MG TABCR PO SCH ×2 (10:00→20:42)
[2022-10-16] MEDS: LORazepam 0.5 MG TAB PO PRN ×2 (12:59→18:41)
[2022-10-16] MEDS ORDERED: COUGH DROP (SUGAR FREE) LOZ 24 LOZ/1 BOX BUCCAL ONE (18:40)
[2022-10-16] MEDS: QUEtiapine FUMARATE 200 MG TAB PO SCH (20:41)
[2022-10-16] MEDS: methylPREDNISolone 40 MG in SYRINGE 0 ML IV SCH (20:41)
[2022-10-16] MEDS: MIRTAZAPINE TAB 15 MG TAB PO SCH (20:42)
[2022-10-16] MEDS: NYSTATIN SUSP 500,000 U/5 ML UDC PO SCH (20:43)
[2022-10-16] MEDS: busPIRone 5 MG TAB PO SCH (20:43)
[2022-10-16] MEDS: COUGH DROP (SUGAR FREE) LOZ 24 LOZ/1 BOX BUCCAL PRN (20:55)
--- NOTE | 2022-10-16 22:10 | Hospitalist Progress Note ---
Date of Service October 16, 2022 Assessment & Plan (1) Acute on chronic respiratory failure with hypoxia and hypercapnia: Plan: acute component 2nd to COPD exacerbation in setting of RSV infection. slow improvement. changed her steroids from solumedrol 30mg TID to 40mg BID if doing ok tomorrow then 30mg BID and so forth cont nebs, etc (2) Acute exacerbation of chronic obstructive pulmonary disease: Plan: 2nd to RSV infection. cont solumedrol as above. cont pulmonary toilet. cont BIPAP HS. daytime O2. mucinex BID. add cough drops. cont usual inhalers. cont q4h duonebs. tessalon TID. cont vibration vest + flutter + etc. cont roflumilast daily. slow improvement as expected given the RSV infection. (3) KATHLEEN (generalized anxiety disorder): Plan: Severe Cont ativan 0.5mg BID prn Add buspar 5mg BID Cont seroquel (4) CHF (congestive heart failure): Plan: Echo 09/2022: EF 65 to 70%, RVSP 41%, RV normal in size and function acute/chronic diastolic CHF - appears a bit on dry side hold lasix and aldactone for now (5) Anemia: Plan: Iron studies: iron 13, transferrin saturation 4%, ferritin <10 earlier this month s/p Venofer 300mg IV x 3 doses inpatient B12 borderline low at 318 - given IM x 2 and continued on oral daily, rec continue at d/c Folate borderline low at 6.4 -- oral replacement started -- continue at d/c Given Fe deficiency GI was consulted -- can arrange outpt f/u for EGD, etc. Xarelto resumed given stability of Hb. Used for h/o DVT/PE in 2018 and a.fib. (6) Atrial fibrillation: Plan: hx paroxysmal afib remains in NSR Cont Xarelto 20mg daily Cont metoprolol succinate 25mg BID (7) Hypothyroid: Plan: On synthoid 25mcg daily TSH wnl (8) VIJAY (obstructive sleep apnea): Plan: BIPAP HS (9) Diabetes: Plan: HbA1c 7.5% Pharmacy glycemic consult appreciated Cont basal-bolus insulin regimen (10) Hyperkalemia: Plan: high-normal or slightly high for several weeks could represent element of volume contraction given her high BUN repeat BMP am avoid DOE/ARB patiromer x 1 would not resume aldactone (11) Chronic respiratory failure with hypoxia: Plan: on home O2 2 L continuously (12) Major depression, recurrent, full remission: Plan: cont seroquel 200mg HS (13) Pulmonary embolism: Plan: h/o DVT/PE in [address] Remains on xarelto 20mg daily Also with Hx ovarian ca/septic thrombophlebitis as listed in chart Plan DNR/DNI appreciate palliative care consult PT, OT as tolerated slow progress Admission and Anticipated Discharge Date Admission Date: October 07, 2022 Subjective patient very anxious today per nursing has been drinking copious amounts of fluid and asking for ice chips she is eating well continues with cough/congestion/wheezing she asks for cough drops and chewing gum very tearful during the visit tele overnight stable/wnl Review of Systems Review of Systems: gen - tired, fatigued cv - no chest pain pulm - mucous production has slowed GI - no abd pain or nausea Physical Exam Physical Exam: gen - anxious - which is causing tachypnea and pursed lip breathing neck - no JVD mouth - MM dry heart - RRR, s1 s2, no murmur lungs - diffuse wheezing/rhonchi improved today; airation fair; increased work of breathing as above abd - soft NT ND BS+ ext - pulses 2+ b/l, no edema psych - a/o x 3; anxious Results & Data Results & Data ([facility]) Vital Signs (Past 12 Hours) Vital Signs Temp Pulse Pulse Resp BP Pulse Ox O2 Del Method 10/16/22 21:56 Nasal Cannula, BiPAP 10/16/22 19:15 99 H 20 93 Nasal Cannula 10/16/22 19:01 36.8 C 82 18 133/76 99 Room Air 10/16/22 16:00 74 20 93 Nasal Cannula 10/16/22 15:00 69 10/16/22 15:15 37.1 C 79 18 135/69 94 Nasal Cannula 10/16/22 11:08 36.5 C 82 20 154/64 H 96 Nasal Cannula 10/16/22 10:41 85 24 93 Nasal Cannula O2 Flow Rate 10/16/22 21:56 2 10/16/22 19:15 2 10/16/22 19:01 10/16/22 16:00 2 10/16/22 15:00 10/16/22 15:15 2 10/16/22 11:08 2 10/16/22 10:41 2 Laboratory Results Laboratory Results - last 24 hr 10/15/22 10/16/22 10/16/22 23:31 02:06 05:36 Sodium Potassium Chloride Carbon Dioxide Anion Gap BUN Creatinine Est Cr Clr Drug Dosing Est GFR ( Amer) Est GFR (Non-Af Amer) BUN/Creatinine Ratio Glucose POC Glucose 138 H 129 H 143 H Calcium 10/16/22 10/16/22 10/16/22 07:30 07:32 11:42 Sodium 138 Potassium 5.2 H Chloride 96 L Carbon Dioxide 38 H Anion Gap 4 BUN 47 H Creatinine 1.06 Est Cr Clr Drug Dosing 48.7 Est GFR ( Amer) 58.2 Est GFR (Non-Af Amer) 50.3 BUN/Creatinine Ratio 44.3 H Glucose 186 H POC Glucose 168 H 149 H Calcium 9.3 10/16/22 10/16/22 16:24 20:07 Sodium Potassium Chloride Carbon Dioxide Anion Gap BUN Creatinine Est Cr Clr Drug Dosing Est GFR ( Amer) Est GFR (Non-Af Amer) BUN/Creatinine Ratio Glucose POC Glucose 112 H 160 H Calcium PG Care Time/CCT Total # of Minutes Spent Total Time Spent with Patient: Total time spent is greater than 50% in coordination of care (as documented) at patient's floor/unit and/or counseling patient: Coding Level of Care Code 63365 SUB INP/OBS CARE 235MIN Diagnoses Acute on chronic respiratory failure with hypoxia and hypercapnia J96.21; J96.22 Acute exacerbation of chronic obstructive pulmonary disease J44.1 KATHLEEN (generalized anxiety disorder) F41.1 CHF (congestive heart failure) I50.9 Anemia D64.9 Anemia type: unspecified type Atrial fibrillation I48.91 Hypothyroid E03.9 VIJAY (obstructive sleep apnea) G47.33 Diabetes E11.9; Z79.4 Diabetes mellitus complication status: without complication Diabetes mellitus terminal operator insulin use: with correction use Diabetes mellitus type: type 2 Hyperkalemia E87.5 Chronic respiratory failure with hypoxia J96.11 Major depression, recurrent, full remission F33.42 Pulmonary embolism I26.99 (1) Diabetes Diabetes mellitus complication status: without complication Diabetes mellitus terminal operator insulin use: with terminal operator use Diabetes mellitus type: type 2 Qualified Code(s): E11.9 - Type 2 diabetes mellitus without complications; Z79.4 - manager terminal (current) use of insulin (2) Anemia Anemia type: unspecified type Qualified Code(s): D64.9 - Anemia, unspecified
[2022-10-16] MEDS: MoRPHine SULFATE 10 MG/0.5 ML UDP PO PRN (22:58)
[2022-10-17] MEDS: ALBUT/IPRATROP 3MG/0.5MG NEB 3 ML VIAL NEB SCH ×6 (02:23→23:33)
[2022-10-17] MEDS: LEVOTHYROXINE SODIUM 25 MCG TABLET PO SCH (05:42)
[2022-10-17] MEDS: FORMOTEROL 20 MCG/2 ML VIAL NEB SCH ×2 (07:08→19:00)
[2022-10-17] MEDS: BUDESONIDE 0.5 MG/2 ML VIAL (PULMICORT) INH SCH ×2 (07:09→19:00)
[2022-10-17] MEDS: SODIUM CHLOR 7% 4 ML NEB NEB SCH ×2 (07:09→19:11)
[2022-10-17] MEDS: INSULIN ASPART PER UNIT SC SCH ×4 (08:45→20:57)
[2022-10-17] MEDS: LANTUS PER UNIT CHARGE SQ SCH ×2 (08:46→20:56)
[2022-10-17] MEDS: MAGNESIUM OXIDE 400 MG TAB PO SCH ×2 (08:50→20:52)
[2022-10-17] MEDS: NYSTATIN SUSP 500,000 U/5 ML UDC PO SCH ×4 (08:50→20:51)
[2022-10-17] MEDS: busPIRone 5 MG TAB PO SCH ×2 (08:50→20:52)
[2022-10-17] MEDS: PANTOprazole 40 MG TAB PO SCH ×2 (08:51→20:52)
[2022-10-17] MEDS: RIVAROXABAN 20 MG TAB PO SCH (08:51)
[2022-10-17] MEDS: MONTELUKAST SODIUM 10 MG TABLET PO SCH (08:51)
[2022-10-17] MEDS: ROFLUMILAST 500 MCG TAB PO SCH (08:53)
[2022-10-17] MEDS: FOLIC ACID 400 MCG TAB PO SCH (08:54)
[2022-10-17] MEDS: METOPROLOL SUCC 25MG EXT REL TAB PO SCH ×2 (08:54→20:52)
[2022-10-17] MEDS: CYANOCOBALAMIN (B-12) 500 MCG TABLET PO SCH (08:54)
[2022-10-17] MEDS: guaiFENesin 600 MG TABCR PO SCH ×2 (08:55→20:51)
[2022-10-17] MEDS: methylPREDNISolone 40 MG in SYRINGE 0 ML IV SCH ×2 (08:58→20:51)
[2022-10-17] MEDS: BENZONATATE 100 MG CAPSULE PO SCH ×3 (08:59→20:51)
[2022-10-17 09:21] LABS: BUN Creatinine Ratio 46.4 (10-20); Calcium 9.9 mg/dl (8.5-10.1); Creatinine Clr Calc Pharmacy 47.1 ml/min; Est GFR (African American) 55.7 ml/min; Est GFR (Non-African American) 48.1 ml/min; Potassium 5.2 mmol/L (3.5-5.1)
[2022-10-17] MEDS: MoRPHine SULFATE 10 MG/0.5 ML UDP PO PRN ×2 (11:51→21:05)
[2022-10-17] MEDS: PATIROMER CALCIUM SORBITEX 8.4 GM PACK PO SCH (12:24)
[2022-10-17] MEDS: COUGH DROP (SUGAR FREE) LOZ 24 LOZ/1 BOX BUCCAL PRN ×2 (14:06→19:21)
--- NOTE | 2022-10-17 14:09 | Pharmacy Report ---
Pharmacy Glycemic Short Note 2 - Date of Service October 17, 2022 - Glycemic Short BSG Results (Last 24 hours): 10/16/22 10/16/22 10/17/22 16:24 20:07 05:51 Glucose POC Glucose 112 H 160 H 122 H 10/17/22 10/17/22 10/17/22 07:18 07:49 11:00 Glucose 138 H POC Glucose 120 H 180 H OUTPATIENT ANTIDIABETIC REGIMEN: * Metformin 500mg PO BID * Lantus 15 units SQ HS * Humalog 12 units TIDM HbA1C: 7.5% (09/17/22) ASSESSMENT: 10/17/22: * Ms Clemons's steroids were reduced slightly yesterday (SoluMedrol 30mg TID --> 40mg BID). * Basal insulin reduced this morning d/t steroid reduction. No other changes at this time. * Expect that patient's insulin requirements will decrease as steroids taper, so will need to adjust regimen accordingly to avoid hypoglycemia. 10/15/22 * Patient received 131 units of insulin yesterday, of which 40 units were basal insulin * Fasting elevated 270 mg/dL - will increase basal 30% today * Steroids decreasing from yesterday, may loosen parameters for novolog slightly 10/13/22 * Patient received 118 units of insulin yesterday, of which 30 units were basal * Fasting BSG elevated at 266 mg/dL - will increase basal ~30% today * Continue with tighter CR breakfast, dinner, HS - will have looser CR with lunch as BSGs tend to drop from lunch to dinner BASELINE * Patient is a 77 YO female with DM2 well known to the glycemic pharmacy service admitted with a COPD exacerbation. Pharmacy consulted to assist with glycemic management. * BSGs 124-256mg/dL since arrival. Received Solu Medrol 125mg X 1 in the ED, and scheduled on 40mg IV TID to begin tomorrow AM. Heart healthy diet ordered. * Based upon historical admission data (patient receiving Solu Medrol 40mg IV TID), will initiate Lantus per scale 15-20 units BID depending on BSG. Novolog will be initiated with a correction factor of 20mg/dL/unit and carb ratio of 5 unit/gm. PLAN FOR INPATIENT GLYCEMIC CONTROL: * Hold outpatient oral diabetes medications * Basal insulin * Lantus 20 units SQ BID * Bolus insulin * NovoLog per scale ACHS or Q6hrs while NPO * Goal Range: Low 110 mg/dL - High 140 mg/dL * Correction Factor: 15 mg/dL/unit (25 mg/dL/unit at lunch only) * Nutritional / Prandial insulin per carb ratio of 1 unit per 3 grams CHO consumed (1 unit per 7 gm CHO at lunch only)
--- NOTE | 2022-10-17 20:32 | Hospitalist Progress Note ---
Date of Service October 17, 2022 Assessment & Plan (1) Acute on chronic respiratory failure with hypoxia and hypercapnia: Plan: acute component 2nd to COPD exacerbation in setting of RSV infection - improved. plan for last dose of IV steroids tonight, then prednisone 40mg once daily starting in am. (2) Acute exacerbation of chronic obstructive pulmonary disease: Plan: 2nd to RSV infection. stop solumedrol after tonight's dose; then PO prednisone starting in am, followed by taper. cont pulmonary toilet. cont BIPAP HS. daytime O2. mucinex BID. cont usual inhalers. cont q4h duonebs. tessalon TID. cont vibration vest + flutter + etc. cont roflumilast daily. patient reports she has a vibration vest at home. (3) KATHLEEN (generalized anxiety disorder): Plan: Severe Cont ativan 0.5mg BID prn Cont buspar 5mg BID Cont seroquel (4) CHF (congestive heart failure): Plan: Echo 09/2022: EF 65 to 70%, RVSP 41%, RV normal in size and function acute/chronic diastolic CHF - acute component resolved; actually appears volume contracted cont to hold lasix and aldactone likely resume lasix at d/c, but stop aldactone due to high K levels (5) Anemia: Plan: Iron studies: iron 13, transferrin saturation 4%, ferritin <10 earlier this month s/p Venofer 300mg IV x 3 doses inpatient B12 borderline low at 318 - given IM x 2 and continued on oral daily, rec continue at d/c Folate borderline low at 6.4 -- oral replacement started here Given Fe deficiency GI was consulted -- can arrange outpt f/u for EGD, etc. Xarelto resumed given stability of Hb. Used for h/o DVT/PE in 2018 and a.fib. (6) Atrial fibrillation: Plan: hx paroxysmal afib remains in NSR on telemetry Cont Xarelto 20mg daily Cont metoprolol succinate 25mg BID (7) Hypothyroid: Plan: On synthoid 25mcg daily TSH wnl (8) VIJAY (obstructive sleep apnea): Plan: BIPAP HS (9) Diabetes: Plan: HbA1c 7.5% Pharmacy glycemic consult appreciated They are making large adjustments due to hypoglycemia (10) Hyperkalemia: Plan: high-normal or slightly high for several weeks could represent element of volume contraction given her high BUN other possibility is that of hyporenin hypoaldosteronism state avoid DOE/ARB patiromer x 1 again today would not resume aldactone at discharge repeat BMP am (11) Chronic respiratory failure with hypoxia: Plan: on home O2 2 L continuously with 4 L with activity (12) Major depression, recurrent, full remission: Plan: cont seroquel 200mg HS (13) Pulmonary embolism: Plan: h/o DVT/PE in [address] Remains on xarelto 20mg daily Also with Hx ovarian ca/septic thrombophlebitis as listed in chart Plan possible d/c tomorrow if patient is feeling well Admission and Anticipated Discharge Date Admission Date: October 07, 2022 Subjective tele stable overnight pt asks about potential discharge tomorrow she is overall feeling better in comparison to when she first came to the hospital cough and wheezing are improved she is eating well anxiety is better with buspar she asks if she can take the morphine elixir at home she is not interested in attending rehab post-d/c -- wants to return to her apartment Review of Systems Review of Systems: gen - no fevers cv - no chest pain; chronic orthopnea pulm - ALVAREZ modestly worse than baseline but much better in comparison to when she first arrived ; sputum production resolved GI - no abd pain Physical Exam Physical Exam: gen - comfortable today, NAD neck - no JVD mouth - MM dry - unchanged heart - RRR, s1 s2, no murmur lungs - much more clear today b/l; airation fair; no wheezes; no rhonchi; no increased work of breathing today abd - soft NT ND BS+ ext - pulses 2+ b/l, no edema psych - a/o x 3; anxiety a little better today Results & Data Results & Data ([facility]) Vital Signs (Past 12 Hours) Vital Signs Temp Pulse Pulse Resp BP Pulse Ox O2 Del Method 10/17/22 19:02 82 18 97 Nasal Cannula 10/17/22 18:32 37.0 C 72 18 146/65 H 97 Nasal Cannula 10/17/22 15:33 75 10/17/22 15:29 37.0 C 67 18 128/71 98 Nasal Cannula 10/17/22 15:13 74 18 97 Nasal Cannula 10/17/22 11:04 79 20 95 Nasal Cannula 10/17/22 10:57 36.5 C 78 18 161/74 H 95 Nasal Cannula 10/17/22 10:37 Nasal Cannula O2 Flow Rate 10/17/22 19:02 2 10/17/22 18:32 2 10/17/22 15:33 10/17/22 15:29 2 10/17/22 15:13 2 10/17/22 11:04 2 10/17/22 10:57 2 10/17/22 10:37 2 Laboratory Results Laboratory Results - last 24 hr 10/17/22 10/17/22 10/17/22 05:51 07:18 07:49 Sodium 138 Potassium 5.2 H Chloride 99 Carbon Dioxide 36 H Anion Gap 3 BUN 51 H Creatinine 1.10 Est Cr Clr Drug Dosing 47.1 Est GFR ( Amer) 55.7 Est GFR (Non-Af Amer) 48.1 BUN/Creatinine Ratio 46.4 H Glucose 138 H POC Glucose 122 H 120 H Calcium 9.9 10/17/22 10/17/22 10/17/22 11:00 14:12 16:23 Sodium Potassium Chloride Carbon Dioxide Anion Gap BUN Creatinine Est Cr Clr Drug Dosing Est GFR ( Amer) Est GFR (Non-Af Amer) BUN/Creatinine Ratio Glucose POC Glucose 180 H 89 55 L* Calcium 10/17/22 10/17/22 10/17/22 16:24 16:41 16:57 Sodium Potassium Chloride Carbon Dioxide Anion Gap BUN Creatinine Est Cr Clr Drug Dosing Est GFR ( Amer) Est GFR (Non-Af Amer) BUN/Creatinine Ratio Glucose POC Glucose 52 L* 67 L* 99 Calcium PG Care Time/CCT Total # of Minutes Spent Total Time Spent with Patient: Total time spent is greater than 50% in coordination of care (as documented) at patient's floor/unit and/or counseling patient: Coding Level of Care Code 20823 SUB INP/OBS CARE 2/35MIN Diagnoses Acute on chronic respiratory failure with hypoxia and hypercapnia J96.21; J96.22 Acute exacerbation of chronic obstructive pulmonary disease J44.1 KATHLEEN (generalized anxiety disorder) F41.1 CHF (congestive heart failure) I50.9 Anemia D64.9 Anemia type: unspecified type Atrial fibrillation I48.91 Hypothyroid E03.9 VIJAY (obstructive sleep apnea) G47.33 Diabetes E11.9; Z79.4 Diabetes mellitus complication status: without complication Diabetes mellitus exterminator helper termite insulin use: with [facility] use Diabetes mellitus type: type 2 Hyperkalemia E87.5 Chronic respiratory failure with hypoxia J96.11 Major depression, recurrent, full remission F33.42 Pulmonary embolism I26.99 (1) Diabetes Diabetes mellitus complication status: without complication Diabetes mellitus [facility] insulin use: with exterminator helper termite use Diabetes mellitus type: type 2 Qualified Code(s): E11.9 - Type 2 diabetes mellitus without complications; Z79.4 - terminal worker (current) use of insulin (2) Anemia Anemia type: unspecified type Qualified Code(s): D64.9 - Anemia, unspecified
[2022-10-17] MEDS: QUEtiapine FUMARATE 200 MG TAB PO SCH (20:52)
[2022-10-17] MEDS: MIRTAZAPINE TAB 15 MG TAB PO SCH (20:52)
[2022-10-17] MEDS ORDERED: methylPREDNISolone 20 MG in SYRINGE 0 ML IV ONE (21:00)
[2022-10-18] MEDS: ALBUT/IPRATROP 3MG/0.5MG NEB 3 ML VIAL NEB SCH ×5 (03:31→18:12)
[2022-10-18] MEDS: MoRPHine SULFATE 10 MG/0.5 ML UDP PO PRN ×2 (03:48→09:19)
[2022-10-18] MEDS: LEVOTHYROXINE SODIUM 25 MCG TABLET PO SCH (05:50)
[2022-10-18] MEDS: SODIUM CHLOR 7% 4 ML NEB NEB SCH (07:12)
[2022-10-18] MEDS: BUDESONIDE 0.5 MG/2 ML VIAL (PULMICORT) INH SCH (07:12)
[2022-10-18] MEDS: FORMOTEROL 20 MCG/2 ML VIAL NEB SCH (07:13)
[2022-10-18] MEDS: INSULIN ASPART PER UNIT SC SCH ×4 (07:53→17:18)
[2022-10-18] MEDS ORDERED: predniSONE 20 MG TAB PO SCH (09:00)
[2022-10-18] MEDS: LANTUS PER UNIT CHARGE SQ SCH (09:02)
[2022-10-18] MEDS: PANTOprazole 40 MG TAB PO SCH (09:03)
[2022-10-18] MEDS: RIVAROXABAN 20 MG TAB PO SCH (09:03)
[2022-10-18] MEDS: METOPROLOL SUCC 25MG EXT REL TAB PO SCH (09:04)
[2022-10-18] MEDS: MAGNESIUM OXIDE 400 MG TAB PO SCH (09:04)
[2022-10-18] MEDS: busPIRone 5 MG TAB PO SCH (09:06)
[2022-10-18] MEDS: guaiFENesin 600 MG TABCR PO SCH (09:09)
[2022-10-18] MEDS: CYANOCOBALAMIN (B-12) 500 MCG TABLET PO SCH (09:10)
[2022-10-18] MEDS: FOLIC ACID 400 MCG TAB PO SCH (09:10)
[2022-10-18] MEDS: MONTELUKAST SODIUM 10 MG TABLET PO SCH (09:10)
[2022-10-18] MEDS: ROFLUMILAST 500 MCG TAB PO SCH (09:10)
[2022-10-18] MEDS: NYSTATIN SUSP 500,000 U/5 ML UDC PO SCH ×3 (09:11→17:19)
[2022-10-18] MEDS: BENZONATATE 100 MG CAPSULE PO SCH ×2 (09:38→14:20)
[2022-10-18 10:15] LABS: Hematocrit (blood only) 34.1 % (37.0-47.0); Hemoglobin 10.2 g/dl (12.0-16.0); Mean Corpuscular Hgb Conc 29.9 g/dL (32.0-36.0); Mean Corpuscular Volume 83.6 fL (80.0-100.0); Platelet Count 290 K/uL (130-400); RDW Coefficient of Variation 23.3 % (11.5-14.5); RDW Standard Deviation 67.9 fL (36.4-46.3); Red Blood Count 4.08 M/uL (4.20-5.40); White Blood Count 10.89 K/ul (4.8-10.8)
[2022-10-18 10:41] LABS: BUN Creatinine Ratio 46.4 (10-20); Calcium 8.7 mg/dl (8.5-10.1); Creatinine Clr Calc Pharmacy 53.8 ml/min; Est GFR (African American) 64.8 ml/min; Est GFR (Non-African American) 55.9 ml/min; Potassium 4.6 mmol/L (3.5-5.1)
[2022-10-18] MEDS: PATIROMER CALCIUM SORBITEX 8.4 GM PACK PO SCH (12:40)
--- NOTE | 2022-10-18 15:06 | Pharmacy Report ---
Pharmacy Glycemic Short Note 2 - Date of Service October 18, 2022 - Glycemic Short BSG Results (Last 24 hours): 10/17/22 10/17/22 10/17/22 16:23 16:24 16:41 Glucose POC Glucose 55 L* 52 L* 67 L* 10/17/22 10/17/22 10/18/22 16:57 20:29 07:24 Glucose POC Glucose 99 264 H 288 H 10/18/22 10/18/22 10/18/22 09:47 10:23 11:02 Glucose 305 H* POC Glucose 264 H 160 H OUTPATIENT ANTIDIABETIC REGIMEN: * Metformin 500mg PO BID * Lantus 15 units SQ HS * Humalog 12 units TIDM HbA1C: 7.5% (09/17/22) ASSESSMENT: 10/18/22 * Patient received total of 82 units of insulin yesterday, of which 40 units were basal insulin * Fasting elevated at 288 mg/dL - however additional dose of solumedrol given last evening (total 60 mg x 1 at HS) * Changing to prednisone today, anticipate insulin needs to decrease * Reasonable to continue 20 basal insulin this morning, but will have scale for HS to cut insulin by 50% * Loosened CF/CR with lunch for decrease in steroids 10/17/22: * Ms Mack steroids were reduced slightly yesterday (SoluMedrol 30mg TID --> 40mg BID). * Basal insulin reduced this morning d/t steroid reduction. No other changes at this time. * Expect that patient's insulin requirements will decrease as steroids taper, so will need to adjust regimen accordingly to avoid hypoglycemia. 10/15/22 * Patient received 131 units of insulin yesterday, of which 40 units were basal insulin * Fasting elevated 270 mg/dL - will increase basal 30% today * Steroids decreasing from yesterday, may loosen parameters for novolog slightly 10/13/22 * Patient received 118 units of insulin yesterday, of which 30 units were basal * Fasting BSG elevated at 266 mg/dL - will increase basal ~30% today * Continue with tighter CR breakfast, dinner, HS - will have looser CR with lunch as BSGs tend to drop from lunch to dinner BASELINE * Patient is a 77 YO female with DM2 well known to the glycemic pharmacy service admitted with a COPD exacerbation. Pharmacy consulted to assist with glycemic management. * BSGs 124-256mg/dL since arrival. Received Solu Medrol 125mg X 1 in the ED, and scheduled on 40mg IV TID to begin tomorrow AM. Heart healthy diet ordered. * Based upon historical admission data (patient receiving Solu Medrol 40mg IV TID), will initiate Lantus per scale 15-20 units BID depending on BSG. Novolog will be initiated with a correction factor of 20mg/dL/unit and carb ratio of 5 unit/gm. PLAN FOR INPATIENT GLYCEMIC CONTROL: * Hold outpatient oral diabetes medications * Basal insulin * Lantus 20 Qam * Lantus 0-10 units QPM * Bolus insulin * NovoLog per scale ACHS or Q6hrs while NPO * Goal Range: Low 110 mg/dL - High 140 mg/dL * Correction Factor: 20 mg/dL/unit * Nutritional / Prandial insulin per carb ratio of 1 unit per 9 grams CHO consumed
[2022-10-18] MEDS ORDERED: LANTUS PER UNIT CHARGE SQ SCH (21:00)
[2022-10-19] MEDS ORDERED: INSULIN ASPART PER UNIT SC SCH
--- NOTE | 2022-10-23 14:32 | Discharge Summary ---
Date of Service date of admission - October 07, 2022 date of discharge - October 18, 2022 Admission HPI Per Admitting Provider Mini Clemons is a 77-year-old female with a past medical history of COPD, chronic respiratory failure on home oxygen, VIJAY, hypothyroidism, PE, A. fib on Xarelto, CHF, QT prolongation, DM on insulin who presents with acute on chronic shortness of breath and wheezing and is found to be RSV positive. She was recently admitted 09/17/2022 - 09/24/2022 for a COPD exacerbation She reports that she felt well for 1 week after discharge, then started to wheeze again. Over the last week she has felt significantly more wheezy, with some feeling of being flushed/feverish but no temperature to her knowledge. No nausea/vomiting/diarrhea/constipation. Has felt more short of breath with difficulty breathing. Has not had any edema or leg swelling. Denies sputum pr oduction. Principal Diagnosis 1. severe COPD exacerbation 2nd to RSV 2. RSV infection 3. uncontrolled diabetes due to steroids for #1 4. acute on chronic hypoxic respiratory failure on home oxygen 5. anxiety 6. mild hyperkalemia - resolved; work-up in progress for such Discharge Exam gen - comfortable, NAD, anxious neck - no JVD mouth - MM dry - unchanged heart - RRR, s1 s2, no murmur lungs - airation fair; mild end-exp wheezes; no rhonchi; no increased work of breathing; no rales abd - soft NT ND BS+ ext - pulses 2+ b/l, no edema psych - a/o x 3; anxious Discharge Data Allergies Allergy/AdvReac Type Severity Reaction Status Date / Time rabies vaccine, duck-embryo Allergy Severe HIVES Verified 06/09/22 12:02 ragweed pollen Allergy Unknown UNKNOWN Verified 06/09/22 12:02 tomato Allergy Unknown HIVES Verified 06/09/22 12:02 Consultations [facility] Gastroenterology [facility] Palliative Care [facility] Liaison PT, OT Pharmacy Glycemic Team Procedures Performed Echocardiogram - * EF 60-65% * no significant valvular abnormalities * mild pulmonary HTN 2-step ambulatory O2 test - 2 liters NC O2 with rest/sleep; 4 liters with activity Ordered Studies Chest X-Ray 10/07/22 08:52 XR chest 1V portable HISTORY: Dyspnea COMPARISON: Chest 09/19/2022. FINDINGS: The cardiac silhouette remains mildly enlarged. Bibasilar interstitial thickening and a few linear densities persist. The upper lung zones remain liam ar. No new focal lung consolidations. No evidence for pulmonary edema. No pleural effusions. No pneumothorax. Emphysema again noted. IMPRESSION: 1. No significant change compared to the prior study. 2. Emphysema with bibasilar interstitial thickening persists. 3. Stable mild cardiomegaly. ACT 112: Negative or not required by law. Electronically signed by: Charly Cabrera M.D. 10/07/2022 9:44 AM Chest X-Ray 10/10/22 11:05 XR chest 1V portable HISTORY: 77 years-old Female diffuse wheezing, sob, eval volume overload/edema acute shortness of breath with wheezing COMPARISON: October 07, 2022 TECHNIQUE: AP view of the chest FINDINGS: Cardiac silhouette is enlarged. Pulmonary vascular congestion. Emphysema with chronic interstitial coarsening. Atherosclerosis of the aorta. No pneumothorax. Possible trace pleural effusions with mild bibasilar densities. Bones appear grossly intact. IMPRESSION: 1. Cardiomegaly with pulmonary vascular congestion. 2. Emphysema. 3. Possible trace pleural effusions. ACT 112: Negative or not required by law. The above report was generated using voice recognition software. It may contain grammatical, syntax or spelling errors. Electronically signed by: Toni Zepeda M.D. 10/10/2022 11:25 AM Chest X-Ray 10/11/22 07:00 XR chest 1V portable CLINICAL HISTORY: follow up congestion COMPARISON STUDY: Chest CT July 23, 2022. Chest radiograph October 10, 2022. FINDINGS: There is underlying emphysema. There is no pneumothorax or pleural effusion. Blunting of the left costophrenic angle is chronic. Hazy left basilar opacity likely reflects epicardial fat pad and atelectasis. Mild cardiomegaly is unchanged. There is no consolidation to suggest pneumonia. Appearance of the chest is unchanged. IMPRESSION: No acute cardiopulmonary findings. No significant change in appearance of the chest. ACT 112: Negative or not required by law. Electronically signed by: Rick Canchola M.D. 10/11/2022 7:30 AM Chest X-Ray 10/12/22 08:39 XR chest 2V PA/lateral CLINICAL HISTORY: follow up COMPARISON STUDY: Chest radiograph October 11, 2022. Chest CT July 23, 2022. FINDINGS: Emphysema is present. There is no pneumothorax or pleural effusion. Left lower lung linear densities favor scarring or atelectasis. There is no consolidation to suggest pneumonia. Cardiomediastinal silhouette is stable. IMPRESSION: No acute cardiopulmonary findings. Emphysema. ACT 112: Negative or not required by law. Electronically signed by: Rick Canchola M.D. 10/12/2022 9:46 AM Hospital Course (1) Acute on chronic respiratory failure with hypoxia and hypercapnia: acute component 2nd to COPD exacerbation in setting of RSV infection - improved. Peak O2 requirement was 5-7 liters of NC O2. received IV steroids and supportive care measures during her prolonged hospital stay. she was ultimately weaned to her home O2 amount of 2 liters at rest. (2) Acute exacerbation of chronic obstructive pulmonary disease: 2nd to RSV infection. Received long course of IV solumedrol and then was finally weaned to PO prednisone. She will complete a slow steroid taper after discharge. She follows with [facility] in [place] - Dr Teja Guzmán. She was encouraged to see him within a week of discharge. She was counseled that she likely would have another 1-2 weeks of recovery at home from this RSV-induced COPD flare. She was continued on her usual inhalers. She received duonebs, tessalon, vibration vest, flutter valve, saline nebs, etc. Patient reports she has a vibration vest at home and will continue such after discharge. She will continue all of her usual pulmonary meds at home. Of note - the patient suffers from severe anxiety which often worsens her breathing and gives her dyspnea. She was seen by palliative care as her COPD is end-stage and she is having frequent exacerbations. She was offered a trial of low-dose Roxanol which did provide significant benefit for her episodes of air hunger/anxiety. She was indeed prescribed Roxanol at discharge for episodes of air hunger. Although the patient acknowledges that her COPD is end-stage she is not ready to initiate hospice at this time. (3) Hyperkalemia: high-normal or slightly high for several weeks (5 to 5.6) could represent element of volume contraction given her high BUN other possibility is that of hyporenin hypoaldosteronism state further, aldactone use likely contributing avoid DOE/ARB would not resume aldactone at discharge did need a few doses of patiromer while here discharge K level was 4.6 renin / aldosterone levels were dispatched & pending at discharge recommend repeat BMP within 1 week of discharge to ensure stability of K level (4) KATHLEEN (generalized anxiety disorder): Severe Was started on buspar 5mg TID prn and she tolerated such Cont seroquel 200mg HS (5) CHF (congestive heart failure): Echo 09/2022: EF 65 to 70%, RVSP 41%, RV normal in size and function thus - she was treated for acute/chronic diastolic CHF - acute component resolved; if anything she actually appeared volume contracted later in her stay with markedly elevated BUN and Cr along with very dry mucous membranes she can resume her lasix 24 hours post-discharge I recommended she NOT resume aldactone due to persistently high or high-normal potassium levels she continues on metoprolol succinate 25mg BID (6) Anemia: Iron studies: iron 13, transferrin saturation 4%, ferritin <10 earlier Sep 2022 s/p Venofer 300mg IV x 3 doses while here B12 borderline low at 318 - given IM x 2 and continued on oral daily supplementation Recommended B12 1000mcg po daily at d/c Folate level was 6.4 Given Fe deficiency GI was consulted -- outpt f/u has been advised. She is a very poor candidate for endoscopic evaluation however given her severe COPD. Xarelto was later resumed given stability of Hemoglobin. Xarelto is used for h/o DVT/PE in 2018 and a.fib. Hemoglobin was 10.2 at discharge. (7) Atrial fibrillation: hx paroxysmal afib remained in NSR on telemetry while here Cont Xarelto 20mg daily Cont metoprolol succinate 25mg BID (8) Hypothyroid: On synthoid 25mcg daily TSH wnl (0.6) (9) VIJAY (obstructive sleep apnea): BIPAP HS (10) Diabetes: HbA1c 7.5% Pharmacy glycemic team managed her DM She did have hypoglycemia during the stay At discharge recommended - * humalog WITH EACH meal (had only been using about 1 meal/day prior) * metformin twice daily * lantus 15 units QAM A neighbor helps assist her with injections (11) Chronic respiratory failure with hypoxia: on home O2 - 2 L at rest with 4 L with activity 2nd to severe, end-stage COPD (12) Major depression, recurrent, full remission: cont seroquel 200mg HS (13) Pulmonary embolism: h/o DVT/PE in [address] Remains on xarelto 20mg daily Also with Hx ovarian ca/septic thrombophlebitis as per her record Plan cleared for home by PT/OT she will continue home health services upon transition home Home Health Attestation I certify that this patient is under my care and that I, or a physicians recycling assistant working with me, had a face to-face encounter that meets the home health [id number] encounter requirements with this patient. The encounter with the patient was in whole, or in part, for the following medical condition, which is the primary reason for home health care (list medical condition): I certify that, based on my findings, the following services are medically necessary home health services: My clinical findings support the need for the above services because: Further, I certify that my clinical findings support that this patient is homebound (i.e. absences from home require considerable and taxing effort and are for medical reasons or mandaen services or infrequently or of short duration when for other reasons) because: Certification for Home Health Services: Based on the above findings, I certify that this patient is confined to the home and needs intermittent longterm care, physical therapy and/or speech therapy or continues to need occupational therapy. The patient is under my care, and I have initiated the establishment of the plan of care. This patient will be followed by a physician who will periodically review the plan of care. Total Time Total Time Spent Total Time Spent (In Minutes): 55 Discharge Plan Discharge Items Patient Disposition: Home - Home Health Services Reason For Visit: COPD EXACERBATION due to RSV infection Discharge Diagnosis: 1. severe COPD exacerbation 2. RSV infection (common respiratory illness caused by "RSV" virus) 3. uncontrolled diabetes due to steroids for #1 4. chronic respiratory failure on home oxygen 5. anxiety Activity: As commented below Activity Comment: light activities only Driving/Machine Use: No driving Non-emergency contact: Primary Care Provider and Correctional Manager Call non-emergency contact if: you have any medication questions and your symptoms worsen Follow-up/Referrals: Audrey Duque MD [Physician] - (if you wish to discuss palliative care in mo re detail, need adjustments in your morphine, or wish to transition to hospice at home please reach out to Dr Duque at the palliative care clinic) Teja Guzmán M.D. [Outside Practitioners] - (see Dr Guzmán, Dr Thomas, or one of their associates in the [facility] office within 5-7 days if possible ) Dayna Bullard PA-C [Primary Care Provider] - (PLEASE CALL YOUR PRIMARY CARE PROVIDER TO SCHEDULE A DISCHARGE FOLLOW-UP APPOINTMENT WITHIN 7 DAYS.) Diet: Carb Consistent or DM2 and Low Potassium (2gm) Fluids: 1800ml (7 cups) Addtl Attending Provider Instructions: Mrs Clemons, You were hospitalized for a severe COPD exacerbation ("flare up" of your COPD - often caused by viruses). You did indeed test positive for a virus called "RSV." RSV is a respiratory virus that is typically prevalent in the late fall, winter, and early spring. It causes cold symptoms and in most cases respiratory illness/bronchitis. RSV causes illness in people of all ages but particularly young children (babies, toddlers, young kids) as well as adults who have underlying medical problems. Many babies and older adults become hospitalized due to RSV. The illness often lasts for 2 weeks or more, especially the cough/congestion caused by the virus. In folks with COPD the exacerbation/flare can last for up to 1 month. You have slowly improved with IV steroids, antibiotics, diuretics, breathing treatments, and time. Recommendations - 1. Steroids (prednisone) - on 10/19/22 please start prednisone once daily with food. It is an 8-day course. 2. For cough - * may use xmzs-ksn-zhhuyau mucinex up to 1200mg twice daily as needed for cough * I have prescribed benzonatate ("tessalon pearls") and you can take 1 every 8 hours as needed for cough; this is a cough suppressant 3. For anxiety - * buspirone 5mg every 8 hours as needed for anxiety 4. For dry mouth and for possible thrush (yeast) in mouth - * nystatin solution - 5cc four times daily for 1 week; swish and spit out 5. For severe episodes of "air hunger" - which is when you feel very anxious and have severe shortness of breath at the same time - * liquid morphine -- 2.5mg (0.125 ml) every 6 hours as needed * the palliative care physician recommended this for you; you have used it many times in the hospital and have tolerated this dose * know that the morphine can make you sleepy * know that the morphine can make you constipated * know that the morphine potentially can cause you to feel slightly confused, especially if you are taking the medication multiple times each day * if you are experiencing the above side effects regularly please discontinue the morphine right away 6. For constipation - * you can take jggn-zkb-mojqecd senokot and/or miralax for prevention & treatment of constipation 7. RESUME your furosemide water pill on Thursday morning, 10/19/22. 8. STOP your spironolactone. 9. Diabetes - know that the prednisone will raise your blood sugars over the next 7-10 days. Please - * take lantus 15 units EACH morning (rather than at bedtime); start this TOMORROW AM, 10/19/22 * you will need to take your humalog with EACH meal (breakfast, lunch, and dinner) rather than just using once a day, especially as you are finishing your steroids * continue your metformin twice daily as previous 10. Please STOP your Rohit-24 medication if you were taking it recently. 11. Continue your oxygen as previous - 2 liters at rest/sleep; 4 liters with activity. Follow-up - see separate section Return to [facility] if - * you have fevers over 100 degrees * you have worsening shortness of breath despite taking all of your usual respiratory/lung medications * you have chest pains * you develop severe diarrhea * you have concerns about consistently low blood sugars (less than 70) or consistently high sugars (greater than 300) * any other concerns It was our pleasure to care for you! Please enjoy being home and continue to feel better, Dr Landrum Pending Studies at Discharge: No Stand-Alone Forms: My [facility], Smoking Cessation Medications and DC Order Prescriptions: New buspirone 5 mg Tablet 5 mg PO TID PRN (Reason: anxiety) Qty: 60 1RF benzonatate 100 mg Capsule 100 mg PO TID PRN (Reason: cough) Qty: 30 0RF prednisone 10 mg tablet 10 mg PO .daily as directed Qty: 20 0RF Rx Instructions: start 10/19/22: 4 tabs daily x 2 days; 3 tabs daily x 2 days; 2 tabs daily x 2 days; 1 tab daily x 2 days. Take w/ food. cyanocobalamin (vitamin B-12) 1,000 mcg tablet 1,000 mcg PO DAILY Qty: 90 1RF Rx Instructions: purchase over the counter morphine concentrate 100 mg/5 mL (20 mg/mL) solution 2.5 mg PO Q6H PRN (Reason: severe shortness of breath/air hunger) Qty: 15 0RF Continued revefenacin 175 mcg/3 mL solution for nebulization 175 mcg inhalation DAILY Qty: 90 6RF Daliresp 500 mcg tablet 500 mcg PO DAILY Qty: 30 5RF albuterol sulfate 90 mcg/actuation HFA aerosol inhaler 2 puff inhalation Q6H PRN (Reason: Shortness Of Breath Or Wheezing) Qty: 18 3RF ipratropium-albuterol 0.5 mg-3 mg(2.5 mg base)/3 mL solution for nebulization 3 ml inhalation Q8H PRN (Reason: shortness of breath or wheezing) Qty: 180 6RF sodium chloride 7 % solution for nebulization 1 inh inhalation BID Qty: 240 6RF budesonide 0.5 mg/2 mL suspension for nebulization 0.5 mg inhalation BID Qty: 60 6RF arformoterol [Brovana] 15 mcg/2 mL solution for nebulization 2 ml inhalation BID Qty: 120 6RF insulin lispro [Humalog KwikPen Insulin] 100 unit/mL insulin pen 12 unit SUBCUT TIDM quetiapine 200 mg Tablet 200 mg PO HS levothyroxine 25 mcg Tablet 25 mcg PO QAM famotidine 20 mg Tablet 20 mg PO QAM pantoprazole 40 mg Tablet,Delayed Release (Dr/Ec) 40 mg PO BID mirtazapine 30 mg tablet 30 mg PO HS escitalopram oxalate 10 mg Tablet 15 mg PO QAM Xarelto 20 mg Tablet 20 mg PO QAM metoprolol succinate 25 mg Capsule,Sprinkle,Er 24hr 25 mg PO BID magnesium oxide 400 mg magnesium Tablet 400 mg PO BID 21cen Vit-D [place] 400iu Chew 1 tab PO DAILY polysaccharide iron complex [Poly-Iron] 150 mg iron capsule 150 mg PO BID montelukast 10 mg Tablet 10 mg PO HS azithromycin 250 mg tablet 250 mg PO [id number] Rx Instructions: Thursday, Thursday, Thursday Spiriva with HandiHaler 18 mcg capsule, w/inhalation device 18 mcg INHALATION DAILY fluticasone propionate 50 mcg/actuation spray,suspension 50 mcg INTRANASAL DAILY cholecalciferol (vitamin D3) 10 mcg (400 unit) tablet,chewable 10 mcg PO DAILY metformin 500 mg Tablet Extended Release 24 Hr 500 mg PO BID Qty: 60 0RF Rx Instructions: take with breakfast and with your evening dinner meal Changed insulin glargine [Lantus Solostar U-100 Insulin] 100 unit/mL (3 mL) insulin pen 15 unit subcut QAM Qty: 1 0RF Rx Instructions: per dr 1st Discontinued spironolactone 50 mg Tablet 100 mg PO QAM Rohit-24 400 mg capsule,extended release 24hr 400 mg PO DAILY Discharge Orders: Discharge Order (Routine); Ordered 10/18/22 Ordered By: Gualberto Landrum Admission Data Admit Date/Time: 10/07/22 11:36 Attending Provider: Gualberto Landrum Admit Provider: Callum Lynch Primary Care Provider: Dayna Bullard Other Providers: Callum Lynch ; Iglesia Villagomez ; Audrey Duque Other Interventions: Discharge Summary Assessment (RN) Last Done: 10/18/22 17:22 Coding Level of Care Code HOSP INP/OBS DISCH >30 MIN Diagnoses Acute on chronic respiratory failure with hypoxia and hypercapnia J96.21; J96.22 Acute exacerbation of chronic obstructive pulmonary disease J44.1 Hyperkalemia E87.5 KATHLEEN (generalized anxiety disorder) F41.1 CHF (congestive heart failure) I50.9 Anemia D64.9 Anemia type: unspecified type Atrial fibrillation I48.91 Hypothyroid E03.9 VIJAY (obstructive sleep apnea) G47.33 Diabetes E11.9; Z79.4 Diabetes mellitus complication status: without complication Diabetes mellitus mcfp insulin use: with mcfp use Diabetes mellitus type: type 2 Chronic respiratory failure with hypoxia J96.11 Major depression, recurrent, full remission F33.42 Pulmonary embolism I26.99
== END 2022-10-18 18:59 | disposition home health service (06) | DRG 189 ==
LOC: ED 08:40 → 3N 11:36 → SUATTDRO 11:36 → 3N 12:45 → 2W 10-11 15:45
DX: B97.4 Respiratory syncytial virus as the cause of diseases classified elsewhere; Z87.891 Personal history of nicotine dependence; E11.9 Type 2 diabetes mellitus without complications; Z88.7 Allergy status to serum and vaccine; J96.21 Acute and chronic respiratory failure with hypoxia; K92.1 Melena; G47.33 Obstructive sleep apnea (adult) (pediatric); E87.5 Hyperkalemia; I48.91 Unspecified atrial fibrillation; I50.42 Chronic combined systolic (congestive) and diastolic (congestive) heart failure; J44.1 Chronic obstructive pulmonary disease with (acute) exacerbation; F33.42 Major depressive disorder, recurrent, in full remission; F41.1 Generalized anxiety disorder; Z79.01 Long term (current) use of anticoagulants; Z79.4 Long term (current) use of insulin; Z86.711 Personal history of pulmonary embolism; E03.9 Hypothyroidism, unspecified; D50.9 Iron deficiency anemia, unspecified; Z79.890 Hormone replacement therapy; E87.22 Chronic metabolic acidosis; J96.22 Acute and chronic respiratory failure with hypercapnia; Z66 Do not resuscitate

== ENCOUNTER 2023-06-27 02:15 | Inpatient (IN) ==
[2023-06-27] MEDS ORDERED: methylPREDNISolone 125 MG/2 ML VIAL IV STA (02:41)
--- NOTE | 2023-06-27 02:47 | Emergency Department Note ---
Impression & Plan Hypoxia, Anemia, Acute exacerbation of chronic obstructive pulmonary disease, Atrial fibrillation with rapid ventricular response Admit to the [facility]. ED Provider Note NAME: ROSA HASSAN AGE: 78 SEX: Female INFORMANT: Patient ED PROVIDER(S): Neyda Luciano DO CHIEF COMPLAINT: Shortness of breath PLAN: Disposition: Admit to the [facility] MEDICAL DECISION MAKING: This is a 78-year-old female patient who presents to the emergency department with significant shortness of breath and hypoxia at home when her home O2 malfunctioned. Patient has a history of COPD. Upon EMS arrival the patient was pale, diaphoretic and hypoxic. Laboratory studies here in the emergency department reveal anemia with hemoglobin of 8.8. The patient was hyperglycemic with a glucose of 249. There was no leukocytosis. Renal function was at baseline. Troponin was negative. Patient was placed back on her supplemental oxygen here in the emergency department. She did have moderate to severe wheezing for EMS and received 2 DuoNebs. We did administer IV Solu-Medrol here in the ER. Patient presented in atrial fibrillation with rapid ventricular response. This seemed to resolve on its own. I discussed the case with the [facility] and they will evaluate for further inpatient care. Care/management discussed with: manager adult and [facility] Triage Nursing notes: Reviewed and agree them. Vital Signs: reviewed and remarkable for tachycardia and hypoxia Additional History obtained from: EMS Prior /Outside records reviewed: Previous admission to the hospital Differential Diagnosis: Pneumonia, COPD exacerbation, CHF, cardiac dysrhythmia Diagnostics, independently interpreted by me: ECG: A-fib with RVR at a rate of 121. There is no ST segment elevation or signs of ischemia Cardiac Monitoring: Atrial fibrillation with a rapid ventricular response at a rate of 111 Imaging studies: Chronic emphysematous changes with no obvious significant fluid overload. No consolidation appreciated. ED treatment provided: monitoring analyst Twelve-lead EKG Supplemental oxygen IV Solu-Medrol HPI: 78 year old Female arrives for evaluation of shortness of breath.. Patient is on home oxygen continuously-3 to 4 L. Tonight she became increasingly short of breath and noted that her oxygen tank was not working. EMS was called and found her O2 saturation to be 87% and she had significant wheezes. PAST MEDICAL HISTORY: See Below, PAST SURGICAL HISTORY: See Below, SOCIAL HISTORY: See Below, HOME MEDICATIONS: See list ALLERGIES: See list VITALS: See Below PHYSICAL EXAMINATION: HEENT: Head - normocephalic and atraumatic. Pupils are equal, round, and react lidia to light. Extraocular eye muscles are intact, and sclera are anicteric. Nose - moist nasal mucosa without discharge. Mouth - moist buccal mucosa. Oropharynx is nonerythematous and there is no tonsillar exudate or edema noted. Neck: Supple; no JVD Heart: Irregularly irregular rhythm with a tachycardic rate. There is a normal S1 and S2 with no murmurs, clicks, or gallops appreciated. Lungs: Inspiratory and expiratory wheezes Abdomen: Soft, completely nontender, nondistended, with good bowel sounds. There are no palpable pulsatile masses or hepatosplenomegaly. There is no guarding, rigidity, or rebound noted. Extremities: 1+ pitting edema both lower extremities Skin: warm and dry with good turgor and no rashes. Emergency department course: Patient was evaluated in room A-10. A complete history and physical was performed. Previous electronic medical records were reviewed. Laboratory studies were drawn as above. The patient was given a dose of IV Solu-Medrol. An order was placed for continuous cardiac monitoring. The patient was in atrial fibrillation with rapid ventricular response at a rate of 111. O2 saturations remained stable on supplemental oxygen. Portable chest x- ray was performed. Twelve-lead EKG was obtained. Patient remained hemodynamically stable. On the cafeteria monitor, the patient broke out of atrial fibrillation into a normal sinus rhythm at a rate of 72. CRITICAL CARE: I have personally spent greater than 30 minutes of critical care time in the direct management of this patient. This includes bedside care, interpretation of diagnostic studies, and testing, discussion with consultants, patient, and family members, and other required patient management activities. This 30 minutes is in excess of all separately billable procedures. Past Med/Surg History Medical History Acute and chronic respiratory failure with hypoxia Acute on chronic combined systolic (congestive) and diastolic (congestive) heart failure Acute on chronic respiratory failure with hypoxia and hypercapnia Acute respiratory failure with hypoxia Advanced care planning/counseling discussion Air hunger Atelectasis Breast cancer, right breast CHF (congestive heart failure) COPD (chronic obstructive pulmonary disease) COPD exacerbation Diabetes Dyspnea and respiratory abnormalities Elevated troponin Endocarditis KATHLEEN (generalized anxiety disorder) GERD (gastroesophageal reflux disease) GI bleed Hypoxia Major depression, recurrent, full remission MSSA (methicillin susceptible Staphylococcus aureus) septicemia Nausea & vomiting Obesity hypoventilation syndrome Palliative care encounter Panic attack as reaction to stress QT prolongation RSV (respiratory syncytial virus infection) Septic thrombophlebitis SOB (shortness of breath) Spinal abscess Syncope Vomiting and diarrhea Surgical History History of lumpectomy Family History Other Coronary heart disease Stroke Social History Smoking Status: Former smoker Second Hand Exposure: No; Do You Dip or Chew Tobacco: No; Hx Alcohol Use: No Hx Substance Use: No Preferred Language: Belarusian Communication Ability: Effective Photograph Developer Required: No Beliefs That Will Affect Care: None marital status: Single Current Living Situation: Alone Current Living Situation Comment: caregiver 5 nights a week, caregiver for 3hrs a day 3 days a week current occupational status: retired How many Children do You have: 0 Feels Safe at Home: Yes Assistive Devices: BiPap, CPAP, Nebulizer, Oxygen - Continuous, Scooter/Electric Scooter, Walker and Other Allergies Allergies Allergy/AdvReac Type Severity Reaction Status Date / Time rabies vaccine, duck-embryo Allergy Severe HIVES Verified 06/09/22 12:02 ragweed pollen Allergy Unknown UNKNOWN Verified 06/09/22 12:02 tomato Allergy Unknown HIVES Verified 06/09/22 12:02 Home Meds Home Medications Medication Instructions Recorded Confirmed escitalopram oxalate 10 mg tablet 15 mg PO QAM 02/10/19 12/12/22 famotidine 20 mg tablet 20 mg PO QAM 02/10/19 12/12/22 levothyroxine 25 mcg tablet 25 mcg PO QAM 02/10/19 12/12/22 metoprolol succinate 25 mg capsule 25 mg PO BID 02/10/19 12/12/22 sprinkle, ext. release 24 hr mirtazapine 30 mg tablet 30 mg PO 02/10/19 12/12/22 pantoprazole 40 mg tablet,delayed 40 mg PO BID 02/10/19 12/12/22 release quetiapine 200 mg tablet 200 mg PO HS 02/10/19 12/12/22 rivaroxaban 20 mg tablet (Xarelto) 20 mg PO QAM 02/10/19 12/12/22 magnesium oxide 400 mg PO BID 02/20/19 12/12/22 insulin lispro 100 unit/mL 12 unit subcut TIDM 05/22/20 12/12/22 subcutaneous pen (Humalog KwikPen (U-100) Insulin) polysaccharide iron complex 150 mg 150 mg PO BID 02/27/21 12/12/22 iron capsule (Poly-Iron) cholecalciferol (vitamin D3) 10 10 mcg PO DAILY 10/07/22 12/12/22 mcg (400 unit) chewable tablet fluticasone propionate 50 50 mcg intranasal DAILY 10/07/22 12/12/22 mcg/actuation nasal spray,suspension Oxygen Home 11/18/22 12/12/22 acetaminophen 500 mg oral powder 500 mg PO Q4H PRN 11/18/22 12/12/22 packet (Tylenol Extra Strength) furosemide 20 mg tablet (Lasix) 20 mg PO PRN 11/18/22 12/12/22 iron polysacch cplx 150 mg 1 cap PO BID 11/18/22 12/12/22 iron-vit B12 25 mcg-folic acid 1 mg capsule (iFerex) nystatin 100,000 unit/mL oral 500,000 unit PO QID 11/18/22 12/12/22 suspension spironolactone 50 mg tablet 100 mg PO DAILY 11/18/22 12/12/22 Previous Rx's Medication Instructions Recorded sodium chloride 7 % for 1 inh inhalation BID #240 mL 06/13/22 nebulization benzonatate 100 mg capsule 100 mg PO TID PRN cough #30 caps 10/18/22 buspirone 5 mg tablet 5 mg PO TID PRN anxiety #60 tabs 10/18/22 cyanocobalamin (vitamin B-12) 1,000 mcg PO DAILY #90 tabs 10/18/22 1,000 mcg tablet insulin glargine 100 unit/mL (3 15 unit (0.15 mL) subcut QAM #1 mL 02/04/23 mL) subcutaneous pen (Lantus Solostar U-100 Insulin) metformin 500 mg tablet,extended 500 mg PO BID #60 tabs 10/18/22 release 24 hr albuterol sulfate 90 mcg/actuation 2 puff inhalation Q6H PRN 12/12/22 aerosol inhaler Shortness Of Breath Or Wheezing #18 grams arformoterol 15 mcg/2 mL solution 2 ml inhalation BID #360 mL 12/12/22 for nebulization (Brovana) azithromycin 250 mg tablet 250 mg PO 3XWK #36 tabs 12/12/22 budesonide 0.5 mg/2 mL suspension 0.5 mg (2 mL) inhalation BID #180 12/12/22 for nebulization mL ipratropium 0.5 mg-albuterol 3 mg 3 ml inhalation Q8H PRN shortness 12/12/22 (2.5 mg base)/3 mL nebulization of breath or wheezing #540 mL soln montelukast 10 mg tablet 10 mg PO HS #90 tabs 12/12/22 roflumilast 500 mcg tablet 500 mcg PO DAILY #90 tabs 12/12/22 (Daliresp) tiotropium bromide 18 mcg capsule 18 mcg inhalation DAILY #90 12/12/22 with inhalation device (Spiriva inhalations with HandiHaler) guaifenesin 1,200 mg tablet, 1,200 mg PO BID #60 tabs 01/07/23 extended release 12 hr (Mucinex) prednisone 20 mg tablet 40 mg PO DAILY #10 tabs 01/07/23 revefenacin 175 mcg/3 mL solution 175 mcg (3 mL) inhalation DAILY 02/25/23 for nebulization #90 mL Results & Data (ED) Vital Signs Vital Signs - 24 hr 06/27/23 02:20 06/27/23 02:20 06/27/23 02:33 Temperature 37.1 C Temperature Source Oral Pulse Rate 108 H 111 H Respiratory Rate 22 Respiratory Effort / Characteristics Non-Labored Spontaneous Respiratory Depth Normal Respiratory Pattern Regular Blood Pressure 144/94 H Blood Pressure Mean 110 Pulse Oximetry 87 L 87 L Oxygen Delivery Method Room Air Room Air Nasal Cannula Oxygen Flow Rate 0 Sepsis Recent Fever Within 48 Hours No Sepsis New/Unexplained Change in Mental Status No Sepsis Action Taken by Nursing Physician Notified Oxygen Flow Rate - Titration 4 Pulse Oximetry Post Tiitration 95 06/27/23 03:51 06/27/23 03:41 06/27/23 04:00 Temperature Temperature Source Pulse Rate 97 H 81 Respiratory Rate 20 20 Respiratory Effort / Characteristics Respiratory Depth Respiratory Pattern Blood Pressure 146/92 H 129/64 Blood Pressure Mean 110 85 Pulse Oximetry 97 96 97 Oxygen Delivery Method Nasal Cannula Nasal Cannula Nasal Cannula Oxygen Flow Rate 5 4 4 Sepsis Recent Fever Within 48 Hours Sepsis New/Unexplained Change in Mental Status Sepsis Action Taken by Nursing Oxygen Flow Rate - Titration Pulse Oximetry Post Tiitration 06/27/23 04:30 06/27/23 05:00 06/27/23 05:30 Temperature Temperature Source Pulse Rate 75 75 73 Respiratory Rate 18 28 H 22 Respiratory Effort / Characteristics Respiratory Depth Respiratory Pattern Blood Pressure 89/55 L 114/53 L 124/53 L Blood Pressure Mean 66 73 76 Pulse Oximetry 97 98 98 Oxygen Delivery Method Nasal Cannula Oxygen Flow Rate 4 Sepsis Recent Fever Within 48 Hours Sepsis New/Unexplained Change in Mental Status Sepsis Action Taken by Nursing Oxygen Flow Rate - Titration Pulse Oximetry Post Tiitration Laboratory Data 06/27/23 02:43 06/27/23 02:43 Lab Results 06/27/23 06/27/23 06/27/23 Range/Units 02:43 02:43 02:43 WBC 9.40 (4.8-10.8) K/ul RBC 3.55 L (4.20-5.40) M/uL Hgb 8.2 L (12.0-16.0) g/dl POC Hgb (12.0-16.0) g/dl Hct 28.3 L (37.0-47.0) % POC Hct (37-47) % MCV 79.7 L (80.0-100.0) fL MCH 23.1 L (25.0-34.0) pg MCHC 29.0 L (32.0-36.0) g/dL RDW Std Deviation 45.0 (36.4-46.3) fL RDW Coeff of Jame 15.4 H (11.5-14.5) % Plt Count 295 (130-400) K/uL MPV 9.0 L (9.4-12.4) fL Immature Gran % (Auto) 0.2 % Neut % (Auto) 65.4 % Lymph % (Auto) 21.1 % Charlton % (Auto) 8.5 % Eos % (Auto) 4.4 % Baso % (Auto) 0.4 % Neut # (Auto) 6.15 (1.40-6.50) K/uL Lymph # (Auto) 1.98 (1.20-3.40) K/uL Charlton # (Auto) 0.80 H (0.11-0.59) K/uL Eos # (Auto) 0.41 (0.00-0.50) K/uL Baso # (Auto) 0.04 (0.00-0.20) K/uL Immature Gran # (Auto) 0.02 (0.01-0.20) K/uL POC Sodium (135-144) mmol/L Sodium 139 (136-145) mmol/L POC Potassium (3.3-5.0) mmol/L Potassium 3.9 (3.5-5.1) mmol/L POC Chloride (101-112) mmol/L Chloride 100 (98-107) mmol/L Carbon Dioxide 35 H (21-32) mmol/L POC Total CO2 (24-31) mmol/L Anion Gap 4 (3-11) POC Anion Gap (16-25) mmol/L POC BUN (7-18) mg/dl BUN 26 H (6-23) mg/dl Creatinine 1.47 H (0.6-1.2) mg/dl POC Creatinine (0.6-1.3) mg/dl Est Cr Clr Drug Dosing 35.3 ml/min Est GFR ( Amer) 38.9 ml/min Est GFR (Non-Af Amer) 33.6 ml/min BUN/Creatinine Ratio 17.7 (10-20) Glucose 249 H (70-99(Fasting)) mg/dl POC Glucose (other) (70-99) mg/dl Calcium 9.3 (8.6-10.3) mg/dl POC Ioniz Calcium Ly (1.12-1.32) mmol/l Total Bilirubin 0.2 (0.2-1.0) mg/dl AST 9 L (13-39) U/L ALT 7 (7-52) U/L Alkaline Phosphatase 103 (34-104) U/L Troponin I High Sens 9.8 (0-14) pg/ml B-Natriuretic Peptide 109 H (0-100) pg/ml Total Protein 6.0 (6.0-8.3) gm/dl Albumin 3.7 (3.4-5.0) gm/dl Globulin 2.3 L (2.5-4.0) gm/dl Albumin/Globulin Ratio 1.6 (0.9-2) Urine Color Urine Appearance (Clear) Urine pH (4.5-7.5) Ur Specific Caruthers (1.000-1.030) Urine Protein (Negative) Urine Glucose (UA) (Negative) Urine Ketones (Negative) Urine Blood (Negative) Urine Nitrite (Negative) Urine Bilirubin (Negative) Urine Urobilinogen (Negative) Ur Leukocyte Esterase (Negative) SARS-CoV-2 (PCR) (Negative) Influenza Type A (PCR) (Neg) Influenza Type B (PCR) (Neg) RSV (RT-PCR) (Neg) 06/27/23 06/27/23 06/27/23 Range/Units 02:53 03:40 03:45 WBC (4.8-10.8) K/ul RBC (4.20-5.40) M/uL Hgb (12.0-16.0) g/dl POC Hgb 8.8 L (12.0-16.0) g/dl Hct (37.0-47.0) % POC Hct 26 L (37-47) % MCV (80.0-100.0) fL MCH (25.0-34.0) pg MCHC (32.0-36.0) g/dL RDW Std Deviation (36.4-46.3) fL RDW Coeff of Jame (11.5-14.5) % Plt Count (130-400) K/uL MPV (9.4-12.4) fL Immature Gran % (Auto) % Neut % (Auto) % Lymph % (Auto) % Charlton % (Auto) % Eos % (Auto) % Baso % (Auto) % Neut # (Auto) (1.40-6.50) K/uL Lymph # (Auto) (1.20-3.40) K/uL Charlton # (Auto) (0.11-0.59) K/uL Eos # (Auto) (0.00-0.50) K/uL Baso # (Auto) (0.00-0.20) K/uL Immature Gran # (Auto) (0.01-0.20) K/uL POC Sodium 138 (135-144) mmol/L Sodium (136-145) mmol/L POC Potassium 4.0 (3.3-5.0) mmol/L Potassium (3.5-5.1) mmol/L POC Chloride 97 L (101-112) mmol/L Chloride (98-107) mmol/L Carbon Dioxide (21-32) mmol/L POC Total CO2 34 H (24-31) mmol/L Anion Gap (3-11) POC Anion Gap 12.0 L (16-25) mmol/L POC BUN 27 H (7-18) mg/dl BUN (6-23) mg/dl Creatinine (0.6-1.2) mg/dl POC Creatinine 1.5 H (0.6-1.3) mg/dl Est Cr Clr Drug Dosing ml/min Est GFR ( Amer) ml/min Est GFR (Non-Af Amer) ml/min BUN/Creatinine Ratio (10-20) Glucose (70-99(Fasting)) mg/dl POC Glucose (other) 239 H (70-99) mg/dl Calcium (8.6-10.3) mg/dl POC Ioniz Calcium Ly 1.25 (1.12-1.32) mmol/l Total Bilirubin (0.2-1.0) mg/dl AST (13-39) U/L ALT (7-52) U/L Alkaline Phosphatase (34-104) U/L Troponin I High Sens (0-14) pg/ml B-Natriuretic Peptide (0-100) pg/ml Total Protein (6.0-8.3) gm/dl Albumin (3.4-5.0) gm/dl Globulin (2.5-4.0) gm/dl Albumin/Globulin Ratio (0.9-2) Urine Color Yellow Urine Appearance Clear (Clear) Urine pH 6.0 (4.5-7.5) Ur Specific Caruthers 1.014 (1.000-1.030) Urine Protein Negative (Negative) Urine Glucose (UA) Trace H (Negative) Urine Ketones Negative (Negative) Urine Blood Negative (Negative) Urine Nitrite Negative (Negative) Urine Bilirubin Negative (Negative) Urine Urobilinogen Negative (Negative) Ur Leukocyte Esterase Negative (Negative) SARS-CoV-2 (PCR) NEGATIVE (Negative) Influenza Type A (PCR) Negative (Neg) Influenza Type B (PCR) Negative (Neg) RSV (RT-PCR) Negative (Neg) Administered Medications Discontinued Medications Methylprednisolone (Methylprednisolone 125 Mg/2 Ml Vial) 125 mg IV NOW STA Stop: 06/27/23 02:42 Last Admin: 06/27/23 03:03 Dose: 125 mg Documented By: DANIEL Discharge Plan Visit Data Chief Complaint: Shortness of Breath/Dyspnea Stated Complaint: SOB ED Provider: Neyda Luciano Discharge Problem: Hypoxia, Anemia, Acute exacerbation of chronic obstructive pulmonary disease, Atrial fibrillation with rapid ventricular response Forms Stand Alone Forms: [facility] Prescriptions Prescriptions: No Action iFerex 150 Forte 150-25-1 mg-mcg-mg capsule 1 cap PO BID furosemide [Lasix] 20 mg tablet 20 mg PO PRN nystatin 100,000 unit/mL suspension 500,000 unit PO QID Rx Instructions: administer 1/2 of dose in each side of the mouth (DME) Oxygen Home Liters Per Minute See Rx Instructions .Route Rx Instructions: As directed- 2lpm all the time spironolactone 50 mg tablet 100 mg PO DAILY Tylenol Extra Strength 500 mg powder in packet 500 mg PO Q4H PRN Rx Instructions: 1-2 tabs every 4-6 hours PRN pain prednisone 20 mg tablet 40 mg PO DAILY Qty: 10 0RF Rx Instructions: Take two tablets each morning until gone. Complete prescription as directed Mucinex 1,200 mg tablet extended release 12hr 1,200 mg PO BID Qty: 60 0RF revefenacin 175 mcg/3 mL solution for nebulization 175 mcg inhalation DAILY Qty: 90 3RF albuterol sulfate 90 mcg/actuation HFA aerosol inhaler 2 puff inhalation Q6H PRN (Reason: Shortness Of Breath Or Wheezing) Qty: 18 4RF azithromycin 250 mg tablet 250 mg PO 3XWK Qty: 36 5RF Rx Instructions: Thursday, Thursday, Thursday arformoterol [Brovana] 15 mcg/2 mL solution for nebulization 2 ml inhalation BID Qty: 360 4RF budesonide 0.5 mg/2 mL suspension for nebulization 0.5 mg inhalation BID Qty: 180 4RF ipratropium-albuterol 0.5 mg-3 mg(2.5 mg base)/3 mL solution for nebulization 3 ml inhalation Q8H PRN (Reason: shortness of breath or wheezing) Qty: 540 2RF Spiriva with HandiHaler 18 mcg capsule, w/inhalation device 18 mcg INHALATION DAILY Qty: 90 2RF montelukast 10 mg tablet 10 mg PO HS Qty: 90 2RF Daliresp 500 mcg tablet 500 mcg PO DAILY Qty: 90 2RF sodium chloride 7 % solution for nebulization 1 inh inhalation BID Qty: 240 6RF insulin lispro [Humalog KwikPen Insulin] 100 unit/mL insulin pen 12 unit SUBCUT TIDM quetiapine 200 mg Tablet 200 mg PO HS levothyroxine 25 mcg Tablet 25 mcg PO QAM famotidine 20 mg Tablet 20 mg PO QAM pantoprazole 40 mg Tablet,Delayed Release (Dr/Ec) 40 mg PO BID mirtazapine 30 mg tablet 30 mg PO HS escitalopram oxalate 10 mg Tablet 15 mg PO QAM Xarelto 20 mg Tablet 20 mg PO QAM metoprolol succinate 25 mg Capsule,Sprinkle,Er 24hr 25 mg PO BID magnesium oxide 400 mg magnesium Tablet 400 mg PO BID polysaccharide iron complex [Poly-Iron] 150 mg iron capsule 150 mg PO BID fluticasone propionate 50 mcg/actuation spray,suspension 50 mcg INTRANASAL DAILY cholecalciferol (vitamin D3) 10 mcg (400 unit) tablet,chewable 10 mcg PO DAILY buspirone 5 mg Tablet 5 mg PO TID PRN (Reason: anxiety) Qty: 60 1RF benzonatate 100 mg Capsule 100 mg PO TID PRN (Reason: cough) Qty: 30 0RF cyanocobalamin (vitamin B-12) 1,000 mcg tablet 1,000 mcg PO DAILY Qty: 90 1RF Rx Instructions: purchase over the counter metformin 500 mg Tablet Extended Release 24 Hr 500 mg PO BID Qty: 60 0RF Rx Instructions: take with breakfast and with your evening dinner meal insulin glargine [Lantus Solostar U-100 Insulin] 100 unit/mL (3 mL) insulin pen 15 unit subcut QAM Qty: 1 0RF Rx Instructions: per 1st Referrals Referrals: Dayna Bullard PA-C [Primary Care Provider] -
[2023-06-27 03:06] LABS: Basophils # (auto) 0.04 K/uL (0.00-0.20); Basophils % (auto) 0.4 %; Eosinophils # (auto) 0.41 K/uL (0.00-0.50); Eosinophils % (auto) 4.4 %; Hematocrit (blood only) 28.3 % (37.0-47.0); Hemoglobin 8.2 g/dl (12.0-16.0); Immature Granulocytes # (auto) 0.02 K/uL (0.01-0.20); Immature Granulocytes % (auto) 0.2 %; Lymphocytes # (auto) 1.98 K/uL (1.20-3.40); Lymphocytes % (auto) 21.1 %; Mean Corpuscular Hemoglobin 23.1 pg (25.0-34.0); Mean Corpuscular Volume 79.7 fL (80.0-100.0); Monocytes % (auto) 8.5 %; Neutrophils # (auto) 6.15 K/uL (1.40-6.50); Neutrophils % (auto) 65.4 %; Platelet Count 295 K/uL (130-400); RDW Coefficient of Variation 15.4 % (11.5-14.5); Red Blood Count 3.55 M/uL (4.20-5.40)
[2023-06-27 03:07] LABS: iSTAT Creatinine 1.5 mg/dl (0.6-1.3); iSTAT Hemoglobin 8.8 g/dl (12.0-16.0); iSTAT Ionized Calcium 1.25 mmol/l (1.12-1.32)
[2023-06-27 03:23] LABS: Albumin Globulin Ratio 1.6 (0.9-2); Albumin Level 3.7 gm/dl (3.4-5.0); BUN Creatinine Ratio 17.7 (10-20); Bilirubin,Total 0.2 mg/dl (0.2-1.0); Calcium 9.3 mg/dl (8.6-10.3); Creatinine Clr Calc Pharmacy 35.3 ml/min; Est GFR (African American) 38.9 ml/min; Est GFR (Non-African American) 33.6 ml/min; Globulin 2.3 gm/dl (2.5-4.0); Potassium 3.9 mmol/L (3.5-5.1)
[2023-06-27 03:29] LABS: Troponin I High Sensitivity 9.8 pg/ml (0-14)
[2023-06-27 04:06] LABS: Appearance Urine Clear (Clear); Bilirubin Urine Negative (Negative); Blood Urine Negative (Negative); Color Urine Yellow; Glucose Urine UA Trace (Negative); Ketones Urine Negative (Negative); Leukocyte Esterase Urine Negative (Negative); Nitrite Urine Negative (Negative); Protein Urine Negative (Negative); Specific Gravity Urine 1.014 (1.000-1.030); Urobilinogen Urine Negative (Negative)
[2023-06-27 04:34] LABS: Influenza A virus by PCR Negative (Neg); Influenza B virus by PCR Negative (Neg); RSV by PCR Negative (Neg); SARS CoV2 RNA(COVID-19) Ceph NEGATIVE (Negative)
--- NOTE | 2023-06-27 05:15 | History & Physical Report ---
Date of Service June 27, 2023 Assessment & Plan (1) Acute on chronic respiratory failure with hypoxia: (2) Acute exacerbation of chronic obstructive pulmonary disease: (3) Anemia: (4) VIJAY (obstructive sleep apnea): (5) History of pulmonary embolism: (6) Obesity hypoventilation syndrome: (7) Hypertension: (8) GERD (gastroesophageal reflux disease): (9) KATHLEEN (generalized anxiety disorder): Plan Acute on chronic respiratory failure with hypoxia/COPD exacerbation/home oxygen delivery device malfunction- Resume all patient's usual medications and inhalers. Patient reports that she had been in her usual state of health, until her oxygen delivery device malfunctioned, and no notes available to [place] effects at or replace it Continue albuterol HFA, arformoterol nebulizer, azithromycin 3 times per week, Tessalon Perles 3 times daily as needed, Pulmicort Respules 0.5 mg inhaled twice daily, guaifenesin extended release 12 mg p.o. twice daily, montelukast 10 mg daily, Spiriva, and Roflumilast 500 mcg daily Nasal cannula oxygen, titrate to keep pulse ox around 92% Diabetes mellitus- Continue glargine 15 units subcu every morning, Placed on Accu-Cheks with NovoLog SSI PE history/thrombophlebitis/PAF- Continue Xarelto 20 mg every morning client services administrator to help coordinate repair/replacement of home delivery device History of Present Illness Chief Complaint: The patient presents to the emergency department with complaint of worsening shortness of breath over the past 24 hours. She reports that her oxygen delivery apparatus stopped working the previous evening, and had called to get somebody cannot fix it, however, there is no available polysomnographic technician. She lasted additional 24 hours, and then since that time with worsening shortness of breath she presents to the ED for assessment Primary Care Provider: Danya Bullard The patient is a 78-year-old female with a past medical history including COPD with exacerbations, anemia, history of acute on chronic respiratory failure with hypoxia, hypothyroidism, history of PE, atrial fibrillation, hypersomnolence disorder, obesity hypoventilation syndrome, CHF, acid reflux, diabetes mellitus, KATHLEEN and septic thrombophlebitis. The patient had been in her usual level of health, when her oxygen delivery device malfunctioned, and without anyone available to fix it, she developed worsening shortness of breath, dyspnea on exertion and hypoxia, and presented to the ED for assessment. In ED she was found to be 87% on room air on arrival, and immediately improved with nasal cannula to target of 92-94%. Patient will be admitted to the hospital with her usual medications, until arrangements can be made for repair or replacement of oxygen delivery device for home Allergies Allergy/AdvReac Type Severity Reaction Status Date / Time rabies vaccine, duck-embryo Allergy Severe HIVES Verified 06/09/22 12:02 ragweed pollen Allergy Unknown UNKNOWN Verified 06/09/22 12:02 tomato Allergy Unknown HIVES Verified 06/09/22 12:02 Home Medications Medication Instructions Recorded Confirmed Type escitalopram oxalate 10 mg tablet 15 mg PO QAM 02/10/19 12/12/22 History famotidine 20 mg tablet 20 mg PO QAM 02/10/19 12/12/22 History levothyroxine 25 mcg tablet 25 mcg PO QAM 02/10/19 12/12/22 History metoprolol succinate 25 mg capsule 25 mg PO BID 02/10/19 12/12/22 History sprinkle, ext. release 24 hr mirtazapine 30 mg tablet 30 mg PO HS 02/10/19 12/12/22 History pantoprazole 40 mg tablet,delayed 40 mg PO BID 02/10/19 12/12/22 History release quetiapine 200 mg tablet 200 mg PO HS 02/10/19 12/12/22 History rivaroxaban 20 mg tablet (Xarelto) 20 mg PO QAM 02/10/19 12/12/22 History magnesium oxide 400 mg PO BID 02/20/19 12/12/22 History insulin lispro 100 unit/mL 12 unit subcut TIDM 05/22/20 12/12/22 History subcutaneous pen (Humalog KwikPen (U-100) Insulin) polysaccharide iron complex 150 mg 150 mg PO BID 02/27/21 12/12/22 History iron capsule (Poly-Iron) sodium chloride 7 % for 1 inh inhalation BID #240 mL 06/13/22 12/12/22 Rx nebulization cholecalciferol (vitamin D3) 10 10 mcg PO DAILY 10/07/22 12/12/22 History mcg (400 unit) chewable tablet fluticasone propionate 50 50 mcg intranasal DAILY 10/07/22 12/12/22 History mcg/actuation nasal spray,suspension benzonatate 100 mg capsule 100 mg PO TID PRN cough #30 caps 10/18/22 12/12/22 Rx buspirone 5 mg tablet 5 mg PO TID PRN anxiety #60 tabs 10/18/22 12/12/22 Rx cyanocobalamin (vitamin B-12) 1,000 mcg PO DAILY #90 tabs 10/18/22 12/12/22 Rx 1,000 mcg tablet insulin glargine 100 unit/mL (3 15 unit (0.15 mL) subcut QAM #1 mL 10/18/22 12/12/22 Rx mL) subcutaneous pen (Lantus Solostar U-100 Insulin) metformin 500 mg tablet,extended 500 mg PO BID #60 tabs 10/18/22 12/12/22 Rx release 24 hr Oxygen Home 11/18/22 12/12/22 History acetaminophen 500 mg oral powder 500 mg PO Q4H PRN 11/18/22 12/12/22 History packet (Tylenol Extra Strength) furosemide 20 mg tablet (Lasix) 20 mg PO PRN 11/18/22 12/12/22 History iron polysacch cplx 150 mg 1 cap PO BID 11/18/22 12/12/22 History iron-vit B12 25 mcg-folic acid 1 mg capsule (iFerex) nystatin 100,000 unit/mL oral 500,000 unit PO QID 11/18/22 12/12/22 History suspension spironolactone 50 mg tablet 100 mg PO DAILY 11/18/22 12/12/22 History albuterol sulfate 90 mcg/actuation 2 puff inhalation Q6H PRN 12/12/22 12/12/22 Rx aerosol inhaler Shortness Of Breath Or Wheezing #18 grams arformoterol 15 mcg/2 mL solution 2 ml inhalation BID #360 mL 12/12/22 12/12/22 Rx for nebulization (Brovana) azithromycin 250 mg tablet 250 mg PO 3XWK #36 tabs 12/12/22 12/12/22 Rx budesonide 0.5 mg/2 mL suspension 0.5 mg (2 mL) inhalation BID #180 12/12/22 12/12/22 Rx for nebulization mL ipratropium 0.5 mg-albuterol 3 mg 3 ml inhalation Q8H PRN shortness 12/12/22 12/12/22 Rx (2.5 mg base)/3 mL nebulization of breath or wheezing #540 mL soln montelukast 10 mg tablet 10 mg PO HS #90 tabs 12/12/22 12/12/22 Rx roflumilast 500 mcg tablet 500 mcg PO DAILY #90 tabs 12/12/22 12/12/22 Rx (Daliresp) tiotropium bromide 18 mcg capsule 18 mcg inhalation DAILY #90 12/12/22 12/12/22 Rx with inhalation device (Spiriva inhalations with HandiHaler) guaifenesin 1,200 mg tablet, 1,200 mg PO BID #60 tabs 01/07/23 Rx extended release 12 hr (Mucinex) prednisone 20 mg tablet 40 mg PO DAILY #10 tabs 01/07/23 Rx revefenacin 175 mcg/3 mL solution 175 mcg (3 mL) inhalation DAILY 02/25/23 Rx for nebulization #90 mL Past Med/Surg History Medical History Acute and chronic respiratory failure with hypoxia Acute on chronic combined systolic (congestive) and diastolic (congestive) heart failure Acute on chronic respiratory failure with hypoxia and hypercapnia Acute respiratory failure with hypoxia Advanced care planning/counseling discussion Air hunger Atelectasis Breast cancer, right breast CHF (congestive heart failure) COPD (chronic obstructive pulmonary disease) COPD exacerbation Diabetes Dyspnea and respiratory abnormalities Elevated troponin Endocarditis KATHLEEN (generalized anxiety disorder) GERD (gastroesophageal reflux disease) GI bleed Hypoxia Major depression, recurrent, full remission MSSA (methicillin susceptible Staphylococcus aureus) septicemia Nausea & vomiting Obesity hypoventilation syndrome Palliative care encounter Panic attack as reaction to stress QT prolongation RSV (respiratory syncytial virus infection) Septic thrombophlebitis SOB (shortness of breath) Spinal abscess Syncope Vomiting and diarrhea Surgical History History of lumpectomy Family History Other Coronary heart disease Stroke Social History Smoking Status: Former smoker Second Hand Exposure: No; Do You Dip or Chew Tobacco: No; Hx Alcohol Use: No Hx Substance Use: No Preferred Language: Nepali Communication Ability: Effective Software Application Tester Required: No Beliefs That Will Affect Care: None marital status: Single Current Living Situation: Alone Current Living Situation Comment: caregiver 5 nights a week, caregiver for 3hrs a day 3 days a week current occupational status: retired How many Children do You have: 0 Feels Safe at Home: Yes Assistive Devices: BiPap, CPAP, Nebulizer, Oxygen - Continuous, Scooter/Electric Scooter, Walker and Other Review of Systems Review of Systems: The patient denies chest pain, palpitations, cough, lower extremity swelling, sore throat, fevers, chills, sweats, weight change, fatigue, nausea, vomiting, diarrhea , constipation, abdominal pain, pelvic pain, blood in urine or stool, dysuria, urinary frequency or urgency, lightheadedness, dizziness, headache, memory loss, loss of consciousness, rash, abnormal bruising or bleeding, imbalance, focal weakness, numbness or tingling in arms or legs, generalized arthralgias or myalgias, back or neck pain, or night sweats. The review of systems is otherwise negative other than for that already noted above, and at least 10 systems have been reviewed. Physical Exam Physical Exam: The patient is awake, alert and oriented 3, well developed and well nourished, normocephalic and atraumatic, lying in bed and in no acute distress. HEENT--PERRL, EOMI, mucous membranes and oropharynx normal Neck--supple. No JVD. No bruits. Thyroid normal, trachea midline, no adenopathy. Heart--normal S1 and S2. No murmurs, rubs or gallops. Lungs--clear bilaterally, decreased breath sounds throughout. No respiratory distress, no accessory muscle use. Abdomen--normal bowel sounds and soft. Nontender. Nondistended. Morbidly obese Extremities--no cyanosis or clubbing. No edema. There are good distal pulses b/l. Dermatologic--normal skin turgor, normal color, no abnormal lymph nodes, no rash. Neurologic--cranial nerves II through XII grossly intact. Rheumatologic--normal range of motion. Psychiatric--normal affect. Results & Data Results & Data Vital Signs (Past 12 Hours) Vital Signs Temp Pulse Resp BP Pulse Ox O2 Del Method O2 Flow Rate 10/14/23 04:30 75 18 89/55 L 97 Nasal Cannula 4 06/27/23 04:00 81 20 129/64 97 Nasal Cannula 4 06/27/23 03:41 97 H 20 146/92 H 96 Nasal Cannula 4 06/27/23 03:51 97 Nasal Cannula 5 06/27/23 02:33 111 H 06/27/23 02:20 87 L Room Air, Nasal Cannula 0 06/27/23 02:20 37.1 C 108 H 22 144/94 H 87 L Room Air Laboratory Results Laboratory Results WBC 9.40 K/ul (4.8-10.8) 06/27/23 02:43 RBC 3.55 M/uL (4.20-5.40) L 06/27/23 02:43 Hgb 8.2 g/dl (12.0-16.0) L 06/27/23 02:43 POC Hgb 8.8 g/dl (12.0-16.0) L 06/27/23 02:53 Hct 28.3 % (37.0-47.0) L 06/27/23 02:43 POC Hct 26 % (37-47) L 06/27/23 02:53 MCV 79.7 fL (80.0-100.0) L 06/27/23 02:43 MCH 23.1 pg (25.0-34.0) L 06/27/23 02:43 MCHC 29.0 g/dL (32.0-36.0) L 06/27/23 02:43 RDW Std Deviation 45.0 fL (36.4-46.3) 06/27/23 02:43 RDW Coeff of Jame 15.4 % (11.5-14.5) H 06/27/23 02:43 Plt Count 295 K/uL (130-400) 06/27/23 02:43 MPV 9.0 fL (9.4-12.4) L 06/27/23 02:43 Immature Gran % (Auto) 0.2 % 06/27/23 02:43 Neut % (Auto) 65.4 % 06/27/23 02:43 Lymph % (Auto) 21.1 % 06/27/23 02:43 [place] % (Auto) 8.5 % 06/27/23 02:43 Eos % (Auto) 4.4 % 06/27/23 02:43 Baso % (Auto) 0.4 % 06/27/23 02:43 Neut # (Auto) 6.15 K/uL (1.40-6.50) 06/27/23 02:43 Lymph # (Auto) 1.98 K/uL (1.20-3.40) 06/27/23 02:43 [place] # (Auto) 0.80 K/uL (0.11-0.59) H 06/27/23 02:43 Eos # (Auto) 0.41 K/uL (0.00-0.50) 06/27/23 02:43 Baso # (Auto) 0.04 K/uL (0.00-0.20) 06/27/23 02:43 Immature Gran # (Auto) 0.02 K/uL (0.01-0.20) 06/27/23 02:43 POC Sodium 138 mmol/L (135-144) 06/27/23 02:53 Sodium 139 mmol/L (136-145) 06/27/23 02:43 POC Potassium 4.0 mmol/L (3.3-5.0) 06/27/23 02:53 Potassium 3.9 mmol/L (3.5-5.1) 06/27/23 02:43 POC Chloride 97 mmol/L (101-112) L 06/27/23 02:53 Chloride 100 mmol/L (98-107) 06/27/23 02:43 Carbon Dioxide 35 mmol/L (21-32) H 06/27/23 02:43 POC Total CO2 34 mmol/L (24-31) H 06/27/23 02:53 Anion Gap 4 (3-11) 06/27/23 02:43 POC Anion Gap 12.0 mmol/L (16-25) L 06/27/23 02:53 POC BUN 27 mg/dl (7-18) H 06/27/23 02:53 BUN 26 mg/dl (6-23) H 06/27/23 02:43 Creatinine 1.47 mg/dl (0.6-1.2) H 06/27/23 02:43 POC Creatinine 1.5 mg/dl (0.6-1.3) H 06/27/23 02:53 Est Cr Clr Drug Dosing 35.3 ml/min 06/27/23 02:43 Est GFR ( Amer) 38.9 ml/min 06/27/23 02:43 Est GFR (Non-Af Amer) 33.6 ml/min 06/27/23 02:43 BUN/Creatinine Ratio 17.7 (10-20) 06/27/23 02:43 Glucose 249 mg/dl (70-99(Fasting)) H 06/27/23 02:43 POC Glucose (other) 239 mg/dl (70-99) H 06/27/23 02:53 Calcium 9.3 mg/dl (8.6-10.3) 06/27/23 02:43 POC Ioniz Calcium Ly 1.25 mmol/l (1.12-1.32) 06/27/23 02:53 Total Bilirubin 0.2 mg/dl (0.2-1.0) 06/27/23 02:43 AST 9 U/L (13-39) L 06/27/23 02:43 ALT 7 U/L (7-52) 06/27/23 02:43 Alkaline Phosphatase 103 U/L (34-104) 06/27/23 02:43 Troponin I High Sens 9.8 pg/ml (0-14) 06/27/23 02:43 B-Natriuretic Peptide 109 pg/ml (0-100) H 06/27/23 02:43 Total Protein 6.0 gm/dl (6.0-8.3) 06/27/23 02:43 Albumin 3.7 gm/dl (3.4-5.0) 06/27/23 02:43 Globulin 2.3 gm/dl (2.5-4.0) L 06/27/23 02:43 Albumin/Globulin Ratio 1.6 (0.9-2) 06/27/23 02:43 Urine Color Yellow 06/27/23 03:40 Urine Appearance Clear (Clear) 06/27/23 03:40 Urine pH 6.0 (4.5-7.5) 06/27/23 03:40 Ur Specific [place] 1.014 (1.000-1.030) 06/27/23 03:40 Urine Protein Negative (Negative) 06/27/23 03:40 Urine Glucose (UA) Trace (Negative) H 06/27/23 03:40 Urine Ketones Negative (Negative) 06/27/23 03:40 Urine Blood Negative (Negative) 06/27/23 03:40 Urine Nitrite Negative (Negative) 06/27/23 03:40 Urine Bilirubin Negative (Negative) 06/27/23 03:40 Urine Urobilinogen Negative (Negative) 06/27/23 03:40 Ur Leukocyte Esterase Negative (Negative) 06/27/23 03:40 SARS-CoV-2 (PCR) NEGATIVE (Negative) 06/27/23 03:45 Influenza Type A (PCR) Negative (Neg) 06/27/23 03:45 Influenza Type B (PCR) Negative (Neg) 06/27/23 03:45 RSV (RT-PCR) Negative (Neg) 06/27/23 03:45 Code Status & VTE Plan Code Status Full code VTE Prophylaxis Plan VTE Prophylaxis will be ordered: Yes PG Care Time/CCT Total # of Minutes Spent Total Time Spent with Patient: Total time spent is greater than 50% in coordination of care (as documented) at patient's floor/unit and/or counseling patient: Coding Level of Care Code 95166 INT INP/OBS CARE 3/75MIN Diagnoses Acute on chronic respiratory failure with hypoxia J96.21 Acute exacerbation of chronic obstructive pulmonary disease J44.1 Anemia D64.9 Anemia type: unspecified type VIJAY (obstructive sleep apnea) G47.33 History of pulmonary embolism Z86.711 Obesity hypoventilation syndrome E66.2 Hypertension I10 Hypertension type: essential hypertension GERD (gastroesophageal reflux disease) K21.9 Esophagitis presence: esophagitis presence not specified KATHLEEN (generalized anxiety disorder) F41.1 (3) Anemia Anemia type: unspecified type Qualified Code(s): D64.9 - Anemia, unspecified (7) Hypertension Hypertension type: essential hypertension Qualified Code(s): I10 - Essential (primary) hypertension (8) GERD (gastroesophageal reflux disease) Esophagitis presence: esophagitis presence not specified Qualified Code(s): K21.9 - Gastro-esophageal reflux disease without esophagitis
[2023-06-27] MEDS ORDERED: ONDANSETRON INJ 2 MG/ML 2 ML VIAL IV PRN (06:50)
[2023-06-27] MEDS ORDERED: GLUCAGON FOR INJ 1 MG VIAL SQ PRN (06:50)
[2023-06-27] MEDS ORDERED: CARBOHYDRATES FOR HYPOGLYCEMIA PO PRN (06:50)
[2023-06-27] MEDS ORDERED: ACETAMINOPHEN 325 MG TAB PO PRN (06:50)
[2023-06-27] MEDS ORDERED: GLUCOSE 40% GEL 15 GM TUBE PO PRN (06:50)
[2023-06-27] MEDS ORDERED: BENZONATATE 100 MG CAPSULE PO PRN (06:50)
[2023-06-27] MEDS ORDERED: DEXTROSE 50% 50 ML SYRINGE IV PRN (06:50)
[2023-06-27] MEDS ORDERED: GLUCOSE 10 TAB/TUBE PO PRN (06:50)
[2023-06-27] MEDS: SODIUM CHLOR 7% 4 ML NEB INH SCH ×2 (07:42→19:18)
[2023-06-27] MEDS: FORMOTEROL 20 MCG/2 ML VIAL INH SCH ×2 (07:43→19:18)
[2023-06-27] MEDS: BUDESONIDE 0.5 MG/2 ML VIAL (PULMICORT) INH SCH ×2 (07:43→19:18)
--- NOTE | 2023-06-27 08:25 | Hospitalist Progress Note ---
Date of Service June 27, 2023 Assessment & Plan (1) Acute on chronic respiratory failure with hypoxia: (2) Acute exacerbation of chronic obstructive pulmonary disease: (3) Anemia: (4) VIJAY (obstructive sleep apnea): (5) History of pulmonary embolism: (6) Obesity hypoventilation syndrome: (7) Hypertension: (8) GERD (gastroesophageal reflux disease): (9) KATHLEEN (generalized anxiety disorder): Plan Patient is a 78 y/o female with PMHx of COPD with history of exacerbations that was admitted due to acute respiratory failure with hypoxia after her home oxygen malfunctioned. COPD - Patient on nasal cannula at 2 lpm with today's Oxygen level at 93-94%. 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 coordination of home oxygen replacement Diabetes Mellitus Type 2 - Continue Insulin Glargine 15 U SubQ QAM - Placed on Accu-Checks with Novolog SSI History of PE/ Thrombophlebitis/ PAF - Continue Xarelto 20mg QAM Hypothyroidism - Continue Levothyroxine 25 mcg PO daily Dispo: Admit to Telemetry; May discharge once home oxygen is coordinated/replaced if she remains clinically stable DVT Px: Xarelto 20mg Diet: Heart Healthy, Carb Consistent or DM2 Admission and Anticipated Discharge Date Admission Date: June 27, 2023 Supervising Physician Co-Signing Physician Notes I personally examined the patient and verified all pichardo points of history and exam, discussed case, and agree with decision making with Dr Mckeon feeling a bit worse as the day goes onfeels like she is starting to have a COPD exacerbationmore short of breath. Vitals noted, in general she appears mildly anxious in mild respiratory distress. Diminished air entry with faint bilateral wheezing. No accessory muscle use. Severe COPD with mild exacerbationgiven that she is wheezing and feeling more short of breath, I do suspect she is got a little bit of an exacerbation, probably brought on by her brittle COPD and then not having her oxygenbut at the same time, we will try to stave off any worseningcorticosteroids, increase her Zithromax for now, nebulizers as needed continue home meds. DVT prophylaxisanticoagulated with Xarelto diabetessugars uncontrolled, anticipate worsening with steroidsdouble Lantus Howard Morse is a 78 y/o female patient with PMHx of COPD on home oxygen with exacerbations, anemia, history of acute on chronic respiratory failure with hypoxia, hypothyroidism, history of PE, atrial fibrillation, hypersomnolence disorder, obesity hypoventilation syndrome, CHF, acid reflux, diabetes mellitus, KATHLEEN and septic thrombophlebitis. She was admitted due to lack of home oxygen, and is planned to be discharged once her home oxygen is coordinated. She was seen at bedside today and found to be awake, alert, and oriented. She was able to recount what had happened ad stated that she became significantly SOB and had to use backup oxygen supply she had that only had 1 hour worth of oxygen. After, she states her SOB was becoming worse and asked to be taken to the ED. She refers having some SOB but better when compared to yesterday. She denies having chest pain, fevers, chills, or any other additional symptom. Review of Systems Review of Systems: As per HPI. Physical Exam Physical Exam: General: Alert. Awake. Oriented. Afebrile. No acute distress. Eyes: pupils equal and reactive to light bilaterally, extraocular movements intact. Cardiac: Regular rate and rhythm, no murmurs/rubs/gallops. Respiratory: Clear to auscultation bilaterally a/p, Decreased breath sounds throughout, No increased work of breathing. Symmetrical chest rise. No respiratory distress. Abdomen: Soft, nontender, nondistended. Bowel sounds present. Lower Extremities: Left LE swelling greater than the right, which patient states has bene there chronically. Calf tenderness bilaterally. Jonathan's negative bilaterally. Psych: Euthymic affect. Mood and affect congruence. Regular speech rate and content. Results & Data Results & Data Vital Signs (Past 12 Hours) Vital Signs Temp Pulse Pulse Resp BP Pulse Ox O2 Del Method 06/27/23 07:43 66 18 100 Nasal Cannula 06/27/23 07:03 69 06/27/23 06:30 73 20 130/73 95 06/27/23 06:00 71 24 137/56 L 99 06/27/23 05:30 73 22 124/53 L 98 06/27/23 05:00 75 28 H 114/53 L 98 06/27/23 04:30 75 18 89/55 L 97 Nasal Cannula 06/27/23 04:00 81 20 129/64 97 Nasal Cannula 06/27/23 03:41 97 H 20 146/92 H 96 Nasal Cannula 06/27/23 03:51 97 Nasal Cannula 06/27/23 02:33 111 H 06/27/23 02:20 87 L Room Air, Nasal Cannula 06/27/23 02:20 37.1 C 108 H 22 144/94 H 87 L Room Air O2 Flow Rate 06/27/23 07:43 4 06/27/23 07:03 06/27/23 06:30 06/27/23 06:00 06/27/23 05:30 06/27/23 05:00 06/27/23 04:30 4 06/27/23 04:00 4 06/27/23 03:41 4 06/27/23 03:51 5 06/27/23 02:33 06/27/23 02:20 0 06/27/23 02:20 (3) Anemia Anemia type: unspecified type Qualified Code(s): D64.9 - Anemia, unspecified (7) Hypertension Hypertension type: essential hypertension Qualified Code(s): I10 - Essential (primary) hypertension (8) GERD (gastroesophageal reflux disease) Esophagitis presence: esophagitis presence not specified Qualified Code(s): K21.9 - Gastro-esophageal reflux disease without esophagitis
[2023-06-27 08:44] LABS: Hematocrit (blood only) 27.6 % (37.0-47.0)
[2023-06-27] MEDS: ROFLUMILAST 500 MCG TAB PO SCH (08:58)
[2023-06-27] MEDS: RIVAROXABAN 20 MG TAB PO SCH (08:58)
[2023-06-27] MEDS: MAGNESIUM OXIDE 400 MG TAB PO SCH ×2 (08:58→20:55)
[2023-06-27] MEDS: ESCITALOPRAM OXALATE 10 MG TAB PO SCH (08:59)
[2023-06-27] MEDS: CHOLECALCIFEROL 400 UNITS 10 MCG TAB PO SCH (08:59)
[2023-06-27] MEDS: CYANOCOBALAMIN (B-12) 500 MCG TABLET PO SCH (08:59)
[2023-06-27] MEDS: FAMOTIDINE 20 MG TAB PO SCH (08:59)
[2023-06-27] MEDS: LEVOTHYROXINE SODIUM 25 MCG TABLET PO SCH (09:00)
[2023-06-27] MEDS ORDERED: SPIRONOLACTONE 100 MG TAB PO SCH (09:00)
[2023-06-27] MEDS: PANTOprazole 40 MG TAB PO SCH ×2 (09:00→20:55)
[2023-06-27] MEDS: guaiFENesin 600 MG TABCR PO SCH ×2 (09:00→20:54)
[2023-06-27] MEDS: IRON POLYSACCHARIDE COMPLEX 150 MG CAPSULE PO SCH ×2 (09:00→20:55)
[2023-06-27] MEDS ORDERED: LANTUS PER UNIT CHARGE SC SCH (09:00)
[2023-06-27] MEDS: metFORMIN HCL ER 500 MG TABCR PO SCH ×2 (09:00→20:54)
[2023-06-27] MEDS: UMECLIDINIUM BROMIDE 62.5MCG/BLISTER 7 PUFFS/INHALER INH SCH (09:00)
[2023-06-27] MEDS: METOPROLOL SUCC 25MG EXT REL TAB PO SCH ×2 (09:33→20:55)
[2023-06-27] MEDS: INSULIN ASPART PER UNIT CHARGE SC SCH ×4 (09:40→21:02)
[2023-06-27] MEDS: ALBUTEROL 0.083% NEBU SOLN 3 ML VIAL NEB PRN ×2 (11:53→16:30)
--- NOTE | 2023-06-27 11:56 | XRay Report ---
XR chest 1V portable CLINICAL HISTORY: Dyspnea TECHNIQUE: Single frontal radiograph of the chest was obtained. Comparison: Comparison is made to 11/29/2022 FINDINGS: No lines and tubes are seen. Cardiomegaly is noted. The aortic arch is calcified. Bilateral lower janet g predominant airspace opacities are seen. No evidence of pleural effusion or pneumothorax. IMPRESSION: Bilateral lower lung predominant airspace opacities which may represent atelectasis, pneumonia, and/o r aspiration. ACT 112: Negative or not required by law. Electronically signed by: Jonatan Moreno M.D. 06/27/2023 11:53 AM
[2023-06-27] MEDS ORDERED: ALBUT/IPRATROP 3MG/0.5MG NEB 3 ML VIAL NEB STA (18:33)
[2023-06-27] MEDS: ALBUT/IPRATROP 3MG/0.5MG NEB 3 ML VIAL NEB SCH ×2 (19:19→22:24)
--- NOTE | 2023-06-27 19:32 | Billing Data ---
Date of Service June 27, 2023 Coding Level of Care Code 38680 SUB INP/OBS CARE 3MIN
[2023-06-27] MEDS ORDERED: AZITHROMYCIN 250 MG TAB PO ONE (19:45)
[2023-06-27] MEDS: methylPREDNISolone 40 MG in SYRINGE 0 ML IV SCH (20:54)
[2023-06-27] MEDS: MONTELUKAST SODIUM 10 MG TABLET PO SCH (20:55)
[2023-06-27] MEDS: MIRTAZAPINE TAB 15 MG TAB PO SCH (20:55)
[2023-06-27] MEDS: QUEtiapine FUMARATE 200 MG TAB PO SCH (20:55)
[2023-06-27] MEDS: LANTUS PER UNIT CHARGE SC SCH (21:02)
[2023-06-28] MEDS: ALBUTEROL HFA 8 GM INHALER INH PRN (00:48)
[2023-06-28 01:28] LABS: Hematocrit (blood only) 27.5 % (37.0-47.0); Hemoglobin 8.1 g/dl (12.0-16.0)
[2023-06-28] MEDS: ALBUT/IPRATROP 3MG/0.5MG NEB 3 ML VIAL NEB SCH ×5 (03:02→18:29)
[2023-06-28] MEDS: LEVOTHYROXINE SODIUM 25 MCG TABLET PO SCH (05:38)
[2023-06-28 06:58] LABS: Albumin Level 3.6 gm/dl (3.4-5.0); Est GFR (African American) 62.1 ml/min; Est GFR (Non-African American) 53.5 ml/min; Phosphorus 3.4 mg/dl (2.5-4.9); Potassium 5.2 mmol/L (3.5-5.1)
[2023-06-28 07:03] LABS: Basophils # (auto) 0.02 K/uL (0.00-0.20); Basophils % (auto) 0.2 %; Hematocrit (blood only) 27.2 % (37.0-47.0); Hemoglobin 7.8 g/dl (12.0-16.0); Hypochromasia Present; Immature Granulocytes # (auto) 0.08 K/uL (0.01-0.20); Immature Granulocytes % (auto) 0.7 %; Lymphocytes # (auto) 0.67 K/uL (1.20-3.40); Mean Corpuscular Hemoglobin 22.5 pg (25.0-34.0); Mean Corpuscular Hgb Conc 28.7 g/dL (32.0-36.0); Mean Corpuscular Volume 78.6 fL (80.0-100.0); Mean Platelet Volume 9.4 fL (9.4-12.4); Monocytes # (auto) 0.41 K/uL (0.11-0.59); Monocytes % (auto) 3.7 %; Neutrophils # (auto) 9.97 K/uL (1.40-6.50); Neutrophils % (auto) 89.4 %; Platelet Count 308 K/uL (130-400); Polychromasia 1+; RDW Coefficient of Variation 15.4 % (11.5-14.5); RDW Standard Deviation 44.1 fL (36.4-46.3); Red Blood Count 3.46 M/uL (4.20-5.40); White Blood Count 11.15 K/ul (4.8-10.8)
--- NOTE | 2023-06-28 07:38 | Electrocardiogram Report ---
Test Reason : Blood Pressure : / mmHG Vent. Rate : 121 BPM Atrial Rate : 000 BPM P-R Int : 000 ms QRS Dur : 066 ms QT Int : 360 ms P-R-T Axes : 000 018 102 degrees QTc Int : 511 ms Atrial fibrillation with rapid ventricular response Nonspecific ST and T wave abnormality Abnormal ECG When compared with ECG of 29-NOV-2022 08:25, Atrial fibrillation has replaced Sinus rhythm Vent. rate has increased BY 40 BPM Nonspecific T wave abnormality, worse in Lateral leads Confirmed by Vick Moe ([id number]) on 06/28/2023 7:38:31 AM Referred By: Dayna Bullard Confirmed By:Vick Moe
[2023-06-28] MEDS: BUDESONIDE 0.5 MG/2 ML VIAL (PULMICORT) INH SCH ×2 (07:40→18:28)
[2023-06-28] MEDS: FORMOTEROL 20 MCG/2 ML VIAL INH SCH ×2 (07:40→18:28)
[2023-06-28] MEDS: SODIUM CHLOR 7% 4 ML NEB INH SCH ×2 (07:40→18:30)
[2023-06-28] MEDS: INSULIN ASPART PER UNIT CHARGE SC SCH ×4 (08:26→21:15)
[2023-06-28] MEDS: LANTUS PER UNIT CHARGE SC SCH ×2 (08:27→21:15)
[2023-06-28] MEDS: metFORMIN HCL ER 500 MG TABCR PO SCH ×2 (08:58→21:16)
[2023-06-28] MEDS: MAGNESIUM OXIDE 400 MG TAB PO SCH ×2 (08:58→21:18)
[2023-06-28] MEDS: PANTOprazole 40 MG TAB PO SCH ×2 (08:59→21:20)
[2023-06-28] MEDS: METOPROLOL SUCC 25MG EXT REL TAB PO SCH ×2 (08:59→21:21)
[2023-06-28] MEDS: methylPREDNISolone 40 MG in SYRINGE 0 ML IV SCH (08:59)
[2023-06-28] MEDS: guaiFENesin 600 MG TABCR PO SCH ×2 (08:59→21:16)
[2023-06-28] MEDS: SPIRONOLACTONE 25 MG TAB PO SCH (09:00)
[2023-06-28] MEDS: IRON POLYSACCHARIDE COMPLEX 150 MG CAPSULE PO SCH ×2 (09:00→21:19)
[2023-06-28] MEDS: FAMOTIDINE 20 MG TAB PO SCH (09:00)
[2023-06-28] MEDS: RIVAROXABAN 20 MG TAB PO SCH (09:00)
[2023-06-28] MEDS: ROFLUMILAST 500 MCG TAB PO SCH (09:00)
[2023-06-28] MEDS: CYANOCOBALAMIN (B-12) 500 MCG TABLET PO SCH (09:01)
[2023-06-28] MEDS: ESCITALOPRAM OXALATE 10 MG TAB PO SCH (09:01)
[2023-06-28] MEDS: CHOLECALCIFEROL 400 UNITS 10 MCG TAB PO SCH (09:02)
[2023-06-28] MEDS ORDERED: AZITHROMYCIN 250 MG TAB PO ONE (09:18)
[2023-06-28] MEDS: UMECLIDINIUM BROMIDE 62.5MCG/BLISTER 7 PUFFS/INHALER INH SCH (10:23)
[2023-06-28] MEDS: COUGH DROP (SUGAR FREE) LOZ 24 LOZ/1 BOX BUCCAL PRN (12:39)
--- NOTE | 2023-06-28 14:54 | Hospitalist Progress Note ---
Date of Service June 28, 2023 Assessment & Plan (1) Acute on chronic respiratory failure with hypoxia: (2) Acute exacerbation of chronic obstructive pulmonary disease: (3) Anemia: (4) VIJAY (obstructive sleep apnea): (5) History of pulmonary embolism: (6) Obesity hypoventilation syndrome: (7) Hypertension: (8) GERD (gastroesophageal reflux disease): (9) KATHLEEN (generalized anxiety disorder): Plan Patient is a 78 y/o female with PMHx of COPD with history of exacerbations that was admitted due to acute respiratory failure with hypoxia after her home oxygen malfunctioned. Anemia - Hgb in am labs 7.8 - History of Hgb levels ranging between 7-10 - Patient endorses lightheadedness which may also be related to mild COPD exacerbation - Continue to monitor - Trend CBC COPD - Patient on nasal cannula at 2 lpm with today's Oxygen level at 92%. Will titrate to maintain at goal O2 around 92-94% - CXR (05/28/23): Bilateral lower lung predominant airspace opacities which may represent atelectasis, pneumonia, and/or aspiration. - Added Solumedrol 40mg and Duoneb yesterday for better control of respiratory symptoms Addition of steroid may contribute to today's slight increase in WBC (9.40 --> 11.15 with neutrophilia) - Will continue home inhalers and medications Changed albuterol MDI to nebulizer PRN Incruse Spiriva 1 puff inh QDR Formoterol nebulizer 20mcg inh BID Pulmicort Respules 0.5mg inh BID Singulair 10mg PO HS Roflumilast 500mcg daily Azithromycin 250mg 3 times a week Tessalon Perles 100mg tid prn Guaifenesin ext release 1200mg PO BID - power lineworker in case to help in coordination of home oxygen replacement Diabetes Mellitus Type 2 - Continue Insulin Glargine 15 U SubQ QAM - Placed on Accu-Checks with Novolog SSI History of PE/ Thrombophlebitis/ PAF - Continue Xarelto 20mg QAM Hypothyroidism - Continue Levothyroxine 25 mcg PO daily Dispo: Admit to Telemetry; May discharge once home oxygen is coordinated/replaced if she remains clinically stable DVT Px: Xarelto 20mg Diet: Heart Healthy, Carb Consistent or DM2 Admission and Anticipated Discharge Date Admission Date: June 27, 2023 Supervising Physician Co-Signing Physician Notes I personally examined the patient and verified all pichardo points of history and exam, discussed case, and agree with decision making with Dr Mckeon feeling better than yesterday. Vitals noted, in general she appears mildly anxious in mild respiratory distress. Diminished air entry wheezing resolved. No accessory muscle use. Severe COPD with mild exacerbationgiven that she is wheezing and feeling more short of breath, I do suspect she is got a little bit of an exacerbation, probably brought on by her brittle COPD and then not having her oxygenbut at the same time, trying to stave off any worseningcorticosteroids, increased her Zithromax for now, nebulizers as needed continue home meds. case management to work on getting home O2 equipment repaired DVT prophylaxisanticoagulated with Xarelto diabetessugars uncontrolled, and on steroids - tighten insulins across the board Howard Morse is a 78 y/o female patient with PMHx of COPD on home oxygen with exacerbations, anemia, history of acute on chronic respiratory failure with hypoxia, hypothyroidism, history of PE, atrial fibrillation, hypersomnolence disorder, obesity hypoventilation syndrome, CHF, acid reflux, diabetes mellitus, KATHLEEN and septic thrombophlebitis. She was admitted due to lack of home oxygen, and is planned to be discharged once her home oxygen is coordinated. She was seen at bedside today and found to be awake, alert, and oriented. She states her SOB is better compared to yesterday, but still feels it. Other than this, she also endorses feeling some weakness, which she attributes to her trouble breathing these last few days. She denies chest pain, N/V/C/D, fevers, chills, malaise, or any other symptom. Review of Systems Review of Systems: As per HPI. Physical Exam Physical Exam: General: Alert. Awake. Oriented. Afebrile. No acute distress. Eyes: pupils equal and reactive to light bilaterally, extraocular movements intact. Cardiac: Regular rate and rhythm, no murmurs/rubs/gallops. Respiratory: Wheezing heard, Decreased breath sounds throughout, No increased work of breathing. Symmetrical chest rise. No respiratory distress. Abdomen: Soft, nontender, nondistended. Bowel sounds present. Lower Extremities: Left LE swelling greater than the right, which patient states has been there chronically. Calf tenderness bilaterally. Jonathan's negative bilaterally. Psych: Euthymic affect. Mood and affect congruence. Regular speech rate and content. Results & Data Results & Data Vital Signs (Past 12 Hours) Vital Signs Temp Pulse Pulse Resp BP Pulse Ox O2 Del Method 06/28/23 07:35 Nasal Cannula 06/28/23 10:58 66 18 92 Nasal Cannula 06/28/23 07:40 65 18 98 Nasal Cannula 06/28/23 07:24 36.7 C 71 16 144/72 H 97 Nasal Cannula 06/28/23 03:02 70 18 96 Nasal Cannula O2 Flow Rate 06/28/23 07:35 4 06/28/23 10:58 2 06/28/23 07:40 4 06/28/23 07:24 4 06/28/23 03:02 4 Resident Activity Tracking Resident Involvement: Resident Care Provided Care Provided: Adult Hospital Medicine (3) Anemia Anemia type: unspecified type Qualified Code(s): D64.9 - Anemia, unspecified (7) Hypertension Hypertension type: essential hypertension Qualified Code(s): I10 - Essential (primary) hypertension (8) GERD (gastroesophageal reflux disease) Esophagitis presence: esophagitis presence not specified Qualified Code(s): K21.9 - Gastro-esophageal reflux disease without esophagitis
[2023-06-28] MEDS: busPIRone 5 MG TAB PO PRN (19:02)
--- NOTE | 2023-06-28 19:34 | Billing Data ---
Date of Service June 28, 2023 Coding Level of Care Code 73600 SUB INP/OBS CARE 3MIN
[2023-06-28] MEDS: QUEtiapine FUMARATE 200 MG TAB PO SCH (21:18)
[2023-06-28] MEDS: MONTELUKAST SODIUM 10 MG TABLET PO SCH (21:20)
[2023-06-28] MEDS: MIRTAZAPINE TAB 15 MG TAB PO SCH (21:20)
[2023-06-28] MEDS: ALBUTEROL 0.083% NEBU SOLN 3 ML VIAL NEB PRN (22:48)
[2023-06-29] MEDS: ALBUTEROL HFA 8 GM INHALER INH PRN ×2 (01:26→13:55)
[2023-06-29] MEDS: LEVOTHYROXINE SODIUM 25 MCG TABLET PO SCH (05:35)
[2023-06-29] MEDS: SODIUM CHLOR 7% 4 ML NEB INH SCH ×2 (07:14→18:49)
[2023-06-29] MEDS: FORMOTEROL 20 MCG/2 ML VIAL INH SCH ×2 (07:14→18:49)
[2023-06-29] MEDS: ALBUT/IPRATROP 3MG/0.5MG NEB 3 ML VIAL NEB SCH ×4 (07:14→18:48)
[2023-06-29] MEDS: BUDESONIDE 0.5 MG/2 ML VIAL (PULMICORT) INH SCH ×2 (07:14→18:49)
[2023-06-29 07:23] LABS: Estimated Average Glucose 166 mg/dl; Hemoglobin A1C 7.4 % (4.5-5.6)
[2023-06-29 07:43] LABS: Albumin Level 3.4 gm/dl (3.4-5.0); BUN Creatinine Ratio 31.4 (10-20); Calcium 9.1 mg/dl (8.6-10.3); Creatinine Clr Calc Pharmacy 48.6 ml/min; Est GFR (African American) 58.5 ml/min; Est GFR (Non-African American) 50.5 ml/min; Potassium 4.8 mmol/L (3.5-5.1)
[2023-06-29 07:45] LABS: Basophils # (auto) 0.04 K/uL (0.00-0.20); Basophils % (auto) 0.4 %; Eosinophils # (auto) 0.14 K/uL (0.00-0.50); Eosinophils % (auto) 1.3 %; Hematocrit (blood only) 25.9 % (37.0-47.0); Hemoglobin 7.7 g/dl (12.0-16.0); Immature Granulocytes # (auto) 0.05 K/uL (0.01-0.20); Immature Granulocytes % (auto) 0.5 %; Lymphocytes # (auto) 2.56 K/uL (1.20-3.40); Lymphocytes % (auto) 23.1 %; Mean Corpuscular Hemoglobin 22.8 pg (25.0-34.0); Mean Corpuscular Hgb Conc 29.7 g/dL (32.0-36.0); Mean Corpuscular Volume 76.9 fL (80.0-100.0); Mean Platelet Volume 9.3 fL (9.4-12.4); Monocytes # (auto) 0.92 K/uL (0.11-0.59); Monocytes % (auto) 8.3 %; Neutrophils # (auto) 7.37 K/uL (1.40-6.50); Neutrophils % (auto) 66.4 %; Platelet Count 323 K/uL (130-400); RDW Coefficient of Variation 15.9 % (11.5-14.5); RDW Standard Deviation 44.8 fL (36.4-46.3); Red Blood Count 3.37 M/uL (4.20-5.40); White Blood Count 11.08 K/ul (4.8-10.8)
[2023-06-29] MEDS: INSULIN ASPART PER UNIT CHARGE SC SCH ×4 (08:06→20:54)
--- NOTE | 2023-06-29 08:07 | Hospitalist Progress Note ---
Date of Service June 29, 2023 Assessment & Plan (1) Acute on chronic respiratory failure with hypoxia: (2) Acute exacerbation of chronic obstructive pulmonary disease: (3) Anemia: (4) VIJAY (obstructive sleep apnea): (5) History of pulmonary embolism: (6) Obesity hypoventilation syndrome: (7) Hypertension: (8) GERD (gastroesophageal reflux disease): (9) KATHLEEN (generalized anxiety disorder): Plan Patient is a 78 y/o female with PMHx of COPD with history of exacerbations that was admitted due to acute respiratory failure with hypoxia after her home oxygen malfunctioned. Severe COPD with mild exacerbation Chronic respiratory failure - stable Home meds - Incruse Spiriva 1 puff inh QD; Formoterol nebulizer 20mcg inh BID; Pulmicort Respules 0.5mg inh BID; Singulair 10mg PO HS; Roflumilast 500mcg daily; Azithromycin 250mg 3 times a week - Continue Solumedrol 40mg daily for total of 5 day Tessalon Perles 100mg tid prn Guaifenesin ext release 1200mg PO BID - Has been prescribed narcotics for air hunger recently by palliative care. Will weigh in side effects/benefits further. She lives alone - likely a contributor as well. - 2 Step test completed today, Case Management following to help secure home oxygen. Iron deficiency Anemia - H/h stable - hb 7.7 this am - Patient endorses lightheadedness. No sign of active bleeding. - IV Venofer 100mg given Diabetes Mellitus Type 2 - Continue Insulin Glargine 15 U SubQ QAM - Placed on Accu-Checks with Novolog SSI History of PE/ Thrombophlebitis/ PAF - Continue Xarelto 20mg QAM Hypothyroidism - Continue Levothyroxine 25 mcg PO daily DVT Px: Xarelto 20mg Diet: Heart Healthy, Carb Consistent or DM2 Admission and Anticipated Discharge Date Admission Date: June 27, 2023 Supervising Physician Co-Signing Physician Notes Resident Physician Supervision Note: I independently interviewed and examined the patient and verified the pichardo history and physical, reviewed labs and image studies and agree with resident f indings and care plan. Subjective Mini is a 78 y/o female patient with PMHx of COPD on home oxygen with exacerbations, anemia, history of acute on chronic respiratory failure with hypoxia, hypothyroidism, history of PE, atrial fibrillation, hypersomnolence disorder, obesity hypoventilation syndrome, CHF, acid reflux, diabetes mellitus, KATHLEEN and septic thrombophlebitis. Patient evaluated at bedside this morning, resting in bed in no apparent distress. Patient states that shortness of breath has been progressively worsening over the past month, thinks her home O2 hasn't been working properly. Patient also states that she is typically on 2L O2 at home, increases to 3-4L with exertion. Patient also endorses increased coughing but no change in sputum production. Denies SOB at rest when on supplemental O2. Review of Systems Review of Systems: All systems reviewed & are unremarkable except as noted in HPI & below Physical Exam Constitutional: WD/WN, vitals as above Respiratory: bilateral expiratory wheezes appreciated on auscultation, mildly diminished breath sounds throughout Cardiovascular: RRR, no murmur, no edema Gastrointestinal (Abdomen): bowel sounds intact, abdomen non-distended Skin: no rashes, warm and dry Psychiatric: A+Ox3, euthymic affect Results & Data Results & Data Vital Signs (Past 12 Hours) Vital Signs Temp Pulse Resp BP Pulse Ox O2 Del Method O2 Flow Rate 06/29/23 07:57 36.5 C 57 L 16 152/75 H 95 Room Air 06/29/23 07:15 60 18 96 Nasal Cannula 2 06/29/23 01:27 74 20 97 Nasal Cannula 2 06/28/23 21:00 36.6 C 68 18 145/69 H 96 Nasal Cannula 2 06/28/23 22:50 76 20 94 Nasal Cannula 2 06/28/23 21:05 Nasal Cannula 2 Laboratory Results Abnormal lab results 06/28/23 06/28/23 06/29/23 Range/Units 05:54 21:08 07:08 WBC 11.08 H (4.8-10.8) K/ul RBC 3.37 L (4.20-5.40) M/uL Hgb 7.7 L (12.0-16.0) g/dl Hct 25.9 L (37.0-47.0) % MCV 76.9 L (80.0-100.0) fL MCH 22.8 L (25.0-34.0) pg MCHC 29.7 L (32.0-36.0) g/dL RDW Coeff of Jame 15.9 H (11.5-14.5) % MPV 9.3 L (9.4-12.4) fL Neut # (Auto) 7.37 H (1.40-6.50) K/uL [place] # (Auto) 0.92 H (0.11-0.59) K/uL Carbon Dioxide (21-32) mmol/L BUN (6-23) mg/dl BUN/Creatinine Ratio (10-20) POC Glucose 216 H (70-99) mg/dl Hemoglobin A1c 7.4 H (4.5-5.6) % Iron (35-150) mcg/dl Ferritin (8-388) ng/ml 06/29/23 06/29/23 06/29/23 Range/Units 07:08 07:08 11:31 WBC (4.8-10.8) K/ul RBC (4.20-5.40) M/uL Hgb (12.0-16.0) g/dl Hct (37.0-47.0) % MCV (80.0-100.0) fL MCH (25.0-34.0) pg MCHC (32.0-36.0) g/dL RDW Coeff of Jame (11.5-14.5) % MPV (9.4-12.4) fL Neut # (Auto) (1.40-6.50) K/uL [place] # (Auto) (0.11-0.59) K/uL Carbon Dioxide 35 H (21-32) mmol/L BUN 33 H (6-23) mg/dl BUN/Creatinine Ratio 31.4 H (10-20) POC Glucose 156 H (70-99) mg/dl Hemoglobin A1c (4.5-5.6) % Iron 180 H (35-150) mcg/dl Ferritin 7.7 L (8-388) ng/ml 06/29/23 Range/Units 16:44 WBC (4.8-10.8) K/ul RBC (4.20-5.40) M/uL Hgb (12.0-16.0) g/dl Hct (37.0-47.0) % MCV (80.0-100.0) fL MCH (25.0-34.0) pg MCHC (32.0-36.0) g/dL RDW Coeff of Jame (11.5-14.5) % MPV (9.4-12.4) fL Neut # (Auto) (1.40-6.50) K/uL [place] # (Auto) (0.11-0.59) K/uL Carbon Dioxide (21-32) mmol/L BUN (6-23) mg/dl BUN/Creatinine Ratio (10-20) POC Glucose 276 H (70-99) mg/dl Hemoglobin A1c (4.5-5.6) % Iron (35-150) mcg/dl Ferritin (8-388) ng/ml Diagnostic Findings Chest X-Ray 06/27/23 02:41 XR chest 1V portable CLINICAL HISTORY: Dyspnea TECHNIQUE: Single frontal radiograph of the chest was obtained. Comparison: Comparison is made to 11/29/2022 FINDINGS: No lines and tubes are seen. Cardiomegaly is noted. The aortic arch is calcified. Bilateral lower lung predominant airspace opacities are seen. No evidence of pleural effusion or pneumothorax. IMPRESSION: Bilateral lower lung predominant airspace opacities which may represent atelectasis, pneumonia, and/or aspiration. ACT 112: Negative or not required by law. Electronically signed by: Jonatan Moreno M.D. 06/27/2023 11:53 AM Resident Activity Tracking Resident Involvement: Resident Care Provided Care Provided: Adult Hospital Medicine (3) Anemia Anemia type: unspecified type Qualified Code(s): D64.9 - Anemia, unspecified (7) Hypertension Hypertension type: essential hypertension Qualified Code(s): I10 - Essential (primary) hypertension (8) GERD (gastroesophageal reflux disease) Esophagitis presence: esophagitis presence not specified Qualified Code(s): K21.9 - Gastro-esophageal reflux disease without esophagitis
[2023-06-29] MEDS: UMECLIDINIUM BROMIDE 62.5MCG/BLISTER 7 PUFFS/INHALER INH SCH (08:09)
[2023-06-29] MEDS: methylPREDNISolone 40 MG in SYRINGE 0 ML IV SCH (08:10)
[2023-06-29] MEDS: METOPROLOL SUCC 25MG EXT REL TAB PO SCH ×2 (08:10→20:44)
[2023-06-29] MEDS: IRON POLYSACCHARIDE COMPLEX 150 MG CAPSULE PO SCH ×2 (08:11→20:46)
[2023-06-29] MEDS: MAGNESIUM OXIDE 400 MG TAB PO SCH ×2 (08:11→20:44)
[2023-06-29] MEDS: PANTOprazole 40 MG TAB PO SCH ×2 (08:11→20:46)
[2023-06-29] MEDS: metFORMIN HCL ER 500 MG TABCR PO SCH ×2 (08:12→20:45)
[2023-06-29] MEDS: ROFLUMILAST 500 MCG TAB PO SCH (08:13)
[2023-06-29] MEDS: CYANOCOBALAMIN (B-12) 500 MCG TABLET PO SCH (08:13)
[2023-06-29] MEDS: SPIRONOLACTONE 25 MG TAB PO SCH (08:13)
[2023-06-29] MEDS: guaiFENesin 600 MG TABCR PO SCH ×2 (08:13→20:43)
[2023-06-29] MEDS: ESCITALOPRAM OXALATE 10 MG TAB PO SCH (08:14)
[2023-06-29] MEDS: CHOLECALCIFEROL 400 UNITS 10 MCG TAB PO SCH (08:14)
[2023-06-29] MEDS: RIVAROXABAN 20 MG TAB PO SCH (08:15)
[2023-06-29 08:28] LABS: Hypochromasia Present; Polychromasia 1+
[2023-06-29] MEDS: LANTUS PER UNIT CHARGE SC SCH ×2 (08:34→20:54)
[2023-06-29] MEDS ORDERED: AZITHROMYCIN 250 MG TAB PO SCH (09:00)
[2023-06-29] MEDS: FAMOTIDINE 20 MG TAB PO SCH (09:33)
[2023-06-29 10:17] LABS: Folate (Folic Acid),Ser orPlas 9.38 ng/ml (>5.38)
[2023-06-29 11:17] LABS: Ferritin 7.7 ng/ml (8-388)
[2023-06-29] MEDS: busPIRone 5 MG TAB PO PRN (11:35)
[2023-06-29] MEDS ORDERED: IRON SUCROSE 100 MG in 0.9 % SODIUM CHLORIDE 100 ML IV ONE (11:51)
[2023-06-29] MEDS: MIRTAZAPINE TAB 15 MG TAB PO SCH (20:44)
[2023-06-29] MEDS: MONTELUKAST SODIUM 10 MG TABLET PO SCH (20:45)
[2023-06-29] MEDS: QUEtiapine FUMARATE 200 MG TAB PO SCH (20:45)
[2023-06-29] MEDS: ALBUTEROL 0.083% NEBU SOLN 3 ML VIAL NEB PRN (23:16)
[2023-06-30] MEDS: busPIRone 5 MG TAB PO PRN (01:18)
[2023-06-30] MEDS: ALBUTEROL HFA 8 GM INHALER INH PRN (02:25)
[2023-06-30] MEDS: LEVOTHYROXINE SODIUM 25 MCG TABLET PO SCH (05:38)
--- NOTE | 2023-06-30 07:06 | Hospitalist Progress Note ---
Date of Service June 30, 2023 Assessment & Plan (1) Acute on chronic respiratory failure with hypoxia: (2) Acute exacerbation of chronic obstructive pulmonary disease: (3) Anemia: (4) VIJAY (obstructive sleep apnea): (5) History of pulmonary embolism: (6) Obesity hypoventilation syndrome: (7) Hypertension: (8) GERD (gastroesophageal reflux disease): (9) KATHLEEN (generalized anxiety disorder): Plan Patient is a 78 y/o female with PMHx of COPD with history of exacerbations that was admitted due to acute respiratory failure with hypoxia after her home oxygen malfunctioned. Severe COPD with mild exacerbation Chronic respiratory failure - stable Home meds - Incruse Spiriva 1 puff inh QD; Formoterol nebulizer 20mcg inh BID; Pulmicort Respules 0.5mg inh BID; Singulair 10mg PO HS; Roflumilast 500mcg daily; Azithromycin 250mg 3 times a week - Continue Solumedrol 40mg daily for total of 5 day Tessalon Perles 100mg tid prn Guaifenesin ext release 1200mg PO BID - Has been prescribed narcotics for air hunger recently by palliative care. Will weigh in side effects/benefits further. She lives alone - likely a contributor as well. - 2 Step test completed today, Case Management following to help secure home oxygen. Iron deficiency Anemia - H/h stable - hb 7.7 this am - Patient endorses lightheadedness. No sign of active bleeding. - IV Venofer 100mg given Diabetes Mellitus Type 2 - Continue Insulin Glargine 15 U SubQ QAM - Placed on Accu-Checks with Novolog SSI History of PE/ Thrombophlebitis/ PAF - Continue Xarelto 20mg QAM Hypothyroidism - Continue Levothyroxine 25 mcg PO daily DVT Px: Xarelto 20mg Diet: Heart Healthy, Carb Consistent or DM2 Admission and Anticipated Discharge Date Admission Date: June 27, 2023 Howard Morse is a 78 y/o female patient with PMHx of COPD on home oxygen with exacerbations, anemia, history of acute on chronic respiratory failure with hypoxia, hypothyroidism, history of PE, atrial fibrillation, hypersomnolence disorder, obesity hypoventilation syndrome, CHF, acid reflux, diabetes mellitus, KATHLEEN and septic thrombophlebitis. Patient evaluated at bedside this morning, resting in bed in no apparent distress. Patient states that shortness of breath has been progressively worsening over the past month, thinks her home O2 hasn't been working properly. Patient also states that she is typically on 2L O2 at home, increases to 3-4L with exertion. Patient also endorses increased coughing but no change in sputum production. Denies SOB at rest when on supplemental O2. Physical Exam Constitutional: WD/WN, vitals as above Cardiovascular: RRR, no murmur, no edema Skin: no rashes, warm and dry Psychiatric: A+Ox3, euthymic affect Results & Data Results & Data Vital Signs (Past 12 Hours) Vital Signs Temp Pulse Resp BP Pulse Ox O2 Del Method O2 Flow Rate 06/30/23 02:25 62 18 95 Nasal Cannula 2 06/29/23 23:16 66 18 95 Nasal Cannula 2 06/29/23 20:39 Nasal Cannula 2 06/29/23 20:36 36.9 C 70 18 108/48 L 94 Nasal Cannula 2 (3) Anemia Anemia type: unspecified type Qualified Code(s): D64.9 - Anemia, unspecified (7) Hypertension Hypertension type: essential hypertension Qualified Code(s): I10 - Essential (primary) hypertension (8) GERD (gastroesophageal reflux disease) Esophagitis presence: esophagitis presence not specified Qualified Code(s): K21.9 - Gastro-esophageal reflux disease without esophagitis
[2023-06-30] MEDS: ALBUT/IPRATROP 3MG/0.5MG NEB 3 ML VIAL NEB SCH ×3 (07:13→15:15)
[2023-06-30] MEDS: BUDESONIDE 0.5 MG/2 ML VIAL (PULMICORT) INH SCH (07:13)
[2023-06-30] MEDS: FORMOTEROL 20 MCG/2 ML VIAL INH SCH (07:13)
[2023-06-30] MEDS: SODIUM CHLOR 7% 4 ML NEB INH SCH (07:13)
[2023-06-30 08:33] LABS: Basophils # (auto) 0.04 K/uL (0.00-0.20); Basophils % (auto) 0.4 %; Eosinophils # (auto) 0.18 K/uL (0.00-0.50); Eosinophils % (auto) 1.6 %; Hematocrit (blood only) 27.7 % (37.0-47.0); Hemoglobin 8.3 g/dl (12.0-16.0); Immature Granulocytes # (auto) 0.08 K/uL (0.01-0.20); Immature Granulocytes % (auto) 0.7 %; Lymphocytes # (auto) 2.81 K/uL (1.20-3.40); Lymphocytes % (auto) 25.1 %; Mean Corpuscular Hemoglobin 23.3 pg (25.0-34.0); Mean Corpuscular Volume 77.8 fL (80.0-100.0); Mean Platelet Volume 9.3 fL (9.4-12.4); Monocytes % (auto) 9.8 %; Neutrophils # (auto) 6.98 K/uL (1.40-6.50); Neutrophils % (auto) 62.4 %; Platelet Count 355 K/uL (130-400); RDW Coefficient of Variation 15.8 % (11.5-14.5); RDW Standard Deviation 44.1 fL (36.4-46.3); Red Blood Count 3.56 M/uL (4.20-5.40); White Blood Count 11.19 K/ul (4.8-10.8)
[2023-06-30] MEDS: INSULIN ASPART PER UNIT CHARGE SC SCH ×3 (08:43→17:46)
[2023-06-30] MEDS: UMECLIDINIUM BROMIDE 62.5MCG/BLISTER 7 PUFFS/INHALER INH SCH (08:44)
[2023-06-30] MEDS: IRON POLYSACCHARIDE COMPLEX 150 MG CAPSULE PO SCH (08:45)
[2023-06-30] MEDS: CHOLECALCIFEROL 400 UNITS 10 MCG TAB PO SCH (08:45)
[2023-06-30] MEDS: guaiFENesin 600 MG TABCR PO SCH (08:45)
[2023-06-30] MEDS: PANTOprazole 40 MG TAB PO SCH (08:45)
[2023-06-30] MEDS: metFORMIN HCL ER 500 MG TABCR PO SCH (08:45)
[2023-06-30] MEDS: MAGNESIUM OXIDE 400 MG TAB PO SCH (08:45)
[2023-06-30] MEDS: CYANOCOBALAMIN (B-12) 500 MCG TABLET PO SCH (08:45)
[2023-06-30] MEDS: ESCITALOPRAM OXALATE 10 MG TAB PO SCH (08:45)
[2023-06-30] MEDS: RIVAROXABAN 20 MG TAB PO SCH (08:45)
[2023-06-30] MEDS: METOPROLOL SUCC 25MG EXT REL TAB PO SCH (08:45)
[2023-06-30] MEDS: SPIRONOLACTONE 25 MG TAB PO SCH (08:46)
[2023-06-30] MEDS: ROFLUMILAST 500 MCG TAB PO SCH (08:46)
[2023-06-30] MEDS: methylPREDNISolone 40 MG in SYRINGE 0 ML IV SCH (08:47)
[2023-06-30] MEDS: LANTUS PER UNIT CHARGE SC SCH (08:47)
[2023-06-30] MEDS: FAMOTIDINE 20 MG TAB PO SCH (08:49)
[2023-06-30 08:51] LABS: Albumin Level 3.6 gm/dl (3.4-5.0); BUN Creatinine Ratio 31.3 (10-20); Calcium 9.3 mg/dl (8.6-10.3); Creatinine Clr Calc Pharmacy 51.5 ml/min; Est GFR (African American) 62.8 ml/min; Est GFR (Non-African American) 54.2 ml/min; Phosphorus 4.4 mg/dl (2.5-4.9); Potassium 4.4 mmol/L (3.5-5.1)
[2023-06-30] MEDS: COUGH DROP (SUGAR FREE) LOZ 24 LOZ/1 BOX BUCCAL PRN (10:47)
--- NOTE | 2023-06-30 18:11 | Discharge Summary ---
Date of Service June 30, 2023 Admission HPI Per Admitting Provider The patient is a 78-year-old female with a past medical history including COPD with exacerbations, anemia, history of acute on chronic respiratory failure with hypoxia, hypothyroidism, history of PE, atrial fibrillation, hypersomnolence disorder, obesity hypoventilation syndrome, CHF, acid reflux, diabetes mellitus, KATHLEEN and septic thrombophlebitis. The patient had been in her usual level of health, when her oxygen delivery device malfunctioned, and without anyone available to fix it, she developed worsening shortness of breath, dyspnea on exertion and hypoxia, and presented to the ED for assessment. In ED she was found to be 87% on room air on arrival, and immediately improved with nasal cannula to target of 92-94%. Patient will be admitted to the hospital with her usual medications, until arrangements can be made for repair or replacement of oxygen delivery device for home Admission Exam Per Admitting Provider The patient is awake, alert and oriented 3, well developed and well nourished, normocephalic and atraumatic, lying in bed and in no acute distress. HEENT--PERRL, EOMI, mucous membranes and oropharynx normal Neck--supple. No JVD. No bruits. Thyroid normal, trachea midline, no adenopathy. Heart--normal S1 and S2. No murmurs, rubs or gallops. Lungs--clear bilaterally, decreased breath sounds throughout. No respiratory distress, no accessory muscle use. Abdomen--normal bowel sounds and soft. Nontender. Nondistended. Morbidly obese Extremities--no cyanosis or clubbing. No edema. There are good distal pulses b/l. Dermatologic--normal skin turgor, normal color, no abnormal lymph nodes, no rash. Neurologic--cranial nerves II through XII grossly intact. Rheumatologic--normal range of motion. Psychiatric--normal affect. Principal Diagnosis COPD exacerbation Discharge Exam Constitutional WD/WN, vitals as above no acute distress Respiratory expiratory wheezes appreciated on auscultation bilaterally, mildly diminished breath sounds bilaterally Cardiovascular RRR, no murmur, no edema Gastrointestinal (Abdomen) bowel sounds normal, abdomen non-distended Skin no rashes, warm and dry Psychiatric A+Ox3, euthymic affect Discharge Data Allergies Allergy/AdvReac Type Severity Reaction Status Date / Time rabies vaccine, duck-embryo Allergy Severe HIVES Verified 06/09/22 12:02 ragweed pollen Allergy Unknown UNKNOWN Verified 06/09/22 12:02 tomato Allergy Unknown HIVES Verified 06/09/22 12:02 Consultations 06/27/23 04:03 ED Decision to Admit Stat Hospital Course (1) Acute on chronic respiratory failure with hypoxia: (2) Acute exacerbation of chronic obstructive pulmonary disease: (3) Anemia: (4) VIJAY (obstructive sleep apnea): (5) History of pulmonary embolism: (6) Obesity hypoventilation syndrome: (7) Hypertension: (8) GERD (gastroesophageal reflux disease): (9) KATHLEEN (generalized anxiety disorder): Plan Patient is a 78 y/o female with PMHx of COPD with history of exacerbations that was admitted due to acute respiratory failure with hypoxia after her home oxygen malfunctioned. Severe COPD with mild exacerbation Chronic respiratory failure - stable Home meds continued - Incruse Spiriva 1 puff inh QD; Formoterol nebulizer 20mcg inh BID; Pulmicort Respules 0.5mg inh BID; Singulair 10mg PO HS; Roflumilast 500mcg daily; Azithromycin 250mg 3 times a week - Solumedrol 40mg daily for total of 5 days, final dose sent to pharmacy upon discharge Tessalon Perles 100mg tid prn Guaifenesin ext release 1200mg PO BID - Had been prescribed narcotics for air hunger recently by palliative care. Short course of oxycodone prescribed upon discharge, patient has follow up with Dr. Zhang for ongoing care. - 2 Step test completed during hospitalization, patient discharged with home oxygen. Iron deficiency Anemia - Hb low but stable over course of hospital stay - Patient endorsed lightheadedness. No sign of active bleeding. - IV Venofer 100mg given Chronic CHF - Continue home dose prn lasix. Diabetes Mellitus Type 2 - Insulin Glargine 15 U SubQ QAM continued - Placed on Accu-Checks with Novolog SSI History of PE/ Thrombophlebitis/ PAF - Xarelto 20mg QAM continued Hypothyroidism - Levothyroxine 25 mcg PO daily continued Total Time Total Time Spent Total Time Spent (In Minutes): see attending attestation Discharge Plan Discharge Items Patient Disposition: Home - Self-Care Reason For Visit: COPD EXACERBATION, ACUTE RESP FAIL W/ HYPOXIA Discharge Diagnosis: COPD exacerbation Activity: Resume your previous activity Non-emergency contact: Primary Care Provider Call non-emergency contact if: you have any medication questions and your symptoms worsen Follow-up/Referrals: Dayna Bullard PA-C [Primary Care Provider] - Dia Zhang DNP [Nurse Practitioner] - 07/02/23 10:00 am (Enter throught the [facility] entrance. Appointment will take place within [facility]. Please arrive approximately 15 minutes early) Diet: Regular Addtl Attending Provider Instructions: You were admitted to the hospital for COPD exacerbation. You were treated with your usual home medications as well as supplemental oxygen and an oral steroid. A discharge summary will be sent to your primary care physician to ensure continuity of care. Please bring this discharge summary with you to your next office appointment so that your provider can review it at that time. Medications: Your medication list has been reviewed and reconciled upon discharge to ensure accuracy and continuity of care. An updated list of all your medications is included with your hospital discharge paperwork. Please review this list closely and make note of any changes to your medications. - You were started on a course of oral steroids during your hospital stay. You completed 4 of the 5 day course. We have sent your last dose of this medication called Prednisone to the pharmacy. - Another medication that can help relieve respiratory distress and pain, oxycodone, has also been sent to the pharmacy. - Apart from this, no other changes were made to your medications. Please continue to take your medications as previously directed. Follow up appointments: - Make a follow up appointment with your PCP within the next week. It is very important that you follow up with them shortly after discharge from the hospital. - Keep all of your follow up appointments as already scheduled. If you cannot make an appointment, notify your provider. CONTACT YOUR PRIMARY CARE PROVIDER if you experience any of the following: - Difficulty following your treatment plan - Difficulty taking any of your medications CALL 911 OR GO TO THE EMERGENCY DEPARTMENT if you experience any of the following: - Sudden, severe abdominal pain or nausea/vomiting - Severe chest pain or chest pain that radiates to your jaw or arm - Sudden, severe shortness of breath or difficulty breathing Pending Studies at Discharge: No Stand-Alone Forms: [employer], Pain - Opioid Pain Management, Smoking Cessation Medications and DC Order Prescriptions: New prednisone 50 mg tablet 50 mg PO DAILY 1 Days Qty: 1 0RF oxycodone 5 mg tablet 2.5 mg PO TID PRN (Reason: pain) Qty: 7 0RF Continued iFerex 150 Forte 150-25-1 mg-mcg-mg capsule 1 cap PO BID furosemide [Lasix] 20 mg tablet 20 mg PO PRN nystatin 100,000 unit/mL suspension 500,000 unit PO QID Rx Instructions: administer 1/2 of dose in each side of the mouth (DME) Oxygen Home Liters Per Minute See Rx Instructions .Route Rx Instructions: As directed- 2lpm all the time spironolactone 50 mg tablet 100 mg PO DAILY Tylenol Extra Strength 500 mg powder in packet 500 mg PO Q4H PRN (Reason: Pain) Rx Instructions: 1-2 tabs every 4-6 hours PRN pain prednisone 20 mg tablet 40 mg PO DAILY Qty: 10 0RF Rx Instructions: Take two tablets each morning until gone. Complete prescription as directed Mucinex 1,200 mg tablet extended release 12hr 1,200 mg PO BID Qty: 60 0RF revefenacin 175 mcg/3 mL solution for nebulization 175 mcg inhalation DAILY Qty: 90 3RF albuterol sulfate 90 mcg/actuation HFA aerosol inhaler 2 puff inhalation Q6H PRN (Reason: Shortness Of Breath Or Wheezing) Qty: 18 4RF azithromycin 250 mg tablet 250 mg PO 3XWK Qty: 36 5RF Rx Instructions: Thursday, Thursday, Thursday arformoterol [Brovana] 15 mcg/2 mL solution for nebulization 2 ml inhalation BID Qty: 360 4RF budesonide 0.5 mg/2 mL suspension for nebulization 0.5 mg inhalation BID Qty: 180 4RF ipratropium-albuterol 0.5 mg-3 mg(2.5 mg base)/3 mL solution for nebulization 3 ml inhalation Q8H PRN (Reason: shortness of breath or wheezing) Qty: 540 2RF Spiriva with HandiHaler 18 mcg capsule, w/inhalation device 18 mcg INHALATION DAILY Qty: 90 2RF montelukast 10 mg tablet 10 mg PO HS Qty: 90 2RF Daliresp 500 mcg tablet 500 mcg PO DAILY Qty: 90 2RF sodium chloride 7 % solution for nebulization 1 inh inhalation BID Qty: 240 6RF insulin lispro [Humalog KwikPen Insulin] 100 unit/mL insulin pen 12 unit SUBCUT TIDM quetiapine 200 mg Tablet 200 mg PO HS levothyroxine 25 mcg Tablet 25 mcg PO QAM famotidine 20 mg Tablet 20 mg PO QAM pantoprazole 40 mg Tablet,Delayed Release (Dr/Ec) 40 mg PO BID mirtazapine 30 mg tablet 30 mg PO HS escitalopram oxalate 10 mg Tablet 15 mg PO QAM Xarelto 20 mg Tablet 20 mg PO QAM metoprolol succinate 25 mg Capsule,Sprinkle,Er 24hr 25 mg PO BID magnesium oxide 400 mg magnesium Tablet 400 mg PO BID polysaccharide iron complex [Poly-Iron] 150 mg iron capsule 150 mg PO BID fluticasone propionate 50 mcg/actuation spray,suspension 50 mcg INTRANASAL DAILY cholecalciferol (vitamin D3) 10 mcg (400 unit) tablet,chewable 10 mcg PO DAILY buspirone 5 mg Tablet 5 mg PO TID PRN (Reason: anxiety) Qty: 60 1RF benzonatate 100 mg Capsule 100 mg PO TID PRN (Reason: cough) Qty: 30 0RF cyanocobalamin (vitamin B-12) 1,000 mcg tablet 1,000 mcg PO DAILY Qty: 90 1RF Rx Instructions: purchase over the counter metformin 500 mg Tablet Extended Release 24 Hr 500 mg PO BID Qty: 60 0RF Rx Instructions: take with breakfast and with your evening dinner meal insulin glargine [Lantus Solostar U-100 Insulin] 100 unit/mL (3 mL) insulin pen 15 unit subcut QAM Qty: 1 0RF Rx Instructions: per 1st Discharge Orders: Discharge Order (Routine); Ordered 06/30/23 Ordered By: Cesar Medrano/Other Patient Handouts: Managing Type 2 Diabetes Admission Data Admit Date/Time: 06/27/23 04:43 Attending Provider: Ceci Alexis Admit Provider: David Norris Primary Care Provider: Dayna Bullard Other Providers: David Norris ; Jose Osorio Other Interventions: Discharge Summary Assessment (RN) Last Done: 06/30/23 16:43 Supervising Physician Co-Signing Physician Notes Resident Physician Supervision Note: I independently interviewed and examined the patient and verified the pichardo history and physical, reviewed labs and image studies and agree with resident findings and care plan. Resident Activity Tracking Resident Involvement: Resident Care Provided Care Provided: Adult [facility] Medicine
--- NOTE | 2023-07-02 09:52 | Coding Query ---
CONGESTIVE HEART FAILURE To Promote full compliance with coding requirements relating to patient care, physician participation is requested in all cases of binder layer uncertainty. Please assist us with the following questions. A diagnosis of Congestive Heart Failure is documented in the patient's medical record. To accurately code this diagnosis and to compare patient severity, we ask that you specify the type of heart failure by placing an X within the parenthesis (x). SYSTOLIC HEART FAILURE ( ) Acute ( ) Chronic ( ) Acute on Chronic ( ) Rheumatic ( ) Unknown DIASTOLIC HEART FAILURE ( ) Acute ( x ) Chronic ( ) Acute on Chronic ( ) Rheumatic ( ) Unknown COMBINED SYSTOLIC AND DIASTOLIC HEART FAILURE ( ) Acute ( ) Chronic ( ) Acute on Chronic ( ) Rheumatic ( ) Unknown Was the CHF Present On Admission? Please check the appropriate box: ( ) Present on Admission ( ) Not Present On Admission ( ) Clinically undetermined Thank you Marci COSTA
== END 2023-06-30 18:47 | disposition home or self-care (01) | DRG 189 ==
LOC: ED 02:15 → SUATTDRO 04:43 → EDINP 04:43 → 2S 06:50 → 3W 22:11

== ENCOUNTER 2023-10-25 02:48 | Inpatient (IN) ==
[2023-10-25 03:45] LABS: Basophils # (auto) 0.07 K/uL (0.00-0.20); Basophils % (auto) 0.9 %; Eosinophils # (auto) 0.41 K/uL (0.00-0.50); Eosinophils % (auto) 5.1 %; Hemoglobin 9.7 g/dl (12.0-16.0); Immature Granulocytes # (auto) 0.02 K/uL (0.01-0.20); Immature Granulocytes % (auto) 0.2 %; Lymphocytes # (auto) 1.64 K/uL (1.20-3.40); Lymphocytes % (auto) 20.3 %; Mean Corpuscular Hemoglobin 24.5 pg (25.0-34.0); Mean Corpuscular Hgb Conc 29.4 g/dL (32.0-36.0); Mean Corpuscular Volume 83.3 fL (80.0-100.0); Mean Platelet Volume 9.4 fL (9.4-12.4); Monocytes # (auto) 0.74 K/uL (0.11-0.59); Monocytes % (auto) 9.2 %; Neutrophils # (auto) 5.19 K/uL (1.40-6.50); Neutrophils % (auto) 64.3 %; Platelet Count 234 K/uL (130-400); RDW Coefficient of Variation 18.4 % (11.5-14.5); RDW Standard Deviation 55.4 fL (36.4-46.3); Red Blood Count 3.96 M/uL (4.20-5.40); White Blood Count 8.07 K/ul (4.8-10.8)
--- NOTE | 2023-10-25 03:47 | Emergency Department Note ---
Impression & Plan Acute and chronic respiratory failure, Fluid overload, Nausea, DARI (acute kidney injury) ED Provider Note Provider: Van Peralta MD DATE OF SERVICE: 10/25/2023 CHIEF COMPLAINT: Trouble breathing HISTORY OF PRESENT ILLNESS: Patient is a 78-year-old female past medical history including chronic 2 L of oxygen use related to COPD, A-fib on Xarelto, diabetes, GERD, anxiety as well as fluid overload presenting via ambulance from her home. States over the past month or so she has had worsening breathing issues. Particular tonight things worsened to the point where she could not breathe and increased her home oxygen from 2 L up to 6. States she does feel a bit swollen towards her left leg as well as her abdomen. Intermittently takes Lasix at home but has not been last able days. Does report some nausea. Denies abdominal pain. Has been using her home nebulizers without improvement. No syncope or trauma reported. PAST MEDICAL HISTORY: As noted above MEDICATIONS: Reviewed home medications SOCIAL HISTORY: Resides at home PHYSICAL EXAM: GENERAL: alert and oriented in no acute distress on stretcher somewhat fatigued in appearance Head: normocephalic and atraumatic EYES: No injection, discharge or icterus. NECK: Trachea midline. ENT: Mucous membranes pink and moist. LUNGS: Airway patent. No retractions. Breath sounds with some diminished bases and some mild increased work of breathing with some slight pursed lip breathing. HEART: Regular rate and rhythm. No chest wall tenderness ABDOMEN: Soft and non-tender although somewhat distended, without guarding or rebound. BACK: No midline tenderness, no SI joint tenderness. No bilateral flank tenderness. SKIN: Acyanotic, warm, dry, without rashes EXTREMITIES: Without tenderness or deformity with some slight bilateral pedal edema NEUROLOGICAL: No focal deficits. No aphasia. No facial droop or slurred speech. EK bpm normal sinus rhythm. No PVC or PAC. No acute ST segment elevation or depression with a QTc of 419. CONTINUOUS CARDIAC MONITORING: was ordered and showed a heart rate of 60s-100s bpm in sinus rhythm to sinus tachycardia 1 view chest x-ray per my interpretation: No evidence of pneumonia, pneumothorax, or free air. Patient's laboratory studies and imaging reviewed. Differential includes Reactive airway disease, pneumonia, pneumothorax, COPD, CHF, infections, cardiac ischemia, pulmonary embolism, musculoskeletal, gastrointestinal, as well as other pathologies. IMPRESSION/MEDICAL DECISION MAKING: Patient with multiple underlying pulmonary conditions now with some increased oxygen demand. Does have a little bit of pursed lip breathing upon arrival. Maybe a little bit more swollen. Anticoag with Xarelto lowers my suspicion for DVT/PE. EKG without evidence of STEMI not having chest pain. Some nausea but no abdominal pain. Respiratory viral panel was sent. Cultures and labs were ordered. Although not significantly wheezing given a DuoNeb given her history of COPD. Chest x-ray not indicative for my interpretation for pneumonia, pneumothorax, or significant CHF at this time. Given lack of abdominal tenderness no feel we need emergent abdominal imaging at this time. Patient without focal deficits or trauma history and is not encephalopathic. Doubt CVA, stroke, meningitis, or significant hypercarbia at this time. VBG obtained does show a pH of 7.34 with a CO2 of 67 with little bit of pursed lip breathing. States she does not use CPAP anymore. Do not feel she necessitates BiPAP at this time. Not severely acidotic but borderline here. No significant leukocytosis on blood work. Mild anemia of 9.7. Similar to slightly improved from previous. BNP somewhat elevated at 130. Respiratory viral panel negative. Chemistries finally returned without evidence of severe electrolyte abnormality but with an elevated creatinine of 1.8 from baseline. Again question some fluid overload component. Believe there is some component of COPD. Will give a dose of steroids as well as a small amount of Lasix. Will bring to the hospital for further care. Hospitalist to be contacted. Patient was with some improvement after DuoNeb here. DIAGNOSIS: Acute on chronic hypoxic respiratory failure, DARI, COPD, nausea, fluid overload DISPOSITION: Hospitalist will evaluate Patient was agreeable with this plan. Past Med/Surg History Medical History Acute and chronic respiratory failure with hypoxia Acute on chronic combined systolic (congestive) and diastolic (congestive) heart failure Acute on chronic respiratory failure with hypoxia and hypercapnia Acute respiratory failure with hypoxia Advanced care planning/counseling discussion Air hunger Atelectasis Breast cancer, right breast CHF (congestive heart failure) COPD (chronic obstructive pulmonary disease) COPD exacerbation Diabetes Dyspnea and respiratory abnormalities Elevated troponin Endocarditis KATHLEEN (generalized anxiety disorder) GERD (gastroesophageal reflux disease) GI bleed Hypoxia Major depression, recurrent, full remission MSSA (methicillin susceptible Staphylococcus aureus) septicemia Nausea & vomiting Obesity hypoventilation syndrome Palliative care encounter Panic attack as reaction to stress QT prolongation RSV (respiratory syncytial virus infection) Septic thrombophlebitis SOB (shortness of breath) Spinal abscess Syncope Vomiting and diarrhea Surgical History History of lumpectomy Family History Other Coronary heart disease Stroke Social History Smoking Status: Never smoker Second Hand Exposure: No; Do You Dip or Chew Tobacco: No; Hx Alcohol Use: No Hx Substance Use: No Preferred Language: Lithuanian Communication Ability: Effective [employer] Required: No Beliefs That Will Affect Care: None marital status: Single Current Living Situation: Alone Current Living Situation 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, 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 3HOURS A DAY 3 DAYS A WEEK current occupational status: retired How many Children do You have: 0 Feels Safe at Home: Yes Assistive Devices: Oxygen - Continuous and Wheelchair Allergies Allergies Allergy/AdvReac Type Severity Reaction Status Date / Time rabies vaccine, duck-embryo Allergy Severe HIVES Verified 06/09/22 12:02 ragweed pollen Allergy Unknown UNKNOWN Verified 06/09/22 12:02 tomato Allergy Unknown HIVES Verified 06/09/22 12:02 Home Meds Home Medications Medication Instructions Recorded Confirmed escitalopram oxalate 10 mg tablet 15 mg PO QAM 02/10/19 06/27/23 famotidine 20 mg tablet 20 mg PO QAM 02/10/19 06/27/23 levothyroxine 25 mcg tablet 25 mcg PO QAM 02/10/19 06/27/23 metoprolol succinate 25 mg capsule 25 mg PO BID 02/10/19 06/27/23 sprinkle, ext. release 24 hr mirtazapine 30 mg tablet 30 mg PO HS 02/10/19 06/27/23 pantoprazole 40 mg tablet,delayed 40 mg PO BID 02/10/19 06/27/23 release quetiapine 200 mg tablet 200 mg PO HS 02/10/19 06/27/23 rivaroxaban 20 mg tablet (Xarelto) 20 mg PO QAM 02/10/19 06/27/23 magnesium oxide 400 mg PO BID 02/20/19 06/27/23 insulin lispro 100 unit/mL 12 unit subcut TIDM 05/22/20 06/27/23 subcutaneous pen (Humalog KwikPen (U-100) Insulin) polysaccharide iron complex 150 mg 150 mg PO BID 02/27/21 06/27/23 iron capsule (Poly-Iron) cholecalciferol (vitamin D3) 10 10 mcg PO DAILY 10/07/22 06/27/23 mcg (400 unit) chewable tablet fluticasone propionate 50 50 mcg intranasal DAILY 10/07/22 06/27/23 mcg/actuation nasal spray,suspension Oxygen Home 11/18/22 06/27/23 acetaminophen 500 mg oral powder 500 mg PO Q4H PRN Pain 11/18/22 06/27/23 packet (Tylenol Extra Strength) furosemide 20 mg tablet (Lasix) 20 mg PO PRN 11/18/22 06/27/23 iron polysacch cplx 150 mg 1 cap PO BID 11/18/22 06/27/23 iron-vit B12 25 mcg-folic acid 1 mg capsule (iFerex) nystatin 100,000 unit/mL oral 500,000 unit PO QID 11/18/22 06/27/23 suspension spironolactone 50 mg tablet 100 mg PO DAILY 11/18/22 06/27/23 Previous Rx's Medication Instructions Recorded sodium chloride 7 % for 1 inh inhalation BID #240 mL 06/13/22 nebulization benzonatate 100 mg capsule 100 mg PO TID PRN cough #30 caps 10/18/22 buspirone 5 mg tablet 5 mg PO TID PRN anxiety #60 tabs 10/18/22 cyanocobalamin (vitamin B-12) 1,000 mcg PO DAILY #90 tabs 10/18/22 1,000 mcg tablet insulin glargine 100 unit/mL (3 15 unit (0.15 mL) subcut QAM #1 mL 10/18/22 mL) subcutaneous pen (Lantus Solostar U-100 Insulin) metformin 500 mg tablet,extended 500 mg PO BID #60 tabs 10/18/22 release 24 hr arformoterol 15 mcg/2 mL solution 2 ml inhalation BID #360 mL 12/12/22 for nebulization (Brovana) azithromycin 250 mg tablet 250 mg PO 3XWK #36 tabs 12/12/22 tiotropium bromide 18 mcg capsule 18 mcg inhalation DAILY #90 12/12/22 with inhalation device (Spiriva inhalations with HandiHaler) guaifenesin 1,200 mg tablet, 1,200 mg PO BID #60 tabs 01/07/23 extended release 12 hr (Mucinex) prednisone 20 mg tablet 40 mg (2 x 20 mg) PO DAILY #10 tabs 01/07/23 oxycodone 5 mg tablet 2.5 mg (1/2 x 5 mg) PO TID PRN 06/30/23 pain #7 tabs roflumilast 500 mcg tablet 500 mcg PO DAILY #90 tabs 07/27/23 (Daliresp) albuterol sulfate 90 mcg/actuation 2 puff inhalation Q6H PRN 09/02/23 aerosol inhaler Shortness Of Breath Or Wheezing #18 grams montelukast 10 mg tablet 10 mg PO HS #90 tabs 09/17/23 budesonide 0.5 mg/2 mL suspension 0.5 mg (2 mL) inhalation BID #180 09/28/23 for nebulization mL ipratropium 0.5 mg-albuterol 3 mg 3 ml inhalation Q8H PRN shortness 09/28/23 (2.5 mg base)/3 mL nebulization of breath or wheezing #540 mL soln revefenacin 175 mcg/3 mL solution 175 mcg (3 mL) inhalation DAILY 09/28/23 for nebulization #90 mL Results & Data (ED) Vital Signs Vital Signs - 24 hr 10/25/23 02:54 10/25/23 02:55 10/25/23 02:57 Temperature 36.7 C Temperature Source Oral Pulse Rate 68 64 65 Pulse Rate from SpO2 Sensor 68 Respiratory Rate 26 H 18 Respiratory Depth Normal Blood Pressure 133/81 Blood Pressure Mean 98 Pulse Oximetry 95 93 Oxygen Delivery Method Nasal Cannula Oxygen Flow Rate 3 Sepsis Recent Fever Within 48 Hours No Sepsis New/Unexplained Change in Mental Status No Sepsis Action Taken by Nursing No Action Required 10/25/23 02:57 10/25/23 03:00 10/25/23 03:10 Temperature Temperature Source Pulse Rate 66 66 Pulse Rate from SpO2 Sensor 65 66 Respiratory Rate 18 20 Respiratory Depth Blood Pressure Blood Pressure Mean Pulse Oximetry 93 92 Oxygen Delivery Method Nasal Cannula Oxygen Flow Rate 3 Sepsis Recent Fever Within 48 Hours Sepsis New/Unexplained Change in Mental Status Sepsis Action Taken by Nursing 10/25/23 03:20 10/25/23 03:30 10/25/23 03:40 Temperature Temperature Source Pulse Rate 66 66 67 Pulse Rate from SpO2 Sensor 66 66 66 Respiratory Rate 17 17 23 Respiratory Depth Blood Pressure Blood Pressure Mean Pulse Oximetry 95 93 95 Oxygen Delivery Method Oxygen Flow Rate Sepsis Recent Fever Within 48 Hours Sepsis New/Unexplained Change in Mental Status Sepsis Action Taken by Nursing 10/25/23 03:50 10/25/23 04:00 10/25/23 04:10 Temperature Temperature Source Pulse Rate 74 66 69 Pulse Rate from SpO2 Sensor 69 65 70 Respiratory Rate 20 20 21 Respiratory Depth Blood Pressure Blood Pressure Mean Pulse Oximetry 93 100 100 Oxygen Delivery Method Oxygen Flow Rate Sepsis Recent Fever Within 48 Hours Sepsis New/Unexplained Change in Mental Status Sepsis Action Taken by Nursing 10/25/23 04:20 10/25/23 04:29 10/25/23 04:29 Temperature Temperature Source Pulse Rate 76 73 73 Pulse Rate from SpO2 Sensor 75 73 Respiratory Rate 25 H 22 22 Respiratory Depth Blood Pressure 142/60 H Blood Pressure Mean 110 Pulse Oximetry 100 99 99 Oxygen Delivery Method Oxygen Flow Rate Sepsis Recent Fever Within 48 Hours Sepsis New/Unexplained Change in Mental Status Sepsis Action Taken by Nursing 10/25/23 04:30 10/25/23 04:40 10/25/23 04:50 Temperature Temperature Source Pulse Rate 73 77 79 Pulse Rate from SpO2 Sensor 74 77 78 Respiratory Rate 22 20 20 Respiratory Depth Blood Pressure Blood Pressure Mean Pulse Oximetry 100 100 100 Oxygen Delivery Method Oxygen Flow Rate Sepsis Recent Fever Within 48 Hours Sepsis New/Unexplained Change in Mental Status Sepsis Action Taken by Nursing 10/25/23 05:00 10/25/23 05:10 10/25/23 05:20 Temperature Temperature Source Pulse Rate 92 H 80 111 H Pulse Rate from SpO2 Sensor 94 H 83 117 H Respiratory Rate 21 22 18 Respiratory Depth Blood Pressure Blood Pressure Mean Pulse Oximetry 93 95 96 Oxygen Delivery Method Oxygen Flow Rate Sepsis Recent Fever Within 48 Hours Sepsis New/Unexplained Change in Mental Status Sepsis Action Taken by Nursing 10/25/23 05:30 10/25/23 05:40 10/25/23 05:50 Temperature Temperature Source Pulse Rate 114 H 104 H 112 H Pulse Rate from SpO2 Sensor 117 H 111 H 107 H Respiratory Rate 22 18 19 Respiratory Depth Blood Pressure Blood Pressure Mean Pulse Oximetry 96 96 97 Oxygen Delivery Method Oxygen Flow Rate Sepsis Recent Fever Within 48 Hours Sepsis New/Unexplained Change in Mental Status Sepsis Action Taken by Nursing 10/25/23 06:00 10/25/23 06:13 10/25/23 06:27 Temperature Temperature Source Pulse Rate 104 H 104 H 110 H Pulse Rate from SpO2 Sensor 98 H 101 H Respiratory Rate 19 15 Respiratory Depth Blood Pressure Blood Pressure Mean Pulse Oximetry 97 100 Oxygen Delivery Method Oxygen Flow Rate Sepsis Recent Fever Within 48 Hours Sepsis New/Unexplained Change in Mental Status Sepsis Action Taken by Nursing Laboratory Data 10/25/23 03:12 10/25/23 03:12 Lab Results 10/25/23 10/25/23 10/25/23 Range/Units 03:12 03:34 03:41 WBC 8.07 (4.8-10.8) K/ul RBC 3.96 L (4.20-5.40) M/uL Hgb 9.7 L (12.0-16.0) g/dl Hct 33.0 L (37.0-47.0) % MCV 83.3 (80.0-100.0) fL MCH 24.5 L (25.0-34.0) pg MCHC 29.4 L (32.0-36.0) g/dL RDW Std Deviation 55.4 H (36.4-46.3) fL RDW Coeff of Jame 18.4 H (11.5-14.5) % Plt Count 234 (130-400) K/uL MPV 9.4 (9.4-12.4) fL Immature Gran % (Auto) 0.2 % Neut % (Auto) 64.3 % Lymph % (Auto) 20.3 % [place] % (Auto) 9.2 % Eos % (Auto) 5.1 % Baso % (Auto) 0.9 % Neut # (Auto) 5.19 (1.40-6.50) K/uL Lymph # (Auto) 1.64 (1.20-3.40) K/uL [place] # (Auto) 0.74 H (0.11-0.59) K/uL Eos # (Auto) 0.41 (0.00-0.50) K/uL Baso # (Auto) 0.07 (0.00-0.20) K/uL Immature Gran # (Auto) 0.02 (0.01-0.20) K/uL PT Cancelled INR Cancelled APTT Cancelled PTT Ratio Cancelled VBG pH 7.34 L (7.36-7.41) VBG pCO2 67 H (38-50) mmHg VBG pO2 46 mmHg VBG HCO3 36 mmol/L VBG O2 Saturation 78.3 % VBG Base Excess 7.8 mEq/L Sodium 137 (136-145) mmol/L Potassium 4.6 (3.5-5.1) mmol/L Chloride 99 (98-107) mmol/L Carbon Dioxide 34 H (21-32) mmol/L Anion Gap 4 (3-11) BUN 17 (6-23) mg/dl Creatinine 1.86 H (0.6-1.2) mg/dl Est Cr Clr Drug Dosing 27.6 ml/min Est GFR ( Amer) 29.3 ml/min Est GFR (Non-Af Amer) 25.3 ml/min BUN/Creatinine Ratio 9.1 L (10-20) Glucose 274 H (70-99(Fasting)) mg/dl Calcium 8.7 (8.6-10.3) mg/dl Magnesium 1.7 (1.7-2.4) mg/dl Total Bilirubin 0.3 (0.2-1.0) mg/dl AST 12 L (13-39) U/L ALT 7 (7-52) U/L Alkaline Phosphatase 81 (34-104) U/L Troponin I High Sens 6.9 (0-14) pg/ml B-Natriuretic Peptide 130 H (0-100) pg/ml Total Protein 6.1 (6.0-8.3) gm/dl Albumin 3.6 (3.4-5.0) gm/dl Globulin 2.5 (2.5-4.0) gm/dl Albumin/Globulin Ratio 1.4 (0.9-2) Adenovirus (PCR) Not Detected (NotDetected) B. pertussis DNA (PCR) Not Detected (NotDetected) B.parapertussis DNA PCR Not Detected (NotDetected) C. pneumoniae DNA (PCR) Not Detected (NotDetected) Coronavirus OC43 (PCR) Not Detected (NotDetected) Coronavirus HKU1 (PCR) Not Detected (NotDetected) Coronavirus 229E (PCR) Not Detected (NotDetected) SARS-CoV-2 (PCR) Not Detected (NotDetected) Coronavirus NL63 (PCR) Not Detected (NotDetected) Human Metapneumovir PCR Not Detected (NotDetected) Influenza Type A (PCR) Not Detected (NotDetected) Influenza Type B (PCR) Not Detected (NotDetected) M. pneumoniae (PCR) Not Detected (NotDetected) Parainfluenza 1 (PCR) Not Detected (NotDetected) Parainfluenza 2 (PCR) Not Detected (NotDetected) Parainfluenza 3 (PCR) Not Detected (NotDetected) Parainfluenza 4 (PCR) Not Detected (NotDetected) RSV (PCR) Not Detected (NotDetected) Entero/Rhino (PCR) Not Detected (NotDetected) 10/25/23 Range/Units 04:13 WBC (4.8-10.8) K/ul RBC (4.20-5.40) M/uL Hgb (12.0-16.0) g/dl Hct (37.0-47.0) % MCV (80.0-100.0) fL MCH (25.0-34.0) pg MCHC (32.0-36.0) g/dL RDW Std Deviation (36.4-46.3) fL RDW Coeff of Jame (11.5-14.5) % Plt Count (130-400) K/uL MPV (9.4-12.4) fL Immature Gran % (Auto) % Neut % (Auto) % Lymph % (Auto) % [place] % (Auto) % Eos % (Auto) % Baso % (Auto) % Neut # (Auto) (1.40-6.50) K/uL Lymph # (Auto) (1.20-3.40) K/uL [place] # (Auto) (0.11-0.59) K/uL Eos # (Auto) (0.00-0.50) K/uL Baso # (Auto) (0.00-0.20) K/uL Immature Gran # (Auto) (0.01-0.20) K/uL PT 11.8 INR 1.1 APTT 29 PTT Ratio 1.0 VBG pH (7.36-7.41) VBG pCO2 (38-50) mmHg VBG pO2 mmHg VBG HCO3 mmol/L VBG O2 Saturation % VBG Base Excess mEq/L Sodium (136-145) mmol/L Potassium (3.5-5.1) mmol/L Chloride (98-107) mmol/L Carbon Dioxide (21-32) mmol/L Anion Gap (3-11) BUN (6-23) mg/dl Creatinine (0.6-1.2) mg/dl Est Cr Clr Drug Dosing ml/min Est GFR ( Amer) ml/min Est GFR (Non-Af Amer) ml/min BUN/Creatinine Ratio (10-20) Glucose (70-99(Fasting)) mg/dl Calcium (8.6-10.3) mg/dl Magnesium (1.7-2.4) mg/dl Total Bilirubin (0.2-1.0) mg/dl AST (13-39) U/L ALT (7-52) U/L Alkaline Phosphatase (34-104) U/L Troponin I High Sens (0-14) pg/ml B-Natriuretic Peptide (0-100) pg/ml Total Protein (6.0-8.3) gm/dl Albumin (3.4-5.0) gm/dl Globulin (2.5-4.0) gm/dl Albumin/Globulin Ratio (0.9-2) Adenovirus (PCR) (NotDetected) B. pertussis DNA (PCR) (NotDetected) B.parapertussis DNA PCR (NotDetected) C. pneumoniae DNA (PCR) (NotDetected) Coronavirus OC43 (PCR) (NotDetected) Coronavirus HKU1 (PCR) (NotDetected) Coronavirus 229E (PCR) (NotDetected) SARS-CoV-2 (PCR) (NotDetected) Coronavirus NL63 (PCR) (NotDetected) Human Metapneumovir PCR (NotDetected) Influenza Type A (PCR) (NotDetected) Influenza Type B (PCR) (NotDetected) M. pneumoniae (PCR) (NotDetected) Parainfluenza 1 (PCR) (NotDetected) Parainfluenza 2 (PCR) (NotDetected) Parainfluenza 3 (PCR) (NotDetected) Parainfluenza 4 (PCR) (NotDetected) RSV (PCR) (NotDetected) Entero/Rhino (PCR) (NotDetected) Administered Medications Discontinued Medications Albuterol (Albut/Ipratrop 3mg/0.5mg Neb 3 Ml Vial) 12 ml INH ONE STA Stop: 10/25/23 03:02 Last Admin: 10/25/23 03:54 Dose: 12 ml Documented By: WINTER Furosemide (Furosemide Inj 20 Mg/2 Ml Vial) 20 mg IV ONE ONE Stop: 10/25/23 05:26 Last Admin: 10/25/23 06:09 Dose: 20 mg Documented By: WINTER Methylprednisolone (Methylprednisolone 125 Mg/2 Ml Vial) 60 mg IV NOW STA Stop: 10/25/23 05:25 Last Admin: 10/25/23 06:09 Dose: 60 mg Documented By: WINTER Discharge Plan Visit Data Chief Complaint: Shortness of Breath/Dyspnea Stated Complaint: SOB, Edema ED Provider: Van Peralta Discharge Problem: Acute and chronic respiratory failure, Fluid overload, Nausea, DARI (acute kidney injury) Patient Disposition: Being Evaluated by Hospitalist Forms Stand Alone Forms: My [facility] Prescriptions Prescriptions: No Action iFerex 150 Forte 150-25-1 mg-mcg-mg capsule 1 cap PO BID furosemide [Lasix] 20 mg tablet 20 mg PO PRN nystatin 100,000 unit/mL suspension 500,000 unit PO QID Rx Instructions: administer 1/2 of dose in each side of the mouth (DME) Oxygen Home Liters Per Minute See Rx Instructions .Route Rx Instructions: As directed- 2lpm all the time spironolactone 50 mg tablet 100 mg PO DAILY Tylenol Extra Strength 500 mg powder in packet 500 mg PO Q4H PRN (Reason: Pain) Rx Instructions: 1-2 tabs every 4-6 hours PRN pain prednisone 20 mg tablet 40 mg PO DAILY Qty: 10 0RF Rx Instructions: Take two tablets each morning until gone. Complete prescription as directed Mucinex 1,200 mg tablet extended release 12hr 1,200 mg PO BID Qty: 60 0RF Daliresp 500 mcg tablet 500 mcg PO DAILY Qty: 90 2RF albuterol sulfate 90 mcg/actuation HFA aerosol inhaler 2 puff inhalation Q6H PRN (Reason: Shortness Of Breath Or Wheezing) Qty: 18 2RF montelukast 10 mg tablet 10 mg PO HS Qty: 90 2RF budesonide 0.5 mg/2 mL suspension for nebulization 0.5 mg inhalation BID Qty: 180 4RF ipratropium-albuterol 0.5 mg-3 mg(2.5 mg base)/3 mL solution for nebulization 3 ml inhalation Q8H PRN (Reason: shortness of breath or wheezing) Qty: 540 2RF revefenacin 175 mcg/3 mL solution for nebulization 175 mcg inhalation DAILY Qty: 90 3RF azithromycin 250 mg tablet 250 mg PO 3XWK Qty: 36 5RF Rx Instructions: Thursday, Thursday, Thursday arformoterol [Brovana] 15 mcg/2 mL solution for nebulization 2 ml inhalation BID Qty: 360 4RF Spiriva with HandiHaler 18 mcg capsule, w/inhalation device 18 mcg INHALATION DAILY Qty: 90 2RF sodium chloride 7 % solution for nebulization 1 inh inhalation BID Qty: 240 6RF insulin lispro [Humalog KwikPen Insulin] 100 unit/mL insulin pen 12 unit SUBCUT TIDM quetiapine 200 mg Tablet 200 mg PO HS levothyroxine 25 mcg Tablet 25 mcg PO QAM famotidine 20 mg Tablet 20 mg PO QAM pantoprazole 40 mg Tablet,Delayed Release (Dr/Ec) 40 mg PO BID mirtazapine 30 mg tablet 30 mg PO HS escitalopram oxalate 10 mg Tablet 15 mg PO QAM Xarelto 20 mg Tablet 20 mg PO QAM metoprolol succinate 25 mg Capsule,Sprinkle,Er 24hr 25 mg PO BID magnesium oxide 400 mg magnesium Tablet 400 mg PO BID polysaccharide iron complex [Poly-Iron] 150 mg iron capsule 150 mg PO BID fluticasone propionate 50 mcg/actuation spray,suspension 50 mcg INTRANASAL DAILY cholecalciferol (vitamin D3) 10 mcg (400 unit) tablet,chewable 10 mcg PO DAILY buspirone 5 mg Tablet 5 mg PO TID PRN (Reason: anxiety) Qty: 60 1RF benzonatate 100 mg Capsule 100 mg PO TID PRN (Reason: cough) Qty: 30 0RF cyanocobalamin (vitamin B-12) 1,000 mcg tablet 1,000 mcg PO DAILY Qty: 90 1RF Rx Instructions: purchase over the counter metformin 500 mg Tablet Extended Release 24 Hr 500 mg PO BID Qty: 60 0RF Rx Instructions: take with breakfast and with your evening dinner meal insulin glargine [Lantus Solostar U-100 Insulin] 100 unit/mL (3 mL) insulin pen 15 unit subcut QAM Qty: 1 0RF Rx Instructions: per dr 1st oxycodone 5 mg tablet 2.5 mg PO TID PRN (Reason: pain) Qty: 7 0RF Referrals Referrals: Dayna Blulard PA-C [Primary Care Provider] - Discharge Problem: Acute and chronic respiratory failure Qualifiers: Respiratory failure complication: hypoxia and hypercapnia Qualified Code(s): J 96.21 - Acute and chronic respiratory failure with hypoxia; J96.22 - Acute and chronic respiratory failure with hypercapnia
[2023-10-25 03:52] LABS: Base Excess VBG 7.8 mEq/L; HCO3 VBG 36 mmol/L; Oxygen Saturation VBG 78.3 %; PCO2 VBG 67 mmHg (38-50); PO2 VBG 46 mmHg; pH VBG 7.34 (7.36-7.41)
[2023-10-25] MEDS: ALBUT/IPRATROP 3MG/0.5MG NEB 3 ML VIAL INH STA (03:54)
[2023-10-25 04:34] LABS: Adenovirus PCR Not Detected (NotDetected); Bordetella parapertussis PCR Not Detected (NotDetected); Bordetella pertussis PCR Not Detected (NotDetected); Chlamydia pneumoniae PCR Not Detected (NotDetected); Coronavirus 229E PCR Not Detected (NotDetected); Coronavirus CoV-2 (COVID19)PCR Not Detected (NotDetected); Coronavirus HKU1 PCR Not Detected (NotDetected); Coronavirus NL63 PCR Not Detected (NotDetected); Coronavirus OC43PCR Not Detected (NotDetected); Human Metapneumovirus PCR Not Detected (NotDetected); Influenza A PCR Not Detected (NotDetected); Influenza B PCR Not Detected (NotDetected); Mycoplasma pneumoniae PCR Not Detected (NotDetected); Parainfluenza Virus 1 PCR Not Detected (NotDetected); Parainfluenza Virus 2 PCR Not Detected (NotDetected); Parainfluenza Virus 3 PCR Not Detected (NotDetected); Parainfluenza Virus 4 PCR Not Detected (NotDetected); Respiratory Syncytial VirusPCR Not Detected (NotDetected); Rhinovirus/Enterovirus PCR Not Detected (NotDetected)
[2023-10-25 04:54] LABS: INR 1.1 (0.9-1.1); Partial Thromboplastin Time 29 Seconds (21-31); Prothrombin Time 11.8 Seconds (9.0-12.0)
[2023-10-25 05:04] LABS: Albumin Level 3.6 gm/dl (3.4-5.0); BUN Creatinine Ratio 9.1 (10-20); Bilirubin,Total 0.3 mg/dl (0.2-1.0); Calcium 8.7 mg/dl (8.6-10.3); Creatinine Clr Calc Pharmacy 27.6 ml/min; Est GFR (African American) 29.3 ml/min; Est GFR (Non-African American) 25.3 ml/min; Magnesium 1.7 mg/dl (1.7-2.4); Total Protein 6.1 gm/dl (6.0-8.3)
[2023-10-25 05:05] LABS: Albumin Globulin Ratio 1.4 (0.9-2); Globulin 2.5 gm/dl (2.5-4.0); Troponin I High Sensitivity 6.9 pg/ml (0-14)
[2023-10-25 05:22] LABS: Potassium 4.6 mmol/L (3.5-5.1)
[2023-10-25] MEDS: methylPREDNISolone 125 MG/2 ML VIAL IV STA (06:09)
[2023-10-25] MEDS: FUROSEMIDE INJ 20 MG/2 ML VIAL IV ONE (06:09)
--- NOTE | 2023-10-25 07:00 | History & Physical Report ---
Date of Service October 25, 2023 Assessment & Plan (1) Acute and chronic respiratory failure: (2) DARI (acute kidney injury): (3) Fluid overload: (4) Acute exacerbation of chronic obstructive pulmonary disease: (5) VIJAY (obstructive sleep apnea): (6) History of pulmonary embolism: (7) Hypothyroidism: (8) Atrial fibrillation: (9) Diabetes: (10) KATHLEEN (generalized anxiety disorder): (11) Hypertension: (12) GERD (gastroesophageal reflux disease): Plan Acute on chronic respiratory failure with hypoxia- Primarily COPD exacerbation, but component of CHF and fluid overload as well Nasal cannula oxygen, titrate to keep pulse ox around 92-94% COPD exacerbation- Received Solu-Medrol 60 mg IV in the ED Continue Solu-Medrol 20 mg IV every 8 hours, follow the blood sugar levels closely Guaifenesin extended release 1200 mg p.o. twice daily Azithromycin 500 mg IV daily Duonebs every 4 hours while awake and every 2 hours when necessary. Continue arformoterol, Pulmicort Respules, Roflumilast, Spiriva and montelukast Atrial fibrillation/CHF/hypertension- Continue Xarelto, mag oxide, metoprolol succinate, spironolactone Diabetes mellitus- Continue glargine 15 units subcu every morning Hold metformin Placed on Accu-Cheks with NovoLog SSI Acute kidney injury- Creatinine 1.86 on admission, with base 0.9 Patient did receive furosemide 20 mg IV from the ED, without continue Placed on NSS at 60 mL/h x 1 L Recheck laboratories in a.m. History of Present Illness Chief Complaint: The patient presents to the emergency department with complaint of shortness of breath, dyspnea on exertion and generalized fatigue over the past few weeks Primary Care Provider: Dayna Bullard The patient is a 78-year-old female with a past medical history including chronic respiratory failure, COPD, atrial fibrillation with RVR, panic attack, VIJAY, atrial fibrillation, pulmonary embolism, hypothyroidism, GERD, KATHLEEN, septic thrombophlebitis and syncope. She has chronic shortness of breath, however, symptoms have worsened slightly over the past few weeks, to the point that she could not understand and came to the ED this evening. From the ED patient seen the following: Hour-long DuoNeb, Solu-Medrol 60 mg IV and Lasix 20 mg IV. She reports her symptoms have improved somewhat with the initial treatments Allergies Allergy/AdvReac Type Severity Reaction Status Date / Time rabies vaccine, duck-embryo Allergy Severe HIVES Verified 06/09/22 12:02 ragweed pollen Allergy Unknown UNKNOWN Verified 06/09/22 12:02 tomato Allergy Unknown HIVES Verified 06/09/22 12:02 Home Medications Medication Instructions Recorded Confirmed Type escitalopram oxalate 10 mg tablet 15 mg PO QAM 02/10/19 06/27/23 History famotidine 20 mg tablet 20 mg PO QAM 02/10/19 06/27/23 History levothyroxine 25 mcg tablet 25 mcg PO QAM 02/10/19 06/27/23 History metoprolol succinate 25 mg capsule 25 mg PO BID 02/10/19 06/27/23 History sprinkle, ext. release 24 hr mirtazapine 30 mg tablet 30 mg PO HS 02/10/19 06/27/23 History pantoprazole 40 mg tablet,delayed 40 mg PO BID 02/10/19 06/27/23 History release quetiapine 200 mg tablet 200 mg PO HS 02/10/19 06/27/23 History rivaroxaban 20 mg tablet (Xarelto) 20 mg PO M 02/10/19 06/27/23 History magnesium oxide 400 mg PO BID 02/20/19 06/27/23 History insulin lispro 100 unit/mL 12 unit subcut TIDM 05/22/20 06/27/23 History subcutaneous pen (Humalog KwikPen (U-100) Insulin) polysaccharide iron complex 150 mg 150 mg PO BID 02/27/21 06/27/23 History iron capsule (Poly-Iron) sodium chloride 7 % for 1 inh inhalation BID #240 mL 06/13/22 06/27/23 Rx nebulization cholecalciferol (vitamin D3) 10 10 mcg PO DAILY 10/07/22 06/27/23 History mcg (400 unit) chewable tablet fluticasone propionate 50 50 mcg intranasal DAILY 10/07/22 06/27/23 History mcg/actuation nasal spray,suspension benzonatate 100 mg capsule 100 mg PO TID PRN cough #30 caps 10/18/22 06/27/23 Rx buspirone 5 mg tablet 5 mg PO TID PRN anxiety #60 tabs 10/18/22 06/27/23 Rx cyanocobalamin (vitamin B-12) 1,000 mcg PO DAILY #90 tabs 10/18/22 06/27/23 Rx 1,000 mcg tablet insulin glargine 100 unit/mL (3 15 unit (0.15 mL) subcut QAM #1 mL 10/18/22 06/27/23 Rx mL) subcutaneous pen (Lantus Solostar U-100 Insulin) metformin 500 mg tablet,extended 500 mg PO BID #60 tabs 10/18/22 06/27/23 Rx release 24 hr Oxygen Home 11/18/22 06/27/23 History acetaminophen 500 mg oral powder 500 mg PO Q4H PRN Pain 11/18/22 06/27/23 History packet (Tylenol Extra Strength) furosemide 20 mg tablet (Lasix) 20 mg PO PRN 11/18/22 06/27/23 History iron polysacch cplx 150 mg 1 cap PO BID 11/18/22 06/27/23 History iron-vit B12 25 mcg-folic acid 1 mg capsule (iFerex) nystatin 100,000 unit/mL oral 500,000 unit PO QID 11/18/22 06/27/23 History suspension spironolactone 50 mg tablet 100 mg PO DAILY 11/18/22 06/27/23 History arformoterol 15 mcg/2 mL solution 2 ml inhalation BID #360 mL 12/12/22 06/27/23 Rx for nebulization (Brovana) azithromycin 250 mg tablet 250 mg PO 3XWK #36 tabs 12/12/22 06/27/23 Rx tiotropium bromide 18 mcg capsule 18 mcg inhalation DAILY #90 12/12/22 06/27/23 Rx with inhalation device (Spiriva inhalations with HandiHaler) guaifenesin 1,200 mg tablet, 1,200 mg PO BID #60 tabs 01/07/23 06/27/23 Rx extended release 12 hr (Mucinex) prednisone 20 mg tablet 40 mg (2 x 20 mg) PO DAILY #10 tabs 01/07/23 06/27/23 Rx oxycodone 5 mg tablet 2.5 mg (1/2 x 5 mg) PO TID PRN 06/30/23 Rx pain #7 tabs roflumilast 500 mcg tablet 500 mcg PO DAILY #90 tabs 07/27/23 Rx (Daliresp) albuterol sulfate 90 mcg/actuation 2 puff inhalation Q6H PRN 09/02/23 Rx aerosol inhaler Shortness Of Breath Or Wheezing #18 grams montelukast 10 mg tablet 10 mg PO HS #90 tabs 09/17/23 Rx budesonide 0.5 mg/2 mL suspension 0.5 mg (2 mL) inhalation BID #180 09/28/23 Rx for nebulization mL ipratropium 0.5 mg-albuterol 3 mg 3 ml inhalation Q8H PRN shortness 09/28/23 Rx (2.5 mg base)/3 mL nebulization of breath or wheezing #540 mL soln revefenacin 175 mcg/3 mL solution 175 mcg (3 mL) inhalation DAILY 09/28/23 Rx for nebulization #90 mL Past Med/Surg History Medical History Acute and chronic respiratory failure with hypoxia Acute on chronic combined systolic (congestive) and diastolic (congestive) heart failure Acute on chronic respiratory failure with hypoxia and hypercapnia Acute respiratory failure with hypoxia Advanced care planning/counseling discussion Air hunger Atelectasis Breast cancer, right breast CHF (congestive heart failure) COPD (chronic obstructive pulmonary disease) COPD exacerbation Diabetes Dyspnea and respiratory abnormalities Elevated troponin Endocarditis KATHLEEN (generalized anxiety disorder) GERD (gastroesophageal reflux disease) GI bleed Hypoxia Major depression, recurrent, full remission MSSA (methicillin susceptible Staphylococcus aureus) septicemia Nausea & vomiting Obesity hypoventilation syndrome Palliative care encounter Panic attack as reaction to stress QT prolongation RSV (respiratory syncytial virus infection) Septic thrombophlebitis SOB (shortness of breath) Spinal abscess Syncope Vomiting and diarrhea Surgical History History of lumpectomy Family History Other Coronary heart disease Stroke Social History Smoking Status: Never smoker Second Hand Exposure: No; Do You Dip or Chew Tobacco: No; Hx Alcohol Use: No Hx Substance Use: No Preferred Language: Brazilian Communication Ability: Effective Surgical Asst Required: No Beliefs That Will Affect Care: None marital status: Single Current Living Situation: Alone Current Living Situation 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, CAREGIVER 3HOURS A DAY 3 DAYS A WEEK current occupational status: retired How many Children do You have: 0 Feels Safe at Home: Yes Assistive Devices: Oxygen - Continuous and Wheelchair Review of Systems Review of Systems: The patient denies chest pain, palpitations, lower extremity swelling, sore throat, fevers, chills, sweats, nausea, vomiting, diarrhea , constipation, abdominal pain, pelvic pain, blood in urine or stool, dysuria, urinary frequency or urgency, lightheadedness, dizziness, headache, memory loss, loss of consciousness, rash, abnormal bruising or bleeding, focal weakness, numbness or tingling in arms or legs, generalized arthralgias or myalgias, back or neck pain, or night sweats. The review of systems is otherwise negative other than for that already noted above, and at least 10 systems have been reviewed. Physical Exam Physical Exam: The patient is awake, alert and oriented 3, well developed and well nourished, normocephalic and atraumatic, lying in bed and in no acute distress. HEENT--PERRL, EOMI, mucous membranes and oropharynx dry. Neck--supple. No JVD. No bruits. Thyroid normal, trachea midline, no adenopathy. Heart--normal S1 and S2. No murmurs, rubs or gallops. Lungs--inspiratory and expiratory wheezes bilaterally Abdomen--normal bowel sounds and soft. Nontender. Nondistended. Obese Extremities--no cyanosis or clubbing. Trace pretibial pitting edema. Dermatologic--normal skin turgor, normal color, no abnormal lymph nodes, no rash. Neurologic--cranial nerves II through XII grossly intact. Rheumatologic--normal range of motion. Psychiatric--normal affect. Results & Data Results & Data Vital Signs (Past 12 Hours) Vital Signs Temp Pulse Pulse Resp BP BP Pulse Ox 10/25/23 06:55 108 H 22 118/87 97 10/25/23 06:40 121 H 19 97 10/25/23 06:30 106 H 19 98 10/25/23 06:30 106 H 21 122/78 98 10/25/23 06:27 110 H 10/25/23 06:20 106 H 21 98 10/25/23 06:18 112 H 22 99 10/25/23 06:18 112 H 22 133/76 99 10/25/23 06:13 104 H 15 100 10/25/23 06:00 104 H 19 97 10/25/23 05:50 112 H 19 97 10/25/23 05:40 104 H 18 96 10/25/23 05:30 114 H 22 96 10/25/23 05:20 111 H 18 96 10/25/23 05:10 80 22 95 10/25/23 05:00 92 H 21 93 10/25/23 04:50 79 20 100 10/25/23 04:40 77 20 100 10/25/23 04:30 73 22 100 10/25/23 04:29 73 22 142/60 H 99 10/25/23 04:29 73 22 99 10/25/23 04:20 76 25 H 100 10/25/23 04:10 69 21 100 10/25/23 04:00 66 20 100 10/25/23 03:50 74 20 93 10/25/23 03:40 67 23 95 10/25/23 03:30 66 17 93 10/25/23 03:20 66 17 95 10/25/23 03:10 66 20 92 10/25/23 03:00 66 18 93 10/25/23 02:57 10/25/23 02:57 36.7 C 65 18 133/81 93 10/25/23 02:55 64 10/25/23 02:54 68 26 H 95 O2 Del Method O2 Flow Rate 10/25/23 06:55 Nasal Cannula 3 10/25/23 06:40 10/25/23 06:30 10/25/23 06:30 10/25/23 06:27 10/25/23 06:20 10/25/23 06:18 10/25/23 06:18 10/25/23 06:13 10/25/23 06:00 10/25/23 05:50 10/25/23 05:40 10/25/23 05:30 10/25/23 05:20 10/25/23 05:10 10/25/23 05:00 10/25/23 04:50 10/25/23 04:40 10/25/23 04:30 10/25/23 04:29 10/25/23 04:29 10/25/23 04:20 10/25/23 04:10 10/25/23 04:00 10/25/23 03:50 10/25/23 03:40 10/25/23 03:30 10/25/23 03:20 10/25/23 03:10 10/25/23 03:00 10/25/23 02:57 Nasal Cannula 3 10/25/23 02:57 Nasal Cannula 3 10/25/23 02:55 10/25/23 02:54 Laboratory Results Laboratory Results WBC 8.07 K/ul (4.8-10.8) 10/25/23 03:12 RBC 3.96 M/uL (4.20-5.40) L 10/25/23 03:12 Hgb 9.7 g/dl (12.0-16.0) L 10/25/23 03:12 Hct 33.0 % (37.0-47.0) L 10/25/23 03:12 MCV 83.3 fL (80.0-100.0) 10/25/23 03:12 MCH 24.5 pg (25.0-34.0) L 10/25/23 03:12 MCHC 29.4 g/dL (32.0-36.0) L 10/25/23 03:12 RDW Std Deviation 55.4 fL (36.4-46.3) H 10/25/23 03:12 RDW Coeff of Jame 18.4 % (11.5-14.5) H 10/25/23 03:12 Plt Count 234 K/uL (130-400) 10/25/23 03:12 MPV 9.4 fL (9.4-12.4) 10/25/23 03:12 Immature Gran % (Auto) 0.2 % 10/25/23 03:12 Neut % (Auto) 64.3 % 10/25/23 03:12 Lymph % (Auto) 20.3 % 10/25/23 03:12 Mcculloch % (Auto) 9.2 % 10/25/23 03:12 Eos % (Auto) 5.1 % 10/25/23 03:12 Baso % (Auto) 0.9 % 10/25/23 03:12 Neut # (Auto) 5.19 K/uL (1.40-6.50) 10/25/23 03:12 Lymph # (Auto) 1.64 K/uL (1.20-3.40) 10/25/23 03:12 Mcculloch # (Auto) 0.74 K/uL (0.11-0.59) H 10/25/23 03:12 Eos # (Auto) 0.41 K/uL (0.00-0.50) 10/25/23 03:12 Baso # (Auto) 0.07 K/uL (0.00-0.20) 10/25/23 03:12 Immature Gran # (Auto) 0.02 K/uL (0.01-0.20) 10/25/23 03:12 PT 11.8 Seconds (9.0-12.0) 10/25/23 04:13 INR 1.1 (0.9-1.1) 10/25/23 04:13 APTT 29 Seconds (21-31) 10/25/23 04:13 PTT Ratio 1.0 10/25/23 04:13 VBG pH 7.34 (7.36-7.41) L 10/25/23 03:41 VBG pCO2 67 mmHg (38-50) H 10/25/23 03:41 VBG pO2 46 mmHg 10/25/23 03:41 VBG HCO3 36 mmol/L 10/25/23 03:41 VBG O2 Saturation 78.3 % 10/25/23 03:41 VBG Base Excess 7.8 mEq/L 10/25/23 03:41 Sodium 137 mmol/L (136-145) 10/25/23 03:12 Potassium 4.6 mmol/L (3.5-5.1) 10/25/23 03:12 Chloride 99 mmol/L (98-107) 10/25/23 03:12 Carbon Dioxide 34 mmol/L (21-32) H 10/25/23 03:12 Anion Gap 4 (3-11) 10/25/23 03:12 BUN 17 mg/dl (6-23) 10/25/23 03:12 Creatinine 1.86 mg/dl (0.6-1.2) H 10/25/23 03:12 Est Cr Clr Drug Dosing 27.6 ml/min 10/25/23 03:12 Est GFR ( Amer) 29.3 ml/min 10/25/23 03:12 Est GFR (Non-Af Amer) 25.3 ml/min 10/25/23 03:12 BUN/Creatinine Ratio 9.1 (10-20) L 10/25/23 03:12 Glucose 274 mg/dl (70-99(Fasting)) H 10/25/23 03:12 Calcium 8.7 mg/dl (8.6-10.3) 10/25/23 03:12 Magnesium 1.7 mg/dl (1.7-2.4) 10/25/23 03:12 Total Bilirubin 0.3 mg/dl (0.2-1.0) 10/25/23 03:12 AST 12 U/L (13-39) L 10/25/23 03:12 ALT 7 U/L (7-52) 10/25/23 03:12 Alkaline Phosphatase 81 U/L (34-104) 10/25/23 03:12 Troponin I High Sens 6.9 pg/ml (0-14) 10/25/23 03:12 B-Natriuretic Peptide 130 pg/ml (0-100) H 10/25/23 03:34 Total Protein 6.1 gm/dl (6.0-8.3) 10/25/23 03:12 Albumin 3.6 gm/dl (3.4-5.0) 10/25/23 03:12 Globulin 2.5 gm/dl (2.5-4.0) 10/25/23 03:12 Albumin/Globulin Ratio 1.4 (0.9-2) 10/25/23 03:12 Adenovirus (PCR) Not Detected (NotDetected) 10/25/23 03:12 B. pertussis DNA (PCR) Not Detected (NotDetected) 10/25/23 03:12 B.parapertussis DNA PCR Not Detected (NotDetected) 10/25/23 03:12 C. pneumoniae DNA (PCR) Not Detected (NotDetected) 10/25/23 03:12 Coronavirus OC43 (PCR) Not Detected (NotDetected) 10/25/23 03:12 Coronavirus HKU1 (PCR) Not Detected (NotDetected) 10/25/23 03:12 Coronavirus 229E (PCR) Not Detected (NotDetected) 10/25/23 03:12 SARS-CoV-2 (PCR) Not Detected (NotDetected) 10/25/23 03:12 Coronavirus NL63 (PCR) Not Detected (NotDetected) 10/25/23 03:12 Human Metapneumovir PCR Not Detected (NotDetected) 10/25/23 03:12 Influenza Type A (PCR) Not Detected (NotDetected) 10/25/23 03:12 Influenza Type B (PCR) Not Detected (NotDetected) 10/25/23 03:12 M. pneumoniae (PCR) Not Detected (NotDetected) 10/25/23 03:12 Parainfluenza 1 (PCR) Not Detected (NotDetected) 10/25/23 03:12 Parainfluenza 2 (PCR) Not Detected (NotDetected) 10/25/23 03:12 Parainfluenza 3 (PCR) Not Detected (NotDetected) 10/25/23 03:12 Parainfluenza 4 (PCR) Not Detected (NotDetected) 10/25/23 03:12 RSV (PCR) Not Detected (NotDetected) 10/25/23 03:12 Entero/Rhino (PCR) Not Detected (NotDetected) 10/25/23 03:12 Code Status & VTE Plan Code Status Full code VTE Prophylaxis Plan VTE Prophylaxis will be ordered: Yes PG Care Time/CCT Total # of Minutes Spent Total Time Spent with Patient: Total time spent is greater than 50% in coordination of care (as documented) at patient's floor/unit and/or counseling patient: Coding Level of Care Code 80261 INT INP/OBS CARE 3/75MIN Diagnoses Acute and chronic respiratory failure J96.21; J96.22 Respiratory failure complication: hypoxia and hypercapnia DARI (acute kidney injury) N17.9 Fluid overload E87.70 Acute exacerbation of chronic obstructive pulmonary disease J44.1 VIJAY (obstructive sleep apnea) G47.33 History of pulmonary embolism Z86.711 Hypothyroidism E03.9 Atrial fibrillation I48.91 Type 2 diabetes mellitus without complication, with long-term current use of insulin E11.9; Z79.4 Diabetes mellitus type: type 2 Diabetes mellitus spanish medical interpreter insulin use: with [facility] use Diabetes mellitus complication status: without complication KATHLEEN (generalized anxiety disorder) F41.1 Essential hypertension I10 Hypertension type: essential hypertension Gastroesophageal reflux disease, esophagitis presence not specified K21.9 Esophagitis presence: esophagitis presence not specified (1) Acute and chronic respiratory failure Respiratory failure complication: hypoxia and hypercapnia Qualified Code(s): J96.21 - Acute and chronic respiratory failure with hypoxia; J96.22 - Acute and chronic respiratory failure with hypercapnia (9) Diabetes Diabetes mellitus type: type 2 Diabetes mellitus spanish medical interpreter insulin use: with [facility] use Diabetes mellitus complication status: without complication Qualified Code(s): E11.9 - Type 2 diabetes mellitus without complications; Z79.4 - shelter (current) use of insulin (11) Hypertension Hypertension type: essential hypertension Qualified Code(s): I10 - Essential (primary) hypertension (12) GERD (gastroesophageal reflux disease) Esophagitis presence: esophagitis presence not specified Qualified Code(s): K21.9 - Gastro-esophageal reflux disease without esophagitis
--- NOTE | 2023-10-25 07:15 | Electrocardiogram Report ---
Test Reason : Blood Pressure : / mmHG Vent. Rate : 063 BPM Atrial Rate : 063 BPM P-R Int : 170 ms QRS Dur : 070 ms QT Int : 410 ms P-R-T Axes : 067 001 062 degrees QTc Int : 419 ms Normal sinus rhythm Normal ECG When compared with ECG of 27-JUN-2023 02:20, Sinus rhythm has replaced Atrial fibrillation Vent. rate has decreased BY 58 BPM Nonspecific T wave abnormality, improved in Lateral leads Confirmed by Loyd Lawton ([id number] on 10/25/2023 7:15:21 AM Referred By: REFERRED SELF Confirmed By:Roel Lawton
--- NOTE | 2023-10-25 08:03 | Hospitalist Progress Note ---
Date of Service October 25, 2023 Assessment & Plan (1) Acute and chronic respiratory failure: (2) Acute exacerbation of chronic obstructive pulmonary disease: (3) DARI (acute kidney injury): (4) Anemia: Plan (1) Acute and chronic respiratory failure: (2) Acute exacerbation of chronic obstructive pulmonary disease: (3) DARI (acute kidney injury): (4) Fluid overload: (5) VIJAY (obstructive sleep apnea): (6) History of pulmonary embolism: (7) Hypothyroidism: (8) Atrial fibrillation: (9) Diabetes: (10) KATHLEEN (generalized anxiety disorder): (11) Hypertension: (12) GERD (gastroesophageal reflux disease): Plan 1) Acute on chronic respiratory failure with hypoxia- Primarily COPD exacerbation, but component of CHF and fluid overload as well Nasal cannula oxygen, titrate to keep pulse ox around 88-92% VBG: pH 7.34, pCO2 67 mm Hg 2) COPD exacerbation Received Solu-Medrol 60 mg IV in the ED Continue Solu-Medrol 20 mg IV every 8 hours, follow the blood sugar levels closely Guaifenesin extended release 1200 mg, PO, BID Azithromycin 500 mg IV daily Duonebs every 4 hours while awake and every 2 hours when necessary. Continue formoterol, Pulmicort Respules, Roflumilast, Spiriva and montelukast 3) Atrial fibrillation/CHF/hypertension- Continue Xarelto, mag oxide, metoprolol succinate, spironolactone 4) Diabetes mellitus- Continue glargine 15 units SubQ every morning Hold metformin Placed on Accu-Cheks with NovoLog SSI 5) Acute kidney injury- Creatinine 1.86 on admission, with base 0.9 Patient did receive furosemide 20 mg IV from the ED, discontinued Placed on NSS at 60 mL/h x 1 L Recheck laboratories in a.m. 6) Chronic anemia -Hgb, 9.7 -trend CBC 7) GERD - continue pantoprazole, 40 mg, PO, BID Supervising Physician Co-Signing Physician Notes Attending Physician Supervision Note: I independently interviewed and examined the patient and verified the pichardo history and physical, reviewed labs and image studies and agree with findings and care plan noted above. breathing slightly better since coming in but still wheezing and with shortness of breath. vitals noted nad heent nc at mmm breathing labored + accessory muscles good effort skin no rashes no pallor or icterus neuro no focal deficits. wheeze and decreased air entry bilaterally Acute on chronic hypoxic/hypercapnic resp failure - d/t copd exac. improving. maintain O2 88-90. COPD exacerbation - PFT with severe obstruction - bronchodialator responsive. -IV steroids, azithromycin, nebs; home meds -has been prescribed roxanol for air hunger by palliative care team. consider adding once respiratory status improves. -would benefit from regular outpatient visit with palliative care team. Hypercapnia with mild resp acidosis - copd mx and prn bipap use as tolerated. HFpEF - no concern of hypervolemia. spironolactone A fib - RC. Xarelto, metoprolol DARI - NSS at 60ml/hr. check labs in am . Subjective Chief Complaint: The patient presents to the emergency department with complaint of shortness of breath, dyspnea on exertion and generalized fatigue over the past few weeks Primary Care Provider: Dayna Bullard The patient is a 78-year-old female with a past medical history including chronic respiratory failure, COPD, atrial fibrillation with RVR, panic attack, VIJAY, atrial fibrillation, pulmonary embolism, hypothyroidism, GERD, KATHLEEN, septic thrombophlebitis and syncope. She has chronic shortness of breath, however, symptoms have worsened slightly over the past few weeks, to the point that she could not understand and came to the ED this evening. From the ED patient seen the following: Hour-long DuoNeb, Solu-Medrol 60 mg IV and Lasix 20 mg IV. She reports her symptoms have improved somewhat with the initial treatments. I saw the patient this morning and her dyspnea, wheezing, and generalized fatigue/weakness have improved. Patient was on 4 L O2 NC, with an SpO2 of 98 when I saw her. Most of patient's clinical symptoms seem either more [id number] or subacute in nature than acute, as she notes experiencing them for several months but decided to come in as they continue to get worse. Patient did not endorse any fevers or chills. Review of Systems Constitutional: + body aches (at baseline) and + fatigue ; no fever and no chills Ear, Nose, Mouth, Throat: + dizziness (intermittently dizzy), + na antonio discharge and + post nasal drip; no nasal congestion Respiratory: + cough (has one at baseline, getting wo rse this past yr), + chest congestion, + dyspnea and + sputum production (can't cough it up, feels it in her throat); no pain on inspiration pt quit smoking 11 yrs ago Cardiovascular: + chest pain (maybe more chest tightness ) and + calf pain (muscle spasms); no palpitations Gastrointestinal: + nausea, + vomiting (intermittently vom its, last on Tues) and + diarrhea/loose stools (intermittent, last time yesterday morning (2 yest); wears pullups); no abdominal pain Neurologic: + numbness (numb 2nd toe, l. foot) Physical Exam Constitutional: well nourished, + morbidly obese and cooperative Respiratory: + respiratory distress (better on 4 L O2 NC), + cough and + pursed lip breathing; + not able to speak in complete sentence Cardiovascular: RRR, no murmur, no edema Genitourinary: + CVA tenderness (right-sided, for past yr, thinks she's heard stones splash in toilet) Results & Data Results & Data Vital Signs (Past 12 Hours) Vital Signs Temp Pulse Pulse Resp BP BP Pulse Ox 10/25/23 06:55 108 H 22 118/87 97 10/25/23 06:40 121 H 19 97 10/25/23 06:30 106 H 19 98 10/25/23 06:30 106 H 21 122/78 98 10/25/23 06:27 110 H 10/25/23 06:20 106 H 21 98 10/25/23 06:18 112 H 22 99 10/25/23 06:18 112 H 22 133/76 99 10/25/23 06:13 104 H 15 100 10/25/23 06:00 104 H 19 97 10/25/23 05:50 112 H 19 97 10/25/23 05:40 104 H 18 96 10/25/23 05:30 114 H 22 96 10/25/23 05:20 111 H 18 96 10/25/23 05:10 80 22 95 10/25/23 05:00 92 H 21 93 10/25/23 04:50 79 20 100 10/25/23 04:40 77 20 100 10/25/23 04:30 73 22 100 10/25/23 04:29 73 22 142/60 H 99 10/25/23 04:29 73 22 99 10/25/23 04:20 76 25 H 100 10/25/23 04:10 69 21 100 10/25/23 04:00 66 20 100 10/25/23 03:50 74 20 93 10/25/23 03:40 67 23 95 10/25/23 03:30 66 17 93 10/25/23 03:20 66 17 95 10/25/23 03:10 66 20 92 10/25/23 03:00 66 18 93 10/25/23 02:57 10/25/23 02:57 36.7 C 65 18 133/81 93 10/25/23 02:55 64 10/25/23 02:54 68 26 H 95 O2 Del Method O2 Flow Rate 10/25/23 06:55 Nasal Cannula 3 10/25/23 06:40 10/25/23 06:30 10/25/23 06:30 10/25/23 06:27 10/25/23 06:20 10/25/23 06:18 10/25/23 06:18 10/25/23 06:13 10/25/23 06:00 10/25/23 05:50 10/25/23 05:40 10/25/23 05:30 10/25/23 05:20 10/25/23 05:10 10/25/23 05:00 10/25/23 04:50 10/25/23 04:40 10/25/23 04:30 10/25/23 04:29 10/25/23 04:29 10/25/23 04:20 10/25/23 04:10 10/25/23 04:00 10/25/23 03:50 10/25/23 03:40 10/25/23 03:30 10/25/23 03:20 10/25/23 03:10 10/25/23 03:00 10/25/23 02:57 Nasal Cannula 3 10/25/23 02:57 Nasal Cannula 3 10/25/23 02:55 10/25/23 02:54 Resident Activity Tracking Resident Involvement: Resident Care Provided Care Provided: Adult Hospital Medicine (1) Acute and chronic respiratory failure Respiratory failure complication: hypoxia and hypercapnia Qualified Code(s): J96.21 - Acute and chronic respiratory failure with hypoxia; J96.22 - Acute and chronic respiratory failure with hypercapnia (4) Anemia Anemia type: unspecified type Qualified Code(s): D64.9 - Anemia, unspecified
--- NOTE | 2023-10-25 08:40 | XRay Report ---
XR chest 1V portable CLINICAL HISTORY: Dyspnea. COMPARISON STUDY: Chest radiograph June 27, 2023. Chest CT July 23, 2022. FINDINGS: There is underlying emphysema. Lung volumes are normal. Lungs are clear. There is no pneumo thorax or pleural effusion. Enlargement of the cardiac silhouette is unchanged. Mediastinal contours are normal. There is no evidence for pulmonary edema. IMPRESSION: No acute cardiopulmonary findings. Emphysema. ACT 112: Negative or not required by law. Electronically signed by: Rick Canchola M.D. 10/25/2023 8:39 AM
[2023-10-25] MEDS ORDERED: GLUCOSE 40% GEL 15 GM TUBE PO PRN (09:59)
[2023-10-25] MEDS ORDERED: GLUCOSE 10 TAB/TUBE PO PRN (09:59)
[2023-10-25] MEDS ORDERED: ONDANSETRON INJ 2 MG/ML 2 ML VIAL IV PRN (09:59)
[2023-10-25] MEDS ORDERED: ACETAMINOPHEN PO PRN (09:59)
[2023-10-25] MEDS ORDERED: DEXTROSE 50% 50 ML SYRINGE IV PRN (09:59)
[2023-10-25] MEDS ORDERED: CARBOHYDRATES FOR HYPOGLYCEMIA PO PRN (09:59)
[2023-10-25] MEDS ORDERED: GLUCAGON FOR INJ 1 MG VIAL SQ PRN (09:59)
[2023-10-25] MEDS: ALBUT/IPRATROP 3MG/0.5MG NEB 3 ML VIAL NEB SCH (10:00)
[2023-10-25] MEDS: INSULIN ASPART PER UNIT CHARGE SC SCH (10:42)
[2023-10-25] MEDS: BUDESONIDE 0.5 MG/2 ML VIAL (PULMICORT) INH SCH (10:46)
[2023-10-25] MEDS: FORMOTEROL 20 MCG/2 ML VIAL INH SCH (10:47)
[2023-10-25] MEDS: ESCITALOPRAM OXALATE 10 MG TAB PO SCH (11:22)
[2023-10-25] MEDS: guaiFENesin 600 MG TABCR PO SCH (11:22)
[2023-10-25] MEDS: LEVOTHYROXINE SODIUM 25 MCG TABLET PO SCH (11:23)
[2023-10-25] MEDS: METOPROLOL SUCC 25MG EXT REL TAB PO SCH (11:23)
[2023-10-25] MEDS: IRON POLYSACCHARIDE COMPLEX 150 MG CAPSULE PO SCH (11:23)
[2023-10-25] MEDS: ROFLUMILAST 500 MCG TAB PO SCH (11:24)
[2023-10-25] MEDS: MAGNESIUM OXIDE 400 MG TAB PO SCH (11:25)
[2023-10-25] MEDS: CYANOCOBALAMIN (B-12) 500 MCG TABLET PO SCH (11:25)
[2023-10-25] MEDS: SPIRONOLACTONE 100 MG TAB PO SCH (11:25)
[2023-10-25] MEDS: PANTOprazole 40 MG TAB PO SCH (11:26)
[2023-10-25] MEDS: AZITHROMYCIN 500 MG in DEXTROSE 5% 250 ML IV SCH (11:26)
[2023-10-25] MEDS: methylPREDNISolone 20 MG in SYRINGE 0 ML IV SCH (11:26)
[2023-10-25] MEDS: LANTUS PER UNIT CHARGE SC SCH (11:27)
[2023-10-25] MEDS: FAMOTIDINE 10 MG TABLET PO SCH (11:27)
[2023-10-25] MEDS: SODIUM CHLORIDE 0.9% 1,000 ML IV SCH (11:29)
[2023-10-25] MEDS: RIVAROXABAN 15 MG TAB PO SCH (13:37)
[2023-10-25] MEDS: UMECLIDINIUM BROMIDE 62.5MCG/BLISTER 7 PUFFS/INHALER INH SCH (14:30)
[2023-10-25] MEDS: ACETAMINOPHEN 325 MG TAB PO PRN (14:36)
[2023-10-25 16:04] LABS: Appearance Urine Clear (Clear); Bilirubin Urine Negative (Negative); Blood Urine Negative (Negative); Color Urine Yellow; Glucose Urine UA 3+ (Negative); Ketones Urine Trace (Negative); Leukocyte Esterase Urine Negative (Negative); Nitrite Urine Negative (Negative); Protein Urine Negative (Negative); Specific Gravity Urine 1.025 (1.000-1.030); Urobilinogen Urine Negative (Negative)
[2023-10-25] MEDS: oxyCODONE HCL IR 5 MG TAB (IMMEDIATE RELEASE) PO PRN (18:55)
[2023-10-25] MEDS: MONTELUKAST SODIUM 10 MG TABLET PO SCH (20:41)
[2023-10-25] MEDS: MIRTAZAPINE TAB 15 MG TAB PO SCH (20:45)
[2023-10-25] MEDS: QUEtiapine FUMARATE 200 MG TAB PO SCH (20:45)
[2023-10-25] MEDS: BENZONATATE 100 MG CAPSULE PO PRN (20:48)
[2023-10-26] MEDS: ALBUT/IPRATROP 3MG/0.5MG NEB 3 ML VIAL NEB STA (00:10)
--- NOTE | 2023-10-26 06:50 | Hospitalist Progress Note ---
Date of Service October 26, 2023 Assessment & Plan (1) Acute and chronic respiratory failure: (2) Acute exacerbation of chronic obstructive pulmonary disease: (3) DARI (acute kidney injury): (4) Anemia: Plan (1) Acute and chronic respiratory failure: (2) Acute exacerbation of chronic obstructive pulmonary disease: (3) DARI (acute kidney injury): (4) Fluid overload: (5) VIJAY (obstructive sleep apnea): (6) History of pulmonary embolism: (7) Hypothyroidism: (8) Atrial fibrillation: (9) Diabetes: (10) KATHLEEN (generalized anxiety disorder): (11) Hypertension: (12) GERD (gastroesophageal reflux disease): Plan 1) Acute on chronic respiratory failure with hypoxia- Primarily COPD exacerbation, but component of CHF and fluid overload as well Nasal cannula oxygen, titrate to keep pulse ox around 88-92% VBG: pH 7.34, pCO2 67 mm Hg 2) COPD exacerbation Received Solu-Medrol 60 mg IV in the ED Continue Solu-Medrol 20 mg IV every 8 hours, follow the blood sugar levels closely Guaifenesin extended release 1200 mg, PO, BID Azithromycin 500 mg IV daily Duonebs every 4 hours while awake. Continue formoterol, Pulmicort Respules, Roflumilast, Spiriva and montelukast 3) Atrial fibrillation/CHF/hypertension- Continue Xarelto, mag oxide, metoprolol succinate, spironolactone 4) Diabetes mellitus- Continue glargine 15 units SubQ every morning Hold metformin Placed on Accu-Cheks with NovoLog SSI 5) Acute kidney injury- Creatinine 1.04 <- 1.86 (on admission), with base 0.9, resolving Patient did receive furosemide 20 mg IV from the ED, discontinued Placed on NSS at 60 mL/h x 1 L Recheck laboratories in a.m. 6) Chronic anemia -Hgb, 9.7 -trend CBC 7) GERD - continue pantoprazole, 40 mg, PO, BID Admission and Anticipated Discharge Date Admission Date: October 25, 2023 Supervising Physician Co-Signing Physician Notes I personally examined the patient and verified all pichardo points of history and exam, discussed case, and agree with decision making with Dr Mendes feeling better than when she came in but still fairly bad. Notes a lot of she is feeling like this at home she will generally use a nebulizer about every 2 hours. Vitals noted, in general she is awake and alert pleasant no distress. HEENT normocephalic atraumatic mucous membranes moist. Breathing unlabored but very diminished no accessory muscle use good effort. Skin without rashes pallor or icterus. vitals noted nad heent nc at mmm breathing labored + accessory muscles good effort skin no rashes no pallor or icterus neuro no focal deficits. wheeze and decreased air entry bilaterally Acute on chronic hypoxic/hypercapnic resp failure - d/t copd exac. improving. maintain O2 88-90. COPD exacerbation - PFT with severe obstruction - bronchodialator responsive. -IV steroids, azithromycin, nebs (notes she takes q2hr when sick at home - lung disease is severe enough this might be required for symptom control - dr mendes tightened to q4 scheduled/q2 prn but looks like this might need to be tightened more on review of administrations and considering pt's severity of illness and symptoms); home meds -has been prescribed roxanol for air hunger by palliative care team. consider adding once respiratory status improves. -would benefit from regular outpatient visit with palliative care team. Hypercapnia with mild resp acidosis - copd mx and prn bipap use as tolerated. HFpEF - no concern of hypervolemia. spironolactone A fib - RC. Xarelto, metoprolol DARI - resolved w fluids . Subjective Chief Complaint: The patient presents to the emergency department with complaint of shortness of breath, dyspnea on exertion and generalized fatigue over the past few weeks Primary Care Provider: Dayna Aleah The patient is a 78-year-old female with a past medical history including chronic respiratory failure, COPD, atrial fibrillation with RVR, panic attack, VIJAY, atrial fibrillation, pulmonary embolism, hypothyroidism, GERD, KATHLEEN, septic thrombophlebitis and syncope. She has chronic shortness of breath, however, symptoms have worsened slightly over the past few weeks, to the point that she could not understand and came to the ED this evening. From the ED patient seen the following: Hour-long DuoNeb, Solu-Medrol 60 mg IV and Lasix 20 mg IV. She reports her symptoms have improved somewhat with the initial treatments. I saw the patient this morning and her dyspnea, wheezing, and generalized fatigue/weakness have improved. Patient was on 4 L O2 NC, with an SpO2 of 98 when I saw her. Most of patient's clinical symptoms seem either more [id number] or subacute in nature than acute, as she notes experiencing them for several months but decided to come in as they continue to get worse. Patient did not endorse any fevers or chills. Review of Systems Constitutional: + body aches (at baseline) and + fatigue ; no fever and no chills Ear, Nose, Mouth, Throat: + dizziness (intermittently dizzy), + na antonio dischar ge and + post nasal drip; no nasal congestion Respiratory: + cough (has one at baseline, getting wo rse this past yr), + chest congestion, + dyspnea and + sputum production (can't cough it up, feels it in her throat); no pain on inspiration pt quit smoking 11 yrs ago Cardiovascular: + chest pain (maybe more chest tightness ) and + calf pain (muscle spasms); no palpitations Gastrointestinal: + nausea, + vomiting (intermittently vom its, last on Tues) and + diarrhea/loose stools (intermittent, last time yesterday morning (2 yest); wears pullups); no abdominal pain Neurologic: + numbness (numb 2nd toe, l. foot) Physical Exam Constitutional: well nourished, + morbidly obese and cooperative Respiratory: + respiratory distress (better on 4 L O2 NC), + cough and + pursed lip breathing; + not able to speak in complete sentence Cardiovascular: RRR, no murmur, no edema Genitourinary: + CVA tenderness (right-sided, for past yr, thinks she's heard stones splash in toilet) Results & Data Results & Data Vital Signs (Past 12 Hours) Vital Signs Pulse Pulse Resp BP Pulse Ox O2 Del Method O2 Flow Rate 10/26/23 06:20 73 22 95 Nasal Cannula 5 10/26/23 06:00 60 20 167/46 H 95 Nasal Cannula 3 10/26/23 04:00 66 16 141/57 H 98 Nasal Cannula 3 10/26/23 02:54 62 22 138/73 98 Nasal Cannula 3 10/26/23 02:00 Nasal Cannula 3 10/26/23 00:17 61 10/25/23 19:49 68 17 110/77 95 Nasal Cannula 3 Resident Activity Tracking Resident Involvement: Resident Care Provided Care Provided: Adult Hospital Medicine (1) Acute and chronic respiratory failure Respiratory failure complication: hypoxia and hypercapnia Qualified Code(s): J96.21 - Acute and chronic respiratory failure with hypoxia; J96.22 - Acute and chronic respiratory failure with hypercapnia (4) Anemia Anemia type: unspecified type Qualified Code(s): D64.9 - Anemia, unspecified
[2023-10-26 07:44] LABS: Estimated Average Glucose 169 mg/dl; Hemoglobin A1C 7.5 % (4.5-5.6)
[2023-10-26 08:11] LABS: Hemoglobin 9.6 g/dl (12.0-16.0); Mean Corpuscular Hemoglobin 24.3 pg (25.0-34.0); Mean Corpuscular Hgb Conc 29.1 g/dL (32.0-36.0); Mean Corpuscular Volume 83.5 fL (80.0-100.0); Mean Platelet Volume 9.3 fL (9.4-12.4); Platelet Count 229 K/uL (130-400); RDW Coefficient of Variation 18.5 % (11.5-14.5); Red Blood Count 3.95 M/uL (4.20-5.40); White Blood Count 11.15 K/ul (4.8-10.8)
[2023-10-26] MEDS: CHOLECALCIFEROL 10 MCG (400 UNITS) TAB PO SCH (09:03)
[2023-10-26 09:56] LABS: BUN Creatinine Ratio 21.2 (10-20); Calcium 8.7 mg/dl (8.6-10.3); Creatinine Clr Calc Pharmacy 49.3 ml/min; Est GFR (African American) 59.2 ml/min; Est GFR (Non-African American) 51.1 ml/min; Potassium 4.8 mmol/L (3.5-5.1)
[2023-10-26] MEDS: ALBUT/IPRATROP 3MG/0.5MG NEB 3 ML VIAL NEB SCH ×2 (14:33→20:13)
[2023-10-26] MEDS: ALBUT/IPRATROP 3MG/0.5MG NEB 3 ML VIAL NEB PRN (17:43)
--- NOTE | 2023-10-26 19:11 | Billing Data ---
Date of Service October 26, 2023 Coding Level of Care Code 41448 SUB INP/OBS CARE MIN
[2023-10-26] MEDS: COUGH DROP (SUGAR FREE) LOZ 24 LOZ/1 BOX BUCCAL STA (21:49)
[2023-10-27] MEDS: ALBUT/IPRATROP 3MG/0.5MG NEB 3 ML VIAL NEB ONE (09:07)
[2023-10-27] MEDS: ALBUT/IPRATROP 3MG/0.5MG NEB 3 ML VIAL NEB SCH (09:07)
--- NOTE | 2023-10-27 12:38 | Discharge Summary ---
Date of Service October 27, 2023 Admission HPI Per Admitting Provider The patient is a 78-year-old female with a past medical history including chronic respiratory failure, COPD, atrial fibrillation with RVR, panic attack, VIJAY, atrial fibrillation, pulmonary embolism, hypothyroidism, GERD, KATHLEEN, septic thrombophlebitis and syncope. She has chronic shortness of breath, however, symptoms have worsened slightly over the past few weeks, to the point that she could not understand and came to the ED this evening. From the ED patient seen the following: Hour-long DuoNeb, Solu-Medrol 60 mg IV and Lasix 20 mg IV. She reports her symptoms have improved somewhat with the initial treatments Admission Exam Per Admitting Provider Physical Exam: The patient is awake, alert and oriented 3, well developed and well nourished, normocephalic and atraumatic, lying in bed and in no acute distress. HEENT--PERRL, EOMI, mucous membranes and oropharynx dry. Neck--supple. No JVD. No bruits. Thyroid normal, trachea midline, no adenopathy. Heart--normal S1 and S2. No murmurs, rubs or gallops. Lungs--inspiratory and expiratory wheezes bilaterally Abdomen--normal bowel sounds and soft. Nontender. Nondistended. Obese Extremities--no cyanosis or clubbing. Trace pretibial pitting edema. Dermatologic--normal skin turgor, normal color, no abnormal lymph nodes, no rash. Neurologic--cranial nerves II through XII grossly intact. Rheumatologic--normal range of motion. Psychiatric--normal affect. Principal Diagnosis COPD exacerbation, respiratory distress Discharge Exam Constitutional well nourished, + morbidly obese and cooperative Respiratory + respiratory distress (better on 4 L O2 NC), + cough and + pursed lip breathing; + not able to speak in complete sentence Cardiovascular RRR, no murmur, no edema Extremities: no calf tenderness and no pedal edema Gastrointestinal (Abdomen) normal bowel sounds, soft, nontender, no hepatosplenomegaly Psychiatric A+Ox3, euthymic affect Genitourinary + CVA tenderness (right-sided, for past yr, thinks she's heard stones splash in toilet) Discharge Data Allergies Allergy/AdvReac Type Severity Reaction Status Date / Time rabies vaccine, duck-embryo Allergy Severe HIVES Verified 06/09/22 12:02 ragweed pollen Allergy Unknown UNKNOWN Verified 06/09/22 12:02 tomato Allergy Unknown HIVES Verified 06/09/22 12:02 Consultations 10/25/23 05:29 ED Decision to Admit Stat Hospital Course (1) Acute and chronic respiratory failure: (2) Acute exacerbation of chronic obstructive pulmonary disease: (3) DARI (acute kidney injury): (4) Anemia: Plan (1) Acute and chronic respiratory failure: (2) Acute exacerbation of chronic obstructive pulmonary disease: (3) DARI (acute kidney injury): (4) Fluid overload: (5) VIJAY (obstructive sleep apnea): (6) History of pulmonary embolism: (7) Hypothyroidism: (8) Atrial fibrillation: (9) Diabetes: (10) KATHLEEN (generalized anxiety disorder): (11) Hypertension: (12) GERD (gastroesophageal reflux disease): Plan 1) Acute on chronic respiratory failure with hypoxia- Primarily COPD exacerbation, but component of CHF and fluid overload as well Nasal cannula oxygen, titrate to keep pulse ox around 88-92% VBG: pH 7.34, pCO2 67 mm Hg 2) COPD exacerbation Received Solu-Medrol 60 mg IV in the ED, continued Solu-Medrol 20 mg IV every 8 hours, follow the blood sugar levels closely Guaifenesin extended release 1200 mg, PO, BID Azithromycin 500 mg IV daily during hospital stay Duonebs every 4 hours while awake. Continue arformoterol, albuterol sulfate inhaler and nebulizer, budesonide inhaler, fluticasone inhaler, ipratropium-albuterol, Roflumilast, and montelukast Prednisone taper, outpt: 60 mg/day x 3 days, 50 mg/day x 3 days, 40 mg/day x 3days, 30 mg/day x 3days, 20 mg/day x 3days, 10 mg/day x 3days 3) Atrial fibrillation/CHF/hypertension- Continue Xarelto, metoprolol succinate, spironolactone as outpatient 4) Diabetes mellitus- Continued glargine 15 units SubQ every morning, Held metformin during hospital stay Placed on Accu-Cheks with NovoLog SSI continue home diabetes meds regimen as outpt 5) Acute kidney injury- Creatinine 1.04 <- 1.86 (on admission), with base 0.9, resolving Patient received furosemide 20 mg IV from the ED, discontinued Placed on NSS at 60 mL/h x 1 L 6) Chronic anemia -last Hgb, 9.6 -trend CBC 7) GERD - continue pantoprazole, 40 mg, PO, BID as outpt Discharge Plan Discharge Items Patient Disposition: Home - Self-Care Reason For Visit: ACUTE ON CHRONIC RESP FAILURE Discharge Diagnosis: COPD exacerbation Activity: Resume your previous activity Non-emergency contact: Primary Care Provider and Inspector Call non-emergency contact if: your symptoms worsen and you have a fever Follow-up/Referrals: Dayna Bullard PA-C [Primary Care Provider] - Diet: Carb Consistent or DM2 Addtl Attending Provider Instructions: You were admitted to the hospital for acute exacerbation of COPD. You were treated with methylprednisolone, albuterol nebulizers, montelukast, Roflumilast, umeclidinium bromide, azithromycin among other medications that you use at home. A discharge summary will be sent to your primary care physician to ensure continuity of care. Please bring this discharge summary with you to your next office appointment so that your provider can review it at that time. Follow-up appointments: We have requested a follow-up appointment with your primary care physician within one week of discharge. Please call their office if you do not hear from them. Keep all your follow-up appointments as already scheduled. If you cannot make an appointment, notify your provider. Medications: Your medication list has been reviewed and reconciled upon discharge to ensure accuracy and continuity of care. An updated list of all your medications is included with your hospital discharge paperwork. Please review this list closel y, and make note of any changes. We sent a new medication called prednisone to your pharmacy. Take prednisone as a taper, with 60 mg for 3 days, 50 mg for 3 days, 40 mg for 3 days, 30 mg for 3 days, 20 mg for 3 days, 10 mg for 3 days for a total of 18 days. Take your medications as instructed; do not skip a dose of your medicines. Make sure all of your doctors know every medicine you are taking (including mash-phm-lzttpnr medicines, vitamins, and supplements). Call your primary care provider before taking any new medicines (including dzkx-rux-uwyjdpf medicines, vitamins, and supplements), because some of these may interact with your current medications, or may make your symptoms worse. Tell your primary care provider if you cannot afford your medications. CONTACT YOUR PRIMARY CARE PROVIDER if you experience any of the following: shortness of breath, chest pain, fever increased weakness or fatigue Difficulty following your treatment plan, or difficulty taking medications CALL 911 OR GO TO THE EMERGENCY DEPARTMENT if you experience any of the following: Sudden, severe abdominal pain or nausea/vomiting Severe chest pain, or chest pain that radiates (moves) to your jaw or arm Sudden, severe shortness of breath or difficulty breathing Thank you for allowing us to participate in your care Pending Studies at Discharge: No Stand-Alone Forms: [facility] Roomster, Smoking Cessation Medications and DC Order Prescriptions: New prednisone 10 mg tablet 10 mg PO DIRECTED Qty: 63 0RF Rx Instructions: see taper instructions 60 mg/day for 3 days, 50 mg/day for 3 days, 40 mg/day for 3 days, 30 mg/day for 3 days, 20 mg/day for 3 days, 10 mg/day for 3 days Continued (DME) Oxygen Home Liters Per Minute See Rx Instructions .Route Rx Instructions: As directed- 2lpm all the time spironolactone 50 mg tablet 100 mg PO DAILY Tylenol Extra Strength 500 mg powder in packet 0 mg PO Q4H PRN (Reason: Pain) Rx Instructions: Unable to verify OTC medications with patient/pharmacy at this date/time. Original Directions: 500mg by mouth every 4 hours as needed montelukast 10 mg tablet 10 mg PO HS Qty: 90 2RF budesonide 0.5 mg/2 mL suspension for nebulization 0.5 mg inhalation BID Qty: 180 4RF ipratropium-albuterol 0.5 mg-3 mg(2.5 mg base)/3 mL solution for nebulization 3 ml inhalation Q8H PRN (Reason: shortness of breath or wheezing) Qty: 540 2RF revefenacin 175 mcg/3 mL solution for nebulization 175 mcg inhalation DAILY Qty: 90 3RF azithromycin 250 mg tablet 250 mg PO 3XWK Qty: 36 5RF Rx Instructions: Thursday, Thursday, Thursday arformoterol [Brovana] 15 mcg/2 mL solution for nebulization 2 ml inhalation BID Qty: 360 4RF insulin lispro [Humalog KwikPen Insulin] 100 unit/mL insulin pen 12 unit SUBCUT TIDM quetiapine 200 mg Tablet 200 mg PO HS levothyroxine 25 mcg Tablet 25 mcg PO QAM famotidine 20 mg Tablet 20 mg PO QAM pantoprazole 40 mg Tablet,Delayed Release (Dr/Ec) 40 mg PO BID mirtazapine 30 mg tablet 30 mg PO HS escitalopram oxalate 10 mg Tablet 15 mg PO QAM Xarelto 20 mg Tablet 20 mg PO QAM metoprolol succinate 25 mg Capsule,Sprinkle,Er 24hr 25 mg PO BID magnesium oxide 400 mg magnesium Tablet 400 mg PO BID polysaccharide iron complex [Poly-Iron] 150 mg iron capsule 150 mg PO BID fluticasone propionate 50 mcg/actuation spray,suspension 0 mcg INTRANASAL DAILY Rx Instructions: Unable to verify OTC medications with patient/pharmacy at this date/time. cholecalciferol (vitamin D3) 10 mcg (400 unit) tablet,chewable 10 mcg PO DAILY buspirone 5 mg Tablet 5 mg PO TID PRN (Reason: anxiety) Qty: 60 1RF metformin 500 mg Tablet Extended Release 24 Hr 500 mg PO BID Qty: 60 0RF Rx Instructions: take with breakfast and with your evening dinner meal albuterol sulfate 2.5 mg /3 mL (0.083 %) solution for nebulization 2.5 mg continuous nebulization Q4H cyanocobalamin (vitamin B-12) [Vitamin B-12] 1,000 mcg Tablet 0 mcg PO DAILY Rx Instructions: Unable to verify OTC medications with patient/pharmacy at this date/time. theophylline 450 mg tablet extended release 12 hr 450 mg PO DAILY albuterol sulfate 90 mcg/actuation HFA aerosol inhaler 2 puff INHALATION BID PRN (Reason: Wheezing/SOB) insulin glargine [Lantus Solostar U-100 Insulin] 100 unit/mL (3 mL) insulin pen 15 unit SUBCUT HS roflumilast [Daliresp] 500 mcg tablet 500 mcg PO QAM guaifenesin [Mucinex] 1,200 mg Tablet Extended Release 12hr 0 mg PO BID Rx Instructions: Unable to verify OTC medications with patient/pharmacy at this date/time. Krames/Other Patient Handouts: Managing Type 2 Diabetes Admission Data Admit Date/Time: 10/25/23 06:59 Attending Provider: Jose Osorio Admit Provider: David Norris Primary Care Provider: Dayna Bullard Other Providers: David Norris Supervising Physician Co-Signing Physician Notes I personally examined the patient and verified all pichardo points of history and exam, discussed case, and agree with decision making with Dr Mendes feeling better than when she came in but still fairly bad. Notes a lot of she is feeling like this at home she will generally use a nebulizer about every 2 hours. Vitals noted, in general she is awake and alert pleasant no distress. HEENT normocephalic atraumatic mucous membranes moist. Breathing unlabored but very diminished no accessory muscle use good effort. Skin without rashes pallor or icterus. vitals noted nad heent nc at mmm breathing labored + accessory muscles good effort skin no rashes no pallor or icterus neuro no focal deficits. wheeze and decreased air entry bilaterally Acute on chronic hypoxic/hypercapnic resp failure - d/t copd exac. improving. maintain O2 88-90. COPD exacerbation - PFT with severe obstruction - bronchodialator responsive. -IV steroids, azithromycin, nebs (notes she takes q2hr when sick at home - lung disease is severe enough this might be required for symptom control - dr mendes tightened to q4 scheduled/q2 prn but looks like this might need to be tightened more on review of administrations and considering pt's severity of illness and symptoms); home meds -has been prescribed roxanol for air hunger by palliative care team. consider adding once respiratory status improves. -would benefit from regular outpatient visit with palliative care team. Hypercapnia with mild resp acidosis - copd mx and prn bipap use as tolerated. HFpEF - no concern of hypervolemia. spironolactone A fib - RC. Xarelto, metoprolol DARI - resolved w fluids .
--- NOTE | 2023-10-27 19:33 | Communication Note ---
Date of Service: October 27, 2023 I personally examined the patient and verified all pichardo points of history and exam, discussed case, and agree with decision making with Dr Mendes Initially in discussion with patient and resident physician it seemed that the plan would be to discharge patient home today. Later whenever her friends (neighbors/surrogate family) came to get her, they expressed concerns about her immediately being readmitted. She was then worried about going home. Resident physician and myself revisited, discussed the situation extensively. I discussed with her surrogate family quite bluntly that unfortunately with the severity of her lung disease, it really does not matter how well we "tune her up" the unfortunate reality is that she really could end up with an exacerbation immediately after hospital discharge whether it is today, in a few days, or in a month. Fortunately this then led to a good segue into more direct end-of-life type discussions. Patient has worked with hospice a little bit in the pastshe seems to be loosely aware of her severity of lung disease but severely afraid of dying. Also noted that hospice told her if she was working with hospice she would not be allowed to call an ambulance if she had severe respiratory distress, and this scared her. I tried to discuss myths, misconceptions, and autonomy in that context. Vitals noted, in general she appears to be very anxious, breathing is unlabored, no accessory muscle use does have mild intermittent conversational dyspneaa little bit hard to tease apart whether it is from her lungs, anxiety, or both. Neuro shows cranial nerves II through XII be grossly intact gross motor and sensory intact. COPD exacerbationsuperimposed on severe underlying COPD. Discussed with patient and surrogate family. At least tried to advance the understanding of the severity of her lung disease, and that staying out of the hospital is unfortunately likely an impossibility. Discussed that it is hard to put a timeline on her prognosis, especially given that her pulmonary function test from a year ago could be construed as being surprising that she is still with us now. Discussed considerations for hospice versus other goals of care. Tried to offer empathy and support, while also trying to provide an outline of what may and may not be possible. Continue current care for now. anticoagulated
--- NOTE | 2023-10-27 19:33 | Billing Data ---
Date of Service October 27, 2023 Coding Level of Care Code 37111 SUB INP/OBS CARE MIN
[2023-10-28 07:12] LABS: Est GFR (African American) 63.6 ml/min; Est GFR (Non-African American) 54.9 ml/min
[2023-10-28] MEDS: COUGH DROP (SUGAR FREE) LOZ 24 LOZ/1 BOX BUCCAL STA (13:28)
--- NOTE | 2023-10-28 16:20 | Hospitalist Progress Note ---
Date of Service October 28, 2023 Assessment & Plan (1) Acute and chronic respiratory failure: (2) Acute exacerbation of chronic obstructive pulmonary disease: (3) DARI (acute kidney injury): (4) Anemia: Plan (1) Acute and chronic respiratory failure: (2) Acute exacerbation of chronic obstructive pulmonary disease: (3) DARI (acute kidney injury): (4) Fluid overload: (5) VIJAY (obstructive sleep apnea): (6) History of pulmonary embolism: (7) Hypothyroidism: (8) Atrial fibrillation: (9) Diabetes: (10) KATHLEEN (generalized anxiety disorder): (11) Hypertension: (12) GERD (gastroesophageal reflux disease): Plan 1) Acute on chronic respiratory failure with hypoxia- Primarily COPD exacerbation, but component of CHF and fluid overload as well Overall appears to be more or less at baseline, but very afraid to go home. 2) COPD exacerbation Continue current caresteroids, triple therapy with inhalers, nebulizers, azithromycin. Can probably start to wean steroids by tomorrow 3) Atrial fibrillation/CHF/hypertension- Continue Xarelto, metoprolol succinate, spironolactone as outpatient 4) Diabetes mellitus- continue basal bolus insulin regimentighten insulins some (tighten carb ratio to 1: 6, increased basal to 20 units) 5) Acute kidney injury- Creatinine 1.04 <- 1.86 (on admission), with base 0.9, resolving Patient received furosemide 20 mg IV from the ED, discontinued Placed on NSS at 60 mL/h x 1 L 6) Chronic anemia -last Hgb, 9.6 -trend CBC 7) GERD - continue pantoprazole, 40 mg, PO, BID as outpt 8) goals of care discussion: She is aware that she is very ill, but also is aware that her actual prognosis is fairly open ended. She does feel better coming to the hospital and getting "tuned up" and would like to continue be able to do this. She does simultaneously relates that her world is getting very small and that she has a lot less she is able to do, but seems to relate a happy quality of life whenever she is at home. She is very afraid of dying, although she does believe in a life after and believes she is going to Heaven, just afraid of dying itself. offered empathy and support. Admission and Anticipated Discharge Date Admission Date: October 25, 2023 Subjective feels a little better than yesterday. Still anxious about going home. Notes that her caregivers are with her quite a bit. She is not really able to get out of the house at all. She is afraid of dying, although she does believe in God and believes that she will go to [facility]. She is just afraid of dying, and does also seem to be very afraid of any onset of dyspnea. Review of Systems Review of Systems: All systems reviewed & are unremarkable except as noted in HPI & below Physical Exam Physical Exam: General she is awake and alert pleasant no distress. HEENT normocephalic atraumatic mucous membranes moist. Breathing unlabored no accessory muscle use good effort. Skin shows no rashes no pallor or icterus. Neuro without focal deficits. Results & Data Results & Data Vital Signs (Past 12 Hours) Vital Signs Temp Pulse Pulse Resp BP Pulse Ox O2 Del Method 10/28/23 15:06 64 20 97 Nasal Cannula 10/28/23 13:06 60 20 97 Nasal Cannula 10/28/23 11:37 98.2 F 52 L 19 155/81 H 95 Nasal Cannula 10/28/23 10:54 63 20 90 Nasal Cannula 10/28/23 09:50 55 L 10/28/23 07:46 97.5 F L 57 L 18 154/78 H 95 Nasal Cannula 10/28/23 07:29 Nasal Cannula 10/28/23 06:25 59 L 18 92 Nasal Cannula 10/28/23 04:29 98.2 F 60 20 91 Nasal Cannula O2 Flow Rate 10/28/23 15:06 3 10/28/23 13:06 3 10/28/23 11:37 3 10/28/23 10:54 1 10/28/23 09:50 10/28/23 07:46 2 10/28/23 07:29 2 10/28/23 06:25 2 10/28/23 04:29 2 PG Care Time/CCT Total # of Minutes Spent Total Time Spent with Patient: Total time spent is greater than 50% in coordination of care (as documented) at patient's floor/unit and/or counseling patient: Coding Level of Care Code 14179 SUB INP/OBS CARE 3/50MIN Diagnoses Acute and chronic respiratory failure J96.21; J96.22 Respiratory failure complication: hypoxia and hypercapnia Acute exacerbation of chronic obstructive pulmonary disease J44.1 DARI (acute kidney injury) N17.9 Anemia D64.9 Anemia type: unspecified type (1) Acute and chronic respiratory failure Respiratory failure complication: hypoxia and hypercapnia Qualified Code(s): J96.21 - Acute and chronic respiratory failure with hypoxia; J96.22 - Acute and chronic respiratory failure with hypercapnia (4) Anemia Anemia type: unspecified type Qualified Code(s): D64.9 - Anemia, unspecified
--- NOTE | 2023-10-28 16:20 | Billing Data ---
Date of Service October 28, 2023 Coding Level of Care Code 44096 SUB INP/OBS CARE 3MIN
--- NOTE | 2023-10-28 17:09 | Hospitalist Progress Note ---
Date of Service October 28, 2023 Assessment & Plan (1) Acute and chronic respiratory failure: (2) Acute exacerbation of chronic obstructive pulmonary disease: (3) DARI (acute kidney injury): (4) Anemia: Plan (1) Acute and chronic respiratory failure: (2) Acute exacerbation of chronic obstructive pulmonary disease: (3) DARI (acute kidney injury): (4) Fluid overload: (5) VIJAY (obstructive sleep apnea): (6) History of pulmonary embolism: (7) Hypothyroidism: (8) Atrial fibrillation: (9) Diabetes: (10) KATHLEEN (generalized anxiety disorder): (11) Hypertension: (12) GERD (gastroesophageal reflux disease): Plan 1) Acute on chronic respiratory failure with hypoxia- Primarily COPD exacerbation, but component of CHF and fluid overload as well Nasal cannula oxygen, titrate to keep pulse ox around 88-92% VBG: pH 7.34, pCO2 67 mm Hg 2) COPD exacerbation Received Solu-Medrol 60 mg IV in the ED, continued Solu-Medrol 20 mg IV every 8 hours, follow the blood sugar levels closely Guaifenesin extended release 1200 mg, PO, BID Azithromycin 500 mg IV daily during hospital stay Duonebs every 4 hours while awake. Continue arformoterol, albuterol sulfate inhaler and nebulizer, budesonide inhaler, fluticasone inhaler, ipratropium-albuterol, Roflumilast, and montelukast Prednisone taper, outpt: 60 mg/day x 3 days, 50 mg/day x 3 days, 40 mg/day x 3days, 30 mg/day x 3days, 20 mg/day x 3days, 10 mg/day x 3days 3) Atrial fibrillation/CHF/hypertension- Continue Xarelto, metoprolol succinate, spironolactone as outpatient 4) Diabetes mellitus- Continued glargine 15 units SubQ every morning, Held metformin during hospital stay Placed on Accu-Cheks with NovoLog SSI continue home diabetes meds regimen as outpt 5) Acute kidney injury- Creatinine 1.04 <- 1.86 (on admission), with base 0.9, resolving Patient received furosemide 20 mg IV from the ED, discontinued Placed on NSS at 60 mL/h x 1 L 6) Chronic anemia -last Hgb, 9.6 -trend CBC 7) GERD - continue pantoprazole, 40 mg, PO, BID as outpt Admission and Anticipated Discharge Date Admission Date: October 25, 2023 Subjective feels a little better than yesterday. Still anxious about going home. Notes that her caregivers are with her quite a bit. She is not really able to get out of the house at all. She is afraid of dying, although she does believe in God and believes [facility]. She is just afraid of dying, and does also seem to be very afraid of any onset of dyspnea. Review of Systems Constitutional: + body aches (at baseline) and + fatigue ; no fever and no chills Ear, Nose, Mouth, Throat: + dizziness (intermittently dizzy), + na antonio discharge and + post nasal drip; no nasal congestion Respiratory: + cough (has one at baseline, getting wo rse this past yr), + chest congestion, + dyspnea and + sputum production (can't cough it up, feels it in her throat); no pain on inspiration pt quit smoking 11 yrs ago Cardiovascular: + chest pain (maybe more chest tightness ) and + calf pain (muscle spasms); no palpitations Gastrointestinal: + nausea, + vomiting (intermittently vom its, last on Tu) and + diarrhea/loose stools (intermittent, last time yesterday morning (2 yest); wears pullups); no abdominal pain Neurologic: + numbness (numb 2nd toe, l. foot) Physical Exam Constitutional: well nourished, + morbidly obese and cooperative Respiratory: + respiratory distress (better on 4 L O2 NC), + cough and + pursed lip breathing; + not able to speak in complete sentence Cardiovascular: RRR, no murmur, no edema Extremities: no calf tenderness and no pedal edema Gastrointestinal (Abdomen): normal bowel sounds, soft, nontender, no hepatosplenomegaly Psychiatric: A+Ox3, euthymic affect Genitourinary: + CVA tenderness (right-sided, for past yr, thinks she's heard stones splash in toilet) Results & Data Results & Data Vital Signs (Past 12 Hours) Vital Signs Temp Pulse Pulse Resp BP Pulse Ox O2 Del Method 10/28/23 16:43 57 L 10/28/23 16:31 52 L 21 150/95 H 97 Nasal Cannula 10/28/23 15:06 64 20 97 Nasal Cannula 10/28/23 13:06 60 20 97 Nasal Cannula 10/28/23 11:37 36.8 C 52 L 19 155/81 H 95 Nasal Cannula 10/28/23 10:54 63 20 90 Nasal Cannula 10/28/23 09:50 55 L 10/28/23 07:46 36.4 C L 57 L 18 154/78 H 95 Nasal Cannula 10/28/23 07:29 Nasal Cannula 10/28/23 06:25 59 L 18 92 Nasal Cannula O2 Flow Rate 10/28/23 16:43 10/28/23 16:31 3 10/28/23 15:06 3 10/28/23 13:06 3 10/28/23 11:37 3 10/28/23 10:54 1 10/28/23 09:50 10/28/23 07:46 2 10/28/23 07:29 2 10/28/23 06:25 2 Resident Activity Tracking Resident Involvement: Resident Care Provided Care Provided: Adult Hospital Medicine (1) Acute and chronic respiratory failure Respiratory failure complication: hypoxia and hypercapnia Qualified Code(s): J96.21 - Acute and chronic respiratory failure with hypoxia; J96.22 - Acute and chronic respiratory failure with hypercapnia (4) Anemia Anemia type: unspecified type Qualified Code(s): D64.9 - Anemia, unspecified
--- NOTE | 2023-10-28 17:17 | Hospitalist Progress Note ---
Date of Service October 28, 2023 Assessment & Plan (1) Acute and chronic respiratory failure: (2) Acute exacerbation of chronic obstructive pulmonary disease: (3) DARI (acute kidney injury): (4) Anemia: Plan (1) Acute and chronic respiratory failure: (2) DARI (acute kidney injury): (3) Fluid overload: (4) Acute exacerbation of chronic obstructive pulmonary disease: (5) VIJAY (obstructive sleep apnea): (6) History of pulmonary embolism: (7) Hypothyroidism: (8) Atrial fibrillation: (9) Diabetes: (10) KATHLEEN (generalized anxiety disorder): (11) Hypertension: (12) GERD (gastroesophageal reflux disease): Plan Acute on chronic respiratory failure with hypoxia- Primarily COPD exacerbation, but component of CHF and fluid overload as well Nasal cannula oxygen, titrate to keep pulse ox around 88-92-% ideally but pt prefers higher pulse ox COPD exacerbation- Received Solu-Medrol 60 mg IV in the ED Continue Solu-Medrol 20 mg IV every 8 hours, follow the blood sugar levels closely Guaifenesin extended release 1200 mg p.o. twice daily Azithromycin 500 mg IV daily Duonebs every 4 hours while awake and every 2 hours when necessary. Continue arformoterol, Pulmicort Respules, Roflumilast, Spiriva and montelukast Atrial fibrillation/CHF/hypertension- Continue Xarelto, mag oxide, metoprolol succinate, spironolactone Diabetes mellitus- Continue glargine 15 units subcu every morning Hold metformin Placed on Accu-Cheks with NovoLog SSI Acute kidney injury- Creatinine 1.86 on admission, with base 0.9 Patient did receive furosemide 20 mg IV from the ED, without continue Placed on NSS at 60 mL/h x 1 L Recheck laboratories in a.m. Admission and Anticipated Discharge Date Admission Date: October 25, 2023 Supervising Physician Co-Signing Physician Notes I personally examined the patient and verified all pichardo points of history and exam, discussed case, and agree with decision making with Dr Mendes breathing continuing to feel little better. Feels like she should hopefully be able to go home in the next day or 2. Vitals noted, in general she is awake and alert pleasant no distress. HEENT normocephalic atraumatic mucous membranes moist. Breathing unlabored no accessory muscle use good effort. Better air entryand because of that, now with faint wheeze bilaterally. No rhonchi no rales Skin shows no rashes no pallor or icterus. Neuro without focal deficits. dyspneapredominantly severe COPD with mild exacerbation, also possibly a degree of acute on chronic HFpEFoverall improving. Continue current care. Have discussed goals of careand while she is struggling with her mortality overall given her severity of illness, she clearly would prefer to continue on a model of aggressive care when she gets sick. Subjective feels a little better than yesterday. Still anxious about going home. Notes that her caregivers are with her quite a bit. She is not really able to get out of the house at all. She is afraid of dying, although she does believe in God and believes that she will go to [facility]. She is just afraid of dying, and does also seem to be very afraid of any onset of dyspnea. Review of Systems Constitutional: + body aches (at baseline) and + fatigue ; no fever and no chills Ear, Nose, Mouth, Throat: + dizziness (intermittently dizzy), + na antonio discharge and + post nasal drip; no nasal congestion Respiratory: + cough (has one at baseline, getting wo rse this past yr), + chest congestion, + dyspnea and + sputum production (can't cough it up, feels it in her throat); no pain on inspiration pt quit smoking 11 yrs ago Cardiovascular: + chest pain (maybe more chest tightness ) and + calf pain (muscle spasms); no palpitations Gastrointestinal: + nausea, + vomiting (intermittently vom its, last on ) and + diarrhea/loose stools (intermittent, last time yesterday morning (2 yest); wears pullups); no abdominal pain Neurologic: + numbness (numb 2nd toe, l. foot) Physical Exam Constitutional: + ill appearing, + obese, + physical deal itations and + frail appearing Respiratory: + respiratory distress and + labored annalisa athing Auscultation: + wheezes Cardiovascular: Rate/Rhythm: regular rate and regular rhythm Extremities: no pedal edema Gastrointestinal (Abdomen): normal bowel sounds, soft, nontender, no hepatosplenomegaly Psychiatric: A+Ox3, euthymic affect Results & Data Results & Data Vital Signs (Past 12 Hours) Vital Signs Temp Pulse Pulse Resp BP Pulse Ox O2 Del Method 10/28/23 16:43 57 L 10/28/23 16:31 52 L 21 150/95 H 97 Nasal Cannula 10/28/23 15:06 64 20 97 Nasal Cannula 10/28/23 13:06 60 20 97 Nasal Cannula 10/28/23 11:37 36.8 C 52 L 19 155/81 H 95 Nasal Cannula 10/28/23 10:54 63 20 90 Nasal Cannula 10/28/23 09:50 55 L 10/28/23 07:46 36.4 C L 57 L 18 154/78 H 95 Nasal Cannula 10/28/23 07:29 Nasal Cannula 10/28/23 06:25 59 L 18 92 Nasal Cannula O2 Flow Rate 10/28/23 16:43 10/28/23 16:31 3 10/28/23 15:06 3 10/28/23 13:06 3 10/28/23 11:37 3 10/28/23 10:54 1 10/28/23 09:50 10/28/23 07:46 2 10/28/23 07:29 2 10/28/23 06:25 2 (1) Acute and chronic respiratory failure Respiratory failure complication: hypoxia and hypercapnia Qualified Code(s): J96.21 - Acute and chronic respiratory failure with hypoxia; J96.22 - Acute and chronic respiratory failure with hypercapnia (4) Anemia Anemia type: unspecified type Qualified Code(s): D64.9 - Anemia, unspecified
[2023-10-28] MEDS: LORazepam 0.25 MG in SYRINGE 0.125 ML IV STA (21:56)
--- NOTE | 2023-10-29 05:33 | Electrocardiogram Report ---
Test Reason : Blood Pressure : / mmHG Vent. Rate : 062 BPM Atrial Rate : 062 BPM P-R Int : 164 ms QRS Dur : 072 ms QT Int : 406 ms P-R-T Axes : 070 008 053 degrees QTc Int : 412 ms Normal sinus rhythm Low voltage QRS Septal infarct , age undetermined Abnormal ECG When compared with ECG of 25-OCT-2023 02:59, Septal infarct is now Present Confirmed by Sushant Morales ([id number]) on 10/29/2023 5:33:29 AM Referred By: REFERRED SELF Confirmed By:Sushant Morales
[2023-10-29 06:59] LABS: Creatinine Clr Calc Pharmacy 50.6 ml/min; Est GFR (African American) 62.1 ml/min; Est GFR (Non-African American) 53.5 ml/min
[2023-10-29] MEDS: busPIRone 5 MG TAB PO PRN (08:23)
[2023-10-29] MEDS: LANTUS PER UNIT CHARGE SC SCH (09:19)
--- NOTE | 2023-10-29 12:44 | Billing Data ---
Date of Service October 29, 2023 Coding Level of Care Code 79910 SUB INP/OBS CARE 3MIN
--- NOTE | 2023-10-29 20:39 | Hospitalist Progress Note ---
Date of Service October 29, 2023 Assessment & Plan (1) Acute and chronic respiratory failure: Plan: due mostly to COPD (mild exacerbation of severe COPD) - but also can't r/o concomitant acute on chronic HFpEF doing better - hopefully home tomorrow for symptom relief given ferritin 30 and possible HFpEF - venofer (2) Acute exacerbation of chronic obstructive pulmonary disease: Plan: steroids (switch to PO), switch azithromycin to m/w/f indefinitely, continue inhalers, nebs (3) DARI (acute kidney injury): (4) Anemia: Plan Atrial fibrillation/CHF/HTN- Continue Xarelto, metoprolol succinate, spironolactone Diabetes mellitus- titrate insulins 5) Acute kidney injury- now improved 6) Chronic anemia venofer (while being given for sx relief in context of possible component of CHF) should help this as well 7) GERD - continue pantoprazole, 40 mg, PO, BID Admission and Anticipated Discharge Date Admission Date: October 25, 2023 Subjective Chief Complaint: The patient presents to the emergency department with complaint of shortness of breath, dyspnea on exertion and generalized fatigue over the past few weeks Primary Care Provider: Dayna Bullard The patient is a 78-year-old female with a past medical history including chronic respiratory failure, COPD, atrial fibrillation with RVR, panic attack, VIJAY, atrial fibrillation, pulmonary embolism, hypothyroidism, GERD, KATHLEEN, septic thrombophlebitis and syncope. She has chronic shortness of breath, however, symptoms have worsened slightly over the past few weeks, to the point that she could not understand and came to the ED this evening. From the ED patient had the following: Hour-long DuoNeb, Solu-Medrol 60 mg IV and Lasix 20 mg IV. She reported her symptoms have improved somewhat with the initial treatments. I saw the patient again this morning and her dyspnea, wheezing, and generalized fatigue/weakness have improved. Patient was on 4 L O2 NC, with an SpO2 of 98 when I saw her, and, though she's been counseled that her optimal O2 sats should be 88-92%, she prefers higher oxygen flow/higher O2 sats, requests to have settings at her comfort level. Again, ost of patient's clinical symptoms seem either more [id number] or subacute in nature than acute, as she notes experiencing them for several months but decided to come in as they continue to get worse. Patient seems very dependent on nebulizer treatment right now and am afraid that this makes it harder for her to adjust to conditions outside the hospital. Review of Systems Constitutional: + fatigue; no fever and no chills Respiratory: + cough, + dyspnea and + wheezing Cardiovascular: + chest pain (more chest tightness than pain); no palpitations Gastrointestinal: no abdominal pain, no nausea and no vomiting Neurologic: + tingling (somebaseline numbness/tingli ng in hands) and + numbness Physical Exam Constitutional: + ill appearing, + obese and + frail odalys earing Respiratory: + labored breathing, + cough, + audible wheezes and + pursed lip breathing Auscultation: + wheezes Cardiovascular: Rate/Rhythm: regular rate and regular rhythm Gastrointestinal (Abdomen): normal bowel sounds, soft, nontender, no hepatosplenomegaly Psychiatric: A+Ox3, euthymic affect Genitourinary: + CVA tenderness (right) Results & Data Results & Data Vital Signs (Past 12 Hours) Vital Signs Temp Pulse Pulse Resp BP Pulse Ox O2 Del Method 10/29/23 19:00 36.6 C 57 L 24 164/79 H 95 Nasal Cannula 10/29/23 16:21 37.1 C 54 L 21 138/75 99 Nasal Cannula 10/29/23 15:11 59 L 10/29/23 15:06 56 L 20 96 Nasal Cannula 10/29/23 12:59 Nasal Cannula 10/29/23 11:30 36.6 C 57 L 20 157/75 H 93 Nasal Cannula 10/29/23 10:52 58 L 18 92 Nasal Cannula O2 Flow Rate 10/29/23 19:00 10/29/23 16:21 2 10/29/23 15:11 10/29/23 15:06 2 10/29/23 12:59 3 10/29/23 11:30 2 10/29/23 10:52 2 (1) Acute and chronic respiratory failure Respiratory failure complication: hypoxia and hypercapnia Qualified Code(s): J96.21 - Acute and chronic respiratory failure with hypoxia; J96.22 - Acute and chronic respiratory failure with hypercapnia (4) Anemia Anemia type: unspecified type Qualified Code(s): D64.9 - Anemia, unspecified
[2023-10-30 06:29] LABS: Creatinine Clr Calc Pharmacy 44.8 ml/min; Est GFR (African American) 53.5 ml/min; Est GFR (Non-African American) 46.2 ml/min
[2023-10-30 06:49] LABS: Ferritin 30.8 ng/ml (8-388)
[2023-10-30] MEDS ORDERED: LANTUS PER UNIT CHARGE SC SCH (09:00)
[2023-10-30] MEDS: LANTUS PER UNIT CHARGE SC ONE (09:10)
[2023-10-30] MEDS: IRON SUCROSE 200 MG in 0.9 % SODIUM CHLORIDE 100 ML IV ONE (09:22)
[2023-10-30] MEDS: predniSONE 20 MG TAB PO SCH (10:14)
[2023-10-30] MEDS: AZITHROMYCIN 250 MG TAB PO SCH (10:15)
--- NOTE | 2023-10-30 15:42 | Communication Note ---
Date of Service: October 30, 2023 in regards to wheelchair: patient can't use walker/cane effectively, especially due to severe lung disease/ALVAREZ - wheelchair would improve ADLs
--- NOTE | 2023-10-30 19:15 | Billing Data ---
Date of Service October 30, 2023 Coding Level of Care Code 84050 SUB INP/OBS CARE MIN
[2023-10-30] MEDS ORDERED: COUGH DROP (SUGAR FREE) LOZ 24 LOZ/1 BOX BUCCAL PRN (21:15)
[2023-10-30] MEDS: COUGH DROP (SUGAR FREE) LOZ 24 LOZ/1 BOX BUCCAL ONE (22:08)
[2023-10-31] MEDS: LANTUS PER UNIT CHARGE SC SCH (08:48)
--- NOTE | 2023-10-31 10:14 | Hospitalist Progress Note ---
Date of Service October 31, 2023 Assessment & Plan (1) Acute and chronic respiratory failure: (2) Acute exacerbation of chronic obstructive pulmonary disease: (3) DARI (acute kidney injury): (4) Anemia: Plan 1) Acute on chronic respiratory failure with hypoxia- Primarily COPD exacerbation, but component of CHF and fluid overload as well Nasal cannula oxygen, titrate to keep pulse ox around 88-92% VBG: pH 7.34, pCO2 67 mm Hg 2) COPD exacerbation Received Solu-Medrol 60 mg IV in the ED Continue Solu-Medrol 20 mg IV every 8 hours, follow the blood sugar levels closely Guaifenesin extended release 1200 mg, PO, BID Azithromycin 500 mg IV daily Duonebs every 4 hours while awake. Continue formoterol, Pulmicort Respules, Roflumilast, Spiriva and montelukast - pt wanting very frequent nebulizer treatments, every 2 hours, had a four-hour long treatment last night, anxiety possibly contributing factor 3) Atrial fibrillation/CHF/HTN- Continue Xarelto, metoprolol succinate, spironolactone 4) Diabetes mellitus- Continue glargine 15 units SubQ every morning Hold metformin Placed on Accu-Cheks with NovoLog SSI 5) Acute kidney injury- Creatinine 1.04 <- 1.86 (on admission), with base 0.9, resolving Patient did receive furosemide 20 mg IV from the ED, discontinued Placed on NSS at 60 mL/h x 1 L 6) Chronic anemia -Hgb, 9.7 - Hgb's stable 7) GERD - continue pantoprazole, 40 mg, PO, BID Admission and Anticipated Discharge Date Admission Date: October 25, 2023 Subjective Chief Complaint: The patient presents to the emergency department with complaint of shortness of breath, dyspnea on exertion and generalized fatigue over the past few weeks Primary Care Provider: Dayna Bullard The patient is a 78-year-old female with a past medical history including chronic respiratory failure, COPD, atrial fibrillation with RVR, panic attack, VIJAY, atrial fibrillation, pulmonary embolism, hypothyroidism, GERD, KATHLEEN, septic thrombophlebitis and syncope. She has chronic shortness of breath, however, symptoms have worsened slightly over the past few weeks, to the point that she could not understand and came to the ED this evening. From the ED patient had the following: Hour-long DuoNeb, Solu-Medrol 60 mg IV and Lasix 20 mg IV. She reported her symptoms have improved somewhat with the initial treatments. I saw the patient again this morning and her dyspnea, wheezing, and generalized fatigue/weakness have improved. Patient was on 4 L O2 NC, with an SpO2 of 98 when I saw her, and, though she's been counseled that her optimal O2 sats should be 88-92%, she prefers higher oxygen flow/higher O2 sats, requests to have settings at her comfort level. Again, ost of patient's clinical symptoms seem either more [id number] or subacute in nature than acute, as she notes experiencing them for several months but decided to come in as they continue to get worse. Patient seems very dependent on nebulizer treatment right now and am afraid that this makes it harder for her to adjust to conditions outside the hospital. Results & Data Results & Data Vital Signs (Past 12 Hours) Vital Signs Temp Pulse Pulse Resp BP Pulse Ox O2 Del Method 10/31/23 08:07 36.9 C 49 L 152/79 H 95 Nasal Cannula 10/31/23 05:58 86 20 96 Nasal Cannula 10/31/23 03:40 36.9 C 51 L 18 145/76 H 96 Nasal Cannula 10/31/23 02:07 60 22 95 Nasal Cannula 10/30/23 23:35 52 L 10/30/23 23:23 81 21 96 Nasal Cannula O2 Flow Rate 10/31/23 08:07 2 10/31/23 05:58 3 10/31/23 03:40 3 10/31/23 02:07 3 10/30/23 23:35 10/30/23 23:23 3 (1) Acute and chronic respiratory failure Respiratory failure complication: hypoxia and hypercapnia Qualified Code(s): J96.21 - Acute and chronic respiratory failure with hypoxia; J96.22 - Acute and chronic respiratory failure with hypercapnia (4) Anemia Anemia type: unspecified type Qualified Code(s): D64.9 - Anemia, unspecified
[2023-10-31] MEDS: IRON SUCROSE 200 MG in 0.9 % SODIUM CHLORIDE 100 ML IV ONE (10:19)
--- NOTE | 2023-10-31 12:10 | Discharge Summary ---
Date of Service October 31, 2023 Admission Exam Per Admitting Provider The patient is awake, alert and oriented 3, well developed and well nourished, normocephalic and atraumatic, lying in bed and in no acute distress. HEENT--PERRL, EOMI, mucous membranes and oropharynx dry. Neck--supple. No JVD. No bruits. Thyroid normal, trachea midline, no adenopathy. Heart--normal S1 and S2. No murmurs, rubs or gallops. Lungs--inspiratory and expiratory wheezes bilaterally Abdomen--normal bowel sounds and soft. Nontender. Nondistended. Obese Extremities--no cyanosis or clubbing. Trace pretibial pitting edema. Dermatologic--normal skin turgor, normal color, no abnormal lymph nodes, no r kathy. Neurologic--cranial nerves II through XII grossly intact. Rheumatologic--normal range of motion. Psychiatric--normal affect. Principal Diagnosis acute on chronic respiratory failure Discharge Exam Constitutional WD/WN, vitals as above Neck trachea midline, no thyromegaly Respiratory Bilateral expiratory wheezes appreciated on auscultation. Decent air movement, symmetrical bilaterally. non-labored breathing Cardiovascular RRR, no murmur, no edema Gastrointestinal (Abdomen) normal bowel sounds, soft, nontender, no hepatosplenomegaly Skin vesicular lesions on an inflamed base appreciated above gluteal cleft Psychiatric A+Ox3, euthymic affect Discharge Data Allergies Allergy/AdvReac Type Severity Reaction Status Date / Time rabies vaccine, duck-embryo Allergy Severe HIVES Verified 06/09/22 12:02 ragweed pollen Allergy Unknown UNKNOWN Verified 06/09/22 12:02 tomato Allergy Unknown HIVES Verified 06/09/22 12:02 Consultations 10/25/23 05:29 ED Decision to Admit Stat Hospital Course (1) Acute and chronic respiratory failure: (2) Acute exacerbation of chronic obstructive pulmonary disease: (3) DARI (acute kidney injury): (4) Anemia: Plan # Acute on chronic respiratory failure, COPD exacerbation: - Patient managed with supplemental O2 as needed to maintain SpO2 > 88%, back to home baseline of 2L at time of discharge. - Home respiratory meds continued in addition to DuoNebs, steroids, and azithromycin - patient discharged with recommendation to complete 18 day prednisone taper + continue Azithromycin 500mg 3x/week indefinitely. #DARI: - Cr 1.86 on admission, now resolved. #Afib/CHF/HTN/DM: - home medications continued #Shingles: - Shingles flareup noted on day of discharge. Patient discharged with rx for Valtrex x 7 days. Total Time Total Time Spent Total Time Spent (In Minutes): <30 Discharge Plan Discharge Items Patient Disposition: Home - Self-Care Reason For Visit: ACUTE ON CHRONIC RESP FAILURE Discharge Diagnosis: COPD exacerbation Activity: Resume your previous activity Non-emergency contact: Primary Care Provider and Compliance Auditor Call non-emergency contact if: your symptoms worsen and you have a fever Follow-up/Referrals: Dayna Bullard PA-C [Primary Care Provider] - Diet: Carb Consistent or DM2 Addtl Attending Provider Instructions: You were admitted to the hospital for acute exacerbation of COPD. You were treated with methylprednisolone, albuterol nebulizers, montelukast, Roflumilast, umeclidinium bromide, azithromycin among other medications that you use at home. A discharge summary will be sent to your primary care physician to ensure continuity of care. Please bring this discharge summary with you to your next office appointment so that your provider can review it at that time. Follow-up appointments: We have requested a follow-up appointment with your primary care physician within one week of discharge. Please call their office if you do not hear from them. Keep all your follow-up appointments as already scheduled. If you cannot make an appointment, notify your provider. Medications: Your medication list has been reviewed and reconciled upon discharge to ensure accuracy and continuity of care. An updated list of all your medications is included with your hospital discharge paperwork. Please review this list closely, and make note of any changes. We sent a new medication called prednisone to your pharmacy. Take prednisone as a taper, with 60 mg for 3 days, 50 mg for 3 days, 40 mg for 3 days, 30 mg for 3 days, 20 mg for 3 days, 10 mg for 3 days for a total of 18 days. We sent a new medication called azithromycin to your pharmacy. Please take a 500mg dose three times per week (ie. Thursday, Thursday, Thursday). We sent a medication called Valtrex to your pharmacy, this is to treat s hingles. Please take a 1g dose three times per day for 7 days. Take your medications as instructed; do not skip a dose of your medicines. Make sure all of your doctors know every medicine you are taking (including huiu-rce-svsonft medicines, vitamins, and supplements). Call your primary care provider before taking any new medicines (including tpyl-uvj-dojvyyg medicines, vitamins, and supplements), because some of these may interact with your current medications, or may make your symptoms worse. Tell your primary care provider if you cannot afford your medications. CONTACT YOUR PRIMARY CARE PROVIDER if you experience any of the following: shortness of breath, chest pain, fever increased weakness or fatigue Difficulty following your treatment plan, or difficulty taking medications CALL 911 OR GO TO THE EMERGENCY DEPARTMENT if you experience any of the following: Sudden, severe abdominal pain or nausea/vomiting Severe chest pain, or chest pain that radiates (moves) to your jaw or arm Sudden, severe shortness of breath or difficulty breathing Thank you for allowing us to participate in your care Pending Studies at Discharge: No Stand-Alone Forms: My [employer], Smoking Cessation Medications and DC Order Prescriptions: New prednisone 10 mg tablet 10 mg PO DIRECTED Qty: 63 0RF Rx Instructions: see taper instructions 60 mg/day for 3 days, 50 mg/day for 3 days, 40 mg/day for 3 days, 30 mg/day for 3 days, 20 mg/day for 3 days, 10 mg/day for 3 days azithromycin 500 mg tablet 500 mg PO 3XWK 30 Days Qty: 30 1RF Rx Instructions: Please take 500mg (1 tab) three times per week (ie. Thursday, Thursday, Thursday) valacyclovir [Valtrex] 1 gram tablet 1,000 mg PO TID 7 Days Qty: 21 0RF Continued (DME) Oxygen Home E0424 Liters Per Minute See Rx Instructions .Route Rx Instructions: As directed- 2lpm all the time spironolactone 50 mg tablet 100 mg PO DAILY Tylenol Extra Strength 500 mg powder in packet 0 mg PO Q4H PRN (Reason: Pain) Rx Instructions: Unable to verify OTC medications with patient/pharmacy at this date/time. Original Directions: 500mg by mouth every 4 hours as needed montelukast 10 mg tablet 10 mg PO HS Qty: 90 2RF budesonide 0.5 mg/2 mL suspension for nebulization 0.5 mg inhalation BID Qty: 180 4RF ipratropium-albuterol 0.5 mg-3 mg(2.5 mg base)/3 mL solution for nebulization 3 ml inhalation Q8H PRN (Reason: shortness of breath or wheezing) Qty: 540 2R F revefenacin 175 mcg/3 mL solution for nebulization 175 mcg inhalation DAILY Qty: 90 3RF arformoterol [Brovana] 15 mcg/2 mL solution for nebulization 2 ml inhalation BID Qty: 360 4RF insulin lispro [Humalog KwikPen Insulin] 100 unit/mL insulin pen 12 unit SUBCUT TIDM quetiapine 200 mg Tablet 200 mg PO HS levothyroxine 25 mcg Tablet 25 mcg PO QAM famotidine 20 mg Tablet 20 mg PO QAM pantoprazole 40 mg Tablet,Delayed Release (Dr/Ec) 40 mg PO BID mirtazapine 30 mg tablet 30 mg PO HS escitalopram oxalate 10 mg Tablet 15 mg PO QAM Xarelto 20 mg Tablet 20 mg PO QAM metoprolol succinate 25 mg Capsule,Sprinkle,Er 24hr 25 mg PO BID magnesium oxide 400 mg magnesium Tablet 400 mg PO BID polysaccharide iron complex [Poly-Iron] 150 mg iron capsule 150 mg PO BID fluticasone propionate 50 mcg/actuation spray,suspension 0 mcg INTRANASAL DAILY Rx Instructions: Unable to verify OTC medications with patient/pharmacy at this date/time. cholecalciferol (vitamin D3) 10 mcg (400 unit) tablet,chewable 10 mcg PO DAILY buspirone 5 mg Tablet 5 mg PO TID PRN (Reason: anxiety) Qty: 60 1RF metformin 500 mg Tablet Extended Release 24 Hr 500 mg PO BID Qty: 60 0RF Rx Instructions: take with breakfast and with your evening dinner meal albuterol sulfate 2.5 mg /3 mL (0.083 %) solution for nebulization 2.5 mg continuous nebulization Q4H cyanocobalamin (vitamin B-12) [Vitamin B-12] 1,000 mcg Tablet 0 mcg PO DAILY Rx Instructions: Unable to verify OTC medications with patient/pharmacy at this date/time. theophylline 450 mg tablet extended release 12 hr 450 mg PO DAILY albuterol sulfate 90 mcg/actuation HFA aerosol inhaler 2 puff INHALATION BID PRN (Reason: Wheezing/SOB) insulin glargine [Lantus Solostar U-100 Insulin] 100 unit/mL (3 mL) insulin pen 15 unit SUBCUT HS roflumilast [Daliresp] 500 mcg tablet 500 mcg PO QAM guaifenesin [Mucinex] 1,200 mg Tablet Extended Release 12hr 0 mg PO BID Rx Instructions: Unable to verify OTC medications with patient/pharmacy at this date/time. Discontinued azithromycin 250 mg tablet 250 mg PO 3XWK Qty: 36 5RF Rx Instructions: Thursday, Thursday, Thursday Discharge Orders: Discharge Order (Routine); Ordered 10/31/23 Ordered By: Cesar Medrano/Other Patient Handouts: Managing Type 2 Diabetes Admission Data Admit Date/Time: 10/25/23 06:59 Attending Provider: Jose Osorio Admit Provider: David Norris Primary Care Provider: Dayna Bullard Other Providers: David Norris Other Interventions: Discharge Summary Assessment (RN) Last Done: 10/31/23 14:35 Supervising Physician Co-Signing Physician Notes I personally examined the patient and verified all pichardo points of history and exam, discussed case, and agree with decision making with Dr Skinner Breathing feeling better. Feels up to going home. Her caregiver will be able to take her home at the start of her shift and that way she also will not be home alone. Notes that she feels like she is having a shingles outbreak on her buttockwhich is where she seems to frequently have a shingles outbreak. Vitals noted, in general she is awake and alert pleasant no distress. HEENT normocephalic atraumatic mucous membranes moist. Breathing unlabored no accessory muscle use good effort. Skin does show a few tiny inflamed vesicles on an erythematous base and a small patch that appears to be the beginnings of vesicles right buttock probably L5 or P5pbyoic tender. dyspneapredominantly severe COPD with mild exacerbation, also possibly a degree of acute on chronic HFpEFoverall improving. Safe/stable for home. Zithromax 3 times a week. Long steroid taper. Gave IV iron given her ferritin being 30 and outcomes data suggesting the benefit of IV iron from a heart failure standpoint (even though she was predominantly here for COPD). Continue current care. Have discussed goals of careand while she is struggling with her mortality overall given her severity of illness, she clearly would prefer to continue on a model of aggressive care when she gets sick. Valtrex for shingles outbreak. Stable for home, otherwise as above. Resident Activity Tracking Resident Involvement: Resident Care Provided Care Provided: Adult Hospital Medicine
--- NOTE | 2023-10-31 16:42 | Billing Data ---
Date of Service October 31, 2023 Coding Level of Care Code 13510 IN/OBS DISCH 30 MIN/LESS
== END 2023-10-31 18:53 | disposition home health service (06) | DRG 189 ==
LOC: SUATTDRO → ED 02:48 → SUATTDRO 06:59 → EDINP 06:59 → 4W 10-27 09:59

== ENCOUNTER 2024-09-22 19:17 | Inpatient (IN) ==
[2024-09-22] MEDS: methylPREDNISolone 125 MG/2 ML VIAL IV STA (19:40)
[2024-09-22] MEDS: ALBUT/IPRATROP 3MG/0.5MG NEB 3 ML VIAL NEB ONE (19:43)
--- NOTE | 2024-09-22 19:44 | Emergency Department Note ---
Impression & Plan Acute exacerbation of chronic obstructive pulmonary disease, COVID-19 ED Provider Note Provider: Van Peralta MD CHIEF COMPLAINT: Shortness of breath HISTORY OF PRESENT ILLNESS: Patient is a 79-year-old female past medical history of type 2 diabetes, atrial fibrillation on Xarelto, COPD and chronic respiratory failure on 2 L of oxygen, CHF, CAD, and hypertension presenting here today via ambulance from her apartment. Patient resides at the [facility]. States today she became more short of breath just suddenly. Could not get air and was gasping. EMS reports that she seemed in quite a bit of distress initially given a DuoNeb with good improvement of her symptoms. Maintained on her home 2 L of oxygen. Patient did take an Ativan before coming in as she often gets anxious. Patient reports she has had some chronic swelling of her left lower leg but states compliance with home medications including her Xarelto anticoagulant. Patient states that some of her caretakers have been ill recently but she denies known fever. Denies significant nausea or vomiting reports occasionally some constipation or diarrhea. No abdominal pain reported. No significant chest pain reported. States feels similar when she was admitted in the spring around October or November. PAST MEDICAL HISTORY: As noted above MEDICATIONS: Reviewed home medications include Xarelto as well as chronic 2 L oxygen SOCIAL HISTORY: Resides at the [facility] apartment PHYSICAL EXAM: GENERAL: alert and oriented in no acute distress on stretcher Head: normocephalic and atraumatic EYES: No injection, discharge or icterus. PERRL, EOMI. NECK: Trachea midline. Supple. ENT: Mucous membranes pink and moist. Pharynx without erythema or exudate. LUNGS: Airway patent. No retractions. Breath sounds diminished air movement with expiratory wheeze HEART: Regular rate and rhythm. No chest wall tenderness ABDOMEN: Soft and non-tender, without guarding or rebound. SKIN: Acyanotic, warm, dry, without rashes EXTREMITIES: Without deformity with left greater than right calf swelling 1+. NEUROLOGICAL: No focal deficits. No aphasia. No facial droop or slurred speech. Normal strength and tone in the extremities. Sensation to gross touch normal. EK beats per minute. Normal sinus rhythm. No PVC or PAC. No acute ST segment elevation or depression with QTc of 422. CONTINUOUS CARDIAC MONITORING: was ordered and showed a heart rate of 60s to 70s bpm in normal sinus rhythm Patient's laboratory studies and imaging reviewed. Differential includes Reactive airway disease, pneumonia, pneumothorax, COPD, CHF, infections, cardiac ischemia, pulmonary embolism, musculoskeletal, gastrointestinal, as well as other pathologies. IMPRESSION/MEDICAL DECISION MAKING: Patient with decreased air movement and some slight wheeze. Question COPD versus CHF. Given DuoNeb and steroid here initially. Blood work sent. States he feels a little bit drowsy and a VBG sent although does not appear that encephalopathic on exam. Anticoagulated low suspicion for DVT/PE. EKG and troponin sent but lower suspicion for acute ACS at this time. Benign abdomen on exam. Respiratory viral panel sent to look for possible viral etiology to her breathing. Chest x-ray here per my review and interpretation and report does not seem significantly different from previous. No pneumothorax or obvious pneumonia noted.No significant leukocytosis or anemia. VBG with a mild acidosis 7.33 with a CO2 of 73. Some chronic retention with an elevated, dioxide level of 37 on chemistry without other severe electrolyte evidence of the renal dysfunction. No evidence of transaminitis. Troponin and BNP noted normal not elevated. Respiratory viral panel positive for COVID-19 likely contributing to her exacerbation. Stable on baseline oxygen at this time. Reassessment patient is resting in bed. Do not believe this represents CHF. Discussed with her further observation here overnight given her respiratory complaints and still with some wheeze although much improved. She was agreeable. Hospitalist team contacted. DIAGNOSIS: Acute COPD exacerbation, COVID-19 DISPOSITION: Hospitalist will evaluate Patient was agreeable with this plan. Past Med/Surg History Problem List (Updated 09/22/24 @ 21:16 by Van Peralta M.D.) COVID-19 (Acute) Acute exacerbation of chronic obstructive pulmonary disease (Acute) Anticoagulant long-term use Insulin dependent type 2 diabetes mellitus Type 2 diabetes mellitus Diabetic retinopathy Anemia (Acute) Panic attack as reaction to stress Constipation Chronic bronchitis VIJAY (obstructive sleep apnea) Atelectasis Hypothyroidism History of pulmonary embolism Atrial fibrillation Hypersomnolence disorder, persistent, mild Chronic respiratory failure with hypoxia Morbid obesity COPD with emphysema Obesity hypoventilation syndrome Breast cancer, right breast Shingles Hypertension (Chronic) CHF (congestive heart failure) (Chronic) GERD (gastroesophageal reflux disease) (Chronic) KATHLEEN (generalized anxiety disorder) (Chronic) Major depression, recurrent, full remission (Chronic) Medical History (Updated 09/22/24 @ 21:16 by Van Peralta M.D.) Hyponatremia Syncope Septic thrombophlebitis QT prolongation GI bleed Endocarditis Hypoxia Air hunger RSV (respiratory syncytial virus infection) Acute exacerbation of chronic obstructive pulmonary disease Acute on chronic respiratory failure with hypoxia and hypercapnia Acute and chronic respiratory failure with hypoxia Acute on chronic combined systolic (congestive) and diastolic (congestive) heart failure SOB (shortness of breath) COPD exacerbation Spinal abscess MSSA (methicillin susceptible Staphylococcus aureus) septicemia Surgical History H/O tooth extraction removal of all teeth History of lumpectomy Family History Mother Breast cancer Coronary heart disease Myocardial infarction Father Coronary heart disease Myocardial infarction Stroke Denies family history of Ovarian cancer Prostate cancer Colorectal cancer Social History Smoking Status: Former smoker Tobacco Type: Cigarettes Age Started Using Tobacco: 15; Age Quit Using Tobacco: 66; packs per day: 2; Second Hand Exposure: No; Do You Dip or Chew Tobacco: No; Hx Alcohol Use: No Hx Substance Use: No Preferred Language: Rwandan Communication Ability: Effective It Program Auditor Required: No Beliefs That Will Affect Care: None marital status: Single Current Living Situation: Alone Current Living Situation 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, CAREGIVER 3HOURS A DAY 3 DAYS A WEEK current occupational status: retired How many Children do You have: 0 Feels Safe at Home: Yes Assistive Devices: Oxygen - Continuous, Scooter/Electric Scooter, Walker and Wheelchair Allergies Allergies Allergy/AdvReac Type Severity Reaction Status Date / Time rabies vaccine, duck-embryo Allergy Severe HIVES Verified 08/08/24 11:34 ragweed pollen Allergy Unknown UNKNOWN Verified 08/08/24 11:34 tomato Allergy Unknown HIVES Verified 08/08/24 11:34 Home Meds Home Medications Medication Instructions Recorded Confirmed escitalopram oxalate 10 mg tablet 15 mg PO QAM 02/10/19 08/08/24 mirtazapine 30 mg tablet 30 mg PO HS 02/10/19 07/13/24 quetiapine 200 mg tablet 200 mg PO HS 02/10/19 08/08/24 Oxygen Home 11/18/22 07/13/24 albuterol sulfate 90 mcg/actuation 2 puff inhalation BID PRN 10/25/23 08/08/24 aerosol inhaler Wheezing/SOB roflumilast 500 mcg tablet 500 mcg PO QAM 10/25/23 08/08/24 (Daliresp) insulin lispro 100 unit/mL 12 unit subcut DAILY 11/13/23 08/08/24 subcutaneous pen (Humalog KwikPen (U-100) Insulin) cyanocobalamin (vitamin B-12) 1,000 mcg PO DAILY 12/22/23 08/08/24 1,000 mcg tablet (Vitamin B-12) guaifenesin 1,200 mg tablet, 1,200 mg PO BID 12/22/23 08/08/24 extended release 12 hr (Mucinex) insulin glargine 100 unit/mL (3 17 unit subcut HS 12/28/23 08/08/24 mL) subcutaneous pen (Lantus Solostar U-100 Insulin) Previous Rx's Medication Instructions Recorded budesonide 0.5 mg/2 mL suspension 0.5 mg (2 mL) inhalation BID #180 09/28/23 for nebulization mL ipratropium 0.5 mg-albuterol 3 mg 3 ml inhalation Q8H PRN shortness 09/28/23 (2.5 mg base)/3 mL nebulization of breath or wheezing #540 mL soln revefenacin 175 mcg/3 mL solution 175 mcg (3 mL) inhalation DAILY 09/28/23 for nebulization #90 mL arformoterol 15 mcg/2 mL solution 2 ml inhalation BID #360 mL 11/17/23 for nebulization (Brovana) Portable Oxygen #1 ea 12/22/23 nebulizer and compressor #1 ea 01/29/24 azithromycin 500 mg tablet 500 mg PO 3XWK 30 days #30 tabs 03/03/24 blood sugar diagnostic (Contour #100 ea 03/31/24 Test Strips) fluticasone propionate 50 1 spray intranasal DAILY #16 grams 04/05/24 mcg/actuation nasal spray,suspension pen needle, diabetic 32 gauge x #200 ea 05/03/24 5/32" (Easy Comfort Pen [place]) blood-glucose meter,continuous #3 ea 05/26/24 (FreeStyle Jessica 3 Gladys) blood-glucose sensor (FreeStyle #3 ea 05/26/24 Jessica 3 Sensor device) empagliflozin 25 mg tablet 25 mg PO DAILY #90 tabs 05/26/24 montelukast 10 mg tablet 10 mg PO DAILY #90 tabs 05/26/24 (Singulair) cholecalciferol (vitamin D3) 25 25 mcg PO DAILY #90 caps 07/13/24 mcg (1,000 unit) capsule famotidine 20 mg tablet 20 mg PO QAM #90 tabs 07/25/24 metoprolol succinate 25 mg capsule 25 mg PO BID #180 ea 07/25/24 sprinkle, ext. release 24 hr pantoprazole 40 mg tablet,delayed 40 mg PO BID #180 tabs 07/25/24 release spironolactone 50 mg tablet 50 mg PO DAILY #90 tabs 07/25/24 tirzepatide 5 mg/0.5 mL 5 mg (0.5 mL) subcut .weekly 4 07/26/24 subcutaneous pen injector weeks #2 mL amoxicillin 875 mg-potassium 1 tab PO BID 7 days #14 tabs 08/08/24 clavulanate 125 mg tablet furosemide 20 mg tablet (Lasix) 20 mg PO DAILY 5 days #5 tabs 08/08/24 prednisone 20 mg tablet 20 mg PO BID 5 days #10 tabs 08/08/24 magnesium oxide 400 mg PO BID #180 tabs 08/17/24 polysaccharide iron complex 150 mg 150 mg PO DAILY #180 caps 08/17/24 iron capsule (Ferrex) buspirone 5 mg tablet 5 mg PO TID PRN anxiety #60 tabs 09/02/24 rivaroxaban 20 mg tablet (Xarelto) 20 mg PO QAM #90 tabs 09/13/24 levothyroxine 25 mcg tablet 25 mcg PO QAM #90 tabs 09/19/24 albuterol sulfate 2.5 mg/3 mL See Rx Instructions .Route 09/21/24 (0.083 %) solution for nebulization .COMPLEX #180 mL furosemide 20 mg tablet 20 mg PO DAILY PRN weight gain #30 09/21/24 tabs Results & Data (ED) Vital Signs Vital Signs - 24 hr 09/22/24 19:21 09/22/24 19:27 09/22/24 19:27 Temperature 36.8 C Temperature Source Oral Pulse Rate 72 69 Pulse Rate [Apical] Pulse Rhythm Regular Pulse Strength Normal Respiratory Rate 22 Respiratory Effort / Characteristics Non-Labored Spontaneous Non-Labored Spontaneous Respiratory Depth Normal Normal Respiratory Pattern Regular Regular Blood Pressure 160/85 H Blood Pressure [Left Arm] Blood Pressure Mean 110 Blood Pressure Mean [Left Arm] Blood Pressure Position Lying Pulse Oximetry 96 Oxygen Delivery Method Nasal Cannula Nasal Cannula Oxygen Flow Rate 2 2 Sepsis Recent Fever Within 48 Hours No Sepsis New/Unexplained Change in Mental Status No Sepsis Action Taken by Nursing No Action Required 09/22/24 19:27 09/22/24 19:32 09/22/24 20:44 Temperature Temperature Source Pulse Rate 67 Pulse Rate [Apical] 70 Pulse Rhythm Regular Pulse Strength Respiratory Rate 24 18 Respiratory Effort / Characteristics Respiratory Depth Respiratory Pattern Blood Pressure Blood Pressure [Left Arm] 120/78 Blood Pressure Mean Blood Pressure Mean [Left Arm] 92 Blood Pressure Position Pulse Oximetry 96 94 94 Oxygen Delivery Method Nasal Cannula Nasal Cannula Nasal Cannula Oxygen Flow Rate 2 2 2 Sepsis Recent Fever Within 48 Hours Sepsis New/Unexplained Change in Mental Status Sepsis Action Taken by Nursing Laboratory Data 09/22/24 19:38 09/22/24 19:38 Lab Results 09/22/24 Range/Units 19:38 WBC 7.30 (4.8-10.8) K/ul RBC 4.90 (4.20-5.40) M/uL Hgb 14.2 (12.0-16.0) g/dl Hct 45.0 (37.0-47.0) % MCV 91.8 (80.0-100.0) fL MCH 29.0 (25.0-34.0) pg MCHC 31.6 L (32.0-36.0) g/dL RDW Std Deviation 46.8 H (36.4-46.3) fL RDW Coeff of Jame 13.7 (11.5-14.5) % Plt Count 220 (130-400) K/uL MPV 9.0 L (9.4-12.4) fL Immature Gran % (Auto) 0.1 % Neut % (Auto) 62.0 % Lymph % (Auto) 22.6 % [place] % (Auto) 8.2 % Eos % (Auto) 6.4 % Baso % (Auto) 0.7 % Neut # (Auto) 4.52 (1.40-6.50) K/uL Lymph # (Auto) 1.65 (1.20-3.40) K/uL [place] # (Auto) 0.60 H (0.11-0.59) K/uL Eos # (Auto) 0.47 (0.00-0.50) K/uL Baso # (Auto) 0.05 (0.00-0.20) K/uL Immature Gran # (Auto) 0.01 (0.01-0.20) K/uL PT 12.9 H (9.0-12.0) Seconds INR 1.2 H (0.9-1.1) VBG pH 7.33 L (7.36-7.41) VBG pCO2 73 H (38-50) mmHg VBG pO2 21 mmHg VBG HCO3 39 mmol/L VBG O2 Saturation < 60.0 % VBG Base Excess 9.6 mEq/L Sodium 142 (136-145) mmol/L Potassium 3.9 (3.5-5.1) mmol/L Chloride 101 (98-107) mmol/L Carbon Dioxide 37 H (21-32) mmol/L Anion Gap 4 (3-11) BUN 15 (6-23) mg/dl Creatinine 1.17 (0.6-1.2) mg/dl Est Cr Clr Drug Dosing 42.9 ml/min eGFR 47.17 BUN/Creatinine Ratio 12.8 (10-20) Glucose 74 (70-99(Fasting)) mg/dl Calcium 9.5 (8.6-10.3) mg/dl Magnesium 2.1 (1.7-2.4) mg/dl Total Bilirubin 0.4 (0.2-1.0) mg/dl AST 13 (13-39) U/L ALT 9 (7-52) U/L Alkaline Phosphatase 76 (34-104) U/L Troponin I High Sens 6.9 (0-14) pg/ml B-Natriuretic Peptide 31 (0-100) pg/ml Total Protein 6.6 (6.0-8.3) gm/dl Albumin 4.1 (3.4-5.0) gm/dl Globulin 2.5 (2.5-4.0) gm/dl Albumin/Globulin Ratio 1.6 (0.9-2) Adenovirus (PCR) Not Detected (NotDetected) B. pertussis DNA (PCR) Not Detected (NotDetected) B.parapertussis DNA PCR Not Detected (NotDetected) C. pneumoniae DNA (PCR) Not Detected (NotDetected) Coronavirus OC43 (PCR) Not Detected (NotDetected) Coronavirus HKU1 (PCR) Not Detected (NotDetected) Coronavirus 229E (PCR) Not Detected (NotDetected) SARS-CoV-2 (PCR) DETECTED A (NotDetected) Coronavirus NL63 (PCR) Not Detected (NotDetected) Human Metapneumovir PCR Not Detected (NotDetected) Influenza Type A (PCR) Not Detected (NotDetected) Influenza Type B (PCR) Not Detected (NotDetected) M. pneumoniae (PCR) Not Detected (NotDetected) Parainfluenza 1 (PCR) Not Detected (NotDetected) Parainfluenza 2 (PCR) Not Detected (NotDetected) Parainfluenza 3 (PCR) Not Detected (NotDetected) Parainfluenza 4 (PCR) Not Detected (NotDetected) RSV (PCR) Not Detected (NotDetected) Entero/Rhino (PCR) Not Detected (NotDetected) Administered Medications Discontinued Medications Albuterol (Albut/Ipratrop 3mg/0.5mg Neb 3 Ml Vial) 12 ml NEB ONE ONE; Protocol Stop: 09/22/24 19:25 Last Admin: 09/22/24 19:43 Dose: 12 ml Documented By: TONNY Methylprednisolone (Methylprednisolone 125 Mg/2 Ml Vial) 60 mg IV NOW STA Stop: 09/22/24 19:25 Last Admin: 09/22/24 19:40 Dose: 60 mg Documented By: TONNY Imaging Data Radiologist's Impression: Chest X-Ray 09/22/24 19:24 Exam(s): XR CXR 1 VIEW EXAM: XR Chest, 1 View CLINICAL HISTORY: Dyspnea. TECHNIQUE: Frontal view of the chest. COMPARISON: Portable chest single view 10/25/2023 FINDINGS: Lungs: No focal airspace consolidation, accounting for prominent overlying soft tissues. The pulmonary vasculature demonstrates no evidence for florid CHF. Pleural space: Unremarkable. No pneumothorax. No large pleural effusion. Heart: Cardiac silhouette is stable. Mediastinum: The mediastinal contours are stable, accounting for similar lordotic technique. Similar calcification and mild tortuosity of the descending aorta. The trachea is midline. Bones/joints: Unremarkable. No acute fracture. IMPRESSION: No acute cardiopulmonary process or significant alteration from the prior examination. Electronically signed by: Dawood Birch MD 09/22/24 20:24 PM Discharge Plan Visit Data Chief Complaint: Shortness of Breath/Dyspnea Stated Complaint: SOB ED Provider: Van Peralta Discharge Problem: Acute exacerbation of chronic obstructive pulmonary disease, COVID-19 Patient Disposition: Being Evaluated by Hospitalist Forms Stand Alone Forms: [facility] Prescriptions Prescriptions: No Action (DME) Oxygen Home Liters Per Minute See Rx Instructions .Route Rx Instructions: As directed- 2lpm all the time budesonide 0.5 mg/2 mL suspension for nebulization 0.5 mg inhalation BID Qty: 180 4RF ipratropium-albuterol 0.5 mg-3 mg(2.5 mg base)/3 mL solution for nebulization 3 ml inhalation Q8H PRN (Reason: shortness of breath or wheezing) Qty: 540 2RF revefenacin 175 mcg/3 mL solution for nebulization 175 mcg inhalation DAILY Qty: 90 3RF arformoterol [Brovana] 15 mcg/2 mL solution for nebulization 2 ml inhalation BID Qty: 360 4RF insulin glargine [Lantus Solostar U-100 Insulin] 100 unit/mL (3 mL) insulin pen 17 unit SUBCUT HS (DME) nebulizer and compressor Device See Rx Instructions .Route Qty: 1 0RF Rx Instructions: UTILIZE BID PRN azithromycin 500 mg tablet 500 mg PO 3XWK 30 Days Qty: 30 3RF Rx Instructions: take 1 tab 3 times per week (Mon, Wed, Fri) (DME) Contour Test Strips Strip See Rx Instructions .Route Qty: 100 11RF Rx Instructions: As directed fluticasone propionate 50 mcg/actuation spray,suspension 1 spray INTRANASAL DAILY Qty: 16 5RF (DME) pen needle, diabetic [Easy Comfort Pen [place]] 32 gauge x 5/32" needle See Rx Instructions .Route Qty: 200 3RF Rx Instructions: dx e11.9 check BS up to 4 x day montelukast [Singulair] 10 mg tablet 10 mg PO DAILY Qty: 90 3RF spironolactone 50 mg tablet 50 mg PO DAILY Qty: 90 1RF famotidine 20 mg tablet 20 mg PO QAM Qty: 90 1RF pantoprazole 40 mg tablet,delayed release (DR/EC) 40 mg PO BID Qty: 180 1RF metoprolol succinate 25 mg capsule,sprinkle,ER 24hr 25 mg PO BID Qty: 180 1RF Mounjaro 5 mg/0.5 mL pen injector 5 mg subcut .weekly 28 Days Qty: 2 2RF polysaccharide iron complex [Ferrex 150] 150 mg iron capsule 150 mg PO DAILY Qty: 180 1RF magnesium oxide 400 mg magnesium tablet 400 mg PO BID Qty: 180 1RF buspirone 5 mg tablet 5 mg PO TID PRN (Reason: anxiety) Qty: 60 1RF Xarelto 20 mg tablet 20 mg PO QAM Qty: 90 1RF levothyroxine 25 mcg tablet 25 mcg PO QAM Qty: 90 1RF albuterol sulfate 2.5 mg /3 mL (0.083 %) solution for nebulization See Rx Instructions .ROUTE .COMPLEX Qty: 180 5RF Dose Instruction: INHALE ONE VIAL VIA NEBULIZER EVERY 4 HOURS NEEDED FOR SHORTNESS OF BREATH OR WHEEZING Rx Instructions: INHALE ONE VIAL VIA NEBULIZER EVERY 4 HOURS NEEDED FOR SHORTNESS OF BREATH OR WHEEZING furosemide 20 mg tablet 20 mg PO DAILY PRN (Reason: weight gain) Qty: 30 2RF (DME) Portable Oxygen Misc See Rx Instructions .Route Qty: 1 0RF Rx Instructions: As directed- Wear at 2 Lpm N/C. insulin lispro [Humalog KwikPen Insulin] 100 unit/mL insulin pen 12 unit SUBCUT DAILY cholecalciferol (vitamin D3) 25 mcg (1,000 unit) capsule 25 mcg PO DAILY Qty: 90 2RF Jardiance 25 mg tablet 25 mg PO DAILY Qty: 90 3RF (DME) FreeStyle Jessica 3 Gladys Misc See Rx Instructions .Route Qty: 3 3RF Rx Instructions: As directed (DME) FreeStyle Jessica 3 Sensor Device See Rx Instructions .Route Qty: 3 3RF Rx Instructions: As directed prednisone 20 mg tablet 20 mg PO BID 5 Days Qty: 10 0RF amoxicillin-pot clavulanate 875-125 mg tablet 1 tab PO BID 7 Days Qty: 14 0RF furosemide [Lasix] 20 mg tablet 20 mg PO DAILY 5 Days Qty: 5 0RF Rx Instructions: Take in the early afternoon. Continue morning dose of 20 mg. quetiapine 200 mg Tablet 200 mg PO HS mirtazapine 30 mg tablet 30 mg PO HS escitalopram oxalate 10 mg Tablet 15 mg PO QAM albuterol sulfate 90 mcg/actuation HFA aerosol inhaler 2 puff INHALATION BID PRN (Reason: Wheezing/SOB) roflumilast [Daliresp] 500 mcg tablet 500 mcg PO QAM cyanocobalamin (vitamin B-12) [Vitamin B-12] 1,000 mcg tablet 1,000 mcg PO DAILY guaifenesin [Mucinex] 1,200 mg tablet extended release 12hr 1,200 mg PO BID Referrals Referrals: Dawood Rincon CRNP [Primary Care Provider] -
[2024-09-22 19:56] LABS: Base Excess VBG 9.6 mEq/L; HCO3 VBG 39 mmol/L; Oxygen Saturation VBG < 60.0 %; PCO2 VBG 73 mmHg (38-50); PO2 VBG 21 mmHg; pH VBG 7.33 (7.36-7.41)
[2024-09-22 19:58] LABS: Basophils # (auto) 0.05 K/uL (0.00-0.20); Basophils % (auto) 0.7 %; Eosinophils # (auto) 0.47 K/uL (0.00-0.50); Eosinophils % (auto) 6.4 %; Hemoglobin 14.2 g/dl (12.0-16.0); Immature Granulocytes # (auto) 0.01 K/uL (0.01-0.20); Immature Granulocytes % (auto) 0.1 %; Lymphocytes # (auto) 1.65 K/uL (1.20-3.40); Lymphocytes % (auto) 22.6 %; Mean Corpuscular Hgb Conc 31.6 g/dL (32.0-36.0); Mean Corpuscular Volume 91.8 fL (80.0-100.0); Monocytes % (auto) 8.2 %; Neutrophils # (auto) 4.52 K/uL (1.40-6.50); Platelet Count 220 K/uL (130-400); RDW Coefficient of Variation 13.7 % (11.5-14.5); RDW Standard Deviation 46.8 fL (36.4-46.3)
[2024-09-22 20:11] LABS: Albumin Globulin Ratio 1.6 (0.9-2); Albumin Level 4.1 gm/dl (3.4-5.0); BUN Creatinine Ratio 12.8 (10-20); Bilirubin,Total 0.4 mg/dl (0.2-1.0); Calcium 9.5 mg/dl (8.6-10.3); Creatinine Clr Calc Pharmacy 42.9 ml/min; Globulin 2.5 gm/dl (2.5-4.0); Magnesium 2.1 mg/dl (1.7-2.4); Potassium 3.9 mmol/L (3.5-5.1); Total Protein 6.6 gm/dl (6.0-8.3)
[2024-09-22 20:18] LABS: Troponin I High Sensitivity 6.9 pg/ml (0-14)
[2024-09-22 20:20] LABS: INR 1.2 (0.9-1.1); Prothrombin Time 12.9 Seconds (9.0-12.0)
--- NOTE | 2024-09-22 20:24 | XRay Report ---
Exam(s): XR CXR 1 VIEW EXAM: XR Chest, 1 View CLINICAL HISTORY: Dyspnea. TECHNIQUE: Frontal view of the chest. COMPARISON: Portable chest single view 10/25/2023 FINDINGS: Lungs: No focal airspace consolidation, accounting for prominent overlying soft tissues. The pulmonary vasculature demonstrates no evidence for florid CHF. Pleural space: Unremarkable. No pneumothorax. No large pleural effusion. Heart: Cardiac silhouette is stable. Mediastinum: The mediastinal contours are stable, accounting for similar lordotic technique. Similar calcification and mild tortuosity of the descending aorta. The trachea is midline. Bones/joints: Unremarkable. No acute fracture. IMPRESSION: No acute cardiopulmonary process or significant alteration from the prior examination. Electronically signed by: Dawood Birch MD 09/22/24 20:24 PM
[2024-09-22 21:03] LABS: Adenovirus PCR Not Detected (NotDetected); Bordetella parapertussis PCR Not Detected (NotDetected); Bordetella pertussis PCR Not Detected (NotDetected); Chlamydia pneumoniae PCR Not Detected (NotDetected); Coronavirus 229E PCR Not Detected (NotDetected); Coronavirus CoV-2 (COVID19)PCR DETECTED (NotDetected); Coronavirus HKU1 PCR Not Detected (NotDetected); Coronavirus NL63 PCR Not Detected (NotDetected); Coronavirus OC43PCR Not Detected (NotDetected); Human Metapneumovirus PCR Not Detected (NotDetected); Influenza A PCR Not Detected (NotDetected); Influenza B PCR Not Detected (NotDetected); Mycoplasma pneumoniae PCR Not Detected (NotDetected); Parainfluenza Virus 1 PCR Not Detected (NotDetected); Parainfluenza Virus 2 PCR Not Detected (NotDetected); Parainfluenza Virus 3 PCR Not Detected (NotDetected); Parainfluenza Virus 4 PCR Not Detected (NotDetected); Respiratory Syncytial VirusPCR Not Detected (NotDetected); Rhinovirus/Enterovirus PCR Not Detected (NotDetected)
--- NOTE | 2024-09-22 21:58 | History & Physical Report ---
Date of Service September 22, 2024 Assessment & Plan (1) Acute exacerbation of chronic obstructive pulmonary disease: (2) COVID-19: Plan 79-year-old female PMHx T2DM insulin-dependent, COPD, hypothyroidism, A-fib on rivaroxaban, CHF, HTN, GERD, prior PE, KATHLEEN, MDD, and history of breast cancer (right) presenting to ED via EMS for shortness of breath and anxiety x 1 day. Patient wears 2L NC at baseline. Unclear if infectious vs COVID vs COPD. CXR w/o acute findings, BNP WNL, no leukocytosis. Pt reports to CYNDI on admission that earlier in the week she was diagnosed with COVID-19. Home meds appear to show recent Azithromycin rx (09/15/2024) x 3 days. #Acute on chronic respiratory failure with hypoxia/COPD exacerbation/COVID-19 Presenting w/ shortness of breath x 1 day, worsening around dinnertime day of arrival; Hypoxic on admission, currently 94% on 2L O2 via NC (baseline). Likely 2/2 combination of COPD exacerbation + COVID. Reportedly dx with COVID earlier during week of admission. Is on anticoag for Afib + w/ h/o PE however, having L calf pain and LLE swelling. At this time, treating as COPD exac. w/ conjunction of COVID. Recently seen by PCP for SOB suspected related to multifactorial. - CBC w/o leukocytosis, VBGs suggestive of resp acidosis (pH 7.33, pCO2 73), CO2 37, no AG; CXR no acute cardiopulmonary process alterations from prior examinations - 2L O2 at baseline rest 4L w/ activity; O2 prn; Wean as patient tolerates - COVID precautions - DuoNebs jonny, budesonide + formoterol nebs BID; IC; Dexamethasone 6mg daily - No antivirals added at admission given uncertain duration of symptoms; Given recent abx use, no leukocytosis, and no infectious symptoms, no additional abx added at admission - Pending Venous Doppler LLE #A-fib on Xarelto/CHF/HTN Previous history of Afib during prior hospitalization - EKG on admission NSR and rate controlled, telemetry w/o evidence of such - Echo 09/2022 grossly WNL; Mg 2.1 - Anticoag w/ Xarelto; Rate controlled metoprolol; CHF on spironolactone + lasix (prn) #T2DM H/o DMT2, insulin dependent - At home regimen Humalog 12 U TID, Lantus 15 U HS, Tirzepatide, jardiance - Hold po/SQ meds - Most recent A1C 06/2024 @ 8.2% - SSI with target BSG range 110-140mg/dL, CF 25, carb ratio 10; Lantus 15 U HS - BSG ACHS - Pharm glycemic management consult placed - appreciate assistance #MDD- Lexapro, mirtazapine, quetiapine #GERD- Pantoprazole, famotidine #Hypothyroidism- Levothyroxine Dispo: Admit VTE prophylaxis: Xarelto This document was dictated utilizing ZEFR. Please excuse any grammatical errors that may be secondary to use of this software. Admission and Anticipated Discharge Date Admission Date: 09/22/2024 History of Present Illness Chief Complaint: SOB Primary Care Provider: DANIELA Fontana 79-year-old female PMHx T2DM insulin-dependent, COPD, hypothyroidism, A-fib on rivaroxaban, CHF, HTN, GERD, prior PE, KATHLEEN, MDD, and history of breast cancer (right) presenting to ED via EMS for shortness of breath and anxiety. Patient wears 2L NC at baseline. States that today all day she has been experiencing difficulty with breathing, but around dinnertime she noticed a sudden increase which caused her more anxiety and she felt as though she was going to suffocate. Does admit to feeling feverish x 1 day but has not taken her temperature. Denying coughing, URI symptoms, or chest pain/pressure. States otherwise she h as been feeling fine with exception of her left calf causing her pain earlier today, stating that it felt very hard and is more swollen than the right side. Also admits that second on left foot feels slightly numb. Denying chest pain, palpitations, abdominal pain, N/V/D/C, LUTS, additional numbness/tingling, or headache. Earlier in the week patient believes that she had a "GI illness" and was told she had COVID at that time. Patient took all a.m. medications. Please see Dr. Gonzalez's attestation for adjustments/additions to treatment plan. Allergies Allergy/AdvReac Type Severity Reaction Status Date / Time rabies vaccine, duck-embryo Allergy Severe HIVES Verified 08/08/24 11:34 ragweed pollen Allergy Unknown UNKNOWN Verified 08/08/24 11:34 tomato Allergy Unknown HIVES Verified 08/08/24 11:34 Home Medications Medication Instructions Recorded Confirmed Type escitalopram oxalate 10 mg tablet 15 mg PO QAM 02/10/19 09/22/24 History mirtazapine 30 mg tablet 30 mg PO HS 02/10/19 09/22/24 History quetiapine 200 mg tablet 200 mg PO HS 02/10/19 09/22/24 History Oxygen Home 11/18/22 07/13/24 History budesonide 0.5 mg/2 mL suspension 0.5 mg (2 mL) inhalation BID #180 09/28/23 09/22/24 Rx for nebulization mL ipratropium 0.5 mg-albuterol 3 mg 3 ml inhalation Q8H PRN shortness 09/28/23 08/08/24 Rx (2.5 mg base)/3 mL nebulization of breath or wheezing #540 mL soln revefenacin 175 mcg/3 mL solution 175 mcg (3 mL) inhalation DAILY 09/28/23 09/22/24 Rx for nebulization #90 mL albuterol sulfate 90 mcg/actuation 2 puff inhalation BID PRN 10/25/23 09/22/24 History aerosol inhaler Wheezing/SOB insulin lispro 100 unit/mL 12 unit subcut DAILY 11/13/23 09/22/24 History subcutaneous pen (Humalog KwikPen (U-100) Insulin) arformoterol 15 mcg/2 mL solution 2 ml inhalation BID #360 mL 11/17/23 09/22/24 Rx for nebulization (B[place]) Portable Oxygen #1 ea 12/22/23 07/13/24 Rx cyanocobalamin (vitamin B-12) 1,000 mcg PO DAILY 12/22/23 09/22/24 History 1,000 mcg tablet (Vitamin B-12) insulin glargine 100 unit/mL (3 17 unit subcut HS 12/28/23 09/22/24 History mL) subcutaneous pen (Lantus Solostar U-100 Insulin) nebulizer and compressor #1 ea 01/29/24 07/13/24 Rx blood sugar diagnostic (Contour #100 ea 03/31/24 07/13/24 Rx Test Strips) fluticasone propionate 50 1 spray intranasal DAILY #16 grams 04/05/24 09/22/24 Rx mcg/actuation nasal spray,suspension pen needle, diabetic 32 gauge x #200 ea 05/03/24 07/13/24 Rx 5/32" (Easy Comfort Pen [place]) blood-glucose meter,continuous #3 ea 05/26/24 07/13/24 Rx (FreeStyle Jessica 3 [place]) blood-glucose sensor (FreeStyle #3 ea 05/26/24 07/13/24 Rx Jessica 3 Sensor device) empagliflozin 25 mg tablet 25 mg PO DAILY #90 tabs 05/26/24 09/22/24 Rx cholecalciferol (vitamin D3) 25 25 mcg PO DAILY #90 caps 07/13/24 09/22/24 Rx mcg (1,000 unit) capsule famotidine 20 mg tablet 20 mg PO QAM #90 tabs 07/25/24 09/22/24 Rx metoprolol succinate 25 mg capsule 25 mg PO BID #180 ea 07/25/24 09/22/24 Rx sprinkle, ext. release 24 hr pantoprazole 40 mg tablet,delayed 40 mg PO BID #180 tabs 07/25/24 09/22/24 Rx release spironolactone 50 mg tablet 50 mg PO DAILY #90 tabs 07/25/24 09/22/24 Rx tirzepatide 5 mg/0.5 mL 5 mg (0.5 mL) subcut .weekly 4 07/26/24 09/22/24 Rx subcutaneous pen injector weeks #2 mL magnesium oxide 400 mg PO BID #180 tabs 08/17/24 09/22/24 Rx polysaccharide iron complex 150 mg 150 mg PO DAILY #180 caps 08/17/24 09/22/24 Rx iron capsule (Ferrex) buspirone 5 mg tablet 5 mg PO TID PRN anxiety #60 tabs 09/02/24 09/22/24 Rx rivaroxaban 20 mg tablet (Xarelto) 20 mg PO QAM #90 tabs 09/13/24 09/22/24 Rx levothyroxine 25 mcg tablet 25 mcg PO QAM #90 tabs 09/19/24 09/22/24 Rx albuterol sulfate 2.5 mg/3 mL See Rx Instructions .Route 09/21/24 09/22/24 Rx (0.083 %) solution for nebulization .COMPLEX #180 mL furosemide 20 mg tablet 20 mg PO DAILY PRN weight gain #30 09/21/24 09/22/24 Rx tabs azithromycin 500 mg tablet mg 09/22/24 History montelukast 10 mg tablet 10 mg PO HS 09/22/24 09/22/24 History (Singulair) Past Med/Surg History Problem List COVID-19 (Acute) Acute exacerbation of chronic obstructive pulmonary disease (Acute) Anticoagulant long-term use Insulin dependent type 2 diabetes mellitus Type 2 diabetes mellitus Diabetic retinopathy Anemia (Acute) Panic attack as reaction to stress Constipation Chronic bronchitis VIJAY (obstructive sleep apnea) Atelectasis Hypothyroidism History of pulmonary embolism Atrial fibrillation Hypersomnolence disorder, persistent, mild Chronic respiratory failure with hypoxia Morbid obesity COPD with emphysema Obesity hypoventilation syndrome Breast cancer, right breast Shingles Hypertension (Chronic) CHF (congestive heart failure) (Chronic) GERD (gastroesophageal reflux disease) (Chronic) KATHLEEN (generalized anxiety disorder) (Chronic) Major depression, recurrent, full remission (Chronic) Medical History Hyponatremia Syncope Septic thrombophlebitis QT prolongation GI bleed Endocarditis Hypoxia Air hunger RSV (respiratory syncytial virus infection) Acute exacerbation of chronic obstructive pulmonary disease Acute on chronic respiratory failure with hypoxia and hypercapnia Acute and chronic respiratory failure with hypoxia Acute on chronic combined systolic (congestive) and diastolic (congestive) heart failure SOB (shortness of breath) COPD exacerbation Spinal abscess MSSA (methicillin susceptible Staphylococcus aureus) septicemia Surgical History H/O tooth extraction removal of all teeth History of lumpectomy Family History Mother Breast cancer Coronary heart disease Myocardial infarction Father Coronary heart disease Myocardial infarction Stroke Denies family history of Ovarian cancer Prostate cancer Colorectal cancer Social History Smoking Status: Former smoker Tobacco Type: Cigarettes Age Started Using Tobacco: 15; Age Quit Using Tobacco: 66; packs per day: 2; Second Hand Exposure: No; Do You Dip or Chew Tobacco: No; Hx Alcohol Use: No Hx Substance Use: No Preferred Language: Indonesian Communication Ability: Effective Prefitter Doors Required: No Beliefs That Will Affect Care: None marital status: Single Current Living Situation: Alone Current Living Situation 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 No cyanosis or clubbing; Excoriation L de [place] torre Head: Normocephalic, atraumatic Eyes: PERRL, conjunctivae clear, sclera non-icteric; EOM intact ENT: External ear and ear canal without swelling; nose atraumatic Neck: Supple, no LAD Cardio: RRR, no M/G/R, S1 and S2 normal Resp: No respiratory distress, expiratory wheezing and diminished BS but no overt rales or rhonchi appreciated Abdomen: Soft, symmetric, nontender; no distention; No masses or hepatosplenomegaly; Bowel sounds normoactive MSK: No deformities, full ROM throughout; pulses palpable and equal; 1+ pitting edema BLE, L > R side, slight calf tenderness LLE, no palpable cord. Neuro: Awake, alert; CN grossly intact Psych: Appropriate mood and affect; good judgement and insight. Results & Data Results & Data Vital Signs (Past 12 Hours) Vital Signs Temp Pulse Pulse Resp BP BP Pulse Ox 09/22/24 20:44 70 18 120/78 94 09/22/24 19:32 67 24 94 09/22/24 19:27 96 09/22/24 19:27 36.8 C 69 22 160/85 H 96 09/22/24 19:27 09/22/24 19:21 72 O2 Del Method O2 Flow Rate 09/22/24 20:44 Nasal Cannula 2 09/22/24 19:32 Nasal Cannula 2 09/22/24 19:27 Nasal Cannula 2 09/22/24 19:27 Nasal Cannula 2 09/22/24 19:27 Nasal Cannula 2 09/22/24 19:21 Laboratory Results 09/22/24 19:38 WBC 7.30 RBC 4.90 Hgb 14.2 Hct 45.0 MCV 91.8 MCH 29.0 MCHC 31.6 L RDW Std Deviation 46.8 H RDW Coeff of Jame 13.7 Plt Count 220 MPV 9.0 L Immature Gran % (Auto) 0.1 Neut % (Auto) 62.0 Lymph % (Auto) 22.6 [place] % (Auto) 8.2 Eos % (Auto) 6.4 Baso % (Auto) 0.7 Neut # (Auto) 4.52 Lymph # (Auto) 1.65 [place] # (Auto) 0.60 H Eos # (Auto) 0.47 Baso # (Auto) 0.05 Immature Gran # (Auto) 0.01 PT 12.9 H INR 1.2 H VBG pH 7.33 L VBG pCO2 73 H VBG pO2 21 VBG HCO3 39 VBG O2 Saturation < 60.0 VBG Base Excess 9.6 Sodium 142 Potassium 3.9 Chloride 101 Carbon Dioxide 37 H Anion Gap 4 BUN 15 Creatinine 1.17 Est Cr Clr Drug Dosing 42.9 eGFR 47.17 BUN/Creatinine Ratio 12.8 Glucose 74 Calcium 9.5 Magnesium 2.1 Total Bilirubin 0.4 AST 13 ALT 9 Alkaline Phosphatase 76 Troponin I High Sens 6.9 B-Natriuretic Peptide 31 Total Protein 6.6 Albumin 4.1 Globulin 2.5 Albumin/Globulin Ratio 1.6 Adenovirus (PCR) Not Detected B. pertussis DNA (PCR) Not Detected B.parapertussis DNA PCR Not Detected C. pneumoniae DNA (PCR) Not Detected Coronavirus OC43 (PCR) Not Detected Coronavirus HKU1 (PCR) Not Detected Coronavirus 229E (PCR) Not Detected SARS-CoV-2 (PCR) DETECTED A Coronavirus NL63 (PCR) Not Detected Human Metapneumovir PCR Not Detected Influenza Type A (PCR) Not Detected Influenza Type B (PCR) Not Detected M. pneumoniae (PCR) Not Detected Parainfluenza 1 (PCR) Not Detected Parainfluenza 2 (PCR) Not Detected Parainfluenza 3 (PCR) Not Detected Parainfluenza 4 (PCR) Not Detected RSV (PCR) Not Detected Entero/Rhino (PCR) Not Detected Diagnostic Findings Chest X-Ray 09/22/24 19:24 Exam(s): XR CXR 1 VIEW EXAM: XR Chest, 1 View CLINICAL HISTORY: Dyspnea. TECHNIQUE: Frontal view of the chest. COMPARISON: Portable chest single view 10/25/2023 FINDINGS: Lungs: No focal airspace consolidation, accounting for prominent overlying soft tissues. The pulmonary vasculature demonstrates no evidence for florid CHF. Pleural space: Unremarkable. No pneumothorax. No large pleural effusion. Heart: Cardiac silhouette is stable. Mediastinum: The mediastinal contours are stable, accounting for similar lordotic technique. Similar calcification and mild tortuosity of the descending aorta. The trachea is midline. Bones/joints: Unremarkable. No acute fracture. IMPRESSION: No acute cardiopulmonary process or significant alteration from the prior examination. Electronically signed by: Dawood Birch MD 09/22/24 20:24 PM Medications Administered Albuterol 12mL neb Methylprednisolone 60mg IV ECG Additional Comments: Normal sinus rhythm 69 bpm, WI 202, QRS 75, QT/QTc 394/422, PRT 73/-3/45 Code Status & VTE Plan Code Status Full VTE Prophylaxis Plan VTE Prophylaxis will be ordered: Yes Supervising Physician Co-Signing Physician Notes Patient seen and examined, chart reviewed, case discussed with CYNDI Horowitz and I agree with the assessment and plan as above PG Care Time/CCT Total # of Minutes Spent Total Time Spent with Patient: Total time spent is greater than 50% in coordination of care (as documented) at patient's floor/unit and/or counseling patient: Coding Level of Care Code 00308 INT INP/OBS CARE 3/75MIN Diagnoses Acute exacerbation of chronic obstructive pulmonary disease J44.1 COVID-19 U07.1
[2024-09-22] MEDS ORDERED: CARBOHYDRATES FOR HYPOGLYCEMIA PO PRN (23:28)
[2024-09-22] MEDS ORDERED: PHARMACY GLYCEMIC MGMT CONSULT PRN (23:28)
[2024-09-22] MEDS ORDERED: GLUCOSE 40% GEL 15 GM TUBE PO PRN (23:28)
[2024-09-22] MEDS ORDERED: GLUCAGON FOR INJ 1 MG VIAL SQ PRN (23:28)
[2024-09-22] MEDS ORDERED: GLUCOSE 10 TAB/TUBE PO PRN (23:28)
[2024-09-22] MEDS ORDERED: DEXTROSE 50% 50 ML SYRINGE IV PRN (23:28)
[2024-09-22 23:47] LABS: Appearance Urine Clear (Clear); Bilirubin Urine Negative (Negative); Blood Urine Negative (Negative); Color Urine Yellow; Glucose Urine UA 3+ (Negative); Ketones Urine Negative (Negative); Leukocyte Esterase Urine Negative (Negative); Nitrite Urine Negative (Negative); Protein Urine Negative (Negative); Specific Gravity Urine 1.016 (1.000-1.030); Urobilinogen Urine Negative (Negative); pH Urine 5.5 (4.5-7.5)
--- NOTE | 2024-09-23 00:46 | Ultrasound Report ---
Exam(s): US VENOUS LEFT LOWER EXTREMITY EXAM: US Duplex Left Lower Extremity Veins CLINICAL HISTORY: Calf pain, LLE swelling > RLE. TECHNIQUE: Real-time duplex ultrasound scan of the left lower extremity veins integrating B-mode two-dimensional vascular structure, Doppler spectral analysis, color flow Doppler imaging and compression. COMPARISON: No relevant prior studies available. FINDINGS: Deep veins: Unremarkable. No DVT in the visualized common femoral, femoral, proximal deep femoral or popliteal veins. The veins demonstrate normal color flow, are normally compressible, with normal phasic flow and/or augmentation response. The interrogated calf veins are patent. Superficial veins: Unremarkable. No thrombus in the saphenofemoral junction. Soft tissues: Subcutaneous edema noted at the calf. No loculated fluid collection. No popliteal cyst. IMPRESSION: 1. No evidence for deep vein thrombosis involving the left lower extremity. 2. Subcutaneous edema at the calf. Electronically signed by: Dawood Birch MD 09/23/24 00:45 AM
[2024-09-23] MEDS: ALBUTEROL 0.083% NEBU SOLN 3 ML VIAL NEB SCH (03:24)
[2024-09-23] MEDS: INSULIN ASPART PER UNIT CHARGE SC SCH ×2 (05:13→09:48)
[2024-09-23] MEDS: LEVOTHYROXINE SODIUM 25 MCG TABLET PO SCH (06:42)
[2024-09-23] MEDS: FORMOTEROL 20 MCG/2 ML VIAL INH SCH (07:14)
[2024-09-23] MEDS: BUDESONIDE 0.5 MG/2 ML VIAL (PULMICORT) NEB SCH (07:14)
[2024-09-23 09:09] LABS: Hematocrit (blood only) 42.1 % (37.0-47.0); Hemoglobin 13.3 g/dl (12.0-16.0); Mean Corpuscular Hemoglobin 28.1 pg (25.0-34.0); Mean Corpuscular Hgb Conc 31.6 g/dL (32.0-36.0); Mean Corpuscular Volume 88.8 fL (80.0-100.0); Mean Platelet Volume 8.8 fL (9.4-12.4); Platelet Count 220 K/uL (130-400); RDW Coefficient of Variation 13.7 % (11.5-14.5); RDW Standard Deviation 44.5 fL (36.4-46.3); Red Blood Count 4.74 M/uL (4.20-5.40); White Blood Count 7.72 K/ul (4.8-10.8)
[2024-09-23 09:20] LABS: BUN Creatinine Ratio 19.8 (10-20); C Reactive Protein 1.03 mg/dl (0-0.5); Calcium 9.5 mg/dl (8.6-10.3); Creatinine Clr Calc Pharmacy 55.1 ml/min; Potassium 4.6 mmol/L (3.5-5.1)
[2024-09-23] MEDS: dexAMETHasone 6 MG in SYRINGE 0 ML IV SCH (09:47)
[2024-09-23] MEDS: DEXAMETHASONE SOD INJ 4 MG/ML VIAL ONE (09:47)
[2024-09-23] MEDS: FLUTICASONE PROPIONATE NA SPR 16 GM BTL SCH (09:48)
[2024-09-23] MEDS: METOPROLOL SUCC 25MG EXT REL TAB PO SCH (09:49)
[2024-09-23] MEDS: PANTOprazole 40 MG TAB PO SCH (09:49)
[2024-09-23] MEDS: ESCITALOPRAM OXALATE 10 MG TAB PO SCH (09:50)
[2024-09-23] MEDS: FAMOTIDINE 20 MG TAB PO SCH (09:51)
[2024-09-23] MEDS: IRON POLYSACCHARIDE COMPLEX 150 MG CAPSULE PO SCH (09:52)
[2024-09-23] MEDS: CHOLECALCIFEROL 25 MCG (1000 UNITS) TAB PO SCH (09:52)
[2024-09-23] MEDS: SPIRONOLACTONE 25 MG TAB PO SCH (09:52)
[2024-09-23] MEDS: MAGNESIUM OXIDE 400 MG TAB PO SCH (09:53)
[2024-09-23] MEDS: busPIRone 5 MG TAB PO PRN (11:45)
--- NOTE | 2024-09-23 14:27 | Pharmacy Report ---
Pharmacy Glycemic Short Note 2 - Date of Service September 23, 2024 - Glycemic Short BSG Results (Last 24 hours): 09/22/24 09/23/24 09/23/24 19:38 00:26 05:03 Glucose 74 POC Glucose 156 H 179 H 09/23/24 09/23/24 09/23/24 08:44 08:57 11:48 Glucose 134 H POC Glucose 130 H 150 H OUTPATIENT ANTIDIABETIC REGIMEN: * Glargine 17 u HS, lispro 12 u daily and tirzepatide 5 mg weekly * Last A1c was 8.2 recorded on 07/05/24 ASSESSMENT: * 79 yo F w/PMH of COPD, Afib, HTN, CHF, GERD, T2DM in which pharmacy has been consulted for glycemic management * Pt's BSG has ranged from 74 to 179 since admission * Pt is receiving IV steroids which may further elevate glucose * Will use stress factor closer to a 3 for Novolog and dose Lantus close to pt's home dose PLAN FOR INPATIENT GLYCEMIC CONTROL: * Hold outpatient oral diabetes medications * Basal insulin * Lantus 15 units SQ HS * Bolus insulin * NovoLog per scale ACHS or Q6hrs while NPO * Goal Range: Low 110 mg/dL - High 140 mg/dL * Correction Factor: 25 mg/dL/unit * Nutritional / Prandial insulin per carb ratio of 1 unit per 6 grams CHO consumed
--- NOTE | 2024-09-23 16:30 | Hospitalist Progress Note ---
Date of Service September 23, 2024 Assessment & Plan (1) Acute exacerbation of chronic obstructive pulmonary disease: (2) COVID-19: Plan 79-year-old female PMHx T2DM insulin-dependent, COPD, hypothyroidism, A-fib on rivaroxaban, CHF, HTN, GERD, prior PE, KATHLEEN, MDD, and history of breast cancer (right) presenting to ED via EMS for shortness of breath and anxiety x 1 day. Patient wears 2L NC at baseline. Unclear if infectious vs COVID vs COPD. CXR w/o acute findings, BNP WNL, no leukocytosis. Pt reports to CYNDI on admission that earlier in the week she was diagnosed with COVID-19. Home meds appear to show recent Azithromycin rx (09/15/2024) x 3 days. #Acute on chronic respiratory failure with hypoxia/COPD exacerbation/COVID-19 Presenting w/ shortness of breath x 1 day, worsening around dinnertime day of arrival; Hypoxic on admission. Likely 2/2 combination of COPD exacerbation + COVID. Reportedly dx with COVID earlier during week of admission. Is on anticoag for Afib + w/ h/o PE however, having L calf pain and LLE swelling. At this time, treating as COPD exac. w/ conjunction of COVID. Recently seen by PCP for SOB suspected related to multifactorial. - VBGs suggestive of resp acidosis (pH 7.33, pCO2 73), CO2 37, no AG -CBC w/o leukocytosis. BMP w/ stable electrolytes/kidney function - CXR no acute cardiopulmonary process alterations from prior examinations - 2L O2 at baseline rest 4L w/ activity; O2 prn; Wean as patient tolerates - COVID precautions - DuoNebs jonny, budesonide + formoterol nebs BID; IC; Dexamethasone 6mg daily - Given recent abx use, no leukocytosis, and no infectious symptoms, no additional abx added at admission - Venous Doppler LLE negative for DVT #A-fib on Xarelto/CHF/HTN Previous history of Afib during prior hospitalization - EKG on admission NSR and rate controlled - Echo 09/2022 grossly WNL; Mg 2.1 - Anticoag w/ Xarelto; Rate controlled metoprolol - CHF on spironolactone + lasix (prn) #T2DM H/o DMT2, insulin dependent - At home regimen Humalog 12 U TID, Lantus 15 U HS, Tirzepatide, jardiance - Hold po/SQ meds - Most recent A1C 06/2024 @ 8.2% - SSI with target BSG range 110-140mg/dL, CF 25, carb ratio 10; Lantus 15 U HS - BSG ACHS - Pharm glycemic management consult placed - appreciate assistance Chronic conditions: #MDD- Lexapro, mirtazapine, quetiapine #GERD- Pantoprazole, famotidine #Hypothyroidism- Levothyroxine Dispo: Admit VTE prophylaxis: Xarelto Admission and Anticipated Discharge Date Admission Date: September 22, 2024 Subjective Patient seen and examined this afternoon. Patient on 3L of oxygen at time of encounter. patient reports she was upset earlier and became short of breath. At time of encounter patient states she had improvement in her SOB. She is complaining of cough and mucous along with some wheezing. She denied CP. Physical Exam Constitutional: WD/WN, vitals as above Eyes: PERRL, conjunctivae normal, anicteric sclerae Respiratory: +expiratory wheeze b/l in upper lung fie lds. Cardiovascular: RRR, no murmur, no edema Psychiatric: A+Ox3, euthymic affect Results & Data Results & Data Vital Signs (Past 12 Hours) Vital Signs Pulse Pulse Resp BP Pulse Ox O2 Del Method O2 Flow Rate 09/23/24 15:00 95 H 27 H 93 09/23/24 14:51 88 09/23/24 14:15 108 H 24 97 Nasal Cannula 3 09/23/24 13:57 78 16 147/68 H 96 09/23/24 13:12 82 23 152/82 H 92 09/23/24 12:06 74 11 L 140/73 95 09/23/24 11:58 Nasal Cannula 2 09/23/24 11:23 74 18 97 Nasal Cannula 3 09/23/24 11:00 70 16 140/66 97 09/23/24 10:03 76 20 96 Nasal Cannula 2 09/23/24 09:00 136/75 09/23/24 09:00 136/75 09/23/24 09:00 80 17 96 Nasal Cannula 2 09/23/24 08:09 77 17 96 Nasal Cannula 2 09/23/24 08:00 149/76 H 09/23/24 08:00 149/76 H 09/23/24 07:57 76 17 97 Nasal Cannula 2 09/23/24 07:15 78 18 97 Nasal Cannula 4 09/23/24 07:00 79 20 96 Nasal Cannula 2 09/23/24 07:00 130/71 09/23/24 07:00 130/71 09/23/24 06:57 79 09/23/24 06:12 79 16 130/63 96 09/23/24 05:00 82 18 158/79 H 96 Nasal Cannula 2 PG Care Time/CCT Total # of Minutes Spent Total Time Spent with Patient: Total time spent is greater than 50% in coordination of care (as documented) at patient's floor/unit and/or counseling patient: Coding Level of Care Code 62245 SUB INP/OBS CARE 2/35MIN Diagnoses Acute exacerbation of chronic obstructive pulmonary disease J44.1 COVID-19 U07.1
--- NOTE | 2024-09-23 17:22 | Electrocardiogram Report ---
Test Reason : Blood Pressure : */* mmHG Vent. Rate : 69 BPM Atrial Rate : 69 BPM P-R Int : 202 ms QRS Dur : 74 ms QT Int : 394 ms P-R-T Axes : 73 -3 45 degrees QTcB Int : 422 ms Normal sinus rhythm Normal ECG When compared with ECG of 11-Feb-2024 10:52, (unconfirmed) No significant change was found Confirmed by Vick Moe ([id number]) on 09/23/2024 5:22:02 PM Referred By: REFERRED SELF Confirmed By: Vick Moe
[2024-09-23] MEDS: LANTUS PER UNIT CHARGE SQ SCH (20:41)
[2024-09-23] MEDS: QUEtiapine FUMARATE 200 MG TAB PO SCH (20:45)
[2024-09-23] MEDS: MONTELUKAST SODIUM 10 MG TABLET PO SCH (20:45)
[2024-09-23] MEDS: MIRTAZAPINE TAB 15 MG TAB PO SCH (20:45)
[2024-09-23] MEDS: RIVAROXABAN 15 MG TAB PO SCH (20:46)
[2024-09-24 06:35] LABS: Hemoglobin 12.8 g/dl (12.0-16.0); Mean Corpuscular Hemoglobin 28.6 pg (25.0-34.0); Mean Corpuscular Volume 89.5 fL (80.0-100.0); Mean Platelet Volume 9.2 fL (9.4-12.4); Platelet Count 217 K/uL (130-400); RDW Standard Deviation 45.8 fL (36.4-46.3); Red Blood Count 4.47 M/uL (4.20-5.40); White Blood Count 10.71 K/ul (4.8-10.8)
[2024-09-24 07:01] LABS: BUN Creatinine Ratio 26.7 (10-20); Calcium 9.5 mg/dl (8.6-10.3); Creatinine Clr Calc Pharmacy 43.3 ml/min; Potassium 4.4 mmol/L (3.5-5.1)
[2024-09-24] MEDS: FUROSEMIDE 20 MG TAB PO PRN (08:52)
--- NOTE | 2024-09-24 13:32 | Hospitalist Progress Note ---
Date of Service September 24, 2024 Assessment & Plan (1) Acute exacerbation of chronic obstructive pulmonary disease: (2) COVID-19: Plan 79-year-old female PMHx T2DM insulin-dependent, COPD, hypothyroidism, A-fib on rivaroxaban, CHF, HTN, GERD, prior PE, KATHLEEN, MDD, and history of breast cancer (right) presenting to ED via EMS for shortness of breath and anxiety x 1 day. Patient wears 2L NC at baseline. Unclear if infectious vs COVID vs COPD. CXR w/o acute findings, BNP WNL, no leukocytosis. Pt reports to CYNDI on admission that earlier in the week she was diagnosed with COVID-19. Home meds appear to show recent Azithromycin rx (09/15/2024) x 3 days. #Acute on chronic hypoxic respiratory failure with hypoxia/COPD exacerbation/COVID-19 Presenting w/ shortness of breath x 1 day, worsening around dinnertime day of arrival; Hypoxic on admission. Likely 2/2 combination of COPD exacerbation + COVID. Reportedly dx with COVID earlier during week of admission. Is on anticoag for Afib + w/ h/o PE however, having L calf pain and LLE swelling. At this time, treating as COPD exac. w/ conjunction of COVID. Recently seen by PCP for SOB suspected related to multifactorial. - VBGs suggestive of resp acidosis (pH 7.33, pCO2 73), CO2 37, no AG -CBC w/o leukocytosis. BMP w/ stable electrolytes/kidney function - CXR no acute cardiopulmonary process alterations from prior examinations - 2L O2 at baseline rest 4L w/ activity; O2 prn; Wean as patient tolerates - COVID precautions - DuoNebs jonny, budesonide + formoterol nebs BID; IC - Dexamethasone 6mg daily - Given recent abx use, no leukocytosis, and no infectious symptoms, no additional abx added at admission - Venous Doppler LLE negative for DVT #A-fib on Xarelto/CHF/HTN Previous history of Afib during prior hospitalization - EKG on admission NSR and rate controlled - Echo 09/2022 grossly WNL; Mg 2.1 - Anticoag w/ Xarelto; Rate controlled metoprolol - Chronic HFpEF on spironolactone + lasix (prn) #T2DM H/o DMT2, insulin dependent - At home regimen Humalog 12 U TID, Lantus 15 U HS, Tirzepatide, jardiance - Hold po/SQ meds - Most recent A1C 06/2024 @ 8.2% - SSI with target BSG range 110-140mg/dL, CF 25, carb ratio 10; Lantus 15 U HS - BSG ACHS - Pharm glycemic management consult placed - appreciate assistance Chronic conditions: #MDD- Lexapro, mirtazapine, quetiapine #GERD- Pantoprazole, famotidine #Hypothyroidism- Levothyroxine Dispo: Admit VTE prophylaxis: Xarelto Admission and Anticipated Discharge Date Admission Date: September 22, 2024 Subjective Patient seen and examined this morning. Patient complaining of SOB and cough that occurs periodically. Denies CP. Physical Exam Constitutional: WD/WN, vitals as above Eyes: PERRL, conjunctivae normal, anicteric sclerae Respiratory: + wheezing b/l upper lung max. dimini shed at b/l bases Cardiovascular: RRR, no murmur, no edema Psychiatric: A+Ox3, euthymic affect Results & Data Results & Data Vital Signs (Past 12 Hours) Vital Signs Temp Pulse Pulse Resp BP Pulse Ox O2 Del Method 09/24/24 11:59 36.6 C 79 20 109/63 95 Nasal Cannula 09/24/24 11:14 78 26 H 90 Nasal Cannula 09/24/24 07:53 Nasal Cannula 09/24/24 07:32 36.6 C 71 20 147/67 H 95 Nasal Cannula 09/24/24 07:15 73 16 93 Nasal Cannula 09/24/24 05:42 67 09/24/24 03:05 36.6 C 73 16 118/66 94 Nasal Cannula 09/24/24 02:59 77 17 94 Nasal Cannula O2 Flow Rate 09/24/24 11:59 2 09/24/24 11:14 2 09/24/24 07:53 2 09/24/24 07:32 2 09/24/24 07:15 2 09/24/24 05:42 09/24/24 03:05 3 09/24/24 02:59 3 PG Care Time/CCT Total # of Minutes Spent Total Time Spent with Patient: Total time spent is greater than 50% in coordination of care (as documented) at patient's floor/unit and/or counseling patient: Coding Level of Care Code 15606 SUB INP/OBS CARE MIN Diagnoses Acute exacerbation of chronic obstructive pulmonary disease J44.1 COVID-19 U07.1
[2024-09-24] MEDS ORDERED: POLYETHYLENE (MIRALAX) 17 GM PACK PO SCH (21:00)
[2024-09-24] MEDS: DOCUSATE SODIUM 100 MG CAP PO SCH (21:33)
[2024-09-25 06:44] LABS: Hematocrit (blood only) 39.5 % (37.0-47.0); Hemoglobin 12.7 g/dl (12.0-16.0); Mean Corpuscular Hemoglobin 28.6 pg (25.0-34.0); Mean Corpuscular Hgb Conc 32.2 g/dL (32.0-36.0); Platelet Count 211 K/uL (130-400); RDW Coefficient of Variation 14.1 % (11.5-14.5); RDW Standard Deviation 45.7 fL (36.4-46.3); Red Blood Count 4.44 M/uL (4.20-5.40)
[2024-09-25 07:09] LABS: BUN Creatinine Ratio 29.2 (10-20); Calcium 9.5 mg/dl (8.6-10.3); Creatinine Clr Calc Pharmacy 47.1 ml/min; Potassium 4.2 mmol/L (3.5-5.1)
[2024-09-25 07:41] VITALS: BP 134/66; TEMP 97.9
[2024-09-25] MEDS ORDERED: POLYETHYLENE (MIRALAX) 17 GM PACK PO PRN (08:53)
[2024-09-25] MEDS ORDERED: bisacodyL 10 MG SUPP PR PRN (08:54)
--- NOTE | 2024-09-25 08:54 | Hospitalist Progress Note ---
Date of Service September 25, 2024 Assessment & Plan (1) Acute exacerbation of chronic obstructive pulmonary disease: (2) COVID-19: Plan 79-year-old female PMHx T2DM insulin-dependent, COPD, hypothyroidism, A-fib on rivaroxaban, CHF, HTN, GERD, prior PE, KATHLEEN, MDD, and history of breast cancer (right) presenting to ED via EMS for shortness of breath and anxiety x 1 day. Patient wears 2L NC at baseline. Unclear if infectious vs COVID vs COPD. CXR w/o acute findings, BNP WNL, no leukocytosis. Pt reports to CYNDI on admission that earlier in the week she was diagnosed with COVID-19. Home meds appear to show recent Azithromycin rx (09/15/2024) x 3 days. #Acute on chronic hypoxic respiratory failure with hypoxia/COPD exacerbation/COVID-19 - CXR no acute cardiopulmonary process alterations from prior examinations - 2L O2 at baseline rest 4L w/ activity; O2 prn - maintaining her baseline - DuoNebs jonny, budesonide + formoterol nebs BID; IS - Dexamethasone 6mg daily - Given recent abx use, no leukocytosis, and no infectious symptoms, no additional abx indicated - Given LE swelling checked Venous Doppler LLE - negative for DVT #A-fib on Xarelto/CHF/HTN Previous history of Afib during prior hospitalization - EKG on admission NSR and rate controlled - Echo 09/2022 grossly WNL; Mg 2.1 - Anticoag w/ Xarelto; Rate controlled metoprolol - Chronic HFpEF on spironolactone + lasix (prn) Will give PRN lasix again today to help with breathing #T2DM Home regimen Humalog 12 U TID, Lantus 15 U HS, Tirzepatide, jardiance - Held on admission - Most recent A1C 06/2024 @ 8.2% - SSI with target BSG range 110-140mg/dL, CF 25, carb ratio 10; Lantus 15 U HS - BSG ACHS - Pharm glycemic management consult placed - appreciate assistance Chronic conditions: #MDD- Lexapro, mirtazapine, quetiapine #GERD- Pantoprazole, famotidine #Hypothyroidism- Levothyroxine Dispo: continued inpatient stay, increase bowel regimen, stable for downgrade to medical - Notified by RN that pt is now feeling ready to go home, reevaluated - she is able to walk independently in the room has career center director who can pick her up from the hospital and pharmacy will deliver meds in AM. Has care givers for about ~18-20hrs a day. See D/C summary same day VTE prophylaxis: Xarelto Admission and Anticipated Discharge Date Admission Date: September 22, 2024 Subjective Mini seen lying in bed, no family present at bedside. Reports feeling about 70% better compared to baseline. Nonproductive cough. Denies CP. She lives alone but reports frequent caregivers, uses a cane at baseline. Does not think she would be interested in rehab, but reports she has not been out of bed much Last BM Tele - SR 60-70s Review of Systems Review of Systems: All systems reviewed & are unremarkable except as noted in Subjective Physical Exam Physical Exam: General: NAD, VS as above Resp: normal respiratory effort, on 2L NC, expiratory wheezing upper lung max CV: RRR, no murmur, Abd: normal bowel sounds, mild diffuse tenderness with palpation Extremities: Moves all extremities Neuro: A&O x3, Results & Data Results & Data Vital Signs (Past 12 Hours) Vital Signs Temp Pulse Pulse Resp BP Pulse Ox O2 Del Method 09/25/24 07:40 97.9 F 70 18 134/66 93 Nasal Cannula 09/25/24 07:24 Aerosol Mask 09/25/24 07:18 68 14 95 Nasal Cannula 09/25/24 05:41 69 09/25/24 03:14 76 18 96 Nasal Cannula 09/24/24 23:13 78 18 95 Nasal Cannula 09/24/24 22:46 98.2 F 73 18 132/55 L 95 Nasal Cannula 09/24/24 21:36 70 O2 Flow Rate 09/25/24 07:40 2 09/25/24 07:24 09/25/24 07:18 2 09/25/24 05:41 09/25/24 03:14 2 09/24/24 23:13 2 09/24/24 22:46 2 09/24/24 21:36 Laboratory Results cbc and chemsitry reviewed PG Care Time/CCT Total # of Minutes Spent Total Time Spent with Patient: Total time spent is greater than 50% in coordination of care (as documented) at patient's floor/unit and/or counseling patient: Coding Level of Care Code None Diagnoses Acute exacerbation of chronic obstructive pulmonary disease J44.1 COVID-19 U07.1
[2024-09-25] MEDS: DOCUSATE SODIUM/SENNA 50/8.6MG TAB PO SCH (09:05)
[2024-09-25] MEDS: POLYETHYLENE (MIRALAX) 17 GM PACK PO SCH (09:05)
--- NOTE | 2024-09-25 09:45 | Discharge Summary ---
Discharge Summary Date of Service September 25, 2024 Principal Dx & Hospital Course #1 = Principal Diagnosis (1) Acute exacerbation of chronic obstructive pulmonary disease: (2) COVID-19: Plan 79-year-old female PMHx T2DM insulin-dependent, COPD, hypothyroidism, A-fib on rivaroxaban, CHF, HTN, GERD, prior PE, KATHLEEN, MDD, and history of breast cancer (right) presenting to ED via EMS for shortness of breath and anxiety x 1 day. Patient wears 2L NC at baseline. Unclear if infectious vs COVID vs COPD. CXR w/o acute findings, BNP WNL, no leukocytosis. Pt reports to CYNDI on admission that earlier in the week she was diagnosed with COVID-19. Home meds appear to show recent Azithromycin rx (09/15/2024) x 3 days. #Acute on chronic hypoxic respiratory failure with hypoxia/COPD exacerbation/COVID-19 - CXR no acute cardiopulmonary process alterations from prior examinations Admitted after increased hypoxia, no additional abx given. LLE doppler given swelling, ruled out DVT. Mini has been stable on home requirements for >24 hours. Improved with scheduled nebs and dexamethasone. Encouraged more frequent albuterol nebs at discharge, prednisone taper prescribed. Discharged to home with health aide - continue O2 2L at rest, 4L with activity. #A-fib on Xarelto/CHF/HTN - Chronic HFpEF Previous history of Afib during prior hospitalization. SR on tele during hospital stay. Given prn lasix x2. Continue Xarelto and Metoprolol and spironolactone. #T2DM Home regimen Humalog 12 U TID, Lantus 15 U HS, Tirzepatide, jardiance - continue at discharge. BSG well controlled during admission. - Most recent A1C 06/2024 @ 8.2% Chronic conditions: #MDD- Lexapro, mirtazapine, quetiapine #GERD- Pantoprazole, famotidine #Hypothyroidism- Levothyroxine Dispo:Discharge to home today with caregivers. Pt states she would not go to rehab and I had patient ambulate in room and she was able to do so without assitive devices. reports she has a scooter and cane she uses at home. Pt is reliable and I feel she is safe for discharge to home with caregiver support. Notes For Next Care Provider Medication Changes From Visit Prednisone taper Admission HPI Per Admitting Provider 79-year-old female PMHx T2DM insulin-dependent, COPD, hypothyroidism, A-fib on rivaroxaban, CHF, HTN, GERD, prior PE, KATHLEEN, MDD, and history of breast cancer (right) presenting to ED via EMS for shortness of breath and anxiety. Patient wears 2L NC at baseline. States that today all day she has been experiencing difficulty with breathing, but around dinnertime she noticed a sudden increase which caused her more anxiety and she felt as though she was going to suffocate. Does admit to feeling feverish x 1 day but has not taken her temperature. Denying coughing, URI symptoms, or chest pain/pressure. States otherwise she has been feeling fine with exception of her left calf causing her pain earlier today, stating that it felt very hard and is more swollen than the right side. Also admits that second on left foot feels slightly numb. Denying chest pain, palpitations, abdominal pain, N/V/D/C, LUTS, additional numbness/tingling, or he adache. Earlier in the week patient believes that she had a "GI illness" and was told she had COVID at that time. Patient took all a.m. medications. Please see Dr. Gonzalez's attestation for adjustments/additions to treatment plan. Discharge Exam General: NAD, VS as above Resp: normal respiratory effort, on 2L NC, expiratory wheezing upper lung max CV: RRR, no murmur, Abd: normal bowel sounds, mild diffuse tenderness with palpation Extremities: Moves all extremities Neuro: A&O x3, Discharge Plan Discharge Items Patient Disposition: Home - Self-Care Reason For Visit: HYPOXIA, COVID Discharge Diagnosis: COVID Activity: Resume your previous activity Bathing: No limitations Non-emergency contact: Primary Care Provider Call non-emergency contact if: you have any medication questions, your symptoms worsen, your pain is not controlled and your temperature is above 101 Follow-up/Referrals: Dawood Rincon CRNP [Primary Care Provider] - (follow up 7-10 days ) Diet: Carb Consistent or DM2 Addtl Attending Provider Instructions: Mrs. Clemons, You were hospitalized after having worsening shortness of breath found to be from a COVID, COPD exacerbation. You were treated with nebulizer treatments and IV steroids and have greatly improved. You will be discharged on oral prednisone taper to start Tomorrow 09/26. Please follow the instructions on the bottle. Recommendations: - continue to use Albuterol nebulizer at home until you are feeling back to normal. Would recommend at least twice a day but you can use this every 4 hours. - continue all other inhalers and nebulizers as directed - continue miralax daily at home until bowel movements return to your normal - no changes to your home medications, continue home exercises. - prednisone taper to start 09/26 Activity: You can do normal everyday activities as your body allows. Take rest breaks if you feel tired. Do not overexert. Stop activity if you have pain, shortness of breath or feel dizzy. Follow-up appointments: Make an appointment with your primary care physician within one week of discharge. A copy of this summary will be sent to them. Every time you see your primary care physician, or any other doctor, bring your medication list, and a list of questions. CONTACT YOUR PRIMARY CARE PROVIDER if you experience any of the following: Shortness of breath or difficulty breathing Fevers or chills Feeling tired with normal activity or experiencing dizziness or fainting Difficulty following your treatment plan, or difficulty taking medications CALL 911 OR GO TO THE EMERGENCY DEPARTMENT if you experience any of the following: Severe abdominal pain or nausea/vomiting Severe chest pain, or chest pain that radiates (moves) to your jaw or arm Sudden, severe shortness of breath or difficulty breathing Thank you for allowing us to participate in your care. Pending Studies at Discharge: No Stand-Alone Forms: [facility] [employer], Smoking Cessation Medications and DC Order Prescriptions: New prednisone 20 mg tablet See Taper PO DAILY Qty: 9 0RF Taper: Taper, Blank 40 mg DAILY for 3 Days 20 mg DAILY for 3 Days Continued (DME) Oxygen Home Liters Per Minute See Rx Instructions .Route Rx Instructions: As directed- 2lpm all the time budesonide 0.5 mg/2 mL suspension for nebulization 0.5 mg inhalation BID Qty: 180 4RF ipratropium-albuterol 0.5 mg-3 mg(2.5 mg base)/3 mL solution for nebulization 3 ml inhalation Q8H PRN (Reason: shortness of breath or wheezing) Qty: 540 2RF revefenacin 175 mcg/3 mL solution for nebulization 175 mcg inhalation DAILY Qty: 90 3RF arformoterol [Brovana] 15 mcg/2 mL solution for nebulization 2 ml inhalation BID Qty: 360 4RF insulin glargine [Lantus Solostar U-100 Insulin] 100 unit/mL (3 mL) insulin pen 17 unit SUBCUT HS (DME) nebulizer and compressor Device See Rx Instructions .Route Qty: 1 0RF Rx Instructions: UTILIZE BID PRN (DME) Contour Test Strips Strip See Rx Instructions .Route Qty: 100 11RF Rx Instructions: As directed fluticasone propionate 50 mcg/actuation spray,suspension 1 spray INTRANASAL DAILY Qty: 16 5RF (DME) pen needle, diabetic [Easy Comfort Pen [place]] 32 gauge x 5/32" needle See Rx Instructions .Route Qty: 200 3RF Rx Instructions: dx e11.9 check BS up to 4 x day spironolactone 50 mg tablet 50 mg PO DAILY Qty: 90 1RF famotidine 20 mg tablet 20 mg PO QAM Qty: 90 1RF pantoprazole 40 mg tablet,delayed release (DR/EC) 40 mg PO BID Qty: 180 1RF metoprolol succinate 25 mg capsule,sprinkle,ER 24hr 25 mg PO BID Qty: 180 1RF tirzepatide 5 mg/0.5 mL pen injector 5 mg subcut .weekly 28 Days Qty: 2 2RF polysaccharide iron complex [Ferrex 150] 150 mg iron capsule 150 mg PO DAILY Qty: 180 1RF magnesium oxide 400 mg magnesium tablet 400 mg PO BID Qty: 180 1RF buspirone 5 mg tablet 5 mg PO TID PRN (Reason: anxiety) Qty: 60 1RF Xarelto 20 mg tablet 20 mg PO QAM Qty: 90 1RF levothyroxine 25 mcg tablet 25 mcg PO QAM Qty: 90 1RF albuterol sulfate 2.5 mg /3 mL (0.083 %) solution for nebulization See Rx Instructions .ROUTE .COMPLEX Qty: 180 5RF Dose Instruction: INHALE ONE VIAL VIA NEBULIZER EVERY 4 HOURS NEEDED FOR SHORTNESS OF BREATH OR WHEEZING Rx Instructions: INHALE ONE VIAL VIA NEBULIZER EVERY 4 HOURS NEEDED FOR SHORTNESS OF BREATH OR WHEEZING furosemide 20 mg tablet 20 mg PO DAILY PRN (Reason: weight gain) Qty: 30 2RF Rx Instructions: Wt gain > 5lb (DME) Portable Oxygen Misc See Rx Instructions .Route Qty: 1 0RF Rx Instructions: As directed- Wear at 2 Lpm N/C. insulin lispro [Humalog KwikPen Insulin] 100 unit/mL insulin pen 12 unit SUBCUT DAILY Rx Instructions: TID cholecalciferol (vitamin D3) 25 mcg (1,000 unit) capsule 25 mcg PO DAILY Qty: 90 2RF empagliflozin 25 mg tablet 25 mg PO DAILY Qty: 90 3RF (DME) FreeStyle Jessica 3 [place] Misc See Rx Instructions .Route Qty: 3 3RF Rx Instructions: As directed (DME) FreeStyle Jessica 3 Sensor Device See Rx Instructions .Route Qty: 3 3RF Rx Instructions: As directed quetiapine 200 mg Tablet 200 mg PO HS mirtazapine 30 mg tablet 30 mg PO HS escitalopram oxalate 10 mg Tablet 15 mg PO QAM Rx Instructions: Take 1.5 tab po every AM (total 15mg) albuterol sulfate 90 mcg/actuation HFA aerosol inhaler 2 puff INHALATION BID PRN (Reason: Wheezing/SOB) cyanocobalamin (vitamin B-12) [Vitamin B-12] 1,000 mcg tablet 1,000 mcg PO DAILY montelukast [Singulair] 10 mg tablet 10 mg PO HS Discontinued azithromycin 500 mg tablet Discharge Orders: Discharge Order (Routine); Ordered 09/25/24 Ordered By: Janey Moulton Admission Data Admit Date/Time: 09/22/24 21:51 Attending Provider: William Devries Admit Provider: Jennifer Gonzalez Primary Care Provider: Dawood Rincon Other Providers: Jennifer Gonzalez Hospital Stay Data Consultations 09/22/24 21:01 ED Decision to Admit Stat Diagnostic Imagining Performed Chest X-Ray 09/22/24 19:24 Exam(s): XR CXR 1 VIEW EXAM: XR Chest, 1 View CLINICAL HISTORY: Dyspnea. TECHNIQUE: Frontal view of the chest. COMPARISON: Portable chest single view 10/25/2023 FINDINGS: Lungs: No focal airspace consolidation, accounting for prominent overlying soft tissues. The pulmonary vasculature demonstrates no evidence for florid CHF. Pleural space: Unremarkable. No pneumothorax. No large pleural effusion. Heart: Cardiac silhouette is stable. Mediastinum: The mediastinal contours are stable, accounting for similar lordotic technique. Similar calcification and mild tortuosity of the descending aorta. The trachea is midline. Bones/joints: Unremarkable. No acute fracture. IMPRESSION: No acute cardiopulmonary process or significant alteration from the prior examination. Electronically signed by: Dawood Birch MD 09/22/24 20:24 PM Venous Doppler Study 09/22/24 21:49 Exam(s): US VENOUS LEFT LOWER EXTREMITY EXAM: US Duplex Left Lower Extremity Veins CLINICAL HISTORY: Calf pain, LLE swelling > RLE. TECHNIQUE: Real-time duplex ultrasound scan of the left lower extremity veins integrating B-mode two-dimensional vascular structure, Doppler spectral analysis, color flow Doppler imaging and compression. COMPARISON: No relevant prior studies available. FINDINGS: Deep veins: Unremarkable. No DVT in the visualized common femoral, femoral, proximal deep femoral or popliteal veins. The veins demonstrate normal color flow, are normally compressible, with normal phasic flow and/or augmentation response. The interrogated calf veins are patent. Superficial veins: Unremarkable. No thrombus in the saphenofemoral junction. Soft tissues: Subcutaneous edema noted at the calf. No loculated fluid collection. No popliteal cyst. IMPRESSION: 1. No evidence for deep vein thrombosis involving the left lower extremity. 2. Subcutaneous edema at the calf. Electronically signed by: Dawood Birhc MD 09/23/24 00:45 AM Pending Results Patient Have Any Pending Studies at Discharge: No Discharge Instructions Given to Patient (Per Discharging Provider) Dario Tim were hospitalized after having worsening shortness of breath found to be from a COVID, COPD exacerbation. You were treated with nebulizer treatments and IV steroids and have greatly improved. You will be discharged on oral prednisone taper to start Tomorrow 09/26. Please follow the instructions on the bottle. Recommendations: - continue to use Albuterol nebulizer at home until you are feeling back to normal. Would recommend at least twice a day but you can use this every 4 hours. - continue all other inhalers and nebulizers as directed - continue miralax daily at home until bowel movements return to your normal - no changes to your home medications, continue home exercises. - prednisone taper to start 09/26 Activity: You can do normal everyday activities as your body allows. Take rest breaks if you feel tired. Do not overexert. Stop activity if you have pain, shortness of breath or feel dizzy. Follow-up appointments: Make an appointment with your primary care physician within one week of discharge. A copy of this summary will be sent to them. Every time you see your primary care physician, or any other doctor, bring your medication list, and a list of questions. CONTACT YOUR PRIMARY CARE PROVIDER if you experience any of the following: Shortness of breath or difficulty breathing Fevers or chills Feeling tired with normal activity or experiencing dizziness or fainting Difficulty following your treatment plan, or difficulty taking medications CALL 911 OR GO TO THE EMERGENCY DEPARTMENT if you experience any of the following: Severe abdominal pain or nausea/vomiting Severe chest pain, or chest pain that radiates (moves) to your jaw or arm Sudden, severe shortness of breath or difficulty breathing Thank you for allowing us to participate in your care. Total Time Total Time Spent Total Time Spent (In Minutes): Time spent day of discharge 40 minutes including direct patient care, medication reconciliation, documentation, review of labs and images, and coordination of care. Coding Level of Care Code 96161 INP/OBS DISCH >30 MIN Diagnoses Acute exacerbation of chronic obstructive pulmonary disease J44.1 COVID-19 U07.1
[2024-09-25 11:25] VITALS: PULSE 71; RESP 22; O2SAT 94
[2024-09-25] MEDS ORDERED: LANTUS PER UNIT CHARGE SQ SCH (21:00)
--- NOTE | 2024-09-26 06:15 | Electrocardiogram Report ---
Test Reason : Blood Pressure : */* mmHG Vent. Rate : 69 BPM Atrial Rate : 69 BPM P-R Int : 204 ms QRS Dur : 70 ms QT Int : 402 ms P-R-T Axes : 63 -13 44 degrees QTcB Int : 430 ms Normal sinus rhythm Low voltage QRS Possible Inferior infarct Nonspecific ST abnormality Abnormal ECG When compared with ECG of 22-Sep-2024 19:24, No significant change was found Confirmed by Sushant Morales ([id number]) on 09/26/2024 6:15:38 AM Referred By: REFERRED SELF Confirmed By: Sushant Morales
== END 2024-09-25 11:45 | disposition home or self-care (01) | DRG 177 ==
LOC: ED 19:17 → SUATTDRO 21:51 → EDINP 21:51 → 2W 23:28